=== PATIENT | male | born 1945 | race Caucasian/White ===

== ENCOUNTER → 2018-03-08 09:41 | Outpatient (CLI) | payer MEDICARE, OTHER, SELFPAY | PROVIDERS: Family Provider Family Medicine; PCP Family Medicine; Visit Provider Family Medicine | DX: Z01.818 Encounter for other preprocedural examination (principal); R94.31 Abnormal electrocardiogram [ECG] [EKG] | CPT/HCPCS: 93017; 93350; J7030; A4216 ==

== ENCOUNTER 2024-10-08 12:24 | Inpatient (IN) | payer MEDICARE, SELFPAY ==
[2024-10-08 12:48] VITALS: BP 148/86; PULSE 72; RESP 14; TEMP 36.4; O2SAT 99; BMI 27.1
[2024-10-08 14:30] VITALS: PULSE 72; RESP 18; O2SAT 99
--- NOTE | 2024-10-08 14:59 | NURSING ---
Discussed follow-up appts with resident and Barbara. He thinks family will be able to take him to Cardiac Device check on 10/20/24 in [place]. He has virtual f/u with surgeon Monserrat ratliff on 10/23/24, and needs xray completed before. RN called office and they are ok with having xray completed on TCU and faxing report to office the day before. . He then has EGD with stent insertion planned for 10/29/24 with surgeon Ratliff at [facility]. He believes his dtr will be able to transport. He requested rheumatology appt be cancelled. RN called and cancelled.
--- NOTE | 2024-10-08 16:13 | CASEMGMT ---
Social Work- SW met with pt to complete initial assessment. SW introduced self and role; pt agreeable to meeting. Pt property underwriter, Barbara, present in the room; pt agreeable to Barbara being present. SW verified contacts. Pt confirmed code status. Pt reports good family support and shared that he has a dog at home that he is very close to as well. Pt lives in a ranch home with a cement ramp and plans to return home at discharge. Pt was independent at prior level of function. Pt reports previous involvement with [facility] through an agency in [place] 6+ years ago following knee surgery and would be open to HHC if needed at discharge. Pt scored 14/15 on BIMS assessment. Pt scored 1/2 on PHQ9, reporting that he has felt down about how weak he has become while in the hospital. SW remains available to follow for support and discharge planning needs. LILIYA Apodaca
[2024-10-08] MEDS: Rivaroxaban 20 MG Tablet GT (16:26)
[2024-10-08] MEDS: Jevity 1.5 1,000 ML 100 ML GT (16:39)
[2024-10-08 16:54] LABS: Bedside Glucose 119 mg/dL (74-106)
--- NOTE | 2024-10-08 19:09 | HP.PCM_ITS ---
HPI - General General Date of Admission: 10/08/24 Date of Service: 10/08/24 Chief Complaint: Here for rehabilitation. HPI Narrative 09/26/2024 Admit to [facility]. 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 Patient underwent ANTONIETTA intraoperatively. Postoperatively had a chest X-ray performed demonstrating possible pneumomediastinum. He had noncontrasted CT chest demonstrating pneumomediastinum. Patient had a CT chest with IV and PO contrast demonstrating a perforation at the posterior aspect of the GEJ concerning for esophageal perforation/injury. He underwent EGD with esophageal stent placement 150 x 23 distal end at 40cm and PET tube placement on 09/27/2024. 09/30/2024: transferred to [facility]. Self removal of NGT. Na 146. 10/01/2024: IR consulted for G-J conversion. Na 148. 10/02/2024: IR G-J conversion completed. Unsuccessful attempt at TF initiation 08/03 equipment. Na 151-D5 water ordered for mIVF. 10/03/2024: tube feeds initiated. Na 153. Over his hospitalization patient was kept NPO with enteral fees at goal via PEG/J extension, plan to convert feeds to 16 hour cycle on discharge. He will remain NPO after discharge with occasional ice chips and mouth swabs. ATB: Converted to liquid regimen of Fluconazole and Augmentin on discharge for total course of 14 days. 10/06/2024 NAEO. Hypernatremia resolved with free water flushes via J tube. NPO for esophageal perforation. Continue Zosyn, Fluconazole for emperic coverage. Protonix 40mg daily. TF increase to 65mL/hour as tolerated. Tylenol, Gabapentin 1200mg tid, Lidoderm, Voltaren gel, Dilaudid for low back pain. Home Xarelto for DVT prophylaxis. 10/08/2024 Admit to TCU with debility, here for rehabilitation, strengthening, prior to discharge home with SO. [facility] Medical History (Updated 10/08/24 @ 19:[address] Cristopher [place] MD) GERD (gastroesophageal reflux disease) Kidney stone BPH (benign prostatic hyperplasia) 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 with hyperglycemia Obstructive sleep apnea Hyperlipidemia, unspecified Essential (primary) hypertension HFrEF (heart failure with reduced ejection fraction) Sick sinus syndrome Atrial fibrillation Pneumomediastinum Esophageal perforation Debility Home Medications ?Medication ?Instructions ?Recorded ?Last Taken ?Type acetaminophen 160 mg/5 mL oral 640 mg feeding tube Q4H PRN pain 10/08/24 Unknown History elixir (scale score 1-3) amoxicillin 200 mg-potassium 22 ml feeding tube Q12H a ntibiotic 10/08/24 Unknown History clavulanate 28.5 mg/5 mL oral suspension docusate sodium 50 mg/5 mL oral 100 mg feeding tube BI D stool 10/08/24 Unknown History liquid softener esomeprazole magnesium 20 mg 40 mg feeding tube DAILY reflux 10/08/24 Unknown History capsule,delayed release (Nexium) fluconazole 40 mg/mL oral 400 mg feeding tube Q24H fun gal 10/08/24 Unknown History suspension (Diflucan) infection lidocaine 4 % topical patch 1 patch topical Q12H pain 10/08/24 Unknown History morphine 20 mg/5 mL (4 mg/mL) oral 5 mg feeding tube Q 4H PRN pain 10/08/24 Unknown History solution (scale score 7-10) rivaroxaban 20 mg tablet (Xarelto) 20 mg G-tube DAILY blood thinner 10/08/24 Unknown History Allergy/AdvReac Type Severity Reaction Status Date / Time No Known Allergies Allergy Verified 10/08/24 14:09 Family History (Updated 10/08/24 @ 19:[address] Cristopher Washington MD) Mother CVA (cerebral vascular accident) Father Diabetes Sister Diabetes Brother Myocardial infarction Brother CAD (coronary artery disease) Brother Kidney disease Brother Diabetes Surgical History (Updated 10/08/24 @ 19:[address] Cristopher Washington MD) History of electrophysiologic study History of exam under anesthesia with epidural steroid injection Status post biventricular cardiac pacemaker insertion Social History (Updated 10/08/24 @ 19:[address] Cristopher Washington MD) household members: significant other Smoking Status: Never smoker alcohol intake: never substance use type: does not use ROS Constitutional Constitutional: Reports weakness; Denies chills, fever(s) or weight gain ENT HEENT: Denies headache(s), nasal congestion or nasal discharge Cardiovascular Cardiovascular: Denies chest pain or palpitations Respiratory/Chest Respiratory/Chest: Denies cough, excessive phlegm production or shortness of breath with exertion Gastrointestinal Gastrointestinal: Denies abdominal pain, nausea or vomiting Genitourinary Genitourinary: Denies dysuria Musculoskeletal Musculoskeletal: Denies joint pain or joint swelling Integumentary Integumentary: Denies rash or wounds Neurologic Neurologic: Denies focal weakness, numbness or tingling Psychiatric Psychiatric: Denies anxiety, auditory hallucinations, depression, homicidal idea tion or suicidal ideation Vital Signs Vital Signs Vital Signs: 10/08/24 12:48 10/08/24 14:30 Temperature 97.5 F L Temperature Source Oral Pulse Rate 72 72 Pulse Rhythm Irregular Pulse Strength Normal (2+) Respiratory Rate 14 18 Respiratory Effort Normal Non-Labored Respiratory Depth Normal Respiratory Pattern Normal Blood Pressure 148/86 H Blood Pressure Mean 106 Blood Pressure Source Monitor Blood Pressure Position Semi-Fowlers Blood Pressure Location Right Arm Pulse Ox 99 99 Oxygen Delivery Method Room Air Room Air Weight Weight: 95.793 kg Body Mass Index (BMI) 27.1 Physical Exam Const alert General Appearance: cooperative HEENT normocephalic Eyes PERRL and EOMs intact bilaterally Neck supple, no JVD and no carotid bruits Resp normal respiratory effort, normal air movement and clear to auscultation bilaterally Cardio regular rate and regular rhythm GI normal to inspection, nondistended, normoactive bowel sounds, non-tender and non-distended GI Narrative: G-J tube present, left upper abdomen. Extremity normal capillary refill General Extremity: Negative for edema Skin no rashes or lesions noted General Skin Exam: no breakdown Psych affect normal Appearance: appropriate Results Medical Records Data Medical Nutrition Assessment Dietitian: Malnutrition Criteria Met Start: 10/08/24 14:45 Freq: Status: Active Protocol: Document 10/08/24 14:45 SLA (Rec: 10/08/24 14:45 SLA [email or web address]) Nutrition Malnutrition Evidence of Yes Malnutrition Exists Malnutrition (severe Acute Illness/Injury ): Evidenced By Suboptimal Energy Intake (Severe),Weight Loss (Severe) Clinical Problem Acute Disease or Injury Related Malnutrition Etiology related to esophageal perforation and inability to take oral nutrition since 09/26/24 Signs/Symptoms as evidenced by need for PEG and EN support to meet est nutritional needs Status Active Problem Recommendation Dietitian Continue TF: Jevity 1.5 x 16 hrs / night (4p-8a) w/ 100 Recommendations/ ml water flush every 4 hours. Changes Will continue to follow and monitor labs, wt, tf tolerance, etc for changes in res nutritional status and make additional rec as indicated Lab / Micro Data Labs: Laboratory Results - last 24 hr 10/08/24 16:37: POC Glucose 119 H Assessment & Plan Assessment/Plan (1) Debility: (2) Status post biventricular cardiac pacemaker insertion: (3) Esophageal perforation: (4) Pneumomediastinum: (5) Atrial fibrillation: (6) Sick sinus syndrome: (7) HFrEF (heart failure with reduced ejection fraction): (8) Essential (primary) hypertension: (9) Hyperlipidemia, unspecified: (10) Obstructive sleep apnea: (11) 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 with hyperglycemia: (12) BPH (benign prostatic hyperplasia): (13) Kidney stone: (14) GERD (gastroesophageal reflux disease): PLAN: Plan 79 year old male with below past medical history hospitalized for TV pace extraction with 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 * Debility - PT/OT. * G-J tube - ST. * Pain - Tylenol 650mg q4 prn pain (1-3), Morphine 5mg q4 prn pain (7-10), Lidoderm 1 patch td daily. * Bowel - Colace 100mg bid, Magnesium citrate 300mL daily prn. * Adult immunization - Administer pneumonia vaccine, covid vaccine, flu vaccine as appropriate. * DVT prophylaxis - on Xarelto. * Esophageal perforation s/p esophageal stent - will removal +/- replacement in near future. * Pneumomediastinum - Augmentin 800mg bid thru 10/12/2024, Fluconazole 40mg daily thru 10/13/2024. * Nutrition - Jevity 1.5 100mL/hour. * GERD - Lansoprazole 30mg daily. * Skin irritation - Calmoseptine topical bid. * Dry eyes - Artificial tears 2gtt ou q1 prn. * Atrial fibrillation - Xarelto 20mg daily.
--- NOTE | 2024-10-08 22:00 | NURSING ---
Addendum entered by Gali Wilcox 10/08/24 23:08: New orders from Dr. Washington for D5 1/2 normal saline at 75mL/hr IV, IV start, and consult to general surgery in the morning for a malfunctioning GJ tube. Continue blood glucose testing Q6HR. VORB. Original Note: Patient's gown observed to be soaked with tube feed. Upon assessment, split gauze surrounding GJ tube saturated with tube feed. Attempted to flush with water, GJ tube flushed easily, unable to determine location of leakage. Unable to draw back residual. Patient tolerated flush well, denied any discomfort. Notified Dr. Washington via secure text followed by telephone call. New orders for STAT KUB to determine proper placement of GJ tube, and page with results. VORB. Patient updated on plan of care, verbalized understanding. Call light in reach, patient denies additional needs at this time.
--- NOTE | 2024-10-08 22:13 | RAD_ITS ---
PROCEDURE: ABDOMEN SINGLE VIEW 10/08/2024 REASON FOR EXAM: CONFIRM PLACEMENT OF GJ TUBE TECHNIQUE: Single view abdomen. COMPARISON: None FINDINGS: There is a percutaneous gastrojejunostomy tube in place and appears slightly kinked at its mid section. Otherwise appears to be in normal position.. Air-filled prominent but nondilated colonic loops. Large colonic stool. RAD/Abdomen Single View IMPRESSION: See above Reading Location: [facility]
[2024-10-08 22:57] LABS: Bedside Glucose 138 mg/dL (74-106)
[2024-10-08] MEDS: Dext 5%-0.45% NS 1,000 ML 75 ML IV (23:21)
[2024-10-08] MEDS: Menthol/Lanolin/Calamine/Znox 113 GM Tube 1 APPLIC TOPICAL (23:32)
[2024-10-09 06:12] LABS: Bedside Glucose 188 mg/dL (74-106)
[2024-10-09 06:39] LABS: Absolute Lymphocyte Count 2.24 X10^3/uL (0.83-4.51); Absolute Neutrophil Count 7.8 X10^3/uL (2.0-7.7); Basophil# 0.09 X10^3/uL; Basophil% 0.8 % (0-1); Eosinophil# 0.23 X10^3/uL; Hematocrit 42.2 % (40-54); Hemoglobin 13.4 g/dL (13.0-16.5); Lymphocyte # 2.24 X10^3/ul (0.83-4.51); Lymphocyte % 19.9 % (19-41); Mean Corp Hgb Conc 31.8 g/dL (32-36); Mean Corpuscular Hgb 31.2 pg (27.0-32.0); Mean Corpuscular Volume 98.4 fL (80-94); Mean Platelet Vol. 11.4 fl (6.2-12.0); Monocyte# 0.76 X10^3/uL; Monocyte% 6.8 % (0-10); NRBC Flagged by Analyzer 0 % (0-5); Neutrophil % 69.5 % (47-70); Platelet Count 245 K/mm3 (150-450); RBC Distribution Width CV 15.5 % (11.6-14.6); Red Blood Count 4.29 M/mm3 (4.6-6.2); White Blood Count 11.2 K/mm3 (4.4-11.0)
[2024-10-09 06:59] LABS: Anion Gap 10 (5-15); BUN 11 mg/dL (4-19); BUN/Creat Ratio 13.9 RATIO (10-20); Calcium,Total 8.6 mg/dL (7.6-11.0); Carbon Dioxide 25.2 mmol/L (21.0-32.0); Chloride 105 mmol/L (98-108); Creatinine, Serum 0.77 mg/dL (0.70-1.20); EST Glomerular Filtration Rate 90 (>60); Glucose 155 mg/dL (70-99); Potassium 3.9 mmol/L (3.3-5.1); Sodium Level 140 mmol/L (133-145)
--- NOTE | 2024-10-09 07:35 | NURSING ---
Addendum entered by Chelsea Ragsdale 10/09/24 12:03: 1020- [employer] Worker would not page Dr. Khoury as he's not already following resident. Updated Dr. Khoury of situation via text. Awaiting reply. Addendum entered by Chelsea Ragsdale 10/09/24 10:16: Tube feedings restarted. Tube feeding leaking out around where smaller tube comes out of larger tube. There is a zip tie around tubes near the bumper. Updated Dr. Jones, he states he would not replace tube, resident would have to go back to . Did say maybe Dr. Khoury would be willing to change. Updated Dr. Washington of above, order to consult Dr. Khoury. Addendum entered by Chelsea Ragsdale 10/09/24 08:16: Dr. Jones came by and tightened external bumper to between 3 and 4cm on tube. He said to go ahead and try tube feeding. RN upated Dr. Washington and jewelry cutter Erin. Per Telecommunication Engineer go ahead and start tube feeds now and run for 16 hrs, then go back to regular schedule tomorrow. Per Dr. Washington, if tube feeding running ok, stop IVF. Original Note: Called consult to Dr. Jones for leaking feeding tube. Explained situation and background, discussed xray that was completed. He states he will come up and take a look.
--- NOTE | 2024-10-09 08:15 | CON.PCM.SX_ITS ---
Assessment & Plan Assessment/Plan (1) PEG tube malfunction: PLAN: The patient has a GJ tube in place. It appears that the patient has a G- tube in place with a J-tube going through it that is up tied to it. I cinched the bumper down a little bit to see if this would tighten the bumper in the stomach and prevent leaking. I asked the nurse to call me if he still leaks during today's tube feed. Landry Jones MD Pager: [facility] [address] [place] [address], [address] [place] [address] Office: HPI Consult Data Date of Consult: 10/09/24 HPI Narrative HPI Narrative: ROCIO SANDOVAL, is a 79 M who presents after esophageal perforation with a G- tube that is leaking. [facility] Medical History (Updated 10/09/24 @ 08:[address] Landry Jones MD) GERD (gastroesophageal reflux disease) Kidney stone BPH (benign prostatic hyperplasia) 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 with hyperglycemia Obstructive sleep apnea Hyperlipidemia, unspecified Essential (primary) hypertension HFrEF (heart failure with reduced ejection fraction) Sick sinus syndrome Atrial fibrillation Pneumomediastinum Esophageal perforation Debility Home Medications ?Medication ?Instructions ?Recorded ?Last Taken ?Type acetaminophen 160 mg/5 mL oral 640 mg feeding tube Q4H PRN pain 10/08/24 Unknown History elixir (scale score 1-3) amoxicillin 200 mg-potassium 22 ml feeding tube Q12H a ntibiotic 10/08/24 Unknown History clavulanate 28.5 mg/5 mL oral suspension docusate sodium 50 mg/5 mL oral 100 mg feeding tube BI D stool 10/08/24 Unknown History liquid softener esomeprazole magnesium 20 mg 40 mg feeding tube DAILY reflux 10/08/24 Unknown History capsule,delayed release (Nexium) fluconazole 40 mg/mL oral 400 mg feeding tube Q24H fun gal 10/08/24 Unknown History suspension (Diflucan) infection lidocaine 4 % topical patch 1 patch topical Q12H pain 10/08/24 Unknown History morphine 20 mg/5 mL (4 mg/mL) oral 5 mg feeding tube Q 4H PRN pain 10/08/24 Unknown History solution (scale score 7-10) rivaroxaban 20 mg tablet (Xarelto) 20 mg G-tube DAILY blood thinner 10/08/24 Unknown History Allergy/AdvReac Type Severity Reaction Status Date / Time No Known Allergies Allergy Verified 10/08/24 14:09 Family History (Updated 10/08/24 @ 19:[address] Cristopher Washington MD) Mother CVA (cerebral vascular accident) Father Diabetes Sister Diabetes Brother Myocardial infarction Brother CAD (coronary artery disease) Brother Kidney disease Brother Diabetes Surgical History (Updated 10/08/24 @ 19:[address] Cristopher Washington MD) History of electrophysiologic study History of exam under anesthesia with epidural steroid injection Status post biventricular cardiac pacemaker insertion Social History (Updated 10/08/24 @ 19:[address] Cristopher Washington MD) household members: significant other Smoking Status: Never smoker alcohol intake: never substance use type: does not use ROS Constitutional Constitutional: Denies anorexia, chills or fatigue Eyes Eyes: Denies blurry vision ENT HEENT: Denies abnormal hearing Gastrointestinal Gastrointestinal: Denies abdominal pain, nausea or vomiting Genitourinary Genitourinary: Denies change in urinary stream Integumentary Integumentary: Denies jaundice Neurologic Neurologic: Denies abnormal gait Psychiatric Psychiatric: Denies anxiety Endocrine Endocrinology: Denies flushing Physical Exam Const alert and oriented x3 HEENT normocephalic Head and Scalp: normal to inspection Eyes PERRL Resp normal respiratory effort Cardio Rate: regular rate Rhythm: regular rhythm GI soft to palpation Inspection: Negative for abdominal distention Palpation: Negative for tender Extremity normal to inspection Neuro CN's II-XII intact bilaterally Medical Records Data Medical Nutrition Assessment Dietitian: Malnutrition Criteria Met Start: 10/08/24 14:45 Freq: Status: Active Protocol: Document 10/08/24 14:45 SLA (Rec: 10/08/24 14:45 SLA [email or web address]) Nutrition Malnutrition Evidence of Yes Malnutrition Exists Malnutrition (severe Acute Illness/Injury ): Evidenced By Suboptimal Energy Intake (Severe),Weight Loss (Severe) Clinical Problem Acute Disease or Injury Related Malnutrition Etiology related to esophageal perforation and inability to take oral nutrition since 09/26/24 Signs/Symptoms as evidenced by need for PEG and EN support to meet est nutritional needs Status Active Problem Recommendation Dietitian Continue TF: Jevity 1.5 x 16 hrs / night (4p-8a) w/ 100 Recommendations/ ml water flush every 4 hours. Changes Will continue to follow and monitor labs, wt, tf tolerance, etc for changes in res nutritional status and make additional rec as indicated Lab / Micro Data 10/09/24 05:10 10/09/24 05:10 Labs: Laboratory Results - last 24 hr 10/08/24 16:37: POC Glucose 119 H 10/08/24 22:38: POC Glucose 138 H 10/09/24 05:10: WBC 11.2 H, RBC 4.29 L, Hgb 13.4, Hct 42.2, MCV 98.4 H, MCH 31.2, MCHC 31.8 L, RDW Std Deviation 55.0 H, RDW Coeff of Helen 15.5 H, Plt Count 245, MPV 11.4, Immature Gran % (Auto) 1.000 H, Neut % (Auto) 69.5, Lymph % (Auto) 19.9, [place] % (Auto) 6.8, Eos % (Auto) 2.0, Baso % (Auto) 0.8, Absolute Neuts (auto) 7.8 H, Absolute Lymphs (auto) 2.24, Nucleated RBC % 0, Sodium 140, Potassium 3.9, Chloride 105, Carbon Dioxide 25.2, Anion Gap 10, BUN 11, Creatinine 0.77, Estim Creat Clear Calc 84.20, Est GFR (MDRD) Non-Af 90, BUN/Creatinine Ratio 13.9, Glucose 155 H, Calcium 8.6 10/09/24 05:39: POC Glucose 188 H Imaging Radiology Impression KUB X-Ray 10/08/24 22:13 IMPRESSION: See above Reading Location: [facility]
[2024-10-09] MEDS: Jevity 1.5 1,000 ML 100 ML GT (08:29)
--- NOTE | 2024-10-09 08:41 | NS ---
10/09/24: Call from RN on TCU. States pt's feeding tube was leaking last night and tube feeds were held and pt didn't receive much. RN asking about starting enteral nutrition a 08:00 and running it for 16 hours so that pt gets some nourishment. Will plan to resume regular schedule for enteral nutrition tomorrow. RDN in agreement. Erin Molina RDN, LD
--- NOTE | 2024-10-09 10:07 | NURSING ---
FOUND PEG TUBE LEAKING AT WHERE THE SMALL TUBE MEETS THE LARGE TUBING. TURNED TUBE FEED OFF AND CLAMPED TUBE FEED TUBING CALLED RN TO ROOM. CLEANED PT UP WITH NURSE SUPERVISOR HELP. RN NOTIFYING DOCTORS. WILL CONTINUE TO MONITOR. FAMILY AWARE.
[2024-10-09] MEDS: 0.9% Saline Lock 10 ML Syringe IV (10:30)
[2024-10-09] MEDS: Menthol/Lanolin/Calamine/Znox 113 GM Tube 1 APPLIC TOPICAL ×2 (10:32→21:01)
[2024-10-09] MEDS: Lidocaine 5% Patch 1 PATCH TOPICAL (10:32)
--- NOTE | 2024-10-09 10:44 | NURSING ---
PER DUE NOT GIVE PT HIS MEDICATION DUE TO PT PEG TUBE IS LEAKING AND MAY NOT BE ABLE TO GET THEM THRU. RN AWARE. UPDATED PT AND FAMILY.
--- NOTE | 2024-10-09 11:16 | PHA.CONS_ITS ---
TCU RX Drug Regimen Review Subjective/Objective Subjective/Objective Subjective: 79 YOM admitted to an outside facility for pacer extraction. Hospitalization was complicated by a pneumomediastinum and a esophageal perforation. This ultimately resulted in the patient requiring J-tube placement and tube feeds. Patient admitted to TCU 10/08/24 for rehabilitation and strengthening prior to discharge home where he resides with his spouse. Objective: Allergies No Known Allergies Allergy (Verified 10/08/24 14:09) Current Medications Generic Name Dose Route Start Last Admin Trade Name Freq PRN Reason Stop Dose Admin Acetaminophen 650 mg 10/08/24 14:27 Acetaminophen 650 Mg/20 Ml Udc GT Q4H PRN PAIN 1-3 Amoxicillin/Clavulanate Potassium 800 mg 10/08/24 22:00 10/09/24 10:43 Amox/Clav 400mg/5ml Susp GT 10/12/24 22:01 Not Given BID ALENA Calamine/Phenol 1 applic 10/08/24 22:00 10/09/24 10:32 Menthol/Lanolin/Calamine/Znox 113 Gm Tube TOPICAL 1 applic BID ALENA Administration Protocol Docusate Sodium 100 mg 10/08/24 22:00 10/09/24 10:43 Docusate Sodium 100 Mg/10 Ml Udc GT Not Given BID ALENA Fluconazole 400 mg 10/09/24 10:00 10/09/24 10:43 Fluconazole Suspension 40 Mg/Ml 35 Ml Bottle GT 10/13/24 10:01 Not Given DAILY ALENA Glycerin/Hypromellose/Polyethylene 2 drp 10/08/24 12:57 Glycerin/Hypromellose/Qlt126 15 Ml Bottle EACH EYE Q1H PRN DRY EYES Enteral Nutritional Formula 1,000 mls @ 100 mls/hr 10/08/24 16:00 10/09/24 10:29 Jevity 1.5 GT 0 mls/hr .Q10H ALENA Infusion Dextrose/Sodium Chloride 1,000 mls @ 75 mls/hr 10/08/24 22:40 10/09/24 10:30 IV 75 mls/hr .[id number] ALENA Infusion Lansoprazole 30 mg 10/09/24 10:00 10/09/24 10:44 Lansoprazole 15 Mg Capsule.Dr NG Not Given DAILY ALENA Lidocaine 1 patch 10/09/24 10:00 10/09/24 10:32 Lidocaine 5% Patch TOPICAL 1 patch DAILY ALENA Administration Magnesium Citrate 300 ml 10/08/24 14:10 Magnesium Citrate 300 Ml GT X1 PRN Constipation Morphine Sulfate 5 mg 10/08/24 14:29 Morphine (Oral Solution) 10mg/0.5ml Syringe PO Q4H PRN pain (scale score 7-10) Rivaroxaban 20 mg 10/08/24 17:00 10/08/24 16:26 Rivaroxaban 20 Mg Tablet GT 20 mg DINNER ALENA Administration Sodium Chloride 10 - 40 ml 10/08/24 13:59 10/09/24 10:30 0.9% Saline Lock 10 Ml Syringe IV 10 ml UD PRN Administration SALINE FLUSH Sodium Chloride 10 - 40 ml 10/08/24 22:38 0.9% Saline Lock 10 Ml Syringe IV UD PRN SALINE FLUSH Tuberculin PPD 0.1 ml 10/16/24 10:00 Tuberculin,Purif.Prot.Deriv. 50 Tu/Ml Vial ID 10/16/24 10:01 X1 ONE Problem List PEG tube malfunction (Acute) GERD (gastroesophageal reflux disease) (Acute) Kidney stone (Acute) BPH (benign prostatic hyperplasia) (Acute) 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 with hyperglycemia (Acute) Obstructive sleep apnea (Acute) Hyperlipidemia, unspecified (Acute) Essential (primary) hypertension (Acute) HFrEF (heart failure with reduced ejection fraction) (Acute) Sick sinus syndrome (Acute) Atrial fibrillation (Acute) Pneumomediastinum (Acute) Esophageal perforation (Acute) Status post biventricular cardiac pacemaker insertion (Acute) Debility (Acute) Vital Signs Temp Pulse Resp BP Pulse Ox O2 Del Method 97.5 F L 72 18 148/86 H 99 Room Air 10/08/24 12:48 10/08/24 14:30 10/08/24 14:30 10/08/24 12:48 10/08/24 14:30 10/08/24 14:30 Oxygen Delivery Method Room Air Weight: 95.793 kg Body Mass Index (BMI) 27.1 Sodium 140 mmol/L (133-145) 10/09/24 05:10 Potassium 3.9 mmol/L (3.3-5.1) 10/09/24 05:10 Chloride 105 mmol/L (98-108) 10/09/24 05:10 Carbon Dioxide 25.2 mmol/L (21.0-32.0) 10/09/24 05:10 Anion Gap 10 (5-15) 10/09/24 05:10 BUN 11 mg/dL (4-19) 10/09/24 05:10 Creatinine 0.77 mg/dL (0.70-1.20) 10/09/24 05:10 Est GFR (MDRD) Non-Af 90 (>60) 10/09/24 05:10 BUN/Creatinine Ratio 13.9 RATIO (10-20) 10/09/24 05:10 Glucose 155 mg/dL (70-99) H 10/09/24 05:10 Assessment/Plan: 1. Pain: Lidocaine patch topically Daily, Acetaminophen 650mg GT Q4h PRN Pain 1- 10, Morphine solution 5mg PO Q4h PRN Pain 7-10. Please continue to monitor for local site irritation/redness, PRN medication usage, oversedation/constipation/respiratory depression with narcotic usage. - To date, the patient has not required any PRN medication doses of Tylenol or morphine. Patient's pain appears managed at this time. 2. Pneumomediastinum: Augmentin 800mg GT BID thru 10/12/24, Fluconazole 400mg GT daily thru 10/13/24. Please continue to monitor for fever (last 97.5, afebrile), N/V, diarrhea, renal function (CrCl 84 mL/min on 10/09), headache. 3. GERD: Prevacid 30mg GT Daily. Please continue to monitor for headache, bloating, gas. Please also encourage non-pharmacologic treatments to help minimze GERD flareups, thank you. 4. Atrial Fibrillation: Xarelto 20mg GT Dinner. Please continue to monitor for S/S bleeding/bruising, H/H (hgb 13.4, Hct 42.2 on 10/09). The patient is not currently on any rate/rhythm control medications. Per external med history, the patient had recently filled Lopressor 25mg PO Daily. Please continue to monitor closely and consider adding medication if clinically needed/appropriate, thank you (last BP 148/86, pulse 72 BPM). 5. Dry Eyes: Artificial Tears 2 gtt OU PRN. Please continue to monitor for medication effectiveness. 6. Skin Integrity: Calmoseptine topically BID. Please continue to monitor for skin redness, irritation, ulcer formation. 7. Bowel: Docusate 100mg GT BID, Magnesium Citrate 300mL GT x1 PRN. Please continue to monitor for increased/decreased constipation and/or diarrhea. If diarrhea develops, please discontinue scheduled medications. - The patient has not had a documented BM since admission (<24hrs ago). If the patient does not have a BM in the next 48-72hrs, please consider administering PRN m Assessment/Plan for indications treated with psychotropic medications: -The patient is not being maintained on any psychotropic medications at time of medication list review. Medical chart and medication regimen reviewed. The following medication irregularities or issues were identified: 1. Atrial Fibrillation: The patient is not currently on any rate/rhythm control medications. Per external med history, the patient had recently filled Lopressor 25mg PO Daily. Please continue to monitor closely and consider adding medication if clinically needed/appropriate, thank you (last BP 148/86, pulse 72 BPM). Date Date of Note: 10/09/24
--- NOTE | 2024-10-09 11:59 | NURSING ---
SSE GIVEN PER ORDER WITH POSITIVE RESULTS OF A LARGE LIQUID/SOFT BM.
[2024-10-09 12:16] LABS: Bedside Glucose 155 mg/dL (74-106)
--- NOTE | 2024-10-09 12:30 | NURSING ---
Campus Administrative Assistant Note; Activity Asset: Brennen Dwyer prefers to be called Zacarias. Zacarias is independent in his choice of daily activities. His lady friend will visit and bring him items from home if he wants them. At this time he is fine with the tv and reading. Zacarias enjoys talking w/others, he not a latter-day person however maybe talking w/implementation project manager could help. He welcomes visits w/therapy dog as well. Staff will remind him of weekly activities and respect his right to say no.
[2024-10-09 13:30] VITALS: PULSE 81; RESP 16; O2SAT 93
--- NOTE | 2024-10-09 13:32 | NURSING ---
Addendum entered by Chelsea Ragsdale 10/09/24 15:15: On phone Dr. Washington gave verbal order that if xray looks ok to re-start tube feeding at 50cc/hr, titrate up if not leaking. Updated on xray results, order to re-start feeds. Original Note: Updated Dr. Washington resident awaiting GI consult. In the meantime he gave verbal order for KUB with gastrografin to assess tube placement.
--- NOTE | 2024-10-09 13:40 | RAD_ITS ---
EXAM: XR Abdomen, 1 View CLINICAL INDICATION: PLEASE USE GASTROGRAFIN TO ASSESS GJ TUBE PLACEMEN TECHNIQUE: Frontal supine view of the abdomen/pelvis. COMPARISON: No relevant prior studies available. FINDINGS: GASTROINTESTINAL TRACT: Unremarkable. No dilation. BONES/JOINTS: Unremarkable. No acute fracture. TUBES, LINES AND DEVICES: No gastric outlet obstruction. No contrast extravasation. G-tube appears to be proper position. RAD/Abdomen Single View IMPRESSION: No gastric outlet obstruction. No contrast extravasation. G-tube appears to b e proper position. Reading [facility] [place]
[2024-10-09] MEDS: Dext 5%-0.45% NS 1,000 ML 75 ML IV (14:48)
[2024-10-09] MEDS: Tuberculin,Purif.prot.deriv. 50 TU/ML Vial 0.1 ML ID (15:10)
--- NOTE | 2024-10-09 15:18 | NURSING ---
FAMILY AND PT UPDATED ON TEST RESULTS AND THE OK TO START TUBE FEED BACK UP TO 50ML/HR. RN AWARE
[2024-10-09] MEDS: Acetaminophen 650 MG/20 ML UDC GT (16:59)
[2024-10-09] MEDS: Rivaroxaban 20 MG Tablet GT (17:01)
--- NOTE | 2024-10-09 17:24 | NURSING ---
IN PT ROOM TO CHECK ON TUBE FEEDING AND GIVE MEDS. RUNNING AT 50 ML/HR NO LEAKS AT THIS TIME. 0 RESIDUAL. MEDS GIVEN DOWN TUBE WITH NO PROBLEM. PT TOLERATED WELL WILL CONTINUE TO MONITOR. WILL LEAVE MESSAGE FOR TON SILVERMAN ON TODAYS EVENTS AND THAT PT DAUGHTER STATED PT TUB FEEDING WAS RUNNING AT 65 ML/HR AT [facility]. RN AND AWARE.
--- NOTE | 2024-10-09 17:35 | NURSING ---
PER INCREASE TUBE FEED/FLUSH TO 65ML/HR. RN AWARE WILL CONTINUE TO MONITOR.
[2024-10-09 18:06] LABS: Bedside Glucose 205 mg/dL (74-106)
--- NOTE | 2024-10-09 18:09 | EX.PCM.CON.G ---
HPI Consult Data Date of Consult: 10/09/24 HPI Narrative Reason for Consultation: Problem with tube feedings HPI Narrative: ROCIO SANDOVAL, is a 79 gentleman in rehab. 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 Patient underwent ANTONIETTA intraoperatively. Postoperatively had a chest X-ray performed demonstrating possible pneumomediastinum. He had noncontrasted CT chest demonstrating pneumomediastinum. Patient had a CT chest with IV and PO contrast demonstrating a perforation at the posterior aspect of the GEJ concerning for esophageal perforation/injury. He underwent EGD with esophageal stent placement 150 x 23 distal end at 40cm and PET tube placement on 09/27/2024. Over his hospitalization patient was kept NPO with enteral fees at goal via PEG/J extension, plan to convert feeds to 16 hour cycle on discharge. There was some question of whether his PEG -J-tube was acting appropriately. He underwent a KUB with injection of Gastrografin through the tube: RAD/Abdomen Single View IMPRESSION: No gastric outlet obstruction. No contrast extravasation. G-tube appears to be proper position. [facility] Medical History GERD (gastroesophageal reflux disease) Kidney stone BPH (benign prostatic hyperplasia) 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 with hyperglycemia Obstructive sleep apnea Hyperlipidemia, unspecified Essential (primary) hypertension HFrEF (heart failure with reduced ejection fraction) Sick sinus syndrome Atrial fibrillation Pneumomediastinum Esophageal perforation Debility Home Medications ?Medication ?Instructions ?Recorded ?Last Taken ?Type acetaminophen 160 mg/5 mL oral 640 mg feeding tube Q4H PRN pain 10/08/24 Unknown History elixir (scale score 1-3) amoxicillin 200 mg-potassium 22 ml feeding tube Q12H antibiotic 10/08/24 Unknown History clavulanate 28.5 mg/5 mL oral suspension docusate sodium 50 mg/5 mL oral 100 mg feeding tube BID stool 10/08/24 Unknown History liquid softener esomeprazole magnesium 20 mg 40 mg feeding tube DAILY reflux 10/08/24 Unknown History capsule,delayed release (Nexium) fluconazole 40 mg/mL oral 400 mg feeding tube Q24H fungal 10/08/24 Unknown History suspension (Diflucan) infection lidocaine 4 % topical patch 1 patch topical Q12H pain 10/08/24 Unknown History morphine 20 mg/5 mL (4 mg/mL) oral 5 mg feeding tube Q4H PRN pain 10/08/24 Unknown History solution (scale score 7-10) rivaroxaban 20 mg tablet (Xarelto) 20 mg G-tube DAILY blood thinner 10/08/24 Unknown History Allergy/AdvReac Type Severity Reaction Status Date / Time No Known Allergies Allergy Verified 10/08/24 14:09 Family History Mother CVA (cerebral vascular accident) Father Diabetes Sister Diabetes Brother Myocardial infarction Brother CAD (coronary artery disease) Brother Kidney disease Brother Diabetes Surgical History History of electrophysiologic study History of exam under anesthesia with epidural steroid injection Status post biventricular cardiac pacemaker insertion Social History household members: significant other Smoking Status: Never smoker alcohol intake: never substance use type: does not use ROS Constitutional Constitutional: Denies anorexia, chills or fatigue Eyes Eyes: Denies blurry vision ENT HEENT: Denies abnormal hearing Gastrointestinal Gastrointestinal: Denies abdominal pain, nausea or vomiting Genitourinary Genitourinary: Denies change in urinary stream Integumentary Integumentary: Denies jaundice Neurologic Neurologic: Denies abnormal gait Psychiatric Psychiatric: Denies anxiety Endocrine Endocrinology: Denies flushing Physical Exam Const alert and oriented x3 HEENT normocephalic Head and Scalp: normal to inspection Eyes PERRL Resp normal respiratory effort Cardio Rate: regular rate Rhythm: regular rhythm GI soft to palpation Inspection: Negative for abdominal distention Palpation: Negative for tender Extremity normal to inspection Neuro CN's II-XII intact bilaterally Medical Records Data Medical Nutrition Assessment Dietitian: Malnutrition Criteria Met Start: 10/08/24 14:45 Freq: Status: Active Protocol: Document 10/08/24 14:45 SLA (Rec: 10/08/24 14:45 SLA [id number]) Nutrition Malnutrition Evidence of Yes Malnutrition Exists Malnutrition (severe Acute Illness/Injury ): Evidenced By Suboptimal Energy Intake (Severe),Weight Loss (Severe) Clinical Problem Acute Disease or Injury Related Malnutrition Etiology related to esophageal perforation and inability to take oral nutrition since 09/26/24 Signs/Symptoms as evidenced by need for PEG and EN support to meet est nutritional needs Status Active Problem Recommendation Dietitian Continue TF: Jevity 1.5 x 16 hrs / night (4p-8a) w/ 100 Recommendations/ ml water flush every 4 hours. Changes Will continue to follow and monitor labs, wt, tf tolerance, etc for changes in res nutritional status and make additional rec as indicated Lab / Micro Data 10/09/24 05:10 10/09/24 05:10 Labs: Laboratory Results - last 24 hr 10/08/24 22:38: POC Glucose 138 H 10/09/24 05:10: WBC 11.2 H, RBC 4.29 L, Hgb 13.4, Hct 42.2, MCV 98.4 H, MCH 31.2, MCHC 31.8 L, RDW Std Deviation 55.0 H, RDW Coeff of Helen 15.5 H, Plt Count 245, MPV 11.4, Immature Gran % (Auto) 1.000 H, Neut % (Auto) 69.5, Lymph % (Auto) 19.9, [place] % (Auto) 6.8, Eos % (Auto) 2.0, Baso % (Auto) 0.8, Absolute Neuts (auto) 7.8 H, Absolute Lymphs (auto) 2.24, Nucleated RBC % 0, Sodium 140, Potassium 3.9, Chloride 105, Carbon Dioxide 25.2, Anion Gap 10, BUN 11, Creatinine 0.77, Estim Creat Clear Calc 84.20, Est GFR (MDRD) Non-Af 90, BUN/Creatinine Ratio 13.9, Glucose 155 H, Calcium 8.6 10/09/24 05:39: POC Glucose 188 H 10/09/24 11:59: POC Glucose 155 H 10/09/24 17:47: POC Glucose 205 H Imaging Radiology Impression KUB X-Ray 10/08/24 22:13 IMPRESSION: See above Reading Location: [facility] X-Ray 10/09/24 13:40 IMPRESSION: No gastric outlet obstruction. No contrast extravasation. G-tube appears to be proper position. Reading [facility] Assessment & Plan Assessment/Plan (1) PEG tube malfunction: PLAN: Recommend a CXR and KUB with gastrograffin orally. J tube seems to be functioning well.
--- NOTE | 2024-10-09 18:59 | NURSING ---
Addendum entered by Kamaljit Muniz 10/09/24 19:04: WILL CALL FAMILY AND UPDATE. Original Note: IN TO SEE PT. PLANS ON DOING A CXR/KUB WITH GASTROGRAFIN ORALLY ON 10/10/24 AROUND NOON. PT IS TO BE NPO AT 7AM. RN AWARE.
[2024-10-09] MEDS: Amox/Clav 400mg/5ml Susp 800 MG GT (21:00)
[2024-10-09] MEDS: Docusate Sodium 100 MG/10 ML UDC GT (21:01)
[2024-10-10 00:05] LABS: Bedside Glucose 160 mg/dL (74-106)
[2024-10-10 06:20] LABS: Bedside Glucose 179 mg/dL (74-106)
[2024-10-10] MEDS: Docusate Sodium 100 MG/10 ML UDC GT ×2 (08:56→22:22)
[2024-10-10] MEDS: Fluconazole Suspension 40 MG/ML 35 ML Bottle 400 MG GT (08:59)
[2024-10-10] MEDS: Amox/Clav 400mg/5ml Susp 800 MG GT ×2 (08:59→22:25)
[2024-10-10] MEDS: Lansoprazole 15 MG Capsule.DR 30 MG NG (09:00)
[2024-10-10] MEDS: Menthol/Lanolin/Calamine/Znox 113 GM Tube 1 APPLIC TOPICAL ×2 (09:00→22:24)
[2024-10-10] MEDS: Lidocaine 5% Patch 1 PATCH TOPICAL (09:00)
[2024-10-10 10:00] VITALS: RESP 16
--- NOTE | 2024-10-10 12:29 | NURSING ---
Patient with radiology
--- NOTE | 2024-10-10 12:30 | RAD_ITS ---
EXAM: GASTROGRAFIN ESOPHAGRAM CLINICAL HISTORY: RECENTLY INSERTED ESOPHAGEAL STENT FOLLOWING SURGICAL DEFECT. CHECK FOR PATENCY. COMPARISON: No relevant prior. TECHNIQUE: The patient was instructed to ingest Gastrografin while fluoroscopic evaluation of the esophagus and stomach was performed. Routine series documentation. FINDINGS: A long esophageal wall stent is noted measuring approximately 16 cm in length. There was no evidence of extraluminal extravasation of contrast. Mild delay in passage of Gastrografin through the distal stent positioned just proximal to the esophagogastric junction. Residual contrast is noted in the large bowel from recent PEG tube injection. Marked cardiomegaly. No other significant findings. RAD/Upper GI w/BA Swallow IMPRESSION: Patent esophageal wall stent with no signs of extraluminal extravasation of con trast. Reading Location: [place] [id number]
--- NOTE | 2024-10-10 13:24 | NURSING ---
pt back in room, resting in recliner chair. denies needs. management professional in visiting
[2024-10-10 13:25] LABS: Bedside Glucose 149 mg/dL (74-106)
--- NOTE | 2024-10-10 14:19 | NURSING ---
Addendum entered by Ly Lyle 10/10/24 15:26: spoke with family helper, tube feed orders changed to 300cc boluses if pt does not eat atleast 50% on meals, 100cc water flushes q4hrs. pt and family updated. Addendum entered by Chelsea Ragsdale 10/10/24 14:40: Dr. Washington aware of xray results, verbal order to start on clear liquid diet and advance as tolerated. Original Note: Updated Friend that xray results in and that family/resident would like to speak to him.
--- NOTE | 2024-10-10 14:40 | CHAPLAIN ---
Type of Pastoral Visit _x__ Initial Visit ___ Follow-up Visit ___ On-call Visit ___ General Patient Visit ___ Spiritual Assessment ___ Family Conference ___ Bereavement ___ Rapid Response ___ Code Blue ___ Other (describe below) Pastoral Care Referral From _x__ Patient ___ Family ___ Nurse ___ Physician ___ Sr Risk Management Consultant ___ Music Composer ___ Other (describe below) Sacrament/Intervention _x__ Active listening ___ Anointing ___ Orthodoxy ___ Bereavement ___ Communion _x__ Renetta exploration ___ _x__ Life review _x__ Prayer ___ Reconciliation ___ Sacrament of Sick ___ Supportive presence ___ Wedding ___ Other (describe below) Pastoral Comments patient speaks of his unexpected health issues after a 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 from a surgery; pt has a daughter and his SO in the room at this time; pt gives some life review and states his connection to a local christian; pt welcomes presence and prayer for support
[2024-10-10] MEDS: Pantoprazole Sodium 40 MG in 0.9% Normal Saline (100mL MB+) 100 ML 330 MG IV (15:06)
[2024-10-10] MEDS: 0.9% Saline Lock 10 ML Syringe IV ×2 (15:08→22:57)
[2024-10-10] MEDS: 0.9% Normal Saline (100mL Bag) 100 ML 15 ML IV (15:10)
[2024-10-10 15:21] VITALS: BP 142/70; PULSE 75; RESP 16; TEMP 36.6; O2SAT 100
[2024-10-10 16:48] LABS: Bedside Glucose 160 mg/dL (74-106)
[2024-10-10] MEDS: Rivaroxaban 20 MG Tablet GT (17:43)
--- NOTE | 2024-10-10 18:49 | NURSING ---
pt drank 50% of clear liquids tonight, jevity bolus held. pt assisted to BR x1 assist FWW
--- NOTE | 2024-10-10 19:40 | PCM.PN.BLA ---
Progress Note Patient underwent Gastrografin esophagram today. Physical Exam Const alert and oriented x3 HEENT normocephalic Head and Scalp: normal to inspection Eyes PERRL Resp normal respiratory effort Cardio Rate: regular rate Rhythm: regular rhythm GI soft to palpation Inspection: Negative for abdominal distention Palpation: Negative for tender Extremity normal to inspection Neuro CN's II-XII intact bilaterally Assessment & Plan Assessment/Plan (1) PEG tube malfunction: PLAN: J tube seems to be functioning well. (2) Esophageal perforation: PLAN: FINDINGS: A long esophageal wall stent is noted measuring approximately 16 cm in length. There was no evidence of extraluminal extravasation of contrast. Mild delay in passage of Gastrografin through the distal stent positioned just proximal to the esophagogastric junction. Residual contrast is noted in the large bowel from recent PEG tube injection. Marked cardiomegaly. No other significant findings. RAD/Upper GI w/BA Swallow IMPRESSION: Patent esophageal wall stent with no signs of extraluminal extravasation of contrast. I agree with advancing his diet as tolerated Visit Charges Inpatient E&M: 47246 SNF Subs L3
[2024-10-10 21:19] LABS: Bedside Glucose 124 mg/dL (74-106)
[2024-10-10] MEDS: Acetaminophen 650 MG/20 ML UDC GT (22:22)
[2024-10-10] MEDS: Jevity 1.5. 1,000 ML Bottle 300 ML GT (22:23)
[2024-10-11 06:28] LABS: Bedside Glucose 130 mg/dL (74-106)
[2024-10-11] MEDS: Amox/Clav 400mg/5ml Susp 800 MG GT ×2 (08:49→22:44)
[2024-10-11] MEDS: Docusate Sodium 100 MG/10 ML UDC GT (08:49)
[2024-10-11] MEDS: Lidocaine 5% Patch 1 PATCH TOPICAL (08:49)
[2024-10-11] MEDS: Fluconazole Suspension 40 MG/ML 35 ML Bottle 400 MG GT (08:50)
[2024-10-11] MEDS: Menthol/Lanolin/Calamine/Znox 113 GM Tube 1 APPLIC TOPICAL ×2 (08:50→22:46)
[2024-10-11 09:50] VITALS: BP 114/63; PULSE 73; RESP 17; TEMP 36.4; O2SAT 96
[2024-10-11] MEDS: 0.9% Saline Lock 10 ML Syringe IV ×2 (10:41→23:18)
[2024-10-11] MEDS: Pantoprazole Sodium 40 MG in 0.9% Normal Saline (100mL MB+) 100 ML 330 MG IV (10:41)
[2024-10-11 11:36] LABS: Bedside Glucose 167 mg/dL (74-106)
[2024-10-11] MEDS: Acetaminophen 650 MG/20 ML UDC GT ×2 (15:02→22:47)
[2024-10-11 16:52] LABS: Bedside Glucose 141 mg/dL (74-106)
[2024-10-11] MEDS: Rivaroxaban 20 MG Tablet GT (17:18)
[2024-10-11 21:41] LABS: Bedside Glucose 118 mg/dL (74-106)
[2024-10-11] MEDS: Jevity 1.5. 1,000 ML Bottle 300 ML GT (22:56)
[2024-10-12 06:32] LABS: Bedside Glucose 146 mg/dL (74-106)
--- NOTE | 2024-10-12 08:11 | NURSING ---
Adjunct Professor Of Voice came to this nurse asking if there was something to give patient to help with bowel motility. Dr. Washington updated N.O. received for Raglan 10mg ACHS for 5 days. Order read back.
[2024-10-12] MEDS: Lidocaine 5% Patch 1 PATCH TOPICAL (09:18)
[2024-10-12] MEDS: Amox/Clav 400mg/5ml Susp 800 MG GT ×2 (09:18→21:28)
[2024-10-12] MEDS: Fluconazole Suspension 40 MG/ML 35 ML Bottle 400 MG GT (09:18)
[2024-10-12] MEDS: Menthol/Lanolin/Calamine/Znox 113 GM Tube 1 APPLIC TOPICAL ×2 (09:19→22:09)
[2024-10-12] MEDS: Pantoprazole Sodium 40 MG in 0.9% Normal Saline (100mL MB+) 100 ML 330 MG IV (09:55)
[2024-10-12] MEDS: 0.9% Normal Saline (100mL Bag) 100 ML 330 ML IV (09:56)
[2024-10-12] MEDS: 0.9% Saline Lock 10 ML Syringe IV (09:56)
[2024-10-12 10:04] VITALS: BP 114/63; PULSE 68; RESP 18; TEMP 36.6; O2SAT 98
[2024-10-12] MEDS: Metoclopramide 10 MG/10 ML UDC GT ×3 (11:14→21:28)
[2024-10-12 11:50] LABS: Bedside Glucose 158 mg/dL (74-106)
[2024-10-12] MEDS: Rivaroxaban 20 MG Tablet GT (16:16)
[2024-10-12 16:57] LABS: Bedside Glucose 106 mg/dL (74-106)
[2024-10-12] MEDS: Jevity 1.5. 1,000 ML Bottle 300 ML GT (21:29)
[2024-10-12 22:11] LABS: Bedside Glucose 119 mg/dL (74-106)
[2024-10-13] MEDS: Metoclopramide 10 MG/10 ML UDC GT ×4 (06:03→21:41)
[2024-10-13 06:15] LABS: Bedside Glucose 137 mg/dL (74-106)
--- NOTE | 2024-10-13 08:24 | NURSING ---
Offered covid vaccine, VIS provided. Resident declines at this time.
[2024-10-13 09:39] VITALS: BP 123/59; PULSE 74; RESP 18; TEMP 36.3; O2SAT 98
[2024-10-13] MEDS: Menthol/Lanolin/Calamine/Znox 113 GM Tube 1 APPLIC TOPICAL ×2 (09:39→22:11)
[2024-10-13] MEDS: Lidocaine 5% Patch 1 PATCH TOPICAL (09:40)
[2024-10-13] MEDS: Fluconazole Suspension 40 MG/ML 35 ML Bottle 400 MG GT (09:41)
[2024-10-13] MEDS: Pantoprazole Sodium 40 MG in 0.9% Normal Saline (100mL MB+) 100 ML 333 MG IV (09:43)
[2024-10-13] MEDS: 0.9% Saline Lock 10 ML Syringe IV ×2 (09:44→22:52)
[2024-10-13 11:34] LABS: Bedside Glucose 125 mg/dL (74-106)
[2024-10-13] MEDS: Rivaroxaban 20 MG Tablet GT (16:07)
[2024-10-13 16:48] LABS: Bedside Glucose 103 mg/dL (74-106)
[2024-10-13 21:27] LABS: Bedside Glucose 124 mg/dL (74-106)
[2024-10-13] MEDS: Acetaminophen 650 MG/20 ML UDC GT (22:10)
[2024-10-13] MEDS: Jevity 1.5. 1,000 ML Bottle 300 ML GT (22:10)
[2024-10-14] MEDS: Metoclopramide 10 MG/10 ML UDC GT ×4 (06:16→22:04)
[2024-10-14 06:34] LABS: Bedside Glucose 140 mg/dL (74-106)
[2024-10-14 07:43] VITALS: BP 139/89; PULSE 100; RESP 16; TEMP 36.6; O2SAT 96
[2024-10-14] MEDS: Lidocaine 5% Patch 1 PATCH TOPICAL (09:37)
[2024-10-14] MEDS: Menthol/Lanolin/Calamine/Znox 113 GM Tube 1 APPLIC TOPICAL ×2 (09:37→22:37)
[2024-10-14] MEDS: 0.9% Saline Lock 10 ML Syringe IV (10:02)
[2024-10-14] MEDS: Pantoprazole Sodium 40 MG in 0.9% Normal Saline (100mL MB+) 100 ML 330 MG IV (10:06)
[2024-10-14] MEDS: 0.9% Normal Saline (100mL Bag) 100 ML 15 ML IV (10:28)
--- NOTE | 2024-10-14 10:29 | NURSING ---
Pt diet advanced to regular for lunch, pt willing to try to eat solid foods. starting with chicken noodle soup, sherbert & cranberry juice.
[2024-10-14 11:24] VITALS: BMI 26.3
[2024-10-14 11:26] LABS: Bedside Glucose 129 mg/dL (74-106)
--- NOTE | 2024-10-14 13:49 | NURSING ---
Called and spoke with Dr. Nash's staff to update them on testing done here and that resident tolerating a diet. They will have the nurse give TCU a call.
[2024-10-14 16:40] LABS: Bedside Glucose 125 mg/dL (74-106)
[2024-10-14] MEDS: Rivaroxaban 20 MG Tablet GT (17:45)
--- NOTE | 2024-10-14 18:13 | NURSING ---
OFFICE CALL TO GIVE INSTRUCTIONS FOR PT STENT PROCEDURE ON 10/29/24. HOLD NICKI OCTOBER 26, NPO AT MIDNIGHT 10/28/24. PT HAS TO BE AT [facility] [place] AT 6:30 AM. [DAUGHTER WILL TAKE PT] WHILE TALKING TO THE NURSE OF , WAS IN THE ROOM AND ASKED HOW PT WAS DOING ON THE TUBE FEED. THIS NURSE STATED TO THE DR THAT THE PT WAS EATING A SOFT REGULAR DIET DUE TO COMPLICATIONS WITH THE PEG TUBE LAST WEEK. THE CARLOZ HER VOICE AND YELLED WHY IS THE PT EATING ? DO YOU PEOPLE FOLLOW A PHYSICIANS ORDER? THIS NURSE STATED TO THE PT PEG TUBE WAS LEAKING. YOU ALL STARTED HIM ON 65ML/HR AND OUR DIETARY INCREASED PT TO 100 ML/HR OF JEVITY AND PEG TUBE WAS LEAKING SO WE DECREASED FEED TO 50 ML/HR FOR A FEW HOURS WITH NO LEAKING FROM PEG TUBE WHICH WAS OK'D BY OUR PHYSICIAN ON OUR FLOOR AND THEN HAD US INCREASE IT BACK TO 65 ML/HR. PEG SITE WAS LEAKING SLIGHTLY. WE THEN GOT THE APPROVAL FROM TO DO A KUB AND WOLF FOR HIS EXPERTISE WHO ALSO DOES STENTS AND WITH THE OK FROM THE PT AND FAMILY DID A EGD WITH CONTRAST TO SEE IF HIS ESOPHAGUS WAS LEAKING AND AFTER PROCEDURE IT WAS FOUND NOT TO BE LEAKING AND THE PUT IN ORDER TO ADVANCE DIET TOLERATED BUT CONTINUE TO GIVE THE TUBE FEED AT NIGHT AND CONTINUE TO MONITOR AND PT/FAMILY WAS OK WITH THAT. DR. LINDA STATED WELL ARE YOU GOING TO PUT HIM BACK ON THE TUBE FEED AND ICE CHIPS MY ORDER STATED AND WHY WOULD ANY ONE NOT FOLLOW ORDERS. THIS NURSE STATED TO WE DO FOLLOW ORDERS. BUT WHEN THE PT IS FEELING WEAKER,AND LOSING WEIGHT AND CANT GET THREW THERAPY, NOT GETTING THE PROPER NUTRITION WE DO WHAT'S BEST FOR THE PT AND WHAT THE PT WANTS. THIS NURSE ALSO STATED THAT I WILL TELL THE PT I TALKED TO YOU AND WILL ASK THE PT IF HE WOULD LIKE TO STICK WITH THE DIET OR GO BACK ON THE TUBE FEED AND ICE CHIPS FOR THE NEXT 15 DAYS YOU ORDERED AND LET HIM AND THE FAMILY DECIDE. NO RESPONSE FROM ,HER NURSE STATED OK THEN WE WILL SEE HIM ON 10/29/24 AT 6:30 AM AND WOULD YOU LIKE THE DR'S OFFICE NUMBER. THIS NURSE STATED YES I WOULD. #[phone]. CONVERSATION ENDED. THIS NURSE THEN WENT BACK AND TALKED TO PT AND DAUGHTER WAS ON PHONE,THIS NURSE EXPLAINED EVERY THING AND THE CONVERSATION SHE HAD WITH . DAUGHTER STATED WHAT DO YOU WANT TO DO DAD? PT STATED THAT HE'S REFUSING TO GO BACK ON THE TUBE FEED AND ICE CHIPS CAUSE HE DOESN'T WANT TO GO BACK WARDS. THIS NURSE STATED HE CAN CHANGE HIS MIND AT ANY TIME AND TO LET STAFF KNOW. PT STATED OK, THANK YOU. UPDATED RN AND . WENT TO SEE PT AND GAVE OPTION OF GOING BACK TO FOR PROCEDURE OR HE COULD ASK TO SEE IF HE WOULD DO PROCEDURE. PT STATED HE WOULD LIKE TO GO BACK TO AND WILL ALSO TALK TO HIS DAUGHTER.
[2024-10-14 20:30] VITALS: PULSE 70; O2SAT 98
[2024-10-14] MEDS: Docusate Sodium 100 MG/10 ML UDC GT (22:04)
[2024-10-14] MEDS: Jevity 1.5. 1,000 ML Bottle 300 ML GT (22:07)
[2024-10-15] MEDS: Metoclopramide 10 MG/10 ML UDC GT ×4 (06:11→23:01)
--- NOTE | 2024-10-15 08:10 | NURSING ---
Revenue Manager Note; MDS for 10/15/2024 Complete
[2024-10-15 09:11] VITALS: BP 135/70; PULSE 84
[2024-10-15] MEDS: Metoprolol(XL)Succ 25 MG Tablet 12.5 MG PO (09:11)
[2024-10-15] MEDS: Lidocaine 5% Patch 1 PATCH TOPICAL (09:12)
[2024-10-15] MEDS: Menthol/Lanolin/Calamine/Znox 113 GM Tube 1 APPLIC TOPICAL ×2 (09:13→23:00)
[2024-10-15] MEDS: Docusate Sodium 100 MG/10 ML UDC GT ×2 (09:13→23:00)
[2024-10-15 09:26] VITALS: BP 135/70; PULSE 84; RESP 18; TEMP 36.3; O2SAT 97
--- NOTE | 2024-10-15 09:47 | CASEMGMT ---
Social Work IDT met with patient, SO and dtr for care plan meeting. Discussed patient's progress in PT/OT/SN. Educated to [facility] insurance with NRD 10/20 and continued stay is not guaranteed with each review. Provided pt/family with written communication of insurance process and copay coverage during stay. SW inquired if SO can assist at DC. Though, pt is progressing is well. Pt has new peg tube. See nursing notes for details. SW to assist with ongoing DC planning. Josseline Richardson EMBOSSING TOOLSETTER STUDENT TEACHER
[2024-10-15] MEDS: 0.9% Saline Lock 10 ML Syringe IV ×2 (10:42→23:03)
--- NOTE | 2024-10-15 14:44 | CASEMGMT ---
Social Work SW completed BIMS () and PHQ-2 () for MDS assessment. Josseline Richardson DAY CARE ATTENDANT CLINICAL BIOCHEMIST
[2024-10-15] MEDS: Rivaroxaban 20 MG Tablet GT (16:38)
[2024-10-15 23:00] VITALS: PULSE 72; O2SAT 96
[2024-10-15] MEDS: Jevity 1.5. 1,000 ML Bottle 300 ML GT (23:05)
[2024-10-16] MEDS: Metoclopramide 10 MG/10 ML UDC GT ×4 (06:02→22:54)
[2024-10-16 06:26] LABS: Absolute Lymphocyte Count 2.11 X10^3/uL (0.83-4.51); Absolute Neutrophil Count 5.8 X10^3/uL (2.0-7.7); Basophil# 0.07 X10^3/uL; Basophil% 0.8 % (0-1); Eosinophil# 0.24 X10^3/uL; Eosinophils% 2.7 % (0-5); Hematocrit 40.9 % (40-54); Hemoglobin 13.6 g/dL (13.0-16.5); Lymphocyte # 2.11 X10^3/ul (0.83-4.51); Lymphocyte % 23.3 % (19-41); Mean Corp Hgb Conc 33.3 g/dL (32-36); Mean Corpuscular Hgb 31.7 pg (27.0-32.0); Mean Corpuscular Volume 95.3 fL (80-94); Mean Platelet Vol. 10.5 fl (6.2-12.0); Monocyte# 0.83 X10^3/uL; Monocyte% 9.2 % (0-10); NRBC Flagged by Analyzer 0 % (0-5); Neutrophil # 5.78 X10^3/uL (2.7-7.7); Neutrophil % 63.8 % (47-70); Platelet Count 266 K/mm3 (150-450); RBC Distribution Width CV 14.9 % (11.6-14.6); RBC Distribution Width SD 51.3 fl (35.1-43.9); Red Blood Count 4.29 M/mm3 (4.6-6.2); White Blood Count 9.1 K/mm3 (4.4-11.0)
[2024-10-16 06:38] LABS: Anion Gap 11 (5-15); BUN 11 mg/dL (4-19); BUN/Creat Ratio 14.3 RATIO (10-20); Calcium,Total 9.1 mg/dL (7.6-11.0); Carbon Dioxide 24.8 mmol/L (21.0-32.0); Chloride 100 mmol/L (98-108); Creatinine, Serum 0.75 mg/dL (0.70-1.20); EST Glomerular Filtration Rate 91 (>60); Glucose 139 mg/dL (70-99); Potassium 4.5 mmol/L (3.3-5.1); Sodium Level 136 mmol/L (133-145)
[2024-10-16 09:13] VITALS: BP 141/55; PULSE 88; RESP 16; TEMP 36.3; O2SAT 96
[2024-10-16 09:15] VITALS: PULSE 88
[2024-10-16] MEDS: Metoprolol(XL)Succ 25 MG Tablet 12.5 MG PO (09:15)
[2024-10-16] MEDS: 0.9% Saline Lock 10 ML Syringe IV (09:15)
[2024-10-16] MEDS: Docusate Sodium 100 MG/10 ML UDC GT ×2 (09:16→22:54)
[2024-10-16] MEDS: Lidocaine 5% Patch 1 PATCH TOPICAL (09:16)
[2024-10-16] MEDS: Menthol/Lanolin/Calamine/Znox 113 GM Tube 1 APPLIC TOPICAL ×2 (09:17→22:54)
[2024-10-16] MEDS: Tuberculin,Purif.prot.deriv. 50 TU/ML Vial 0.1 ML ID (10:46)
[2024-10-16] MEDS: Rivaroxaban 20 MG Tablet GT (17:15)
[2024-10-16] MEDS: Acetaminophen 650 MG/20 ML UDC GT (22:54)
[2024-10-16] MEDS: Jevity 1.5. 1,000 ML Bottle 300 ML GT (22:54)
[2024-10-17] MEDS: Metoclopramide 10 MG/10 ML UDC GT (06:54)
[2024-10-17] MEDS: Menthol/Lanolin/Calamine/Znox 113 GM Tube 1 APPLIC TOPICAL ×2 (08:26→22:19)
[2024-10-17 08:27] VITALS: BP 145/80; PULSE 78
[2024-10-17] MEDS: Metoprolol(XL)Succ 25 MG Tablet 12.5 MG PO (08:27)
[2024-10-17] MEDS: Docusate Sodium 100 MG Capsule PO ×2 (08:30→22:18)
[2024-10-17 08:34] VITALS: BP 145/80; PULSE 80; RESP 18; TEMP 36.6; O2SAT 96
[2024-10-17] MEDS: Metoclopramide 10 MG/10 ML UDC PO ×3 (10:09→22:18)
[2024-10-17] MEDS: Lidocaine 5% Patch 1 PATCH TOPICAL (10:09)
[2024-10-17] MEDS: BACITRACIN 15 GM Tube 1 APPLIC TOPICAL ×2 (14:57→22:18)
[2024-10-17] MEDS: Rivaroxaban 20 MG Tablet PO (16:46)
[2024-10-17] MEDS: Jevity 1.5. 1,000 ML Bottle 300 ML GT (22:18)
[2024-10-18] MEDS: Metoclopramide 10 MG/10 ML UDC PO ×4 (05:36→22:05)
[2024-10-18] MEDS: BACITRACIN 15 GM Tube 1 APPLIC TOPICAL ×3 (05:38→22:06)
[2024-10-18 05:45] VITALS: PULSE 73; O2SAT 95
[2024-10-18] MEDS: Lidocaine 5% Patch 1 PATCH TOPICAL (09:06)
[2024-10-18] MEDS: Menthol/Lanolin/Calamine/Znox 113 GM Tube 1 APPLIC TOPICAL ×2 (09:06→22:05)
[2024-10-18] MEDS: Docusate Sodium 100 MG Capsule PO ×2 (09:06→22:05)
[2024-10-18 09:07] VITALS: PULSE 69
[2024-10-18] MEDS: Metoprolol(XL)Succ 25 MG Tablet 12.5 MG PO (09:07)
[2024-10-18] MEDS: Magnesium Citrate 300 ML PO (09:32)
[2024-10-18 09:49] VITALS: BP 125/64; PULSE 69; RESP 16; TEMP 36.3; O2SAT 95
--- NOTE | 2024-10-18 10:12 | NURSING ---
N.O. per Dr. Washington for Melatonin 10mg HS, for insomnia.
[2024-10-18] MEDS: Rivaroxaban 20 MG Tablet PO (16:53)
[2024-10-18] MEDS: MELATONIN 10 MG TABLET PO (22:05)
[2024-10-18] MEDS: Jevity 1.5. 1,000 ML Bottle 300 ML GT (22:13)
[2024-10-19] MEDS: BACITRACIN 15 GM Tube 1 APPLIC TOPICAL ×3 (06:11→21:48)
[2024-10-19] MEDS: Metoclopramide 10 MG/10 ML UDC PO ×4 (06:12→21:52)
[2024-10-19 09:30] VITALS: PULSE 75
[2024-10-19] MEDS: Metoprolol(XL)Succ 25 MG Tablet 12.5 MG PO (09:30)
[2024-10-19] MEDS: Lidocaine 5% Patch 1 PATCH TOPICAL (09:30)
[2024-10-19] MEDS: Docusate Sodium 100 MG Capsule PO ×2 (09:30→21:49)
[2024-10-19] MEDS: Menthol/Lanolin/Calamine/Znox 113 GM Tube 1 APPLIC TOPICAL ×2 (09:31→21:48)
[2024-10-19 10:13] VITALS: BP 121/63; PULSE 75; RESP 18; TEMP 36.6; O2SAT 96
--- NOTE | 2024-10-19 11:25 | NURSING ---
Pt. c/o abdominal pain and discomfort. This nurse assessed abdomen. Bowel Sounds active x4 quadrants, abdomen firm x4 quadrants, and tenderness to upper quadrants. Split gauze changed around GJ tube. Yellow/Green drainage noted on gauze. Dr. Washington updated on this nurses findings. N.O. to culture drainage around GJ tube insertion site, schedule Barium Swallow study, and order CT scan of Abdomen and Pelvis with contrast.
--- NOTE | 2024-10-19 11:30 | NURSING ---
This nurse called insurance company to get precertification for CT scan. Unable to get precertification due to company closure on this day.
[2024-10-19] MEDS: Pantoprazole Sodium 40 MG Tablet PO ×2 (11:49→21:49)
[2024-10-19] MEDS: Sucralfate 1 GM Tablet PO ×2 (16:56→21:49)
[2024-10-19] MEDS: Rivaroxaban 20 MG Tablet PO (16:56)
[2024-10-19] MEDS: MELATONIN 10 MG TABLET PO (21:49)
[2024-10-19] MEDS: Acetaminophen 325 MG Tablet 650 MG PO (22:06)
[2024-10-20] MEDS: Acetaminophen 325 MG Tablet 650 MG PO (05:00)
[2024-10-20] MEDS: BACITRACIN 15 GM Tube 1 APPLIC TOPICAL ×3 (05:20→21:18)
--- NOTE | 2024-10-20 08:15 | NURSING ---
pt off unit to xray at this x via WC
--- NOTE | 2024-10-20 08:20 | RAD_ITS ---
PROCEDURE: ABDOMEN SINGLE VIEW 10/20/2024 REASON FOR EXAM: CONSTIPATION. TECHNIQUE: Single view abdomen. COMPARISON: Comparison is made with prior study dated October 08, 2024. FINDINGS: Bowel gas: Moderate constipation identified with fecal material distributed throughout the colon. No evidence of bowel obstruction. A pigtail catheter is seen within the distal body of the stomach. Esophageal stent is seen. Calcifications: No suspicious calcifications. Bones: There are degenerative changes of the spine. Other: RAD/Abdomen Single View IMPRESSION: Large amount of fecal material is seen in the colon. A pigtail catheter seen with the tip in the distal stomach. Esophageal stent i s also visualized. Reading Location: [facility]
--- NOTE | 2024-10-20 08:30 | RAD_ITS ---
PROCEDURE: UPPER GI W/BA SWALLOW10/20/2024 REASON FOR EXAM: ABDOMINAL PAIN AND DISCOMFORT Esophageal stent. TECHNIQUE: History of prior perforation of the esophagus. CONTRAST: Gastrografin and water. Fluoroscopy: 95 seconds 14.9 mGy. One or more dose reduction techniques were used (e.g., Automated exposure control, adjustment of the mA and/or kV according to patient size, use of iterative reconstruction technique). COMPARISON: Comparison is made with prior study dated October 10, 2024. FINDINGS: The patient ingested Gastrografin. There is evidence of an indwelling Wallstent involving the mid and distal esophagus. The stent is patent. No evidence of extravasation. The patient ingested a 12 mm tablet the barium. The tablet is trapped at the gastroesophageal junction. Contrast is seen within the stomach. RAD/Upper GI w/BA Swallow IMPRESSION: Stable examination. Reading Location: [place] [address]
--- NOTE | 2024-10-20 10:21 | NURSING ---
pt LT abdomen distended, pt not feeling well or eating well. KUB & barium swallow done this AM. KUB showing pt constipated, SSE given per order. PO lactulose ordered as well, but pt going to pacer check today at 2p. holding off on lactulose d/t f/u appt today, will give on return from appt today. pt on toilet at this time, will monitor for good results. Dr Khoury updated on pt changing mind wanting him to replace/or remove esophageal stent, pt changed mind about going back to [facility]. Dr Khoury agreeable.
--- NOTE | 2024-10-20 10:30 | MDS.RN ---
Information for the MDS was obtained from review of the clinical record, interview of resident, staff, and direct observation of resident?s care.
--- NOTE | 2024-10-20 10:39 | NURSING ---
Clarified with Dr. Khoury that resident ok to eat today, no procedure. He also states he will be ok removing stent, will need to see what size stent in place.
[2024-10-20 10:58] VITALS: BP 101/58; PULSE 80; RESP 15; TEMP 36.3; O2SAT 97
[2024-10-20] MEDS: Lidocaine 5% Patch 1 PATCH TOPICAL (11:01)
[2024-10-20 11:03] VITALS: PULSE 80
[2024-10-20] MEDS: Pantoprazole Sodium 40 MG Tablet PO ×2 (11:03→21:22)
[2024-10-20] MEDS: Metoprolol(XL)Succ 25 MG Tablet 12.5 MG PO (11:03)
[2024-10-20] MEDS: Metoclopramide 10 MG/10 ML UDC PO ×3 (11:04→21:20)
[2024-10-20] MEDS: Menthol/Lanolin/Calamine/Znox 113 GM Tube 1 APPLIC TOPICAL ×2 (11:05→21:16)
--- NOTE | 2024-10-20 12:06 | NURSING ---
Clinical info faxed to [employer] in attempt to receive auth for abdomen/pelvis CT scan w/ contrast. Scan approved, auth #[id number].
--- NOTE | 2024-10-20 13:18 | NURSING ---
daughter here to take pt to [facility] for pacer check appt. pt refusing any medications at this time will catch him up when back.
[2024-10-20] MEDS: Sucralfate 1 GM Tablet PO ×3 (13:20→21:20)
--- NOTE | 2024-10-20 13:36 | NURSING ---
pt off unit to appt via WC, daughter transporting
--- NOTE | 2024-10-20 16:25 | NURSING ---
pt returned from appt
[2024-10-20] MEDS: Lactulose 20 GM/30 ML UDC PO (16:39)
[2024-10-20] MEDS: Rivaroxaban 20 MG Tablet PO (16:40)
--- NOTE | 2024-10-20 16:54 | NURSING ---
pt starting on contrast bottle one at this time for CT of Abdomen/pelvis tongiht at 8pm. pt unable to drink nulytely at this time.
--- NOTE | 2024-10-20 17:56 | NURSING ---
pt starting on 2nd bottle of contrast at this time
--- NOTE | 2024-10-20 18:24 | PCM.PN.BLA ---
Progress Note I was asked to see this patient for esophageal stent removal. He has been eating without any problems with esophageal stent placement. Physical Exam Const alert and oriented x3 HEENT normocephalic Head and Scalp: normal to inspection Eyes PERRL Resp normal respiratory effort Cardio Rate: regular rate Rhythm: regular rhythm GI soft to palpation Inspection: Negative for abdominal distention Palpation: Negative for tender Extremity normal to inspection Neuro CN's II-XII intact bilaterally Assessment & Plan Assessment/Plan (1) PEG tube malfunction: PLAN: J tube seems to be functioning well. (2) Esophageal perforation: PLAN: I will see what esophageal stents we have available to see if he can be removed and replaced if needed. N.p.o. past midnight. Visit Charges Inpatient E&M: [id number] [facility] Subs L3
[2024-10-20] MEDS: Electrolyte Solution/Peg's 4000 ML 1000 ML GT (21:18)
[2024-10-20] MEDS: Senna/Docusate Sodium 1 Tablet 2 TABLET PO (21:20)
[2024-10-20] MEDS: MELATONIN 10 MG TABLET PO (21:23)
[2024-10-21] MEDS: Metoclopramide 10 MG/10 ML UDC PO ×3 (06:05→21:39)
[2024-10-21] MEDS: Sucralfate 1 GM Tablet PO ×3 (06:05→21:37)
[2024-10-21] MEDS: BACITRACIN 15 GM Tube 1 APPLIC TOPICAL ×3 (06:06→21:34)
[2024-10-21] MEDS: 0.9% Saline Lock 10 ML Syringe IV ×2 (06:10→21:41)
--- NOTE | 2024-10-21 07:43 | RAD_ITS ---
EXAM: XR Abdomen, 1 View CLINICAL INDICATION: CONSTIPATION, EPIGASTRIC ABDOMINAL PAIN. TECHNIQUE: Frontal supine view of the abdomen/pelvis. COMPARISON: No relevant prior studies available. FINDINGS: GASTROINTESTINAL TRACT: Contrast is in the colon. No dilation. BONES/JOINTS: Unremarkable. No acute fracture. TUBES, LINES AND DEVICES: Probable G-tube. RAD/Abdomen Single View IMPRESSION: Nonobstructive bowel gas pattern. Reading Location: [facility]
[2024-10-21 09:42] VITALS: BMI 26.0
--- NOTE | 2024-10-21 10:37 | NURSING ---
Spoke with Corin at Dr. Nash's office. Updated her that resident getting egd and stent removed here, she can DC future appts with them. She said she should pass that along to the nurse and if they have any questions or need clarification they will call TCU.
[2024-10-21 10:38] VITALS: BP 129/77; PULSE 72; RESP 18; TEMP 36.4; O2SAT 94
[2024-10-21 13:30] VITALS: PULSE 62; RESP 18; O2SAT 92
[2024-10-21 14:01] VITALS: BP 133/70; PULSE 79
[2024-10-21] MEDS: Metoprolol(XL)Succ 25 MG Tablet 12.5 MG PO (14:01)
[2024-10-21] MEDS: Magnesium Citrate 300 ML PO (14:10)
--- NOTE | 2024-10-21 14:15 | NURSING ---
PT PROCEDURE WITH WAS CANCELED TODAY. PT WILL NOW HAVE EGD WITH TOMORROW 10/22/24. PER PT IS ON CLEAR LIQUIDS TILL MIDNIGHT AND THEN WILL BE NPO TILL AFTER SURGERY. OK TO GIVE HEART AND BP MEDS 10/22/24. RN AWARE
[2024-10-21] MEDS: Menthol/Lanolin/Calamine/Znox 113 GM Tube 1 APPLIC TOPICAL (21:36)
[2024-10-21] MEDS: Ciprofloxacin 500 MG Tablet PO (21:38)
[2024-10-21] MEDS: MELATONIN 10 MG TABLET PO (21:38)
[2024-10-21] MEDS: Pantoprazole Sodium 40 MG Tablet PO (21:39)
[2024-10-21] MEDS: Senna/Docusate Sodium 1 Tablet 2 TABLET PO (21:40)
[2024-10-22] MEDS: BACITRACIN 15 GM Tube 1 APPLIC TOPICAL ×2 (05:24→13:39)
[2024-10-22 06:17] VITALS: PULSE 76; O2SAT 97
[2024-10-22 10:20] VITALS: BP 112/66; PULSE 79
[2024-10-22] MEDS: Metoprolol(XL)Succ 25 MG Tablet 12.5 MG PO (10:20)
[2024-10-22 10:23] VITALS: BP 112/66; PULSE 79; RESP 20; TEMP 36.2; O2SAT 98
[2024-10-22] MEDS: 0.9% Saline Lock 10 ML Syringe IV (10:25)
--- NOTE | 2024-10-22 14:23 | NURSING ---
PATIENT LEFT BY BED AT 1410, FOR EGD WITH FRIEND FAMILY BY PATIENTS SIDE.
[2024-10-22] MEDS: Metoclopramide 10 MG/10 ML UDC PO ×2 (18:01→21:39)
[2024-10-22] MEDS: Sucralfate 1 GM Tablet PO ×2 (18:02→21:39)
--- NOTE | 2024-10-22 18:04 | NURSING ---
PT RETURNED TO FLOOR BY BED AT [address] BATISTA. REMOVED PT ESOPHAGUS STENT AND REMOVED THE PEG TUBE. ICE CHIPS TILL 1999 THEN CAN GO TO CLEAR LIQUIDS THREW TOMORROW UNTIL COMES TO SEE PT ON 10/23/24. DRESSING TO MID ABDOMINAL SITE WERE PEG TUBE WAS IS TO STAY ON FOR 2 DAYS THEN CHANGE TO A DRY DRESSING UNTIL HEALED,CHANGE DAILY . NO SHOWER FOR 2 DAYS. PT IS DOING WELL AT THIS TIME,ICE CHIPS GIVEN,FAMILY BY HIS SIDE. WILL CONTINUE TO MONITOR.
[2024-10-22] MEDS: Pantoprazole Sodium 40 MG Tablet PO (21:38)
[2024-10-22] MEDS: Senna/Docusate Sodium 1 Tablet 2 TABLET PO (21:38)
[2024-10-22] MEDS: Ciprofloxacin 500 MG Tablet PO (21:39)
[2024-10-22] MEDS: MELATONIN 10 MG TABLET PO (21:39)
[2024-10-22] MEDS: Menthol/Lanolin/Calamine/Znox 113 GM Tube 1 APPLIC TOPICAL (21:44)
[2024-10-23 05:59] LABS: Absolute Lymphocyte Count 2.27 X10^3/uL (0.83-4.51); Basophil# 0.05 X10^3/uL; Basophil% 0.7 % (0-1); Eosinophil# 0.27 X10^3/uL; Eosinophils% 3.7 % (0-5); Hematocrit 42.8 % (40-54); Lymphocyte # 2.27 X10^3/ul (0.83-4.51); Lymphocyte % 31.4 % (19-41); Mean Corp Hgb Conc 32.7 g/dL (32-36); Mean Corpuscular Hgb 31.9 pg (27.0-32.0); Mean Corpuscular Volume 97.5 fL (80-94); Mean Platelet Vol. 10.3 fl (6.2-12.0); Monocyte# 0.59 X10^3/uL; Monocyte% 8.2 % (0-10); NRBC Flagged by Analyzer 0 % (0-5); Neutrophil # 4.01 X10^3/uL (2.7-7.7); Neutrophil % 55.4 % (47-70); Platelet Count 253 K/mm3 (150-450); RBC Distribution Width CV 14.3 % (11.6-14.6); RBC Distribution Width SD 51.6 fl (35.1-43.9); Red Blood Count 4.39 M/mm3 (4.6-6.2); White Blood Count 7.2 K/mm3 (4.4-11.0)
[2024-10-23] MEDS: Sucralfate 1 GM Tablet PO (06:33)
[2024-10-23] MEDS: Metoclopramide 10 MG/10 ML UDC PO (06:33)
[2024-10-23 06:39] LABS: Anion Gap 11 (5-15); BUN 12 mg/dL (4-19); BUN/Creat Ratio 14.2 RATIO (10-20); Calcium,Total 9.3 mg/dL (7.6-11.0); Carbon Dioxide 26.1 mmol/L (21.0-32.0); Chloride 100 mmol/L (98-108); Creatinine, Serum 0.86 mg/dL (0.70-1.20); EST Glomerular Filtration Rate 87 (>60); Estimated Creatinine Clearance 78.32 ml/min (50-250); Glucose 142 mg/dL (70-99); Potassium 4.6 mmol/L (3.3-5.1); Sodium Level 137 mmol/L (133-145)
[2024-10-23] MEDS: Ciprofloxacin 500 MG Tablet PO ×2 (08:51→21:10)
[2024-10-23] MEDS: Senna/Docusate Sodium 1 Tablet 2 TABLET PO ×2 (08:51→21:10)
[2024-10-23] MEDS: Menthol/Lanolin/Calamine/Znox 113 GM Tube 1 APPLIC TOPICAL ×2 (08:52→21:08)
[2024-10-23 08:54] VITALS: PULSE 72
[2024-10-23] MEDS: Metoprolol(XL)Succ 25 MG Tablet 12.5 MG PO (08:54)
[2024-10-23 09:51] VITALS: BP 127/63; PULSE 72; RESP 17; TEMP 36.4; O2SAT 99
[2024-10-23] MEDS: Rivaroxaban 20 MG Tablet PO (17:09)
[2024-10-23 21:00] VITALS: PULSE 80; O2SAT 96
--- NOTE | 2024-10-23 21:02 | PCM.PN.BLA ---
Progress Note Patient underwent egd with removal of esophageal stent and removal of peg tube. Contrast with fluoroscopy did not reveal any extravasation of contrast in the peritoneum. Physical Exam Const alert, oriented x3, no apparent distress and healthy appearing General Appearance: cooperative GI normal to inspection, nondistended, normoactive bowel sounds, soft to palpation, non-tender and non-distended Percussion: normal to percussion Rectal Exam: deferred Assessment & Plan Assessment/Plan (1) Esophageal perforation: PLAN: Advance diet as tolerated Visit Charges Inpatient E&M: 54777 SNF Subs L3
[2024-10-23] MEDS: 0.9% Saline Lock 10 ML Syringe IV (21:07)
[2024-10-23] MEDS: MELATONIN 10 MG TABLET PO (21:10)
[2024-10-24 06:35] VITALS: PULSE 78; O2SAT 97
[2024-10-24] MEDS: Menthol/Lanolin/Calamine/Znox 113 GM Tube 1 APPLIC TOPICAL ×2 (10:20→20:04)
[2024-10-24] MEDS: Lidocaine 5% Patch 1 PATCH TOPICAL (10:21)
[2024-10-24] MEDS: Ciprofloxacin 500 MG Tablet PO ×2 (10:21→20:08)
[2024-10-24 10:23] VITALS: BP 116/69; PULSE 72
[2024-10-24] MEDS: Metoprolol(XL)Succ 25 MG Tablet 12.5 MG PO (10:23)
[2024-10-24] MEDS: 0.9% Saline Lock 10 ML Syringe IV ×2 (10:29→20:09)
[2024-10-24 10:38] VITALS: BP 116/69; PULSE 72; RESP 18; TEMP 36.1; O2SAT 95
--- NOTE | 2024-10-24 12:34 | CASEMGMT ---
Addendum entered by Josseline Richardson 10/24/24 12:56: Consulted with nursing and pt received EGD during stay and is swallowing well. No needs for ST. Original Note: Social Work Insurance issued LCD 10/26, DC 10/27. SW spoke with pt at bedside. Dtr present as well. SW provided NOMNC to pt and educated to appeal rights. Pt verbalized understanding and denied appeal. Pt is agreeable to DC. Dtr confirmed she and other family/friends will be routinely checking in on pt. SW offered skilled HHC or OP therapy. Pt and dtr prefers OP therapy. SW provided verbal list of options. Pt chose [facility]. SW to place referral for PT/ST. Dtr to transport to [facility] and at [place]. Pt denied DME needs. - Faxed referral to [facility] for OP therapy Plan: DC home 10/27, [facility] outpatient PT/ST Josseline Richardson [employer]CEL[employer] BUILDUP ASSISTANT SOLAR SALES ADVISOR
--- NOTE | 2024-10-24 12:39 | CASEMGMT ---
Social Work SW completed BIMS () and PHQ-9 () for MDS assessment. Pt is looking forward to going home, but mood has declined since admission. Josseline Richardson [employer]
--- NOTE | 2024-10-24 15:19 | DS.PCM_ITS ---
Providers Date of Admission: 10/08/24 Primary Care Physician: Dr. Santi Mercado MD Consultations 10/09/24 08:00 Consult: General Surgery Routine Consulting Provider: Landry Jones Reason for Consult: malfunctioning G-J Tube EMERGENT Consult: No Notified: Yes Date Notified: 10/09/24 Time Notified: 07:40 Method of Notification: Verbal 10/09/24 10:17 Consult: Gastroenterology Routine Consulting Provider: [facility] Reason for Consult: Leaking GJ tube EMERGENT Consult: No Notified: Yes Date Notified: 10/09/24 Time Notified: 10:18 Method of Notification: Text Reason For Visit: ESOPHAGEAL PERFORATION Diagnosis Discharge Diagnosis (1) Esophageal perforation: Status: Acute Code(s): K22.3 - Perforation of esophagus Plan 79 year old male with below past medical history 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 * Debility - PT/OT. * G-J tube - ST. * Pain - Tylenol 650mg q4 prn pain (1-3), Morphine 5mg q4 prn pain (7-10), Lidoderm 1 patch td daily. * Bowel - Colace 100mg bid, Magnesium citrate 300mL daily prn. * Adult immunization - Administer pneumonia vaccine, covid vaccine, flu vaccine as appropriate. * DVT prophylaxis - on Xarelto. * Esophageal perforation s/p esophageal stent - will removal +/- replacement in near future. * Pneumomediastinum - Augmentin 800mg bid thru 10/12/2024, Fluconazole 40mg daily thru 10/13/2024. * Nutrition - Jevity 1.5 100mL/hour. * GERD - Lansoprazole 30mg daily. * Skin irritation - Calmoseptine topical bid. * Dry eyes - Artificial tears 2gtt ou q1 prn. * Atrial fibrillation - Xarelto 20mg daily. Medications at Discharge Home Medications acetaminophen 160 mg/5 mL oral elixir 640 mg feeding tube Q4H PRN pain (scale score 1-3) 10/08/24 amoxicillin 200 mg-potassium clavulanate 28.5 mg/5 mL oral suspension 22 ml feeding tube Q12H antibiotic 10/08/24 docusate sodium 50 mg/5 mL oral liquid 100 mg feeding tube BID stool softener 10/08/24 esomeprazole magnesium 20 mg capsule,delayed release (Nexium) 40 mg feeding tube DAILY reflux 10/08/24 fluconazole 40 mg/mL oral suspension (Diflucan) 400 mg feeding tube Q24H fungal infection 10/08/24 lidocaine 4 % topical patch 1 patch topical Q12H pain 10/08/24 morphine 20 mg/5 mL (4 mg/mL) oral solution 5 mg feeding tube Q4H PRN pain (scale score 7-10) 10/08/24 rivaroxaban 20 mg tablet (Xarelto) 20 mg G-tube DAILY blood thinner 10/08/24 Hospital Course Operations None Procedures EGD Summary of Care Provided Minutes Spent on Discharge: 35 Hospital Course: 79 year old male with below past medical history 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 10/22/2024 Dr. Khoury EGD: Findings: An esophageal stent was found in the entire esophagus. Stent removal was accomplished with a jumbo forceps. Full-strength contrast was injected through the scope and with the use of fluoroscopy no contrast was seen leaking out of the esophagus. No perforation was seen. There was a presence of a large hiatal hernia. There was evidence of an intact gastrostomy with a patent G-tube present in the gastric body. This was characterized by healthy appearing mucosa. The PEG required removal because it was no longer necessary. The PEG was cut externally, grasped, and removed with the scope. Removal was easily accomplished. No gross lesions were noted in the entire examined duodenum. Non-severe esophagitis with no bleeding was found 27 to 37 cm from the incisors. A large hiatal hernia was present. Impression: - Pre-existing esophageal stent, removed. - Intact gastrostomy with a patent G-tube present characterized by healthy appearing mucosa. - No gross lesions in the entire examined duodenum. - The PEG was cut externally, grasped, and removed with the scope because it was no longer necessary. Discharge home 10/27/2024, [facility] outpatient PT/ST. Physical Exam Const alert General Appearance: cooperative HEENT normocephalic Eyes PERRL and EOMs intact bilaterally Neck supple, no JVD and no carotid bruits Resp normal respiratory effort, normal air movement and clear to auscultation bilaterally Cardio regular rate and regular rhythm GI normal to inspection, nondistended, normoactive bowel sounds, non-tender and non-distended Extremity normal capillary refill General Extremity: Negative for edema Skin no rashes or lesions noted General Skin Exam: no breakdown Psych affect normal Appearance: appropriate Medical Records Data Medical Nutrition Assessment Dietitian: Malnutrition Criteria Met Start: 10/08/24 14:45 Freq: Status: Active Protocol: Document 10/22/24 11:33 SLA (Rec: 10/22/24 11:33 SLA [id number]) Nutrition Malnutrition Evidence of Yes Malnutrition Exists Malnutrition (severe Acute Illness/Injury ): Evidenced By Suboptimal Energy Intake (Severe),Weight Loss (Severe) Clinical Problem Acute Disease or Injury Related Malnutrition Etiology related to esophageal perforation and inability to take oral nutrition since 09/26/24 - advanced to regular diet 10/14 w/ avg po intake ~ 50% Signs/Symptoms as evidenced by need for PEG and EN supplemental support to meet est nutritional needs while po diet advanced and res w/ 3% unintended wt loss since adm. Status Active Problem Recommendation Dietitian Continue bolus feeds - if intake <50% then bolus w/ 300 Recommendations/ ml Jevity 1.5 after meals and provide HS feeding of Changes 300 ml Jevity 1.5 to provide 450 hardik/19 gm/ 228 ml free water/bolus feed. Flush w/ 100 ml water after each bolus feed. Continue liberal regular diet w/ and increase to 8 oz glucerna shake and magic cup w/ meals for increased nutrition if consumed. Will continue to follow and monitor labs, wt, tf tolerance, etc for changes in res nutritional status and make additional rec as indicated Weight / BMI Weight Weight: 92.079 kg Body Mass Index (BMI) 26.0 ABG / Lab / Microbiology Data 10/23/24 05:15 10/23/24 05:15 Microbiology: Microbiology 10/19/24 11:00 Exudate Gram Stain - Final 10/19/24 11:00 Exudate Wound Culture - Final Serratia marcescens D/C Instructions Discharge Diet: No restrictions Discharge Activity: Return to Normal Activity, May Shower and Use Walker Weight Bearing Status: Weight bearing as tolerated Call your doctor if you observe: Fever of 101 or Higher, Inability to urinate, Inability to have a bowel movement, Shortness of breath, Dizziness, Fainting spells, Swelling in the ankles, Chest pain and Uncontrolled pain DC O2, CPAP, BIPAP Needs Home O2 Discharge instructions: No Additional Instructions: Discharge home 10/27/2024, [facility] outpatient PT/ST. Please Follow Up With: Cardiac device clinic When: As scheduled. Meaningful Use Info Meaningful Use Meaningful Use Diagnoses (Choose all that apply): None applicable Ischemic Stroke Statin Dosing Therapy Reference: STATIN DOSE THERAPY REFERENCE: * Patients > 75 years receive moderate or high dose statin therapy. * Patients 75 years or YOUNGER should receive HIGH intensity statin dose unless contraindicated. You will be required to document reason for non-treatment if statin daily dose does not meet guidelines. HIGH DOSE STATIN THERAPY DAILY Atorvastatin > than or = to 40 mg Rosuvastatin > than or = to 20 mg Amlodipine + Atorvastatin > than or = to 2.5/40 mg Ezetimibe + Simvastatin 10/80 mg Simvastatin 80mg Discharge Plan Admission Admit Date/Time: 10/08/24 12:24 Primary Reason for Your Visit: Debility. Attending Provider: Cristopher Washington Chi Primary Care Provider: Santi Mercado Consulting Providers: Landry Jones Instructions Additional Instructions / Restrictions: Discharge home 10/27/2024, [facility] outpatient PT/ST. Discharge Orders/Prescriptions Prescriptions: No Action Xarelto 20 mg tablet 20 mg G-tube DAILY acetaminophen 160 mg/5 mL elixir 640 mg feeding tube Q4H PRN (Reason: pain (scale score 1-3)) amoxicillin-pot clavulanate 200-28.5 mg/5 mL suspension for reconstitution 22 ml feeding tube Q12H docusate sodium 50 mg/5 mL liquid 100 mg feeding tube BID esomeprazole magnesium [Nexium] 20 mg capsule,delayed release(DR/EC) 40 mg feeding tube DAILY fluconazole [Diflucan] 40 mg/mL suspension for reconstitution 400 mg feeding tube Q24H lidocaine 4 % adhesive patch,medicated 1 patch topical Q12H morphine 20 mg/5 mL (4 mg/mL) solution 5 mg feeding tube Q4H PRN (Reason: pain (scale score 7-10)) Referrals / Follow Up: Santi Mercado MD [Primary Care Provider] - 10/29/24 11:20 am Disposition Disposition (needs filled in before D/C Order can be placed): Home, Self Care
[2024-10-24] MEDS: Pantoprazole Sodium 40 MG Tablet PO (16:57)
[2024-10-24] MEDS: Rivaroxaban 20 MG Tablet PO (16:58)
--- NOTE | 2024-10-24 18:55 | NURSING ---
CLEANED AND CHANGED PATIENTS DRESSING TO ABDOMINAL PER DOCTORS ORDERS.MODERATE OLD DRAINAGE TO OLD DRESSING. NO S/S OF INFECTION, HEALING WELL. PATIENT TOLERATED WELL
[2024-10-24] MEDS: Senna/Docusate Sodium 1 Tablet 2 TABLET PO (20:08)
[2024-10-24] MEDS: MELATONIN 10 MG TABLET PO (20:08)
[2024-10-25 08:51] VITALS: PULSE 73
[2024-10-25] MEDS: Menthol/Lanolin/Calamine/Znox 113 GM Tube 1 APPLIC TOPICAL (08:51)
[2024-10-25] MEDS: Pantoprazole Sodium 40 MG Tablet PO (08:51)
[2024-10-25] MEDS: Senna/Docusate Sodium 1 Tablet 2 TABLET PO ×2 (08:51→22:09)
[2024-10-25] MEDS: Ciprofloxacin 500 MG Tablet PO ×2 (08:51→22:09)
[2024-10-25] MEDS: Metoprolol(XL)Succ 25 MG Tablet 12.5 MG PO (08:51)
[2024-10-25 09:11] VITALS: BP 113/64; PULSE 73; RESP 16; TEMP 36.7; O2SAT 99
[2024-10-25] MEDS: Rivaroxaban 20 MG Tablet PO (17:13)
[2024-10-25] MEDS: MELATONIN 10 MG TABLET PO (22:10)
[2024-10-26] MEDS: Ciprofloxacin 500 MG Tablet PO ×2 (09:47→20:11)
[2024-10-26] MEDS: Pantoprazole Sodium 40 MG Tablet PO (09:47)
[2024-10-26 09:48] VITALS: BP 112/65; PULSE 72
[2024-10-26] MEDS: Metoprolol(XL)Succ 25 MG Tablet 12.5 MG PO (09:48)
[2024-10-26] MEDS: Senna/Docusate Sodium 1 Tablet 2 TABLET PO ×2 (09:48→20:11)
[2024-10-26] MEDS: Lidocaine 5% Patch 1 PATCH TOPICAL (09:49)
[2024-10-26] MEDS: Menthol/Lanolin/Calamine/Znox 113 GM Tube 1 APPLIC TOPICAL (09:58)
[2024-10-26 10:01] VITALS: BP 112/65; PULSE 72; RESP 18; TEMP 36.3; O2SAT 96
--- NOTE | 2024-10-26 11:43 | NURSING ---
GAVE PT TCU EVALUATION SHEET. PT STATED HOW HAPPY THEY WERE FOR TCU CARE AND THANKED THIS NURSE. PT ALSO STATED HE WAS SORRY FOR HOW THE AT [facility] TREATED THIS NURSE THE ONE DAY AND STATED HE WILL NEVER GO BACK THERE. THIS NURSE STATED IT WAS OK AND THINGS LIKE THAT HAPPEN AND WAS GLAD [facility] HELPED HIM AND GOT HIM BETTER TO D/C.
[2024-10-26] MEDS: Rivaroxaban 20 MG Tablet PO (16:28)
--- NOTE | 2024-10-26 18:28 | NURSING ---
NO BM IN 3 DAYS. PT REFUSED MAG CITRATE. DID AGREE TO PRUNE JUICE AND BUTTER. PT STATED AT HOME HE WILL GO REALLY GOOD FOR A FEW DAYS THEN NOT GO FOR A FEW DAYS. WILL CONTINUE TO MONITOR.
[2024-10-26] MEDS: MELATONIN 10 MG TABLET PO (20:11)
[2024-10-27] MEDS: Magnesium Citrate 300 ML PO (06:03)
[2024-10-27] MEDS: Menthol/Lanolin/Calamine/Znox 113 GM Tube 1 APPLIC TOPICAL (08:46)
[2024-10-27] MEDS: Lidocaine 5% Patch 1 PATCH TOPICAL (08:49)
[2024-10-27 08:50] VITALS: BP 118/62; PULSE 67; RESP 18; TEMP 36.8; O2SAT 98
[2024-10-27] MEDS: Ciprofloxacin 500 MG Tablet PO (08:50)
[2024-10-27 08:51] VITALS: BP 118/62; PULSE 67
[2024-10-27] MEDS: Metoprolol(XL)Succ 25 MG Tablet 12.5 MG PO (08:51)
[2024-10-27] MEDS: Pantoprazole Sodium 40 MG Tablet PO (08:51)
[2024-10-27] MEDS: Senna/Docusate Sodium 1 Tablet 2 TABLET PO (08:51)
== END 2024-10-27 11:25 | disposition home or self-care (01) | DRG 949 ==
PROVIDERS: Admitting Provider Family Medicine Geriatric Medicine; PCP Family Medicine; Referring Provider Family Medicine Geriatric Medicine; Visit Provider Family Medicine Geriatric Medicine
DX: Z48.812 Encounter for surgical aftercare following surgery on the circulatory system (principal); K22.3 Perforation of esophagus; E44.1 Mild protein-calorie malnutrition; I50.22 Chronic systolic (congestive) heart failure; K94.23 Gastrostomy malfunction; I11.0 Hypertensive heart disease with heart failure; J98.2 Interstitial emphysema; E11.65 Type 2 diabetes mellitus with hyperglycemia; I48.91 Unspecified atrial fibrillation; I49.5 Sick sinus syndrome; K21.9 Gastro-esophageal reflux disease without esophagitis; E78.5 Hyperlipidemia, unspecified; G47.33 Obstructive sleep apnea (adult) (pediatric); Z79.01 Long term (current) use of anticoagulants; N40.0 Benign prostatic hyperplasia without lower urinary tract symptoms; N20.0 Calculus of kidney; Z95.0 Presence of cardiac pacemaker; Z79.899 Other long term (current) drug therapy; Z68.26 Body mass index [BMI] 26.0-26.9, adult
CPT/HCPCS: 36415; 74018; 74246; 80048; 82962; 85025; 87070; 87186; 87205; 97110; 97116; 97162; 97166; 97530; 97535; 97802; 97803; A4216

== ENCOUNTER → 2024-10-20 | Outpatient (CLI) | payer MEDICARE, SELFPAY ==
--- NOTE | 2024-10-20 19:26 | CT_ITS ---
PROCEDURE: ABDOMEN/PELVIS WITH CONTRAST 10/20/2024 REASON FOR EXAM: ABDOMINAL RIGIDITY, UNSPECIFIED SITE, UPPER ABDOMINAL PAIN, UNSPE TECHNIQUE: Abdomen and pelvis CT with intravenous contrast. Coronal and Sagittal reconstruction series were provided. PATIENT PREPARATION: Per protocol ORAL CONTRAST TYPE: Gastrografin CONTRAST: 97 cc Isovue-300 IV One or more dose reduction techniques were used (e.g., Automated exposure control, adjustment of the mA and/or kV according to patient size, use of iterative reconstruction technique. RADIATION DOSE SUMMARY: CTDlvol: 29.92 mGy DLP: 1264.13 mGycm FINDINGS: Chronic interstitial changes peripheral aspect of the visualized lungs suggested. Sequela of previous granulomatous disease noted. Multi lead pacemaker noted. Appearance of previous partial distal esophageal resection and partial gastric pull-through, correlate with history. Esophageal stent is present containing air-fluid level at the upper portion. The liver, gallbladder, adrenal glands, kidneys, pancreas and spleen appear within limits. Exophytic cyst upper pole left kidney with possible thin septation. Aortoiliac atherosclerotic changes. No abdominal aortic aneurysm. No adenopathy identified. Percutaneous gastrostomy tube at the epigastrium within the stomach below the diaphragm. No bowel dilation or free air. Normal caliber appendix contains oral contrast without secondary signs. Circumscribed ovoid area of fat pericolonic flat pericolonic fat adjacent to the sigmoid with some areas of calcification may represent sequela of a remote epiploic appendagitis for example axial 118 and sagittal 97. Left larger than right bladder diverticulum. Measuring 3.4 cm on the left and 1.4 cm on the right. The bladder otherwise appears within limits. The prostate appears within limits. No free fluid. Lower lumbar spondylosis/discogenic change. CT/Abdomen/Pelvis WITH Contrast IMPRESSION: No evidence of acute intra-abdominal process. Other findings as above. Reading Location: [id number]
== END | disposition home or self-care (01) ==
PROVIDERS: PCP Family Medicine; Referring Provider Family Medicine Geriatric Medicine; Visit Provider Family Medicine Geriatric Medicine
DX: R10.10 Upper abdominal pain, unspecified (principal); K94.29 Other complications of gastrostomy; R19.30 Abdominal rigidity, unspecified site
CPT/HCPCS: 74177; Q9967

== ENCOUNTER 2024-10-22 14:24 | Day surgery (SDC) | payer MEDICARE, SELFPAY ==
[2024-10-22] VITALS (8 sets, daily range): BP systolic 123–154; BP diastolic 68–88; PULSE 70–73; RESP 16–18; TEMP 36.2–36.6; O2SAT 96–100; BMI 26.0
--- NOTE | 2024-10-22 14:52 | PRE.ANES_ITS ---
ASA Classification* ASA Classification ASA Classification: 3 Assessment & Plan Anesthesia* Anesthesia Assessment Anesthesia Assessment: Discussed sedation and/or anesthesia options, risks, benefits, and alternatives with patient/parents/legal guardian/POA. Questions invited. The patient/parents/legal guardian/POA seems to understand and agrees to proceed with anesthesia plan. Reviewed the physical assessment, medical history, allergy history and patient home medications list prior to surgery/procedure/anesthetic and documented any changes. Performed airway and anesthesia risk assessments. Anesthesia Type Anesthesia Type: MAC (Pacer in place) Anesthesia Focused Assessment* Airway Assessment Mouth opens: >3 cm Mallampati Score: II Focused Labs Anesthesia Preop lab: CBC WBC 9.1 K/mm3 (4.4-11.0) 10/16/24 05:10/16/24 RBC 4.29 M/mm3 (4.6-6.2) L 10/16/24 05:28 10/16/24 Hgb 13.6 g/dL (13.0-16.5) 10/16/24 05:28 10/16/24 Hct 40.9 % (40-54) 10/16/24 05:28 10/16/24 Plt Count 266 K/mm3 (150-450) 10/16/24 05:28 10/16/24 CHEMISTRY Potassium 4.5 mmol/L (3.3-5.1) 10/16/24 05:28 10/16/24 Sodium 136 mmol/L (133-145) 10/16/24 05:28 10/16/24 BUN 11 mg/dL (4-19) 10/16/24 05:28 10/16/24 Creatinine 0.75 mg/dL (0.70-1.20) 10/16/24 05:28 10/16/24 Glucose 139 mg/dL (70-99) H 10/16/24 05:28 10/16/24 POC Glucose 125 mg/dL (74-106) H 10/14/24 16:09 10/14/24 COAG Pre-Assessment Diagnosis/Proposed Procedure Planned Operative Procedure(s): EGD, possible stent placement esophagus Anesthesia History 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 When Was Last Pacemaker Check QUESTION #4 FULL TEXT: You/Your Family Experience fever (hyperthermia) with Anesthesia Last Oral Intake Last Oral intake: Last Oral Intake NPO since Meds taken in AM with sips of water? Meds patient instructed to take am of surgery PONV PONV - plant sciences professor: PONV - plant sciences professor Female HX of Motion Sickness HX of N/V After Surgery Non-Smoker Duration of Surgery greater than 60 minutes Number of Risk Factors PONV Score Height & Weight Height & Weight: Anesthesia: Height & Weight Height 6 ft 2 in 10/15/24 11:41 Respiratory Assessment Respiratory Assessment - plant sciences professor: Respiratory Tract Infection Hx - plant sciences professor Hx Respiratory Tract Infection STOP Sleep Apnea STOP Sleep Apnea - plant sciences professor: STOP Sleep Apnea - plant sciences professor Hx Hypertension Yes 10/09/24 10:58 Hx Sleep Apnea Yes 10/08/24 12:48 CPAP Yes 10/08/24 12:48 BIPAP No 10/08/24 12:48 Do you snore loudly (louder than talking or can be heard Do you often feel tired/ fatigued/ sleepy during daytime? Has anyone observed you stop breathing during sleep? STOP Results QUESTION #5 FULL TEXT : Do you snore loudly (louder than talking or can be heard through closed doors)? 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 Specify any problems Hx of Preganancy in last 3 Months Nurse Filling Out Transfusion & Questions: Date: Time: Patient unable to answer at this time (ie. confused, unrespo /Reproduction History /Reproductive History - plant sciences professor: /Reproductive Hx- plant sciences professor Hx Now Gestational Age (in weeks): EDC: Hx Hx Para Hx Section SAB Active Medications Active Medications: Current Medications Generic Name Dose Route Start Last Admin Trade Name Freq PRN Reason Stop Dose Admin Lactated Ringer's 1,000 mls @ 15 mls/hr 10/22/24 14:45 IV .Q48H ALENA PFSH Medical History GERD (gastroesophageal reflux disease) Kidney stone BPH (benign prostatic hyperplasia) 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 with hyperglycemia Obstructive sleep apnea Hyperlipidemia, unspecified Essential (primary) hypertension HFrEF (heart failure with reduced ejection fraction) Sick sinus syndrome Atrial fibrillation Pneumomediastinum Esophageal perforation Debility Home Medications ?Medication ?Instructions ?Recorded ?Last Taken ?Type acetaminophen 160 mg/5 mL oral 640 mg feeding tube Q4H PRN pain 10/08/24 Unknown History elixir (scale score 1-3) amoxicillin 200 mg-potassium 22 ml feeding tube Q12H a ntibiotic 10/08/24 Unknown History clavulanate 28.5 mg/5 mL oral suspension docusate sodium 50 mg/5 mL oral 100 mg feeding tube BI D stool 10/08/24 Unknown History liquid softener esomeprazole magnesium 20 mg 40 mg feeding tube DAILY reflux 10/08/24 Unknown History capsule,delayed release (Nexium) fluconazole 40 mg/mL oral 400 mg feeding tube Q24H fun gal 10/08/24 Unknown History suspension (Diflucan) infection lidocaine 4 % topical patch 1 patch topical Q12H pain 10/08/24 Unknown History morphine 20 mg/5 mL (4 mg/mL) oral 5 mg feeding tube Q 4H PRN pain 10/08/24 Unknown History solution (scale score 7-10) rivaroxaban 20 mg tablet (Xarelto) 20 mg G-tube DAILY blood thinner 10/08/24 Unknown History Allergy/AdvReac Type Severity Reaction Status Date / Time No Known Allergies Allergy Verified 10/08/24 14:09 Family History Mother CVA (cerebral vascular accident) Father Diabetes Sister Diabetes Brother Myocardial infarction Brother CAD (coronary artery disease) Brother Kidney disease Brother Diabetes Surgical History History of electrophysiologic study History of exam under anesthesia with epidural steroid injection Status post biventricular cardiac pacemaker insertion Social History household members: significant other Smoking Status: Never smoker alcohol intake: never substance use type: does not use Review of Systems (Anesthesia) ROS Narrative System reviewed and no additional complaints, except as documented.
[2024-10-22] MEDS: Lactated Ringers 1,000 ML 15 ML IV (14:59)
[2024-10-22 15:16] LABS: Bedside Glucose 150 mg/dL (74-106)
--- NOTE | 2024-10-22 15:36 | HP.PCM_ITS ---
HPI - General General Date of Admission: 10/22/24 Date of Service: 10/22/24 Chief Complaint: Esophageal stent removal or exchange HPI Narrative \ ROCIO SANDOVAL, is a 79 gentleman in rehab. history of hypertension, HFrEF, ALISHA, Diabetes Mellitus II, sick sinus syndrome who presented for TV pacer extraction with upgrade to JUTE BAG CLIPPER-P biventricular pacer. 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 Patient underwent ANTONIETTA intraoperatively. Postoperatively had a chest X-ray performed demonstrating possible pneumomediastinum. He had noncontrasted CT chest demonstrating pneumomediastinum. Patient had a CT chest with IV and PO contrast demonstrating a perforation at the posterior aspect of the GEJ concerning for esophageal perforation/injury. He underwent EGD with esophageal stent placement 150 x 23 distal end at 40cm and PET tube placement on 09/27/2024. Over his hospitalization patient was kept NPO with enteral fees at goal via PEG/J extension, plan to convert feeds to 16 hour cycle on discharge. There was some question of whether his PEG -J-tube was acting appropriately. He underwent a KUB with injection of Gastrografin through the tube: RAD/Abdomen Single View IMPRESSION: No gastric outlet obstruction. No contrast extravasation. G-tube appears to be proper position. He has been eating for several days and he needs to get his esophageal stent removed or replaced. [facility] Medical History Non-smoker History of pacemaker Diabetes mellitus GERD (gastroesophageal reflux disease) Kidney stone BPH (benign prostatic hyperplasia) 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 with hyperglycemia Obstructive sleep apnea Hyperlipidemia, unspecified Essential (primary) hypertension HFrEF (heart failure with reduced ejection fraction) Sick sinus syndrome Atrial fibrillation Pneumomediastinum Esophageal perforation Debility Home Medications ?Medication ?Instructions ?Recorded ?Last Taken ?Type acetaminophen 160 mg/5 mL oral 640 mg feeding tube Q4H PRN pain 10/08/24 Unknown History elixir (scale score 1-3) amoxicillin 200 mg-potassium 22 ml feeding tube Q12H a ntibiotic 10/08/24 Unknown History clavulanate 28.5 mg/5 mL oral suspension docusate sodium 50 mg/5 mL oral 100 mg feeding tube BI D stool 10/08/24 Unknown History liquid softener esomeprazole magnesium 20 mg 40 mg feeding tube DAILY reflux 10/08/24 Unknown History capsule,delayed release (Nexium) fluconazole 40 mg/mL oral 400 mg feeding tube Q24H fun gal 10/08/24 Unknown History suspension (Diflucan) infection lidocaine 4 % topical patch 1 patch topical Q12H pain 10/08/24 Unknown History morphine 20 mg/5 mL (4 mg/mL) oral 5 mg feeding tube Q 4H PRN pain 10/08/24 Unknown History solution (scale score 7-10) rivaroxaban 20 mg tablet (Xarelto) 20 mg G-tube DAILY blood thinner 10/08/24 Unk nown History Allergy/AdvReac Type Severity Reaction Status Date / Time No Known Allergies Allergy Verified 10/08/24 14:09 Family History Mother CVA (cerebral vascular accident) Father Diabetes Sister Diabetes Brother Myocardial infarction Brother CAD (coronary artery disease) Brother Kidney disease Brother Diabetes Surgical History Hx of detached retina repair History of knee replacement procedure of left knee History of back surgery History of electrophysiologic study History of exam under anesthesia with epidural steroid injection Status post biventricular cardiac pacemaker insertion Social History household members: significant other Smoking Status: Never smoker alcohol intake: never substance use type: does not use ROS Constitutional Constitutional: Denies fatigue, fever(s), poor appetite, weight gain or weight loss Gastrointestinal Gastrointestinal: Denies belching, bloating, change in bowel habits, change in stool character, chewing difficulty, coffee ground emesis, constipation, cramping, diarrhea, dyspepsia, dysphagia, early satiety, excessive flatus, fecal incontinence, heartburn, hematemesis, hematochezia, hemorrhoids, loose stools, melena, nausea, odynophagia, rectal bleeding, tenesmus, vomiting or weight changes Vital Signs Vital Signs Vital Signs: 10/22/24 15:02 10/22/24 15:02 Temperature 97.2 F L Temperature Source Temporal Pulse Rate 73 Respiratory Rate 18 Respiratory Pattern Normal Blood Pressure 143/87 H Blood Pressure Mean 105 Blood Pressure Source Monitor Blood Pressure Position Semi-Fowlers Blood Pressure Location Left Arm Pulse Ox 99 Oxygen Delivery Method Room Air Weight Weight: 203 lb Body Mass Index (BMI) 26.0 Physical Exam Const alert, oriented x3, no apparent distress and healthy appearing General Appearance: cooperative GI normal to inspection, nondistended, normoactive bowel sounds, soft to palpation, non-tender and non-distended Percussion: normal to percussion Rectal Exam: deferred Results Lab / Micro Data Labs: Laboratory Results - last 24 hr 10/22/24 14:56: POC Glucose 150 H Assessment & Plan Assessment/Plan (1) PEG tube malfunction: (2) GERD (gastroesophageal reflux disease): (3) Esophageal perforation: PLAN: He will undergo EGD with evaluation of his esophagus to see if the esophageal stent can be removed and possibly replaced. Will perform a contrast study during the procedure to make sure there is no leaking of contrast. If everything seems to be sealed off very well then we will remove the esophageal stent and possibly remove his PEG tube.
--- NOTE | 2024-10-22 16:25 | RAD_ITS ---
PROCEDURE: FLUOROSCOPY 1 HR OR LESS 10/22/2024 REASON FOR EXAM: Stent replacement, perforation TECHNIQUE: 3 cine loops were submitted containing 6, 137 and 118 images. Total fluoroscopy time was 40 seconds. Peak skin radiation dose was 13.99 mGy. COMPARISON: None FINDINGS: See impression RAD/Fluoroscopy 1 Hr or Less IMPRESSION: Contrast opacification of the esophagus without gross extravasation. See operative report for further details. Reading Location: [facility]
--- NOTE | 2024-10-22 17:03 | PCM.POST.ANE ---
Anesthesia: Postop Eval I Current Vital Signs Temperature: 97.6 F Pulse Rate: 70 Blood Pressure: 123/68 Respiratory Rate: 16 Pulse Ox: 97 Assessment Airway patent: Yes Spontaneous unlabored respirations: Yes nausea: No Vomiting: No Anesthesia Complication: No Fluid Hydration Crystalloid volume administer (ml): 700 Total IV fluid infused: 700 Progress Note Anesthesia document: Postop Eval 1 completed: Yes
--- NOTE | 2024-10-22 17:04 | OP.EGD_ITS ---
Patient Name: Reymundo Calle Procedure Date: 10/22/2024 3:34 PM Date of : 1945 Age: 79 Procedure: Upper GI endoscopy Indications: Remove PEG tube (no longer needed), Stent removal Providers: Jovany Khoury DO Medicines: Monitored Anesthesia Care Patient Profile: This is an 79 year old male. Refer to note in patient chart for documentation of history and physical. Patient has symptoms of acute dysphagia. His most recent EGD for PEG placement and EGD for stent placement was within the past three months. Complications: No immediate 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s. Procedure: Pre-Anesthesia Assessment: - Prior to the procedure, a History and Physical was performed, and patient medications and allergies were reviewed. The patient is competent. The risks and benefits of the procedure and the sedation options and risks were discussed with the patient. All questions were answered and informed consent was obtained. Patient identification and proposed procedure were verified by the physician in the pre-procedure area. Mental Status Examination: alert and oriented. Airway Examination: normal oropharyngeal airway and neck mobility. Respiratory Examination: clear to auscultation. CV Examination: normal. Prophylactic Antibiotics: The patient does not require prophylactic antibiotics. Prior Anticoagulants: The patient has taken no anticoagulant or antiplatelet agents except for NSAID medication. ASA Grade Assessment: II - A patient with mild systemic disease. After reviewing the risks and benefits, the patient was deemed in satisfactory condition to undergo the procedure. The anesthesia plan was to use monitored anesthesia care (MAC). Immediately prior to administration of medications, the patient was re-assessed for adequacy to receive sedatives. The heart rate, respiratory rate, oxygen saturations, blood pressure, adequacy of pulmonary ventilation, and response to care were monitored throughout the procedure. The physical status of the patient was re-assessed after the procedure. After obtaining informed consent, the endoscope was passed under direct vision. Throughout the procedure, the patient's blood pressure, pulse, and oxygen saturations were monitored continuously. The Endoscope was introduced through the mouth, and advanced to the second part of duodenum. The upper GI endoscopy was accomplished without difficulty. The patient tolerated the procedure well. Scope In: 4:34:05 PM Scope Out: 4:53:06 PM Total Procedure Duration Time 0 hours 19 minutes 1 second Findings: An esophageal stent was found in the entire esophagus. Stent removal was accomplished with a jumbo forceps. Full-strength contrast was injected through the scope and with the use of fluoroscopy no contrast was seen leaking out of the esophagus. No perforation was seen. There was a presence of a large hiatal hernia. There was evidence of an intact gastrostomy with a patent G-tube present in the gastric body. This was characterized by healthy appearing mucosa. The PEG required removal because it was no longer necessary. The PEG was cut externally, grasped, and removed with the scope. Removal was easily accomplished. No gross lesions were noted in the entire examined duodenum. Non-severe esophagitis with no bleeding was found 27 to 37 cm from the incisors. A large hiatal hernia was present. Impression: - Pre-existing esophageal stent, removed. - Intact gastrostomy with a patent G-tube present characterized by healthy appearing mucosa. - No gross lesions in the entire examined duodenum. - The PEG was cut externally, grasped, and removed with the scope because it was no longer necessary. Recommendation: - Discharge patient to home. - Full liquid diet today. - Continue present medications. Procedure Code(s): --- Professional --- 72642, Esophagogastroduodenoscopy, flexible, transoral; with removal of foreign body(s) CPT copyright 2021 [employer]. All rights reserved. The codes documented in this report are preliminary and upon spud sorter review may be revised to meet current compliance requirements. Jovany Khoury DO 10/22/2024 5:03:28 PM This report has been signed electronically. Number of Addenda: 0 Note Initiated On: 10/22/2024 3:34 PM
--- NOTE | 2024-10-22 17:04 | OP.CCLET_ITS ---
10/22/2024 Santi Mercado Re : Upper GI endoscopy procedure for Reymundo Calle Dear Rogelio This procedure was performed on Tuesday, October 22, 2024. My impressions and recommendations are as follows: Impressions : - Pre-existing esophageal stent, removed. - Intact gastrostomy with a patent G-tube present characterized by healthy appearing mucosa. - No gross lesions in the entire examined duodenum. - The PEG was cut externally, grasped, and removed with the scope because it was no longer necessary. Recommendations : - Discharge patient to home. - Full liquid diet today. - Continue present medications. My findings are described in the full procedure note, which is enclosed. If I can be of further assistance, please feel free to contact me at . Sincerely, Jovany Khoury, 10/22/2024 5:03:28 PM This report has been signed electronically.
--- NOTE | 2024-10-22 17:31 | POSTOPAN2_ITS ---
Anesthesia Postop Eval I Sum Postop Eval Completion status Anesthesia document: Postop Eval 1 completed: Yes Anesthesia Postop Eval I Summary Anesthesia Postop Eval I Summary: Anesthesia Postop Eval I: Assessment Summary Airway patent Yes 10/22/24 17:03 LONG [email or web address] Spontaneous unlabored Yes 10/22/24 17:03 LONG [email or web address] [email or web address] respirations Mental status nausea No 10/22/24 17:03 LONG [email or web address] Vomiting No 10/22/24 17:03 LONG [email or web address] Anesthesia Postop Eval I: Fluid Summary Crystalloid volume administer 700 10/22/24 17:03 LONG [email or web address] (ml) Colloids volume administered ( ml) Blood Product volume administered (ml) Total IV fluid infused 700 10/22/24 17:03 [email or web address] Anesthesia Postop Eval I: Summary Notes Anesthesia Complication No 10/22/24 17:03 [email or web address] Anesthesia Complication Comment: Post-operative progress note Anesthesia: Postop Eval II Evaluation Mental status: Awake Pain Level: 0 nausea: No Vomiting: No
--- NOTE | 2024-10-22 17:31 | PCM.POSTANE2 ---
Anesthesia Postop Eval I Sum Postop Eval Completion status Anesthesia document: Postop Eval 1 completed: Yes Anesthesia Postop Eval I Summary Anesthesia Postop Eval I Summary: Anesthesia Postop Eval I: Assessment Summary Airway patent Yes 10/22/24 17:03 [email or web address] Spontaneous unlabored Yes 10/22/24 17:03 [email or web address] respirations Mental status nausea No 10/22/24 17:03 [email or web address] Vomiting No 10/22/24 17:03 [email or web address] Anesthesia Postop Eval I: Fluid Summary Crystalloid volume administer 700 10/22/24 17:03 [email or web address] (ml) Colloids volume administered ( ml) Blood Product volume administered (ml) Total IV fluid infused 700 10/22/24 17:03 [email or web address] Anesthesia Postop Eval I: Summary Notes Anesthesia Complication No 10/22/24 17:03 [email or web address] Anesthesia Complication Comment: Post-operative progress note Anesthesia: Postop Eval II Evaluation Mental status: Awake Pain Level: 0 nausea: No Vomiting: No
== END 2024-10-22 17:43 | disposition home or self-care (01) ==
LOC: EN 14:25 → AC 14:25
PROVIDERS: PCP Family Medicine; Referring Provider Family Medicine; Visit Provider Internal Medicine Gastroenterology
PROC: 0DJ08ZZ Inspection of Upper Intestinal Tract, Via Natural or Artificial Opening Endoscopic (ICD-10-PCS; CPT 43235; principal; 2024-10-22 15:40)
DX: Z46.59 Encounter for fitting and adjustment of other gastrointestinal appliance and device (principal); Z93.1 Gastrostomy status; I11.0 Hypertensive heart disease with heart failure; I50.22 Chronic systolic (congestive) heart failure; E11.9 Type 2 diabetes mellitus without 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s; K21.9 Gastro-esophageal reflux disease without esophagitis; E78.5 Hyperlipidemia, unspecified; K22.3 Perforation of esophagus; K44.9 Diaphragmatic hernia without obstruction or gangrene
CPT/HCPCS: 43247; 76000; 82962

== ENCOUNTER 2025-05-18 10:00 | Outpatient (RCR) | payer MEDICARE, SELFPAY ==
--- NOTE | 2025-03-30 12:17 | HP.SP.EV_ITS ---
Visit History Visit Info Date of Eval: 03/26/25 Today is Visit #: 1 [employer] Compliance Specialist: PAULINO History Attending Doctor: Reason for Referral: HOARSENESS/PRESBYLARYNX/ VOICE THERAPY. RX HERE. Date of Onset of Diagnosis: December 2024 Previous speech therapy: No Other Relevant Medical History/Diagnoses/Surgery: The patient is an 79-year-old male presenting with voice disorder. Pt has a history of candidiasis of the tongue, dysphagia, GERD, arthritits, sleep apnea, atrial fibrillation, HTN, and a pacemaker. He underwent a procedure for his pacemaker at , and suffered from an esophageal perforation. An esophageal stent was placed and then removed by Dr. Khoury at [facility] (he was moved from to [facility]). Following this, he reports losing his voice on two separate occasions during participation in events organized by the [employer], where he had to cease speaking unexpectedly. He experienced no associated pain but noted an inability to continue speaking. He also reports a change in his overall vocal quality, becoming more hoarse. Medications related to this diagnosis: atorvastatin [Lipitor] 10 mg tablet, colchicine 0.6 mg tablet, empagliflozin [Jardiance] 10 mg tablet, furosemide [Lasix] 20 mg tablet, gabapentin 800 mg tablet, levocetirizine [Xyzal] 5 mg tablet, metformin 750 mg tablet, metoprolol succinate 25 mg tablet extended release 24 hr, multivitamin Tablet, pantoprazole 40 mg tablet,delayed release (DR/EC), rivaroxaban [Xarelto] 20 mg Tablet, vit C,O-Wq-kjtzt-lutein-zeaxan [PreserVision AREDS-2] 250-90-40-1 mg capsule Smoking Status: Never smoker Diagnosis Diagnosis: Mild voice disorder Pain Is pain an issue with your current prescribed condition?: No Personal Preferred language: Occitan Patient Allergies Allergies Allergies: Allergies No Known Allergies Allergy (Verified 03/12/25 09:34) Subjective Voice Medications Mediations: atorvastatin [Lipitor] 10 mg tablet, colchicine 0.6 mg tablet, empagliflozin [Jardiance] 10 mg tablet, furosemide [Lasix] 20 mg tablet, gabapentin 800 mg tablet, levocetirizine [Xyzal] 5 mg tablet, metformin 750 mg tablet, metoprolol succinate 25 mg tablet extended release 24 hr, multivitamin Tablet, pantoprazole 40 mg tablet,delayed release (DR/EC), rivaroxaban [Xarelto] 20 mg Tablet, vit C,I-Ff-isexv-lutein-zeaxan [PreserVision AREDS-2] 250-90-40-1 mg capsule Intubation Was the Client intubated: No Intake Water (ounces): 18 Coffee (ounces): 16 Soda (ounces): 16 Alcoholic Beverage Intake Intake: Never Other Product Usage Do you use products containing menthol (if yes, list): No Do you take Vitamin C Supplements (if yes, list amt (mg)/day: No Do you use recreational drugs (if yes, list type/amt/frequency): No Objective Voice Date of Diagnosis Date of diagnosis: December 2024 Previous Speech Therapy (If yes, describe): No Objective data Objective Data: Objective data: Sound pressure level (SPL acoustic correlation of vocal loudness) was measured with a sound level meter at a distance of 40 cm from the patient's mouth. Average conversational loudness is 70-80 dB and sustained phonation duration is 15 to 20 seconds for a typical adult. Sustained Phonation Intensity (dB SPL): 60 Sustained Phonatin duration (seconds): 7.66 Is the individual stimulable to increase vocal intensity: No Vocal Intensity at Sentence Level (dB SPL): 55-61 Vocal Intensity at Paragraph Level (dB SPL): 55-61 Vocal Intensity at Conversational Level (dB SPL): 55-61 Observational Assessment Pitch Range in octaves: 1 Maximum Phonation Time in seconds: 7.66 S/Z Ratio: 1.13 Sustained /s/: 9.1 Sustained /z/: 8 Ratio: 1.13 Greater than 1:4 (indicates dysfunction): No Voice Handicap Index (VHI) VHI VHI Administered: Yes VHI: Patient completed the Voice Handicap Index, which is a 30 item, self administered questionnaire that asks an individual to describe their voice and the effects of their voice on their life. Three subscales cover the areas of functional, emotional, and physical aspects of the voice disorders. Points from the questions can be combined to assign a total score, or they can be combined by subscale. 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 Participation in therapy will increase his ability to communicate his daily need and wants, as well as increase his overall quality of life. Recommendations Treatment Warranted: Yes Treatment Warranted: Voice Progress Prognosis: Good Frequency Frequency: 1x/Week Duration: 6 Months Visits in this POC: 26 Patient/Family Goal Patient/Family Goal: Patient stated that he wants to reduce the frequency of instances where he experiences vocal fatigue and aphonia. Goals that are Established Determination:: Goals will be added/modified as deemed necessary and appropriate. Therapy will be discontinued when results of re-evaluation indicate therapy is no longer needed or lack of progress has been documented. Goal #1-5 Goal #1: Reymundo will utilize voice facilitation and resonance training to reduce hoarseness occurrences to 15% of the time at the short conversation level with fading cues. Goal #2: Reymundo will complete a weekly log dictating instances of vocal cord dysfunction or moments of activities of "not breathing" including time of day, activity, and stress level on a scale of 1-5 with 1 being mild tension and 5 being complete airway closure. Goal #3: Reymundo will participate in vocal function exercises (VFEs) with correct technique in 90% of trials during therapy sessions with fading cues. Education Patient has Indicated that the Following Identified Educational Needs: None The Patient has indicated that they have no educational or learning abilities that may effect their care.: Yes Patient Instruction Patient Education: Diagnosis, Treatment Plan and Goals Person Taught: Patient and Significant Other Teaching Method: Discussion Response to teaching: Verbalize Understanding
--- NOTE | 2025-05-18 10:53 | HP.SP.DC ---
ST Discharge Summary Discharged: Discharge: Patient is being discharged from [facility] speech therapy services at this time. Patient attended initial evaluation on 03/26/25 and attended weekly appointments until 05/18/25. Patient meeting goals and will continue home exercise program independently. Patient in agreement with discharge recommendation. Thank you for allowing me to participate in the care of this patient.
== END 2025-05-18 19:00 | disposition home or self-care (01) ==
LOC: SP 10:00
PROVIDERS: PCP Family Medicine; Visit Provider Otolaryngology
DX: J38.7 Other diseases of larynx (principal); R49.0 Dysphonia
CPT/HCPCS: 92507; 92524

== ENCOUNTER → 2025-06-26 | Outpatient (CLI) | payer MEDICARE, SELFPAY ==
--- NOTE | 2025-06-26 12:36 | RAD_ITS ---
PROCEDURE: SWALLOWING FUNCTION W/VIDEO 06/26/2025 REASON FOR EXAM: DYSPHAGIA, HOARSENESS TECHNIQUE: SWALLOWING FUNCTION W/VIDEO FLUOROSCOPIC TIME: 2 minutes 24 seconds minutes Radiation dose of 53.5 mGy COMPARISON: None FINDINGS: Fluoroscopy provided for modified barium swallow performed by speech therapy. Please see the dedicated report by the speech therapist Incidental note made of a calcification seen on the lateral views projecting within the trachea. RAD/Swallowing Function w/Video IMPRESSION: Fluoroscopy provided for modified barium esophagram performed by speech therapy Reading Location: [id number]
--- OUTSIDE RECORDS SUMMARY | 2025-06-26 12:44 | XMS RPT_ITS | CCD ---
Author Organization [facility] Care Team Providers Care Aviation Engineer Name Role Phone Unavailable Unavailable Unavailable Tye Anne Unavailable [phone] Elías Hsu Unavailable Unavailab KAILEY Polanco Unavailable Unavailable KAILEY HILTON Unavailable Unavailable TYE ANNE Unavailable Unavaila Tye Bunn Primary Care Provider Elías Hsu Unavailable Unavailab Elías Bales Admitting Unavailable Elías Hsu Attending Unavailable Tye Anne Unavailable Unavailable Tye Anne Unavailable Unavailable Elías Hsu Unavailable Troncoso II, Robbin Unavailable Unavailable Tye Anne Unavailable Unavailable Tye Anne Primary Care Provider Tye Anne MD Primary Care Provider Elías Hsu MD Unavailable Elías Hsu MD Unavailable Tye Anne MD Primary Care Provider Elías Hsu MD Unavailable Tye Anne Unavailable Unavailable Unavailable Elías Hsu MD Unavailable Tye Anne Unavailable Zoraida Diana Unavailable Unavailable Vinay, Avirumatteo Unavailable Unavailable Susana Gibson Unavailable Deniz Bañuelos Unavailable Unavailable Joel Stroud Unavailable Unavailable Simi Kamara Unavailable Unavailable Clarissa-Miranda, Abelino Unavailable Tye Anne MD Primary Care Provider Elías Hsu MD Unavailable Unavailable Unavailable Tye Anne MD Primary Care Provider Elías Hsu MD Unavailable Anoop Nascimento Unavailable Thal, Brandon Unavailable Unavailable Clarissa Miranda, Abelino Admitting Martha vailable Clarissa Miranda, Abelino Attending Martha vailable Clarissa Miranda, Abelino Referring Martha vailable Dayana, Dr. Tye Bonner Primary Care Unav ailable Clarissa Miranda, Abelino Admitting Martha vailable Clarissa Miranda, Abelino Attending Martha vailable Clarissasarbjit Miranda, Abelino Referring Martha vailable Dayana, Dr. Tye Bonner Primary Care Unav ailable Thal, Brandon Attending Unavailable Thal, Brandon Referring Unavailable Dayana, Dr. Tye Bonner Primary Care Unav ailTye Huang MD Unavailable [phone] Tye Anne MD Primary Care Provider Tye Anne MD Unavailable Dayana, Dr. Tye Bonner Primary Care Unav ailjl Solorio, Barry Attending Unavailable Solorio, Barry Shepard Unavailable Reggie Aragon Unavailable Dayana, Dr. Tye Bonner Primary Care Unav ailjl Gibson, Dr. Susana Salgado Attending Unav ailjl Diana, Dr. Zoraida Allred Attending Unavaila ble Dayana, Dr. Tye Bonner Primary Care Unav ailjl Luna, Ms. Yaritza Pineda Attending Unavail able Dayana, Dr. Tye Bonner Primary Care Marthav ailjl Gibson, Dr. Susana Salgado Attending Unav ailable Dayana, Dr. Tye Bonner Primary Care Unav ailable Dayana, Dr. Tye Bonner Primary Care Unav ailable [place], Dr. Anoop Curiel Attending Unavail able MANOCCHIO, SIMI Attending Unavailable Anne, Dr. Tye Bonner Primary Care Unav ailable Maximus, Joel Attending Unavailable Anne, Dr. Tye Bonner Primary Care Unav ailable Maximus, Joel Attending Unavailable Anne, Dr. Tye Bonner Primary Care Unav ailable Maximus, Joel Attending Unavailable Anne, Dr. Tye Bonner Primary Care Unav ailable Maximus, Joel Attending Unavailable Anne, Dr. Tye Bonner Primary Care Unav ailable Anne, Dr. Tye Bonner Primary Care Unav ailable Zumbar, Dr. Susana Salgado Attending Unav ailable Anne, Dr. Tye Bonner Primary Care Unav ailable Maximus, Joel Attending Unavailable Maximus, Joel Attending Unavailable Anne, Dr. Tye Bonner Primary Care Unav ailable Anne, Dr. Tye Bonner Primary Care Unav ailable Maximus, Joel Attending Unavailable Anne, Dr. Tye Bonner Primary Care Unav ailable Maximus, Joel Attending Unavailable Anne, Dr. Tye Bonner Primary Care Unav ailable Zumbar, Dr. Susana Salgado Attending Unav ailable Zumbar, Dr. Susana Salgado Attending Unav ailable Anne, Dr. Tye Bonner Primary Care Unav ailable Zumbar, Dr. Susana Salgado Attending Unav ailable Anne, Dr. Tye Bonner Primary Care Unav ailable Anne, Dr. Tye Bonner Primary Care Unav ailable Zumbar, Dr. Susana Salgado Attending Unav ailable Zumbar, Dr. Susana Salgado Attending Unav ailable Anne, Dr. Tye Bonner Primary Care Unav ailable Bilderback, Simi Unavailable UnavailTye Swan MD Unavailable [phone] Tye Anne MD Primary Care Provider [phone] Tye Anne MD Unavailable Tye Anne MD Primary Care Provider [phone] Dominick Ruelas Attending Unavailjena Anne, Dr. Tye Bonner Primary Care Unav ailable Jose Rafael, Dr. Dominick Ruelas Attending Unavailjena Anne, Dr. Tye Bonner Primary Care Unav ailable DAYANA, TYE BONNER Primary Care UnavailROBBIN Galeano Attending Unavailable Vito GAYTAN, Elías Barkley Unavailable Tye Anne MD Unavailable Tye Anne MD Primary Care Provider Tye Anne MD Unavailable Tye Anne MD Primary Care Provider [phone] REGGIE ARAGON Referring Unavailable DAYANA, CHRISTOPHER Chalino Primary Care Unavailable MARITZA LOPES Referring Unavailable DAYANA, PAULOPHER Chalino Primary Care Unavailable JIMENEZ, ARAVIND Referring Unavailable DAYANA, CHRISTOPHER D Primary Care Unavailable REGGIE ARAGON Referring Unavailable DAYANA CHRISTOPHER Chalino Primary Care Unavailable JIMENEZ, ARAVIND Referring Unavailable DAYANA, CHRISTOPHER D Primary Care Unavailable JIMENEZ, ARAVIND Referring Unavailable DAYANA, CHRISTOPHER D Primary Care Unavailable Tye Anne MD Unavailable Tye Anne MD Primary Care Provider Tye Anne MD Unavailable TYE ANNE Primary Care Unavailable DAYANA, CHRISTOPHER D Primary Care Unavailable ANNE, CHRISTOPHER Chalino Primary Care Unavailable ANNE, CHRISTOPHER D Primary Care Unavailable CRISTOBAL DUNBAR Attending Unavailable CRISTOBAL DUNBAR Admitting Unavailable ANNE, CHRISTOPHER Chalino Primary Care Unavailable SINOPOLI, MONSERRAT N Admitting Unavailable CHAI, MONSERRAT N Attending Unavailable DAYANA CHRISTOPHER D Primary Care Unavailable JIMENEZ, ARAVIND Referring Unavailable ANNE, CHRISTOPHER D Primary Care Unavailable SINOPOLI, MONSERRAT N Attending Unavailable DAYANA, CHRISTOPHER D Primary Care Unavailable SINFARIHAI, MONSERRAT N Referring Unavailable ANNE, CHRISTOPHER D Primary Care Unavailable SINOPOLI, MONSERRAT N Referring Unavailable DAYANA, CHRISTOPHER D Primary Care Unavailable SINOPOLI, MONSERRAT N Referring Unavailable ANNE, TYE Allred Primary Care Unavailable SUSANA WELLER Attending Unavailable TYE ANNE Primary Care Unavaila ble EDITHMONTY Referring Unavailable EDITH, MONTY PINEDA Attending Unavailable ANNE, TYE BONNER Primary Care Unavaila ble EDITHMONTY Referring Unavailable EDITH, MONTY PINEDA Attending Unavailable ANNE, TYE BONNER Primary Care Unavaila ble ANNE, [facility] BONNER Primary Care Unavaila ble ADLY, HERMAN ADLY HERMAN Referring Unava ilable ADLY, HERMAN SILVERY HERMAN Attending Unava ilable JIMENEZ, ARAVIND Referring Unavailable ANNE, TYE Allred Primary Care Unavailable JIMENEZ, ARAVIND Admitting Unavailable JIMENEZ, ARAVIND Attending Unavailable ANNETYE Allred Primary Care Unavailable JIMENEZ, ARAVIND Referring Unavailable ANNE, TYE Allred Primary Care Unavailable JIMENEZ, ARAVIND Referring Unavailable ANNE, TYE Allred Primary Care Unavailable JIMENEZ, ARAVIND Referring Unavailable ANNE, TYE Allred Primary Care Unavailable JIMENEZ, ARAVIND Referring Unavailable TYE ANNE Primary Care Unavailable EVERETT, YULIET SABRY Referring Unavailable TYE ANNE Primary Care Unavaila ble EVERETT, YULIET SABRY Admitting Unavailable EVERETT, YULIET SABRY Attending Unavailable TYE ANNE Primary Care Unavaila ble ERICA JR., CHINTAN Attending Unavailable TYE ANNE Primary Care Unavaila ble ERICA JR., CHINTAN Attending Unavailable ANNETYE Allred Primary Care Unavaila ble [facility], [facility] Primary Care Unavaila ble ADLY, HERMAN ADLY HERMAN Attending Unava ilable ERICA , CHINTAN Attending Unavailable ANNETYE Allred Primary Care Unavaila ble ANNE, TYE BONNER Primary Care Unavaila ble ADLY, HERMAN ADLY HERMAN Attending Unava ilable ERICA JR., CHINTAN Attending Unavailable TYE ANNE Primary Care Unavaila ble ANNE, TYE BONNER Primary Care Unavaila ble ANNETYE Referring Unavaila ble MONTY JULIEN Attending Unavailable ERICA JR., CHINTAN Attending Unavailable ANNETYE Primary Care Unavaila coleen Anne MD, Dr. Hancock Primary Care Provider Dr. Santi Anne MD Referring Provider Landry FORDCDione Attending Provider Tye Anne MD Unavailable Tye Anne MD Primary Care Provider Tye Anne MD Unavailable JAMES ALVES Attending Unavailable REGGIE ARAGON Referring Unavailable ANNE, CHRISTOPHER D Primary Care Unavailable ANNE, CHRISTOPHER D Primary Care Unavailable ANNE, CHRISTOPHER D Primary Care Unavailable JIMENEZ, ARAVIND Referring Unavailable ANNE, CHRISTOPHER D Primary Care Unavailable ANNE, CHRISTOPHER D Primary Care Unavailable URMILA GALLOWAY Attending Unavailable ANNE, CHRISTOPHER D Primary Care Unavailable URMILA GALLOWAY Attending Unavailable ANNE, CHRISTOPHER D Referring Unavailable ANNE, CHRISTOPHER D Primary Care Unavailable JIMENEZ, ARAVIND Referring Unavailable ANNE, CHRISTOPHER D Primary Care Unavailable ANNE, CHRISTOPHER D Primary Care Unavailable SAMMY ANDREW Attending Unavailable JIMENEZ, ARAVIND Referring Unavailable ANNE, CHRISTOPHER D Primary Care Unavailable ANNE, CHRISTOPHER D Primary Care Unavailable ANNE, CHRISTOPHER D Referring Unavailable ANNE, CHRISTOPHER D Referring Unavailable ANNE, CHRISTOPHER D Primary Care Unavailable NAYELI FLORES Attending Unavailable ANNE, CHRISTOPHER D Primary Care Unavailable ANNE, CHRISTOPHER D Referring Unavailable ANNE, CHRISTOPHER D Primary Care Unavailable ANNE, CHRISTOPHER D Primary Care Unavailable KATHY TREVIÑO Referring Unavailable ANNE, CHRISTOPHER D Primary Care Unavailable ANNE, CHRISTOPHER D Referring Unavailable ANNE, CHRISTOPHER D Primary Care Unavailable JAMES ALVES Attending Unavailable REGGIE ARAGON Referring Unavailable ANNE, CHRISTOPHER D Primary Care Unavailable ANNE, CHRISTOPHER D Referring Unavailable ANNE, CHRISTOPHER D Primary Care Unavailable JIMENEZ, ARAVIND Referring Unavailable ANNE, CHRISTOPHER D Primary Care Unavailable JIMENEZ, ARAVIND Referring Unavailable ANNE, CHRISTOPHER D Primary Care Unavailable JIMENEZ, ARAVIND Referring Unavailable ANNE, CHRISTOPHER D Primary Care Unavailable JIMENEZ, ARAVIND Referring Unavailable ANNE, CHRISTOPHER D Primary Care Unavailable ANNE, CHRISTOPHER D Primary Care Unavailable ROBBIN FLORES Attending Unavailable BILSHANTEBACKSIMI Referring Unavaila ble ANNE, CHRISTOPHER D Primary Care Unavailable ANNE, CHRISTOPHER D Referring Unavailable ANNE, CHRISTOPHER D Primary Care Unavailable ANNE, CHRISTOPHER D Referring Unavailable ANNE, CHRISTOPHER D Primary Care Unavailable REGGIE ARAGON Attending Unavailable ANNE, CHRISTOPHER D Primary Care Unavailable ANNE, CHRISTOPHER D Primary Care Unavailable REGGIE ARAGON Attending Unavailable ANNE, CHRISTOPHER D Primary Care Unavailable ANNE, CHRISTOPHER D Attending Unavailable ANNE, CHRISTOPHER D Referring Unavailable ANNE, CHRISTOPHER D Primary Care Unavailable OCTAVIO MARMOLEJO Attending Unavailable ANNE, CHRISTOPHER D Primary Care Unavailable ANNE, CHRISTOPHER D Attending Unavailable ANNE, CHRISTOPHER D Referring Unavailable ANNE, CHRISTOPHER D Primary Care Unavailable JIMENEZ, ARAVIND Attending Unavailable ANNE, CHRISTOPHER D Primary Care Unavailable JIMENEZ, ARAVIND Referring Unavailable ANNE, CHRISTOPHER D Attending Unavailable SIMI BRAY Referring Unavaila ble ANNE, CHRISTOPHER D Primary Care Unavailable ANNE, CHRISTOPHER D Attending Unavailable ANNE, CHRISTOPHER D Referring Unavailable ANNE, CHRISTOPHER D Primary Care Unavailable OCTAVIO MARMOLEJO Attending Unavailable ANNE, CHRISTOPHER D Primary Care Unavailable ANNE, CHRISTOPHER D Attending Unavailable ANNE, CHRISTOPHER D Primary Care Unavailable ANNE, CHRISTOPHER D Attending Unavailable ANNE, CHRISTOPHER D Primary Care Unavailable ANNE, CHRISTOPHER D Attending Unavailable ANNE, CHRISTOPHER D Referring Unavailable ANNE, CHRISTOPHER D Primary Care Unavailable JIMENEZ, ARAVIND Attending Unavailable ANNE, CHRISTOPHER D Primary Care Unavailable ANNE, CHRISTOPHER D Attending Unavailable SAMMY ANDREW Referring Unavailable ANNE, CHRISTOPHER D Primary Care Unavailable JIMENEZ, ARAVIND Attending Unavailable ANNE, CHRISTOPHER D Primary Care Unavailable Felix, Cristopher Chi Admitting Unavailable Felix, Cristopher Chi Referring Unavailable Friend, Jovany Attending Unavailable Landry Jones Consulting Unavailable Anne, Santi Primary Care Unavailable Felix, Cristopher Chi Consulting Unavailable Friend, Jovany Attending Unavailable Anne, Santi Primary Care Unavailable Anne, Santi Referring Unavailable Felix, Cristopher Chi Referring Unavailable Anne, Santi Primary Care Unavailable Felix, Cristopher Chi Attending Unavailable Felix, Cristopher Chi Admitting Unavailable Ivan Jonesony Consulting Unavailable Anne, Santi Primary Care Unavailable Milton Jha Attending Unavailable Anne, Santi Primary Care Unavailable Dione Alatorre Referring Unavailable Dione Alatorre Attending Unavailable Felix, Cristopher Chi Referring Unavailable Anne, Santi Primary Care Unavailable Felix, Cristopher Chi Attending Unavailable Friend, Jovany Attending Unavailable Friend, Jovany Consulting Unavailable Anne, Santi Primary Care Unavailable Anne, Santi Referring Unavailable Landry Jones Attending Unavailable Anne, Santi Primary Care Unavailable Anne, Santi Referring Unavailable Dione Alatorre Attending Unavailable Allergies Allergy Classification Reported Allergen(s) Allergy Type Date of Onset Reaction(s) Facility Opioid Agonists (14 sources) Morphine Drug Allergy 07-21-2019 Nausea and vomiting [facility] (20 sources) Morphine; Translations: [MORPHINE] Drug Allergy 07-21-2019 Nausea and vomiting [facility] Medications Current Medications Medication Drug Class(es) Dates Sig (Normalized) Sig (Original) acetaminophen 32 mg/ml oral solution (20 sources) Start: 10-08-2024 take 650 mg enteral route every six hours as needed Start: 10-07-2024 acetaminophen (Tylenol) 160 mg/5 mL (5 mL) suspension Indications: Esophageal perforation 20.5 mL (650 mg) by j-tube route every 4 hours if needed for mild pain (1 - 3). 10/07/2024 Active Start: 10-07-2024 Start: 09-27-2024 End: 10-03-2024 take 1000 mg intravenously every six hours Start: 05-23-2023 End: 11-19-2023 take 1 capsule by mouth twice daily acetaminophen (Tylenol) 500 mg capsule Indications: Generalized osteoarthritis of multiple sites , Calcium pyrophosphate deposition disease Take 1 capsule (500 mg) by mouth 2 times a day. 180 capsule 1 05/23/2023 11/19/2023 Start: 06-13-2022 take 2 tablets by [facility] every six hours as needed acetaminophen 325 mg oral tablet ; 2 tab(s) orally every 6 hours, As needed, Pain - Mild (1-3) Quantity: 0 Refills: 0 Ordered: 13-Jun-2022 Catherine Philip Start: 13-Jun-2022 Generic Substitution Allowed End: 09-26-2024 take 1 tablet by mouth every six hours as needed acetaminophen (Tylenol) 500 mg tablet Take 1 tablet (500 mg) by mouth every 6 hours if needed for mild pain (1 - 3). Active End: 10-08-2024 take 1 tablet by mouth every eight hours as needed acetaminophen (Tylenol 8 HOUR) 650 mg ER tablet Take 1 tablet (650 mg) by mouth every 8 hours if needed for mild pain (1 - 3). Do not crush, chew, or split. Active acetaminophen (T YLENOL ORAL) Take 650 mg by mouth. Active Tylenol 500 MG C APS Quantity: 0 Refills: 0 Ordered: 12-Feb-2023 DO Active atorvastatin 10 mg oral tablet (20 sources) HMG-CoA Reductase Inhibitor Start: 03-12-2025 take 5 mg by mouth once daily Atorvastatin (Lipitor) 10 mg tablet Active 5 mg PO daily March 12, 2025 12:00am Start: 08-02-2020 End: 07-03-2025 take 1 tablet by mouth once daily atorvastatin (Lipitor) 40 mg tablet Indications: Mixed hyperlipidemia Take 1 tablet (40 mg) by mouth once daily. 90 tablet 3 11/18/2024 Active Comment on above: Avoid grapefruit and grapefruit juice while taking this medication.Do not take this drug if you are .It is very important that you take or use this exactly as directed. Do not skip doses or discontinue unless directed by your doctor.Obtain medical advice before taking any non-prescription drugs as some may affect the action of this medication.Take with food or milk. azithromycin 250 mg oral tablet (4 sources) Macrolide Antimicrobial Start: 06-12-2024 End: 06-17-2024 azithromycin (Zithromax Z-Micha) 250 mg tablet Indications: Bronchitis Take 1 tablet (250 mg) by mouth once daily for 5 days. Take 2 pills on Day 1 and then 1 pill on Days 2-5 6 tablet 06/12/2024 06/17/2024 Active Start: 06-03-2021 End: 06-07-2021 azithromycin 250 mg oral tab let ; Take 2 tab(s) orally once a day for day one and then 1 tab daily for days two through five Quantity: 6 Refills: 0 Ordered: 03-Jun-2021 Simi Kamara Start: 03-Jun-2021 End: 07-Jun-2021 Status: Completed Generic Substitution Allowed Comments: Do not take dairy products, antacids, or iron preparations within one hour of this medication.Finish all this medication unless otherwise directed by prescriber. Comment on above: Do not take dairy pr oducts, antacids, or iron preparations within one hour of this medication.Finish all this medication unless otherwise directed by prescriber. betamethasone 0.5 mg/ml / clotrimazole 10 mg/ml topical cream (7 sources) Azole Antifungal, Corticosteroid Start: 11-25-2024 End: 12-09-2024 clotrimazole-betamet hasone (Lotrisone) cream Indications: Tinea cruris Apply topically 2 times a day for 14 days. Apply to affected area 2 times daily 45 g 11/25/2024 12/09/2024 Active Start: 02-24-2022 End: 03-10-2022 clotrimazole-betamethasone ( LOTRISONE) cream Apply topically 2 (two) times a day for 14 days . 30 g 0 02/24/2022 03/10/2022 Active Start: 09-03-2019 End: 10-27-2020 clotrimazole-betamethasone ( LOTRISONE) cream See Admin Instructions . 0 09/03/2019 10/27/2020 Discontinued (Discontinued by another clinician) bisacodyl 10 mg rectal suppo sitory (4 sources) Stimulant Laxative Start: 09-29-2024 End: 09-30-2024 Start: 03-13-2018 End: 03-14-2018 Blood glucose monitoring met er (8 sources) Start: 12-29-2024 End: 12-29-2025 Blood glucose monitoring met er Indications: 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, without long-term current use of insulin (Multi) USE ONCE DAILY 1 each 12/29/2024 12/29/2025 Active Start: 12-29-2024 End: 12-29-2025 Blood glucose monitoring met er Indications: 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, without long-term current use of insulin USE ONCE DAILY 1 each 12/29/2024 12/29/2025 Active Start: 12-26-2024 End: 12-26-2025 Blood glucose monitoring met er Indications: 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, without long-term current use of insulin Use as directed 1 each 12/26/2024 12/26/2025 Active blood sugar diagnostic (Bloo d Glucose Test) (8 sources) Start: 12-29-2024 blood sugar di agnostic (Blood Glucose Test) Indications: 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, without long-term current use of insulin (Multi) TEST ONCE DAILY 100 strip 3 12/29/2024 Active Start: 12-29-2024 blood sugar di agnostic (Blood Glucose Test) Indications: 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, without long-term current use of insulin TEST ONCE DAILY 100 strip 3 12/29/2024 Active Start: 12-26-2024 blood sugar di agnostic (Blood Glucose Test) Indications: 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, without long-term current use of insulin Use as directed to check blood sugar 100 strip 3 12/26/2024 Active cefadroxil 500 mg oral capsule (3 sources) Cephalosporin Antibacterial Start: 11-11-2024 End: 11-21-2024 take 1 capsule by mouth twice daily cefadroxil (Duricef) 500 mg capsule Indications: Persistent atrial fibrillation (Multi) , Sick sinus syndrome (Multi) , SSS (sick sinus syndrome) (Multi) Take 1 capsule (500 mg) by mouth 2 times a day for 10 days. 20 capsule 11/11/2024 11/21/2024 Active Start: 09-26-2024 End: 09-27-2024 cephalexin 500 mg oral capsule (9 sources) Cephalosporin Antibacterial Start: 08-13-2024 End: 08-18-2024 take 1 capsule by mouth twice daily cephalexin (Keflex) 500 mg capsule Indications: Heart failure with mildly reduced ejection fraction (HFmrEF) , Shortness of breath , Hypertension, essential, benign Take 1 capsule (500 mg) by mouth 2 times a day for 5 days. 10 capsule 08/13/2024 12:27 PM EST 08/13/2024 08/18/2024 Active Start: 08-01-2022 End: 08-11-2022 take 1 capsule by mouth four times daily cephALEXin (KEFLEX) 500 MG capsule Indications: Olecranon bursitis of left elbow Take 1 (one) capsule (500 mg total) by mouth 4 (four) times a day for 10 days . 40 capsule 0 08/01/2022 08/11/2022 Active Start: 06-13-2022 End: 06-19-2022 take 1 capsule by mouth every six hours cephalexin 500 mg oral capsule ; 1 cap(s) orally every 6 hours Quantity: 28 Refills: 0 Ordered: 13-Jun-2022 Catherine Philip Start: 13-Jun-2022 End: 19-Jun-2022 Generic Substitution Allowed Start: 11-24-2021 End: 11-30-2021 take 1 capsule by mouth four times daily cephalexin 500 mg oral capsule ; 1 cap(s) orally 4 times a day Quantity: 28 Refills: 0 Ordered: 24-Nov-2021 Zoraida Diana Start: 24-Nov-2021 End: 30-Nov-2021 Generic Substitution Allowed Comments: Finish all this medication unless otherwise directed by prescriber. Comment on above: Finish all this medi cation unless otherwise directed by prescriber. cetirizine hydrochloride 10 mg oral tablet (20 sources) Histamine-1 Receptor Antagonist Start: 09-26-2024 End: 10-27-2020 take 1 tablet by mouth once daily ZyrTEC 10 mg oral tablet ; 1 tab(s) orally once a day Quantity: 0 Refills: 0 Ordered: 06-Sep-2021 Mumtaz Campoverde Generic Substitution Allowed Zyrtec TABS TAKE 1 TABLET DAILY DIRECTED. Quantity: 0 Refills: 0 Ordered: 10-Aug-2021 DO Active cetirizine (ZyrTEC) 2.5 MG split tablet (1 source) End: 12-07-2022 cetirizine (ZyrTEC) 2.5 MG split tablet Take 2 half tablet (5 mg) by mouth once daily. 0 12/07/2022 Discontinued (Therapy completed) clotrimazole 10 mg oral lozenge (1 source) Azole Antifungal Start: 03-12-2025 Clotrimazole 10 mg gracy Active 10 mg MUCOUS MEM .five times a day 50 10 0 March 12, 2025 12:00am March 21, 2025 12:00am lace one gracy in your mouth and let it dissolve slowly. Do not chew or swallow it whole. Move it around your mouth as it dissolves to help the medicine reach all affected areas. coffee xt-phosphatidyl serine (Neuriva Original) 100-100 mg capsule (2 sources) take 1 capsule by mouth once daily coffee xt-phosphatidyl serine (Neuriva Original) 100-100 mg capsule Take 1 capsule by mouth once daily. 0 Active coffee xt/phosphatidyl serine (NEURIVA ORIGINAL ORAL) (20 sources) End: 08-01-2022 coffee xt/phosphatidyl serine (NEURIVA ORIGINAL ORAL) Take by mouth . 0 08/01/2022 Discontinued (Duplicate order (Suppress CancelRx Message to Pharmacy)) coffee xt/phosph atidyl serine (NEURIVA ORIGINAL ORAL) Take by mouth . 0 Active colchicine 0.6 mg oral tablet (20 sources) Start: 03-12-2025 take 1 tablet by mouth once daily Colchicine 0.6 mg tablet Active 0.6 mg PO daily March 12, 2025 12:00am Start: 11-21-2023 End: 05-01-2025 take 1 tablet by mouth once daily as needed for pain colchicine 0.6 mg tablet Indications: Generalized osteoarthritis of multiple sites , Calcium pyrophosphate deposition disease , Chronic bilateral low back pain with bilateral sciatica , Spondylosis of lumbosacral region without myelopathy or radiculopathy Take 1 tablet (0.6 mg) by mouth once daily as needed for muscle/joint pain. 90 tablet 1 11/21/2023 08/17/2024 docusate sodium 10 mg/ml oral suspension (12 sources) Start: 10-08-2024 End: 10-29-2024 take 10 mL by mouth twice daily docusate sodium (Colace) 50 mg/5 mL oral liquid Indications: Esophageal perforation Take 10 mL (100 mg) by mouth 2 times a day. 10/08/2024 10/29/2024 Discontinued (Med List Cleanup) Start: 10-08-2024 End: 10-24-2024 Docusate Sodium 50 mg/5 mL l iquid Discontinued 100 mg feeding tube TWICE A DAY October 08, 2024 12:00am October 24, 2024 3:23pm stool softener Start: 03-13-2018 End: 03-23-2018 take 1 capsule by mouth twice daily docusate sodium (COLACE) 100 MG capsule Take 1 (one) capsule (100 mg total) by mouth 2 (two) times a day for 10 days. 20 capsule 0 03/13/2018 03/23/2018 Active End: 03-05-2018 take 1 capsule by mouth three times daily as needed for constipation docusate sodium (COLACE) 100 MG capsule Take 100 mg by mouth 3 (three) times a day as needed for constipation. 03/05/2018 Discontinued Drug or medicament (substance) (2 sources) End: 10-08-2024 empagliflozin 10 mg oral tablet (20 sources) Sodium-Glucose Cotransporter 2 Inhibitor Start: 12-26-2024 End: 01-06-2026 take 1 tablet by mouth once daily empagliflozin (Jardiance) 10 mg tablet Indications: 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, without long-term current use of insulin (Multi) , Chronotropic incompetence , Chronic diastolic congestive heart failure (Multi) Take 1 tablet (10 mg) by mouth once daily. 90 tablet 3 01/06/2025 01/06/2026 Active Start: 09-26-2024 Start: 11-16-2021 End: 07-03-2025 empagliflozin (Jardiance) 25 mg Indications: Chronic diastolic congestive heart failure (Multi) , 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, without long-term current use of insulin (Multi) Take 1 tablet (25 mg) by mouth once daily. 90 tablet 3 09/11/2023 05/09/2024 Discontinued (Reorder) Eye Multivitamin oral tablet (5 sources) take 1 tablet by mouth once daily Eye Multivitamin oral tablet ; 1 tab(s) orally once a day Quantity: 0 Refills: 0 Ordered: 06-Sep-2021 Mumtaz Campoverde Generic Substitution Allowed eye promise (4 sources) eye promise ; or ally once a day Quantity: 0 Refills: 0 Ordered: 16-Mar-2020 Desiree Hagen Status: Discontinued Generic Substitution Allowed furosemide 20 mg oral tablet (20 sources) Loop Diuretic Start: 11-11-2024 End: 11-11-2025 take 1 tablet by mouth once daily as needed furosemide (Lasix) 20 mg tablet Indications: Heart failure with mildly reduced ejection fraction (HFmrEF) (Multi) Take 1 tablet (20 mg) by mouth once daily as needed (for swelling to lower legs). 90 tablet 3 11/11/2024 11/11/2025 Active Start: 08-16-2020 End: 10-08-2024 Start: 08-16-2020 End: 05-28-2024 take 1 tablet by mouth every other day furosemide (LASIX) 20 MG tablet Take 1 (one) tablet (20 mg total) by mouth every other day . 11/27/2020 Active gabapentin 800 mg oral tablet (20 sources) Anti-epileptic Agent Start: 04-27-2025 End: 10-24-2025 take 1.5 tablets by mouth once daily at bedtime gabapentin (Neurontin) 800 mg tablet Indications: 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 stenosis , Lumbar radiculopathy , Cervical radiculitis Take 1.5 tablets (1,200 mg) by mouth once daily at bedtime. 10 tablet 04/27/2025 05/01/2025 Discontinued (Med List Cleanup) Start: 03-12-2025 take 1 tablet by keith twice daily Gabapentin 800 mg tablet Active 800 mg PO TWICE A DAY March 12, 2025 12:00am Start: 11-06-2024 End: 11-06-2025 take 1 tablet by mouth once daily at bedtime gabapentin (Neurontin) 800 mg tablet Indications: 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 stenosis , Lumbar radiculopathy , Cervical radiculitis Take 1 tablet (800 mg) by mouth once daily at bedtime. 90 tablet 1 04/27/2025 04/27/2025 Discontinued (Ineffective) Start: 09-26-2024 Start: 07-17-2024 End: 07-17-2025 gabapentin (Neurontin) 800 m g tablet Indications: 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 stenosis , Sacroiliitis , Generalized osteoarthritis of multiple sites , Chronic bilateral low back pain with bilateral sciatica , Osteoarthritis of spine with radiculopathy, lumbosacral region Take 1.5 tablets (1,200 mg) by mouth 3 times a day. Takes 3 time a day 405 tablet 1 07/17/2024 10/08/2024 Discontinued (Stop Taking at Discharge) Start: 02-07-2024 End: 05-23-2025 gabapentin (Neurontin) 800 m g tablet Indications: 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 stenosis , Sacroiliitis , Generalized osteoarthritis of multiple sites , Chronic bilateral low back pain with bilateral sciatica , Osteoarthritis of spine with radiculopathy, lumbosacral region Take 1 tablet (800 mg) by mouth 3 times a day. Takes 3 time a day 270 tablet 3 05/23/2024 07/17/2024 Discontinued (Reorder) Start: 05-03-2023 End: 02-07-2024 take 1 tablet by mouth four times daily gabapentin (Neurontin) 800 mg tablet Indications: 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 stenosis , Sacroiliitis , Generalized osteoarthritis of multiple sites , Chronic bilateral low back pain with bilateral sciatica , Osteoarthritis of spine with radiculopathy, lumbosacral region Take 1 tablet (800 mg) by mouth 4 times a day. 360 tablet 09/04/2023 02/07/2024 Discontinued (Dose adjustment) Start: 11-06-2022 End: 03-27-2023 take 1 tablet by mouth four times daily gabapentin (Neurontin) 600 mg tablet Take 1 tablet (600 mg) by mouth 4 times a day. 0 11/06/2022 03/27/2023 Discontinued (Med List Cleanup) Start: 11-06-2022 take 1 tablet by keith three times daily Gabapentin 600 MG Oral Tablet TAKE 1 TABLET 3 TIMES DAILY. Quantity: 270 Refills: 0 Ordered: 06-Nov-2022 Susana Gibson MD Start : 06-Nov-2022 Active Start: 04-10-2022 End: 05-03-2023 take 1 capsule by mouth three times daily gabapentin (NEURONTIN) 400 MG capsule Take 1 (one) capsule (400 mg total) by mouth 3 (three) times a day . 07/24/2022 Active Start: 06-22-2021 End: 08-01-2022 take 1 capsule by mouth once daily at bedtime gabapentin (NEURONTIN) 300 MG capsule Indications: Diabetic polyneuropathy associated with type 2 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 (HCC) Take 1 (one) capsule (300 mg total) by mouth at bedtime (Days supply per fill: 90) . 90 capsule 3 06/22/2021 08/01/2022 Discontinued (Discontinued by another clinician) Start: 01-07-2021 End: 04-07-2021 gabapentin (NEURONTIN) 300 M G capsule Indications: Diabetic polyneuropathy associated with type 2 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 (HCC) Take 1 (one) capsule (300 mg total) by mouth every 8 (eight) hours (Days supply per fill: 90) [id number]: [id number] . 270 capsule 0 01/07/2021 Active Start: 03-13-2018 End: 03-14-2018 End: 04-10-2022 take 1 capsule by mouth twice daily Gabapentin 300 MG Oral Capsule TAKE 1 CAPSULE TWICE DAILY. Quantity: 180 Refills: 2 Ordered: 15-Aug-2021 Tye Anne MD End : 10-Apr-2022 Complete take 1 capsule by mo ut twice daily, then take 1 capsule by mouth at dinner, then take 1 capsule by mouth at bedtime gabapentin 300 mg oral tablet ; 1 cap(s) orally 2 times a day//(take 1 with dinner and then 1 cap at bedtime Quantity: 0 Refills: 0 Ordered: 13-May-2021 Reggie Freire Generic Substitution Allowed glucagon (rdna) 1 mg injection (2 sources) Antihypoglycemic Agent Start: 09-26-2024 1 ml hydrALAZINE hydrochloride 20 mg/ml injection (1 source) Arteriolar Vasodilator Start: 09-29-2024 take 10 mg intravenously every eight hours as needed insulin lispro 100 unt/ml injectable solution (3 sources) Insulin Analogue Start: 09-29-2024 Start: 03-13-2018 End: 03-14-2018 ipratropium bromide 0.021 mg/actuat metered dose nasal spray (6 sources) Anticholinergic Start: 10-09-2022 End: 10-09-2023 take 2 spray(s) nasal route in the morning ipratropium (Atrovent) 21 mcg (0.03 %) nasal spray Indications: Chronic rhinitis Administer 2 sprays into each nostril in the morning and 2 sprays in the evening. 30 mL 12 10/09/2022 06/13/2023 Discontinued (Med List Cleanup) Twycj-Sziuf-3-Dha- Epa-Lipids Oral (1 source) take 300 mg by mouth once daily XURZY-XRWHD-9-DHA-E PA-LIPIDS ORAL Take 300 mg by mouth daily. Active ammonium lactate 120 mg/ml topical cream (20 sources) Start: 12-05-2023 End: 12-04-2024 ammonium lactate (AMLACTIN) 12 % cream Apply topically 2 (two) times a day . 385 g 12/05/2023 12/04/2024 Active Start: 11-03-2022 End: 11-03-2023 ammonium lactate (AMLACTIN) 12 % cream Apply topically 2 (two) times a day . 385 g 0 11/03/2022 11/03/2023 Active levocetirizine dihydrochloride 5 mg oral tablet (6 sources) Histamine-1 Receptor Antagonist Start: 03-12-2025 take 1 tablet by mouth once daily in the evening as needed Levocetirizine (Xyzal) 5 mg tablet Active 5 mg PO EVERY EVENING as needed March 12, 2025 12:00am levocetirizine ( Xyzal) 2.5 mg/5 mL solution Take 5 mL (2.5 mg) by mouth. Active melatonin 5 mg oral tablet (20 sources) Start: 09-26-2024 take 1 tablet by keith th once daily at bedtime melatonin 5 mg tablet,disintegrating Dissolve 5 mg in the mouth once daily at bedtime. Active End: 10-08-2024 take 1 tablet by mouth once daily at bedtime melatonin 10 mg tablet Take 1 tablet (10 mg) by mouth once daily at bedtime. 10/08/2024 Discontinued (Stop Taking at Discharge) melatonin 5 mg c apsule Take by mouth. Active MELATONIN ORAL T adalid by mouth . Active take 1 tablet by keith th once daily at bedtime Melatonin 5 mg oral tablet ; 1 tab(s) orally once a day (at bedtime) Quantity: 0 Refills: 0 Ordered: 06-Sep-2021 Mumtaz Campoverde Generic Substitution Allowed Melatonin 5 MG O ral Capsule TAKE DIRECTED. Quantity: 0 Refills: 0 Ordered: 10-Aug-2021 DO Active MELATONIN ORAL T adalid by mouth . 0 Active 24 hr metoprolol succinate 25 mg extended release oral tablet (20 sources) beta-Adrenergic Vic Start: 03-12-2025 take 1 tablet by mouth once daily Metoprolol Succinate 25 mg tablet extended release 24 hr Active 25 mg PO DAILY March 12, 2025 9:31am Start: 10-24-2024 End: 01-09-2026 take 0.5 tablet by mouth once daily metoprolol succinate XL (Toprol-XL) 25 mg 24 hr tablet Indications: Permanent atrial fibrillation (Multi) Take 0.5 tablets (12.5 mg) by mouth once daily. 45 tablet 3 01/09/2025 01/09/2026 Active Start: 10-24-2024 End: 03-12-2025 take 2 tablets by mouth once daily Metoprolol Succinate 25 mg Tablet Extended Release 24 Hr Discontinued 12.5 mg PO DAILY 15 30 0 October 24, 2024 12:00am March 12, 2025 9:34am Start: 05-27-2024 End: 11-23-2024 take 0.5 tablet by mouth once daily metoprolol tartrate (Lopressor) 50 mg tablet Indications: Sinus node dysfunction (Multi) , Permanent atrial fibrillation (Multi) Take 0.5 tablets by mouth once daily. 15 tablet 5 05/27/2024 06/26/2024 Discontinued multivitamin tablet (14 sources) take 1 tablet by mouth once daily multivitamin tablet Take 1 tablet by mouth once daily. Active Multivitamin tablet (1 source) Start: 025 Multivitamin tablet Active 1 {tbl} PO daily March 12, 2025 12:00am mupirocin 0.02 mg/mg topical ointment (17 sources) RNA Synthetase Inhibitor Antibacterial Start: 024 mupirocin (BACTROBAN) 2 % ointment Apply topically 3 (three) times a day . 22 g 09/06/2023 Active NON FORMULARY (1 source) End: 023 take 1 tablet by mouth once daily NON FORMULARY Take 1 each by mouth once daily. Eye vitamins TABS 0 03/27/2023 Discontinued (Med List Cleanup) pantoprazole 40 mg delayed release oral tablet (20 sources) Proton Pump Inhibitor Start: 025 End: 026 take 1 tablet by mouth once daily before mealtime pantoprazole (ProtoNix) 40 mg EC tablet Indications: Gastroesophageal reflux disease without esophagitis Take 1 tablet (40 mg) by mouth once daily in the morning. Take before meals. 90 tablet 3 01/15/2025 01/15/2026 Active Start: 09-27-2024 Start: 03-14-2018 End: 03-14-2018 piperacillin 3000 mg / tazobactam 375 mg injection (1 source) Penicillin-class Antibacterial, beta Lactamase Inhibitor Start: 09-27-2024 take 3.375 g intravenously every six hours Psyllium Seed (With Dextrose) Oral Powder (1 source) take 1 dose by mouth three times daily psyllium (METAMUCIL) powder Take 1 packet by mouth 3 (three) times a day. Active pravastatin sodium 20 mg oral tablet (20 sources) HMG-CoA Reductase Inhibitor Start: 01-07-2021 End: 11-11-2021 pravastatin (PRAVACHOL) 20 MG tablet Start: 03-30-2015 End: 10-27-2020 take 1 tablet by mouth once daily, then take 1 tablet by mouth once daily pravastatin (PRAVACHOL) 20 MG tablet Indications: hyperlipidemia Take 1 tablet by mouth nightly Take one tab qd. 0 03/30/2015 10/27/2020 Discontinued (Discontinued by another clinician) predniSONE 10 mg oral tablet (4 sources) Start: 09-18-2024 End: 10-08-2024 Start: 01-24-2023 predniSONE 20 MG Oral Tablet Quantity: 10 Refills: 0 Ordered: 24-Jan-2023 DO Start : 24-Jan-2023 Active sacubitril 24 mg / valsartan 26 mg oral tablet (3 sources) Angiotensin 2 Receptor Vic Start: 04-16-2025 End: 04-16-2026 take 1 tablet by mouth twice daily sacubitriL-valsartan (Entresto) 24-26 mg tablet Indications: Chronic systolic (congestive) heart failure (Multi) , Heart failure with mid-range ejection fraction (HFmEF) (Multi) Take 1 tablet by mouth 2 times a day. 60 tablet 11 04/16/2025 04/16/2026 Active 1 ml testosterone cypionate 200 mg/ml injection (20 sources) Androgen Start: 03-26-2025 End: 09-10-2025 testosterone cypionate (Depo-Testosterone) 200 mg/mL injection Indications: Low testosterone in male , Hypogonadism in male Inject 0.5 mL (100 mg) into the muscle every 14 (fourteen) days. 1 mL 5 03/26/2025 09/10/2025 Active Start: 12-28-2023 End: 12-27-2024 testosterone cypionate (Depo -Testosterone) 200 mg/mL injection Indications: Low testosterone in male Inject 0.5 mL (100 mg) into the muscle every 14 (fourteen) days. 1 mL 5 12/28/2023 08/13/2024 Discontinued (Stop Taking at Discharge) Start: 09-11-2023 End: 11-26-2024 testosterone cypionate (Depo -Testosterone) 100 mg/mL injection Indications: Low testosterone in male Inject 1 mL (100 mg) into the muscle every 14 (fourteen) days. 10 mL 3 11/27/2023 12/28/2023 Discontinued (Therapy completed) Start: 07-26-2023 End: 05-01-2024 testosterone cypionate (Depo -Testosterone) 100 mg/mL injection Indications: Low testosterone in male Inject 0.5 mL (50 mg) into the muscle every 14 (fourteen) days. 10 mL 0 07/26/2023 09/04/2023 Discontinued (Therapy completed) Start: 04-30-2023 End: 07-29-2023 testosterone (Androderm) 4 m g/24 hr Indications: Low testosterone Place 1 patch over 24 hours on the skin once daily. 30 patch 2 04/30/2023 06/13/2023 Discontinued (Cost of medication) therapeutic multivitamin (THERAGRAN) tablet (20 sources) take 1 tablet by keith th once daily therapeutic multivitamin (THERAGRAN) tablet Take 1 (one) tablet by mouth daily . Active take 1 tablet by mouth once carrie y therapeutic multivitamin (THERAGRAN) tablet Take 1 (one) tablet by mouth daily . 0 Active take 1 tablet by mouth once carrie y therapeutic multivitamin (THERAGRAN) tablet Take 1 tablet by mouth daily 0 Active take 1 tablet by mouth once carrie y therapeutic multivitamin (THERAGRAN) tablet Take 1 tablet by mouth daily Active Therapeutic Multivitamin Tablet (2 sources) take 1 tablet by mouth once daily therapeutic multivitamin (THERAGRAN) tablet Take 1 tablet by mouth daily Active traZODone hydrochloride 50 mg oral tablet (20 sources) Serotonin Reuptake Inhibitor Start: 3 End: 4 take 0.5 tablet by mouth once daily at bedtime, then take 0.5 tablet by mouth at bedtime traZODone (Desyrel) 50 mg tablet Indications: Major depressive disorder, single episode, in partial remission (CMS/HCC) Take 0.5 tablets (25 mg) by mouth once daily at bedtime. TAKE 0.5 TABLET BEDTIME 45 tablet 3 03/27/2023 06/13/2023 Discontinued (Therapy completed) Start: 06-21-2019 traZODone (TRIPP YREL) 50 MG tablet TAKE 1 2 (ONE HALF) TABLET BY MOUTH ONCE DAILY AT BEDTIME 06/21/2019 Active traZODone 50 mg oral tablet ; 25 milligram(s) orally once a day (at bedtime) Quantity: 0 Refills: 0 Ordered: 21-Jul-2020 Reggie Freire Generic Substitution Allowed trimethobenzamide (2 sources) Antiemetic Start: 09-27-2024 inject 200 mg by int ramuscular injection every six hours as needed Start: 09-27-2024 End: 09-27-2024 inject 200 mg by intramuscular injection every eight hours as needed vit A/vit C/vit E/zinc/copper (PRESERVISION AREDS ORAL) (3 sources) vit A/vit C/vit E/zinc/copper (PRESERVISION AREDS ORAL) Take by mouth . Active vit B cplxC 45-wawwjgm-wwn-Q10 (Brain Ectja-VGP-Bk Q10) 140-10-10 mg Tab (10 sources) vit B cplxC 83-xqteras-ndv-Q10 (Brain Cflcj-XBX-Fn Q10) 140-10-10 mg Tab Take by mouth . Active vit C,J-Tb-etcfa-lutein-zeaxan (Eye Health Vitamin-Mineral) 250-90-10-1 mg cap (10 sources) vit C,G-Wx-efkji-lutein-zeaxa n (Eye Health Vitamin-Mineral) 250-90-10-1 mg cap Take by mouth . Active Vit C,F-Oo-Mdhyg-Lutein-Zeaxan (Preservision Areds-2) 250-90-40-1 mg capsule (1 source) Start: 03-12-2025 take 2 capsules by mouth twice daily Vit C,P-Ur-Udsnk-Lutein-Zeaxa n (Preservision Areds-2) 250-90-40-1 mg capsule Active 1 {tbl} PO TWICE A DAY March 12, 2025 12:00am vit C/E/Zn/coppr/lutein/zeaxan (PRESERVISION AREDS-2 ORAL) (14 sources) take 1 tablet by mouth once daily vit C/E/Zn/coppr/lutein/zeaxa n (PRESERVISION AREDS-2 ORAL) Take 1 tablet by mouth once daily. Active vit C/E/Zn/coppr /lutein/zeaxan (PRESERVISION AREDS-2 ORAL) Take by mouth. Active Zinc (20 sources) End: 03-27-2023 take 1 tablet by mouth once daily ZINC ORAL Take 1 tablet by mouth once daily. 0 03/27/2023 Discontinued (Med List Cleanup) End: 11-11-2021 ZINC ORAL Take by mouth . 0 11/11/2021 Discontinued (Patient's Request) ZINC ORAL Take b y mouth . 0 Active Completed/Discontinued Medications Medication Drug Class(es) Dates Sig (Normalized) Sig (Original) acetaminophen 300 mg / codeine phosphate 30 mg oral tablet (3 sources) Opioid Agonist Start: 08-28-2015 End: 03-05-2018 acetaminophen-codei ne (TYLENOL #3) 300-30 mg per tablet acetaminophen 325 mg / HYDROcodone bitartrate 5 mg oral tablet (3 sources) Opioid Agonist End: 03-05-2018 take 1 tablet by mouth every four hours as needed HYDROcodone-acetami nophen (NORCO) 5-325 mg per tablet Take 1 tablet by mouth every 4 to 6 hours as needed for pain. 03/05/2018 Discontinued acetaminophen 325 mg / oxyCODONE hydrochloride 5 mg oral tablet (12 sources) Opioid Agonist Start: 03-25-2018 End: 10-27-2020 oxyCODONE-acetamino phen (PERCOCET) 5-325 mg per tablet Start: 03-13-2018 End: 03-14-2018 take 1-2 tablets by mouth every four hours as needed Start: 03-13-2018 End: 03-20-2018 take 1 tablet by mouth every four hours as needed for pain oxyCODONE-acetaminophen (PERCOCET) 5-325 mg per tablet Indications: Lumbar stenosis with neurogenic claudication Take 1 (one) tablet by mouth every 4 (four) hours as needed for pain. 60 tablet 0 03/13/2018 03/20/2018 Active Acetaminophen 160 mg/5 mL elixir (1 source) Start: 10-08-2024 End: 10-24-2024 Acetaminophen 160 mg/5 mL elixir Discontinued 640 mg feeding tube Q4H as needed for pain (scale score 1-3) October 08, 2024 12:00am October 24, 2024 3:23pm [id number] 200 actuat albuterol 0.09 mg/actuat metered dose inhaler (12 sources) beta2-Adrenerg ic Agonist Start: 06-12-2024 End: 09-18-2024 take 1-2 puff(s) by inhalation every six hours for wheezing albuterol 90 mcg/actuation inhaler Indications: Bronchitis Inhale 1-2 puffs every 6 hours if needed for wheezing. 18 g 06/12/2024 09/18/2024 Discontinued (Med List Cleanup) Start: 06-01-2021 take 1 puff(s) by in halation twice daily as needed for cough albuterol 90 mcg/inh inhalation aerosol ; 1 puff(s) inhaled 2 times a day as needed for cough Quantity: 8.5 Refills: 0 Ordered: 01-Jun-2021 Deniz Bañuelos Start: 01-Jun-2021 Generic Substitution Allowed Comments: For inhalation only.It is very important that you take or use this exactly as directed. Do not skip doses or discontinue unless directed by your doctor.Obtain medical advice before taking any non-prescription drugs as some may affect the action of this medication.Shake well before use. Comment on above: For inhalation only. It is very important that you take or use this exactly as directed. Do not skip doses or discontinue unless directed by your doctor.Obtain medical advice before taking any non-prescription drugs as some may affect the action of this medication.Shake well before use. amiodarone hydrochloride 200 mg oral tablet (20 sources) Antiarrhythmic Start: 09-18-19 take 1 tablet by mouth once daily amiodarone (Pacerone) 100 mg tablet Indications: Atrial fibrillation, unspecified type (Multi) Take 1 tablet (100 mg) by mouth once daily. 90 tablet 3 09/18/2023 Active Start: 05-31-2022 End: 10-08-2024 amiodarone (Pacerone) 200 mg tablet Indications: Atrial fibrillation, unspecified type (Multi) Take 1/2 tablet daily 15 tablet 11/29/2023 12/26/2023 Discontinued Start: 01-19-2022 take 1 tablet by keith th once daily Amiodarone HCl - 200 MG Oral Tablet Take one tablet daily. Quantity: 90 Refills: 0 Ordered: 13-Feb-2022 Jose Carlos DELGADO Vidhi M Start : 19-Jan-2022 Active Start: 01-05-2022 take 1 tablet by keith th once daily Amiodarone HCl - 400 MG Oral Tablet TAKE 1 TABLET DAILY. Quantity: 0 Refills: 0 Ordered: 05-Jan-2022 Tye Anne MD Start : 05-Jan-2022 Active take 1 tablet by keith th once daily amiodarone (Pacerone) 100 mg tablet Take 1 tablet (100 mg) by mouth once daily. 0 Active amoxicillin 875 mg oral tablet (5 sources) Penicillin-class Antibacterial Start: 06-01-2021 take 1 tablet by mouth once daily Amoxicillin 875 MG Oral Tablet TAKE 1 TABLET EVERY 12 HOURS DAILY. Quantity: 20 Refills: 0 Ordered: 01-Jun-2021 Tye Anne MD Start : 01-Jun-2021 Active amoxicillin 40 mg/ml / clavulanate 5.7 mg/ml oral suspension (5 sources) Penicillin-class Antibacterial Start: 10-08-2024 End: 10-24-2024 Amoxicillin-Pot Clavulanate 200-28.5 mg/5 mL suspension for reconstitution Discontinued 22 mL feeding tube Q12H October 08, 2024 12:00am October 24, 2024 3:23pm antibiotic Start: 10-07-2024 End: 10-11-2024 Start: 06-01-2021 End: 06-07-2021 take 1 tablet by mouth twice daily at mealtime amoxicillin-clavulanate 875 mg-125 mg oral tablet ; 1 tab(s) orally 2 times a day Quantity: 14 Refills: 0 Ordered: 01-Jun-2021 Deniz Bañuelos Start: 01-Jun-2021 End: 07-Jun-2021 Status: Completed Generic Substitution Allowed Comments: Finish all this medication unless otherwise directed by prescriber.Take with food or milk. Comment on above: Finish all this medication unless otherw ise directed by prescriber.Take with food or milk. ANTIOX #11/OM3/DHA/EPA/ LUT/BLAZE (OCUVITE ADULT 50+ ORAL) (20 sources) End: take 1 tablet by mouth once daily ANTIOX #11/OM3/DHA/EPA/LUT/Z EA (OCUVITE ADULT 50+ ORAL) Take 1 tablet by mouth daily EYE PROMISE. 0 08/01/2022 Discontinued (Discontinued by another clinician) take 1 tablet by mouth once carrie y ANTIOX #11/OM3/DHA/EPA/LUT/BLAZE (OCUVITE ADULT 50+ ORAL) Take 1 tablet by mouth daily EYE PROMISE. 0 Active take 1 tablet by mouth once carrie y ANTIOX #11/OM3/DHA/EPA/LUT/BLAZE (OCUVITE ADULT 50+ ORAL) Take 1 tablet by mouth daily EYE PROMISE. Active take 1 tablet by mouth once carrie y ANTIOX #11/OM3/DHA/EPA/LUT/BLAZE (OCUVITE ADULT 50+ ORAL) Take 1 tablet by mouth daily Active ascorbic acid 113 mg / beta carotene 7160 mg / cuprous oxide 0.4 mg / dl-alpha tocopheryl acetate 100 unt / zinc oxide 17.4 mg oral tablet (20 sources) Vitamin C End: 08-13-2024 take 1 tablet by mouth once daily vitamins A,C,H-edpo-oizynd (Eye Multivitamin) 2,148 mcg-113 mg-45 mg-17.4mg tablet Take 1 tablet by mouth once daily. 08/13/2024 Discontinued (Stop Taking at Discharge) aspirin 81 mg oral tablet (20 sources) Nonsteroidal Anti-inflammatory Drug End: 05-30-2021 take 1 tablet by mouth once daily at bedtime aspirin 81 mg oral tablet ; 1 tab(s) orally once a day (at bedtime) Quantity: 0 Refills: 0 Ordered: 21-Jul-2020 Reggie Freire Status: Completed Generic Substitution Allowed End: 11-11-2021 take 1 tablet by mouth once daily aspirin 81 MG EC tablet Take 81 mg by mouth daily . 0 11/11/2021 Discontinued (Patient's Request) take 1 tablet by keith th once daily Aspirin 81 81 MG Oral Tablet Chewable CHEW AND SWALLOW 1 TABLET BY MOUTH EVERY DAY Quantity: 0 Refills: 0 Ordered: 10-Aug-2021 DO Active End: 03-05-2018 take 1 tablet by mouth twice daily aspirin 325 MG tablet Take 325 mg by mouth 2 (two) times a day. 03/05/2018 Discontinued B6/folic/B12/coffee/phosphat id (NEURIVA PLUS BRAIN PERFORMANCE ORAL) (20 sources) End: 10-08-2024 take 1 tablet by mouth once daily B6/folic/B12/coffee/phosphatid (NEURIVA PLUS BRAIN PERFORMANCE ORAL) Take 1 tablet by mouth once daily. 10/08/2024 Discontinued (Stop Taking at Discharge) take 1 tablet by keith th once daily B6/folic/B12/coffee/phosphatid (NEURIVA PLUS BRAIN PERFORMANCE ORAL) Take 1 tablet by mouth once daily. Suspended take 1 tablet by keith th once daily B6/folic/B12/coffee/phosphatid (NEURIVA PLUS BRAIN PERFORMANCE ORAL) Take 1 tablet by mouth once daily. Active take 1 tablet by keith th once daily B6/folic/B12/coffee/phosphatid (NEURIVA PLUS BRAIN PERFORMANCE ORAL) Take 1 tablet by mouth once daily. 0 Active benzonatate 100 mg oral capsule (5 sources) Non-narcotic Antitussive Start: 09-08-2021 take 1 capsule by mouth three times daily as needed Benzonatate 100 MG Oral Capsule TAKE 1 CAPSULE 3 TIMES DAILY NEEDED. Quantity: 15 Refills: 1 Ordered: 08-Sep-2021 Gabriel DUPREENAVJOT Pooja Start : 08-Sep-2021 Active Start: 08-25-2021 End: 08-28-2021 take 1 capsule by mouth three times daily for cough benzonatate 100 mg oral capsule ; 1 cap(s) orally 3 times a day, As Needed for cough Quantity: 12 Refills: 0 Ordered: 25-Aug-2021 Andrea Baker I Start: 25-Aug-2021 End: 28-Aug-2021 Status: Completed Generic Substitution Allowed Comments: May cause drowsiness. Alcohol may intensify this effect. Use care when operating dangerous machinery.Swallow whole. Do not crush. Comment on above: May cause drowsiness . Alcohol may intensify this effect. Use care when operating dangerous machinery.Swallow whole. Do not crush. calcium carbonate 500 mg chewable tablet (14 sources) Start: 09-26-2024 End: 09-27-2024 End: 10-27-2020 CALCIUM CARBONATE (CALCIUM A NTACID ORAL) Take 1,000 mg by mouth as needed (heartburn). 0 10/27/2020 Discontinued (Discontinued by another clinician) calcium chloride 0.0014 meq/ ml / potassium chloride 0.004 meq/ml / sodium chloride 0.103 meq/ml / sodium lactate 0.028 meq/ml injectable solution (4 sources) Start: 09-30-2024 End: 10-02-2024 Start: 03-13-2018 End: 03-13-2018 lactated Ringers infusion CARTILAGE/COLLAGEN/HYALUR AC /C (JOINT HEALTH ULTRA ORAL) (3 sources) End: 03-05-2018 take 1 tablet by mouth once daily CARTILAGE/COLLAGEN/HYALUR AC/C (JOINT HEALTH ULTRA ORAL) Take 1 tablet by mouth Daily. 03/05/2018 Discontinued take 1 tablet by keith th once daily CARTILAGE/COLLAGEN/HYALUR AC/C (JOINT HE ALTH ULTRA ORAL) Take 1 tablet by mouth Daily. Active ceFAZolin 2000 mg injection (1 source) Cephalosporin Antibacterial Start: 03-13-2018 End: 03-14-2018 take 2000 mg intravenous route every eight hours cyclobenzaprine hydrochloride 10 mg oral tablet (9 sources) Muscle Relaxant Start: 08-01-2018 End: 10-27-2020 cyclobenzaprine (FLEXERIL) 10 MG tablet Start: 03-13-2018 End: 03-14-2018 take 5 mg by mouth every eight hours as needed dapagliflozin 10 mg oral tablet (20 sources) Sodium-Glucose Cotransporter 2 Inhibitor Start: 07-08-2021 End: 08-01-2022 Farxiga 10 mg tablet Take 10 mg by mouth daily ONCE DAILY IN THE MORNING . 0 07/08/2021 08/01/2022 Discontinued (Discontinued by another clinician) 1 ml dexamethasone phosphate 10 mg/ml injection (6 sources) Corticosteroid Start: 09-12-2024 End: 09-12-2024 As needed, Starting on Sun09/12/24 at 0959, Intraprocedure Start: 05-28-2024 End: 05-28-2024 As needed, Starting on Sun07/28/23 at 1251, Intraprocedure Start: 12-07-2023 End: 12-07-2023 As needed, Starting on Sun at 1023, Intraprocedure Start: 12-07-2023 End: 12-07-2023 As needed, Starting on Sun at 1023, Intraprocedure diclofenac sodium 0.01 mg/mg topical gel (20 sources) Nonsteroidal Anti-inflammatory Drug Start: 04-28-2024 End: 10-08-2024 diclofenac sodium (Voltaren) 1 % gel Indications: Generalized osteoarthritis of multiple sites , Calcium pyrophosphate deposition disease , Chronic bilateral low back pain with bilateral sciatica , Spondylosis of lumbosacral region without myelopathy or radiculopathy , On colchicine therapy Apply 4.5 inches (4 g) topically 4 times a day as needed (Left thumb trigger finger). 4 g 2 04/28/2024 10/08/2024 Discontinued (Stop Taking at Discharge) docusate sodium 50 mg / sennosides, shelter 8.6 mg oral tablet (1 source) Start: 03-13-2018 End: 03-14-2018 esomeprazole 20 mg delayed release oral capsule (8 sources) Proton Pump Inhibitor Start: 10-08-2024 End: 10-24-2024 Esomeprazole Magnesium (Nexium) 20 mg capsule,delayed release(DR/EC) Discontinued 40 mg feeding tube DAILY October 08, 2024 12:00am October 24, 2024 3:23pm reflux Start: 10-07-2024 End: 10-29-2024 take 40 mg by mouth once daily before mealtime esomeprazole (NexIUM) 20 mg packet Indications: Esophageal perforation Take 40 mg by mouth once daily in the morning. Take before meals. Administer via jejunostomy tube 10/07/2024 10/29/2024 Discontinued (Med List Cleanup) Eye Vitamins TABS (20 sources) take 1 tablet into the eye(s) once daily Eye Vitamins TABS TAKE 1 TABLET DAILY. Quantity: 0 Refills: 0 Ordered: 10-Aug-2021 DO Active 50 ml fentaNYL 0.05 mg/ml injection (1 source) Opioid Agonist Start: 03-13-20 End: 03-13-20 18 fexofenadine hydrochloride 180 mg oral tablet (20 sources) Histamine-1 Receptor Antagonist Start: 12-08-19 End: 07-03-19 take 1 tablet by mouth once daily fexofenadine (Sulaiman) 180 mg tablet Indications: Chronic rhinitis Take 1 tablet (180 mg) by mouth once daily. 90 tablet 3 10/31/2023 07/03/2024 Discontinued (Reorder) fluconazole 40 mg/ml oral suspension (3 sources) Azole Antifungal Start: 10-09-19 End: 10-25-19 Fluconazole (Diflucan) 40 mg/mL suspension for reconstitution Discontinued 400 mg feeding tube Q24H October 08, 2024 12:00am October 24, 2024 3:23pm fungal infection Start: 10-07-2024 End: 10-11-2024 Start: 09-28-2024 FLUoxetine 10 mg oral capsule (3 sources) Serotonin Reuptake Inhibitor Start: 11-27-2015 End: 03-05-2018 FLUoxetine (PROZAC) 10 MG capsule FreeStyle Vince 14 Day [place] misc (20 sources) Start: 09-11-2023 End: 09-18-2024 FreeStyle Vince 14 Day [place] misc Indications: 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, without long-term current use of insulin (Multi) Use as instructed 1 each 09/11/2023 09/18/2024 Discontinued (Med List Cleanup) Start: 09-11-2023 FreeStyle Libr e 14 Day [place] misc Indications: 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, without long-term current use of insulin (Multi) Use as instructed 1 each 09/11/2023 Active Start: 09-11-2023 FreeStyle Libr e 14 Day [place] misc Indications: 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, without long-term current use of insulin (CMS/HCC) Use as instructed 1 each 0 09/11/2023 Active FreeStyle Vince 14 Day Sensor kit (20 sources) Start: 07-03-2024 End: 09-18-2024 inject 1 dose by subcutaneous injection once FreeStyle Vince 14 Day Sensor kit Indications: 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, without long-term current use of insulin (Multi) Inject 1 each under the skin every 14 (fourteen) days. Use as instructed 6 each 3 07/03/2024 09/18/2024 Discontinued (Med List Cleanup) Start: 07-03-2024 End: 07-03-2025 inject 1 dose by subcutaneous injection once FreeStyle Vince 14 Day Sensor kit Indications: 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, without long-term current use of insulin (Multi) Inject 1 each under the skin every 14 (fourteen) days. Use as instructed 6 each 3 07/03/2024 07/03/2025 Active Start: 09-11-2023 End: 07-03-2024 FreeStyle Vince 14 Day Senso r kit Indications: 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, without long-term current use of insulin (Multi) Use as instructed 2 each 09/11/2023 07/03/2024 Discontinued (Reorder) Start: 09-11-2023 FreeStyle Libr e 14 Day Sensor kit Indications: 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, without long-term current use of insulin (Multi) Use as instructed 2 each 11 09/11/2023 Active Start: 09-11-2023 FreeStyle Libr e 14 Day Sensor kit Indications: 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, without long-term current use of insulin (CMS/HCC) Use as instructed 2 each 09/11/2023 Active 150 ml glucose 50 mg/ml inje ction (3 sources) Start: 10-02-2024 End: 10-03-2024 Start: 09-26-2024 1 ml heparin sodium, porcine 5000 unt/ml injection (1 source) Unfractionated Heparin, Anti-coagulant Start: 09-30-2024 End: 10-04-2024 inject 5000 [IU] by subcutaneous injection every eight hours hydroCHLOROthiazide 12.5 mg / lisinopril 20 mg oral tablet (3 sources) Thiazide Diuretic, Angiotensin Converting Enzyme Inhibitor Start: 04-20-2015 End: 03-05-2018 take 1 tablet by mouth once daily lisinopril-hydr ochlorothiazide (PRINZIDE,ZESTO RETIC) 20-12.5 mg per tablet Take 1 tablet by mouth daily 04/20/2015 03/05/2018 Discontinued 0.5 ml HYDROmorphone hydrochloride 1 mg/ml prefilled syringe (4 sources) Opioid Agonist Start: 09-27-2024 End: 09-29-2024 Start: 09-26-2024 End: 09-26-2024 Start: 09-26-2024 End: 09-26-2024 ibuprofen 200 mg oral tablet (13 sources) Nonsteroidal Anti-inflammatory Drug End: 10-08-2024 take 3 tablets by mouth every six hours as needed ibuprofen 200 mg tablet Take 3 tablets (600 mg) by mouth every 6 hours if needed for mild pain (1 - 3). 10/08/2024 Discontinued (Stop Taking at Discharge) iohexol (OMNIPaque) 300 mg iodine/mL solution (2 sources) Start: 09-12-2024 End: 09-12-2024 As needed, Starting on Sun09/12/24 at 1000, Intraprocedure iohexol (OMNIPaque) 300 mg iodine/mL solution 3 mL (1 source) Start: 03-28-2024 End: 03-28-2024 3 mL, miscellaneous, Once in OR, Starting on Sun03/28/24 at 1320, For 1 dose, Intraprocedure iohexol (OMNIPaque) 300 mg iodine/mL solution 6 mL (4 sources) Start: 05-28-2024 End: 05-28-2024 6 mL, miscellaneous, Once in OR, Starting on Sun05/28/24 at 1315, For 1 dose, Intraprocedure Start: 12-07-2023 End: 12-07-2023 6 mL, miscellaneous, Once in OR, Starting on Sun12/07/23 at 0950, For 1 dose, Intraprocedure 1 ml ketorolac tromethamine 15 mg/ml injection (1 source) Nonsteroidal Anti-inflammatory Drug, Cyclooxygenase Inhibitor Start: 09-30-2024 End: 10-05-2024 take 15 mg intravenously every six hours as needed [id number]-4-DHA -EPA-LIPIDS ORAL (12 sources) End: 10-27-2020 take 300 mg by mouth once daily [id number] ORAL Take 300 mg by mouth daily. 0 10/27/2020 Discontinued (Discontinued by another clinician) take 300 mg by mouth once daily [id number]-[id number]-[id number]-III-ZRERGH ORAL Take 3 00 mg by mouth daily. 0 Active take 300 mg by mouth once daily [id number] ORAL Take 3 00 mg by mouth daily. Active lidocaine 0.04 mg/mg medicated patch (20 sources) Antiarrhythmic, Amide Local Anesthetic Start: 10-08-2024 End: 10-24-2024 Lidocaine 4 % adhesive patch,medicated Discontinued 1 NMA TOPICAL Q12H October 08, 2024 12:00am October 24, 2024 3:23pm pain Start: 09-26-2024 End: 10-29-2024 lidocaine 4 % patch Indicati ons: Esophageal perforation Place 1 patch over 12 hours on the skin once daily. Remove & discard patch within 12 hours or as directed by . 10/08/2024 10/29/2024 Discontinued (Med List Cleanup) Start: 09-12-2024 End: 09-12-2024 As needed, Starting on Sun at 1000, Intraprocedure Start: 09-12-2024 End: 09-12-2024 As needed, Starting on Sun at 0959, Intraprocedure Start: 07-20-2024 End: 08-01-2024 apply 1 dose transdermal route once daily, then apply 1 dose transdermal route every twelve hours lidocaine 4 % patch Place 1 (one) patch on the skin daily Remove & Discard patch within 12 hours or as directed by MD for 12 doses . 12 patch 07/20/2024 08/01/2024 Active Start: 05-28-2024 End: 05-28-2024 120 mg (6 mL), infiltration, Once, On Sun05/28/24 at 1330, For 1 dose, Intraprocedure Start: 05-28-2024 End: 05-28-2024 120 mg (6 mL), infiltration, Once, On Sun05/28/24 at 1330, For 1 dose, Intraprocedure Start: 05-28-2024 End: 05-28-2024 As needed, Starting on Sun07/28/23 at 1251, Intraprocedure Start: 03-28-2024 End: 03-28-2024 120 mg (6 mL), infiltration, Once, On Sun03/28/24 at 1345, For 1 dose, Intraprocedure Start: 12-07-2023 End: 12-07-2023 As needed, Starting on Sun at 1023, Intraprocedure Start: 12-07-2023 End: 12-07-2023 120 mg (6 mL), infiltration, Once, On Sun12/07/23 at 1015, For 1 dose, Intraprocedure lisinopril 10 mg oral tablet (20 sources) Angiotensin Converting Enzyme Inhibitor Start: 06-29-2022 End: 09-26-2023 take 1 tablet by mouth once daily Lisinopril 10 MG Oral Tablet take 1 tablet by mouth once daily Quantity: 90 Refills: 3 Ordered: 21-Aug-2022 Tye Anne MD Start : 29-Jun-2022 Active Start: 02-14-2016 End: 04-30-2023 lisinopril (PRINIVIL,ZESTRIL ) 20 MG tablet Indications: hypertension 1 (one) tablet (20 mg total) every morning Reasons: high blood pressure. 0 02/14/2016 04/30/2023 Discontinued (Side effects) End: 12-07-2022 take 1 tablet by mouth once daily lisinopril 5 mg tablet Take 1 tablet (5 mg) by mouth once daily. 0 12/07/2022 Discontinued (Side effects) loratadine 10 mg oral tablet (1 source) Start: 03-14-2018 End: 03-14-2018 magnesium hydroxide 80 mg/ml oral suspension (1 source) Start: 03-13-2018 End: 03-14-2018 meloxicam 7.5 mg oral tablet (19 sources) Nonsteroidal Anti-inflammatory Drug Start: 03-15-2021 take 1 tablet by mouth twice daily as needed Meloxicam 7.5 MG Oral Tablet TAKE 1 TABLET TWICE DAILY NEEDED. Quantity: 60 Refills: 0 Ordered: 04-Apr-2021 Susana Gibson MD Start : 15-Mar-2021 Active Start: 10-28-2020 End: 08-01-2022 take 1 tablet by mouth once daily meloxicam (MOBIC) 15 MG tablet Take 15 mg by mouth daily . 0 10/28/2020 08/01/2022 Discontinued (Discontinued by another clinician) 24 hr metFORMIN hydrochlorid e 750 mg extended release oral tablet (20 sources) Biguanide Start: 07-03-2024 End: 10-08-2024 Start: 08-12-2020 take 1 tablet by keith th once daily metFORMIN 750 mg oral tablet, extended release ; 1 tab(s) orally once a day. Quantity: 0 Refills: 0 Ordered: 13-May-2021 Reggie Freire Start: 12-Aug-2020 Generic Substitution Allowed Start: 05-14-2015 End: 07-03-2025 take 1 tablet by mouth twice daily metFORMIN XR (Glucophage-XR) 750 mg 24 hr tablet Indications: 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, without long-term current use of insulin (Multi) Take 1 tablet (750 mg) by mouth 2 times a day. 180 tablet 3 07/26/2023 05/09/2024 Discontinued (Reorder) methylPREDNISolone (5 sources) Corticosteroid Start: 07-28-2024 End: 08-13-2024 methylPREDNISolone (Medrol Dospak) 4 mg tablets Indications: 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 stenosis Follow schedule on package instructions 21 tablet 07/28/2024 08/13/2024 Discontinued (Stop Taking at Discharge) Start: 07-28-2024 methylPREDNISo lone (Medrol Dospak) 4 mg tablets Indications: 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 stenosis Follow schedule on package instructions 21 tablet 07/28/2024 Active Start: 03-28-2024 End: 03-28-2024 As needed, Starting on Sun at 1325, Intraprocedure morphine sulfate 4 mg/ml oral solution (10 sources) Opioid Agonist Start: 10-08-2024 End: 10-24-2024 Morphine 20 mg/5 mL (4 mg/mL) solution Discontinued 5 mg feeding tube Q4H as needed for pain (scale score 7-10) 0 October 08, 2024 12:00am October 24, 2024 3:24pm Start: 10-07-2024 End: 10-29-2024 morphine 10 mg/5 mL solution Indications: Esophageal perforation 2.5 mL (5 mg) by j-tube route every 4 hours if needed for severe pain (7 - 10). 10/07/2024 10/29/2024 Discontinued (Med List Cleanup) Start: 10-07-2024 Start: 09-29-2024 End: 09-30-2024 take 4 mg intravenously every six hours as needed Multi Vitamin Oral Tablet (20 sources) take 1 tablet by mouth once daily Multi Vitamin Oral Tablet TAKE 1 TABLET DAILY. Quantity: 0 Refills: 0 Ordered: 10-Aug-2021 DO Active Multivitamin preparation (20 sources) End: 10-08-2024 take 1 tablet by mouth once daily multivitamin (MULTIPLE VITAMINS ORAL) Take 1 tablet by mouth once daily. 10/08/2024 Discontinued (Stop Taking at Discharge) take 1 tablet by mouth once carrie y multivitamin (MULTIPLE VITAMINS ORAL) Take 1 tablet by mouth once daily. Suspended take 1 tablet by mouth once carrie y multivitamin (MULTIPLE VITAMINS ORAL) Take 1 tablet by mouth once daily. Active take 1 tablet by mouth once carrie y multivitamin (MULTIPLE VITAMINS ORAL) Take 1 tablet by mouth once daily. 0 Active take 1 capsule by mouth once vane ly Neuriva Brain performance Plus Therapeutic Multiple Vitamins oral capsule ; 1 cap(s) orally once a day Quantity: 0 Refills: 0 Ordered: 06-Sep-2021 Mumtaz Campoverde Generic Substitution Allowed take 1 tablet by mouth once carrie y Multiple Vitamins oral tablet ; 1 tab(s) orally once a day Quantity: 0 Refills: 0 Ordered: 16-Mar-2020 Desiree Hagen Generic Substitution Allowed naloxone (NARCAN) injection 0.1 mg (1 source) Start: 03-13-2018 End: 03-14-2018 naloxone (NARCAN) injection 0.1 mg Neuriva CAPS (20 sources) Neuriva CAPS CARLOS E 1 CAPSULE Daily Quantity: 0 Refills: 0 Ordered: 10-Aug-2021 DO Active omeprazole 40 mg delayed release oral capsule (20 sources) Proton Pump Inhibitor Start: 08-20-2021 End: 07-03-2025 take 1 capsule by mouth once daily omeprazole (PriLOSEC) [address] capsule Indications: Gastroesophageal reflux disease without esophagitis Take 1 capsule (40 mg) by mouth once daily. 90 capsule 3 10/31/2023 07/03/2024 Discontinued (Reorder) Start: 05-14-2015 End: 09-16-2021 take 1 capsule by mouth once daily in the morning omeprazole (PRILOSEC) 20 MG capsule Indications: gastroesophageal reflux disease Take 1 capsule by mouth every morning . 0 05/14/2015 09/16/2021 Discontinued take 1 tablet by keith th once daily omeprazole 20 mg oral delayed release tablet ; 1 tab(s) orally once a day Quantity: 0 Refills: 0 Ordered: 16-Mar-2020 Desiree Hagen Status: Discontinued Generic Substitution Allowed 2 ml ondansetron 2 mg/ml injection (2 sources) Serotonin-3 Receptor Antagonist Start: 09-26-2024 End: 09-26-2024 Start: 03-13-2018 End: 03-14-2018 take 1 tablet by mouth every six hours as needed oseltamivir 75 mg oral capsule (1 source) Neuraminidase Inhibitor Start: 08-25-2021 End: 08-29-2021 take 1 capsule by mouth twice daily oseltamivir 75 mg oral capsule ; 1 cap(s) orally 2 times a day x 5 days Quantity: 10 Refills: 0 Ordered: 25-Aug-2021 Andrea Baker I Start: 25-Aug-2021 End: 29-Aug-2021 Status: Completed Generic Substitution Allowed Comments: Check with your doctor before becoming .Finish all this medication unless otherwise directed by prescriber. Comment on above: Check with your doct or before becoming .Finish all this medication unless otherwise directed by prescriber. oxyCODONE hydrochloride 5 mg oral tablet (2 sources) Opioid Agonist Start: 09-26-2024 End: 09-27-2024 take 5 mg by mouth every six hours as needed Start: 03-13-2018 End: 03-14-2018 take 5-10 mg by mouth every four hours as needed oxymetazoline hydrochloride 0.5 mg/ml nasal spray (11 sources) End: 10-27-2020 oxymetazoline (AFRIN) 0.05 % nasal spray Indications: nasal congestion Instill 2 sprays into each nostril as needed for congestion. 0 10/27/2020 Discontinued (Discontinued by another clinician) oxymetazoline (A FRIN) 0.05 % nasal spray Indications: Nasal Congestion Instill 2 sprays into each nostril as needed for congestion. Active perflutren lipid microspheres (Definity) injection 2 mL of dilution (1 source) Start: 04-08-2024 End: 04-08-2024 2 mL of dilution, intravenous, Once in imaging, Starting on Sun04/08/24 at 0841, For 1 dose, Contrast - for use by imaging provider only. Prior to administration, Definity product must be activated. First, bring vial to room temperature. Then, shake vial for 45 seconds. Do not use if the 45 second activation cycle has not been completed. Following activation, the product will appear as a milky white suspension and may be used immediately. If not used within 5 minutes of activation, re-suspend by inverting and shaking the vial for 10 seconds. Discard unused product. Administration: Dilute 1.3 mL of activated DEFINITY with 8.7 mL of normal saline in a 10 mL syringe. Inject 0.5 mL of diluted DEFINITY when notified the images/film are unclear to enhance view of Left Ventricular borders. Repeat 0.5 mL of DEFINITY until clear images are obtained, not to exceed 10 mLs. Once images are obtained or limit of medication is reached, flush line with 10 mL of Normal Saline. pioglitazone 15 mg oral tablet (20 sources) Peroxisome Proliferator Receptor alpha Agonist, Peroxisome Proliferator Receptor gamma Agonist, Thiazolidinedione Start: 05-14-2015 End: 08-01-2022 take 1 tablet by mouth once daily pioglitazone (ACTOS) 15 MG tablet Take 15 mg by mouth nightly . 0 05/14/2015 08/01/2022 Discontinued (Discontinued by another clinician) 100 ml potassium chloride 0.2 meq/ml injection (4 sources) Start: 10-03-2024 End: 10-04-2024 take 20 mEq intravenously every two hours Start: 10-01-2024 End: 10-01-2024 Start: 09-30-2024 End: 09-30-2024 psyllium 3400 mg powder for oral suspension (10 sources) End: 10-27-2020 take 1 dose by mouth three times daily psyllium (METAMUCIL) powder Take 1 packet by mouth 3 (three) times a day. 0 10/27/2020 Discontinued (Discontinued by another clinician) take 1 dose by mouth three times daily psyllium (METAMUCIL) powder Take 1 packet by mouth 3 (three) times a day. 0 Active regadenoson (Lexiscan) injection 0.4 mg (1 source) Start: 06-09-2024 End: 06-09-2024 0.4 mg, intravenous, Once, On Sun06/09/24 at 0900, For 1 dose rivaroxaban 20 mg oral tablet (20 sources) Factor Xa Inhibitor Start: 10-08-2024 End: 10-24-2024 Rivaroxaban (Xarelto) 20 mg tablet Discontinued 20 mg GT DAILY October 08, 2024 12:00am October 24, 2024 3:24pm blood thinner Start: 10-04-2024 rivaroxaban (X arelto) 20 mg tablet Indications: Esophageal perforation Take 1 tablet (20 mg) by g-tube once daily in the evening. Take with meals. Take with food. Administer via jejunostomy tube please 10/07/2024 Active Start: 05-13-2021 End: 08-14-2025 take 1 tablet by mouth once daily rivaroxaban (Xarelto) 20 mg tablet Indications: Permanent atrial fibrillation (Multi) Take 1 tablet (20 mg) by mouth once daily. 90 tablet 3 10/31/2023 07/03/2024 Discontinued (Reorder) Xarelto 20 mg or al tablet ; 1 tab(s) orally once a day. HOLD XARELTO. MAY RESUME 2021. Quantity: 0 Refills: 0 Ordered: 14-Jun-2022 Yeni Alves Generic Substitution Allowed Comment on above: Check with your doct or before becoming .It is very important that you take or use this exactly as directed. Do not skip doses or discontinue unless directed by your doctor.Obtain medical advice before taking any non-prescription drugs as some may affect the action of this medication.Take with food. 72 hr scopolamine 0.0139 mg/hr transdermal system (1 source) Anticholinergic Start: 03-13-20 End: 03-14-20 scopolamine (TRANSDERM-SCOP) 1 mg over 3 days patch 1 patch sertraline 50 mg oral tablet (6 sources) Serotonin Reuptake Inhibitor End: 03-05-20 take 1 tablet by mouth once daily, then take 25 tablets by mouth sertraline (ZOLOFT) 50 MG tablet Take 50 mg by mouth daily. start in 1 week after 25mg dose is complete. 03/05/2018 Discontinued End: 03-05-2018 take 25 mg by mouth once daily sertraline (ZOLOFT) 50 MG tablet Take 25 mg by mouth daily. x 7 days 03/05/2018 Discontinued 1000 ml sodium chloride 9 mg/ml injection (9 sources) Start: 12-17-2024 End: 12-17-2024 1,000 mL, intravenous, at 99 9 mL/hr, Administer over 1 Hours, Once, On Sun12/17/24 at 1435, For 1 dose Start: 03-13-2018 End: 03-14-2018 Start: 03-13-2018 End: 03-14-2018 sodium chloride (PF) (NS) fl ush 5 mL End: 12-17-2024 sodium chloride (Blue Grass) 0.65 % nasal spray Administer 1 spray into each nostril if needed for congestion. 12/17/2024 Discontinued (Entered in Error) sodium phosphate, dibasic 59.3 mg/ml / sodium phosphate, monobasic 161 mg/ml enema (13 sources) Start: 06-28-2015 End: 10-27-2020 sodium phosphates (FLEET ENEMA) 19-7 gram/118 mL Enem Insert 1 each into the rectum As needed (constipation). 0 06/28/2015 10/27/2020 Discontinued (Discontinued by another clinician) tadalafil 20 mg oral tablet (20 sources) Phosphodiesterase 5 Inhibitor Start: 09-03-2019 End: 12-29-2022 tadalafiL 20 MG tablet Take by mouth . 0 09/03/2019 12/29/2022 Discontinued (Patient's Request) tamsulosin hydrochloride 0.4 mg oral capsule (20 sources) alpha-Adrenergic Ivc Start: 07-03-2024 End: 10-08-2024 Start: 12-14-2021 take 2 capsules by m outh once daily tamsulosin 0.4 mg oral capsule ; 2 cap(s) orally once a day Quantity: 0 Refills: 0 Ordered: 16-Mar-2023 Jeannie Biggs Start: 14-Dec-2021 Generic Substitution Allowed Start: 11-27-2015 End: 07-03-2025 take 1 capsule by mouth once daily tamsulosin (Flomax) 0.4 mg 24 hr capsule Indications: Benign prostatic hyperplasia without lower urinary tract symptoms Take 1 capsule (0.4 mg) by mouth once daily. 90 capsule 3 10/31/2023 07/03/2024 Discontinued (Reorder) Tc-99m tetrofosmin (Myoview) injection 11.9 millicurie (1 source) Start: 06-09-2024 End: 06-09-2024 11.9 millicurie, intravenous, Once in imaging, Starting on Sun06/09/24 at 0841, For 1 dose, Administer 45 to 90 minutes prior to imaging unless otherwise indicated. Tc-99m tetrofosmin (Myoview) injection 33.2 millicurie (1 source) Start: 06-09-2024 End: 06-09-2024 33.2 millicurie, intravenous, Once in imaging, Starting on 12/9/24 at 0955, For 1 dose, Administer 45 to 90 minutes prior to imaging unless otherwise indicated. traMADol hydrochloride 50 mg oral tablet (8 sources) Opioid Agonist Start: 08-01-2018 End: 10-27-2020 traMADol (ULTRAM) 50 mg tablet 1 ml triamcinolone acetonide 40 mg/ml injection (19 sources) Corticosteroid Start: 04-30-2023 End: 05-01-2023 triamcinolone acetonide (KENALOG-40) injection 40 mg Start: 04-19-2023 End: 04-30-2023 triamcinolone (Kenalog) 0.1 % cream Indications: Eczema, unspecified type Apply topically 2 times a day for 10 days. Apply to affected area 1-2 times daily as needed. Avoid face and groin. 30 g 0 04/19/2023 04/30/2023 Discontinued (Therapy completed) Start: 12-31-2022 End: 12-31-2022 triamcinolone acetonide (JULES ALOG-40) injection 10 mg Start: 10-07-2022 End: 10-07-2022 triamcinolone acetonide (JULES ALOG-40) injection 40 mg Start: 09-19-2022 End: 09-19-2022 triamcinolone acetonide (JULES ALOG-40) injection 40 mg Start: 08-04-2022 End: 08-04-2022 triamcinolone acetonide (JULES ALOG-40) injection 40 mg Start: 01-19-2021 End: 01-19-2021 triamcinolone acetonide (JULES ALOG-40) injection 40 mg Start: 10-27-2020 End: 10-27-2020 triamcinolone acetonide (JULES ALOG-40) injection 40 mg Start: 03-12-2020 End: 03-12-2020 triamcinolone acetonide (JULES ALOG-40) injection 20 mg Start: 03-12-2020 End: 03-12-2020 triamcinolone acetonide (JULES ALOG-40) injection 20 mg Start: 08-18-2019 End: 08-18-2019 triamcinolone acetonide (JULES ALOG-40) injection 40 mg Start: 07-21-2019 End: 07-21-2019 triamcinolone acetonide (JULES ALOG-40) injection 20 mg Start: 07-21-2019 End: 07-21-2019 triamcinolone acetonide (JULES ALOG-40) injection 20 mg Start: 09-09-2018 End: 09-09-2018 triamcinolone acetonide (JULES ALOG-40) injection 20 mg Start: 09-09-2018 End: 09-09-2018 triamcinolone acetonide (JULES ALOG-40) injection 20 mg Start: 03-06-2017 End: 03-06-2017 triamcinolone acetonide (JULES ALOG-40) injection 20 mg Start: 03-06-2017 End: 03-06-2017 triamcinolone acetonide (JULES ALOG-40) injection 20 mg 20 mg, Intra-articular, Once, 03/06/17 at 1245, For 1 dose, [facility] [id number] Given 03/06/2017 11:58 EDT 20 mg vit A/C/E ac/ZnOx/cupric oxi de (EYE VITAMIN AND MINERALS ORAL) (3 sources) End: 08-01-2022 vit A/C/E ac/ZnOx/cupric oxi de (EYE VITAMIN AND MINERALS ORAL) Take by mouth . 0 08/01/2022 Discontinued (Discontinued by another clinician) vit A/C/E ac/ZnO x/cupric oxide (EYE VITAMIN AND MINERALS ORAL) Take by mouth . 0 Active vitamin e 400 unt oral capsule (3 sources) End: 03-05-2018 take 1 capsule by mouth once daily vitamin E 400 UNIT capsule Take 400 Units by mouth daily 03/05/2018 Discontinued (3 sources) Start: 10-02-2024 End: 10-02-2024 Start: 09-27-2024 End: 09-27-2024 Start: 09-26-2024 End: 09-27-2024 Problems Active Problems Problem Classification Problem Date Documented Date Episodic/Chronic Acquired foot deformities (20 sources) Acquired deformity of toe; Translations: [Other hammer toe(s) (acquired), unspecified foot] Chronic Acquired foot deformities (2 sources) Metatarsophalangeal joint stiff; Translations: [Other deformities of toe(s) (acquired), left foot] Episodic Allergic reactions (1 source) Flexural atopic dermatitis; Translations: [Other atopic dermatitis and related conditions] 05-26-2022 Chronic Cardiac dysrhythmias (20 sources) Atrial fibrillation; Translations: [Atrial fibrillation] Onset: 2 Resolved: 5 05-13-2021 Chronic Comment on above: AFIB Cardiac dysrhythmias (1 source) Cardiac dysrhythmias 10-06-2021 Comment on above: A-FIB ABLATION - CPT 90671, 43865 Cataract (20 sources) Cataract; Translations: [Unspecified cataract] 12-26-2020 Chronic Conduction disorders (20 sources) Chronotropic incompetence; Translations: [Other specified conduction disorders] Onset: 2 10-06-2022 Chronic Congestive heart failure; nonhypertensive (20 sources) Chronic diastolic heart failure; Translations: [Chronic diastolic heart failure] Onset: 2 10-06-2022 Chronic Congestive heart failure; nonhypertensive (6 sources) Congestive heart failure; nonhypertensive 08-10-2021 Comment on above: 6 MTH CK CHF HEART FAILURE CLINIC HFPEF HEART FAILURE CLINIC HFPEF CAD DM Coronary atherosclerosis and other heart disease (20 sources) Coronary atherosclerosis; Translations: [Coronary atherosclerosis of unspecified type of vessel, [place] or graft] Onset: 2 10-06-2022 Chronic Diabetes mellitus with 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s (20 sources) Polyneuropathy due to type 2 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; Translations: [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 with diabetic polyneuropathy] Onset: 2 Resolved: 5 Chronic Diabetes mellitus without 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 (20 sources) 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; Translations: [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s] Onset: 2 12-26-2020 Chronic Disorders of lipid metabolism (20 sources) Hyperlipidemia; Translations: [Hypercholesterolemia] Onset: 2 Resolved: 5 Chronic Esophageal disorders (20 sources) Gastroesophageal reflux disease; Translations: [Esophageal reflux] Onset: 2 10-06-2022 Chronic Esophageal disorders (3 sources) Esophageal disorders 01-05-2021 Comment on above: 6 MO GERD HL HTN ALISHA ON CPAP DMII CK REV LASB Essential hypertension (20 sources) Benign essential hypertension; Translations: [Hypertensive disorder] Onset: 3 Resolved: 5 12-26-2020 Chronic Fracture of lower limb (20 sources) Fracture of phalanx of foot; Translations: [Unspecified fracture of unspecified toe(s), initial encounter for closed fracture] 12-26-2020 Episodic Gout and other crystal arthropathies (20 sources) Other chondrocalcinosis, right knee; Translations: [Calcium pyrophosphate deposition disease] Onset: 3 03-05-2023 Chronic Headache; including migraine (2 sources) Acute headache; Translations: [Acute intractable headache, unspecified headache type] 09-18-2024 Episodic Headache; including migraine (2 sources) Headache; including migraine; Translations: [Headache, unspecified] Onset: 5 Hyperplasia of prostate (20 sources) Benign prostatic hyperplasia; Translations: [Hypertrophy (benign) of prostate without urinary obstruction and other lower urinary tract symptom (LUTS)] Onset: 2 10-06-2022 Chronic Hypertension with 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s and secondary hypertension (1 source) Hypertensive heart disease with heart failure; Translations: [Hypertensive heart disease with heart failure] Onset: 2 Chronic Immunizations and screening for infectious disease (20 sources) Patient encounter status; Translations: [Other specified vaccination] Onset: 3 05-13-2024 Episodic Malaise and fatigue (20 sources) Fatigue; Translations: [Chronic fatigue, unspecified] 06-13-2023 Chronic Mood disorders (20 sources) Depressive disorder; Translations: [Depressive disorder, not elsewhere classified] Onset: 3 Resolved: 4 10-06-2022 Chronic Open wounds of extremities (3 sources) Tear of skin; Translations: [Laceration without foreign body of right elbow, subsequent encounter] Onset: 4 09-11-2023 Episodic Osteoarthritis (20 sources) Degenerative joint disease involving multiple joints; Translations: [Osteoarthritis of right knee joint] Onset: 2 Chronic Other aftercare (2 sources) 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; Translations: [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] Onset: 2 Episodic Other aftercare (1 source) Drug therapy finding; Translations: [Other residential (current) drug therapy] 04-18-2024 Episodic Other circulatory disease (20 sources) Peripheral arterial occlusive disease; Translations: [Arterial embolism and thrombosis of lower extremity] Onset: 3 10-06-2022 Chronic Other circulatory disease (1 source) Disorder of arteries and arterioles, unspecified; Translations: [Disorder of arteries and arterioles, unspecified] Onset: 2 Chronic Other connective tissue disease (4 sources) History of total knee arthroplasty; Translations: [Presence of left artificial knee joint] Chronic Other connective tissue disease (2 sources) History of left total knee replacement; Translations: [Presence of left artificial knee joint] 11-25-2023 Chronic Other connective tissue disease (2 sources) Lateral epicondylitis, right elbow; Translations: [Lateral epicondylitis of right elbow] Episodic Other connective tissue disease (1 source) Disorder of rotator cuff; Translations: [Rotator cuff disorder, right] Episodic Other connective tissue disease (20 sources) Plantar fasciitis; Translations: [Plantar fascial fibromatosis] Episodic Other connective tissue disease (20 sources) Cramp in foot; Translations: [Cramp and spasm] Episodic Other connective tissue disease (20 sources) Pain in both feet; Translations: [Pain in right foot] Episodic Other connective tissue disease (20 sources) Swelling of bilateral feet; Translations: [Other specified soft tissue disorders] Episodic Other connective tissue disease (5 sources) Hand pain; Translations: [Pain in limb] Episodic Other connective tissue disease (2 sources) Disorder of soft tissue; Translations: [Other specified soft tissue disorders] Onset: 5 10-02-2024 Episodic Other connective tissue disease (1 source) Other specified soft tissue disorders; Translations: [Other specified soft tissue disorders] Onset: 5 Episodic Other diseases of veins and lymphatics (1 source) Venous insufficiency (chronic) (peripheral); Translations: [Venous insufficiency (chronic) (peripheral)] Onset: 2 Episodic Other endocrine disorders (8 sources) Male hypogonadism; Translations: [Testicular hypofunction] Onset: 5 03-16-2025 Chronic Other endocrine disorders (2 sources) Testicular hypofunction; Translations: [Testicular hypofunction] Onset: 5 Chronic Other eye disorders (20 sources) Disorder of eye; Translations: [Unspecified disorder of eye and adnexa] Episodic Other gastrointestinal disorders (3 sources) Chronic idiopathic constipation; Translations: [Chronic idiopathic constipation] Onset: 5 11-06-2024 Chronic Other gastrointestinal disorders (1 source) Chronic idiopathic constipation; Translations: [Chronic idiopathic constipation] Onset: 5 Chronic Other gastrointestinal disorders (4 sources) Constipation; Translations: [Constipation, unspecified] 02-10-2023 Episodic Comment on above: CONSTIPATION Other gastrointestinal disorders (2 sources) Constipation, unspecified; Translations: [Constipation, unspecified] Onset: 3 Episodic Other gastrointestinal disorders (3 sources) Dysphagia; Translations: [Dysphagia, unspecified] Episodic Other gastrointestinal disorders (2 sources) Dysphagia, unspecified; Translations: [Dysphagia, unspecified] Onset: 5 Episodic Other infections; including parasitic (20 sources) H/O: infectious disease; Translations: [Personal history of other infectious and parasitic diseases] Episodic Other lower respiratory disease (10 sources) Dyspnea on exertion; Translations: [Shortness of breath] 05-27-2024 Episodic Other male genital disorders (20 sources) Male erectile dysfunction, unspecified; Translations: [Erectile dysfunction] Onset: 2 10-06-2022 Chronic Other male genital disorders (1 source) Phimosis; Translations: [Phimosis] Onset: 2 Episodic Other nervous system disorders (20 sources) Carpal tunnel syndrome; Translations: [Carpal tunnel syndrome] Chronic Other nervous system disorders (20 sources) Neuropathy; Translations: [Polyneuropathy, unspecified] Chronic Other nervous system disorders (1 source) Carpal tunnel syndrome, right upper limb; Translations: [Carpal tunnel syndrome, right upper limb] Onset: 2 Chronic Other nervous system disorders (9 sources) Other chronic pain; Translations: [Other chronic pain] Onset: 2 Chronic Other nervous system disorders (20 sources) Carpal tunnel syndrome of right wrist; Translations: [Carpal tunnel syndrome, right upper limb] Onset: 3 10-06-2022 Chronic Other nervous system disorders (4 sources) Neurogenic claudication 05-09-2024 Episodic Other non-traumatic joint disorders (1 source) Pain in elbow; Translations: [Right elbow pain] Episodic Other non-traumatic joint disorders (2 sources) Disorder of shoulder; Translations: [Bursitis/tendonitis, shoulder] Episodic Other non-traumatic joint disorders (1 source) Pain in wrist; Translations: [Acute pain of right wrist] Episodic Other non-traumatic joint disorders (1 source) Pain of right wrist; Translations: [Pain in right wrist] 10-07-2022 Episodic Other non-traumatic joint disorders (2 sources) Chronic pain of right upper limb; Translations: [Pain in right shoulder] 08-07-2023 Episodic Other non-traumatic joint disorders (3 sources) Hip pain; Translations: [Pain in right hip] 08-07-2023 Episodic Other non-traumatic joint disorders (2 sources) Arthritis of right knee; Translations: [Arthritis of right knee] Other nutritional; endocrine; and metabolic disorders (20 sources) Obesity; Translations: [Obesity, unspecified] 12-26-2020 Chronic Other nutritional; endocrine; and metabolic disorders (1 source) Obesity, unspecified; Translations: [Obesity, unspecified] Onset: 2 Chronic Other screening for suspected conditions (not mental disorders or infectious disease) (2 sources) Abnormal findings on diagnostic imaging of other specified body structures; Translations: [Abnormal findings on diagnostic imaging of other specified body structures] Onset: 5 Chronic Other skin disorders (20 sources) Personal history of diseases of the skin and subcutaneous tissue; Translations: [History of actinic keratosis] Episodic Other skin disorders (20 sources) H/O: skin disorder; Translations: [Personal history of other infectious and parasitic diseases] Episodic Other skin disorders (20 sources) Dystrophia unguium; Translations: [Nail dystrophy] Episodic Other skin disorders (1 source) Nail discoloration; Translations: [Other nail disorders] Episodic Other skin disorders (1 source) Disorder of nail; Translations: [Nail disorder, unspecified] Episodic Other upper respiratory disease (20 sources) Chronic rhinitis; Translations: [Chronic rhinitis] Onset: 3 Resolved: 3 12-07-2022 Chronic Other upper respiratory disease (1 source) Chronic rhinitis; Translations: [Chronic rhinitis] Onset: 5 Chronic Other upper respiratory disease (20 sources) Pain in face; Translations: [Other specified disorders of nose and nasal sinuses] Episodic Other upper respiratory disease (2 sources) Hoarse; Translations: [Dysphonia] 03-12-2025 Episodic Other upper respiratory disease (1 source) Dysphonia; Translations: [Dysphonia] Onset: 5 Episodic Marie-; endo-; and myocarditis; cardiomyopathy (except that caused by tuberculosis or sexually transmitted disease) (10 sources) Cardiomyopathy; Translations: [Cardiomyopathy, unspecified] Onset: 4 10-20-2024 Chronic Peripheral and visceral atherosclerosis (20 sources) Peripheral vascular disease, unspecified; Translations: [Peripheral vascular disease, unspecified] Onset: 5 Chronic Pneumonia (except that caused by tuberculosis or sexually transmitted disease) (1 source) Pneumonia (except that caused by tuberculosis or sexually transmitted disease) 03-16-2023 Residual codes; unclassified (20 sources) Obstructive sleep apnea syndrome; Translations: [Obstructive sleep apnea (adult)(pediatric)] Onset: 3 10-06-2022 Chronic Residual codes; unclassified (4 sources) Obstructive sleep apnea (adult) (pediatric); Translations: [Obstructive sleep apnea (adult) (pediatric)] Onset: 2 Chronic Residual codes; unclassified (1 source) Localized edema; Translations: [Localized edema] Episodic Residual codes; unclassified (2 sources) Edema, generalized; Translations: [Generalized edema] Onset: 5 10-01-2024 Episodic Residual codes; unclassified (1 source) Generalized edema; Translations: [Generalized edema] Onset: 5 Episodic Skin and subcutaneous tissue infections (1 source) Cellulitis of lower limb; Translations: [Cellulitis and abscess of leg, except foot] 11-24-2021 Episodic Spondylosis; intervertebral disc disorders; other back problems (20 sources) Degeneration of lumbar intervertebral disc; Translations: [Other intervertebral disc degeneration, lumbar region] Onset: 8 03-13-2018 Chronic Thyroid disorders (20 sources) Hyperthyroidism; Translations: [Thyrotoxicosis, unspecified without thyrotoxic crisis or storm] Onset: 5 07-03-2024 Chronic Unclassified (2 sources) Lumbar stenosis with neurogenic claudication; Translations: [Spinal stenosis, lumbar region with neurogenic claudication] Onset: 8 03-13-2018 Unclassified (20 sources) Patient encounter status; Translations: [Pre-operative cardiovascular examination] Onset: 5 05-31-2015 Unclassified (2 sources) Spinal stenosis, lumbar region with neurogenic claudication; Translations: [Spinal stenosis, lumbar region with neurogenic claudication] Onset: 8 Unclassified (1 source) Contusion of left knee; Translations: [Contusion of left knee, initial encounter] Unclassified (3 sources) 1 YEAR FU 08-16-2020 Comment on above: 1 YEAR FU Unclassified (3 sources) FUV 2 MONTHS 04-04-2021 Comment on above: FUV 2 MONTHS Unclassified (1 source) Atrial fibrillation, new onset 05-13-2021 Unclassified (2 sources) 1 MON FU TESTING-VINAY PT 05-30-2021 Comment on above: 1 MON FU TESTING-GUH A PT Unclassified (2 sources) ATYPICAL CHEST PAIN ATRIAL FIB 7 DAY BARDY 05-30-2021 Comment on above: ATYPICAL CHEST PAIN ATRIAL FIB 7 DAY BARDY Unclassified (2 sources) VOMITTING, COUGH CONGESTION 06-03-2021 Comment on above: VOMITTING, COUGH CON GESTION Unclassified (1 source) RSV (respiratory syncytial virus infection) 06-03-2021 Unclassified (2 sources) RIGHT KNEE SWELLING 11-24-2021 Comment on above: RIGHT KNEE SWELLING Unclassified (1 source) 6 MO FU DM ATRIAL FIBRILLATION REV LABS 07-08-2021 Comment on above: 6 MO FU DM ATRIAL FI BRILLATION REV LABS Unclassified (1 source) 8 WEEK F/U 09-06-2021 Comment on above: 8 WEEK F/U Unclassified (1 source) Cellulitis of right lower extremity 11-24-2021 Unclassified (1 source) Flexural atopic dermatitis 11-24-2021 Unclassified (2 sources) DIZZY, POSSIBLE LOW BP 08-25-2022 Comment on above: DIZZY, POSSIBLE LOW BP Unclassified (2 sources) FUV 3 MONTHS B SHOULDER INJ 08-07-2022 Comment on above: FUV 3 MONTHS B SHOUL SHANTE INJ Unclassified (1 source) 3 MONTH FOLLOW UP 07-24-2022 Comment on above: 3 MONTH FOLLOW UP Unclassified (1 source) 3 MO FU REV LAVS 07-10-2022 Comment on above: 3 MO FU REV LAVS Unclassified (1 source) 6 MTH CK 02-23-2022 Comment on above: 6 MTH CK Unclassified (8 sources) Other persistent atrial fibrillation; Translations: [Other persistent atrial fibrillation] Onset: 2 Unclassified (2 sources) LACERATION TO ARM 10-14-2022 Comment on above: LACERATION TO ARM Unclassified (3 sources) PACEMAKER CHECK 10-03-2022 Comment on above: PACEMAKER CHECK Unclassified (2 sources) 6 MO F/U 08-31-2022 Comment on above: 6 MO F/U Unclassified (1 source) Laceration of left wrist 10-14-2022 Unclassified (2 sources) FUV/3 MO 02-05-2023 Comment on above: FUV/3 MO Unclassified (1 source) 2-3 WEEK FOLLOW UP 01-26-2023 Comment on above: 2-3 WEEK FOLLOW UP Unclassified (1 source) FOLLOW UP - KNEE/HAND PAIN 02-12-2023 Comment on above: FOLLOW UP - KNEE/COONEY D PAIN Unclassified (1 source) Drug therapy finding 04-28-2024 Unclassified (6 sources) Permanent atrial fibrillation; Translations: [Permanent atrial fibrillation (Multi)] Onset: 4 Unclassified (1 source) Hoarseness Unclassified (2 sources) R49.0 - Dysphonia,R13.10 - Dysphagia, unspecified Unclassified (2 sources) 3 month f/u Onset: 5 Viral infection (2 sources) Respiratory syncytial virus infection; Translations: [Respiratory syncytial virus (RSV)] 06-03-2021 Episodic Past or Other Problems Problem Classification Problem Date Documented Date Episodic/Chronic Abdominal hernia (20 sources) Left inguinal hernia ; Translations: [Inguinal hernia, without mention of obstruction or gangrene, unilateral or unspecified (not specified as recurrent)] Onset: 06-14-2022 Resolved: 04-30-2023 10-06-2022 Episodic Abdominal pain (20 sources) Left lower quadrant pain; Translations: [Abdominal pain, left lower quadrant] Onset: 10-06-2022 Resolved: 04-30-2023 10-06-2022 Episodic Allergic reactions (20 sources) Allergic condition; Translations: [Allergy, unspecified, initial encounter] Onset: 04-19-2023 12-26-2020 Episodic Calculus of urinary tract (20 sources) Kidney stone; Translations: [History of calculus of kidney] Onset: 06-14-2022 10-06-2022 Episodic Cardiac dysrhythmias (20 sources) Bradycardia; Translations: [Other specified cardiac dysrhythmias] Onset: 04-17-2022 10-06-2022 Episodic Chronic obstructive pulmonary disease and bronchiectasis (7 sources) Bronchitis; Translations: [Bronchitis, not specified as acute or chronic] Onset: 06-12-2024 06-12-2024 Episodic Coagulation and hemorrhagic disorders (20 sources) Thrombophilia; Translations: [Other thrombophilia] Onset: 01-24-2023 Resolved: 04-30-2023 01-24-2023 Chronic Complication of device; implant or graft (20 sources) Pacing-induced cardiomyopathy; Translations: [Other specified 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 of cardiac prosthetic devices, implants and grafts, initial encounter] Onset: 06-26-2024 06-27-2024 Episodic Complications of surgical procedures or medical care (20 sources) Malfunction of gastrostomy tube; Translations: [Gastrostomy malfunction] Onset: 10-27-2024 Resolved: 12-26-2024 11-11-2024 Episodic Conditions associated with dizziness or vertigo (20 sources) Dizziness; Translations: [Dizziness and giddiness] Onset: 08-26-2022 Resolved: 10-06-2022 12-07-2022 Episodic Comment on above: DIZZINESS E Codes: Cut/pierceb (1 source) Contact with other sharp object(s), not elsewhere classified, initial encounter; Translations: [Contact with other sharp object(s), NEC, initial encounter] Onset: 10-14-2022 Episodic Esophageal disorders (20 sources) Perforation of esophagus; Translations: [Perforation of esophagus] Onset: 08-14-2024 09-27-2024 Episodic Fluid and electrolyte disorders (3 sources) Dehydration; Translations: [Dehydration] Onset: 08-26-2022 08-26-2022 Episodic Genitourinary symptoms and ill-defined conditions (20 sources) Nocturia; Translations: [Nocturia] Onset: 10-06-2022 Resolved: 04-30-2023 10-06-2022 Episodic Influenza (20 sources) Influenza due to Influenza A virus; Translations: [Influenza with other respiratory manifestations] Onset: 10-06-2022 Resolved: 10-06-2022 10-06-2022 Episodic Lymphadenitis (6 sources) Lymphadenopathy; Translations: [Enlarged lymph nodes, unspecified] Onset: 09-10-2024 09-10-2024 Episodic Malaise and fatigue (20 sources) Tired; Translations: [Other fatigue] Onset: 10-06-2022 Episodic Medical examination/evaluatio n (2 sources) Preoperative state; Translations: [Pre-operative cardiovascular examination] Onset: 05-31-2015 05-31-2015 Episodic Mood disorders (20 sources) Mood disorders; Translations: [Depression, unspecified] Onset: 03-13-2018 Resolved: 09-01-2021 08-12-2022 Mycoses (20 sources) Onychomycosis; Translations: [Tinea unguium] Onset: 11-25-2024 Episodic Nonspecific chest pain (20 sources) Chest pain; Translations: [Chest pain, unspecified] Onset: 08-26-2022 Resolved: 04-30-2023 10-06-2022 Episodic Open wounds of extremities (3 sources) Laceration of left wrist; Translations: [Open wound of wrist, without mention of 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] Onset: 10-14-2022 10-14-2022 Episodic Other aftercare (4 sources) senior care (current) use of anticoagulants; Translations: [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] Onset: 06-14-2022 Episodic Other aftercare (3 sources) 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; Translations: [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] Onset: 02-10-2023 Episodic Other aftercare (2 sources) Encounter for surgical aftercare following surgery on the circulatory system; Translations: [Encounter for surgical aftercare following surgery on the circulatory system] Onset: 10-30-2024 Episodic Other circulatory disease (10 sources) Orthostatic hypotension; Translations: [Orthostatic hypotension] Onset: 12-17-2024 12-17-2024 Episodic Other circulatory disease (2 sources) Orthostatic hypotension; Translations: [Orthostatic hypotension] Onset: 12-17-2024 Episodic Other connective tissue disease (20 sources) Synovial cyst of right popliteal space; Translations: [Synovial cyst of popliteal space] Onset: 10-06-2022 10-06-2022 Episodic Other connective tissue disease (20 sources) Bursitis of olecranon of left elbow; Translations: [Olecranon bursitis, left elbow] Onset: 12-21-2022 Episodic Other connective tissue disease (20 sources) Synovial cyst of popliteal space [Belcher], right knee; Translations: [Synovial cyst of popliteal space] Onset: 06-14-2022 10-06-2022 Episodic Other connective tissue disease (1 source) Arthrodesis status; Translations: [Arthrodesis status] Onset: 12-14-2021 Episodic Other connective tissue disease (3 sources) Olecranon bursitis, left elbow; Translations: [Olecranon bursitis, left elbow] Onset: 11-03-2022 Episodic Other connective tissue disease (2 sources) Pain in right foot; Translations: [Pain in right foot] Onset: 05-26-2024 Episodic Other connective tissue disease (2 sources) Foot pain Onset: 05-26-2024 Episodic Other diseases of veins and lymphatics (20 sources) Venous insufficiency of leg; Translations: [Venous insufficiency (chronic) (peripheral)] Onset: 10-06-2022 Episodic Other diseases of veins and lymphatics (20 sources) Subclavian vein stenosis; Translations: [Compression of vein] Onset: 08-13-2024 08-14-2024 Episodic Other diseases of veins and lymphatics (4 sources) Compression of vein; Translations: [Compression of vein] Onset: 08-14-2024 Episodic Other ear and sense organ disorders (20 sources) Excessive cerumen in ear canal ; Translations: [Impacted cerumen, right ear] Onset: 04-12-2023 04-12-2023 Episodic Other lower respiratory disease (20 sources) Cough; Translations: [Cough] Onset: 10-06-2022 Resolved: 10-06-2022 06-01-2021 Episodic Comment on above: COUGH Other lower respiratory disease (20 sources) Dyspnea; Translations: [Shortness of breath] Onset: 05-27-2024 Resolved: 05-01-2025 05-27-2024 Episodic Other lower respiratory disease (3 sources) Shortness of breath; Translations: [Shortness of breath] Onset: 05-27-2024 Episodic Other lower respiratory disease (2 sources) Other forms of dyspnea; Translations: [Other forms of dyspnea] Onset: 06-09-2024 Episodic Other male genital disorders (20 sources) Phimosis; Translations: [Redundant prepuce and phimosis] Onset: 10-06-2022 10-06-2022 Episodic Other non-traumatic joint disorders (20 sources) Pain in right knee; Translations: [Knee pain, right] Onset: 01-26-2023 Episodic Other nutritional; endocrine; and metabolic disorders (20 sources) Body mass index 30+ - obesity; Translations: [Obesity, unspecified] Onset: 10-06-2022 Resolved: 10-28-2024 10-06-2022 Chronic Other screening for suspected conditions (not mental disorders or infectious disease) (20 sources) Decreased testosterone level ; Translations: [Other specified abnormal findings of blood chemistry] Onset: 10-09-2022 10-09-2022 Episodic Other skin disorders (20 sources) Rash of genitalia; Translations: [Rash and other nonspecific skin eruption] Onset: 10-06-2022 Resolved: 10-06-2022 10-06-2022 Episodic Other upper respiratory disease (20 sources) Allergy to pollen; Translations: [Allergic rhinitis due to pollen] Onset: 01-24-2023 Resolved: 04-30-2023 01-24-2023 Chronic Other upper respiratory infections (20 sources) Sore throat symptom; Translations: [Acute pharyngitis] Onset: 06-14-2022 Resolved: 04-30-2023 10-06-2022 Episodic Pleurisy; pneumothorax; pulmonary collapse (19 sources) Mediastinal emphysema; Translations: [Interstitial emphysema] Onset: 10-27-2024 11-11-2024 Episodic Pneumonia (except that caused by tuberculosis or sexually transmitted disease) (20 sources) Pneumonia due to respiratory syncytial virus; Translations: [Pneumonia due to respiratory syncytial virus] Onset: 06-14-2022 Resolved: 10-09-2022 06-03-2021 Episodic Spondylosis; intervertebral disc disorders; other back problems (20 sources) Spinal stenosis of lumbar region; Translations: [Spinal stenosis, lumbar region with neurogenic claudication] Onset: 03-13-2018 03-13-2018 Episodic Unclassified (20 sources) Onset: 01-24-2023 Resolved: 04-16-2025 01-24-2023 NEGATED: Highlighted row has not occurred!Residual codes; unclassified (7 sources) Disease Episodic Results Test Name Value Interpretation Reference Range Facility ALBUMIN, RANDOM URINE W/CREA Aaliyah 04-29-2025 ALBUMIN, URINE 8.2 mg/dL Normal See Note: [facility] Comment on above: Result Comment: Refjohnathon benjamin Range: Reference Range Not established Performed By: #### 6 517, 30287, 7600, 6399, 62254 #### [facility] [address], [address] [place] [address] Rivet Spinner: Camilo Sylvester MD ALBUMIN/CREATININE RATIO, RANDOM URINE 114 mg/g creat High <30 [facility] Comment on above: Result Comment: The ADA defines abnormalities in albumin excretion as follows: Albuminuria Category Result (mg/g creatinine) Normal to Mildly increased <30 Moderately increased 30-299 Severely increased > OR = 300 The ADA recommends that at least two of three specimens collected within a 3-6 month period be abnormal before considering a patient to be within a diagnostic category. Performed By: #### 6 517, 64668, 7600, 6399, 90759 #### [facility] [address], [address] [place] [address] Rivet Spinner: Camilo Sylvester MD Creatinine (U) [Mass/Vol] 72 mg/dL Normal 20-320 [facility] Comment on above: Performed By: #### 6 517, 91771, 7600, 6399, 97234 #### [facility] [place] [address] Rivet Spinner: Camilo Sylvester MD BASIC METABOLIC PANEL WITH A RICK CALLon 04-29-2025 BUN/CREATININE RATIO SEE NOTE: Normal 6-22 [facility] Comment on above: Order Comment: FASTI NG:YES AN UPDATE OR CORRECTION HAS BEEN MADE TO NAME FASTING: YES Result Comment: Not Reported: BUN and Creatinine are within reference range. Performed By: #### 9 2498 #### [facility] [address], [address] [place] [address] Rivet Spinner: Camilo Sylvester MD Calcium [Mass/Vol] 8.9 mg/dL Normal 8.6-10.3 [facility] Comment on above: Order Comment: FASTI NG:YES AN UPDATE OR CORRECTION HAS BEEN MADE TO NAME FASTING: YES Performed By: #### 9 9588 #### [facility] [address], [address] [place] [address] [employer]et Spinner: Camilo Sylvester MD Chloride [Moles/Vol] 105 mmol/L Normal 98-110 [facility] t [facility] Comment on above: Order Comment: FASTI NG:YES AN UPDATE OR CORRECTION HAS BEEN MADE TO NAME FASTING: YES Performed By: #### 9 8238 #### [facility] [address], [address] [place] [address] [employer] Spinner: Camilo Sylvester MD CO2 [Moles/Vol] 23 mmol/L Normal 20-32 [facility] Comment on above: Order Comment: FASTI NG:YES AN UPDATE OR CORRECTION HAS BEEN MADE TO NAME FASTING: YES Performed By: #### 9 2758 #### [facility] [address], [address] [place] [address] [employer] Spinner: Camilo Sylvester MD Creatinine [Mass/Vol] 0.88 mg/dL Normal 0.70-1.22 [facility] Comment on above: Order Comment: FASTI NG:YES AN UPDATE OR CORRECTION HAS BEEN MADE TO NAME FASTING: YES Performed By: #### 9 3958 #### [facility] [address], [address] [place] [address] [employer] Spinner: Camilo Sylvester MD ELECTROLYTE BALANCE 15 mmol/L (calc) Normal 7-17 [facility] Comment on above: Order Comment: FASTI NG:YES AN UPDATE OR CORRECTION HAS BEEN MADE TO NAME FASTING: YES Performed By: #### 9 8318 #### [facility] [address], [address] [place] [address] [employer]et Spinner: Camilo Sylvester MD GFR/1.73 sq M.predicted among non-blacks MDRD (S/P/Bld) [Vol rate/Area] 86 mL/min/{1.73_m2} Normal > OR = 60 [facility] Comment on above: Order Comment: FASTI NG:YES AN UPDATE OR CORRECTION HAS BEEN MADE TO NAME FASTING: YES Performed By: #### 9 2498 #### [facility] [address], [address] [place] [address] [employer] Spinner: Camilo Sylvester MD Glucose [Mass/Vol] 124 mg/dL High 65-99 [facility] Comment on above: Order Comment: FASTI NG:YES AN UPDATE OR CORRECTION HAS BEEN MADE TO NAME FASTING: YES Result Comment: Fasting reference interval For someone without known diabetes, a glucose value between 100 and 125 mg/dL is consistent with prediabetes and should be confirmed with a follow-up test. Performed By: #### 9 2498 #### [facility] [address], [address] [place] [address] Rivet Spinner: Camilo Sylvester MD Potassium [Moles/Vol] 4.4 mmol/L Normal 3.5-5.3 [facility] Comment on above: Order Comment: FASTI NG:YES AN UPDATE OR CORRECTION HAS BEEN MADE TO NAME FASTING: YES Performed By: #### 9 2498 #### [facility] [address], [address] [place] [address] Riv[employer] Spinner: Camilo Sylvester MD Sodium [Moles/Vol] 143 mmol/L Normal 135-146 [facility] Comment on above: Order Comment: FASTI NG:YES AN UPDATE OR CORRECTION HAS BEEN MADE TO NAME FASTING: YES Performed By: #### 9 2498 #### [facility] [place] [address] [employer] Spinner: Camilo Sylvester MD Urea nitrogen [Mass/Vol] 14 mg/dL Normal 7-25 [facility] Comment on above: Order Comment: FASTI NG:YES AN UPDATE OR CORRECTION HAS BEEN MADE TO NAME FASTING: YES Performed By: #### 9 2678 #### [facility] [place] [address] [employer] Spinner: Camilo Sylvester MD CBC (INCLUDES DIFF/PLT)on Basophils (Bld) [#/Vol] 0.039 10*3/uL Normal 0-200 [facility] Comment on above: Performed By: #### 6 517, 25506, 1590, 6399, 62241 #### [facility] of [address], [address] [place] [address] Riv[employer] Spinner: Camilo Sylvester MD Basophils/100 WBC (Bld) 0.5 % Normal [facility] Comment on above: Performed By: #### 6 517, 52431, 7600, 6399, 03137 #### [facility] of [address], [address] [place] [address] Rivet Spinner: Camilo Sylvester MD Eosinophils (Bld) [#/Vol] 0.351 10*3/uL Normal 15-500 [facility] Comment on above: Performed By: #### 6 517, 43095, 7600, 6399, 38945 #### [facility] of [place] [address] [employer] Spinner: Camilo Sylvester MD Eosinophils/100 WBC (Bld) 4.5 % Normal [facility] Comment on above: Performed By: #### 6 517, 15854, 7600, 6399, 80176 #### [facility] of [place] [address] [employer] Spinner: Camilo Sylvester MD Erythrocyte distribution width (RBC) [Ratio] 13.0 % Normal 11.0-15.0 [facility] Comment on above: Performed By: #### 6 517, 06841, 7600, 6399, 43768 #### [facility] of [place] [address] [employer] Spinner: Camilo Sylvester MD Hematocrit (Bld) [Volume fraction] 45.5 % Normal 38.5-50.0 [facility] Comment on above: Performed By: #### 6 517, 14039, 7600, 6399, 66306 #### [facility] of [place] [address] [employer]inner: Camilo Sylvester MD Hemoglobin (Bld) [Mass/Vol] 14.3 g/dL Normal 13.2-17.1 [facility] Comment on above: Performed By: #### 6 517, 64337, 7600, 6399, 84573 #### [facility] of [place] [address] [employer]inner: Camilo Sylvester MD Lymphocytes (Bld) [#/Vol] 2.012 10*3/uL Normal 850-3900 [facility] Comment on above: Performed By: #### 6 517, 18625, 7600, 6399, 89137 #### [facility] of [place] [address] [employer]inner: Camilo Sylvester MD Lymphocytes/100 WBC (Bld) 25.8 % Normal [facility] Comment on above: Performed By: #### 6 517, 82167, 7600, 6399, 14398 #### [facility] of [place] [address] [employer]inner: Camilo Sylvester MD MCH (RBC) [Entitic mass] 30.4 pg Normal 27.0-33.0 [facility] Comment on above: Performed By: #### 6 517, 41437, 7600, 6399, 89385 #### [facility] [place] [address] [employer] Spinner: Camilo Sylvester MD MCHC (RBC) [Mass/Vol] 31.4 g/dL Low 32.0-36.[address] [facility] Comment on above: Result Comment: For adults, a slight decrease in the calculated MCHC value (in the range of 30 to 32 g/dL) is most likely not clinically significant; however, it should be interpreted with caution in correlation with other red cell parameters and the patient's clinical condition. Performed By: #### 6 517, 72230, 7600, 6399, 53648 #### [facility] of [place] [address] [employer]inner: Camilo Sylvester MD MCV (RBC) [Entitic vol] 96.6 fL Normal 80.0-100.0 [facility] Comment on above: Performed By: #### 6 517, 44975, 7600, 6399, 51859 #### [facility] of [place] [address] [employer] Spinner: Camilo Sylvester MD Monocytes (Bld) [#/Vol] 0.562 10*3/uL Normal 200-950 [facility] Comment on above: Performed By: #### 6 517, 62552, 7600, 6399, 77179 #### [facility] of [place] [address] [employer]inner: Camilo Sylvester MD Monocytes/100 WBC (Bld) 7.2 % Normal [facility] Comment on above: Performed By: #### 6 517, 48900, 7600, 6399, 86248 #### [facility] of [place] [address] [employer] Spinner: Camilo Sylvester MD Neutrophils (Bld) [#/Vol] 4.836 10*3/uL Normal 4962-9681 [facility] Comment on above: Performed By: #### 6 517, 66499, 7600, 6399, 68061 #### [facility] of [place] [address] [employer] Spinner: Camilo Sylvester MD Neutrophils/100 WBC (Bld) 62 % Normal [facility] Comment on above: Performed By: #### 6 517, 67119, 7600, 6399, 89234 #### [facility] of [place] [address] [employer]inner: Camilo Sylvester MD Platelet mean volume (Bld) [Entitic vol] 10.8 fL Normal 7.5-12.5 [facility] Comment on above: Performed By: #### 6 517, 72497, 7600, 6399, 01805 #### [facility] of [place] [address] [employer]inner: Camilo Sylvester MD Platelets (Bld) [#/Vol] 319 10*3/uL Normal 140-400 [facility] Comment on above: Performed By: #### 6 517, 93312, 7600, 6399, 47088 #### [facility] of [address], [address] [place] [address] [employer]et Spinner: Camilo Sylvester MD RBC (Bld) [#/Vol] 4.71 10*6/uL Normal 4.20-5.80 [facility] Comment on above: Performed By: #### 6 517, 31812, 7600, 6399, 00407 #### [facility] of [address], [address] [place] [address] [employer] Spinner: Camilo Sylvester MD WBC (Bld) [#/Vol] 7.8 10*3/uL Normal 3.8-10.8 [facility] Comment on above: Performed By: #### 6 517, 61298, 7600, 6399, 49382 #### [facility] of [address], [address] [place] [address] [employer] Spinner: Camilo Sylvester MD COMPREHENSIVE METABOLIC PANE L W/ANION GAPon 04-29-2025 Albumin [Mass/Vol] 4.0 g/dL Normal 3.6-5.1 [facility] Comment on above: Performed By: #### 6 517, 87073, 7600, 6399, 62779 #### [facility] of [address], [address] [place] [address] [employer] Spinner: Camilo Sylvester MD ALP [Catalytic activity/Vol] 79 U/L Normal 35-144 [facility] Comment on above: Performed By: #### 6 517, 36322, 7600, 6399, 50952 #### [facility] of [address], [address] [place] [address] Riv[employer] Spinner: Camilo Sylvester MD ALT [Catalytic activity/Vol] 9 U/L Normal 9-46 [facility] Comment on above: Performed By: #### 6 517, 08130, 7600, 6399, 49821 #### [facility] of [address], [address] [place] [address] Rivet Spinner: Camilo Sylvester MD AST [Catalytic activity/Vol] 13 U/L Normal 10-35 [facility] Comment on above: Performed By: #### 6 517, 48882, 7600, 6399, 26240 #### [facility] of [address], [address] [place] [address] [employer] Spinner: Camilo Syvlester MD Bilirubin [Mass/Vol] 0.7 mg/dL Normal 0.2-1.2 [facility] Comment on above: Performed By: #### 6 517, 54432, 7600, 6399, 15275 #### [facility] of [address], [address] [place] [address] Rivet Spinner: Camilo Sylvester MD Calcium [Mass/Vol] 8.8 mg/dL Normal 8.6-10.3 [facility] Comment on above: Performed By: #### 6 517, 20016, 7600, 6399, 33191 #### [facility] of [address], [address] [place] [address] [employer] Spinner: Camilo Sylvester MD Chloride [Moles/Vol] 105 mmol/L Normal 98-110 [facility] Comment on above: Performed By: #### 6 517, 91558, 7600, 6399, 49277 #### [facility] of [place] [address] [employer] Spinner: Camilo Sylvester MD CO2 [Moles/Vol] 26 mmol/L Normal 20-32 [facility] Comment on above: Performed By: #### 6 517, 07853, 7600, 6399, 97768 #### [facility] of [place] [address] [employer] Spinner: Camilo Sylvester MD Creatinine [Mass/Vol] 0.79 mg/dL Normal 0.70-1.[address] [facility] Comment on above: Performed By: #### 6 517, 18584, 7600, 6399, 61941 #### [facility] of [place] [address] [employer] Spinner: Camilo Sylvester MD ELECTROLYTE BALANCE 12 mmol/L (calc) Normal 7-17 [facility] Comment on above: Performed By: #### 6 517, 68560, 7600, 6399, 38094 #### [facility] [place] [address] [employer] Spinner: Camilo Sylvester MD GFR/1.73 sq M.predicted among non-blacks MDRD (S/P/Bld) [Vol rate/Area] 89 mL/min/{1.73_m2} Normal > OR = 60 [facility] Comment on above: Performed By: #### 6 517, 35828, 7600, 6399, 13204 #### [facility] [place] [address] [employer] Spinner: Camilo Sylvester MD Glucose [Mass/Vol] 121 mg/dL High 65-99 [facility] Comment on above: Result Comment: Fasting reference interval For someone without known diabetes, a glucose value between 100 and 125 mg/dL is consistent with prediabetes and should be confirmed with a follow-up test. Performed By: #### 6 517, 20811, 7600, 6399, 38822 #### [facility] [place] [address] [employer] Spinner: Camilo Sylvester MD Potassium [Moles/Vol] 4.4 mmol/L Normal 3.5-5.3 [facility] Comment on above: Performed By: #### 6 517, 92057, 7600, 6399, 66465 #### [facility] [place] [address] [employer]inner: Camilo Sylvester MD Protein [Mass/Vol] 6.4 g/dL Normal 6.1-8.1 [facility] Comment on above: Performed By: #### 6 517, 31231, 7600, 6399, 19576 #### [facility] [place] [address] [employer] Spinner: Camilo Sylvester MD Sodium [Moles/Vol] 143 mmol/L Normal 135-146 [facility] Comment on above: Performed By: #### 6 517, 36301, 7600, 6399, 96133 #### [facility] [address], [address] [place] [address] [employer] Spinner: Camilo Sylvester MD Urea nitrogen [Mass/Vol] 15 mg/dL Normal 7-25 [facility] Comment on above: Performed By: #### 6 517, 36983, 7600, 6399, 71683 #### [facility] [address], [address] [place] [address] [employer] Spinner: Camilo Sylvester MD HEMOGLOBIN A1c WITH eAGon eAG (mmol/L) 8.9 mmol/L Normal [facility] Comment on above: Performed By: #### 6 517, 73116, 7600, 6399, 37510 #### [facility] [address], [address] [place] [address] Rivet Spinner: Camilo Sylvester MD HbA1c (Bld) [Mass fraction] 7.2 % High <5.7 [facility] Comment on above: Result Comment: For someone without known diabetes, a hemoglobin A1c value of 6.5% or greater indicates that they may have diabetes and this should be confirmed with a follow-up test. For someone with known diabetes, a value <7% indicates that their diabetes is well controlled and a value greater than or equal to 7% indicates suboptimal control. A1c targets should be individualized based on duration of diabetes, age, comorbid conditions, and other considerations. Currently, no consensus exists regarding use of hemoglobin A1c for diagnosis of diabetes for children. Performed By: #### 6 517, 85843, 7600, 6399, 64808 #### [facility] [address], [address] [place] [address] Rivet Spinner: Camilo Sylvester MD Magnesium [Mass/Vol] 160 mg/dL Normal [facility] Comment on above: Performed By: #### 6 517, 62020, 7600, 6399, 70980 #### [facility] [address], [address] [place] [address] Rivet Spinner: Camilo Sylvester MD LIPID PANEL, [place] [address] Cholesterol [Mass/Vol] 126 mg/dL Normal <200 [facility] Comment on above: Order Comment: FASTI NG:YES AN UPDATE OR CORRECTION HAS BEEN MADE TO NAME FASTING: YES Performed By: #### 6 517, 01056, 7600, 6399, 19630 #### [facility] [address], [address] [place] [address] [employer] Spinner: Camilo Sylvester MD Cholesterol in HDL [Mass/Vol] 51 mg/dL Normal > OR = 40 [facility] Comment on above: Order Comment: FASTI NG:YES AN UPDATE OR CORRECTION HAS BEEN MADE TO NAME FASTING: YES Performed By: #### 6 517, 28611, 7600, 6399, 30699 #### [facility] [address], [address] [place] [address] [employer] Spinner: Camilo Sylvester MD Cholesterol in LDL [Mass/Vol] 60 mg/dL Normal [facility] Comment on above: Order Comment: FASTI NG:YES AN UPDATE OR CORRECTION HAS BEEN MADE TO NAME FASTING: YES Result Comment: Refe rence range: <100 Desirable range <100 mg/dL for primary prevention; <70 mg/dL for patients with CHD or diabetic patients with > or = 2 CHD risk factors. LDL-C is now calculated using the Allen-Sarah calculation, which is a validated novel method providing better accuracy than the Friedewald equation in the estimation of LDL-C. Allen YADAV et al. ASHOK. 2013;310(19): 5010-2944 (http://education.Factor.io.FuelMyBlog/faq/ZNO700) Performed By: #### 6 517, 57009, 7600, 6399, 70988 #### [facility] [address], [address] [place] [address] Rivet Spinner: Camilo Sylvester MD Cholesterol.total/Chol esterol in HDL [Mass ratio] 2.5 {ratio} Normal <5.0 [facility] Comment on above: Order Comment: FASTI NG:YES AN UPDATE OR CORRECTION HAS BEEN MADE TO NAME FASTING: YES Performed By: #### 6 517, 94824, 7600, 6399, 06581 #### [facility] [address], [address] [place] [address] Rivet Spinner: Camilo Sylvester MD NON HDL CHOLESTEROL 75 mg/dL (calc) Normal <130 [facility] Comment on above: Order Comment: FASTI NG:YES AN UPDATE OR CORRECTION HAS BEEN MADE TO NAME FASTING: YES Result Comment: For patients with diabetes plus 1 major ASCVD risk factor, treating to a non-HDL-C goal of <100 mg/dL (LDL-C of <70 mg/dL) is considered a therapeutic option. Performed By: #### 6 517, 05983, 7600, 6399, 36347 #### [facility] [address], [address] [place] [address] [employer] Spinner: Camilo Sylvester MD Triglyceride [Mass/Vol] 74 mg/dL Normal <150 [facility] Comment on above: Order Comment: FASTI NG:YES AN UPDATE OR CORRECTION HAS BEEN MADE TO NAME FASTING: YES Performed By: #### 6 517, 14497, 7600, 6399, 30898 #### [facility] [address], [address] [place] [address] [employer] Spinner: Camilo Sylvester MD PSA, TOTALon 04-29-2025 PSA, TOTAL 2.06 ng/mL Normal < OR = 4.00 [facility] Comment on above: Result Comment: The total PSA value from this assay system is standardized against the WHO standard. The test result will be approximately 20% lower when compared to the equimolar-standardized total PSA (Ibrahima Shweta). Comparison of serial PSA results should be interpreted with this fact in mind. This test was performed using the Siemens chemiluminescent method. Values obtained from different assay methods cannot be used interchangeably. PSA levels, regardless of value, should not be interpreted as absolute evidence of the presence or absence of disease. Performed By: #### 6 517, 99350, 7600, 6399, 79316 #### [facility] [address], [address] [place] [address] Rivet Spinner: Camilo Sylvester MD SP/HP.SP.Mumtaz 03-30-2025 SP/HP.SP.EV [facility] [address] [place] [address] / REHABILITATION SERVICES INITIAL EVALUATION MR#: [id number] Acct: [id number] Name: ROCIO SANDOVAL Rep #: [id number] : 1945 79 From: [place] Referring Dr.: Dr. Milton Jha MD Status: REG RCR Insurance: O MEDICARE SELF PAY INSURANCE Visit History Visit Info Date of Eval: 03/26/25 Today is Visit #: 1 Head Of Drama: PAULINO History Attending Doctor: Reason for Referral: [facility]/PRESBYLARYN X/ VOICE THERAPY. RX HERE. Date of Onset of Diagnosis: December 2024 Previous speech therapy: No Other Relevant Medical History/Diagnoses/Surg gustavo: The patient is an 79-year-old male presenting with voice disorder. Pt has a history of candidiasis of the tongue, dysphagia, GERD, arthritits, sleep apnea, atrial fibrillation, HTN, and a pacemaker. He underwent a procedure for his pacemaker at , and suffered from an esophageal perforation. An esophageal stent was placed and then removed by Dr. Khoury at [facility] (he was moved from to [facility]). Following this, he reports losing his voice on two separate occasions during participation in events organized by the [employer], where he had to cease speaking unexpectedly. He experienced no associated pain but noted an inability to continue speaking. He also reports a change in his overall vocal quality, becoming more hoarse. Medications related to this diagnosis: atorvastatin [Lipitor] 10 mg tablet, colchicine 0.6 mg tablet, empagliflozin [Jardiance] 10 mg tablet, furosemide [Lasix] 20 mg tablet, gabapentin 800 mg tablet, levocetirizine [Xyzal] 5 mg tablet, metformin 750 mg tablet, metoprolol succinate 25 mg tablet extended release 24 hr, multivitamin Tablet, pantoprazole 40 mg tablet,delayed release (/EC), rivaroxaban [Xarelto] 20 mg Tablet, vit C,O-Fg-hglhm-lutein-ze axan [PreserVision AREDS-2] 250-90-40-1 mg capsule Smoking Status: Never smoker Diagnosis Diagnosis: Mild voice disorder Pain Is pain an issue with your current prescribed condition?: No Personal Preferred language: [place] Patient Allergies Allergies Allergies: Allergies No Known Allergies Allergy (Verified 03/12/25 09:34) Subjective Voice Medications Mediations: atorvastatin [Lipitor] 10 mg tablet, colchicine 0.6 mg tablet, empagliflozin [Jardiance] 10 mg tablet, furosemide [Lasix] 20 mg tablet, gabapentin 800 mg tablet, levocetirizine [Xyzal] 5 mg tablet, metformin 750 mg tablet, metoprolol succinate 25 mg tablet extended release 24 hr, multivitamin Tablet, pantoprazole 40 mg tablet,delayed release (DR/EC), rivaroxaban [Xarelto] 20 mg Tablet, vit C,Y-Dw-vfael-lutein-ze axan [PreserVision AREDS-2] 250-90-40-1 mg capsule Intubation Was the Client intubated: No Intake Water (ounces): 18 Coffee (ounces): 16 Soda (ounces): 16 Alcoholic Beverage Intake Intake: Never Other Product Usage Do you use products containing menthol (if yes, list): No Do you take Vitamin C Supplements (if yes, list amt (mg)/day: No Do you use recreational drugs (if yes, list type/amt/frequency): No Objective Voice Date of Diagnosis Date of diagnosis: December 2024 Previous Speech Therapy (If yes, describe): No Objective data Objective Data: Objective data: Sound pressure level (SPL acoustic correlation of vocal loudness) was measured with a sound level meter at a distance of 40 cm from the patient's mouth. Average conv ersational loudness is 70-80 dB and sustained phonation duration is 15 to 20 seconds for a typical adult. Sustained Phonation Intensity (dB SPL): 60 Sustained Phonatin duration (seconds): 7.66 Is the individual stimulable to increase vocal intensity: No Vocal Intensity at Sentence Level (dB SPL): 55-61 Vocal Intensity at Paragraph Level (dB SPL): 55-61 Vocal Intensity at Conversational Level (dB SPL): 55-61 Observational Assessment Pitch Range in octaves: 1 Maximum Phonation Time in seconds: 7.66 S/Z Ratio: 1.13 Sustained /s/: 9.1 Sustained /z/: 8 Ratio: 1.13 Greater than 1:4 (indicates dysfunction): No Voice Handicap Index (VHI) VHI VHI Administered: Yes VHI: Patient completed the Voice Handicap Index, which is a 30 item, self administered questionnaire that asks an individual to describe their voice and the effects of their voice on their life. Three subscales cover the areas of functional, emotional, and physical aspects of the voice disorders. Points from the questions can be combined to assign a total score, or they can be combined by subscale. Results for the VHI are as follows: Date: 03/30/25 VHI Test Functional: Score: 13 Physical: Score: 21 Emotional: Score: 9 Total Severity Rating: Moderate (31-60) Comments -: -: Total Score: 43 Reference: Neuro-QoL instrument Radiation Oncology Patient Plan Plan (more content not included)... Normal [facility] TESTOSTERONE, FREE (DIALYSIS ) AND TOTAL,MSon 03-16-2025 TESTOSTERONE, FREE 5.6 pg/mL Low 30.0-135.0 [facility] Comment on above: Order Comment: PATIE NT NOT FASTING; ADVISED TO RETURN FOR COLLECTION. Result Comment: This test was developed and its analytical performance characteristics have been determined by [facility] [place]. It has not been cleared or approved by the U.S. Food and Drug Administration. This assay has been validated pursuant to the CLIA regulations and is used for clinical purposes. Performed By: #### 3 [id number] #### [facility] [address] [place] [address] Rivet Spinner: Benjamin Reis M.D.,PhD TESTOSTERONE, TOTAL, MS 44 ng/dL Low 250-1100 [facility] Comment on above: Order Comment: PATIE NT NOT FASTING; ADVISED TO RETURN FOR COLLECTION. Result Comment: Men with clinically significant hypogonadal symptoms and testosterone values repeatedly in the range of the 200-300 ng/dL or less, may benefit from testosterone treatment after adequate risk and benefits counseling. For additional information, please refer to [email or web address].FuelMyBlog/faq/ [email or web address] (This link is being provided for informational/ educational purposes only.) This test was developed and its analytical performance characteristics have been determined by [facility] [place]. It has not been cleared or approved by the U.S. Food and Drug Administration. This assay has been validated pursuant to the CLIA regulations and is used for clinical purposes. Performed By: #### 3 6170 #### [facility] [address] [facility] [place], [place] Rivet Spinner: Benjamin Reis M.D.,PhD Gastroenterology Visit [facility] 03-12-2025 Gastroenterology Visit Report [facility] [address] [place] [address] OFFICE VISIT Date of Service: 03/12/25 MR#: [id number] Acct: [id number] Name: ROCIO SANDOVAL Rep #: [id number] : 1945 Provider: YUE regalado Age/Sex: 79/M Location[place] [facility] [place] Status: Signed Intake Vital Signs 10/22/24 15:02 03/12/25 09:40 Height 6 ft 2 in 6 ft 2 in Weight: 220 lb 8 oz BMI 28.3 BP 138/77 H Respiration 18 Pulse 76 Temp 97.8 F Temp Source Temporal Pulse Oximetry (%) 95 Oxygen Delivery Method room air Intake Visit Reasons: Previous Esophageal Performation Chief Complaint: Esphogeal perforation [employer] Super[employer] Required: No Accompanied by: Is patient in pain?: No Allergies No Known Allergies Allergy (Verified 03/12/25 09:34) Medications ???Medication ???Instructions ???Recorded ???Confirmed ???Type rivaroxaban 20 mg tablet (Xarelto) 20 mg PO DINNER 30 days #30 tabs 10/24/24 03/12/25 Rx atorvastatin 10 mg tablet (Lipitor) 5 mg PO QDAY 03/12/25 03/12/25 History clotrimazole 10 mg gracy 10 mg mucous membrane .five times 03/12/25 03/12/25 Rx a day 10 days #50 tabs colchicine 0.6 mg tablet 0.6 mg PO QDAY 03/12/25 03/12/25 H istory empagliflozin 10 mg tablet 10 mg PO QDAY 03/12/25 03/12/25 Hi story (Jardiance) furosemide 20 mg tablet (Lasix) 20 mg PO QAM PRN 03/12/25 03/12/25 History gabapentin 800 mg tablet 800 mg PO BID 03/12/25 03/12/25 Hi story levocetirizine 5 mg tablet (Xyzal) 5 mg PO QPM PRN 03/12/25 5 History metformin 750 mg tablet 750 mg PO BID 03/12/25 03/12/25 Hi story metoprolol succinate 25 mg 25 mg PO DAILY 03/12/25 History tablet,extended release 24 hr multivitamin 1 tab PO QDAY 03/12/25 03/12/25 Hi story pantoprazole 40 mg tablet,delayed 40 mg PO DAILY 03/12/25 History release vit C 250 mg-vit E 90 mg-zinc 40 1 tab PO BID 03/12/25 03/12/25 His tory mg-copper 1 fk-fsnqjm-hngdsx capsule (PreserVision AREDS-2) Have you fallen in the past year?: Yes PFSH Medical History Neuropathy Heart failure Heart disease Cataracts, both eyes Seasonal allergies Non-smoker History of pacemaker Diabetes mellitus GERD (gastroesophageal reflux disease) Kidney stone BPH (benign prostatic hyperplasia) 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 with hyperglycemia Obstructive sleep apnea Hyperlipidemia, unspecified Essential (primary) hypertension HFrEF (heart failure with reduced ejection fraction) Sick sinus syndrome Atrial fibrillation Pneumomediastinum Esophageal perforation Debility Surgical History Hx of detached retina repair History of knee replacement procedure of left knee History of back surgery History of electrophysiologic study History of exam under anesthesia with epidural steroid injection Status post biventricular cardiac pacemaker insertion Family History Mother CVA (cerebral vascular accident) Father Diabetes Sister Diabetes Brother Myocardial infarction Brother CAD (coronary artery disease) Brother Kidney disease Brother Diabetes Social History household members: significant other Smoking Status: Never smoker alcohol intake: never substance use type: does not use what type of physical activity do you participate in: none HPI HPI Chief Complaint: Esphogeal perforation Details: EGD 10/22/2024 An esophageal stent was found in the entire esophagus. Stent removal was accomplished with a jumbo forceps. Full-strength contrast was injected through the scope and with the use of fluoroscopy no contrast was seen leaking out of the esophagus. No perforation was seen. There was a presence of a large hiatal hernia. There was evidence of an intact gastrostomy with a patent G-tube present in the gastric body. This was characterized by healthy appearing mucosa. The PEG required removal because it was no longer necessary. The PEG was cut externally, grasped, and removed with the scope. Removal was easily accomplished. No gross lesions were noted in the entire examined duodenum. Non-severe esophagitis with no bleeding was found 27 to 37 cm from the incisors. A large hiatal hernia was present. The patient is an 79-year-old male presenting with voice disorder and dysphagia. He reports losing his voice on two separate occasions during participation in events organized by the [employer], where he had to cease speaking unexpectedly. He experienced no associated pain but noted an inability to continue speaking. These voice changes began a few months ago and have been recurrent since. In terms of (more content not included)... Normal [facility] TRANSTHORACIC ECHO (TTE) COM [facility] 01-29-2025 TRANSTHORACIC ECHO ([place]) [place] [address] [phone], TRANSTHORACIC ECHOCARDIOGRAM REPORT Patient Name: ROCIO Pack Physician: [id number] Enrique Welsh MD Study Date: 01/29/2025 Ordering Provider: [id number] ARAIVND JIMENEZ MRN/PID: [id number] Fellow: Nurse: Date of /Age: 2 1945 Investigator Fraud: Trey Severino RDCS years Gender Assigned at M Additional Staff: : Height: 185.42 cm Admit Date: Weight: 97.52 kg Admission Status: Outpatient BSA / BMI: 2.22 m2 / 28.37 Department Location: [facility] Echo Lab kg/m2 Blood Pressure: 128 /73 mmHg Study Type: TRANSTHORACIC ECHO (TTE) COMPLETE Diagnosis/ICD: Shortness of breath-R06.02 CPT Codes: Echo Complete w Full Doppler-22976 Study Detail: The following Echo studies were performed: 2D, M-Mode, Doppler and color flow. PHYSICIAN INTERPRETATION: Left Ventricle: The left ventricular systolic function is mildly decreased with a visually estimated ejection fraction of 40-45%. There is mild concentric left ventricular hypertrophy. There is global hypokinesis of the left ventricle with minor regional variations. The left ventricular cavity size is mildly dilated. There is normal septal and mildly increased posterior left ventricular wall thickness. Abnormal (paradoxical) septal motion, consistent with RV pacemaker. Left ventricular diastolic filling cannot be determined due to atrial fibrillation/flutter. Left Atrium: The left atrial size is normal. Right Ventricle: The right ventricle is moderately enlarged. There is mildly reduced right ventricular systolic function. Right Atrium: The right atrial size is severely dilated. Aortic Valve: The aortic valve is trileaflet. The aortic valve area by VTI is 2.11 cm?? with a peak velocity of 1.32 m/s. The peak and mean gradients are 6 mmHg and 4 mmHg, respectively, with a dimensionless index of 0.43. There is mild aortic valve cusp calcification. There is mild to moderate aortic valve thickening. There is evidence of mildly elevated transaortic gradients consistent with sclerosis of the aortic valve. There is no evidence of aortic valve regurgitation. Mitral Valve: The mitral valve is mildly thickened. The mitral valve spectral Doppler A-wave is absent, consistent with atrial fibrillation. There is trace mitral valve regurgitation. The E Vmax is 0.53 m/s. Tricuspid Valve: The tricuspid valve is structurally normal. There is mild tricuspid regurgitation. The Doppler estimated right ventricular systolic pressure (RVSP) is within normal limits at 30 mmHg. Pulmonic Valve: The pulmonic valve is structurally normal. There is physiologic pulmonic valve regurgitation. Pericardium: Trivial pericardial effusion. Aorta: The aortic root is normal. CONCLUSIONS: 1. The left ventricular systolic function is mildly decreased with a visually estimated ejection fraction of 40-45%. 2. There is global hypokinesis of the left ventricle with minor regional variations. 3. Left ventricular cavity size is mildly dilated. 4. Abnormal septal motion consistent with RV pacemaker. 5. There is mildly reduced right ventricular systolic function. 6. Moderately enlarged right ventricle. 7. The right atrial size is severely dilated. 8. Absent A-wave on MV spectral Doppler tracing, consistent with atrial fibrillation. 9. The Doppler estimated RVSP is within normal limits at 30 mmHg. 10. Aortic valve sclerosis. The peak and mean gradients are 7 mmHg and 4 mmHg respectively. QUANTITATIVE DATA SUMMARY: 2D MEASUREMENTS: Normal Ranges: Ao Root d: 3.40 cm (2.0-3.7cm) LAs: 5.20 cm (2.7-4.0cm) IVSd: 1.02 cm (0.6-1.1cm) LVPWd: 1.34 cm (0.6-1.1cm) LVIDd: 5.78 cm (3.9-5.9cm) LVIDs: 4.79 cm LV Mass Index: 130.1 g/m2 LVEDV Index: 64.86 ml/m2 LV % FS 17.1 % LEFT ATRIUM: Normal Ranges: LA Vol A4C: 55.9 ml (22+/-6mL/m2) LA Vol A2C: 69.4 ml LA Vol BP: 68.4 ml LA Vol Index A4C: 25.2ml/m2 LA Vol Index A2C: 31.3 ml/m2 LA Vol Index BP: 30.8 ml/m2 LA Area A4C: 20.3 cm2 LA Area A2C: 20.6 cm2 LA Major Barnhart A4C: 6.3 cm LA Major Barnhart A2C: 5.2 cm LA Volume Index: 25.1 ml/m2 LA Vol A4C: 55.7 ml LA Vol A2C: 57.0 ml LA Vol Index BSA: 25.4 ml/m2 M-MODE MEASUREMENTS: Normal Ranges: AoV Exc: 1.30 cm (1.5-2.5cm) AORTA MEASUREMENTS: Normal Ranges: AoV Exc: 1.30 cm (1.5-2.5cm) LV SYSTOLIC FUNCTION: Normal Ranges: EF-A4C View: 46 % (>=55%) EF-A2C View: 47 % EF-Biplane: 46 % EF-Visual: 43 % LV EF Reported: 43 % LV DIASTOLIC FUNCTION: Normal Ranges: MV Peak E: 0.53 m/s (0.7-1.2 m/s) MV Peak A: 0.50 m/s (0.42-0.7 m/s) E/A Ratio: 1.07 (1.0-2.2) MV e' 0.082 m/s (>8.0) MV lateral e' 0.07 m/s MV medial e' 0.09 m/s E/e' Ratio: 6.51 (<8.0) AORTIC VALVE: Normal Ranges: AoV Vmax: 1.32 m/s (<=1.7m/s) AoV Peak P.0 mmHg (<20mmHg) AoV Mean P.0 mmHg (1.7-11.5mmHg) LVOT Max Marin: 0.63 m/s (<=1.1m/s) AoV VTI: 28.10 cm (more content not included)... Normal [facility] TSH W/REFLEX TO FT4on 2024 TSH W/REFLEX TO FT4 2.63 mIU/L Normal 0.40-4.50 [facility] Comment on above: Order Comment: FASTI NG:UNKNOWNFASTING: UNKNOWN Performed By: #### 8 98, 627, 053 #### [place] [address] Rivet Spinner: Camilo Sylvester MD #### [id number], [id number] #### [facility]/[address] [place], [place] Rivet Spinner: Benjamin Reis M.D.,PhD CBC (INCLUDES DIFF/PLT)on Basophils (Bld) [#/Vol] 0.041 10*3/uL Normal 0-200 [facility] Comment on above: Performed By: #### 8 90, 04, 867 #### [facility] [address], [address] [place], [place] [address] [employer]et Spinner: Camilo Sylvester MD #### [id number], [id number] #### [facility]/[address] [place], [place] Rivet Spinner: Benjamin Reis M.D.,PhD Basophils/100 WBC (Bld) 0.5 % Normal [facility] Comment on above: Performed By: #### 8 76, 809, 865 #### [facility] [place] [address], [address] [place], [place] [id number] Rivet Spinner: Camilo Sylvester MD #### [id number], [id number] #### [facility]/[address] [place], [place] Rivet Spinner: Benjamin Reis M.D.,PhD Eosinophils (Bld) [#/Vol] 0.356 10*3/uL Normal 15-500 [facility] Comment on above: Performed By: #### 8 66, 859, 867 #### [facility] of [place] [address] , [address] [place], [place] [id number] Rivet Spinner: Camilo Sylvester MD #### [id number], [id number] #### [facility]/[address] [place] Rivet Spinner: Benjamin Reis M.D.,PhD Eosinophils/100 WBC (Bld) 4.4 % Normal [facility] Comment on above: Performed By: #### 8 66, 859, 867 #### [facility] of [place] [address], [address] [place], [place] [id number] [employer]et Spinner: Camilo Sylvester MD #### [id number], [id number] #### [facility]/[address] [place], [place] [employer]et Spinner: Benjamin Reis M.D.,PhD Erythrocyte distribution width (RBC) [Ratio] 11.9 % Normal 11.0-15.0 [facility] Comment on above: Performed By: #### 8 66, 859, 867 #### [facility] of [place] [address], [address] [place], [place] [id number] Rivet Spinner: Camilo Sylvester MD #### [id number], [id number] #### [facility]/[address] [place] Rivet Spinner: Benjamin Reis M.D.,PhD Hematocrit (Bld) [Volume fraction] 44.3 % Normal 38.5-50.0 [facility] Comment on above: Performed By: #### 8 66, 859, 867 #### [facility] of [address], [address] [place], [place] [id number] [employer]et Spinner: Camilo Sylvester MD #### [id number], [id number] #### [facility]/[address] [place] [employer]et Spinner: Benjamin Reis M.D.,PhD Hemoglobin (Bld) [Mass/Vol] 14.0 g/dL Normal 13.2-17.1 [facility] Comment on above: Performed By: #### 8 66, 85, 867 #### [facility] of [address], [address] [place] [address] Rivet Spinner: Camilo Sylvester MD #### [id number], [id number] #### [facility]/[address] [place] Rivet Spinner: Benjamin Reis M.D.,PhD Lymphocytes (Bld) [#/Vol] 2.203 10*3/uL Normal 850-3900 [facility] Comment on above: Performed By: #### 8 , 859, 867 #### [facility] of [address], [address] [place], [place] [id number] [employer] Spinner: Camilo Sylvester MD #### [id number], [id number] #### [facility]/[address] [place] [employer]et Spinner: Benjamin Reis M.D.,PhD Lymphocytes/100 WBC (Bld) 27.2 % Normal [facility] Comment on above: Performed By: #### 8 , 859, 867 #### [facility] of [address], [address] [place], [place] [id number] Rivet Spinner: Camilo Sylvester MD #### [id number], [id number] #### [facility]/[address] [place] Rivet Spinner: Benjamin Reis M.D.,PhD MCH (RBC) [Entitic mass] 31.4 pg Normal 27.0-33.0 [facility] Comment on above: Performed By: #### 8 66, 859, 867 #### [facility] [address], [address] [place], [place] [id number] Rivet Spinner: Camilo Sylvester MD #### [id number], [id number] #### [facility]/[address] [place] Rivet Spinner: Benjamin Reis M.D.,PhD MCHC (RBC) [Mass/Vol] 31.6 g/dL Low 32.0-36.[address] [facility] Comment on above: Result Comment: For adults, a slight decrease in the calculated MCHC value (in the range of 30 to 32 g/dL) is most likely not clinically significant; however, it should be interpreted with caution in correlation with other red cell parameters and the patient's clinical condition. Performed By: #### 8 , 859, 867 #### [facility] [place] [id number] Rivet Spinner: Camilo Sylvester MD #### [id number], [id number] #### [facility]/[address] [place] Rivet Spinner: Benjamin Reis M.D.,PhD MCV (RBC) [Entitic vol] 99.3 fL Normal 80.0-100.0 [facility] Comment on above: Performed By: #### 8 , 859, 867 #### [facility] [place] [id number] Rivet Spinner: Camilo Sylvester MD #### [id number], [id number] #### [facility]/[address] [place] [employer]et Spinner: Benjamin Reis M.D.,PhD Monocytes (Bld) [#/Vol] 0.559 10*3/uL Normal 200-950 [facility] Comment on above: Performed By: #### 8 66, 859, 867 #### [facility] of [place] [address] Rivet Spinner: Camilo Sylvester MD #### [id number], [id number] #### [facility]/[address] [place] [employer] Spinner: Benjamin Reis M.D.,PhD Monocytes/100 WBC (Bld) 6.9 % Normal [facility] Comment on above: Performed By: #### 8 66, 85, 867 #### [facility] of [address] Rivet Spinner: Camilo Sylvester MD #### [id number], [id number] #### [facility]/[address] [place] [employer] Spinner: Benjamin Reis M.D.,PhD Neutrophils (Bld) [#/Vol] 4.941 10*3/uL Normal 7881-2733 [facility] Comment on above: Performed By: #### 8 66, 859, 867 #### [facility] of [place] [address] [employer] Spinner: Camilo Sylvester MD #### [id number], [id number] #### [facility]/[address] [place] Rivet Spinner: Benjamin Reis M.D.,PhD Neutrophils/100 WBC (Bld) 61 % Normal [facility] Comment on above: Performed By: #### 8 66, 859, 867 #### [facility] of [address] Rivet Spinner: Camilo Sylvester MD #### [id number], [id number] #### [facility]/[address] [place] Rivet Spinner: Benjamin Reis M.D.,PhD Platelet mean volume (Bld) [Entitic vol] 10.5 fL Normal 7.5-12.5 [facility] Comment on above: Performed By: #### 8 66, 85, 867 #### [facility] of [address], [address] [place] [address] Rivet Spinner: Camilo Sylvester MD #### [id number], [id number] #### [facility]/[address] [place] [employer]et Spinner: Benjamin Reis M.D.,PhD Platelets (Bld) [#/Vol] 301 10*3/uL Normal 140-400 [facility] Comment on above: Performed By: #### 8 , , 867 #### [facility] [address], [address] [place] [address] [employer]et Spinner: Camilo Sylvester MD #### [id number], [id number] #### [facility]/[address] [place] [employer] Spinner: Benjamin Reis M.D.,PhD RBC (Bld) [#/Vol] 4.46 10*6/uL Normal 4.20-5.80 [facility] Comment on above: Performed By: #### 8 , , 867 #### [facility] of [address], [address] [place] [address] Rivet Spinner: Camilo Sylvester MD #### [id number], [id number] #### [facility]/[address] [place] [employer] Spinner: Benjamin Reis M.D.,PhD WBC (Bld) [#/Vol] 8.1 10*3/uL Normal 3.8-10.8 [facility] Comment on above: Performed By: #### 8 , 859, 867 #### [facility] of [address], [address] [place], [place] [id number] [employer] Spinner: Camilo Sylvester MD #### [id number], 11901 #### [facility] [place] Rivet Spinner: Benjamin Reis M.D.,PhD COMPREHENSIVE METABOLIC PANE L W/ANION GAPon 01-21-2025 Albumin [Mass/Vol] 4.1 g/dL Normal 3.6-5.1 [facility] Comment on above: Performed By: #### 8 66, 859, 867 #### [facility] of [address], [address] [place] [address] [employer]et Spinner: Camilo Sylvester MD #### [id number], [id number] #### [facility] [place] [employer] Spinner: Benjamin Reis M.D.,PhD ALP [Catalytic activity/Vol] 71 U/L Normal 35-144 [facility] Comment on above: Performed By: #### 8 66, 859, 867 #### [facility] of [address], [address] [place], [place] [id number] [employer] Spinner: Camilo Sylvester MD #### [id number], [id number] #### [facility] [address] [place] [employer]et Spinner: Benjamin Reis M.D.,PhD ALT [Catalytic activity/Vol] 10 U/L Normal 9-46 [facility] Comment on above: Performed By: #### 8 66, 859, 867 #### [facility] of [address], [address] [place], [place] [id number] [employer]: Camilo Sylvester MD #### [id number], [id number] #### [facility] [address] [place] [employer]et Spinner: Benjamin Reis M.D.,PhD AST [Catalytic activity/Vol] 13 U/L Normal 10-35 [facility] Comment on above: Performed By: #### 8 66, 859, 867 #### [facility] [place] [address] [employer] Spinner: Camilo Sylvester MD #### 49510, 91900 #### [facility]/[address] [place] Rivet Spinner: Benjamin Reis M.D.,PhD Bilirubin [Mass/Vol] 0.5 mg/dL Normal 0.2-1.2 [facility] Comment on above: Performed By: #### 8 66, 85, 867 #### [facility] [address] Rivet Spinner: Camilo Sylvester MD #### 52248, 40545 #### [facility]/[address] [place], [place] Riv[place] Spinner: Benjamin Reis M.D.,PhD Calcium [Mass/Vol] 9.2 mg/dL Normal 8.6-10.3 [facility] Comment on above: Performed By: #### 8 66, 859, 867 #### [facility] [address] Riv[place] Spinner: Camilo Sylvester MD #### [phone] #### [facility]/[address] [place], [place] Spinner: Benjamin Reis M.D.,PhD Chloride [Moles/Vol] 104 mmol/L Normal 98-110 [facility] Comment on above: Performed By: #### 8 66, 859, 867 #### [facility] [address] [place] Spinner: Camilo Sylvester MD #### [phone], [phone] #### [facility]/[address] [place] Spinner: Benjamin Reis M.D.,PhD CO2 [Moles/Vol] 30 mmol/L Normal 20-32 [facility] Comment on above: Performed By: #### 8 66, 859, 867 #### [facility] of [address], [address] [place] [address] Rivet Spinner: Camilo Sylvester MD #### [id number], [id number] #### [facility]/[address] [place], [place] Spinner: Benjamin Reis M.D.,PhD Creatinine [Mass/Vol] 0.93 mg/dL Normal 0.70-1.22 [facility] Comment on above: Performed By: #### 8 66, 85, 867 #### [facility] [place] [address] Riv[place] Spinner: Camilo Sylvester MD #### [phone], [phone] #### [facility]/[address] [place] Spinner: Benjamin Reis M.D.,PhD ELECTROLYTE BALANCE 7 mmol/L (calc) Normal 7-17 [facility] Comment on above: Performed By: #### 8 66, 85, 867 #### [facility] [place] [address] Riv[place] Spinner: Camilo Sylvester MD #### [phone], [id number] #### [facility]/[address] [place] Spinner: Benjamin Reis M.D.,PhD GFR/1.73 sq M.predicted among non-blacks MDRD (S/P/Bld) [Vol rate/Area] 82 mL/min/{1.73_m2} Normal > OR = 60 [facility] Comment on above: Performed By: #### 8 , , 867 #### [facility] of [place] [address] Riv[place] Spinner: Camilo Sylvester MD #### [phone], [phone] #### [facility]/[place] [id number] [facility] [address] [place] Riv[place] Spinner: Benjamin Reis M.D.,PhD Glucose [Mass/Vol] 125 mg/dL High 65-99 [facility] Comment on above: Result Comment: Fasting reference interval For someone without known diabetes, a glucose value between 100 and 125 mg/dL is consistent with prediabetes and should be confirmed with a follow-up test. Performed By: #### 8 66, 85, 867 #### [facility] [place] [address] Riv[place] Spinner: Camilo Sylvester MD #### [phone], [phone] #### [facility]/[address] [place] Spinner: Benjamin Reis M.D.,PhD Potassium [Moles/Vol] 4.3 mmol/L Normal 3.5-5.3 [facility] Comment on above: Performed By: #### 8 , 54, 867 #### [facility] [address] [place] Spinner: Camilo Sylvester MD #### [phone], [phone] #### [facility]/[address] [place] Spinner: Benjamin Reis M.D.,PhD Protein [Mass/Vol] 6.4 g/dL Normal 6.1-8.1 [facility] Comment on above: Performed By: #### 8 , 389, 867 #### [facility] [address] Riv[place] Spinner: Camilo Sylvester MD #### [id number], [phone] #### [facility]/[place] [id number] [place] [address] Dr [place] Spinner: Benjamin Reis M.D.,PhD Sodium [Moles/Vol] 141 mmol/L Normal 135-146 [facility] Comment on above: Performed By: #### 8 66, 859, 867 #### [facility] of [address], [address] [place], [place] [address] Rivet Spinner: Camilo Sylvester MD #### [id number], [phone] #### [facility]/[address] [place] Spinner: Benjamin Reis M.D.,PhD Urea nitrogen [Mass/Vol] 14 mg/dL Normal 7-25 [facility] Comment on above: Performed By: #### 8 66, 859, 867 #### [facility] [place] [address] Riv[place] Spinner: Camilo Sylvester MD #### [phone], [phone] #### [facility]/[address] [place] Spinner: Benjamin Reis M.D.,PhD DIRECT LDLon 01-21-2025 Cholesterol in LDL [Mass/Vol] 64 mg/dL Normal <100 [facility] Comment on above: Order Comment: FASTI NG:YESFASTING: YES Result Comment: Grea tly elevated Triglycerides values (>1200 mg/dL) interfere with the dLDL assay. Desirable range <100 mg/dL for primary prevention; <70 mg/dL for patients with CHD or diabetic patients with > or = 2 CHD risk factors. Performed By: #### 8 66, 859, 867 #### [facility] [address], [address] [place] [address] Rivet Spinner: Camilo Sylvester MD #### [phone], [phone] #### [facility] [place] Spinner: Benjamin Reis M.D.,PhD HEMOGLOBIN A1c WITH eAGon eAG (mmol/L) 8.9 mmol/L Normal [facility] Comment on above: Performed By: #### 8 66, 859, 867 #### [facility] [address], [address] [place] [address] Rivet Spinner: Camilo Sylvester MD #### [phone], [phone] #### [facility]/[address] [place] Riv[place] Spinner: Benjamin Reis M.D.,PhD HbA1c (Bld) [Mass fraction] 7.2 % High <5.7 [facility] Comment on above: Result Comment: For someone without known diabetes, a hemoglobin A1c value of 6.5% or greater indicates that they may have diabetes and this should be confirmed with a follow-up test. For someone with known diabetes, a value <7% indicates that their diabetes is well controlled and a value greater than or equal to 7% indicates suboptimal control. A1c targets should be individualized based on duration of diabetes, age, comorbid conditions, and other considerations. Currently, no consensus exists regarding use of hemoglobin A1c for diagnosis of diabetes for children. Performed By: #### 8 66, 859, 867 #### [facility] [address], [address] [place] [address] Rivet Spinner: Camilo Sylvester MD #### [phone], [phone] #### [facility]/[address] [place] Spinner: Benjamin Reis M.D.,PhD Magnesium [Mass/Vol] 160 mg/dL Normal [facility] Comment on above: Performed By: #### 8 66, 859, 867 #### [facility] [address], [address] [place] [address] Rivet Spinner: Camilo Sylvester MD #### [phone], [phone] #### [facility]/[place] [id number] [facility] [address] [place] Riv[place] Spinner: Benjamin Reis M.D.,PhD ECG 12 lead (Clinic Performe d)on 01-15-2025 BiV Paced rhythm wit h HR of 70bpm, QRS 180ms, *Please refer to scanned ECG for final report* [facility] Work Phone: CBC W Auto Differential pane l (Bld)on 12-17-2024 Basophils (Bld) [#/Vol] 0.04 10*3/uL [facility] Basophils/100 WBC (Bld) 0.4 % 0.0 - 2.0 % [facility] Eosinophils (Bld) [#/Vol] 0.2 10*3/uL [facility] Eosinophils/100 WBC (Bld) 2.2 % 0.0 - 6.0 % [facility] Erythrocyte distribution width (RBC) [Ratio] 13.1 % 11.5 - 14.5 % [facility] Hematocrit (Bld) [Volume fraction] 41.7 % 41.0 - 52.0 % [facility] Hemoglobin (Bld) [Mass/Vol] 13.6 g/dL 13.5 - 17.5 g/dL [facility] Immature granulocytes (Bld) [#/Vol] 0.01 10*3/uL [facility] Immature granulocytes/100 WBC (Bld) 0.1 % 0.0 - 0.9 % [facility] Comment on above: Immature Granulocyte Count (IG) includes promyelocytes, myelocytes and metamyelocytes but does not include bands. Percent differential counts (%) should be interpreted in the context of the absolute cell counts (cells/UL). Interpretation and review of laboratory results Abnormal [facility] Lymphocytes (Bld) [#/Vol] 2.09 10*3/uL [facility] Lymphocytes/100 WBC (Bld) 23.1 % 13.0 - 44.0 % [facility] MCH (RBC) [Entitic mass] 32 pg 26.0 - 34.0 pg [facility] MCHC (RBC) [Mass/Vol] 32.6 g/dL 32.0 - 36.0 g/dL [facility] MCV (RBC) [Entitic vol] 98 fL 80 - 100 fL [facility] Monocytes (Bld) [#/Vol] 0.56 10*3/uL [facility] Monocytes/100 WBC (Bld) 6.2 % 2.0 - 10.0 % [facility] Neutrophils (Bld) [#/Vol] 6.13 10*3/uL High [facility] Comment on above: Percent differential counts (%) should be interpreted in the context of the absolute cell counts (cells/uL). Neutrophils/100 WBC (Bld) 68 % 40.0 - 80.0 % [facility] Nucleated RBC/100 WBC (Bld) [Ratio] 0 % [facility] Platelets (Bld) [#/Vol] 263 10*3/uL [facility] RBC (Bld) [#/Vol] 4.25 10*6/uL Low [facility] WBC (Bld) [#/Vol] 9 10*3/uL [facility] Basophils (Bld) [#/Vol] 0.04 x10*3/uL Normal 0.00-0.10 [facility] Comment on above: Performed By: #### T HYDS #### EMANUEL FLOR ([id number]) [facility] ([facility]) [address] [place] [address] Basophils/100 WBC (Bld) 0.4 % Normal 0.0-2.0 [facility] Comment on above: Performed By: #### T HYDS #### EMANUEL FLOR ([id number]) [facility] ([facility]) [address] [place] [address]2014 Eosinophils (Bld) [#/Vol] 0.20 x10*3/uL Normal 0.00-0.40 [facility] Comment on above: Performed By: #### T HYDS #### EMANUEL FLOR ([id number]) [facility] ([facility]) [address] [place] [address] Eosinophils/100 WBC (Bld) 2.2 % Normal 0.0-6.0 [facility] Comment on above: Performed By: #### T HYDS #### EMANUEL FLOR ([id number]) [facility] ([facility]) [address] [place] [address] Erythrocyte distribution width (RBC) [Ratio] 13.1 % Normal 11.5-14.5 [facility] Comment on above: Performed By: #### T HYDS #### EMANUEL FLOR ([id number]) [facility] ([facility]) [address] [place] [address] Hematocrit (Bld) [Volume fraction] 41.7 % Normal 41.0-52.0 [facility] Comment on above: Performed By: #### T HYDS #### EMANUEL FLOR ([id number]) [facility] ([facility]) [address] [place] [address] Hemoglobin (Bld) [Mass/Vol] 13.6 g/dL Normal 13.5-17.5 [facility] Comment on above: Performed By: #### T HYDS #### EMANUEL FLOR ([id number]) [facility] ([facility]) [address] [place] [address] Immature granulocytes (Bld) [#/Vol] 0.01 x10*3/uL Normal 0.00-0.50 [facility] Comment on above: Performed By: #### T MARILYS #### EMANUEL FLOR ([id number]) [facility] ([facility]) [address] [place] [address] Immature granulocytes/100 WBC (Bld) 0.1 % Normal 0.0-0.9 [facility] Comment on above: Result Comment: Kathy ture Granulocyte Count (IG) includes promyelocytes, myelocytes and metamyelocytes but does not include bands. Percent differential counts (%) should be interpreted in the context of the absolute cell counts (cells/UL). Performed By: #### T HYDS #### EMANUEL FLOR ([id number]) [facility] ([facility]) [address] [place], [place] [id number] Lymphocytes (Bld) [#/Vol] 2.09 x10*3/uL Normal 0.80-3.00 [facility] Comment on above: Performed By: #### T HYDS #### EMANUEL FLOR ([id number]) [facility] ([facility]) [address] [place] [address] Lymphocytes/100 WBC (Bld) 23.1 % Normal 13.0-44.0 [facility] Comment on above: Performed By: #### T HYDS #### EMANUEL FLOR ([id number]) [facility] ([facility]) [address] [place] [address] MCH (RBC) [Entitic mass] 32.0 pg Normal 26.0-34.0 [facility] Comment on above: Performed By: #### T HYDS #### EMANUEL FLOR ([id number]) [facility] ([facility]) [address] [place] [address] 23438 MCHC (RBC) [Mass/Vol] 32.6 g/dL Normal 32.0-36.0 [facility] Comment on above: Performed By: #### T HYDS #### EMAUNEL FLOR ([id number]) [facility] ([facility]) [address] [place] [address]30 MCV (RBC) [Entitic vol] 98 fL Normal 80-100 [facility] Comment on above: Performed By: #### T HYDS #### EMANUEL FLOR ([id number]) [facility] ([facility]) [address] [place] [address]6572 Monocytes (Bld) [#/Vol] 0.56 x10*3/uL Normal 0.05-0.80 [facility] Comment on above: Performed By: #### T HYDS #### EMANUEL FLOR ([id number]) [facility] ([facility]) [address] [place] [address] 34302 Monocytes/100 WBC (Bld) 6.2 % Normal 2.0-10.0 [facility] Comment on above: Performed By: #### T HYDS #### EMANUEL FLOR ([id number]) [facility] ([facility]) [address] [place] [address] 48666 Neutrophils (Bld) [#/Vol] 6.13 x10*3/uL High 1.60-5.50 [facility] Comment on above: Result Comment: Perc ent differential counts (%) should be interpreted in the context of the absolute cell counts (cells/uL). Performed By: #### T HYDS #### EMANUEL FLOR ([id number]) [facility] ([facility]) [address] [place] [address] Neutrophils/100 WBC (Bld) 68.0 % Normal 40.0-80.0 [facility] Comment on above: Performed By: #### T HYDS #### EMANUEL FLOR ([id number]) [facility] ([facility]) [address] [place] [address] 98747 Nucleated RBC/100 WBC (Bld) [Ratio] 0.0 /100 WBCs Normal 0.0-0.0 [facility] Comment on above: Performed By: #### T HYDS #### EMANUEL FLOR ([id number]) [facility] ([facility]) [address] [place] [address]40 Platelets (Bld) [#/Vol] 263 x10*3/uL Normal 150-450 [facility] Comment on above: Performed By: #### T HYDS #### EMANUEL FLOR ([id number]) [facility] ([facility]) [address] [place] [address] RBC (Bld) [#/Vol] 4.25 x10*6/uL Low 4.50-5.90 [facility] Comment on above: Performed By: #### T HYDS #### EMANUEL FLOR ([id number]) [facility] ([facility]) [address] [place] [address] 42689 WBC (Bld) [#/Vol] 9.0 x10*3/uL Normal 4.4-11.3 [facility] Comment on above: Performed By: #### T HYDS #### EMANUEL FLOR ([id number]) [facility] ([facility]) [address] [place] [address] HEAD WO IV CONTRASTon CT HEAD WO IV CONTRAST Interpreted By: Ludin Nguyen, STUDY: CT HEAD WO IV CONTRAST; 12/17/2024 1:36 pm INDICATION: Signs/Symptoms:dizzine ss COMPARISON: None ACCESSION NUMBER(S): [id number] ORDERING CLINICIAN: SAMMY ANDREW TECHNIQUE: Axial images were obtained through the brain. No IV contrast was administered. All CT examinations are performed with one or more of the following dose reduction techniques: Automated Exposure Control, adjustment of mA and/or kV according to patient size, or use of iterative reconstruction techniques. FINDINGS: The ventricles are enlarged but midline in position, with proportional prominence of the sulci, due to atrophy. There is no intracranial hemorrhage. No mass or mass effect is seen. The osseus structures are unremarkable. IMPRESSION: No acute intracranial process. Signed by: Ludin Nguyen 12/17/2024 2:09 PM Dictation workstation: [id number] [facility] CT Head WO contraston 2024 No acute intracrania l process. Signed by: Ludin Nguyen 12/17/2024 2:09 PM Dictation workstation: [id number] MMODAL Interpreted By: Ludin Nguyen, STUDY: CT HEAD WO IV CONTRAST; 12/17/2024 1:36 pm INDICATION: Signs/Symptoms:dizzine ss COMPARISON: None ACCESSION NUMBER(S): [id number] ORDERING CLINICIAN: SAMMY ANDREW TECHNIQUE: Axial images were obtained through the brain. No IV contrast was administered. All CT examinations are performed with one or more of the following dose reduction techniques: Automated Exposure Control, adjustment of mA and/or kV according to patient size, or use of iterative reconstruction techniques. FINDINGS: The ventricles are enlarged but midline in position, with proportional prominence of the sulci, due to atrophy. There is no intracranial hemorrhage. No mass or mass effect is seen. The osseus structures are unremarkable. MMODAL Ludin Nguyen MD - 12/17/2024 Interpreted By: Ludin Nguyen, STUDY: CT HEAD WO IV CONTRAST; 12/17/2024 1:36 pm INDICATION: Signs/Symptoms:dizzine ss COMPARISON: None ACCESSION NUMBER(S): [id number] ORDERING CLINICIAN: SAMMY ANDREW TECHNIQUE: Axial images were obtained through the brain. No IV contrast was administered. All CT examinations are performed with one or more of the following dose reduction techniques: Automated Exposure Control, adjustment of mA and/or kV according to patient size, or use of iterative reconstruction techniques. FINDINGS: The ventricles are enlarged but midline in position, with proportional prominence of the sulci, due to atrophy. There is no intracranial hemorrhage. No mass or mass effect is seen. The osseus structures are unremarkable. IMPRESSION: No acute intracranial process. Signed by: Ludin Nguyen 12/17/2024 2:09 PM Dictation workstation: [id number] [facility] Work Phone: [facility] Work Phone: Radiology Study observation (narrative) [facility] Work Phone: Coagulation surface inducedo n 12-17-2024 aPTT Coag (PPP) [Time] 34 s Normal 26-36 [facility] Comment on above: Order Comment: TSH t esting is performed using different testing methodology at [facility] than at other [facility]. Direct result comparisons should only be made within the same method. Performed By: #### T HYDS #### EMANUEL FLOR ([id number]) [facility] ([facility]) [address] [place] [address] Coagulation tissue factor in ducedon 12-17-2024 PT Coag (PPP) [Time] 14.0 s High 9.8-12.4 [facility] Comment on above: Performed By: #### T HYDS #### EMANUEL FLOR ([id number]) [facility] ([facility]) [address] [place] [address] Comprehensive metabolic 2000 panelon 12-17-2024 Albumin BCP dye [Mass/Vol] 4 g/dL 3.4 - 5.0 g/dL [facility] ALP [Catalytic activity/Vol] 63 U/L 33 - 136 U/L [facility] ALT With P-5'-P [Catalytic activity/Vol] 12 U/L 10 - 52 U/L [facility] Comment on above: Patients treated wit h Sulfasalazine may generate falsely decreased results for ALT. Anion gap [Moles/Vol] 13 mmol/L 10 - 2 0 mmol/L [facility] AST With P-5'-P [Catalytic activity/Vol] 15 U/L 9 - 39 U/L [facility] Bilirubin [Mass/Vol] 0.6 mg/dL 0.0 - 1 .2 mg/dL [facility] Calcium [Mass/Vol] 9.4 mg/dL 8.6 - 10. 3 mg/dL [facility] Chloride [Moles/Vol] 106 mmol/L 98 - 10 7 mmol/L [facility] CO2 [Moles/Vol] 25 mmol/L 21 - 32 mmol/L [facility] Creatinine [Mass/Vol] 0.74 mg/dL 0.50 - 1.30 mg/dL [facility] eGFR - PINF [facility] Comment on above: Calculations of seth mated GFR are performed using the 2020 CKD-EPI Study Refit equation without the race variable for the IDMS-Traceable creatinine methods. https://jasn.asnjournals.org/content/early//ASN.91947 54587 Glucose [Mass/Vol] 88 mg/dL 74 - 99 mg/dL [facility] Interpretation and review of laboratory results Abnormal [facility] Potassium [Moles/Vol] 4.3 mmol/L 3.5 - 5.3 mmol/L [facility] Protein [Mass/Vol] 6.3 g/dL Low 6.4 - 8.2 g/dL [facility] Sodium [Moles/Vol] 140 mmol/L 136 - 145 mmol/L [facility] Urea nitrogen [Mass/Vol] 17 mg/dL 6 - 23 mg/dL [facility] Albumin BCP dye [Mass/Vol] 4.0 g/dL Normal 3.4-5.0 [facility] Comment on above: Performed By: #### T MARISA #### EMANUEL FLOR ([id number]) [facility] ([facility]) [address] [place] [address] ALP [Catalytic activity/Vol] 63 U/L Normal 33-136 [facility] Comment on above: Performed By: #### T MARILYS #### EMANUEL FLOR ([id number]) [facility] ([facility]) [address] [place] [address] ALT With P-5'-P [Catalytic activity/Vol] 12 U/L Normal 10-52 [facility] Comment on above: Result Comment: Lien ents treated with Sulfasalazine may generate falsely decreased results for ALT. Performed By: #### T HYDS #### EMANUEL FLOR ([id number]) [facility] ([facility]) [address] [place] [address] Anion gap [Moles/Vol] 13 mmol/L Normal 10-20 [facility] Comment on above: Performed By: #### T HYDS #### EMANUEL FLOR ([id number]) [facility] ([facility]) [address] [place] [address] AST With P-5'-P [Catalytic activity/Vol] 15 U/L Normal 9-39 [facility] Comment on above: Performed By: #### T HYDS #### EMANUEL FLOR ([id number]) [facility] ([facility]) [address] [place] [address] Bilirubin [Mass/Vol] 0.6 mg/dL Normal 0.0-1.2 [facility] Comment on above: Performed By: #### T HYDS #### EMANUEL FLOR ([id number]) [facility] ([facility]) [address] [place] [address] Calcium [Mass/Vol] 9.4 mg/dL Normal 8.6-10.3 [facility] Comment on above: Performed By: #### T HYDS #### EMANUEL FLOR ([id number]) [facility] ([facility]) [address] [place] [address] Chloride [Moles/Vol] 106 mmol/L Normal 98-107 [facility] Comment on above: Performed By: #### T HYDS #### EMANUEL FLOR ([id number]) [facility] ([facility]) [address] [place] [address] CO2 [Moles/Vol] 25 mmol/L Normal 21-32 [facility] Comment on above: Performed By: #### T HYDS #### EMANUEL FLOR ([id number]) [facility] ([facility]) [address] [place] [address] 97126 Creatinine [Mass/Vol] 0.74 mg/dL Normal 0.50-1.30 [facility] Comment on above: Performed By: #### T HYDS #### EMANUEL FLOR ([id number]) [facility] ([facility]) [address] [place] [address] 40406 GFR/1.73 sq M.predicted MDRD (S/P/Bld) [Vol rate/Area] mL/min/{1.73_m2} Normal >60 [facility] Comment on above: Result Comment: Calc ulations of estimated GFR are performed using the 2020 CKD-EPI Study Refit equation without the race variable for the IDMS-Traceable creatinine methods. https://jasn.asnjournals.org/content/early//ASN.24819 59989 Performed By: #### T HYDS #### EMANUEL FLOR ([id number]) [facility] ([facility]) [address] [place] [address] 86536 Glucose [Mass/Vol] 88 mg/dL Normal 74-99 [facility] Comment on above: Performed By: #### T HYDS #### EMANUEL FLOR ([id number]) [facility] ([facility]) [address] [place] [address] 40308 Potassium [Moles/Vol] 4.3 mmol/L Normal 3.5-5.3 [facility] Comment on above: Performed By: #### T HYDS #### EMANUEL FLOR ([id number]) [facility] ([facility]) [address] [place] [address] 97256 Protein [Mass/Vol] 6.3 g/dL Low 6.4-8.2 [facility] Comment on above: Performed By: #### T HYDS #### EMANUEL FLOR ([id number]) [facility] ([facility]) [address] [place] [address] Sodium [Moles/Vol] 140 mmol/L Normal 136-145 [facility] Comment on above: Performed By: #### T HYDS #### EMANUEL FLOR ([id number]) [facility] ([facility]) [facility] [place] [id number] Urea nitrogen [Mass/Vol] 17 mg/dL Normal - [facility] Comment on above: Performed By: #### T HYDS #### EMANUEL FLOR ([id number]) [facility] ([facility]) [address] [place] [address] ECG 12-LEADon 12-17-2024 ECG 12-LEAD Ventricular Rate 82 Atrial Rate 70 QRS Duration 176 Q-T Interval 454 QTC Calculation(Bazett) 530 R Barnhart -42 T Barnhart 30 QRS Count 14 Q Onset 185 T Offset 412 QTC Fredericia 503 Diagnosis Ventricular-paced rhythm with occasional Premature ventricular complexes Biventricular pacemaker detected Abnormal ECG When compared with ECG of 02-OCT-2024 22:31, Electronic ventricular pacemaker has replaced Atrial fibrillation See ED provider note for full interpretation and clinical correlation Confirmed by Nirmala Pacheco ([id number]) on 12/20/2024 5:21:41 PM Normal [facility] Magnesiumon 12-17-2024 Magnesium [Mass/Vol] 2.3 mg/dL 1.60 - 2.40 mg/dL [facility] Magnesium [Mass/Vol] 2.30 mg/dL Normal 1.60-2.40 [facility] Comment on above: Performed By: #### T HYDS #### EMANUEL FLOR ([id number]) [facility] ([facility]) [address] [place], [place] [phone] Magnesium [Mass/Vol]on 12-17 Interpretation and review of laboratory results Normal [facility] No Panel Informationon 12-17 [facility] PT Coag (PPP) [Time]on 12-17 INR Coag (PPP) [Relative time] 1.3 {INR} High 0.9 - 1.1 [facility] Interpretation and review of laboratory results Abnormal [facility] INR Coag (PPP) [Relative time] 1.3 High 0.9-1.1 [facility] Comment on above: Performed By: #### T MARISA #### CASTELLANOS CHACHO ([id number]) [facility] ([facility]) [address] [place] [address] Protime-INRon 12-17-2024 PT Coag (PPP) [Time] 14 s High [facility] Tropinin I.cardiac panel Hig h sensitivity methodon 12-17-2024 Interpretation and review of laboratory results Normal [facility] Less than 99th percentile of normal range cutoff- Female and children under 18 years old <14 ng/L; Male <21 ng/L: Negative Repeat testing should be performed if clinically indicated. Female and children under 18 years old 14-50 ng/L; Male 21-50 ng/L: Consistent with possible cardiac damage and possible increased clinical risk. Serial measurements may help to assess extent of myocardial damage. >50 ng/L: Consistent with cardiac damage, increased clinical risk and myocardial infarction. Serial measurements may help assess extent of myocardial damage. NOTE: Children less than 1 year old may have higher baseline troponin levels and results should be interpreted in conjunction with the overall clinical context. NOTE: Troponin I testing is performed using a different testing methodology at [facility] than at other [facility]. Direct result comparisons should only be made within the same method. [facility] Troponin I, High Sensitivity on 12-17-2024 Tropinin I.cardiac panel High sensitivity method 6 ng/L 0 - 20 ng/L [facility] Troponin I.cardiac panelon 0 12-17-2024 Tropinin I.cardiac panel High sensitivity method 6 ng/L Normal 0-20 [facility] Comment on above: Order Comment: Thyro xine Free testing is performed using different testing methodology at [facility] than at other [facility]. Direct result comparisons should only be made within the same method. Biotin can cause falsely elevated free T4 results. Patients taking a Biotin dose of up to 10 mg/day should refrain from taking Biotin for 24 hours before sample collection. Patient taking a Biotin dose of >10 mg/day should consult with their physician or the laboratory before the blood draw. Performed By: #### 3 024-7 #### CASTELLANOS CHACHO ([id number]) [facility] ([facility]) [address] [place] [address] Urinalysis complete W Reflex Culture panel (U)Ordered By: Mary Ann Bonner on 12-17-2024 Appearance (U) Clear Clear [facility] Bilirubin (U) [Mass/Vol] Negative NEGATIVE mg/dL [facility] Color (U) Yellow Light-Yellow , Yellow, Dark-Yellow [facility] Glucose Auto test strip (U) [Mass/Vol] OVER (4+) Abnormal Normal mg/dL [facility] Interpretation and review of laboratory results Abnormal [facility] Ketones (U) [Mass/Vol] Negative NEGAT ALLEN mg/dL [facility] Leukocyte esterase Auto test strip Ql (U) Negative NEGATIVE [facility] Nitrite Auto test strip Ql (U) Negative NEGATIVE [facility] pH (U) 6 [pH] 5.0, 5.5, 6.0, 6.5, 7.0, 7.5, 8.0 [facility] Protein (U) [Mass/Vol] 20 (TRACE) NEGAT ALLEN, 10 (TRACE), 20 (TRACE) mg/dL [facility] RBC (U) [#/Vol] Negative NEGATIVE mg/dL [facility] Specific gravity (U) [Rel density] 1.028 1.005 - 1.035 [facility] Urobilinogen (U) [Mass/Vol] Normal Normal mg/dL [facility] OVER is reported whe n the result is greater than the clinically reportable range. [facility] Urinalysis complete W Reflex Culture panel (U)on 12-17-2024 Interpretation and review of laboratory results Normal [facility] RBC Auto (Urine sed) [#/Area] 1-2 NONE, 1-2, 3-5 /HPF [facility] WBC Auto (Urine sed) [#/Area] NONE 1-5, NONE /HPF [facility] Appearance (U) Clear Normal Clear [facility] Comment on above: Order Comment: Thyro xine Free testing is performed using different testing methodology at [facility] than at other [facility]. Direct result comparisons should only be made within the same method. Biotin can cause falsely elevated free T4 results. Patients taking a Biotin dose of up to 10 mg/day should refrain from taking Biotin for 24 hours before sample collection. Patient taking a Biotin dose of >10 mg/day should consult with their physician or the laboratory before the blood draw. Performed By: #### 3 024-7 #### EMANUEL FLOR ([id number]) [facility] ([facility]) [address] [place] [address] 89784 Bilirubin (U) [Mass/Vol] Negative Normal NEGATIVE [facility] Comment on above: Order Comment: Thyro xine Free testing is performed using different testing methodology at [facility] than at other [facility]. Direct result comparisons should only be made within the same method. Biotin can cause falsely elevated free T4 results. Patients taking a Biotin dose of up to 10 mg/day should refrain from taking Biotin for 24 hours before sample collection. Patient taking a Biotin dose of >10 mg/day should consult with their physician or the laboratory before the blood draw. Performed By: #### 3 024-7 #### EMANUEL FLOR ([id number]) [facility] ([facility]) [address] [place] [address] 94961 Color (U) Yellow Normal Light-Yellow , Yellow, Dark-Yellow [facility] Comment on above: Order Comment: Thyro xine Free testing is performed using different testing methodology at [facility] than at other [facility]. Direct result comparisons should only be made within the same method. Biotin can cause falsely elevated free T4 results. Patients taking a Biotin dose of up to 10 mg/day should refrain from taking Biotin for 24 hours before sample collection. Patient taking a Biotin dose of >10 mg/day should consult with their physician or the laboratory before the blood draw. Performed By: #### 3 024-7 #### EMANUEL FLOR ([id number]) [facility] ([facility]) [address] [place] [address] 95941 Glucose Auto test strip (U) [Mass/Vol] OVER (4+) Abnormal Normal [facility] Comment on above: Order Comment: Thyro xine Free testing is performed using different testing methodology at [facility] than at other [facility]. Direct result comparisons should only be made within the same method. Biotin can cause falsely elevated free T4 results. Patients taking a Biotin dose of up to 10 mg/day should refrain from taking Biotin for 24 hours before sample collection. Patient taking a Biotin dose of >10 mg/day should consult with their physician or the laboratory before the blood draw. Performed By: #### 3 024-7 #### EMANUEL FLOR ([id number]) [facility] ([facility]) [address] [place], [place] [phone] Ketones (U) [Mass/Vol] Negative Normal NEGATIVE [facility] Comment on above: Order Comment: Thyro xine Free testing is performed using different testing methodology at [facility] than at other [facility]. Direct result comparisons should only be made within the same method. Biotin can cause falsely elevated free T4 results. Patients taking a Biotin dose of up to 10 mg/day should refrain from taking Biotin for 24 hours before sample collection. Patient taking a Biotin dose of >10 mg/day should consult with their physician or the laboratory before the blood draw. Performed By: #### 3 024-7 #### EMANUEL FLOR ([id number]) [facility] ([facility]) [address] [place], [place] [phone] Leukocyte esterase Auto test strip Ql (U) Negative Normal NEGATIVE [facility] Comment on above: Order Comment: Thyro xine Free testing is performed using different testing methodology at [facility] than at other [facility]. Direct result comparisons should only be made within the same method. Biotin can cause falsely elevated free T4 results. Patients taking a Biotin dose of up to 10 mg/day should refrain from taking Biotin for 24 hours before sample collection. Patient taking a Biotin dose of >10 mg/day should consult with their physician or the laboratory before the blood draw. Performed By: #### 3 024-7 #### EMANUEL FLOR ([id number]) [facility] ([facility]) [address] [place] [address] 96976 Nitrite Auto test strip Ql (U) Negative Normal NEGATIVE [facility] Comment on above: Order Comment: Thyro xine Free testing is performed using different testing methodology at [facility] than at other [facility]. Direct result comparisons should only be made within the same method. Biotin can cause falsely elevated free T4 results. Patients taking a Biotin dose of up to 10 mg/day should refrain from taking Biotin for 24 hours before sample collection. Patient taking a Biotin dose of >10 mg/day should consult with their physician or the laboratory before the blood draw. Performed By: #### 3 024-7 #### EMANUEL FLOR ([id number]) [facility] ([facility]) [address] [place] [address] 00408 pH (U) 6.0 [pH] Normal 5.0, 5.5, 6.0, 6.5, 7.0, 7.5, 8.0 [facility] Comment on above: Order Comment: Thyro xine Free testing is performed using different testing methodology at [facility] than at other [facility]. Direct result comparisons should only be made within the same method. Biotin can cause falsely elevated free T4 results. Patients taking a Biotin dose of up to 10 mg/day should refrain from taking Biotin for 24 hours before sample collection. Patient taking a Biotin dose of >10 mg/day should consult with their physician or the laboratory before the blood draw. Performed By: #### 3 024-7 #### EMANUEL FLOR ([id number]) [facility] ([facility]) [address] [place] [address] 31204 Protein (U) [Mass/Vol] 20 (TRACE) Normal NEGAT ALLEN, 10 (TRACE), 20 (TRACE) [facility] Comment on above: Order Comment: Thyro xine Free testing is performed using different testing methodology at [facility] than at other [facility]. Direct result comparisons should only be made within the same method. Biotin can cause falsely elevated free T4 results. Patients taking a Biotin dose of up to 10 mg/day should refrain from taking Biotin for 24 hours before sample collection. Patient taking a Biotin dose of >10 mg/day should consult with their physician or the laboratory before the blood draw. Performed By: #### 3 024-7 #### EMANUEL FLOR ([id number]) [facility] ([facility]) [address] [place] [address] 79911 RBC (U) [#/Vol] Negative Normal NEGATIVE [facility] Comment on above: Order Comment: Thyro xine Free testing is performed using different testing methodology at [facility] than at other [facility]. Direct result comparisons should only be made within the same method. Biotin can cause falsely elevated free T4 results. Patients taking a Biotin dose of up to 10 mg/day should refrain from taking Biotin for 24 hours before sample collection. Patient taking a Biotin dose of >10 mg/day should consult with their physician or the laboratory before the blood draw. Performed By: #### 3 024-7 #### EMANUEL FLOR ([id number]) [facility] ([facility]) [address] [place] [address] 34247 RBC Auto (Urine sed) [#/Area] 1-2 Normal NONE, 1-2, 3-5 [facility] Comment on above: Performed By: #### 3 024-7 #### EMANUEL FLOR ([id number]) [facility] ([facility]) [address] [place] [address] 53267 Specific gravity (U) [Rel density] 1.020 Normal 1.005-1.035 [facility] Comment on above: Order Comment: Thyro xine Free testing is performed using different testing methodology at [facility] than at other [facility]. Direct result comparisons should only be made within the same method. Biotin can cause falsely elevated free T4 results. Patients taking a Biotin dose of up to 10 mg/day should refrain from taking Biotin for 24 hours before sample collection. Patient taking a Biotin dose of >10 mg/day should consult with their physician or the laboratory before the blood draw. Result Comment: Sudhir ected result: Previously reported as 1.028 (reference range: 1.005-1.035) on 12/17/2024 at 1509 EDT. Performed By: #### 3 024-7 #### EMANUEL FLOR ([id number]) [facility] ([facility]) [address] [place] [address] 73958 Urobilinogen (U) [Mass/Vol] Normal Normal Normal [facility] Comment on above: Order Comment: Thyro xine Free testing is performed using different testing methodology at [facility] than at other [facility]. Direct result comparisons should only be made within the same method. Biotin can cause falsely elevated free T4 results. Patients taking a Biotin dose of up to 10 mg/day should refrain from taking Biotin for 24 hours before sample collection. Patient taking a Biotin dose of >10 mg/day should consult with their physician or the laboratory before the blood draw. Performed By: #### 3 024-7 #### EMANUEL FLOR ([id number]) [facility] ([facility]) [facility] [place] [address] WBC Auto (Urine sed) [#/Area] NONE Normal 1-5, NONE [facility] Comment on above: Performed By: #### 3 024-7 #### EMANUEL FLOR ([id number]) [facility] ([facility]) [address] [place] [address] 11089 XR CHEST 1 VIEWon 12-17-2024 XR CHEST 1 VIEW Interpreted By: Ludin Nguyen, STUDY: XR CHEST 1 VIEW; 12/17/2024 1:27 pm INDICATION: Signs/Symptoms:dizzine ss COMPARISON: September 2024. ACCESSION NUMBER(S): [id number] ORDERING CLINICIAN: SAMMY ANDREW FINDINGS: The study is limited due to rotation/respiratory motion. 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 Previously seen esophageal stent is no longer visualized. Increased retrocardiac density is possibly due to dilated esophagus. The cardiac silhouette appears enlarged, exaggerated by the technique. There is no pneumothorax, confluent infiltrates or significant effusion. Degenerative changes involve the spine.. IMPRESSION: Limited study. Previously seen esophageal stent is not visualized, however there is probable dilatation of the distal esophagus; correlate clinically. Cardiomegaly again present without acute infiltrates. Signed by: Ludin Nguyen 12/17/2024 2:07 PM Dictation workstation: [id number] Normal [facility] XR Chest Single viewon 12-17 Limited study. Previously seen esophageal stent is not visualized, however there is probable dilatation of the distal esophagus; correlate clinically. Cardiomegaly again present without acute infiltrates. Signed by: Ludin Nguyen 12/17/2024 2:07 PM Dictation workstation: [id number] MMODAL Interpreted By: Ludin Nguyen, STUDY: XR CHEST 1 VIEW; 12/17/2024 1:27 pm INDICATION: Signs/Symptoms:dizzine ss COMPARISON: September 2024. ACCESSION NUMBER(S): [id number] ORDERING CLINICIAN: SAMMY ANDREW FINDINGS: The study is limited due to rotation/respiratory motion. 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 Previously seen esophageal stent is no longer visualized. Increased retrocardiac density is possibly due to dilated esophagus. The cardiac silhouette appears enlarged, exaggerated by the technique. There is no pneumothorax, confluent infiltrates or significant effusion. Degenerative changes involve the spine.. MMODAL Ludin Nguyen MD - 12/17/2024 Interpreted By: Ludin Nguyen, STUDY: XR CHEST 1 VIEW; 12/17/2024 1:27 pm INDICATION: Signs/Symptoms:dizzine ss COMPARISON: September 2024. ACCESSION NUMBER(S): [id number] ORDERING CLINICIAN: SAMMY ANDREW FINDINGS: The study is limited due to rotation/respiratory motion. 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 Previously seen esophageal stent is no longer visualized. Increased retrocardiac density is possibly due to dilated esophagus. The cardiac silhouette appears enlarged, exaggerated by the technique. There is no pneumothorax, confluent infiltrates or significant effusion. Degenerative changes involve the spine.. IMPRESSION: Limited study. Previously seen esophageal stent is not visualized, however there is probable dilatation of the distal esophagus; correlate clinically. Cardiomegaly again present without acute infiltrates. Signed by: Ludin Nguyen 12/17/2024 2:07 PM Dictation workstation: [id number] [facility] Work Phone: Radiology Study observation (narrative) [facility] Work Phone: XR Chest Single viewOrdered By: Ludin Nguyen on 12-17-2024 [facility] Work Phone: aPTTon 12-17-2024 aPTT Coag (PPP) [Time] 34 s Un [facility] aPTT Coag (PPP) [Time]on Interpretation and review of laboratory results Normal [facility] The APTT is no longe r used for monitoring Unfractionated Heparin Therapy. For monitoring Heparin Therapy, use the Heparin Assay. [facility] US SOFT TISSUE NECK OR HEADo n 12-02-2024 US SOFT TISSUE NECK OR HEAD EXAMINATION: US SOFT TISSUE NECK OR HEAD HISTORY: ORDERING SYSTEM PROVIDED HISTORY: f/u on indeterminate lymph nodes reported in 07/2024., TECHNOLOGIST PROVIDED HISTORY: Illness/Other Reason for exam: f/u on indeterminate lymph nodes reported in 07/2024. Cancer History: no Surgery, RadiationHistory: no Encounter Type: Subsequent/Follow-up Additional signs and symptoms: none ORDERING SYSTEM PROVIDED DIAGNOSIS CODES: R59.9 Lymph node enlargement COMPARISON: 07/10/2024 ultrasound of the neck and thyroid. TECHNIQUE: Ultrasound of the neck. FINDINGS: No enlarged or suspicious cervical lymph nodes identified. IMPRESSION: No enlarged or suspicious cervical lymph nodes identified. [facility] Workstation ID: [id number] Dictated by: TANIA SALTER on SunDec 03, 2024 12:37:22 PM EDT Transcribed by: ARABELLA VAIL on SunDec 03, 2024 12:45:38 PM EDT Finalized by: TANIA SALTER on SunDec 03, 2024 9:16:41 PM EDT Normal [facility] Comment on above: Order Comment: Injur y/Trauma or Illness?:Illness/Other How long have you had these symptoms (acute/chronic)?:Acute Reason for exam?:f/u on indeterminate lymph nodes reported in 07/2024. History of cancer?:no Surgeries, chemotherapy, or radiation?:no Type of Exam?:Subsequent/Follow-up Additional signs and symptoms?:none Basic Metabolic Profile (BMP )on 11-13-2024 BUN Normal 10-18 [facility] Comment on above: Result Comment: Canc elled via OM: Order cancelled - Patient discharged Performed By: #### L 500.2500, L100.0100 ####[facility] [address] [place], [address] BUN/CRE Normal - [facility] Comment on above: Result Comment: Canc elled via OM: Order cancelled - Patient discharged Performed By: #### L 500.2500, L100.0100 ####[facility] [address] [place], [address] Calcium Normal 7.6-11.0 [facility] Comment on above: Result Comment: Canc elled via OM: Order cancelled - Patient discharged Performed By: #### L 500.2500, L100.0100 ####[facility] [address] [place], [address] CL Normal 98-108 [facility] Comment on above: Result Comment: Canc elled via OM: Order cancelled - Patient discharged Performed By: #### L 500.2500, L100.0100 ####[facility] [address] [place], [address] CO2 Normal 21.0-32.0 [facility] Comment on above: Result Comment: Canc elled via OM: Order cancelled - Patient discharged Performed By: #### L 500.2500, L100.0100 ####[facility] [address] [place], [address] CREAT,SERUM Normal 0.70-1.20 [facility] Comment on above: Result Comment: Canc elled via OM: Order cancelled - Patient discharged Performed By: #### L 500.2500, L100.0100 ####[facility] [address] [place], [address] eGFR Normal >60 [facility] Comment on above: Result Comment: Canc elled via OM: Order cancelled - Patient discharged Performed By: #### L 500.2500, L100.0100 ####[facility] [address] [place], [address] GAP Normal 5-15 [facility] Comment on above: Result Comment: Canc elled via OM: Order cancelled - Patient discharged Performed By: #### L 500.2500, L100.0100 ####[facility] [address] [place], [address] GLU Normal 70-99 [facility] Comment on above: Result Comment: Canc elled via OM: Order cancelled - Patient discharged Performed By: #### L 500.2500, L100.0100 ####[facility] [address] [place], [address] Potassium Normal 3.3-5.1 [facility] Comment on above: Result Comment: Canc elled via OM: Order cancelled - Patient discharged Performed By: #### L 500.2500, L100.0100 ####[facility] [address] [place], [address] Basic Metabolic Profile (BMP) Normal 133-145 [facility] Comment on above: Result Comment: Canc elled via OM: Order cancelled - Patient discharged Performed By: #### L 500.2500, L100.0100 ####[facility] [address] [place], [address] CBC W/Diff, Automatedon 05-1 Absolute Neut Normal 2.0-7.7 [facility] Comment on above: Result Comment: Canc elled via OM: Order cancelled - Patient discharged Performed By: #### L 501.080 #### [facility] [address] [place], [address] HCT Normal 40-54 [facility] Comment on above: Result Comment: Canc elled via OM: Order cancelled - Patient discharged Performed By: #### L 501.080 #### [facility] [address] [place], [address] HGB Normal 13.0-16.5 [facility] Comment on above: Result Comment: Canc elled via OM: Order cancelled - Patient discharged Performed By: #### L 501.080 #### [facility] [address] [place], [address] MCH Normal 27.0-32.0 [facility] Comment on above: Result Comment: Canc elled via OM: Order cancelled - Patient discharged Performed By: #### L 501.080 #### [facility] [address] [place], [address] MCHC Normal 32-36 [facility] Comment on above: Result Comment: Canc elled via OM: Order cancelled - Patient discharged Performed By: #### L 501.080 #### [facility] [address] [place], [address] MCV Normal 80-94 [facility] Comment on above: Result Comment: Canc elled via OM: Order cancelled - Patient discharged Performed By: #### L 501.080 #### [facility] [address] [place], [address] NEUT% Normal 47-70 [facility] Comment on above: Result Comment: Canc elled via OM: Order cancelled - Patient discharged Performed By: #### L 501.080 #### [facility] [address] [place], [address] PLT Normal 150-450 [facility] Comment on above: Result Comment: Canc elled via OM: Order cancelled - Patient discharged Performed By: #### L 501.080 #### [facility] [address] [place], [address] RBC Normal 4.6-6.2 [facility] Comment on above: Result Comment: Canc elled via OM: Order cancelled - Patient discharged Performed By: #### L 501.080 #### [facility] [address] [place], [address] RDW CV Normal 11.6-14.6 [facility] Comment on above: Result Comment: Canc elled via OM: Order cancelled - Patient discharged Performed By: #### L 501.080 #### [facility] [address] [place], [address] RDW SD Normal 35.1-43.9 [facility] Comment on above: Result Comment: Canc elled via OM: Order cancelled - Patient discharged Performed By: #### L 501.080 #### [facility] [address] [place], [address] WBC Normal 4.4-11.0 [facility] Comment on above: Result Comment: Canc elled via OM: Order cancelled - Patient discharged Performed By: #### L 501.080 #### [facility] [address] [place], [address] ECG 12 lead (Clinic Performe d)on 11-11-2024 Biventricular paced rhythm rhythm with HR of 72bpm, QRS 168ms, QT 460ms and [id number] *Please refer to scanned ECG for final report* [facility] Work Phone: Basic Metabolic Profile (BMP )on 11-06-2024 BUN Normal 4-19 [facility] Comment on above: Result Comment: Canc elled via OM: Order cancelled - Patient discharged Performed By: #### L 500.2500, L100.0100 #### [facility] [address] [place], [address] BUN/CRE Normal 10-20 [facility] Comment on above: Result Comment: Canc elled via OM: Order cancelled - Patient discharged Performed By: #### L 500.2500, L100.0100 #### [facility] [address] [place], [address] Calcium Normal 7.6-11.0 [facility] Comment on above: Result Comment: Canc elled via OM: Order cancelled - Patient discharged Performed By: #### L 500.2500, L100.0100 #### [facility] [address] [place], [address] CL Normal 98-108 [facility] Comment on above: Result Comment: Canc elled via OM: Order cancelled - Patient discharged Performed By: #### L 500.2500, L100.0100 #### [facility] [address] [place], [address] CO2 Normal 21.0-32.0 [facility] Comment on above: Result Comment: Canc elled via OM: Order cancelled - Patient discharged Performed By: #### L 500.2500, L100.0100 #### [facility] [address] [place], [address] CREAT,SERUM Normal 0.70-1.20 [facility] Comment on above: Result Comment: Canc elled via OM: Order cancelled - Patient discharged Performed By: #### L 500.2500, L100.0100 #### [facility] [address] [place], [address] eGFR Normal >60 [facility] Comment on above: Result Comment: Canc elled via OM: Order cancelled - Patient discharged Performed By: #### L 500.2500, L100.0100 #### [facility] [address] [place], [address] GAP Normal 5-15 [facility] Comment on above: Result Comment: Canc elled via OM: Order cancelled - Patient discharged Performed By: #### L 500.2500, L100.0100 #### [facility] [address] [place], [address] GLU Normal 70-99 [facility] Comment on above: Result Comment: Canc elled via OM: Order cancelled - Patient discharged Performed By: #### L 500.2500, L100.0100 #### [facility] [address] [place], [address] Potassium Normal 3.3-5.1 [facility] Comment on above: Result Comment: Canc elled via OM: Order cancelled - Patient discharged Performed By: #### L 500.2500, L100.0100 #### [facility] [address] [place], [address] Basic Metabolic Profile (BMP) Normal 133-145 [facility] Comment on above: Result Comment: Canc elled via OM: Order cancelled - Patient discharged Performed By: #### L 500.2500, L100.0100 #### [facility] [address] [place], [address] CBC W/Diff, Automatedon 05-0 8-2024 Absolute Neut Normal 2.0-7.7 [facility] Comment on above: Result Comment: Canc elled via OM: Order cancelled - Patient discharged Performed By: #### L 500.2500, L100.0100 ####[facility] [address] [place], [address] HCT Normal 40-54 [facility] Comment on above: Result Comment: Canc elled via OM: Order cancelled - Patient discharged Performed By: #### L 500.2500, L100.0100 ####[facility] [address] [place], [address] HGB Normal 13.0-16.5 [facility] Comment on above: Result Comment: Canc elled via OM: Order cancelled - Patient discharged Performed By: #### L 500.2500, L100.0100 ####[facility] [address] [place], [address] MCH Normal 27.0-32.0 [facility] Comment on above: Result Comment: Canc elled via OM: Order cancelled - Patient discharged Performed By: #### L 500.2500, L100.0100 ####[facility] [address] [place], [address] MCHC Normal 32-36 [facility] Comment on above: Result Comment: Canc elled via OM: Order cancelled - Patient discharged Performed By: #### L 500.2500, L100.0100 ####[facility] [address] [place], [address] MCV Normal 80-94 [facility] Comment on above: Result Comment: Canc elled via OM: Order cancelled - Patient discharged Performed By: #### L 500.2500, L100.0100 ####[facility] [address] [place], [address] NEUT% Normal 47-70 [facility] Comment on above: Result Comment: Canc elled via OM: Order cancelled - Patient discharged Performed By: #### L 500.2500, L100.0100 ####[facility] [address] [place], [address] PLT Normal 150-450 [facility] Comment on above: Result Comment: Canc elled via OM: Order cancelled - Patient discharged Performed By: #### L 500.2500, L100.0100 ####[facility] [address] [place] [place], [address] RBC Normal 4.6-6.2 [facility] Comment on above: Result Comment: Canc elled via OM: Order cancelled - Patient discharged Performed By: #### L 500.2500, L100.0100 ####[facility] [address] [place], [address] RDW CV Normal 11.6-14.6 [facility] Comment on above: Result Comment: Canc elled via OM: Order cancelled - Patient discharged Performed By: #### L 500.2500, L100.0100 ####[facility] [address] [place], [address] RDW SD Normal 35.1-43.9 [facility] Comment on above: Result Comment: Canc elled via OM: Order cancelled - Patient discharged Performed By: #### L 500.2500, L100.0100 ####[facility] [address] [place], [address] WBC Normal 4.4-11.0 [facility] Comment on above: Result Comment: Canc elled via OM: Order cancelled - Patient discharged Performed By: #### L 500.2500, L100.0100 ####[facility] [address] [place], [address] Basic Metabolic Profile (BMP )on 10-30-2024 BUN Normal 4-19 [facility] Comment on above: Result Comment: Canc elled via OM: Order cancelled - Patient discharged Performed By: #### L 100.0100, L500.2500 ####[facility] [address] [place], [address] BUN/CRE Normal 10-20 [facility] Comment on above: Result Comment: Canc elled via OM: Order cancelled - Patient discharged Performed By: #### L 100.0100, L500.2500 ####[facility] [address] [place], [address] Calcium Normal 7.6-11.0 [facility] Comment on above: Result Comment: Canc elled via OM: Order cancelled - Patient discharged Performed By: #### L 100.0100, L500.2500 ####[facility] [address] [place], [address] CL Normal 98-108 [facility] Comment on above: Result Comment: Canc elled via OM: Order cancelled - Patient discharged Performed By: #### L 100.0100, L500.2500 ####[facility] [address] [place], [address] CO2 Normal 21.0-32.0 [facility] Comment on above: Result Comment: Canc elled via OM: Order cancelled - Patient discharged Performed By: #### L 100.0100, L500.2500 ####[facility] [address] [place], [address] CREAT,SERUM Normal 0.70-1.20 [facility] Comment on above: Result Comment: Canc elled via OM: Order cancelled - Patient discharged Performed By: #### L 100.0100, L500.2500 ####[facility] [address] [place], [address] eGFR Normal >60 [facility] Comment on above: Result Comment: Canc elled via OM: Order cancelled - Patient discharged Performed By: #### L 100.0100, L500.2500 ####[facility] [address] [place], [address] GAP Normal 5-15 [facility] Comment on above: Result Comment: Canc elled via OM: Order cancelled - Patient discharged Performed By: #### L 100.0100, L500.2500 ####[facility] [address] [place], [address] GLU Normal 70-99 [facility] Comment on above: Result Comment: Canc elled via OM: Order cancelled - Patient discharged Performed By: #### L 100.0100, L500.2500 ####[facility] [address] [place], [address] Potassium Normal 3.3-5.1 [facility] Comment on above: Result Comment: Canc elled via OM: Order cancelled - Patient discharged Performed By: #### L 100.0100, L500.2500 ####[facility] [address] [place], [address] Basic Metabolic Profile (BMP) Normal 133-145 [facility] Comment on above: Result Comment: Canc elled via OM: Order cancelled - Patient discharged Performed By: #### L 100.0100, L500.2500 ####[facility] [address] [place], [address] CBC (INCLUDES DIFF/PLT)on Basophils (Bld) [#/Vol] 0.035 10*3/uL Normal 0-200 [facility] Comment on above: Performed By: #### 8 66, 859, 867 #### [facility] of [place] [address], [address] [place], [place] [address] [employer]: Camilo Sylvester MD #### [phone], [phone] #### [facility]/[address] [place], [place] [employer] Spinner: Benjamin Reis M.D.,PhD Basophils/100 WBC (Bld) 0.3 % Normal [facility] Comment on above: Performed By: #### 8 66, 859, 867 #### [facility] of [address], [address] [place], [place] [address] [employer]: Camilo Sylvester MD #### [phone], [phone] #### [facility]/[address] [place] [employer]: Benjamin Reis M.D.,PhD Eosinophils (Bld) [#/Vol] 0.219 10*3/uL Normal 15-500 [facility] Comment on above: Performed By: #### 8 66, 859, 867 #### [facility] of [address], [address] [place], [place] [address] [employer]: Camilo Sylvester MD #### [phone], [phone] #### [facility]/[address] [place] [employer]inner: Benjamin Reis M.D.,PhD Eosinophils/100 WBC (Bld) 1.9 % Normal [facility] Comment on above: Performed By: #### 8 66, 859, 867 #### [facility] of [address], [address] [place], [place] [address] [employer]: Camilo Sylvester MD #### [phone], [phone] #### [facility]/[address] [place] [employer]: Benjamin Reis M.D.,PhD Erythrocyte distribution width (RBC) [Ratio] 13.5 % Normal 11.0-15.0 [facility] Comment on above: Performed By: #### 8 , 85, 867 #### [facility] of [address], [address] [place] [address] [employer]: aCmilo Sylvester MD #### [phone], [phone] #### [facility]/[address] [place], [place] [employer]inner: Benjamin Reis M.D.,PhD Hematocrit (Bld) [Volume fraction] 44.9 % Normal 38.5-50.0 [facility] Comment on above: Performed By: #### 8 , , 867 #### [place] [address] [employer]: Camilo Sylvester MD #### [phone], [phone] #### [facility]/[address] [place] [employer]inner: Benjamin Reis M.D.,PhD Hemoglobin (Bld) [Mass/Vol] 14.9 g/dL Normal 13.2-17.1 [facility] Comment on above: Performed By: #### 8 , , 867 #### [place] [address] [employer]: Camilo Sylvester MD #### [phone], [phone] #### [facility]/[address] [place] [employer]: Benjamin Reis M.D.,PhD Lymphocytes (Bld) [#/Vol] 1.771 10*3/uL Normal 850-3900 [facility] Comment on above: Performed By: #### 8 , , 867 #### [facility] of [address] [employer]: Camilo Sylvester MD #### [phone], [phone] #### [facility]/[address] [place] [employer] Spinner: Benjamin Reis M.D.,PhD Lymphocytes/100 WBC (Bld) 15.4 % Normal [facility] Comment on above: Performed By: #### 8 , 85, 867 #### [facility] [address], [address] [place], [place] [address] [employer]: Camilo Sylvester MD #### [phone], [phone] #### [facility]/[address] [place] [employer] Spinner: Benjamin Reis M.D.,PhD MCH (RBC) [Entitic mass] 32.3 pg Normal 27.0-33.0 [facility] Comment on above: Performed By: #### 8 , , 867 #### [facility] [address], [address] [place] [address] [employer] Spinner: Camilo Sylvester MD #### [phone], [phone] #### [facility]/[address] [place] [employer]inner: Benjamin Reis M.D.,PhD MCHC (RBC) [Mass/Vol] 33.2 g/dL Normal 32.0-36.[address] [facility] Comment on above: Result Comment: For adults, a slight decrease in the calculated MCHC value (in the range of 30 to 32 g/dL) is most likely not clinically significant; however, it should be interpreted with caution in correlation with other red cell parameters and the patient's clinical condition. Performed By: #### 8 , 85, 867 #### [facility] [address], [address] [place], [place] [address] [employer]: Camilo Sylvester MD #### [phone], [phone] #### [facility]/[place] [id number] [place] [address] [employer]: Benjamin Reis M.D.,PhD MCV (RBC) [Entitic vol] 97.2 fL Normal 80.0-100.0 [facility] Comment on above: Performed By: #### 8 66, 859, 867 #### [facility] of [address], [address] [place], [place] [address] [employer]: Camilo Sylvester MD #### [phone], [phone] #### [facility]/[address] [place] [employer]inner: Benjamin Reis M.D.,PhD Monocytes (Bld) [#/Vol] 0.782 10*3/uL Normal 200-950 [facility] Comment on above: Performed By: #### 8 66, 85, 867 #### [place] [address] [employer]: Camilo Sylvester MD #### [phone], [phone] #### [facility]/[address] [place] [employer]inner: Benjamin Reis M.D.,PhD Monocytes/100 WBC (Bld) 6.8 % Normal [facility] Comment on above: Performed By: #### 8 66, 859, 867 #### [place] [address] [employer]: Camilo Sylvester MD #### [phone], [phone] #### [facility]/[address] [place] [employer]inner: Benjamin Reis M.D.,PhD Neutrophils (Bld) [#/Vol] 8.694 10*3/uL High 7041-9907 [facility] Comment on above: Performed By: #### 8 66, 859, 867 #### [place] [address] [employer]: Camilo Sylvester MD #### [id number], [phone] #### [facility]/[address] [place] [employer] Spinner: Benjamin Reis M.D.,PhD Neutrophils/100 WBC (Bld) 75.6 % Normal [facility] Comment on above: Performed By: #### 8 66, 859, 867 #### [facility] of [address], [address] [place], [place] [address] [employer]: Camilo Sylvester MD #### [phone], [phone] #### [facility]/[address] [place] [employer]inner: Benjamin Reis M.D.,PhD Platelet mean volume (Bld) [Entitic vol] 10.7 fL Normal 7.5-12.5 [facility] Comment on above: Performed By: #### 8 , 85, 867 #### [facility] of [address], [address] [place], [place] [address] [employer]: Camilo Sylvester MD #### [id number], [phone] #### [facility]/[address] [place] [employer]inner: Benjamin Reis M.D.,PhD Platelets (Bld) [#/Vol] 397 10*3/uL Normal 140-400 [facility] Comment on above: Performed By: #### 8 , 859, 867 #### [facility] of [address], [address] [place], [place] [address] [employer]inner: Camilo Sylvester MD #### [id number], [phone] #### [facility]/[address] [place] [employer]inner: Benjamin Reis M.D.,PhD RBC (Bld) [#/Vol] 4.62 10*6/uL Normal 4.20-5.80 [facility] Comment on above: Performed By: #### 8 , 859, 867 #### [facility] [address], [address] [place] [address] [employer]: Camilo Sylvester MD #### [phone], [phone] #### [facility]/[address] [place] [employer]inner: Benjamin Reis M.D.,PhD WBC (Bld) [#/Vol] 11.5 10*3/uL High 3.8-10.8 [facility] Comment on above: Performed By: #### 8 66, 859, 867 #### [facility] [address], [address] [place] [address] [employer]: Camilo Sylvester MD #### [phone], [phone] #### [facility]/[address] [place] [employer] Spinner: Benjamin Reis M.D.,PhD CBC W/Diff, Automatedon 05-0 Absolute Neut Normal 2.0-7.7 [facility] Comment on above: Result Comment: Canc elled via OM: Order cancelled - Patient discharged Performed By: #### L 100.0100, L500.2500 ####[facility] [address] [place], [address] HCT Normal 40-54 [facility] Comment on above: Result Comment: Canc elled via OM: Order cancelled - Patient discharged Performed By: #### L 100.0100, L500.2500 ####[facility] [address] [place], [address] HGB Normal 13.0-16.5 [facility] Comment on above: Result Comment: Canc elled via OM: Order cancelled - Patient discharged Performed By: #### L 100.0100, L500.2500 ####[facility] [address] [place], [address] MCH Normal 27.0-32.0 [facility] Comment on above: Result Comment: Canc elled via OM: Order cancelled - Patient discharged Performed By: #### L 100.0100, L500.2500 ####[facility] [address] [place], [address] MCHC Normal 32-36 [facility] Comment on above: Result Comment: Canc elled via OM: Order cancelled - Patient discharged Performed By: #### L 100.0100, L500.2500 ####[facility] [address] [place] [place], [address] MCV Normal 80-94 [facility] Comment on above: Result Comment: Canc elled via OM: Order cancelled - Patient discharged Performed By: #### L 100.0100, L500.2500 ####[facility] [address] [place] [place], [address] NEUT% Normal 47-70 [facility] Comment on above: Result Comment: Canc elled via OM: Order cancelled - Patient discharged Performed By: #### L 100.0100, L500.2500 ####[facility] [address] [place], [address] PLT Normal 150-450 [facility] Comment on above: Result Comment: Canc elled via OM: Order cancelled - Patient discharged Performed By: #### L 100.0100, L500.2500 ####[facility] [address] [place], [address] RBC Normal 4.6-6.2 [facility] Comment on above: Result Comment: Canc elled via OM: Order cancelled - Patient discharged Performed By: #### L 100.0100, L500.2500 ####[facility] [address] [place], [address] RDW CV Normal 11.6-14.6 [facility] Comment on above: Result Comment: Canc elled via OM: Order cancelled - Patient discharged Performed By: #### L 100.0100, L500.2500 ####[facility] [address] [place], [address] RDW SD Normal 35.1-43.9 [facility] Comment on above: Result Comment: Canc elled via OM: Order cancelled - Patient discharged Performed By: #### L 100.0100, L500.2500 ####[facility] [address] [place], [address] WBC Normal 4.4-11.0 [facility] Comment on above: Result Comment: Canc elled via OM: Order cancelled - Patient discharged Performed By: #### L 100.0100, L500.2500 ####[facility] [address] [place], [address] COMPREHENSIVE METABOLIC PANE L W/ANION GAPon 10-30-2024 ALBUMIN Normal [facility] Comment on above: Order Comment: FASTI NG:NOFASTING: NO Performed By: #### 8 66, 859, 867 #### [facility] [address], [address] [place] [address] [employer] Sp[employer]: Camilo Sylvester MD #### [phone], [phone] #### [facility]/[address] [place], [place] [employer] Spinner: Benjamin Reis M.D.,PhD ALKALINE PHOSPHATASE Normal [facility] Comment on above: Order Comment: FASTI NG:NOFASTING: NO Performed By: #### 8 66, 859, 867 #### [facility] Diagnostics [facility] [address], [address] [place] [address] Rivet Spinner: Camilo Sylvester MD #### [phone], [phone] #### [facility]/[address] [place], [place] Rivet Spinner: Benjamin Reis M.D.,PhD ALT Normal [facility] Comment on above: Order Comment: FASTI NG:NOFASTING: NO Performed By: #### 8 66, 859, 867 #### [facility] of [address], [address] [place], [place] [id number] Rivet Spinner: Camilo Sylvester MD #### [phone], [phone] #### [facility]/[address] [place] Rivet Spinner: Benjamin Reis M.D.,PhD [facility] Normal [facility] Comment on above: Order Comment: FASTI NG:NOFASTING: NO Performed By: #### 8 66, 859, 867 #### [facility] [address], [address] [place] [address] Rivet Spinner: Camilo Sylvester MD #### [phone], [id number] #### [facility]/[address] [place] Rivet Spinner: Benjamin Reis M.D.,PhD BILIRUBIN, TOTAL Normal [facility] Comment on above: Order Comment: FASTI NG:NOFASTING: NO Performed By: #### 8 66, 859, 867 #### [facility] [address], [address] [place] [address] Rivet Spinner: Camilo Sylvester MD #### [id number], [phone] #### [facility]/[address] [place] Rivet Spinner: Benjamin Reis M.D.,PhD [place] Normal [facility] Comment on above: Order Comment: FASTI NG:NOFASTING: NO Performed By: #### 8 66, 859, 867 #### [facility] of [address], [address] [place], [place] [id number] Rivet Spinner: Camilo Sylvester MD #### [phone], [phone] #### [facility]/[place] [id number] [facility] [address] [place] Rivet Spinner: Benjamin Reis M.D.,PhD CARBON DIOXIDE Normal [facility] Comment on above: Order Comment: FASTI NG:NOFASTING: NO Performed By: #### 8 66, 859, 867 #### [facility] [address], [address] [place] [address] Rivet Spinner: Camilo Sylvester MD #### [phone], [phone] #### [facility]/[address] [place] Rivet Spinner: Benjamin Reis M.D.,PhD IBAPAH Normal [facility] Comment on above: Order Comment: FASTI NG:NOFASTING: NO Performed By: #### 8 66, 859, 867 #### [facility] [address] Rivet Spinner: Camilo Sylvester MD #### [id number], [id number] #### [facility]/[address] [place] Rivet Spinner: Benjamin Reis M.D.,PhD CREATININE Normal [facility] Comment on above: Order Comment: FASTI NG:NOFASTING: NO Performed By: #### 8 66, 859, 867 #### [facility] [place] [address] Rivet Spinner: Camilo Sylvester MD #### [id number], [phone] #### [facility]/[address] [place] Rivet Spinner: Benjamin Reis M.D.,PhD [facility] Normal [facility] Comment on above: Order Comment: FASTI NG:NOFASTING: NO Performed By: #### 8 66, 859, 867 #### [facility] [address] Rivet Spinner: Camilo Sylvester MD #### [id number], [phone] #### [facility]/[address] [place] Rivet Spinner: Benjamin Reis M.D.,PhD ELECTROLYTE BALANCE Normal [facility] Comment on above: Order Comment: FASTI NG:NOFASTING: NO Performed By: #### 8 66, 859, 867 #### [facility] of [address], [address] [place], [place] [id number] Rivet Spinner: Camilo Sylvester MD #### [phone], [phone] #### [facility]/[address] [place], [place] Rivet Spinner: Benjamin Reis M.D.,PhD GLUCOSE Normal [facility] Comment on above: Order Comment: FASTI NG:NOFASTING: NO Performed By: #### 8 66, 859, 867 #### [facility] of [address] Rivet Spinner: Camilo Sylvester MD #### [phone], [phone] #### [facility]/[address] [place] Rivet Spinner: Benjamin Reis M.D.,PhD POTASSIUM Normal [facility] Comment on above: Order Comment: FASTI NG:NOFASTING: NO Performed By: #### 8 66, 859, 867 #### [facility] [address] Rivet Spinner: Camilo Sylvester MD #### [phone], [phone] #### [facility]/[address] [place], [place] Rivet Spinner: Benjamin Reis M.D.,PhD PROTEIN, TOTAL Normal [facility] Comment on above: Order Comment: FASTI NG:NOFASTING: NO Performed By: #### 8 66, 859, 867 #### [facility] [address], [address] [place], [place] [id number] Rivet Spinner: Camilo Sylvester MD #### [phone], [phone] #### [facility]/[address] [place] Rivet Spinner: Benjamin Reis M.D.,PhD SODIUM Normal [facility] Comment on above: Order Comment: FASTI NG:NOFASTING: NO Performed By: #### 8 66, 859, 867 #### [facility] of [address], [address] [place], [place] [id number] Rivet Spinner: Camilo Sylvester MD #### [phone], [phone] #### [facility]/[address] [place], [place] Rivet Spinner: Benjamin Reis M.D.,PhD UREA NITROGEN (BUN) Normal [facility] Comment on above: Order Comment: FASTI NG:NOFASTING: NO Performed By: #### 8 66, 859, 867 #### [facility] of [address], [address] [place] [address] Rivet Spinner: Camilo Sylvester MD #### [phone], [phone] #### [facility]/[address] [place] Rivet Spinner: Benjamin Reis M.D.,PhD HEMOGLOBIN A1c WITH eAGon eAG (mg/dL) Normal [facility] Comment on above: Performed By: #### 8 66, 859, 867 #### [facility] of [place] [address] , [address] [place] [address] Rivet Spinner: Camilo Sylvester MD #### [phone], [phone] #### [facility]/[address] [place] Rivet Spinner: Benjamin Reis M.D.,PhD eAG (mmol/L) Normal [facility] Comment on above: Performed By: #### 8 66, 859, 867 #### [facility] of [address], [address] [place] [address] Rivet Spinner: Camilo Sylvester MD #### [phone], 76093 #### [facility]/[address] [place] Rivet Spinner: Benjamin Reis M.D.,PhD HEMOGLOBIN A1c Normal [facility] Comment on above: Performed By: #### 8 66, 859, 867 #### [facility] of [address], [address] [place] [address] Rivet Spinner: Camilo Sylvester MD #### [phone], [phone] #### [facility]/[address] [place] Rivet Spinner: Benjamin Reis M.D.,PhD T4, FREEon 10-30-2024 T4, FREE Normal [facility] Comment on above: Performed By: #### 8 66, 859, 867 #### [facility] of [address], [address] [place] [address] Rivet Spinner: Camilo Sylvester MD #### [phone], [phone] #### [facility]/[address] [place] Rivet Spinner: Benjamin Reis M.D.,PhD TSH W/REFLEX TO FT4on 2024 TSH W/REFLEX TO FT4 4.84 mIU/L High 0.40-4.50 [facility] Comment on above: Performed By: #### 8 66, 859, 867 #### [facility] of [address], [address] [place] [address] Rivet Spinner: Camilo Sylvester MD #### [phone], 18370 #### [facility]/[place] [id number] [facility] [address] [place] Rivet Spinner: Benjamin Reis M.D.,PhD CT TRANSFER OF OUTSIDE FILMS on 10-28-2024 CT TRANSFER OF OUTSIDE FILMS Outside images for comparison or treatment purposes, not interpreted by Radiologists. [facility] Comment on above: Order Comment: Abdom en/Pelvis WITH Contrast 10/20/2024 7:28PM Study Interpretation of outs radha studyon 10-28-2024 Outside images for comparison or treatment purposes, not interpreted by Radiologists. IMAGING Outside images for comparison or treatment purposes, not interpreted by Radiologists. IMAGING Outside images for comparison or treatment purposes, not interpreted by Radiologists. IMAGING XR TRANSFER OF OUTSIDE FILMS on 10-28-2024 XR TRANSFER OF OUTSIDE FILMS Outside images for comparison or treatment purposes, not interpreted by Radiologists. [facility] Comment on above: Order Comment: Abdom en Single View 10/20/2024 8:10AM XR TRANSFER OF OUTSIDE FILMS Outside images for comparison or treatment purposes, not interpreted by Radiologists. [facility] Comment on above: Order Comment: Upper GI w/BA Swallow 10/20/2024 8:25 AM Basic Metabolic Profile (BMP )on 10-23-2024 BUN/CRE 14.2 RATIO Normal 10-20 [facility] Comment on above: Performed By: #### L 500.2500, L100.0100 ####[facility] [address] [place], [address] Calcium [Mass/Vol] 9.3 mg/dL Normal 7.6-11.0 [facility] Comment on above: Performed By: #### L 500.2500, L100.0100 ####[facility] [address] [place], [address] Chloride [Moles/Vol] 100 mmol/L Normal 98-108 [facility] Comment on above: Performed By: #### L 500.2500, L100.0100 ####[facility] [address] [place], [address] CO2 [Moles/Vol] 26.1 mmol/L Normal 21.0-32.0 [facility] Comment on above: Performed By: #### L 500.2500, L100.0100 ####[facility] [address] [place], [address] Creatinine [Mass/Vol] 0.86 mg/dL Normal 0.70-1.20 [facility] Comment on above: Performed By: #### L 500.2500, L100.0100 ####[facility] [address] [place], [address] ECRCL 78.32 ml/min Normal 50-250 [facility] Comment on above: Performed By: #### L 500.2500, L100.0100 ####[facility] [address] [place], [address] GAP 11 Normal 5-15 [facility] Comment on above: Performed By: #### L 500.2500, L100.0100 ####[facility] [address] [place], [address] GFR/1.73 sq M.predicted among non-blacks MDRD (S/P/Bld) [Vol rate/Area] 87 mL/min/{1.73_m2} Normal >60 [facility] Comment on above: Result Comment: mL/m in/1.73m2 CKD-EPI Creatinine Equation (2020) Performed By: #### L 500.2500, L100.0100 ####[facility] [address] [place], [address] Glucose [Mass/Vol] 142 mg/dL High 70-99 [facility] Comment on above: Performed By: #### L 500.2500, L100.0100 ####[facility] [address] [place], [address] Potassium [Moles/Vol] 4.6 mmol/L Normal 3.3-5.1 [facility] Comment on above: Result Comment: Hemo lysis present, Results??could be affected. ?? Performed By: #### L 500.2500, L100.0100 ####[facility] [address] [place], [address] Sodium [Moles/Vol] 137 mmol/L Normal 133-145 [facility] Comment on above: Performed By: #### L 500.2500, L100.0100 ####[facility] [address] [place], [address] Urea nitrogen [Mass/Vol] 12 mg/dL Normal 4-19 [facility] Comment on above: Performed By: #### L 500.2500, L100.0100 ####[facility] [address] [place], [address] CBC W/Diff, Automatedon 10-01 Absolute Lymph 2.27 X10 3/uL Normal 0.83-4.51 [facility] Comment on above: Performed By: #### L 500.2500, L100.0100 ####[facility] [address] [place], [address] Absolute Neut 4.0 X10 3/uL Normal 2.0-7.7 [facility] Comment on above: Performed By: #### L 500.2500, L100.0100 ####[facility] [address] [place], [address] Basophils/100 WBC (Bld) 0.7 % Normal 0-1 [facility] Comment on above: Performed By: #### L 500.2500, L100.0100 ####[facility] [address] [place], [address] Eosinophils/100 WBC (Bld) 3.7 % Normal 0-5 [facility] Comment on above: Performed By: #### L 500.2500, L100.0100 ####[facility] [address] [place], [address] Erythrocyte distribution width (RBC) [Ratio] 14.3 % Normal 11.6-14.6 [facility] Comment on above: Performed By: #### L 500.2500, L100.0100 ####[facility] [address] [place], [address] Hematocrit (Bld) [Volume fraction] 42.8 % Normal 40-54 [facility] Comment on above: Performed By: #### L 500.2500, L100.0100 ####[facility] [address] [place], [address] Hemoglobin (Bld) [Mass/Vol] 14.0 g/dL Normal 13.0-16.5 [facility] Comment on above: Performed By: #### L 500.2500, L100.0100 ####[facility] [address] [place], [address] IG% 0.600 Normal 0.0-0.9 [facility] Comment on above: Result Comment: IG% - Immature Granulocytes (promyelocytes, myelocytes and metamyelocytes) > 1% indicates that a LEFT SHIFT is Present. Performed By: #### L 500.2500, L100.0100 ####[facility] [address] [place], [address] Lymphocytes/100 WBC (Bld) 31.4 % Normal 19-41 [facility] Comment on above: Performed By: #### L 500.2500, L100.0100 ####[facility] [address] [place], [address] MCH (RBC) [Entitic mass] 31.9 pg Normal 27.0-32.0 [facility] Comment on above: Performed By: #### L 500.2500, L100.0100 ####[facility] [address] [place], [address] MCHC (RBC) [Mass/Vol] 32.7 g/dL Normal 32-36 [facility] Comment on above: Performed By: #### L 500.2500, L100.0100 ####[facility] [address] [place], [address] MCV (RBC) [Entitic vol] 97.5 fL High 80-94 [facility] Comment on above: Performed By: #### L 500.2500, L100.0100 ####[facility] [address] [place], [address] Monocytes/100 WBC (Bld) 8.2 % Normal 0-10 [facility] Comment on above: Performed By: #### L 500.2500, L100.0100 ####[facility] [address] [place], [address] Neutrophils/100 WBC (Bld) 55.4 % Normal 47-70 [facility] Comment on above: Performed By: #### L 500.2500, L100.0100 ####[facility] [address] [place], [address] Nucleated RBC (Bld) [#/Vol] 0 10*3/uL Normal 0-5 [facility] Comment on above: Performed By: #### L 500.2500, L100.0100 ####[facility] [address] [place], [address] Platelet mean volume (Bld) [Entitic vol] 10.3 fL Normal 6.2-12.0 [facility] Comment on above: Performed By: #### L 500.2500, L100.0100 ####[facility] [address] [place], [address] Platelets (Bld) [#/Vol] 253 10*3/uL Normal 150-450 [facility] Comment on above: Performed By: #### L 500.2500, L100.0100 ####[facility] [address] [place], [address] RBC (Bld) [#/Vol] 4.39 10*6/uL Low 4.6-6.2 [facility] Comment on above: Performed By: #### L 500.2500, L100.0100 ####[facility] [address] [place], [address] RDW SD 51.6 fl High 35.1-43.9 [facility] Comment on above: Performed By: #### L 500.2500, L100.0100 ####[facility] [address] [place], [address] WBC (Bld) [#/Vol] 7.2 10*3/uL Normal 4.4-11.0 [facility] Comment on above: Performed By: #### L 500.2500, L100.0100 ####[facility] [address] [place], [address] Bedside Glucoseon 10-22-2024 FINGERSTICK GLU 150 mg/dL High 74-106 [facility] Comment on above: Result Comment: LANA SUTTON OF PATIENT CARE PER NURSING PROTOCOL Performed By: #### L 501.080 ####[facility] [address] [place], [address] EGD Reporton 10-22-2024 EGD Report [facility] Medical Records Department [address] [place] [address] EGD Report MR#: [id number] Acct: [id number] Name: ROCIO SANDOVAL Rep #: [id number] : 1945 79 From: Jovany Khoury DO PCP: Dr. Santi Anne MD Status:[facility] Patient Name: Rocio Sandoval Procedure Date: 10/22/2024 3:34 PM Date of : 1945 Age: 79 Procedure: Upper GI endoscopy Indications: Remove PEG tube (no longer needed), Stent removal Providers: Jovany Khoury DO Medicines: Monitored Anesthesia Care Patient Profile: This is an 79 year old male. Refer to note in patient chart for documentation of history and physical. Patient has symptoms of acute dysphagia. His most recent EGD for PEG placement and EGD for stent placement was within the past three months. Complications: No immediate 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s. Procedure: Pre-Anesthesia Assessment: - Prior to the procedure, a History and Physical was performed, and patient medications and allergies were reviewed. The patient is competent. The risks and benefits of the procedure and the sedation options and risks were discussed with the patient. All questions were answered and informed consent was obtained. Patient identification and proposed procedure were verified by the physician in the pre-procedure area. Mental Status Examination: alert and oriented. Airway Examination: normal oropharyngeal airway and neck mobility. Respiratory Examination: clear to auscultation. CV Examination: normal. Prophylactic Antibiotics: The patient does not require prophylactic antibiotics. Prior Anticoagulants: The patient has taken no anticoagulant or antiplatelet agents except for NSAID medication. ASA Grade Assessment: II - A patient with mild systemic disease. After reviewing the risks and benefits, the patient was deemed in satisfactory condition to undergo the procedure. The anesthesia plan was to use monitored anesthesia care (MAC). Immediately prior to administration of medications, the patient was re-assessed for adequacy to receive sedatives. The heart rate, respiratory rate, oxygen saturations, blood pressure, adequacy of pulmonary ventilation, and response to care were monitored throughout the procedure. The physical status of the patient was re-assessed after the procedure. After obtaining informed consent, the endoscope was passed under direct vision. Throughout the procedure, the patient's blood pressure, pulse, and oxygen saturations were monitored continuously. The Endoscope was introduced through the mouth, and advanced to the second part of duodenum. The upper GI endoscopy was accomplished without difficulty. The patient tolerated the procedure well. Scope In: 4:34:05 PM Scope Out: 4:53:06 PM Total Procedure Duration Time 0 hours 19 minutes 1 second Findings: An esophageal stent was found in the entire esophagus. Stent removal was accomplished with a jumbo forceps. Full-strength contrast was injected through the scope and with the use of fluoroscopy no contrast was seen leaking out of the esophagus. No perforation was seen. There was a presence of a large hiatal hernia. There was evidence of an intact gastrostomy with a patent G-tube present in the gastric body. This was characterized by healthy appearing mucosa. The PEG required removal because it was no longer necessary. The PEG was cut externally, grasped, and removed with the scope. Removal was easily accomplished. No gross lesions were noted in the entire examined duodenum. Non-severe esophagitis with no bleeding was found 27 to 37 cm from the incisors. A large hiatal hernia was present. Impression: - Pre-existing esophageal stent, removed. - Intact gastrostomy with a patent G-tube present characterized by healthy appearing mucosa. - No gross lesions in the entire examined duodenum. - The PEG was cut externally, grasped, and removed with the scope because it was no longer necessary. Recommendation: - Discharge patient to home. - Full liquid diet today. - Continue present medications. Procedure Code(s): --- Professional --- 33169, Esophagogastroduodenos copy, flexible, transoral; with removal of foreign body(s) CPT copyright 2021 [employer]. All rights reserved. The codes documented in this report are preliminary and upon day care supervisor review may be revised to meet current compliance requirements. Jovany Khoury DO 10/22/2024 5:03:28 PM This report has been signed electronically. Number of Addenda: 0 Note Initiated On: 10/22/2024 3:34 PM 10/22/24 1703 Date Jovany Khoury DO Cosigner Signature: Date (if indicated) CC: Dr. Santi Anne MD; Jovany Khoury DO Date Dictated: 10/22/24 1534 Date T (more content not included)... Normal [facility] Fluoroscopy 1 Hr or Lesson 0 10-22-2024 Fluoroscopy 1 Hr or Less [facility] Imaging Services [address] [place], [place] [id number] Fluoroscopy 1 Hr or Less MR#: [id number] Acct: [id number] Name: ROCIO SANDOVAL Rep #: [id number] : 1945 M 79 From: Rocio Carlisle PCP: Dr. Santi Anne MD Status: [facility] Study: Fluoroscopy 1 Hr or Less Date of Exam: 5 Exam# [id number] Ordering Dr: Jovany Khoury DO PROCEDURE: FLUOROSCOPY 1 HR OR LESS 10/22/2024 REASON FOR EXAM: Stent replacement, perforation TECHNIQUE: 3 cine loops were submitted containing 6, 137 and 118 images. Total fluoroscopy time was 40 seconds. Peak skin radiation dose was 13.99 mGy. COMPARISON: None FINDINGS: See impression RAD/Fluoroscopy 1 Hr or Less IMPRESSION: Contrast opacification of the esophagus without gross extravasation. See operative report for further details. Reading Location: [facility] CC: Dr. Santi Anne MD; Jovany Khoury DO Welder Tack: Signed [facility] MR/POSTOP.ANE 10-22-2024 MR/POSTOP.[facility] Medical Records Department [address] [place] [address] Anesthesia Postop Eval I 10/22/241702 MR#: [id number] Acct: [id number] Name: JAIMEROCIO Chalino Rep #: [id number] : 1945 79 From: Nilo Massey CRNA PCP: Dr. Santi Anne MD Status:REG SDC Y Race: C Location: [place] [address] Anesthesia: Postop Eval I Current Vital Signs Temperature: 97.6 F Pulse Rate: 70 Blood Pressure: 123/68 Respiratory Rate: 16 Pulse Ox: 97 Assessment Airway patent: Yes Spontaneous unlabored respirations: Yes nausea: No Vomiting: No Anesthesia Complication: No Fluid Hydration Crystalloid volume administer (ml): 700 Total IV fluid infused: 700 Progress Note Anesthesia document: Postop Eval 1 completed: Yes 10/22/241703 Date Nilo Massey REFRIGERATION REPAIR SUPERVISOR Cosigner Signature: Date CC: Signed [facility] MR/[id number] 10-22-2024 MR/POSTOPAN2 [facility] Medical Records Department [address] [place] [address] Anesthesia Postop Eval II 10/22/24 173 MR#: [id number] Acct: [id number] Name: ROCIO SANDOVAL Rep #: [id number] : 1945 79 From: Yaniv Joyner MD PCP: Dr. Santi Anne MD Status:REG SDC Y Race: C Location: [place] [address]- Anesthesia Postop Eval I Sum Postop Eval Completion status Anesthesia document: Postop Eval 1 completed: Yes Anesthesia Postop Eval I Summary Anesthesia Postop Eval I Summary: Anesthesia Postop Eval I: Assessment Summary Airway patent Yes 10/22/24 17:03 REFRIGERATION REPAIR SUPERVISOR.TNES Spontaneous unlabored Yes 10/22/24 17:03 REFRIGERATION REPAIR SUPERVISOR.TNES respirations Mental status nausea No 10/22/24 17:03 REFRIGERATION REPAIR SUPERVISOR.TNES Vomiting No 10/22/24 17:03 REFRIGERATION REPAIR SUPERVISOR.TNES Anesthesia Postop Eval I: Fluid Summary Crystalloid volume administer 700 10/22/24 17:03 REFRIGERATION REPAIR SUPERVISOR.TNES (ml) Colloids volume administered ( ml) Blood Product volume administered (ml) Total IV fluid infused 700 10/22/24 17:03 REFRIGERATION REPAIR SUPERVISOR.TNES Anesthesia Postop Eval I: Summary Notes Anesthesia Complication No 10/22/24 17:03 REFRIGERATION REPAIR SUPERVISOR.TNES Anesthesia Complication Comment: Post-operative progress note Anesthesia: Postop Eval II Evaluation Mental status: Awake Pain Level: 0 nausea: No Vomiting: No 10/22/241730 Date Yaniv Joyner MD Cosigner Signature: Date CC: Signed [facility] Abdomen Single Viewon 2024 Abdomen Single View [facility] Imaging Services [address] [place] [address] Abdomen Single View MR#: [id number] Acct: [id number] Name: ROCIO SANDOVAL Rep #: [id number] : 1945 M 79 From: Andrea Mehta MD PCP: Dr. Santi Anne MD Status: ADM IN Study: Abdomen Single View Date of Exam: 10/21/24 Exam# [id number] Ordering Dr: Cristopher Washington MD EXAM: XR Abdomen, 1 View CLINICAL INDICATION: CONSTIPATION, EPIGASTRIC ABDOMINAL PAIN. TECHNIQUE: Frontal supine view of the abdomen/pelvis. COMPARISON: No relevant prior studies available. FINDINGS: GASTROINTESTINAL TRACT: Contrast is in the colon. No dilation. BONES/JOINTS: Unremarkable. No acute fracture. TUBES, LINES AND DEVICES: Probable G-tube. RAD/Abdomen Single View IMPRESSION: Nonobstructive bowel gas pattern. Reading Location: [facility] CC: Dr. Santi Anne MD; Dr. Cristopher Washington MD Welder Tack: Signed Normal [facility] Wound Cultureon 10-21-2024 WC JG Tube Site Serratia marcescens Amount Growth 3+ Serratia marcescens: REACTION Cefepime Islt DERREK <=0.12 cefTRIAXone Islt DERREK <=0.25 S Ciprofloxacin Islt DERREK <=0.06 S Gentamicin Islt DERREK <=1 S levoFLOXacin Islt DERREK <=0.12 S Meropenem Islt DERREK <=0.25 S TMP SMX Islt DERREK <=20 S Normal [facility] Comment on above: Performed By: #### M 100.2000, M100.3000 ####[facility] [address] [facility]. [place], [place], [id number] Abdomen Single Viewon 2024 Abdomen Single View [facility] Imaging Services [address] [place] [address] Abdomen Single View MR#: [id number] Acct: [id number] Name: ROCIO SANDOVAL Rep #: [id number] : 1945 M 79 From: Isma sanchez MD PCP: Dr. Santi Anne MD Status: ADM IN Study: Abdomen Single View Date of Exam: 10/20/24 Exam# [id number] Ordering Dr: Cristopher Washington MD PROCEDURE: ABDOMEN SINGLE VIEW 10/20/2024 REASON FOR EXAM: CONSTIPATION. TECHNIQUE: Single view abdomen. COMPARISON: Comparison is made with prior study dated October 08, 2024. FINDINGS: Bowel gas: Moderate constipation identified with fecal material distributed throughout the colon. No evidence of bowel obstruction. A pigtail catheter is seen within the distal body of the stomach. Esophageal stent is seen. Calcifications: No suspicious calcifications. Bones: There are degenerative changes of the spine. Other: RAD/Abdomen Single View IMPRESSION: Large amount of fecal material is seen in the colon. A pigtail catheter seen with the tip in the distal stomach. Esophageal stent is also visualized. Reading Location: [place] [address] CC: Dr. Santi Anne MD; Dr. Cristopher Washington MD Welder Tack: Signed Normal [facility] Abdomen/Pelvis WITH Contrast on 10-20-2024 Abdomen/Pelvis WITH Contrast [facility] Imaging Services [address] [place] [address] [id number] Abdomen/Pelvis WITH Contrast MR#: [id number] Acct: [id number] Name: ROCIO SANDOVAL Rep #: [id number] : 1945 M 79 From: Rocio Alvarez MD PCP: Dr. Santi Anne MD Status: REG CLI Study: Abdomen/Pelvis WITH Contrast Date of Exam: Exam# [id number] Ordering Dr: Cristopher Washington MD PROCEDURE: ABDOMEN/PELVIS WITH CONTRAST 10/20/2024 REASON FOR EXAM: ABDOMINAL RIGIDITY, UNSPECIFIED SITE, UPPER ABDOMINAL PAIN, UNSPE TECHNIQUE: Abdomen and pelvis CT with intravenous contrast. Coronal and Sagittal reconstruction series were provided. PATIENT PREPARATION: Per protocol ORAL CONTRAST TYPE: Gastrografin CONTRAST: 97 cc Isovue-300 IV One or more dose reduction techniques were used (e.g., Automated exposure control, adjustment of the mA and/or kV according to patient size, use of iterative reconstruction technique. RADIATION DOSE SUMMARY: CTDlvol: 29.92 mGy DLP: 1264.13 mGycm FINDINGS: Chronic interstitial changes peripheral aspect of the visualized lungs suggested. Sequela of previous granulomatous disease noted. Multi lead pacemaker noted. Appearance of previous partial distal esophageal resection and partial gastric pull-through, correlate with history. Esophageal stent is present containing air-fluid level at the upper portion. The liver, gallbladder, adrenal glands, kidneys, pancreas and spleen appear within limits. Exophytic cyst upper pole left kidney with possible thin septation. Aortoiliac atherosclerotic changes. No abdominal aortic aneurysm. No adenopathy identified. Percutaneous gastrostomy tube at the epigastrium within the stomach below the diaphragm. No bowel dilation or free air. Normal caliber appendix contains oral contrast without secondary signs. Circumscribed ovoid area of fat pericolonic flat pericolonic fat adjacent to the sigmoid with some areas of calcification may represent sequela of a remote epiploic appendagitis for example axial 118 and sagittal 97. Left larger than right bladder diverticulum. Measuring 3.4 cm on the left and 1.4 cm on the right. The bladder otherwise appears within limits. The prostate appears within limits. No free fluid. Lower lumbar spondylosis/discogenic change. CT/Abdomen/Pelvis WITH Contrast IMPRESSION: No evidence of acute intra-abdominal process. Other findings as above. Reading Location: [facility] CC: Dr. Santi Anne MD; Dr. Cristopher Washington MD Welder Tack: Signed Normal [facility] Cardiac Device Check - In Cl inicOrdered By: Fam Ferrell on 10-20-2024 [facility] Work Phone: Cardiac Device Check - In Cl inicon 10-20-2024 Radiology Study observation (narrative) [facility] Work Phone: Gram Stainon 10-20-2024 GS JG Tube Site Gram Stain 2+ Red Blood Cells 1+ Gram positive rods Normal [facility] Comment on above: Performed By: #### M 100.2000, M100.3000 ####[facility] [address] [place], [address] Upper GI w/BA Swallowon 2 Upper GI w/BA Swallow [facility] Imaging Services [address] [place] [address] Upper GI w/BA Swallow MR#: [id number] Acct: [id number] Name: ROCIO SANDOVAL Rep #: [id number] : 1945 M 79 From: Isma sanchez MD PCP: Dr. Santi Anne MD Status: ADM IN Study: Upper GI w/BA Swallow Date of Exam: 10/20/24 Exam# [id number] Ordering Dr: Cristopher Washington MD PROCEDURE: UPPER GI W/BA SWALLOW10/20/2024 REASON FOR EXAM: ABDOMINAL PAIN AND DISCOMFORT Esophageal stent. TECHNIQUE: History of prior perforation of the esophagus. CONTRAST: Gastrografin and water. Fluoroscopy: 95 seconds 14.9 mGy. One or more dose reduction techniques were used (e.g., Automated exposure control, adjustment of the mA and/or kV according to patient size, use of iterative reconstruction technique). COMPARISON: Comparison is made with prior study dated October 10, 2024. FINDINGS: The patient ingested Gastrografin. There is evidence of an indwelling Wallstent involving the mid and distal esophagus. The stent is patent. No evidence of extravasation. The patient ingested a 12 mm tablet the barium. The tablet is trapped at the gastroesophageal junction. Contrast is seen within the stomach. RAD/Upper GI w/BA Swallow IMPRESSION: Stable examination. Reading Location: [facility] CC: Dr. Santi Anne MD; Dr. Cristopher Washington MD Welder Tack: Signed Normal [facility] Basic Metabolic Profile (BMP )on 10-16-2024 BUN/CRE 14.3 RATIO Normal 10-20 [facility] Comment on above: Performed By: #### L 501.080 #### [facility] [address] [place], [address] Calcium [Mass/Vol] 9.1 mg/dL Normal 7.6-11.0 [facility] Comment on above: Performed By: #### L 501.080 #### [facility] [address] [place], [address] Chloride [Moles/Vol] 100 mmol/L Normal 98-108 [facility] Comment on above: Performed By: #### L 501.080 #### [facility] [address] [place], [address] CO2 [Moles/Vol] 24.8 mmol/L Normal 21.0-32.0 [facility] Comment on above: Performed By: #### L 501.080 #### [facility] [address] [place], [address] Creatinine [Mass/Vol] 0.75 mg/dL Normal 0.70-1.20 [facility] Comment on above: Performed By: #### L 501.080 #### [facility] [address] [place], [address] ECRCL 84.20 ml/min Normal 50-250 [facility] Comment on above: Performed By: #### L 501.080 #### [facility] [address] [place], [address] GAP 11 Normal 5-15 [facility] Comment on above: Performed By: #### L 501.080 #### [facility] [address] [place], [address] GFR/1.73 sq M.predicted among non-blacks MDRD (S/P/Bld) [Vol rate/Area] 91 mL/min/{1.73_m2} Normal >60 [facility] Comment on above: Result Comment: mL/m in/1.73m2 CKD-EPI Creatinine Equation (2020) Performed By: #### L 501.080 #### [facility] [address] [place], [address] Glucose [Mass/Vol] 139 mg/dL High 70-99 [facility] Comment on above: Performed By: #### L 501.080 #### [facility] [address] [place], [address] Potassium [Moles/Vol] 4.5 mmol/L Normal 3.3-5.1 [facility] Comment on above: Performed By: #### L 501.080 #### [facility] [address] [place], [address] Sodium [Moles/Vol] 136 mmol/L Normal 133-145 [facility] Comment on above: Performed By: #### L 501.080 #### [facility] [address] [place], [address] Urea nitrogen [Mass/Vol] 11 mg/dL Normal 4-19 [facility] Comment on above: Performed By: #### L 501.080 #### [facility] [address] [place], [address] CBC W/Diff, Automatedon - Absolute Lymph 2.11 X10 3/uL Normal 0.83-4.51 [facility] Comment on above: Performed By: #### L 501.080 #### [facility] [address] [place], [address] Absolute Neut 5.8 X10 3/uL Normal 2.0-7.7 [facility] Comment on above: Performed By: #### L 501.080 #### [facility] [address] [place], [address] Basophils/100 WBC (Bld) 0.8 % Normal 0-1 [facility] Comment on above: Performed By: #### L 501.080 #### [facility] [address] [place], [address] Eosinophils/100 WBC (Bld) 2.7 % Normal 0-5 [facility] Comment on above: Performed By: #### L 501.080 #### [facility] [address] [place], [address] Erythrocyte distribution width (RBC) [Ratio] 14.9 % High 11.6-14.6 [facility] Comment on above: Performed By: #### L 501.080 #### [facility] [address] [place], [address] Hematocrit (Bld) [Volume fraction] 40.9 % Normal 40-54 [facility] Comment on above: Performed By: #### L 501.080 #### [facility] [address] [place], [address] Hemoglobin (Bld) [Mass/Vol] 13.6 g/dL Normal 13.0-16.5 [facility] Comment on above: Performed By: #### L 501.080 #### [facility] [address] [place], [address] IG% 0.200 Normal 0.0-0.9 [facility] Comment on above: Result Comment: IG% - Immature Granulocytes (promyelocytes, myelocytes and metamyelocytes) > 1% indicates that a LEFT SHIFT is Present. Performed By: #### L 501.080 #### [facility] [address] [place], [address] Lymphocytes/100 WBC (Bld) 23.3 % Normal 19-41 [facility] Comment on above: Performed By: #### L 501.080 #### [facility] [address] [place], [address] MCH (RBC) [Entitic mass] 31.7 pg Normal 27.0-32.0 [facility] Comment on above: Performed By: #### L 501.080 #### [facility] [address] [place], [address] MCHC (RBC) [Mass/Vol] 33.3 g/dL Normal 32-36 [facility] Comment on above: Performed By: #### L 501.080 #### [facility] [address] [place], [address] MCV (RBC) [Entitic vol] 95.3 fL High 80-94 [facility] Comment on above: Performed By: #### L 501.080 #### [facility] [address] [place], [address] Monocytes/100 WBC (Bld) 9.2 % Normal 0-10 [facility] Comment on above: Performed By: #### L 501.080 #### [facility] [address] [place], [address] Neutrophils/100 WBC (Bld) 63.8 % Normal 47-70 [facility] Comment on above: Performed By: #### L 501.080 #### [facility] [address] [place], [address] Nucleated RBC (Bld) [#/Vol] 0 10*3/uL Normal 0-5 [facility] Comment on above: Performed By: #### L 501.080 #### [facility] [address] [place], [address] Platelet mean volume (Bld) [Entitic vol] 10.5 fL Normal 6.2-12.0 [facility] Comment on above: Performed By: #### L 501.080 #### [facility] [address] [place], [address] Platelets (Bld) [#/Vol] 266 10*3/uL Normal 150-450 [facility] Comment on above: Performed By: #### L 501.080 #### [facility] [address] [place], [address] RBC (Bld) [#/Vol] 4.29 10*6/uL Low 4.6-6.2 [facility] Comment on above: Performed By: #### L 501.080 #### [facility] [address] [place], [address] RDW SD 51.3 fl High 35.1-43.9 [facility] Comment on above: Performed By: #### L 501.080 #### [facility] [address] [place], [address] WBC (Bld) [#/Vol] 9.1 10*3/uL Normal 4.4-11.0 [facility] Comment on above: Performed By: #### L 501.080 #### [facility] [address] [place], [address] Bedside Glucoseon 10-14-2024 FINGERSTICK GLU 125 mg/dL High 74-106 [facility] Comment on above: Result Comment: LANA GEMENT OF PATIENT CARE PER NURSING PROTOCOL Performed By: #### L 501.080 #### [facility] [address] [place], [address] FINGERSTICK GLU 129 mg/dL High -106 [facility] Comment on above: Result Comment: LANA GEMENT OF PATIENT CARE PER NURSING PROTOCOL Performed By: #### L 501.080 #### [facility] [address] [place], [address] FINGERSTICK GLU 140 mg/dL High 74-106 [facility] Comment on above: Result Comment: LNAA GEMENT OF PATIENT CARE PER NURSING PROTOCOL Performed By: #### L 501.080 #### [facility] [address] [place], [address] Bedside Glucoseon 10-13-2024 FINGERSTICK GLU 124 mg/dL High [facility]106 [facility] Comment on above: Result Comment: LANA GEMENT OF PATIENT CARE PER NURSING PROTOCOL Performed By: #### L 501.080 ####[facility] [address] [place], [address] FINGERSTICK GLU 103 mg/dL Normal 74-106 [facility] Comment on above: Result Comment: LANA GEMENT OF PATIENT CARE PER NURSING PROTOCOL Performed By: #### L 501.080 ####[facility] [address] [place], [address] FINGERSTICK GLU 125 mg/dL High 74-106 [facility] Comment on above: Result Comment: LANA GEMENT OF PATIENT CARE PER NURSING PROTOCOL Performed By: #### L 501.080 #### [facility] [address] [place], [address] FINGERSTICK GLU 137 mg/dL High 74-106 [facility] Comment on above: Result Comment: LANA GEMENT OF PATIENT CARE PER NURSING PROTOCOL Performed By: #### L 501.080 ####[facility] [address] [place], [address] Bedside Glucoseon 10-12-2024 FINGERSTICK GLU 119 mg/dL High 74-106 [facility] Comment on above: Result Comment: LANA GEMENT OF PATIENT CARE PER NURSING PROTOCOL Performed By: #### L 501.080 #### [facility] [address] [place], [address] FINGERSTICK GLU 106 mg/dL Normal 74-106 [facility] Comment on above: Result Comment: LANA GEMENT OF PATIENT CARE PER NURSING PROTOCOL Performed By: #### L 501.080 #### [facility] [address] [place], [address] FINGERSTICK GLU 158 mg/dL High 74-106 [facility] Comment on above: Result Comment: LANA GEMENT OF PATIENT CARE PER NURSING PROTOCOL Performed By: #### L 501.080 #### [facility] [address] [place], [address] FINGERSTICK GLU 146 mg/dL High -106 [facility] Comment on above: Result Comment: LANA GEMENT OF PATIENT CARE PER NURSING PROTOCOL Performed By: #### L 501.080 #### [facility] [address] [place], [address] Bedside Glucoseon 10-11-2024 FINGERSTICK GLU 118 mg/dL High [address] [place] [address] Comment on above: Result Comment: LANA GEMENT OF PATIENT CARE PER NURSING PROTOCOL Performed By: #### L 501.080 ####[facility] [address] [place], [address] FINGERSTICK GLU 141 mg/dL High [address] [place] [address] Comment on above: Result Comment: LANA GEMENT OF PATIENT CARE PER NURSING PROTOCOL Performed By: #### L 501.080 #### [facility] [address] [place], [address] FINGERSTICK GLU 167 mg/dL High [address] [place] [address] Comment on above: Result Comment: LANA GEMENT OF PATIENT CARE PER NURSING PROTOCOL Performed By: #### L 501.080 #### [facility] [address] [place], [address] FINGERSTICK GLU 130 mg/dL [address] Comment on above: Result Comment: LANA GEMENT OF PATIENT CARE PER NURSING PROTOCOL Performed By: #### L 501.080 #### [facility] [address] [place], [address] Bedside Glucoseon 5 FINGERSTICK GLU 124 mg/dL High [address] [place] [address] Comment on above: Result Comment: LANA GEMENT OF PATIENT CARE PER NURSING PROTOCOL Performed By: #### L 501.080 ####[facility] [address] [place], [address] FINGERSTICK GLU 160 mg/dL High [address] [place] [address] Comment on above: Result Comment: LANA GEMENT OF PATIENT CARE PER NURSING PROTOCOL Performed By: #### L 501.080 #### [facility] [address] [facility] [address] FINGERSTICK GLU 149 mg/dL High [facility]106 [facility] Comment on above: Result Comment: LANA GEMENT OF PATIENT CARE PER NURSING PROTOCOL Performed By: #### L 501.080 ####[facility] [address] [facility] [address] FINGERSTICK GLU 179 mg/dL High [facility]106 [facility] Comment on above: Result Comment: LANA GEMENT OF PATIENT CARE PER NURSING PROTOCOL Performed By: #### L 501.080 #### [facility] [address] [facility] [address] FINGERSTICK GLU 160 mg/dL [address] Comment on above: Result Comment: LANA GEMENT OF PATIENT CARE PER NURSING PROTOCOL Performed By: #### L 501.080 #### [facility] [address] [facility] [address] Upper GI w/BA Swallowon - Upper GI w/BA Swallow [facility] Services [address] [place] [address] Upper GI w/BA Swallow MR#: [id number] Acct: [id number] Name: ROCIO SANDOVAL Rep #: [id number] : 1945 M 79 From: Iam Toney MD PCP: Dr. Santi Anne MD Status: ADM IN Study: Upper GI w/BA Swallow Date of Exam: 10/10/24 Exam# [id number] Ordering Dr: Jovany Khoury DO EXAM: GASTROGRAFIN ESOPHAGRAM CLINICAL HISTORY: RECENTLY INSERTED ESOPHAGEAL STENT FOLLOWING SURGICAL DEFECT. CHECK FOR PATENCY. COMPARISON: No relevant prior. TECHNIQUE: The patient was instructed to ingest Gastrografin while fluoroscopic evaluation of the esophagus and stomach was performed. Routine series documentation. FINDINGS: A long esophageal wall stent is noted measuring approximately 16 cm in length. There was no evidence of extraluminal extravasation of contrast. Mild delay in passage of Gastrografin through the distal stent positioned just proximal to the esophagogastric junction. Residual contrast is noted in the large bowel from recent PEG tube injection. Marked cardiomegaly. No other significant findings. RAD/Upper GI w/BA Swallow IMPRESSION: Patent esophageal wall stent with no signs of extraluminal extravasation of contrast. Reading Location: [place] [address] CC: Dr. Santi Anne MD; Jovany Khoury DO Welder Tack: Signed Normal [facility] Abdomen Single Viewon 2024 Abdomen Single View [facility] Services [address] [place] [id number] Abdomen Single View MR#: [id number] Acct: [id number] Name: ROCIO SANDOVAL Rep #: [id number] : 1945 M 79 From: Andrea Mehta MD PCP: Dr. Santi Anne MD Status: ADM IN Study: Abdomen Single View Date of Exam: 10/09/24 Exam# [id number] Ordering Dr: Cristopher Washington MD EXAM: XR Abdomen, 1 View CLINICAL INDICATION: PLEASE USE GASTROGRAFIN TO ASSESS GJ TUBE PLACEMEN TECHNIQUE: Frontal supine view of the abdomen/pelvis. COMPARISON: No relevant prior studies available. FINDINGS: GASTROINTESTINAL TRACT: Unremarkable. No dilation. BONES/JOINTS: Unremarkable. No acute fracture. TUBES, LINES AND DEVICES: No gastric outlet obstruction. No contrast extravasation. G-tube appears to be proper position. RAD/Abdomen Single View IMPRESSION: No gastric outlet obstruction. No contrast extravasation. G-tube appears to be proper position. Reading Location: [facility] CC: Dr. Santi Anne MD; Dr. Cristopher Washington MD Welder Tack: Signed Normal [facility] Basic Metabolic Profile (BMP )on 10-09-2024 BUN/CRE 13.9 RATIO Normal 04-20 [facility] Comment on above: Performed By: #### L 500.2500, L100.0100 #### [facility] [address] [place], [address] Calcium [Mass/Vol] 8.6 mg/dL Normal 7.6-11.0 [facility] Comment on above: Performed By: #### L 500.2500, L100.0100 #### [facility] [address] [place], [address] Chloride [Moles/Vol] 105 mmol/L Normal 98-108 [facility] Comment on above: Performed By: #### L 500.2500, L100.0100 #### [facility] [address] [place], [address] CO2 [Moles/Vol] 25.2 mmol/L Normal 21.0-32.0 [facility] Comment on above: Performed By: #### L 500.2500, L100.0100 #### [facility] [address] [place], [address] Creatinine [Mass/Vol] 0.77 mg/dL Normal 0.70-1.20 [facility] Comment on above: Performed By: #### L 500.2500, L100.0100 #### [facility] [address] [place], [address] ECRCL 84.20 ml/min Normal 50-250 [facility] Comment on above: Performed By: #### L 500.2500, L100.0100 #### [facility] [address] [place], [address] GAP 10 Normal 5-15 [facility] Comment on above: Performed By: #### L 500.2500, L100.0100 #### [facility] [address] [place], [address] GFR/1.73 sq M.predicted among non-blacks MDRD (S/P/Bld) [Vol rate/Area] 90 mL/min/{1.73_m2} Normal >60 [facility] Comment on above: Result Comment: mL/m in/1.73m2 CKD-EPI Creatinine Equation (2020) Performed By: #### L 500.2500, L100.0100 #### [facility] [address] [place], [address] Glucose [Mass/Vol] 155 mg/dL High 70-99 [facility] Comment on above: Performed By: #### L 500.2500, L100.0100 #### [facility] [address] [place], [address] Potassium [Moles/Vol] 3.9 mmol/L Normal 3.3-5.1 [facility] Comment on above: Performed By: #### L 500.2500, L100.0100 #### [facility] [address] [place], [address] Sodium [Moles/Vol] 140 mmol/L Normal 133-145 [facility] Comment on above: Performed By: #### L 500.2500, L100.0100 #### [facility] [address] [place], [address] Urea nitrogen [Mass/Vol] 11 mg/dL Normal 4-19 [facility] Comment on above: Performed By: #### L 500.2500, L100.0100 #### [facility] [address] [place], [address] Bedside Glucoseon 10-09-2024 FINGERSTICK GLU 205 mg/dL High 74-106 [facility] Comment on above: Result Comment: LANA SUTTON OF PATIENT CARE PER NURSING PROTOCOL Performed By: #### L 501.080 #### [facility] [address] [place], [address] FINGERSTICK GLU 155 mg/dL High 74-106 [facility] Comment on above: Result Comment: LANA GEMENT OF PATIENT CARE PER NURSING PROTOCOL Performed By: #### L 501.080 ####[facility] [address] [place], [address] FINGERSTICK GLU 188 mg/dL High 74-106 [facility] Comment on above: Result Comment: LANA GEMENT OF PATIENT CARE PER NURSING PROTOCOL Performed By: #### L 501.080 #### [facility] [address] [place], [address] CBC W/Diff, Automatedon 04- 0-2024 Absolute Lymph 2.24 X10 3/uL Normal 0.83-4.51 [facility] Comment on above: Performed By: #### L 500.2500, L100.0100 #### [facility] [address] [place], [address] Absolute Neut 7.8 X10 3/uL High 2.0-7.7 [facility] Comment on above: Performed By: #### L 500.2500, L100.0100 #### [facility] [address] [place], [address] Basophils/100 WBC (Bld) 0.8 % Normal 0-1 [facility] Comment on above: Performed By: #### L 500.2500, L100.0100 #### [facility] [address] [place], [address] Eosinophils/100 WBC (Bld) 2.0 % Normal 0-5 [facility] Comment on above: Performed By: #### L 500.2500, L100.0100 #### [facility] [address] [place], [address] Erythrocyte distribution width (RBC) [Ratio] 15.5 % High 11.6-14.6 [facility] Comment on above: Performed By: #### L 500.2500, L100.0100 #### [facility] [address] [place], [address] Hematocrit (Bld) [Volume fraction] 42.2 % Normal 40-54 [facility] Comment on above: Performed By: #### L 500.2500, L100.0100 #### [facility] [address] [place], [address] Hemoglobin (Bld) [Mass/Vol] 13.4 g/dL Normal 13.0-16.5 [facility] Comment on above: Performed By: #### L 500.2500, L100.0100 #### [facility] [address] [place], [address] IG% 1.000 High 0.0-0.9 [facility] Comment on above: Result Comment: IG% - Immature Granulocytes (promyelocytes, myelocytes and metamyelocytes) > 1% indicates that a LEFT SHIFT is Present. Performed By: #### L 500.2500, L100.0100 #### [facility] [address] [place], [address] Lymphocytes/100 WBC (Bld) 19.9 % Normal 19-41 [facility] Comment on above: Performed By: #### L 500.2500, L100.0100 #### [facility] [address] [place], [address] MCH (RBC) [Entitic mass] 31.2 pg Normal 27.0-32.0 [facility] Comment on above: Performed By: #### L 500.2500, L100.0100 #### [facility] [address] [place], [address] MCHC (RBC) [Mass/Vol] 31.8 g/dL Low 32-36 [facility] Comment on above: Performed By: #### L 500.2500, L100.0100 #### [facility] [address] [place], [address] MCV (RBC) [Entitic vol] 98.4 fL High 80-94 [facility] Comment on above: Performed By: #### L 500.2500, L100.0100 #### [facility] [address] [place], [address] Monocytes/100 WBC (Bld) 6.8 % Normal 0-10 [facility] Comment on above: Performed By: #### L 500.2500, L100.0100 #### [facility] [address] [place], [address] Neutrophils/100 WBC (Bld) 69.5 % Normal 47-70 [facility] Comment on above: Performed By: #### L 500.2500, L100.0100 #### [facility] [address] [place], [address] Nucleated RBC (Bld) [#/Vol] 0 10*3/uL Normal 0-5 [facility] Comment on above: Performed By: #### L 500.2500, L100.0100 #### [facility] [address] [place], [address] Platelet mean volume (Bld) [Entitic vol] 11.4 fL Normal 6.2-12.0 [facility] Comment on above: Performed By: #### L 500.2500, L100.0100 #### [facility] [address] [place], [address] Platelets (Bld) [#/Vol] 245 10*3/uL Normal 150-450 [facility] Comment on above: Performed By: #### L 500.2500, L100.0100 #### [facility] [address] [place], [address] RBC (Bld) [#/Vol] 4.29 10*6/uL Low 4.6-6.2 [facility] Comment on above: Performed By: #### L 500.2500, L100.0100 #### [facility] [address] [place], [address] RDW SD 55.0 fl High 35.1-43.9 [facility] Comment on above: Performed By: #### L 500.2500, L100.0100 #### [facility] [address] [place], [address] WBC (Bld) [#/Vol] 11.2 10*3/uL High 4.4-11.0 [facility] Comment on above: Performed By: #### L 500.2500, L100.0100 #### [facility] [address] [place], [address] Consultation - Surgicalon Consultation - Surgical [facility] Medical Records Department [address] [place], [place] [address] [place] [address] Consultation - Surgical 10/09/24 0815 MR#: [id number] Acct: [id number] Name: ROCIO SANDOVAL Rep #: [id number] : 1945 79 From: Landry Jones MD PCP: Dr. Santi Anne MD Status:ADM IN Location: [place] [address] Assessment Plan Assessment/Plan (1) PEG tube malfunction: PLAN: The patient has a GJ tube in place. It appears that the patient has a G-tube in place with a J-tube going through it that is up tied to it. I cinched the bumper down a little bit to see if this would tighten the bumper in the stomach and prevent leaking. I asked the nurse to call me if he still leaks during today's tube feed. Landry Jones MD Pager: [facility] [address] [place] [address], [address] [place] [address] Office: HPI Consult Data Date of Consult: 10/09/24 HPI Narrative HPI Narrative: ROCIO SANDOVAL, is a 79 M who presents after esophageal perforation with a G-tube that is leaking. [facility] Medical History (Updated 10/09/24 @ 08:[address] Landry Jones MD) GERD (gastroesophageal reflux disease) Kidney stone BPH (benign prostatic hyperplasia) 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 with hyperglycemia Obstructive sleep apnea Hyperlipidemia, unspecified Essential (primary) hypertension HFrEF (heart failure with reduced ejection fraction) Sick sinus syndrome Atrial fibrillation Pneumomediastinum Esophageal perforation Debility Home Medications ???Medication ???Instructions ???Recorded ???Last Taken ???Type acetaminophen 160 mg/5 mL oral 640 mg feeding tube Q4H PRN pain 0 10/08/24 Unknown History elixir (scale score 1-3) amoxicillin 200 mg-potassium 22 ml feeding tube Q12H antibiotic 10/08/24 Unknown History clavulanate 28.5 mg/5 mL oral suspension docusate sodium 50 mg/5 mL oral 100 mg feeding tube BID stool 03/26 Unknown History liquid softener esomeprazole magnesium 20 mg 40 mg feeding tube DAILY reflux Unknown History capsule,delayed release (Nexium) fluconazole 40 mg/mL oral 400 mg feeding tube Q24H fungal Unknown History suspension (Diflucan) infection lidocaine 4 % topical patch 1 patch topical Q12H pain 10/08/24 Unknown History morphine 20 mg/5 mL (4 mg/mL) oral 5 mg feeding tube Q4H PRN pain 0 10/08/24 Unknown History solution (scale score 7-10) rivaroxaban 20 mg tablet (Xarelto) 20 mg G-tube DAILY blood thinner 10/08/24 Unknown History Allergy/AdvReac Type Severity Reaction Status Date / Time No Known Allergies Allergy Verified 10/08/24 14:09 Family History (Updated 10/08/24 @ 19:[address] Cristopher Washington MD) Mother CVA (cerebral vascular accident) Father Diabetes Sister Diabetes Brother Myocardial infarction Brother CAD (coronary artery disease) Brother Kidney disease Brother Diabetes Surgical History (Updated 10/08/24 @ 19:[address] Cristopher Washington MD) History of electrophysiologic study History of exam under anesthesia with epidural steroid injection Status post biventricular cardiac pacemaker insertion Social History (Updated 10/08/24 @ 19:[address] Cristopher Washington MD) household members: significant other Smoking Status: Never smoker alcohol intake: never substance use type: does not use ROS Constitutional Constitutional: Denies anorexia, chills or fatigue Eyes Eyes: Denies blurry vision ENT HEENT: Denies abnormal hearing Gastrointestinal Gastrointestinal: Denies abdominal pain, nausea or vomiting Genitourinary Genitourinary: Denies change in urinary stream Integumentary Integumentary: Denies jaundice Neurologic Neurologic: Denies abnormal gait Psychiatric Psychiatric: Denies anxiety Endocrine Endocrinology: Denies flushing Physical Exam Const alert and oriented x3 HEENT normocephalic Head and Scalp: normal to inspection Eyes PERRL Resp normal respiratory effort Cardio Rate: regular rate Rhythm: regular rhythm GI soft to palpation Inspection: Negative for abdominal distention Palpation: Negative for tender Extremity normal to inspection Neuro CN's II-XII intact bilaterally Medical Records Data Medical Nutrition Assessment Dietitian: Malnutrition Criteria Met Start: 10/08/24 14:45 Freq: Status: Active Protocol: Document 10/08/24 14:45 SLA (Rec: 10/08/24 14:45 SLA .25.7) Nutrition Malnutrition Evidence of Yes Malnutrition Exists Malnutrition (severe Acute Illness/Injury ): Evidenced By Suboptimal Energy Intake (Severe),Weight Loss (Severe) Clinical Problem Acute Disease or Injury Related Malnutrition Etiology related to esophageal perforation and inability to take oral nutrition since 09/26/24 Signs/Symptoms as evidenced by (more content not included)... [facility] MR/CON.PCM.GIon 10-09-2024 MR/CON.PCM.[facility] Medical Records Department [address] [place] [address] Consultation - GI 10/09/24 1809 MR#: [id number] Acct: [id number] Name: ROCIO SANDOVAL Chalino Rep #: [id number] : 1945 79 From: [facility] Friend DO PCP: Dr. Santi Anne MD Status:ADM IN Location: [facility] TCU06-1 HPI Consult Data Date of Consult: 10/09/24 HPI Narrative Reason for Consultation: Problem with tube feedings HPI Narrative: ROCIO SANDOVAL, is a 79 gentleman in rehab. history of hypertension, HFrEF, ALISHA, Diabetes Mellitus II, sick sinus syndrome who presented for TV pacer extraction with upgrade to [employer]P-P biventricular pacer. 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 Patient underwent ANTONIETTA intraoperatively. Postoperatively had a chest X-ray performed demonstrating possible pneumomediastinum. He had noncontrasted CT chest demonstrating pneumomediastinum. Patient had a CT chest with IV and PO contrast demonstrating a perforation at the posterior aspect of the GEJ concerning for esophageal perforation/injury. He underwent EGD with esophageal stent placement 150 x 23 distal end at 40cm and PET tube placement on 09/27/2024. Over his hospitalization patient was kept NPO with enteral fees at goal via PEG/J extension, plan to convert feeds to 16 hour cycle on discharge. There was some question of whether his PEG -J-tube was acting appropriately. He underwent a KUB with injection of Gastrografin through the tube: RAD/Abdomen Single View IMPRESSION: No gastric outlet obstruction. No contrast extravasation. G-tube appears to be proper position. [facility] Medical History GERD (gastroesophageal reflux disease) Kidney stone BPH (benign prostatic hyperplasia) 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 with hyperglycemia Obstructive sleep apnea Hyperlipidemia, unspecified Essential (primary) hypertension HFrEF (heart failure with reduced ejection fraction) Sick sinus syndrome Atrial fibrillation Pneumomediastinum Esophageal perforation Debility Home Medications ???Medication ???Instructions ???Recorded ???Last Taken ???Type acetaminophen 160 mg/5 mL oral 640 mg feeding tube Q4H PRN pain 0 10/08/24 Unknown History elixir (scale score 1-3) amoxicillin 200 mg-potassium 22 ml feeding tube Q12H antibiotic 10/08/24 Unknown History clavulanate 28.5 mg/5 mL oral suspension docusate sodium 50 mg/5 mL oral 100 mg feeding tube BID stool 03/26 Unknown History liquid softener esomeprazole magnesium 20 mg 40 mg feeding tube DAILY reflux Unknown History capsule,delayed release (Nexium) fluconazole 40 mg/mL oral 400 mg feeding tube Q24H fungal Unknown History suspension (Diflucan) infection lidocaine 4 % topical patch 1 patch topical Q12H pain 10/08/24 Unknown History morphine 20 mg/5 mL (4 mg/mL) oral 5 mg feeding tube Q4H PRN pain 0 10/08/24 Unknown History solution (scale score 7-10) rivaroxaban 20 mg tablet (Xarelto) 20 mg G-tube DAILY blood thinner 10/08/24 Unknown History Allergy/AdvReac Type Severity Reaction Status Date / Time No Known Allergies Allergy Verified 10/08/24 14:09 Family History Mother CVA (cerebral vascular accident) Father Diabetes Sister Diabetes Brother Myocardial infarction Brother CAD (coronary artery disease) Brother Kidney disease Brother Diabetes Surgical History History of electrophysiologic study History of exam under anesthesia with epidural steroid injection Status post biventricular cardiac pacemaker insertion Social History household members: significant other Smoking Status: Never smoker alcohol intake: never substance use type: does not use ROS Constitutional Constitutional: Denies anorexia, chills or fatigue Eyes Eyes: Denies blurry vision ENT HEENT: Denies abnormal hearing Gastrointestinal Gastrointestinal: Denies abdominal pain, nausea or vomiting Genitourinary Genitourinary: Denies change in urinary stream Integumentary Integumentary: Denies jaundice Neurologic Neurologic: Denies abnormal gait Psychiatric Psychiatric: Denies anxiety Endocrine Endocrinology: Denies flushing Physical Exam Const alert and oriented x3 HEENT normocephalic Head and Scalp: normal to inspection Eyes PERRL Resp normal respiratory effort Cardio Rate: regular rate Rhythm: regular rhythm GI soft to palpation Inspection: Negative for abdominal distention Palpation: Negative for tender Extremity normal to inspection Neuro CN's II-XII intact bilaterally Medical Records Data Medical Nutrition (more content not included)... Normal [facility] Abdomen Single Viewon 2024 Abdomen Single View [facility] [address], [place] [id number] Abdomen Single View MR#: [id number] Acct: [id number] Name: ROCIO SANDOVAL Rep #: [id number] : 1945 M 79 From: Bruce conroy MD PCP: Dr. Santi Anne MD Status: ADM IN Study: Abdomen Single View Date of Exam: 10/08/24 Exam# [id number] Ordering Dr: Cristopher Washington MD PROCEDURE: ABDOMEN SINGLE VIEW 10/08/2024 REASON FOR EXAM: CONFIRM PLACEMENT OF GJ TUBE TECHNIQUE: Single view abdomen. COMPARISON: None FINDINGS: There is a percutaneous gastrojejunostomy tube in place and appears slightly kinked at its mid section. Otherwise appears to be in normal position.. Air-filled prominent but nondilated colonic loops. Large colonic stool. RAD/Abdomen Single View IMPRESSION: See above Reading Location: [facility] CC: Dr. Santi Anne MD; Dr. Cristopher Washington MD Welder Tack: Signed Normal [facility] Bedside Glucoseon 10-08-2024 FINGERSTICK GLU 138 mg/dL High 74-106 [facility] Comment on above: Result Comment: LANA GEMENT OF PATIENT CARE PER NURSING PROTOCOL Performed By: #### L 501.080 ####[facility] [place], [place], [address] FINGERSTICK GLU 119 mg/dL High 74-106 [facility] Comment on above: Result Comment: LANA GEMENT OF PATIENT CARE PER NURSING PROTOCOL Performed By: #### L 501.080 #### [facility] [address] [place], [place], [address] CBC W Auto Differential pane l (Bld)on 10-08-2024 Basophils (Bld) [#/Vol] 0.05 10*3/uL [facility] Basophils/100 WBC (Bld) 0.4 % 0.0 - 2.0 % [facility] Eosinophils (Bld) [#/Vol] 0.28 10*3/uL [facility] Eosinophils/100 WBC (Bld) 2.2 % 0.0 - 6.0 % [facility] Erythrocyte distribution width (RBC) [Ratio] 15.6 % High 11.5 - 14.5 % [facility] Hematocrit (Bld) [Volume fraction] 43.4 % 41.0 - 52.0 % [facility] Hemoglobin (Bld) [Mass/Vol] 13.5 g/dL 13.5 - 17.5 g/dL [facility] Immature granulocytes (Bld) [#/Vol] 0.12 10*3/uL [facility] Immature granulocytes/100 WBC (Bld) 0.9 % 0.0 - 0.9 % [facility] Interpretation and review of laboratory results Abnormal [facility] Lymphocytes (Bld) [#/Vol] 2.22 10*3/uL [facility] Lymphocytes/100 WBC (Bld) 17.6 % 13.0 - 44.0 % [facility] MCH (RBC) [Entitic mass] 30.8 pg 26.0 - 34.0 pg [facility] MCHC (RBC) [Mass/Vol] 31.1 g/dL Low 32.0 - 36.0 g/dL [facility] MCV (RBC) [Entitic vol] 99 fL 80 - 100 fL [facility] Monocytes (Bld) [#/Vol] 0.73 10*3/uL [facility] Monocytes/100 WBC (Bld) 5.8 % 2.0 - 10.0 % [facility] Neutrophils (Bld) [#/Vol] 9.24 10*3/uL High [facility] Neutrophils/100 WBC (Bld) 73.1 % 40.0 - 80.0 % [facility] Nucleated RBC/100 WBC (Bld) [Ratio] 0 % [facility] Platelets (Bld) [#/Vol] 246 10*3/uL [facility] RBC (Bld) [#/Vol] 4.38 10*6/uL Low [facility] WBC (Bld) [#/Vol] 12.6 10*3/uL High [facility] Basophils (Bld) [#/Vol] 0.05 x10*3/uL Normal 0.00-0.10 [facility] Comment on above: Performed By: #### 4 537-7 #### EMANUEL FLOR ([id number]) [facility] ([facility]) [address] [place] [address] Basophils/100 WBC (Bld) 0.4 % Normal 0.0-2.0 [facility] Comment on above: Performed By: #### 4 537-7 #### EMANUEL FLOR ([id number]) [facility] ([facility]) [address] [place] [address] Eosinophils (Bld) [#/Vol] 0.28 x10*3/uL Normal 0.00-0.40 [facility] Comment on above: Performed By: #### 4 537-7 #### EMANUEL FLOR ([id number]) [facility] ([facility]) [address] [place] [address] Eosinophils/100 WBC (Bld) 2.2 % Normal 0.0-6.0 [facility] Comment on above: Performed By: #### 4 537-7 #### EMANUEL FLOR ([id number]) [facility] ([facility]) [address] [place] [address] Erythrocyte distribution width (RBC) [Ratio] 15.6 % High 11.5-14.5 [facility] Comment on above: Performed By: #### 4 537-7 #### EMANUEL FLOR ([id number]) [facility] ([facility]) [address] [place] [address] Hematocrit (Bld) [Volume fraction] 43.4 % Normal 41.0-52.0 [facility] Comment on above: Performed By: #### 4 537-7 #### EMANUEL FLOR ([id number]) [facility] ([facility]) [address] [place] [address] Hemoglobin (Bld) [Mass/Vol] 13.5 g/dL Normal 13.5-17.5 [facility] Comment on above: Performed By: #### 4 537-7 #### EMANUEL FLOR ([id number]) [facility] ([facility]) [address] [place] [address] Immature granulocytes (Bld) [#/Vol] 0.12 x10*3/uL Normal 0.00-0.50 [facility] Comment on above: Performed By: #### 4 537-7 #### EMANUEL FLOR ([id number]) [facility] ([facility]) [address] [place] [address] Immature granulocytes/100 WBC (Bld) 0.9 % Normal 0.0-0.9 [facility] Comment on above: Result Comment: Kathy ture Granulocyte Count (IG) includes promyelocytes, myelocytes and metamyelocytes but does not include bands. Percent differential counts (%) should be interpreted in the context of the absolute cell counts (cells/UL). Performed By: #### 4 537-7 #### EMANUEL FLOR ([id number]) [facility] ([facility]) [address] [place] [address] Lymphocytes (Bld) [#/Vol] 2.22 x10*3/uL Normal 0.80-3.00 [facility] Comment on above: Performed By: #### 4 537-7 #### EMANUEL FLOR ([id number]) [facility] ([facility]) [address] [place] [address] Lymphocytes/100 WBC (Bld) 17.6 % Normal 13.0-44.0 [facility] Comment on above: Performed By: #### 4 537-7 #### EMANUEL FLOR ([id number]) [facility] ([facility]) [address] [place] [address] MCH (RBC) [Entitic mass] 30.8 pg Normal 26.0-34.0 [facility] Comment on above: Performed By: #### 4 537-7 #### EMANUEL FLOR ([id number]) [facility] ([facility]) [address] [place] [address] MCHC (RBC) [Mass/Vol] 31.1 g/dL Low 32.0-36.0 [facility] Comment on above: Performed By: #### 4 537-7 #### EMANUEL FLOR ([id number]) [facility] ([facility]) [address] [place] [address] MCV (RBC) [Entitic vol] 99 fL Normal 80-100 [facility] Comment on above: Performed By: #### 4 537-7 #### EMANUEL FLOR ([id number]) [facility] ([facility]) [address] [place] [address] Monocytes (Bld) [#/Vol] 0.73 x10*3/uL Normal 0.05-0.80 [facility] Comment on above: Performed By: #### 4 537-7 #### EMANUEL FLOR ([id number]) [facility] ([facility]) [address] [place] [address] Monocytes/100 WBC (Bld) 5.8 % Normal 2.0-10.0 [facility] Comment on above: Performed By: #### 4 537-7 #### EMANUEL FLOR ([id number]) [facility] ([facility]) [address] [place] [address] Neutrophils (Bld) [#/Vol] 9.24 x10*3/uL High 1.60-5.50 [facility] Comment on above: Result Comment: Perc ent differential counts (%) should be interpreted in the context of the absolute cell counts (cells/uL). Performed By: #### 4 537-7 #### EMANUEL FLOR ([id number]) [facility] ([facility]) [address] [place] [address] Neutrophils/100 WBC (Bld) 73.1 % Normal 40.0-80.0 [facility] Comment on above: Performed By: #### 4 537-7 #### EMANUEL FLOR ([id number]) [facility] ([facility]) [address] [place] [address] Nucleated RBC/100 WBC (Bld) [Ratio] 0.0 /100 WBCs Normal 0.0-0.0 [facility] Comment on above: Performed By: #### 4 537-7 #### EMANUEL FLOR ([id number]) [facility] ([facility]) [address] [place] [address] Platelets (Bld) [#/Vol] 246 x10*3/uL Normal 150-450 [facility] Comment on above: Performed By: #### 4 537-7 #### EMANUEL FLOR ([id number]) [facility] ([facility]) [address] [place] [address] RBC (Bld) [#/Vol] 4.38 x10*6/uL Low 4.50-5.90 [facility] Comment on above: Performed By: #### 4 537-7 #### EMANUEL FLOR ([id number]) [facility] ([facility]) [address] [place] [address] WBC (Bld) [#/Vol] 12.6 x10*3/uL High 4.4-11.3 [facility] Comment on above: Performed By: #### 4 537-7 #### EMANUEL FLOR ([id number]) [facility] ([facility]) [address] [place] [address] Glucose Test strip manual (B ld) [Mass/Vol]on 10-08-2024 Glucose [Mass/Vol] 199 mg/dL High 74 - 99 mg/dL [facility] Interpretation and review of laboratory results Abnormal [facility] Glucose [Mass/Vol] 199 mg/dL High 74-99 [facility] Comment on above: Performed By: #### 4 537-7 #### EMANUEL FLOR ([id number]) [facility] ([facility]) [address] [place] [address] Glucose [Mass/Vol] 148 mg/dL High 74 - 99 mg/dL [facility] Interpretation and review of laboratory results Abnormal [facility] Glucose [Mass/Vol] 148 mg/dL High 74-99 [facility] Comment on above: Performed By: #### 4 537-7 #### EMANUEL FLOR ([id number]) [facility] ([facility]) [address] [place], [place] [id number] Magnesiumon 10-08-2024 Magnesium [Mass/Vol] 2.23 mg/dL 1.60 - 2.40 mg/dL [facility] Magnesium [Mass/Vol] 2.23 mg/dL Normal 1.60-2.40 [facility] Comment on above: Performed By: #### 4 537-7 #### EMANUEL FLOR ([id number]) [facility] ([facility]) [address] [place] [address] Magnesium [Mass/Vol]on 10-08 Interpretation and review of laboratory results Normal [facility] No Panel Informationon 10-08 [facility] Renal function 2000 panelon 10-08-2024 Albumin BCP dye [Mass/Vol] 3 g/dL Low 3.4 - 5.0 g/dL [facility] Anion gap [Moles/Vol] 13 mmol/L 10 - 2 0 mmol/L [facility] Calcium [Mass/Vol] 8.5 mg/dL Low 8.6 - 10. 6 mg/dL [facility] Chloride [Moles/Vol] 106 mmol/L 98 - 10 7 mmol/L [facility] CO2 [Moles/Vol] 26 mmol/L 21 - 32 mmol/L [facility] Creatinine [Mass/Vol] 0.78 mg/dL 0.50 - 1.30 mg/dL [facility] GFR/1.73 sq M.predicted among non-blacks MDRD (S/P/Bld) [Vol rate/Area] 90 mL/min/{1.73_m2} - PINF [facility] Glucose [Mass/Vol] 188 mg/dL High 74 - 99 mg/dL [facility] Interpretation and review of laboratory results Abnormal [facility] Phosphate [Mass/Vol] 2.8 mg/dL 2.5 - 4 .9 mg/dL [facility] Potassium [Moles/Vol] 3.9 mmol/L 3.5 - 5.3 mmol/L [facility] Sodium [Moles/Vol] 141 mmol/L 136 - 145 mmol/L [facility] Urea nitrogen [Mass/Vol] 15 mg/dL 6 - 23 mg/dL [facility] Albumin BCP dye [Mass/Vol] 3.0 g/dL Low 3.4-5.0 [facility] Comment on above: Performed By: #### 4 537-7 #### EMANUEL FLOR ([id number]) [facility] ([facility]) [address] [place] [address] Anion gap [Moles/Vol] 13 mmol/L Normal 10-20 [facility] Comment on above: Performed By: #### 4 537-7 #### EMANUEL FLOR ([id number]) [facility] ([facility]) [address] [place] [address]89 Calcium [Mass/Vol] 8.5 mg/dL Low 8.6-10.6 [facility] Comment on above: Performed By: #### 4 537-7 #### EMANUEL FLOR ([id number]) [facility] ([facility]) [address] [place] [address] 62951 Chloride [Moles/Vol] 106 mmol/L Normal 98-107 [facility] Comment on above: Performed By: #### 4 537-7 #### EMANUEL FLOR ([id number]) [facility] ([facility]) [address] [place] [address] 45746 CO2 [Moles/Vol] 26 mmol/L Normal 21-32 [facility] Comment on above: Performed By: #### 4 537-7 #### EMANUEL FLOR ([id number]) [facility] ([facility]) [address] [place] [address] 03854 Creatinine [Mass/Vol] 0.78 mg/dL Normal 0.50-1.30 [facility] Comment on above: Performed By: #### 4 537-7 #### EMANUEL FLOR ([id number]) [facility] ([facility]) [address] [place] [address] 93521 Glomerular filtration rate/1.73 sq M.predicted 90 mL/min/1.73m*2 Normal >60 [facility] Comment on above: Result Comment: Calc ulations of estimated GFR are performed using the 2020 CKD-EPI Study Refit equation without the race variable for the IDMS-Traceable creatinine methods. https://jasn.asnjournals.org/content//ASN.96872 80340 Performed By: #### 4 537-7 #### EMANUEL FLOR ([id number]) [facility] ([facility]) [address] [place] [address] 16783 Glucose [Mass/Vol] 188 mg/dL High 74-99 [facility] Comment on above: Performed By: #### 4 537-7 #### EMANUEL FLOR ([id number]) [facility] ([facility]) [address] [place] [address] 34468 Phosphate [Mass/Vol] 2.8 mg/dL Normal 2.5-4.9 [facility] Comment on above: Result Comment: The performance characteristics of phosphorus testing in heparinized plasma have been validated by the individual laboratory site where testing is performed. Testing on heparinized plasma is not approved by the FDA; however, such approval is not necessary. Performed By: #### 4 537-7 #### EMANUEL FLOR ([id number]) [facility] ([facility]) [address] [place] [address] 00189 Potassium [Moles/Vol] 3.9 mmol/L Normal 3.5-5.3 [facility] Comment on above: Performed By: #### 4 537-7 #### EMANUEL FLOR ([id number]) [facility] ([facility]) [address] [place] [address] 55646 Sodium [Moles/Vol] 141 mmol/L Normal 136-145 [facility] Comment on above: Performed By: #### 4 537-7 #### EMANUEL FLOR ([id number]) [facility] ([facility]) [address] [place] [address] 92641 Urea nitrogen [Mass/Vol] 15 mg/dL Normal 6-23 [facility] Comment on above: Performed By: #### 4 537-7 #### EMANUEL FLOR ([id number]) [facility] ([facility]) [address] [place] [address] 76625 XR CHEST 1 VIEWon 10-08-2024 XR CHEST 1 VIEW Interpreted By: Robbin Giraldo, STUDY: XR CHEST 1 VIEW; 10/08/2024 4:03 am INDICATION: Signs/Symptoms:esophag eal perf. COMPARISON: 10/07/2024 ACCESSION NUMBER(S): [id number] ORDERING CLINICIAN: CRISTOBAL DUNBAR FINDINGS: AP radiograph of the chest was provided. Esophageal stent is again noted and is unchanged in position. Left-sided pacemaker generator with biventricular leads is again noted. CARDIOMEDIASTINAL SILHOUETTE: Cardiomediastinal silhouette is large but stable in size and configuration. LUNGS: There is no acute consolidation. Previously noted changes of chronic lung disease are stable. Minimal basal atelectasis is unchanged. No gross pleural abnormality is seen. ABDOMEN: No remarkable upper abdominal findings. Minimal residual pneumoperitoneum is again noted. BONES: No acute osseous changes. IMPRESSION: 1. No significant interval change. MACRO: None Signed by: Robbin Giraldo 10/08/2024 1:05 PM Dictation workstation: [id number] Normal [facility] CBC W Auto Differential pane l (Bld)on 10-07-2024 Basophils (Bld) [#/Vol] 0.06 10*3/uL [facility] Basophils/100 WBC (Bld) 0.5 % 0.0 - 2.0 % [facility] Eosinophils (Bld) [#/Vol] 0.32 10*3/uL [facility] Eosinophils/100 WBC (Bld) 2.9 % 0.0 - 6.0 % [facility] Erythrocyte distribution width (RBC) [Ratio] 15.5 % High 11.5 - 14.5 % [facility] Hematocrit (Bld) [Volume fraction] 49.7 % 41.0 - 52.0 % [facility] Hemoglobin (Bld) [Mass/Vol] 15.6 g/dL 13.5 - 17.5 g/dL [facility] Immature granulocytes (Bld) [#/Vol] 0.1 10*3/uL [facility] Immature granulocytes/100 WBC (Bld) 0.9 % 0.0 - 0.9 % [facility] Interpretation and review of laboratory results Abnormal [facility] Lymphocytes (Bld) [#/Vol] 2.02 10*3/uL [facility] Lymphocytes/100 WBC (Bld) 18.4 % 13.0 - 44.0 % [facility] MCH (RBC) [Entitic mass] 31.3 pg 26.0 - 34.0 pg [facility] MCHC (RBC) [Mass/Vol] 31.4 g/dL Low 32.0 - 36.0 g/dL [facility] MCV (RBC) [Entitic vol] 100 fL 80 - 100 fL [facility] Monocytes (Bld) [#/Vol] 0.57 10*3/uL [facility] Monocytes/100 WBC (Bld) 5.2 % 2.0 - 10.0 % [facility] Neutrophils (Bld) [#/Vol] 7.9 10*3/uL High [facility] Neutrophils/100 WBC (Bld) 72.1 % 40.0 - 80.0 % [facility] Nucleated RBC/100 WBC (Bld) [Ratio] 0 % [facility] Platelets (Bld) [#/Vol] 271 10*3/uL [facility] RBC (Bld) [#/Vol] 4.99 10*6/uL [facility] WBC (Bld) [#/Vol] 11 10*3/uL [facility] Basophils (Bld) [#/Vol] 0.06 x10*3/uL Normal 0.00-0.10 [facility] Comment on above: Performed By: #### 4 537-7 #### EMANUEL FLOR ([id number]) [facility] ([facility]) [address] [place] [address] 71563 Basophils/100 WBC (Bld) 0.5 % Normal 0.0-2.0 [facility] Comment on above: Performed By: #### 4 537-7 #### EMANUEL FLOR ([id number]) [facility] ([facility]) [address] [place] [address] 12188 Eosinophils (Bld) [#/Vol] 0.32 x10*3/uL Normal 0.00-0.40 [facility] Comment on above: Performed By: #### 4 537-7 #### EMANUEL FLOR ([id number]) [facility] ([facility]) [address] [place] [address] 29435 Eosinophils/100 WBC (Bld) 2.9 % Normal 0.0-6.0 [facility] Comment on above: Performed By: #### 4 537-7 #### EMANUEL FLOR ([id number]) [facility] ([facility]) [address] [place] [address] 21143 Erythrocyte distribution width (RBC) [Ratio] 15.5 % High 11.5-14.5 [facility] Comment on above: Performed By: #### 4 537-7 #### EMANUEL FLOR ([id number]) [facility] ([facility]) [address] [place] [address] 63798 Hematocrit (Bld) [Volume fraction] 49.7 % Normal 41.0-52.0 [facility] Comment on above: Performed By: #### 4 537-7 #### EMANUEL FLOR ([id number]) [facility] ([facility]) [address] [place] [address] 12759 Hemoglobin (Bld) [Mass/Vol] 15.6 g/dL Normal 13.5-17.5 [facility] Comment on above: Performed By: #### 4 537-7 #### EMANUEL FLOR ([id number]) [facility] ([facility]) [address] [place] [address] 10730 Immature granulocytes (Bld) [#/Vol] 0.10 x10*3/uL Normal 0.00-0.50 [facility] Comment on above: Performed By: #### 4 537-7 #### EMANUEL FLOR ([id number]) [facility] ([facility]) [address] [place] [address] 53154 Immature granulocytes/100 WBC (Bld) 0.9 % Normal 0.0-0.9 [facility] Comment on above: Result Comment: Kathy ture Granulocyte Count (IG) includes promyelocytes, myelocytes and metamyelocytes but does not include bands. Percent differential counts (%) should be interpreted in the context of the absolute cell counts (cells/UL). Performed By: #### 4 537-7 #### EMANUEL FLOR ([id number]) [facility] ([facility]) [address] [place] [address] 72740 Lymphocytes (Bld) [#/Vol] 2.02 x10*3/uL Normal 0.80-3.00 [facility] Comment on above: Performed By: #### 4 537-7 #### EMANUEL FLOR ([id number]) [facility] ([facility]) [address] [place] [address] 22827 Lymphocytes/100 WBC (Bld) 18.4 % Normal 13.0-44.0 [facility] Comment on above: Performed By: #### 4 537-7 #### EMANUEL FLOR ([id number]) [facility] ([facility]) [address] [place] [address] 38885 MCH (RBC) [Entitic mass] 31.3 pg Normal 26.0-34.0 [facility] Comment on above: Performed By: #### 4 537-7 #### EMANUEL FLOR ([id number]) [facility] ([facility]) [address] [place] [address] 95209 MCHC (RBC) [Mass/Vol] 31.4 g/dL Low 32.0-36.0 [facility] Comment on above: Performed By: #### 4 537-7 #### EMANUEL FLOR ([id number]) [facility] ([facility]) [address] [place] [address] 81894 MCV (RBC) [Entitic vol] 100 fL Normal 80-100 [facility] Comment on above: Performed By: #### 4 537-7 #### EMANUEL FLOR ([id number]) [facility] ([facility]) [address] [place] [address] 70343 Monocytes (Bld) [#/Vol] 0.57 x10*3/uL Normal 0.05-0.80 [facility] Comment on above: Performed By: #### 4 537-7 #### EMANUEL FLOR ([id number]) [facility] ([facility]) [address] [place] [address] 12288 Monocytes/100 WBC (Bld) 5.2 % Normal 2.0-10.0 [facility] Comment on above: Performed By: #### 4 537-7 #### EMANUEL FLOR ([id number]) [facility] ([facility]) [address] [place] [address] 61434 Neutrophils (Bld) [#/Vol] 7.90 x10*3/uL High 1.60-5.50 [facility] Comment on above: Result Comment: Perc ent differential counts (%) should be interpreted in the context of the absolute cell counts (cells/uL). Performed By: #### 4 537-7 #### EMANUEL FLOR ([id number]) [facility] ([facility]) [address] [place] [address] 27813 Neutrophils/100 WBC (Bld) 72.1 % Normal 40.0-80.0 [facility] Comment on above: Performed By: #### 4 537-7 #### EMANUEL FLOR ([id number]) [facility] ([facility]) [address] [place] [address] 13589 Nucleated RBC/100 WBC (Bld) [Ratio] 0.0 /100 WBCs Normal 0.0-0.0 [facility] Comment on above: Performed By: #### 4 537-7 #### EMANUEL FLOR ([id number]) [facility] ([facility]) [address] [place] [address] 45054 Platelets (Bld) [#/Vol] 271 x10*3/uL Normal 150-450 [facility] Comment on above: Performed By: #### 4 537-7 #### EMANUEL FLOR ([id number]) [facility] ([facility]) [address] [place] [address] 20523 RBC (Bld) [#/Vol] 4.99 x10*6/uL Normal 4.50-5.90 [facility] Comment on above: Performed By: #### 4 537-7 #### EMANUEL FLOR ([id number]) [facility] ([facility]) [address] [place] [address] 70971 WBC (Bld) [#/Vol] 11.0 x10*3/uL Normal 4.4-11.3 [facility] Comment on above: Performed By: #### 4 537-7 #### EMANUEL FLOR ([id number]) [facility] ([facility]) [address] [place] [address] Glucose Test strip manual (B ld) [Mass/Vol]on 10-07-2024 Glucose [Mass/Vol] 150 mg/dL High 74 - 99 mg/dL [facility] Interpretation and review of laboratory results Abnormal [facility] Glucose [Mass/Vol] 150 mg/dL High 74-99 [facility] Comment on above: Performed By: #### 4 537-7 #### EMANUEL FLOR ([id number]) [facility] ([facility]) [address] [place] [address] Glucose [Mass/Vol] 183 mg/dL High 74 - 99 mg/dL [facility] Interpretation and review of laboratory results Abnormal [facility] Glucose [Mass/Vol] 183 mg/dL High 74-99 [facility] Comment on above: Performed By: #### 4 537-7 #### EMANUEL FLOR ([id number]) [facility] ([facility]) [address] [place] [address] Glucose [Mass/Vol] 178 mg/dL High 74 - 99 mg/dL [facility] Interpretation and review of laboratory results Abnormal [facility] Glucose [Mass/Vol] 178 mg/dL High 74-99 [facility] Comment on above: Performed By: #### 4 537-7 #### EMANUEL FLOR ([id number]) [facility] ([facility]) [address] [place] [address] Guidance for placement of GJ -tube in Gastrointestinal tract upperon 10-07-2024 [facility] MMODAL U[facility] MMODAL [facility] Work Phone: Guidance for placement of GJ -tube in Gastrointestinal tract upperOrdered By: Reji Mcqueen on 10-07-2024 [facility] Work Phone: Magnesiumon 10-07-2024 Magnesium [Mass/Vol] 2.43 mg/dL High 1.60 - 2.40 mg/dL [facility] Magnesium [Mass/Vol] 2.43 mg/dL High 1.60-2.40 [facility] Comment on above: Performed By: #### 4 537-7 #### EMANUEL FLOR ([id number]) [facility] ([facility]) [address] [place] [address] No Panel Informationon 10-07 Interpretation and review of laboratory results Abnormal [facility] Renal function 2000 panelon 10-07-2024 Albumin BCP dye [Mass/Vol] 3.4 g/dL 3.4 - 5.0 g/dL [facility] Anion gap [Moles/Vol] 16 mmol/L 10 - 2 0 mmol/L [facility] Calcium [Mass/Vol] 9.1 mg/dL 8.6 - 10. 6 mg/dL [facility] Chloride [Moles/Vol] 104 mmol/L 98 - 10 7 mmol/L [facility] CO2 [Moles/Vol] 30 mmol/L 21 - 32 mmol/L [facility] Creatinine [Mass/Vol] 0.85 mg/dL 0.50 - 1.30 mg/dL [facility] GFR/1.73 sq M.predicted among non-blacks MDRD (S/P/Bld) [Vol rate/Area] 87 mL/min/{1.73_m2} - PINF [facility] Glucose [Mass/Vol] 170 mg/dL High 74 - 99 mg/dL [facility] Phosphate [Mass/Vol] 3.3 mg/dL 2.5 - 4 .9 mg/dL [facility] Potassium [Moles/Vol] 3.7 mmol/L 3.5 - 5.3 mmol/L [facility] Sodium [Moles/Vol] 146 mmol/L High 136 - 145 mmol/L [facility] Urea nitrogen [Mass/Vol] 16 mg/dL 6 - 23 mg/dL [facility] Albumin BCP dye [Mass/Vol] 3.4 g/dL Normal 3.4-5.0 [facility] Comment on above: Performed By: #### 4 537-7 #### EMANUEL FLOR ([id number]) [facility] ([facility]) [address] [place] [address] 42083 Anion gap [Moles/Vol] 16 mmol/L Normal 10-20 [facility] Comment on above: Performed By: #### 4 537-7 #### EMANUEL FLOR ([id number]) [facility] ([facility]) [address] [place] [address] 57134 Calcium [Mass/Vol] 9.1 mg/dL Normal 8.6-10.6 [facility] Comment on above: Performed By: #### 4 537-7 #### EMANUEL FLOR ([id number]) [facility] ([facility]) [address] [place] [address] 88601 Chloride [Moles/Vol] 104 mmol/L Normal 98-107 [facility] Comment on above: Performed By: #### 4 537-7 #### EMANUEL FLOR ([id number]) [facility] ([facility]) [address] [place] [address] 55211 CO2 [Moles/Vol] 30 mmol/L Normal 21-32 [facility] Comment on above: Performed By: #### 4 537-7 #### EMANUEL FLOR ([id number]) [facility] ([facility]) [address] [place] [address] 19388 Creatinine [Mass/Vol] 0.85 mg/dL Normal 0.50-1.30 [facility] Comment on above: Performed By: #### 4 537-7 #### EMANUEL FLOR ([id number]) [facility] ([facility]) [address] [place] [address] 02433 Glomerular filtration rate/1.73 sq M.predicted 87 mL/min/1.73m*2 Normal >60 [facility] Comment on above: Result Comment: Calc ulations of estimated GFR are performed using the 2020 CKD-EPI Study Refit equation without the race variable for the IDMS-Traceable creatinine methods. https://jasn.asnjournals.org/content//ASN.50674 26275 Performed By: #### 4 537-7 #### EMANUEL FLOR ([id number]) [facility] ([facility]) [address] [place] [address] 35225 Glucose [Mass/Vol] 170 mg/dL High 74-99 [facility] Comment on above: Performed By: #### 4 537-7 #### EMANUEL FLOR ([id number]) [facility] ([facility]) [address] [place] [address] 74999 Phosphate [Mass/Vol] 3.3 mg/dL Normal 2.5-4.9 [facility] Comment on above: Result Comment: MILD HEMOLYSIS DETECTED. The result may be falsely elevated due to hemolysis or other interferents. Clinical correlation is recommended. Repeat testing may be considered. The performance characteristics of phosphorus testing in heparinized plasma have been validated by the individual laboratory site where testing is performed. Testing on heparinized plasma is not approved by the FDA; however, such approval is not necessary. Performed By: #### 4 537-7 #### EMANUEL FLOR ([id number]) [facility] ([facility]) [address] [place] [address] 04167 Potassium [Moles/Vol] 3.7 mmol/L Normal 3.5-5.3 [facility] Comment on above: Result Comment: MILD HEMOLYSIS DETECTED. The result may be falsely elevated due to hemolysis or other interferents. Clinical correlation is recommended. Repeat testing may be considered. Performed By: #### 4 537-7 #### EMANUEL FLOR ([id number]) [facility] ([facility]) [address] [place] [address] 56324 Sodium [Moles/Vol] 146 mmol/L High 136-145 [facility] Comment on above: Performed By: #### 4 537-7 #### EMANUEL FLOR ([id number]) [facility] ([facility]) [address] [place] [address] 66177 Urea nitrogen [Mass/Vol] 16 mg/dL Normal 6-23 [facility] Comment on above: Performed By: #### 4 537-7 #### EMANUEL FLOR ([id number]) [facility] ([facility]) [address] [place] [address] XR CHEST 1 VIEWon 10-07-2024 XR CHEST 1 VIEW Interpreted By: Robbin Giraldo, STUDY: XR CHEST 1 VIEW; 10/07/2024 4:37 am INDICATION: Signs/Symptoms:esophag eal perf. COMPARISON: 10/06/2024 ACCESSION NUMBER(S): [id number] ORDERING CLINICIAN: CRISTOBAL DUNBAR FINDINGS: AP radiograph of the chest was provided. Pacemaker generator on the left is again noted with biventricular leads in stable position. Esophageal stent is unchanged. CARDIOMEDIASTINAL SILHOUETTE: Cardiomediastinal silhouette is large but stable in size and configuration. LUNGS: There is no acute consolidation. Changes of chronic lung disease apparent with scarring. Minimal basal atelectatic changes remain. No pleural fluid collection is noted. ABDOMEN: Small residual pneumoperitoneum is apparent with subdiaphragmatic air visible on the right. BONES: No acute osseous changes. IMPRESSION: 1. No significant interval change. MACRO: None Signed by: Robbin Giraldo 10/07/2024 2:47 PM Dictation workstation: [id number] Normal [facility] XR Chest Single viewon 10-07 [facility] MMODAL U[facility] MMODAL [facility] Work Phone: [facility] Work Phone: Radiology Study observation (narrative) [facility] Work Phone: CBC W Auto Differential pane l (Bld)on 10-06-2024 Basophils (Bld) [#/Vol] 0.03 10*3/uL [facility] Basophils/100 WBC (Bld) 0.3 % 0.0 - 2.0 % [facility] Eosinophils (Bld) [#/Vol] 0.5 10*3/uL High [facility] Eosinophils/100 WBC (Bld) 4.4 % 0.0 - 6.0 % [facility] Erythrocyte distribution width (RBC) [Ratio] 15.4 % High 11.5 - 14.5 % [facility] Hematocrit (Bld) [Volume fraction] 44.9 % 41.0 - 52.0 % [facility] Hemoglobin (Bld) [Mass/Vol] 14.3 g/dL 13.5 - 17.5 g/dL [facility] Immature granulocytes (Bld) [#/Vol] 0.09 10*3/uL [facility] Immature granulocytes/100 WBC (Bld) 0.8 % 0.0 - 0.9 % [facility] Interpretation and review of laboratory results Abnormal [facility] Lymphocytes (Bld) [#/Vol] 2.2 10*3/uL [facility] Lymphocytes/100 WBC (Bld) 19.2 % 13.0 - 44.0 % [facility] MCH (RBC) [Entitic mass] 30.5 pg 26.0 - 34.0 pg [facility] MCHC (RBC) [Mass/Vol] 31.8 g/dL Low 32.0 - 36.0 g/dL [facility] MCV (RBC) [Entitic vol] 96 fL 80 - 100 fL [facility] Monocytes (Bld) [#/Vol] 0.57 10*3/uL [facility] Monocytes/100 WBC (Bld) 5 % 2.0 - 10.0 % [facility] Neutrophils (Bld) [#/Vol] 8.09 10*3/uL High [facility] Neutrophils/100 WBC (Bld) 70.3 % 40.0 - 80.0 % [facility] Nucleated RBC/100 WBC (Bld) [Ratio] 0 % [facility] Platelets (Bld) [#/Vol] 228 10*3/uL [facility] RBC (Bld) [#/Vol] 4.69 10*6/uL [facility] WBC (Bld) [#/Vol] 11.5 10*3/uL High [facility] Basophils (Bld) [#/Vol] 0.03 x10*3/uL Normal 0.00-0.10 [facility] Comment on above: Performed By: #### 4 537-7 #### CASTELLANOS CHACHO ([id number]) [facility] ([facility]) [address] [place] [address] Basophils/100 WBC (Bld) 0.3 % Normal 0.0-2.0 [facility] Comment on above: Performed By: #### 4 537-7 #### EMANUEL FLOR ([id number]) [facility] ([facility]) [address] [place] [address] 21309 Eosinophils (Bld) [#/Vol] 0.50 x10*3/uL High 0.00-0.40 [facility] Comment on above: Performed By: #### 4 537-7 #### EMANUEL FLOR ([id number]) [facility] ([facility]) [address] [place] [address] 49243 Eosinophils/100 WBC (Bld) 4.4 % Normal 0.0-6.0 [facility] Comment on above: Performed By: #### 4 537-7 #### EMANUEL FLOR ([id number]) [facility] ([facility]) [address] [place] [address] 26741 Erythrocyte distribution width (RBC) [Ratio] 15.4 % High 11.5-14.5 [facility] Comment on above: Performed By: #### 4 537-7 #### EMANUEL FLOR ([id number]) [facility] ([facility]) [address] [place] [address] 84587 Hematocrit (Bld) [Volume fraction] 44.9 % Normal 41.0-52.0 [facility] Comment on above: Performed By: #### 4 537-7 #### EMANUEL FLOR ([id number]) [facility] ([facility]) [address] [place] [address] 31852 Hemoglobin (Bld) [Mass/Vol] 14.3 g/dL Normal 13.5-17.5 [facility] Comment on above: Performed By: #### 4 537-7 #### EMANUEL FLOR ([id number]) [facility] ([facility]) [address] [place] [address] 94307 Immature granulocytes (Bld) [#/Vol] 0.09 x10*3/uL Normal 0.00-0.50 [facility] Comment on above: Performed By: #### 4 537-7 #### EMANUEL FLOR ([id number]) [facility] ([facility]) [address] [place] [address] 08341 Immature granulocytes/100 WBC (Bld) 0.8 % Normal 0.0-0.9 [facility] Comment on above: Result Comment: Kathy ture Granulocyte Count (IG) includes promyelocytes, myelocytes and metamyelocytes but does not include bands. Percent differential counts (%) should be interpreted in the context of the absolute cell counts (cells/UL). Performed By: #### 4 537-7 #### EMANUEL FLOR ([id number]) [facility] ([facility]) [address] [place] [address] 86675 Lymphocytes (Bld) [#/Vol] 2.20 x10*3/uL Normal 0.80-3.00 [facility] Comment on above: Performed By: #### 4 537-7 #### EMANUEL FLOR ([id number]) [facility] ([facility]) [address] [place] [address] 01258 Lymphocytes/100 WBC (Bld) 19.2 % Normal 13.0-44.0 [facility] Comment on above: Performed By: #### 4 537-7 #### EMANUEL FLOR ([id number]) [facility] ([facility]) [address] [place] [address] 96688 MCH (RBC) [Entitic mass] 30.5 pg Normal 26.0-34.0 [facility] Comment on above: Performed By: #### 4 537-7 #### EMANUEL FLOR ([id number]) [facility] ([facility]) [address] [place] [address] 65177 MCHC (RBC) [Mass/Vol] 31.8 g/dL Low 32.0-36.0 [facility] Comment on above: Performed By: #### 4 537-7 #### EMANUEL FLOR ([id number]) [facility] ([facility]) [address] [place] [address] 25630 MCV (RBC) [Entitic vol] 96 fL Normal 80-100 [facility] Comment on above: Performed By: #### 4 537-7 #### EMANUEL FLOR ([id number]) [facility] ([facility]) [address] [place] [address] 36785 Monocytes (Bld) [#/Vol] 0.57 x10*3/uL Normal 0.05-0.80 [facility] Comment on above: Performed By: #### 4 537-7 #### EMANUEL FLOR ([id number]) [facility] ([facility]) [address] [place] [address] 18607 Monocytes/100 WBC (Bld) 5.0 % Normal 2.0-10.0 [facility] Comment on above: Performed By: #### 4 537-7 #### EMANUEL FLOR ([id number]) [facility] ([facility]) [address] [place] [address] 49121 Neutrophils (Bld) [#/Vol] 8.09 x10*3/uL High 1.60-5.50 [facility] Comment on above: Result Comment: Perc ent differential counts (%) should be interpreted in the context of the absolute cell counts (cells/uL). Performed By: #### 4 537-7 #### EMANUEL FLOR ([id number]) [facility] ([facility]) [address] [place] [address] 57778 Neutrophils/100 WBC (Bld) 70.3 % Normal 40.0-80.0 [facility] Comment on above: Performed By: #### 4 537-7 #### EMANUEL FLOR ([id number]) [facility] ([facility]) [address] [place] [address] 81484 Nucleated RBC/100 WBC (Bld) [Ratio] 0.0 /100 WBCs Normal 0.0-0.0 [facility] Comment on above: Performed By: #### 4 537-7 #### EMANUEL FLOR ([id number]) [facility] ([facility]) [address] [place] [address] 11471 Platelets (Bld) [#/Vol] 228 x10*3/uL Normal 150-450 [facility] Comment on above: Performed By: #### 4 537-7 #### EMANUEL FLOR ([id number]) [facility] ([facility]) [address] [place] [address] RBC (Bld) [#/Vol] 4.69 x10*6/uL Normal 4.50-5.90 [facility] Comment on above: Performed By: #### 4 537-7 #### EMANUEL FLOR ([id number]) [facility] ([facility]) [address] [place] [address] WBC (Bld) [#/Vol] 11.5 x10*3/uL High 4.4-11.3 [facility] Comment on above: Performed By: #### 4 537-7 #### EMANUEL FLOR ([id number]) [facility] ([facility]) [facility] [place] [address] Cardiac Device Check - Surge araceli 10-06-2024 [facility] Work Phone: ECG 12 leadOrdered By: Cesario Tracey on 10-06-2024 Atrial Rate 277 BPM [facility] Work Phone: Q Onset 202 [facility] Work Phone: QRS Count 10 beats [facility] Work Phone: QRS Duration 228 ms [facility] Work Phone: QT Interval 548 [facility] Work Phone: QTC Calculation(Bazett) 551 [facility] Work Phone: QTC Fredericia 550 [facility] Work Phone: R Barnhart -44 degrees [facility] Work Phone: T Barnhart 5 degrees [facility] Work Phone: T Offset 476 [facility] Work Phone: Ventricular Rate 61 BPM [facility] Work Phone: [facility] Work Phone: ECG 12 leadon 10-06-2024 [facility] Work Phone: Glucose Test strip manual (B ld) [Mass/Vol]on 10-06-2024 Glucose [Mass/Vol] 213 mg/dL High 74 - 99 mg/dL [facility] Interpretation and review of laboratory results Abnormal [facility] Glucose [Mass/Vol] 213 mg/dL High 74-99 [facility] Comment on above: Performed By: #### 4 537-7 #### EMANUEL FLOR ([id number]) [facility] ([facility]) [address] [place] [address] 49614 Glucose [Mass/Vol] 175 mg/dL High 74 - 99 mg/dL [facility] Interpretation and review of laboratory results Abnormal [facility] Glucose [Mass/Vol] 175 mg/dL High 74-99 [facility] Comment on above: Performed By: #### 4 537-7 #### EMANUEL FLOR ([id number]) [facility] ([facility]) [address] [place] [address] 55938 Glucose [Mass/Vol] 154 mg/dL High 74 - 99 mg/dL [facility] Interpretation and review of laboratory results Abnormal [facility] Glucose [Mass/Vol] 154 mg/dL High 74-99 [facility] Comment on above: Performed By: #### 4 537-7 #### EMANUEL FLOR ([id number]) [facility] ([facility]) [address] [place] [address] 53410 Glucose [Mass/Vol] 121 mg/dL High 74 - 99 mg/dL [facility] Interpretation and review of laboratory results Abnormal [facility] Glucose [Mass/Vol] 121 mg/dL High 74-99 [facility] Comment on above: Performed By: #### 4 537-7 #### EMANUEL FLOR ([id number]) [facility] ([facility]) [address] [place] [address] 85534 Glucose [Mass/Vol] 110 mg/dL High 74 - 99 mg/dL [facility] Interpretation and review of laboratory results Abnormal [facility] Glucose [Mass/Vol] 110 mg/dL High 74-99 [facility] Comment on above: Performed By: #### 4 537-7 #### EMANUEL FLOR ([id number]) [facility] ([facility]) [address] [place] [address] Magnesiumon 10-06-2024 Magnesium [Mass/Vol] 2.24 mg/dL 1.60 - 2.40 mg/dL [facility] Magnesium [Mass/Vol] 2.24 mg/dL Normal 1.60-2.40 [facility] Comment on above: Performed By: #### 4 537-7 #### EMANUEL FLOR ([id number]) [facility] ([facility]) [address] [place] [address] Magnesium [Mass/Vol]on 10-06 Interpretation and review of laboratory results Normal [facility] No Panel Informationon 10-06 [facility] Radiology Study observation (narrative) [facility] Work Phone: Renal function 2000 panelon 10-06-2024 Albumin BCP dye [Mass/Vol] 3.2 g/dL Low 3.4 - 5.0 g/dL [facility] Anion gap [Moles/Vol] 15 mmol/L 10 - 2 0 mmol/L [facility] Calcium [Mass/Vol] 8.6 mg/dL 8.6 - 10. 6 mg/dL [facility] Chloride [Moles/Vol] 107 mmol/L 98 - 10 7 mmol/L [facility] CO2 [Moles/Vol] 27 mmol/L 21 - 32 mmol/L [facility] Creatinine [Mass/Vol] 0.59 mg/dL 0.50 - 1.30 mg/dL [facility] eGFR - PINF [facility] Glucose [Mass/Vol] 118 mg/dL High 74 - 99 mg/dL [facility] Interpretation and review of laboratory results Abnormal [facility] Phosphate [Mass/Vol] 3.1 mg/dL 2.5 - 4 .9 mg/dL [facility] Potassium [Moles/Vol] 4 mmol/L 3.5 - 5.3 mmol/L [facility] Sodium [Moles/Vol] 145 mmol/L 136 - 145 mmol/L [facility] Urea nitrogen [Mass/Vol] 16 mg/dL 6 - 23 mg/dL [facility] Albumin BCP dye [Mass/Vol] 3.2 g/dL Low 3.4-5.0 [facility] Comment on above: Performed By: #### 4 537-7 #### EMANUEL FLOR ([id number]) [facility] ([facility]) [address] [place] [address] 47251 Anion gap [Moles/Vol] 15 mmol/L Normal 10-20 [facility] Comment on above: Performed By: #### 4 537-7 #### EMANUEL FLOR ([id number]) [facility] ([facility]) [address] [place] [address] 62201 Calcium [Mass/Vol] 8.6 mg/dL Normal 8.6-10.6 [facility] Comment on above: Performed By: #### 4 537-7 #### EMANUEL FLOR ([id number]) [facility] ([facility]) [address] [place] [address] 23459 Chloride [Moles/Vol] 107 mmol/L Normal 98-107 [facility] Comment on above: Performed By: #### 4 537-7 #### EMANUEL FLOR ([id number]) [facility] ([facility]) [address] [place] [address] 11934 CO2 [Moles/Vol] 27 mmol/L Normal 21-32 [facility] Comment on above: Performed By: #### 4 537-7 #### EMANUEL FLOR ([id number]) [facility] ([facility]) [address] [place] [address] 64482 Creatinine [Mass/Vol] 0.59 mg/dL Normal 0.50-1.30 [facility] Comment on above: Performed By: #### 4 537-7 #### EMANUEL FLOR ([id number]) [facility] ([facility]) [facility] [place] [address] GFR/1.73 sq M.predicted MDRD (S/P/Bld) [Vol rate/Area] mL/min/{1.73_m2} Normal >60 [facility] Comment on above: Result Comment: Calc ulations of estimated GFR are performed using the 2020 CKD-EPI Study Refit equation without the race variable for the IDMS-Traceable creatinine methods. https://jasn.asnjournals.org/content/early//ASN.60287 60727 Performed By: #### 4 537-7 #### EMANUEL FLOR ([id number]) [facility] ([facility]) [address] [place] [address] 24884 Glucose [Mass/Vol] 118 mg/dL High 74-99 [facility] Comment on above: Performed By: #### 4 537-7 #### EMANUEL FLOR ([id number]) [facility] ([facility]) [address] [place] [address] 75978 Phosphate [Mass/Vol] 3.1 mg/dL Normal 2.5-4.9 [facility] Comment on above: Result Comment: MILD HEMOLYSIS DETECTED. The result may be falsely elevated due to hemolysis or other interferents. Clinical correlation is recommended. Repeat testing may be considered. The performance characteristics of phosphorus testing in heparinized plasma have been validated by the individual laboratory site where testing is performed. Testing on heparinized plasma is not approved by the FDA; however, such approval is not necessary. Performed By: #### 4 537-7 #### EMANUEL FLOR ([id number]) [facility] ([facility]) [address] [place] [address] 21004 Potassium [Moles/Vol] 4.0 mmol/L Normal 3.5-5.3 [facility] Comment on above: Result Comment: MILD HEMOLYSIS DETECTED. The result may be falsely elevated due to hemolysis or other interferents. Clinical correlation is recommended. Repeat testing may be considered. Performed By: #### 4 537-7 #### EMANUEL CONTRERASCHAVO ([id number]) [facility] ([facility]) [address] [place] [address] Sodium [Moles/Vol] 145 mmol/L Normal 136-145 [facility] Comment on above: Performed By: #### 4 537-7 #### EMANUEL CONTRERASCHAVO ([id number]) [facility] ([facility]) [facility] [place] [address] Urea nitrogen [Mass/Vol] 16 mg/dL Normal 6-23 [facility] Comment on above: Performed By: #### 4 537-7 #### EMANUEL CONTRERASCHAVO ([id number]) [facility] ([facility]) [address] [place] [address] 47701 XR ABDOMEN 1 VIEWon 10-07-19 XR ABDOMEN 1 VIEW Interpreted By: Robbin Giraldo and Booth Cameron STUDY: XR ABDOMEN 1 VIEW; 10/06/2024 4:03 am INDICATION: Signs/Symptoms:Re-eval uate pneumoperitoneum. COMPARISON: XR ABDOMEN 1 VIEW 09/30/2024, CT ABDOMEN AND PELVIS WO CONTRAST 01/27/2020 ACCESSION NUMBER(S): [id number] ORDERING CLINICIAN: CRISTOBAL DUNBAR FINDINGS: Interval placement of G-tube, with catheter projecting over midline. Nonobstructive bowel gas pattern with diffusely opacified appearance of the large bowel. Limited evaluation of pneumoperitoneum on supine imaging, however no gross evidence of free air is noted. Visualized lungs are clear. Esophageal stent is visible. Osseous structures demonstrate no acute bony changes. IMPRESSION: 1. No evidence of pneumoperitoneum within limitation of supine imaging. 2. Nonspecific, nonobstructive bowel gas pattern. I personally reviewed the image(s)/study and interpretation by Sammy Wu MD (resident). MACRO: None Signed by: Robbin Giraldo 10/06/2024 4:29 PM Dictation workstation: [id number] Normal [facility] XR Abdomen Single viewon [facility] MM[facility]AL [facility] MMODAL [facility] Work Phone: [facility] Work Phone: XR CHEST 1 VIEWon 10-06-2024 XR CHEST 1 VIEW Interpreted By: Robbin Giraldo and Booth Cameron STUDY: XR CHEST 1 VIEW; 10/06/2024 4:03 am INDICATION: Signs/Symptoms:esophag eal perf. COMPARISON: XR CHEST 1 VIEW 10/05/2024, CT CHEST W IV CONTRAST 09/27/2024 ACCESSION NUMBER(S): [id number] ORDERING CLINICIAN: CRISTOBAL DUNBAR FINDINGS: AP radiograph of the chest was provided. Pacemaker/ICD device projects over the left chest wall with leads projecting over the base of the heart and cardiac apex. Visualization of esophageal stent. CARDIOMEDIASTINAL SILHOUETTE: Cardiomediastinal silhouette is stable in size and configuration. LUNGS: Mild blunting of the costophrenic angle bilaterally. No evidence of pneumothorax or pneumomediastinum. ABDOMEN: Minimal residual pneumoperitoneum visualized inferior to right hemidiaphragm. BONES: No acute osseous changes. IMPRESSION: 1. No evidence of pneumothorax or pneumomediastinum. 2. Minimal residual pneumoperitoneum visualized inferior to the right hemidiaphragm. 3. Medical devices as above. I personally reviewed the image(s)/study and interpretation by Sammy Wu MD (resident). MACRO: None Signed by: Robbin Giraldo 10/06/2024 4:29 PM Dictation workstation: [id number] [facility] XR Chest Single viewon 10-06 [facility] MM[facility]AL [facility] MM[facility]AL [facility] Work Phone: XR Chest Single viewOrdered By: Robbin Giraldo on 10-06-2024 [facility] Work Phone: CBC W Auto Differential pane l (Bld)on 10-05-2024 Basophils (Bld) [#/Vol] 0.05 10*3/uL [facility] Basophils/100 WBC (Bld) 0.4 % 0.0 - 2.0 % [facility] Eosinophils (Bld) [#/Vol] 0.56 10*3/uL High [facility] Eosinophils/100 WBC (Bld) 4.5 % 0.0 - 6.0 % [facility] Erythrocyte distribution width (RBC) [Ratio] 15.7 % High 11.5 - 14.5 % [facility] Hematocrit (Bld) [Volume fraction] 46.3 % 41.0 - 52.0 % [facility] Hemoglobin (Bld) [Mass/Vol] 14.6 g/dL 13.5 - 17.5 g/dL [facility] Immature granulocytes (Bld) [#/Vol] 0.1 10*3/uL [facility] Immature granulocytes/100 WBC (Bld) 0.8 % 0.0 - 0.9 % [facility] Interpretation and review of laboratory results Abnormal [facility] Lymphocytes (Bld) [#/Vol] 2.04 10*3/uL [facility] Lymphocytes/100 WBC (Bld) 16.3 % 13.0 - 44.0 % [facility] MCH (RBC) [Entitic mass] 31.1 pg 26.0 - 34.0 pg [facility] MCHC (RBC) [Mass/Vol] 31.5 g/dL Low 32.0 - 36.0 g/dL [facility] MCV (RBC) [Entitic vol] 99 fL 80 - 100 fL [facility] Monocytes (Bld) [#/Vol] 0.56 10*3/uL [facility] Monocytes/100 WBC (Bld) 4.5 % 2.0 - 10.0 % [facility] Neutrophils (Bld) [#/Vol] 9.17 10*3/uL High [facility] Neutrophils/100 WBC (Bld) 73.5 % 40.0 - 80.0 % [facility] Nucleated RBC/100 WBC (Bld) [Ratio] 0 % [facility] Platelets (Bld) [#/Vol] 243 10*3/uL [facility] RBC (Bld) [#/Vol] 4.69 10*6/uL [facility] WBC (Bld) [#/Vol] 12.5 10*3/uL [facility] Basophils (Bld) [#/Vol] 0.05 x10*3/uL Normal 0.00-0.10 [facility] Comment on above: Performed By: #### 4 537-7 #### EMANUEL FLOR ([id number]) [facility] ([facility]) [address] [place] [address] 82362 Basophils/100 WBC (Bld) 0.4 % Normal 0.0-2.0 [facility] Comment on above: Performed By: #### 4 537-7 #### EMANUEL FLOR ([id number]) [facility] ([facility]) [address] [place] [address] 05693 Eosinophils (Bld) [#/Vol] 0.56 x10*3/uL High 0.00-0.40 [facility] Comment on above: Performed By: #### 4 537-7 #### EMANUEL FLOR ([id number]) [facility] ([facility]) [address] [place] [address] 28107 Eosinophils/100 WBC (Bld) 4.5 % Normal 0.0-6.0 [facility] Comment on above: Performed By: #### 4 537-7 #### EMANUEL FLOR ([id number]) [facility] ([facility]) [address] [place] [address] 28122 Erythrocyte distribution width (RBC) [Ratio] 15.7 % High 11.5-14.5 [facility] Comment on above: Performed By: #### 4 537-7 #### EMANUEL FLOR ([id number]) [facility] ([facility]) [address] [place] [address] 32538 Hematocrit (Bld) [Volume fraction] 46.3 % Normal 41.0-52.0 [facility] Comment on above: Performed By: #### 4 537-7 #### EMANUEL FLOR ([id number]) [facility] ([facility]) [address] [place] [address] 88463 Hemoglobin (Bld) [Mass/Vol] 14.6 g/dL Normal 13.5-17.5 [facility] Comment on above: Performed By: #### 4 537-7 #### EMANUEL FLOR ([id number]) [facility] ([facility]) [address] [place] [address] 70738 Immature granulocytes (Bld) [#/Vol] 0.10 x10*3/uL Normal 0.00-0.50 [facility] Comment on above: Performed By: #### 4 537-7 #### EMANUEL FLOR ([id number]) [facility] ([facility]) [address] [place] [address] 34727 Immature granulocytes/100 WBC (Bld) 0.8 % Normal 0.0-0.9 [facility] Comment on above: Result Comment: Kathy ture Granulocyte Count (IG) includes promyelocytes, myelocytes and metamyelocytes but does not include bands. Percent differential counts (%) should be interpreted in the context of the absolute cell counts (cells/UL). Performed By: #### 4 537-7 #### EMANUEL FLOR ([id number]) [facility] ([facility]) [address] [place] [address] Lymphocytes (Bld) [#/Vol] 2.04 x10*3/uL Normal 0.80-3.00 [facility] Comment on above: Performed By: #### 4 537-7 #### EMANUEL FLOR ([id number]) [facility] ([facility]) [address] [place] [address] 31085 Lymphocytes/100 WBC (Bld) 16.3 % Normal 13.0-44.0 [facility] Comment on above: Performed By: #### 4 537-7 #### EMANUEL FLOR ([id number]) [facility] ([facility]) [address] [place] [address] 54312 MCH (RBC) [Entitic mass] 31.1 pg Normal 26.0-34.0 [facility] Comment on above: Performed By: #### 4 537-7 #### EMANUEL FLOR ([id number]) [facility] ([facility]) [address] [place] [address] 69517 MCHC (RBC) [Mass/Vol] 31.5 g/dL Low 32.0-36.0 [facility] Comment on above: Performed By: #### 4 537-7 #### EMANUEL FLOR ([id number]) [facility] ([facility]) [address] [place] [address] MCV (RBC) [Entitic vol] 99 fL Normal 80-100 [facility] Comment on above: Performed By: #### 4 537-7 #### EMANUEL FLOR ([id number]) [facility] ([facility]) [address] [place] [address] 23016 Monocytes (Bld) [#/Vol] 0.56 x10*3/uL Normal 0.05-0.80 [facility] Comment on above: Performed By: #### 4 537-7 #### EMANUEL FLOR ([id number]) [facility] ([facility]) [address] [place] [address] 19767 Monocytes/100 WBC (Bld) 4.5 % Normal 2.0-10.0 [facility] Comment on above: Performed By: #### 4 537-7 #### EMANUEL FLOR ([id number]) [facility] ([facility]) [address] [place] [address] 22979 Neutrophils (Bld) [#/Vol] 9.17 x10*3/uL High 1.60-5.50 [facility] Comment on above: Result Comment: Perc ent differential counts (%) should be interpreted in the context of the absolute cell counts (cells/uL). Performed By: #### 4 537-7 #### EMANUEL FLOR ([id number]) [facility] ([facility]) [address] [place] [address] 20228 Neutrophils/100 WBC (Bld) 73.5 % Normal 40.0-80.0 [facility] Comment on above: Performed By: #### 4 537-7 #### EMANUEL FLOR ([id number]) [facility] ([facility]) [address] [place] [address] 92590 Nucleated RBC/100 WBC (Bld) [Ratio] 0.0 /100 WBCs Normal 0.0-0.0 [facility] Comment on above: Performed By: #### 4 537-7 #### EMANUEL FLOR ([id number]) [facility] ([facility]) [address] [place] [address] 20223 Platelets (Bld) [#/Vol] 243 x10*3/uL Normal 150-450 [facility] Comment on above: Performed By: #### 4 537-7 #### EMANUEL FLOR ([id number]) [facility] ([facility]) [address] [place] [address] 87003 RBC (Bld) [#/Vol] 4.69 x10*6/uL Normal 4.50-5.90 [facility] Comment on above: Performed By: #### 4 537-7 #### EMANUEL FLOR ([id number]) [facility] ([facility]) [address] [place] [address] 41725 WBC (Bld) [#/Vol] 12.5 x10*3/uL High 4.4-11.3 [facility] Comment on above: Performed By: #### 4 537-7 #### EMANUEL FLOR ([id number]) [facility] ([facility]) [address] [place], [place] [id number] Glucose Test strip manual (B ld) [Mass/Vol]on 10-05-2024 Glucose [Mass/Vol] 136 mg/dL High 74 - 99 mg/dL [facility] Interpretation and review of laboratory results Abnormal [facility] Glucose [Mass/Vol] 136 mg/dL High 74-99 [facility] Comment on above: Performed By: #### 4 537-7 #### EMANUEL FLOR ([id number]) [facility] ([facility]) [address] [place] [address] 57911 Glucose [Mass/Vol] 169 mg/dL High 74 - 99 mg/dL [facility] Interpretation and review of laboratory results Abnormal [facility] Glucose [Mass/Vol] 169 mg/dL High 74-99 [facility] Comment on above: Performed By: #### 4 537-7 #### EMANUEL FLOR ([id number]) [facility] ([facility]) [address] [place] [address] 76785 Glucose [Mass/Vol] 150 mg/dL High 74 - 99 mg/dL [facility] Interpretation and review of laboratory results Abnormal [facility] Glucose [Mass/Vol] 150 mg/dL High 74-99 [facility] Comment on above: Performed By: #### 4 537-7 #### EMANUEL FLOR ([id number]) [facility] ([facility]) [address] [place] [address] 74731 Glucose [Mass/Vol] 143 mg/dL High 74 - 99 mg/dL [facility] Interpretation and review of laboratory results Abnormal [facility] Glucose [Mass/Vol] 143 mg/dL High 74-99 [facility] Comment on above: Performed By: #### 4 537-7 #### EMANUEL FLOR ([id number]) [facility] ([facility]) [address] [place] [address] 17523 Magnesiumon 10-05-2024 Magnesium [Mass/Vol] 2.25 mg/dL 1.60 - 2.40 mg/dL [facility] Magnesium [Mass/Vol] 2.25 mg/dL Normal 1.60-2.40 [facility] Comment on above: Performed By: #### 4 537-7 #### EMANUEL FLOR ([id number]) [facility] ([facility]) [address] [place] [address] 31257 Magnesium [Mass/Vol]on 10-05 Interpretation and review of laboratory results Normal [facility] No Panel Informationon 10-05 [facility] Renal function 2000 panelon 10-05-2024 Albumin BCP dye [Mass/Vol] 3 g/dL Low 3.4 - 5.0 g/dL [facility] Anion gap [Moles/Vol] 16 mmol/L 10 - 2 0 mmol/L [facility] Calcium [Mass/Vol] 8.8 mg/dL 8.6 - 10. 6 mg/dL [facility] Chloride [Moles/Vol] 108 mmol/L High 98 - 10 7 mmol/L [facility] CO2 [Moles/Vol] 26 mmol/L 21 - 32 mmol/L [facility] Creatinine [Mass/Vol] 0.64 mg/dL 0.50 - 1.30 mg/dL [facility] eGFR - PINF [facility] Glucose [Mass/Vol] 145 mg/dL High 74 - 99 mg/dL [facility] Interpretation and review of laboratory results Abnormal [facility] Phosphate [Mass/Vol] 2.6 mg/dL 2.5 - 4 .9 mg/dL [facility] Potassium [Moles/Vol] 3.9 mmol/L 3.5 - 5.3 mmol/L [facility] Sodium [Moles/Vol] 146 mmol/L High 136 - 145 mmol/L [facility] Urea nitrogen [Mass/Vol] 19 mg/dL 6 - 23 mg/dL [facility] Albumin BCP dye [Mass/Vol] 3.0 g/dL Low 3.4-5.0 [facility] Comment on above: Performed By: #### 4 537-7 #### EMANUEL FLOR ([id number]) [facility] ([facility]) [address] [place] [address] 93277 Anion gap [Moles/Vol] 16 mmol/L Normal 10-20 [facility] Comment on above: Performed By: #### 4 537-7 #### EMANUEL FLOR ([id number]) [facility] ([facility]) [address] [place] [address] 84760 Calcium [Mass/Vol] 8.8 mg/dL Normal 8.6-10.6 [facility] Comment on above: Performed By: #### 4 537-7 #### EMANUEL FLOR ([id number]) [facility] ([facility]) [address] [place] [address] 33590 Chloride [Moles/Vol] 108 mmol/L High 98-107 [facility] Comment on above: Performed By: #### 4 537-7 #### EMANUEL FLOR ([id number]) [facility] ([facility]) [address] [place] [address] 13399 CO2 [Moles/Vol] 26 mmol/L Normal 21-32 [facility] Comment on above: Performed By: #### 4 537-7 #### EMANUEL FLOR ([id number]) [facility] ([facility]) [facility] [place] [address] Creatinine [Mass/Vol] 0.64 mg/dL Normal 0.50-1.30 [facility] Comment on above: Performed By: #### 4 537-7 #### EMANUEL FLOR ([id number]) [facility] ([facility]) [facility] [place] [address] GFR/1.73 sq M.predicted MDRD (S/P/Bld) [Vol rate/Area] mL/min/{1.73_m2} Normal >60 [facility] Comment on above: Result Comment: Calc ulations of estimated GFR are performed using the 2020 CKD-EPI Study Refit equation without the race variable for the IDMS-Traceable creatinine methods. https://jasn.asnjournals.org/content/early//ASN.31326 59455 Performed By: #### 4 537-7 #### EMANUEL FLOR ([id number]) [facility] ([facility]) [address] [place] [address] 51905 Glucose [Mass/Vol] 145 mg/dL High 74-99 [facility] Comment on above: Performed By: #### 4 537-7 #### EMANUEL FLOR ([id number]) [facility] ([facility]) [address] [place] [address] 91018 Phosphate [Mass/Vol] 2.6 mg/dL Normal 2.5-4.9 [facility] Comment on above: Result Comment: MILD HEMOLYSIS DETECTED. The result may be falsely elevated due to hemolysis or other interferents. Clinical correlation is recommended. Repeat testing may be considered. The performance characteristics of phosphorus testing in heparinized plasma have been validated by the individual laboratory site where testing is performed. Testing on heparinized plasma is not approved by the FDA; however, such approval is not necessary. Performed By: #### 4 537-7 #### EMANUEL FLOR ([id number]) [facility] ([facility]) [address] [place] [address] 85790 Potassium [Moles/Vol] 3.9 mmol/L Normal 3.5-5.3 [facility] Comment on above: Result Comment: MILD HEMOLYSIS DETECTED. The result may be falsely elevated due to hemolysis or other interferents. Clinical correlation is recommended. Repeat testing may be considered. Performed By: #### 4 537-7 #### EMANUEL FLOR ([id number]) [facility] ([facility]) [address] [place] [address] Sodium [Moles/Vol] 146 mmol/L High 136-145 [facility] Comment on above: Performed By: #### 4 537-7 #### EMANUEL FLOR ([id number]) [facility] ([facility]) [facility] [place] [address] Urea nitrogen [Mass/Vol] 19 mg/dL Normal 6- [facility] Comment on above: Performed By: #### 4 537-7 #### EMANUEL FLOR ([id number]) [facility] ([facility]) [address] [place], [place] [address] XR CHEST 1 VIEWon 10-05-2024 XR CHEST 1 VIEW Interpreted By: Godwin Mckinnon, STUDY: XR CHEST 1 VIEW; 10/05/2024 4:39 pm INDICATION: Signs/Symptoms:Follow up CXR. COMPARISON: Chest radiograph 10/03/[address] scan 09/27/2024 ACCESSION NUMBER(S): [id number] ORDERING CLINICIAN: CRISTOBAL DUNBAR FINDINGS: AP radiograph of the chest. Unchanged positioning of metallic enteric stent projecting over right aspect of mediastinum. Stable positioning of left chest wall cardiac pacemaker/AICD. CARDIOMEDIASTINAL SILHOUETTE: The cardiomediastinal silhouette is stable in size and configuration. Mild aortic knob calcification. LUNGS: There is similar mild bibasilar atelectasis, left more than right. Mild subpleural reticulations are better seen on prior CT scan. There is no pneumothorax. ABDOMEN: There is small amount of free air beneath right hemidiaphragm now visualized. BONES: No acute osseous abnormality. IMPRESSION: 1. Small volume pneumoperitoneum now visualized and correlate with recent procedure history. Close attention on follow-up imaging is recommended. 2. Similar bibasilar presumed atelectasis, left more than right. 3. Stable enlargement of cardiomediastinal silhouette. 4. Medical devices as above. MACRO: Critical Finding: See findings. Notification was initiated on 10/05/2024 at 5:05 pm by Godwin Cantu. (-YCF-) Instructions: Signed by: Godwin Cantu 10/05/2024 5:05 PM Dictation workstation: [id number] Normal [facility] XR Chest Single viewon 10-05 [facility] MM[facility]AL [facility] MMODAL [facility] Work Phone: [facility] Work Phone: Radiology Study observation (narrative) [facility] Work Phone: CBC W Auto Differential pane l (Bld)on 10-04-2024 Basophils (Bld) [#/Vol] 0.05 10*3/uL [facility] Basophils/100 WBC (Bld) 0.4 % 0.0 - 2.0 % [facility] Eosinophils (Bld) [#/Vol] 0.31 10*3/uL [facility] Eosinophils/100 WBC (Bld) 2.6 % 0.0 - 6.0 % [facility] Erythrocyte distribution width (RBC) [Ratio] 16.2 % High 11.5 - 14.5 % [facility] Hematocrit (Bld) [Volume fraction] 51.5 % 41.0 - 52.0 % [facility] Hemoglobin (Bld) [Mass/Vol] 15 g/dL 13.5 - 17.5 g/dL [facility] Immature granulocytes (Bld) [#/Vol] 0.11 10*3/uL [facility] Immature granulocytes/100 WBC (Bld) 0.9 % 0.0 - 0.9 % [facility] Interpretation and review of laboratory results Abnormal [facility] Lymphocytes (Bld) [#/Vol] 1.84 10*3/uL [facility] Lymphocytes/100 WBC (Bld) 15.6 % 13.0 - 44.0 % [facility] MCH (RBC) [Entitic mass] 31 pg 26.0 - 34.0 pg [facility] MCHC (RBC) [Mass/Vol] 29.1 g/dL Low 32.0 - 36.0 g/dL [facility] MCV (RBC) [Entitic vol] 106 fL High 80 - 100 fL [facility] Monocytes (Bld) [#/Vol] 0.63 10*3/uL [facility] Monocytes/100 WBC (Bld) 5.3 % 2.0 - 10.0 % [facility] Neutrophils (Bld) [#/Vol] 8.89 10*3/uL High [facility] Neutrophils/100 WBC (Bld) 75.2 % 40.0 - 80.0 % [facility] Nucleated RBC/100 WBC (Bld) [Ratio] 0 % [facility] Platelets (Bld) [#/Vol] 230 10*3/uL [facility] RBC (Bld) [#/Vol] 4.84 10*6/uL [facility] WBC (Bld) [#/Vol] 11.8 10*3/uL High [facility] Basophils (Bld) [#/Vol] 0.05 x10*3/uL Normal 0.00-0.10 [facility] Comment on above: Performed By: #### 5 7021-8 #### EMANUEL FLOR ([id number]) [facility] ([facility]) [address] [place] [address] 98138 Basophils/100 WBC (Bld) 0.4 % Normal 0.0-2.0 [facility] Comment on above: Performed By: #### 5 7021-8 #### EMANUEL FLOR ([id number]) [facility] ([facility]) [facility] [place] [address] Eosinophils (Bld) [#/Vol] 0.31 x10*3/uL Normal 0.00-0.40 [facility] Comment on above: Performed By: #### 5 7021-8 #### EMANUEL FLOR ([id number]) [facility] ([facility]) [address] [place] [address] 85563 Eosinophils/100 WBC (Bld) 2.6 % Normal 0.0-6.0 [facility] Comment on above: Performed By: #### 5 7021-8 #### EMANUEL FLOR ([id number]) [facility] ([facility]) [address] [place] [address] Erythrocyte distribution width (RBC) [Ratio] 16.2 % High 11.5-14.5 [facility] Comment on above: Performed By: #### 5 7021-8 #### EMANUEL FLOR ([id number]) [facility] ([facility]) [address] [place] [address] Hematocrit (Bld) [Volume fraction] 51.5 % Normal 41.0-52.0 [facility] Comment on above: Performed By: #### 5 7021-8 #### EMANUEL FLOR ([id number]) [facility] ([facility]) [address] [place] [address] Hemoglobin (Bld) [Mass/Vol] 15.0 g/dL Normal 13.5-17.5 [facility] Comment on above: Performed By: #### 5 7021-8 #### EMANUEL FLOR ([id number]) [facility] ([facility]) [address] [place] [address] 78799 Immature granulocytes (Bld) [#/Vol] 0.11 x10*3/uL Normal 0.00-0.50 [facility] Comment on above: Performed By: #### 5 7021-8 #### EMANUEL FLOR ([id number]) [facility] ([facility]) [address] [place], [place] [address] Immature granulocytes/100 WBC (Bld) 0.9 % Normal 0.0-0.9 [facility] Comment on above: Result Comment: Kathy ture Granulocyte Count (IG) includes promyelocytes, myelocytes and metamyelocytes but does not include bands. Percent differential counts (%) should be interpreted in the context of the absolute cell counts (cells/UL). Performed By: #### 5 7021-8 #### EMANUEL FLOR ([id number]) [facility] ([facility]) [address] [place] [address] 01193 Lymphocytes (Bld) [#/Vol] 1.84 x10*3/uL Normal 0.80-3.00 [facility] Comment on above: Performed By: #### 5 7021-8 #### EMANUEL FLOR ([id number]) [facility] ([facility]) [address] [place] [address] 92380 Lymphocytes/100 WBC (Bld) 15.6 % Normal 13.0-44.0 [facility] Comment on above: Performed By: #### 5 7021-8 #### EMANUEL FLOR ([id number]) [facility] ([facility]) [address] [place] [address] 53051 MCH (RBC) [Entitic mass] 31.0 pg Normal 26.0-34.0 [facility] Comment on above: Performed By: #### 5 7021-8 #### EMANUEL FLOR ([id number]) [facility] ([facility]) [address] [place] [address] 52276 MCHC (RBC) [Mass/Vol] 29.1 g/dL Low 32.0-36.0 [facility] Comment on above: Performed By: #### 5 7021-8 #### EMANUEL FLOR ([id number]) [facility] ([facility]) [address] [place] [address] 96019 MCV (RBC) [Entitic vol] 106 fL High 80-100 [facility] Comment on above: Performed By: #### 5 7021-8 #### EMANUEL FLOR ([id number]) [facility] ([facility]) [address] [place] [address] 31731 Monocytes (Bld) [#/Vol] 0.63 x10*3/uL Normal 0.05-0.80 [facility] Comment on above: Performed By: #### 5 7021-8 #### EMANUEL FLOR ([id number]) [facility] ([facility]) [address] [place] [address] 60491 Monocytes/100 WBC (Bld) 5.3 % Normal 2.0-10.0 [facility] Comment on above: Performed By: #### 5 7021-8 #### EMANUEL FLOR ([id number]) [facility] ([facility]) [address] [place] [address] 17510 Neutrophils (Bld) [#/Vol] 8.89 x10*3/uL High 1.60-5.50 [facility] Comment on above: Result Comment: Perc ent differential counts (%) should be interpreted in the context of the absolute cell counts (cells/uL). Performed By: #### 5 7021-8 #### EMANUEL FLOR ([id number]) [facility] ([facility]) [address] [place] [address] 37580 Neutrophils/100 WBC (Bld) 75.2 % Normal 40.0-80.0 [facility] Comment on above: Performed By: #### 5 7021-8 #### EMANUEL FLOR ([id number]) [facility] ([facility]) [address] [place] [address] 66334 Nucleated RBC/100 WBC (Bld) [Ratio] 0.0 /100 WBCs Normal 0.0-0.0 [facility] Comment on above: Performed By: #### 5 7021-8 #### EMANUEL FLOR ([id number]) [facility] ([facility]) [address] [place] [address] 81187 Platelets (Bld) [#/Vol] 230 x10*3/uL Normal 150-450 [facility] Comment on above: Performed By: #### 5 7021-8 #### EMANUEL FLOR ([id number]) [facility] ([facility]) [address] [place] [address] 58597 RBC (Bld) [#/Vol] 4.84 x10*6/uL Normal 4.50-5.90 [facility] Comment on above: Performed By: #### 5 7021-8 #### EMANUEL FLOR ([id number]) [facility] ([facility]) [address] [place] [address] 25562 WBC (Bld) [#/Vol] 11.8 x10*3/uL High 4.4-11.3 [facility] Comment on above: Performed By: #### 5 7021-8 #### EMANUEL FLOR ([id number]) [facility] ([facility]) [address] [place] [address] 06656 Glucose Test strip manual (B ld) [Mass/Vol]on 10-04-2024 Glucose [Mass/Vol] 155 mg/dL High 74 - 99 mg/dL [facility] Interpretation and review of laboratory results Abnormal [facility] Glucose [Mass/Vol] 155 mg/dL High 74-99 [facility] Comment on above: Performed By: #### 4 537-7 #### EMANUEL FLOR ([id number]) [facility] ([facility]) [address] [place] [address] 56746 Glucose [Mass/Vol] 135 mg/dL High 74 - 99 mg/dL [facility] Interpretation and review of laboratory results Abnormal [facility] Glucose [Mass/Vol] 135 mg/dL High 74-99 [facility] Comment on above: Performed By: #### 5 7021-8 #### EMANUEL FLOR ([id number]) [facility] ([facility]) [address] [place] [address] 82537 Glucose [Mass/Vol] 148 mg/dL High 74 - 99 mg/dL [facility] Interpretation and review of laboratory results Abnormal [facility] Glucose [Mass/Vol] 148 mg/dL High 74-99 [facility] Comment on above: Performed By: #### 5 7021-8 #### EMANUEL FLOR ([id number]) [facility] ([facility]) [address] [place] [address] 48978 Glucose [Mass/Vol] 145 mg/dL High 74 - 99 mg/dL [facility] Interpretation and review of laboratory results Abnormal [facility] Glucose [Mass/Vol] 145 mg/dL High 74-99 [facility] Comment on above: Performed By: #### 5 7021-8 #### EMANUEL FLOR ([id number]) [facility] ([facility]) [address] [place] [address] 04164 Magnesiumon 10-04-2024 Magnesium [Mass/Vol] 2.4 mg/dL 1.60 - 2.40 mg/dL [facility] Magnesium [Mass/Vol] 2.40 mg/dL Normal 1.60-2.40 [facility] Comment on above: Performed By: #### 5 7021-8 #### CASTELLANOS CHACHO ([id number]) [facility] ([facility]) [address] [place] [address] Magnesium [Mass/Vol]on 10-04 Interpretation and review of laboratory results Normal [facility] No Panel Informationon 10-04 [facility] Renal function 2000 panelon 10-04-2024 Albumin BCP dye [Mass/Vol] 3.1 g/dL Low 3.4 - 5.0 g/dL [facility] Anion gap [Moles/Vol] 16 mmol/L 10 - 2 0 mmol/L [facility] Calcium [Mass/Vol] 8.9 mg/dL 8.6 - 10. 6 mg/dL [facility] Chloride [Moles/Vol] 112 mmol/L High 98 - 10 7 mmol/L [facility] CO2 [Moles/Vol] 25 mmol/L 21 - 32 mmol/L [facility] Creatinine [Mass/Vol] 0.76 mg/dL 0.50 - 1.30 mg/dL [facility] GFR/1.73 sq M.predicted among non-blacks MDRD (S/P/Bld) [Vol rate/Area] 90 mL/min/{1.73_m2} - PINF [facility] Glucose [Mass/Vol] 137 mg/dL High 74 - 99 mg/dL [facility] Interpretation and review of laboratory results Abnormal [facility] Phosphate [Mass/Vol] 2 mg/dL Low 2.5 - 4 .9 mg/dL [facility] Potassium [Moles/Vol] 4 mmol/L 3.5 - 5.3 mmol/L [facility] Sodium [Moles/Vol] 149 mmol/L High 136 - 145 mmol/L [facility] Urea nitrogen [Mass/Vol] 24 mg/dL High 6 - 23 mg/dL [facility] Albumin BCP dye [Mass/Vol] 3.1 g/dL Low 3.4-5.0 [facility] Comment on above: Performed By: #### 5 7021-8 #### EMANUEL FLOR ([id number]) [facility] ([facility]) [address] [place] [address] 85280 Anion gap [Moles/Vol] 16 mmol/L Normal 10-20 [facility] Comment on above: Performed By: #### 5 7021-8 #### EMANUEL FLOR ([id number]) [facility] ([facility]) [address] [place] [address] 10710 Calcium [Mass/Vol] 8.9 mg/dL Normal 8.6-10.6 [facility] Comment on above: Performed By: #### 5 7021-8 #### EMANUEL FLOR ([id number]) [facility] ([facility]) [address] [place] [address] 12228 Chloride [Moles/Vol] 112 mmol/L High 98-107 [facility] Comment on above: Performed By: #### 5 7021-8 #### EMANUEL FLOR ([id number]) [facility] ([facility]) [address] [place] [address] 75553 CO2 [Moles/Vol] 25 mmol/L Normal 21-32 [facility] Comment on above: Performed By: #### 5 7021-8 #### EMANUEL FLOR ([id number]) [facility] ([facility]) [address] [place] [address] 89123 Creatinine [Mass/Vol] 0.76 mg/dL Normal 0.50-1.30 [facility] Comment on above: Performed By: #### 5 7021-8 #### EMANUEL FLOR ([id number]) [facility] ([facility]) [address] [place] [address] 90797 Glomerular filtration rate/1.73 sq M.predicted 90 mL/min/1.73m*2 Normal >60 [facility] Comment on above: Result Comment: Calc ulations of estimated GFR are performed using the 2020 CKD-EPI Study Refit equation without the race variable for the IDMS-Traceable creatinine methods. https://jasn.asnjournals.org/content//ASN.84319 12166 Performed By: #### 5 7021-8 #### EMANUEL FLOR ([id number]) [facility] ([facility]) [address] [place] [address] 98440 Glucose [Mass/Vol] 137 mg/dL High 74-99 [facility] Comment on above: Performed By: #### 5 7021-8 #### EMANUEL FLOR ([id number]) [facility] ([facility]) [address] [place] [address] 23132 Phosphate [Mass/Vol] 2.0 mg/dL Low 2.5-4.9 [facility] Comment on above: Result Comment: The performance characteristics of phosphorus testing in heparinized plasma have been validated by the individual laboratory site where testing is performed. Testing on heparinized plasma is not approved by the FDA; however, such approval is not necessary. Performed By: #### 5 7021-8 #### EMANUEL FLOR ([id number]) [facility] ([facility]) [address] [place] [address] 87632 Potassium [Moles/Vol] 4.0 mmol/L Normal 3.5-5.3 [facility] Comment on above: Performed By: #### 5 7021-8 #### EMANUEL FLOR ([id number]) [facility] ([facility]) [address] [place] [address] 16467 Sodium [Moles/Vol] 149 mmol/L High 136-145 [facility] Comment on above: Performed By: #### 5 7021-8 #### EMANUEL FLOR ([id number]) [facility] ([facility]) [address] [place] [address] 09251 Urea nitrogen [Mass/Vol] 24 mg/dL High 6-23 [facility] Comment on above: Performed By: #### 5 7021-8 #### EMANUEL FLOR ([id number]) [facility] ([facility]) [address] [place] [address] 11264 US.doppler Upper extremity v ein - lefton 10-04-2024 SYNGO [facility] Work Phone: US.doppler Upper extremity v ein - leftOrdered By: Yolis Treviño on 10-04-2024 [facility] Work Phone: XR Chest Single viewon 10-04 U[facility] MMODAL [facility] MMODAL [facility] Work Phone: XR Chest Single viewOrdered By: Godwin Cantu on 10-04-2024 [facility] Work Phone: Basic metabolic 2000 panelon 10-03-2024 Anion gap [Moles/Vol] 19 mmol/L 10 - 2 0 mmol/L [facility] Calcium [Mass/Vol] 9.2 mg/dL 8.6 - 10. 6 mg/dL [facility] Chloride [Moles/Vol] 112 mmol/L High 98 - 10 7 mmol/L [facility] CO2 [Moles/Vol] 26 mmol/L 21 - 32 mmol/L [facility] Creatinine [Mass/Vol] 0.84 mg/dL 0.50 - 1.30 mg/dL [facility] GFR/1.73 sq M.predicted among non-blacks MDRD (S/P/Bld) [Vol rate/Area] 88 mL/min/{1.73_m2} - PINF [facility] Glucose [Mass/Vol] 144 mg/dL High 74 - 99 mg/dL [facility] Interpretation and review of laboratory results Abnormal [facility] Potassium [Moles/Vol] 3.6 mmol/L 3.5 - 5.3 mmol/L [facility] Sodium [Moles/Vol] 153 mmol/L High 136 - 145 mmol/L [facility] Urea nitrogen [Mass/Vol] 29 mg/dL High 6 - 23 mg/dL [facility] Anion gap [Moles/Vol] 19 mmol/L Normal 10-20 [facility] Comment on above: Performed By: #### 5 7021-8 #### CASTELLANOS CHACHO ([id number]) [facility] ([facility]) [address] [place] [address] Calcium [Mass/Vol] 9.2 mg/dL Normal 8.6-10.6 [facility] Comment on above: Performed By: #### 5 7021-8 #### EMANUEL FLOR ([id number]) [facility] ([facility]) [address] [place] [address] Chloride [Moles/Vol] 112 mmol/L High 98-107 [facility] Comment on above: Performed By: #### 5 7021-8 #### EMANUEL FLOR ([id number]) [facility] ([facility]) [address] [place] [address] 66031 CO2 [Moles/Vol] 26 mmol/L Normal 21-32 [facility] Comment on above: Performed By: #### 5 7021-8 #### EMANUEL FLOR ([id number]) [facility] ([facility]) [address] [place] [address] 27062 Creatinine [Mass/Vol] 0.84 mg/dL Normal 0.50-1.30 [facility] Comment on above: Performed By: #### 5 7021-8 #### EMANUEL FLOR ([id number]) [facility] ([facility]) [address] [place] [address] 13468 Glomerular filtration rate/1.73 sq M.predicted 88 mL/min/1.73m*2 Normal >60 [facility] Comment on above: Result Comment: Calc ulations of estimated GFR are performed using the 2020 CKD-EPI Study Refit equation without the race variable for the IDMS-Traceable creatinine methods. https://jasn.asnjournals.org/content/early//ASN.73900 45160 Performed By: #### 5 7021-8 #### EMANUEL FLOR ([id number]) [facility] ([facility]) [address] [place] [address] 52020 Glucose [Mass/Vol] 144 mg/dL High 74-99 [facility] Comment on above: Performed By: #### 5 7021-8 #### EMANUEL FLOR ([id number]) [facility] ([facility]) [address] [place] [address] Potassium [Moles/Vol] 3.6 mmol/L Normal 3.5-5.3 [facility] Comment on above: Performed By: #### 5 7021-8 #### EMANUEL FLOR ([id number]) [facility] ([facility]) [address] [place] [address] Sodium [Moles/Vol] 153 mmol/L High 136-145 [facility] Comment on above: Performed By: #### 5 7021-8 #### EMANUEL FLOR ([id number]) [facility] ([facility]) [address] [place] [address] 11920 Urea nitrogen [Mass/Vol] 29 mg/dL High 6-23 [facility] Comment on above: Performed By: #### 5 7021-8 #### EMANUEL FLOR ([id number]) [facility] ([facility]) [address] [place], [place] [address] CBC W Auto Differential pane l (Bld)on 10-03-2024 Basophils (Bld) [#/Vol] 0.03 10*3/uL [facility] Basophils/100 WBC (Bld) 0.2 % 0.0 - 2.0 % [facility] Eosinophils (Bld) [#/Vol] 0.13 10*3/uL [facility] Eosinophils/100 WBC (Bld) 0.9 % 0.0 - 6.0 % [facility] Erythrocyte distribution width (RBC) [Ratio] 16.4 % High 11.5 - 14.5 % [facility] Hematocrit (Bld) [Volume fraction] 50.2 % 41.0 - 52.0 % [facility] Hemoglobin (Bld) [Mass/Vol] 15.6 g/dL 13.5 - 17.5 g/dL [facility] Immature granulocytes (Bld) [#/Vol] 0.09 10*3/uL [facility] Immature granulocytes/100 WBC (Bld) 0.6 % 0.0 - 0.9 % [facility] Interpretation and review of laboratory results Abnormal [facility] Lymphocytes (Bld) [#/Vol] 1.56 10*3/uL [facility] Lymphocytes/100 WBC (Bld) 11.1 % 13.0 - 44.0 % [facility] MCH (RBC) [Entitic mass] 30.4 pg 26.0 - 34.0 pg [facility] MCHC (RBC) [Mass/Vol] 31.1 g/dL Low 32.0 - 36.0 g/dL [facility] MCV (RBC) [Entitic vol] 98 fL 80 - 100 fL [facility] Monocytes (Bld) [#/Vol] 0.88 10*3/uL High [facility] Monocytes/100 WBC (Bld) 6.3 % 2.0 - 10.0 % [facility] Neutrophils (Bld) [#/Vol] 11.35 10*3/uL High [facility] Neutrophils/100 WBC (Bld) 80.9 % 40.0 - 80.0 % [facility] Nucleated RBC/100 WBC (Bld) [Ratio] 0 % [facility] Platelets (Bld) [#/Vol] 268 10*3/uL [facility] RBC (Bld) [#/Vol] 5.13 10*6/uL [facility] WBC (Bld) [#/Vol] 14 10*3/uL [facility] Basophils (Bld) [#/Vol] 0.03 x10*3/uL Normal 0.00-0.10 [facility] Comment on above: Performed By: #### 1 5432-8 #### QUEST MITCH ([id number]) [address] [facility] VANE MUSE Basophils/100 WBC (Bld) 0.2 % Normal 0.0-2.0 [facility] Comment on above: Performed By: #### 1 5432-8 #### QUEST MITCH ([id number]) [address] [facility] [address] MUSE Eosinophils (Bld) [#/Vol] 0.13 x10*3/uL Normal 0.00-0.40 [facility] Comment on above: Performed By: #### 1 5432-8 #### QUEST CHANTL ([id number]) [address] [facility] [address] [facility] Eosinophils/100 WBC (Bld) 0.9 % Normal 0.0-6.0 [facility] Comment on above: Performed By: #### 1 543-8 #### QUEST CHANTL ([id number]) [id number] [place] [address] DR [facility] [place] Erythrocyte distribution width (RBC) [Ratio] 16.4 % High 11.5-14.5 [facility] Comment on above: Performed By: #### 1 543-8 #### QUEST CHANTL ([id number]) [address] [place] [address] DR [facility] [place] Hematocrit (Bld) [Volume fraction] 50.2 % Normal 41.0-52.0 [facility] Comment on above: Performed By: #### 1 543-8 #### QUEST CHANTL ([id number]) [id number] [place] [address] DR [place] Hemoglobin (Bld) [Mass/Vol] 15.6 g/dL Normal 13.5-17.5 [facility] Comment on above: Performed By: #### 1 543-8 #### QUEST CHANTL ([id number]) [id number] [place] [address] DR [place] Immature granulocytes (Bld) [#/Vol] 0.09 x10*3/uL Normal 0.00-0.50 [facility] Comment on above: Performed By: #### 1 543-8 #### QUEST CHANTL ([id number]) [address] [facility] [address] [place] Immature granulocytes/100 WBC (Bld) 0.6 % Normal 0.0-0.9 [facility] Comment on above: Result Comment: Kathy ture Granulocyte Count (IG) includes promyelocytes, myelocytes and metamyelocytes but does not include bands. Percent differential counts (%) should be interpreted in the context of the absolute cell counts (cells/UL). Performed By: #### 1 5432-8 #### QUEST CHANTL ([id number]) [address] [facility] DR [place], [place] Lymphocytes (Bld) [#/Vol] 1.56 x10*3/uL Normal 0.80-3.00 [facility] Comment on above: Performed By: #### 1 5432-8 #### QUEST CHANTL ([id number]) [address] [facility] [address] [place], [place] Lymphocytes/100 WBC (Bld) 11.1 % Normal 13.0-44.0 [facility] Comment on above: Performed By: #### 1 543-8 #### QUEST CHANTL ([id number]) [id number] [place] [address] DR [place] MCH (RBC) [Entitic mass] 30.4 pg Normal 26.0-34.0 [facility] Comment on above: Performed By: #### 1 543-8 #### QUEST CHANTL ([id number]) [address] [place] [address] DR G[place] MCHC (RBC) [Mass/Vol] 31.1 g/dL Low 32.0-36.0 [facility] Comment on above: Performed By: #### 1 543-8 #### QUEST CHANTL ([id number]) [id number] [place] [address] DR [place] MCV (RBC) [Entitic vol] 98 fL Normal 80-100 [facility] Comment on above: Performed By: #### 1 5432-8 #### QUEST CHANTL ([id number]) [id number] [place] [address] DR [place] Monocytes (Bld) [#/Vol] 0.88 x10*3/uL High 0.05-0.80 [facility] Comment on above: Performed By: #### 1 543-8 #### QUEST CHANTL ([id number]) [address] [facility] [address] [place] Monocytes/100 WBC (Bld) 6.3 % Normal 2.0-10.0 [facility] Comment on above: Performed By: #### 1 543-8 #### QUEST CHANTL ([id number]) [address] [facility] [address] [place] Neutrophils (Bld) [#/Vol] 11.35 x10*3/uL High 1.60-5.50 [facility] Comment on above: Result Comment: Perc ent differential counts (%) should be interpreted in the context of the absolute cell counts (cells/uL). Performed By: #### 1 5432-8 #### QUEST CHANTL ([id number]) [address] [facility]RE [place] Neutrophils/100 WBC (Bld) 80.9 % Normal 40.0-80.0 [facility] Comment on above: Performed By: #### 1 5432-8 #### QUEST CHANTL ([id number]) [id number] [place], [place] [address]DEIRDRE [place] Nucleated RBC/100 WBC (Bld) [Ratio] 0.0 /100 WBCs Normal 0.0-0.0 [facility] Comment on above: Performed By: #### 1 5432-8 #### QUEST CHANTL ([id number]) [id number] [place] [address] DR [place] Platelets (Bld) [#/Vol] 268 x10*3/uL Normal 150-450 [facility] Comment on above: Performed By: #### 1 5432-8 #### QUEST CHANTL ([id number]) [address]ITAL[facility]M [place] RBC (Bld) [#/Vol] 5.13 x10*6/uL Normal 4.50-5.90 [facility] Comment on above: Performed By: #### 1 5432-8 #### QUEST CHANTL ([id number]) [address] [facility] [place] WBC (Bld) [#/Vol] 14.0 x10*3/uL High 4.4-11.3 [facility] Comment on above: Performed By: #### 1 5432-8 #### QUEST CHANTL ([id number]) [address] Glucose Test strip manual (B ld) [Mass/Vol]on 10-03-2024 Glucose [Mass/Vol] 142 mg/dL High 74 - 99 mg/dL [facility] Interpretation and review of laboratory results Abnormal [facility] Glucose [Mass/Vol] 142 mg/dL High 74-99 [facility] Comment on above: Performed By: #### 5 7021-8 #### EMANUEL FLOR ([id number]) [facility] ([facility]) [address] [place] [address] Glucose [Mass/Vol] 141 mg/dL High 74 - 99 mg/dL [facility] Interpretation and review of laboratory results Abnormal [facility] Glucose [Mass/Vol] 141 mg/dL High 74-99 [facility] Comment on above: Performed By: #### 1 5432-8 #### ALETHEA MEYER ([id number]) [address] Glucose [Mass/Vol] 144 mg/dL High 74 - 99 mg/dL [facility] Interpretation and review of laboratory results Abnormal [facility] Glucose [Mass/Vol] 144 mg/dL High 74-99 [facility] Comment on above: Performed By: #### 1 5432-8 #### ALETHEA MEYER ([id number]) [address] Glucose [Mass/Vol] 193 mg/dL High 74 - 99 mg/dL [facility] Interpretation and review of laboratory results Abnormal [facility] Glucose [Mass/Vol] 193 mg/dL High 74-99 [facility] Comment on above: Performed By: #### 1 5432-8 #### ALETHEA MEYER ([id number]) [address] Magnesiumon 10-03-2024 Magnesium [Mass/Vol] 2.61 mg/dL High 1.60 - 2.40 mg/dL [facility] Magnesium [Mass/Vol] 2.61 mg/dL High 1.60-2.40 [facility] Comment on above: Performed By: #### 1 5432-8 #### ALETHEA MEYER ([id number]) [address] JR GARZA, VANE No Panel Informationon 10-03 Interpretation and review of laboratory results Abnormal [facility] Renal function 2000 panelon 10-03-2024 Albumin BCP dye [Mass/Vol] 3.3 g/dL Low 3.4 - 5.0 g/dL [facility] Anion gap [Moles/Vol] 18 mmol/L 10 - 2 0 mmol/L [facility] Calcium [Mass/Vol] 8.7 mg/dL 8.6 - 10. 6 mg/dL [facility] Chloride [Moles/Vol] 114 mmol/L High 98 - 10 7 mmol/L [facility] CO2 [Moles/Vol] 25 mmol/L 21 - 32 mmol/L [facility] Creatinine [Mass/Vol] 0.84 mg/dL 0.50 - 1.30 mg/dL [facility] GFR/1.73 sq M.predicted among non-blacks MDRD (S/P/Bld) [Vol rate/Area] 88 mL/min/{1.73_m2} - PINF [facility] Glucose [Mass/Vol] 128 mg/dL High 74 - 99 mg/dL [facility] Phosphate [Mass/Vol] 2 mg/dL Low 2.5 - 4 .9 mg/dL [facility] Potassium [Moles/Vol] 3.8 mmol/L 3.5 - 5.3 mmol/L [facility] Sodium [Moles/Vol] 153 mmol/L High 136 - 145 mmol/L [facility] Urea nitrogen [Mass/Vol] 29 mg/dL High 6 - 23 mg/dL [facility] Albumin BCP dye [Mass/Vol] 3.3 g/dL Low 3.4-5.0 [facility] Comment on above: Performed By: #### 1 5432-8 #### ALETHEA MEYER ([id number]) [address] JR [place], [place] Anion gap [Moles/Vol] 18 mmol/L Normal 10-20 [facility] Comment on above: Performed By: #### 1 5432-8 #### QUEST CHANTL ([id number]) [address] JR [place] Calcium [Mass/Vol] 8.7 mg/dL Normal 8.6-10.6 [facility] Comment on above: Performed By: #### 1 5432-8 #### QUEST CHANTL ([id number]) [address] [facility] [place] Chloride [Moles/Vol] 114 mmol/L High 98-107 [facility] Comment on above: Performed By: #### 1 5432-8 #### QUEST CHANTL ([id number]) [address] JR [place] CO2 [Moles/Vol] 25 mmol/L Normal 21-32 [facility] Comment on above: Performed By: #### 1 5432-8 #### QUEST CHANTL ([id number]) [address] JR AGRZA [place] Creatinine [Mass/Vol] 0.84 mg/dL Normal 0.50-1.30 [facility] Comment on above: Performed By: #### 1 5432-8 #### QUEST CHANTL ([id number]) [address] [facility] SURPRISEMALCOLM [place] Glomerular filtration rate/1.73 sq M.predicted 88 mL/min/1.73m*2 Normal >60 [facility] Comment on above: Result Comment: Calc ulations of estimated GFR are performed using the 2020 CKD-EPI Study Refit equation without the race variable for the IDMS-Traceable creatinine methods. https://jasn.asnjournals.org/content/early/ASN.64920 46240 Performed By: #### 1 5432-8 #### QUEST CHANTL ([id number]) [address] JR [place] Glucose [Mass/Vol] 128 mg/dL High 74-99 [facility] Comment on above: Performed By: #### 1 5432-8 #### QUEST KELLIETL ([id number]) [address] JR GARZA, VANE Phosphate [Mass/Vol] 2.0 mg/dL Low 2.5-4.9 [facility] Comment on above: Result Comment: The performance characteristics of phosphorus testing in heparinized plasma have been validated by the individual laboratory site where testing is performed. Testing on heparinized plasma is not approved by the FDA; however, such approval is not necessary. Performed By: #### 1 5432-8 #### ALETHEA HOPKINSTL ([id number]) [address] JR GARZA, VANE Potassium [Moles/Vol] 3.8 mmol/L Normal 3.5-5.3 [facility] Comment on above: Performed By: #### 1 5432-8 #### ALETHEA HOPKINSTL ([id number]) [address] JR [place], [place] Sodium [Moles/Vol] 153 mmol/L High 136-145 [facility] Comment on above: Performed By: #### 1 5432-8 #### ALETHEA HOPKINSTL ([id number]) [address] [facility]DE[facility]DE [place] Urea nitrogen [Mass/Vol] 29 mg/dL High 6-23 [facility] Comment on above: Performed By: #### 1 5432-8 #### QUEST KELLIETL ([id number]) [address]85 [facility]ENTER[facility]IRDRE [place] XR CHEST 1 VIEWon 10-03-2024 XR CHEST 1 VIEW Interpreted By: Woody Sebastian, STUDY: XR CHEST 1 VIEW INDICATION: Signs/Symptoms:effusio n. COMPARISON: October 02 ACCESSION NUMBER(S): [id number] ORDERING CLINICIAN: NILSA MOON FINDINGS: Cardiomegaly again noted. Esophageal stent. No evidence of consolidation. Some patchy atelectasis throughout both lungs. No large effusion or pneumothorax. IMPRESSION: No sizeable effusion. Some mild basilar atelectasis. Signed by: Woody Victoria 10/03/2024 5:07 PM Dictation workstation: [id number] Normal [facility] XR Chest Single viewon 10-03 UH MMODAL UH MMODAL [facility] Work Phone: Radiology Study observation (narrative) [facility] Work Phone: XR Chest Single viewOrdered By: Woody Victoria on 10-03-2024 [facility] Work Phone: Anesthesia Intraoperative Tr ansesophageal Echocardiogramon 10-02-2024 LV EF 43 % [facility] Work Phone: SYNGO [facility] Work Phone: [facility] Work Phone: CBC W Auto Differential pane l (Bld)on 10-02-2024 Basophils (Bld) [#/Vol] 0.02 10*3/uL [facility] Basophils/100 WBC (Bld) 0.2 % 0.0 - 2.0 % [facility] Eosinophils (Bld) [#/Vol] 0.02 10*3/uL [facility] Eosinophils/100 WBC (Bld) 0.2 % 0.0 - 6.0 % [facility] Erythrocyte distribution width (RBC) [Ratio] 16.3 % High 11.5 - 14.5 % [facility] Hematocrit (Bld) [Volume fraction] 50.1 % 41.0 - 52.0 % [facility] Hemoglobin (Bld) [Mass/Vol] 15.7 g/dL 13.5 - 17.5 g/dL [facility] Immature granulocytes (Bld) [#/Vol] 0.09 10*3/uL [facility] Immature granulocytes/100 WBC (Bld) 0.7 % 0.0 - 0.9 % [facility] Interpretation and review of laboratory results Abnormal [facility] Lymphocytes (Bld) [#/Vol] 1.5 10*3/uL [facility] Lymphocytes/100 WBC (Bld) 11.9 % 13.0 - 44.0 % [facility] MCH (RBC) [Entitic mass] 31 pg 26.0 - 34.0 pg [facility] MCHC (RBC) [Mass/Vol] 31.3 g/dL Low 32.0 - 36.0 g/dL [facility] MCV (RBC) [Entitic vol] 99 fL 80 - 100 fL [facility] Monocytes (Bld) [#/Vol] 0.8 10*3/uL [facility] Monocytes/100 WBC (Bld) 6.3 % 2.0 - 10.0 % [facility] Neutrophils (Bld) [#/Vol] 10.19 10*3/uL High [facility] Neutrophils/100 WBC (Bld) 80.7 % 40.0 - 80.0 % [facility] Nucleated RBC/100 WBC (Bld) [Ratio] 0 % [facility] Platelets (Bld) [#/Vol] 294 10*3/uL [facility] RBC (Bld) [#/Vol] 5.06 10*6/uL [facility] WBC (Bld) [#/Vol] 12.6 10*3/uL [facility] Basophils (Bld) [#/Vol] 0.02 x10*3/uL Normal 0.00-0.10 [facility] Comment on above: Performed By: #### 4 548-4 #### CISCO Yanez ([id number]) [facility] ([facility]) [address] [place] [address] Basophils/100 WBC (Bld) 0.2 % Normal 0.0-2.0 [facility] Comment on above: Performed By: #### 4 548-4 #### CISCO PANTOJA L ([id number]) [facility] ([facility]) [address] [place] [address] Eosinophils (Bld) [#/Vol] 0.02 x10*3/uL Normal 0.00-0.40 [facility] Comment on above: Performed By: #### 4 548-4 #### CISCO Yanez ([id number]) [facility] ([facility]) [address] [place] [address] Eosinophils/100 WBC (Bld) 0.2 % Normal 0.0-6.0 [facility] Comment on above: Performed By: #### 4 548-4 #### CISCO Yanez ([id number]) [facility] ([facility]) [address] [place] [address] 11470 Erythrocyte distribution width (RBC) [Ratio] 16.3 % High 11.5-14.5 [facility] Comment on above: Performed By: #### 4 548-4 #### CISCO Yanez ([id number]) [facility] ([facility]) [address] [place] [address] 69698 Hematocrit (Bld) [Volume fraction] 50.1 % Normal 41.0-52.0 [facility] Comment on above: Performed By: #### 4 548-4 #### CISCO Yanez ([id number]) [facility] ([facility]) [address] [place] [address] 67248 Hemoglobin (Bld) [Mass/Vol] 15.7 g/dL Normal 13.5-17.5 [facility] Comment on above: Performed By: #### 4 548-4 #### CISCO Yanez ([id number]) [facility] ([facility]) [address] [place] [address] 54435 Immature granulocytes (Bld) [#/Vol] 0.09 x10*3/uL Normal 0.00-0.50 [facility] Comment on above: Performed By: #### 4 548-4 #### CISCO Yanez ([id number]) [facility] ([facility]) [address] [place] [address] 78401 Immature granulocytes/100 WBC (Bld) 0.7 % Normal 0.0-0.9 [facility] Comment on above: Result Comment: Kathy ture Granulocyte Count (IG) includes promyelocytes, myelocytes and metamyelocytes but does not include bands. Percent differential counts (%) should be interpreted in the context of the absolute cell counts (cells/UL). Performed By: #### 4 548-4 #### CISCO Yanez ([id number]) [facility] ([facility]) [id number] [place] [address] 23138 Lymphocytes (Bld) [#/Vol] 1.50 x10*3/uL Normal 0.80-3.00 [facility] Comment on above: Performed By: #### 4 548-4 #### CISCO Yanez ([id number]) [facility] ([facility]) [address] [place] [address] 68178 Lymphocytes/100 WBC (Bld) 11.9 % Normal 13.0-44.0 [facility] Comment on above: Performed By: #### 4 548-4 #### CISCO Yanez ([id number]) [facility] ([facility]) [address] [place] [address] 36860 MCH (RBC) [Entitic mass] 31.0 pg Normal 26.0-34.0 [facility] Comment on above: Performed By: #### 4 548-4 #### CISCO Yanez ([id number]) [facility] ([facility]) [address] [place] [address] 69616 MCHC (RBC) [Mass/Vol] 31.3 g/dL Low 32.0-36.0 [facility] Comment on above: Performed By: #### 4 548-4 #### CISCO Yanez ([id number]) [facility] ([facility]) [address] [place] [address] 26334 MCV (RBC) [Entitic vol] 99 fL Normal 80-100 [facility] Comment on above: Performed By: #### 4 548-4 #### CISCO Yanez ([id number]) [facility] ([facility]) [address] [place] [address] 51916 Monocytes (Bld) [#/Vol] 0.80 x10*3/uL Normal 0.05-0.80 [facility] Comment on above: Performed By: #### 4 548-4 #### CISCO Yanez ([id number]) [facility] ([facility]) [address] [place] [address] Monocytes/100 WBC (Bld) 6.3 % Normal 2.0-10.0 [facility] Comment on above: Performed By: #### 4 548-4 #### CISCO Yanez ([id number]) [facility] ([facility]) [id number] [place] [address] 34004 Neutrophils (Bld) [#/Vol] 10.19 x10*3/uL High 1.60-5.50 [facility] Comment on above: Result Comment: Perc ent differential counts (%) should be interpreted in the context of the absolute cell counts (cells/uL). Performed By: #### 4 548-4 #### CISCO Yanez ([id number]) [facility] ([facility]) [id number] [place] [address] 42728 Neutrophils/100 WBC (Bld) 80.7 % Normal 40.0-80.0 [facility] Comment on above: Performed By: #### 4 548-4 #### CISCO Yanez ([id number]) [facility] ([facility]) [id number] [place] [address] 02013 Nucleated RBC/100 WBC (Bld) [Ratio] 0.0 /100 WBCs Normal 0.0-0.0 [facility] Comment on above: Performed By: #### 4 548-4 #### CISCO Yanez ([id number]) [facility] ([facility]) [id number] [place] [address] 41481 Platelets (Bld) [#/Vol] 294 x10*3/uL Normal 150-450 [facility] Comment on above: Performed By: #### 4 548-4 #### CISCO Yanez ([id number]) [facility] ([facility]) [id number] [place] [address] 27825 RBC (Bld) [#/Vol] 5.06 x10*6/uL Normal 4.50-5.90 [facility] Comment on above: Performed By: #### 4 548-4 #### CISCO Yanez ([id number]) [facility] ([facility]) [address] [place] [address] WBC (Bld) [#/Vol] 12.6 x10*3/uL High 4.4-11.3 [facility] Comment on above: Performed By: #### 4 548-4 #### CISCO Yanez ([id number]) [facility] ([facility]) [address] [place] [address] ECG 12-LEADon 10-02-2024 ECG 12-LEAD Ventricular Rate 96 Atrial Rate 90 QRS Duration 166 Q-T Interval 430 QTC Calculation(Bazett) 543 R Barnhart 137 T Barnhart 26 QRS Count 16 Q Onset 229 T Offset 444 QTC Fredericia 503 Diagnosis Atrial fibrillation PAcemaker undersensing Biventricular pacemaker detected Abnormal ECG When compared with ECG of 30-SEP-2024 08:31, Premature ventricular complexes are no longer Present Vent. rate has decreased BY 3 BPM Confirmed by Brandon Tracey ([id number]) on 10/13/2024 8:43:17 AM Normal [facility] Glucose Test strip manual (B ld) [Mass/Vol]on 10-02-2024 Glucose [Mass/Vol] 132 mg/dL High 74 - 99 mg/dL [facility] Interpretation and review of laboratory results Abnormal [facility] Glucose [Mass/Vol] 132 mg/dL High 74-99 [facility] Comment on above: Performed By: #### 1 5432-8 #### ALETHEA MEYER ([id number]) [address] [address] Glucose [Mass/Vol] 137 mg/dL High 74 - 99 mg/dL [facility] Interpretation and review of laboratory results Abnormal [facility] Glucose [Mass/Vol] 137 mg/dL High 74-99 [facility] Comment on above: Performed By: #### 1 5432-8 #### ALETHEA MEYER ([id number]) [address] Glucose [Mass/Vol] 144 mg/dL High 74 - 99 mg/dL [facility] Interpretation and review of laboratory results Abnormal [facility] Glucose [Mass/Vol] 144 mg/dL High 74-99 [facility] Comment on above: Performed By: #### 4 548-4 #### CISCO Yanez ([id number]) [facility] ([facility]) [address] [place] [address] 69251 Glucose [Mass/Vol] 135 mg/dL High 74 - 99 mg/dL [facility] Interpretation and review of laboratory results Abnormal [facility] Glucose [Mass/Vol] 135 mg/dL High 74-99 [facility] Comment on above: Performed By: #### 4 548-4 #### CISCO Yanez ([id number]) [facility] ([facility]) [address] [place] [address] 21310 Magnesiumon 10-02-2024 Magnesium [Mass/Vol] 2.66 mg/dL High 1.60 - 2.40 mg/dL [facility] Magnesium [Mass/Vol] 2.66 mg/dL High 1.60-2.40 [facility] Comment on above: Performed By: #### 4 548-4 #### CISCO Yanez ([id number]) [facility] ([facility]) [address] [place] [address] 58994 No Panel Informationon 10-02 Interpretation and review of laboratory results Abnormal [facility] Radiology Study observation (narrative) [facility] Work Phone: Renal function 2000 panelon 10-02-2024 Albumin BCP dye [Mass/Vol] 3.3 g/dL Low 3.4 - 5.0 g/dL [facility] Anion gap [Moles/Vol] 20 mmol/L 10 - 2 0 mmol/L [facility] Calcium [Mass/Vol] 8.9 mg/dL 8.6 - 10. 6 mg/dL [facility] Chloride [Moles/Vol] 115 mmol/L High 98 - 10 7 mmol/L [facility] CO2 [Moles/Vol] 20 mmol/L Low 21 - 32 mmol/L [facility] Creatinine [Mass/Vol] 0.92 mg/dL 0.50 - 1.30 mg/dL [facility] GFR/1.73 sq M.predicted among non-blacks MDRD (S/P/Bld) [Vol rate/Area] 84 mL/min/{1.73_m2} - PINF [facility] Glucose [Mass/Vol] 122 mg/dL High 74 - 99 mg/dL [facility] Phosphate [Mass/Vol] 2.1 mg/dL Low 2.5 - 4 .9 mg/dL [facility] Potassium [Moles/Vol] 3.9 mmol/L 3.5 - 5.3 mmol/L [facility] Sodium [Moles/Vol] 151 mmol/L High 136 - 145 mmol/L [facility] Urea nitrogen [Mass/Vol] 35 mg/dL High 6 - 23 mg/dL [facility] Albumin BCP dye [Mass/Vol] 3.3 g/dL Low 3.4-5.0 [facility] Comment on above: Performed By: #### 4 548-4 #### CISCO Yanez ([id number]) [facility] ([facility]) [id number] [place] [address] 44188 Anion gap [Moles/Vol] 20 mmol/L Normal 10-20 [facility] Comment on above: Performed By: #### 4 548-4 #### CISCO Yanez ([id number]) [facility] ([facility]) [address] [place] [address] 89200 Calcium [Mass/Vol] 8.9 mg/dL Normal 8.6-10.6 [facility] Comment on above: Performed By: #### 4 548-4 #### CISCO Yanez ([id number]) [facility] ([facility]) [id number] [place] [address] 78861 Chloride [Moles/Vol] 115 mmol/L High 98-107 [facility] Comment on above: Performed By: #### 4 548-4 #### CISCO Yanez ([id number]) [facility] ([facility]) [address] [place] [address] CO2 [Moles/Vol] 20 mmol/L Low 21-32 [facility] Comment on above: Performed By: #### 4 548-4 #### CISCO Yanez ([id number]) [facility] ([facility]) [address] [place] [address] Creatinine [Mass/Vol] 0.92 mg/dL Normal 0.50-1.30 [facility] Comment on above: Performed By: #### 4 548-4 #### CISCO Yanez ([id number]) [facility] ([facility]) [address] [place] [address] Glomerular filtration rate/1.73 sq M.predicted 84 mL/min/1.73m*2 Normal >60 [facility] Comment on above: Result Comment: Calc ulations of estimated GFR are performed using the 2020 CKD-EPI Study Refit equation without the race variable for the IDMS-Traceable creatinine methods. https://jasn.asnjournals.org/content/early//ASN.52432 57316 Performed By: #### 4 548-4 #### CISCO Yanez ([id number]) [facility] ([facility]) [address] [place] [address] Glucose [Mass/Vol] 122 mg/dL High 74-99 [facility] Comment on above: Performed By: #### 4 548-4 #### CISCO Yanez ([id number]) [facility] ([facility]) [address] [place] [address] Phosphate [Mass/Vol] 2.1 mg/dL Low 2.5-4.9 [facility] Comment on above: Result Comment: The performance characteristics of phosphorus testing in heparinized plasma have been validated by the individual laboratory site where testing is performed. Testing on heparinized plasma is not approved by the FDA; however, such approval is not necessary. Performed By: #### 4 548-4 #### CISCO Yanez ([id number]) [facility] ([facility]) [address] [place] [address] Potassium [Moles/Vol] 3.9 mmol/L Normal 3.5-5.3 [facility] Comment on above: Performed By: #### 4 548-4 #### CISCO PANTOJA L ([id number]) [facility] ([facility]) [id number] [place] [address] 54623 Sodium [Moles/Vol] 151 mmol/L High 136-145 [facility] Comment on above: Performed By: #### 4 548-4 #### CISCO PANTOJA L ([id number]) [facility] ([facility]) [address] [place] [address] 68082 Urea nitrogen [Mass/Vol] 35 mg/dL High 6-23 [facility] Comment on above: Performed By: #### 4 548-4 #### CISCO Yanez ([id number]) [facility] ([facility]) [address] [place] [address] 49064 VASC US UPPER EXTREMITY VENO US DUPLEX LEFTon 10-02-2024 VASC US UPPER EXTREMITY VENOUS DUPLEX LEFT [address] [address] and Vascular Lab Report VAS US UPPER EXTREMITY VENOUS DUPLEX LEFT Patient Name: ROCIO SANDOVAL Reading Physician: [id number] Yolis Treviño MD Study Date: 10/02/2024 Ordering Physician: [id number] SHAHNAZ RESENDIZ MRN/PID: [id number] Technologist: Beto Lambert RVT, [facility] Technologist 2: Date of /Age: 2 1945 / 79 years Gender: M Admission Status: Outpatient Location Performed: [facility] Diagnosis/ICD: Other specified soft tissue disorders-M79.89 CPT Codes: 10570 Peripheral venous duplex scan for DVT Limited Patient History S/P pacemaker placement. CONCLUSIONS: Right Upper Venous: The subclavian vein demonstrates a normal spontaneous and phasic flow. Left Upper Venous: No evidence of acute deep vein thrombus visualized in the left upper extremity. Imaging & Doppler Findings: Right Flow Subclavian Spontaneous/Phasic Left Compress Thrombus Flow Internal Jugular Yes None Spontaneous/Phasic Subclavian Yes None Spontaneous/Phasic Subclavian Proximal Yes None Subclavian Mid Yes None Subclavian Distal Yes None Axillary Yes None Spontaneous/Phasic Brachial Yes None Cephalic Yes None Basilic Yes None [id number] Yolis Treviño MD Final [facility] XR CHEST 1 VIEWon 10-02-2024 XR CHEST 1 VIEW Interpreted By: Godwin Mckinnon and Stevens Alex STUDY: XR CHEST 1 VIEW; 10/02/2024 3:51 am INDICATION: Signs/Symptoms:effusio n. COMPARISON: XR chest 10/01/[address] 09/28/2019 ACCESSION NUMBER(S): [id number] ORDERING CLINICIAN: NILSA MOON FINDINGS: AP radiograph of the chest was provided. Unchanged positioning of metallic esophageal stent. Stable positioning of a left chest wall cardiac pacemaker/AICD. CARDIOMEDIASTINAL SILHOUETTE: Cardiomediastinal silhouette is persistently enlarged, unchanged in size and configuration. Aortic knob calcifications are noted. Mild pneumomediastinum is again noted. LUNGS: There is similar left basilar hazy opacity with mild blunting of left costophrenic angle, in setting of elevated left hemidiaphragm. Mild subsegmental right basilar atelectasis appears slightly improved from prior. There is no pulmonary edema, in setting of low lung volumes. There is no pneumothorax. ABDOMEN: Trace amount of pneumoperitoneum. BONES: No acute osseous changes. IMPRESSION: 1. Similar left basilar presumed atelectasis suggestion of trace/small left pleural effusion. 2. Mild pneumomediastinum again noted. I personally reviewed the images/study and I agree with the findings as stated by Toney Modi DO PGY-2. This study was interpreted at [place], [place]. MACRO: None Signed by: Godwin Cantu 10/04/2024 6:17 AM Dictation workstation: [id number] [facility] CBC W Auto Differential pane l (Bld)on 10-01-2024 Basophils (Bld) [#/Vol] 0.02 10*3/uL [facility] Basophils/100 WBC (Bld) 0.2 % 0.0 - 2.0 % [facility] Eosinophils (Bld) [#/Vol] 0 10*3/uL [facility] Eosinophils/100 WBC (Bld) 0 % 0.0 - 6.0 % [facility] Erythrocyte distribution width (RBC) [Ratio] 16.1 % High 11.5 - 14.5 % [facility] Hematocrit (Bld) [Volume fraction] 52 % 41.0 - 52.0 % [facility] Hemoglobin (Bld) [Mass/Vol] 16.2 g/dL 13.5 - 17.5 g/dL [facility] Immature granulocytes (Bld) [#/Vol] 0.08 10*3/uL [facility] Immature granulocytes/100 WBC (Bld) 0.6 % 0.0 - 0.9 % [facility] Interpretation and review of laboratory results Abnormal [facility] Lymphocytes (Bld) [#/Vol] 1.01 10*3/uL [facility] Lymphocytes/100 WBC (Bld) 7.6 % 13.0 - 44.0 % [facility] MCH (RBC) [Entitic mass] 30.9 pg 26.0 - 34.0 pg [facility] MCHC (RBC) [Mass/Vol] 31.2 g/dL Low 32.0 - 36.0 g/dL [facility] MCV (RBC) [Entitic vol] 99 fL 80 - 100 fL [facility] Monocytes (Bld) [#/Vol] 0.9 10*3/uL High [facility] Monocytes/100 WBC (Bld) 6.8 % 2.0 - 10.0 % [facility] Neutrophils (Bld) [#/Vol] 11.32 10*3/uL [facility] Neutrophils/100 WBC (Bld) 84.8 % 40.0 - 80.0 % [facility] Nucleated RBC/100 WBC (Bld) [Ratio] 0 % [facility] Platelets (Bld) [#/Vol] 302 10*3/uL [facility] RBC (Bld) [#/Vol] 5.25 10*6/uL [facility] WBC (Bld) [#/Vol] 13.3 10*3/uL [facility] Basophils (Bld) [#/Vol] 0.02 x10*3/uL Normal 0.00-0.10 [facility] Comment on above: Performed By: #### 2 4323-8 #### EMANUEL FLOR ([id number]) [facility] ([facility]) [address] [place] [address] 03144 Basophils/100 WBC (Bld) 0.2 % Normal 0.0-2.0 [facility] Comment on above: Performed By: #### 2 4322-8 #### EMANUEL FLOR ([id number]) [facility] ([facility]) [address] [place] [address] 18442 Eosinophils (Bld) [#/Vol] 0.00 x10*3/uL Normal 0.00-0.40 [facility] Comment on above: Performed By: #### 2 4322-8 #### EMANUEL FLOR ([id number]) [facility] ([facility]) [address] [place] [address] 35069 Eosinophils/100 WBC (Bld) 0.0 % Normal 0.0-6.0 [facility] Comment on above: Performed By: #### 2 4322-8 #### EMANUEL FLOR ([id number]) [facility] ([facility]) [address] [place] [address] 96475 Erythrocyte distribution width (RBC) [Ratio] 16.1 % High 11.5-14.5 [facility] Comment on above: Performed By: #### 2 3-8 #### EMANUEL FLOR ([id number]) [facility] ([facility]) [address] [place] [address] 16577 Hematocrit (Bld) [Volume fraction] 52.0 % Normal 41.0-52.0 [facility] Comment on above: Performed By: #### 2 4322-8 #### EMANUEL FLOR ([id number]) [facility] ([facility]) [address] [place] [address] 65981 Hemoglobin (Bld) [Mass/Vol] 16.2 g/dL Normal 13.5-17.5 [facility] Comment on above: Performed By: #### 2 4323-8 #### EMANUEL FLOR ([id number]) [facility] ([facility]) [address] [place] [address] 77774 Immature granulocytes (Bld) [#/Vol] 0.08 x10*3/uL Normal 0.00-0.50 [facility] Comment on above: Performed By: #### 2 4323-8 #### EMANUEL FLOR ([id number]) [facility] ([facility]) [address] [place] [address] 65372 Immature granulocytes/100 WBC (Bld) 0.6 % Normal 0.0-0.9 [facility] Comment on above: Result Comment: Kathy ture Granulocyte Count (IG) includes promyelocytes, myelocytes and metamyelocytes but does not include bands. Percent differential counts (%) should be interpreted in the context of the absolute cell counts (cells/UL). Performed By: #### 2 4323-8 #### EMANUEL FLOR ([id number]) [facility] ([facility]) [address] [place] [address] 04363 Lymphocytes (Bld) [#/Vol] 1.01 x10*3/uL Normal 0.80-3.00 [facility] Comment on above: Performed By: #### 2 4323-8 #### EMANUEL FLOR ([id number]) [facility] ([facility]) [address] [place] [address] 81746 Lymphocytes/100 WBC (Bld) 7.6 % Normal 13.0-44.0 [facility] Comment on above: Performed By: #### 2 4323-8 #### EMANUEL FLOR ([id number]) [facility] ([facility]) [address] [place] [address] 65695 MCH (RBC) [Entitic mass] 30.9 pg Normal 26.0-34.0 [facility] Comment on above: Performed By: #### 2 4323-8 #### EMANUEL FLOR ([id number]) [facility] ([facility]) [address] [place] [address] 20649 MCHC (RBC) [Mass/Vol] 31.2 g/dL Low 32.0-36.0 [facility] Comment on above: Performed By: #### 2 4323-8 #### EMANUEL FLOR ([id number]) [facility] ([facility]) [address] [place] [address] 35212 MCV (RBC) [Entitic vol] 99 fL Normal 80-100 [facility] Comment on above: Performed By: #### 2 432-8 #### EMANUEL FLOR ([id number]) [facility] ([facility]) [address] [place] [address] 12371 Monocytes (Bld) [#/Vol] 0.90 x10*3/uL High 0.05-0.80 [facility] Comment on above: Performed By: #### 2 432-8 #### EMANUEL FLOR ([id number]) [facility] ([facility]) [address] [place] [address] 63133 Monocytes/100 WBC (Bld) 6.8 % Normal 2.0-10.0 [facility] Comment on above: Performed By: #### 2 432-8 #### EMANUEL FLOR ([id number]) [facility] ([facility]) [address] [place] [address] 03111 Neutrophils (Bld) [#/Vol] 11.32 x10*3/uL High 1.60-5.50 [facility] Comment on above: Result Comment: Perc ent differential counts (%) should be interpreted in the context of the absolute cell counts (cells/uL). Performed By: #### 2 4323-8 #### EMANUEL FLOR ([id number]) [facility] ([facility]) [address] [place] [address] 95721 Neutrophils/100 WBC (Bld) 84.8 % Normal 40.0-80.0 [facility] Comment on above: Performed By: #### 2 432-8 #### EMANUEL FLOR ([id number]) [facility] ([facility]) [address] [place] [address] 99891 Nucleated RBC/100 WBC (Bld) [Ratio] 0.0 /100 WBCs Normal 0.0-0.0 [facility] Comment on above: Performed By: #### 2 4323-8 #### EMANUEL FLOR ([id number]) [facility] ([facility]) [address] [place] [address] 61265 Platelets (Bld) [#/Vol] 302 x10*3/uL Normal 150-450 [facility] Comment on above: Performed By: #### 2 4323-8 #### EMANUEL FLOR ([id number]) [facility] ([facility]) [address] [place] [address] 76485 RBC (Bld) [#/Vol] 5.25 x10*6/uL Normal 4.50-5.90 [facility] Comment on above: Performed By: #### 2 4323-8 #### EMANUEL FLOR ([id number]) [facility] ([facility]) [address] [place] [address] 35781 WBC (Bld) [#/Vol] 13.3 x10*3/uL High 4.4-11.3 [facility] Comment on above: Performed By: #### 2 4323-8 #### EMANUEL FLOR ([id number]) [facility] ([facility]) [address] [place] [address] 85992 Glucose Test strip manual (B ld) [Mass/Vol]on 10-01-2024 Glucose [Mass/Vol] 131 mg/dL High 74 - 99 mg/dL [facility] Interpretation and review of laboratory results Abnormal [facility] Glucose [Mass/Vol] 131 mg/dL High 74-99 [facility] Comment on above: Performed By: #### 4 548-4 #### CISCO Yanez ([id number]) [facility] ([facility]) [id number] [place] [address] 76327 Glucose [Mass/Vol] 119 mg/dL High 74 - 99 mg/dL [facility] Interpretation and review of laboratory results Abnormal [facility] Glucose [Mass/Vol] 119 mg/dL High 74-99 [facility] Comment on above: Performed By: #### 4 548-4 #### CISCO Yanez ([id number]) [facility] ([facility]) [id number] [place] [address] 48191 Glucose [Mass/Vol] 125 mg/dL High 74 - 99 mg/dL [facility] Interpretation and review of laboratory results Abnormal [facility] Glucose [Mass/Vol] 125 mg/dL High 74-99 [facility] Comment on above: Performed By: #### 2 4323-8 #### EMANUEL FLOR ([id number]) [facility] ([facility]) [address] [place] [address] IR GI GJ TUBE PLACEMENTon IR GI GJ TUBE PLACEMENT Interpreted By: Reji Mcqueen and Guirguis James STUDY: IR GI GJ TUBE PLACEMENT; 10/02/2024 5:08 pm INDICATION: Signs/Symptoms:Exisiti ng G tube in place. Large HH concern for reflux of TF via G to distal esop stent/defect. Request for G-J conversion, please.. G to GJ conversion. COMPARISON: Abdominal radiograph dated 09/30/2024 CT chest dated 09/27/2024 ACCESSION NUMBER(S): [id number] ORDERING CLINICIAN: SHAHNAZ RESENDIZ TECHNIQUE: INTERVENTIONALIST(S): MD Dominick Tinoco MD CONSENT: The patient/patient's POA/next of kin was informed of the nature of the proposed procedure. The purposes, alternatives, risks, and benefits were explained and discussed. All questions were answered and consent was obtained. RADIATION EXPOSURE: Fluoroscopy time: 11.6 min Dose: 118.25 mGy SEDATION: None. MEDICATION: None. TIME OUT: A time out was performed immediately prior to procedure start with the interventional team, correctly identifying the patient name, date of , MRN, procedure, anatomy (including marking of site and side), patient position, procedure consent form, relevant laboratory and imaging test results, antibiotic administration, safety precautions, and procedure-specific equipment needs. COMPLICATIONS: No immediate adverse events identified. FINDINGS: Patient was placed supine on the angiographic table and with fluoroscopic guidance, under sterile technique, the existing gastrostomy tube was cut near the hub followed by placement of a 5 Azerbaijani Kumpe catheter. The positioning of the gastrostomy tube was assessed with contrast injection through the Kumpe catheter which demonstrated intraluminal gastric positioning. An 035 glidewire was advanced through the Kumpe catheter and with wire and catheter manipulation, there was subsequent cannulation of the duodenum and further advancement into the proximal jejunum. The wire was removed and contrast was injected through the Kumpe catheter to confirm location within the small bowel. An Amplatz guidewire was advanced through the Kumpe catheter to secure access with removal of the Kumpe catheter over the wire. Finally, a 10.2 Azerbaijani by 50 cm multi purpose pigtail catheter was advanced over the Amplatz guidewire through the gastrostomy tube with the distal pigtail in the proximal jejunum. Positioning was confirmed with injection of contrast through the jejunostomy catheter. It is to be noted that the gastrostomy tube is not able to be used as it is totally occluded by the jejunostomy tube. The patient tolerated the procedure well without immediate 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s. IMPRESSION: Technically successful and uncomplicated conversion of a gastrostomy tube to a gastrojejunostomy tube. The new tube is in good position and is ready to use. It is to be noted that the gastric port of the gastrojejunostomy tube is not available for use as it is totally occluded by the jejunostomy tube. Following maturation of the tract, this may be exchanged for a proper gastrojejunostomy tube, 4-6 weeks following initial gastrostomy tube placement. I was present for and/or performed the critical portions of the procedure and immediately available throughout the entire procedure. I personally reviewed the image(s) / study and resident interpretation. I agree with the findings as stated. Performed and dictated at [facility]. MACRO: None. Signed by: Reji Mcqueen 10/07/2024 7:11 AM Dictation workstation: [id number] [facility] Magnesiumon 10-01-2024 Magnesium [Mass/Vol] 2.63 mg/dL High 1.60 - 2.40 mg/dL [facility] Magnesium [Mass/Vol] 2.63 mg/dL High 1.60-2.40 [facility] Comment on above: Performed By: #### 4 548-4 #### CISCO Yanez ([id number]) [facility] ([facility]) [address] [place] [address] 73307 No Panel Informationon 10-01 Interpretation and review of laboratory results Abnormal [facility] Renal function 2000 panelon 10-01-2024 Albumin BCP dye [Mass/Vol] 3.6 g/dL 3.4 - 5.0 g/dL [facility] Anion gap [Moles/Vol] 22 mmol/L High 10 - 2 0 mmol/L [facility] Calcium [Mass/Vol] 9.1 mg/dL 8.6 - 10. 6 mg/dL [facility] Chloride [Moles/Vol] 111 mmol/L High 98 - 10 7 mmol/L [facility] CO2 [Moles/Vol] 19 mmol/L Low 21 - 32 mmol/L [facility] Creatinine [Mass/Vol] 0.87 mg/dL 0.50 - 1.30 mg/dL [facility] GFR/1.73 sq M.predicted among non-blacks MDRD (S/P/Bld) [Vol rate/Area] 87 mL/min/{1.73_m2} - PINF [facility] Glucose [Mass/Vol] 122 mg/dL High 74 - 99 mg/dL [facility] Phosphate [Mass/Vol] 2.6 mg/dL 2.5 - 4 .9 mg/dL [facility] Potassium [Moles/Vol] 3.8 mmol/L 3.5 - 5.3 mmol/L [facility] Sodium [Moles/Vol] 148 mmol/L High 136 - 145 mmol/L [facility] Urea nitrogen [Mass/Vol] 30 mg/dL High 6 - 23 mg/dL [facility] Albumin BCP dye [Mass/Vol] 3.6 g/dL Normal 3.4-5.0 [facility] Comment on above: Performed By: #### 4 548-4 #### CISCO Yanez ([id number]) [facility] ([facility]) [address] [place] [address] 60849 Anion gap [Moles/Vol] 22 mmol/L High 10-20 [facility] Comment on above: Performed By: #### 4 548-4 #### CISCO PANTOJA L ([id number]) [facility] ([facility]) [address] [place] [address] Calcium [Mass/Vol] 9.1 mg/dL Normal 8.6-10.6 [facility] Comment on above: Performed By: #### 4 548-4 #### CISCO PANTOJA L ([id number]) [facility] ([facility]) [address] [place] [address] Chloride [Moles/Vol] 111 mmol/L High 98-107 [facility] Comment on above: Performed By: #### 4 548-4 #### CISCO PANTOJA L ([id number]) [facility] ([facility]) [address] [place] [address] CO2 [Moles/Vol] 19 mmol/L Low 21-32 [facility] Comment on above: Performed By: #### 4 548-4 #### CISCO PANTOJA L ([id number]) [facility] ([facility]) [address] [place] [address] Creatinine [Mass/Vol] 0.87 mg/dL Normal 0.50-1.30 [facility] Comment on above: Performed By: #### 4 548-4 #### CISCO PANTOJA L ([id number]) [facility] ([facility]) [id number] [place] [address] 42742 Glomerular filtration rate/1.73 sq M.predicted 87 mL/min/1.73m*2 Normal >60 [facility] Comment on above: Result Comment: Calc ulations of estimated GFR are performed using the 2020 CKD-EPI Study Refit equation without the race variable for the IDMS-Traceable creatinine methods. https://jasn.asnjournals.org/content//ASN.55156 24315 Performed By: #### 4 548-4 #### CISCO Yanez ([id number]) [facility] ([facility]) [address] [place] [address] Glucose [Mass/Vol] 122 mg/dL High 74-99 [facility] Comment on above: Performed By: #### 4 548-4 #### CISCO Yanez ([id number]) [facility] ([facility]) [address] [place] [address] 20342 Phosphate [Mass/Vol] 2.6 mg/dL Normal 2.5-4.9 [facility] Comment on above: Result Comment: The performance characteristics of phosphorus testing in heparinized plasma have been validated by the individual laboratory site where testing is performed. Testing on heparinized plasma is not approved by the FDA; however, such approval is not necessary. Performed By: #### 4 548-4 #### CISCO Yanez ([id number]) [facility] ([facility]) [address] [place] [address] 57785 Potassium [Moles/Vol] 3.8 mmol/L Normal 3.5-5.3 [facility] Comment on above: Performed By: #### 4 548-4 #### CISCO Yanez ([id number]) [facility] ([facility]) [address] [place] [address] 73762 Sodium [Moles/Vol] 148 mmol/L High 136-145 [facility] Comment on above: Performed By: #### 4 548-4 #### CISCO Yanez ([id number]) [facility] ([facility]) [id number] [place] [address] 50192 Urea nitrogen [Mass/Vol] 30 mg/dL High 6-23 [facility] Comment on above: Performed By: #### 4 548-4 #### CISCO PANTOJA L ([id number]) [facility] ([facility]) [address] [place] [address] 93551 XR CHEST 1 VIEWon 10-01-2024 XR CHEST 1 VIEW Interpreted By: Octavio Jackson, STUDY: XR CHEST 1 VIEW; ; 10/01/2024 4:02 am INDICATION: Signs/Symptoms:effusio n. COMPARISON: 09/30/2024 ACCESSION NUMBER(S): [id number] ORDERING CLINICIAN: NILSA MOON TECHNIQUE: A portable radiograph of the chest is performed. FINDINGS: A esophageal stent overlies the mediastinum which is unchanged. Trace pneumoperitoneum persists. A 2 lead intracardiac device is stable in position. The heart is enlarged. The pulmonary vessels are unchanged. There is faint bibasilar interstitial infiltrates of uncertain chronicity and faint interstitial density at the periphery of both lungs. There is no new airspace consolidation. There is no sizable pleural effusion or pneumothorax. The osseous structures are demineralized though intact. IMPRESSION: No interval change from 09/30/2024. Continued clinical and radiographic follow-up is recommended. MACRO: None Signed by: Octavio Jackson 10/01/2024 7:19 PM Dictation workstation: [id number] Normal [facility] XR Chest Single viewon 10-01 U[facility] MMODAL UH MMODAL [facility] Work Phone: Radiology Study observation (narrative) [facility] Work Phone: XR Chest Single viewOrdered By: Radha Jackson on 10-01-2024 [facility] Work Phone: CBC W Auto Differential pane l (Bld)on 09-30-2024 Basophils (Bld) [#/Vol] 0.02 10*3/uL [facility] Basophils/100 WBC (Bld) 0.1 % 0.0 - 2.0 % [facility] Eosinophils (Bld) [#/Vol] 0.01 10*3/uL [facility] Eosinophils/100 WBC (Bld) 0.1 % 0.0 - 6.0 % [facility] Erythrocyte distribution width (RBC) [Ratio] 15.6 % High 11.5 - 14.5 % [facility] Hematocrit (Bld) [Volume fraction] 43.3 % 41.0 - 52.0 % [facility] Hemoglobin (Bld) [Mass/Vol] 14.3 g/dL 13.5 - 17.5 g/dL [facility] Immature granulocytes (Bld) [#/Vol] 0.1 10*3/uL [facility] Immature granulocytes/100 WBC (Bld) 0.6 % 0.0 - 0.9 % [facility] Interpretation and review of laboratory results Abnormal [facility] Lymphocytes (Bld) [#/Vol] 1.05 10*3/uL [facility] Lymphocytes/100 WBC (Bld) 6.1 % 13.0 - 44.0 % [facility] MCH (RBC) [Entitic mass] 30.2 pg 26.0 - 34.0 pg [facility] MCHC (RBC) [Mass/Vol] 33 g/dL 32.0 - 36.0 g/dL [facility] MCV (RBC) [Entitic vol] 91 fL 80 - 100 fL [facility] Monocytes (Bld) [#/Vol] 1.09 10*3/uL High [facility] Monocytes/100 WBC (Bld) 6.3 % 2.0 - 10.0 % [facility] Neutrophils (Bld) [#/Vol] 15.03 10*3/uL High [facility] Neutrophils/100 WBC (Bld) 86.8 % 40.0 - 80.0 % [facility] Nucleated RBC/100 WBC (Bld) [Ratio] 0 % [facility] Platelets (Bld) [#/Vol] 238 10*3/uL [facility] RBC (Bld) [#/Vol] 4.74 10*6/uL [facility] WBC (Bld) [#/Vol] 17.3 10*3/uL [facility] Basophils (Bld) [#/Vol] 0.02 x10*3/uL Normal 0.00-0.10 [facility] Comment on above: Performed By: #### 5 7021-8 #### CASTELLANOS CHACHO ([id number]) [facility] ([facility]) [address] [place] [address] Basophils/100 WBC (Bld) 0.1 % Normal 0.0-2.0 [facility] Comment on above: Performed By: #### 5 7021-8 #### EMANUEL FLOR ([id number]) [facility] ([facility]) [address] [place] [address] 94224 Eosinophils (Bld) [#/Vol] 0.01 x10*3/uL Normal 0.00-0.40 [facility] Comment on above: Performed By: #### 70-8 #### EMANUEL FLOR ([id number]) [facility] ([facility]) [address] [place] [address] 23629 Eosinophils/100 WBC (Bld) 0.1 % Normal 0.0-6.0 [facility] Comment on above: Performed By: #### 70-8 #### EMANUEL FLOR ([id number]) [facility] ([facility]) [address] [place] [address] 00199 Erythrocyte distribution width (RBC) [Ratio] 15.6 % High 11.5-14.5 [facility] Comment on above: Performed By: #### 70-8 #### EMANUEL FLOR ([id number]) [facility] ([facility]) [address] [place] [address] 44509 Hematocrit (Bld) [Volume fraction] 43.3 % Normal 41.0-52.0 [facility] Comment on above: Performed By: #### 5 7021-8 #### EMANUEL FLOR ([id number]) [facility] ([facility]) [address] [place] [address] 98914 Hemoglobin (Bld) [Mass/Vol] 14.3 g/dL Normal 13.5-17.5 [facility] Comment on above: Performed By: #### 7021-8 #### EMANUEL FLOR ([id number]) [facility] ([facility]) [address] [place] [address] 36401 Immature granulocytes (Bld) [#/Vol] 0.10 x10*3/uL Normal 0.00-0.50 [facility] Comment on above: Performed By: #### 7021-8 #### EMANUEL FLOR ([id number]) [facility] ([facility]) [address] [place] [address] 57378 Immature granulocytes/100 WBC (Bld) 0.6 % Normal 0.0-0.9 [facility] Comment on above: Result Comment: Kathy ture Granulocyte Count (IG) includes promyelocytes, myelocytes and metamyelocytes but does not include bands. Percent differential counts (%) should be interpreted in the context of the absolute cell counts (cells/UL). Performed By: #### 5 7021-8 #### EMANUEL FLOR ([id number]) [facility] ([facility]) [address] [place] [address] 01809 Lymphocytes (Bld) [#/Vol] 1.05 x10*3/uL Normal 0.80-3.00 [facility] Comment on above: Performed By: #### 5 7021-8 #### EMANUEL FLOR ([id number]) [facility] ([facility]) [address] [place] [address] 85416 Lymphocytes/100 WBC (Bld) 6.1 % Normal 13.0-44.0 [facility] Comment on above: Performed By: #### 5 7021-8 #### EMANUEL FLOR ([id number]) [facility] ([facility]) [address] [place] [address] 31703 MCH (RBC) [Entitic mass] 30.2 pg Normal 26.0-34.0 [facility] Comment on above: Performed By: #### 5 7021-8 #### EMANUEL FLOR ([id number]) [facility] ([facility]) [address] [place] [address] 01162 MCHC (RBC) [Mass/Vol] 33.0 g/dL Normal 32.0-36.0 [facility] Comment on above: Performed By: #### 5 7021-8 #### EMANUEL FLOR ([id number]) [facility] ([facility]) [address] [place] [address] 45759 MCV (RBC) [Entitic vol] 91 fL Normal 80-100 [facility] Comment on above: Performed By: #### 5 7021-8 #### EMANUEL FLOR ([id number]) [facility] ([facility]) [address] [place] [address] 15141 Monocytes (Bld) [#/Vol] 1.09 x10*3/uL High 0.05-0.80 [facility] Comment on above: Performed By: #### 5 7021-8 #### EMANUEL FLOR ([id number]) [facility] ([facility]) [address] [place] [address] 29336 Monocytes/100 WBC (Bld) 6.3 % Normal 2.0-10.0 [facility] Comment on above: Performed By: #### 5 7021-8 #### EMANUEL FLOR ([id number]) [facility] ([facility]) [address] [place] [address] 44658 Neutrophils (Bld) [#/Vol] 15.03 x10*3/uL High 1.60-5.50 [facility] Comment on above: Result Comment: Perc ent differential counts (%) should be interpreted in the context of the absolute cell counts (cells/uL). Performed By: #### 5 7021-8 #### EMANUEL FLOR ([id number]) [facility] ([facility]) [address] [place] [address] 75634 Neutrophils/100 WBC (Bld) 86.8 % Normal 40.0-80.0 [facility] Comment on above: Performed By: #### 5 7021-8 #### EMANUEL FLOR ([id number]) [facility] ([facility]) [address] [place] [address] 82841 Nucleated RBC/100 WBC (Bld) [Ratio] 0.0 /100 WBCs Normal 0.0-0.0 [facility] Comment on above: Performed By: #### 5 7021-8 #### EMANUEL FLOR ([id number]) [facility] ([facility]) [address] [place] [address] 32307 Platelets (Bld) [#/Vol] 238 x10*3/uL Normal 150-450 [facility] Comment on above: Performed By: #### 5 7021-8 #### EMANUEL FLOR ([id number]) [facility] ([facility]) [address] [place] [address] RBC (Bld) [#/Vol] 4.74 x10*6/uL Normal 4.50-5.90 [facility] Comment on above: Performed By: #### 5 7021-8 #### EMANUEL FLOR ([id number]) [facility] ([facility]) [facility] [place] [id number] WBC (Bld) [#/Vol] 17.3 x10*3/uL High 4.4-11.3 [facility] Comment on above: Performed By: #### 5 7021-8 #### EMANUEL FLOR ([id number]) [facility] ([facility]) [address] [place] [address] ECG 12-LEADon 09-30-2024 ECG 12-LEAD Ventricular Rate 99 Atrial Rate 99 QRS Duration 112 Q-T Interval 334 QTC Calculation(Bazett) 428 P Barnhart 76 R Barnhart -42 T Barnhart -11 QRS Count 16 Q Onset 218 T Offset 385 QTC Fredericia 394 Diagnosis A fib with pacemaker undersensing with frequent Premature ventricular complexes Abnormal ECG When compared with ECG of 30-SEP-2024 08:29, Vent. rate has increased BY 5 BPM Confirmed by Thal Brandon ([id number]) on 10/13/2024 8:38:58 AM Normal [facility] ECG 12-LEAD Ventricular Rate 93 Atrial Rate 104 QRS Duration 114 Q-T Interval 370 QTC Calculation(Bazett) 460 R Barnhart -39 T Barnhart -45 QRS Count 15 Q Onset 208 T Offset 393 QTC Fredericia 428 Diagnosis Atrial fibrillation evidence of pacemaker undersensing Abnormal ECG When compared with ECG of 30-SEP-2024 00:43, Vent. rate has increased BY 3 BPM Confirmed by Thal Brandon ([id number]) on 10/13/2024 8:38:20 AM Normal [facility] Glucose Test strip manual (B ld) [Mass/Vol]on 09-30-2024 Glucose [Mass/Vol] 131 mg/dL High 74 - 99 mg/dL [facility] Interpretation and review of laboratory results Abnormal [facility] Glucose [Mass/Vol] 131 mg/dL High 74-99 [facility] Comment on above: Performed By: #### 2 4323-8 #### EMANUEL FLOR ([id number]) [facility] ([facility]) [address] [place] [address] Glucose [Mass/Vol] 106 mg/dL High 74 - 99 mg/dL [facility] Interpretation and review of laboratory results Abnormal [facility] Glucose [Mass/Vol] 106 mg/dL High 74-99 [facility] Comment on above: Performed By: #### 2 4323-8 #### EMANUEL FLOR ([id number]) [facility] ([facility]) [address] [place] [address] Glucose [Mass/Vol] 130 mg/dL High 74 - 99 mg/dL [facility] Interpretation and review of laboratory results Abnormal [facility] Glucose [Mass/Vol] 130 mg/dL High 74-99 [facility] Comment on above: Performed By: #### 2 4323-8 #### EMANUEL FLOR ([id number]) [facility] ([facility]) [address] [place] [address] Glucose [Mass/Vol] 123 mg/dL High 74 - 99 mg/dL [facility] Interpretation and review of laboratory results Abnormal [facility] Glucose [Mass/Vol] 123 mg/dL High 74-99 [facility] Comment on above: Performed By: #### 2 4323-8 #### EMANUEL FLOR ([id number]) [facility] ([facility]) [address] [place] [address] Magnesiumon 09-30-2024 Magnesium [Mass/Vol] 2.36 mg/dL 1.60 - 2.40 mg/dL [facility] Magnesium [Mass/Vol] 2.36 mg/dL Normal 1.60-2.40 [facility] Comment on above: Performed By: #### 5 7021-8 #### EMANUEL FLOR ([id number]) [facility] ([facility]) [address] [place] [address] Magnesium [Mass/Vol]on 09-30 Interpretation and review of laboratory results Normal [facility] No Panel Informationon 09-30 [facility] Renal function 2000 panelon 09-30-2024 Albumin BCP dye [Mass/Vol] 3.5 g/dL 3.4 - 5.0 g/dL [facility] Anion gap [Moles/Vol] 23 mmol/L High 10 - 2 0 mmol/L [facility] Calcium [Mass/Vol] 8.9 mg/dL 8.6 - 10. 6 mg/dL [facility] Chloride [Moles/Vol] 110 mmol/L High 98 - 10 7 mmol/L [facility] CO2 [Moles/Vol] 18 mmol/L Low 21 - 32 mmol/L [facility] Creatinine [Mass/Vol] 0.69 mg/dL 0.50 - 1.30 mg/dL [facility] eGFR - PINF [facility] Glucose [Mass/Vol] 123 mg/dL High 74 - 99 mg/dL [facility] Interpretation and review of laboratory results Abnormal [facility] Phosphate [Mass/Vol] 2.6 mg/dL 2.5 - 4 .9 mg/dL [facility] Potassium [Moles/Vol] 4.6 mmol/L 3.5 - 5.3 mmol/L [facility] Sodium [Moles/Vol] 146 mmol/L High 136 - 145 mmol/L [facility] Urea nitrogen [Mass/Vol] 28 mg/dL High 6 - 23 mg/dL [facility] Albumin BCP dye [Mass/Vol] 3.5 g/dL Normal 3.4-5.0 [facility] Comment on above: Performed By: #### 2 4323-8 #### EMANUEL FLOR ([id number]) [facility] ([facility]) [address] [place] [address] Anion gap [Moles/Vol] 23 mmol/L High 10-20 [facility] Comment on above: Performed By: #### 2 4323-8 #### EMANUEL FLOR ([id number]) [facility] ([facility]) [address] [place] [address]226 Calcium [Mass/Vol] 8.9 mg/dL Normal 8.6-10.6 [facility] Comment on above: Performed By: #### 2 4323-8 #### EMANUEL FLOR ([id number]) [facility] ([facility]) [address] [place] [address] Chloride [Moles/Vol] 110 mmol/L High 98-107 [facility] Comment on above: Performed By: #### 2 4323-8 #### EMANUEL FLOR ([id number]) [facility] ([facility]) [address] [place] [address] CO2 [Moles/Vol] 18 mmol/L Low 21-32 [facility] Comment on above: Performed By: #### 2 4323-8 #### EMANUEL FLOR ([id number]) [facility] ([facility]) [address] [place] [address] Creatinine [Mass/Vol] 0.69 mg/dL Normal 0.50-1.30 [facility] Comment on above: Performed By: #### 2 4323-8 #### EMANUEL FLOR ([id number]) [facility] ([facility]) [address] [place] [address]359 GFR/1.73 sq M.predicted MDRD (S/P/Bld) [Vol rate/Area] mL/min/{1.73_m2} Normal >60 [facility] Comment on above: Result Comment: Calc ulations of estimated GFR are performed using the 2020 CKD-EPI Study Refit equation without the race variable for the IDMS-Traceable creatinine methods. https://jasn.asnjournals.org/content/early//ASN.94678 17000 Performed By: #### 2 4323-8 #### EMANUEL FLOR ([id number]) [facility] ([facility]) [facility] [place] [address] Glucose [Mass/Vol] 123 mg/dL High 74-99 [facility] Comment on above: Performed By: #### 2 4323-8 #### EMANUEL FLOR ([id number]) [facility] ([facility]) [facility] [place] [address] Phosphate [Mass/Vol] 2.6 mg/dL Normal 2.5-4.9 [facility] Comment on above: Result Comment: MODE RATE HEMOLYSIS DETECTED. The result may be falsely elevated due to hemolysis or other interferents. Clinical correlation is recommended. Repeat testing may be considered. The performance characteristics of phosphorus testing in heparinized plasma have been validated by the individual laboratory site where testing is performed. Testing on heparinized plasma is not approved by the FDA; however, such approval is not necessary. Performed By: #### 2 4323-8 #### EMANUEL FLOR ([id number]) [facility] ([facility]) [address] [place] [address] Potassium [Moles/Vol] 4.6 mmol/L Normal 3.5-5.3 [facility] Comment on above: Result Comment: MODE RATE HEMOLYSIS DETECTED. The result may be falsely elevated due to hemolysis or other interferents. Clinical correlation is recommended. Repeat testing may be considered. Performed By: #### 2 4323-8 #### EMANUEL FLOR ([id number]) [facility] ([facility]) [address] [place] [address] Sodium [Moles/Vol] 146 mmol/L High 136-145 [facility] Comment on above: Performed By: #### 2 4323-8 #### EMANUEL FLOR ([id number]) [facility] ([facility]) [address] [place] [address] Urea nitrogen [Mass/Vol] 28 mg/dL High 6-23 [facility] Comment on above: Performed By: #### 2 4323-8 #### EMANUEL FLOR ([id number]) [facility] ([facility]) [address] [place] [address] 33872 Albumin BCP dye [Mass/Vol] 3.3 g/dL Low 3.4 - 5.0 g/dL [facility] Anion gap [Moles/Vol] 32 mmol/L High 10 - 2 0 mmol/L [facility] Calcium [Mass/Vol] 8.4 mg/dL Low 8.6 - 10. 6 mg/dL [facility] Chloride [Moles/Vol] 100 mmol/L 98 - 10 7 mmol/L [facility] CO2 [Moles/Vol] 19 mmol/L Low 21 - 32 mmol/L [facility] Creatinine [Mass/Vol] 0.75 mg/dL 0.50 - 1.30 mg/dL [facility] eGFR - PINF [facility] Glucose [Mass/Vol] 142 mg/dL High 74 - 99 mg/dL [facility] Interpretation and review of laboratory results Abnormal [facility] Phosphate [Mass/Vol] 2.3 mg/dL Low 2.5 - 4 .9 mg/dL [facility] Potassium [Moles/Vol] 3.7 mmol/L 3.5 - 5.3 mmol/L [facility] Sodium [Moles/Vol] 147 mmol/L High 136 - 145 mmol/L [facility] Urea nitrogen [Mass/Vol] 28 mg/dL High 6 - 23 mg/dL [facility] Albumin BCP dye [Mass/Vol] 3.3 g/dL Low 3.4-5.0 [facility] Comment on above: Performed By: #### 2 4323-8 #### EMANUEL FLOR ([id number]) [facility] ([facility]) [facility] [place] [address] Anion gap [Moles/Vol] 32 mmol/L High 10-20 [facility] Comment on above: Performed By: #### 2 4323-8 #### EMANUEL FLOR ([id number]) [facility] ([facility]) [address] [place] [address] Calcium [Mass/Vol] 8.4 mg/dL Low 8.6-10.6 [facility] Comment on above: Performed By: #### 2 4323-8 #### EMANUEL FLOR ([id number]) [facility] ([facility]) [address] [place] [address] Chloride [Moles/Vol] 100 mmol/L Normal 98-107 [facility] Comment on above: Performed By: #### 2 4323-8 #### EMANUEL FLOR ([id number]) [facility] ([facility]) [facility] [place] [address] CO2 [Moles/Vol] 19 mmol/L Low 21-32 [facility] Comment on above: Performed By: #### 2 4323-8 #### EMANUEL FLOR ([id number]) [facility] ([facility]) [address] [place] [address] Creatinine [Mass/Vol] 0.75 mg/dL Normal 0.50-1.30 [facility] Comment on above: Performed By: #### 2 4323-8 #### EMANUEL FLOR ([id number]) [facility] ([facility]) [address] [place] [address] 89348 GFR/1.73 sq M.predicted MDRD (S/P/Bld) [Vol rate/Area] mL/min/{1.73_m2} Normal >60 [facility] Comment on above: Result Comment: Calc ulations of estimated GFR are performed using the 2020 CKD-EPI Study Refit equation without the race variable for the IDMS-Traceable creatinine methods. https://jasn.asnjournals.org/content//ASN.55742 91384 Performed By: #### 2 4323-8 #### EMANUEL FLOR ([id number]) [facility] ([facility]) [address] [place] [address] Glucose [Mass/Vol] 142 mg/dL High 74-99 [facility] Comment on above: Performed By: #### 2 4323-8 #### EMANUEL FLOR ([id number]) [facility] ([facility]) [address] [place] [address] 83553 Phosphate [Mass/Vol] 2.3 mg/dL Low 2.5-4.9 [facility] Comment on above: Result Comment: MILD HEMOLYSIS DETECTED. The result may be falsely elevated due to hemolysis or other interferents. Clinical correlation is recommended. Repeat testing may be considered. The performance characteristics of phosphorus testing in heparinized plasma have been validated by the individual laboratory site where testing is performed. Testing on heparinized plasma is not approved by the FDA; however, such approval is not necessary. Performed By: #### 2 4323-8 #### EMANUEL FLOR ([id number]) [facility] ([facility]) [address] [place] [address] Potassium [Moles/Vol] 3.7 mmol/L Normal 3.5-5.3 [facility] Comment on above: Result Comment: MILD HEMOLYSIS DETECTED. The result may be falsely elevated due to hemolysis or other interferents. Clinical correlation is recommended. Repeat testing may be considered. Performed By: #### 2 4323-8 #### EMANUEL FLOR ([id number]) [facility] ([facility]) [address] [place] [address] Sodium [Moles/Vol] 147 mmol/L High 136-145 [facility] Comment on above: Performed By: #### 2 4323-8 #### EMANUEL FLOR ([id number]) [facility] ([facility]) [address] [place] [address] Urea nitrogen [Mass/Vol] 28 mg/dL High 6-23 [facility] Comment on above: Performed By: #### 2 4323-8 #### EMANUEL FLOR ([id number]) [facility] ([facility]) [address] [place] [address] XR ABDOMEN 1 VIEWon 10-01-19 25 XR ABDOMEN 1 VIEW Interpreted By: Curtis Nichols and Hofer Lindsay STUDY: XR ABDOMEN 1 VIEW; 09/30/2024 12:39 am INDICATION: Signs/Symptoms:pulled out NGT. COMPARISON: Chest and abdominal radiograph 09/29/2024 ACCESSION NUMBER(S): [id number] ORDERING CLINICIAN: PEGGY DOUGLAS FINDINGS: 2 AP radiographs of the upper abdomen. Partially visualized esophageal stent in a similar position as compared to prior. Partially visualized pacemaker leads overlying the cardiomediastinal silhouette. An enteric tube is not definitively visualized on these radiographs. Mild gaseous distention of multiple loops of small and large bowel in a nonobstructive bowel gas pattern. There is contrast throughout the length of the large bowel. Moderate colonic stool burden. Limited evaluation of pneumoperitoneum on supine imaging, however no gross evidence of free air is noted. Limited evaluation of the lungs. Osseous structures demonstrate no acute bony changes. IMPRESSION: 1. A nasogastric tube is not definitively visualized on these radiographs. Recommend clinical correlation. 2. Mild gaseous distention of multiple loops of small and large bowel in a nonobstructive bowel gas pattern. Contrast is visualized throughout the large bowel. I personally reviewed the images/study and resident's interpretation and I agree with the findings as stated by Mima Byrne MD (resident radiologist). This study was analyzed and interpreted at [place], [place]. MACRO: None Signed by: Curtis Nichols 09/30/2024 9:38 AM Dictation workstation: [id number] Normal [facility] XR Abdomen Single viewon [facility] MMODAL [facility] MMODAL [facility] Work Phone: [facility] Work Phone: Radiology Study observation (narrative) [facility] Work Phone: XR CHEST 1 VIEWon 09-30-2024 XR CHEST 1 VIEW Interpreted By: Curtis Nichols and Stevens Alex STUDY: XR CHEST 1 VIEW; 09/30/2024 7:04 am INDICATION: Signs/Symptoms:effusio n. COMPARISON: XR chest 09/29/2024 ACCESSION NUMBER(S): [id number] ORDERING CLINICIAN: NILSA MOON FINDINGS: AP radiograph of the chest was provided. Metallic stent visualized within the mid esophagus extending distally just proximal to the gastroesophageal junction. Left chest wall pacemaker/AICD unchanged in positioning. Interval removal of previously seen enteric tube. CARDIOMEDIASTINAL SILHOUETTE: Cardiomediastinal silhouette is unchanged in size and configuration. LUNGS: Re-demonstration of blunting of the left costophrenic angle. No pneumothorax. No new focal consolidation. Mild atelectatic changes within the lung bases. ABDOMEN: Trace amount of pneumoperitoneum is again visualized. BONES: No acute osseous changes. IMPRESSION: 1. Small left-sided pleural effusion with adjacent atelectasis, similar to prior. 2. Esophageal stent in similar position. No significant pneumomediastinum. 3. Trace amount of pneumoperitoneum, likely postsurgical. 4. Mild increased density at the right lung base consistent with atelectasis with accentuation of findings since the prior study. I personally reviewed the images/study and I agree with the findings as stated by Toney Modi DO PGY-2. This study was interpreted at [facility], [place], [place]. MACRO: None Signed by: Curtis Nichols 09/30/2024 9:43 AM Dictation workstation: [id number] Normal [facility] XR Chest Single viewon 09-30 [facility] MM[facility]AL [facility] MM[facility]AL [facility] Work Phone: [facility] Work Phone: Radiology Study observation (narrative) [facility] Work Phone: CBC W Auto Differential pane l (Bld)on 09-29-2024 Basophils (Bld) [#/Vol] 0.02 10*3/uL [facility] Basophils/100 WBC (Bld) 0.1 % 0.0 - 2.0 % [facility] Eosinophils (Bld) [#/Vol] 0.01 10*3/uL [facility] Eosinophils/100 WBC (Bld) 0.1 % 0.0 - 6.0 % [facility] Erythrocyte distribution width (RBC) [Ratio] 15.4 % High 11.5 - 14.5 % [facility] Hematocrit (Bld) [Volume fraction] 48.2 % 41.0 - 52.0 % [facility] Hemoglobin (Bld) [Mass/Vol] 14.9 g/dL 13.5 - 17.5 g/dL [facility] Immature granulocytes (Bld) [#/Vol] 0.14 10*3/uL [facility] Immature granulocytes/100 WBC (Bld) 0.7 % 0.0 - 0.9 % [facility] Interpretation and review of laboratory results Abnormal [facility] Lymphocytes (Bld) [#/Vol] 0.7 10*3/uL Low [facility] Lymphocytes/100 WBC (Bld) 3.6 % 13.0 - 44.0 % [facility] MCH (RBC) [Entitic mass] 30.8 pg 26.0 - 34.0 pg [facility] MCHC (RBC) [Mass/Vol] 30.9 g/dL Low 32.0 - 36.0 g/dL [facility] MCV (RBC) [Entitic vol] 100 fL 80 - 100 fL [facility] Monocytes (Bld) [#/Vol] 0.92 10*3/uL High [facility] Monocytes/100 WBC (Bld) 4.8 % 2.0 - 10.0 % [facility] Neutrophils (Bld) [#/Vol] 17.43 10*3/uL High [facility] Neutrophils/100 WBC (Bld) 90.7 % 40.0 - 80.0 % [facility] Nucleated RBC/100 WBC (Bld) [Ratio] 0 % [facility] Platelets (Bld) [#/Vol] 236 10*3/uL [facility] RBC (Bld) [#/Vol] 4.83 10*6/uL [facility] WBC (Bld) [#/Vol] 19.2 10*3/uL [facility] Basophils (Bld) [#/Vol] 0.02 x10*3/uL Normal 0.00-0.10 [facility] Comment on above: Performed By: #### 2 4323-8 #### EMANUEL FLOR ([id number]) [facility] ([facility]) [address] [place] [address] 08090 Basophils/100 WBC (Bld) 0.1 % Normal 0.0-2.0 [facility] Comment on above: Performed By: #### 2 4323-8 #### EMANUEL FLOR ([id number]) [facility] ([facility]) [address] [place] [address] 78761 Eosinophils (Bld) [#/Vol] 0.01 x10*3/uL Normal 0.00-0.40 [facility] Comment on above: Performed By: #### 2 4323-8 #### EMANUEL FLOR ([id number]) [facility] ([facility]) [address] [place] [address] 54296 Eosinophils/100 WBC (Bld) 0.1 % Normal 0.0-6.0 [facility] Comment on above: Performed By: #### 2 4323-8 #### EMANUEL FLOR ([id number]) [facility] ([facility]) [address] [place] [address] 81913 Erythrocyte distribution width (RBC) [Ratio] 15.4 % High 11.5-14.5 [facility] Comment on above: Performed By: #### 2 4322-8 #### EMANUEL FLOR ([id number]) [facility] ([facility]) [address] [place] [address] 61711 Hematocrit (Bld) [Volume fraction] 48.2 % Normal 41.0-52.0 [facility] Comment on above: Performed By: #### 2 432-8 #### EMANUEL FLOR ([id number]) [facility] ([facility]) [address] [place] [address] 30310 Hemoglobin (Bld) [Mass/Vol] 14.9 g/dL Normal 13.5-17.5 [facility] Comment on above: Performed By: #### 2 4323-8 #### EMANUEL FLOR ([id number]) [facility] ([facility]) [address] [place] [address] 09948 Immature granulocytes (Bld) [#/Vol] 0.14 x10*3/uL Normal 0.00-0.50 [facility] Comment on above: Performed By: #### 2 4323-8 #### EMANUEL FLOR ([id number]) [facility] ([facility]) [address] [place] [address] 74768 Immature granulocytes/100 WBC (Bld) 0.7 % Normal 0.0-0.9 [facility] Comment on above: Result Comment: Kathy ture Granulocyte Count (IG) includes promyelocytes, myelocytes and metamyelocytes but does not include bands. Percent differential counts (%) should be interpreted in the context of the absolute cell counts (cells/UL). Performed By: #### 2 4323-8 #### EMANUEL FLOR ([id number]) [facility] ([facility]) [address] [place] [address] 62300 Lymphocytes (Bld) [#/Vol] 0.70 x10*3/uL Low 0.80-3.00 [facility] Comment on above: Performed By: #### 2 4323-8 #### EMANUEL FLOR ([id number]) [facility] ([facility]) [address] [place] [address] 42140 Lymphocytes/100 WBC (Bld) 3.6 % Normal 13.0-44.0 [facility] Comment on above: Performed By: #### 2 4322-8 #### EMANUEL FLOR ([id number]) [facility] ([facility]) [address] [place] [address] 07681 MCH (RBC) [Entitic mass] 30.8 pg Normal 26.0-34.0 [facility] Comment on above: Performed By: #### 2 4322-8 #### EMANUEL FLOR ([id number]) [facility] ([facility]) [address] [place] [address] 65396 MCHC (RBC) [Mass/Vol] 30.9 g/dL Low 32.0-36.0 [facility] Comment on above: Performed By: #### 2 432-8 #### EMANUEL FLOR ([id number]) [facility] ([facility]) [address] [place] [address] 77211 MCV (RBC) [Entitic vol] 100 fL Normal 80-100 [facility] Comment on above: Performed By: #### 2 432-8 #### EMANUEL FLOR ([id number]) [facility] ([facility]) [address] [place] [address] 23829 Monocytes (Bld) [#/Vol] 0.92 x10*3/uL High 0.05-0.80 [facility] Comment on above: Performed By: #### 2 4323-8 #### EMANUEL FLOR ([id number]) [facility] ([facility]) [address] [place] [address] 98048 Monocytes/100 WBC (Bld) 4.8 % Normal 2.0-10.0 [facility] Comment on above: Performed By: #### 2 4323-8 #### EMANUEL FLOR ([id number]) [facility] ([facility]) [address] [place] [address] 62513 Neutrophils (Bld) [#/Vol] 17.43 x10*3/uL High 1.60-5.50 [facility] Comment on above: Result Comment: Perc ent differential counts (%) should be interpreted in the context of the absolute cell counts (cells/uL). Performed By: #### 2 4323-8 #### EMANUEL FLOR ([id number]) [facility] ([facility]) [address] [place] [address] 55877 Neutrophils/100 WBC (Bld) 90.7 % Normal 40.0-80.0 [facility] Comment on above: Performed By: #### 2 4323-8 #### EMANUEL FLOR ([id number]) [facility] ([facility]) [address] [place] [address] 12565 Nucleated RBC/100 WBC (Bld) [Ratio] 0.0 /100 WBCs Normal 0.0-0.0 [facility] Comment on above: Performed By: #### 2 4323-8 #### EMANUEL FLOR ([id number]) [facility] ([facility]) [address] [place] [address] 88437 Platelets (Bld) [#/Vol] 236 x10*3/uL Normal 150-450 [facility] Comment on above: Performed By: #### 2 4323-8 #### EMANUEL FLOR ([id number]) [facility] ([facility]) [address] [place] [address] 23595 RBC (Bld) [#/Vol] 4.83 x10*6/uL Normal 4.50-5.90 [facility] Comment on above: Performed By: #### 2 4323-8 #### EMANUEL FLOR ([id number]) [facility] ([facility]) [address] [place] [address] 12097 WBC (Bld) [#/Vol] 19.2 x10*3/uL High 4.4-11.3 [facility] Comment on above: Performed By: #### 2 4323-8 #### EMANUEL FLOR ([id number]) [facility] ([facility]) [address] [place] [address] 34119 Electrophysiology studyon SYNGO_SECTRA_C ARDIOLAB_XPER [facility] Work Phone: Glucose Test strip manual (B ld) [Mass/Vol]on 09-29-2024 Glucose [Mass/Vol] 153 mg/dL High 74 - 99 mg/dL [facility] Interpretation and review of laboratory results Abnormal [facility] Glucose [Mass/Vol] 153 mg/dL High 74-99 [facility] Comment on above: Performed By: #### 5 7021-8 #### EMANUEL FLOR ([id number]) [facility] ([facility]) [address] [place] [address] 28660 Glucose [Mass/Vol] 131 mg/dL High 74 - 99 mg/dL [facility] Interpretation and review of laboratory results Abnormal [facility] Glucose [Mass/Vol] 131 mg/dL High 74-99 [facility] Comment on above: Performed By: #### 5 7021-8 #### EMANUEL FLOR ([id number]) [facility] ([facility]) [address] [place] [address] 39160 Glucose [Mass/Vol] 168 mg/dL High 74 - 99 mg/dL [facility] Interpretation and review of laboratory results Abnormal [facility] Glucose [Mass/Vol] 168 mg/dL High 74-99 [facility] Comment on above: Performed By: #### 5 7021-8 #### EMANUEL FLOR ([id number]) [facility] ([facility]) [address] [place] [address] 20640 Glucose [Mass/Vol] 154 mg/dL High 74 - 99 mg/dL [facility] Interpretation and review of laboratory results Abnormal [facility] Glucose [Mass/Vol] 154 mg/dL High 74-99 [facility] Comment on above: Performed By: #### 5 7021-8 #### EMANUEL FLOR ([id number]) [facility] ([facility]) [address] [place] [address] 06071 Magnesiumon 09-29-2024 Magnesium [Mass/Vol] 2.48 mg/dL High 1.60 - 2.40 mg/dL [facility] Magnesium [Mass/Vol] 2.48 mg/dL High 1.60-2.40 [facility] Comment on above: Performed By: #### 5 7021-8 #### EMANUEL FLOR ([id number]) [facility] ([facility]) [address] [place] [address] 71018 Magnesium [Mass/Vol]on 09-29 Interpretation and review of laboratory results Abnormal [facility] No Panel Informationon 09-29 Blood Expiration Date 10/16/2024 11:59:00 PM EDT [facility] Dispense Status RE [facility] PRODUCT BLOOD TYPE [facility] PRODUCT CODE [id number] [facility] Unit ABO O [facility] Unit RH Positive [facility] UNIT VOLUME 350 [facility] XM INTEP COMP [facility] UH MMODAL UH MMODAL [facility] Work Phone: No Panel InformationOrdered By: Cutris Nichols on 09-29-2024 [facility] Work Phone: Prepare RBC: 4 Unitson 09-29 Blood Expiration Date 10/17/2024 11:59:00 PM EDT [facility] Unit Number [id number] [facility] Unit Number [id number] [facility] Unit Number [id number] [facility] Unit Number [id number] [facility] Renal function 2000 panelon 09-29-2024 Albumin BCP dye [Mass/Vol] 3.8 g/dL 3.4 - 5.0 g/dL [facility] Anion gap [Moles/Vol] 22 mmol/L High 10 - 2 0 mmol/L [facility] Calcium [Mass/Vol] 9.3 mg/dL 8.6 - 10. 6 mg/dL [facility] Chloride [Moles/Vol] 102 mmol/L 98 - 10 7 mmol/L [facility] CO2 [Moles/Vol] 22 mmol/L 21 - 32 mmol/L [facility] Creatinine [Mass/Vol] 0.79 mg/dL 0.50 - 1.30 mg/dL [facility] GFR/1.73 sq M.predicted among non-blacks MDRD (S/P/Bld) [Vol rate/Area] 89 mL/min/{1.73_m2} - PINF [facility] Glucose [Mass/Vol] 139 mg/dL High 74 - 99 mg/dL [facility] Interpretation and review of laboratory results Abnormal [facility] Phosphate [Mass/Vol] 3 mg/dL 2.5 - 4 .9 mg/dL [facility] Potassium [Moles/Vol] 4.3 mmol/L 3.5 - 5.3 mmol/L [facility] Sodium [Moles/Vol] 142 mmol/L 136 - 145 mmol/L [facility] Urea nitrogen [Mass/Vol] 30 mg/dL High 6 - 23 mg/dL [facility] Albumin BCP dye [Mass/Vol] 3.8 g/dL Normal 3.4-5.0 [facility] Comment on above: Performed By: #### 5 7021-8 #### EMANUEL FLOR ([id number]) [facility] ([facility]) [facility] [place] [address] Anion gap [Moles/Vol] 22 mmol/L High 10-20 [facility] Comment on above: Performed By: #### 5 7021-8 #### EMANUEL FLOR ([id number]) [facility] ([facility]) [facility] [place] [address] Calcium [Mass/Vol] 9.3 mg/dL Normal 8.6-10.6 [facility] Comment on above: Performed By: #### 5 7021-8 #### EMANUEL FLOR ([id number]) [facility] ([facility]) [address] [place] [address] Chloride [Moles/Vol] 102 mmol/L Normal 98-107 [facility] Comment on above: Performed By: #### 5 7021-8 #### EMANUEL FLOR ([id number]) [facility] ([facility]) [address] [place] [address] 90040 CO2 [Moles/Vol] 22 mmol/L Normal 21-32 [facility] Comment on above: Performed By: #### 5 7021-8 #### EMANUEL FLOR ([id number]) [facility] ([facility]) [address] [place] [address] 62706 Creatinine [Mass/Vol] 0.79 mg/dL Normal 0.50-1.30 [facility] Comment on above: Performed By: #### 5 7021-8 #### EMANUEL FLOR ([id number]) [facility] ([facility]) [address] [place] [address] 71827 Glomerular filtration rate/1.73 sq M.predicted 89 mL/min/1.73m*2 Normal >60 [facility] Comment on above: Result Comment: Calc ulations of estimated GFR are performed using the 2020 CKD-EPI Study Refit equation without the race variable for the IDMS-Traceable creatinine methods. https://jasn.asnjournals.org/content/early/ASN.83524 72338 Performed By: #### 5 7021-8 #### EMANUEL FLOR ([id number]) [facility] ([facility]) [address] [place] [address] 43464 Glucose [Mass/Vol] 139 mg/dL High 74-99 [facility] Comment on above: Performed By: #### 5 7021-8 #### EMANUEL FLOR ([id number]) [facility] ([facility]) [facility] [place] [address] Phosphate [Mass/Vol] 3.0 mg/dL Normal 2.5-4.9 [facility] Comment on above: Result Comment: The performance characteristics of phosphorus testing in heparinized plasma have been validated by the individual laboratory site where testing is performed. Testing on heparinized plasma is not approved by the FDA; however, such approval is not necessary. Performed By: #### 5 7021-8 #### EMANUEL FLOR ([id number]) [facility] ([facility]) [address] [place] [address] 42216 Potassium [Moles/Vol] 4.3 mmol/L Normal 3.5-5.3 [facility] Comment on above: Performed By: #### 5 7021-8 #### EMANUEL FLOR ([id number]) [facility] ([facility]) [address] [place] [address] 53458 Sodium [Moles/Vol] 142 mmol/L Normal 136-145 [facility] Comment on above: Performed By: #### 5 7021-8 #### EMANUEL FLOR ([id number]) [facility] ([facility]) [address] [place] [address] 48556 Urea nitrogen [Mass/Vol] 30 mg/dL High 6-23 [facility] Comment on above: Performed By: #### 5 7021-8 #### EMANUEL FLOR ([id number]) [facility] ([facility]) [address] [place] [address] 65414 XR ABDOMEN 1 VIEWon 09-30-19 25 XR ABDOMEN 1 VIEW Interpreted By: Curtis Nichols and Chavez Guillermo STUDY: XR CHEST 1 VIEW; XR ABDOMEN 1 VIEW; 09/29/2024 7:14 am; 09/29/2024 7:13 am INDICATION: Signs/Symptoms:pneumop eritoneum monitoring; Signs/Symptoms:abdomin al pain. COMPARISON: Chest radiograph 09/28/2024. ACCESSION NUMBER(S): [id number]; [id number] ORDERING CLINICIAN: CRISTOBAL DUNBAR FINDINGS: AP radiograph of the chest was provided. 3 AP abdominal radiographs provided. MEDICAL DEVICES: Esophageal stent in place overlying the esophagus with the stable positioning. Left chest wall pacemaker/AICD with leads overlying the cardiomediastinal silhouette. Enteric tube overlies the esophagus and courses under the left hemidiaphragm with the tip projecting over the gastric fundus/body. CARDIOMEDIASTINAL SILHOUETTE: Cardiomediastinal silhouette is stable in size and configuration. No significant pneumomediastinum. LUNGS: Increase blunting of the left costophrenic angle. No evidence of pneumothorax. The right lung is clear. ABDOMEN: Similar appearance of small amount of pneumoperitoneum. Gaseous distention of multiple loops of small and large bowel. Contrast visualized throughout the large bowel to the level of the mid descending colon. Moderate colonic stool burden. BONES: No acute osseous changes. IMPRESSION: 1. Esophageal stent in similar position as compared to prior. No significant pneumomediastinum. 2. Slight interval increase in the size of the left pleural effusion with adjacent atelectasis/consolidat ion. 3. Mild gaseous distention of multiple loops of small and large bowel in a nonobstructive bowel gas pattern. Contrast is visualized throughout the large bowel to the level of the mid descending colon. 4. Moderate colonic stool burden. I personally reviewed the images/study and resident's interpretation and I agree with the findings as stated by Mima Byrne MD (resident radiologist). This study was analyzed and interpreted at [place], [place]. MACRO: None Signed by: Curtis Nichols 09/29/2024 10:25 AM Dictation workstation: [id number] Normal [facility] XR Abdomen Single viewon Radiology Study observation (narrative) [facility] Work Phone: XR CHEST 1 VIEWon 09-29-2024 XR CHEST 1 VIEW Interpreted By: Curtis Nichols and Hofer Lindsay STUDY: XR CHEST 1 VIEW; XR ABDOMEN 1 VIEW; 09/29/2024 7:14 am; 09/29/2024 7:13 am INDICATION: Signs/Symptoms:pneumop eritoneum monitoring; Signs/Symptoms:abdomin al pain. COMPARISON: Chest radiograph 09/28/2024. ACCESSION NUMBER(S): [id number]; [id number] ORDERING CLINICIAN: CRISTOBAL DUNBAR FINDINGS: AP radiograph of the chest was provided. 3 AP abdominal radiographs provided. MEDICAL DEVICES: Esophageal stent in place overlying the esophagus with the stable positioning. Left chest wall pacemaker/AICD with leads overlying the cardiomediastinal silhouette. Enteric tube overlies the esophagus and courses under the left hemidiaphragm with the tip projecting over the gastric fundus/body. CARDIOMEDIASTINAL SILHOUETTE: Cardiomediastinal silhouette is stable in size and configuration. No significant pneumomediastinum. LUNGS: Increase blunting of the left costophrenic angle. No evidence of pneumothorax. The right lung is clear. ABDOMEN: Similar appearance of small amount of pneumoperitoneum. Gaseous distention of multiple loops of small and large bowel. Contrast visualized throughout the large bowel to the level of the mid descending colon. Moderate colonic stool burden. BONES: No acute osseous changes. IMPRESSION: 1. Esophageal stent in similar position as compared to prior. No significant pneumomediastinum. 2. Slight interval increase in the size of the left pleural effusion with adjacent atelectasis/consolidat ion. 3. Mild gaseous distention of multiple loops of small and large bowel in a nonobstructive bowel gas pattern. Contrast is visualized throughout the large bowel to the level of the mid descending colon. 4. Moderate colonic stool burden. I personally reviewed the images/study and resident's interpretation and I agree with the findings as stated by Mima Byrne MD (resident radiologist). This study was analyzed and interpreted at [place], [place]. MACRO: None Signed by: Curtis Nichols 09/29/2024 10:25 AM Dictation workstation: [id number] Normal [facility] XR Chest Single viewon 09-29 Radiology Study observation (narrative) [facility] Work Phone: CBC W Auto Differential pane l (Bld)on 09-28-2024 Basophils (Bld) [#/Vol] 0.03 10*3/uL [facility] Basophils/100 WBC (Bld) 0.2 % 0.0 - 2.0 % [facility] Eosinophils (Bld) [#/Vol] 0 10*3/uL [facility] Eosinophils/100 WBC (Bld) 0 % 0.0 - 6.0 % [facility] Erythrocyte distribution width (RBC) [Ratio] 15.3 % High 11.5 - 14.5 % [facility] Hematocrit (Bld) [Volume fraction] 43.3 % 41.0 - 52.0 % [facility] Hemoglobin (Bld) [Mass/Vol] 14.4 g/dL 13.5 - 17.5 g/dL [facility] Immature granulocytes (Bld) [#/Vol] 0.11 10*3/uL [facility] Immature granulocytes/100 WBC (Bld) 0.6 % 0.0 - 0.9 % [facility] Interpretation and review of laboratory results Abnormal [facility] Lymphocytes (Bld) [#/Vol] 0.92 10*3/uL [facility] Lymphocytes/100 WBC (Bld) 5.2 % 13.0 - 44.0 % [facility] MCH (RBC) [Entitic mass] 30.9 pg 26.0 - 34.0 pg [facility] MCHC (RBC) [Mass/Vol] 33.3 g/dL 32.0 - 36.0 g/dL [facility] MCV (RBC) [Entitic vol] 93 fL 80 - 100 fL [facility] Monocytes (Bld) [#/Vol] 1.01 10*3/uL High [facility] Monocytes/100 WBC (Bld) 5.7 % 2.0 - 10.0 % [facility] Neutrophils (Bld) [#/Vol] 15.65 10*3/uL High [facility] Neutrophils/100 WBC (Bld) 88.3 % 40.0 - 80.0 % [facility] Nucleated RBC/100 WBC (Bld) [Ratio] 0 % [facility] Platelets (Bld) [#/Vol] 236 10*3/uL [facility] RBC (Bld) [#/Vol] 4.66 10*6/uL [facility] WBC (Bld) [#/Vol] 17.7 10*3/uL High [facility] Basophils (Bld) [#/Vol] 0.03 x10*3/uL Normal 0.00-0.10 [facility] Comment on above: Performed By: #### 2 432-8 #### EMANUEL FLOR ([id number]) [facility] ([facility]) [address] [place] [address] 17405 Basophils/100 WBC (Bld) 0.2 % Normal 0.0-2.0 [facility] Comment on above: Performed By: #### 2 4322-8 #### EMANUEL FLOR ([id number]) [facility] ([facility]) [address] [place] [address] 41647 Eosinophils (Bld) [#/Vol] 0.00 x10*3/uL Normal 0.00-0.40 [facility] Comment on above: Performed By: #### 2 4322-8 #### EMANUEL FLOR ([id number]) [facility] ([facility]) [address] [place] [address] 46798 Eosinophils/100 WBC (Bld) 0.0 % Normal 0.0-6.0 [facility] Comment on above: Performed By: #### 2 4322-8 #### EMANUEL FLOR ([id number]) [facility] ([facility]) [address] [place] [address] 13095 Erythrocyte distribution width (RBC) [Ratio] 15.3 % High 11.5-14.5 [facility] Comment on above: Performed By: #### 2 4322-8 #### EMANUEL FLOR ([id number]) [facility] ([facility]) [address] [place] [address] 86274 Hematocrit (Bld) [Volume fraction] 43.3 % Normal 41.0-52.0 [facility] Comment on above: Performed By: #### 2 4322-8 #### EMANUEL FLOR ([id number]) [facility] ([facility]) [address] [place] [address] 53719 Hemoglobin (Bld) [Mass/Vol] 14.4 g/dL Normal 13.5-17.5 [facility] Comment on above: Performed By: #### 2 4322-8 #### EMANUEL FLOR ([id number]) [facility] ([facility]) [address] [place] [address] 75125 Immature granulocytes (Bld) [#/Vol] 0.11 x10*3/uL Normal 0.00-0.50 [facility] Comment on above: Performed By: #### 2 4323-8 #### EMANUEL FLOR ([id number]) [facility] ([facility]) [address] [place] [address] 39175 Immature granulocytes/100 WBC (Bld) 0.6 % Normal 0.0-0.9 [facility] Comment on above: Result Comment: Kathy ture Granulocyte Count (IG) includes promyelocytes, myelocytes and metamyelocytes but does not include bands. Percent differential counts (%) should be interpreted in the context of the absolute cell counts (cells/UL). Performed By: #### 2 432-8 #### EMANUEL FLOR ([id number]) [facility] ([facility]) [address] [place] [address] 49799 Lymphocytes (Bld) [#/Vol] 0.92 x10*3/uL Normal 0.80-3.00 [facility] Comment on above: Performed By: #### 2 432-8 #### EMANUEL FLOR ([id number]) [facility] ([facility]) [address] [place] [address] 70957 Lymphocytes/100 WBC (Bld) 5.2 % Normal 13.0-44.0 [facility] Comment on above: Performed By: #### 2 432-8 #### EMANUEL FLOR ([id number]) [facility] ([facility]) [address] [place] [address] 58490 MCH (RBC) [Entitic mass] 30.9 pg Normal 26.0-34.0 [facility] Comment on above: Performed By: #### 2 432-8 #### EMANUEL FLOR ([id number]) [facility] ([facility]) [address] [place] [address] 88626 MCHC (RBC) [Mass/Vol] 33.3 g/dL Normal 32.0-36.0 [facility] Comment on above: Performed By: #### 2 4323-8 #### EMANUEL FLOR ([id number]) [facility] ([facility]) [address] [place] [address] 63805 MCV (RBC) [Entitic vol] 93 fL Normal 80-100 [facility] Comment on above: Performed By: #### 2 4323-8 #### EMANUEL FLOR ([id number]) [facility] ([facility]) [address] [place] [address] 60451 Monocytes (Bld) [#/Vol] 1.01 x10*3/uL High 0.05-0.80 [facility] Comment on above: Performed By: #### 2 4323-8 #### EMANUEL FLOR ([id number]) [facility] ([facility]) [address] [place] [address] 42451 Monocytes/100 WBC (Bld) 5.7 % Normal 2.0-10.0 [facility] Comment on above: Performed By: #### 2 4323-8 #### EMANUEL FLOR ([id number]) [facility] ([facility]) [address] [place] [address] 70259 Neutrophils (Bld) [#/Vol] 15.65 x10*3/uL High 1.60-5.50 [facility] Comment on above: Result Comment: Perc ent differential counts (%) should be interpreted in the context of the absolute cell counts (cells/uL). Performed By: #### 2 4323-8 #### EMANUEL FLOR ([id number]) [facility] ([facility]) [address] [place] [address] 54737 Neutrophils/100 WBC (Bld) 88.3 % Normal 40.0-80.0 [facility] Comment on above: Performed By: #### 2 4323-8 #### EMANUEL FLOR ([id number]) [facility] ([facility]) [address] [place] [address] 94104 Nucleated RBC/100 WBC (Bld) [Ratio] 0.0 /100 WBCs Normal 0.0-0.0 [facility] Comment on above: Performed By: #### 2 4323-8 #### EMANUEL FLOR ([id number]) [facility] ([facility]) [address] [place] [address] 95750 Platelets (Bld) [#/Vol] 236 x10*3/uL Normal 150-450 [facility] Comment on above: Performed By: #### 2 4323-8 #### EMANUEL FLOR ([id number]) [facility] ([facility]) [address] [place] [address] 86353 RBC (Bld) [#/Vol] 4.66 x10*6/uL Normal 4.50-5.90 [facility] Comment on above: Performed By: #### 2 4323-8 #### EMANUEL FLOR ([id number]) [facility] ([facility]) [address] [place] [address] 61185 WBC (Bld) [#/Vol] 17.7 x10*3/uL High 4.4-11.3 [facility] Comment on above: Performed By: #### 2 4323-8 #### EMANUEL FLOR ([id number]) [facility] ([facility]) [address] [place] [address] 74100 Glucose Test strip manual (B ld) [Mass/Vol]on 09-28-2024 Glucose [Mass/Vol] 134 mg/dL High 74 - 99 mg/dL [facility] Interpretation and review of laboratory results Abnormal [facility] Glucose [Mass/Vol] 134 mg/dL High 74-99 [facility] Comment on above: Performed By: #### 2 4323-8 #### EMANUEL FLOR ([id number]) [facility] ([facility]) [address] [place] [address] 0[address] Glucose [Mass/Vol] 141 mg/dL High 74 - 99 mg/dL [facility] Interpretation and review of laboratory results Abnormal [facility] Glucose [Mass/Vol] 141 mg/dL High 74-99 [facility] Comment on above: Performed By: #### 2 4323-8 #### EMANUEL FLOR ([id number]) [facility] ([facility]) [address] [place] [address] 68518 Glucose [Mass/Vol] 134 mg/dL High 74 - 99 mg/dL [facility] Interpretation and review of laboratory results Abnormal [facility] Glucose [Mass/Vol] 134 mg/dL High 74-99 [facility] Comment on above: Performed By: #### 2 4323-8 #### EMANUEL FLOR ([id number]) [facility] ([facility]) [address] [place] [address] Magnesiumon 09-28-2024 Magnesium [Mass/Vol] 2.29 mg/dL 1.60 - 2.40 mg/dL [facility] Magnesium [Mass/Vol] 2.29 mg/dL Normal 1.60-2.40 [facility] Comment on above: Performed By: #### 2 4323-8 #### EMANUEL FLOR ([id number]) [facility] ([facility]) [address] [place] [address] Magnesium [Mass/Vol]on 09-28 Interpretation and review of laboratory results Normal [facility] No Panel Informationon 09-28 [facility] Renal function 2000 panelon 09-28-2024 Albumin BCP dye [Mass/Vol] 3.5 g/dL 3.4 - 5.0 g/dL [facility] Anion gap [Moles/Vol] 19 mmol/L 10 - 2 0 mmol/L [facility] Calcium [Mass/Vol] 8.9 mg/dL 8.6 - 10. 6 mg/dL [facility] Chloride [Moles/Vol] 103 mmol/L 98 - 10 7 mmol/L [facility] CO2 [Moles/Vol] 24 mmol/L 21 - 32 mmol/L [facility] Creatinine [Mass/Vol] 0.87 mg/dL 0.50 - 1.30 mg/dL [facility] GFR/1.73 sq M.predicted among non-blacks MDRD (S/P/Bld) [Vol rate/Area] 87 mL/min/{1.73_m2} - PINF [facility] Glucose [Mass/Vol] 123 mg/dL High 74 - 99 mg/dL [facility] Interpretation and review of laboratory results Abnormal [facility] Phosphate [Mass/Vol] 4.4 mg/dL 2.5 - 4 .9 mg/dL [facility] Potassium [Moles/Vol] 4.4 mmol/L 3.5 - 5.3 mmol/L [facility] Sodium [Moles/Vol] 142 mmol/L 136 - 145 mmol/L [facility] Urea nitrogen [Mass/Vol] 25 mg/dL High 6 - 23 mg/dL [facility] Albumin BCP dye [Mass/Vol] 3.5 g/dL Normal 3.4-5.0 [facility] Comment on above: Performed By: #### 2 4323-8 #### EMANUEL FLOR ([id number]) [facility] ([facility]) [address] [place] [address]809 Anion gap [Moles/Vol] 19 mmol/L Normal 10-20 [facility] Comment on above: Performed By: #### 2 432-8 #### EMANUEL FLOR ([id number]) [facility] ([facility]) [address] [place] [address] 34982 Calcium [Mass/Vol] 8.9 mg/dL Normal 8.6-10.6 [facility] Comment on above: Performed By: #### 2 4323-8 #### EMANUEL FLOR ([id number]) [facility] ([facility]) [address] [place] [address] 80124 Chloride [Moles/Vol] 103 mmol/L Normal 98-107 [facility] Comment on above: Performed By: #### 2 4323-8 #### EMANUEL FLOR ([id number]) [facility] ([facility]) [address] [place] [address] 71206 CO2 [Moles/Vol] 24 mmol/L Normal 21-32 [facility] Comment on above: Performed By: #### 2 4323-8 #### EMANUEL FLOR ([id number]) [facility] ([facility]) [address] [place] [address] 75545 Creatinine [Mass/Vol] 0.87 mg/dL Normal 0.50-1.30 [facility] Comment on above: Performed By: #### 2 432-8 #### EMANUEL FLOR ([id number]) [facility] ([facility]) [address] [place] [address] 01188 Glomerular filtration rate/1.73 sq M.predicted 87 mL/min/1.73m*2 Normal >60 [facility] Comment on above: Result Comment: Calc ulations of estimated GFR are performed using the 2020 CKD-EPI Study Refit equation without the race variable for the IDMS-Traceable creatinine methods. https://jasn.asnjournals.org/content/early/ASN.49828 39249 Performed By: #### 2 4323-8 #### EMANUEL FLOR ([id number]) [facility] ([facility]) [address] [place] [address] 58611 Glucose [Mass/Vol] 123 mg/dL High 74-99 [facility] Comment on above: Performed By: #### 2 4323-8 #### EMANUEL FLOR ([id number]) [facility] ([facility]) [address] [place] [address] 74924 Phosphate [Mass/Vol] 4.4 mg/dL Normal 2.5-4.9 [facility] Comment on above: Result Comment: The performance characteristics of phosphorus testing in heparinized plasma have been validated by the individual laboratory site where testing is performed. Testing on heparinized plasma is not approved by the FDA; however, such approval is not necessary. Performed By: #### 2 4323-8 #### EMANUEL FLOR ([id number]) [facility] ([facility]) [address] [place] [address] 19753 Potassium [Moles/Vol] 4.4 mmol/L Normal 3.5-5.3 [facility] Comment on above: Performed By: #### 2 4323-8 #### EMANUEL FLOR ([id number]) [facility] ([facility]) [address] [place] [address] 92101 Sodium [Moles/Vol] 142 mmol/L Normal 136-145 [facility] Comment on above: Performed By: #### 2 4323-8 #### EMANUEL FLOR ([id number]) [facility] ([facility]) [address] [place] [address] Urea nitrogen [Mass/Vol] 25 mg/dL High 6-23 [facility] Comment on above: Performed By: #### 2 4323-8 #### CASTELLANOS CHACHO ([id number]) [facility] ([facility]) [address] [place] [address] XR CHEST 1 VIEWon 09-28-2024 XR CHEST 1 VIEW Interpreted By: Rocio De La Cruz, and Suman Arriaga STUDY: XR CHEST 1 VIEW; 09/28/2024 9:24 am INDICATION: Signs/Symptoms:Post esophageal perforation and stent placement monitoring. COMPARISON: Chest x-ray from 09/27/2024 ACCESSION NUMBER(S): [id number] ORDERING CLINICIAN: CRISTOBAL DUNBAR FINDINGS: AP radiograph of the chest was provided. There is a esophageal stent in place overlying the esophagus with stable positioning. Enteric tube is seen terminating beyond [id number] of the study. 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 CARDIOMEDIASTINAL SILHOUETTE: Cardiomediastinal silhouette is normal in size and configuration. LUNGS: Blunting of the left costophrenic angle. Bibasilar opacities likely reflect atelectasis. Improvement in pneumoperitoneum. No evidence of pneumothorax. ABDOMEN: Interval improvement in pneumoperitoneum. BONES: No acute osseous changes. IMPRESSION: 1. Stable positioning of esophageal stent with improvement in pneumomediastinum when compared to prior exam. 2. Small left pleural effusion with bibasilar atelectasis. I personally reviewed the images/study and I agree with the findings as stated by Corina Will MD, PGY-2 this study was interpreted at [place], [place]. MACRO: None Signed by: Rocio De La Cruz 09/28/2024 10:00 AM Dictation workstation: [id number] Normal [facility] XR Chest Single viewon 09-28 [facility] MM[facility]AL [facility] MMODAL [facility] Work Phone: [facility] Work Phone: Radiology Study observation (narrative) [facility] Work Phone: CBC W Auto Differential pane l (Bld)on 09-27-2024 Basophils (Bld) [#/Vol] 0.03 10*3/uL [facility] Basophils/100 WBC (Bld) 0.2 % 0.0 - 2.0 % [facility] Eosinophils (Bld) [#/Vol] 0.03 10*3/uL [facility] Eosinophils/100 WBC (Bld) 0.2 % 0.0 - 6.0 % [facility] Erythrocyte distribution width (RBC) [Ratio] 15.6 % High 11.5 - 14.5 % [facility] Hematocrit (Bld) [Volume fraction] 43.9 % 41.0 - 52.0 % [facility] Hemoglobin (Bld) [Mass/Vol] 14.6 g/dL 13.5 - 17.5 g/dL [facility] Immature granulocytes (Bld) [#/Vol] 0.11 10*3/uL [facility] Immature granulocytes/100 WBC (Bld) 0.7 % 0.0 - 0.9 % [facility] Interpretation and review of laboratory results Abnormal [facility] Lymphocytes (Bld) [#/Vol] 1.06 10*3/uL [facility] Lymphocytes/100 WBC (Bld) 6.8 % 13.0 - 44.0 % [facility] MCH (RBC) [Entitic mass] 31.1 pg 26.0 - 34.0 pg [facility] MCHC (RBC) [Mass/Vol] 33.3 g/dL 32.0 - 36.0 g/dL [facility] MCV (RBC) [Entitic vol] 94 fL 80 - 100 fL [facility] Monocytes (Bld) [#/Vol] 0.95 10*3/uL High [facility] Monocytes/100 WBC (Bld) 6.1 % 2.0 - 10.0 % [facility] Neutrophils (Bld) [#/Vol] 13.47 10*3/uL High [facility] Neutrophils/100 WBC (Bld) 86 % 40.0 - 80.0 % [facility] Nucleated RBC/100 WBC (Bld) [Ratio] 0 % [facility] Platelets (Bld) [#/Vol] 220 10*3/uL [facility] RBC (Bld) [#/Vol] 4.69 10*6/uL [facility] WBC (Bld) [#/Vol] 15.7 10*3/uL High [facility] Basophils (Bld) [#/Vol] 0.03 x10*3/uL Normal 0.00-0.10 [facility] Comment on above: Performed By: #### 2 4323-8 #### EMANUEL FLOR ([id number]) [facility] ([facility]) [address] [place] [address] 82050 Basophils/100 WBC (Bld) 0.2 % Normal 0.0-2.0 [facility] Comment on above: Performed By: #### 2 4323-8 #### EMANUEL FLOR ([id number]) [facility] ([facility]) [address] [place] [address] 81441 Eosinophils (Bld) [#/Vol] 0.03 x10*3/uL Normal 0.00-0.40 [facility] Comment on above: Performed By: #### 2 4323-8 #### EMANUEL FLOR ([id number]) [facility] ([facility]) [address] [place] [address] 39126 Eosinophils/100 WBC (Bld) 0.2 % Normal 0.0-6.0 [facility] Comment on above: Performed By: #### 2 4323-8 #### EMANUEL FLOR ([id number]) [facility] ([facility]) [address] [place] [address] 49979 Erythrocyte distribution width (RBC) [Ratio] 15.6 % High 11.5-14.5 [facility] Comment on above: Performed By: #### 2 4323-8 #### EMANUEL FLOR ([id number]) [facility] ([facility]) [address] [place] [address] 58471 Hematocrit (Bld) [Volume fraction] 43.9 % Normal 41.0-52.0 [facility] Comment on above: Performed By: #### 2 4323-8 #### EMANUEL FLOR ([id number]) [facility] ([facility]) [address] [place] [address] 34847 Hemoglobin (Bld) [Mass/Vol] 14.6 g/dL Normal 13.5-17.5 [facility] Comment on above: Performed By: #### 2 4323-8 #### EMANUEL FLOR ([id number]) [facility] ([facility]) [address] [place] [address] 83120 Immature granulocytes (Bld) [#/Vol] 0.11 x10*3/uL Normal 0.00-0.50 [facility] Comment on above: Performed By: #### 2 4323-8 #### EMANUEL FLOR ([id number]) [facility] ([facility]) [address] [place] [address] 74916 Immature granulocytes/100 WBC (Bld) 0.7 % Normal 0.0-0.9 [facility] Comment on above: Result Comment: Kathy ture Granulocyte Count (IG) includes promyelocytes, myelocytes and metamyelocytes but does not include bands. Percent differential counts (%) should be interpreted in the context of the absolute cell counts (cells/UL). Performed By: #### 2 4323-8 #### EMANUEL FLOR ([id number]) [facility] ([facility]) [address] [place] [address] 58088 Lymphocytes (Bld) [#/Vol] 1.06 x10*3/uL Normal 0.80-3.00 [facility] Comment on above: Performed By: #### 2 4323-8 #### EMANUEL FLOR ([id number]) [facility] ([facility]) [address] [place] [address] 24829 Lymphocytes/100 WBC (Bld) 6.8 % Normal 13.0-44.0 [facility] Comment on above: Performed By: #### 2 4323-8 #### EMANUEL FLOR ([id number]) [facility] ([facility]) [address] [place] [address] 69978 MCH (RBC) [Entitic mass] 31.1 pg Normal 26.0-34.0 [facility] Comment on above: Performed By: #### 2 4323-8 #### EMANUEL FLOR ([id number]) [facility] ([facility]) [address] [place] [address] 93327 MCHC (RBC) [Mass/Vol] 33.3 g/dL Normal 32.0-36.0 [facility] Comment on above: Performed By: #### 2 3-8 #### EMANUEL FLOR ([id number]) [facility] ([facility]) [address] [place] [address] 91017 MCV (RBC) [Entitic vol] 94 fL Normal 80-100 [facility] Comment on above: Performed By: #### 2 4322-8 #### EMANUEL FLOR ([id number]) [facility] ([facility]) [address] [place] [address] 84000 Monocytes (Bld) [#/Vol] 0.95 x10*3/uL High 0.05-0.80 [facility] Comment on above: Performed By: #### 2 3-8 #### EMANUEL FLOR ([id number]) [facility] ([facility]) [address] [place] [address] 50186 Monocytes/100 WBC (Bld) 6.1 % Normal 2.0-10.0 [facility] Comment on above: Performed By: #### 2 432-8 #### EMANUEL FLOR ([id number]) [facility] ([facility]) [address] [place] [address] 27572 Neutrophils (Bld) [#/Vol] 13.47 x10*3/uL High 1.60-5.50 [facility] Comment on above: Result Comment: Perc ent differential counts (%) should be interpreted in the context of the absolute cell counts (cells/uL). Performed By: #### 2 4323-8 #### EMANUEL FLOR ([id number]) [facility] ([facility]) [address] [place] [address] 67497 Neutrophils/100 WBC (Bld) 86.0 % Normal 40.0-80.0 [facility] Comment on above: Performed By: #### 2 4323-8 #### EMANUEL FLOR ([id number]) [facility] ([facility]) [address] [place] [address] 11634 Nucleated RBC/100 WBC (Bld) [Ratio] 0.0 /100 WBCs Normal 0.0-0.0 [facility] Comment on above: Performed By: #### 2 4323-8 #### EMANUEL FLOR ([id number]) [facility] ([facility]) [address] [place] [address] 48082 Platelets (Bld) [#/Vol] 220 x10*3/uL Normal 150-450 [facility] Comment on above: Performed By: #### 2 4323-8 #### EMAUNEL FLOR ([id number]) [facility] ([facility]) [address] [place] [address] 11837 RBC (Bld) [#/Vol] 4.69 x10*6/uL Normal 4.50-5.90 [facility] Comment on above: Performed By: #### 2 4323-8 #### EMANUEL FLOR ([id number]) [facility] ([facility]) [address] [place] [address] 78915 WBC (Bld) [#/Vol] 15.7 x10*3/uL High 4.4-11.3 [facility] Comment on above: Performed By: #### 2 4323-8 #### EMANUEL FLOR ([id number]) [facility] ([facility]) [address] [place] [address] 96288 Basophils (Bld) [#/Vol] [facility] Comment on above: Order Comment: The p reviously reported component nRBCs is no longer being reported.The previously reported component MCH is no longer being reported. Result Comment: Samp le Clotted. Please Resubmit. Performed By: #### 1 988-5 #### EMANUEL FLOR ([id number]) [facility] ([facility]) [address] [place] [address] 27118 Basophils/100 WBC (Bld) [facility] Comment on above: Order Comment: The p reviously reported component nRBCs is no longer being reported.The previously reported component MCH is no longer being reported. Result Comment: Samp le Clotted. Please Resubmit. Performed By: #### 1 988-5 #### EMANUEL FLOR ([id number]) [facility] ([facility]) [address] [place] [address] Eosinophils (Bld) [#/Vol] [facility] Comment on above: Order Comment: The p reviously reported component nRBCs is no longer being reported.The previously reported component MCH is no longer being reported. Result Comment: Samp le Clotted. Please Resubmit. Performed By: #### 1 988-5 #### EMANUEL FLOR ([id number]) [facility] ([facility]) [address] [place] [address] 62419 Eosinophils/100 WBC (Bld) [facility] Comment on above: Order Comment: The p reviously reported component nRBCs is no longer being reported.The previously reported component MCH is no longer being reported. Result Comment: Samp le Clotted. Please Resubmit. Performed By: #### 1 988-5 #### EMANUEL FLOR ([id number]) [facility] ([facility]) [address] [place] [address] 00033 Erythrocyte distribution width (RBC) [Ratio] [facility] Comment on above: Order Comment: The p reviously reported component nRBCs is no longer being reported.The previously reported component MCH is no longer being reported. Result Comment: Samp le Clotted. Please Resubmit. Performed By: #### 1 988-5 #### EMANUEL FLOR ([id number]) [facility] ([facility]) [address] [place] [address] 41821 Hematocrit (Bld) [Volume fraction] [facility] Comment on above: Order Comment: The p reviously reported component nRBCs is no longer being reported.The previously reported component MCH is no longer being reported. Result Comment: Samp le Clotted. Please Resubmit. Performed By: #### 1 988-5 #### EMANUEL FLOR ([id number]) [facility] ([facility]) [address] [place] [address] 80483 Hemoglobin (Bld) [Mass/Vol] Normal [facility] Comment on above: Order Comment: The p reviously reported component nRBCs is no longer being reported.The previously reported component MCH is no longer being reported. Result Comment: Samp le Clotted. Please Resubmit. Performed By: #### 1 988-5 #### EMANUEL FLOR ([id number]) [facility] ([facility]) [address] [place] [address] Immature granulocytes/100 WBC (Bld) [facility] Comment on above: Order Comment: The p reviously reported component nRBCs is no longer being reported.The previously reported component MCH is no longer being reported. Result Comment: Samp le Clotted. Please Resubmit. Performed By: #### 1 988-5 #### EMANUEL FLOR ([id number]) [facility] ([facility]) [address] [place] [address] 84420 Lymphocytes (Bld) [#/Vol] [facility] Comment on above: Order Comment: The p reviously reported component nRBCs is no longer being reported.The previously reported component MCH is no longer being reported. Result Comment: Samp le Clotted. Please Resubmit. Performed By: #### 1 988-5 #### EMANUEL FLOR ([id number]) [facility] ([facility]) [address] [place] [address] Lymphocytes/100 WBC (Bld) [facility] Comment on above: Order Comment: The p reviously reported component nRBCs is no longer being reported.The previously reported component MCH is no longer being reported. Result Comment: Samp le Clotted. Please Resubmit. Performed By: #### 1 988-5 #### EMANUEL FLOR ([id number]) [facility] ([facility]) [address] [place] [address] 97645 MCHC (RBC) [Mass/Vol] Normal [facility] Comment on above: Order Comment: The p reviously reported component nRBCs is no longer being reported.The previously reported component MCH is no longer being reported. Result Comment: Samp le Clotted. Please Resubmit. Performed By: #### 1 988-5 #### EMANUEL FLOR ([id number]) [facility] ([facility]) [address] [place] [address] MCV (RBC) [Entitic vol] [facility] Comment on above: Order Comment: The p reviously reported component nRBCs is no longer being reported.The previously reported component MCH is no longer being reported. Result Comment: Samp le Clotted. Please Resubmit. Performed By: #### 1 988-5 #### EMANUEL FLOR ([id number]) [facility] ([facility]) [address] [place] [address] Monocytes (Bld) [#/Vol] [facility] Comment on above: Order Comment: The p reviously reported component nRBCs is no longer being reported.The previously reported component MCH is no longer being reported. Result Comment: Samp le Clotted. Please Resubmit. Performed By: #### 1 988-5 #### EMANUEL FLOR ([id number]) [facility] ([facility]) [address] [place] [address] Monocytes/100 WBC (Bld) [facility] Comment on above: Order Comment: The p reviously reported component nRBCs is no longer being reported.The previously reported component MCH is no longer being reported. Result Comment: Samp le Clotted. Please Resubmit. Performed By: #### 1 988-5 #### EMANUEL FLOR ([id number]) [facility] ([facility]) [address] [place] [address] Neutrophils (Bld) [#/Vol] [facility] Comment on above: Order Comment: The p reviously reported component nRBCs is no longer being reported.The previously reported component MCH is no longer being reported. Result Comment: Samp le Clotted. Please Resubmit. Performed By: #### 1 988-5 #### EMANUEL FLOR ([id number]) [facility] ([facility]) [address] [place] [address] Neutrophils/100 WBC (Bld) [facility] Comment on above: Order Comment: The p reviously reported component nRBCs is no longer being reported.The previously reported component MCH is no longer being reported. Result Comment: Samp le Clotted. Please Resubmit. Performed By: #### 1 988-5 #### EMANUEL FLOR ([id number]) [facility] ([facility]) [address] [place] [address] Platelets (Bld) [#/Vol] Normal [facility] Comment on above: Order Comment: The p reviously reported component nRBCs is no longer being reported.The previously reported component MCH is no longer being reported. Result Comment: Samp le Clotted. Please Resubmit. Performed By: #### 1 988-5 #### EMANUEL FLOR ([id number]) [facility] ([facility]) [address] [place] [address] 02530 RBC (Bld) [#/Vol] Normal [facility] Comment on above: Order Comment: The p reviously reported component nRBCs is no longer being reported.The previously reported component MCH is no longer being reported. Result Comment: Samp le Clotted. Please Resubmit. Performed By: #### 1 988-5 #### EMANUEL FLOR ([id number]) [facility] ([facility]) [address] [place] [address] 98790 WBC (Bld) [#/Vol] Normal [facility] Comment on above: Order Comment: The p reviously reported component nRBCs is no longer being reported.The previously reported component MCH is no longer being reported. Result Comment: Samp le Clotted. Please Resubmit. Performed By: #### 1 988-5 #### EMANUEL FLOR ([id number]) [facility] ([facility]) [address] [place] [address] CBC W Auto Differential pane l (Bld)Ordered By: Alirio Yanez on 09-27-2024 Basophils (Bld) [#/Vol] [facility] Basophils/100 WBC (Bld) [facility] Eosinophils (Bld) [#/Vol] [facility] Eosinophils/100 WBC (Bld) [facility] Erythrocyte distribution width (RBC) [Ratio] [facility] Hematocrit (Bld) [Volume fraction] [facility] Hemoglobin (Bld) [Mass/Vol] [facility] Immature granulocytes/100 WBC (Bld) [facility] Lymphocytes (Bld) [#/Vol] [facility] Lymphocytes/100 WBC (Bld) [facility] MCHC (RBC) [Mass/Vol] [facility] MCV (RBC) [Entitic vol] [facility] Monocytes (Bld) [#/Vol] [facility] Monocytes/100 WBC (Bld) [facility] Neutrophils (Bld) [#/Vol] [facility] Neutrophils/100 WBC (Bld) [facility] Platelets (Bld) [#/Vol] [facility] RBC (Bld) [#/Vol] [facility] WBC (Bld) [#/Vol] [facility] CT Chest W contrast Ifrah [facility]AL [facility] MM[facility]AL [facility] Work Phone: [facility] Work Phone: Radiology Study observation (narrative) [facility] Work Phone: CT Chest WO contraston 09-27 [facility] Work Phone: CT Chest WO contrastOrdered By: Ankit De La Cruz on 09-27-2024 [facility] Work Phone: Glucose Test strip manual (B ld) [Mass/Vol]on 09-27-2024 Glucose [Mass/Vol] 123 mg/dL High 74 - 99 mg/dL [facility] Interpretation and review of laboratory results Abnormal [facility] Glucose [Mass/Vol] 123 mg/dL High 74-99 [facility] Comment on above: Performed By: #### 1 988-5 #### CASTELLANOS CHACHO ([id number]) [facility] ([facility]) [address] [place] [address] Magnesiumon 09-27-2024 Magnesium [Mass/Vol] 2.16 mg/dL 1.60 - 2.40 mg/dL [facility] Magnesium [Mass/Vol] 2.16 mg/dL Normal 1.60-2.40 [facility] Comment on above: Result Comment: MILD HEMOLYSIS DETECTED. The result may be falsely elevated due to hemolysis or other interferents. Clinical correlation is recommended. Repeat testing may be considered. Performed By: #### 1 988-5 #### CASTELLANOS CHACHO ([id number]) [facility] ([facility]) [address] [place] [address] Magnesium [Mass/Vol]on 09-27 Interpretation and review of laboratory results Normal [facility] No Panel Informationon 09-27 [facility] Renal function 2000 panelon 09-27-2024 Albumin BCP dye [Mass/Vol] 3.8 g/dL 3.4 - 5.0 g/dL [facility] Anion gap [Moles/Vol] 17 mmol/L 10 - 2 0 mmol/L [facility] Calcium [Mass/Vol] 9.1 mg/dL 8.6 - 10. 6 mg/dL [facility] Chloride [Moles/Vol] 103 mmol/L 98 - 10 7 mmol/L [facility] CO2 [Moles/Vol] 24 mmol/L 21 - 32 mmol/L [facility] Creatinine [Mass/Vol] 0.71 mg/dL 0.50 - 1.30 mg/dL [facility] eGFR - PINF [facility] Glucose [Mass/Vol] 116 mg/dL High 74 - 99 mg/dL [facility] Interpretation and review of laboratory results Abnormal [facility] Phosphate [Mass/Vol] 5.1 mg/dL High 2.5 - 4 .9 mg/dL [facility] Potassium [Moles/Vol] 5.1 mmol/L 3.5 - 5.3 mmol/L [facility] Sodium [Moles/Vol] 139 mmol/L 136 - 145 mmol/L [facility] Urea nitrogen [Mass/Vol] 16 mg/dL 6 - 23 mg/dL [facility] Albumin BCP dye [Mass/Vol] 3.8 g/dL Normal 3.4-5.0 [facility] Comment on above: Performed By: #### 1 988-5 #### EMANUEL FLOR ([id number]) [facility] ([facility]) [address] [place] [address]55 Anion gap [Moles/Vol] 17 mmol/L Normal 10-20 [facility] Comment on above: Performed By: #### 1 988-5 #### EMANUEL FLOR ([id number]) [facility] ([facility]) [address] [place] [address] 64518 Calcium [Mass/Vol] 9.1 mg/dL Normal 8.6-10.6 [facility] Comment on above: Performed By: #### 1 988-5 #### EMANUEL FLOR ([id number]) [facility] ([facility]) [address] [place] [address] 31853 Chloride [Moles/Vol] 103 mmol/L Normal 98-107 [facility] Comment on above: Performed By: #### 1 988-5 #### EMANUEL FLOR ([id number]) [facility] ([facility]) [address] [place] [address] 76062 CO2 [Moles/Vol] 24 mmol/L Normal 21-32 [facility] Comment on above: Performed By: #### 1 988-5 #### EMANUEL FLOR ([id number]) [facility] ([facility]) [address] [place] [address] 99621 Creatinine [Mass/Vol] 0.71 mg/dL Normal 0.50-1.30 [facility] Comment on above: Performed By: #### 1 988-5 #### EMANUEL FLOR ([id number]) [facility] ([facility]) [address] [place] [address] 90887 GFR/1.73 sq M.predicted MDRD (S/P/Bld) [Vol rate/Area] mL/min/{1.73_m2} Normal >60 [facility] Comment on above: Result Comment: Calc ulations of estimated GFR are performed using the 2020 CKD-EPI Study Refit equation without the race variable for the IDMS-Traceable creatinine methods. https://jasn.asnjournals.org/content//ASN.77282 67677 Performed By: #### 1 988-5 #### EMANUEL FLOR ([id number]) [facility] ([facility]) [address] [place] [address] 49764 Glucose [Mass/Vol] 116 mg/dL High 74-99 [facility] Comment on above: Performed By: #### 1 988-5 #### EMANUEL FLOR ([id number]) [facility] ([facility]) [address] [place] [address] 35141 Phosphate [Mass/Vol] 5.1 mg/dL High 2.5-4.9 [facility] Comment on above: Result Comment: MILD HEMOLYSIS DETECTED. The result may be falsely elevated due to hemolysis or other interferents. Clinical correlation is recommended. Repeat testing may be considered. The performance characteristics of phosphorus testing in heparinized plasma have been validated by the individual laboratory site where testing is performed. Testing on heparinized plasma is not approved by the FDA; however, such approval is not necessary. Performed By: #### 1 988-5 #### EMANUEL FLOR ([id number]) [facility] ([facility]) [address] [place] [address] 08369 Potassium [Moles/Vol] 5.1 mmol/L Normal 3.5-5.3 [facility] Comment on above: Result Comment: MILD HEMOLYSIS DETECTED. The result may be falsely elevated due to hemolysis or other interferents. Clinical correlation is recommended. Repeat testing may be considered. Performed By: #### 1 988-5 #### EMANUEL FLOR ([id number]) [facility] ([facility]) [address] [place] [address] 39758 Sodium [Moles/Vol] 139 mmol/L Normal 136-145 [facility] Comment on above: Performed By: #### 1 988-5 #### EMANUEL FLOR ([id number]) [facility] ([facility]) [address] [place] [address] 77260 Urea nitrogen [Mass/Vol] 16 mg/dL Normal 6-23 [facility] Comment on above: Performed By: #### 1 988-5 #### CASTELLANOS CHACHO ([id number]) [facility] ([facility]) [address] [place] [address] XR CHEST 1 VIEWon 09-27-2024 XR CHEST 1 VIEW Interpreted By: Rocio De La Cruz and Stevens Alex STUDY: XR CHEST 1 VIEW; 09/27/2024 12:48 pm INDICATION: Signs/Symptoms:Post EGD/stent placement for esophageal perforation. COMPARISON: XR chest 09/26/2024, CT chest 09/27/2024 ACCESSION NUMBER(S): [id number] ORDERING CLINICIAN: CRISTOBAL DUNBAR FINDINGS: AP radiograph of the chest was provided. Interval placement of a metallic esophageal stent which appears to extend from the mid esophagus to the gastroesophageal junction. Enteric tube visualized coursing below level of the diaphragm and terminating within the expected location of the gastric body. Left chest wall implantable pacemaker/defibrillato r with leads projecting over the expected location of the right atrial appendage and both ventricles. Pneumomediastinum is again visualized along the right neck and left mediastinal structures. CARDIOMEDIASTINAL SILHOUETTE: Cardiomediastinal silhouette is unchanged in size and configuration. LUNGS: Low inspiratory depth leads to accentuation of lung markings bilaterally. Hazy consolidative opacities noted within the mid to lower lung pacheco bilaterally. There is blunting of the left costophrenic angle. ABDOMEN: In addition to the patient's pneumomediastinum there are right upper quadrant lucencies and can not exclude a component of pneumoperitoneum. BONES: No acute osseous changes. IMPRESSION: 1. Interval placement of a metallic esophageal stent which appears to extend from the mid esophagus to the gastroesophageal junction. 2. Re-demonstration of pneumomediastinum which is seen along the right neck, cardiac silhouette, and left hemithorax. 3. Perihilar and bibasilar atelectasis, likely postsurgical in nature. 4. Upper quadrant lucencies and can not exclude a component of pneumoperitoneum. Decubitus views if clinically indicated. I personally reviewed the images/study and I agree with the findings as stated by Toney Modi DO PGY-2. This study was interpreted at [place], [place]. MACRO: None Signed by: Rocio De La Cruz 09/27/2024 5:02 PM Dictation workstation: [id number] Normal [facility] XR Chest Single viewon 09-27 [facility]AL [facility] MMODAL [facility] Work Phone: [facility] Work Phone: Radiology Study observation (narrative) [facility] Work Phone: ANESTHESIA INTRAOPERATIVE TE Genaro 09-26-2024 ANESTHESIA INTRAOPERATIVE ANTONIETTA [facility] - Dept of Anesthesiology [address] [place] [address] and TRANSESOPHAGEAL ECHOCARDIOGRAM REPORT Patient Name: ROCOI Pack Physician: [id number] Guaman MD Study Date: 09/26/2024 Ordering Provider: [id number] HERNANDEZ CALDERON MRN/PID: [id number] Fellow: Nurse: Date of /Age: 2 1945 Investigator Fraud: years Gender assigned at M Additional Staff: : BSA / BMI: m2 / kg/m2 Blood Pressure: / Department Location: [facility] Study Type: ANESTHESIA INTRAOPERATIVE ANTONIETTA Diagnosis/ICD: Presence of cardiac pacemaker-Z95.0 Indication: Lead extraction and replacement CPT Code: ANTONIETTA Complete-20509; Doppler Limited-17769; Color Doppler-47570 PHYSICIAN INTERPRETATION: ANTONIETTA Procedure: The probe was passed without difficulty. Left Ventricle: The left ventricular systolic function is mildly decreased, with a visually estimated ejection fraction of 40-45%. The left ventricular cavity size is normal. The left ventricular septal wall thickness is moderately increased. Left ventricular diastolic filling was not assessed. Left Atrium: The left atrial size is moderately dilated. There is no evidence of a patent foramen ovale. Right Ventricle: The right ventricle is normal in size. There is normal right ventricular global systolic function. Device lead crossing TV into RV. Right Atrium: The right atrium is normal in size. Aortic Valve: The aortic valve is trileaflet. There is no evidence of aortic valve stenosis. There is no evidence of aortic valve regurgitation. Right cusp relativly immobile. Mitral Valve: The mitral valve is normal in structure. There is no evidence of mitral valve stenosis. There is trace mitral valve regurgitation. Tricuspid Valve: The tricuspid valve is structurally normal. There is moderate tricuspid regurgitation. Pulmonic Valve: The pulmonic valve is structurally normal. There is trace pulmonic valve regurgitation. Pericardium: There is no pericardial effusion noted. Aorta: The aortic root is normal. The ascending Ao diameter is 3.7 cm. The descending aorta is classified as a Grade 2 [mild (focal or diffuse) intimal thickening of 2-3 mm] atherosclerosis. Additional Comments: Unable to obtain good transgastric images secondary to resistance to probe insertion at that depth. No attempt mad to push probe past resistance. In comparison to the previous echocardiogram(s): Not performed on intraoperative study. CONCLUSIONS: 1. The left ventricular systolic function is mildly decreased, with a visually estimated ejection fraction of 40-45%. 2. Moderately increased left ventricular septal thickness. 3. There is normal right ventricular global systolic function. 4. The left atrial size is moderately dilated. 5. Moderate tricuspid regurgitation visualized. 6. Aortic valve stenosis is not present. POST PROCEDURE REPORT: No new pericardial effusion noted after lead extraction. QUANTITATIVE DATA SUMMARY: LV SYSTOLIC FUNCTION: Normal Ranges: EF-Visual: 43 % LV EF Reported: 43 % [id number] Mika Guaman MD Electronically signed on 10/02/2024 at 1:13:23 PM Final [facility] Blood type and Indirect anti body screen panel (Bld)on 09-26-2024 ABO group Nom (Bld) O Unive [facility] Blood group antibody screen Ql Negative [facility] D Ag Ql (Bld) Positive [facility] ABO group Nom (Bld) O Normal [facility] Comment on above: Performed By: #### 4 537-7 #### EMANUEL FLOR ([id number]) [facility] ([facility]) [address] [place] [address] Blood group antibody screen Ql Negative Normal [facility] Comment on above: Performed By: #### 4 537-7 #### EMANUEL FLOR ([id number]) [facility] ([facility]) [address] [place] [id number] D Ag Ql (Bld) Positive Normal [facility] Comment on above: Performed By: #### 4 537-7 #### EMANUEL FLOR ([id number]) [facility] ([facility]) [address] [place] [address] CBC W Auto Differential pane l (Bld)on 09-26-2024 Basophils (Bld) [#/Vol] 0.04 10*3/uL [facility] Basophils/100 WBC (Bld) 0.2 % 0.0 - 2.0 % [facility] Eosinophils (Bld) [#/Vol] 0.1 10*3/uL [facility] Eosinophils/100 WBC (Bld) 0.6 % 0.0 - 6.0 % [facility] Erythrocyte distribution width (RBC) [Ratio] 15.4 % High 11.5 - 14.5 % [facility] Hematocrit (Bld) [Volume fraction] 42.6 % 41.0 - 52.0 % [facility] Hemoglobin (Bld) [Mass/Vol] 13.7 g/dL 13.5 - 17.5 g/dL [facility] Immature granulocytes (Bld) [#/Vol] 0.06 10*3/uL [facility] Immature granulocytes/100 WBC (Bld) 0.3 % 0.0 - 0.9 % [facility] Interpretation and review of laboratory results Abnormal [facility] Lymphocytes (Bld) [#/Vol] 2.36 10*3/uL [facility] Lymphocytes/100 WBC (Bld) 13 % 13.0 - 44.0 % [facility] MCH (RBC) [Entitic mass] 30.2 pg 26.0 - 34.0 pg [facility] MCHC (RBC) [Mass/Vol] 32.2 g/dL 32.0 - 36.0 g/dL [facility] MCV (RBC) [Entitic vol] 94 fL 80 - 100 fL [facility] Monocytes (Bld) [#/Vol] 0.81 10*3/uL High [facility] Monocytes/100 WBC (Bld) 4.5 % 2.0 - 10.0 % [facility] Neutrophils (Bld) [#/Vol] 14.72 10*3/uL High [facility] Neutrophils/100 WBC (Bld) 81.4 % 40.0 - 80.0 % [facility] Nucleated RBC/100 WBC (Bld) [Ratio] 0 % [facility] Platelets (Bld) [#/Vol] 260 10*3/uL [facility] RBC (Bld) [#/Vol] 4.53 10*6/uL Unive [facility] WBC (Bld) [#/Vol] 18.1 10*3/uL [facility] Basophils (Bld) [#/Vol] 0.04 x10*3/uL Normal 0.00-0.10 [facility] Comment on above: Performed By: #### 1 988-5 #### EMANUEL FLOR ([id number]) [facility] ([facility]) [address] [place] [address] 11742 Basophils/100 WBC (Bld) 0.2 % Normal 0.0-2.0 [facility] Comment on above: Performed By: #### 1 988-5 #### EMANUEL FLOR ([id number]) [facility] ([facility]) [address] [place] [address] 33483 Eosinophils (Bld) [#/Vol] 0.10 x10*3/uL Normal 0.00-0.40 [facility] Comment on above: Performed By: #### 1 988-5 #### EMANUEL FLOR ([id number]) [facility] ([facility]) [address] [place] [address] 43877 Eosinophils/100 WBC (Bld) 0.6 % Normal 0.0-6.0 [facility] Comment on above: Performed By: #### 1 988-5 #### EMANUEL FLOR ([id number]) [facility] ([facility]) [address] [place] [address] 15115 Erythrocyte distribution width (RBC) [Ratio] 15.4 % High 11.5-14.5 [facility] Comment on above: Performed By: #### 1 988-5 #### EMANUEL FLOR ([id number]) [facility] ([facility]) [address] [place] [address] 82783 Hematocrit (Bld) [Volume fraction] 42.6 % Normal 41.0-52.0 [facility] Comment on above: Performed By: #### 1 988-5 #### EMANUEL FLOR ([id number]) [facility] ([facility]) [address] [place] [address] 65233 Hemoglobin (Bld) [Mass/Vol] 13.7 g/dL Normal 13.5-17.5 [facility] Comment on above: Performed By: #### 1 988-5 #### EMANUEL FOLR ([id number]) [facility] ([facility]) [address] [place] [address] 54571 Immature granulocytes (Bld) [#/Vol] 0.06 x10*3/uL Normal 0.00-0.50 [facility] Comment on above: Performed By: #### 1 988-5 #### EMANUEL FLOR ([id number]) [facility] ([facility]) [address] [place] [address] 48060 Immature granulocytes/100 WBC (Bld) 0.3 % Normal 0.0-0.9 [facility] Comment on above: Result Comment: Kathy ture Granulocyte Count (IG) includes promyelocytes, myelocytes and metamyelocytes but does not include bands. Percent differential counts (%) should be interpreted in the context of the absolute cell counts (cells/UL). Performed By: #### 1 988-5 #### EMANUEL FLOR ([id number]) [facility] ([facility]) [address] [place] [address] 32017 Lymphocytes (Bld) [#/Vol] 2.36 x10*3/uL Normal 0.80-3.00 [facility] Comment on above: Performed By: #### 1 988-5 #### EMANUEL FLOR ([id number]) [facility] ([facility]) [address] [place] [address] 10548 Lymphocytes/100 WBC (Bld) 13.0 % Normal 13.0-44.0 [facility] Comment on above: Performed By: #### 1 988-5 #### EMANUEL FLOR ([id number]) [facility] ([facility]) [address] [place] [address] 56122 MCH (RBC) [Entitic mass] 30.2 pg Normal 26.0-34.0 [facility] Comment on above: Performed By: #### 1 988-5 #### EMANUEL FLOR ([id number]) [facility] ([facility]) [address] [place] [address] 80168 MCHC (RBC) [Mass/Vol] 32.2 g/dL Normal 32.0-36.0 [facility] Comment on above: Performed By: #### 1 988-5 #### EMANUEL FLOR ([id number]) [facility] ([facility]) [address] [place] [address] 43896 MCV (RBC) [Entitic vol] 94 fL Normal 80-100 [facility] Comment on above: Performed By: #### 1 988-5 #### EMANUEL FLOR ([id number]) [facility] ([facility]) [address] [place] [address] 23024 Monocytes (Bld) [#/Vol] 0.81 x10*3/uL High 0.05-0.80 [facility] Comment on above: Performed By: #### 1 988-5 #### EMANUEL FLOR ([id number]) [facility] ([facility]) [address] [place] [address] 90552 Monocytes/100 WBC (Bld) 4.5 % Normal 2.0-10.0 [facility] Comment on above: Performed By: #### 1 988-5 #### EMANUEL FLOR ([id number]) [facility] ([facility]) [address] [place] [address] 59520 Neutrophils (Bld) [#/Vol] 14.72 x10*3/uL High 1.60-5.50 [facility] Comment on above: Result Comment: Perc ent differential counts (%) should be interpreted in the context of the absolute cell counts (cells/uL). Performed By: #### 1 988-5 #### EMANUEL FLOR ([id number]) [facility] ([facility]) [address] [place] [address] 62290 Neutrophils/100 WBC (Bld) 81.4 % Normal 40.0-80.0 [facility] Comment on above: Performed By: #### 1 988-5 #### EMANUEL FLOR ([id number]) [facility] ([facility]) [address] [place] [address] 05708 Nucleated RBC/100 WBC (Bld) [Ratio] 0.0 /100 WBCs Normal 0.0-0.0 [facility] Comment on above: Performed By: #### 1 988-5 #### EMANUEL FLOR ([id number]) [facility] ([facility]) [address] [place] [address] 19214 Platelets (Bld) [#/Vol] 260 x10*3/uL Normal 150-450 [facility] Comment on above: Performed By: #### 1 988-5 #### EMANUEL FLOR ([id number]) [facility] ([facility]) [address] [place] [address] 29335 RBC (Bld) [#/Vol] 4.53 x10*6/uL Normal 4.50-5.90 [facility] Comment on above: Performed By: #### 1 988-5 #### EMANUEL FLOR ([id number]) [facility] ([facility]) [address] [place] [address] 91077 WBC (Bld) [#/Vol] 18.1 x10*3/uL High 4.4-11.3 [facility] Comment on above: Performed By: #### 1 988-5 #### EMANUEL FLOR ([id number]) [facility] [facility] [address] [place] [address] CHEST W IV CONTRASTon CT CHEST W IV CONTRAST Interpreted By: Rocio De La Cruz and Ritchie Brandon STUDY: CT CHEST W IV CONTRAST; 09/27/2024 3:29 am INDICATION: Signs/Symptoms:with oral contrast for esophagram, c/f esophageal perforation s/p ANTONIETTA. COMPARISON: CT chest 09/26/2024. ACCESSION NUMBER(S): [id number] ORDERING CLINICIAN: CRISTOBAL DUNBAR TECHNIQUE: Helical data acquisition of the chest was obtained after intravenous administration of 80 mL Omnipaque 350. Additional Omnipaque 80087 mL oral was given to assess for clinical suspicion of esophageal injury. Images were reformatted in axial, coronal, and sagittal planes. FINDINGS: UPPER ABDOMEN/ESOPHAGUS/MEDI ASTINUM: There is focal area of extraluminal contrast extravasation located at the posterior aspect of the gastroesophageal junction (series 204, image 109/series 202, image 223) which is seen extending into the mediastinal soft tissues and contouring the large paraesophageal hernia. There is again pylzmmmu-nx-fhmjc amount of pneumomediastinum which is grossly similar in extent compared to the prior CT from 09/26/2024 at 8:11 p.m. There is no evidence of pneumoperitoneum and the extraluminal contrast does not traverse the diaphragm into the abdominal cavity. Distally the stomach is opacified with additional contrast which can be seen to the level of the proximal small bowel in the left upper quadrant. Stable calcified nodule in the right lobe of the thyroid gland which was present dating back to prior scan from 08/01/2020. No evidence of thoracic lymphadenopathy by CT criteria. LUNGS AND AIRWAYS: The trachea and central airways are patent. No endobronchial lesion. There is again mixed centrilobular and paraseptal emphysematous changes predominantly involving the apices. There are stable subpleural reticular changes in the bilateral lower lobes with suggestion of slight bronchiolectasis. Similar appearance of streaky linear consolidations are present at the bases which likely reflect areas of prior scarring and atelectasis. The degree of the this is worse in the right lung base adjacent to the large paraesophageal hernia. Trace bilateral pleural effusions. HEART AND VESSELS: Mild dilatation of the thoracic aorta, stable compared to prior examination measuring up to 4.1 cm. There is no evidence of acute aortic pathology. There is lnxb-eq-eyvlecml calcification of the aortic arch. The main pulmonary artery is dilated and measures 3.6 cm in maximal diameter at the trunk. There is a left chest wall subclavian approach AICD/pacemaker with leads in similar position compared to prior examination. No evidence of a sizable pericardial effusion. CHEST WALL AND OSSEOUS STRUCTURES: There are no suspicious osseous lesions. Multilevel degenerative changes are present IMPRESSION: 1. Focal area of contrast spanning the wall of the posterior aspect of the gastroesophageal junction tracking along the mediastinum/large volume pneumomediastinum. Findings are highly suggestive of esophageal perforation/injury. Recommend surgical consultation. The extent of blactjys-oi-bsuex volume pneumomediastinum is unchanged. 2. Large paraesophageal hernia. 3. Similar lung findings as above with trace pleural effusions and bibasilar atelectatic changes versus scarring. Underlying fibrosing interstitial process such as NSIP can be considered. MACRO: Jeancarlos Hylton discussed the significance and urgency of this critical finding by EPIC CHAT with CRISTOBAL DUNBAR; ELÍAS MORRIS;NANCY WAHL on 09/27/2024 at 4:40 am. (-RCF-) Findings: See findings. Signed by: Rocio De La Cruz 09/27/2024 11:06 AM Dictation workstation: [id number] [facility] CT CHEST WO IV CONTRASTon CT CHEST WO IV CONTRAST Interpreted By: Rocio De La Cruz and Telly Sampson STUDY: CT CHEST WO IV CONTRAST; 09/26/2024 8:11 pm INDICATION: Signs/Symptoms:Evaluat e for pneumomediastinum as reported by CXR. COMPARISON: CT PE 07/21/20 ACCESSION NUMBER(S): [id number] ORDERING CLINICIAN: CRISTOBAL DUNBAR TECHNIQUE: Helical data acquisition of the chest was obtained without intravenous contrast. Images were reformatted in axial, coronal, and sagittal planes. FINDINGS: LUNGS AND AIRWAYS: The trachea and central airways are patent. No endobronchial lesion is seen. There is bilateral apical predominant emphysematous changes. Redemonstrated bronchiectasis of the bilateral lower lobes. There is trace pleural effusion with associated atelectasis. Consolidative opacities are noted within the right lower lobe contiguous with the bochdalek hernia that likely represent atelectasis with superimposed infectious process not completely excluded.. The bilateral lungs are without evidence of pleural effusion or pneumothorax. MEDIASTINUM AND KOSTAS, LOWER NECK AND AXILLA: Redemonstrated 1.2 cm calcified hyperdensity within the right thyroid lobe that is stable compared to prior exam in 2021. Multiple subcentimeter mediastinal lymph nodes that do not meet size criteria for lymphadenopathy. Moderate size posterior bochdalek hernia. There is additional patulous esophagus with concentric wall thickening suggestive of esophagitis. The majority of the pneumomediastinum extends along the stomach and distal esophagus there is a tract of air extending from the gastroesophageal junction to the pneumomediastinum (series 201, image 195; series 201, image 209 and 207; series 204, image 98). Another tract extending from the thoracic esophagus most superiorly into the mediastinum is noted on series 204, image 95. There are additional hyperattenuating fluid layering within the posterior dependent portions of the esophagus on series 201, image 215 these findings are suggestive of an esophageal injury/perforation. There is a moderate sized pneumomediastinum extending from the base of the heart to the superior borders of the mediastinum. There is additional subcutaneous emphysema that extends along the anterior bilateral neck. HEART AND VESSELS: Mildly dilated ascending thoracic aorta measuring 4.2 cm in diameter. Rest of the thoracic aorta is normal in course and caliber.There is moderate calcified atherosclerosis present. Main pulmonary artery is mildly dilatedmeasuring 3.4 cm. Severe coronary artery calcifications are seen. Please note,the study is not optimized for evaluation of coronary arteries. There is similar to slightly worsened mild cardiomegalyThere are prominent aortic valvular califications seen, and correlate with concern for aortic stenosis.There is a left subclavian approach dual chamber cardiac pacemaker/ICD seen in placewith leads terminating within right atrium and apical right ventricle. There is a trace pericardial effusion present. UPPER ABDOMEN: There is several foci of air within the perihepatic space compatible with pneumoperitoneum. CHEST WALL AND OSSEOUS STRUCTURES: Chest wall is within normal limits. No acute osseous pathology.There are no suspicious osseous lesions.Moderate multilevel degenerative changes within visualized spine. IMPRESSION: 1. Interval development of moderate pneumomediastinum extending from the base of the heart to mediastinal superior borders with extension to the subcutaneous soft tissues of the neck. 2. The majority of the pneumomediastinum extends along the stomach and distal esophagus. There is hyperattenuating fluid layering within the posterior dependent portions of the concentrically thickened esophageal webster. There is equivocal tract of air extending from the gastroesophageal junction to the pneumomediastinum as well as from the thoracic esophagus the pneumomediastinum as described above. The constellation of these findings are concerning for esophageal injury/perforation. CT IV and oral contrast would be recommended for more comprehensive characterization. 3. Bochdalek's hernia containing majority of the stomach. 4. Trace left pleural effusion with associated atelectasis. Consolidative opacities are noted within the right lower lobe contiguous with the Bochdalek's hernia that likely represent atelectasis. Superimposed infectious process can not be definitively excluded. 5. Interval development of trace pneumoperitoneum. 6. Additional findings as described above. The above findings were communicated with Dr. Elías Morris via phone at 10:12 pm. MACRO: Adrián Varner discussed the significance and urgency of this critical finding by telephone with Elías Morris on 09/26/2024 at 10:13 pm. (-RCF-) Findings: See findings. Signed by: Rocio De La Cruz 09/27/2024 10:53 AM Dictation workstation: [id number] [facility] CT Chest WO contraston 09-26 Radiology Study observation (narrative) [facility] Work Phone: Cardiac Device Check - Surge araceli 09-26-2024 Radiology Study observation (narrative) [facility] Work Phone: ECG 12-LEADon 09-26-2024 ECG 12-LEAD Ventricular Rate 61 Atrial Rate 277 QRS Duration 228 Q-T Interval 548 QTC Calculation(Bazett) 551 R Barnhart -44 T Barnhart 5 QRS Count 10 Q Onset 202 T Offset 476 QTC Fredericia 550 Diagnosis Ventricular-paced rhythm Abnormal ECG When compared with ECG of 13-AUG-2024 07:30, Vent. rate has decreased BY 13 BPM Confirmed by Brandon Tracey ([id number]) on 10/06/2024 2:44:23 PM Normal [facility] Glucose Test strip manual (B ld) [Mass/Vol]on 09-26-2024 Glucose [Mass/Vol] 129 mg/dL High 74 - 99 mg/dL [facility] Interpretation and review of laboratory results Abnormal [facility] Glucose [Mass/Vol] 129 mg/dL High 74-99 [facility] Comment on above: Performed By: #### 4 537-7 #### EMANUEL FLOR ([id number]) [facility] ([facility]) [address] [place] [address] Glucose [Mass/Vol] 109 mg/dL High 74 - 99 mg/dL [facility] Interpretation and review of laboratory results Abnormal [facility] Glucose [Mass/Vol] 109 mg/dL High 74-99 [facility] Comment on above: Performed By: #### 4 537-7 #### EMANUEL FLOR ([id number]) [facility] ([facility]) [address] [place] [address] Magnesiumon 09-26-2024 Magnesium [Mass/Vol] 1.94 mg/dL 1.60 - 2.40 mg/dL [facility] Magnesium [Mass/Vol] 1.94 mg/dL Normal 1.60-2.40 [facility] Comment on above: Performed By: #### 1 988-5 #### EMANUEL FLOR ([id number]) [facility] ([facility]) [facility] [place] [address] Magnesium [Mass/Vol]on 09-26 Interpretation and review of laboratory results Normal [facility] No Panel Informationon 09-26 [facility] Renal function 2000 panelon 09-26-2024 Albumin BCP dye [Mass/Vol] 3.8 g/dL 3.4 - 5.0 g/dL [facility] Anion gap [Moles/Vol] 15 mmol/L 10 - 2 0 mmol/L [facility] Calcium [Mass/Vol] 8.8 mg/dL 8.6 - 10. 6 mg/dL [facility] Chloride [Moles/Vol] 105 mmol/L 98 - 10 7 mmol/L [facility] CO2 [Moles/Vol] 23 mmol/L 21 - 32 mmol/L [facility] Creatinine [Mass/Vol] 0.71 mg/dL 0.50 - 1.30 mg/dL [facility] eGFR - PINF [facility] Glucose [Mass/Vol] 158 mg/dL High 74 - 99 mg/dL [facility] Interpretation and review of laboratory results Abnormal [facility] Phosphate [Mass/Vol] 4.3 mg/dL 2.5 - 4 .9 mg/dL [facility] Potassium [Moles/Vol] 4 mmol/L 3.5 - 5.3 mmol/L [facility] Sodium [Moles/Vol] 139 mmol/L 136 - 145 mmol/L [facility] Urea nitrogen [Mass/Vol] 18 mg/dL 6 - 23 mg/dL [facility] Albumin BCP dye [Mass/Vol] 3.8 g/dL Normal 3.4-5.0 [facility] Comment on above: Performed By: #### 1 988-5 #### EMANUEL FLOR ([id number]) [facility] ([facility]) [address] [place] [address] Anion gap [Moles/Vol] 15 mmol/L Normal 10-20 [facility] Comment on above: Performed By: #### 1 988-5 #### EMANUEL FLOR ([id number]) [facility] ([facility]) [address] [place] [address] Calcium [Mass/Vol] 8.8 mg/dL Normal 8.6-10.6 [facility] Comment on above: Performed By: #### 1 988-5 #### EMANUEL FLOR ([id number]) [facility] ([facility]) [address] [place] [address] Chloride [Moles/Vol] 105 mmol/L Normal 98-107 [facility] Comment on above: Performed By: #### 1 988-5 #### EMANUEL FLOR ([id number]) [facility] ([facility]) [facility] [place] [address] CO2 [Moles/Vol] 23 mmol/L Normal 21-32 [facility] Comment on above: Performed By: #### 1 988-5 #### EMANUEL FLOR ([id number]) [facility] ([facility]) [address] [place] [address] Creatinine [Mass/Vol] 0.71 mg/dL Normal 0.50-1.30 [facility] Comment on above: Performed By: #### 1 988-5 #### EMANUEL FLOR ([id number]) [facility] ([facility]) [address] [place] [address] GFR/1.73 sq M.predicted MDRD (S/P/Bld) [Vol rate/Area] mL/min/{1.73_m2} Normal >60 [facility] Comment on above: Result Comment: Calc ulations of estimated GFR are performed using the 2020 CKD-EPI Study Refit equation without the race variable for the IDMS-Traceable creatinine methods. https://jasn.asnjournals.org/content/early/ASN.40286 10404 Performed By: #### 1 988-5 #### EMANUEL FLOR ([id number]) [facility] ([facility]) [address] [place] [address] Glucose [Mass/Vol] 158 mg/dL High 74-99 [facility] Comment on above: Performed By: #### 1 988-5 #### EMANUEL FLOR ([id number]) [facility] ([facility]) [address] [place] [address] Phosphate [Mass/Vol] 4.3 mg/dL Normal 2.5-4.9 [facility] Comment on above: Result Comment: The performance characteristics of phosphorus testing in heparinized plasma have been validated by the individual laboratory site where testing is performed. Testing on heparinized plasma is not approved by the FDA; however, such approval is not necessary. Performed By: #### 1 988-5 #### EMANUEL FLOR ([id number]) [facility] ([facility]) [address] [place] [address] Potassium [Moles/Vol] 4.0 mmol/L Normal 3.5-5.3 [facility] Comment on above: Performed By: #### 1 988-5 #### EMANUEL FLOR ([id number]) [facility] ([facility]) [address] [place] [address] Sodium [Moles/Vol] 139 mmol/L Normal 136-145 [facility] Comment on above: Performed By: #### 1 988-5 #### EMANUEL CHACHO ([id number]) [facility] ([facility]) [facility] [place] [address] Urea nitrogen [Mass/Vol] 18 mg/dL Normal 6-23 [facility] Comment on above: Performed By: #### 1 988-5 #### CASTELLANOS CHACHO ([id number]) [facility] ([facility]) [address] [place] [address] XR CHEST 1 VIEWon 09-26-2024 XR CHEST 1 VIEW Interpreted By: Bret Craig and Stevens Alex STUDY: XR CHEST 1 VIEW; 09/26/2024 1:35 pm INDICATION: Signs/Symptoms:s/p L-side PROPERTY CLAIM REP-P implant on 09/26/2024. COMPARISON: XR chest 08/13/2024 ACCESSION NUMBER(S): [id number] ORDERING CLINICIAN: JANENTH YANEZ FINDINGS: AP radiograph of the chest was provided. Left chest wall implantable pacemaker/defibrillato r with leads projecting over the expected location of the right atrial appendage and both ventricles. Interval development of radiolucency extending from the subcutaneous tissues of the right neck and into the superior mediastinum along the right paratracheal border. CARDIOMEDIASTINAL SILHOUETTE: Cardiomediastinal silhouette is unchanged in size and configuration. LUNGS: There are diffuse subpleural reticulations throughout the evncf-oouxiwu-vklo-lef t lungs which were better evaluated on prior CT. Large hiatal hernia again projects over the right lower hemithorax. There is no definite pneumothorax. No large pleural effusion. Streaky bibasilar opacities may represent interstitial lung disease or atelectasis. No pleural effusions. ABDOMEN: No remarkable upper abdominal findings. BONES: No acute osseous changes. IMPRESSION: 1. Subcutaneous emphysema along the right neck with extension into the superior mediastinal structures, most consistent with pneumomediastinum. Consider further evaluation with CT versus PA/lateral radiographs to re-evaluate. 2. No definite pneumothorax. Consider repeat erect radiographs of the chest for further evaluation. I personally reviewed the images/study and I agree with the findings as stated by Toney Modi, PGY-2. This study was interpreted at [facility], [place], [place]. MACRO: Toney Modi discussed the significance and urgency of this critical finding by secure message with Moise Brown on 09/26/2024 at 3:10 pm. (-RCF-) Findings: See findings. Signed by: Bret Craig 09/26/2024 3:11 PM Dictation workstation: [id number] [facility] Comment on above: Order Comment: Wet r ead. XR Chest Single viewon 09-26 [facility] MMODAL [facility] MMODAL [facility] Work Phone: Radiology Study observation (narrative) [facility] Work Phone: XR Chest Single viewOrdered By: Bret Craig on 09-26-2024 [facility] Work Phone: Blood type and Indirect anti body screen panel (Bld)on 09-17-2024 ABO group Nom (Bld) O Normal [facility] Comment on above: Order Comment: Speci men for compatibility testing requires full first and last name, MRN, , date, time of collection, and airline operations agent/behavioral analyst's signature on tube(s) or it will be rejected. Please collect 1 lavender top-KEDTA OR 1 pink top-KEDTA and sign, date and time with the patient's full first and last name, MRN and . Performed By: #### 4 537-7 #### EMANUEL FLOR ([id number]) [facility] ([facility]) [address] [place] [address] Blood group antibody screen Ql Negative [facility] Comment on above: Order Comment: Speci men for compatibility testing requires full first and last name, MRN, , date, time of collection, and airline operations agent/behavioral analyst's signature on tube(s) or it will be rejected. Please collect 1 lavender top-KEDTA OR 1 pink top-KEDTA and sign, date and time with the patient's full first and last name, MRN and . Performed By: #### 4 537-7 #### EMANUEL FLOR ([id number]) [facility] ([facility]) [address] [place] [address] D Ag Ql (Bld) Positive Normal [facility] Comment on above: Order Comment: Speci men for compatibility testing requires full first and last name, MRN, , date, time of collection, and airline operations agent/behavioral analyst's signature on tube(s) or it will be rejected. Please collect 1 lavender top-KEDTA OR 1 pink top-KEDTA and sign, date and time with the patient's full first and last name, MRN and . Performed By: #### 4 537-7 #### EMANUEL FLOR ([id number]) [facility] ([facility]) [address] [place] [address] [place] PAIN MANAGEMENTon 025 [place] PAIN MANAGEMENT These images are not reportable by radiology and will not be interpreted by Radiologists. Normal [facility] Glucose Test strip manual (B ld) [Mass/Vol]on 09-12-2024 Glucose [Mass/Vol] 104 mg/dL High 74 - 99 mg/dL [facility] Interpretation and review of laboratory results Abnormal [facility] Glucose [Mass/Vol] 104 mg/dL High 74-99 [facility] Comment on above: Performed By: #### T HYDS #### EMANUEL FLOR ([id number]) [facility] ([facility]) [address] [place] [address] No Panel Informationon 09-12 [facility] Work Phone: These images are not reportable by radiology and will not be interpreted by Radiologists. IMAGING Radiology Study observation (narrative) [facility] Work Phone: T3, TOTALon 09-11-2024 T3, TOTAL 101 ng/dL Normal 76-181 [facility] Comment on above: Performed By: #### 8 25, 308, 165 #### [facility] [address] [facility], [address] [place] [address] Rivet Spinner: Camilo Sylvester MD #### [id number], [id number] #### [facility]/[address] [place], [place] Rivet Spinner: Benjamin Reis M.D.,PhD T4, FREE 09-11-2024 Free T4 [Mass/Vol] 1.1 ng/dL Normal 0.8-1.8 [facility] Comment on above: Performed By: #### 8 66, 859, 867 #### [facility] [address], [address] [place] [address] Rivet Spinner: Camilo Sylvester MD #### [id number], [id number] #### [facility]/[address] [place] Rivet Spinner: Benjamin Reis M.D.,PhD THYROID PEROXIDASE ANTIBODIE [facility] 09-11-2024 THYROID PEROXIDASE ANTIBODIES <1 Normal <9 [facility] Comment on above: Order Comment: FASTI NG:NOFASTING: NO Performed By: #### 8 66, 859, 867 #### [facility] [address], [address] [place] [address] Rivet Spinner: Camilo Sylvester MD #### [id number], [id number] #### [facility]/[address] [place] Rivet Spinner: Benjamin Reis M.D.,PhD TSHon 09-11-2024 TSH Qn 2.93 m[IU]/L Normal 0.40-4.50 [facility] Comment on above: Performed By: #### 8 66, 859, 867 #### [facility] [address], [address] [place] [address] Rivet Spinner: Camilo Sylvester MD #### [id number], [id number] #### [facility]/[address] [place] Rivet Spinner: Benjamin Reis M.D.,PhD FINE NEEDLE ASPIRATIONon FINE NEEDLE ASPIRATION Medical Cytology Report Case: [id number] Authorizing Provider: Monty Julien CNP Collected: 08/28/2024 11:19 AM Ordering Location: [facility] Received: 08/28/2024 11:48 AM Ultrasound Pathologist: Emanuel Edward IV, MD Specimen: Thyroid, Right Superior, Right thyroid superior, TR4, 1.7cm nodule A. Thyroid, Right Superior, fine needle aspiration (FNA) biopsy: BENIGN ([place] Category II) Consistent with a benign follicular nodule (includes adenomatoid nodule, colloid nodule, etc.). A. Rapid On-Site Evaluation: Evaluation episode #1: Adequate. Results discussed with Dr. Naidu. HW:llc Satisfactory for evaluation A. Received in [facility], designated Thyroid, RigFine Needle As*, are 12.5 mL of Light Red fluid, and 6 air-dried smears. 3 air-dried smear(s) Diff-Quik stained, 3 air-dried smear(s) Pap stained, 1 ThinPrep slide(s) Pap stained prepared. LC Cytology preparations processed at: [facility] - [address] [place] [address] Normal [facility] Comment on above: Performed By: #### 4 6969 #### [place] [address] Renard Montes M.D. [id number] ECG 12-LEADon 08-13-2024 ECG 12-LEAD Ventricular Rate 74 Atrial Rate 85 QRS Duration 196 Q-T Interval 470 QTC Calculation(Bazett) 521 R Barnhart 147 T Barnhart -14 QRS Count 12 Q Onset 191 T Offset 426 QTC Fredericia 504 Diagnosis Ventricular-paced rhythm Abnormal ECG When compared with ECG of 12-JUN-2024 12:43, Premature ventricular complexes are no longer Present Vent. rate has increased BY 10 BPM Confirmed by Aravind Jimenez ([id number]) on 08/15/2024 8:11:37 AM Normal [facility] Electrophysiology studyon Addendum by Aravind Jimenez MD on 08/13/2024 11:32 AM EST Images from the original result were not included. Dual-chamber pacemaker Upgrade to Biventricular Pacemaker Procedures: Left upper extremity venogram (08667), left subclavian needle entry into the vein (01529), Implant of single lead only (83262-30) Patient history: Please refer to the detailed history and physical on the patient's medical chart. Procedure narrative: The patient was in the fasting state. A grounding pad was placed. The patient was set up for continuous monitoring of surface 12 lead ECG and pulse oximetry. Blood pressure was monitored. The procedure was performed under IV conscious sedation supplemented with intermittent moderate sedation. The Left upper chest was prepped and draped in the usual sterile fashion. Local anesthesia: After preoperative IV antibiotic was completely infused, subcutaneous tissues just medial to the Left deltopectoral area, were infiltrated with Lidocaine 1% for local anesthesia. The device was analyzed and reprogrammed. A venogram using the left arm IV was obtained which showed stenosis of the subclavian with significant collateralization but there appeared to be a small area of connection. At this point we elected to do a percutaneous needle stick to get into the subclavian vein to see if we can wire across the area of occlusion. Micro puncture needle under fluoroscopic guidance was used and we were able to access the left subclavian vein. Micropuncture wire was introduced however it was not able to be bypassed the area of stenosis. A micro puncture sheath was advanced over the micropuncture wire and wire was removed. A angled glide was attempted to cross the area of stenosis but we were unable to. Using a micropuncture sheath we again obtained a local venogram which showed complete occlusion of the vein where the leads were sitting and significant collateralization. The procedure to implant a new CS lead was aborted with plans for bringing the patient back for a transvenous lead extraction of the atrial lead to allow for venous access and implant of a new CS lead. Since patient's LV function was reduced on the recent echo we did not proceed with AV obinna ablation without giving patient biventricular pacing Images: Summary: Unsuccessful upgrade of a left sided Medtronic Dual chamber pacemaker to a Biventricular Pacemaker due to Venous Occlusion Plan for outpatient TLE (RA lead) with implant of new CS lead Recommendations: Tentatively patient will be discharged Today, following bed rest and subsequent ambulation, provided chest xray, device interrogation and recovery parameters are appropriate. Additional dose of antibiotics in 12 hours A PA-lateral chest X-ray should be performed in 1-2 hours Resume rest of home medications Discharge home with PO Abx Keflex 500mg BID x 7 Days Patient Instructions: Please do not lift left arm above shoulder level for 4-5 weeks No repetitive motion or lifting heavy weight for 4-5 weeks No driving, alcohol or making legal decisions for 24 hours. Keep wound completely dry for 7 days; may shower but keep bandage as dry as possible. No soaking in hot tubs or baths for 10 days. May sponge bath Keep bandage on incision until seen in the office in 1 week. Allow steristrips underneath to fall off naturally. Please call our office ([facility]: [phone]) if you notice any discharge or swelling around incision or fever. Follow up: Operation scheduled for lead extraction and [place] [facility] See complete procedural log and parameters. [facility] Work Phone: [facility] Work Phone: Glucose Test strip manual (B ld) [Mass/Vol]on 08-13-2024 Glucose [Mass/Vol] 125 mg/dL High 74 - 99 mg/dL [facility] Interpretation and review of laboratory results Abnormal [facility] Glucose [Mass/Vol] 125 mg/dL High 74-99 [facility] Comment on above: Performed By: #### 2 [id number] #### LORRAINE MCGEE ([id number]) [facility] ([facility]) [address] [place] [address] XR CHEST 1 VIEWon 08-13-2024 XR CHEST 1 VIEW Interpreted By: Andrea Escoto, STUDY: XR CHEST 1 VIEW; 08/13/2024 11:47 am INDICATION: Signs/Symptoms:Percuta neous Left subclavian vein access, assess for Pneumo. COMPARISON: Two views of the chest, 12 June 2024 ACCESSION NUMBER(S): [id number] ORDERING CLINICIAN: ARAVIND JIMENEZ TECHNIQUE: Single frontal view of the chest; Portable technique FINDINGS: Left chest wall cardiac device with two leads at unchanged positions Enlarged cardiac silhouette is unchanged Subpleural interstitial thickening is unchanged No pneumothorax IMPRESSION: No pneumothorax MACRO: None Signed by: Andrea Escoto 08/13/2024 1:31 PM Dictation workstation: [id number] [facility] XR Chest Single viewon 08-13 No pneumothorax MACRO: None Signed by: Andrea Escoto 08/13/2024 1:31 PM Dictation workstation: [id number] MMODAL Interpreted By: Andrea Escoto, STUDY: XR CHEST 1 VIEW; 08/13/2024 11:47 am INDICATION: Signs/Symptoms:Percuta neous Left subclavian vein access, assess for Pneumo. COMPARISON: Two views of the chest, 12 June 2024 ACCESSION NUMBER(S): [id number] ORDERING CLINICIAN: ARAVIND JIMENEZ TECHNIQUE: Single frontal view of the chest; Portable technique FINDINGS: Left chest wall cardiac device with two leads at unchanged positions Enlarged cardiac silhouette is unchanged Subpleural interstitial thickening is unchanged No pneumothorax [facility] MMODAL Andrea Escoto MD - 08/13/2024 Interpreted By: Andrea Escoto, STUDY: XR CHEST 1 VIEW; 08/13/2024 11:47 am INDICATION: Signs/Symptoms:Percuta neous Left subclavian vein access, assess for Pneumo. COMPARISON: Two views of the chest, 12 June 2024 ACCESSION NUMBER(S): [id number] ORDERING CLINICIAN: ARAVIND JIMENEZ TECHNIQUE: Single frontal view of the chest; Portable technique FINDINGS: Left chest wall cardiac device with two leads at unchanged positions Enlarged cardiac silhouette is unchanged Subpleural interstitial thickening is unchanged No pneumothorax IMPRESSION: No pneumothorax MACRO: None Signed by: Andrea Escoto 08/13/2024 1:31 PM Dictation workstation: [id number] [facility] Work Phone: Radiology Study observation (narrative) [facility] Work Phone: XR Chest Single viewOrdered By: Andrea Escoto on 08-13-2024 [facility] Work Phone: MR LUMBAR SPINE WO IV CONTRA STon 08-11-2024 MR LUMBAR SPINE WO IV CONTRAST Interpreted By: Rocio Go, STUDY: MR LUMBAR SPINE WO IV CONTRAST performed 08/11/2024 11:11 am INDICATION: Signs/Symptoms:LOWER BACK AND LEG PAIN. 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 ACCESSION NUMBER(S): [id number] ORDERING CLINICIAN: REGGIE ARAGON TECHNIQUE: Multiplanar multisequence MR imaging of the lumbar spine performed without intravenous contrast. Sagittal T1, T2, STIR, axial T1 and T2 weighted images of the lumbar spine were acquired. FINDINGS: Segmentation: 5 lumbar vertebral bodies are designated on this examination. Rudimentary S1-S2 disc. Conus: The lower thoracic cord appears unremarkable. The conus terminates at the level of the inferior endplate of L2. Cauda equina are unremarkable. Epidural fluid: None. Alignment: Mild rotatory levo scoliosis of the lumbar spine. Vertebral bodies: Lumbar vertebral body heights are grossly maintained with unchanged minimal chronic anterior wedging of L1. Marrow signal: L1 vertebral body hemangioma. Trace type 1 Modic endplate signal change at L4-L5 and potentially at L3-L4. No suspicious STIR hyperintensity/marrow edema. Nonspecific marrow heterogeneity may reflect an element of demineralization. Intervertebral discs: Moderate degenerative disc height loss at L2-L3 and mzhh-lj-uhdizjdp degenerative disc height loss at L3-L4 and L4-L5. Multilevel disc desiccation. Tiny scattered Schmorl's node deformities. Degenerative change: T12-L1: Mild facet arthropathy with ligamentum flavum hypertrophy. Tiny Schmorl's node deformities. Disc bulge with left subarticular/foraminal fissuring. Anterior predominant hypertrophic endplate spurring. There is mild bljg-xmoorda-fxgy-righ t lateral recess narrowing with no substantial spinal canal stenosis. No significant neural foraminal narrowing. Findings appear similar to prior exam. L1-2: Mild facet arthropathy and ligamentum flavum hypertrophy. No significant posterior disc bulge and endplate spurring. No spinal canal stenosis. No neural foraminal narrowing. L2-3: Possible prior right hemilaminectomy. Mild facet arthropathy. There is suspected right facet synovial cyst components dorsal and external to the spinal canal and possibly within the hemilaminectomy bed (series 8, image 25, series 7, image 13). Ligamentum flavum hypertrophy. Disc bulge and hypertrophic endplate spurring, worse along the rightward aspect. No spinal canal stenosis. Mild fjegz-lzvdpkl-lppr-lef t neural foraminal narrowing. Findings appear similar to prior exam. L3-4: Possible remote right hemilaminectomy. Mild bilateral facet arthropathy. Left ligamentum flavum hypertrophy. Disc bulge and hypertrophic endplate spurring. Slight narrowing of the jirke-rchprri-pvrp-lef t lateral recesses with no additional spinal canal stenosis. Mild bilateral neural foraminal narrowing. L4-5: Moderate facet arthropathy with ligamentum flavum hypertrophy. Moderate disc bulge with mild endplate spurring. There is a possible small superimposed left subarticular disc extrusion with caudal migration. There is ksif-pmavndy-evos-righ t lateral recess stenosis with possible compression of the descending left L5 nerve root (series 9, image 8). Moderate trefoil narrowing of the thecal sac/spinal canal stenosis. Moderate qzxj-hbfotll-oiyw-righ t neural foraminal narrowing with compression/impingemen t of the exiting left L4 nerve root. Findings appear similar to minimally worsened from comparison exam. L5-S1: Mild facet arthropathy. Minimal disc bulge and endplate spurring. Element of left lateral recess narrowing with no additional spinal canal stenosis. No substantial neural foraminal narrowing. Findings appear similar to prior exam. Soft tissues: Moderate fatty atrophy of the posterior paraspinal musculature. Incompletely visualized large exophytic cystic appearing lesion involving the left kidney. IMPRESSION: Similar MR appearance of the lumbar spine. Moderate spinal canal stenosis at L4-L5 with cqtj-bdjcxum-xelh-righ t lateral recess narrowing and moderate gcxo-vsqefyv-gqvp-righ t neural foraminal narrowing with compression/impingemen t of the exiting left L4 nerve root. MACRO: None Signed by: Rocio Go 08/12/2024 2:57 PM Dictation workstation: [id number] [facility] T3, TOTALon 08-09-2024 T3, TOTAL 67 ng/dL Low 76-181 [facility] Comment on above: Order Comment: FASTI NG:NO FASTING: NO Performed By: #### 8 43, 344, 852 #### [facility] [address], [address] [place] [id number] Rivet Spinner: Camilo Sylvester MD T4 (THYROXINE), TOTALon 020 8-2025 T4 [Mass/Vol] 6.2 ug/dL Normal 4.9-10.5 [facility] Comment on above: Performed By: #### 8 , 71, 866 #### [facility] [address], [address] [place] [address] Rivet Spinner: Camilo Sylvester MD T4, FREEon 08-09-2024 Free T4 [Mass/Vol] 1.2 ng/dL Normal 0.8-1.8 [facility] Comment on above: Performed By: #### 8 , 85, 866 #### [facility] [place] [address] Rivet Spinner: Camilo Sylvester MD TSHon 08-09-2024 TSH Qn 2.57 m[IU]/L Normal 0.40-4.50 [facility] Comment on above: Performed By: #### 8 , 78, 866 #### [facility] [place] [address] Rivet Spinner: Camilo Sylvester MD Basic metabolic 2000 panelon 07-30-2024 Anion gap [Moles/Vol] 14 mmol/L Normal 10-20 [facility] Comment on above: Performed By: #### T HYDS #### EMANUEL FLOR ([id number]) [facility] ([facility]) [address] [place] [address] Calcium [Mass/Vol] 9.2 mg/dL Normal 8.6-10.3 [facility] Comment on above: Performed By: #### T HYDS #### EMANUEL FLOR ([id number]) [facility] ([facility]) [address] [place] [address]105 Chloride [Moles/Vol] 106 mmol/L Normal 98-107 [facility] Comment on above: Performed By: #### T HYDS #### EMANUEL FLOR ([id number]) [facility] ([facility]) [address] [place] [address]199 CO2 [Moles/Vol] 24 mmol/L Normal 21-32 [facility] Comment on above: Performed By: #### T HYDS #### EMANUEL FLOR ([id number]) [facility] ([facility]) [address] [place] [address] Creatinine [Mass/Vol] 0.92 mg/dL Normal 0.50-1.30 [facility] Comment on above: Performed By: #### T HYDS #### EMANUEL FLOR ([id number]) [facility] ([facility]) [address] [place] [address] Glomerular filtration rate/1.73 sq M.predicted 84 mL/min/1.73m*2 Normal >60 [facility] Comment on above: Result Comment: Calc ulations of estimated GFR are performed using the 2020 CKD-EPI Study Refit equation without the race variable for the IDMS-Traceable creatinine methods. https://jasn.asnjournals.org/content/early//ASN.07619 69825 Performed By: #### T HYDS #### EMANUEL FLOR ([id number]) [facility] ([facility]) [address] [place] [address] Glucose [Mass/Vol] 145 mg/dL High 74-99 [facility] Comment on above: Performed By: #### T HYDS #### EMANUEL FLOR ([id number]) [facility] ([facility]) [address] [place] [address]84 Potassium [Moles/Vol] 4.4 mmol/L Normal 3.5-5.3 [facility] Comment on above: Performed By: #### T HYDS #### EMANUEL FLOR ([id number]) [facility] ([facility]) [address] [place] [address]2566 Sodium [Moles/Vol] 140 mmol/L Normal 136-145 [facility] Comment on above: Performed By: #### T HYDS #### EMANUEL FLOR ([id number]) [facility] ([facility]) [address] [place] [address] 26663 Urea nitrogen [Mass/Vol] 28 mg/dL High 6-23 [facility] Comment on above: Performed By: #### T HYDS #### EMANUEL FLOR ([id number]) [facility] ([facility]) [address] [place] [address] Blood type and Indirect anti body screen panel (Bld)on 07-30-2024 ABO group Nom (Bld) O Normal [facility] Comment on above: Performed By: #### T HYDS #### EMANUEL FLOR ([id number]) [facility] ([facility]) [address] [place] [address] Blood group antibody screen Ql Negative [facility] Comment on above: Performed By: #### T HYDS #### EMANUEL FLOR ([id number]) [facility] ([facility]) [address] [place] [address] D Ag Ql (Bld) Positive [facility] Comment on above: Performed By: #### T HYDS #### EMANUEL FLOR ([id number]) [facility] ([facility]) [address] [place] [address] CBC panel Auto (Bld)on 07-30 Erythrocyte distribution width (RBC) [Ratio] 15.5 % High 11.5-14.5 [facility] Comment on above: Performed By: #### T HYDS #### EMANUEL FLOR ([id number]) [facility] ([facility]) [address] [place] [address] Hematocrit (Bld) [Volume fraction] 42.6 % Normal 41.0-52.0 [facility] Comment on above: Performed By: #### T HYDS #### EMANUEL FLOR ([id number]) [facility] ([facility]) [address] [place] [address] Hemoglobin (Bld) [Mass/Vol] 13.3 g/dL Low 13.5-17.5 [facility] Comment on above: Performed By: #### T HYDS #### EMANUEL FLOR ([id number]) [facility] ([facility]) [address] [place] [address] MCH (RBC) [Entitic mass] 29.2 pg Normal 26.0-34.0 [facility] Comment on above: Performed By: #### T HYDS #### EMANUEL FLOR ([id number]) [facility] ([facility]) [address] [place] [address]55 MCHC (RBC) [Mass/Vol] 31.2 g/dL Low 32.0-36.0 [facility] Comment on above: Performed By: #### T HYDS #### EMANUEL FLOR ([id number]) [facility] ([facility]) [address] [place] [address] MCV (RBC) [Entitic vol] 93 fL Normal 80-100 [facility] Comment on above: Performed By: #### T HYDS #### EMANUEL FLOR ([id number]) [facility] ([facility]) [address] [place], [place] [address] Nucleated RBC/100 WBC (Bld) [Ratio] 0.0 /100 WBCs Normal 0.0-0.0 [facility] Comment on above: Performed By: #### T HYDS #### EMANUEL FLOR ([id number]) [facility] ([facility]) [address] [place], [place] [address] Platelets (Bld) [#/Vol] 324 x10*3/uL Normal 150-450 [facility] Comment on above: Performed By: #### T HYDS #### EMANUEL FLOR ([id number]) [facility] ([facility]) [address] [place] [address] 85272 RBC (Bld) [#/Vol] 4.56 x10*6/uL Normal 4.50-5.90 [facility] Comment on above: Performed By: #### T HYDS #### EMANUEL FLOR ([id number]) [facility] ([facility]) [address] [place] [address] 36366 WBC (Bld) [#/Vol] 10.4 x10*3/uL Normal 4.4-11.3 [facility] Comment on above: Performed By: #### T MARILYS #### CASTELLANOS CHACHO ([id number]) [facility] ([facility]) [address] [place] [address] APTTon 07-20-2024 aPTT Coag (Bld) [Time] 33 s Normal 23-34 [facility] Comment on above: Order Comment: Thera peutic range for APTT's is 68 - 104 seconds Performed By: #### 4 [id number] #### [facility] [address] [address] Renard Montes M.D. [id number] CBC WITH AUTO DIFFERENTIALon 07-20-2024 AUTO NRBC 0.0 % [facility] Comment on above: Performed By: #### L [id number] #### LAB [address] [address] Renard Montes M.D. [id number] AUTO NRBC ABS COUNT 0.00 K/mcL Normal 0.00-0.00 [facility] Comment on above: Performed By: #### L [id number] #### LAB [address] [address] Renard Montes M.D. [id number] BASOPHILS ABSOLUTE COUNT 0.04 K/mcL Normal 0.00-0.30 [facility] Comment on above: Performed By: #### L [id number] #### LAB [address] [address] Renard Montes M.D. [id number] Basophils/100 WBC (Bld) 0.5 % [facility] Comment on above: Performed By: #### L [id number] #### LAB [address] [address] Renard Montes M.D. [id number] Eosinophils (Bld) [#/Vol] 0.36 10*3/uL Normal 0.00-0.50 [facility] Comment on above: Performed By: #### L [id number] #### LAB [address] [address] Renard Montes M.D. [id number] Eosinophils/100 WBC (Bld) 4.4 % Normal [facility] Comment on above: Performed By: #### L [id number] #### LAB [address] [address] Renard Montes M.D. [id number] Erythrocyte distribution width (RBC) [Ratio] 15.5 % High 11.6-14.8 [facility] Comment on above: Performed By: #### L [id number] #### LAB [address] [address] Renard Montes M.D. [id number] Hematocrit (Bld) [Volume fraction] 45.1 % Normal 41.0-53.0 [facility] Comment on above: Performed By: #### L [id number] #### LAB [address] [address] Renard Montes M.D. [id number] Hemoglobin (Bld) [Mass/Vol] 13.8 g/dL Normal 13.5-17.5 [facility] Comment on above: Performed By: #### L [id number] #### LAB [address] [address] Renard Montes M.D. [id number] IG ABSOLUTE 0.03 K/mcL Normal 0.00-0.30 [facility] Comment on above: Performed By: #### L [id number] #### LAB [address] [address] Renard Montes M.D. [id number] IG PERCENT 0.40 % Normal [facility] Comment on above: Result Comment: The IG parameter is the percentage of metamyelocytes, myelocytes and promyelocytes. An immature granulocyte count (IG) of 1% or more suggests the possibility of infection, an IG count of 3% is very likely related to an infection. Performed By: #### L [id number] #### LAB [address] [place] [address] Renard Montes M.D. [id number] Lymphocytes (Bld) [#/Vol] 2.54 10*3/uL Normal 0.90-4.00 [facility] Comment on above: Performed By: #### L [id number] #### LAB [address] [address] Renard Montes M.D. [id number] Lymphocytes/100 WBC (Bld) 31.2 % Normal [facility] Comment on above: Performed By: #### L [id number] #### LAB [address] [address] Renard Montes M.D. [id number] MCH (RBC) [Entitic mass] 28.8 pg Normal 26.0-34.0 [facility] Comment on above: Performed By: #### L [id number] #### LAB [address] [address] Renard Montes M.D. [id number] MCV (RBC) [Entitic vol] 94.2 fL Normal 80.0-100.0 [facility] Comment on above: Performed By: #### L [id number] #### LAB [address] [place] [address] Renard Montes M.D. [id number] MEAN CORPUSCULAR HEMOGLOBIN CONC 30.6 g/dL Low 31.0-37.0 [facility] Comment on above: Performed By: #### L [id number] #### LAB [address] [place] [address] Renard Montes M.D. [id number] Monocytes (Bld) [#/Vol] 0.50 10*3/uL Normal 0.30-0.90 [facility] Comment on above: Performed By: #### L [id number] #### LAB [address] [place] [address] Renard Montes M.D. [id number] Monocytes/100 WBC (Bld) 6.1 % Normal [facility] Comment on above: Performed By: #### L [id number] #### LAB [address] [place] [address] Renard Montes M.D. [id number] NEUTROPHILS ABSOLUTE COUNT 4.68 K/mcL Normal 1.70-7.00 [facility] Comment on above: Performed By: #### L [id number] #### LAB [address] [address] Renard Montes M.D. [id number] Neutrophils/100 WBC (Bld) 57.4 % Normal [facility] Comment on above: Performed By: #### L [id number] #### [facility] [address] [address] Renard Montes M.D. [id number] Platelet mean volume (Bld) [Entitic vol] 10.1 fL Normal 9.4-12.4 [facility] Comment on above: Performed By: #### L [id number] #### [facility] [address] [address] Renard Montes M.D. [id number] Platelets (Bld) [#/Vol] 276 10*3/uL Normal 150-400 [facility] Comment on above: Performed By: #### L [id number] #### [facility] [address] [address] Renard Montes M.D. [id number] RBC (Bld) [#/Vol] 4.79 10*6/uL Normal 4.50-5.90 [facility] Comment on above: Performed By: #### L [id number] #### [facility] [address] [address] Renard Montes M.D. [id number] WBC (Bld) [#/Vol] 8.15 10*3/uL Normal 4.50-11.00 [facility] Comment on above: Performed By: #### L [id number] #### [facility] [address] [address] Renard Montes M.D. [id number] COMPREHENSIVE METABOLIC PANE [place] 07-20-2024 Albumin [Mass/Vol] 4.2 g/dL Normal 3.2-5.2 [facility] Comment on above: Order Comment: [facility] has implemented the eGFR calculation approach that does not have a coefficient for race that conforms to the NKF-ASN Task Force Recommendations. Performed By: #### 4 [id number] #### LAB [address] [place] [address] Renard Montes M.D. [id number] ALP [Catalytic activity/Vol] 85 U/L Normal 40-150 [facility] Comment on above: Order Comment: [facility] has implemented the eGFR calculation approach that does not have a coefficient for race that conforms to the NKF-ASN Task Force Recommendations. Performed By: #### 4 6126 #### LAB [address] [address] Renard Montes M.D. [id number] ALT [Catalytic activity/Vol] 9 U/L Normal 0-50 U/L [facility] Comment on above: Order Comment: [facility] has implemented the eGFR calculation approach that does not have a coefficient for race that conforms to the NKF-ASN Task Force Recommendations. Performed By: #### 4 6126 #### LAB [address] [place] [address] Renard Montes M.D. [id number] Anion gap [Moles/Vol] 15 mmol/L Normal 10-20 [facility] Comment on above: Order Comment: [facility] has implemented the eGFR calculation approach that does not have a coefficient for race that conforms to the NKF-ASN Task Force Recommendations. Performed By: #### 4 6126 #### LAB [address] [place] [address] Renard Montes M.D. [id number] AST [Catalytic activity/Vol] 17 U/L Normal 0-50 U/L [facility] Comment on above: Order Comment: [facility] has implemented the eGFR calculation approach that does not have a coefficient for race that conforms to the NKF-ASN Task Force Recommendations. Performed By: #### 4 6126 #### LAB [address] [place] [address] Renard Montes M.D. [id number] Bilirubin [Mass/Vol] 0.4 mg/dL Normal 0.0-1.3 [facility] Comment on above: Order Comment: [facility] has implemented the eGFR calculation approach that does not have a coefficient for race that conforms to the NKF-ASN Task Force Recommendations. Performed By: #### 4 6126 #### LAB [address] [place], [place] [address] Renard Montes M.D. [id number] Calcium [Mass/Vol] 9.5 mg/dL Normal 8.4-10.2 [facility] Comment on above: Order Comment: [facility] has implemented the eGFR calculation approach that does not have a coefficient for race that conforms to the NKF-ASN Task Force Recommendations. Performed By: #### 4 6126 #### LAB [address] [place] [id number] Renard Montes M.D. [id number] Chloride [Moles/Vol] 107 mmol/L Normal 98-108 [facility] Comment on above: Order Comment: [facility] has implemented the eGFR calculation approach that does not have a coefficient for race that conforms to the NKF-ASN Task Force Recommendations. Performed By: #### 4 6126 #### LAB [address] [place] [id number] Renard Montes M.D. [id number] Creatinine [Mass/Vol] 0.89 mg/dL Normal 0.80-1.30 [facility] Comment on above: Order Comment: [facility] has implemented the eGFR calculation approach that does not have a coefficient for race that conforms to the NKF-ASN Task Force Recommendations. Performed By: #### 4 6126 #### LAB [address] [place], [place] [address] Renard Montes M.D. [id number] EGFR 87 mL/min/1.73 m2 Normal >=60 [facility] Comment on above: Order Comment: [facility] has implemented the eGFR calculation approach that does not have a coefficient for race that conforms to the NKF-ASN Task Force Recommendations. Result Comment: Seth mated GFR was calculated using the 2020 CKD-EPI creatinine equation. Performed By: #### 4 6126 #### LAB [address] [place] [address] Renard Montes M.D. [id number] Glucose [Mass/Vol] 98 mg/dL Normal 65-99 [facility] Comment on above: Order Comment: [facility] has implemented the eGFR calculation approach that does not have a coefficient for race that conforms to the NKF-ASN Task Force Recommendations. Performed By: #### 4 6126 #### LAB [address] [place] [address] Renard Montes M.D. [id number] HCO3 (Bld) [Moles/Vol] 26 mmol/L Normal 21-32 [facility] Comment on above: Order Comment: [facility] has implemented the eGFR calculation approach that does not have a coefficient for race that conforms to the NKF-ASN Task Force Recommendations. Performed By: #### 4 6126 #### LAB [address] [place] [address] Renard Montes M.D. [id number] Potassium [Moles/Vol] 4.5 mmol/L Normal 3.5-5.1 [facility] Comment on above: Order Comment: [facility] has implemented the eGFR calculation approach that does not have a coefficient for race that conforms to the NKF-ASN Task Force Recommendations. Performed By: #### 4 6126 #### LAB [address] [place] [address] Renard oMntes M.D. [id number] Protein [Mass/Vol] 6.7 g/dL Normal 6.0-8.0 [facility] Comment on above: Order Comment: [facility] has implemented the eGFR calculation approach that does not have a coefficient for race that conforms to the NKF-ASN Task Force Recommendations. Performed By: #### 4 6126 #### [facility] LAB [address] [address] Renard Montes M.D. [id number] Sodium [Moles/Vol] 143 mmol/L Normal 135-145 [facility] Comment on above: Order Comment: [facility] has implemented the eGFR calculation approach that does not have a coefficient for race that conforms to the NKF-ASN Task Force Recommendations. Performed By: #### 4 6126 #### LAB [address] [place], [place] [address] Renard Montes M.D. [id number] Urea nitrogen [Mass/Vol] 16 mg/dL Normal 8-25 [facility] Comment on above: Order Comment: [facility] has implemented the eGFR calculation approach that does not have a coefficient for race that conforms to the NKF-ASN Task Force Recommendations. Performed By: #### 4 6126 #### LAB [address] [address] Renard Montes M.D. [id number] Urea nitrogen/Creatinine [Mass ratio] 18.0 mg/mg Normal 10.0-20.0 [facility] Comment on above: Order Comment: [facility] has implemented the eGFR calculation approach that does not have a coefficient for race that conforms to the NKF-ASN Task Force Recommendations. Performed By: #### 4 6126 #### LAB [address] [address] Renard Montes M.D. [id number] CT ANGIOGRAM HEAD NECKon CT ANGIOGRAM HEAD NECK EXAMINATION: CT ANGIOGRAM HEAD NECK HISTORY: abnormal finding on US, concern for clot in neck vessel Injury/Trauma or Illness?:Illness/Other How long have you had these symptoms (acute/chronic)?:Acute Reason for exam?:abnormal finding on US, concern for clot in neck vessel Type of Exam?:Initial Additional signs and symptoms?:- COMPARISON: Ultrasound soft tissue neck dated 07/20 2024. TECHNIQUE: CT head without contrast followed by CT angiogram images of the head and neck with intravenous contrast. Multiplanar reformations were obtained. Measurement of carotid stenosis is based on NASCET criteria. Dose reduction technique used: Automatic exposure control and/or adjustment of the mA and/or kV according to patient size and/or use of degenerative reconstruction technique. FINDINGS: HEAD: Noncontrast head CT: Mild generalized parenchymal volume loss is associated with compensatory prominence of the ventricles and extra-axial CSF spaces. No mass effect or midline shift. No acute intracranial hemorrhage. No territorial loss of llanos-white matter differentiation. No intracranial hemorrhage. Basal cisterns are patent. No extra-axial fluid collection. No hyperdense vessel sign. Vascular calcifications are present at the bilateral V4 vertebral artery segments and carotid siphons. Patient has had previous right lens surgery. The paranasal sinuses are well aerated. Mild leftward deviation of the nasal septum. Mastoid air cells/middle ears are well aerated. No destructive calvarial lesion. Anterior circulation: There are atherosclerotic calcifications throughout the bilateral carotid siphons, resulting in approximately moderate grade nonocclusive narrowing. The bilateral MCA M1 and M2 segments remain patent. The left SHARATH A1 segment is hypoplastic although patent. The right SHARATH A1 and bilateral SHARATH A2 segments are patent. No large vessel occlusion. Posterior circulation: The left vertebral artery appears dominant. Atherosclerotic plaque at the left V4 vertebral artery segment results in moderate to severe luminal stenosis without occlusion. The bilateral V4 vertebral artery segments remain patent. The basilar artery is patent. The bilateral [employer] P1 and P2 segments are patent. No large vessel occlusion. Venous vasculature: No evidence of venous thrombosis. Right side dominant venous system. NECK: Vasculature: There is a 3 branch aortic pattern. There are atherosclerotic calcifications along the visualized aortic arch. The branch vasculature remains patent. The bilateral common carotid arteries are widely patent. Atherosclerotic calcifications at the carotid bifurcations results in less than 50% stenosis by NASCET criteria. The cervical vertebral arteries are patent. The left cervical vertebral artery appears slightly dominant. Atherosclerotic plaque the bilateral vertebral artery origins results in mild narrowing. The right jugular vein partially opacifies with contrast. There is no contrast opacification of the left jugular vein, a finding favored to represent bolus timing in setting of a right sided dominant venous system. Suprahyoid neck: Right palatine tonsil calcifications. Parapharyngeal fat is not displaced. The parotid glands and submandibular glands are normal. Infrahyoid neck: The true vocal cords are symmetric. Thyroid: Multinodular thyroid is better evaluated on same day dedicated ultrasound. Bone: Bones are osteopenic. Multilevel degenerative changes throughout the cervical spine, resulting in at least moderate spinal canal stenosis at C6-C7. Upper thorax: Small pericardial effusion. Calcified left hilar lymph nodes. Left subclavian approach cardiac device is partially profiled. Coronary artery calcifications are partially profiled. Reticular opacities throughout the visualized lung apices favors fibrosis/scarring. IMPRESSION: 1. No acute intracranial abnormality within limitations of CT. 2. Intracranial vascular calcifications resulting in stenoses of the left intracranial vertebral artery and bilateral intracranial ICAs. No intracranial large vessel occlusion. 3. Atherosclerotic calcifications at the carotid bifurcations without flow limiting stenosis or occlusion. The bilateral cervical vertebral arteries are also patent. 4. Partially imaged small pericardial effusion. 5. Pulmonary scarring/fibrosis. 6. Please refer to same day ultrasound for evaluation of multinodular thyroid gland. 7. The veins are not evaluated on this study due to arterial timing of contrast. Workstation ID: [id number] Dictated by: MARIA A JACQUES on [place] Jul 20, 2024 6:51:27 PM EST Transcribed by: MARIA A JACQUES on [place] Jul 20, 2024 6:51:27 PM EST Finalized by: MARIA A JACQUES on [place] Jul 20, 2024 6:51:27 PM EST Normal [facility] Comment on above: Order Comment: Injur y/Trauma or Illness?:Illness/Other How long have you had these symptoms (acute/chronic)?:Acute Reason for exam?:abnormal finding on US, concern for clot in neck vesse Type of Exam?:Initial Additional signs and symptoms?:- ED Procedureon 07-20-2024 ED Procedure EKG 12-lead Date/Time: 07/20/2024 6:07 PM Performed by: Susana Weller DO Authorized by: Susana Weller DO Interpreted by ED attending physician Rhythm: paced BPM: 73 Clinical impression: abnormal ECG and paced Comments: Ventricular paced rhythm with occasional PVC. Negative Sgarbossa criteria. Appropriate concordance. No STEMI. AUTHENTICATED BY SUSANA WELLER, ON 07/20/2024 18:16:51 Normal [facility] ED Prov Noteon 07-20-2024 ED Prov Note EMERGENCY MEDICINE PROVIDER NOTE WELCOME TO [facility] NAME: Rocio Sandoval AGE: 78 y.o. SEX: male : 1945 ENCOUNTER DATE: 07/20/24 CSN: [id number] PCP: Tye Anne MD History of Presenting Illness/Medical Decision Making The history was obtained from the patient and spouse. Rocio is a 78 y.o. male with a PMH as stated below, Primary Care Physician on file: Tye Anne MD , who presents with a chief complaint of Abnormal Imaging. Patient states that he was receiving an ultrasound of his thyroid in the outpatient setting today when they noticed an abnormal finding and was advised to come to the ED for further evaluation. Patient denies any concerns or issues otherwise other than his chronic low back pain that he has had for years. Denies any new or worsening back pain. Patient is a known history of atrial fibrillation and pacemaker placement, currently on Xarelto, states he has been compliant with hisanticoagulation without missed doses. Denies history of bleeding or clotting disorders. When asked about the abnormal findings the patient and the patient's spouse at bedside state that there is a mass or blood clot in some artery. Physical Exam Vital Signs Reviewed Patient Vitals for the past 24 hrs: BP Temp Temp src Pulse Resp SpO2 07/20/242029 126/84 -- -- -- -- 99 % 07/20/24 1930 (!) 146/86 -- -- 80 18 99 % 07/20/24 1906 (!) 175/77 -- -- 82 18 97 % 07/20/24 1653 (!) 162/79 97.4 degrees F (36.3 degrees C) Oral 76 18 98 % Physical Exam Vitals and nursing note reviewed. Constitutional: General: He is awake. He is not in acute distress. Appearance: Normal appearance. He is not ill-appearing, toxic-appearing or diaphoretic. HENT: Head: Normocephalic and atraumatic. Right Ear: External ear normal. Left Ear: External ear normal. Nose: Nose normal. Mouth/Throat: Lips: [place]. Mouth: Mucous membranes are moist. Eyes: General: Lids are normal. No scleral icterus. Extraocular Movements: Extraocular movements intact. Conjunctiva/sclera: Conjunctivae normal. Pupils: Pupils are equal, round, and reactive to light. Neck: Thyroid: Thyromegaly present. Vascular: No carotid bruit or JVD. Trachea: Phonation normal. Cardiovascular: Rate and Rhythm: Normal rate and regular rhythm. Pulses: Normal pulses. Heart sounds: Normal heart sounds. Musculoskeletal: Cervical back: Normal range of motion and neck supple. No edema, erythema or tenderness. Normal range of motion. Right lower leg: No edema. Left lower leg: No edema. Pulmonary: Effort: Pulmonary effort is normal. Breath sounds: Normal breath sounds and air entry. Abdominal: General: Abdomen is flat. Bowel sounds are normal. Palpations: Abdomen is soft. Tenderness: There is no abdominal tenderness. Skin: General: Skin is warm. Capillary Refill: Capillary refill takes less than 2 seconds. Neurological: General: No focal deficit present. Mental Status: He is alert and oriented to person, place, and time. Cranial Nerves: Cranial nerves 2-12 are intact. Sensory: Sensation is intact. Motor: Motor function is intact. Coordination: Coordination is intact. Gait: Gait is intact. Deep Tendon Reflexes: Reflexes are normal and symmetric. Psychiatric: Attention and Perception: Attention and perception normal. Mood and Affect: Mood and affect normal. Speech: Speech normal. Behavior: Behavior normal. Behavior is cooperative. Wt Readings from Last 10 Encounters: 07/16/24 106.3 kg (234 lb 6.4 oz) 09/06/23 98.9 kg (218 lb) 04/30/23 98 kg (216 lb) 04/12/23 98.3 kg (216 lb 12.8 oz) 01/05/23 101 kg (222 lb 10.6 oz) 12/12/22 98 kg (216 lb 0.8 oz) 10/05/22 97.5 kg (215 lb) 08/01/22 97.5 kg (215 lb) 05/09/22 127 kg (280 lb) 07/25/21 127 kg (280 lb) Clinical Results CT Angiogram Head Neck Final Result 1. No acute intracranial abnormality within limitations of CT. 2. Intracranial vascular calcifications resulting in stenoses of the left intracranial vertebral artery and bilateral intracranial ICAs. No intracranial large vessel occlusion. 3. Atherosclerotic calcifications at the carotid bifurcations without flow limiting stenosis or occlusion. The bilateral cervical vertebral arteries are also patent. 4. Partially imaged small pericardial effusion. 5. Pulmonary scarring/fibrosis. 6. Please refer to same day ultrasound for evaluation of multinodular thyroid gland. 7. The veins are not evaluated on this study due to arterial timing of contrast. Workstation ID: [id number] Labs Reviewed CBC WITH AUTO DIFFERENTIAL - Abnormal; Notable for the following components: Result Value MCHC 30.6 (*) RDW - CV 15.5 (*) All other components within normal limits COMPREHENSIVE METABOLIC PANEL - Normal Narrative: [facility] has implemented the eGFR calculation approach that does not have a coefficie (more content not included)... 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 FINDINGS: Right thyroid 5.0 x 2.1 x 1.9 cm. Calcified nodule superior right gland measures up to 1.7 cm. Left thyroid 4.6 x 1.8 x 1.6 cm. No mass. Thyroid isthmus is 0.4 cm in thickness. No hyperemia identified with color Doppler. Borderline prominent lymph nodes are seen in the left neck level 4, measuring up to 8 mm in short axis with compressed fatty kostas. IMPRESSION: 1. Peripherally calcified thyroid nodule in the right hemithyroid. Consider ultrasound-guided fine-needle aspiration as this is TIRADS 4. 2. No hyperemia of the thyroid. 3. Mildly enlarged lymph nodes in the left neck at level 4 region. Consider ultrasound follow-up in 3-6 months time. [facility] Workstation ID: [id number] Dictated by: WOODY PIMENTEL on [place] Jul 20, 2024 5:20:46 PM EST Transcribed by: LUDIVINA MULTANI on [place] Jul 20, 2024 6:04:35 PM EST Finalized by: WOODY PIMENTEL on [place] Jul 20, 2024 6:42:49 PM EST Normal [facility] Comment on above: Order Comment: Injur y/Trauma or Illness?:Illness/Other How long have you had these symptoms (acute/chronic)?:Acute Reason for exam?:thyrotoxicosis History of cancer?:no Surgeries, chemotherapy, or radiation?:no Type of Exam?:Initial Additional signs and symptoms?:none T3, TOTALon 07-19-2024 T3, TOTAL 92 ng/dL Normal 76-181 [facility] Comment on above: Performed By: #### 8 66, 85, 867 #### [facility] [place] [address] Rivet Spinner: Camilo Sylvester MD #### [id number] #### [facility]/[address] [place], [place] Rivet Spinner: Benjamin Reis M.D.,PhD T4 (THYROXINE), TOTALon 07-02 T4 [Mass/Vol] 6.9 ug/dL Normal 4.9-10.5 [facility] Comment on above: Performed By: #### 8 66, 85, 867 #### [facility] [place] [address] Riv[place] Spinner: Camilo Sylvester MD #### [id number], [id number] #### [facility]/[address] [place], [place] Rivet Spinner: Benjamin Reis M.D.,PhD T4, FREEon 07-19-2024 Free T4 [Mass/Vol] 1.5 ng/dL Normal 0.8-1.8 [facility] Comment on above: Performed By: #### 8 , 85, 867 #### [facility] [place] [address] Rivet Spinner: Camilo Sylvester MD #### [id number], [id number] #### [facility]/[address] [place], [place] Rivet Spinner: Benjamin Reis M.D.,PhD TRABon 07-19-2024 TRAB <1.00 Normal <=2.00 [facility] Comment on above: Result Comment: This test was performed using the TRAb Antibody MEGHAN method which is standardized against the 1st International Standard 90/672 and is reported in International Units (IU/L). The reference range reported was established specifically for this test method. Performed By: #### 8 , 85, 867 #### [facility] [address], [address] [place] [id number] Rivet Spinner: Camilo Sylvester MD #### [id number], [id number] #### [facility] [address] [facility] [place], [place] Rivet Spinner: Benjamin Reis M.D.,PhD TSHon 07-19-2024 TSH Qn 0.07 m[IU]/L Low 0.40-4.50 [facility] Comment on above: Performed By: #### 8 66, 859, 867 #### [facility] [address], [address] [place] [address] Rivet Spinner: Camiol Sylvester MD #### [id number], [id number] #### [facility] [address] [facility] [place], [place] Rivet Spinner: Benjamin Reis M.D.,PhD TSI (THYROID STIMULATING IMM UNOGLOBULIN)on 07-19-2024 TSI <89 Normal <140 [facility] Comment on above: Result Comment: Thyroid stimulating immunoglobulins (TSI) can engage the TSH receptors resulting in hyperthyroidism in Graves' disease patients. TSI levels can be useful in monitoring the clinical outcome of Graves' disease as well as assessing the potential for hyperthyroidism from maternal- transfer. TSI results greater than or equal to (>=) 140% of the Reference Control are considered positive. NOTE: A serum TSH level greater than 350 micro-International Units/mL can interfere with the TSI bioassay and potentially give false positive results. Patients who are and are suspected of having hyperthyroidism should have both TSI and human Chorionic Gonadotropin(hCG) tests measured. A serum hCG level greater than 40,625 mIU/mL can interfere with the TSI bioassay and may give false negative results. In these patients it is recommended that a second TSI be obtained when the hCG concentration falls below 40,625 mIU/mL (usually after approximately 20-weeks gestation). The analytical performance characteristics of this assay have been determined by [facility] [place], [place]. The modifications have not been cleared or approved by the FDA. This assay has been validated pursuant to the CLIA regulations and is used for clinical purposes. Performed By: #### 8 66, 984, 867 #### [facility] [address] [facility], [address] [place] [address] Rivet Spinner: Camilo Sylvester MD #### [id number], [id number] #### [facility] [address] [place] [address] Rivet Spinner: Benjamin Reis M.D.,PhD No Panel Informationon 07-17 [facility] T3on 07-17-2024 T3 [Mass/Vol] 92 ng/dL 76 - 181 ng/dL [facility] T4on 07-17-2024 T4 [Mass/Vol] 6.9 ug/dL [facility] T4, freeon 07-17-2024 Free T4 [Mass/Vol] 1.5 ng/dL 0.8 - 1.8 ng/dL [facility] TSH DL <= 0.005 mIU/L Qnon 0 07-17-2024 Interpretation and review of laboratory results Abnormal [facility] TSH Qn 0.07 m[IU]/L Low [facility] CBC W Auto Differential pane l (Bld)on 06-12-2024 Basophils (Bld) [#/Vol] 0.04 10*3/uL [facility] Basophils/100 WBC (Bld) 0.6 % 0.0 - 2.0 % [place] [facility] [facility] Eosinophils (Bld) [#/Vol] 0.15 10*3/uL [facility] Eosinophils/100 WBC (Bld) 2.1 % 0.0 - 6.0 % [facility] Erythrocyte distribution width (RBC) [Ratio] 15 % High 11.5 - 14.5 % [facility] Hematocrit (Bld) [Volume fraction] 41.3 % 41.0 - 52.0 % [facility] Hemoglobin (Bld) [Mass/Vol] 12.9 g/dL Low 13.5 - 17.5 g/dL [facility] Immature granulocytes (Bld) [#/Vol] 0.01 10*3/uL [facility] Immature granulocytes/100 WBC (Bld) 0.1 % 0.0 - 0.9 % [facility] Comment on above: Immature Granulocyte Count (IG) includes promyelocytes, myelocytes and metamyelocytes but does not include bands. Percent differential counts (%) should be interpreted in the context of the absolute cell counts (cells/UL). Interpretation and review of laboratory results Abnormal [facility] Lymphocytes (Bld) [#/Vol] 1.63 10*3/uL [facility] Lymphocytes/100 WBC (Bld) 22.8 % 13.0 - 44.0 % [facility] MCH (RBC) [Entitic mass] 29.3 pg 26.0 - 34.0 pg [facility] MCHC (RBC) [Mass/Vol] 31.2 g/dL Low 32.0 - 36.0 g/dL [facility] MCV (RBC) [Entitic vol] 94 fL 80 - 100 fL [facility] Monocytes (Bld) [#/Vol] 0.65 10*3/uL [facility] Monocytes/100 WBC (Bld) 9.1 % 2.0 - 10.0 % [facility] Neutrophils (Bld) [#/Vol] 4.66 10*3/uL [facility] Comment on above: Percent differential counts (%) should be interpreted in the context of the absolute cell counts (cells/uL). Neutrophils/100 WBC (Bld) 65.3 % 40.0 - 80.0 % [facility] Nucleated RBC/100 WBC (Bld) [Ratio] 0 % [facility] Platelets (Bld) [#/Vol] 274 10*3/uL [facility] RBC (Bld) [#/Vol] 4.41 10*6/uL Low [facility] WBC (Bld) [#/Vol] 7.1 10*3/uL [facility] Basophils (Bld) [#/Vol] 0.04 x10*3/uL Normal 0.00-0.10 [facility] Comment on above: Performed By: #### 5 7021-8 #### CASTELLANOS CHACHO ([id number]) [facility] ([facility]) [address] [place] [address] 82844 Basophils/100 WBC (Bld) 0.6 % Normal 0.0-2.0 [facility] Comment on above: Performed By: #### 5 7021-8 #### EMANUEL FLOR ([id number]) [facility] ([facility]) [address] [place] [address] 52417 Eosinophils (Bld) [#/Vol] 0.15 x10*3/uL Normal 0.00-0.40 [facility] Comment on above: Performed By: #### 7021-8 #### EMANUEL FLOR ([id number]) [facility] ([facility]) [address] [place] [address] 98248 Eosinophils/100 WBC (Bld) 2.1 % Normal 0.0-6.0 [facility] Comment on above: Performed By: #### 7021-8 #### EMANUEL FLOR ([id number]) [facility] ([facility]) [address] [place] [address] Erythrocyte distribution width (RBC) [Ratio] 15.0 % High 11.5-14.5 [facility] Comment on above: Performed By: #### 7021-8 #### EMANUEL FLOR ([id number]) [facility] ([facility]) [address] [place] [address] Hematocrit (Bld) [Volume fraction] 41.3 % Normal 41.0-52.0 [facility] Comment on above: Performed By: #### 5 7021-8 #### EMANUEL FLOR ([id number]) [facility] ([facility]) [address] [place] [address] 51095 Hemoglobin (Bld) [Mass/Vol] 12.9 g/dL Low 13.5-17.5 [facility] Comment on above: Performed By: #### 5 7021-8 #### EMANUEL FLOR ([id number]) [facility] ([facility]) [address] [place] [address] 64892 Immature granulocytes (Bld) [#/Vol] 0.01 x10*3/uL Normal 0.00-0.50 [facility] Comment on above: Performed By: #### 5 7021-8 #### EMANUEL FLOR ([id number]) [facility] ([facility]) [address] [place] [address] 66358 Immature granulocytes/100 WBC (Bld) 0.1 % Normal 0.0-0.9 [facility] Comment on above: Result Comment: Kathy ture Granulocyte Count (IG) includes promyelocytes, myelocytes and metamyelocytes but does not include bands. Percent differential counts (%) should be interpreted in the context of the absolute cell counts (cells/UL). Performed By: #### 5 7021-8 #### EMANUEL FLOR ([id number]) [facility] ([facility]) [address] [place] [address] 10880 Lymphocytes (Bld) [#/Vol] 1.63 x10*3/uL Normal 0.80-3.00 [facility] Comment on above: Performed By: #### 5 7021-8 #### EMANUEL FLOR ([id number]) [facility] ([facility]) [address] [place] [address] 79134 Lymphocytes/100 WBC (Bld) 22.8 % Normal 13.0-44.0 [facility] Comment on above: Performed By: #### 5 7021-8 #### EMANUEL FLOR ([id number]) [facility] ([facility]) [address] [place] [address] 98268 MCH (RBC) [Entitic mass] 29.3 pg Normal 26.0-34.0 [facility] Comment on above: Performed By: #### 5 7021-8 #### EMANUEL FLOR ([id number]) [facility] ([facility]) [address] [place] [address] 02133 MCHC (RBC) [Mass/Vol] 31.2 g/dL Low 32.0-36.0 [facility] Comment on above: Performed By: #### 5 7021-8 #### EMANUEL FLOR ([id number]) [facility] ([facility]) [address] [place] [address] 47429 MCV (RBC) [Entitic vol] 94 fL Normal 80-100 [facility] Comment on above: Performed By: #### 5 7021-8 #### EMANUEL FLOR ([id number]) [facility] ([facility]) [address] [place] [address] 25028 Monocytes (Bld) [#/Vol] 0.65 x10*3/uL Normal 0.05-0.80 [facility] Comment on above: Performed By: #### 5 7021-8 #### EMANUEL FLOR ([id number]) [facility] ([facility]) [address] [place] [address] 46503 Monocytes/100 WBC (Bld) 9.1 % Normal 2.0-10.0 [facility] Comment on above: Performed By: #### 5 7021-8 #### EMANUEL FLOR ([id number]) [facility] ([facility]) [address] [place] [address] 57293 Neutrophils (Bld) [#/Vol] 4.66 x10*3/uL Normal 1.60-5.50 [facility] Comment on above: Result Comment: Perc ent differential counts (%) should be interpreted in the context of the absolute cell counts (cells/uL). Performed By: #### 5 7021-8 #### EMANUEL FLOR ([id number]) [facility] ([facility]) [address] [place] [address] 17465 Neutrophils/100 WBC (Bld) 65.3 % Normal 40.0-80.0 [facility] Comment on above: Performed By: #### 5 7021-8 #### EMANUEL FLOR ([id number]) [facility] ([facility]) [address] [place] [address] 88614 Nucleated RBC/100 WBC (Bld) [Ratio] 0.0 /100 WBCs Normal 0.0-0.0 [facility] Comment on above: Performed By: #### 5 7021-8 #### EMANUEL FLOR ([id number]) [facility] ([facility]) [address] [place] [address] 76323 Platelets (Bld) [#/Vol] 274 x10*3/uL Normal 150-450 [facility] Comment on above: Performed By: #### 5 7021-8 #### EMANUEL FLOR ([id number]) [facility] ([facility]) [facility] [place] [address] RBC (Bld) [#/Vol] 4.41 x10*6/uL Low 4.50-5.90 [facility] Comment on above: Performed By: #### 5 7021-8 #### EMANUEL FLOR ([id number]) [facility] ([facility]) [facility] [place] [address] WBC (Bld) [#/Vol] 7.1 x10*3/uL Normal 4.4-11.3 [facility] Comment on above: Performed By: #### 5 7021-8 #### EMANUEL FLOR ([id number]) [facility] ([facility]) [address] [place] [address] 61299 Comprehensive metabolic 2000 panelon 06-12-2024 Albumin BCP dye [Mass/Vol] 3.7 g/dL 3.4 - 5.0 g/dL [facility] ALP [Catalytic activity/Vol] 77 U/L 33 - 136 U/L [facility] ALT With P-5'-P [Catalytic activity/Vol] 16 U/L 10 - 52 U/L [facility] Comment on above: Patients treated wit h Sulfasalazine may generate falsely decreased results for ALT. Anion gap [Moles/Vol] 9 mmol/L Low 10 - 2 0 mmol/L [facility] AST With P-5'-P [Catalytic activity/Vol] 17 U/L 9 - 39 U/L [facility] Bilirubin [Mass/Vol] 0.6 mg/dL 0.0 - 1 .2 mg/dL [facility] Calcium [Mass/Vol] 8.7 mg/dL 8.6 - 10. 3 mg/dL [facility] Chloride [Moles/Vol] 109 mmol/L High 98 - 10 7 mmol/L [facility] CO2 [Moles/Vol] 26 mmol/L 21 - 32 mmol/L [facility] Creatinine [Mass/Vol] 1.05 mg/dL 0.50 - 1.30 mg/dL [facility] GFR/1.73 sq M.predicted among non-blacks MDRD (S/P/Bld) [Vol rate/Area] 72 mL/min/{1.73_m2} - PINF [facility] Comment on above: Calculations of seth mated GFR are performed using the 2020 CKD-EPI Study Refit equation without the race variable for the IDMS-Traceable creatinine methods. https://jasn.asnjournals.org/content/early//ASN.41049 38862 Glucose [Mass/Vol] 103 mg/dL High 74 - 99 mg/dL [facility] Interpretation and review of laboratory results Abnormal [facility] Potassium [Moles/Vol] 4.2 mmol/L 3.5 - 5.3 mmol/L [facility] Protein [Mass/Vol] 6.5 g/dL 6.4 - 8.2 g/dL [facility] Sodium [Moles/Vol] 140 mmol/L 136 - 145 mmol/L [facility] Urea nitrogen [Mass/Vol] 16 mg/dL 6 - 23 mg/dL [facility] Albumin BCP dye [Mass/Vol] 3.7 g/dL Normal 3.4-5.0 [facility] Comment on above: Performed By: #### 3 016-3 #### EMANUEL FLOR ([id number]) [facility] ([facility]) [facility] [place] [address] ALP [Catalytic activity/Vol] 77 U/L Normal 33-136 [facility] Comment on above: Performed By: #### 3 016-3 #### EMANUEL FLOR ([id number]) [facility] ([facility]) [facility] [place] [address] ALT With P-5'-P [Catalytic activity/Vol] 16 U/L Normal 10-52 [facility] Comment on above: Result Comment: Lien ents treated with Sulfasalazine may generate falsely decreased results for ALT. Performed By: #### 3 016-3 #### EMANUEL FLOR ([id number]) [facility] ([facility]) [facility] [place] [address] Anion gap [Moles/Vol] 9 mmol/L Low 10-20 [facility] Comment on above: Performed By: #### 3 016-3 #### EMANUEL FLOR ([id number]) [facility] ([facility]) [address] [place] [address] AST With P-5'-P [Catalytic activity/Vol] 17 U/L Normal 9-39 [facility] Comment on above: Performed By: #### 3 016-3 #### EMANUEL FLOR ([id number]) [facility] ([facility]) [address] [place] [address] 55917 Bilirubin [Mass/Vol] 0.6 mg/dL Normal 0.0-1.2 [facility] Comment on above: Performed By: #### 3 016-3 #### EMANUEL FLOR ([id number]) [facility] ([facility]) [address] [place] [address] 91566 Calcium [Mass/Vol] 8.7 mg/dL Normal 8.6-10.3 [facility] Comment on above: Performed By: #### 3 016-3 #### EMANUEL FLOR ([id number]) [facility] ([facility]) [address] [place] [address] 27939 Chloride [Moles/Vol] 109 mmol/L High 98-107 [facility] Comment on above: Performed By: #### 3 016-3 #### EMANUEL FLOR ([id number]) [facility] ([facility]) [address] [place] [address] 58813 CO2 [Moles/Vol] 26 mmol/L Normal 21-32 [facility] Comment on above: Performed By: #### 3 016-3 #### EMANUEL FLOR ([id number]) [facility] ([facility]) [address] [place] [address] 16868 Creatinine [Mass/Vol] 1.05 mg/dL Normal 0.50-1.30 [facility] Comment on above: Performed By: #### 3 016-3 #### EMANUEL FLOR ([id number]) [facility] ([facility]) [facility] [place] [address] Glomerular filtration rate/1.73 sq M.predicted 72 mL/min/1.73m*2 Normal >60 [facility] Comment on above: Result Comment: Calc ulations of estimated GFR are performed using the 2020 CKD-EPI Study Refit equation without the race variable for the IDMS-Traceable creatinine methods. https://jasn.asnjournals.org/content/early/ASN.05949 68153 Performed By: #### 3 016-3 #### EMANUEL FLOR ([id number]) [facility] ([facility]) [address] [place] [address] 91303 Glucose [Mass/Vol] 103 mg/dL High 74-99 [facility] Comment on above: Performed By: #### 3 016-3 #### EMANUEL FLOR ([id number]) [facility] ([facility]) [address] [place] [address] 86806 Potassium [Moles/Vol] 4.2 mmol/L Normal 3.5-5.3 [facility] Comment on above: Performed By: #### 3 016-3 #### EMANUEL FLOR ([id number]) [facility] ([facility]) [address] [place] [address] 86078 Protein [Mass/Vol] 6.5 g/dL Normal 6.4-8.2 [facility] Comment on above: Performed By: #### 3 016-3 #### EMANUEL FLOR ([id number]) [facility] ([facility]) [address] [place] [address] 61008 Sodium [Moles/Vol] 140 mmol/L Normal 136-145 [facility] Comment on above: Performed By: #### 3 016-3 #### EMANUEL FLOR ([id number]) [facility] ([facility]) [address] [place] [address] 02244 Urea nitrogen [Mass/Vol] 16 mg/dL Normal 6-23 [facility] Comment on above: Performed By: #### 3 016-3 #### EMANUEL FLOR ([id number]) [facility] ([facility]) [address] [place] [address] ECG 12-LEADon 06-12-2024 ECG 12-LEAD Ventricular Rate 64 Atrial Rate 61 QRS Duration 200 Q-T Interval 502 QTC Calculation(Bazett) 517 R Barnhart -84 T Barnhart 83 QRS Count 10 Q Onset 182 T Offset 433 QTC Fredericia 512 Diagnosis Ventricular-paced rhythm with occasional Premature ventricular complexes Abnormal ECG When compared with ECG of 09-JUN-2024 10:00, Electronic ventricular pacemaker has replaced Wide QRS rhythm See ED provider note for full interpretation and clinical correlation Confirmed by Nirmala Pacheco ([id number]) on 06/14/2024 2:19:17 PM Normal [facility] FLUAV and FLUBV RNA TATI+prob e Nom (Unsp spec)on 06-12-2024 FLUAV RNA TATI+probe Ql (Resp) Not detected Not Detected [facility] FLUBV RNA TATI+probe Ql (Resp) Not detected Not Detected [facility] This assay is an in vitro diagnostic multiplex nucleic acid amplification test for the detection and discrimination of Influenza A & B from nasopharyngeal specimens, and has been validated for use at [facility]. Negative results do not preclude Influenza A/B infections, and should not be used as the sole basis for diagnosis, treatment, or other management decisions. If Influenza A/B and RSV PCR results are negative, testing for Parainfluenza virus, Adenovirus and Metapneumovirus is routinely performed for [facility] pediatric [facility]ology and intensive care inpatients, and is available on other patients by placing an add-on request. [facility] FLUAV RNA TATI+probe Ql (Resp) Not detected Normal Not Detected [facility] Comment on above: Order Comment: TSH t esting is performed using different testing methodology at [facility] than at [facility]. Direct result comparisons should only be made within the same method. Performed By: #### 3 016-3 #### EMANUEL FLOR ([id number]) [facility] ([facility]) [address] [place] [address] FLUBV RNA TATI+probe Ql (Resp) Not detected Normal Not Detected [facility] Comment on above: Order Comment: TSH t esting is performed using different testing methodology at [facility] than at other [facility]. Direct result comparisons should only be made within the same method. Performed By: #### 3 016-3 #### EMANUEL FLOR ([id number]) [facility] ([facility]) [address] [place] [address] 47065 Free T4 [Mass/Vol]on Interpretation and review of laboratory results Abnormal [facility] Thyroxine Free testi ng is performed using different testing methodology at [facility] than at other [facility]. Direct result comparisons should only be made within the same method. Biotin can cause falsely elevated free T4 results. Patients taking a Biotin dose of up to 10 mg/day should refrain from taking Biotin for 24 hours before sample collection. Patient taking a Biotin dose of >10 mg/day should consult with their physician or the laboratory before the blood draw. [facility] Magnesiumon 06-12-2024 Magnesium [Mass/Vol] 2.26 mg/dL 1.60 - 2.40 mg/dL [facility] Magnesium [Mass/Vol] 2.26 mg/dL Normal 1.60-2.40 [facility] Comment on above: Performed By: #### 3 016-3 #### EMANUEL FLOR ([id number]) [facility] ([facility]) [address] [place] [address] 76555 Magnesium [Mass/Vol]on 06-12 Interpretation and review of laboratory results Normal [facility] Natriuretic peptide B [Mass/ Vol]on 06-12-2024 Interpretation and review of laboratory results Abnormal [facility] Natriuretic peptide B (Bld) [Mass/Vol] 548 pg/mL High 0 - 99 pg/mL [facility] <100 pg/mL - Heart failure unlikely 100-299 pg/mL - Intermediate probability of acute heart failure exacerbation. Correlate with clinical context and patient history. >=300 pg/mL - Heart Failure likely. Correlate with clinical context and patient history. BNP testing is performed using different testing methodology at [facility] than at other [facility]. Direct result comparisons should only be made within the same method. [facility] Natriuretic peptide B (Bld) [Mass/Vol] 548 pg/mL High 0-99 [facility] Comment on above: Order Comment: TSH t esting is performed using different testing methodology at [facility] than at other [facility]. Direct result comparisons should only be made within the same method. Performed By: #### 3 016-3 #### EMANUEL FLOR ([id number]) [facility] ([facility]) [facility] [place] [address] No Panel Informationon 06-12 Extra Tube Hold for add-ons. [facility] Comment on above: Auto resulted. [facility] Interpretation and review of laboratory results Normal [facility] SARS coronavirus 2 RNAon SARS-CoV-2 (COVID-19) RNA TATI+probe Ql (Resp) Not detected Normal Not Detected [facility] Comment on above: Order Comment: TSH t esting is performed using different testing methodology at [facility] than at other [facility]. Direct result comparisons should only be made within the same method. Performed By: #### 3 016-3 #### EMANUEL FLOR ([id number]) [facility] ([facility]) [address] [place] [address] SARS-CoV-2 (COVID-19) RNA NA A+probe Ql (Resp)on 06-12-2024 This assay has received FDA Emergency Use Authorization (EUA) and is only authorized for the duration of time that circumstances exist to justify the authorization of the emergency use of in vitro diagnostic tests for the detection of SARS-CoV-2 virus and/or diagnosis of COVID-19 infection under section 564(b)(1) of the Act, 21 U.S.C. 360bbb-3(b)(1). This assay is an in vitro diagnostic nucleic acid amplification test for the qualitative detection of SARS-CoV-2 from nasopharyngeal specimens and has been validated for use at [facility]. Negative results do not preclude COVID-19 infections and should not be used as the sole basis for diagnosis, treatment, or other management decisions. [facility] Sars-CoV-2 PCRon 06-12-2024 SARS-CoV-2 (COVID-19) RNA TATI+probe Ql (Resp) Not detected Not Detected [facility] TSH WITH REFLEX TO FREE T4 I F ABNORMALon 06-12-2024 TSH Qn 0.02 m[IU]/L Low 0.44-3.98 [facility] Comment on above: Order Comment: TSH t esting is performed using different testing methodology at [facility] than at other [facility]. Direct result comparisons should only be made within the same method. Performed By: #### 3 016-3 #### EMANUEL FLOR ([id number]) [facility] ([facility]) [facility] [place] [address] TSH with reflex to Free T4 i f abnormalon 06-12-2024 Interpretation and review of laboratory results Abnormal [facility] TSH Qn 0.02 m[IU]/L Low [facility] TSH testing is performed using different testing methodology at [facility] than at other [facility]. Direct result comparisons should only be made within the same method. [facility] Thyroxine, Freeon 06-12-2024 Free T4 [Mass/Vol] 1.45 ng/dL High 0.61 - 1. 12 ng/dL [facility] Thyroxine.freeon 06-12-2024 Free T4 [Mass/Vol] 1.45 ng/dL High 0.61-1.12 [facility] Comment on above: Order Comment: TSH t esting is performed using different testing methodology at [facility] than at [facility]. Direct result comparisons should only be made within the same method. Performed By: #### 3 016-3 #### EMANUEL FLOR ([id number]) [facility] ([facility]) [address] [place], [place] [id number] Tropinin I.cardiac panel Hig h sensitivity methodon 06-12-2024 Interpretation and review of laboratory results Normal [facility] Less than 99th percentile of normal range cutoff- Female and children under 18 years old <14 ng/L; Male <21 ng/L: Negative Repeat testing should be performed if clinically indicated. Female and children under 18 years old 14-50 ng/L; Male 21-50 ng/L: Consistent with possible cardiac damage and possible increased clinical risk. Serial measurements may help to assess extent of myocardial damage. >50 ng/L: Consistent with cardiac damage, increased clinical risk and myocardial infarction. Serial measurements may help assess extent of myocardial damage. NOTE: Children less than 1 year old may have higher baseline troponin levels and results should be interpreted in conjunction with the overall clinical context. NOTE: Troponin I testing is performed using a different testing methodology at [facility] than at other [facility]. Direct result comparisons should only be made within the same method. [facility] Troponin I, High Sensitivity on 06-12-2024 Tropinin I.cardiac panel High sensitivity method 5 ng/L 0 - 20 ng/L [facility] Troponin I.cardiac panelon 1 08-13-2023 Tropinin I.cardiac panel High sensitivity method 5 ng/L Normal 0-20 [facility] Comment on above: Order Comment: TSH t esting is performed using different testing methodology at [facility] than at other [facility]. Direct result comparisons should only be made within the same method. Performed By: #### 3 016-3 #### EMANUEL FLOR ([id number]) [facility] ([facility]) [address] [place] [address] Urinalysis complete W Reflex Culture panel (U)on 06-12-2024 Appearance (U) Clear Normal Clear [facility] Comment on above: Order Comment: TSH t esting is performed using different testing methodology at [facility] than at other [facility]. Direct result comparisons should only be made within the same method. Performed By: #### 3 016-3 #### EMANUEL FLOR ([id number]) [facility] ([facility]) [address] [place], [place] [id number] Bacteria Auto (Urine sed) [#/Area] 1+ /HPF Abnormal NONE SEEN [facility] Comment on above: Performed By: #### 3 016-3 #### EMANUEL FLOR ([id number]) [facility] ([facility]) [address] [place], [place] [address] Bilirubin (U) [Mass/Vol] Negative Normal NEGATIVE [facility] Comment on above: Order Comment: TSH t esting is performed using different testing methodology at [facility] than at other [facility]. Direct result comparisons should only be made within the same method. Performed By: #### 3 016-3 #### EMANUEL FLOR ([id number]) [facility] ([facility]) [address] [place] [address] Color (U) Light-Yellow Normal Light-Yellow , Yellow, Dark-Yellow [facility] Comment on above: Order Comment: TSH t esting is performed using different testing methodology at [facility] than at other [facility]. Direct result comparisons should only be made within the same method. Performed By: #### 3 016-3 #### EMANUEL FLOR ([id number]) [facility] ([facility]) [address] [place] [address] Glucose Auto test strip (U) [Mass/Vol] OVER (4+) Abnormal Normal [facility] Comment on above: Order Comment: TSH t esting is performed using different testing methodology at [facility] than at other [facility]. Direct result comparisons should only be made within the same method. Performed By: #### 3 016-3 #### EMANUEL FLOR ([id number]) [facility] ([facility]) [address] [place] [address] Ketones (U) [Mass/Vol] Negative Normal NEGATIVE [facility] Comment on above: Order Comment: TSH t esting is performed using different testing methodology at [facility] than at other [facility]. Direct result comparisons should only be made within the same method. Performed By: #### 3 016-3 #### EMANUEL FLOR ([id number]) [facility] ([facility]) [address] [place], [place] [address] Leukocyte esterase Auto test strip Ql (U) Negative Normal NEGATIVE [facility] Comment on above: Order Comment: TSH t esting is performed using different testing methodology at [facility] than at other [facility]. Direct result comparisons should only be made within the same method. Performed By: #### 3 016-3 #### EMANUEL FLOR ([id number]) [facility] ([facility]) [address] [place], [place] [address] Mucus Auto (Urine sed) [#/Area] FEW Normal Reference range not established. [facility] Comment on above: Performed By: #### 3 016-3 #### EMANUEL FLOR ([id number]) [facility] ([facility]) [address] [place] [address] Nitrite Auto test strip Ql (U) Negative Normal NEGATIVE [facility] Comment on above: Order Comment: TSH t esting is performed using different testing methodology at [facility] than at [facility]. Direct result comparisons should only be made within the same method. Performed By: #### 3 016-3 #### EMANUEL FLOR ([id number]) [facility] ([facility]) [address] [place], [place] [address] pH (U) 6.0 [pH] Normal 5.0, 5.5, 6.0, 6.5, 7.0, 7.5, 8.0 [facility] Comment on above: Order Comment: TSH t esting is performed using different testing methodology at [facility] than at [facility]. Direct result comparisons should only be made within the same method. Performed By: #### 3 016-3 #### EMANUEL FLOR ([id number]) [facility] ([facility]) [address] [place] [address] Protein (U) [Mass/Vol] 30 (1+) Abnormal NEGAT ALLEN, 10 (TRACE), 20 (TRACE) [facility] Comment on above: Order Comment: TSH t esting is performed using different testing methodology at [facility] than at other [facility]. Direct result comparisons should only be made within the same method. Performed By: #### 3 016-3 #### EMANUEL FLOR ([id number]) [facility] ([facility]) [address] [place] [address]159 RBC (U) [#/Vol] 0.03 (TRACE) Abnormal NEGATIVE [facility] Comment on above: Order Comment: TSH t esting is performed using different testing methodology at [facility] than at other [facility]. Direct result comparisons should only be made within the same method. Performed By: #### 3 016-3 #### EMANUEL LFOR ([id number]) [facility] ([facility]) [address] [place] [address] 77714 RBC Auto (Urine sed) [#/Area] 11-20 Abnormal NONE, 1-2, 3-5 [facility] Comment on above: Performed By: #### 3 016-3 #### EMANUEL FLOR ([id number]) [facility] ([facility]) [address] [place] [address] Specific gravity (U) [Rel density] 1.031 Normal 1.005-1.035 [facility] Comment on above: Order Comment: TSH t esting is performed using different testing methodology at [facility] than at other [facility]. Direct result comparisons should only be made within the same method. Performed By: #### 3 016-3 #### EMANUEL FLOR ([id number]) [facility] ([facility]) [address] [place] [address] Urobilinogen (U) [Mass/Vol] Normal Normal Normal [facility] Comment on above: Order Comment: TSH t esting is performed using different testing methodology at [facility] than at other [facility]. Direct result comparisons should only be made within the same method. Performed By: #### 3 016-3 #### EMANUEL FLOR ([id number]) [facility] ([facility]) [address] [place] [address] WBC Auto (Urine sed) [#/Area] 1-5 Normal 1-5, NONE [facility] Comment on above: Performed By: #### 3 016-3 #### EMANUEL FLOR ([id number]) [facility] ([facility]) [address] [place], [place] [address] XR CHEST 2 VIEWSon 4 XR CHEST 2 VIEWS STUDY: Chest Radiographs; 06/12/2024 1:14 PM INDICATION: Cough. Congestion. COMPARISON: XR chest 05/13/2024. ACCESSION NUMBER(S): [id number] ORDERING CLINICIAN: SIMI BRAY TECHNIQUE: Frontal and lateral chest (three images). FINDINGS: CARDIOMEDIASTINAL SILHOUETTE: Heart is enlarged with left-sided cardiac pacemaker. Mild vascular congestion. LUNGS: Suspected subpleural fibrotic changes in the lungs relatively similar in appearance compared to 05/13/2024. No definite new areas of consolidation. Emphysematous changes also noted. ABDOMEN: No remarkable upper abdominal findings. BONES: No acute osseous changes. IMPRESSION: Suspected subpleural fibrotic changes in the lungs relatively similar in appearance compared to 05/13/2024. No definite new areas of consolidation. Signed by Mk Vasquez MD [facility] XR Chest 2 Viewson Suspected subpleural fibrotic changes in the lungs relatively similar in appearance compared to 05/13/2024. No definite new areas of consolidation. Signed by Mk Vasquez MD TELERADIOLOGY STUDY: Chest Radiographs; 06/12/2024 1:14 PM INDICATION: Cough. Congestion. COMPARISON: XR chest 05/13/2024. ACCESSION NUMBER(S): [id number] ORDERING CLINICIAN: SIMI Ruelas BILSHANTEBACK TECHNIQUE: Frontal and lateral chest (three images). FINDINGS: CARDIOMEDIASTINAL SILHOUETTE: Heart is enlarged with left-sided cardiac pacemaker. Mild vascular congestion. LUNGS: Suspected subpleural fibrotic changes in the lungs relatively similar in appearance compared to 05/13/2024. No definite new areas of consolidation. Emphysematous changes also noted. ABDOMEN: No remarkable upper abdominal findings. BONES: No acute osseous changes. TELERADIOLOGY kM Vasquez MD - 06/12/2024 STUDY: Chest Radiographs; 06/12/2024 1:14 PM INDICATION: Cough. Congestion. COMPARISON: XR chest 05/13/2024. ACCESSION NUMBER(S): [id number] ORDERING CLINICIAN: SIMI Ruelas BILDERBACK TECHNIQUE: Frontal and lateral chest (three images). FINDINGS: CARDIOMEDIASTINAL SILHOUETTE: Heart is enlarged with left-sided cardiac pacemaker. Mild vascular congestion. LUNGS: Suspected subpleural fibrotic changes in the lungs relatively similar in appearance compared to 05/13/2024. No definite new areas of consolidation. Emphysematous changes also noted. ABDOMEN: No remarkable upper abdominal findings. BONES: No acute osseous changes. IMPRESSION: Suspected subpleural fibrotic changes in the lungs relatively similar in appearance compared to 05/13/2024. No definite new areas of consolidation. Signed by Mk Vasquez MD [facility] Work Phone: Radiology Study observation (narrative) [facility] Work Phone: XR Chest 2 ViewsOrdered By: Mk Vasquez on 06-12-2024 [facility] Work Phone: CARDIOLOGY INTERPRETATION OF NUCLEAR STRESSon 06-09-2024 CARDIOLOGY INTERPRETATION [place] [address] [phone], Nuclear Pharmacologic Stress Test Patient Name: ROCIO SANDOVAL Ordering Provider: [id number] ARAVIND JIMENEZ Study Date: 06/09/2024 Reading Physician: [id number] Morgan MD MRN/PID: [id number] Supervising Physician: [id number] Morgan MD Fellow: Date of /Age: 2 1945 / 78 years Fellow: Gender: M Nurse: N/A Admit Date: 06/09/2024 Slip Dumper: Admission Status: Outpatient Investigator Fraud: N/A Height: 187.96 cm Technologist: Yara Meadows Weight: 105.69 kg Additional Staff: BSA: 2.32 m2 BMI: 29.92 kg/m2 Patient Location: [facility] Stress Lab Study Type: CARDIOLOGY INTERPRETATION OF NUCLEAR STRESS Diagnosis/ICD: Other forms of dyspnea-R06.09 Indication: Dyspnea on Exertion CPT Codes: Stress Test Interpretation-50122; Stress Test Supervision-[id number] Falls Risk: Low: Patient has low risk for sustaining a fall; environmental safety interventions in place. Study Details: Correct procedure and correct patient verified verbally and with ID Band checked. Patient History: Family history of coronary artery disease, hypertension, coronary artery disease, hyperlipidemia and PAF,HERNANDEZ, INTERNAL PACEMAKER [place] 05/2022, PAD. Allergies: None. Smoker: Never. Diabetes: Yes, managed with Insulin. BMI: Overweight 25 - 30. Medications: ATORVASTATIN, FUROSEMIDE, METIPROLOL,XARELTO,AMI ODARONE, METFORMIN, JARDIANCE. The patient did not take medications as prescribed. Patient Performance: Patient received a total of 0.4 mg of Regadenoson at 10:04:25 AM. Patient received a total of 33.2 mCi of Myoview at 10:05:10 AM. The patient did not exercise during infusion. The peak heart rate achieved was 75 bpm, which was 54 % of the age predicted target heart rate of 139 bpm. The resting blood pressure was 134/64 mmHg with a heart rate of 65 bpm. The patient developed no symptoms during the stress exam. The blood pressure response was normal. The test was terminated due to: completed lab protocol. Stress Stage Data: + +--+- -----+-------+ HR Sys BP Wei BP + +--+- -----+-------+ Baseline Resting 65 134 64 + +--+- -----+-------+ Stage 1/2 64 + +--+- -----+-------+ Stage I 68 121 74 + +--+- -----+-------+ Recovery ECG: The heart rate recovery was normal. + +--+----- -+-------+ HR Sys BP Wei BP + +--+----- -+-------+ Recovery I 67 + +--+----- -+-------+ Recovery II 64 126 70 + +--+----- -+-------+ Recovery III 64 + +--+----- -+-------+ Recovery IV 67 140 69 + +--+----- -+-------+ Summary: 1. Baseline EKG showing sinus rhythm intercalated with pacemaker rhythm and no resting ST-T segment changes. 2. With regadenoson infusion, there are no ST-T segment changes suggestive of ischemia. No sustained ventricular arrhythmias are seen. 3. Regadenoson stress EKG is non-diagnostic for ischemia due to underlying pacemaker rhythm. 4. Adequate level of stress achieved. 5. Nuclear image results are reported separately. [id number] Ernesto Morgan MD Electronically signed on 06/09/2024 at 2:59:25 PM Final [facility] NM Heart Perfusion W stress and W radionuclide Ifrah 06-09-2024 1. No evidence of inducible myocardial ischemia. 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 Moderate dilatation of left ventricle. 3. Global hypokinesis with a decreased post-stress LV EF estimated at 35%, was 49% previously. I personally reviewed the images/study and I agree with the findings as stated. This study was interpreted at [place], [place]. MACRO: None Signed by: Cielo Tony 06/09/2024 11:44 AM Dictation workstation: [id number] [facility] Interpreted By: Cielo Tony, STUDY: NUCLEAR STRESS TEST; 06/09/2024 11:31 am INDICATION: Signs/Symptoms:Shortne ss of breath, Fatigue. COMPARISON: Prior cardiac perfusion study on 07/22/2020 ACCESSION NUMBER(S): [id number] ORDERING CLINICIAN: ARAVIND JIMENEZ TECHNIQUE: DIVISION OF NUCLEAR MEDICINE PHARMACOLOGIC STRESS MYOCARDIAL PERFUSION SCAN, ONE DAY PROTOCOL The patient received an intravenous dose of 11.9 mCi of Tc-99m Myoview and resting emission tomographic (SPECT) images of the myocardium were acquired. The patient then received an intravenous infusion of 0.4mg regadenoson (Lexiscan) followed by an additional dose of 33.2 mCi of Tc-99m Myoview. Stress phase SPECT images of the myocardium were then acquired. These included ECG-gated images to assess and quantify ventricular function. A low-dose, nondiagnostic regional CT was utilized for attenuation correction purposes. FINDINGS: Predominantly fixed medium-sized moderate to severe perfusion defects involving apex, extends to apical anterior/inferior/sept al as well as lateral webster, likely representing prior infarction. Otherwise, both stress and rest studies demonstrate grossly normal perfusion throughout the remaining left ventricle. Moderate dilatation of left ventricle with EDV of 156 ml. Gated images demonstrate global hypokinesis with a decreased post-stress LV EF estimated at 35%, decreased in comparison to prior study which was 49%.. Attenuation correction CT images demonstrate no gross anatomic abnormalities. [facility] Cielo Tony MD - 06/09/2024 Interpreted By: Cielo Tony, STUDY: NUCLEAR STRESS TEST; 06/09/2024 11:31 am INDICATION: Signs/Symptoms:Shortne ss of breath, Fatigue. COMPARISON: Prior cardiac perfusion study on 07/22/2020 ACCESSION NUMBER(S): [id number] ORDERING CLINICIAN: ARAVIND JIMENEZ TECHNIQUE: DIVISION OF NUCLEAR MEDICINE PHARMACOLOGIC STRESS MYOCARDIAL PERFUSION SCAN, ONE DAY PROTOCOL The patient received an intravenous dose of 11.9 mCi of Tc-99m Myoview and resting emission tomographic (SPECT) images of the myocardium were acquired. The patient then received an intravenous infusion of 0.4mg regadenoson (Lexiscan) followed by an additional dose of 33.2 mCi of Tc-99m Myoview. Stress phase SPECT images of the myocardium were then acquired. These included ECG-gated images to assess and quantify ventricular function. A low-dose, nondiagnostic regional CT was utilized for attenuation correction purposes. FINDINGS: Predominantly fixed medium-sized moderate to severe perfusion defects involving apex, extends to apical anterior/inferior/sept al as well as lateral webster, likely representing prior infarction. Otherwise, both stress and rest studies demonstrate grossly normal perfusion throughout the remaining left ventricle. Moderate dilatation of left ventricle with EDV of 156 ml. Gated images demonstrate global hypokinesis with a decreased post-stress LV EF estimated at 35%, decreased in comparison to prior study which was 49%.. Attenuation correction CT images demonstrate no gross anatomic abnormalities. IMPRESSION: 1. No evidence of inducible myocardial ischemia. 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 Moderate dilatation of left ventricle. 3. Global hypokinesis with a decreased post-stress LV EF estimated at 35%, was 49% previously. I personally reviewed the images/study and I agree with the findings as stated. This study was interpreted at [facility], [place], [place]. MACRO: None Signed by: Cielo Tony 06/09/2024 11:44 AM Dictation workstation: [id number] [facility] Work Phone: Radiology Study observation (narrative) [facility] Work Phone: NM Heart Perfusion W stress and W radionuclide IVOrdered By: Cielo Tony on 06-09-2024 [facility] Work Phone: NUCLEAR STRESS TESTon 2023 NUCLEAR STRESS TEST Interpreted By: Cielo Tony, STUDY: NUCLEAR STRESS TEST; 06/09/2024 11:31 am INDICATION: Signs/Symptoms:Shortne ss of breath, Fatigue. COMPARISON: Prior cardiac perfusion study on 07/22/2020 ACCESSION NUMBER(S): [id number] ORDERING CLINICIAN: ARAVIND JIMENEZ TECHNIQUE: DIVISION OF NUCLEAR MEDICINE PHARMACOLOGIC STRESS MYOCARDIAL PERFUSION SCAN, ONE DAY PROTOCOL The patient received an intravenous dose of 11.9 mCi of Tc-99m Myoview and resting emission tomographic (SPECT) images of the myocardium were acquired. The patient then received an intravenous infusion of 0.4mg regadenoson (Lexiscan) followed by an additional dose of 33.2 mCi of Tc-99m Myoview. Stress phase SPECT images of the myocardium were then acquired. These included ECG-gated images to assess and quantify ventricular function. A low-dose, nondiagnostic regional CT was utilized for attenuation correction purposes. FINDINGS: Predominantly fixed medium-sized moderate to severe perfusion defects involving apex, extends to apical anterior/inferior/sept al as well as lateral webster, likely representing prior infarction. Otherwise, both stress and rest studies demonstrate grossly normal perfusion throughout the remaining left ventricle. Moderate dilatation of left ventricle with EDV of 156 ml. Gated images demonstrate global hypokinesis with a decreased post-stress LV EF estimated at 35%, decreased in comparison to prior study which was 49%.. Attenuation correction CT images demonstrate no gross anatomic abnormalities. IMPRESSION: 1. No evidence of inducible myocardial ischemia. 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 Moderate dilatation of left ventricle. 3. Global hypokinesis with a decreased post-stress LV EF estimated at 35%, was 49% previously. I personally reviewed the images/study and I agree with the findings as stated. This study was interpreted at [facility], [place], [place]. MACRO: None Signed by: Cielo Tony 06/09/2024 11:44 AM Dictation workstation: [id number] [facility] No Panel Informationon 06-09 [place] [address] [phone], Nuclear Pharmacologic Stress Test Patient Name: ROCIO SANDOVAL Ordering Provider: [id number] ARAVIND JIMENEZ Study Date: 06/09/2024 Reading Physician: [id number] Morgan MD MRN/PID: [id number] Supervising Physician: [id number] Morgan MD Fellow: Date of /Age: 2 1945 / 78 years Fellow: Gender: M Nurse: N/A Admit Date: 06/09/2024 Slip Dumper: Admission Status: Outpatient Investigator Fraud: N/A Height: 187.96 cm Technologist: Yara Meadows Weight: 105.69 kg Additional Staff: BSA: 2.32 m2 BMI: 29.92 kg/m2 Patient Location: [facility] Stress Lab Study Type: CARDIOLOGY INTERPRETATION OF NUCLEAR STRESS Diagnosis/ICD: Other forms of dyspnea-R06.09 Indication: Dyspnea on Exertion CPT Codes: Stress Test Interpretation-08275; Stress Test Supervision-[id number] Falls Risk: Low: Patient has low risk for sustaining a fall; environmental safety interventions in place. Study Details: Correct procedure and correct patient verified verbally and with ID Band checked. Patient History: Family history of coronary artery disease, hypertension, coronary artery disease, hyperlipidemia and PAF,HERNANDEZ, INTERNAL PACEMAKER IN 05/2022, PAD. Allergies: None. Smoker: Never. Diabetes: Yes, managed with Insulin. BMI: Overweight 25 - 30. Medications: ATORVASTATIN, FUROSEMIDE, METIPROLOL,XARELTO,AMI ODARONE, METFORMIN, JARDIANCE. The patient did not take medications as prescribed. Patient Performance: Patient received a total of 0.4 mg of Regadenoson at 10:04:25 AM. Patient received a total of 33.2 mCi of Myoview at 10:05:10 AM. The patient did not exercise during infusion. The peak heart rate achieved was 75 bpm, which was 54 % of the age predicted target heart rate of 139 bpm. The resting blood pressure was 134/64 mmHg with a heart rate of 65 bpm. The patient developed no symptoms during the stress exam. The blood pressure response was normal. The test was terminated due to: completed lab protocol. Stress Stage Data: + +--+- -----+-------+ HR Sys BP Wei BP + +--+- -----+-------+ Baseline Resting 65 134 64 + +--+- -----+-------+ Stage 1/2 64 + +--+- -----+-------+ Stage I 68 121 74 + +--+- -----+-------+ Recovery ECG: The heart rate recovery was normal. + +--+----- -+-------+ HR Sys BP Wei BP + +--+----- -+-------+ Recovery I 67 + +--+----- -+-------+ Recovery II 64 126 70 + +--+----- -+-------+ Recovery III 64 + +--+----- -+-------+ Recovery IV 67 140 69 + +--+----- -+-------+ Summary: 1. Baseline EKG showing sinus rhythm intercalated with pacemaker rhythm and no resting ST-T segment changes. 2. With regadenoson infusion, there are no ST-T segment changes suggestive of ischemia. No sustained ventricular arrhythmias are seen. 3. Regadenoson stress EKG is non-diagnostic for ischemia due to underlying pacemaker rhythm. 4. Adequate level of stress achieved. 5. Nuclear image results are reported separately. [id number] Ernesto Morgan MD Electronically signed on 06/09/2024 at 2:59:25 PM Final Ernesto Honeycutt MD - 06/09/2024 [place] [address] [phone], Nuclear Pharmacologic Stress Test Patient Name: ROCIO Allred JAIME Ordering Provider: [id number] ARAVIND JIMENEZ Study Date: 06/09/2024 Reading Physician: [id number] Morgan MD MRN/PID: [id number] Supervising Physician: Asha Morgan MD Fellow: Date of /Age: 2 1945 / 78 years Fellow: Gender: M Nurse: N/A Admit Date: 06/09/2024 Slip Dumper: Admission Status: Outpatient Investigator Fraud: N/A Height: 187.96 cm Technologist: Yara Meadows Weight: 105.69 kg Additional Staff: BSA: 2.32 m2 BMI: 29.92 kg/m2 Patient Location: [facility] Stress Lab Study Type: CARDIOLOGY INTERPRETATION OF NUCLEAR STRESS Diagnosis/ICD: Other forms of dyspnea-R06.09 Indication: Dyspnea on Exertion CPT Codes: Stress Test Interpretation-60469; Stress Test Supervision-[id number] Falls Risk: Low: Patient has low risk for sustaining a fall; environmental safety interventions in place. Study Details: Correct procedure and correct patient verified verbally and with ID Band checked. Patient History: Family history of coronary artery disease, hypertension, coronary artery disease, hyperlipidemia and PAF,HERNANDEZ, INTERNAL PACEMAKER IN 05/2022, PAD. Allergies: None. Smoker: Never. Diabetes: Yes, managed with Insulin. BMI: Overweight 25 - 30. Medications: ATORVASTATIN, FUROSEMIDE, METIPROLOL,XARELTO,AMI ODARONE, METFORMIN, JARDIANCE. The patient did not take medications as prescribed. Patient Performance: Patient received a total of 0.4 mg of Regadenoson at 10:04:25 AM. Patient received a total of 33.2 mCi of Myoview at 10:05:10 AM. The patient did not exercise during infusion. The peak heart rate achieved was 75 bpm, which was 54 % of the age predicted target heart rate of 139 bpm. The resting blood pressure was 134/64 mmHg with a heart rate of 65 bpm. The patient developed no symptoms during the stress exam. The blood pressure response was normal. The test was terminated due to: completed lab protocol. Stress Stage Data: + +--+- -----+-------+ HR Sys BP Wei BP + +--+- -----+-------+ Baseline Resting 65 134 64 + +--+- -----+-------+ Stage 1/2 64 + +--+- -----+-------+ Stage I 68 121 74 + +--+- -----+-------+ Recovery ECG: The heart rate recovery was normal. + +--+----- -+-------+ HR Sys BP Wei BP + +--+----- -+-------+ Recovery I 67 + +--+----- -+-------+ Recovery II 64 126 70 + +--+----- -+-------+ Recovery III 64 + +--+----- -+-------+ Recovery IV 67 140 69 + +--+----- -+-------+ Summary: 1. Baseline EKG showing sinus rhythm intercalated with pacemaker rhythm and no resting ST-T segment changes. 2. With regadenoson infusion, there are no ST-T segment changes suggestive of ischemia. No sustained ventricular arrhythmias are seen. 3. Regadenoson stress EKG is non-diagnostic for ischemia due to underlying pacemaker rhythm. 4. Adequate level of stress achieved. 5. Nuclear image results are reported separately. [id number] Ernesto Morgan MD Electronically signed on 06/09/2024 at 2:59:25 PM Final [facility] Work Phone: No Panel InformationOrdered By: Ernesto Morgan on 06-09-2024 [facility] Work Phone: FL PAIN MANAGEMENTon 024 FL PAIN MANAGEMENT These images are not reportable by radiology and will not be interpreted by Radiologists. Normal [facility] No Panel Informationon 05-28 [facility] Work Phone: These images are not reportable by radiology and will not be interpreted by Radiologists. [facility] Work Phone: Radiology Study observation (narrative) [facility] Work Phone: ECG 12 lead (Clinic Performe d)on 05-27-2024 Atrial fibrillation with ventricular paced rhythm 64 bpm QRS 168 QT 500 QTc 515 *Please refer to scanned ECG for final report* [facility] Work Phone: XR FOOT RIGHT 3+ VIEWS (SADAF [place])on 05-26-2024 XR FOOT RIGHT 3+ VIEWS (STANDARD) No appreciable fractures or dislocations noted to the fifth digit Sclerosis noted to the subtalar joint Dictated by: YULIET FLOYD on SunJun 15, 2024 11:33:44 PM EST Transcribed by: YULIET FLOYD on SunJun 15, 2024 11:33:44 PM EST Finalized by: YULIET FLOYD on SunJun 15, 2024 11:33:44 PM EST Normal [facility] Comment on above: Order Comment: Injur y/Trauma or Illness?:Injury/Trauma How long have you had these symptoms (acute/chronic)?:Acute Reason for exam?:pain History of cancer?:no Surgeries, chemotherapy, or radiation?:no Type of Exam?:Initial Mechanism of injury?:stubbed toe Magnesiumon 05-13-2024 Magnesium [Mass/Vol] 2.16 mg/dL Normal 1.60-2.40 [facility] Comment on above: Performed By: #### 1 9123-9 #### EMANUEL FLOR ([id number]) [facility] ([facility]) [address] [place] [address] Thyrotropinon 05-13-2024 TSH Qn 0.03 m[IU]/L Low 0.44-3.98 [facility] Comment on above: Order Comment: TSH t esting is performed using different testing methodology at [facility] than at [facility]. Direct result comparisons should only be made within the same method. Performed By: #### 3 016-3 #### EMANUEL FLOR ([id number]) [facility] ([facility]) [address] [place] [address] Performed By: #### T HYDS #### EMANUEL FLOR ([id number]) [facility] ([facility]) [address] [place] [address] Thyroxine.freeon 05-13-2024 Free T4 [Mass/Vol] 1.67 ng/dL High 0.61-1.12 [facility] Comment on above: Order Comment: Thyro xine Free testing is performed using different testing methodology at [facility] than at other [facility]. Direct result comparisons should only be made within the same method. Biotin can cause falsely elevated free T4 results. Patients taking a Biotin dose of up to 10 mg/day should refrain from taking Biotin for 24 hours before sample collection. Patient taking a Biotin dose of >10 mg/day should consult with their physician or the laboratory before the blood draw. Performed By: #### 3 024-7 #### EMANUEL FLOR ([id number]) [facility] ([facility]) [address] [place] [address] XR CHEST 2 VIEWSon XR CHEST 2 VIEWS Interpreted By: Terrance Ruth, STUDY: XR CHEST 2 VIEWS; 05/13/2024 9:47 am INDICATION: Signs/Symptoms:amiodar one protocol. ,Z79.899 Other residential (current) drug therapy COMPARISON: 03/16/2023 ACCESSION NUMBER(S): [id number] ORDERING CLINICIAN: KATHY TREVIÑO FINDINGS: Choose 2 Left subclavian dual lead pacemaker. CARDIOMEDIASTINAL SILHOUETTE: Mild cardiomediastinal enlargement. LUNGS: Coarse interstitial markings with peripheral interstitial opacities again noted. Left lower lung granuloma. Otherwise, no focal consolidation, pleural effusion, or pneumothorax. ABDOMEN: No remarkable upper abdominal findings. BONES: No acute osseous changes. IMPRESSION: 1. Chronic lung fibrotic changes without focal consolidation. MACRO: None Signed by: Terrance Ruth 05/15/2024 6:05 PM Dictation workstation: [id number] Normal [facility] C reactive proteinon 024 CRP [Mass/Vol] 0.34 mg/dL Normal <1.00 [facility] Comment on above: Performed By: #### 4 537-7 #### EMANUEL FLOR ([id number]) [facility] ([facility]) [address] [place] [address] CBC W Auto Differential pane l (Bld)on 04-25-2024 Basophils (Bld) [#/Vol] 0.03 x10*3/uL Normal 0.00-0.10 [facility] Comment on above: Performed By: #### 5 7021-8 #### EMANUEL FLOR ([id number]) [facility] ([facility]) [address] [place] [address] 47618 Basophils/100 WBC (Bld) 0.4 % Normal 0.0-2.0 [facility] Comment on above: Performed By: #### 5 7021-8 #### EMANUEL FLOR ([id number]) [facility] ([facility]) [address] [place] [address] 78727 Eosinophils (Bld) [#/Vol] 0.30 x10*3/uL Normal 0.00-0.40 [facility] Comment on above: Performed By: #### 5 7021-8 #### EMANUEL FLOR ([id number]) [facility] ([facility]) [address] [place] [address] 90258 Eosinophils/100 WBC (Bld) 3.8 % Normal 0.0-6.0 [facility] Comment on above: Performed By: #### 5 7021-8 #### EMANUEL FLOR ([id number]) [facility] ([facility]) [address] [place] [address] 85844 Erythrocyte distribution width (RBC) [Ratio] 15.3 % High 11.5-14.5 [facility] Comment on above: Performed By: #### 5 7021-8 #### EMANUEL FLOR ([id number]) [facility] ([facility]) [address] [place] [address] 35806 Hematocrit (Bld) [Volume fraction] 42.0 % Normal 41.0-52.0 [facility] Comment on above: Performed By: #### 5 7021-8 #### EMANUEL FLOR ([id number]) [facility] ([facility]) [address] [place] [address] 52184 Hemoglobin (Bld) [Mass/Vol] 13.0 g/dL Low 13.5-17.5 [facility] Comment on above: Performed By: #### 5 7021-8 #### EMANUEL FLOR ([id number]) [facility] ([facility]) [address] [place] [address] 09640 Immature granulocytes (Bld) [#/Vol] 0.01 x10*3/uL Normal 0.00-0.50 [facility] Comment on above: Performed By: #### 5 7021-8 #### EMANUEL FLOR ([id number]) [facility] ([facility]) [address] [place] [address] 01580 Immature granulocytes/100 WBC (Bld) 0.1 % Normal 0.0-0.9 [facility] Comment on above: Result Comment: Kathy ture Granulocyte Count (IG) includes promyelocytes, myelocytes and metamyelocytes but does not include bands. Percent differential counts (%) should be interpreted in the context of the absolute cell counts (cells/UL). Performed By: #### 5 7021-8 #### EMANUEL FLOR ([id number]) [facility] ([facility]) [address] [place] [address] Lymphocytes (Bld) [#/Vol] 2.17 x10*3/uL Normal 0.80-3.00 [facility] Comment on above: Performed By: #### 5 7021-8 #### EMANUEL FLOR ([id number]) [facility] ([facility]) [address] [place] [address] 61044 Lymphocytes/100 WBC (Bld) 27.4 % Normal 13.0-44.0 [facility] Comment on above: Performed By: #### 5 7021-8 #### EMANUEL FLOR ([id number]) [facility] ([facility]) [address] [place] [address] 89402 MCH (RBC) [Entitic mass] 29.6 pg Normal 26.0-34.0 [facility] Comment on above: Performed By: #### 5 7021-8 #### EMANUEL FLOR ([id number]) [facility] ([facility]) [address] [place] [address] 25310 MCHC (RBC) [Mass/Vol] 31.0 g/dL Low 32.0-36.0 [facility] Comment on above: Performed By: #### 5 7021-8 #### EMANUEL FLOR ([id number]) [facility] ([facility]) [address] [place] [address] 28489 MCV (RBC) [Entitic vol] 96 fL Normal 80-100 [facility] Comment on above: Performed By: #### 5 7021-8 #### EMANUEL FLOR ([id number]) [facility] ([facility]) [address] [place] [address] 08805 Monocytes (Bld) [#/Vol] 0.50 x10*3/uL Normal 0.05-0.80 [facility] Comment on above: Performed By: #### 5 7021-8 #### EMANUEL FLOR ([id number]) [facility] ([facility]) [address] [place] [address] 01372 Monocytes/100 WBC (Bld) 6.3 % Normal 2.0-10.0 [facility] Comment on above: Performed By: #### 5 7021-8 #### EMANUEL FLOR ([id number]) [facility] ([facility]) [address] [place] [address] 19710 Neutrophils (Bld) [#/Vol] 4.91 x10*3/uL Normal 1.60-5.50 [facility] Comment on above: Result Comment: Perc ent differential counts (%) should be interpreted in the context of the absolute cell counts (cells/uL). Performed By: #### 5 7021-8 #### EMANUEL FLOR ([id number]) [facility] ([facility]) [address] [place] [address] 46046 Neutrophils/100 WBC (Bld) 62.0 % Normal 40.0-80.0 [facility] Comment on above: Performed By: #### 5 7021-8 #### EMANUEL FLOR ([id number]) [facility] ([facility]) [address] [place] [address] 23205 Nucleated RBC/100 WBC (Bld) [Ratio] 0.0 /100 WBCs Normal 0.0-0.0 [facility] Comment on above: Performed By: #### 5 7021-8 #### EMANUEL FLOR ([id number]) [facility] ([facility]) [address] [place] [address] 10342 Platelets (Bld) [#/Vol] 309 x10*3/uL Normal 150-450 [facility] Comment on above: Performed By: #### 5 7021-8 #### EMANUEL FLOR ([id number]) [facility] ([facility]) [address] [place] [address] 67492 RBC (Bld) [#/Vol] 4.39 x10*6/uL Low 4.50-5.90 [facility] Comment on above: Performed By: #### 5 7021-8 #### EMANUEL FLOR ([id number]) [facility] ([facility]) [address] [place] [address] 77451 WBC (Bld) [#/Vol] 7.9 x10*3/uL Normal 4.4-11.3 [facility] Comment on above: Performed By: #### 5 7021-8 #### EMANUEL FLOR ([id number]) [facility] ([facility]) [address] [place] [address] 76816 Cholesterol in LDL Direct as say [Mass/Vol]on 04-25-2024 Cholesterol in LDL [Mass/Vol] 45 mg/dL Normal 0-129 [facility] Comment on above: Order Comment: Worden nagi levels of LDL cholesterol are recognized as a chapin factor in the development of atherosclerosis and CHD. The direct LDL cholesterol test can be used to assess cardiovascular risk and monitor therapy as a follow up toa lipid profile when triglycerides are significantly elevated. Performed By: #### 4 537-7 #### EMANUEL FLOR ([id number]) [facility] ([facility]) [address] [place], [place] [address] Comprehensive metabolic 2000 panelon 04-25-2024 Albumin BCP dye [Mass/Vol] 3.9 g/dL Normal 3.4-5.0 [facility] Comment on above: Performed By: #### 4 537-7 #### EMANUEL FLOR ([id number]) [facility] ([facility]) [address] [place] [address] 07852 ALP [Catalytic activity/Vol] 75 U/L Normal 33-136 [facility] Comment on above: Performed By: #### 4 537-7 #### EMANUEL FLOR ([id number]) [facility] ([facility]) [address] [place] [address] ALT With P-5'-P [Catalytic activity/Vol] 12 U/L Normal 10-52 [facility] Comment on above: Result Comment: Lien ents treated with Sulfasalazine may generate falsely decreased results for ALT. Performed By: #### 4 537-7 #### EMANUEL FLOR ([id number]) [facility] ([facility]) [address] [place] [address] Anion gap [Moles/Vol] 10 mmol/L Normal 10-20 [facility] Comment on above: Performed By: #### 4 537-7 #### EMANUEL FLOR ([id number]) [facility] ([facility]) [address] [place] [address] 86507 AST With P-5'-P [Catalytic activity/Vol] 13 U/L Normal 9-39 [facility] Comment on above: Performed By: #### 4 537-7 #### EMANUEL FLOR ([id number]) [facility] ([facility]) [address] [place] [address] Bilirubin [Mass/Vol] 0.7 mg/dL Normal 0.0-1.2 [facility] Comment on above: Performed By: #### 4 537-7 #### EMANUEL FLOR ([id number]) [facility] ([facility]) [address] [place] [address] Calcium [Mass/Vol] 8.8 mg/dL Normal 8.6-10.3 [facility] Comment on above: Performed By: #### 4 537-7 #### EMANUEL FLOR ([id number]) [facility] ([facility]) [address] [place] [address] Chloride [Moles/Vol] 106 mmol/L Normal 98-107 [facility] Comment on above: Performed By: #### 4 537-7 #### EMANUEL FLOR ([id number]) [facility] ([facility]) [address] [place] [address] CO2 [Moles/Vol] 29 mmol/L Normal 21-32 [facility] Comment on above: Performed By: #### 4 537-7 #### EMANULE FLOR ([id number]) [facility] ([facility]) [address] [place] [address] 84471 Creatinine [Mass/Vol] 1.02 mg/dL Normal 0.50-1.30 [facility] Comment on above: Performed By: #### 4 537-7 #### EMANUEL FLOR ([id number]) [facility] ([facility]) [address] [place] [address] 05125 Glomerular filtration rate/1.73 sq M.predicted 74 mL/min/1.73m*2 Normal >60 [facility] Comment on above: Result Comment: Calc ulations of estimated GFR are performed using the 2020 CKD-EPI Study Refit equation without the race variable for the IDMS-Traceable creatinine methods. https://jasn.asnjournals.org/content/early//ASN.07789 88431 Performed By: #### 4 537-7 #### EMANUEL FLOR ([id number]) [facility] ([facility]) [address] [place] [address] 89446 Glucose [Mass/Vol] 107 mg/dL High 74-99 [facility] Comment on above: Performed By: #### 4 537-7 #### EMANUEL FLOR ([id number]) [facility] ([facility]) [address] [place] [address] 58194 Potassium [Moles/Vol] 4.4 mmol/L Normal 3.5-5.3 [facility] Comment on above: Performed By: #### 4 537-7 #### EMANUEL FLOR ([id number]) [facility] ([facility]) [address] [place] [address] 12563 Protein [Mass/Vol] 6.0 g/dL Low 6.4-8.2 [facility] Comment on above: Performed By: #### 4 537-7 #### EMANUEL FLOR ([id number]) [facility] ([facility]) [address] [place] [address] Sodium [Moles/Vol] 141 mmol/L Normal 136-145 [facility] Comment on above: Performed By: #### 4 537-7 #### EMANUEL FLOR ([id number]) [facility] ([facility]) [address] [place], [place] [address] Urea nitrogen [Mass/Vol] 14 mg/dL Normal 6-23 [facility] Comment on above: Performed By: #### 4 537-7 #### EMANUEL FLOR ([id number]) [facility] ([facility]) [address] [place], [place] [address] ESR Westergren method (Bld) [Velocity]on 04-25-2024 ESR (Bld) [Velocity] 29 mm/h High 0-20 [facility] Comment on above: Performed By: #### 4 537-7 #### EMANUEL FLOR ([id number]) [facility] ([facility]) [address] [place] [address] HbA1c (Bld) [Mass fraction]o n 04-25-2024 Average glucose Estimated from glycated hemoglobin (Bld) [Mass/Vol] 146 mg/dL Normal Not Established [facility] Comment on above: Order Comment: Diagn osis of Yymttuyh-DdqzalPhj-Wvqbupop: < or = 5.6%Increased risk for developing diabetes: 5.7-6.4%Diagnostic of diabetes: > or = 6.5% Performed By: #### 4 537-7 #### EMANUEL FLOR ([id number]) [facility] ([facility]) [address] [place], [place] [address] Hemoglobin A1c/Hemoglobin.to tati 04-25-2024 HbA1c (Bld) [Mass fraction] 6.7 % High See comment [facility] Comment on above: Order Comment: Diagn osis of Cjanwlpg-QfjdfgEsa-Mafpwyof: < or = 5.6%Increased risk for developing diabetes: 5.7-6.4%Diagnostic of diabetes: > or = 6.5% Performed By: #### 4 537-7 #### EMNAUEL FLOR ([id number]) [facility] ([facility]) [address] [place] [address] 39805 Prostate specific Agon 04-25 Prostate specific Ag [Mass/Vol] 3.24 ng/mL Normal <=4.00 [facility] Comment on above: Order Comment: The F DA requires that the method used for PSA assay be reported to the physician. Values obtained with different assay methods must not be used interchangeably. This test was performed at [facility] using the Mysterio PSA assay is a two-site immunoenzymatic sandwichassay. The assay is approved for measurement of prostate-specific antigen (PSA)in serum and may be used in conjunction with a digital rectal examination in men 50 years and older as an aid in detection of prostate cancer.6-Twxgd-pvmbmqvva inhibitors (e.g. Proscar, Finasteride, Avodart, Dutasteride and Shayy) for the treatment of BPH have been shown to lower PSA levels by an average of 50% after 6 months of treatment. Performed By: #### 4 537-7 #### EMANUEL FLOR ([id number]) [facility] ([facility]) [address] [place] [address] 24924 Testosterone Free/Testostero ne.total [Mass fraction]on 04-25-2024 Testosterone [Mass/Vol] 432 ng/dL Normal 250-1100 [facility] Comment on above: Result Comment: Men with clinically significant hypogonadal symptoms and testosterone values repeatedly in the range of the 200-300 ng/dL or less, may benefit from testosterone treatment after adequate risk and benefits counseling. For additional information, please refer to http://education.8D World.FuelMyBlog/faq/ TzsmyMeolgbgjqsixPDWRUGDZM168 (This link is being provided for informational/ educational purposes only.) This test was developed and its analytical performance characteristics have been determined by [employer] [place], [place]. It has not been cleared or approved by the U.S. Food and Drug Administration. This assay has been validated pursuant to the CLIA regulations and is used for clinical purposes. Performed By: #### 4 537-7 #### EMANUEL FLOR ([id number]) [facility] ([facility]) [address] [place] [address] 66629 Testosterone Free [Mass/Vol] 68.7 pg/mL Normal 30.0-135.0 [facility] Comment on above: Result Comment: This test was developed and its analytical performance characteristics have been determined by [employer] [place], [place]. It has not been cleared or approved by the U.S. Food and Drug Administration. This assay has been validated pursuant to the CLIA regulations and is used for clinical purposes. Performed By: #### 4 537-7 #### CASTELLANOS CHACHO ([id number]) [facility] ([facility]) [address] Heart Transthoracicon Aortic Valve Area by Continuity of Peak Velocity 1.55 cm2 [facility] Work Phone: Aortic Valve Area by Continuity of VTI 1.43 cm2 [facility] Work Phone: AV mn grad 5.0 mmHg [facility] Work Phone: AV pk grad 8.3 mmHg [facility] Work Phone: AV pk marin 1.44 m/s [facility] Work Phone: LA vol index A/L 39.1 ml/m2 [facility] Work Phone: LV A4C EF 39.2 [facility] Work Phone: LV Biplane EF 42 % [facility] Work Phone: LV EF 42 % [facility] Work Phone: LVIDd 5.90 cm [facility] Work Phone: LVOT diam 2.10 cm [facility] Work Phone: RV free wall pk S' 11.70 [facility] Work Phone: RVSP 34.4 mmHg [facility] Work Phone: Tricuspid annular plane systolic excursion 2.3 cm [facility] Work Phone: [place] [address] [phone], TRANSTHORACIC ECHOCARDIOGRAM REPORT Patient Name: ROCIO Pack Physician: Delma Stroud MD Study Date: 04/08/2024 Ordering Provider: Delma STROUD MRN/PID: [id number] Fellow: Nurse: Yaritza Tello RN Date of /Age: 2 1945 / 78 years Investigator Fraud: Trey Severino RDCS Gender: M Additional Staff: Height: 187.96 cm Admit Date: Weight: 105.24 kg Admission Status: Outpatient BSA / BMI: 2.31 m2 / 29.79 Department Location: [facility] Echo Lab kg/m2 Blood Pressure: 128 /72 mmHg Study Type: TRANSTHORACIC ECHO (TTE) COMPLETE Diagnosis/ICD: Unspecified systolic (congestive) heart failure (CHF)-I50.20 CPT Codes: Echo Complete w Full Doppler-78878 Study Detail: The following Echo studies were performed: 2D, M-Mode, Doppler and color flow. Definity used as a contrast agent for endocardial border definition and agitated saline used as a contrast agent for intraseptal flow evaluation. Total contrast used for this procedure was 2.00cc mL via IV push. PHYSICIAN INTERPRETATION: Left Ventricle: Left ventricular ejection fraction is mildly decreased, calculated by Pleitez's biplane at 42%. The patient is in atrial fibrillation which may influence the estimate of left ventricular function and transvalvular flows. There is global hypokinesis of the left ventricle with minor regional variations. The left ventricular cavity size is normal. Abnormal (paradoxical) septal motion, consistent with RV pacemaker. Left ventricular diastolic filling was indeterminate. Left Atrium: The left atrium is mildly dilated. A bubble study using agitated saline was performed. Bubble study is negative. Right Ventricle: The right ventricle is moderately enlarged. There is normal right ventricular global systolic function. A device is visualized in the right ventricle. Right Atrium: The right atrium is normal in size. Aortic Valve: The aortic valve is trileaflet. The aortic valve dimensionless index is 0.41. There is no evidence of aortic valve regurgitation. The peak instantaneous gradient of the aortic valve is 8.3 mmHg. The mean gradient of the aortic valve is 5.0 mmHg. Mitral Valve: The mitral valve is normal in structure. There is no evidence of mitral valve regurgitation. Tricuspid Valve: The tricuspid valve is structurally normal. There is mild tricuspid regurgitation. Pulmonic Valve: The pulmonic valve is structurally normal. There is no indication of pulmonic valve regurgitation. Pericardium: Small pericardial effusion localized near the left ventricle. Aorta: The aortic root is normal. Systemic Veins: The inferior vena cava appears dilated, with IVC inspiratory collapse less than 50%. CONCLUSIONS: 1. Left ventricular ejection fraction is mildly decreased, calculated by Pleitez's biplane at 42%. 2. There is global hypokinesis of the left ventricle with minor regional variations. 3. Left ventricular diastolic filling was indeterminate. 4. Abnormal septal motion consistent with RV pacemaker. 5. There is normal right ventricular global systolic function. 6. Moderately enlarged right ventricle. 7. Compared to prior echocardiogram dated 06/02/2021: Ejection fraction has declined. 8. The patient is in atrial fibrillation which may influence the estimate of left ventricular function and transvalvular flows. QUANTITATIVE DATA SUMMARY: 2D MEASUREMENTS: Normal Ranges: Ao Root d: 3.60 cm (2.0-3.7cm) LAs: 4.50 cm (2.7-4.0cm) IVSd: 1.10 cm (0.6-1.1cm) LVPWd: 1.05 cm (0.6-1.1cm) LVIDd: 5.90 cm (3.9-5.9cm) LVIDs: 3.64 cm LV Mass Index: 113.9 g/m2 LV % FS 38.3 % LA VOLUME: Normal Ranges: LA Vol A4C: 97.7 ml (22+/-6mL/m2) LA Vol A2C: 76.0 ml LA Vol BP: 90.4 ml LA Vol Index A4C: 42.2ml/m2 LA Vol Index A2C: 32.9 ml/m2 LA Vol Index BP: 39.1 ml/m2 LA Area A4C: 28.9 cm2 LA Area A2C: 24.3 cm2 LA Major Barnhart A4C: 7.3 cm LA Major Barnhart A2C: 6.6 cm LA Volume Index: 41.7 ml/m2 LA Vol A4C: 96.3 ml LA Vol A2C: 74.2 ml LA Vol Index BSA: 36.8 ml/m2 LV SYSTOLIC FUNCTION BY 2D PLANIMETRY (MOD): Normal Ranges: EF-A4C View: 39 % (>=55%) EF-A2C View: 46 % EF-Biplane: 42 % LV EF Reported: 42 % AORTIC VALVE: Normal Ranges: AoV Vmax: (more content not included)... Joel Brar MD - 04/08/2024 [place] [address] [phone], TRANSTHORACIC ECHOCARDIOGRAM REPORT Patient Name: ROCIO SANDOVAL Reading Physician: Delma Stroud MD Study Date: 04/08/2024 Ordering Provider: Delma STROUD MRN/PID: [id number] Fellow: Nurse: Yaritza Tello RN Date of /Age: 2 1945 / 78 years Investigator Fraud: Trey Severino FERNANDO Gender: M Additional Staff: Height: 187.96 cm Admit Date: Weight: 105.24 kg Admission Status: Outpatient BSA / BMI: 2.31 m2 / 29.79 Department Location: [facility] Echo Lab kg/m2 Blood Pressure: 128 /72 mmHg Study Type: TRANSTHORACIC ECHO (TTE) COMPLETE Diagnosis/ICD: Unspecified systolic (congestive) heart failure (CHF)-I50.20 CPT Codes: Echo Complete w Full Doppler-[id number] Study Detail: The following Echo studies were performed: 2D, M-Mode, Doppler and color flow. Definity used as a contrast agent for endocardial border definition and agitated saline used as a contrast agent for intraseptal flow evaluation. Total contrast used for this procedure was 2.00cc mL via IV push. PHYSICIAN INTERPRETATION: Left Ventricle: Left ventricular ejection fraction is mildly decreased, calculated by Pleitez's biplane at 42%. The patient is in atrial fibrillation which may influence the estimate of left ventricular function and transvalvular flows. There is global hypokinesis of the left ventricle with minor regional variations. The left ventricular cavity size is normal. Abnormal (paradoxical) septal motion, consistent with RV pacemaker. Left ventricular diastolic filling was indeterminate. Left Atrium: The left atrium is mildly dilated. A bubble study using agitated saline was performed. Bubble study is negative. Right Ventricle: The right ventricle is moderately enlarged. There is normal right ventricular global systolic function. A device is visualized in the right ventricle. Right Atrium: The right atrium is normal in size. Aortic Valve: The aortic valve is trileaflet. The aortic valve dimensionless index is 0.41. There is no evidence of aortic valve regurgitation. The peak instantaneous gradient of the aortic valve is 8.3 mmHg. The mean gradient of the aortic valve is 5.0 mmHg. Mitral Valve: The mitral valve is normal in structure. There is no evidence of mitral valve regurgitation. Tricuspid Valve: The tricuspid valve is structurally normal. There is mild tricuspid regurgitation. Pulmonic Valve: The pulmonic valve is structurally normal. There is no indication of pulmonic valve regurgitation. Pericardium: Small pericardial effusion localized near the left ventricle. Aorta: The aortic root is normal. Systemic Veins: The inferior vena cava appears dilated, with IVC inspiratory collapse less than 50%. CONCLUSIONS: 1. Left ventricular ejection fraction is mildly decreased, calculated by Pleitez's biplane at 42%. 2. There is global hypokinesis of the left ventricle with minor regional variations. 3. Left ventricular diastolic filling was indeterminate. 4. Abnormal septal motion consistent with RV pacemaker. 5. There is normal right ventricular global systolic function. 6. Moderately enlarged right ventricle. 7. Compared to prior echocardiogram dated 06/02/2021: Ejection fraction has declined. 8. The patient is in atrial fibrillation which may influence the estimate of left ventricular function and transvalvular flows. QUANTITATIVE DATA SUMMARY: 2D MEASUREMENTS: Normal Ranges: Ao Root d: 3.60 cm (2.0-3.7cm) LAs: 4.50 cm (2.7-4.0cm) IVSd: 1.10 cm (0.6-1.1cm) LVPWd: 1.05 cm (0.6-1.1cm) LVIDd: 5.90 cm (3.9-5.9cm) LVIDs: 3.64 cm LV Mass Index: 113.9 g/m2 LV % FS 38.3 % LA VOLUME: Normal Ranges: LA Vol A4C: 97.7 ml (22+/-6mL/m2) LA Vol A2C: 76.0 ml LA Vol BP: 90.4 ml LA Vol Index A4C: 42.2ml/m2 LA Vol Index A2C: 32.9 ml/m2 LA Vol Index BP: 39.1 ml/m2 LA Area A4C: 28.9 cm2 LA Area A2C: 24.3 cm2 LA Major Barnhart A4C: 7.3 cm LA Major Barnhart A2C: 6.6 cm LA Volume Index: 41.7 ml/m2 LA Vol A4C: 96.3 ml LA Vol A2C: 74.2 ml LA Vol Index BSA: 36.8 ml/m2 LV SYSTOLIC FUNCTION BY 2D PLANIMETRY (MOD): Normal Ranges: EF-A4C View: 39 % (>=55%) EF-A2C View: 46 % EF-Biplane: 42 % LV EF Reported: 42 % AORTIC VALVE: Normal Ranges: AoV Vmax: 1.44 m/s (<=1.7m/s) AoV Peak P.3 mmHg (<20mmHg) AoV Mean P.0 mmHg (1.7-11.5mmHg) LVOT Max Marin: 0.64 m/s (<=1.1m/s) AoV VTI: 33.90 cm (18-25cm) LVOT VTI: 14.00 cm LVOT Diameter: 2.10 cm (1.8-2.4cm) AoV Area, VTI: 1.43 cm2 (2.5-5.5cm2) AoV Area,Vmax: 1.55 cm2 (2.5-4.5cm2) AoV Dimensionless Index: 0.41 RIGHT VENTRICLE: RV Basal 5.19 cm RV Mid 3.66 cm RV Major 9.2 cm TAPSE: 23.1 mm RV s' 0.12 m/s TRICUSPID VALVE/RVSP: Normal Ranges: Peak TR Velocity: 2.80 m/s RV Syst Pressure: 34 mmHg ( (more content not included)... [facility] Work Phone: [facility] Work Phone: Epidural Steroid Injectionon 03-28-2024 [facility] Work Phone: Radiology Study observation (narrative) [facility] Work Phone: FL pain managementon 03-28-2 024 These images are not reportable by radiology and will not be interpreted by Radiologists. [facility] Work Phone: ECG 12 lead (Clinic Performe d)on 03-13-2024 Paced rhythm CPACS [facility] Work Phone: CBC W Auto Differential pane l (Bld)on 01-25-2024 Basophils (Bld) [#/Vol] 0.04 x10*3/uL Normal 0.00-0.10 [facility] Comment on above: Performed By: #### 5 7021-8 #### EMANUEL FLOR ([id number]) [facility] ([facility]) [address] [place] [address] 11874 Basophils/100 WBC (Bld) 0.5 % Normal 0.0-2.0 [facility] Comment on above: Performed By: #### 5 7021-8 #### EMANUEL FLOR ([id number]) [facility] ([facility]) [address] [place] [address] 01436 Eosinophils (Bld) [#/Vol] 0.31 x10*3/uL Normal 0.00-0.40 [facility] Comment on above: Performed By: #### 5 7021-8 #### EMANUEL FLOR ([id number]) [facility] ([facility]) [address] [place] [address] 70504 Eosinophils/100 WBC (Bld) 4.2 % Normal 0.0-6.0 [facility] Comment on above: Performed By: #### 5 7021-8 #### EMANUEL FLOR ([id number]) [facility] ([facility]) [address] [place] [address] 62645 Erythrocyte distribution width (RBC) [Ratio] 14.7 % High 11.5-14.5 [facility] Comment on above: Performed By: #### 5 7021-8 #### EMANUEL FLOR ([id number]) [facility] ([facility]) [address] [place] [address] 50970 Hematocrit (Bld) [Volume fraction] 41.2 % Normal 41.0-52.0 [facility] Comment on above: Performed By: #### 5 7021-8 #### EMANUEL FLOR ([id number]) [facility] ([facility]) [address] [place] [address] 74691 Hemoglobin (Bld) [Mass/Vol] 12.7 g/dL Low 13.5-17.5 [facility] Comment on above: Performed By: #### 5 7021-8 #### EMANUEL FLOR ([id number]) [facility] ([facility]) [address] [place] [address] 24931 Immature granulocytes (Bld) [#/Vol] 0.01 x10*3/uL Normal 0.00-0.50 [facility] Comment on above: Performed By: #### 5 7021-8 #### EMANUEL FLOR ([id number]) [facility] ([facility]) [address] [place] [address] 36787 Immature granulocytes/100 WBC (Bld) 0.1 % Normal 0.0-0.9 [facility] Comment on above: Result Comment: Kathy ture Granulocyte Count (IG) includes promyelocytes, myelocytes and metamyelocytes but does not include bands. Percent differential counts (%) should be interpreted in the context of the absolute cell counts (cells/UL). Performed By: #### 5 7021-8 #### EMANUEL FLOR ([id number]) [facility] ([facility]) [address] [place] [address] 94783 Lymphocytes (Bld) [#/Vol] 2.29 x10*3/uL Normal 0.80-3.00 [facility] Comment on above: Performed By: #### 5 7021-8 #### EMANUEL FLOR ([id number]) [facility] ([facility]) [address] [place] [address] 41428 Lymphocytes/100 WBC (Bld) 30.8 % Normal 13.0-44.0 [facility] Comment on above: Performed By: #### 5 7021-8 #### EMANUEL FLOR ([id number]) [facility] ([facility]) [address] [place] [address] 08751 MCH (RBC) [Entitic mass] 29.5 pg Normal 26.0-34.0 [facility] Comment on above: Performed By: #### 5 7021-8 #### EMANUEL FLOR ([id number]) [facility] ([facility]) [address] [place] [address] 37070 MCHC (RBC) [Mass/Vol] 30.8 g/dL Low 32.0-36.0 [facility] Comment on above: Performed By: #### 5 7021-8 #### EMANUEL FLOR ([id number]) [facility] ([facility]) [address] [place] [address] 58048 MCV (RBC) [Entitic vol] 96 fL Normal 80-100 [facility] Comment on above: Performed By: #### 5 7021-8 #### EMANUEL FLOR ([id number]) [facility] ([facility]) [address] [place] [address] 12086 Monocytes (Bld) [#/Vol] 0.56 x10*3/uL Normal 0.05-0.80 [facility] Comment on above: Performed By: #### 5 7021-8 #### EMANUEL FLOR ([id number]) [facility] ([facility]) [address] [place] [address] 41383 Monocytes/100 WBC (Bld) 7.5 % Normal 2.0-10.0 [facility] Comment on above: Performed By: #### 5 7021-8 #### EMANUEL FLOR ([id number]) [facility] ([facility]) [address] [place] [address] 32480 Neutrophils (Bld) [#/Vol] 4.23 x10*3/uL Normal 1.60-5.50 [facility] Comment on above: Result Comment: Perc ent differential counts (%) should be interpreted in the context of the absolute cell counts (cells/uL). Performed By: #### 5 7021-8 #### EMANUEL FLOR ([id number]) [facility] ([facility]) [address] [place] [address] 82879 Neutrophils/100 WBC (Bld) 56.9 % Normal 40.0-80.0 [facility] Comment on above: Performed By: #### 5 7021-8 #### EMANUEL FLOR ([id number]) [facility] ([facility]) [address] [place] [address] 41630 Nucleated RBC/100 WBC (Bld) [Ratio] 0.0 /100 WBCs Normal 0.0-0.0 [facility] Comment on above: Performed By: #### 5 7021-8 #### EMANUEL FLOR ([id number]) [facility] ([facility]) [address] [place] [address] 65228 Platelets (Bld) [#/Vol] 278 x10*3/uL Normal 150-450 [facility] Comment on above: Performed By: #### 5 7021-8 #### EMANUEL FLOR ([id number]) [facility] ([facility]) [address] [place] [address] 22998 RBC (Bld) [#/Vol] 4.31 x10*6/uL Low 4.50-5.90 [facility] Comment on above: Performed By: #### 5 7021-8 #### EMANUEL FLOR ([id number]) [facility] ([facility]) [address] [place] [address] 94382 WBC (Bld) [#/Vol] 7.4 x10*3/uL Normal 4.4-11.3 [facility] Comment on above: Performed By: #### 5 7021-8 #### EMANUEL FLOR ([id number]) [facility] ([facility]) [address] [place], [place] [id number] Comprehensive metabolic 2000 panelon 01-25-2024 Albumin BCP dye [Mass/Vol] 4.0 g/dL Normal 3.4-5.0 [facility] Comment on above: Performed By: #### 2 4323-8 #### EMANUEL FLOR ([id number]) [facility] ([facility]) [address] [place] [address] 50512 ALP [Catalytic activity/Vol] 73 U/L Normal 33-136 [facility] Comment on above: Performed By: #### 2 4323-8 #### EMANUEL FLOR ([id number]) [facility] ([facility]) [address] [place] [address] ALT With P-5'-P [Catalytic activity/Vol] 9 U/L Low 10-52 [facility] Comment on above: Result Comment: Lien ents treated with Sulfasalazine may generate falsely decreased results for ALT. Performed By: #### 2 4323-8 #### EMANUEL FLOR ([id number]) [facility] ([facility]) [address] [place] [address] Anion gap [Moles/Vol] 14 mmol/L Normal 10-20 [facility] Comment on above: Performed By: #### 2 4323-8 #### EMANUEL FLOR ([id number]) [facility] ([facility]) [address] [place] [address] 25371 AST With P-5'-P [Catalytic activity/Vol] 13 U/L Normal 9-39 [facility] Comment on above: Performed By: #### 2 4323-8 #### EMANUEL FLOR ([id number]) [facility] ([facility]) [address] [place] [address] Bilirubin [Mass/Vol] 0.6 mg/dL Normal 0.0-1.2 [facility] Comment on above: Performed By: #### 2 4323-8 #### EMANUEL FLOR ([id number]) [facility] ([facility]) [address] [place] [address] Calcium [Mass/Vol] 8.7 mg/dL Normal 8.6-10.3 [facility] Comment on above: Performed By: #### 2 4323-8 #### EMANUEL FLOR ([id number]) [facility] ([facility]) [address] [place] [address] Chloride [Moles/Vol] 106 mmol/L Normal 98-107 [facility] Comment on above: Performed By: #### 2 4323-8 #### EMANUEL FLOR ([id number]) [facility] ([facility]) [address] [place] [address] CO2 [Moles/Vol] 25 mmol/L Normal 21-32 [facility] Comment on above: Performed By: #### 2 4323-8 #### EMANUEL FLOR ([id number]) [facility] ([facility]) [address] [place] [address] 64011 Creatinine [Mass/Vol] 0.97 mg/dL Normal 0.50-1.30 [facility] Comment on above: Performed By: #### 2 4323-8 #### EMANUEL FLOR ([id number]) [facility] ([facility]) [address] [place] [address] 46218 Glomerular filtration rate/1.73 sq M.predicted 79 mL/min/1.73m*2 Normal >60 [facility] Comment on above: Result Comment: Calc ulations of estimated GFR are performed using the 2020 CKD-EPI Study Refit equation without the race variable for the IDMS-Traceable creatinine methods. https://jasn.asnjournals.org/content//ASN.45808 82004 Performed By: #### 2 4323-8 #### EMANUEL FLOR ([id number]) [facility] ([facility]) [address] [place] [address] 64271 Glucose [Mass/Vol] 117 mg/dL High 74-99 [facility] Comment on above: Performed By: #### 2 4323-8 #### EMANUEL FLOR ([id number]) [facility] ([facility]) [address] [place] [address] 82843 Potassium [Moles/Vol] 4.2 mmol/L Normal 3.5-5.3 [facility] Comment on above: Performed By: #### 2 4323-8 #### EMANUEL FLOR ([id number]) [facility] ([facility]) [address] [place] [address] 00854 Protein [Mass/Vol] 6.3 g/dL Low 6.4-8.2 [facility] Comment on above: Performed By: #### 2 4323-8 #### EMANUEL FLOR ([id number]) [facility] ([facility]) [address] [place] [address] 33911 Sodium [Moles/Vol] 141 mmol/L Normal 136-145 [facility] Comment on above: Performed By: #### 2 4323-8 #### EMANUEL FLOR ([id number]) [facility] ([facility]) [address] [place] [address] Urea nitrogen [Mass/Vol] 17 mg/dL Normal 6-23 [facility] Comment on above: Performed By: #### 2 4323-8 #### EMANUEL FLOR ([id number]) [facility] ([facility]) [facility] [place] [address] HbA1c (Bld) [Mass fraction]o n 01-25-2024 Average glucose Estimated from glycated hemoglobin (Bld) [Mass/Vol] 154 mg/dL Normal Not Established [facility] Comment on above: Order Comment: Diagn osis of Diabetes-Adults Non-Diabetic: < or = 5.6% Increased risk for developing diabetes: 5.7-6.4% Diagnostic of diabetes: > or = 6.5% Performed By: #### 4 548-4 #### CISCO Yanez ([id number]) [facility] ([facility]) [address] [place], [place] [address] Hemoglobin A1c/Hemoglobin.to tati 01-25-2024 HbA1c (Bld) [Mass fraction] 7.0 % High see below [facility] Comment on above: Order Comment: Diagn osis of Diabetes-Adults Non-Diabetic: < or = 5.6% Increased risk for developing diabetes: 5.7-6.4% Diagnostic of diabetes: > or = 6.5% Performed By: #### 4 548-4 #### CISCO Yanez ([id number]) [facility] ([facility]) [address] [place] [address] 80153 Testosterone Free/Testostero ne.total [Mass fraction]on 01-25-2024 Testosterone [Mass/Vol] 149 ng/dL Low 250-1100 [facility] Comment on above: Result Comment: Men with clinically significant hypogonadal symptoms and testosterone values repeatedly in the range of the 200-300 ng/dL or less, may benefit from testosterone treatment after adequate risk and benefits counseling. For additional information, please refer to http://education.8D World.FuelMyBlog/faq/ KfxvpKovdivxcknoqGAROYIQPN823 (This link is being provided for informational/ educational purposes only.) This test was developed and its analytical performance characteristics have been determined by [employer] [place]. It has not been cleared or approved by the U.S. Food and Drug Administration. This assay has been validated pursuant to the CLIA regulations and is used for clinical purposes. Performed By: #### 1 5432-8 #### QUEST KELLIETL ([id number]) [address] [facility] [address] [place] Testosterone Free [Mass/Vol] 21.8 pg/mL Low 30.0-135.0 [facility] Comment on above: Result Comment: This test was developed and its analytical performance characteristics have been determined by [facility] [place]. It has not been cleared or approved by the U.S. Food and Drug Administration. This assay has been validated pursuant to the CLIA regulations and is used for clinical purposes. Performed By: #### 1 5432-8 #### QUEST KELLIETL ([id number]) [address] [facility] [place] XR tomography Unspecified gennaro dy regionon 12-07-2023 These images are not reportable by radiology and will not be interpreted by Radiologists. IMAGING ECG 12 lead (Clinic Performe d)on 11-19-2023 Ventricular paced rhythm [facility] Work Phone: C reactive proteinon 024 CRP [Mass/Vol] 0.13 mg/dL Normal <1.00 [facility] Comment on above: Performed By: #### 1 988-5 #### EMANUEL FLOR ([id number]) [facility] ([facility]) [address] [place] [address] CBC W Auto Differential pane l (Bld)on 11-16-2023 Basophils (Bld) [#/Vol] 0.04 x10*3/uL Normal 0.00-0.10 [facility] Comment on above: Performed By: #### 5 7021-8 #### EMANUEL FLOR ([id number]) [facility] ([facility]) [address] [place] [address] 67778 Basophils/100 WBC (Bld) 0.5 % Normal 0.0-2.0 [facility] Comment on above: Performed By: #### 5 7021-8 #### EMANUEL FLOR ([id number]) [facility] ([facility]) [address] [place] [address] 25094 Eosinophils (Bld) [#/Vol] 0.25 x10*3/uL Normal 0.00-0.40 [facility] Comment on above: Performed By: #### 5 7021-8 #### EMANUEL FLOR ([id number]) [facility] ([facility]) [address] [place] [address] 59215 Eosinophils/100 WBC (Bld) 3.2 % Normal 0.0-6.0 [facility] Comment on above: Performed By: #### 7021-8 #### EMANUEL FLOR ([id number]) [facility] ([facility]) [address] [place] [address] 13541 Erythrocyte distribution width (RBC) [Ratio] 15.0 % High 11.5-14.5 [facility] Comment on above: Performed By: #### 5 7021-8 #### EMANUEL FLOR ([id number]) [facility] ([facility]) [address] [place] [address] 61400 Hematocrit (Bld) [Volume fraction] 41.1 % Normal 41.0-52.0 [facility] Comment on above: Performed By: #### 5 7021-8 #### EMANUEL FLOR ([id number]) [facility] ([facility]) [address] [place] [address] 15820 Hemoglobin (Bld) [Mass/Vol] 12.7 g/dL Low 13.5-17.5 [facility] Comment on above: Performed By: #### 5 7021-8 #### EMANUEL FLOR ([id number]) [facility] ([facility]) [address] [place] [address] 28448 Immature granulocytes (Bld) [#/Vol] 0.02 x10*3/uL Normal 0.00-0.50 [facility] Comment on above: Performed By: #### 5 7021-8 #### EMANUEL FLOR ([id number]) [facility] ([facility]) [address] [place] [address] 30946 Immature granulocytes/100 WBC (Bld) 0.3 % Normal 0.0-0.9 [facility] Comment on above: Result Comment: Kathy ture Granulocyte Count (IG) includes promyelocytes, myelocytes and metamyelocytes but does not include bands. Percent differential counts (%) should be interpreted in the context of the absolute cell counts (cells/UL). Performed By: #### 5 7021-8 #### EMANUEL FLOR ([id number]) [facility] ([facility]) [address] [place] [address] 54200 Lymphocytes (Bld) [#/Vol] 2.23 x10*3/uL Normal 0.80-3.00 [facility] Comment on above: Performed By: #### 5 7021-8 #### EMANUEL FLOR ([id number]) [facility] ([facility]) [address] [place] [address] 32904 Lymphocytes/100 WBC (Bld) 28.8 % Normal 13.0-44.0 [facility] Comment on above: Performed By: #### 5 7021-8 #### EMANUEL FLOR ([id number]) [facility] ([facility]) [address] [place] [address] 43957 MCH (RBC) [Entitic mass] 29.1 pg Normal 26.0-34.0 [facility] Comment on above: Performed By: #### 5 7021-8 #### EMANUEL FLOR ([id number]) [facility] ([facility]) [address] [place] [address] 13693 MCHC (RBC) [Mass/Vol] 30.9 g/dL Low 32.0-36.0 [facility] Comment on above: Performed By: #### 5 7021-8 #### EMANUEL FLOR ([id number]) [facility] ([facility]) [address] [place] [address] 89391 MCV (RBC) [Entitic vol] 94 fL Normal 80-100 [facility] Comment on above: Performed By: #### 5 7021-8 #### EMANUEL FLOR ([id number]) [facility] ([facility]) [address] [place] [address] 47872 Monocytes (Bld) [#/Vol] 0.50 x10*3/uL Normal 0.05-0.80 [facility] Comment on above: Performed By: #### 5 7021-8 #### EMANUEL FLOR ([id number]) [facility] ([facility]) [address] [place] [address] 56353 Monocytes/100 WBC (Bld) 6.5 % Normal 2.0-10.0 [facility] Comment on above: Performed By: #### 5 7021-8 #### EMANUEL FLOR ([id number]) [facility] ([facility]) [address] [place] [address] 53377 Neutrophils (Bld) [#/Vol] 4.71 x10*3/uL Normal 1.60-5.50 [facility] Comment on above: Result Comment: Perc ent differential counts (%) should be interpreted in the context of the absolute cell counts (cells/uL). Performed By: #### 5 7021-8 #### EMANULE FLOR ([id number]) [facility] ([facility]) [address] [place] [address] 23675 Neutrophils/100 WBC (Bld) 60.7 % Normal 40.0-80.0 [facility] Comment on above: Performed By: #### 5 7021-8 #### EMANUEL FLOR ([id number]) [facility] ([facility]) [address] [place] [address] 61557 Nucleated RBC/100 WBC (Bld) [Ratio] 0.0 /100 WBCs Normal 0.0-0.0 [facility] Comment on above: Performed By: #### 5 7021-8 #### EMANUEL FLOR ([id number]) [facility] ([facility]) [address] [place] [address] 74628 Platelets (Bld) [#/Vol] 294 x10*3/uL Normal 150-450 [facility] Comment on above: Performed By: #### 5 7021-8 #### EMANUEL FLOR ([id number]) [facility] ([facility]) [address] [place] [address] RBC (Bld) [#/Vol] 4.37 x10*6/uL Low 4.50-5.90 [facility] Comment on above: Performed By: #### 5 7021-8 #### EMANUEL FLOR ([id number]) [facility] ([facility]) [address] [place] [address] WBC (Bld) [#/Vol] 7.8 x10*3/uL Normal 4.4-11.3 [facility] Comment on above: Performed By: #### 5 7021-8 #### EMANUEL FLOR ([id number]) [facility] ([facility]) [address] [place] [address] Comprehensive metabolic 2000 panelon 11-16-2023 Albumin BCP dye [Mass/Vol] 3.9 g/dL Normal 3.4-5.0 [facility] Comment on above: Performed By: #### 2 4323-8 #### EMANUEL FLOR ([id number]) [facility] ([facility]) [address] [place] [address] ALP [Catalytic activity/Vol] 66 U/L Normal 33-136 [facility] Comment on above: Performed By: #### 2 4323-8 #### EMANUEL FLOR ([id number]) [facility] ([facility]) [address] [place] [address] 28372 ALT With P-5'-P [Catalytic activity/Vol] 10 U/L Normal 10-52 [facility] Comment on above: Result Comment: Lien ents treated with Sulfasalazine may generate falsely decreased results for ALT. Performed By: #### 2 4323-8 #### EMANUEL FLOR ([id number]) [facility] ([facility]) [address] [place] [address] Anion gap [Moles/Vol] 11 mmol/L Normal 10-20 [facility] Comment on above: Performed By: #### 2 4323-8 #### EMANUEL FLOR ([id number]) [facility] ([facility]) [address] [place] [address] 46906 AST With P-5'-P [Catalytic activity/Vol] 11 U/L Normal 9-39 [facility] Comment on above: Performed By: #### 2 4323-8 #### EMANUEL FLOR ([id number]) [facility] ([facility]) [address] [place] [address] 06265 Bilirubin [Mass/Vol] 0.7 mg/dL Normal 0.0-1.2 [facility] Comment on above: Performed By: #### 2 4322-8 #### EMANUEL FLOR ([id number]) [facility] ([facility]) [address] [place] [address] 93530 Calcium [Mass/Vol] 8.9 mg/dL Normal 8.6-10.3 [facility] Comment on above: Performed By: #### 2 4322-8 #### EMANUEL FLOR ([id number]) [facility] ([facility]) [address] [place] [address] 79278 Chloride [Moles/Vol] 106 mmol/L Normal 98-107 [facility] Comment on above: Performed By: #### 2 432-8 #### EMANUEL FLOR ([id number]) [facility] ([facility]) [address] [place] [address] 75376 CO2 [Moles/Vol] 28 mmol/L Normal 21-32 [facility] Comment on above: Performed By: #### 2 4323-8 #### EMANUEL FLOR ([id number]) [facility] ([facility]) [address] [place] [address] 66898 Creatinine [Mass/Vol] 0.96 mg/dL Normal 0.50-1.30 [facility] Comment on above: Performed By: #### 2 432-8 #### EMANUEL FLOR ([id number]) [facility] ([facility]) [address] [place] [address] 72043 Glomerular filtration rate/1.73 sq M.predicted 80 mL/min/1.73m*2 Normal >60 [facility] Comment on above: Result Comment: Calc ulations of estimated GFR are performed using the 2020 CKD-EPI Study Refit equation without the race variable for the IDMS-Traceable creatinine methods. https://jasn.asnjournals.org/content/early/ASN.35831 51263 Performed By: #### 2 4323-8 #### EMANUEL FLOR ([id number]) [facility] ([facility]) [address] [place] [address] 77990 Glucose [Mass/Vol] 115 mg/dL High 74-99 [facility] Comment on above: Performed By: #### 2 4323-8 #### EMANUEL FLOR ([id number]) [facility] ([facility]) [address] [place] [address] 20572 Potassium [Moles/Vol] 4.0 mmol/L Normal 3.5-5.3 [facility] Comment on above: Performed By: #### 2 4323-8 #### EMANUEL FLOR ([id number]) [facility] ([facility]) [address] [place] [address] 08447 Protein [Mass/Vol] 6.1 g/dL Low 6.4-8.2 [facility] Comment on above: Performed By: #### 2 4323-8 #### EMANUEL FLOR ([id number]) [facility] ([facility]) [address] [place] [address] 94097 Sodium [Moles/Vol] 141 mmol/L Normal 136-145 [facility] Comment on above: Performed By: #### 2 4323-8 #### EMANUEL FLOR ([id number]) [facility] ([facility]) [address] [place] [address] 80063 Urea nitrogen [Mass/Vol] 16 mg/dL Normal 6-23 [facility] Comment on above: Performed By: #### 2 4323-8 #### CASTELLANOS CHACHO ([id number]) [facility] ([facility]) [address] [place] [address] ESR Westergren method (Bld) [Velocity]on 11-16-2023 ESR (Bld) [Velocity] 25 mm/h High 0-20 [facility] Comment on above: Performed By: #### 4 537-7 #### CASTELLANOS CHACHO ([id number]) [facility] ([facility]) [address] [place] [address] ECG 12 lead (Ancillary Perfo rmed)Ordered By: Joel Stroud on 10-23-2023 Atrial Rate 375 BPM [facility] Work Phone: Q Onset 182 ms [facility] Work Phone: QRS Count 10 beats [facility] Work Phone: QRS Duration 198 [facility] Work Phone: QT Interval 504 [facility] Work Phone: QTC Calculation(Bazett) 507 [facility] Work Phone: QTC Fredericia 506 [facility] Work Phone: R Barnhart -86 degrees [facility] Work Phone: T Barnhart 77 degrees [facility] Work Phone: T Offset 434 ms [facility] Work Phone: Ventricular Rate 61 BPM [facility] Work Phone: [facility] Work Phone: ECG 12 lead (Ancillary Perfo rmed)on 10-23-2023 Ventricular-paced rhythm Abnormal ECG When compared with ECG of 16-MAR-2023 13:28, Previous ECG has undetermined rhythm, needs review Confirmed by Joel Stroud ([id number]) on 10/23/2023 10:07:07 PM MUSE Joel Stroud MD - 10/23/2023 Ventricular-paced rhythm Abnormal ECG When compared with ECG of 16-MAR-2023 13:28, Previous ECG has undetermined rhythm, needs review Confirmed by Joel Stroud (85) on 10/23/2023 10:07:07 PM [facility] Work Phone: MR LUMBAR SPINE WO IV CONTRA STon 09-24-2023 MR LUMBAR SPINE WO IV CONTRAST Interpreted By: Rocio Go, STUDY: MR LUMBAR SPINE WO IV CONTRAST performed 09/24/2023 12:02 pm INDICATION: Signs/Symptoms:lower back and leg pain. COMPARISON: Lumbar spine radiographs dated 08/07/2023. MRI lumbar spine performed 03/31/2021. ACCESSION NUMBER(S): [id number] ORDERING CLINICIAN: REGGIE ARAGON TECHNIQUE: Multiplanar multisequence MR imaging of the lumbar spine performed without intravenous contrast. Sagittal T1, T2, STIR, axial T1 and T2 weighted images of the lumbar spine were acquired. FINDINGS: Segmentation: Partially formed S1-S2 disc. 5 non rib-bearing lumbar vertebral bodies are designated on this examination. Conus: The lower thoracic cord appears unremarkable. The conus terminates at the L2 vertebral body level. Cauda equina are unremarkable. Epidural fluid: None. Alignment: Mild rotatory levo scoliosis as evident on localizer imaging with apex at L2-L3. Lumbar alignment is otherwise maintained. Vertebral bodies: Minimal chronic anterior wedging of T12 and L1. Lumbar vertebral body heights are otherwise maintained. Marrow signal: Type 2 Modic endplate signal change posteriorly at L2-L3. No focal STIR hyperintensity/marrow edema. Intervertebral discs: Tiny Schmorl's node components at T11-T12. Moderate multilevel degenerative disc height loss. Multilevel disc desiccation. Probable vacuum disc components at L3-L4 and L4-L5. Degenerative change: T12-L1: Mild bilateral facet arthropathy with ligamentum flavum hypertrophy. Minimal disc bulge with tiny left subarticular disc osteophyte protrusion component. Left lateral recess narrowing with no additional spinal canal stenosis. No neural foraminal narrowing. L1-2: Mild facet arthropathy with ligamentum flavum hypertrophy. No spinal canal stenosis or neural foraminal narrowing. L2-3: There is suggestion of previous right hemilaminectomy. Bilateral facet arthropathy. Dtid-ef-nfmrnxpi disc bulge with hypertrophic endplate spurring. Mild narrowing of the lateral recesses without spinal canal stenosis. Mild bilateral neural foraminal narrowing. L3-4: Possible remote right hemilaminectomy. Mild bilateral facet arthropathy. Mild disc bulge and endplate spurring. Narrowing of the lateral recesses without additional spinal canal stenosis. Mild bilateral neural foraminal narrowing. L4-5: Moderate facet arthropathy with ligamentum flavum hypertrophy. Previous right facet synovial cyst is no longer definitively visualized. Moderate disc bulge with hypertrophic endplate spurring. Moderate trefoil narrowing of the thecal sac and lateral recesses. Moderate rrrl-hejgudl-aswl-righ t neural foraminal narrowing with facet arthropathy contacting the exiting left L4 nerve root. L5-S1: Mild facet arthropathy. Mild disc bulge with trace posterior fissuring. Similar left lateral recess narrowing. No additional spinal canal stenosis. No substantial neural foraminal narrowing. Soft tissues: Incomplete visualization of a large, exophytic, cystic appearing lesion arising from the left kidney. Fatty atrophy of the posterior paraspinal musculature. IMPRESSION: Similar to minimally worsened lumbar degenerative change. At L4-L5 the previously identified right facet synovial cyst is no longer clearly delineated. There is moderate spinal canal stenosis/lateral recess narrowing with moderate crqt-lkgnntr-bmbh-righ t neural foraminal narrowing with facet osteophyte contacting/possibly impinging the exiting left L4 nerve root. MACRO: None Signed by: Rocio Go 09/24/2023 1:33 PM Dictation workstation: [id number] [facility] MR Lumbar spine WO contrasto n 09-24-2023 Similar to minimally worsened lumbar degenerative change. At L4-L5 the previously identified right facet synovial cyst is no longer clearly delineated. There is moderate spinal canal stenosis/lateral recess narrowing with moderate rjol-ubfghpf-bfoz-righ t neural foraminal narrowing with facet osteophyte contacting/possibly impinging the exiting left L4 nerve root. MACRO: None Signed by: Rocio Go 09/24/2023 1:33 PM Dictation workstation: [id number] MMODAL Interpreted By: Rocio Go, STUDY: MR LUMBAR SPINE WO IV CONTRAST performed 09/24/2023 12:02 pm INDICATION: Signs/Symptoms:lower back and leg pain. COMPARISON: Lumbar spine radiographs dated 08/07/2023. MRI lumbar spine performed 03/31/2021. ACCESSION NUMBER(S): [id number] ORDERING CLINICIAN: REGGIE ARAGON TECHNIQUE: Multiplanar multisequence MR imaging of the lumbar spine performed without intravenous contrast. Sagittal T1, T2, STIR, axial T1 and T2 weighted images of the lumbar spine were acquired. FINDINGS: Segmentation: Partially formed S1-S2 disc. 5 non rib-bearing lumbar vertebral bodies are designated on this examination. Conus: The lower thoracic cord appears unremarkable. The conus terminates at the L2 vertebral body level. Cauda equina are unremarkable. Epidural fluid: None. Alignment: Mild rotatory levo scoliosis as evident on localizer imaging with apex at L2-L3. Lumbar alignment is otherwise maintained. Vertebral bodies: Minimal chronic anterior wedging of T12 and L1. Lumbar vertebral body heights are otherwise maintained. Marrow signal: Type 2 Modic endplate signal change posteriorly at L2-L3. No focal STIR hyperintensity/marrow edema. Intervertebral discs: Tiny Schmorl's node components at T11-T12. Moderate multilevel degenerative disc height loss. Multilevel disc desiccation. Probable vacuum disc components at L3-L4 and L4-L5. Degenerative change: T12-L1: Mild bilateral facet arthropathy with ligamentum flavum hypertrophy. Minimal disc bulge with tiny left subarticular disc osteophyte protrusion component. Left lateral recess narrowing with no additional spinal canal stenosis. No neural foraminal narrowing. L1-2: Mild facet arthropathy with ligamentum flavum hypertrophy. No spinal canal stenosis or neural foraminal narrowing. L2-3: There is suggestion of previous right hemilaminectomy. Bilateral facet arthropathy. Sqse-xm-vpixtdez disc bulge with hypertrophic endplate spurring. Mild narrowing of the lateral recesses without spinal canal stenosis. Mild bilateral neural foraminal narrowing. L3-4: Possible remote right hemilaminectomy. Mild bilateral facet arthropathy. Mild disc bulge and endplate spurring. Narrowing of the lateral recesses without additional spinal canal stenosis. Mild bilateral neural foraminal narrowing. L4-5: Moderate facet arthropathy with ligamentum flavum hypertrophy. Previous right facet synovial cyst is no longer definitively visualized. Moderate disc bulge with hypertrophic endplate spurring. Moderate trefoil narrowing of the thecal sac and lateral recesses. Moderate iqej-rxifiub-hsai-righ t neural foraminal narrowing with facet arthropathy contacting the exiting left L4 nerve root. L5-S1: Mild facet arthropathy. Mild disc bulge with trace posterior fissuring. Similar left lateral recess narrowing. No additional spinal canal stenosis. No substantial neural foraminal narrowing. Soft tissues: Incomplete visualization of a large, exophytic, cystic appearing lesion arising from the left kidney. Fatty atrophy of the posterior paraspinal musculature. [facility] MMODAL Rocio Go MD - 09/24/2023 Interpreted By: Rocio Go, STUDY: MR LUMBAR SPINE WO IV CONTRAST performed 09/24/2023 12:02 pm INDICATION: Signs/Symptoms:lower back and leg pain. COMPARISON: Lumbar spine radiographs dated 08/07/2023. MRI lumbar spine performed 03/31/2021. ACCESSION NUMBER(S): [id number] ORDERING CLINICIAN: REGGIE ARAGON TECHNIQUE: Multiplanar multisequence MR imaging of the lumbar spine performed without intravenous contrast. Sagittal T1, T2, STIR, axial T1 and T2 weighted images of the lumbar spine were acquired. FINDINGS: Segmentation: Partially formed S1-S2 disc. 5 non rib-bearing lumbar vertebral bodies are designated on this examination. Conus: The lower thoracic cord appears unremarkable. The conus terminates at the L2 vertebral body level. Cauda equina are unremarkable. Epidural fluid: None. Alignment: Mild rotatory levo scoliosis as evident on localizer imaging with apex at L2-L3. Lumbar alignment is otherwise maintained. Vertebral bodies: Minimal chronic anterior wedging of T12 and L1. Lumbar vertebral body heights are otherwise maintained. Marrow signal: Type 2 Modic endplate signal change posteriorly at L2-L3. No focal STIR hyperintensity/marrow edema. Intervertebral discs: Tiny Schmorl's node components at T11-T12. Moderate multilevel degenerative disc height loss. Multilevel disc desiccation. Probable vacuum disc components at L3-L4 and L4-L5. Degenerative change: T12-L1: Mild bilateral facet arthropathy with ligamentum flavum hypertrophy. Minimal disc bulge with tiny left subarticular disc osteophyte protrusion component. Left lateral recess narrowing with no additional spinal canal stenosis. No neural foraminal narrowing. L1-2: Mild facet arthropathy with ligamentum flavum hypertrophy. No spinal canal stenosis or neural foraminal narrowing. L2-3: There is suggestion of previous right hemilaminectomy. Bilateral facet arthropathy. Nbsr-ja-whvfidao disc bulge with hypertrophic endplate spurring. Mild narrowing of the lateral recesses without spinal canal stenosis. Mild bilateral neural foraminal narrowing. L3-4: Possible remote right hemilaminectomy. Mild bilateral facet arthropathy. Mild disc bulge and endplate spurring. Narrowing of the lateral recesses without additional spinal canal stenosis. Mild bilateral neural foraminal narrowing. L4-5: Moderate facet arthropathy with ligamentum flavum hypertrophy. Previous right facet synovial cyst is no longer definitively visualized. Moderate disc bulge with hypertrophic endplate spurring. Moderate trefoil narrowing of the thecal sac and lateral recesses. Moderate ntze-pwgnbvj-vqlx-righ t neural foraminal narrowing with facet arthropathy contacting the exiting left L4 nerve root. L5-S1: Mild facet arthropathy. Mild disc bulge with trace posterior fissuring. Similar left lateral recess narrowing. No additional spinal canal stenosis. No substantial neural foraminal narrowing. Soft tissues: Incomplete visualization of a large, exophytic, cystic appearing lesion arising from the left kidney. Fatty atrophy of the posterior paraspinal musculature. IMPRESSION: Similar to minimally worsened lumbar degenerative change. At L4-L5 the previously identified right facet synovial cyst is no longer clearly delineated. There is moderate spinal canal stenosis/lateral recess narrowing with moderate znax-hfqlvqi-qlly-righ t neural foraminal narrowing with facet osteophyte contacting/possibly impinging the exiting left L4 nerve root. MACRO: None Signed by: Rocio Go 09/24/2023 1:33 PM Dictation workstation: [id number] [facility] Work Phone: Radiology Study observation (narrative) [facility] Work Phone: MR Lumbar spine WO contrastO rdered By: Rocio Go on 09-24-2023 [facility] Work Phone: MR Cervical spine WO contras ton 08-27-2023 Multilevel degenerative disc disease and facet arthrosis with mild spinal canal stenosis. Varying degrees of neural foraminal narrowing most pronounced at C3-C4 with moderate right and moderate to severe left neural foraminal stenosis. MACRO: None Signed by: Vane Rodriguez 08/27/2023 2:07 PM Dictation workstation: [id number] MMODAL Interpreted By: Vane Bhardwaj, STUDY: MR CERVICAL SPINE WO IV CONTRAST; 08/27/2023 11:45 am INDICATION: Signs/Symptoms:neck and arm pain. COMPARISON: None. ACCESSION NUMBER(S): [id number] ORDERING CLINICIAN: REGGIE ARAGON TECHNIQUE: Sagittal T1, T2, STIR, axial T1 and axial T2 weighted images were acquired through the cervical spine. FINDINGS: Craniocervical junction is within normal limits. Cerebellar tonsils are above the foramen magnum. There is trace anterolisthesis of C4 on C5, C6 on C7 and C7 on T1. Alignment, vertebral body heights and marrow signal pattern are within normal limits. There is desiccated disc signal throughout the cervical spine with mild degenerative endplate changes and disc height loss at C5-C6 and C6-C7. The cervical cord is unremarkable. Prevertebral soft tissues are not thickened. There is a nodule within the right thyroid lobe measuring 1.3 cm. Evaluation by level: C1-C2: No spinal canal stenosis C2-C3: No spinal canal or neural foraminal stenosis C3-C4: Disc osteophyte complex, uncovertebral joint hypertrophy and facet arthrosis. Mild spinal canal stenosis. Moderate right and moderate to severe left neural foraminal stenosis. C4-C5: Disc osteophyte complex and uncovertebral joint hypertrophy and facet arthrosis. No spinal canal stenosis. Mild left and no right neural foraminal stenosis C5-C6: Disc osteophyte complex and uncovertebral joint hypertrophy and facet arthrosis. No spinal canal stenosis. Mild left and no right neural foraminal stenosis C6-C7: Right eccentric disc osteophyte complex and uncovertebral joint hypertrophy and facet arthrosis. Mild spinal canal and neural foraminal stenosis C7-T1: No spinal canal or neural foraminal stenosis. [facility] Vane Rodriguez MD - 08/27/2023 Interpreted By: Vane Rodriguez, STUDY: MR CERVICAL SPINE WO IV CONTRAST; 08/27/2023 11:45 am INDICATION: Signs/Symptoms:neck and arm pain. COMPARISON: None. ACCESSION NUMBER(S): [id number] ORDERING CLINICIAN: REGGIE ARAGON TECHNIQUE: Sagittal T1, T2, STIR, axial T1 and axial T2 weighted images were acquired through the cervical spine. FINDINGS: Craniocervical junction is within normal limits. Cerebellar tonsils are above the foramen magnum. There is trace anterolisthesis of C4 on C5, C6 on C7 and C7 on T1. Alignment, vertebral body heights and marrow signal pattern are within normal limits. There is desiccated disc signal throughout the cervical spine with mild degenerative endplate changes and disc height loss at C5-C6 and C6-C7. The cervical cord is unremarkable. Prevertebral soft tissues are not thickened. There is a nodule within the right thyroid lobe measuring 1.3 cm. Evaluation by level: C1-C2: No spinal canal stenosis C2-C3: No spinal canal or neural foraminal stenosis C3-C4: Disc osteophyte complex, uncovertebral joint hypertrophy and facet arthrosis. Mild spinal canal stenosis. Moderate right and moderate to severe left neural foraminal stenosis. C4-C5: Disc osteophyte complex and uncovertebral joint hypertrophy and facet arthrosis. No spinal canal stenosis. Mild left and no right neural foraminal stenosis C5-C6: Disc osteophyte complex and uncovertebral joint hypertrophy and facet arthrosis. No spinal canal stenosis. Mild left and no right neural foraminal stenosis C6-C7: Right eccentric disc osteophyte complex and uncovertebral joint hypertrophy and facet arthrosis. Mild spinal canal and neural foraminal stenosis C7-T1: No spinal canal or neural foraminal stenosis. IMPRESSION: Multilevel degenerative disc disease and facet arthrosis with mild spinal canal stenosis. Varying degrees of neural foraminal narrowing most pronounced at C3-C4 with moderate right and moderate to severe left neural foraminal stenosis. MACRO: None Signed by: Vane Rodriguez 08/27/2023 2:07 PM Dictation workstation: [id number] [facility] Work Phone: Radiology Study observation (narrative) [facility] Work Phone: MR Cervical spine WO contras tOrdered By: Vane Rodriguez on 08-27-2023 [facility] Work Phone: XR Cervical spine 2 or 3 Vie wson 08-08-2023 Mild malalignment an d moderate multilevel degenerative changes cervical spine. MACRO: None Signed by: Wei Quezada 08/08/2023 10:01 AM Dictation workstation: [id number] [facility] Interpreted By: Wei Quezada, STUDY: XR CERVICAL SPINE 2-3 VIEWS; ; 08/07/2023 10:16 am INDICATION: Signs/Symptoms:neck and arm pain. COMPARISON: March 07, 2022 thoracic spine radiographs. September 13, 2018 skull radiographs. July 21, [address] and chest radiograph and March 16, 2023 chest radiograph. ACCESSION NUMBER(S): [id number] ORDERING CLINICIAN: REGGIE ARAGON FINDINGS: Frontal, lateral and odontoid views are submitted. There is trace C3 retrolisthesis and trace C7 anterolisthesis. Moderate multilevel degenerative changes. No fracture, suspicious osseous lesion or unusual paravertebral soft tissue abnormalities. There is a left transvenous cardiac device. Stable reticular fibrotic changes involving the right upper chest laterally. [facility] Wei Quezada MD - 08/08/2023 Interpreted By: Wei Quezada, STUDY: XR CERVICAL SPINE 2-3 VIEWS; ; 08/07/2023 10:16 am INDICATION: Signs/Symptoms:neck and arm pain. COMPARISON: March 07, 2022 thoracic spine radiographs. September 13, 2018 skull radiographs. July 21, [address] and chest radiograph and March 16, 2023 chest radiograph. ACCESSION NUMBER(S): [id number] ORDERING CLINICIAN: REGGIE ARAGON FINDINGS: Frontal, lateral and odontoid views are submitted. There is trace C3 retrolisthesis and trace C7 anterolisthesis. Moderate multilevel degenerative changes. No fracture, suspicious osseous lesion or unusual paravertebral soft tissue abnormalities. There is a left transvenous cardiac device. Stable reticular fibrotic changes involving the right upper chest laterally. IMPRESSION: Mild malalignment and moderate multilevel degenerative changes cervical spine. MACRO: None Signed by: Wei Quezada 08/08/2023 10:01 AM Dictation workstation: [id number] [facility] Work Phone: XR Cervical spine 2 or 3 Vie wsOrdered By: Wei Quezada on 08-08-2023 [facility] Work Phone: XR Lumbar spine 2 or 3 Views on 08-08-2023 Interpreted By: Wei Quezada, STUDY: XR LUMBAR SPINE 2-3 VIEWS; ; 08/07/2023 10:15 am INDICATION: Signs/Symptoms:lower back pain. COMPARISON: March 27, 2022 radiographs. January 26, 2022 CT abdomen and pelvis ACCESSION NUMBER(S): [id number] ORDERING CLINICIAN: REGGIE ARAGON FINDINGS: Three views are submitted. Stable alignment. No detected fracture, or suspicious osseous lesion. Moderate to advanced multilevel spondylosis and degenerative disc changes. Increase wedge-shaped sclerosis anterior superior L3 vertebral body without well-delineated significant loss of disc height endplate region sclerosis superior L3 and inferior L1 favoring progressive degenerative change. There are scattered arterial vascular calcifications. [facility] - 08/08/2023 Interpreted By: Wei Quezada, STUDY: XR LUMBAR SPINE 2-3 VIEWS; ; 08/07/2023 10:15 am INDICATION: Signs/Symptoms:lower back pain. COMPARISON: March 27, 2022 radiographs. January 26, 2022 CT abdomen and pelvis ACCESSION NUMBER(S): [id number] ORDERING CLINICIAN: REGGIE ARAGON FINDINGS: Three views are submitted. Stable alignment. No detected fracture, or suspicious osseous lesion. Moderate to advanced multilevel spondylosis and degenerative disc changes. Increase wedge-shaped sclerosis anterior superior L3 vertebral body without well-delineated significant loss of disc height endplate region sclerosis superior L3 and inferior L1 favoring progressive degenerative change. There are scattered arterial vascular calcifications. IMPRESSION: Probable progressive degenerative changes lumbar spine. Scattered arterial vascular calcifications. MACRO: None Signed by: Wei Quezada 08/08/2023 10:05 AM Dictation workstation: [id number] [facility] Work Phone: XR Lumbar spine 2 or 3 Views Ordered By: Wei Quezada on 08-08-2023 [facility] Work Phone: XR Pelvis 1 or 2 Viewson No acute detected abnormality. MACRO: None Signed by: Wei Quezada 08/08/2023 10:09 AM Dictation workstation: [id number] [facility] Interpreted By: Wei Quezada, STUDY: XR PELVIS 1-2 VIEWS; ; 08/07/2023 10:14 am INDICATION: Signs/Symptoms:left groin pain. COMPARISON: January 27, 2020 CT abdomen and pelvis ACCESSION NUMBER(S): [id number] ORDERING CLINICIAN: REGGIE ARAGON FINDINGS: Single view demonstrates stable mild hip region degenerative changes. No fracture, suspicious osseous lesion or acute unusual paravertebral soft tissue abnormality. There are scattered arterial vascular calcifications. [facility] Wei Quezada MD - 08/08/2023 Interpreted By: Wei Quezada, STUDY: XR PELVIS 1-2 VIEWS; ; 08/07/2023 10:14 am INDICATION: Signs/Symptoms:left groin pain. COMPARISON: January 27, 2020 CT abdomen and pelvis ACCESSION NUMBER(S): [id number] ORDERING CLINICIAN: REGGIE ARAGON FINDINGS: Single view demonstrates stable mild hip region degenerative changes. No fracture, suspicious osseous lesion or acute unusual paravertebral soft tissue abnormality. There are scattered arterial vascular calcifications. IMPRESSION: No acute detected abnormality. MACRO: None Signed by: Wei Quezada 08/08/2023 10:09 AM Dictation workstation: [id number] [facility] Work Phone: XR Pelvis 1 or 2 ViewsOrdere d By: Wei Quezada on 08-08-2023 [facility] Work Phone: XR Shoulder - right 2 Viewso n 08-08-2023 Stable radiographic appearance of the right shoulder. MACRO: None Signed by: Wei Quezada 08/08/2023 10:07 AM Dictation workstation: [id number] [facility] Interpreted By: Wei Quezada, STUDY: XR SHOULDER RIGHT 2+ VIEWS; ; 08/07/2023 10:15 am INDICATION: Signs/Symptoms:right shoulder pain. COMPARISON: July 25, 2022 right shoulder radiographs ACCESSION NUMBER(S): [id number] ORDERING CLINICIAN: REGGIE ARAGON FINDINGS: Five views are submitted. Stable degenerative changes acromioclavicular joint and glenohumeral joint without fracture or suspicious osseous lesion. Stable calcification superior margin of the acromioclavicular joint. Stable reticular fibrotic changes visualized portion of the lungs. [facility] Wei Quezada MD - 08/08/2023 Interpreted By: Wei Quezada, STUDY: XR SHOULDER RIGHT 2+ VIEWS; ; 08/07/2023 10:15 am INDICATION: Signs/Symptoms:right shoulder pain. COMPARISON: July 25, 2022 right shoulder radiographs ACCESSION NUMBER(S): [id number] ORDERING CLINICIAN: REGGIE ARAGON FINDINGS: Five views are submitted. Stable degenerative changes acromioclavicular joint and glenohumeral joint without fracture or suspicious osseous lesion. Stable calcification superior margin of the acromioclavicular joint. Stable reticular fibrotic changes visualized portion of the lungs. IMPRESSION: Stable radiographic appearance of the right shoulder. MACRO: None Signed by: Wei Quezada 08/08/2023 10:07 AM Dictation workstation: [id number] [facility] Work Phone: XR Shoulder - right 2 ViewsO rdered By: Wei Quezada on 08-08-2023 [facility] Work Phone: XR Cervical spine 2 or 3 Vie wson 08-07-2023 Radiology Study observation (narrative) [facility] Work Phone: XR Lumbar spine 2 or 3 Views on 08-07-2023 Radiology Study observation (narrative) [facility] Work Phone: XR Pelvis 1 or 2 Viewson Radiology Study observation (narrative) [facility] Work Phone: XR Shoulder - right 2 Viewso n 08-07-2023 Radiology Study observation (narrative) [facility] Work Phone: LG Jt Injection/Arthrocentes is: R kneeon 04-30-2023 Yaritza Luna , [employer]PER 05/01/2023 5:10 PM LG Jt Injection/Arthrocentes is: R knee Performed by: Yaritza Luna CNP Authorized by: Yaritza Luna CNP CPT 19832 - Large Joint Arthrocentesis: Consent given by: Patient Time out: Immediately prior to the procedure a time out was called Physician or proceduralist has discussed critical or nonroutine steps, procedure duration and anticipated blood loss: Yes Supporting Documentation: Indications: Pain, joint swelling and diagnostic evaluation Procedure Details: Location: Knee Site: R knee Prep: patient was prepped and draped in usual sterile fashion Needle size: 22 G Approach: Anterolateral Medications: 40 mg triamcinolone acetonide 40 mg/mL Anesthetic used: Lidocaine 1% Anesthetic amount (mL): 2 Patient tolerance: Patient tolerated the procedure well with no immediate 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s [facility] Office Visit (Cardiology)on 03-01-2023 Follow-up visit Diagnoses/Problems Assessed Afib (427.31) (I48.91) Bradycardia (427.89) (R00.1) Pacemaker (V45.01) (Z95.0) Chief Complaint Atrial fibrillation History of Present [id number] gentleman with a medical history of diabetes, hypertension, hyperlipidemia, obstructive sleep apnea here to follow-up on new onset atrial fibrillation. Problem #1 atrial fibrillation; status post dual-chamber pacemaker -Underwent an ablation for atrial fibrillation November 2021; subsequently has been put on amiodarone -Has had some bradycardia following the procedure with some fatigue; since then underwent a dual-chamber pacemaker June 2022 with improvement in symptoms. Currently denies any significant dyspnea with exertion. Denies any orthopnea/PND. No lower extremity edema Problem #2 heart failure with preserved ejection fraction -Taking Lasix for 20 mg every other day. On Jardiance 25 mg daily -Appears warm and dry . Active Problems Problems Acute non-recurrent maxillary sinusitis (461.0) (J01.00) Afib (427.31) (I48.91) Arthropathy of left shoulder (716.91) (M19.012) Arthropathy of right knee (716.86) (M17.11) Arthropathy of right shoulder (716.91) (M19.011) Atypical chest pain (786.59) (R07.89) Bilateral renal stones (592.0) (N20.0) BPH (benign prostatic hyperplasia) (600.00) (N40.0) Bradycardia (427.89) (R00.1) Bronchial pneumonia (485) (J18.0) Calcium pyrophosphate deposition disease (CPPD) (275.49,712.20) (M11.20) Carpal tunnel syndrome of right wrist (354.0) (G56.01) Cervical spondylosis (721.0) (M47.812) Chest pain (786.50) (R07.9) Chronic diastolic congestive heart failure (428.32,428.0) (I50.32) Chronic low back pain (724.2,338.29) (M54.50,G89.29) Chronotropic incompetence (426.89) (I45.89) Colon cancer screening (V76.51) (Z12.11) Cough (786.2) (R05.9) Depression (311) (F32.A) Dizziness (780.4) (R42) Encounter for immunization (V03.89) (Z23) Encounter for prostate cancer screening (V76.44) (Z12.5) Erectile dysfunction (607.84) (N52.9) Fatigue (780.79) (R53.83) Generalized osteoarthritis of multiple sites (715.09) (M15.9) GERD (gastroesophageal reflux disease) (530.81) (K21.9) History of kidney stones (V13.01) (Z87.442) Hyperlipemia (272.4) (E78.5) Hypertension, essential, benign (401.1) (I10) Influenza A (487.1) (J10.1) Knee pain, right (719.46) (M25.561) Left inguinal hernia (550.90) (K40.90) Left lower quadrant abdominal pain (789.04) (R10.32) Lumbosacral spondylosis (721.3) (M47.817) Medicare annual wellness visit, subsequent (V70.0) (Z00.00) Mild CAD (414.00) (I25.10) 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) Nocturia (788.43) (R35.1) Obesity (BMI 30-39.9) (278.00) (E66.9) Olecranon bursitis of left elbow (726.33) (M70.22) ALISHA on CPAP (327.23) (G47.33) Pacemaker (V45.01) (Z95.0) Pain in hand and fingers (729.5) (M79.643,M79.646) 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) Persistent atrial fibrillation (427.31) (I48.19) Phimosis (605) (N47.1) 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 Henderson History of Colonoscopy History of Dermatological cryotherapy ACTINIC KERATOSIS ON FACE PER MDS History of Epidural space injection History of Esophagogastroduodenos copy History of Inguinal hernia repair Open right inguinal hernia repair by Dr. Ignacio in 2001 History of Knee replacement LEFT KNEE PER MCB JUNE 2015 History of Lumbar vertebral fusion L5 IN 196 History of Nail debridement History of Pacemaker insertion History of Phacoemulsification of cataract and insertion of intraocular lens RIGHT EYE History of Retinal detachment repair RIGHT EYE History of Sigmoidoscopy flexible 1995 DR LASHELL [place] Past Medical History Problems Bilateral renal stones (592.0) (N20.0) BPH (benign prostatic hyperplasia) (600.00) (N40.0) Carpal tunnel syndrome of right wrist (354.0) (G56.01) Depression (311) (F32.A) Erectile dysfunction (607.84) (N52.9) Generalized osteoarthritis of multiple sites (715.09) (M15.9) GERD (gastroesophageal reflux disease) (530.81) (K21.9) History of actinic keratosis (V13.3) (Z87.2) History of onychomycosis (V12.09) (Z86.19) History of tinea pedis (V12.09) (Z86.19) Hyperlipemia (272.4) (E78.5) Hypertension, essential, benign (401.1) (I10) Obesity (BMI 30-39.9) (278.00) (E66.9) ALISHA on CPAP (327.23) (G47.33) Peripheral a (more content not included)... Normal [facility] Follow Up (Rheumatology)on 0 02-12-2023 Follow Up (Rheumatology) Diagnoses/Problems Assessed Calcium pyrophosphate deposition disease (CPPD) (275.49,712.20) (M11.20) Knee pain, right (719.46) (M25.561) Pain in hand and fingers (729.5) (M79.643,M79.646) Provider Impressions 77 Y M with PMHX of DM, HTN, A fibrillation (on xarelto, s/p ablation), has cardiac pacemaker, ALISHA returns for follow up. Intermittent worsening symptoms with localized pain, swelling, stiffness, mostly at the wrist/hand L>R and R knee, no recurrence, prior involvement of L olecranon bursa with chronic bursitis, is most c/w crystal arthritis (prior imaging does reveal chondrocalcinosis at TFCC and knee). No prior fluid analysis. Uric acid 3.3 Pt has underlying OA which maybe contributing to some joint pain/stiffness. Lower clinical suspicion for RA (no significant symmetrical/MCP involvement, RF/CCP negative), ESR/CRP nml. CK nml.. He denies recent fever, bacteremia, given multiple joints involved, less likely infectious etiology. Knee xray 01/21: Moderate medial compartment arthritis. Severe chondrocalcinosis which can be seen with CPPD arthropathy -- Knee xray show CPPD, no current effusion. Pt reports control of symptoms with Tylenol. -- Will monitor for recurring inflammatory arthritis- may need to consider PRN colchicine use. -- May consider joint aspiration if recurring inflammatory symptoms/effusion -- Tylenol upto 1-2gm/day for OA -- RTC in 3-4 months, sooner if needed The assessment and plan, risk and benefits were discussed with the patient. All of the patients questions were answered and patient agrees to the plan. Barry Solorio DO Division of Rheumatology [facility] Chief Complaint Patient is here for follow up for hand/finger pain and states that he is doing somewhat better and is taking 1 Tylenol twice a day. History of Present [id number] Y M with PMHX of DM, HTN, A fibrillation (on xarelto, s/p ablation), has cardiac pacemaker, ALISHA returns for follow up. Presenting symptoms: Patient states couple months ago he started to experience localized pain, swelling, stiffness around the left wrist and dorsum of the hand with associated difficulty making a fist. The symptoms are intermittent, the stiffness improves with activity and mostly localized to the left with mild symptoms on the right. 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 He does not take any Tylenol or NSAIDs on regular basis. 3 weeks ago he was working in yard chopping wood and started to have allergy symptoms for which he recently saw his primary care doctor and was prescribed prednisone 20 mg once a day. Patient states he started this last night and did notice an improvement in the stiffness swelling and pain at his wrist and the hand. He denies significant symptoms of neck pain, shoulder pain, hip involvement. He has chronic low back pain related to degenerative disc disease and has had back surgeries in the past (last three years ago). History of left knee replacement. He currently complains of intermittent right knee pain. No significant swelling He has chronic neuropathy in left foot- on gabapentin 600mg 3 times a day Has been taking tylenol 1 tab at night and it helps. Has had issues with left elbow bursitis sees orthopedics. This has previously been drained 3 times however recurs and more recently had a procedure done with removal of the bursa sac. It appears to be healing but he still has stitches in place. He denies prior history of gout, unsure if he has had fluid analysis on the aspirations/bursa. Denies recent fevers. Pertinent SHX: Other than left knee replacement, back surgery denies other joint surgeries SocHX: Denies smoking, ETOH use or recreational drug use. Amiodarone was started recently, no other new medications. He is on a stable dose of atorvastatin. 02/12/23: Pt reports doing well, he takes Tylenol 1gm daily and it has been helping with joint pain in his hands and at the knees. No knee swelling. Denies any other symptoms today. Active Problems Problems Acute non-recurrent maxillary sinusitis (461.0) (J01.00) Afib (427.31) (I48.91) Arthropathy of left shoulder (716.91) (M19.012) Arthropathy of right knee (716.86) (M17.11) Arthropathy of right shoulder (716.91) (M19.011) Atypical chest pain (786.59) (R07.89) Bilateral renal stones (592.0) (N20.0) BPH (benign prostatic hyperplasia) (600.00) (N40.0) Bradycardia (427.89) (R00.1) Bronchial pneumonia (485) (J18.0) Carpal tunnel syndrome of right wrist (354.0) (G56.01) Cervical spondylosis (721.0) (M47.812) Chest pain (786.50) (R07.9) Chronic diastolic congestive heart failure (428.32,428.0) (I50.32) Chronic low back pain (724.2,338.29) (M54.50,G89.29) Chronotropic incompetence (426.89) (I45.89) Colon cancer screening (V76.51) (Z12.11) Cough (786.2) (R05.9) Depression (311) (F32.A) Dizziness (780.4) (R42) Encounter for immunization (V03.89) (Z23) Encounter for prostate cancer screening (V (more content not included)... Normal [facility] ABDOMEN, CMPLT( ERECT/DECUB) on 02-10-2023 ABDOMEN, CMPLT( ERECT/DECUB) Patient Name: ROCIO SANDOVAL STUDY: ABDOMEN, CMPLT( ERECT/DECUB); 02/10/2023 12:33 am INDICATION: Constipation . COMPARISON: CT abdomen pelvis dated 01/27/2020. ACCESSION NUMBER(S): [id number] ORDERING CLINICIAN: ZORAIDA DIANA TECHNIQUE: Abdomen supine and upright views FINDINGS: ABDOMEN: Nonobstructive bowel gas pattern. There is some formed stool throughout the colon. No evidence of pneumoperitoneum. Osseous structures demonstrate no acute bony abnormalities. There is endplate degenerative change in the lower lumbar spine with disc space narrowing and osteophytosis. CHEST: Visualized lung bases are clear. There is a hiatal hernia better visualized on the prior CT scan. There is a partially visualized pacemaker. IMPRESSION: 1. Nonobstructive bowel gas pattern. MACRO: None Electronically signed by: DO Nilesh ORTIZ [facility] Provider Note - ED v3on 01-30 Provider Note - ED v3 Provider Note: Results/Vital Signs: Pediatric Clinical Scoring (ARISTEO) is no recent ARISTEO charted on this account Chart Review: ED NOTES ED NOTES: Source of Information: Patient. EMR was reviewed for previous records. HPI: Constipation. This 77-year-old white male presents to the ED with complaint of constipation he states that his symptoms began 2 days ago. She states that he feels as though he has a large stool balls in his rectal area. He has been treating himself at home with MiraLAX, tried to sell at suppositories without any relief he does admit to some diffuse lower abdominal pain. Denies any nausea or vomiting. He states that he has had issues with constipation in the past and was told to use MiraLAX but he had not been taking it for a while now. He denies any urinary symptoms, fever or chills or other systemic symptoms. He states that nothing seems to make his symptoms better or worse. PMH: Constipation, type 2 diabetes, hypertension, BPH, GERD, sleep apnea, bradycardia, atrial fibrillation PSH: Pacemaker placement, knee surgery, bursectomy Social Hx: The patient denies any use of tobacco, alcohol or illicit drugs. Fam: MEDS: Noted in the EMR. ALLERGIES: Noted in the EMR. PHYSICAL EXAM: General: Patient alert, awake, oriented X3, appears to be in no obvious distress, nontoxic, cooperative Skin: Warm. Dry. Intact. No rash. Eyes: PEARTLA, EOMIs intact, sclera white, conjunctiva clear HEENT: Atraumatic. Normo-cephalic. Oral and nasal mucosa pink and moist. Neck: Supple without meningismus, no lymphadenopathy. CV: Regular rate and rhythm without murmurs, heaves, lifts or thrills. Respiratory: Nonlabored breathing. There are no retractions or tachypnea. Lungs are clear to auscultation bilaterally. GI: Soft, mild tenderness noted in the lower quadrants of the abdomen without rebound or rigidity, without gross distention, bowel sounds present in all 4 quadrants. There is no pulsatile masses. There is no CVA tenderness. No rebound, rigidity or guarding. Rectal: Rectal examination was performed with RN present. There is a fair amount of stool in the rectal area but is not locked hard I did attempt to break up what I could palpate I was unable to pull any out digitally. MUSC: There is no joint swelling or bony tenderness on exam. Neuro: Cranial nerves II - XII grossly intact. No focal neurologic deficits are noted on exam. Lower extremities: There is no peripheral edema bilaterally, negative Homans sign. No palpable cords. Distal pulses are +2/4 and present in both lower extremities. Psych: Maintains eye contact. Cooperative. ED course: After the digital rectal examination was completed the patient attempted to have a bowel movement to no avail. X-rays of the abdomen were unremarkable for acute abnormality. He really did not want to be treated with an enema at this point time. Prior to discharging the patient home I did have a discussion with him about using MiraLAX and possible glycerin suppositories to help him in passing stool more comfortably. I also discussed with the patient his x-ray findings prior to discharging him home. Patient was referred back to his primary care doctor for follow-up and encouraged to continue using MiraLAX. This chart was dictated with the use of Bluetector software within the framework of the current electronic medical records software. Attempts were made to edit in real time, given time constraints there is the potential for inaccuracies in my dictation. Zoraida Diana, DO HISTORY OF PRESENTING ILLNESS ROCIO is a 77 year old Male and was seen by me at 09-Feb-2023 23:33 for a chief complaint of constipation (PT TO ED WITH C/O CONSTIPATION FOR PAST 2 DAYS, NO RELIEF WITH MIRALAX, METAMUCIL AND STOOL SOFTENERS.)(1). Triage Information: Most recent Vital Sign Value Date Temp (F): 97.2 02-09-2023 23:45 Temp (C): 36.2 02-09-2023 23:45 Heart Rate (beats/min): 73 02-09-2023 23:45 Respirations (breaths/min): 18 02-09-2023 23:45 SpO2 (%): 98 02-09-2023 23:45 BP Systolic (mm Hg): 153 02-09-2023 23:45 BP Diastolic (mm Hg): 72 02-09-2023 23:45 PAST MEDICAL HISTORY CURRENT OR FORMER SUBSTANCE USE: Tobacco/Nicotine Use: never smoker Alcohol Use: denies Drug Use: denies,ALLERGIES/INTOL ERANCES: No Known Allergies HEALTH HISTORY: Medical H (more content not included)... Normal [facility] Radiologyon 02-10-2023 XR Abdomen AP left lateral-decubitus Normal [facility] [place] [address] DO Work Phone: Triage - EDon 02-10-2023 Triage - ED Quick Triage: The patient and/or guardian verbally acknowledges placement for services into the following (when Urgent Care Service hours are operating):emergency department Chart Review: PRIMARY ASSESSMENT ROCIO SANDOVAL's primary assessment is Within Defined Limits. The airway is open and patent. Breathing spontaneous and unlabored with clear breath sounds bilaterally. Circulation is normal with good peripheral pulses. Skin is warm and dry and color is normal for race. ARRIVAL INFORMATION Means of Arrival: Ambulatory Mode of Arrival: private vehicle Arrival From: home Accompanied By: self and spouse/significant other Language: Spoken Language Preferred: [place] Reading Language Preferred: [place] School Transportation Supervisor Requested: no analyst business analysis was requested MDRO: History of MDRO: no Present on Arrival: Device Present on Arrival to ED: no CHIEF COMPLAINT ROCIO SANDOVAL is a Male patient with a chief complaint of constipation (PT TO ED WITH C/O CONSTIPATION FOR PAST 2 DAYS, NO RELIEF WITH MIRALAX, METAMUCIL AND STOOL SOFTENERS.). Triage Date/Time: 09-Feb-2023 23:33 PETE: 3 Pain Rating (0-10): 4 = Moderate Pain location: ABD/RECTAL Vital Signs: Temperature: 97.2F ( 36.2C) taken temporal Blood Pressure: 153/72 Mean: Heart Rate: 73 Respiratory Rate: 18 Pulse Oximetry: 98% on room air, no respiratory support. Height: 6 feet 2.00 inches. 187.9 CM Weight: 227.0 pounds. Calculated 103.0 kg. (scale measurement) Calculated BMI (kg/m2): 29.173 Calculated BSA (m2) 2.32 Hui Coma Scale: Best Eye Response: (E4) spontaneous Best Motor Response: (M6) obeys commands Best Verbal Response: (V5) oriented Hui Score: 15 Cough lasting greater than 3 weeks: no Patient immunocompromised related to: N/A Allergies: no Patient has homicidal thoughts: no Symptoms Are POSITIVE For: constipation. Symptoms Are Negative For: anorexia, diaphoresis, diarrhea, distention, fever, nausea, rectal blood and vomiting. Last Bowel Movement: 07-Feb-2023 Risk Screens Suicide Risk Screen In the Past Month: Have you wished you were or wished you could go to sleep and not wake up no In the Past Month: Have you had any actual thoughts of killing yourself no In Your Lifetime: Have you ever done anything, started to do anything, or prepared to do anything to end your life no Lloyd Fall Scale Screening Has the patient fallen before (or is the patient in the ED as a result of a fall) has not had a fall Does the patient have an impaired gait does not have impaired gait Is the patient cognitively impaired not cognitively impaired Interventions: Lloyd Fall Interventions: LOW INTERVENTIONS: *patient oriented to surroundings and call system, * patient/family falls education completed and documented, *patients fall status communicated during bedside handoff, *whiteboard updated, *mode of toileting discussed with patient, *bed in low position with brakes locked, *call light in reach, * non-skid footwear PAST MEDICAL HISTORY Immunization History: Last Known Tetanus Immunization: Unknown TRAVEL HISTORY Travel History Coronavirus Screening: no exposure or symptoms Travel Exposure History: NO travel to International locations in the past 30 days PAIN Pain Scale Used: AMMON Pain Rating (0-10): 4 = Moderate Past Medical History: Past Medical History Reviewedyes Pacemaker: Past Surgical History, Active, 14-Jul-2022 Atrial Fibrillation: Past Medical History, Active HTN: Past Medical History, Active Diabetes: Past Medical History, Active Tdap: Immunizations, Active, 14-Oct-2022 Electronic Signatures: Consuelo Stephens (RN) (Signed 09-Feb-2023 23:48) Authored: Quick Triage, Risk Screens, Pain, Arrival, ABCD, Immunizations, Travel History, Chart Review, Scores, Past Medical History Last Updated: 09-Feb-2023 23:48 by Consuelo Stephens (RN) [facility] Established Visit (Pain Medi cine)on 02-05-2023 Established Visit (Pain Medicine) Diagnoses/Problems 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) Lumbosacral spondylosis (721.3) (M47.817) Arthropathy of right knee (716.86) (M17.11) Orders 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 stenosis Renew: Gabapentin 600 MG Oral Tablet; TAKE 1 TABLET 4 TIMES DAILY Patient Discussion/Summary I discussed with the patient the likely etiology of his symptoms, as well as potential treatment options I addressed options with him. I will continue the gabapentin since it has been effective but we will increase it to 600 mg 4 times a day to try and get a more complete control of his symptoms. We discussed the pros and cons of this plan and he was in agreement with it. I advised him to continue with his home exercises and he will follow-up in 3 months or sooner if needed. Chief Complaint Pain F/U GABAPENTIN, HE IS STILL DOING WELL WITH GABAPENTIN HE STATES THERE ARE TIMES HE WILL TAKE AN EXTRA PILL TO GET TO SLEEP WHEN HIS LEFT FOOT STARTS TO TINGLE, REQUESTING A REFILL TO MAIL ORDER, HE HAS SOME ACHING DISCOMFORT TO THE LOWER BACK, HE USES HEAT FOR RELIEF WITH LOWER BACK IT IS BUILT INTO HIS LAY Z BOY CHAIR, TAKING TYLENOL TWICE A DAY NOW FOR HIS ARTHRITIS HE IS SEEING A NEW LINOLEUM TILE LAYER, HE USES HIS INVERSION TABLE PRN, CHIROPRACTIC ADJUSTMENTS FOR RELIEF,REPOSITIONS, SCORE 3/10 OSWESETRY DISABILITY INDEX=27% HE CAN WALK UP TO 1/2 MILE, HE CAN STAND UP TO 15 MIN, SITTING DEPENDS ON THE CHAIR HE WILL REPOSITION FREQUENTLY WHEN IT IS NOT HIS LAY Z BOY CHAIR HE NOTES HE HAD A STABBING PAIN TO THE LEFT ANKLE THIS MORNING WHILE HE WAS STANDING, SITTING NOW HE HAS A BIT OF TINGLING This is a 77-year-old male here for a follow-up appointment for chief complaint of low back and leg pain. He reports that since his last visit for the most part things have been manageable. He thinks the gabapentin has been quite helpful and he denies any side effects. He still has some symptoms that limit his function during the day and can also interrupt his sleep at night. He uses an inversion table and goes for chiropractic treatments which help. He has also seen a model artists'. He underwent a left elbow bursectomy and reports that has healed well. He denies new neurologic symptoms or issues with bladder or bowel control. The patient denies any additional numbness, tingling, weakness, or any loss of bladder or bowel control. The patient's past medical, social, and family history along with medications and allergies are available and were reviewed. Adult Risk Screening Living Will. Living Will: Living will on file. Healthcare POA: Health care proxy on file. Domestic Violence Screen: Does not feel threatened or abused physically, emotionally or sexually. Do you feel UNSAFE? The patient feels safe in the home. Depression/Suicide Screening: During the past 2 weeks, the patient has not felt down, depressed or hopeless. During the past 2 weeks, the patient has not felt little interest or pleasure in doing things. He does not have a risk of suicide. He has not had thoughts of harming others. History of Present Illness On a scale of 0 to 10, the patient rates the pain at 4. Pain Location: Low Back Pain and LEFT FOOT. Pain Quality: Aching. Sensory/ Motor: Stinging, Pins and [place] and LEFT FOOT. Timing/Duration: Intermittent and > 12 weeks duration. Controlled Substance: I have personally reviewed the [place]AR[place] report for ROCIO SANDOVAL. I have considered the risks of abuse, dependence, addiction and diversion. Exacerbating Factors: rest, motion, repetitive motion, sitting, standing, walking and ADL. Alleviating Factors: Medications, Moist Heat, Repositioning. 24 Hour Behavior: Symptoms are the same in the am. Symptoms are the same as the day progresses. Symptoms are the same in the pm. Symptoms are worse when lying down. LEFT FOOT. Review of Systems All 13 systems were reviewed and are within normal levels except as noted below or per HPI. Positive and pertinent negative responses are noted below or in the HPI. 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) (M19.012) Arthropathy of right shoulder (716.91) (M19.011) Atypical chest pain (786.59) (R07.89) Bilateral renal stones (592.0) (N20.0) BPH (benign prostatic hyperplasia) (600.00) (N40.0) Bradycardia (427.89) (R00.1) Bronchial pneumonia (485) (J18.0) Carpal tunnel syndrome of right wrist (354.0) (G56.01) Cervical spondylosis (721.0) (M47.812) Chest pain (786.50) (R07.9) Chronic diastolic congestive heart failure (428.32,428.0) (I50.32) Chronic low back pain (724.2,338.29) (M54.50,G89.29) Chronotropic incompetence (426.89) (I45.89) Colon cancer screening (V76.51) (Z12.11) Cough (786.2) (R05.9) Depression (311) (F32.A) Dizziness (780.4) (R42) Encounter for immunization (V03.89) (Z23) Encounter for prostate cancer screening (V (more content not included)... Normal [facility] Blood Urea Nitrogen, Serumon 01-26-2023 Urea nitrogen [Mass/Vol] 16 mg/dL 6 - 23 [facility] Work Phone: C Reactive Protein, Serumon 01-26-2023 CRP [Mass/Vol] 0.25 mg/dL [facility] Work Phone: Comment on above: REF VALUE< 1.00 Citrulline Antibodyon 2022 Cyclic citrullinated peptide IgG Qn <1 [facility] Work Phone: Comment on above: THE TEST FOR ANTIBOD IES SPECIFIC FOR CYCLICCITRULLINATED PEPTIDE (CCP) HAS SHOWN TO BEVALUABLE IN THE DIAGNOSIS OF RHEUMATOIDARTHRITIS. THE DIAGNOSTIC VALUE OFANTIBODIES TO CCP IN JUVENILE RHEUMATOIDARTHRITIS PATIENTS HAS NOT BEEN DETERMINED.ANTIBODIES TO CENTROMERE OR SS-A AND MYELOMA IGG MAY BE REACTIVE IN THIS ASSAY. REF VALUES NEGATIVE < 3 U/ML POSITIVE >=3 U/ML Creatine Kinase, Levelon CK [Catalytic activity/Vol] 51 U/L 0 - 325 -[facility] Work Phone: Creatinine, Serumon 01-27-20 Creatinine [Mass/Vol] 0.98 mg/dL See Below [facility] Work Phone: Comment on above: Reference Range: 0.5 0 - 1.30 Creatinine, Serum 78 {mL/min/1.73m2} >90 [facility] Work Phone: Comment on above: CALCULATIONS OF SETH MATED GFR ARE PERFORMED USING THE 2020 CKD-EPI STUDY REFIT EQUATION WITHOUT THE RACE VARIABLE FOR THE IDMS-TRACEABLE CREATININE METHODS.https://jasn.asnjournals.org/content//A SN.0689550936 Hepatic Function Panelon Albumin BCP dye [Mass/Vol] 4.2 g/dL 3.4 - 5.0 -[facility] Work Phone: ALP [Catalytic activity/Vol] 63 U/L 33 - 136 [facility] Work Phone: ALT With P-5'-P [Catalytic activity/Vol] 13 U/L 10 - 52 [facility] Work Phone: Comment on above: Patients treated wit h Sulfasalazine may generate falsely decreased results for ALT. AST With P-5'-P [Catalytic activity/Vol] 13 U/L 9 - 39 [facility] Work Phone: Bilirubin [Mass/Vol] 0.3 mg/dL 0.0 - 1.2 [facility] Work Phone: Bilirubin.direct [Mass/Vol] 0.1 mg/dL 0.0 - 0.3 [facility] Work Phone: Protein [Mass/Vol] 7.0 g/dL 6.4 - 8.2 [facility] Work Phone: Initial Visit (Rheumatology) on 01-26-2023 Initial Visit (Rheumatology) Diagnoses/Problems Assessed Knee pain, right (719.46) (M25.561) Pain in hand and fingers (729.5) (M79.643,M79.646) Orders Knee pain, right Xray Knee Complete 4 or more View; Status:Canceled; Perform: [facility]; Due:26Apr2023;Ordered; For:Knee pain, right; Ordered By:Barry Solorio; Laterality : Right Radiologist to Determine Optimal Study : Y What are the patient's signs and symptoms? : worsenign knee pain,intermittent swelling- evaluate for cppd, effusion, severity of OA Pain in hand and fingers Blood Urea Nitrogen, Serum; Status:Resulted - Requires Verification; Done: 26Jan2023 02:50PM Performed:[facility]; Due:26Apr2023;Ordered; For:Pain in hand and fingers; Ordered By:Barry Solorio; C Reactive Protein, Serum; Status:Resulted - Requires Verification; Done: 26Jan2023 02:50PM Performed:[facility]; Due:26Apr2023;Ordered; For:Pain in hand and fingers; Ordered By:Barry Solorio; Citrulline Antibody; Status:In Progress - Specimen/Data Collected; Done: 26Jan2023 Perform:Lab Services - Lab To Draw (Blood Test); Due:26Apr2023;Ordered; For:Pain in hand and fingers; Ordered By:Barry Solorio; Complete Blood Count; Status:Resulted - Requires Verification; Done: 26Jan2023 02:50PM Performed:[facility]; Due:26Apr2023;Ordered; For:Pain in hand and fingers; Ordered By:Barry Solorio; Creatine Kinase, Level; Status:Resulted - Requires Verification; Done: 26Jan2023 02:50PM Performed:[facility]; Due:26Apr2023;Ordered; For:Pain in hand and fingers; Ordered By:Barry Solorio; Creatinine, Serum; Status:Resulted - Requires Verification; Done: [id number] 02:50PM Performed:[facility]; Due:26Apr2023;Ordered; For:Pain in hand and fingers; Ordered By:Barry Solorio; Hepatic Function Panel; Status:Resulted - Requires Verification; Done: [id number] 02:50PM Performed:[facility]; Due:26Apr2023;Ordered; For:Pain in hand and fingers; Ordered By:Barry Solorio; Rheumatoid Factor, Serum or Plasma; Status:Resulted - Requires Verification; Done: [id number] 02:50PM Performed:[facility]; Due:26Apr2023;Ordered; For:Pain in hand and fingers; Ordered By:Barry Solorio; Sedimentation Rate, Erythrocyte; Status:Resulted - Requires Verification; Done: [id number] 02:50PM Performed:[facility]; Due:26Apr2023;Ordered; For:Pain in hand and fingers; Ordered By:Barry Solorio; Uric Acid, Serum; Status:Resulted - Requires Verification; Done: [id number] 02:50PM Performed:[facility]; Due:26Apr2023;Ordered; For:Pain in hand and fingers; Ordered By:Barry Solorio; Provider Impressions 77 Y M with PMHX of DM, HTN, A fibrillation (on xarelto, s/p ablation), has cardiac pacemaker, ALISHA presents for evaluation of joint pain and swelling. 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 Denies prior fluid analysis. Other differential is gout, will check uric acid. Pt has underlying OA which maybe contributing to some joint pain/stiffness. Lower clinical suspicion for RA (no significant symmetrical/MCP involvement). He denies recent fever, bacteremia, given multiple joints involved, less likely infectious etiology. -- Will obtain labs: CBC, BUN/Cr, uric acid, hepatic func, ESR, CRP, RF/CCP, CK -- Imaging of R knee, likely underlying OA, will check for CPPD -- PT is currently on Prednisone 20mg daily for allergy symptoms, he is noticing some improvement in his joint symptoms- he can complete this as previously instructed. We may need to consider PRN Colchicine. Will check CK -- May consider joint aspiration if recurring inflammatory symptoms/effusion -- He will also try Tylenol upto 2gm/day for OA -- RTC in 2-3 weeks The assessment and plan, risk and benefits were discussed with the patient. All of the patients questions were answered and patient agrees to the plan. Barry Solorio DO Division of Rheumatology [facility] Chief Complaint Presents for bilateral hand pain. Left worse than right. History of Present [id number] Y M with PMHX of DM, HTN, A fibrillation (on xarelto, s/p ablation), has cardiac pacemaker, ALISHA presents for evaluation of joint pain and swelling. Presenting symptoms: Patient states couple months ago he started to experience localized pain, swelling, stiffness around the left wrist and dorsum of the hand with associated difficulty making a fist. The symptoms are intermittent, the stiffness improves with activity and mostly localized to the left with mild symptoms on the right. 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 He does not take any Tylenol or NSAIDs on regular basis. 3 weeks ago he was working in yard chopping wood and started to have (more content not included)... Normal [facility] KNEE 3 VIEWSon 01-26-2023 KNEE 3 VIEWS Patient Name: ROCIO SANDOVAL STUDY: KNEE; 3 VIEWS; 01/26/2023 3:18 pm INDICATION: worsenign knee pain,intermittent swelling- evaluate for cppd, effusion, severity of OA M25.561: Knee pain, right. COMPARISON: None. ACCESSION NUMBER(S): [id number] ORDERING CLINICIAN: BARRY SOLORIO FINDINGS: Right knee, three views There is severe chondrocalcinosis. There is moderate joint space narrowing of the fibers in medial compartment with a small effusions present. Vascular calcifications present as well. Extensor mechanism enthesophytes formation. IMPRESSION: Moderate medial compartment arthritis. 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 5 - 14.5 Hematocrit (Bld) [Volume fraction] 38.2 % below low threshold See Below [facility] Work Phone: Comment on above: Reference Range: 41. 0 - 52.0 Hemoglobin (Bld) [Mass/Vol] 11.6 g/dL below low threshold See Below [facility] Work Phone: Comment on above: Reference Range: 13. 5 - 17.5 MCHC (RBC) [Mass/Vol] 30.4 g/dL below low threshold See Below [facility] Work Phone: Comment on above: Reference Range: 32. 0 - 36.0 MCV (RBC) [Entitic vol] 98 fL 80 - 100 [facility] Work Phone: Platelets (Bld) [#/Vol] 352 10*3/uL 150 - 450 [facility] Work Phone: RBC (Bld) [#/Vol] 3.88 {x10E12/L} below low threshold See Below [facility] Work Phone: Comment on above: Reference Range: 4.5 0 - 5.90 WBC (Bld) [#/Vol] 11.2 10*3/uL 4.4 - 11.3 [facility] Work Phone: Radiologyon 01-26-2023 XR Knee 3 Views Please click on the link to view the study images Normal [facility] [facility] DO Work Phone: XR Knee 3 Views Normal [facility] Work Phone: Rheumatoid Factor, Serum or Plasmaon 01-26-2023 Rheumatoid factor Nephelometry Qn (S) <10 0 - 15 [facility] Work Phone: Sedimentation Rate, Erythroc yteon 01-26-2023 ESR (Bld) [Velocity] 20 mm/h 0 - 20 [facility] Work Phone: Comment on above: Please note new refe rence ranges as of 11/07/2021. Uric Acid, Serumon Urate [Mass/Vol] 3.3 mg/dL below low threshold 4.0 - 7.5 [facility] Work Phone: Comment on above: Venipuncture immedia tely after or during the administration of Metamizole may lead to falsely low results. Testing should be performed immediately prior to Metamizole dosing. No Panel Informationon 12-31 [facility] SM Jt Injection/Arthrocentes is: L thumb MCPon 12-31-2022 Yaritza Luna CNP 12/31/2022 9:24 PM SM Jt Injection/Arthrocentes is: L thumb MCP Performed by: Yaritza Luna CNP Authorized by: Yaritza Luna CNP CPT 83234 - Small Joint Arthrocentesis: Consent given by: Patient Time out: Immediately prior to the procedure a time out was called Physician or proceduralist has discussed critical or nonroutine steps, procedure duration and anticipated blood loss: Yes Supporting Documentation: Indications: Pain, joint swelling and diagnostic evaluation Procedure Details: Location: Thumb Site: L thumb MCP Prep: patient was prepped and draped in usual sterile fashion Needle size: 25 G Approach: Dorsal Medications: 10 mg triamcinolone acetonide 40 mg/mL Anesthetic used:: Lidocaine 1% Anesthetic amount (mL): 1 Patient tolerance: Patient tolerated the procedure well with no immediate 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s [facility] SM Jt Injection/Arthrocentes is: R thumb MCPon 12-31-2022 Yaritza Luna CNP 12/31/2022 9:24 PM SM Jt Injection/Arthrocentes is: R thumb MCP Performed by: Yaritza Luna CNP Authorized by: Yaritza Luna CNP CPT 91882 - Small Joint Arthrocentesis: Consent given by: Patient Time out: Immediately prior to the procedure a time out was called Physician or proceduralist has discussed critical or nonroutine steps, procedure duration and anticipated blood loss: Yes Supporting Documentation: Indications: Pain, joint swelling and diagnostic evaluation Procedure Details: Location: Thumb Site: R thumb MCP Prep: patient was prepped and draped in usual sterile fashion Needle size: 25 G Approach: Dorsal Medications: 10 mg triamcinolone acetonide 40 mg/mL Anesthetic used:: Lidocaine 1% Anesthetic amount (mL): 1 Patient tolerance: Patient tolerated the procedure well with no immediate 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s [facility] No Panel Informationon 11-07 Yaritza Luna CNP 11/07/2022 4:44 PM MD [place] Injection/Arthrocentes is: L olecranon bursa Performed by: Yaritza Luna CNP Authorized by: Yaritza Luna CNP CPT 68217 - Medium Joint Arthrocentesis: Consent given by: Patient Time out: Immediately prior to the procedure a time out was called Physician or proceduralist has discussed critical or nonroutine steps, procedure duration and anticipated blood loss: Yes Supporting Documentation: Indications: Joint swelling and diagnostic evaluation Procedure Details: Location: Elbow Site: L olecranon bursa Prep: patient was prepped and draped in usual sterile fashion Needle size: 18 G Aspirate amount (ml): 15 Aspirate: Yellow and clear Lab: fluid sent for laboratory analysis Patient tolerance: Patient tolerated the procedure well with no immediate 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s 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 With regard to his chronic pain issues she is doing reasonably well so we will not make any changes other than increasing the gabapentin a bit more to 600 mg 3 times a day. We can repeat injections in the future if needed. His biggest issue now is his left elbow and he will be following up with his orthopedist in the near future. I advised him to continue with his home exercises and I will see him for follow-up in 3 months or sooner if needed. Chief Complaint FUV he reports adding the 3rd dose of GPN really helped his pain today reports having pain in bilat shoulders, upper back below scapula across bilat aides, and lower back above belt line describes as an ache rates 6-7/10. It affects his ADLs as he has trouble standing 1/2 hour and can only walk 1/2 mile and sitting up right due to the pain, bilat shoulders hurt all of the time.. He gets relief with sitting in a reclining position and the GPN helps his pain. He will need a RF on GPN send to [facility]. Oswestry Disability Index evaluation tool completed by patient score 28 out of 100. This is a 77-year-old male here for a follow-up appointment for chief complaint of low back, mid back, and shoulder pain. He reports that since his last visit the shoulder pain has been manageable and the injections reduced the pain and improved his function by about 60%. He thinks the increased dose of gabapentin has helped a lot. He reports his spine pain is manageable as well. His main issue is bursitis in the left elbow. He is following with Dr. Hsu's office and has had it drained a couple of times. He is going to see them again tomorrow. They are trying to get it MRI but they are having some issues getting it done due to his pacemaker. He denies new neurologic symptoms or issues with bladder or bowel control. The patient denies any additional numbness, tingling, weakness, or any loss of bladder or bowel control. The patient's past medical, social, and family history along with medications and allergies are available and were reviewed. Adult Risk Screening Living Will. Living Will: Living will on file. Healthcare POA: Health care proxy on file. Domestic Violence Screen: Does not feel threatened or abused physically, emotionally or sexually. Do you feel UNSAFE? The patient feels safe in the home. Depression/Suicide Screening: He does not have a risk of suicide. He has not had thoughts of harming others. Reference Documentation See scanned note Oswestry Disability Index evaluation tool completed by patient . History of Present Illness On a scale of 0 to 10, the patient rates the pain at 7. Pain Location: Low Back Pain, Upper Back Pain and across both sides under scapula and above belt line bilat shoulders. Pain Quality: Aching. Pain Radiation: none. Sensory/ Motor: Numbness and lt foot on lateral side of foot and 5th toe ongoing. Timing/Duration: Constant and > 12 weeks duration. Controlled Substance: I have personally reviewed the OARRS report for ROCIO SANDOVAL. I have considered the risks of abuse, dependence, addiction and diversion. Exacerbating Factors: motion, standing, stairs and walking. Alleviating Factors: Medications, Repositioning, Other: ___. Review of Systems All 13 systems were reviewed and are within normal levels except as noted below or per HPI. Positive and pertinent negative responses are noted below or in the HPI. 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) (M19.012) Arthropathy of right shoulder (716.91) (M19.011) Atypical chest pain (786.59) (R07.89) Bilateral renal stones (592.0) (N20.0) BPH (benign prostatic hyperplasia) (600.00) (N40.0) Bradycardia (427.89) (R00.1) Bronchial pneumonia (485) (J18.0) Carpal tunnel syndrome of right wrist (354.0) (G56.01) Cervical spondylosis (721.0) (M47.812) Chest pain (786.50) (R07.9) Chronic diastolic congestive heart failure (428.32,428.0) (I50.32) Chronic low back pain (724.2,338.29) (M54.50,G89.29) Chronotropic incompetence (426.89) (I45.89) Colon cancer screening (V76.51) (Z12.11) Cough (786.2) (R05.9) Depression (311) (F32.A) Dizziness (780.4) (R42) Encounter for immunization (V03.89) (Z23) Encounter for prostate cancer screening (V76.44) (Z12.5) Erectile dysfunction (607.84) (N52. (more content not included)... Normal [facility] Provider Note - ED v3on 04- Provider Note - ED v3 Provider Note: Chart Review: ED NOTES ED NOTES: ====HPI==== Patient is a 77-year-old male who presents to the emergency department with a laceration to his left wrist. He states that he was sharpening a blade and his back grinder accidentally lacerated his left wrist. He is not up-to-date on his tetanus immunization. He denies any other injuries. Full range of motion. He is on Xarelto as he has a history of atrial fibrillation. No alleviating or exacerbating factors. PMHX: BPH, HTN, Diabetes, Sleep apnea Social HX: Never smoker TOBACCO Denies ETOH Denies DRUGS ====Review of Systems==== 10 point system review is negative except for those specifically mentioned in history of present illness ====Physical Exam==== Constitutional/General : Alert and oriented x3, well appearing, nontoxic, and in NAD. Head: Normocephalic and atraumatic. Eyes: PERRL, EOMI, conjunctive normal, sclera nonicteric, subconjunctival layer is pink. Mouth: Oropharynx clear, handling secretions, no trismus, no asymmetry of the posterior oropharynx or uvular edema Neck: Supple, full ROM, non tender to palpation in the midline, no stridor, no crepitus, no meningeal signs. Trachea at midline. Respiratory: Lungs clear to auscultation bilaterally, no wheezes, rales, or rhonchi, not in respiratory distress. Cardiovascular: Regular rate, regular rhythm, no murmurs, gallops, or rubs, 2+ distal pulses. Chest: normal chest wall movement GI: Abdomen soft, nontender, nondistended, no organomegaly, no palpable masses, no rebound, guarding, or rigidity. Musculoskeletal: Moves all extremities x4, warm and well perfused, no clubbing, cyanosis, or edema, cap refill <3 seconds Integument: 2.5 cm laceration to the left wrist. Full ROM. Distal pulses strong. Skin warm and dry, no rashes. Neurologic: GCS 15, no focal deficits, symmetric strength 5/5 in the upper and lower extremities bilaterally. Psychiatric: Normal affect. ====ED Course and Medical Decision Making==== See MDM section for review of findings & plan of care. Portions of this note were dictated by speech recognition. An attempt at proof reading was made to minimize errors. Minor errors in scrum project manager may be present. Please call if questions.. HISTORY OF PRESENTING ILLNESS ROCIO is a 77 year old Male and was seen by me at 14-Oct-2022 17:57 for a chief complaint of lacerations (Laceration to left wrist. Pt states that he was sharpening some blades and the back grinder got away from him. Pt states that he also a small lac on his forearm from a fall a couple weeks ago)(1). Triage Information: Most recent Vital Sign Value Date Temp (F): 98 10-14-2022 18:02 Temp (C): 36.6 10-14-2022 18:02 Heart Rate (beats/min): 76 10-14-2022 18:02 Respirations (breaths/min): 16 10-14-2022 18:02 SpO2 (%): 97 10-14-2022 18:02 BP Systolic (mm Hg): 137 10-14-2022 18:02 BP Diastolic (mm Hg): 66 10-14-2022 18:02 PAST MEDICAL HISTORY ALLERGIES/INTOLERANCES : No Known Allergies HEALTH HISTORY: Medical History Name:BPH (benign prostatic hyperplasia) Code:N40.0 Name:Diabetes Code:E11.9 Name:GERD (gastroesophageal reflux disease) Code:K21.9 Name:Hypertension Code:I10 Name:Sleep apnea Code:G47.30 Name:Status post left heart catheterization Code:Z98.890 OUTPATIENT MEDICATIONS: Home Medications Review Status for Reconciliation: N/A Med Status: Incomplete Medication History Drug Name: Multiple Vitamins oral tablet Instructions: 1 tab(s) orally once a day Drug Name: traZODone 50 mg oral tablet Instructions: 25 milligram(s) orally once a day (at bedtime) Drug Name: atorvastatin 40 mg oral tablet Instructions: 1 tab(s) orally once a day (at bedtime) Drug Name: Eye Multivitamin oral tablet Instructions: 1 tab(s) orally once a day Drug Name: Neuriva Brain performance Plus Therapeutic Multiple Vitamins oral capsule Instructions: 1 cap(s) orally once a day Drug Name: ZyrTEC 10 mg oral tablet Instructions: 1 tab(s) orally once a day Drug Name: Melatonin 5 mg oral tablet Instructions: 1 tab(s) orally once a day (at bedtime) Drug Name: Jardiance 25 mg oral tablet Instructions: 1 tab(s) orally once a day (in the morning) Drug Name: metFORMIN 750 mg oral tablet, extended release Instructions: 1 tab(s) orally 2 times a day Drug Name: tamsulosin 0.4 mg oral capsule Instructions: 1 cap(s) orally once a day Drug Name: omeprazole 40 mg oral delayed release capsule Instructions: 1 cap(s) orally once a day Drug Name: furosemide 20 mg oral tablet Instructions: 1 tab(s) orally every other day Drug Name: gabapentin 400 mg oral capsule Instructions: 1 cap(s) orally 3 times a day Drug Name: lisinopril 10 mg oral tablet Instructions: 1 tab(s) orally once a day Drug Name: amiodarone 200 mg oral tablet Instructions: 0.5 tab(s) orally once a day Drug Name: acetaminophen 325 mg (more content not included)... Normal [facility] Risk Screen - Adult Emergenc yon 10-14-2022 Risk Screen - Adult Emergency Preferred Language: Preferred Language: Preferred Language for Discussing Health Care ([facility]designee)[facility] Patient Preferred Pharmacy: Patient Preferred Pharmacy Statement: I have reviewed and updated the patient's preferred pharmacy selection for today's visit. Advanced Directives: Advance Directive/DNRyes Family Violence Adult: Abuse Screen: Are you or have you been threatened or abused physically, emotionally, or sexually by anyoneno Learning Assessment (Patient): Learning Assessment (Patient): Patient is Able to be Assessed for Learningyes Factors Influencing Readiness to Learnna Factors that Impact Ability to Learnnone Devices/Methods Used to Communicatenone Learning Preferencesverbal instruction; written material Cultural Considerationsnone Developmental Considerationsnone Latter Day Considerationsnone Other Learnersfriend Learning Assessment (Other Learner): Learning Assessment (Other Learner): Other learner availableno Pressure Injury/TB/Substance: Pressure Injury: Pressure Injury Present on Admissionno Do you have a coughno Smoking Statusnever smoker Alcohol Usedenies Drug Usedenies Drug 2 Usedenies Admission Risk Screen: Significant IndicatorsComplete CAGE: CAGE: Is this an injured patient at a [place] Center [place]/[place]/Mode): no Electronic Signatures: Chantal Patrick (RN) (Signed 14-Oct-2022 18:07) Authored: Preferred Language, Patient Preferred Pharmacy, Advanced Directives, Family Violence Adult, Learning Assessment (Patient), Learning Assessment (Other Learner), Pressure Injury/TB/Substance, Pressure Injury, CAGE Last Updated: 14-Oct-2022 18:07 by Chantal Patrick (ISMAEL) [facility] Triage - EDon 10-14-2022 Triage - ED Chart Review: ARRIVAL INFORMATION Mode of Arrival: private vehicle CHIEF COMPLAINT ROCIO SANDOVAL is a Male patient with a chief complaint of lacerations (Laceration to left wrist. Pt states that he was sharpening some blades and the back grinder got away from him. Pt states that he also a small lac on his forearm from a fall a couple weeks ago). Triage Date/Time: 14-Oct-2022 18:02 PETE: 4 Pain Rating (0-10): 5 = Moderate Vital Signs: Temperature: 98.0F ( 36.6C) taken forehead Blood Pressure: 137/66 Mean: Heart Rate: 76 Respiratory Rate: 16 Pulse Oximetry: 97% Height: 6 feet 2.00 inches. 187.9 CM Weight: 217.3 pounds. Calculated 98.6 kg. (stated) Calculated BMI (kg/m2): 27.926 Calculated BSA (m2) 2.27 Hui Coma Scale: Best Eye Response: (E4) spontaneous Best Motor Response: (M6) obeys commands Best Verbal Response: (V5) oriented [place] Score: 15 Cough lasting greater than 3 weeks: no Patient immunocompromised related to: N/A Allergies: no Patient has homicidal thoughts: no Symptoms Are POSITIVE For: laceration. Symptoms Are Negative For: abrasion, avulsion, bleeding, bruising, fever, lump, redness, swelling and discharge. Risk Screens Suicide Risk Screen In the Past Month: Have you wished you were or wished you could go to sleep and not wake up no In the Past Month: Have you had any actual thoughts of killing yourself no In Your Lifetime: Have you ever done anything, started to do anything, or prepared to do anything to end your life no Interventions: Lloyd Fall Interventions: MODERATE INTERVENTIONS: *Low Interventions Plus: * falls risk band/sticker applied to patient, *yellow non-skid footwear, *instruct to call for assistance before getting out of bed, *bed/chair/bedside commode/toilet alarms, *sensory devices/ambulatory aides available and in reach, *medications reviewed for potential side effects and care planning. TRAVEL HISTORY Travel History Coronavirus Screening: no exposure or symptoms Travel Exposure History: NO travel to International locations in the past 30 days PAIN Pain Scale Used: AMMON Pain Rating (0-10): 5 = Moderate Past Medical History: Past Medical History Reviewedno Electronic Signatures: Chantal Patrick (ISMAEL) (Signed 14-Oct-2022 18:06) Authored: Quick Triage, Risk Screens, Pain, Travel History, Chart Review, Scores, Past Medical History Last Updated: 14-Oct-2022 18:06 by Chantal Patrick (ISMAEL) [facility] MD [place] Injection/Arthrocentes is: R radiocarpalon 10-07-2022 Yaritza Luna CNP 10/07/2022 11:26 AM MD [place] Injection/Arthrocentes is: R radiocarpal Performed by: Yaritza Luna CNP Authorized by: Yaritza Luna CNP CPT 81717 - Medium Joint Arthrocentesis: Consent given by: Patient Time out: Immediately prior to the procedure a time out was called Physician or proceduralist has discussed critical or nonroutine steps, procedure duration and anticipated blood loss: Yes Supporting Documentation: Indications: Pain and diagnostic evaluation Procedure Details: Location: Wrist Site: R radiocarpal Prep: patient was prepped and draped in usual sterile fashion Needle size: 22 G Approach: Dorsal Medications: 40 mg triamcinolone acetonide 40 mg/mL Anesthetic amount (mL): 1 Patient tolerance: Patient tolerated the procedure well with no immediate 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s [facility] C Reactive Protein, Serumon 10-03-2022 CRP [Mass/Vol] 0.13 mg/dL [facility] Congestive Heart Failure [address] Work Phone: Comment on above: REF VALUE< 1.00 Hemoglobin A1Con 10-03-2022 Glucose [Mass/Vol] 151 mg/dL [facility] Heart Failure [address] Work Phone: HbA1c (Bld) [Mass fraction] 6.9 % Abnormal [facility] Heart [address] Work Phone: Comment on above: Diagnosis of Diabete s-Adults Non-Diabetic: < or = 5.6% Increased risk for developing diabetes: 5.7-6.4% Diagnostic of diabetes: > or = 6.5%. Monitoring of Diabetes Age (y) Therapeutic Goal (%) Adults: >18 <7.0 Pediatrics: 13-18 <7.5 7-12 <8.0 0- 6 7.5-8.5 [employer]. Diabetes Care 33(S1), Jul 2009. Laboratory - Chemistry and C hemistry - challengeon 10-03-2022 Albumin BCP dye [Mass/Vol] 4.1 g/dL 3.4 - 5.0 [facility] Heart Failure [address] Work Phone: Albumin Ql (U) 32.8 mg/L See Below [facility] Heart Failure [address] Work Phone: Comment on above: Reference Range: Not Established Albumin/Creatinine DL <= 20 mg/L (U) [Mass ratio] 46.9 {ug/mg_crt} above high threshold 0.0 - 30.0 [facility] Heart Failure [address] Work Phone: ALP [Catalytic activity/Vol] 58 U/L 33 - 136 [facility] Heart Failure [address] Work Phone: ALT With P-5'-P [Catalytic activity/Vol] 13 U/L 10 - 52 [facility] Heart [address] Work Phone: Comment on above: Patients treated wit h Sulfasalazine may generate falsely decreased results for ALT. Anion gap [Moles/Vol] 12 mmol/L 10 - 20 [facility] Heart Failure [address] Work Phone: AST With P-5'-P [Catalytic activity/Vol] 13 U/L 9 - 39 [facility] Heart Failure [address] Work Phone: Bilirubin [Mass/Vol] 0.6 mg/dL 0.0 - 1.2 [facility] Heart Failure [address] Work Phone: Calcium [Mass/Vol] 9.0 mg/dL 8.6 - 10.3 [facility] Congestive Heart Failure [address] Work Phone: Chloride [Moles/Vol] 104 mmol/L 98 - 107 [facility] Heart Failure [address] Work Phone: CO2 [Moles/Vol] 28 mmol/L 21 - 32 [facility] Heart Failure [address] Work Phone: Creatinine (U) [Mass/Vol] 70.0 mg/dL See Below [facility] Heart Failure [address] Work Phone: Comment on above: Reference Range: 20. 0 - 370.0 Creatinine [Mass/Vol] 1.03 mg/dL See Below [facility] Heart Failure [address] Work Phone: Comment on above: Reference Range: 0.5 0 - 1.30 Glucose [Mass/Vol] 107 mg/dL above high threshold 74 - 99 [facility] Heart Failure [address] Work Phone: Potassium [Moles/Vol] 4.5 mmol/L 3.5 - 5.3 [facility] Heart Failure [address] Work Phone: Protein [Mass/Vol] 6.9 g/dL 6.4 - 8.2 [facility] Heart Failure [address] Work Phone: Sodium [Moles/Vol] 139 mmol/L 136 - 145 [facility] Heart Failure [address] Work Phone: Urea nitrogen [Mass/Vol] 24 mg/dL above high threshold 6 - 23 [facility] Congestive Heart Failure [address] Work Phone: Lipid Panelon 10-03-2022 Cholesterol [Mass/Vol] 129 mg/dL 0 - 199 [facility] Heart Failure [address] Work Phone: Comment on above: . AGE DESIRABLE BORD SERGIO HIGH HIGH 0-19 Y 0 - 169 170 - 199 >/= 200 20-24 Y 0 - 189 190 - 224 >/= 225 >24 Y 0 - 199 200 - 239 >/= 240 All ranges are based on fasting samples. Specific therapeutic targets will vary based on patient-specific cardiac risk.. Pediatric guidelines reference:Pediatrics 2011, 128(S5). Adult guidelines reference: NCEP ATPIII Guidelines, ASHOK 2001, 258:2486-97. Venipuncture immediately after or during the administration of Metamizole may lead to falsely low results. Testing should be performed immediately prior to Metamizole dosing. Cholesterol in HDL [Mass/Vol] 59.0 mg/dL [facility] Heart [address] Work Phone: Comment on above: . AGE VERY LOW LOW N ORMAL HIGH 0-19 Y < 35 < 40 40-45 ---- 20-24 Y ---- < 40 >45 ---- >24 Y ---- < 40 40-60 >60. Cholesterol in LDL [Mass/Vol] 55 mg/dL 0 - 99 [facility] Heart [address] Work Phone: Comment on above: . NEAR BORD AGE SHLOMO RABLE OPTIMAL HIGH HIGH VERY HIGH 0-19 Y 0 - 109 --- 110-129 >/= 130 ---- 20-24 Y 0 - 119 --- 120-159 >/= 160 ---- >24 Y 0 - 99 100-129 130-159 160-189 >/=190. Cholesterol.total/Chol esterol in HDL [Mass ratio] 2.2 {ratio} [facility] Heart [address] Work Phone: Comment on above: REF VALUESDESIRABLE < 3.4HIGH RISK > 5.0 Triglyceride [Mass/Vol] 74 mg/dL 0 - 149 [facility] Congestive Heart Failure [address] Work Phone: Comment on above: . AGE DESIRABLE BORD SERGIO HIGH HIGH VERY HIGH 0 D-90 D 19 - 174 ---- ---- ----91 D- 9 Y 0 - 74 75 - 99 >/= 100 ---- 10-19 Y 0 - 89 90 - 129 >/= 130 ---- 20-24 Y 0 - 114 115 - 149 >/= 150 ---- >24 Y 0 - 149 150 - 199 200- 499 >/= 500. Venipuncture immediately after or during the administration of Metamizole may lead to falsely low results. Testing should be performed immediately prior to Metamizole dosing. Lipid Panel 15 mg/dL 0 - 40 [facility] Congestive Heart Failure [address] Work Phone: MAGNESIUMon 10-03-2022 Magnesium [Mass/Vol] 2.41 mg/dL High 1.60 - 2.40 [facility] Comment on above: Performed By: #### M G #### [place] [address] Magnesium, Serumon Magnesium [Mass/Vol] 2.41 mg/dL above high threshold See Below [facility] Congestive Heart Failure [address] Work Phone: Comment on above: Reference Range: 1.6 0 - 2.40 Narrative Note - Outpatient- Heart Failureon 10-03-2022 Narrative Note - Outpatient-Heart Failure Narrative Note: Discipline/ClinicHeart Failure Description Rocio arrived ambulatory to the Heart Failure Clinic for his scheduled visit. States he is feeling good. Denies increased shortness of breath, PND, or Orthopnea. Uses CPAP nightly. Eating and sleeping without distress. Home medications reviewed with no changes. Amiodarone protocol labs and OP labs were drawn today and results were called to Dr. Stroud. Plan is to continue current regimen and follow up in 6 months with amiodarone protocol labs EKG and CXR. Reviewed signs and symptoms of increased heart failure and when to call for help. Vitals: BP: 109/68 HR: 69 Resp: 18 SPO2: 96%on room air Weight: 223.8lbs Previous Weight: 222.0lbs Lung Sounds: clear Edema: none JVD: absent Labs: Mag & OP labs Medications Administered: none Next Appointment Date: April 10, 2023@ 8:30 Note in EMR for treating Physician: Dr. Stroud In-House Supervising Physician: Dr. Clifford Electronic Signatures: Seda Donahue (RN) (Signed 03-Oct-2022 09:08) Authored: Narrative Note - OP Last Updated: 03-Oct-2022 09:08 by Seda Donahue (RN) [facility] No Panel Informationon 10-03 74 {mL/min/1.73m2} >90 [facility] Congestive Heart Failure [address] Work Phone: Comment on above: CALCULATIONS OF SETH MATED GFR ARE PERFORMED USING THE 2020 CKD-EPI STUDY REFIT EQUATION WITHOUT THE RACE VARIABLE FOR THE IDMS-TRACEABLE CREATININE METHODS.https://jasn.asnjournals.org/content/early//A SN.2826852819 Sedimentation Rate, Erythroc yteon 10-03-2022 ESR (Bld) [Velocity] 42 mm/h above high threshold 0 - 20 [facility] Congestive Heart Failure [address] Work Phone: TSH - Thyroid Stimulating Ho rmone, Serumon 10-03-2022 TSH Qn 3.09 m[IU]/L See Below [facility] Congestive Heart Failure [address] Work Phone: Comment on above: Reference Range: 0.4 4 - 3.98 TSH testing is performed using different testing methodology at [facility] than at other [facility]. Direct result comparisons should only be made within the same method. Vitamin B12, Serumon 023 Cobalamin (Vitamin B12) [Mass/Vol] 350 pg/mL 211 - 911 [facility] Congestive Heart Failure [address] Work Phone: No Panel Informationon 09-19 [facility] SM Jt Injection/Arthrocentes is: L thumb MCPon 09-19-2022 Yaritza Luna, GIO 09/19/2022 12:12 PM SM Jt Injection/Arthrocentes is: L thumb MCP Performed by: Yaritza Luna CNP Authorized by: Yaritza Luna CNP CPT 77194 - Small Joint Arthrocentesis: Consent given by: Patient Time out: Immediately prior to the procedure a time out was called Physician or proceduralist has discussed critical or nonroutine steps, procedure duration and anticipated blood loss: Yes Supporting Documentation: Indications: Pain, joint swelling and diagnostic evaluation Procedure Details: Location: Thumb Site: L thumb MCP Prep: patient was prepped and draped in usual sterile fashion Needle size: 25 G Approach: Dorsal Medications: 40 mg triamcinolone acetonide 40 mg/mL Anesthetic used:: Lidocaine 1% Anesthetic amount (mL): 1 Patient tolerance: Patient tolerated the procedure well with no immediate 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s [facility] SM Jt Injection/Arthrocentes is: R thumb MCPon 09-19-2022 Yaritza Luna CNP 09/19/2022 12:12 PM SM Jt Injection/Arthrocentes is: R thumb MCP Performed by: Yaritza Luna CNP Authorized by: Yaritza Luna CNP CPT 04101 - Small Joint Arthrocentesis: Consent given by: Patient Time out: Immediately prior to the procedure a time out was called Physician or proceduralist has discussed critical or nonroutine steps, procedure duration and anticipated blood loss: Yes Supporting Documentation: Indications: Pain, joint swelling and diagnostic evaluation Procedure Details: Location: Thumb Site: R thumb MCP Prep: patient was prepped and draped in usual sterile fashion Needle size: 25 G Approach: Dorsal Medications: 40 mg triamcinolone acetonide 40 mg/mL Anesthetic used:: Lidocaine 1% Anesthetic amount (mL): 1 Patient tolerance: Patient tolerated the procedure well with no immediate 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s [facility] Falls Screening (Age 18+)on 08-31-2022 Fall risk assessment a) No falls within the last year [facility] Work Phone: Tobacco use status CP b) No [employer] Work Phone: Office Visit (Cardiology)on 08-31-2022 Follow-up visit Diagnoses/Problems Assessed Afib (427.31) (I48.91) Chest pain (786.50) (R07.9) Bradycardia (427.89) (R00.1) Pacemaker (V45.01) (Z95.0) Chief Complaint Longstanding persistent atrial fibrillation History of Present [id number] gentleman with a medical history of diabetes, hypertension, hyperlipidemia, obstructive sleep apnea here to follow-up on new onset atrial fibrillation. Problem #1 atrial fibrillation; status post dual-chamber pacemaker -Underwent an ablation for atrial fibrillation November 2021; subsequently has been put on amiodarone -Has had some bradycardia following the procedure with some fatigue; since then underwent a dual-chamber pacemaker June 2022 with improvement in symptoms. Currently denies any significant dyspnea with exertion. Denies any orthopnea/PND. Problem #2 heart failure with preserved ejection fraction -Taking Lasix for 20 mg every other day. On Jardiance 25 mg daily -Appears warm and dry Notably has had occasional episodes of chest discomfort; occur paroxysmally with no clear relation to exertion. And that get worse with palpation. Active Problems Problems Acute non-recurrent maxillary sinusitis (461.0) (J01.00) Afib (427.31) (I48.91) Arthropathy of left shoulder (716.91) (M19.012) Arthropathy of right shoulder (716.91) (M19.011) Atypical chest pain (786.59) (R07.89) Bilateral renal stones (592.0) (N20.0) BPH (benign prostatic hyperplasia) (600.00) (N40.0) Bradycardia (427.89) (R00.1) Bronchial pneumonia (485) (J18.0) Carpal tunnel syndrome of right wrist (354.0) (G56.01) Cervical spondylosis (721.0) (M47.812) Chest pain (786.50) (R07.9) Chronic diastolic congestive heart failure (428.32,428.0) (I50.32) Chronic low back pain (724.2,338.29) (M54.50,G89.29) Chronotropic incompetence (426.89) (I45.89) Colon cancer screening (V76.51) (Z12.11) Cough (786.2) (R05.9) Depression (311) (F32.A) Dizziness (780.4) (R42) Encounter for immunization (V03.89) (Z23) Encounter for prostate cancer screening (V76.44) (Z12.5) Erectile dysfunction (607.84) (N52.9) Fatigue (780.79) (R53.83) Generalized osteoarthritis of multiple sites (715.09) (M15.9) GERD (gastroesophageal reflux disease) (530.81) (K21.9) History of kidney stones (V13.01) (Z87.442) Hyperlipemia (272.4) (E78.5) Hypertension, essential, benign (401.1) (I10) Influenza A (487.1) (J10.1) Left inguinal hernia (550.90) (K40.90) Left lower quadrant abdominal pain (789.04) (R10.32) Lumbosacral spondylosis (721.3) (M47.817) Medicare annual wellness visit, subsequent (V70.0) (Z00.00) Mild CAD (414.00) (I25.10) 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) Nocturia (788.43) (R35.1) Obesity (BMI 30-39.9) (278.00) (E66.9) ALISHA on CPAP (327.23,V46.8) (G47.33,Z99.89) Pacemaker (V45.01) (Z95.0) 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) Persistent atrial fibrillation (427.31) (I48.19) Phimosis (605) (N47.1) 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 Henderson History of Colonoscopy History of Dermatological cryotherapy ACTINIC KERATOSIS ON FACE PER MDS History of Epidural space injection History of Esophagogastroduodenos copy History of Inguinal hernia repair Open right inguinal hernia repair by Dr. Ignacio in 2001 History of Knee replacement LEFT KNEE PER B JUNE 2015 History of Lumbar vertebral fusion L5 IN 196 History of Nail debridement History of Pacemaker insertion History of Phacoemulsification of cataract and insertion of intraocular lens RIGHT EYE History of Retinal detachment repair RIGHT EYE History of Sigmoidoscopy flexible 1995 DR LASHELL [place] Past Medical History Problems Bilateral renal stones (592.0) (N20.0) BPH (benign prostatic hyperplasia) (600.00) (N40.0) Carpal tunnel syndrome of right wrist (354.0) (G56.01) Depression (311) (F32.A) Erectile dysfunction (607.84) (N52.9) Generalized osteoarthritis of multiple sites (715.09) (M15.9) GERD (gastroesophageal reflux disease) (530.81) (K21.9) History of actinic keratosis (V13.3) (Z87.2) History of onychomycosis (V12.09) (Z86.19) History of tinea pedis (V12.09) (Z86.19) Hyperlipemia (272.4) (E78.5) Hypertension, essential, benign (401.1) (I10) Obesity (BMI 30-39.9) (278.00) (E66.9) ALISHA on CPAP (327.23,V46.8) (G47.33,Z99.89) 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 Normal [facility] TROPONIN I, HIGH SENSITIVITY on 08-26-2022 TROPONIN I, HIGH SENSITIVITY <3 Normal 0 - 20 [facility] Comment on above: Result Comment: . Less than 99th percentile of normal range cutoff- Female and children under 18 years old <14 ng/L; Male <21 ng/L: Negative Repeat testing should be performed if clinically indicated. . Female and children under 18 years old 14-50 ng/L; Male 21-50 ng/L: Consistent with possible cardiac damage and possible increased clinical risk. Serial measurements may help to assess extent of myocardial damage. . >50 ng/L: Consistent with cardiac damage, increased clinical risk and myocardial infarction. Serial measurements may help assess extent of myocardial damage. . NOTE: Children less than 1 year old may have higher baseline troponin levels and results should be interpreted in conjunction with the overall clinical context. . NOTE: Troponin I testing is performed using a different testing methodology at [facility] than at other [facility]. Direct result comparisons should only be made within the same method. Performed By: #### T [facility] #### [address] [address] APTTon 08-25-2022 aPTT Coag (Bld) [Time] 42 s High 26 - 39 [facility] Comment on above: Result Comment: THE APTT IS NO LONGER USED FOR MONITORING UNFRACTIONATED HEPARIN THERAPY. FOR MONITORING HEPARIN THERAPY, USE THE HEPARIN ASSAY. Performed By: #### M G #### [address] [address] Activated Partial Thrombopla stin Timeon 08-25-2022 aPTT Coag (PPP) [Time] 42 s above hig h threshold 26 - 39 [facility] [address] Work Phone: Comment on above: THE APTT IS NO LONGE R USED FOR MONITORING UNFRACTIONATED HEPARIN THERAPY. FOR MONITORING HEPARIN THERAPY, USE THE HEPARIN ASSAY. BASIC METABOLIC PANELon 08-03 Anion gap [Moles/Vol] 12 mmol/L Normal 10 - 20 [facility] Comment on above: Performed By: #### B MP #### [address] [address] Calcium [Mass/Vol] 8.7 mg/dL Normal 8.6 - 10.3 [facility] Comment on above: Performed By: #### B MP #### [address] [address] Chloride [Moles/Vol] 103 mmol/L Normal 98 - 107 [facility] Comment on above: Performed By: #### B MP #### [address] [address] Creatinine [Mass/Vol] 1.04 mg/dL Normal 0.50 - 1.30 [facility] Comment on above: Performed By: #### B MP #### [address] [address] GFR/1.73 sq M.predicted among non-blacks MDRD (S/P/Bld) [Vol rate/Area] 73 mL/min/{1.73_m2} Normal >90 [facility] Comment on above: Result Comment: CALC ULATIONS OF ESTIMATED GFR ARE PERFORMED USING THE 2020 CKD-EPI STUDY REFIT EQUATION WITHOUT THE RACE VARIABLE FOR THE IDMS-TRACEABLE CREATININE METHODS. https://jasn.asnjournals.org/content/early//ASN.38772 27345 Performed By: #### B MP #### [address] [address] Glucose [Mass/Vol] 106 mg/dL High 74 - 99 [facility] Comment on above: Performed By: #### B MP #### [address] [address] HCO3 (Bld) [Moles/Vol] 25 mmol/L Normal 21 - 32 [facility] Comment on above: Performed By: #### B MP #### [address] [address] Potassium [Moles/Vol] 4.4 mmol/L Normal 3.5 - 5.3 [facility] Comment on above: Performed By: #### B MP #### [address] [address] Sodium [Moles/Vol] 136 mmol/L Normal 136 - 145 [facility] Comment on above: Performed By: #### B MP #### [address] [address] Urea nitrogen [Mass/Vol] 26 mg/dL High 6 - 23 [facility] Comment on above: Performed By: #### B MP #### [address] [address] BNPon 08-25-2022 Natriuretic peptide B (Bld) [Mass/Vol] 48 pg/mL Normal 0 - 99 [facility] Comment on above: Result Comment: . <1 00 pg/mL - Heart failure unlikely 100-299 pg/mL - Intermediate probability of acute heart . failure exacerbation. Correlate with clinical . context and patient history. >=300 pg/mL - Heart Failure likely. Correlate with clinical . context and patient history. BNP testing is performed using different testing methodology at [facility] than at other [facility]. Direct result comparisons should only be made within the same method. Performed By: #### B NP2 #### [address] [address] CBC AND DIFFERENTIALon 08-25 % AUTOMATED IMMATURE GRAN 0.4 % Normal 0.0 - 0.9 [facility] Comment on above: Result Comment: Kathy ture Granulocyte Count (IG) includes promyelocytes, myelocytes and metamyelocytes but does not include bands. Percent differential counts (%) should be interpreted in the context of the absolute cell counts (cells/L). Performed By: #### C BCDF #### [address] [address] Basophils (Bld) [#/Vol] 0.03 10*3/uL Normal 0.00 - 0.10 [facility] Comment on above: Performed By: #### C BCDF #### [address] [address] Basophils/100 WBC (Bld) 0.4 % Normal 0.0 - 2.0 [facility] Comment on above: Performed By: #### C BCDF #### [address] [address] Eosinophils (Bld) [#/Vol] 0.34 10*3/uL Normal 0.00 - 0.40 [facility] Comment on above: Performed By: #### C BCDF #### [address] [address] Eosinophils/100 WBC (Bld) 4.2 % Normal 0.0 - 6.0 [facility] Comment on above: Performed By: #### C BCDF #### [address] [address] Erythrocyte distribution width (RBC) [Ratio] 15.8 % High 11.5 - 14.5 [facility] Comment on above: Performed By: #### C BCDF #### [address] [address] Hematocrit (Bld) [Volume fraction] 36.7 % Low 41.0 - 52.0 [facility] Comment on above: Performed By: #### C BCDF #### [address] [address] Hemoglobin (Bld) [Mass/Vol] 11.5 g/dL Low 13.5 - 17.5 [facility] Comment on above: Performed By: #### C BCDF #### [address] [address] Lymphocytes (Bld) [#/Vol] 2.41 10*3/uL Normal 0.80 - 3.00 [facility] Comment on above: Performed By: #### C BCDF #### [address] [address] Lymphocytes/100 WBC (Bld) 29.7 % Normal 13.0 - 44.0 [facility] Comment on above: Performed By: #### C BCDF #### [address] [address] MCHC (RBC) [Mass/Vol] 31.3 g/dL Low 32.0 - 36.0 [facility] Comment on above: Performed By: #### C BCDF #### [address] [address] MCV (RBC) [Entitic vol] 92 fL Normal 80 - 100 [facility] Comment on above: Performed By: #### C BCDF #### [address] [address] Monocytes (Bld) [#/Vol] 0.63 10*3/uL Normal 0.05 - 0.80 [facility] Comment on above: Performed By: #### C BCDF #### [address] [address] Monocytes/100 WBC (Bld) 7.8 % Normal 2.0 - 10.0 [facility] Comment on above: Performed By: #### C BCDF #### [address] [address] Neutrophils (Bld) [#/Vol] 4.67 10*3/uL Normal 1.60 - 5.50 [facility] Comment on above: Result Comment: Perc ent differential counts (%) should be interpreted in the context of the absolute cell counts (cells/L). Performed By: #### C BCDF #### [address] [address] Neutrophils/100 WBC (Bld) 57.5 % Normal 40.0 - 80.0 [facility] Comment on above: Performed By: #### C BCDF #### [address] [address] Platelets (Bld) [#/Vol] 252 10*3/uL Normal 150 - 450 [facility] Comment on above: Performed By: #### C BCDF #### [address] [address] RBC 3.99 x10E12/L Low 4.50 - 5.90 [facility] Comment on above: Performed By: #### C BCDF #### [address] [address] WBC (Bld) [#/Vol] 8.1 10*3/uL Normal 4.4 - 11.3 [facility] Comment on above: Performed By: #### C BCDF #### [address] [address] CHEST 1 VIEWon 08-25-2022 CHEST 1 VIEW Patient Name: ROCIO SANDOVAL STUDY: CHEST 1 VIEW; 08/25/2022 8:43 pm INDICATION: Chest Pain . COMPARISON: 06/13/2022 ACCESSION NUMBER(S): [id number] ORDERING CLINICIAN: ANOOP NASCIMENTO FINDINGS: AP radiographs of the chest. Left pacemaker unchanged. No consolidation, pleural effusion, or pneumothorax. Possible calcified pulmonary nodule/granuloma at the lateral left lower lobe, unchanged from the prior exam. Stable borderline cardiomegaly. Subpleural reticular opacities most prominent at the lateral left lung and lateral right upper lung, likely fibrotic change. Additional regions of linear subsegmental atelectasis/scarring. Degenerative changes about the shoulders and spine. No acute osseous abnormality. IMPRESSION: 1. No acute cardiopulmonary process. 2. Subpleural reticular opacities most prominent at the lateral left lung and lateral right upper lung, likely fibrotic change. 3. Stable borderline cardiomegaly. Electronically signed by: CHELSEA FUNES, DO Normal [facility] Complete Blood Count + Diffjohnathon hinesabhishek 08-25-2022 Basophils/100 WBC (Bld) 0.4 % 0.0 - 2.0 [employer] [address] tic Work Phone: Erythrocyte distribution width (RBC) [Ratio] 15.8 % above high threshold See Below [employer] [address] tic Work Phone: Comment on above: Reference Range: 11. 5 - 14.5 Hematocrit (Bld) [Volume fraction] 36.7 % below low threshold See Below [employer] [place] [address] tic Work Phone: Comment on above: Reference Range: 41. 0 - 52.0 Hemoglobin (Bld) [Mass/Vol] 11.5 g/dL below low threshold See Below [employer] [address] tic Work Phone: Comment on above: Reference Range: 13. 5 - 17.5 Lymphocytes/100 WBC (Bld) 29.7 % See Below [employer] [address] [employer] Work Phone: Comment on above: Reference Range: 13. 0 - 44.0 MCHC (RBC) [Mass/Vol] 31.3 g/dL below low threshold See Below [employer] [place] [address] tic Work Phone: Comment on above: Reference Range: 32. 0 - 36.0 MCV (RBC) [Entitic vol] 92 fL 80 - 100 [employer] [address] Work Phone: Monocytes/100 WBC (Bld) 7.8 % 2.0 - 10.0 -[address] Work Phone: Neutrophils/100 WBC (Bld) 57.5 % See Below [address] Work Phone: Comment on above: Reference Range: 40. 0 - 80.0 Platelets (Bld) [#/Vol] 252 10*3/uL 150 - [address] Work Phone: RBC (Bld) [#/Vol] 3.99 {x10E12/L} below low threshold See Below [address] Work Phone: Comment on above: Reference Range: 4.5 0 - 5.90 WBC (Bld) [#/Vol] 8.1 10*3/uL 4.4 - 11.3 -[facility] Work Phone: Complete Blood Count + Differential 0.03 {x10E9/L} See Below [address] Work Phone: Comment on above: Reference Range: 0.0 0 - 0.10 Complete Blood Count + Differential 0.34 {x10E9/L} See Below [address] Work Phone: Comment on above: Reference Range: 0.0 0 - 0.40 Complete Blood Count + Differential 0.63 {x10E9/L} See Below [address] Work Phone: Comment on above: Reference Range: 0.0 5 - 0.80 Complete Blood Count + Differential 2.41 {x10E9/L} See Below [address] Work Phone: Comment on above: Reference Range: 0.8 0 - 3.00 Complete Blood Count + Differential 4.67 {x10E9/L} See Below [address] Work Phone: Comment on above: Reference Range: 1.6 0 - 5.50 Percent differential counts (%) should be interpreted in the context of the absolute cell counts (cells/L). Complete Blood Count + Differential 4.2 % 0.0 - 6.[address] Work Phone: Complete Blood Count + Differential 0.4 % 0.0 - 0.[address] Work Phone: Comment on above: Immature Granulocyte Count (IG) includes promyelocytes, myelocytes and metamyelocytes but does not include bands. Percent differential counts (%) should be interpreted in the context of the absolute cell counts (cells/L). Laboratory - Chemistry and C hemistry - challengeon 08-25-2022 Anion gap [Moles/Vol] 12 mmol/L 10 - 20 [facility] Cardiology[address] Work Phone: Calcium [Mass/Vol] 8.7 mg/dL 8.6 - 10.3 -[facility] Work Phone: Chloride [Moles/Vol] 103 mmol/L 98 - 107 -C ardiology- [address] Work Phone: CO2 [Moles/Vol] 25 mmol/L 21 - 32 -Cardio logy[address] Work Phone: Creatinine [Mass/Vol] 1.04 mg/dL See Below [facility] Cardiology[address] Work Phone: Comment on above: Reference Range: 0.5 0 - 1.30 Glucose [Mass/Vol] 106 mg/dL above high threshold 74 - 99 -Cardiology[address] Work Phone: Potassium [Moles/Vol] 4.4 mmol/L 3.5 - 5.3 - Cardiology[address] Work Phone: Sodium [Moles/Vol] 136 mmol/L 136 - 145 [facility]- [address] Work Phone: Urea nitrogen [Mass/Vol] 26 mg/dL above high threshold 6 - 23 -[address] Work Phone: Laboratory - Coagulationon 0 08-25-2022 INR Coag (PPP) [Relative time] 1.9 {INR} above high threshold 0.9 - 1.[address] Work Phone: MAGNESIUMon 08-25-2022 Magnesium [Mass/Vol] 2.25 mg/dL Normal 1.60 - 2.40 [facility] Comment on above: Performed By: #### M G #### [facility] [address] [place] [address] Magnesium, Serumon Magnesium [Mass/Vol] 2.25 mg/dL See Below MP-[facility] ardiology- [address] Work Phone: Comment on above: Reference Range: 1.6 0 - 2.40 No Panel Informationon 08-25 48 pg/mL 0 - 99 -[address] Work Phone: Comment on above: . <100 pg/mL - Heart failure -016 pg/mL - Intermediate probability of acute heart. failure exacerbation. Correlate with clinical. context and patient history. >=300 pg/mL - Heart Failure likely. Correlate with clinical. context and patient history.BNP testing is performed using different testing methodology at [facility] than at other [facility]. Direct result comparisons should only be made within the same method. 73 {mL/min/1.73m2} >90 -[facility] Work Phone: Comment on above: CALCULATIONS OF SETH MATED GFR ARE PERFORMED USING THE 2020 CKD-EPI STUDY REFIT EQUATION WITHOUT THE RACE VARIABLE FOR THE IDMS-TRACEABLE CREATININE METHODS.https://jasn.asnjournals.org/content/early/A SN.0496707385 PT/INRon 08-25-2022 PT, INR 1.9 High 0.9 - 1.1 [facility] Comment on above: Performed By: #### M G #### [address] [address] PT Coag (PPP) [Time] 22.6 s High 9.8 - 13.4 [facility] ardiology- [place] Work Phone: Comment on above: Performed By: #### M G #### [address] [address] Provider Note - ED v3on 08-03 Provider Note - ED v3 Provider Note: Chart Review: ED NOTES ED NOTES: HPI: The patient is a 77-year-old male presents for evaluation after having some chest pain and feeling lightheaded. The patient was in his shop clearing off the porch branch when he took his finger on something sharp. He is on blood thinners and was bleeding that was more of a small puncture wound than a laceration. On his left index finger. He walked up to the house and started to feel lightheaded. He took his blood pressure and noted it to be somewhat lower than it typically is. He took it again and it dropped a little bit more. At that point he called his on-call nurse. He took his blood pressure sitting and standing per their instruction. Sitting he recorded 128/52 and then standing the same arm dropped to 94/46. At that point he was instructed to go to the hospital. He is feeling much better now and is currently asymptomatic. He also states he has been having this intermittent dull left-sided chest pain for about 2 weeks now. States over the past couple weeks it seems to be getting a little bit worse and lasting a little bit while longer. States today lasted about half hour. ROS: Constitution: Denies Eyes: Shay Ears: Denies Nose: Denies Mouth/Teeth: Denies Throat/Neck: Denies Cardiovascular: Denies Respiratory: Denies Gastrointestinal: Denies Musculoskeletal: Denies Integumentary: Denies Endocrine: Denies Neuro: Denies Psychiatric: Denies Heme/Lymph: Denies Allergic/Immunologic: Denies Physical Exam I have reviewed the triage vital signs. Const: Well nourished, well developed, appears stated age, no acute distress Eyes: PERRL, EOM intact, no conjunctival injection, vision grossly normal HENT: Neck supple without meningismus , Moist mucous membranes, no pharyengeal swelling or exudate CV: Regular rate and rhythm, Warm, well-perfused extremities. Positive chest wall tenderness just under and lateral to the left breast. This recreates his chest discomfort. RESP: Lungs clear bilaterally, Unlabored respiratory effort GI: soft, non-tender, non-distended, no masses : MSK: No gross deformities appreciated Back: Non tender, no pain with ROM Skin: Warm, dry. No rashes Neuro: Alert and oriented x4, GCS 15 , trainman II-XII grossly intact. Sensation and motor function of extremities grossly intact. Psych: Appropriate mood and affect. I have reviewed and confirmed nurses/medics notes for patient past, social and family history. Portions of this note were dictated by speech recognition. An attempt at proof reading was made to minimize errors. Minor errors in scrum project manager may be present. HISTORY OF PRESENTING ILLNESS ROCIO is a 77 year old Male and was seen by me at 25-Aug-2022 19:58 for a chief complaint of chest pain (Patient to ED with c/o dizziness and lower left chest pain since 4pm. Patient had pacemaker placed Jul 14 2022.)(1). Triage Information: Most recent Vital Sign Value Date Temp (F): 97.6 08-25-2022 19:58 Temp (C): 36.4 08-25-2022 19:58 Heart Rate (beats/min): 63 08-25-2022 19:58 Respirations (breaths/min): 18 08-25-2022 19:58 SpO2 (%): 97 08-25-2022 19:58 BP Systolic (mm Hg): 120 08-25-2022 19:58 BP Diastolic (mm Hg): 77 08-25-2022 19:58 PAST MEDICAL HISTORY ALLERGIES/INTOLERANCES : No Known Allergies HEALTH HISTORY: Medical History Name:BPH (benign prostatic hyperplasia) Code:N40.0 Name:Diabetes Code:E11.9 Name:GERD (gastroesophageal reflux disease) Code:K21.9 Name:Hypertension Code:I10 Name:Sleep apnea Code:G47.30 Name:Status post left heart catheterization Code:Z98.890 OUTPATIENT MEDICATIONS: Home Medications Review Status for Reconciliation: Incomplete Med Status: Incomplete Medication History Drug Name: Multiple Vitamins oral tablet Instructions: 1 tab(s) orally once a day Drug Name: traZODone 50 mg oral tablet Instructions: 25 milligram(s) orally once a day (at bedtime) Drug Name: atorvastatin 40 mg oral tablet Instructions: 1 tab(s) orally once a day (at bedtime) Drug Name: Eye Multivitamin oral tablet Instructions: 1 tab(s) orally once a day Drug Name: Neuriva Brain performance Plus Therapeutic Multiple Vitamins oral capsule Instructions: 1 cap(s) orally once a day Drug Name: ZyrTEC 10 mg oral tablet Instructions: 1 tab(s) orally once a day Drug Name: Melatonin 5 mg oral tablet Instructions: 1 tab(s) orally once a day (at bedtime) Drug Name: Jardiance 25 mg oral tablet Instructions: 1 tab(s) orally once a day (in the morning) Drug Name: metFORMIN 750 mg oral tablet, extended release Instructions: 1 tab(s) orally 2 times a day Drug Name: tamsulosin 0.4 mg oral capsule Instructions: 1 cap(s) orally once a day Drug Name: omeprazole 40 mg oral delayed release capsule Instructions: 1 cap(s) orally once a day Drug Name: furosemide 20 mg oral tablet Instructio (more content not included)... Normal [facility] Radiologyon 08-25-2022 XR Chest Single view Normal [facility] ardiology- [address] Work Phone: Risk Screen - Adult Emergenc yon 08-25-2022 Risk Screen - Adult Emergency Preferred Language: Preferred Language: Preferred Language for Discussing Health Care (patient/designee)Engl maddy Patient Preferred Pharmacy: Patient Preferred Pharmacy Statement: I have reviewed and updated the patient's preferred pharmacy selection for today's visit. Advanced Directives: Advance Directive/DNRyes Advance Directive typeLiving Will, Durable Power of Quality Review Trainer for Healthcare Living Will AvailabilityLiving Will not available now Living Will [id number] Durable Power of Quality Review Trainer AvailabilityDPOA not available now Durable Power of Quality Review Trainer [id number] Durable Power of Quality Review Trainer contact (name and number)Suellen (Daughter) Family Violence Adult: Abuse Screen: Are you or have you been threatened or abused physically, emotionally, or sexually by anyoneno Learning Assessment (Patient): Learning Assessment (Patient): Patient is Able to be Assessed for Learningyes Factors Influencing Readiness to Learnacuteness of illness Factors that Impact Ability to Learnacuteness of illness Devices/Methods Used to Communicatenone Learning Preferencesindividual instruction; skill demonstration; verbal instruction Cultural Considerationsnone Developmental Considerationsnone Latter Day Considerationsnone Learning Assessment (Other Learner): Learning Assessment (Other Learner): Other learner availableyes... Learnerspouse Factors Influencing Readiness to Learnanxiety Factors that Impact Ability to Learnnone Devices/Methods Used to Communicatenone Learning Preferencesindividual instruction, skill demonstration, verbal instruction Cultural Considerationsnone Developmental Considerationsnone Latter Day Considerationsnone Pressure Injury/TB/Substance: Pressure Injury: Do you have a coughno Smoking Statusnever smoker Alcohol Usedenies Drug Usedenies Admission Risk Screen: Significant IndicatorsComplete CAGE: CAGE: Is this an injured patient at a [place] Center [place] [place]/[place]/Mode): no Electronic Signatures: Consuelo Coffey (ISMAEL) (Signed 25-Aug-2022 20:09) Authored: Preferred Language, Patient Preferred Pharmacy, Advanced Directives, Family Violence Adult, Learning Assessment (Patient), Learning Assessment (Other Learner), Pressure Injury/TB/Substance, Pressure Injury, CAGE Last Updated: 25-Aug-2022 20:09 by Consuelo Coffey (ISMAEL) Normal [facility] TROPONIN I, HIGH SENSITIVITY on 08-25-2022 TROPONIN I, HIGH SENSITIVITY <3 Normal 0 - 20 [facility] Comment on above: Result Comment: . Less than 99th percentile of normal range cutoff- Female and children under 18 years old <14 ng/L; Male <21 ng/L: Negative Repeat testing should be performed if clinically indicated. . Female and children under 18 years old 14-50 ng/L; Male 21-50 ng/L: Consistent with possible cardiac damage and possible increased clinical risk. Serial measurements may help to assess extent of myocardial damage. . >50 ng/L: Consistent with cardiac damage, increased clinical risk and myocardial infarction. Serial measurements may help assess extent of myocardial damage. . NOTE: Children less than 1 year old may have higher baseline troponin levels and results should be interpreted in conjunction with the overall clinical context. . NOTE: Troponin I testing is performed using a different testing methodology at [facility] than at other [facility]. Direct result comparisons should only be made within the same method. Performed By: #### T [facility] #### [id number] [place] [address] Tropinin I.cardiac panel High sensitivity method <3 0 - 20 [facility] [employer] Work Phone: Comment on above: .Less than 99th perc entile of normal range cutoff-Female and children under 18 years old <14 ng/L; Male <21 ng/L: NegativeRepeat testing should be performed if clinically indicated. .Female and children under 18 years old 14-50 ng/L; Male 21-50 ng/L:Consistent with possible cardiac damage and possible increased clinical risk. Serial measurements may help to assess extent of myocardial damage. .>50 ng/L: Consistent with cardiac damage, increased clinical risk andmyocardial infarction. Serial measurements may help assess extent of myocardial damage. . NOTE: Children less than 1 year old may have higher baseline troponin levels and results should be interpreted in conjunction with the overall clinical context. .NOTE: Troponin I testing is performed using a different testing methodology at [facility] than at other [facility]. Direct result comparisons should only be made within the same method. Tropinin I.cardiac panel High sensitivity method <3 0 - 20 [facility] [employer] Work Phone: Comment on above: .Less than 99th perc entile of normal range cutoff-Female and children under 18 years old <14 ng/L; Male <21 ng/L: NegativeRepeat testing should be performed if clinically indicated. .Female and children under 18 years old 14-50 ng/L; Male 21-50 ng/L:Consistent with possible cardiac damage and possible increased clinical risk. Serial measurements may help to assess extent of myocardial damage. .>50 ng/L: Consistent with cardiac damage, increased clinical risk andmyocardial infarction. Serial measurements may help assess extent of myocardial damage. . NOTE: Children less than 1 year old may have higher baseline troponin levels and results should be interpreted in conjunction with the overall clinical context. .NOTE: Troponin I testing is performed using a different testing methodology at [facility] than at other [facility]. Direct result comparisons should only be made within the same method. Triage - EDon 08-25-2022 Triage - ED Chart Review: ARRIVAL INFORMATION Mode of Arrival: private vehicle CHIEF COMPLAINT ROCIO SANDOVAL is a Male patient with a chief complaint of chest pain (Patient to ED with c/o dizziness and lower left chest pain since 4pm. Patient had pacemaker placed Jul 14 2022.). Triage Date/Time: 25-Aug-2022 19:58 PETE: 2 Pain Rating (0-10): 4 = Moderate Pain location: lower left chest/ribs Vital Signs: Temperature: 97.6F ( 36.4C) Blood Pressure: 120/77 Mean: Heart Rate: 63 Respiratory Rate: 18 Pulse Oximetry: 97% on room air, no respiratory support. Height: 6 feet 2.00 inches. 187.9 CM Weight: 212.5 pounds. Calculated 96.4 kg. (stated) Calculated BMI (kg/m2): 27.303 Calculated BSA (m2) 2.24 Hui Coma Scale: Best Eye Response: (E4) spontaneous Best Motor Response: (M6) obeys commands Best Verbal Response: (V5) oriented Concord Score: 15 Patient has homicidal thoughts: no Symptoms Are POSITIVE For: pain Symptoms Are Negative For: anxiety, chills, diaphoresis, dyspnea, headache, loss of consciousness, nausea, numbness, tingling and weakness Activity At Onset: Exertion (Working in his shop) Chest Pain Location-Left: lower chest Risk Screens Suicide Risk Screen In the Past Month: Have you wished you were or wished you could go to sleep and not wake up no In the Past Month: Have you had any actual thoughts of killing yourself no In Your Lifetime: Have you ever done anything, started to do anything, or prepared to do anything to end your life no Lloyd Fall Scale Screening Has the patient fallen before (or is the patient in the ED as a result of a fall) has not had a fall Does the patient have an impaired gait does not have impaired gait Is the patient cognitively impaired not cognitively impaired Interventions: Lloyd Fall Interventions: LOW INTERVENTIONS: *patient oriented to surroundings and call system, * patient/family falls education completed and documented, *patients fall status communicated during bedside handoff, *whiteboard updated, *mode of toileting discussed with patient, *bed in low position with brakes locked, *call light in reach, * non-skid footwear TRAVEL HISTORY Travel History Coronavirus Screening: no exposure or symptoms Travel Exposure History: NO travel to International locations in the past 30 days PAIN Pain Scale Used: AMMON Pain Rating (0-10): 4 = Moderate Past Medical History: Past Medical History Reviewedyes Pacemaker: Past Surgical History, Active, 14-Jul-2022 Electronic Signatures: Consuelo Coffey) (Signed 25-Aug-2022 20:07) Authored: Quick Triage, Risk Screens, Pain, Travel History, Chart Review, Scores, Past Medical History Last Updated: 25-Aug-2022 20:07 by Consuelo Coffey) [facility] Narrative Note - Outpatient- Heart Failureon 08-23-2022 Narrative Note - Outpatient-Heart Failure Narrative Note: Discipline/ClinicHeart Failure Description Rocio arrived ambulatory to the Heart Failure Clinic for his scheduled visit. States he is feeling really good. He denies increased shortness of breath, PND, or Orthopnea. He wears his CPAP at night as ordered. Rocio had a pacer placed on June [address] Romo and has been doing well since. A EKG was done today for Amiodarone protocol with results sent to Dr. Stroud, he instructed to continue the same regimen and follow up in 2 months. Rocio has an appt with [facility] on August 31. Home medications reviewed without any changes. He is eating and sleeping without distress. We reviewed the signs and symptoms of increased heart failure and when to call for help. At his next [facility] visit we will get his labs for Amiodarone Protocol, as well as labs ordered per his PCP and a Pacer check. Vitals: BP: 119/54 HR: 70 Resp: 18 SPO2: 98% on RA Weight: 222.0/100.7 Previous Weight: 228.1/103.5 Lung Sounds: Clear Edema: None JVD: None Labs: EKG, Labs done July 04 placed on the chart Medications Administered: None Next Appointment Date: October 03, 2022 @ 8am, Fasting Labs to be done Note in EMR for Treating Physician: Dr. Stroud In-House Supervising Physician: Dr. Travis Beth Electronic Signatures: Aleta Joiner) (Signed 23-Aug-2022 09:22) Authored: Narrative Note - OP Last Updated: 23-Aug-2022 09:22 by Aleta Joiner) [facility] [place] Panel Informationon 08-23 [email or web address]?PatientID=[id number]&Date= 3&Time=08%3a12%3a48%3a 00&TestType=ECG&Site=1 4&OutputType=PDF&Ext=P DF [facility]- [place] [address] Work Phone: Atrial-paced rhythm with prolonged AV conduction [facility]- [place] [address] Work Phone: Abnormal [facility]- [place] [address] Work Phone: [phone] [facility]- [place] [address] Work Phone: [phone] [facility]- [place] [address] Work Phone: [phone] [facility]- [place] [address] Work Phone: [phone] [facility]- [place] [address] Work Phone: [phone] [facility]- [place] [address] Work Phone: [phone] [facility] [place] [address] Work Phone: [phone] [facility] [place] [address] Work Phone: [phone] [facility] [place] [address] Work Phone: [phone] [facility] [place] [address] Work Phone: [phone] [facility] [place] [address] Work Phone: [phone] [facility] [place] [address] Work Phone: [phone] [facility]- [place] [address] Work Phone: Established Visit (Pain Medi cine)on 08-07-2022 Established Visit (Pain Medicine) Diagnoses/Problems 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 I will continue the gabapentin at 400 mg 3 times a day since it has provided him with effective symptom without side effects and he has been compliant with his treatment regimen. With regard to the shoulders we reviewed his x-rays which showed arthritis in both joints. Since he has had the symptoms for 3 months and they are impacting his function and sleep we will proceed with a set of shoulder injections today. We discussed the pros and cons of this plan and he was in agreement with it. I advised him to continue with his home exercises and I will see him for follow-up in 3 months or sooner if needed. Procedure: Intra-articular steroid injection into the left and right shoulders Diagnosis: Left shoulder arthritis/right shoulder arthritis Solution: 6 mL of 0.25% bupivacaine with 1 mL of Kenalog 40 mg. 7 mL total. 3.5 mL per side Anesthesia: Local Complications: None After informed consent was obtained the patient was placed in the seated position. The area in question was prepped in sterile fashion. A 27-gauge needle was inserted perpendicular into the skin at a point 1 cm inferior to the posteriolateral most aspect of the left acromium and was advanced into the left shoulder joint without difficulty. Aspiration was negative. The local anesthetic steroid solution was injected incrementally. The needle was removed. Bleeding was nil. The procedure was repeated in the same manner for the right shoulder. The patient tolerated the procedure well. Chief Complaint FUV xray results today report having pain in bilat shoulders and mid back just below scapula rates 2/10 now and 7/10 at it's worst intermittently, usually when he first gets up gets better when he has been moving around. GPN is helping his pain. He needs a RF on GPN send to [facility]. He does not use [facility] anymore. This is a 76-year-old male here for a follow-up appointment for chief complaint of bilateral shoulder pain. He reports that since his last visit the shoulder pain has remained persistent. It is bothersome when he is active and also it hurts if he lies on that side at night. It does interrupt his sleep. He got the x-rays we ordered. We discussed injections last visit and he would like to do that today. He does not want surgery. He reports the gabapentin has kept his back symptoms under good control. He denies side effects. He denies additional neurologic symptoms or issues with bladder or bowel control. The patient's past medical, social, and family history along with medications and allergies are available and were reviewed. Adult Risk Screening Living Will. Living Will: Living will on file. Healthcare POA: Health care proxy on file. Domestic Violence Screen: Does not feel threatened or abused physically, emotionally or sexually. Do you feel UNSAFE? The patient feels safe in the home. Depression/Suicide Screening: He does not have a risk of suicide. He has not had thoughts of harming others. Reference Documentation See scanned note Oswestry Disability Index evaluation tool completed by patient . History of Present Illness On a scale of 0 to 10, the patient rates the pain at 2. now and 7/10 first thing in the morning. Pain Location: Upper Back Pain and just below scapula. Pain Quality: Aching, Sharp, Stabbing and stiff. Sensory/ Motor: Numbness, Pins and [place] and intermittently in left foot. Timing/Duration: Constant and > 12 weeks duration. Controlled Substance: I have personally reviewed the [place]ARRS report for ROCIO JAIME. I have considered the risks of abuse, dependence, addiction and diversion. Exacerbating Factors: motion, lifting and laying on wither side . Goals for Pain Management: Oswestry Disability Index evaluation tool completed by patient score 24. Patient Education: TIME OUT DONE FOR BILATERAL SHOULDER INJECTIONS. Review of Systems All 13 systems were reviewed and are within normal levels except as noted below or per HPI. Positive and pertinent negative responses are noted below or in the HPI. 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 Normal [facility] MD [place] Injection/Arthrocentes is: L olecranon bursaobooker 08-04-2022 Yaritza Luna CNP 08/04/2022 12:38 PM MD [place] Injection/Arthrocentes is: L olecranon bursa Performed by: Yaritza Luna CNP Authorized by: Yaritza Luna CNP CPT 34460 - Medium Joint Arthrocentesis: Consent given by: Patient Time out: Immediately prior to the procedure a time out was called Physician or proceduralist has discussed critical or nonroutine steps, procedure duration and anticipated blood loss: Yes Supporting Documentation: Indications: Pain and diagnostic evaluation Procedure Details: Location: Elbow Site: L olecranon bursa Prep: patient was prepped and draped in usual sterile fashion Needle size: 18 G Medications: 40 mg triamcinolone acetonide 40 mg/mL Aspirate amount (ml): 5 Aspirate: Clear, yellow and blood-tinged Patient tolerance: Patient tolerated the procedure well with no immediate 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s [facility] MD [place] Injection/Arthrocentes is: L olecranon bursaon 08-01-2022 Yaritza Luna CNP 08/01/2022 3:54 PM MD [place] Injection/Arthrocentes is: L olecranon bursa Performed by: Yaritza Luna CNP Authorized by: Yaritza Luna CNP CPT 57539 - Medium Joint Arthrocentesis: Consent given by: Patient Time out: Immediately prior to the procedure a time out was called Physician or proceduralist has discussed critical or nonroutine steps, procedure duration and anticipated blood loss: Yes Supporting Documentation: Indications: Pain and diagnostic evaluation Procedure Details: Location: Elbow Site: L olecranon bursa Prep: patient was prepped and draped in usual sterile fashion Needle size: 25 G Aspirate amount (ml): 15 Aspirate: Yellow and clear Lab: fluid sent for laboratory analysis Patient tolerance: Patient tolerated the procedure well with no immediate 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s [facility] Urate [Mass/Vol]on Interpretation and review of laboratory results Normal [facility] Uric Acidon 08-01-2022 Urate [Mass/Vol] 3.8 mg/dL 3.4 - 8.5 mg/dL [facility] BILATERAL SHOULDER, CMPLT, M IN 2 VIEWSon 07-25-2022 BILATERAL SHOULDER, CMPLT, MIN 2 VIEWS Patient Name: ROCIO SANDOVAL STUDY: BILATERAL SHOULDER, CMPLT, MIN 2 VIEWS; 07/25/2022 10:05 am INDICATION: pain M19.011: Arthropathy of right shoulder M19.012: Arthropathy of left shoulder. COMPARISON: None. ACCESSION NUMBER(S): [id number] ORDERING CLINICIAN: SUSANA GIBSON FINDINGS: Pacemaker is identified. There is no evidence for acute fracture or dislocation. Osteopenia is present. Hypertrophic bony changes are seen at the bilateral acromioclavicular joint, which narrow the joint. Narrowing of the bilateral glenohumeral joint is seen with associated sclerosis and spur formation. No lytic or blastic lesions are seen IMPRESSION: Degenerative changes of bilateral shoulders. 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 I will continue the gabapentin at 400 mg 3 times a day since it has provided him with effective symptom without side effects and he has been compliant with his treatment regimen. With regard to the shoulders if the pain persists we will check x-rays and consider injections. I advised him that once he is cleared by his artist blacksmith he can start doing range of motion exercises. With regard to his lower back and hip pain it is consistent with sacroiliitis and if his home exercises did not suffice we could consider a trial of sacroiliac injections. I advised him to continue with his home exercises and I will see him for follow-up in 3 months or sooner if needed. Over 30 minutes was spent caring for the patient in total. Chief Complaint [facility] today reports having pain in bilat shoulders upper back between scapula and knees rates 2/10 now at times will have bilat hip pain in the morning last few days rates 7-8/10 at its worst 1st thing in the morning describes as sharp/ stabbing in shoulders and upper back, bilat knees are stiff. The pain is very bad in the morning and affects his ADLs, he cannot do a of his work around the house or hobbies as a result of the pain with lifting, bending and walking. He has lost a significant amount of weight and Dr Anne is looking in to this doing blood work. He will need a RF on N send to mail order [facility]. This is a 76-year-old male here for a follow-up appointment for chief complaint of multifocal pain. He reports that since his last visit his symptoms have been improved. The increased dose of gabapentin has definitely helped. He denies side effects. He reports the mid back pain is resolved considerably. His biggest issue now is pain in both shoulders and in the lower back and hips. He states the 2 sides are roughly equal. He reports that seems to be worse first thing in the morning. The shoulder pain is worst when he raises his arms up in the air. He has undergone a pacemaker implant 3 weeks ago so he is not supposed to get the left arm above 90 degrees. He reports the hip pain is also worse first thing in the morning. He asked if he could try the Voltaren gel for this. He denies new neurologic symptoms or issues with bladder or bowel control. The patient's past medical, social, and family history along with medications and allergies are available and were reviewed. Adult Risk Screening Living Will. Living Will: Living will on file. Healthcare POA: Health care proxy on file. Domestic Violence Screen: Does not feel threatened or abused physically, emotionally or sexually. Do you feel UNSAFE? The patient feels safe in the home. Depression/Suicide Screening: He does not have a risk of suicide. He has not had thoughts of harming others. Reference Documentation See scanned note RACHEL evaluation tool completed by patient . History of Present Illness On a scale of 0 to 10, the patient rates the pain at 2. now and 7-8/10 1st thing in the morning. Pain Location: Upper Back Pain and bilat shoulders, hips and knees. Pain Quality: Aching, Sharp, Stabbing and stiffness. Pain Radiation: denies. Sensory/ Motor: Numbness, Pins and [place] and Lt foot lateral aspect intermittently worse at night laying down. Timing/Duration: Intermittent and > 12 weeks duration. Controlled Substance: I have personally reviewed the OARRS report for ROCIO JAIME. I have considered the risks of abuse, dependence, addiction and diversion. Exacerbating Factors: motion, lifting, standing, stairs and walking. Alleviating Factors: Medications, Moist Heat. 24 Hour Behavior: Symptoms are worse in the am. Symptoms are the same as the day progresses. Symptoms are the same in the pm. Symptoms are worse when lying down. can wake him up. Goals for Pain Management: RACHEL evaluation tool completed by patient 23. Review of Systems All 13 systems were reviewed and are within normal levels except as noted below or per HPI. Positive and pertinent negative responses are noted below or in the HPI. Active Problems Acute non-recurrent maxillary sinusitis (461.0) (J01.00) Afib (427.31) (I48.91) Atypical chest pain (786.59) (R07.89) Bilateral renal stones (592.0) (N20.0) BPH (benign prostatic hyperplasia) (600.00) (N40.0) Bradycardia (427.89) (R00.1) Bronchial pneumonia (485) (J18.0) Carpal tunnel syndrome of right wrist (354.0) (G56.01) Cervical spondylosis (721.0) (M47.812) Chest pain (786.50) (R07.9) Chronic diastolic congestive (more content not included)... Normal Lupe Medicare Annual Wellness Vis nelda 07-10-2022 Medicare Annual Wellness Visit *Chief Complaint Medicare wellness. 6 MO F/U. Rev Labs. History of Present Illness The patient is being seen for the subsequent annual wellness visit. Past Medical, Surgical and Family History: reviewed and updated in chart. Medications and Supplements: Review of all medications by a prescribing practitioner or clinical pharmacist (such as prescriptions, OTCs, herbal therapies and supplements) documented in the medical record. No, the patient is not using opioids. Patient Self Assessment of Health Status: fair. Tobacco use: Non-User Alcohol use: Non-User Illicit drug use: Non-User Current diet: well balanced diet. Exercise Frequency: infrequently. Depression/Suicide Screening: . During the past 2 weeks, the patient has not felt down, depressed or hopeless. During the past 2 weeks, the patient has not felt little interest or pleasure in doing things. Hearing Impairment: none. Cognitive Impairment: No cognitive impairment observed. Bathing: performs independently. Dressing: performs independently. Walking: performs independently. Managing Finances: performs independently. Shopping: performs independently. Managing Medications: performs independently. Housework / Basic Home Maintenance: performs independently. Falls Risk Screening:. ROCIO has not fallen in the last 6 months. Home safety risk factors: none. Advance directives:. Advanced Care Planning discussed and documented advance care plan or surrogate decision maker documented in the medical record. Patient has living will. Patient has healthcare POA. Patient's End of Life Decisions: End of life decisions were reviewed with the patient. I agree to follow the patient's decisions. No low blood sugars since last OV, seen opthalmology in the past year, and no numbness or tingling in feet, skin normal. No headache, chest pain, shortness of breath, dizziness, lightheadedness, or edema Taking and tolerating anticoagulation, last seen cardiology in May Taking PPI daily without breakthrough symptoms. Reviewed dietary, caffeine, tobacco, alcohol, and NSAID use. No dyspepsia, dysphagia, reflux, melena, or abdominal pain. Patient has been using their CPAP nightly and is experiencing restful sleep, no morning headaches, no witnessed snoring, and notices a difference if they do not use the device. Seen pain medicine and added gabapentin for pain, to see again this AM, gabapentin helping had pacemaker placed last month, feeling better since, was having bradycardia before after ablation has lost over 20 pounds in the past 6 months, not trying to loose wt., appetite poor at times Review of Systems Constitutional: NAD, no fevers, chills, sweats or fatigue Rep: no cough or shortness of breath Cardio: no chest pain, edema, or palpitations GI: no nausea, vomiting, diarrhea, constipation, or heartburn : normal urine flow and stream, no nocturia or dysuria MS: no joint pain or significant limits of function Skin: no visible rashes or suspicious lesions Neuro: alert and oriented X4, no numbness, tingling or issues with balance Psych: no anxiety or depression 'Scores and Scales' PHQ-9 01Sep2021 02:05PM PHQ-9 #1. Little interest or pleasure in doing things2-More than half the days PHQ-9 #2. Feeling down, depressed, or hopelesS2-More than half the days PHQ-9 #3. Trouble falling or staying asleep, or sleeping too much0-Not at all PHQ-9 #4. Feeling tired or having little energy1-Several days PHQ-9 #5. Poor appetite or overeating0-Not at all PHQ-9 #6. Feeling bad about yourself or you are a failure or that you have let yourself or your family down0-Not at all PHQ-9 #7. Trouble concentrating on things, such as reading the newspaper or watch television0-Not at all PHQ-9 #8. Moving or speaking so slowly that other people could have noticed. Or the opposite-being so fidgety or restless that you have been moving around a lot more than usual0-Not at all PHQ-9 #9. Thoughts that you would be better off , or of hurting yourself0-Not at all PHQ-9 #10. If you checked off any problems, how difficult have these problems made it for you to do your work, take care of things at home, or get along with other people?Not difficult at all PHQ-9 Total Score (Please update problem list based on total score)5 PHQ-9 Depression SeverityMild (5-9) *Active Problems Acute non-recurrent maxillary sinusitis (461.0) (J01.00) Afib (427.31) (I48.91) Atypical chest pain (786.59) (R07.89) Bilateral renal stones (592.0) (N20.0) BPH (benign prostatic hyperplasia) (600.00) (N40.0) Bradycardia (427.89) (R00.1) Bronchial pneumonia (485) (J18.0) Carpal tunnel syndrome of right wrist (354.0) (G56.01) Cervical spondylosis (721.0) (M47.812) Chest pain (786.50) (R07.9) Chronic diastolic congestive heart failure (428.32,428.0) (I50.32) Chronic low back pain (724.2,338.29) (M54.50,G89.29) Chronotropic incompetence (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 Normal [facility] Tobacco Screening.on 023 Adult depression screening assessment No [employer] [facility] Work Phone: Fall risk assessment b) One or more fall s in the last year [employer] [facility] nvite Phone: Tobacco use status CPHS b) No [employer] [facility] Work Phone: Complete Blood Count + Diffe rentialon 07-04-2022 Basophils/100 WBC (Bld) 0.5 % 0.0 - 2.0 [employer] [facility] Work Phone: Erythrocyte distribution width (RBC) [Ratio] 14.4 % See Below [employer] [facility] nvite Phone: Comment on above: Reference Range: 11. 5 - 14.5 Hematocrit (Bld) [Volume fraction] 39.8 % below low threshold See Below [facility] nvite Phone: Comment on above: Reference Range: 41. 0 - 52.0 Hemoglobin (Bld) [Mass/Vol] 12.0 g/dL below low threshold See Below [employer] [facility] Work Phone: Comment on above: Reference Range: 13. 5 - 17.5 Lymphocytes/100 WBC (Bld) 32.0 % See Below [facility] Work Phone: Comment on above: Reference Range: 13. 0 - 44.0 MCHC (RBC) [Mass/Vol] 30.2 g/dL below low threshold See Below [facility] Work Phone: Comment on above: Reference Range: 32. 0 - 36.0 MCV (RBC) [Entitic vol] 95 fL 80 - 100 [facility] Work Phone: Monocytes/100 WBC (Bld) 6.4 % 2.0 - 10.0 [facility] Work Phone: Neutrophils/100 WBC (Bld) 55.3 % See Below [facility] Work Phone: Comment on above: Reference Range: 40. 0 - 80.0 Platelets (Bld) [#/Vol] 320 10*3/uL 150 - 450 [facility] Work Phone: RBC (Bld) [#/Vol] 4.20 {x10E12/L} below low threshold See Below [facility] Work Phone: Comment on above: Reference Range: 4.5 0 - 5.90 WBC (Bld) [#/Vol] 8.8 10*3/uL 4.4 - 11.3 [facility] Work Phone: Complete Blood Count + Differential 0.04 {x10E9/L} See Below [facility] Work Phone: Comment on above: Reference Range: 0.0 0 - 0.10 Complete Blood Count + Differential 0.48 {x10E9/L} above high threshold See Below [facility] Work Phone: Comment on above: Reference Range: 0.0 0 - 0.40 Complete Blood Count + Differential 0.56 {x10E9/L} See Below [facility] Work Phone: Comment on above: Reference Range: 0.0 5 - 0.80 Complete Blood Count + Differential 2.81 {x10E9/L} See Below [facility] Work Phone: Comment on above: Reference Range: 0.8 0 - 3.00 Complete Blood Count + Differential 4.85 {x10E9/L} See Below [facility] Work Phone: Comment on above: Reference Range: 1.6 0 - 5.50 Percent differential counts (%) should be interpreted in the context of the absolute cell counts (cells/L). Complete Blood Count + Differential 5.5 % 0.0 - 6.0 [facility] Work Phone: Complete Blood Count + Differential 0.3 % 0.0 - 0.9 [facility] Work Phone: Comment on above: Immature Granulocyte Count (IG) includes promyelocytes, myelocytes and metamyelocytes but does not include bands. Percent differential counts (%) should be interpreted in the context of the absolute cell counts (cells/L). Hemoglobin A1Con 07-04-2022 Glucose [Mass/Vol] 151 mg/dL [facility] Work Phone: HbA1c (Bld) [Mass fraction] 6.9 % Abnormal [facility] Work Phone: Comment on above: Diagnosis of Diabete s-Adults Non-Diabetic: < or = 5.6% Increased risk for developing diabetes: 5.7-6.4% Diagnostic of diabetes: > or = 6.5%. Monitoring of Diabetes Age (y) Therapeutic Goal (%) Adults: >18 <7.0 Pediatrics: 13-18 <7.5 7-12 <8.0 0- 6 7.5-8.5 [employer]. Diabetes Care 33(S1), Jul 2009. LDL, Direct, Serumon 023 Cholesterol in LDL [Mass/Vol] 83 mg/dL 0 - 129 [facility] Work Phone: Comment on above: Elevated levels of L DL cholesterol are recognized as a chapin factor in the development of atherosclerosis and CHD. The direct LDL cholesterol test can be used to assess cardiovascular risk and monitor therapy as a follow up to a lipid profile when triglycerides are significantly elevated. Laboratory - Chemistry and C hemistry - challengeon 07-04-2022 Albumin BCP dye [Mass/Vol] 3.9 g/dL 3.4 - 5.0 [facility] Work Phone: ALP [Catalytic activity/Vol] 56 U/L 33 - 136 [facility] Work Phone: ALT With P-5'-P [Catalytic activity/Vol] 14 U/L 10 - 52 [facility] Work Phone: Comment on above: Patients treated wit h Sulfasalazine may generate falsely decreased results for ALT. Anion gap [Moles/Vol] 8 mmol/L below low threshold 10 - 20 [employer] [facility] Work Phone: AST With P-5'-P [Catalytic activity/Vol] 15 U/L 9 - 39 [facility] Work Phone: Bilirubin [Mass/Vol] 0.5 mg/dL 0.0 - 1.2 [employer] [facility] Work Phone: Calcium [Mass/Vol] 9.2 mg/dL 8.6 - 10.3 -[facility] [employer] [facility] Work Phone: Chloride [Moles/Vol] 106 mmol/L 98 - 107 [employer] [facility] Work Phone: CO2 [Moles/Vol] 31 mmol/L 21 - 32 -[employer] [facility] Work Phone: Creatinine [Mass/Vol] 0.83 mg/dL See Below [employer] [facility] Work Phone: Comment on above: Reference Range: 0.5 0 - 1.30 Glucose [Mass/Vol] 105 mg/dL above high threshold 74 - 99 [facility] Work Phone: Potassium [Moles/Vol] 4.3 mmol/L 3.5 - 5.3 [facility] Work Phone: Protein [Mass/Vol] 6.7 g/dL 6.4 - 8.2 [facility] Work Phone: Sodium [Moles/Vol] 141 mmol/L 136 - 145 [facility] Work Phone: Testosterone [Mass/Vol] 145 ng/dL below low threshold 250-1100 [facility] Work Phone: Comment on above: Men with clinically significant hypogonadalsymptoms and testosterone values repeatedly inthe range of the 200-300 ng/dL or less, maybenefit from testosterone treatment afteradequate risk and benefits counseling. For additional information, please refer tohttp://education.PAYMEY/faq/TotalTestosteroneLC IQBJMPI600(This link is being provided for informational/educational purposes only.) This test was developed and its analytical performancecharacteristics have been determined by [employer] [place], [place]. It hasnot been cleared or approved by the U.S. Food and DrugAdministration. This assay has been validated pursuantto the CLIA regulations and is used for clinicalpurposes. Testosterone Free [Mass/Vol] 20.7 pg/mL below low threshold 30.0-135.0 [facility] Work Phone: Comment on above: This test was develo ped and its analytical performancecharacteristics have been determined by [employer] [place], [place]. It hasnot been cleared or approved by the U.S. Food and DrugAdministration. This assay has been validated pursuantto the CLIA regulations and is used for clinicalpurposes. Urea nitrogen [Mass/Vol] 16 mg/dL 6 - 23 -[facility] Work Phone: No Panel Informationon 07-04 89 {mL/min/1.73m2} >90 -[facility] Work Phone: Comment on above: CALCULATIONS OF SETH MATED GFR ARE PERFORMED USING THE 2020 CKD-EPI STUDY REFIT EQUATION WITHOUT THE RACE VARIABLE FOR THE IDMS-TRACEABLE CREATININE METHODS.https://jasn.asnjournals.org/content/early/A SN.8529748100 BASIC METABOLIC PANELon 12-1 Anion gap [Moles/Vol] 14 mmol/L Normal 10 - 20 [facility] Comment on above: Performed By: #### B MP ####[facility] [id number] [place] [address] Calcium [Mass/Vol] 9.0 mg/dL Normal 8.6 - 10.3 [facility] Comment on above: Performed By: #### B MP ####[facility] [id number] [place] [address] Chloride [Moles/Vol] 104 mmol/L Normal 98 - 107 [facility] Comment on above: Performed By: #### B MP ####[facility] [id number] [place] [address] Creatinine [Mass/Vol] 0.90 mg/dL Normal 0.50 - 1.30 [facility] Comment on above: Performed By: #### B MP ####[facility] [id number] [place] [address] GFR/1.73 sq M.predicted among non-blacks MDRD (S/P/Bld) [Vol rate/Area] 87 mL/min/{1.73_m2} Normal >90 [facility] Comment on above: Result Comment: CALC ULATIONS OF ESTIMATED GFR ARE PERFORMED USING THE 2020 CKD-EPI STUDY REFIT EQUATION WITHOUT THE RACE VARIABLE FOR THE IDMS-TRACEABLE CREATININE METHODS. https://iglesiasn.asnjournals.org/content/early/ASN.28652 68050 Performed By: #### B MP ####[facility] [id number] [place] [id number] Glucose [Mass/Vol] 97 mg/dL Normal 74 - 99 [facility] Comment on above: Performed By: #### B MP ####[facility] [id number] [place] [address] HCO3 (Bld) [Moles/Vol] 25 mmol/L Normal 21 - 32 [facility] Comment on above: Performed By: #### B MP ####[facility] [id number] [place] [address] Potassium [Moles/Vol] 4.3 mmol/L Normal 3.5 - 5.3 [facility] Comment on above: Performed By: #### B MP ####[facility] [id number] [place] [id number] Sodium [Moles/Vol] 139 mmol/L Normal 136 - 145 [facility] Comment on above: Performed By: #### B MP ####[id number] [place] [id number] Urea nitrogen [Mass/Vol] 14 mg/dL Normal 6 - 23 [facility] Comment on above: Performed By: #### B MP ####[facility] [id number] [place] [address] CBCon 06-14-2022 Erythrocyte distribution width (RBC) [Ratio] 13.7 % Normal 11.5 - 14.5 [facility] Comment on above: Performed By: #### C BC ####[facility] [id number] [place] [address] Hematocrit (Bld) [Volume fraction] 39.2 % Low 41.0 - 52.0 [facility] Comment on above: Performed By: #### C BC ####[id number] [place] [address] Hemoglobin (Bld) [Mass/Vol] 11.9 g/dL Low 13.5 - 17.5 [facility] Comment on above: Performed By: #### C BC ####[facility] [id number] [place] [address] MCHC (RBC) [Mass/Vol] 30.4 g/dL Low 32.0 - 36.0 [facility] Comment on above: Performed By: #### C BC ####[facility] [id number] [place] [address] MCV (RBC) [Entitic vol] 94 fL Normal 80 - 100 [facility] Comment on above: Performed By: #### C BC ####[facility] [id number] [place] [address] Platelets (Bld) [#/Vol] 388 10*3/uL Normal 150 - 450 [facility] Comment on above: Performed By: #### C BC ####[id number] [place] [address] RBC 4.19 x10E12/L Low 4.50 - 5.90 [facility] Comment on above: Performed By: #### C BC ####[id number] [place] [address] WBC (Bld) [#/Vol] 10.3 10*3/uL Normal 4.4 - 11.3 [facility] Comment on above: Performed By: #### C BC ####[facility] [id number] [place] [address] COAGULATION SCREENon 022 aPTT Coag (Bld) [Time] 37 s Normal 26 - 39 [facility] Comment on above: Result Comment: THE APTT IS NO LONGER USED FOR MONITORING UNFRACTIONATED HEPARIN THERAPY. FOR MONITORING HEPARIN THERAPY, USE THE HEPARIN ASSAY. Performed By: #### C OAGS ####[facility] [id number] [place] [address] PT Coag (PPP) [Time] 12.6 s Normal 9.8 - 13.4 [facility] Comment on above: Performed By: #### C OAGS ####[facility] [id number] [place] [address] PT, INR 1.1 Normal 0.9 - 1.1 [facility] Comment on above: Performed By: #### C OAGS ####[facility] [id number] [place] [address] Discharge Planning [id number] 1 08-15-2021 Discharge Planning Note2 Discharge Planning: [facility] 20[facility] Anticipated Discharge [id number] Discharge Planning 06/14/33 Transitional Care Coordination Progress Note: Patient discussed during interdisciplinary rounds. Team members present: TCC, ENGINEER [employer]PRODUCT, PT/OT, UM, attending Status: obs Payor source: MM Medicare AMPAC 24, Discharge disposition: home Potential Barriers: none ADOD: 06/14/22 Plan per Medical/Surgical team: treatment of sinus node dysfunction with dual chamber pacemaker implant. TCC NOTE-REMOTE: TCC spoke with patient to discuss discharge planning, Discussed how patient manages health at home, Independent in all ADLS. patient states manages his health well at home. No further needs identified at this time. No additional resources or needs identified. Patient plans to return home at discharge and follow up with PCP. Discussed in Interdisciplinary rounds. Holger Morse RN TCC ([facility]) Assessment: Discharge Planning Assessment [id number] Discharge Planning Assessment Completed byHolger Morse RN TCC Primary Contact Name and NumberSuellen Umana [phone] Prior Level of Functioningindependent Lives Withalone(1) Living Arrangementshouse(1) Stated Reason for AdmissionPPM Placement(1) Arrived From[place] (1) PCPChrisdebbi Anne Resource/Environmental Concernsnone(1) Anticipated Transition [place](1) Services Anticipated at Transitionnon(1) Readmission Within the Last 30 Daysno previous admission in last 30 days Transportation Home Who/Howfamily member-private car Discharge Documentation: Discharge/Transfer Date/[id number] 10:55 Discharged Accompanied Byfamily member Transportation Methodprivate car Discharge Modewheelchair Code StatusCode Status order at time of discharge: Full Code Discharge Order Writtenyes [place] DNR Form Sent with Patient and/or Familyn/a Final Disposition.Home Electronic Signatures: Erin Jamison (RN) (Signed 14-Jun-2022 12:52) Authored: Discharge Planning, Discharge Documentation Kailey Corona (ISMAEL) (Signed 15-Jun-2022 08:54) Authored: Discharge Planning, Discharge Documentation Holger Morse (CLIN COOR) (Signed 14-Jun-2022 11:02) Authored: Discharge Planning, Assessment, Discharge Documentation Last Updated: 15-Jun-2022 08:54 by Kailey Corona (RN) References: 1. Data Referenced From Patient Profile - Adult v2 13-Jun-2022 16:04 Normal [facility] Laboratory - Chemistry and C hemistry - challengeon 06-14-2022 Anion gap [Moles/Vol] 14 mmol/L 10 - 20 [employer] [facility] Work Phone: Calcium [Mass/Vol] 9.0 mg/dL 8.6 - 10.3 [employer] [facility] Work Phone: Chloride [Moles/Vol] 104 mmol/L 98 - 107 [employer] [facility] Work Phone: CO2 [Moles/Vol] 25 mmol/L 21 - 32 [employer] [facility] Work Phone: Creatinine [Mass/Vol] 0.90 mg/dL See Below [employer] [facility] Work Phone: Comment on above: Reference Range: 0.5 0 - 1.30 Glucose [Mass/Vol] 97 mg/dL 74 - 99 [employer] [facility] Work Phone: Potassium [Moles/Vol] 4.3 mmol/L 3.5 - 5.3 [employer] [facility] Work Phone: Sodium [Moles/Vol] 139 mmol/L 136 - 145 [employer] [facility] Work Phone: Urea nitrogen [Mass/Vol] 14 mg/dL 6 - 23 [employer] Work Phone: Laboratory - Coagulationon 1 08-15-2021 aPTT Coag (PPP) [Time] 37 s 26 - 39 [employer] Work Phone: Comment on above: THE APTT IS NO LONGE R USED FOR MONITORING UNFRACTIONATED HEPARIN THERAPY. FOR MONITORING HEPARIN THERAPY, USE THE HEPARIN ASSAY. INR Coag (PPP) [Relative time] 1.1 {INR} 0.9 - 1.1 [facility] [place] Work Phone: PT Coag (PPP) [Time] 12.6 s 9.8 - 13.4 [facility] [place] Work [place]: Laboratory - Hematology and Cell countson 06-14-2022 Erythrocyte distribution width (RBC) [Ratio] 13.7 % See Below [facility] [place] Work Phone: Comment on above: Reference Range: 11. 5 - 14.5 Hematocrit (Bld) [Volume fraction] 39.2 % below low threshold See Below [facility] [place] Work Phone: Comment on above: Reference Range: 41. 0 - 52.0 Hemoglobin (Bld) [Mass/Vol] 11.9 g/dL below low threshold See Below [facility] [place] Work Phone: Comment on above: Reference Range: 13. 5 - 17.5 MCHC (RBC) [Mass/Vol] 30.4 g/dL below low threshold See Below [facility] [place] Work Phone: Comment on above: Reference Range: 32. 0 - 36.0 MCV (RBC) [Entitic vol] 94 fL 80 - 100 [facility] [place] Work Phone: Platelets (Bld) [#/Vol] 388 10*3/uL 150 - 450 [facility] [place] Work Phone: RBC (Bld) [#/Vol] 4.19 {x10E12/L} below low threshold See Below [facility] [place] Work Phone: Comment on above: Reference Range: 4.5 0 - 5.90 WBC (Bld) [#/Vol] 10.3 10*3/uL 4.4 - 11.3 [facility] Work Phone: No Panel Informationon 06-14 [email or web address]://[facility] CITYEXPRDWE B0 1:[email or web address]?RetrieveTestB yDateTime?PatientID=[id number]&Date= 2&Time=08%3a33%3a44%3a 00&TestType=ECG&Site=2 &OutputType=PDF&Ext=PD F [facility] Work Phone: Electronic atrial pacemaker [facility] Work Phone: Abnormal [facility] Work Phone: [phone] [facility] Work Phone: [phone] [facility] Work Phone: [phone] 1 [facility] Work Phone: 10 1 [facility] Work Phone: 9 1 [facility] Work Phone: -31 1 [facility] Work Phone: 118 1 [facility] Work Phone: 57 1 [facility] Work Phone: 60 1 [facility] Work Phone: 87 {mL/min/1.73m2} >90 [facility] Work Phone: Comment on above: CALCULATIONS OF SETH MATED GFR ARE PERFORMED USING THE 2020 CKD-EPI STUDY REFIT EQUATION WITHOUT THE RACE VARIABLE FOR THE IDMS-TRACEABLE CREATININE METHODS.[email or web address]://jasn.asnjournals.org/content//[email or web address] Radiologyon 06-14-2022 XR Chest 2 Views Normal [facility] Work Phone: Clinical Event Note-Abnormal CXRon 06-13-2022 Clinical Event Note-Abnormal CXR Clinical Event: Clinical Event Note: TopicAbnormal CXR Details Please see radiology report. Patient is hemodynamically stable and in NAD. Discussed with Dr Romo and RN. Will obtain PA and Lateral CXR in AM. Continue to monitor . Electronic Signatures: Catherine Philip (PAC) (Signed 13-Jun-2022 18:24) Authored: Clinical Event Note Last Updated: 13-Jun-2022 18:24 by Catherine Philip (PAC) Normal [facility] [place] Discharge [id number] Discharge Profile2 Discharge Orders: Anticipated Discharge Date: Anticipated Discharge [id number] Anticipated Discharge Time11:00 Problem List: Admitting Dx: Status post cardiac pacemaker procedure: Catalog Name: Presence of cardiac pacemaker DNAR: Code Status at Discharge: Full Code Second Vp Hr Assessment Interventional: Patient Instructions, Next 24 hours: DO NOT drive a car, operate machinery or power tools. It is recommended that a responsible adult be with you for the first 24 hours. DO NOT drink any alcoholic drinks or take any non-prescriptive medications that contain alcohol for the first 24 hours. DO NOT make any important decisions for the first 24 hours. please follow instructions provided by device nurse. Wound Care: Please follow instructions provided by Device Nurse on wound care. Follow Up Appointment 1: Physician/ Dept/ ServiceDevice Clinic Call to Schedule inPer Device Nurse Provider FINAL REVIEW of Orders: Final Review: Final Review of Medication Reconciliation and Orders Completedby RECORDS MANAGEMENT CLERK Reviewing ProviderSANDY Howard at 14-Jun-2022 10:52:51 Electronic Signatures: Catherine Philip (PAC) (Signed 13-Jun-2022 19:48) Authored: Discharge Orders, Second Vp Hr Assessment Interventional, Gold Form - Logistics System Engineer Summary Yeni Alves (RECORDS MANAGEMENT CLERK-BUTCHER HELPER) (Signed 14-Jun-2022 10:52) Authored: Discharge Orders, Second Vp Hr Assessment Interventional, Provider FINAL REVIEW of Orders Last Updated: 14-Jun-2022 10:52 by Yeni Alves (RECORDS MANAGEMENT CLERK-BUTCHER HELPER) Normal [facility] GLUCOSE-POCTon 06-13-2022 Glucose [Mass/Vol] 88 mg/dL Normal 74 - 99 [facility] Comment on above: Performed By: #### G GENEVIEVE #### [facility] [address] [place] [address] Measurementson 06-13-2022 Measurements Weight: Weight in kg99.3 kilogram(s) Height: Height in cm187.9 centimeter(s) [place] Unit Translation (pounds, inches): Measurement [place] Unit Translations (Adult only): Weight in qym010.919 pound(s) Electronic Signatures: Era Oneill (QUENTIN) (Signed 13-Jun-2022 08:29) Authored: Weight, Height, [place] Unit Translation (pounds, inches) Last Updated: 13-Jun-2022 08:29 by Era Oneill (QUENTIN) Normal [facility] Order Reconciliationon 06-13 Order Reconciliation Page 1 Discharge Reconciliation Document Reconciliation Type: Discharge requested on behalf of Yeni Alves (Advanced Practice Nurse-Admit) done by Yeni Alves ([facility]) Discharge - Reconciliation: 13-Jun-2022 19:39 by: Catherine Philip (PAC) Discharge - Reset to Incomplete: 14-Jun-2022 10:28 by: Yeni Alves ([facility]) Discharge - Reconciliation: 14-Jun-2022 10:30 by: Yeni Alves ([facility]) Discharge - Reset to Incomplete: 14-Jun-2022 10:31 by: Yeni Alves ([facility]) Discharge - Reconciliation: 14-Jun-2022 10:32 by: Yeni Alves ([facility]) Home Medications EnteredHOME MEDICATIONS AT DISCHARGE DateReconciliation Comment/ Additional Information amiodarone 200 mg oral tablet 0.5 tab(s) orally once a day 17-Apr-2022 09:43 amiodarone 200 mg oral tablet 0.5 tab(s) orally once a day 17-Apr-2022 09:43 amiodarone 200 mg oral tablet is continued as amiodarone 200 mg oral tablet atorvastatin 40 mg oral tablet 1 tab(s) orally once a day (at bedtime) 09-Aug-2020 13:59 atorvastatin 40 mg oral tablet 1 tab(s) orally once a day (at bedtime) 09-Aug-2020 13:59 atorvastatin 40 mg oral tablet is continued as atorvastatin 40 mg oral tablet Eye Multivitamin oral tablet 1 tab(s) orally once a day 06-Sep-2021 07:29 Eye Multivitamin oral tablet 1 tab(s) orally once a day 06-Sep-2021 07:29 Eye Multivitamin oral tablet is continued as Eye Multivitamin oral tablet furosemide 20 mg oral tablet 1 tab(s) orally every other day 26-Jan-2022 09:35 furosemide 20 mg oral tablet 1 tab(s) orally every other day 26-Jan-2022 09:35 furosemide 20 mg oral tablet is continued as furosemide 20 mg oral tablet gabapentin 400 mg oral capsule 1 cap(s) orally 3 times a day 17-Apr-2022 08:03 gabapentin 400 mg oral capsule 1 cap(s) orally 3 times a day 17-Apr-2022 08:03 gabapentin 400 mg oral capsule is continued as gabapentin 400 mg oral capsule Jardiance 25 mg oral tablet 1 tab(s) orally once a day (in the morning) 24-Nov-2021 11:07 Jardiance 25 mg oral tablet 1 tab(s) orally once a day (in the morning) 24-Nov-2021 11:07 Jardiance 25 mg oral tablet is continued as Jardiance 25 mg oral tablet lisinopril 10 mg oral tablet 1 tab(s) orally once a day 17-Apr-2022 08:04 lisinopril 10 mg oral tablet 1 tab(s) orally once a day 17-Apr-2022 08:04 lisinopril 10 mg oral tablet is continued as lisinopril 10 mg oral tablet Melatonin 5 mg oral tablet 1 tab(s) orally once a day (at bedtime) 06-Sep-2021 07:30 Melatonin 5 mg oral tablet 1 tab(s) orally once a day (at bedtime) 06-Sep-2021 07:30 Melatonin 5 mg oral tablet is continued as Melatonin 5 mg oral tablet metFORMIN 750 mg oral tablet, extended release 1 tab(s) orally 2 times a day 12-Aug-2020 13:59 metFORMIN 750 mg oral tablet, extended release 1 tab(s) orally 2 times a day 12-Aug-2020 13:59 metFORMIN 750 mg oral tablet, extended release is continued as metFORMIN 750 mg oral tablet, extended release Multiple Vitamins oral tablet 1 tab(s) orally once a day 16-Mar-2020 10:25 Multiple Vitamins oral tablet 1 tab(s) orally once a day 16-Mar-2020 10:25 Multiple Vitamins oral tablet is continued as Multiple Vitamins oral tablet Neuriva Brain performance Plus Therapeutic Multiple Vitamins oral capsule 1 cap(s) orally once a day 06-Sep-2021 07:29 Neuriva Brain performance Plus Therapeutic Multiple Vitamins oral capsule 1 cap(s) orally once a day 06-Sep-2021 07:29 Neuriva Brain performance Plus Therapeutic Multiple Vitamins oral capsule is continued as Neuriva Brain performance Plus Therapeutic Multiple Vitamins oral capsule omeprazole 40 mg oral delayed release capsule 1 cap(s) orally once a day 14-Dec-2021 11:25 omeprazole 40 mg oral delayed release capsule 1 cap(s) orally once a day 14-Dec-2021 11:25 omeprazole 40 mg oral delayed release capsule is continued as omeprazole 40 mg oral delayed release capsule tamsulosin 0.4 mg oral capsule 1 cap(s) orally once a day 14-Dec-2021 11:19 tamsulosin 0.4 mg oral capsule 1 cap(s) orally once a day 14-Dec-2021 11:19 tamsulosin 0.4 mg oral capsule is continued as tamsulosin 0.4 mg oral capsule traZODone 50 mg oral tablet 25 milligram(s) orally once a day (at bedtime) 21-Jul-2020 11:19 traZODone 50 mg oral tablet 25 milligram(s) orally once a day (at bedtime) 21-Jul-2020 11:19 traZODone 50 mg oral tablet is continued as traZODone 50 mg oral tablet Xarelto 20 mg oral tablet 1 tab(s) orally once a day 13-Dec-2021 10:23 Xarelto 20 mg oral tablet 1 tab(s) orally once a day. HOLD XARELTO. MAY RESUME 2021. Discontinued; Copy/Discontinue Xarelto 20 mg oral tablet is continued as Xarelto 20 mg oral tablet and modified ZyrTEC 10 mg oral tablet 1 tab(s) orally once a day 06-Sep-2021 07:30 ZyrTEC 10 mg oral tablet 1 tab(s) orally once a day 06-Sep-2021 07:30 ZyrTEC 10 mg oral tablet is continued as ZyrTEC 10 mg oral tablet Current OrdersDateHOME MEDICATIONS AT DISCHARGE DateReconcilia (more content not included)... Normal [facility] Order Reconciliation Page 1 Admission Reconciliation Document Reconciliation Type: Admission requested on behalf of Catherine Philip (Physician Fruit Sprayer) done by Catherine Philip (PAC) Admission - Reconciliation: 13-Jun-2022 11:56 by: Catherine Philip (PAC) Home MedicationsEnteredLast Dose TakenReconciled with current Order Reconciliation Comment/ Additional Information amiodarone 200 mg oral tablet 0.5 tab(s) orally once a [id number]-Jun-2022 PM Amiodarone Tablet (CORDARONE; PACERONE)DOSE = 100 mg Oral Every 24 Hoursamiodarone 200 mg oral tablet continued as the inpatient order Amiodarone atorvastatin 40 mg oral tablet 1 tab(s) orally once a day (at bedtime) [id number] PM Atorvastatin Tablet (LIPITOR)DOSE = 40 mg Oral Dailyatorvastatin 40 mg oral tablet continued as the inpatient order Atorvastatin Eye Multivitamin oral tablet 1 tab(s) orally once a [id number]-[id number] 022 AM Reviewed and Held furosemide 20 mg oral tablet 1 tab(s) orally every other [id number], Furosemide TabletDOSE = 20 mg Oral Every Other Dayfurosemide 20 mg oral tablet continued as the inpatient order Furosemide gabapentin 300 mg oral capsule 1 cap(s) orally 3 times a day 13-Jun-2022 PM Discontinued gabapentin 400 mg oral capsule 1 cap(s) orally 3 times a [id number]-Jun-2022 PM Gabapentin Capsule (NEURONTIN)DOSE = 400 mg Oral 3 Times a Daygabapentin 400 mg oral capsule continued as the inpatient order Gabapentin Jardiance 25 mg oral tablet 1 tab(s) orally once a day (in the morning) [id number] AM Empagliflozin Tablet (JARDIANCE)DOSE = 25 mg Oral DailyJardiance 25 mg oral tablet continued as the inpatient order Empagliflozin lisinopril 10 mg oral tablet 1 tab(s) orally once a [id number] Lisinopril Tablet (PRINIVIL, ZESTRIL)DOSE = 10 mg Oral Daily lisinopril 10 mg oral tablet continued as the inpatient order Lisinopril Melatonin 5 mg oral tablet 1 tab(s) orally once a day (at bedtime)13-Jun-2022 PM Reviewed and Held metFORMIN 750 mg oral tablet, extended release 1 tab(s) orally 2 times a day PM metFORMIN Extended Release (GLUCOPHAGE XR) - PEDS Tablet, Extended ReleaseDOSE = 750 mg Oral 2 Times a DayCa mg/DOSE x 1 = 750 mg/Dose (Daily Total is 1,500 mg)metFORMIN 750 mg oral tablet, extended release continued as the inpatient order metFORMIN Extended Release (GLUCOPHAGE XR) - PEDS Multiple Vitamins oral tablet 1 tab(s) orally once a [id number]-Jun-2022 AM Multivitamin with Minerals TabletDOSE = 1 tablet(s) Oral Daily Multiple Vitamins oral tablet continued as the inpatient order Multivitamin with Minerals Neuriva Brain performance Plus Therapeutic Multiple Vitamins oral capsule 1 cap(s) orally once a [id number] 022 PM Reviewed and Held omeprazole 40 mg oral delayed release capsule 1 cap(s) orally once a day [id number] AM Pantoprazole Enteric Coated Tablet (PROTONIX)DOSE = 40 mg Oral Dailyomeprazole 40 mg oral delayed release capsule continued as the inpatient order Pantoprazole tamsulosin 0.4 mg oral capsule 1 cap(s) orally once a [id number]-Jun-2022 AM Tamsulosin Capsule (FLOMAX)DOSE = 0.4 mg Oral Daily tamsulosin 0.4 mg oral capsule continued as the inpatient order Tamsulosin traZODone 50 mg oral tablet 25 milligram(s) orally once a day (at bedtime) [id number] PM traZODone Tablet (DESYREL)DOSE = 25 mg Oral At BedtimetraZODone 50 mg oral tablet continued as the inpatient order traZODone Xarelto 20 mg oral tablet 1 tab(s) orally once a [id number]-[id number] Reviewed and Held ZyrTEC 10 mg oral tablet 1 tab(s) orally once a [id number]-1 022 AM Loratadine Tablet (CLARITIN, ALAVERT)DOSE = 10 mg Oral DailyNotes from Pharmacy: Substitution For Cetirizine (Zyrtec) 10 mg Oral DailyZyrTEC 10 mg oral tablet continued as the inpatient order Loratadine Additional Current Orders Acetaminophen Tablet (TYLENOL)DOSE = 650 mg Oral Every 6 Hours, PRN Pain - Mild (1-3) ceFAZolin 2 gram/ D5W 100 mL Premix IVPB (ANCEF)OnceRecommended Infusion Time: 15 minute(s) Cephalexin Capsule (KEFLEX)DOSE = 500 mg Oral Every 6 HoursStop After 7 Days Codeine 30 mg - Acetaminophen 300 mg Tablet (TYLENOL #3)DOSE = 1 tablet(s) Oral Every 4 Hours, PRN Pain - Mod (4-6) Morphine Injectable DOSE = 2 mg IntraVenous Push Every 4 Hours, PRN Pain - Severe (7-10) Ondansetron Injectable (ZOFRAN)DOSE = 4 mg IntraVenous Push Every 8 Hours, PRN Nausea & Vomiting Zolpidem Tablet (AMBIEN)DOSE = 5 mg Oral At Bedtime, PRN Insomnia Normal [facility] Patient Profile - Adult v2on 06-13-2022 Patient Profile - Adult v2 Profile: Initial Info: How to be AddressedBob(1) Spoken Language PreferredEnglish (1) Source of Informationpatient Stated Reason for AdmissionPPM Placement Wants Family/Rep Notified of Admissionn/a; family present Notify PCPnotify PCP Informed of Patient Visiting Rightsyes Limitations on Visitors/Phone Callsnone Temporary Family Living Arrangements (While Hospitalized)none needed Arrived From[place] Was Admitted To in Past 90 Daysnone Employment Statusretired 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 or 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 Patient Belongingsremains with patient Patient Belongings Remaining with Patientclothing Medications Brought to Hospitalno History of MDROno General Health: Blood Avoidance/Restrictions none(1) Previous Transfusion Reactionno Weight in kg101.7 kilogram(s)(2) Weight in uto379.2 pound(s) Weight Methodactual (measured) (2) Scale Typebed (2) Height in cm187.9 centimeter(s)(2) Height in feet6 feet Height in inches1.98 inch(es) Height Methodstated BMI (kg/m2)28.804 square meter RSP Based Care: Recent Change in Mood/Behaviordenies Major Change/Loss/Stressor/F earsdenies How would you like to participate in your careKeep updated on plan of care What is the number one concern for you during this hospitalizationComfort What is the most important thing we can do to support you during this hospitalizationComfort Is there anything we need to know to best care for dani/a Substance: Smoking Statusnever smoker Health Mgmt: Symptoms/Conditions Managed at Homenone Barriers to Managing Healthnone Relationship/Environ: Significant Exposurenone Resource/Environmental Concernsnone Primary Source of Support/Comfortchild(r en) Lives Withalone Living Arrangementshouse Services Anticipated at Transitionnone Anticipated Transition Tohome Significant IndicatorsComplete Information Review: Allergies, Home Meds and Significant Events have been Reviewed and Verified with Patient/Familyyes ALLERGY, INTOLERANCE, ADVERSE EVENT: Allergies: No Known Allergies: Active Electronic Signatures: Natalie Preston (ISMAEL) (Signed 13-Jun-2022 16:06) Authored: Initial Info, General Health, RSP Based Care, Substance, Health Mgmt, Relationship/Environ, Additional Information Last Updated: 13-Jun-2022 16:06 by Natalie Preston (ISMAEL) References: 1. Data Referenced From Patient Profile - Adult v2 14-Dec-2021 01:23 2. Data Referenced From 1. Vital Signs 13-Jun-2022 13:12 Normal [facility] Radiologyon 06-13-2022 XR Chest Single view Normal [facility] Work Phone: Narrative Note - Outpatient- Heart Failureon 05-31-2022 Narrative Note - Outpatient-Heart Failure Narrative Note: Discipline/ClinicHeart Failure Description Zacarias arrived ambulatory to the Heart Failure Clinic for his scheduled visit. He is here for follow up after we decreased his amiodarone to 100 mg daily d/t dizziness and bradycardia. States he is feeling pretty good.He does report occasional dizziness and lethargy throughout the day, but thinks that it has improved since decreasing his amiodarone. Since his last visit, he had an event monitor that showed consistent bradycardia. He also saw Dr. Romo (EP) and he is going to have a pacemaker implanted on June 13. Denies shortness of breath, PND, or orthopnea. Eating and sleeping without distress. Uses CPAP nightly. Medications reviewed. Plan is to follow up in about one month (prior to his appt with Dr. Anne) for OP labs and reassess how he is feeling after he gets his pacemaker. Reviewed signs and symptoms of increased heart failure and when to call for help. Vitals: HR 57 RR 18 BP 148/62 SpO2 99% on RA Weight: 228.1 lbs Previous Weight: 238.4 lbs Loss of: 10.3 lbs Lung Sounds: Clear Edema: None JVD: Absent Medications Administered: None Medication Titration: None Next Appointment Date: July 07, 2022 @ 7:30 AM Note in EMR for Treating Physician: Dr. Stroud In-House Supervising Physician: Dr. Arrieta Electronic Signatures: Carla Daniel (RN) (Signed 31-May-2022 08:21) Authored: Narrative Note - OP Last Updated: 31-May-2022 08:21 by Carla Daniel (RN) [facility] Office Visit (Cardiology)on 05-11-2022 Follow-up visit Diagnoses/Problems Assessed Afib (427.31) (I48.91) Sinus node dysfunction (427.81) (I49.5) Chief Complaint ROCIO SANDOVAL is being seen for a 6 month follow-up of atrial fibrillation. History of Present Illness Case of a 76y/o man with: 1. HTN 2. DMII 3. ALISHA: on CPAP 4. Persistent atrial fibrillation: Diagnosed in May 2021 as an incidental finding. He is rate controlled. Last ECG in NSR aug 2020. He admits he's been having increased SOB on exertion for the past few months. Most recent event monitor with 100% rate controlled AF. Echo from Jun 2021 with enlarged LA, preserved LV function. UNderwent DCCV in early 2021 but unfortunately was back in AF a few weeks later. He claims he felt better after the shock. He underwent AF RFA on November 2021. There was diffuse scarring, he underwent PVI and posterior wall isolation. Of note, the was marked intraatrial conduction delay 200ms from RA to LA. 5. HFpEF 6. SInus node dysfunction: heart rates between 45-50bpm since ablation. Active Problems Problems Acute non-recurrent maxillary sinusitis (461.0) (J01.00) Afib (427.31) (I48.91) Atypical chest pain (786.59) (R07.89) Bilateral renal stones (592.0) (N20.0) BPH (benign prostatic hyperplasia) (600.00) (N40.0) Bradycardia (427.89) (R00.1) Bronchial pneumonia (485) (J18.0) Carpal tunnel syndrome of right wrist (354.0) (G56.01) Cervical spondylosis (721.0) (M47.812) Chest pain (786.50) (R07.9) Chronic diastolic congestive heart failure (428.32,428.0) (I50.32) Chronic low back pain (724.2,338.29) (M54.50,G89.29) Chronotropic incompetence (426.89) (I45.89) Colon cancer screening (V76.51) (Z12.11) Cough (786.2) (R05.9) Depression (311) (F32.A) Dizziness (780.4) (R42) Encounter for immunization (V03.89) (Z23) Encounter for prostate cancer screening (V76.44) (Z12.5) Erectile dysfunction (607.84) (N52.9) Fatigue (780.79) (R53.83) Generalized osteoarthritis of multiple sites (715.09) (M15.9) GERD (gastroesophageal reflux disease) (530.81) (K21.9) History of kidney stones (V13.01) (Z87.442) Hyperlipemia (272.4) (E78.5) Hypertension, essential, benign (401.1) (I10) Influenza A (487.1) (J10.1) Left inguinal hernia (550.90) (K40.90) Left lower quadrant abdominal pain (789.04) (R10.32) Lumbosacral spondylosis (721.3) (M47.817) Medicare annual wellness visit, subsequent (V70.0) (Z00.00) Mild CAD (414.00) (I25.10) 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) Nocturia (788.43) (R35.1) Obesity (BMI 30-39.9) (278.00) (E66.9) ALISHA on CPAP (327.23,V46.8) (G47.33,Z99.89) 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) Persistent atrial fibrillation (427.31) (I48.19) Phimosis (605) (N47.1) 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 Henderson History of Colonoscopy History of Dermatological cryotherapy ACTINIC KERATOSIS ON FACE PER MDS History of Epidural space injection History of Esophagogastroduodenos copy History of Inguinal hernia repair Open right inguinal hernia repair by Dr. Ignacio in 2001 History of Knee replacement LEFT KNEE PER B JUNE 2015 History of Lumbar vertebral fusion L5 IN 196 History of Nail debridement History of Phacoemulsification of cataract and insertion of intraocular lens RIGHT EYE History of Retinal detachment repair RIGHT EYE History of Sigmoidoscopy flexible 1995 DR LASHELL [place] Past Medical History Problems Bilateral renal stones (592.0) (N20.0) BPH (benign prostatic hyperplasia) (600.00) (N40.0) Carpal tunnel syndrome of right wrist (354.0) (G56.01) Depression (311) (F32.A) Erectile dysfunction (607.84) (N52.9) Generalized osteoarthritis of multiple sites (715.09) (M15.9) GERD (gastroesophageal reflux disease) (530.81) (K21.9) History of actinic keratosis (V13.3) (Z87.2) History of onychomycosis (V12.09) (Z86.19) History of tinea pedis (V12.09) (Z86.19) Hyperlipemia (272.4) (E78.5) Hypertension, essential, benign (401.1) (I10) Obesity (BMI 30-39.9) (278.00) (E66.9) ALISHA on CPAP (327.23,V46.8) (G47.33,Z99.89) 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 Atorvastatin Calcium 40 MG Oral TabletTAKE 1 TABLET AT BEDTIME. Eye Vitamins TABSTAKE (more content not included)... Normal [facility] COMPREHENSIVE PANELon 2021 Albumin [Mass/Vol] 3.6 g/dL Normal 3.4 - 5.0 [facility] Comment on above: Performed By: #### C MP #### [address] [address] ALT [Catalytic activity/Vol] 9 U/L Low 10 - 52 [facility] Comment on above: Result Comment: Lien ents treated with Sulfasalazine may generate falsely decreased results for ALT. Performed By: #### C MP #### [address] [address] AST [Catalytic activity/Vol] 13 U/L Normal 9 - 39 [facility] Comment on above: Performed By: #### C MP #### [address] [address] GFR/1.73 sq M.predicted among non-blacks MDRD (S/P/Bld) [Vol rate/Area] 70 mL/min/{1.73_m2} Normal >90 [facility] Comment on above: Result Comment: CALC ULATIONS OF ESTIMATED GFR ARE PERFORMED USING THE 2020 CKD-EPI STUDY REFIT EQUATION WITHOUT THE RACE VARIABLE FOR THE IDMS-TRACEABLE CREATININE METHODS. https://jasn.asnjournals.org/content//ASN.01757 56118 Performed By: #### C MP #### [address] [address] HCO3 (Bld) [Moles/Vol] 28 mmol/L Normal 21 - 32 [facility] Comment on above: Performed By: #### C MP #### [address] [address] ALP [Catalytic activity/Vol] 75 U/L Normal 33 - 136 [facility] [address] [place] Work Phone: Comment on above: Performed By: #### C MP #### [address] [address] Anion gap [Moles/Vol] 10 mmol/L Normal 10 - 20 - [place] [address] [place] Work Phone: Comment on above: Performed By: #### C MP #### [address] [address] Bilirubin [Mass/Vol] 0.5 mg/dL Normal 0.0 - 1.2 MP-C ardiology- [place] [address] [place] Work Phone: Comment on above: Performed By: #### C MP #### [address] [address] Calcium [Mass/Vol] 9.0 mg/dL Normal 8.6 - 10.3 MP-Car diology- [place] [address] [place] Work Phone: Comment on above: Performed By: #### C MP #### [address] [address] Chloride [Moles/Vol] 106 mmol/L Normal 98 - 107 -C ardiology- [place] [address] [place] Work Phone: Comment on above: Performed By: #### C MP #### [address] [address] Creatinine [Mass/Vol] 1.08 mg/dL Normal 0.50 - 1.30 -[place] [address] [place] Work Phone: Comment on above: Reference Range: 0.5 0 - 1.30 Performed By: #### C MP #### [address] [address] Glucose [Mass/Vol] 122 mg/dL High 74 - 99 -Car diology[address] Work Phone: Comment on above: Performed By: #### C MP #### [address] [address] Potassium [Moles/Vol] 4.3 mmol/L Normal 3.5 - 5.3 [address] Work Phone: Comment on above: Performed By: #### C MP #### [address] [address] Protein [Mass/Vol] 6.4 g/dL Normal 6.4 - 8.2 -[address] Work Phone: Comment on above: Performed By: #### C MP #### [address] [address] Sodium [Moles/Vol] 140 mmol/L Normal 136 - 145 -[address] Work Phone: Comment on above: Performed By: #### C MP #### [address] [address] Urea nitrogen [Mass/Vol] 18 mg/dL Normal 6 - 23 -[address] Work Phone: Comment on above: Performed By: #### C MP #### [address] [address] Laboratory - Chemistry and C hemistry - challengeon 04-17-2022 Albumin BCP dye [Mass/Vol] 3.6 g/dL 3.4 - 5.0 [place] [address] [address] Work Phone: ALT With P-5'-P [Catalytic activity/Vol] 9 U/L below low threshold 10 - 52 [place] [address] [facility] Work Phone: Comment on above: Patients treated wit h Sulfasalazine may generate falsely decreased results for ALT. AST With P-5'-P [Catalytic activity/Vol] 13 U/L 9 - 39 -[place] [address] [address] Work Phone: CO2 [Moles/Vol] 28 mmol/L 21 - 32 -[facility] [place] [address] [address] Work Phone: TSH Qn 2.84 m[IU]/L See Below -[place] [address] [address] Work Phone: Comment on above: Reference Range: 0.4 4 - 3.98 TSH testing is performed using different testing methodology at [facility] than at other [facility]. Direct result comparisons should only be made within the same method. Magnesium, Serumon 2 Magnesium [Mass/Vol] 2.19 mg/dL Normal 1.60 - 2.40 [employer] [place] [address] [address] Work Phone: Comment on above: Reference Range: 1.6 0 - 2.40 Performed By: #### M G #### [place] [address] Narrative Note - Outpatient- Heart Failureon 04-17-2022 Narrative Note - Outpatient-Heart Failure Narrative Note: Discipline/ClinicHeart Failure Description Zacarias arrived ambulatory to the Heart Failure Clinic for his scheduled visit. States he is feeling pretty good. Denies shortness of breath, PND, or orthopnea. Eating and sleeping without distress. He reports that he has dizziness at times and does feel tired at times. He reports that his resting HR at home is between 45-50. A CMP, magnesium and TSH with reflux were drawn. Results and concerns about heart rate and tiredness called to Dr. Stroud. Medications reviewed. Plan is to decrease amiodarone to 100 mg daily and follow up in six weeks. Dr. Stroud would like Zacarias to wear a three-day monitor as well. Call placed to Judy in [facility] to notify her that patient will be coming in today or tomorrow to have this placed. Reviewed signs and symptoms of increased heart failure and when to call for help. Vitals: HR 50 RR 18 BP 128/48 SpO2 97% on RA Weight: 238.4 lbs Previous Weight: 235.5 lbs Gain of: 2.9 lbs Lung Sounds: Clear Edema: None JVD: Absent Labs: CMP, magnesium, TSH with reflux Medications Administered: None Medication Titration: decrease amiodarone to 100 mg daily Next Appointment Date: May 29, 2022 @ 7:30 AM Note in EMR for Treating Physician: Dr. Stroud In-House Supervising Physician: Dr. Travis Beth Electronic Signatures: Carla Daniel (RN) (Signed 17-Apr-2022 09:34) Authored: Narrative Note - OP Last Updated: 17-Apr-2022 09:34 by Carla Daniel (RN) Normal [facility] No Panel Informationon 04-17 70 {mL/min/1.73m2} >90 -[place] [address] [address] Work Phone: Comment on above: CALCULATIONS OF SETH MATED GFR ARE PERFORMED USING THE 2020 CKD-EPI STUDY REFIT EQUATION WITHOUT THE RACE VARIABLE FOR THE IDMS-TRACEABLE CREATININE METHODS.https://jasn.asnjournals.org/content//A SN.7702670416 TSH WITH REFLEX TO FREE T4 I F ABNORMALon 04-17-2022 TSH Qn 2.84 m[IU]/L Normal 0.44 - 3.98 [facility] Comment on above: Result Comment: TSH testing is performed using different testing methodology at [facility] than at other [facility]. Direct result comparisons should only be made within the same method. Performed By: #### T HYDS #### [address] [address] Established Visit (Pain Medi cine)on 04-10-2022 Established Visit (Pain Medicine) Diagnoses/Problems Lumbosacral spondylosis (721.3) (M47.817) Thoracic spondylosis (721.2) (M47.814) Thoracic radiculitis (724.4) (M54.14) Cervical spondylosis (721.0) (M47.812) Orders Lumbosacral spondylosis, Thoracic spondylosis Start: Gabapentin 400 MG Oral Capsule; TAKE 1 CAPSULE 3 TIMES DAILY Patient Discussion/Summary I discussed with the patient the likely etiology of his symptoms, as well as potential treatment options I addressed options with him. Since the gabapentin has been helpful in terms of pain and function and he has not had side effects we will try increasing it a little bit to 400 mg 3 times a day. We reviewed the results of his x-rays. There were notable for multilevel spondylosis. With regard to the mid back pain I advised him that if it remains persistent the next move would be to check an MRI. He would like to try the increased dose of gabapentin first. With regard to his neck pain if that were to persist we could check an x-ray but he would like to see if that works out on its own. I advised him to continue with his home exercises and I will see him for follow-up in 3 months or sooner if needed. Chief Complaint FUV xray results. today reports just having a stiff neck lt side this morning, and by afternoon 0/10 now and 8-9/10 describes, very stiff and aching, he reports he is tolerating the GPN this is prescribed by Dr Anne. This is a 76-year-old male here for a follow-up appointment for chief complaint of mid back pain. He reports that since his last visit the mid back pain has remained persistent. It seems to go will radiate outward rightward across one of the ribs. He states it is worse first thing in the morning but also with activity. He reports his low back pain has been under good control. He has also had some neck pain on the left side for the past couple of days but nothing down the arms. He denies numbness, tingling, weakness, or loss of bladder or bowel control. He thinks the gabapentin has been helpful. He denies side effects. He is going for massage therapy and doing home exercises as well which helps. The patient's past medical, social, and family history along with medications and allergies are available and were reviewed. Adult Risk Screening Living Will. Living Will: Living will on file. Healthcare POA: Health care proxy on file. Domestic Violence Screen: Does not feel threatened or abused physically, emotionally or sexually. Do you feel UNSAFE? The patient feels safe in the home. Depression/Suicide Screening: He does not have a risk of suicide. He has not had thoughts of harming others. History of Present Illness On a scale of 0 to 10, the patient rates the pain at 0. now and 8-9/10 at tis worst in the afternoon. Pain Location: Neck Pain and Lt side and between scapula. Pain Quality: Aching and stiffness. Sensory/ Motor: Numbness, Pins and [place] and R>L. Timing/Duration: Intermittent and > 12 weeks duration. Controlled Substance: I have personally reviewed the [place]AR[place] report for ROCIO SANDOVAL. I have considered the risks of abuse, dependence, addiction and diversion. Exacerbating Factors: motion and turning head. Alleviating Factors: Medications, Other: ___. 24 Hour Behavior: Symptoms are better in the am. Symptoms are the same as the day progresses. Symptoms are the same in the pm. Symptoms are worse when lying down. Review of Systems All 13 systems were reviewed and are within normal levels except as noted below or per HPI. Positive and pertinent negative responses are noted below or in the HPI. 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) Colon cancer screening (V76.51) (Z12.11) Cough (786.2) (R05.9) Depression (311) (F32.A) Dizziness (780.4) (R42) Encounter for immunization (V03.89) (Z23) Encounter for prostate cancer screening (V76.44) (Z12.5) Erectile dysfunction (607.84) (N52.9) Fatigue (780.79) (R53.83) Generalized osteoarthritis of multiple sites (715.09) (M15.9) GERD (gastroesophageal reflux disease) (530.81) (K21.9) History of kidney stones (V13.01) (Z87.442) Hyperlipemia (272.4) (E78.5) Hypertension, essential, benign (401.1) (I10) Influenza A (487.1) (J10.1) Left inguinal hernia (550.90) (K40.90) Left lower quadrant abdominal pain (789.04) (R10.32) Lumbosacral spondylosis (721.3) (M47.817) Medicare annual wellness visit, subsequent (V70.0) (Z00.00) Mild CAD (414.00) (I25.10) 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 Normal [facility] Office Visit (Primary Care T xt/Forms)on 03-15-2022 Follow-up visit Diagnoses/Problems Assessed Dizziness (780.4) (R42) Hypertension, essential, benign (401.1) (I10) Afib (427.31) (I48.91) Orders Hypertension, essential, benign Renew: Lisinopril 10 MG Oral Tablet; TAKE 1 TABLET DAILY Chief Complaint DIZZINESS, DENIES N/V X YESTERDAY History of Present Illness Was out to breakfast was getting out of his car as he stood up he started to get some dizziness. Did not do much yesterday. Today he does not have any dizziness, but he still feels a little bit off. He has lost about 40 to 50 pounds since the beginning of the year. Has not had any adjustments to his medications. Pulse rate seems on the low side around 60, but he is not on any chronotropic medicine. His systolic blood pressure seems to be okay with the weight loss, but his diastolic blood pressure has been getting lower over time and has remained consistently been under 60 over the summer. For now he has not had any troubles with the dizziness. Over the last couple of days he is drinking some fluids but he has not been well with his water fluid intake. Does not drink any alcohol does drink a little caffeine. Also does have some mild allergies that are not acting up and he uses Zyrtec daily. Labs are good from December. Exam is benign including negative carotid bruits bilateral. Ears are clear no wax tympanic membranes of normal Orthostasis more than vertigo or allergies. Stop the Lasix for the next 4 days. Increase water intake Decrease lisinopril to 10 mg daily. Call next week if he does not feel better with these adjustments. Hypertension - Takes medication without side effects. No CP/SOB/Palpitations. Follows a no added salt diet. Counseled diet, activity and weight loss. afib - sees cardio Scores and Scales PHQ-9 01Sep2021 02:05PM PHQ-9 #1. Little interest or pleasure in doing things2-More than half the days PHQ-9 #2. Feeling down, depressed, or hopelesS2-More than half the days PHQ-9 #3. Trouble falling or staying asleep, or sleeping too much0-Not at all PHQ-9 #4. Feeling tired or having little energy1-Several days PHQ-9 #5. Poor appetite or overeating0-Not at all PHQ-9 #6. Feeling bad about yourself or you are a failure or that you have let yourself or your family down0-Not at all PHQ-9 #7. Trouble concentrating on things, such as reading the newspaper or watch television0-Not at all PHQ-9 #8. Moving or speaking so slowly that other people could have noticed. Or the opposite-being so fidgety or restless that you have been moving around a lot more than usual0-Not at all PHQ-9 #9. Thoughts that you would be better off , or of hurting yourself0-Not at all PHQ-9 #10. If you checked off any problems, how difficult have these problems made it for you to do your work, take care of things at home, or get along with other people?Not difficult at all PHQ-9 Total Score (Please update problem list based on total score)5 PHQ-9 Depression SeverityMild (5-9) Review of Systems Constitutional: feeling tired, but no fever, not feeling poorly and no chills. Eyes: no eyesight problems and no blurry vision. ENT: nasal discharge and nasal congestion. Cardiovascular: no chest pain, no palpitations, no lower extremity edema and no shortness of breath. Respiratory: no cough. Gastrointestinal: no constipation, no diarrhea and no nausea. Neurological: dizziness, but no headache. Active Problems Problems Acute non-recurrent maxillary sinusitis (461.0) (J01.00) Afib (427.31) (I48.91) Atypical chest pain (786.59) (R07.89) Bilateral renal stones (592.0) (N20.0) BPH (benign prostatic hyperplasia) (600.00) (N40.0) Bronchial pneumonia (485) (J18.0) Carpal tunnel syndrome of right wrist (354.0) (G56.01) Chest pain (786.50) (R07.9) Chronic diastolic congestive heart failure (428.32,428.0) (I50.32) Chronic low back pain (724.2,338.29) (M54.50,G89.29) Chronotropic incompetence (426.89) (I45.89) Colon cancer screening (V76.51) (Z12.11) Cough (786.2) (R05.9) Depression (311) (F32.A) Encounter for immunization (V03.89) (Z23) Encounter for prostate cancer screening (V76.44) (Z12.5) Erectile dysfunction (607.84) (N52.9) Fatigue (780.79) (R53.83) Generalized osteoarthritis of multiple sites (715.09) (M15.9) GERD (gastroesophageal reflux disease) (530.81) (K21.9) History of kidney stones (V13.01) (Z87.442) Hyperlipemia (272.4) (E78.5) Hypertension, essential, benign (401.1) (I10) Influenza A (487.1) (J10.1) Left inguinal hernia (550.90) (K40.90) Left lower quadrant abdominal pain (789.04) (R10.32) Lumbosacral spondylosis (721.3) (M47.817) Medicare annual wellness visit, subsequent (V70.0) (Z00.00) Mild CAD (414.00) (I25.10) 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 Normal [facility] Tobacco Screening.on 022 Fall risk assessment b) One or more fall s in the last year MP-Medical [facility] Work Phone: Tobacco use status CPHS b) No [employer] Work Phone: Narrative Note - Outpatient- Heart Failureon 03-07-2022 Narrative Note - Outpatient-Heart Failure Narrative Note: Discipline/ClinicHeart Failure Description Zacarias arrived ambulatory to the Heart Failure Clinic for his scheduled visit. Zacarias states he is feeling good. Zacarias recently had an appointment with Dr. Stroud with no changes. He denies increased shortness of breath, PND, or Orthopnea. Eating and sleeping without distress. Medications reviewed. Amiodarone decreased from 400mg to 200mg due to bradycardia in November, reports heart rate is no longer in the 40s. Plan is to maintain current regimen follow up in six weeks. Reviewed signs and symptoms of increased heart failure and when to call for help. Vitals: BP 124/63, HR 53, RR 18, SPO2 97% on Room air Weight: 235.5 lbs Previous Weight: 242.3 lbs Loss of: 6.8 lbs Lung Sounds: Clear Edema: None JVD: Absent Labs: None Medications Administered: None Medication Titration: None Next Appointment Date: April 17, 2022 @ 7:30 Note in EMR for Treating Physician: Dr. Stroud In-House Supervising Physician: Dr. Clifford Electronic Signatures: Seda Donahue (RN) (Signed 07-Mar-2022 08:00) Authored: Narrative Note - OP Last Updated: 07-Mar-2022 08:00 by Seda Donahue (RN) [facility] No Panel Informationon 03-07 Normal MP-Pain Management-[facility] Work Phone: Radiologyon 03-07-2022 XR Thoracic spine 3 Views Normal MP-Pain Management-[facility] Work Phone: SPINE, LUMBOSACRAL MIN 4 VIE WSon 03-07-2022 SPINE, LUMBOSACRAL MIN 4 VIEWS Patient Name: ROCIO SANDOVAL STUDY: SPINE, LUMBOSACRAL MIN 4 VIEWS; ; 03/07/2022 10:56 am INDICATION: pain M47.817: Lumbosacral spondylosis. COMPARISON: 09/13/18 ACCESSION NUMBER(S): [id number] ORDERING CLINICIAN: SUSANA GIBSON FINDINGS: Levoconvex curvature of the spine, apex at approximately L2. No acute displaced fracture. Multilevel disc space narrowing. Multilevel facet arthropathy. Multilevel anterior osteophyte formation. IMPRESSION: Multilevel spondylosis without acute osseous abnormality. Electronically signed by: ANGUS GODINEZ MD [facility] SPINE, THORACIC, 3 VIEWSon 0 03-07-2022 SPINE, THORACIC, 3 VIEWS Patient Name: ROCIO SANDOVAL STUDY: SPINE, THORACIC, 3 VIEWS; ; 03/07/2022 10:56 am INDICATION: pain M47.814: Thoracic spondylosis. COMPARISON: None. ACCESSION NUMBER(S): [id number] ORDERING CLINICIAN: SUSANA GIBSON FINDINGS: No acute fracture. Multilevel presumed chronic or degenerative endplate irregularities. Multilevel disc space narrowing. Multilevel facet arthropathy. Multilevel anterior osteophyte formation. IMPRESSION: Multilevel spondylosis without acute osseous abnormality. Electronically signed by: ANGUS GODINEZ MD [facility] Tobacco Screening.on 022 Fall risk assessment a) No falls within the last year -[facility] [employer] Work Phone: Tobacco use status CPHS b) No [employer] [employer] Work Phone: Laboratory - Chemistry and C hemistry - challengeon 01-26-2022 Albumin BCP dye [Mass/Vol] 3.6 g/dL 3.4 - 5.0 -Cardiology- [place] Work Phone: ALP [Catalytic activity/Vol] 106 U/L 33 - 136 -Cardiology- [place] Work Phone: ALT With P-5'-P [Catalytic activity/Vol] 17 U/L 10 - 52 -Cardiology- [place] Work Phone: Comment on above: Patients treated wit h Sulfasalazine may generate falsely decreased results for ALT. Anion gap [Moles/Vol] 11 mmol/L 10 - 20 - Cardiology- [place] Work Phone: AST With P-5'-P [Catalytic activity/Vol] 19 U/L 9 - 39 [facility] [place] Work Phone: Bilirubin [Mass/Vol] 0.5 mg/dL 0.0 - 1.2 -C [employer]- [place] Work Phone: Calcium [Mass/Vol] 8.8 mg/dL 8.6 - 10.3 -Car dioly- [place] [address] Work Phone: Chloride [Moles/Vol] 107 mmol/L 98 - 107 MP-C ardiology- [place] Work Phone: CO2 [Moles/Vol] 25 mmol/L 21 - 32 -Cardio logy- [place] Work Phone: Creatinine [Mass/Vol] 1.09 mg/dL See Below [facility] Cardiology- [place] Work Phone: Comment on above: Reference Range: 0.5 0 - 1.30 Glucose [Mass/Vol] 148 mg/dL above high threshold 74 - 99 -Cardiology- [place] Work Phone: Potassium [Moles/Vol] 4.4 mmol/L 3.5 - 5.3 MP- Cardiology- [place] Work Phone: Protein [Mass/Vol] 6.7 g/dL 6.4 - 8.2 MP-Car diology- [place] Work Phone: Sodium [Moles/Vol] 139 mmol/L 136 - 145 MP-Car diology- [place] [address] Work Phone: TSH Qn 2.40 m[IU]/L See Below MP-Cardiolog y- [place] Work Phone: Comment on above: Reference Range: 0.4 4 - 3.98 TSH testing is performed using different testing methodology at [facility] than at other [facility]. Direct result comparisons should only be made within the same method. Urea nitrogen [Mass/Vol] 15 mg/dL 6 - 23 MP-Cardiology- [place] Work Phone: Magnesium, Serumon 2 Magnesium [Mass/Vol] 2.27 mg/dL See Below MP-C ardiology- [place] Work Phone: Comment on above: Reference Range: 1.6 0 - 2.40 No Panel Informationon 01-26 69 {mL/min/1.73m2} >90 MP-Car diology- [place] Work Phone: Comment on above: CALCULATIONS OF SETH MATED GFR ARE PERFORMED USING THE 2020 CKD-EPI STUDY REFIT EQUATION WITHOUT THE RACE VARIABLE FOR THE IDMS-TRACEABLE CREATININE METHODS.https://jasn.asnjournals.org/content//A SN.7143513244 No Panel Informationon 01-19 [email or web address]?RetrieveTestB yDateTime?PatientID=[id number]&Date= 2&Time=08%3a38%3a53%3a 00&TestType=ECG&Site=4 &OutputType=PDF&Ext=PD F MP-Cardiology- [place] [address] Work Phone: 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 MP-Cardiology- [place] [address] Work Phone: Abnormal MP-Cardiology- [place] [address] Work Phone: [phone] MP-Cardiology- [place] 100 Work Phone: [phone] MP-Cardiology- [place] [address] Work Phone: [phone] MP-Cardiology- [place] 100 Work Phone: [phone] MP-Cardiology- [place] [address] Work Phone: [phone] MP-Cardiology- [place] [address] Work Phone: [phone] MP-Cardiology- [place] [address] Work Phone: [phone] 1 MP-Cardiology- [place] [address] Work Phone: -[phone] MP-Cardiology- [place] [address] Work Phone: [phone] MP-Cardiology- [place] 100 Work Phone: [phone] MP-Cardiology- [place] 100 Work Phone: [phone] MP-Cardiology- [place] 100 Work Phone: [phone] MP-Cardiology- [place] [address] Work Phone: [phone] MP-Cardiology- [place] [address] Work Phone: [phone] MP-Cardiology- [place] [address] Work Phone: Tobacco Screening.on 022 Fall risk assessment a) No falls within the last year [employer] [place] Work Phone: Tobacco use status CP b) No [employer] [place] Work Phone: Tobacco Screening.on 022 Adult depression screening assessment No [employer] [facility] Work Phone: Fall risk assessment a) No falls within the last year [employer] [facility] Work Phone: Tobacco use status CPHS b) No [facility] Work Phone: Prostate Spec.Ag, Screenon 0 12-30-2021 Prostate specific Ag [Mass/Vol] 0.89 ng/mL See Below [facility] Work Phone: Comment on above: Reference Range: 0.0 0 - 4.00The FDA requires that the method used for PSA assay be reported to the physician. Values obtained with different assay methods must not be used interchangeably. This testwas performed at [facility] using the Access Hybritech PSA assay is a two-site immunoenzymatic sandwich assay. The assay is approved for measurement of prostate-specific antigen (PSA)in serum and may be used in conjunction with a digital rectal examination in men 50 years and older as an aid in detection of prostate cancer.9-Pxsje-obasciynr inhibitors (e.g. Proscar, Finasteride, Avodart, Dutasteride and Shayy) for the treatment of BPH have been shown to lower PSA levels by an average of 50% after 6 months of treatment. Admission Risk Screen - Adul ton 12-14-2021 Admission Risk Screen - Adult Allergies: Allergies: No Known Allergies: Patient Verification: New W ID Band Applied in my Departmentno Type of ID Patient is WearingW wristband, but not applied here Patient Transferred from Other Facility ([facility], [facility],etc)no Patient Identity Verified Bypatient ID Band FULL Name, include Middle, spelling matches patient's ID used for verificationyes ID Band Matches Patient ID used for Verficationyes ID Band MRN Matches EMR MRNyes Visitor Restriction: Coronavirus Visitor Restriction: Reasonable restrictions to in-person visitors will be observed due to current coronavirus pandemic. Travel History: COVID-19 Screening Completedno exposure or symptoms Travel or Exposure Past 30 DaysNO travel to International locations in the past 30 days Ebola AlertFor Ebola-like Symptoms: Isolate Patient and Notify Provider/Appellate Court Judge For Contact: Notify Provider/Appellate Court Judge Advance Directive: Advance Directive/DNRno Advance Directive Information Givenpatient/family declined Lloyd Fall Screen: History of falling (immediate or previous)no (0) Secondary Diagnosisno (0) Intravenous Therapy/ Heparin/Saline Lockyes (20) Gait/Transferringweak (10) Ambulatory Aidsnone/bedrest/nurse assist (0) Mental Statusoriented to own ability (0) Score: Low risk (<25). Moderate risk (25-44). High risk (>44).30 Lloyd InterventionsMODERATE INTERVENTIONS: *Low Interventions Plus: * falls risk band/sticker applied to patient, *yellow non-skid footwear, *instruct to call for assistance before getting out of bed, *bed/chair/bedside commode/toilet alarms, *sensory devices/ambulatory aides available and in reach, *medications reviewed for potential side effects and care planning. Family Violence Screen: Are you or have you been threatened or abused physically, emotionally, or sexually by anyoneno Has anyone ever threatened to hurt your family or your petsno Do you feel UNSAFE going back to the place where you are livingno Clinical assessment: Are there any apparent signs of injuries/behaviors that could be related to abuse/neglectno Social Service Consult for abuse/neglect needed this visitno Functional Screen: Functional Screen: In the recent/past 2-4 weeks, patient or family have noticedno issues that require a speech/language consult at this time AM-PAC- Basic Mobility/Daily Activity: Patient baseline bedboundno Learning Assessment (Patient): Patient is Able to be Assessed for Learningyes Factors Influencing Readiness to Learnacuteness of illness Factors that Impact Ability to Learnacuteness of illness Devices/Methods Used to Communicatenone Learning Preferencesverbal instruction Cultural Considerationsnone Developmental Considerationsnone Latter Day Considerationsnone Learning Assessment (Other Learner): Other learner availableno Depression Screen: During the past month, have you often been bothered by feeling down, depressed or hopelessno During the past month, have you often had little interest or pleasure in doing thingsno Have you had any thoughts of harming anyone elseno [place] Suicide: Risk Screen Not Applicable/Able to Answerable to be screened In the Past Month: Have you wished you were or could go to sleep and not wake upno In the Past Month: Have you had any actual thoughts of killing yourselfno Lifetime: Have you ever done, started to do, or prepared to do anything to end your lifeno [place] Suicide Risknegative Adult Nutrition Screen: Have you recently lost weight without tryingno Have you been eating poorly because of a decreased appetiteno Malnutrition Screening Tool Score0 Malnutrition Screening Tool RiskMST = 0 or 1 Not at risk. Eating well with little or no weight loss Nutrition Consult needed this visitno Can Patient Participate in Room Serviceyes Patient requires Paper Dishes/Plastic Utensilsno Pain Screen: Pain Scalenumerical 0-10 Pain Scale Educationteaching provided Current Pain Level3 = Mild Acceptable Pain Level3 = Mild Expression of Pain (nonverbal)verbalizati on Chronic Painyes Chronic Back pain locationupper, lower Spiritual Screen: Are there any cultural, spiritual, cheondoism practices/values/needs that are important for us to knowno CAGE: Is this an injured patient at a Tra[place] Center [place]): no Vaccinations: Vaccination - Influenza Vaccination Screen: Is it flu season (between and September 29)No Vaccination - Pneumonia Vaccination Screen: Patient has received a previous pneumonia vaccine:yes (given either at or after age 65) Harrison: Skin - Harrison Scale: Harrison: Sensory Perception (response to environment)(3) slightly limited Harrison: Moisture (degree skin exposed to moisture)(4) rarely moist Harrison: Activity (ability to walk)(3) walks occasionally Harrison: Mobility (amount (more content not included)... Normal [facility] BASIC METABOLIC PANELon 11-30 eGFR MALE >90 Normal >90 [facility] Comment on above: Result Comment: CALC ULATIONS OF ESTIMATED GFR ARE PERFORMED USING THE 2020 CKD-EPI STUDY REFIT EQUATION WITHOUT THE RACE VARIABLE FOR THE IDMS-TRACEABLE CREATININE METHODS. https://jasn.asnjournals.org/content/early//ASN.35979 53192 Performed By: #### B MP ####[facility] [id number] [place] [address] HCO3 (Bld) [Moles/Vol] 23 mmol/L Normal 21 - 32 [facility] Comment on above: Performed By: #### B MP ####[facility] [id number] [place] [address] Anion gap [Moles/Vol] 12 mmol/L Normal 10 - 20 [facility] Work Phone: Comment on above: Performed By: #### B MP ####[facility] [id number] [place] [address] Calcium [Mass/Vol] 8.2 mg/dL Low 8.6 - 10.3 [facility] Work Phone: Comment on above: Performed By: #### B MP ####[facility] [id number] [place] [address] Chloride [Moles/Vol] 109 mmol/L High 98 - 107 [facility] Work Phone: Comment on above: Performed By: #### B MP ####[facility] [id number] [facility] [place] [address] Creatinine [Mass/Vol] 0.79 mg/dL Normal 0.50 - 1.30 [facility] Work Phone: Comment on above: Reference Range: 0.5 0 - 1.30 Performed By: #### B MP ####[facility] [id number] [facility] [place] [place] [address] Glucose [Mass/Vol] 91 mg/dL Normal 74 - 99 [facility] Work Phone: Comment on above: Performed By: #### B MP ####[facility] [id number] [place] [address] Potassium [Moles/Vol] 3.9 mmol/L Normal 3.5 - 5.3 [facility] Work Phone: Comment on above: Performed By: #### B MP ####[facility] [id number] [place] [address] Sodium [Moles/Vol] 140 mmol/L Normal 136 - 145 [facility] Work Phone: Comment on above: Performed By: #### B MP ####[facility] [id number] [place] [address] Urea nitrogen [Mass/Vol] 13 mg/dL Normal 6 - 23 [facility] Work Phone: Comment on above: Performed By: #### B MP ####[facility] [id number] [facility] [place] [address] CBCon 12-14-2021 Erythrocyte distribution width (RBC) [Ratio] 14.4 % Normal 11.5 - 14.5 [facility] Comment on above: Performed By: #### C BC ####[facility] [id number] [facility] [place] [address] Hematocrit (Bld) [Volume fraction] 35.5 % Low 41.0 - 52.0 [facility] Comment on above: Performed By: #### C BC ####[facility] [id number] [place] [address] Hemoglobin (Bld) [Mass/Vol] 10.5 g/dL Low 13.5 - 17.5 [facility] Comment on above: Performed By: #### C BC ####[facility] [id number] [place] [address] MCHC (RBC) [Mass/Vol] 29.6 g/dL Low 32.0 - 36.0 [facility] Comment on above: Performed By: #### C BC ####[facility] [id number] [place] [address] MCV (RBC) [Entitic vol] 97 fL Normal 80 - 100 [facility] Comment on above: Performed By: #### C BC ####[facility] [id number] [place] [address] Platelets (Bld) [#/Vol] 294 10*3/uL Normal 150 - 450 [facility] Comment on above: Performed By: #### C BC ####[facility] [id number] [place] [address] RBC 3.66 x10E12/L Low 4.50 - 5.90 [facility] Comment on above: Performed By: #### C BC ####[facility] [id number] [place] [address] WBC (Bld) [#/Vol] 8.9 10*3/uL Normal 4.4 - 11.3 [facility] Comment on above: Performed By: #### C BC ####[facility] [id number] [place] [address] Discharge [id number] Discharge Profile2 Discharge Orders: Anticipated Discharge Date: Anticipated Discharge [id number] DNAR: Code Status at Discharge: Full Code Second Vp Hr Assessment Interventional: Patient Instructions, Next 24 hours: DO NOT drive a car, operate machinery or power tools. It is recommended that a responsible adult be with you for the first 24 hours. DO NOT drink any alcoholic drinks or take any non-prescriptive medications that contain alcohol for the first 24 hours. DO NOT make any important decisions for the first 24 hours. Activity: You are advised to go directly home from the hospital. DO NOT lift anything heavier than 10 pounds for one week, this allows for proper healing of the groin. No excessive exercise or treadmill use for one week. You may walk and do stairs, slowly. No sexual activities for 24 hours after you arrive home. Wound Care: If slight bleeding should occur at site, lie down and have someone apply firm pressure just above the puncture site for 5 minutes. If it continues or is profuse, call 911. Always notify your doctor if bleeding occurs. Keep site clean and dry. Let air dry or you may use a simple bandaid. Gently cleanse the puncture site in your groin with soap and water only. You may experience some tenderness, bruising or minimal inflammation. If you have any concerns, you may contact the Second Vp Hr Assessment or if any of these symptoms become excessive, contact your artist blacksmith or go to the emergency room. No tub baths, soaking, or swimming for one week. May shower the next day after your procedure. Diet: You may resume your normal diet. However it is better to start with liquids such as juices then soup and crackers, and gradually work up to solid foods. Other Instructions: If you develop diffficulty breathing, rash, hives, severe nausea, vomiting, light-headedness or any signs of infection, immediately contact your doctor and go to the nearest emergency room. If you have any questions about the effects of the sedative drugs or groin care, call the physician who performed your procedure. If your doctor has prescribed aspirin and/or clopidogrel (Plavix) or prasugrel (Effient) or ticagrelor (Brilinta) and you have a stent in your heart arteries, DO NOT STOP THESE MEDICATIONS for any reason without talking first to your artist blacksmith. You must take your aspirin, clopidogrel (Plavix), prasugrel (Effient), or ticagrelor (Brilinta) every day without missing a single dose. If you are getting low on these medications, contact your physician immediately for a refill. Follow Up Appointment 1: Call to Schedule in6 weeks Scheduled Date/[id number] 09:40 [facility] Phone [phone] Provider FINAL REVIEW of Orders: Final Review: Final Review of Medication Reconciliation and Orders Completedby RECORDS MANAGEMENT CLERK Reviewing ProviderSANDY Howard at 14-Dec-2021 11:13:17 Electronic Signatures: Yeni Alves (ISMAEL-BUTCHER HELPER) (Signed 14-Dec-2021 11:13) Authored: Discharge Orders, Second Vp Hr Assessment Interventional, Provider FINAL REVIEW of Orders, Gold Form - Logistics System Engineer Summary Last Updated: 14-Dec-2021 11:13 by Yeni Alves (RECORDS MANAGEMENT CLERK-BUTCHER HELPER) Normal [facility] GLUCOSE-POCTon 12-14-2021 Glucose [Mass/Vol] 117 mg/dL High 74 - 99 [facility] Comment on above: Performed By: #### G GENEVIEVE ####[facility] [id number] [place] [address] Glucose [Mass/Vol] 101 mg/dL High 74 - 99 [facility] Comment on above: Performed By: #### Ana VALLEJO #### [facility] [address] [place] [address] Laboratory - Chemistry and C hemistry - challengeon 12-14-2021 Glucose [Mass/Vol] 117 mg/dL above high threshold [address] [place] [address] Work Phone: Glucose [Mass/Vol] 101 mg/dL above high threshold [address] [place] [address] Work Phone: CO2 [Moles/Vol] 23 mmol/L [facility] Work Phone: Laboratory - Hematology and Cell countson 12-14-2021 Erythrocyte distribution width (RBC) [Ratio] 14.4 % See Below [facility] Work Phone: Comment on above: Reference Range: 11. 5 - 14.5 Hematocrit (Bld) [Volume fraction] 35.5 % below low threshold See Below [facility] Work Phone: Comment on above: Reference Range: 41. 0 - 52.0 Hemoglobin (Bld) [Mass/Vol] 10.5 g/dL below low threshold See Below [facility] Work Phone: Comment on above: Reference Range: 13. 5 - 17.5 MCHC (RBC) [Mass/Vol] 29.6 g/dL below low threshold See Below [facility] Work Phone: Comment on above: Reference Range: 32. 0 - 36.0 MCV (RBC) [Entitic vol] 97 fL 80 - 100 [facility] Work Phone: Platelets (Bld) [#/Vol] 294 10*3/uL 150 - 450 [facility] Work Phone: RBC (Bld) [#/Vol] 3.66 {x10E12/L} below low threshold See Below [facility] Work Phone: Comment on above: Reference Range: 4.5 0 - 5.90 WBC (Bld) [#/Vol] 8.9 10*3/uL 4.4 - 11.3 [facility] Work Phone: No Panel Informationon 12-14 >90 >90 [facility] Work Phone: Comment on above: CALCULATIONS OF SETH MATED GFR ARE PERFORMED USING THE 2020 CKD-EPI STUDY REFIT EQUATION WITHOUT THE RACE VARIABLE FOR THE IDMS-TRACEABLE CREATININE METHODS.https://jasn.asnjournals.org/content//A SN.7254471494 Order Reconciliationon 12-14 Order Reconciliation Page 1 Discharge Reconciliation Document Reconciliation Type: Discharge requested on behalf of Yeni Alves (Advanced Practice Nurse-Admit) done by Yeni Alves (RECORDS MANAGEMENT CLERK-[facility]) Discharge - Reconciliation: 14-Dec-2021 11:27 by: Yeni Alves (RECORDS MANAGEMENT CLERK-BUTCHER HELPER) Home Medications EnteredHOME MEDICATIONS AT DISCHARGE DateReconciliation Comment/ Additional Information atorvastatin 40 mg oral tablet 1 tab(s) orally once a day (at bedtime) 09-Aug-2020 13:59 atorvastatin 40 mg oral tablet 1 tab(s) orally once a day (at bedtime) 09-Aug-2020 13:59 atorvastatin 40 mg oral tablet is continued as atorvastatin 40 mg oral tablet Eye Multivitamin oral tablet 1 tab(s) orally once a day 06-Sep-2021 07:29 Eye Multivitamin oral tablet 1 tab(s) orally once a day 06-Sep-2021 07:29 Eye Multivitamin oral tablet is continued as Eye Multivitamin oral tablet eye vitamins 1 tab(s) orally once a day 13-Dec-2021 10:24 Discontinued; Discontinue from ORM eye vitamins is not required furosemide 20 mg oral tablet 1 tab(s) orally once a day 04-Jul-2021 08:43 furosemide 20 mg oral tablet 1 tab(s) orally once a day 04-Jul-2021 08:43 furosemide 20 mg oral tablet is continued as furosemide 20 mg oral tablet gabapentin 300 mg oral tablet 1 cap(s) orally 2 times a day//(take 1 with dinner and then 1 cap at bedtime 13-May-2021 13:25 gabapentin 300 mg oral tablet 1 cap(s) orally 2 times a day//(take 1 with dinner and then 1 cap at bedtime 13-May-2021 13:25 gabapentin 300 mg oral tablet is continued as gabapentin 300 mg oral tablet Jardiance 25 mg oral tablet 1 tab(s) orally once a day (in the morning) 24-Nov-2021 11:07 Jardiance 25 mg oral tablet 1 tab(s) orally once a day (in the morning) 24-Nov-2021 11:07 Jardiance 25 mg oral tablet is continued as Jardiance 25 mg oral tablet lisinopril 20 mg oral tablet 1 tab(s) orally once a day 13-May-2021 14:31 lisinopril 20 mg oral tablet 1 tab(s) orally once a day 13-May-2021 14:31 lisinopril 20 mg oral tablet is continued as lisinopril 20 mg oral tablet Melatonin 5 mg oral tablet 1 tab(s) orally once a day (at bedtime) 06-Sep-2021 07:30 Melatonin 5 mg oral tablet 1 tab(s) orally once a day (at bedtime) 06-Sep-2021 07:30 Melatonin 5 mg oral tablet is continued as Melatonin 5 mg oral tablet metFORMIN 750 mg oral tablet, extended release 1 tab(s) orally 2 times a day 12-Aug-2020 13:59 metFORMIN 750 mg oral tablet, extended release 1 tab(s) orally 2 times a day 12-Aug-2020 13:59 metFORMIN 750 mg oral tablet, extended release is continued as metFORMIN 750 mg oral tablet, extended release Multiple Vitamins oral tablet 1 tab(s) orally once a day 16-Mar-2020 10:25 Multiple Vitamins oral tablet 1 tab(s) orally once a day 16-Mar-2020 10:25 Multiple Vitamins oral tablet is continued as Multiple Vitamins oral tablet Neuriva Brain performance Plus Therapeutic Multiple Vitamins oral capsule 1 cap(s) orally once a day 06-Sep-2021 07:29 Neuriva Brain performance Plus Therapeutic Multiple Vitamins oral capsule 1 cap(s) orally once a day 06-Sep-2021 07:29 Neuriva Brain performance Plus Therapeutic Multiple Vitamins oral capsule is continued as Neuriva Brain performance Plus Therapeutic Multiple Vitamins oral capsule omeprazole 40 mg oral delayed release capsule 1 cap(s) orally once a day 21-Jul-2020 11:22 omeprazole 40 mg oral delayed release capsule 1 cap(s) orally once a day 14-Dec-2021 11:25 Discontinued; Copy/Discontinue Prescription is created for omeprazole 40 mg oral delayed release capsule tamsulosin 0.4 mg oral capsule 1 cap(s) orally once a day 16-Mar-2020 10:22 tamsulosin 0.4 mg oral capsule 1 cap(s) orally once a day 14-Dec-2021 11:19 Discontinued; Discontinue from ORM tamsulosin 0.4 mg oral capsule is replaced with tamsulosin 0.4 mg oral capsule traZODone 50 mg oral tablet 25 milligram(s) orally once a day (at bedtime) 21-Jul-2020 11:19 traZODone 50 mg oral tablet 25 milligram(s) orally once a day (at bedtime) 21-Jul-2020 11:19 traZODone 50 mg oral tablet is continued as traZODone 50 mg oral tablet Xarelto 20 mg oral tablet 1 tab(s) orally once a day 13-Dec-2021 10:23 Xarelto 20 mg oral tablet 1 tab(s) orally once a day 13-Dec-2021 10:23 Xarelto 20 mg oral tablet is continued as Xarelto 20 mg oral tablet ZyrTEC 10 mg oral tablet 1 tab(s) orally once a day 06-Sep-2021 07:30 ZyrTEC 10 mg oral tablet 1 tab(s) orally once a day 06-Sep-2021 07:30 ZyrTEC 10 mg oral tablet is continued as ZyrTEC 10 mg oral tablet Current OrdersDateHOME MEDICATIONS AT DISCHARGE DateReconciliation Comment/ Additional Information Acetaminophen Tablet (TYLENOL)DOSE = 650 mg Oral Every 4 Hours, PRN Pain - Mild (1-3) (PACU) when able to take OralClinician Notes: Marie-operative order ONLY 13-Dec-2021 06:46 acetaminophen 325 mg oral tablet 2 tab(s) orally every 4 hours, As needed, Pain - Mild (1-3) (PACU) when able to take Oral 14-Dec-2021 11:15 Acetaminophen is radha (more content not included)... Normal [facility] Patient Profile - Adult v2on 12-14-2021 Patient Profile - Adult v2 Profile: Initial Info: How to be AddressedBob(1) Spoken Language PreferredEnglish (2) Stated Reason for AdmissionA-fib ablation Primary Contact Name and NumberSuellen Other Contact Names and NumbersJudy Ryna Wants Family/Rep Notified of Admissionn/a; family present Notify PCPnotify PCP Informed of Patient Visiting Rightsyes Arrived [place] Patient Belongingsremains with patient Patient Belongings Remaining with Patientclothing Medications Brought to Hospitalno General Health: Blood Avoidance/Restrictions none(1) Weight in kg113.7 kilogram(s) Weight in fjc101.6 pound(s) Weight Methodactual (measured) Scale Typebed Height in cm187.9 centimeter(s) Height in feet6 feet Height in inches1.98 inch(es) Height Methodstated BMI (kg/m2)32.203 square meter RSP Based Care: How would you like to participate in your careBy staying informed What is the number one concern for you during this hospitalizationGetting better What is the most important thing we can do to support you during this hospitalizationHelp me to get better. Is there anything we need to know to best care for youI have back pain. Substance: Smoking Statusnever smoker Alcohol Usedenies Drug Usedenies Drug 2 Usedenies Health Mgmt: Symptoms/Conditions Managed at Homeendocrine; cardiovascular Cardiovascular Symptoms/Conditionscar diomyopathy; hypertension Cardiovascular Management Strategiesmedication therapy Cardiovascular Managementmanaged Endocrine Symptoms/Conditionsdia betes Endocrine Management Strategiesmedication therapy Endocrine Managementmanaged Relationship/Environ: Resource/Environmental Concernsnone Primary Source of Support/Comfortchild(r en) Lives Withsignificant other Living Arrangementshouse Services Anticipated at Transitionnone Anticipated Transition Tohome Significant IndicatorsComplete Information Review: Allergies, Home Meds and Significant Events have been Reviewed and Verified with Patient/Familyyes ALLERGY, INTOLERANCE, ADVERSE EVENT: Allergies: No Known Allergies: Active Electronic Signatures: Sabas Dumont (RN) (Signed 14-Dec-2021 01:39) Authored: Initial Info, General Health, RSP Based Care, Substance, Health Mgmt, Relationship/Environ, Additional Information Last Updated: 14-Dec-2021 01:39 by Sabas Dumont (ISMAEL) References: 1. Data Referenced From Patient Profile - Procedure 13-Jul-2021 08:11 2. Data Referenced From Triage - ED 25-Aug-2021 10:42 Normal [facility] ACT-HIGH RANGEon 12-13-2021 ACT-HIGH RANGE 245 SECONDS High 96 - 152 [facility] Comment on above: Result Comment: Note new reference range as of 10/04/2018. Target ACT range will vary based on the patient population, clinical status, and surgical intervention occurring. Performed By: #### A CTP ####[facility] [id number] [place] [id number] ACT-HIGH RANGE 351 SECONDS High 96 - 152 [facility] Comment on above: Result Comment: Note new reference range as of 10/04/2018. Target ACT range will vary based on the patient population, clinical status, and surgical intervention occurring. Performed By: #### G GENEVIEVE #### [facility] [address] [place] [address] ACT-HIGH RANGE 317 SECONDS High 96 - 152 [facility] Comment on above: Result Comment: Note new reference range as of 10/04/2018. Target ACT range will vary based on the patient population, clinical status, and surgical intervention occurring. Performed By: #### G GENEVIEVE #### [facility] [address] [place] [address] ACT-HIGH RANGE 349 SECONDS High 96 - 152 [facility] Comment on above: Result Comment: Note new reference range as of 10/04/2018. Target ACT range will vary based on the patient population, clinical status, and surgical intervention occurring. Performed By: #### A CTP ####[facility] [id number] [place] [id number] ACT-HIGH RANGE 343 SECONDS High 96 - 152 [facility] [place] Comment on above: Result Comment: Note new reference range as of 10/04/2018. Target ACT range will vary based on the patient population, clinical status, and surgical intervention occurring. Performed By: #### G GENEVIEVE #### [facility] [address] [place] [id number] ACT-HIGH RANGE 316 SECONDS High 96 - 152 [facility] [place] Comment on above: Result Comment: Note new reference range as of 10/04/2018. Target ACT range will vary based on the patient population, clinical status, and surgical intervention occurring. Performed By: #### G GENEVIEVE #### [facility] [address] [place] [address] ACT-HIGH RANGE 280 SECONDS High 96 - 152 [facility] [place] Comment on above: Result Comment: Note new reference range as of 10/04/2018. Target ACT range will vary based on the patient population, clinical status, and surgical intervention occurring. Performed By: #### G GENEVIEVE #### [facility] [address] [place] [id number] ACT-HIGH RANGE 250 SECONDS High 96 - 152 [facility] [place] Comment on above: Result Comment: Note new reference range as of 10/04/2018. Target ACT range will vary based on the patient population, clinical status, and surgical intervention occurring. Performed By: #### A CTP ####[facility] [id number] [place] [id number] ACT-HIGH RANGE 227 SECONDS High 96 - 152 [facility] [place] Comment on above: Result Comment: Note new reference range as of 10/04/2018. Target ACT range will vary based on the patient population, clinical status, and surgical intervention occurring. Performed By: #### A CTP ####[facility] [id number] [place] [id number] GLUCOSE-POCTon 06-14-2022 Glucose [Mass/Vol] 147 mg/dL High 74 - 99 [facility] Comment on above: Performed By: #### G GENEVIEVE #### [facility] [address] [place] [address] Glucose [Mass/Vol] 116 mg/dL High 74 - 99 [facility] Comment on above: Performed By: #### G GENEVIEVE ####[facility] [id number] [place] [address] Glucose [Mass/Vol] 109 mg/dL High 74 - 99 [facility] Comment on above: Performed By: #### G GENEVIEVE #### [facility] [address] [place] [address] Glucose [Mass/Vol] 102 mg/dL High 74 - 99 [facility] Comment on above: Performed By: #### G GENEVIEVE #### [facility] [address] [place] [address] Laboratory - Chemistry and C hemistry - challengeon 12-13-2021 Glucose [Mass/Vol] 147 mg/dL above high threshold [address] [place] [address] Work Phone: Glucose [Mass/Vol] 116 mg/dL above high threshold [address] [place] [address] Work Phone: Measurementson 12-13-2021 Measurements Weight: Weight in kg111 kilogram(s) Height: Height in cm187.9 centimeter(s) [place] Unit Translation (pounds, inches): Measurement [place] Unit Translations (Adult only): Weight in kla688.713 pound(s) Height in feet6 feet Height in inches2 inch(es) Electronic Signatures: Jenna Smith (ISMAEL) (Signed 13-Dec-2021 10:25) Authored: Weight, Height, [place] Unit Translation (pounds, inches) Last Updated: 13-Dec-2021 10:25 by Jenna Smith (ISMAEL) Normal [facility] [place] No Panel Informationon 12-13 [email or web address] [email or web address]?RetrieveTestB yDateTime?PatientID=[id number]&Date= 2&Time=15%3a38%3a33%3a 00&TestType=ECG&Site=2 &OutputType=PDF&Ext=PD F [facility] Work Phone: Sinus rhythm with 1s t degree AV block with premature atrial complexes [facility] Work Phone: Abnormal [facility] Work Phone: [phone] [facility] Work Phone: [phone] [facility] Work Phone: [phone] [facility] Work Phone: [phone] 1 [facility] Work Phone: [phone] [facility] Work Phone: [phone] 1 [facility] Work Phone: [phone] 1 [facility] Work Phone: -[phone] [facility] Work Phone: [phone] 1 [facility] Work Phone: [phone] [facility] Work Phone: [phone] [facility] Work Phone: 60 1 [facility] Work Phone: 245 {SECONDS} above high threshold 96 - 152 [facility] Work Phone: Comment on above: Note new reference r ramila as of 10/04/2018. Target ACT range will vary based on the patient population, clinical status, and surgical intervention occurring. 351 {SECONDS} above high threshold 96 - 152 [facility] Work Phone: Comment on above: Note new reference r ramila as of 10/04/2018. Target ACT range will vary based on the patient population, clinical status, and surgical intervention occurring. 317 {SECONDS} above high threshold 96 - 152 [facility] Work Phone: Comment on above: Note new reference r ramila as of 10/04/2018. Target ACT range will vary based on the patient population, clinical status, and surgical intervention occurring. 349 {SECONDS} above high threshold 96 - 152 [facility] Work Phone: Comment on above: Note new reference r ramila as of 10/04/2018. Target ACT range will vary based on the patient population, clinical status, and surgical intervention occurring. 343 {SECONDS} above high threshold [address] [place] [address] Work Phone: Comment on above: Note new reference r ramila as of 10/04/2018. Target ACT range will vary based on the patient population, clinical status, and surgical intervention occurring. 316 {SECONDS} above high threshold [address] [place] [address] Work Phone: Comment on above: Note new reference r ramila as of 10/04/2018. Target ACT range will vary based on the patient population, clinical status, and surgical intervention occurring. 280 {SECONDS} above high threshold [address] [place] [address] Work Phone: Comment on above: Note new reference r ramila as of 10/04/2018. Target ACT range will vary based on the patient population, clinical status, and surgical intervention occurring. 250 {SECONDS} above high threshold [address] [place] [address] Work Phone: Comment on above: Note new reference r ramila as of 10/04/2018. Target ACT range will vary based on the patient population, clinical status, and surgical intervention occurring. 227 {SECONDS} above high threshold [address] [place] [address] Work Phone: Comment on above: Note new reference r ramila as of 10/04/2018. Target ACT range will vary based on the patient population, clinical status, and surgical intervention occurring. Order Reconciliationon 12-13 Order Reconciliation Page 1 Admission Reconciliation Document Reconciliation Type: Admission requested on behalf of Yeni Alves (Advanced Practice Nurse-Admit) done by Yeni Alves (RECORDS MANAGEMENT CLERK-[facility]) Admission - Partial Reconciliation: 13-Dec-2021 14:58 by: Yeni Alves (RECORDS MANAGEMENT CLERK-[facility]) Admission - Reconciliation: 13-Dec-2021 15:11 by: Yeni Alves (RECORDS MANAGEMENT CLERK-[facility]) Home MedicationsEnteredLast Dose TakenReconciled with current Order Reconciliation Comment/ Additional Information atorvastatin 40 mg oral tablet 1 tab(s) orally once a day (at bedtime) PM Atorvastatin Tablet (LIPITOR)DOSE = 40 mg Oral Dailyatorvastatin 40 mg oral tablet continued as the inpatient order Atorvastatin Eye Multivitamin oral tablet 1 tab(s) orally once a [id number] Reviewed and Held eye vitamins 1 tab(s) orally once a [id number]-8 AM Reviewed and Held furosemide 20 mg oral tablet 1 tab(s) orally once a [id number]-Zvg-0 AM Furosemide Tablet (LASIX)DOSE = 20 mg Oral Dailyfurosemide 20 mg oral tablet continued as the inpatient order Furosemide gabapentin 300 mg oral tablet 1 cap(s) orally 2 times a day//(take 1 with dinner and then 1 cap at -[id number] un-2022 PM Gabapentin Capsule (NEURONTIN)DOSE = 300 mg Oral 2 Times a Daygabapentin 300 mg oral tablet continued as the inpatient order Gabapentin Jardiance 25 mg oral tablet 1 tab(s) orally once a day (in the morning) Reviewed and Held lisinopril 20 mg oral tablet 1 tab(s) orally once a [id number]-4 Lisinopril Tablet (PRINIVIL, ZESTRIL)DOSE = 20 mg Oral Dailylisinopril 20 mg oral tablet continued as the inpatient order Lisinopril Melatonin 5 mg oral tablet 1 tab(s) orally once a day (at bedtime)13-Dec-2021 PM Melatonin TabletDOSE = 5 mg Oral Daily 1800, PRN Insomnia Melatonin 5 mg oral tablet continued as the inpatient order Melatonin metFORMIN 750 mg oral tablet, extended release 1 tab(s) orally 2 times a day PM Reviewed and Held Multiple Vitamins oral tablet 1 tab(s) orally once a [id number]-Qry-105313-Dec-2021 AM Reviewed and Held Neuriva Brain performance Plus Therapeutic Multiple Vitamins oral capsule 1 cap(s) orally once a [id number]-Fiy-6 AM Reviewed and Held omeprazole 40 mg oral delayed release capsule 1 cap(s) orally once a day AM Pantoprazole Enteric Coated Tablet (PROTONIX)DOSE = 40 mg Oral Dailyomeprazole 40 mg oral delayed release capsule continued as the inpatient order Pantoprazole tamsulosin 0.4 mg oral capsule 1 cap(s) orally once a [id number]-[id number]-Dec-2021 AM Tamsulosin Capsule (FLOMAX)DOSE = 0.4 mg Oral Daily tamsulosin 0.4 mg oral capsule continued as the inpatient order Tamsulosin traZODone 50 mg oral tablet 25 milligram(s) orally once a day (at bedtime) PM traZODone Tablet (DESYREL)DOSE = 50 mg Oral At BedtimetraZODone 50 mg oral tablet continued as the inpatient order traZODone Xarelto 20 mg oral tablet 1 tab(s) orally once a [id number]-Bez-3 AM Blood in Urine, Monitor for Xarelto 20 mg oral tablet continued as the inpatient order Blood in Urine, Monitor for; Xarelto 20 mg oral tablet continued as the inpatient order Bleeding, Monitor for; Xarelto 20 mg oral tablet continued as the inpatient order Rivaroxaban Xarelto 20 mg oral tablet 1 tab(s) orally once a [id number]-Gkm-9 AM Bleeding, Monitor for Xarelto 20 mg oral tablet continued as the inpatient order Blood in Urine, Monitor for; Xarelto 20 mg oral tablet continued as the inpatient order Bleeding, Monitor for; Xarelto 20 mg oral tablet continued as the inpatient order Rivaroxaban Xarelto 20 mg oral tablet 1 tab(s) orally once a [id number]-[id number]-Ume-4 AM Rivaroxaban Tablet (XARELTO)DOSE = 20 mg Oral ( every 1 day: 18:00 )Clinician Notes: WITH THE EVENING MEALXarelto 20 mg oral tablet continued as the inpatient order Blood in Urine, Monitor for; Xarelto 20 mg oral tablet continued as the inpatient order Bleeding, Monitor for; Xarelto 20 mg oral tablet continued as the inpatient order Rivaroxaban ZyrTEC 10 mg oral tablet 1 tab(s) orally once a [id number]-4 Reviewed and Held Additional Current Orders Acetaminophen Tablet (TYLENOL)DOSE = 650 mg Oral Every 4 Hours, PRN Pain - Mild (1-3) (PACU) when able to take OralClinician Notes: Marie-operative order ONLY Albuterol 2.5 mg/ 3 mL Nebulizer Soln (PROVENTIL)DOSE = 3 mL Inhalation Once via Nebulizer, PRN Wheezing (PACU)Clinician Notes: Marie-operative order ONLY Amiodarone 150 mg/ D5W 100 mL Premix Bolus (NEXTERONE)OnceRecomme nded Infusion Time: 15 minute(s) Amiodarone Tablet (CORDARONE; PACERONE)DOSE = 400 mg Oral Every 12 HoursClinician Notes: Take 400 mg twice day x 10 days HYDROmorphone Injectable (DILAUDID)DOSE = 0.25 mg IntraVenous Push Every 5 Minutes, PRN Pain - Mod (more content not included)... Normal [facility] [place] Complete Blood Count + Diffe rentialon 12-12-2021 Basophils/100 WBC (Bld) 0.4 % 0.0 - 2.0 -Path[facility]To [facility] Work Phone: Erythrocyte distribution width (RBC) [Ratio] 14.8 % above high threshold See Below [facility] Work Phone: Comment on above: Reference Range: 11. 5 - 14.5 Hematocrit (Bld) [Volume fraction] 37.8 % below low threshold See Below [facility] Work Phone: Comment on above: Reference Range: 41. 0 - 52.0 Hemoglobin (Bld) [Mass/Vol] 11.9 g/dL below low threshold See Below [facility] [employer] [facility] Work Phone: Comment on above: Reference Range: 13. 5 - 17.5 Lymphocytes/100 WBC (Bld) 32.0 % See Below [facility] Work Phone: Comment on above: Reference Range: 13. 0 - 44.0 MCHC (RBC) [Mass/Vol] 31.6 g/dL below low threshold See Below [facility] Work Phone: Comment on above: Reference Range: 32. 0 - 36.0 MCV (RBC) [Entitic vol] 90 fL 80 - 100 [facility] Work Phone: Monocytes/100 WBC (Bld) 6.7 % 2.0 - 10.0 [facility] Work Phone: Neutrophils/100 WBC (Bld) 56.9 % See Below [facility] Work Phone: Comment on above: Reference Range: 40. 0 - 80.0 Platelets (Bld) [#/Vol] 364 10*3/uL 150 - 450 -[facility] Work Phone: RBC (Bld) [#/Vol] 4.18 {x10E12/L} below low threshold See Below [facility] Work Phone: Comment on above: Reference Range: 4.5 0 - 5.90 WBC (Bld) [#/Vol] 7.2 10*3/uL 4.4 - 11.3 [facility] Work Phone: Complete Blood Count + Differential 0.00 {x10E9/L} See Below [facility] Work Phone: Comment on above: Reference Range: 0.0 0 - 0.10 Complete Blood Count + Differential 0.30 {x10E9/L} See Below [facility] Work Phone: Comment on above: Reference Range: 0.0 0 - 0.40 Complete Blood Count + Differential 0.50 {x10E9/L} See Below [facility] Work Phone: Comment on above: Reference Range: 0.0 5 - 0.80 Complete Blood Count + Differential 2.30 {x10E9/L} See Below [facility] Work Phone: Comment on above: Reference Range: 0.8 0 - 3.00 Complete Blood Count + Differential 4.10 {x10E9/L} See Below [facility] Work Phone: Comment on above: Reference Range: 1.6 0 - 5.50 Percent differential counts (%) should be interpreted in the context of the absolute cell counts (cells/L). Complete Blood Count + Differential 4.0 % 0.0 - 6.0 [facility] Work Phone: Hemoglobin A1Con 12-12-2021 Glucose [Mass/Vol] 157 mg/dL [facility] Work Phone: HbA1c (Bld) [Mass fraction] 7.1 % Abnormal [facility] Work Phone: Comment on above: Diagnosis of Diabete s-Adults Non-Diabetic: < or = 5.6% Increased risk for developing diabetes: 5.7-6.4% Diagnostic of diabetes: > or = 6.5%. Monitoring of Diabetes Age (y) Therapeutic Goal (%) Adults: >18 <7.0 Pediatrics: 13-18 <7.5 7-12 <8.0 0- 6 7.5-8.5 [employer]. Diabetes Care 33(S1), Jul 2009. Laboratory - Chemistry and C hemistry - challengeon 12-12-2021 Albumin BCP dye [Mass/Vol] 3.9 g/dL 3.4 - 5.0 [facility] [place] [facility] [place]: Albumin Ql (U) 100.0 mg/L See Below [facility] [place]: Comment on above: Reference Range: Not Established Albumin/Creatinine DL <= 20 mg/L (U) [Mass ratio] 104.2 {ug/mg_crt} above high threshold 0.0 - 30.0 [employer] [facility] Work Phone: ALP [Catalytic activity/Vol] 139 U/L above high threshold 33 - 136 [facility] [place]: ALT With P-5'-P [Catalytic activity/Vol] 16 U/L 10 - 52 [facility] [place]: Comment on above: Patients treated wit h Sulfasalazine may generate falsely decreased results for ALT. Anion gap [Moles/Vol] 11 mmol/L 10 - 20 - [facility] Work Phone: AST With P-5'-P [Catalytic activity/Vol] 16 U/L 9 - 39 [facility] Work Phone: Bilirubin [Mass/Vol] 0.7 mg/dL 0.0 - 1.2 [facility] Work Phone: Calcium [Mass/Vol] 9.2 mg/dL 8.6 - 10.3 [facility] Work Phone: Chloride [Moles/Vol] 106 mmol/L 98 - 107 [facility] Work Phone: CO2 [Moles/Vol] 29 mmol/L 21 - 32 [facility] Work Phone: Creatinine (U) [Mass/Vol] 96.0 mg/dL See Below [facility] Work Phone: Comment on above: Reference Range: 20. 0 - 370.0 Creatinine [Mass/Vol] 0.85 mg/dL See Below [facility] Work Phone: Comment on above: Reference Range: 0.5 0 - 1.30 Glucose [Mass/Vol] 115 mg/dL above high threshold 74 - 99 [facility] Work Phone: Potassium [Moles/Vol] 4.1 mmol/L 3.5 - 5.3 - [facility] Work Phone: Protein [Mass/Vol] 7.0 g/dL 6.4 - 8.2 -[facility] Work Phone: Sodium [Moles/Vol] 142 mmol/L 136 - 145 [facility] Work Phone: Urea nitrogen [Mass/Vol] 14 mg/dL 6 - 23 [facility] Work Phone: Lipid Panelon 12-12-2021 Cholesterol [Mass/Vol] 107 mg/dL 0 - 199 [employer] [facility] Work Phone: Comment on above: . AGE DESIRABLE BORD SERGIO HIGH HIGH 0-19 Y 0 - 169 170 - 199 >/= 200 20-24 Y 0 - 189 190 - 224 >/= 225 >24 Y 0 - 199 200 - 239 >/= 240 All ranges are based on fasting samples. Specific therapeutic targets will vary based on patient-specific cardiac risk.. Pediatric guidelines reference:Pediatrics 2011, 128(S5). Adult guidelines reference: NCEP ATPIII Guidelines, ASHOK 2001, 258:2486-97. Venipuncture immediately after or during the administration of Metamizole may lead to falsely low results. Testing should be performed immediately prior to Metamizole dosing. Cholesterol in HDL [Mass/Vol] 40.0 mg/dL [employer] [facility] Work Phone: Comment on above: . AGE VERY LOW LOW N ORMAL HIGH 0-19 Y < 35 < 40 40-45 ---- 20-24 Y ---- < 40 >45 ---- >24 Y ---- < 40 40-60 >60. Cholesterol in LDL [Mass/Vol] 50 mg/dL 0 - 99 [employer] Work Phone: Comment on above: . NEAR BORD AGE [place]LOM[place] RABLE OPTIMAL HIGH HIGH VERY HIGH 0-19 Y 0 - 109 --- 110-129 >/= 130 ---- 20-24 Y 0 - 119 --- 120-159 >/= 160 ---- >24 Y 0 - 99 100-129 130-159 160-189 >/=190. Cholesterol.total/Chol esterol in HDL [Mass ratio] 2.7 {ratio} [employer] Work Phone: Comment on above: REF VALUESDESIRABLE < 3.4HIGH RISK > 5.0 Triglyceride [Mass/Vol] 87 mg/dL 0 - 149 [employer] [facility] Work Phone: Comment on above: . AGE DESIRABLE BORD SERGIO HIGH HIGH VERY HIGH 0 D-90 D 19 - 174 ---- ---- ----91 D- 9 Y 0 - 74 75 - 99 >/= 100 ---- 10-19 Y 0 - 89 90 - 129 >/= 130 ---- 20-24 Y 0 - 114 115 - 149 >/= 150 ---- >24 Y 0 - 149 150 - 199 200- 499 >/= 500. Venipuncture immediately after or during the administration of Metamizole may lead to falsely low results. Testing should be performed immediately prior to Metamizole dosing. Lipid Panel 17 mg/dL 0 - 40 [employer] [facility] Work Phone: No Panel Informationon 12-12 89 {mL/min/1.73m2} >90 [employer] [facility] Work Phone: Comment on above: CALCULATIONS OF SETH MATED GFR ARE PERFORMED USING THE 2020 CKD-EPI STUDY REFIT EQUATION WITHOUT THE RACE VARIABLE FOR THE IDMS-TRACEABLE CREATININE METHODS.https://jasn.asnjournals.org/content/early/A SN.3200595962 TSH - Thyroid Stimulating Ho Heriberto kellyon 12-12-2021 TSH Qn 1.37 m[IU]/L See Below [employer] [facility] Work Phone: Comment on above: Reference Range: 0.4 4 - 3.98 TSH testing is performed using different testing methodology at [facility] than at other [facility]. Direct result comparisons should only be made within the same method. [facility] Venous Duplex Ultra sound for DVTon 11-24-2021 VAS LAB Venous Duplex Ultrasound for DVT [employer] [facility] Work Phone: Laboratory - Chemistry and C hemistry - challengeon 10-06-2021 Anion gap [Moles/Vol] 12 mmol/L 10 - 20 [employer] [facility] Work Phone: Calcium [Mass/Vol] 9.0 mg/dL 8.6 - 10.3 [employer] [facility] Work Phone: Chloride [Moles/Vol] 104 mmol/L 98 - 107 [facility] Work Phone: CO2 [Moles/Vol] 25 mmol/L 21 - 32 [facility] Work Phone: Creatinine [Mass/Vol] 0.98 mg/dL See Below [facility] Work Phone: Comment on above: Reference Range: 0.5 0 - 1.30 Glucose [Mass/Vol] 193 mg/dL above high threshold 74 - 99 [facility] Work Phone: Potassium [Moles/Vol] 3.9 mmol/L 3.5 - 5.3 [facility] Work Phone: Sodium [Moles/Vol] 137 mmol/L 136 - 145 [facility] Work Phone: Urea nitrogen [Mass/Vol] 19 mg/dL 6 - 23 [facility] Work Phone: No Panel Informationon 10-06 [email or web address] 1: [email or web address]/[email or web address]/[email or web address]?RetrieveTestByD ateTime?WajwotrDT=[email or web address] [id number]&Date=01-02-2022& Time=08%3a52%3a31%3a00 &TestType=ECG&Site=14& OutputType=PDF&Ext=PDF [facility] Work Phone: Atrial fibrillation [facility] Work Phone: Abnormal [facility] Work Phone: [phone] [facility] Work Phone: [phone] [facility] Work Phone: [phone] [facility] Work Phone: [phone] 1 [facility] Work Phone: [phone] 1 [facility] Work Phone: -[phone] [facility] Work Phone: [phone] [facility] Work Phone: [phone] [facility] Work Phone: [phone] [facility] Work Phone: [phone] [facility] Work Phone: [phone] [facility] Work Phone: 79 {mL/min/1.73m2} >90 [facility] Work Phone: Comment on above: CALCULATIONS OF SETH MATED GFR ARE PERFORMED USING THE 2020 CKD-EPI STUDY REFIT EQUATION WITHOUT THE RACE VARIABLE FOR THE IDMS-TRACEABLE CREATININE METHODS.https://jasn.asnjournals.org/content/early/A .2019184087 No Panel Informationon 09-22 [email or web address] 1: [email or web address]/[email or web address] eb.[email or web address]?RetrieveTestByD ateTime?[email or web address] [id number]&Date=22-09-2021& Time=11%3a37%3a51%3a00 &TestType=ECG&Site=14& OutputType=PDF&Ext=PDF [facility] Work Phone: Atrial fibrillation [facility] Work Phone: Abnormal [facility] Work Phone: [phone] [facility] Work Phone: [phone] [facility] [facility] Work Phone: [phone] [facility] [place] [facility] Work Phone: 10 1 [facility] [place] [facility] Work Phone: [phone] 1 [facility] [place] [facility] Work Phone: -[phone] [facility] [place] [facility] Work Phone: [phone] [facility] [place] [facility] Work Phone: [phone] [facility] [place] [facility] Work Phone: [phone] [facility] [place] [facility] Work Phone: [phone] [facility] [place] [facility] Work Phone: [phone] [facility] [place] [facility] Work Phone: No Panel Informationon 09-06 http://[email or web address] 1: 8080/musescripts/musew eb.dll?RetrieveTestByD ateTime?IvrqjlmFE=[id number] 54124&Date=02-01-2022& Time=08%3a28%3a57%3a00 &TestType=ECG&Site=2&O utputType=PDF&Ext=PDF [facility] Work Phone: Sinus rhythm with 1s t degree AV block with premature atrial complexes [facility] Work Phone: Abnormal [facility] Work Phone: [phone] [facility] Work Phone: [phone] [facility] Work Phone: [phone] 1 [facility] Work Phone: [phone] [facility] Work Phone: [phone] [facility] Work Phone: 10 1 [facility] Work Phone: -[phone] 1 [facility] Work Phone: -[phone] [facility] Work Phone: 70 1 [facility] Work Phone: [phone] [facility] Work Phone: [phone] [facility] Work Phone: [phone] [facility] Work Phone: [phone] [facility] Work Phone: [phone] 1 [facility] Work Phone: [email or web address]://[email or web address] 1: 8080/musescripts/musew eb.dll?RetrieveTestByD ateTime?KmzojgxCO=[email or web address] [id number]&Date=02-01-2022& Time=07%3a22%3a10%3a00 &TestType=ECG&Site=2&O utputType=PDF&Ext=PDF [facility] Work Phone: Atrial fibrillation with premature ventricular or aberrantly conducted complexes [facility] Work Phone: Abnormal [facility] Work Phone: [phone] [facility] Work Phone: [phone] [facility] Work Phone: [phone] [facility] Work Phone: [phone] [facility] Work Phone: [phone] [facility] Work Phone: [phone] [facility] Work Phone: [phone] [facility] Work Phone: [phone] [facility] Work Phone: [phone] [facility] Work Phone: [phone] [facility] Work Phone: [phone] -[facility] [employer] [facility] Work Phone: PHQ-9on 09-01-2021 PHQ-9 2-More than half the days [facility] Work Phone: PHQ-9 0-Not at all [facility] Work Phone: PHQ-9 1-Several days -[facility] Work Phone: PHQ-9 Not difficult at all [facility] Work Phone: Tobacco Screening.on 022 Adult depression screening assessment Yes -[facility] [employer] [facility] Work Phone: Adult depression screening assessment No [facility] Work Phone: Fall risk assessment b) One or more fall s in the last year -[facility] [employer] [facility] Work Phone: Tobacco use status CPHS b) No [facility] Work Phone: Complete Blood Count + Diffe rentialon 08-25-2021 Erythrocyte distribution width (RBC) [Ratio] 14.3 % See Below [facility] Work Phone: Comment on above: Reference Range: 11. 5 - 14.5 Hematocrit (Bld) [Volume fraction] 36.8 % below low threshold See Below [facility] Work Phone: Comment on above: Reference Range: 41. 0 - 52.0 Hemoglobin (Bld) [Mass/Vol] 12.1 g/dL below low threshold See Below [facility] Work Phone: Comment on above: Reference Range: 13. 5 - 17.5 MCHC (RBC) [Mass/Vol] 32.8 g/dL See Below [facility] Path[facility] Work Phone: Comment on above: Reference Range: 32. 0 - 36.0 MCV (RBC) [Entitic vol] 91 fL 80 - 100 [facility] Work Phone: Platelets (Bld) [#/Vol] 291 10*3/uL 150 - 450 [facility] [employer] [facility] Work Phone: RBC (Bld) [#/Vol] 4.05 {x10E12/L} below low threshold See Below [facility] Work Phone: Comment on above: Reference Range: 4.5 0 - 5.90 WBC (Bld) [#/Vol] 5.8 10*3/uL 4.4 - 11.3 -[facility] ica [employer] [facility] Work Phone: Complete Blood Count + Differential SEE MANUAL DIFF [facility] Work Phone: Complete Blood Count + Differential 0.1 {/100_WBC} [facility] Work Phone: Cult, Bloodon 08-25-2021 Bacteria identified Cx Nom (Bld) [facility] Work Phone: INFLUENZA A/B, COVID 2019 PC R,SYMPTOMATICon 08-25-2021 Date and time of symptom onset [id number] [facility] Work Phone: INFLUENZA A/B, COVID 2019 PCR,SYMPTOMATIC Not detected See Below [facility] Work Phone: Comment on above: Reference Range: Not Detected.This test has received FDA Emergency Use Authorization (EUA) and has been verified by [facility]. This test is only authorized for the duration of time that circumstances exist to justify the authorization of the emergency use of in vitro diagnostic tests for the detection of SARS-CoV-2 virus and/or diagnosis of COVID-19 infection under section 564(b)(1) of the Act, 21 U.S.C. 360bbb-3(b)(1), unless the authorization is terminated or revoked sooner. [facility] is certified under CLIA-88 as qualified to perform high complexity testing. Testing is performed in the [facility] laboratory located at [address] [address].SARS-CoV-2/Flu/RSV Multiplex Test: Fact sheet for providers: https://www.fda.gov/media/271906/downloadFact sheet for patients: https://www.fda.gov/media/921651/download Reference Range: Not Detected Respiratory virus testing is performed routinely by PCR for Influenza A/B and RSV. Not Detected results do not preclude Influenza A/B or RSV infections since the adequacy of sample collection or low viral burden may impact the clinical sensitivity of this test method. INFLUENZA A/B, COVID 2019 PCR,SYMPTOMATIC Detected Abnormal See Below [employer] [facility] Work Phone: Comment on above: SOURCE: Nasal, Nasop haryngealReference Range: Not Detected Respiratory virus testing is performed routinely by PCR for Influenza A/B and RSV. Not Detected results do not preclude Influenza A/B or RSV infections since the adequacy of sample collection or low viral burden may impact the clinical sensitivity of this test method. Laboratory - Chemistry and C hemistry - challengeon 08-25-2021 Anion gap [Moles/Vol] 13 mmol/L 10 - 20 [employer] Work Phone: Calcium [Mass/Vol] 8.6 mg/dL 8.6 - 10.3 [employer] [facility] Work Phone: Chloride [Moles/Vol] 106 mmol/L 98 - 107 -M ed[facility] [employer] [facility] Work Phone: CO2 [Moles/Vol] 23 mmol/L 21 - 32 -Medica l [employer] [facility] Work Phone: Creatinine [Mass/Vol] 0.97 mg/dL See Below [employer] [facility] Work Phone: Comment on above: Reference Range: 0.5 0 - 1.30 Glucose [Mass/Vol] 164 mg/dL above high threshold 74 - 99 [employer] Work Phone: Potassium [Moles/Vol] 3.7 mmol/L 3.5 - 5.3 [facility] Work Phone: Sodium [Moles/Vol] 138 mmol/L 136 - 145 [facility] Work Phone: Urea nitrogen [Mass/Vol] 12 mg/dL 6 - 23 [facility] Work Phone: Laboratory - Hematology and Cell countson 08-25-2021 Basophils/100 WBC (Bld) 0.0 % 0.0 - 2.0 [facility] Work Phone: Lymphocytes/100 WBC (Bld) 10.0 % See Below [facility] Work Phone: Comment on above: Reference Range: 13. 0 - 44.0 Monocytes/100 WBC (Bld) 4.0 % 2.0 - 10.0 [facility] Work Phone: Lactate, Levelon 08-25-2021 Lactate [Moles/Vol] 0.9 mmol/L 0.4 - 2.0 [facility] dicut [facility] Work Phone: Comment on above: Venipuncture immedia tely after or during the administration of Metamizole may lead to falsely low results. Testing should be performed immediately prior to Metamizole dosing. No Panel Informationon 08-25 NORMAL [facility] Work Phone: 0.00 {x10E9/L} See Below [facility] Work Phone: Comment on above: Reference Range: 0.0 0 - 0.10 Reference Range: 0.0 0 - 0.40 0.23 {x10E9/L} See Below [facility] Work Phone: Comment on above: Reference Range: 0.0 5 - 0.80 0.58 {x10E9/L} below low threshold See Below [facility] Work Phone: Comment on above: Reference Range: 0.8 0 - 3.00 4.99 {x10E9/L} See Below [employer]media[employer] [facility] Work Phone: Comment on above: Reference Range: 1.6 0 - 5.00 Reference Range: 1.6 0 - 5.50 0.0 % 0.0 - 6.0 [facility] Work Phone: 86.0 % See Below [employer] TransmediaMedical [employer] [facility] Work Phone: Comment on above: Reference Range: 40. 0 - 80.0 Percent differential counts (%) should be interpreted in the context of the absolute cell counts (cells/L). 80 {mL/min/1.73m2} >90 [facility] Work Phone: Comment on above: CALCULATIONS OF SETH MATED GFR ARE PERFORMED USING THE 2020 CKD-EPI STUDY REFIT EQUATION WITHOUT THE RACE VARIABLE FOR THE IDMS-TRACEABLE CREATININE METHODS.https://jasn.asnjournals.org/content//A SN.5075322959 http://[email or web address] 1: 8080/musescripts/musew eb.dll?RetrieveTestByD ateTime?AisymdwNC=8079 16771&Date=25-08-2021& Time=10%3a41%3a35%3a00 &TestType=ECG&Site=14& OutputType=PDF&Ext=PDF [facility] Work Phone: Please see physicia n note for formal interpretation confirmed by Scribe [facility] Work Phone: Normal [employer]media[employer] [facility] Work Phone: [phone] MPDeehubs [facility] Work Phone: [phone] MPDeehubs [facility] Work Phone: [phone] [employer]mediaMedical [employer] [facility] Work Phone: [phone] 1 [facility] Work Phone: [phone] 1 [facility] Work Phone: -[phone] [facility] Work Phone: [phone] -[facility] Work Phone: [phone] -[facility] Work Phone: [phone] -[facility] Work Phone: [phone] -[facility] Work Phone: [phone] -[facility] Work Phone: Radiologyon 08-25-2021 XR Chest Single view Normal - [facility] Work Phone: Troponin I, Serumon 08-25-19 22 Troponin I.cardiac [Mass/Vol] 0.02 ng/mL See Below [facility] Work Phone: Comment on above: Reference Range: 0.0 0 - 0.03LESS THAN 0.04 NG/ML: NEGATIVEREPEAT TESTING IN THREE TO SIX HOURSIF CLINICALLY INDICATED.0.04 - 0.5 NG/ML: CONSISTENT WITH POSSIBLECARDIAC DAMAGE AND POSSIBLE INCREASEDCLINICAL RISK.SERIAL MEASUREMENTS MAY HELP ASSESS EXTENT OFMYOCARDIAL DAMAGE.>0.5 NG/ML: CONSISTENT WITH CARDIAC DAMAGE,INCREASED CLINICAL RISK AND MYOCARDIALINFARCTION. SERIAL MEASUREMENTS MAY HELPASSESS EXTENT OF MYOCARDIAL DAMAGE..Note: Troponin I testing is performed using different testing methodology at [facility] than at other [facility]. Direct result comparisons should only be made within the same method. Laboratory - Chemistry and C hemistry - challengeon 08-10-2021 Anion gap [Moles/Vol] 11 mmol/L 10 - 20 MP- Cardiology- [place] [address] tic Work Phone: Calcium [Mass/Vol] 9.2 mg/dL 8.6 - 10.3 MP-Car diology- [place] [address] tic Work Phone: Chloride [Moles/Vol] 106 mmol/L 98 - 107 -C ardiology- [place] [address] tic Work Phone: CO2 [Moles/Vol] 26 mmol/L 21 - 32 -[place] [address] [place] Work Phone: Creatinine [Mass/Vol] 0.96 mg/dL See Below - [address] Work Phone: Comment on above: Reference Range: 0.5 0 - 1.30 Glucose [Mass/Vol] 115 mg/dL above high threshold 74 - 99 -[address] Work Phone: Potassium [Moles/Vol] 4.3 mmol/L 3.5 - 5.3 - [address] Work Phone: Sodium [Moles/Vol] 139 mmol/L 136 - 145 -Car diol[address] Work Phone: Urea nitrogen [Mass/Vol] 19 mg/dL 6 - [address] Work Phone: No Panel Informationon 08-10 81 {mL/min/1.73m2} >90 -Car [address] Work Phone: Comment on above: CALCULATIONS OF SETH MATED GFR ARE PERFORMED USING THE 2020 CKD-EPI STUDY REFIT EQUATION WITHOUT THE RACE VARIABLE FOR THE IDMS-TRACEABLE CREATININE METHODS.https://jasn.asnjournals.org/content//A SN.8779569947 Tobacco Screening.on 022 Tobacco use status [facility] b) No [employer]-[address] Work Phone: Laboratory - Chemistry and C hemistry - challengeon 07-13-2021 Anion gap [Moles/Vol] 13 mmol/L 10 - 20 - [facility] Work Phone: Calcium [Mass/Vol] 8.9 mg/dL 8.6 - 10.3 -Med ical [employer] [facility] Work Phone: Chloride [Moles/Vol] 105 mmol/L 98 - 107 -M edical [employer] [facility] Work Phone: CO2 [Moles/Vol] 25 mmol/L 21 - 32 [place] [employer] [facility] Work Phone: Creatinine [Mass/Vol] 0.94 mg/dL See Below [employer] Work Phone: Comment on above: Reference Range: 0.5 0 - 1.30 Glucose [Mass/Vol] 140 mg/dL above high threshold 74 - 99 [employer] Work Phone: Potassium [Moles/Vol] 4.3 mmol/L 3.5 - 5.3 [employer] [facility] Work Phone: Sodium [Moles/Vol] 139 mmol/L 136 - 145 [employer] [facility] Work Phone: Urea nitrogen [Mass/Vol] 22 mg/dL 6 - 23 [employer] [facility] Work Phone: No Panel Informationon 07-13 83 {mL/min/1.73m2} Abnormal >90 [employer] [facility] Work Phone: Comment on above: CALCULATIONS OF SETH MATED GFR ARE PERFORMED USING THE 2020 CKD-EPI STUDY REFIT EQUATION WITHOUT THE RACE VARIABLE FOR THE IDMS-TRACEABLE CREATININE METHODS.https://jasn.asnjournals.org/content//A .4033466537 91 pg/mL 0 - 99 [employer] [facility] Work Phone: Comment on above: . <100 pg/mL - Heart failure [id number] pg/mL - Intermediate probability of acute heart. failure exacerbation. Correlate with clinical. context and patient history. >=300 pg/mL - Heart Failure likely. Correlate with clinical. context and patient history.BNP testing is performed using different testing methodology at [facility] than at other [facility]. Direct result comparisons should only be made within the same method. Radiologyon 07-08-2021 XR Chest 2 Views Normal -[employer] al [employer] [facility] Work Phone: XR Chest 2 Views Please click on the link to view the study images Normal [employer] [facility] Work Phone: Tobacco Screening.on 022 Fall risk assessment b) One or more fall s in the last year [employer] [facility] Work Phone: Tobacco use status CPHS b) No [employer] [facility] Work Phone: Hemoglobin A1Con Glucose [Mass/Vol] 169 mg/dL [employer] [facility] [employer] [facility] Work Phone: HbA1c (Bld) [Mass fraction] 7.5 % Abnormal [employer] [facility] Work Phone: Comment on above: Diagnosis of Diabete s-Adults Non-Diabetic: < or = 5.6% Increased risk for developing diabetes: 5.7-6.4% Diagnostic of diabetes: > or = 6.5%. Monitoring of Diabetes Age (y) Therapeutic Goal (%) Adults: >18 <7.0 Pediatrics: 13-18 <7.5 7-12 <8.0 0- 6 7.5-8.5 [employer]. Diabetes Care 33(S1), Jul 2009. LDL, Direct, Serumon 021 Cholesterol in LDL [Mass/Vol] 64 mg/dL 0 - 129 [employer] [facility] Work Phone: Comment on above: Elevated levels of L DL cholesterol are recognized as a chapin factor in the development of atherosclerosis and CHD. The direct LDL cholesterol test can be used to assess cardiovascular risk and monitor therapy as a follow up to a lipid profile when triglycerides are significantly elevated. Laboratory - Chemistry and C hemistry - challengeon 06-30-2021 Albumin BCP dye [Mass/Vol] 3.8 g/dL 3.4 - 5.0 [employer] [facility] Work Phone: ALP [Catalytic activity/Vol] 65 U/L 33 - 136 [employer] [facility] Work Phone: ALT With P-5'-P [Catalytic activity/Vol] 18 U/L 10 - 52 [employer] [facility] Work Phone: Comment on above: Patients treated wit h Sulfasalazine may generate falsely decreased results for ALT. Anion gap [Moles/Vol] 11 mmol/L 10 - 20 [facility] Work Phone: AST With P-5'-P [Catalytic activity/Vol] 19 U/L 9 - 39 [facility] Work Phone: Bilirubin [Mass/Vol] 0.5 mg/dL 0.0 - 1.2 [facility] Work Phone: Calcium [Mass/Vol] 9.1 mg/dL 8.6 - 10.3 [facility] ical [facility] Work Phone: Chloride [Moles/Vol] 105 mmol/L 98 - 107 [facility] Work Phone: CO2 [Moles/Vol] 30 mmol/L 21 - 32 [facility] Work Phone: Creatinine [Mass/Vol] 0.93 mg/dL See Below [facility] Medical [facility] Work Phone: Comment on above: Reference Range: 0.5 0 - 1.30 Glucose [Mass/Vol] 126 mg/dL above high threshold 74 - 99 [facility] Work Phone: Potassium [Moles/Vol] 4.5 mmol/L 3.5 - 5.3 [facility] Work Phone: Protein [Mass/Vol] 6.4 g/dL 6.4 - 8.2 -[facility] Work Phone: Sodium [Moles/Vol] 141 mmol/L 136 - 145 -[facility] Work Phone: Urea nitrogen [Mass/Vol] 16 mg/dL 6 - 23 -[facility] Work Phone: No Panel Informationon 06-30 >60 >60 [facility] Work Phone: Comment on above: CALCULATIONS OF SETH MATED GFR ARE PERFORMED USING THE MDRD STUDY EQUATION FOR THE IDMS-TRACEABLE CREATININE METHODS. CLIN CHEM 2007;53:766-72 Tobacco Screening.on 021 Fall risk assessment b) One or more fall s in the last year [employer] [facility] Work Phone: Tobacco use status CPHS b) No [employer] [facility] Work Phone: Laboratory - Molecular patho logyon 06-17-2021 Noninvasive colorectal cancer DNA and occult blood screening Robert (Stl) [Interp] Negative Negative [employer] [facility] Work Phone: Comment on above: [employer] (CLIA #:[id number])145 [address] OCAMPO . [facility] [id number] [place] , Clinical Laboratory Medical DirectorNEGATIVE TEST RESULT. A negative Cologuard result indicates a low likelihood that a colorectal cancer (CRC) or advanced adenoma (adenomatous polyps with more advanced pre-malignant features) is present. The chance that a person with a negative Cologuard test has a colorectal cancer is less than 1 in 1500 (negative predictive value >99.9%) or has an advanced adenoma is less than 5.3% (negative predictive value 94.7%). These data are based on a prospective cross-sectional study of 10,000 individuals at average risk for colorectal cancer who were screened with both Cologuard and colonoscopy. (Danica Waldron al, N Engl J Med 2014;370(14):3099-5676) The normal value (reference range) for this assay is negative.COLOGUARD RE-SCREENING RECOMMENDATION: Periodic colorectal cancer screening is an important part of preventive healthcare for asymptomatic individuals at average risk for colorectal cancer. Following a negative Cologuard result, the [employer] Cancer Society and U.S. Multi-Society Task Force screening guidelines recommend a Cologuard re-screening interval of 3 years. References: [employer] Cancer Society Guideline for Colorectal Cancer Screening: https://www.cancer.org/cancer/ldqry-puhllk-ypyskm/detection-miguel gnosis-staging/acs-recommendations.html.; Gonzalez DK, Makenzie CR, Arabella KateK, Colorectal Cancer Screening: Recommendations for Physicians and Patients from the U.S. Multi-Society Task Force on Colorectal Cancer Screening , Am J Gastroenterology 2017; 112:1721-2501.TEST DESCRIPTION: Composite algorithmic analysis of stool DNA-biomarkers with hemoglobin immunoassay. Quantitative values of individual biomarkers are not reportable and are not associated with individual biomarker result reference ranges. Cologuard is intended for colorectal cancer screening of adults of either sex, 45 years or older, who are at average-risk for colorectal cancer (CRC). Cologuard has been approved for use by the U.S. FDA. The performance of Cologuard was established in a cross sectional study of average-risk adults aged 50-84. Cologuard performance in patients ages 45 to 49 years was estimated by sub-group analysis of near-age groups. Colonoscopies performed for a positive result may find as the most clinically significant lesion: colorectal cancer [4.0%], advanced adenoma (including sessile serrated polyps greater than or equal to 1cm diameter) [20%] or non- advanced adenoma [31%]; or no colorectal neoplasia [45%]. These estimates are derived from a prospective cross-sectional screening study of 10,000 individuals at average risk for colorectal cancer who were screened with both Cologuard and colonoscopy. (Danica Tate et al, N Engl J Med 2014;370(14):8688-3414.) Cologuard may produce a false negative or false positive result (no colorectal cancer or precancerous polyp present at colonoscopy follow up). A negative Cologuard test result does not guarantee the absence of CRC or advanced adenoma (pre-cancer). The current Cologuard screening interval is every 3 years. ([employer] Cancer Society and U.S. Multi-Society Task Force). Cologuard performance data in a 10,000 patient pivotal study using colonoscopy as the reference method can be accessed at the following location: [email or web address]. Additional description of the Cologuard test process, warnings and precautions can be found at www.[employer] Technology[employer].com. No Panel Informationon 06-16 [email or web address] 1: [email or web address] eb.dll?RetrieveTestByD ateTime?CgiokrePD=[id number]&Date=16-06-2021& Time=11%3a12%3a34%3a00 &TestType=ECG&Site=4&O utputType=PDF&Ext=PDF [facility] Work Phone: Atrial fibrillation [facility] Work Phone: Abnormal [facility] Work Phone: [phone] [facility] Work Phone: [phone] [facility] Work Phone: [phone] [facility] Work Phone: [phone] [facility] Work Phone: [phone] [facility] Work Phone: [phone] [facility] Work Phone: [phone] [facility] Work Phone: [phone] [facility] Work Phone: [phone] [facility] Work Phone: [phone] [facility] Work Phone: [phone] [facility] Work Phone: Tobacco Screening.on 021 Fall risk assessment b) One or more fall s in the last year [facility] Work Phone: Tobacco use status CPHS b) No [facility] Work Phone: Activated Partial Thrombopla stin Timeon 06-03-2021 aPTT Coag (PPP) [Time] 30 s 26 - 39 Un [facility] Work Phone: Comment on above: Note new reference ankit mcgrath as of 05/31/2021 at 10:00am. Complete Blood Count + Diffe rentialon 06-03-2021 Basophils/100 WBC (Bld) 0.2 % 0.0 - 2.0 [facility] Work Phone: Erythrocyte distribution width (RBC) [Ratio] 13.5 % See Below [facility] Work Phone: Comment on above: Reference Range: 11. 5 - 14.5 Hematocrit (Bld) [Volume fraction] 36.3 % below low threshold See Below [facility] Work Phone: Comment on above: Reference Range: 41. 0 - 52.0 Hemoglobin (Bld) [Mass/Vol] 11.8 g/dL below low threshold See Below [facility] Work Phone: Comment on above: Reference Range: 13. 5 - 17.5 Lymphocytes/100 WBC (Bld) 15.3 % See Below [facility] Work Phone: Comment on above: Reference Range: 13. 0 - 44.0 MCHC (RBC) [Mass/Vol] 32.4 g/dL See Below [facility] Work Phone: Comment on above: Reference Range: 32. 0 - 36.0 MCV (RBC) [Entitic vol] 94 fL 80 - 100 [facility] Work Phone: Monocytes/100 WBC (Bld) 6.9 % 2.0 - 10.0 [facility] Work Phone: Neutrophils/100 WBC (Bld) 76.4 % See Below [facility] Work Phone: Comment on above: Reference Range: 40. 0 - 80.0 Platelets (Bld) [#/Vol] 333 10*3/uL 150 - 450 [facility] Work Phone: RBC (Bld) [#/Vol] 3.85 {x10E12/L} below low threshold See Below [facility] Work Phone: Comment on above: Reference Range: 4.5 0 - 5.90 WBC (Bld) [#/Vol] 8.8 10*3/uL 4.4 - 11.3 [facility] Work Phone: Complete Blood Count + Differential 0.00 {x10E9/L} See Below [facility] Work Phone: Comment on above: Reference Range: 0.0 0 - 0.10 Complete Blood Count + Differential 0.10 {x10E9/L} See Below [facility] Work Phone: Comment on above: Reference Range: 0.0 0 - 0.40 Complete Blood Count + Differential 0.60 {x10E9/L} See Below [facility] Work Phone: Comment on above: Reference Range: 0.0 5 - 0.80 Complete Blood Count + Differential 1.30 {x10E9/L} See Below [facility] Work Phone: Comment on above: Reference Range: 0.8 0 - 3.00 Complete Blood Count + Differential 6.70 {x10E9/L} above high threshold See Below [facility] Work Phone: Comment on above: Reference Range: 1.6 0 - 5.50 Percent differential counts (%) should be interpreted in the context of the absolute cell counts (cells/L). Complete Blood Count + Differential 1.2 % 0.0 - 6.0 [facility] Work Phone: Hepatic Function Panelon Albumin BCP dye [Mass/Vol] 3.8 g/dL 3.4 - 5.0 [facility] Work Phone: ALP [Catalytic activity/Vol] 72 U/L 33 - 136 [facility] Work Phone: ALT With P-5'-P [Catalytic activity/Vol] 16 U/L 10 - 52 [facility] Work Phone: Comment on above: Patients treated wit h Sulfasalazine may generate falsely decreased results for ALT. AST With P-5'-P [Catalytic activity/Vol] 13 U/L 9 - 39 [facility] Work Phone: Bilirubin [Mass/Vol] 0.6 mg/dL 0.0 - 1.2 [facility] Work Phone: Bilirubin.direct [Mass/Vol] 0.1 mg/dL 0.0 - 0.3 [facility] Work Phone: Protein [Mass/Vol] 6.6 g/dL 6.4 - 8.2 [facility] Work Phone: INFLUENZA A/B, COVID 2019 PC R,SYMPTOMATICon 06-03-2021 Date and time of symptom onset [id number] [facility] Work Phone: INFLUENZA A/B, COVID 2019 PCR,SYMPTOMATIC Not detected See Below [facility] Work Phone: Comment on above: Reference Range: Not Detected.This test has received FDA Emergency Use Authorization (EUA) and has been verified by [facility]. This test is only authorized for the duration of time that circumstances exist to justify the authorization of the emergency use of in vitro diagnostic tests for the detection of SARS-CoV-2 virus and/or diagnosis of COVID-19 infection under section 564(b)(1) of the Act, 21 U.S.C. 360bbb-3(b)(1), unless the authorization is terminated or revoked sooner. [facility] is certified under CLIA-88 as qualified to perform high complexity testing. Testing is performed in the [facility] laboratory located at [address] [place] [address].SARS-CoV-2/Flu/RSV Multiplex Test: Fact sheet for providers: https://www.fda.gov/media/545164/downloadFact sheet for patients: https://www.fda.gov/media/408592/download Reference Range: Not Detected Respiratory virus testing is performed routinely by PCR for Influenza A/B and RSV. Not Detected results do not preclude Influenza A/B or RSV infections since the adequacy of sample collection or low viral burden may impact the clinical sensitivity of this test method. SOURCE: Nasal, Nasop haryngealReference Range: Not Detected Respiratory virus testing is performed routinely by PCR for Influenza A/B and RSV. Not Detected results do not preclude Influenza A/B or RSV infections since the adequacy of sample collection or low viral burden may impact the clinical sensitivity of this test method. Laboratory - Chemistry and C hemistry - challengeon 06-03-2021 Anion gap [Moles/Vol] 11 mmol/L 10 - 20 [facility] Work Phone: Calcium [Mass/Vol] 9.2 mg/dL 8.6 - 10.3 [facility] Work Phone: Chloride [Moles/Vol] 106 mmol/L 98 - 107 [facility] Work Phone: CO2 [Moles/Vol] 28 mmol/L 21 - 32 [facility] Work Phone: Creatinine [Mass/Vol] 0.72 mg/dL See Below [facility] Work Phone: Comment on above: Reference Range: 0.5 0 - 1.30 Glucose [Mass/Vol] 121 mg/dL above high threshold 74 - 99 [facility] Work Phone: Potassium [Moles/Vol] 4.1 mmol/L 3.5 - 5.3 [facility] Work Phone: Sodium [Moles/Vol] 141 mmol/L 136 - 145 [facility] Work Phone: Urea nitrogen [Mass/Vol] 18 mg/dL 6 - 23 [facility] Work Phone: Laboratory - Coagulationon 1 08-04-2020 INR Coag (PPP) [Relative time] 1.2 {INR} above high threshold 0.9 - 1.1 [facility] Work Phone: PT Coag (PPP) [Time] 14.0 s above high threshold 9.8 - 13.4 [facility] Work Phone: Comment on above: Note new reference ankit mcgrath as of 05/31/2021 at 10:00am. Laboratory - Microbiology an d Antimicrobial susceptibilityon 06-03-2021 RSV RNA TATI+probe Ql (Unsp spec) Detected Abnormal See Below [facility] Work Phone: Comment on above: SOURCE: Nasal, Nasop haryngealReference Range: Not Detected Respiratory virus testing is performed routinely by PCR for Influenza A/B and RSV. Not Detected results do not preclude Influenza A/B or RSV infections since the adequacy of sample collection or low viral burden may impact the clinical sensitivity of this test method. SOURCE: Nasal, Nasop haryngealReference Range: Not Detected Respiratory virus testing is performed routinely by PCR for Influenza A/B and RSV. Not Detected results do not preclude Influenza A/B or RSV infections since the adequacy of sample collection or low viral burden may impact the clinical sensitivity of this test method.Call not required per Clinician. , 06/04/2021 18:41 Lipase, Serumon 06-03-2021 Lipase [Catalytic activity/Vol] 24 U/L 9 - 82 [facility] Work Phone: Comment on above: Venipuncture immedia tely after or during the administration of Metamizole may lead to falsely low results. Testing should be performed immediately prior to Metamizole dosing. C-jqdvar-w-benzoquinone imine (metabolite of Acetaminophen) will generate erroneously low results in samples for patients that have taken toxic doses of acetaminophen. Magnesium, Serumon Magnesium [Mass/Vol] 1.98 mg/dL See Below [facility] Work Phone: Comment on above: Reference Range: 1.6 0 - 2.40 No Panel Informationon 06-03 >60 >60 [facility] Work Phone: Comment on above: CALCULATIONS OF SETH MATED GFR ARE PERFORMED USING THE MDRD STUDY EQUATION FOR THE IDMS-TRACEABLE CREATININE METHODS. CLIN CHEM 2007;53:766-72 [email or web address] 1: [email or web address]/[email or web address] eb.[email or web address]?RetrieveTestByD ateTime?[email or web address]=[id number]&Date=09-10-2020& Time=10%3a29%3a43%3a00 &TestType=ECG&Site=14& OutputType=PDF&Ext=PDF [facility] Work Phone: Please see physicia n note for formal interpretation confirmed by Scribe [facility] Work Phone: Normal [facility] Work Phone: [phone] [facility] Work Phone: [phone] [facility] Work Phone: [phone] [facility] Work Phone: [phone] [facility] Work Phone: [phone] [facility] Work Phone: [phone] [facility] Work Phone: [phone] [facility] Work Phone: [phone] [facility] Work Phone: [phone] [facility] Work Phone: [phone] [facility] Work Phone: [phone] [facility] Work Phone: Radiologyon 06-03-2021 XR Chest Single view Normal [facility] Work Phone: Troponin I, Serumon 06-03-20 21 Troponin I.cardiac [Mass/Vol] 0.02 ng/mL See Below [facility] Work Phone: Comment on above: Reference Range: 0.0 0 - 0.03LESS THAN 0.04 NG/ML: NEGATIVEREPEAT TESTING IN THREE TO SIX HOURSIF CLINICALLY INDICATED.0.04 - 0.5 NG/ML: CONSISTENT WITH POSSIBLECARDIAC DAMAGE AND POSSIBLE INCREASEDCLINICAL RISK.SERIAL MEASUREMENTS MAY HELP ASSESS EXTENT OFMYOCARDIAL DAMAGE.>0.5 NG/ML: CONSISTENT WITH CARDIAC DAMAGE,INCREASED CLINICAL RISK AND MYOCARDIALINFARCTION. SERIAL MEASUREMENTS MAY HELPASSESS EXTENT OF MYOCARDIAL DAMAGE..Note: Troponin I testing is performed using different testing methodology at [facility] than at other [facility]. Direct result comparisons should only be made within the same method. URINALYSIS WITH CULTURE IF I NDICATEDon 06-03-2021 Color (U) Yellow See Below [facility] Work Phone: Comment on above: Reference Range: STR AW,YELLOW Glucose Ql (U) Negative NEGATIVE [facility] Work Phone: Ketones Ql (U) Negative NEGATIVE [facility] Work Phone: Leukocyte esterase Test strip Ql (U) Negative NEGATIVE [facility] Work Phone: pH (U) 5.0 [pH] 5.0 - 8.0 [facility] Work Phone: Protein (U) [Mass/Vol] 100(2+) Abnormal NEGATIVE [facility] Work Phone: RBC (U) [#/Vol] Negative NEGATIVE [facility] Work Phone: Specific gravity (U) [Rel density] 1.023 1 See Below [facility] Work Phone: Comment on above: Reference Range: 1.0 05 - 1.035 URINALYSIS WITH CULTURE IF INDICATED Negative NEGATIVE [facility] Work Phone: URINALYSIS WITH CULTURE IF INDICATED 4.0 mg/dL above high threshold 0.0 - 1.9 [facility] Work Phone: Comment on above: SOME PIGMENTS AND ME DICATIONS MAY CAUSE AFALSE POSITIVE UROBILINOGEN URINALYSIS WITH CULTURE IF INDICATED CLEAR CLEAR [facility] Work Phone: Urinalysis, Microscopicon Urinalysis, Microscopic 1+ [facility] Work Phone: Urinalysis, Microscopic <1 [facility] Work Phone: Urinalysis, Microscopic 4 {/HPF} 0-5 [facility] Work Phone: Urinalysis, Microscopic 1 {/HPF} 0-5 [facility] Work Phone: Cardiac Stress Teston 2020 Cardiac Stress Test [facility] [place] [address] [facility] Work Phone: Radiologyon 06-01-2021 XR Chest 2 Views Normal [facility] Work Phone: Tobacco Screening.on 021 Fall risk assessment b) One or more fall s in the last year [facility] [address] [place] Work Phone: Tobacco use status CPHS b) No [facility] Work Phone: Coronavirus 2019 RNA by PCR, Symptomaticon 05-24-2021 Date and time of symptom onset [id number] 1 [facility] Work Phone: Coronavirus 2019 RNA by PCR, Symptomatic Not detected Normal See Below [facility] Work Phone: Comment on above: SOURCE: Nasal, Nasop haryngealReference Range: Not Detected.This assay is designed to detect the N, ORF1ab and/or S genes of SARS-CoV-2 via nucleic acid amplification. A Negative (NOT DETECTED) result does not preclude 2019-nCoV infection since the adequacy of sample collection and/or low viral burden may result in presence of viral nucleic acids below the clinical sensitivity of this test method. Negative (NOT DETECTED) result should not be used as the sole basis for treatment or other patient management decisions. Rather negative results should be combined with clinical observations, patient history, and epidemiological information to make patient management decisions.Fact sheet for providers: https://www.fda.gov/media/386542/downloadFact sheet for patients: https://www.fda.gov/media/237731/downloadThis test has received FDA Emergency Use Authorization (EUA) and has been verified by [facility] ([facility]). This test is only authorized for the duration of time that circumstances exist to justify the authorization of the emergency use of in vitro diagnostic tests for the detection of SARS-CoV-2 virus and/or diagnosis of COVID-19 infection under section 564(b)(1) of the Act, 21 U.S.C. 360bbb-3(b)(1), unless the authorization is terminated or revoked sooner. [facility] is certified under CLIA-88 as qualified to perform high complexity testing. Testing is performed in the [facility] laboratories located at [address] [place] [address]. Complete Blood Count + Diffe rentialon 05-13-2021 Basophils/100 WBC (Bld) 0.5 % 0.0 - 2.0 [facility] Work Phone: Erythrocyte distribution width (RBC) [Ratio] 13.8 % See Below [facility] Work Phone: Comment on above: Reference Range: 11. 5 - 14.5 Hematocrit (Bld) [Volume fraction] 35.5 % below low threshold See Below [facility] Work Phone: Comment on above: Reference Range: 41. 0 - 52.0 Hemoglobin (Bld) [Mass/Vol] 11.3 g/dL below low threshold See Below [facility] Work Phone: Comment on above: Reference Range: 13. 5 - 17.5 Lymphocytes/100 WBC (Bld) 22.1 % See Below [facility] Work Phone: Comment on above: Reference Range: 13. 0 - 44.0 MCHC (RBC) [Mass/Vol] 31.9 g/dL below low threshold See Below [facility] Work Phone: Comment on above: Reference Range: 32. 0 - 36.0 MCV (RBC) [Entitic vol] 96 fL 80 - 100 [facility] Work Phone: Monocytes/100 WBC (Bld) 6.6 % 2.0 - 10.0 [facility] Work Phone: Neutrophils/100 WBC (Bld) 68.0 % See Below [facility] Work Phone: Comment on above: Reference Range: 40. 0 - 80.0 Platelets (Bld) [#/Vol] 287 10*3/uL 150 - 450 [facility] Work Phone: RBC (Bld) [#/Vol] 3.70 {x10E12/L} below low threshold See Below [facility] Work Phone: Comment on above: Reference Range: 4.5 0 - 5.90 WBC (Bld) [#/Vol] 8.5 10*3/uL 4.4 - 11.3 [facility] Work Phone: Complete Blood Count + Differential 0.00 {x10E9/L} See Below [facility] [employer] [facility] Work Phone: Comment on above: Reference Range: 0.0 0 - 0.10 Complete Blood Count + Differential 0.20 {x10E9/L} See Below [facility] Work Phone: Comment on above: Reference Range: 0.0 0 - 0.40 Complete Blood Count + Differential 0.60 {x10E9/L} See Below [facility] Work Phone: Comment on above: Reference Range: 0.0 5 - 0.80 Complete Blood Count + Differential 1.90 {x10E9/L} See Below [facility] Work Phone: Comment on above: Reference Range: 0.8 0 - 3.00 Complete Blood Count + Differential 5.70 {x10E9/L} above high threshold See Below [facility] Work Phone: Comment on above: Reference Range: 1.6 0 - 5.50 Percent differential counts (%) should be interpreted in the context of the absolute cell counts (cells/L). Complete Blood Count + Differential 2.8 % 0.0 - 6.0 [facility] Work Phone: Coronavirus 2019 RNA by PCR, Screening Asymptomticon 05-13-2021 Coronavirus 2019 RNA by PCR, Screening Asymptomtic Not detected Normal See Below [facility] Work Phone: Comment on above: SOURCE: Nasal, Nasop haryngealReference Range: Not Detected.This test has received FDA Emergency Use Authorization (EUA) and has been verified by [facility]. This test is only authorized for the duration of time that circumstances exist to justify the authorization of the emergency use of in vitro diagnostic tests for the detection of SARS-CoV-2 virus and/or diagnosis of COVID-19 infection under section 564(b)(1) of the Act, 21 U.S.C. 360bbb-3(b)(1), unless the authorization is terminated or revoked sooner. [facility] is certified under CLIA-88 as qualified to perform high complexity testing. Testing is performed in the [facility] laboratory located at [address] [address].SARS-CoV-2/Flu/RSV Multiplex Test: Fact sheet for providers: https://www.fda.gov/media/660713/downloadFact sheet for patients: https://www.fda.gov/media/099109/download Laboratory - Chemistry and C hemistry - challengeon 05-13-2021 Albumin BCP dye [Mass/Vol] 3.9 g/dL 3.4 - 5.0 -[facility] Work Phone: ALP [Catalytic activity/Vol] 65 U/L 33 - 136 -[facility] Work Phone: ALT With P-5'-P [Catalytic activity/Vol] 31 U/L 10 - 52 -[facility] Work Phone: Comment on above: Patients treated wit h Sulfasalazine may generate falsely decreased results for ALT. Anion gap [Moles/Vol] 11 mmol/L 10 - 20 - [facility] Work Phone: AST With P-5'-P [Catalytic activity/Vol] 24 U/L 9 - 39 -[facility] Work Phone: Bilirubin [Mass/Vol] 0.6 mg/dL 0.0 - 1.2 [employer] [facility] Work Phone: Calcium [Mass/Vol] 9.4 mg/dL 8.6 - 10.3 [facility] Work Phone: Chloride [Moles/Vol] 106 mmol/L 98 - 107 [employer] [facility] Work Phone: CO2 [Moles/Vol] 28 mmol/L 21 - 32 -Medica l [facility] Work Phone: Creatinine [Mass/Vol] 0.87 mg/dL See Below - [facility] Work Phone: Comment on above: Reference Range: 0.5 0 - 1.30 Glucose [Mass/Vol] 124 mg/dL above high threshold 74 - 99 -[facility] Work Phone: Natriuretic peptide B (Bld) [Mass/Vol] 307 pg/mL above high threshold 0 - 99 -[facility] Work Phone: Comment on above: . <100 pg/mL - Heart failure [id number] pg/mL - Intermediate probability of acute heart. failure exacerbation. Correlate with clinical. context and patient history. >=300 pg/mL - Heart Failure likely. Correlate with clinical. context and patient history.BNP testing is performed using different testing methodology at [facility] than at other [facility]. Direct result comparisons should only be made within the same method. Potassium [Moles/Vol] 4.2 mmol/L 3.5 - 5.3 [facility] Path.To [facility] Work Phone: Protein [Mass/Vol] 6.6 g/dL 6.4 - 8.2 [employer] [facility] Work Phone: Sodium [Moles/Vol] 141 mmol/L 136 - 145 [facility] Work Phone: Urea nitrogen [Mass/Vol] 17 mg/dL 6 - 23 [facility] Work Phone: Glucose [Mass/Vol] 108 mg/dL above high threshold 74 - 99 [facility] Work Phone: Magnesium, Serumon 1 Magnesium [Mass/Vol] 2.09 mg/dL See Below [facility] Work Phone: Comment on above: Reference Range: 1.6 0 - 2.40 No Panel Informationon 05-13 >60 >60 [facility]ENTERAffib[facility] Work Phone: Comment on above: CALCULATIONS OF SETH MATED GFR ARE PERFORMED USING THE MDRD STUDY EQUATION FOR THE IDMS-TRACEABLE CREATININE METHODS. CLIN CHEM 2007;53:766-72 [email or web address] 1: [email or web address] eb.[email or web address]?RetrieveTestByD ateTime?[email or web address]=[id number]&Date=06-11-2021& Time=12%3a44%3a49%3a00 &TestType=ECG&Site=14& OutputType=PDF&Ext=PDF [facility]ENTER[facility] Work Phone: Please see physicia n note for formal interpretation confirmed by Scribe [facility] Work Phone: Normal [facility] Work Phone: [phone] [facility] Work Phone: [phone] [facility] Work Phone: [phone] [facility] Work Phone: [phone] [facility] Work Phone: [phone] [facility] [employer] [facility] Work Phone: [phone] [facility] [employer] [facility] Work Phone: [phone] [facility] [employer] [facility] Work Phone: [phone] [facility] [employer] [facility] Work Phone: [phone] [facility] [employer] [facility] Work Phone: [phone] [facility] [employer] [facility] Work Phone: [phone] [facility] Work Phone: Radiologyon 05-13-2021 XR Chest Single view Normal MP-[facility] [employer] [facility] Work Phone: Troponin I, Serumon 05-13-20 21 Troponin I.cardiac [Mass/Vol] Canceled MP-[facility] Work Phone: Comment on above: LESS THAN 0.04 NG/ML : NEGATIVEREPEAT TESTING IN THREE TO SIX HOURSIF CLINICALLY INDICATED.0.04 - 0.5 NG/ML: CONSISTENT WITH POSSIBLECARDIAC DAMAGE AND POSSIBLE INCREASEDCLINICAL RISK.SERIAL MEASUREMENTS MAY HELP ASSESS EXTENT OFMYOCARDIAL DAMAGE.>0.5 NG/ML: CONSISTENT WITH CARDIAC DAMAGE,INCREASED CLINICAL RISK AND MYOCARDIALINFARCTION. SERIAL MEASUREMENTS MAY HELPASSESS EXTENT OF MYOCARDIAL DAMAGE..Note: Troponin I testing is performed using different testing methodology at [facility] than at other system hospitals. Direct result comparisons should only be made within the same method. Troponin I.cardiac [Mass/Vol] 0.02 ng/mL See Below [facility] Work Phone: Comment on above: Reference Range: 0.0 0 - 0.03LESS THAN 0.04 NG/ML: NEGATIVEREPEAT TESTING IN THREE TO SIX HOURSIF CLINICALLY INDICATED.0.04 - 0.5 NG/ML: CONSISTENT WITH POSSIBLECARDIAC DAMAGE AND POSSIBLE INCREASEDCLINICAL RISK.SERIAL MEASUREMENTS MAY HELP ASSESS EXTENT OFMYOCARDIAL DAMAGE.>0.5 NG/ML: CONSISTENT WITH CARDIAC DAMAGE,INCREASED CLINICAL RISK AND MYOCARDIALINFARCTION. SERIAL MEASUREMENTS MAY HELPASSESS EXTENT OF MYOCARDIAL DAMAGE..Note: Troponin I testing is performed using different testing methodology at [facility] than at [facility]. Direct result comparisons should only be made within the same method. MRI L Spine w/wo Contraston 03-31-2021 MR Lumbar spine WO and W contrast IT Normal MP-[facility] Work Phone: [place] ORT LARGE JOINT ARTHROCEN TESISOrdered By: Yaritza Luna on 01-19-2021 Yaritza Luna CNP 01/19/2021 2:19 PM LG Jt Injection/Arthrocentes is: R knee Performed by: Yaritza Luna CNP Authorized by: Yaritza Luna CNP CPT 18366 - Large Joint Arthrocentesis: Consent given by: Patient Time out: Immediately prior to the procedure a time out was called Physician or proceduralist has discussed critical or nonroutine steps, procedure duration and anticipated blood loss: Yes Supporting Documentation: Indications: Pain, joint swelling and diagnostic evaluation Procedure Details: Location: Knee Site: R knee Prep: patient was prepped and draped in usual sterile fashion Needle size: 22 G Approach: Anterolateral Medications: 40 mg triamcinolone acetonide 40 mg/mL Anesthetic used: Lidocaine 1% Anesthetic amount (mL): 2 Patient tolerance: Patient tolerated the procedure well with no immediate 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s [facility] Tobacco Screening.on 021 Fall risk assessment b) One or more fall s in the last year -Cardiology- [address] Work Phone: Tobacco use status CPHS b) No -Cardiology- [address] Work Phone: Hemoglobin A1Con 12-27-2020 Glucose [Mass/Vol] 163 mg/dL -[facility] Work Phone: HbA1c (Bld) [Mass fraction] 7.3 % -[facility] Work Phone: Comment on above: Diagnosis of Diabete s-Adults Non-Diabetic: < or = 5.6% Increased risk for developing diabetes: 5.7-6.4% Diagnostic of diabetes: > or = 6.5%. Monitoring of Diabetes Age (y) Therapeutic Goal (%) Adults: >18 <7.0 Pediatrics: 13-18 <7.5 7-12 <8.0 0- 6 7.5-8.5 [employer]. Diabetes Care 33(S1), Jul 2009. Laboratory - Chemistry and C hemistry - challengeon 12-27-2020 Albumin Ql (U) 22.1 mg/L See Below -Medical [employer] [facility] Work Phone: Comment on above: Reference Range: Not Established Albumin/Creatinine DL <= 20 mg/L (U) [Mass ratio] 21.3 {ug/mg_crt} 0.0 - 30.0 -[facility] Work Phone: Creatinine (U) [Mass/Vol] 104.0 mg/dL See Below [facility] Work Phone: Comment on above: Reference Range: 20. 0 - 370.0 Albumin BCP dye [Mass/Vol] 3.8 g/dL 3.4 - 5.0 -[facility] [place] Phone: ALP [Catalytic activity/Vol] 57 U/L 33 - 136 -[facility] Work Phone: ALT With P-5'-P [Catalytic activity/Vol] 18 U/L 10 - 52 [facility]: Comment on above: Patients treated wit h Sulfasalazine may generate falsely decreased results for ALT. Anion gap [Moles/Vol] 11 mmol/L 10 - 20 [facility] Work Phone: AST With P-5'-P [Catalytic activity/Vol] 14 U/L 9 - 39 -[facility] Work Phone: Bilirubin [Mass/Vol] 0.4 mg/dL 0.0 - 1.2 - [facility] Work Phone: Calcium [Mass/Vol] 9.0 mg/dL 8.6 - 10.3 -[facility] Work Phone: Chloride [Moles/Vol] 108 mmol/L above high threshold 98 - 107 -[facility] Work Phone: CO2 [Moles/Vol] 28 mmol/L 21 - 32 [facility] Work Phone: Creatinine [Mass/Vol] 0.89 mg/dL See Below - [facility] Work Phone: Comment on above: Reference Range: 0.5 0 - 1.30 Glucose [Mass/Vol] 129 mg/dL above high threshold 74 - 99 [facility] Work Phone: Potassium [Moles/Vol] 4.0 mmol/L 3.5 - 5.3 - [facility] Work Phone: Protein [Mass/Vol] 6.4 g/dL 6.4 - 8.2 -[facility] Work Phone: Sodium [Moles/Vol] 143 mmol/L 136 - 145 -[facility] Work Phone: Urea nitrogen [Mass/Vol] 19 mg/dL 6 - 23 -[facility] Work Phone: Lipid Panelon 12-27-2020 Cholesterol [Mass/Vol] 127 mg/dL 0 - 199 -[facility] Work Phone: Comment on above: . AGE DESIRABLE BORD SERGIO HIGH HIGH 0-19 Y 0 - 169 170 - 199 >/= 200 20-24 Y 0 - 189 190 - 224 >/= 225 >24 Y 0 - 199 200 - 239 >/= 240 All ranges are based on fasting samples. Specific therapeutic targets will vary based on patient-specific cardiac risk.. Pediatric guidelines reference:Pediatrics 2011, 128(S5). Adult guidelines reference: NCEP ATPIII Guidelines, ASHOK 2001, 258:2486-97. Venipuncture immediately after or during the administration of Metamizole may lead to falsely low results. Testing should be performed immediately prior to Metamizole dosing. Cholesterol in HDL [Mass/Vol] 46.0 mg/dL [employer] [facility] Work Phone: Comment on above: . AGE VERY LOW LOW N ORMAL HIGH 0-19 Y < 35 < 40 40-45 ---- 20-24 Y ---- < 40 >45 ---- >24 Y ---- < 40 40-60 >60. Cholesterol in LDL [Mass/Vol] 62 mg/dL 0 - 99 [employer] Work Phone: Comment on above: . NEAR BORD AGE SHLOMO RABLE OPTIMAL HIGH HIGH VERY HIGH 0-19 Y 0 - 109 --- 110-129 >/= 130 ---- 20-24 Y 0 - 119 --- 120-159 >/= 160 ---- >24 Y 0 - 99 100-129 130-159 160-189 >/=190. Cholesterol.total/Chol esterol in HDL [Mass ratio] 2.8 {ratio} [employer] [facility] Work Phone: Comment on above: REF VALUESDESIRABLE < 3.4HIGH RISK > 5.0 Triglyceride [Mass/Vol] 94 mg/dL 0 - 149 [employer] [facility] Work Phone: Comment on above: . AGE DESIRABLE BORD SERGIO HIGH HIGH VERY HIGH 0 D-90 D 19 - 174 ---- ---- ----91 D- 9 Y 0 - 74 75 - 99 >/= 100 ---- 10-19 Y 0 - 89 90 - 129 >/= 130 ---- 20-24 Y 0 - 114 115 - 149 >/= 150 ---- >24 Y 0 - 149 150 - 199 200- 499 >/= 500. Venipuncture immediately after or during the administration of Metamizole may lead to falsely low results. Testing should be performed immediately prior to Metamizole dosing. Lipid Panel 19 mg/dL 0 - 40 [facility] Work Phone: No Panel Informationon 12-27 >60 >60 [facility] Work Phone: Comment on above: CALCULATIONS OF SETH MATED GFR ARE PERFORMED USING THE MDRD STUDY EQUATION FOR THE IDMS-TRACEABLE CREATININE METHODS. CLIN CHEM 2007;53:766-72 Prostate Spec.Ag, Screenon 0 12-27-2020 Prostate specific Ag [Mass/Vol] 0.76 ng/mL See Below [facility] Work Phone: Comment on above: Reference Range: 0.0 0 - 4.00The FDA requires that the method used for PSA assay be reported to the physician. Values obtained with different assay methods must not be used interchangeably. This testwas performed at [facility] using the Access CO2StatsbrHALSCION PSA assay is a two-site immunoenzymatic sandwich assay. The assay is approved for measurement of prostate-specific antigen (PSA)in serum and may be used in conjunction with a digital rectal examination in men 50 years and older as an aid in detection of prostate cancer.3-Cmkjm-gbqkbvwzw inhibitors (e.g. Proscar, Finasteride, Avodart, Dutasteride and Shayy) for the treatment of BPH have been shown to lower PSA levels by an average of 50% after 6 months of treatment. TSH - Thyroid Stimulating Ho rmone, Serumon 12-27-2020 TSH Qn 1.99 m[IU]/L See Below [facility]: Comment on above: Reference Range: 0.4 4 - 3.98 TSH testing is performed using different testing methodology at [facility] than at other [facility]. Direct result comparisons should only be made within the same method. [place] ORT LARGE JOINT ARTHROCEN TESISOrdered By: Yaritza Luna on 10-27-2020 Yaritza Luna CNP 10/27/2020 4:46 PM LG Jt Injection/Arthrocentes is: R knee Performed by: Yaritza Luna CNP Authorized by: Yaritza Luna CNP CPT 87547 - Large Joint Arthrocentesis: Consent given by: Patient Time out: Immediately prior to the procedure a time out was called Physician or proceduralist has discussed critical or nonroutine steps, procedure duration and anticipated blood loss: Yes Supporting Documentation: Indications: Pain, joint swelling and diagnostic evaluation Procedure Details: Location: Knee Site: R knee Prep: patient was prepped and draped in usual sterile fashion Needle size: 22 G Approach: Anterolateral Medications: 40 mg triamcinolone acetonide 40 mg/mL Anesthetic used: Lidocaine 1% Anesthetic amount (mL): 2 Patient tolerance: Patient tolerated the procedure well with no immediate 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s [facility] HbA1c (Bld) [Mass fraction]O rdered By: [facility] Provider on 09-01-2020 Interpretation and review of laboratory results Abnormal [facility] Hemoglobin [id number] By: Ia kameron Provider on 09-01-2020 HbA1c (Bld) [Mass fraction] 6.9 % Abnormal 4.2 - 5.6 % [facility] Coronavirus 2019 RNA by PCR, Symptomaticon 07-07-2020 When did you start to experience these symptoms [Date and time] [PhenX] [id number] -[employer] Work Phone: Comment on above: POS COV REPORTED TO TURNER HENDERSON, 07/09/2020 09:32 Coronavirus 2019 RNA by PCR, Symptomatic DETECTED Abnormal See Below [facility] Work Phone: Comment on above: SOURCE: Nasal, Nasop haryngealReference Range: Not Detected.This assay is designed to detect the ORF1ab and/or S genes of SARS-CoV-2 via nucleic acid amplification. A Not Detected result does not preclude 2019-nCoV infection since the adequacy of sample collection and/or low viral burden may result in presence of viral nucleic acids below the clinical sensitivity of this test method. Fact sheet for providers: www.fda.gov/media/717530/downloadFact sheet for patients: www.fda.gov/media/328381/downloadThis test has received FDA Emergency Use Authorization (EUA) and has been verified by [facility] ([facility]). This test is only authorized for the duration of time that circumstances exist to justify the authorization of the emergency use of in vitro diagnostic tests for the detection of SARS-CoV-2 virus and/or diagnosis of COVID-19 infection under section 564(b)(1) of the Act, 21 U.S.C. 360bbb-3(b)(1), unless the authorization is terminated or revoked sooner. [facility] is certified under CLIA-88 as qualified to perform high complexity testing. Testing is performed in the [facility] laboratories located at [address] [place] [address].POS COV REPORTED TO TURNER HENDERSON, 07/09/2020 09:32 POS COV REPORTED TO TURNER HENDERSON, 07/09/2020 09:32 Hemoglobin A1Con 06-28-2020 HbA1c (Bld) [Mass fraction] 151 {MG/DL} [facility] Work Phone: HbA1c (Bld) [Mass fraction] 6.9 % [facility] Work Phone: Comment on above: Diagnosis of Diabete s-Adults Non-Diabetic: < or = 5.6% Increased risk for developing diabetes: 5.7-6.4% Diagnostic of diabetes: > or = 6.5%. Monitoring of Diabetes Age (y) Therapeutic Goal (%) Adults: >18 <7.0 Pediatrics: 13-18 <7.5 7-12 <8.0 0- 6 7.5-8.5 [employer]. Diabetes Care 33(S1), Jul 2009. LDL, Direct, Serumon 020 Cholesterol in LDL [Mass/Vol] 73 mg/dL 0 - 129 [facility] Work Phone: Comment on above: Elevated levels of L DL cholesterol are recognized as a chapin factor in the development of atherosclerosis and CHD. The direct LDL cholesterol test can be used to assess cardiovascular risk and monitor therapy as a follow up to a lipid profile when triglycerides are significantly elevated. Metabolic Panelon 06-28-2020 ALP [Catalytic activity/Vol] 49 U/L 33 - 136 [facility] Work Phone: Anion gap [Moles/Vol] 10 mmol/L 10 - 20 - [facility] Work Phone: Bilirubin [Mass/Vol] 0.4 mg/dL 0.0 - 1.2 - [facility] Work Phone: Calcium [Mass/Vol] 8.9 mg/dL 8.6 - 10.3 [facility] Work Phone: Chloride [Moles/Vol] 106 mmol/L 98 - 107 - [facility] Work Phone: CO2 [Moles/Vol] 29 mmol/L 21 - 32 [facility] Work Phone: Creatinine [Mass/Vol] 0.94 mg/dL See Below - [facility] Work Phone: Comment on above: Reference Range: 0.5 0 - 1.30 Glucose [Mass/Vol] 124 mg/dL above high threshold 74 - 99 [facility] Work Phone: Potassium [Moles/Vol] 3.9 mmol/L 3.5 - 5.3 - [facility] Work Phone: Protein [Mass/Vol] 6.1 g/dL below low threshold 6.4 - 8.2 -[facility] Work Phone: Sodium [Moles/Vol] 141 mmol/L 136 - 145 [facility] Work Phone: Urea nitrogen [Mass/Vol] 18 mg/dL 6 - 23 -[facility] Work Phone: Otheron 06-28-2020 Albumin BCP dye [Mass/Vol] 3.9 g/dL 3.4 - 5.0 [facility] Work Phone: ALT With P-5'-P [Catalytic activity/Vol] 41 U/L 10 - 52 -[facility] Work Phone: Comment on above: Patients treated wit h Sulfasalazine may generate falsely decreased results for ALT. AST With P-5'-P [Catalytic activity/Vol] 36 U/L 9 - 39 [facility] Work Phone: >60 >60 -[facility] Work Phone: Comment on above: CALCULATIONS OF SETH MATED GFR ARE PERFORMED USING THE MDRD STUDY EQUATION FOR THE IDMS-TRACEABLE CREATININE METHODS. CLIN CHEM 2007;53:766-72 MD [place] Injection/Arthrocentes is: R radiocarpalon 08-18-2019 Yaritza Luna CNP 08/18/2019 2:57 PM MD [place] Injection/Arthrocentes is: R radiocarpal Performed by: Yaritza Luna CNP Authorized by: Yaritza Luna CNP CPT 51332 - Medium Joint Arthrocentesis: Time out: Immediately prior to the procedure a time out was called Physician or proceduralist has discussed critical or nonroutine steps, procedure duration and anticipated blood loss: Yes Supporting Documentation: Indications: Pain and diagnostic evaluation Procedure Details: Location: Wrist Site: R radiocarpal Prep: patient was prepped and draped in usual sterile fashion Needle size: 22 G Approach: Dorsal Medications: 40 mg triamcinolone acetonide 40 mg/mL Anesthetic amount (mL): 1 Patient tolerance: Patient tolerated the procedure well with no immediate 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s [facility] Hemoglobin A1Con 06-19-2019 HbA1c (Bld) [Mass fraction] 7.2 % -[facility] Work Phone: Comment on above: Diagnosis of Diabete s-Adults Non-Diabetic: < or = 5.6% Increased risk for developing diabetes: 5.7-6.4% Diagnostic of diabetes: > or = 6.5%. Monitoring of Diabetes Age (y) Therapeutic Goal (%) Adults: >18 <7.0 Pediatrics: 13-18 <7.5 7-12 <8.0 0- 6 7.5-8.5 [employer]. Diabetes Care 33(S1), Jul 2009. HbA1c (Bld) [Mass fraction] 160 {MG/DL} [facility] Work Phone: LDL, Direct, Serumon 019 Cholesterol in LDL [Mass/Vol] 88 mg/dL 0 - 129 -[facility] [employer] [facility] Work Phone: Comment on above: Elevated levels of L DL cholesterol are recognized as a chapin factor in the development of atherosclerosis and CHD. The direct LDL cholesterol test can be used to assess cardiovascular risk and monitor therapy as a follow up to a lipid profile when triglycerides are significantly elevated. Metabolic Panelon 06-19-2019 ALP [Catalytic activity/Vol] 54 U/L 33 - 136 -[facility] [employer] [facility] Work Phone: Anion gap [Moles/Vol] 10 mmol/L 10 - 20 - [employer] [facility] Work Phone: Bilirubin [Mass/Vol] 0.4 mg/dL 0.0 - 1.2 - [facility] [employer] [facility] Work Phone: Calcium [Mass/Vol] 9.1 mg/dL 8.6 - 10.3 -[facility] ical [employer] [facility] Work Phone: Chloride [Moles/Vol] 107 mmol/L 98 - 107 [employer] [facility] [employer] [facility] Work Phone: CO2 [Moles/Vol] 28 mmol/L 21 - 32 -Medica l [employer] [facility] Work Phone: Creatinine [Mass/Vol] 1.12 mg/dL See Below - Medical [employer] [facility] Work Phone: Comment on above: Reference Range: 0.5 0 - 1.30 Glucose [Mass/Vol] 142 mg/dL above high threshold 74 - 99 -[facility] [employer] [facility] Work Phone: Potassium [Moles/Vol] 4.1 mmol/L 3.5 - 5.3 - Medical [employer] [facility] Work Phone: Protein [Mass/Vol] 6.4 g/dL 6.4 - 8.2 [facility] Work Phone: Sodium [Moles/Vol] 141 mmol/L 136 - 145 [facility] Work Phone: Urea nitrogen [Mass/Vol] 22 mg/dL 6 - 23 [facility] Work Phone: Otheron 06-19-2019 Albumin BCP dye [Mass/Vol] 4.0 g/dL 3.4 - 5.0 [facility] Work Phone: ALT With P-5'-P [Catalytic activity/Vol] 28 U/L 10 - 52 [facility] Work Phone: Comment on above: Patients treated wit h Sulfasalazine may generate falsely decreased results for ALT. AST With P-5'-P [Catalytic activity/Vol] 21 U/L 9 - 39 [facility] Work Phone: >60 >60 [facility] Work Phone: Comment on above: CALCULATIONS OF SETH MATED GFR ARE PERFORMED USING THE MDRD STUDY EQUATION FOR THE IDMS-TRACEABLE CREATININE METHODS. CLIN CHEM 2007;53:766-72 Auto Diffon 12-09-2018 Basophils (Bld) [#/Vol] 0.0 E3/mcL Normal 0.0-0.2 [facility] Comment on above: Order Comment: Order Added by Discern Expert. Performed By: #### [id number] #### [facility]NE Hematology [employer]section [facility] [place] [address] Basophils/100 WBC (Bld) 0.7 % Normal 0.0-2.0 [facility] Comment on above: Order Comment: Order Added by Discern Expert. Performed By: #### 2 [id number] #### [facility] [employer] [address] [place] [address] Eos Absolute 0.3 E3/mcL Normal 0.0-0.7 [facility] Comment on above: Order Comment: Order Added by Discern Expert. Performed By: #### 2 [id number] #### [facility] [employer] [address] [place] [address] Eosinophils/100 WBC (Bld) 4.4 % Normal 0.0-11.0 [facility] Comment on above: Order Comment: Order Added by Discern Expert. Performed By: #### 2 [id number] #### [facility] [employer] [address] [place] [address] 17071 Lymphocytes (Bld) [#/Vol] 2.5 E3/mcL Normal 1.2-3.4 [facility] Comment on above: Order Comment: Order Added by Discern Expert. Performed By: #### 2 [id number] #### [facility] [employer] [address] [place] [address] 18408 Lymphocytes/100 WBC (Bld) 34.9 % Normal 20.0-55.0 [facility] Comment on above: Order Comment: Order Added by Discern Expert. Performed By: #### 2 [id number] #### [facility] [employer] [address] [place] [address]93 Antelope Absolute 0.5 E3/mcL Normal 0.0-0.7 [facility] Comment on above: Order Comment: Order Added by Discern Expert. Performed By: #### 2 [id number] #### [facility] [employer] [address] [place] [address] 09605 Monocytes/100 WBC (Bld) 7.5 % Normal 0.0-10.0 [facility] Comment on above: Order Comment: Order Added by Discern Expert. Performed By: #### 2 [id number] #### [facility] [employer] [address] [place] [address]89 Neutro Absolute 3.7 E3/mcL Normal 1.4-6.5 [facility] Comment on above: Order Comment: Order Added by Discern Expert. Performed By: #### 2 [id number] #### [facility] [employer] [address] [place] [address] 07404 Neutro Auto 52.5 % Normal 37.0-75.0 [facility] Comment on above: Order Comment: Order Added by Discern Expert. Performed By: #### 2 [id number] #### [facility]NE [facility] [employer] [address] [place] [address] 17016 CBC w/ Auto Diffon 9 Erythrocyte distribution width (RBC) [Ratio] 14.6 % High 11.5-14.5 [facility] Comment on above: Performed By: #### 2 [id number] #### [facility] [employer] [address] [place] [address]6525 Hematocrit (Bld) [Volume fraction] 38.0 % Low 42.0-52.0 [facility] Comment on above: Performed By: #### 2 [id number] #### [facility] [employer] [address] [place] [address]648 Hemoglobin (Bld) [Mass/Vol] 12.3 g/dL Low 13.5-18.0 [facility] Comment on above: Performed By: #### 2 [id number] #### [facility]NE [facility] [employer] [address] [place] [address] MCH (RBC) [Entitic mass] 30.4 pg Normal 27.0-31.0 [facility] Comment on above: Performed By: #### 2 [id number] #### DEANNE Hematology [employer]section [address] [place], [place] [id number] MCHC (RBC) [Mass/Vol] 32.4 g/dL Low 33.0-37.0 [facility] Comment on above: Performed By: #### 2 [id number] #### DEANNE Hemat[facility] [employer] [address] [place], [place] [id number] MCV (RBC) [Entitic vol] 94.0 fL Normal 78.0-100.0 [facility] Comment on above: Performed By: #### 2 [id number] #### [facility] [employer] [address] [place] [id number] Platelet mean volume (Bld) [Entitic vol] 9.1 fL Normal 7.4-11.0 [facility] Comment on above: Performed By: #### 2 [id number] #### [facility] [employer] [address] [place] [address] 73184 Platelets (Bld) [#/Vol] 290 E3/mcL Normal 130-400 [facility] Comment on above: Performed By: #### 2 [id number] #### DEANNE Hematology [employer]section [address] [place] [address] RBC (Bld) [#/Vol] 4.04 E6/mcL Normal 3.90-6.10 [facility] Comment on above: Performed By: #### 2 [id number] #### DEANNE Hematology [employer]section [address] [place], [place] [id number] WBC (Bld) [#/Vol] 7.0 E3/mcL Normal 3.6-11.0 [facility] Comment on above: Performed By: #### 2 [id number] #### DE[facility]NE Hematology [employer] Subsection [address] [place] [address] CMPon 12-09-2018 Albumin [Mass/Vol] 3.7 g/dL Normal 3.4-5.0 [facility] Comment on above: Performed By: #### 2 [id number] #### DEANNE Hematology Automated Subsection [address] [place], [place] [id number] Albumin/Globulin [Mass ratio] 1.4 {ratio} Normal 1.1-1.9 [facility] Comment on above: Performed By: #### 2 [id number] #### DEANNE Hematology Automated Subsection [address] [place], [place] [address] Alk Phos 50 Int._Unit/L Normal 33-136 [facility] Comment on above: Performed By: #### 2 [id number] #### DEANNE Hematology Automated Subsection [address] [place], [place] [id number] ALT [Catalytic activity/Vol] 21 Int._Unit/L Normal 10-52 [facility] Comment on above: Performed By: #### 2 [id number] #### DEANNE Hematology Automated Subsection [address] [place], [place] [id number] Anion gap [Moles/Vol] 10 mmol/L Normal 10-20 [facility] Comment on above: Performed By: #### 2 [id number] #### DEANNE Hematology Automated Subsection [address] [place], [place] [id number] AST [Catalytic activity/Vol] 17 Int._Unit/L Normal 9-39 [facility] Comment on above: Performed By: #### 2 [id number] #### DEANNE Hematology Automated Subsection [address] [place] [address] Bili Total 0.49 mg/dL Normal 0.00-1.20 [facility] Comment on above: Performed By: #### 2 [id number] #### DEANNE Hematology Automated Subsection [facility] [place] [address] Calcium [Mass/Vol] 8.9 mg/dL Normal 8.6-10.3 [facility] Comment on above: Performed By: #### 2 [id number] #### DEANNE Hematology Automated Subsection [facility] [place] [address] Chloride [Moles/Vol] 106 mmol/L Normal 98-107 [facility] Comment on above: Performed By: #### 2 110396 #### DEANNE Hematology Automated Subsection [facility] [place] [address] CO2 [Moles/Vol] 29.0 mmol/L Normal 21.0-32.0 [facility] Comment on above: Performed By: #### 2 [id number] #### DEANNE Hematology Automated Subsection [facility] [place] [address] Creatinine [Mass/Vol] 0.9 mg/dL Normal 0.5-1.3 [facility] Comment on above: Performed By: #### 2 [id number] #### DEANNE Hematology Automated Subsection [address] [place] [address] Globulin (S) [Mass/Vol] 3.0 g/dL Normal 2.0-4.0 [facility] Comment on above: Performed By: #### 2 [id number] #### DEANNE Hematology Automated Subsection [facility] [place] [address] Glucose [Mass/Vol] 131 mg/dL High 70-99 [facility] Comment on above: Performed By: #### 2 199918 #### DEANNE Hematology Automated Subsection [address] [place] [address] Potassium [Moles/Vol] 4.2 mmol/L Normal 3.5-5.3 [facility] Comment on above: Performed By: #### 2 118207 #### DEANNE Hematology Automated Subsection [address] [place] [address] Protein [Mass/Vol] 6.3 g/dL Low 6.4-8.2 [facility] Comment on above: Performed By: #### 2 [id number] #### DEANNE Hematology Automated Subsection [address] [place] [address] Sodium [Moles/Vol] 141 mmol/L Normal 136-145 [facility] Comment on above: Performed By: #### 2 [id number] #### DEANNE Hematology Automated Subsection [address] [place] [address] Urea nitrogen [Mass/Vol] 17 mg/dL Normal 6-23 [facility] Comment on above: Performed By: #### 2 [id number] #### DEANNE Hematology Automated Subsection [address] [place] [address] Urea nitrogen/Creatinine [Mass ratio] 18.9 ratio Normal 5.4-30.0 [facility] Comment on above: Performed By: #### 2 [id number] #### DEANNE Hematology Automated Subsection [address] [place] [address] [id number] 12-09-2018 HbA1c (Bld) [Mass fraction] 7.3 % High 4.0-6.3 [facility] Comment on above: Performed By: #### 2 [id number] #### DEANNE Hematology Automated Subsection [address] [place] [address] Lipid Profileon 12-09-2018 Cholesterol [Mass/Vol] 128 mg/dL Normal 0-[address] [facility] Comment on above: Result Comment: TOTA L CHOLEESTEROL: <200 NORMAL 200 - 239 BORDERLINE HIGH >240 HIGH Performed By: #### 2 [id number] #### DEANNE Hematology Automated Subsection [address] [place] [address] Cholesterol in HDL [Mass/Vol] 45 mg/dL Normal 40-60 [facility] Comment on above: Performed By: #### 2 620835 #### DEANNE Hematology Automated Subsection [address] [place] [address] Cholesterol in LDL [Mass/Vol] 65 mg/dL Normal 0-130 [facility] Comment on above: Result Comment: <100 OPTIMAL 100-129 NEAR / ABOVE OPTIMAL 130-159 BORDERLINE HIGH 160-189 HIGH >190 VERY HIGH CALC LDL NOT VALID WHEN TRIGLYCERIDE IS >400 MG/DL Performed By: #### 2 650881 #### DEANNE Hematology Automated Subsection [address] [place] [address]25 Cholesterol in VLDL [Mass/Vol] 18 mg/dL Normal 0-40 [facility] Comment on above: Performed By: #### 2 781207 #### DEANNE Hematology Automated Subsection [facility] [place] [id number] Triglyceride [Mass/Vol] 92 mg/dL Normal 0-149 [facility] Comment on above: Result Comment: AGE DESIRABLE BORDERLINE HIGH 91 D - 9 Y 0 - 74 75 - 99 > 100 10 - 19 Y 0 - 89 90 - 129 > 130 20 -24 Y 0 - 114 115 - 149 > 150 > 25 0 - 149 150 - 199 200 - 499 Performed By: #### 2 355741 #### DEANNE Hematology Automated Subsection [address] [place] [address] TSHon 12-09-2018 TSH Qn 2.42 mcIU/mL Normal 0.30-5.60 [facility] Comment on above: Performed By: #### 2 857017 #### DEANNE Hematology Automated Subsection [address] [place] [address] Vit B12on 12-09-2018 Cobalamin (Vitamin B12) [Mass/Vol] 391 pg/mL Normal 180-914 [facility] Comment on above: Performed By: #### 2 865214 #### DEANNE Hematology Automated Subsection [address] [place] [address] eGFRon 12-09-2018 GFR/1.73 sq M predicted among non-blacks MDRD (S/P/Bld) [Vol rate/Area] mL/min/{1.73_m2} Normal [facility] Comment on above: Order Comment: Order added by Discern Expert. Performed By: #### 2 [id number] #### DEANNE Hematology Automated Subsection [address] [place], [place] [address] XR Humerus Righton 9 XR Humerus Right Exam Date/Time: 09/13/2018 11:26 EDT Reason for Exam: Pain, Traumatic Report STUDY: XR Humerus Right; 09/13/2018 11:26 am INDICATION: Pain, Traumatic. COMPARISON: None. ACCESSION NUMBER(S): [id number] ORDERING CLINICIAN: Tye Anne TECHNIQUE: 4 views of the right humerus including AP and lateral projections were obtained. FINDINGS: There is no radiographic evidence of acute fracture or dislocation identified. Mild hypertrophic degenerative changes are seen in the right acromioclavicular joint. Minimal degenerative changes are seen in the glenohumeral joint. IMPRESSION: 1. No evidence of acute fracture or dislocation. 2. Degenerative changes, as described above. FINAL REPORT Dictated: 09/13/2018 1:01 pm Reagan Marie MD Signed (Electronic Signature): 09/13/2018 1:01 pm Signed by: Reagan Marie MD Technologist: ODILON [facility] XR Skull < 4 Viewson 019 XR Skull < 4 Views Exam Date/Time: 09/13/2018 11:26 EDT Reason for Exam: Contusion Report STUDY: XR Skull < 4 Views; 09/13/2018 11:26 am INDICATION: Contusion. COMPARISON: None. ACCESSION NUMBER(S): [id number] ORDERING CLINICIAN: Octavio Crespo FINDINGS: 3 views the skull/facial bones including Montgomery view, water's view and lateral view were obtained. There is no radiographic evidence of displaced fracture identified. The visualized paranasal sinuses are clear without air-fluid levels. IMPRESSION: No radiographic evidence of displaced fracture. If there is continued concern for fracture, CT of the facial bones can be obtained. FINAL REPORT Dictated: 09/13/2018 1:01 pm Reagan Marie MD Signed (Electronic Signature): 09/13/2018 1:01 pm Signed by: Reagan Marie MD Technologist: ODILON [facility] XR Spine Lumbosacral 2 or 3 Viewson 09-13-2018 XR Spine Lumbosacral 2 or 3 Views Exam Date/Time: 09/13/2018 11:26 EDT Reason for Exam: Pain, Traumatic Report STUDY: XR Spine Lumbosacral 2 or 3 Views; 09/13/2018 11:26 am INDICATION: Pain, Traumatic. COMPARISON: 03/19/2017 ACCESSION NUMBER(S): [id number] ORDERING CLINICIAN: Tye Anne FINDINGS: 3 views of the lumbar spine including AP, lateral and lateral cone-down views were obtained. There is no acute fracture identified. The vertebral bodies are well aligned without evidence of subluxation. Mild disc space narrowing and small marginal osteophytes are seen throughout the lumbar spine. Bridging osteophyte formation is seen at the T12-L1 level. Moderate facet degenerative changes are seen throughout the lumbar spine. IMPRESSION: 1. No evidence of acute fracture. 2. Degenerative changes throughout the lumbar spine, as described above. FINAL REPORT Dictated: 09/13/2018 1:03 pm Reagan Marie MD Signed (Electronic Signature): 09/13/2018 1:03 pm Signed by: Reagan Marie MD Technologist: ODILON [facility] Auto Diffon 08-29-2018 Basophils (Bld) [#/Vol] 0.1 E3/mcL Normal 0.0-0.2 [facility] Comment on above: Order Comment: Order added by Discern Expert. Performed By: #### 1 [id number] #### DEANNE RemChem [address] [place] [address] Basophils/100 WBC (Bld) 0.7 % Normal 0.0-2.0 [facility] Comment on above: Order Comment: Order added by Discern Expert. Performed By: #### 1 [id number] #### DEANNE RemChem [address] [place] [address] Eos Absolute 0.2 E3/mcL Normal 0.0-0.7 [facility] Comment on above: Order Comment: Order added by Discern Expert. Performed By: #### 1 [id number] #### DEANNE RemChem [address] [place] [address] Eosinophils/100 WBC (Bld) 2.7 % Normal 0.0-11.0 [facility] Comment on above: Order Comment: Order added by Discern Expert. Performed By: #### 1 [id number] #### DEANNE Rem[employer] [address] [place] [address] Lymphocytes (Bld) [#/Vol] 2.3 E3/mcL Normal 1.2-3.4 [facility] Comment on above: Order Comment: Order added by Discern Expert. Performed By: #### 1 [id number] #### DEANNE RemChem [address] [place] [address] Lymphocytes/100 WBC (Bld) 25.0 % Normal 20.0-55.0 [facility] Comment on above: Order Comment: Order added by Discern Expert. Performed By: #### 1 [id number] #### DEANNE [address] [address] [place] Absolute 0.5 E3/mcL Normal 0.0-0.7 [facility] Comment on above: Order Comment: Order added by Discern Expert. Performed By: #### 1 [id number] #### DEANNE [address] [address] Monocytes/100 WBC (Bld) 5.7 % Normal 0.0-10.0 [facility] Comment on above: Order Comment: Order added by Discern Expert. Performed By: #### 1 [id number] #### DEANNE [address] [address] Neutro Absolute 6.0 E3/mcL Normal 1.4-6.5 [facility] Comment on above: Order Comment: Order added by Discern Expert. Performed By: #### 1 [id number] #### DEANNE [address] [address] Neutro Auto 65.9 % Normal 37.0-75.0 [facility] Comment on above: Order Comment: Order added by Discern Expert. Performed By: #### 1 [id number] #### DEANNE Sue[address] [address] CBC w/ Auto Diffon 9 Erythrocyte distribution width (RBC) [Ratio] 14.2 % Normal 11.5-14.5 [facility] Comment on above: Performed By: #### 1 [id number] #### DEANNE Linette[address] [address] Hematocrit (Bld) [Volume fraction] 39.3 % Low 42.0-52.0 [facility] Comment on above: Performed By: #### 1 [id number] #### DEANNE Sue[address] [address] Hemoglobin (Bld) [Mass/Vol] 12.6 g/dL Low 13.5-18.0 [facility] Comment on above: Performed By: #### 1 [id number] #### DEANNE Rem[address] [place] [address] MCH (RBC) [Entitic mass] 30.2 pg Normal 27.0-31.0 [facility] Comment on above: Performed By: #### 1 [id number] #### DEANNE RemChem [facility] [place] [address] MCHC (RBC) [Mass/Vol] 32.2 g/dL Low 33.0-37.0 [facility] Comment on above: Performed By: #### 1 [id number] #### DEANNE RemChem [facility] [place] [address] MCV (RBC) [Entitic vol] 93.8 fL Normal 78.0-100.0 [facility] Comment on above: Performed By: #### 1 [id number] #### DEANNE Rem[address] [address] Platelet mean volume (Bld) [Entitic vol] 8.9 fL Normal 7.4-11.0 [facility] Comment on above: Performed By: #### 1 [id number] #### DEANNE Rem[address] [address] Platelets (Bld) [#/Vol] 319 E3/mcL Normal 130-400 [facility] Comment on above: Performed By: #### 1 [id number] #### DEANNE Rem[address] [address] RBC (Bld) [#/Vol] 4.19 E6/mcL Normal 3.90-6.10 [facility] Comment on above: Performed By: #### 1 [id number] #### DEANNE [address] [place] [address] WBC (Bld) [#/Vol] 9.1 E3/mcL Normal 3.6-11.0 [facility] Comment on above: Performed By: #### 1 [id number] #### DEANNE [address] [place] [address] CMPon 08-29-2018 Albumin [Mass/Vol] 3.9 g/dL Normal 3.4-5.0 [facility] Comment on above: Performed By: #### 2 462983 #### DEANNE Hematology Automated Subsection [address] [place] [address] Albumin/Globulin [Mass ratio] 1.6 {ratio} Normal 1.1-1.9 [facility] Comment on above: Performed By: #### 2 555562 #### DEANNE Hematology Automated Subsection [address] [place] [address] Alk Phos 53 Int._Unit/L Normal 33-136 [facility] Comment on above: Performed By: #### 2 [id number] #### DEANNE Hematology Automated Subsection [address] [place], [place] [address] ALT [Catalytic activity/Vol] 22 Int._Unit/L Normal 10-52 [facility] Comment on above: Performed By: #### 2 [id number] #### DEANNE Hematology Automated Subsection [address] [place] [address] Anion gap [Moles/Vol] 11 mmol/L Normal 10-20 [facility] Comment on above: Performed By: #### 2 [id number] #### DEANNE Hematology Automated Subsection [address] [place] [address] AST [Catalytic activity/Vol] 16 Int._Unit/L Normal 9-39 [facility] Comment on above: Performed By: #### 2 514178 #### DEANNE Hematology Automated Subsection [address] [place] [address] Bili Total 0.25 mg/dL Normal 0.00-1.20 [facility] Comment on above: Performed By: #### 2 242566 #### DEANNE Hematology Automated Subsection [address] [place], [place] [address] Calcium [Mass/Vol] 9.2 mg/dL Normal 8.6-10.3 [facility] Comment on above: Performed By: #### 2 046641 #### DEANNE Hematology Automated Subsection [address] [place] [address] Chloride [Moles/Vol] 108 mmol/L High 98-107 [facility] Comment on above: Performed By: #### 2 377792 #### DEANNE Hematology Automated Subsection [address] [place] [address] CO2 [Moles/Vol] 28.0 mmol/L Normal 21.0-32.0 [facility] Comment on above: Performed By: #### 2 505441 #### DEANNE Hematology Automated Subsection [address] [place] [address] Creatinine [Mass/Vol] 0.9 mg/dL Normal 0.5-1.3 [facility] Comment on above: Performed By: #### 2 487903 #### DEANNE Hematology Automated Subsection [address] [place] [address] Globulin (S) [Mass/Vol] 3.0 g/dL Normal 2.0-4.0 [facility] Comment on above: Performed By: #### 2 419377 #### DEANNE Hematology Automated Subsection [address] [place] [address] Glucose [Mass/Vol] 123 mg/dL High 70-99 [facility] Comment on above: Performed By: #### 2 [id number] #### DEANNE Hematology Automated Subsection [address] [place] [address] Potassium [Moles/Vol] 4.9 mmol/L Normal 3.5-5.3 [facility] Comment on above: Performed By: #### 2 050497 #### DEANNE Hematology Automated Subsection [address] [place] [address] Protein [Mass/Vol] 6.4 g/dL Normal 6.4-8.2 [facility] Comment on above: Performed By: #### 2 359842 #### DEANNE Hematology Automated Subsection [address] [place] [address] Sodium [Moles/Vol] 142 mmol/L Normal 136-145 [facility] Comment on above: Performed By: #### 2 [id number] #### DEANNE Hematology Automated Subsection [address] [place] [address] Urea nitrogen [Mass/Vol] 17 mg/dL Normal 6-23 [facility] Comment on above: Performed By: #### 2 503509 #### DEANNE Hematology Automated Subsection [address] [place] [address] Urea nitrogen/Creatinine [Mass ratio] 18.9 ratio Normal 5.4-30.0 [facility] Comment on above: Performed By: #### 2 363646 #### DEANNE Hematology Automated Subsection [address] [place] [address]48 Sed Rate Automatedon 019 Sed Rate Automated 32 mm/hr Normal [facility] Comment on above: Result Comment: AGE- SPECIFIC REFERENCE RANGES FOR SEDIMENTATION RATE AUTOMATED REFERENCE RANGE - MM/HR AGE MEN WOMEN 0-2 0-2 - PUBERTY 3-13 3-13 PUBERTY - 50 YRS 0-15 0-20 > 50 YRS 0-20 0-30 Performed By: #### 2 [id number] #### DEANNE Hematology Automated Subsection [facility] [place] [address]168[address] eGFRon 08-29-2018 GFR/1.73 sq M predicted among non-blacks MDRD (S/P/Bld) [Vol rate/Area] mL/min/{1.73_m2} Normal [facility] Comment on above: Order Comment: Order added by Discern Expert. Performed By: #### 2 [id number] #### DEANNE Hematology Automated Subsection [facility] [place] [address] XR Elbow Right 3+ Views (Sta ndard)on 07-29-2018 INR Coag RelTime (Bld) X-ray of the [facility] t elbow 3 views due to pain reveals an osteophyte of the lateral epicondyle otherwise no abnormalities [facility] XR Shoulder Right 2+ Views ( Standard)on 07-29-2018 INR Coag RelTime (Bld) X-ray of the [facility] t shoulder 3 views AP axillary Y scapular view obtained due to pain reveals moderate AC joint arthrosis otherwise no abnormalities [facility] CMPon 06-03-2018 Albumin [Mass/Vol] 4.0 g/dL Normal 3.4-5.0 [facility] Comment on above: Performed By: #### 1 [id number] #### DEANNE RemChem [address] [place] [address] Albumin/Globulin [Mass ratio] 1.7 {ratio} Normal 1.1-1.9 [facility] Comment on above: Performed By: #### 1 [id number] #### DEANNE RemChem [facility] [place] [address] Alk Phos 54 Int._Unit/L Normal 33-136 [facility] Comment on above: Performed By: #### 1 [id number] #### DEANNE RemChem [facility] [place] [address] ALT [Catalytic activity/Vol] 18 Int._Unit/L Normal 10-52 [facility] Comment on above: Performed By: #### 1 [id number] #### DEANNE RemChem [address] [place] [address] Anion gap [Moles/Vol] 8 mmol/L Low 10-20 [facility] Comment on above: Performed By: #### 1 [id number] #### DEANNE RemChem [address] [place] [address] AST [Catalytic activity/Vol] 14 Int._Unit/L Normal 9-39 [facility] Comment on above: Performed By: #### 1 [id number] #### DEANNE [facility] [address] [place] [address] Bili Total 0.43 mg/dL Normal 0.00-1.20 [facility] Comment on above: Performed By: #### 1 [id number] #### DEANNE [facility] [address] [place] [address] Calcium [Mass/Vol] 9.0 mg/dL Normal 8.6-10.3 [facility] Comment on above: Performed By: #### 1 [id number] #### DEANNE [facility] [address] [place] [address] Chloride [Moles/Vol] 108 mmol/L High 98-107 [facility] Comment on above: Performed By: #### 1 [id number] #### DEANNE RemChem [address] [place] [address] CO2 [Moles/Vol] 30.0 mmol/L Normal 21.0-32.0 [facility] Comment on above: Performed By: #### 1 [id number] #### DEANNE RemChem [address] [place] [address] Creatinine [Mass/Vol] 1.0 mg/dL Normal 0.5-1.3 [facility] Comment on above: Performed By: #### 1 [id number] #### DEANNE [facility] [address] [place] [address] Globulin (S) [Mass/Vol] 2.0 g/dL Normal 2.0-4.0 [facility] Comment on above: Performed By: #### 1 [id number] #### DEANNE [facility]Chem [address] [place] [address] Glucose [Mass/Vol] 121 mg/dL High 70-99 [facility] Comment on above: Performed By: #### 1 [id number] #### DEANNE SueChem [facility] [place] [address] Potassium [Moles/Vol] 4.5 mmol/L Normal 3.5-5.3 [facility] Comment on above: Performed By: #### 1 [id number] #### DEANNE SueChem [facility] [place] [address] Protein [Mass/Vol] 6.4 g/dL Normal 6.4-8.2 [facility] Comment on above: Performed By: #### 1 [id number] #### DEANNE SueCounterTack [address] [place] [address] Sodium [Moles/Vol] 141 mmol/L Normal 136-145 [facility] Comment on above: Performed By: #### 1 [id number] #### DEANNE SueCounterTack [address] [place] [address] Urea nitrogen [Mass/Vol] 25 mg/dL High 6-23 [facility] Comment on above: Performed By: #### 1 [id number] #### DEANNE Munroe [address] [place] [address] Urea nitrogen/Creatinine [Mass ratio] 25.0 ratio Normal 5.4-30.0 [facility] Comment on above: Performed By: #### 1 [id number] #### DEANNE SueChem [facility] [place] [address] [id number] 06-03-2018 HbA1c (Bld) [Mass fraction] 7.1 % High 4.0-6.3 [facility] Comment on above: Performed By: #### 1 [id number] #### DEANNE RemChem [address] [place] [address] Lipid Profileon 06-03-2018 Cholesterol [Mass/Vol] 140 mg/dL Normal 0-[address] [facility] Comment on above: Result Comment: TOTA L CHOLEESTEROL: <200 NORMAL 200 - 239 BORDERLINE HIGH >240 HIGH Performed By: #### 1 [id number] #### DEANNE [facility] [address] [place] [address] Cholesterol in HDL [Mass/Vol] 57 mg/dL Normal 40-60 [facility] Comment on above: Performed By: #### 1 [id number] #### DEANNE RemCounterTack [facility] [place] [address] Cholesterol in LDL [Mass/Vol] 72 mg/dL Normal 0-130 [facility] Comment on above: Result Comment: <100 OPTIMAL 100-129 NEAR / ABOVE OPTIMAL 130-159 BORDERLINE HIGH 160-189 HIGH >190 VERY HIGH CALC LDL NOT VALID WHEN TRIGLYCERIDE IS >400 MG/DL Performed By: #### 1 [id number] #### DEANNE RemCounterTack [facility] [place] [address] Cholesterol in VLDL [Mass/Vol] 11 mg/dL Normal 0-40 [facility] Comment on above: Performed By: #### 1 [id number] #### DEANNE RemCounterTack [address] [place] [address] Triglyceride [Mass/Vol] 54 mg/dL Normal 0-149 [facility] Comment on above: Result Comment: AGE DESIRABLE BORDERLINE HIGH 91 D - 9 Y 0 - 74 75 - 99 > 100 10 - 19 Y 0 - 89 90 - 129 > 130 20 -24 Y 0 - 114 115 - 149 > 150 > 25 0 - 149 150 - 199 200 - 499 Performed By: #### 1 [id number] #### DEANNE LinetteCounterTack [address] [place] [address] Microalb/Creat Ratioon 06-03 Creatinine [Mass/Vol] 35 ug/mg High 0-30 [facility] Comment on above: Performed By: #### 1 [id number] #### DEANNE RemCounterTack [address] [place] [address] Creatinine [Mass/Vol] 158.0 mg/dL Normal 20.0-300.[address] [facility] Comment on above: Performed By: #### 1 [id number] #### DEANNE RemChem [address] [place] [address] Ur Microalbumin 5.6 mg/dL High 0.0-1.9 [facility] Comment on above: Performed By: #### 1 [id number] #### DEANNE RemCounterTack [facility] [place] [address] eGFRon 06-03-2018 GFR/1.73 sq M predicted among non-blacks MDRD (S/P/Bld) [Vol rate/Area] mL/min/{1.73_m2} Normal [facility] Comment on above: Order Comment: Order added by Discern Expert. Performed By: #### 1 [id number] #### DEANNE SueChem [address] [place] [address] Auto Diffon 04-15-2018 Basophils (Bld) [#/Vol] 0.0 E3/mcL Normal 0.0-0.2 [facility] Comment on above: Order Comment: Order Added by Discern Expert. Performed By: #### 2 [id number] #### DEANNE RemHemo [address] [place] [address] Basophils/100 WBC (Bld) 0.5 % Normal 0.0-2.0 [facility] Comment on above: Order Comment: Order Added by Discern Expert. Performed By: #### 2 [id number] #### DEANNE RemHemo [address] [place] [address] Eos Absolute 0.3 E3/mcL Normal 0.0-0.7 [facility] Comment on above: Order Comment: Order Added by Discern Expert. Performed By: #### 2 [id number] #### DEANNE RemHemo [address] [place] [address] Eosinophils/100 WBC (Bld) 3.1 % Normal 0.0-11.0 [facility] Comment on above: Order Comment: Order Added by Discern Expert. Performed By: #### 2 [id number] #### DEANNE RemHemo [address] [place] [address] Lymphocytes (Bld) [#/Vol] 2.4 E3/mcL Normal 1.2-3.4 [facility] Comment on above: Order Comment: Order Added by Discern Expert. Performed By: #### 2 [id number] #### DEANNE [facility] [place] [address] Lymphocytes/100 WBC (Bld) 27.0 % Normal 20.0-55.0 [facility] Comment on above: Order Comment: Order Added by Discern Expert. Performed By: #### 2 [id number] #### DEANNE Sue[facility] [address] [place] [address] Antelope Absolute 0.6 E3/mcL Normal 0.0-0.7 [facility] Comment on above: Order Comment: Order Added by Discern Expert. Performed By: #### 2 [id number] #### DEANNE SueHemo [address] [place] [address] Monocytes/100 WBC (Bld) 6.8 % Normal 0.0-10.0 [facility] Comment on above: Order Comment: Order Added by Discern Expert. Performed By: #### 2 [id number] #### DEANNE SueHemo [address] [place] [address] Neutro Absolute 5.5 E3/mcL Normal 1.4-6.5 [facility] Comment on above: Order Comment: Order Added by Discern Expert. Performed By: #### 2 [id number] #### DEANNE SueHemo [address] [place], [place] [id number] Neutro Auto 62.6 % Normal 37.0-75.0 [facility] Comment on above: Order Comment: Order Added by Discern Expert. Performed By: #### 2 [id number] #### DEANNE SueHemo [address] [place] [address] CBC w/ Auto Diffon 8 Erythrocyte distribution width (RBC) [Ratio] 13.5 % Normal 11.5-14.5 [facility] Comment on above: Performed By: #### 2 [id number] #### DEANNE Sue[facility]emo [address] [place] [address] Hematocrit (Bld) [Volume fraction] 37.4 % Low 42.0-52.0 [facility] Comment on above: Performed By: #### 2 [id number] #### DEANNE SueHemo [address] [place] [address] Hemoglobin (Bld) [Mass/Vol] 12.3 g/dL Low 13.5-18.0 [facility] Comment on above: Performed By: #### 2 [id number] #### DEANNE SueHemo [address] [place] [address] MCH (RBC) [Entitic mass] 31.4 pg High 27.0-31.0 [facility] Comment on above: Performed By: #### 2 [id number] #### DEANNE Rem[facility] [address] [place] [address] MCHC (RBC) [Mass/Vol] 32.9 g/dL Low 33.0-37.0 [facility] Comment on above: Performed By: #### 2 [id number] #### DEANNE Rem[facility]emo [address] [place] [address] MCV (RBC) [Entitic vol] 95.4 fL Normal 78.0-100.0 [facility] Comment on above: Performed By: #### 2 [id number] #### DEANNE RemHemo [address] [place] [address] Platelet mean volume (Bld) [Entitic vol] 9.0 fL Normal 7.4-11.0 [facility] Comment on above: Performed By: #### 2 [id number] #### DEANNE Rem[facility]emo [address] [place] [address] Platelets (Bld) [#/Vol] 296 E3/mcL Normal 130-400 [facility] Comment on above: Performed By: #### 2 [id number] #### DEANNE Rem[facility] [address] [place] [address] RBC (Bld) [#/Vol] 3.92 E6/mcL Normal 3.90-6.10 [facility] Comment on above: Performed By: #### 2 [id number] #### DEANNE RemHemo [address] [place] [address] WBC (Bld) [#/Vol] 8.8 E3/mcL Normal 3.6-11.0 [facility] Comment on above: Performed By: #### 2 [id number] #### DEANNE Rem[facility]emo [address] [place] [address] CMPon 04-15-2018 Anion gap [Moles/Vol] 11 mmol/L Normal 6-16 [facility] Comment on above: Performed By: #### 2 [id number] #### DEANNE [employer] [address] [place] [address] Albumin [Mass/Vol] 3.9 g/dL Normal 3.4-5.0 [facility] Comment on above: Performed By: #### 2 [id number] #### [facility] [employer] [address] [place] [address] Albumin/Globulin [Mass ratio] 1.7 {ratio} Normal 1.1-1.9 [facility] Comment on above: Performed By: #### 2 455019 #### [facility] [employer] [address] [place] [address] Alk Phos 49 Normal 33-136 [facility] Comment on above: Performed By: #### 2 [id number] #### [facility] [employer] [address] [place] [address] ALT [Catalytic activity/Vol] 12 Int._Unit/L Normal 10-52 [facility] Comment on above: Performed By: #### 2 [id number] #### [facility] [employer] [address] [place] [address] AST [Catalytic activity/Vol] 12 Int._Unit/L Normal 9-39 [facility] Comment on above: Performed By: #### 2 [id number] #### [facility] [employer] [address] [place] [address] Bili Total 0.2 mg/dL Normal 0.0-1.2 [facility] Comment on above: Performed By: #### 2 815873 #### [facility] [employer] [address] [place] [address] Calcium [Mass/Vol] 9.3 mg/dL Normal 8.6-10.3 [facility] Comment on above: Performed By: #### 2 143476 #### [facility] [employer] [address] [place] [address] Chloride [Moles/Vol] 106 mmol/L Normal 98-107 [facility] Comment on above: Performed By: #### 2 357171 #### [facility] [employer] [address] [place] [address] CO2 [Moles/Vol] 27.0 mmol/L Normal 21.0-32.0 [facility] Comment on above: Performed By: #### 2 354475 #### [facility] [employer] [address] [place] [address] Creatinine [Mass/Vol] 0.8 mg/dL Normal 0.6-1.3 [facility] Comment on above: Performed By: #### 2 882968 #### DEANNE [employer] [address] [place] [address] Globulin (S) [Mass/Vol] 2.0 g/dL Normal 2.0-4.0 [facility] Comment on above: Performed By: #### 2 403137 #### DEANNE [employer] [address] [place] [address] Glucose [Mass/Vol] 114 mg/dL High 70-99 [facility] Comment on above: Performed By: #### 2 266644 #### DEANNE [employer] [address] [place] [address] Potassium [Moles/Vol] 4.4 mmol/L Normal 3.5-5.3 [facility] Comment on above: Performed By: #### 2 254021 #### DEANNE [employer] [address] [place] [address] Protein [Mass/Vol] 6.2 g/dL Low 6.4-8.2 [facility] Comment on above: Performed By: #### 2 165858 #### DEANNE [employer] [address] [place] [address] Sodium [Moles/Vol] 140 mmol/L Normal 136-145 [facility] Comment on above: Performed By: #### 2 837600 #### DEANNE [employer] [address] [place] [address] Urea nitrogen [Mass/Vol] 20 mg/dL Normal 6-23 [facility] Comment on above: Performed By: #### 2 896615 #### DEANNE [employer] [address] [place] [address] Urea nitrogen/Creatinine [Mass ratio] 25.0 ratio Normal 5.4-30.0 [facility] Comment on above: Performed By: #### 2 476626 #### DEANNE [employer] [address] [place] [address] Sed Rate Automatedon 10-15-2 018 Sed Rate Automated 31 mm/hr Normal [facility] Comment on above: Result Comment: AGE- SPECIFIC REFERENCE RANGES FOR SEDIMENTATION RATE AUTOMATED REFERENCE RANGE - MM/HR AGE MEN WOMEN 0-2 0-2 - PUBERTY 3-13 3-13 PUBERTY - 50 YRS 0-15 0-20 > 50 YRS 0-20 0-30 Performed By: #### 1 [id number] #### DEANNE [employer] [address] [place] [address] eGFRon 04-15-2018 GFR/1.73 sq M predicted among non-blacks MDRD (S/P/Bld) [Vol rate/Area] mL/min/{1.73_m2} Normal [facility] Comment on above: Order Comment: Order added by Discern Expert. Performed By: #### 1 [id number] #### DEANNE [employer] [address] [place] [address] POC Glucoseon 03-14-2018 Glucose mass conc 130 mg/dL High 65 - 99 mg/dL [facility] Interpretation and review of laboratory results Abnormal Invalid Interpretation Code DM [facility] Glucose mass conc 122 mg/dL High 65 - 99 mg/dL [facility] Interpretation and review of laboratory results Abnormal Invalid Interpretation Code DM POCT LAB Fluoroscopy Greater Than 1 H ouron 03-13-2018 This is an auto finalized result. Please refer to patient chart for further information. Invalid Interpretation Code [employer] [facility] POC Glucoseon 03-13-2018 Glucose mass conc 170 mg/dL High 65 - 99 mg/dL DM POCT LAB Interpretation and review of laboratory results Abnormal Invalid Interpretation Code DM POCT LAB Glucose mass conc 142 mg/dL High 65 - 99 mg/dL DM POCT LAB Interpretation and review of laboratory results Abnormal Invalid Interpretation Code DM POCT LAB Glucose mass conc 149 mg/dL High 65 - 99 mg/dL DM POCT LAB Interpretation and review of laboratory results Abnormal Invalid Interpretation Code DM POCT LAB Glucose mass conc 118 mg/dL High 65 - 99 mg/dL DM [facility] Interpretation and review of laboratory results Abnormal Invalid Interpretation Code DM POCT LAB XR FLUOROSCOPY GREATER THAN ONE HOURon 03-13-2018 XR FLUOROSCOPY GREATER THAN ONE HOUR This is an auto finalized result. Please refer to patient chart for further information. information. information. Normal [facility] Comment on above: Order Comment: Reaso n for exam?:ORInjury/Trauma or Illness?:Illness/OtherHow long have you had these symptoms (acute/chronic)?:UnknownType of Exam?:UnknownAdditional signs and symptoms?:unknownFluoro time in minutes:.4Fluoro dose in mGy?:14.5 Auto Diffon 03-01-2018 Basophils (Bld) [#/Vol] 0.1 E3/mcL Normal 0.0-0.2 [facility] Comment on above: Order Comment: Order Added by Discern Expert. Performed By: #### 2 [id number] #### DEANNE Rem[facility]emo [address] [place] [address] Basophils/100 WBC (Bld) 0.6 % Normal 0.0-2.0 [facility] Comment on above: Order Comment: Order Added by Discern Expert. Performed By: #### 2 307456 #### DEANNE Rem[facility] [address] [place] [address] Eos Absolute 0.3 E3/mcL Normal 0.0-0.7 [facility] Comment on above: Order Comment: Order Added by Discern Expert. Performed By: #### 2 106345 #### DEANNE [facility] [address] [place] [address] Eosinophils/100 WBC (Bld) 3.1 % Normal 0.0-11.0 [facility] Comment on above: Order Comment: Order Added by Discern Expert. Performed By: #### 2 167111 #### DEANNE Rem[facility]emo [address] [place] [address] Lymphocytes (Bld) [#/Vol] 2.6 E3/mcL Normal 1.2-3.4 [facility] Comment on above: Order Comment: Order Added by Discern Expert. Performed By: #### 2 910402 #### DEANNE Rem[facility]emo [address] [place] [address] Lymphocytes/100 WBC (Bld) 27.6 % Normal 20.0-55.0 [facility] Comment on above: Order Comment: Order Added by Discern Expert. Performed By: #### 2 763817 #### DEANNE Rem[facility]emo [address] [place] [address] Antelope Absolute 0.6 E3/mcL Normal 0.0-0.7 [facility] Comment on above: Order Comment: Order Added by Discern Expert. Performed By: #### 2 878008 #### DEANNE Rem[facility]emo [address] [place] [address] Monocytes/100 WBC (Bld) 5.8 % Normal 0.0-10.0 [facility] Comment on above: Order Comment: Order Added by Discern Expert. Performed By: #### 2 670014 #### DEANNE Rem[facility]emo [address] [place] [address] Neutro Absolute 6.0 E3/mcL Normal 1.4-6.5 [facility] Comment on above: Order Comment: Order Added by Discern Expert. Performed By: #### 2 829262 #### DEANNE Rem[facility]emo [address] [place] [address] Neutro Auto 62.9 % Normal 37.0-75.0 [facility] Comment on above: Order Comment: Order Added by Discern Expert. Performed By: #### 2 873097 #### DEANNE Rem[facility]emo [address] [place] [address] BMPon 03-01-2018 Calcium [Mass/Vol] 9.5 mg/dL Normal 8.4-10.2 [facility] Comment on above: Performed By: #### 2 909216 #### DEANNE [employer] [address] [place] [address] Chloride [Moles/Vol] 100 mmol/L Normal 98-107 [facility] Comment on above: Performed By: #### 2 163283 #### DEANNE [employer] [address] [place] [address] CO2 [Moles/Vol] 26.8 mmol/L Normal 24.0-30.0 [facility] Comment on above: Performed By: #### 2 615501 #### DEANNE [employer] [address] [place] [address] Creatinine [Mass/Vol] 1.2 mg/dL Normal 0.6-1.3 [facility] Comment on above: Performed By: #### 2 145331 #### DEANNE [employer] [address] [place] [address] Glucose [Mass/Vol] 153 mg/dL High 70-99 [facility] Comment on above: Performed By: #### 2 073984 #### DEANNE [employer] [address] [place] [address] Potassium [Moles/Vol] 4.5 mmol/L Normal 3.5-5.1 [facility] Comment on above: Performed By: #### 2 083242 #### DEANNE [employer] [address] [place] [address] Sodium [Moles/Vol] 135 mmol/L Low 136-145 [facility] Comment on above: Performed By: #### 2 804933 #### DEANNE [employer] [address] [place] [address] Urea nitrogen [Mass/Vol] 26 mg/dL High 7-18 [facility] Comment on above: Performed By: #### 2 384319 #### DEANNE [employer] [address] [place] [address] Urea nitrogen/Creatinine [Mass ratio] 21.7 ratio Normal 5.4-30.0 [facility] Comment on above: Performed By: #### 2 392340 #### DEANNE [employer] [address] [place] [address] CBC w/ Auto Diffon 8 Erythrocyte distribution width (RBC) [Ratio] 14.1 % Normal 11.5-14.5 [facility] Comment on above: Performed By: #### 2 245621 #### DEANNE Sue[facility]emo [address] [place] [address] Hematocrit (Bld) [Volume fraction] 40.7 % Low 42.0-52.0 [facility] Comment on above: Performed By: #### 2 064110 #### DEANNE Sue[facility]emo [address] [place] [address] Hemoglobin (Bld) [Mass/Vol] 13.2 g/dL Low 13.5-18.0 [facility] Comment on above: Performed By: #### 2 669786 #### DEANNE Sue[facility]emo [address] [place] [address] MCH (RBC) [Entitic mass] 31.4 pg High 27.0-31.0 [facility] Comment on above: Performed By: #### 2 034074 #### DEANNE [facility] [address] [place] [address] MCHC (RBC) [Mass/Vol] 32.5 g/dL Low 33.0-37.0 [facility] Comment on above: Performed By: #### 2 565344 #### DEANNE SueHemo [address] [place] [address] MCV (RBC) [Entitic vol] 96.7 fL Normal 78.0-100.0 [facility] Comment on above: Performed By: #### 2 711613 #### DEANNE Sue[facility]emo [facility] [place] [address] Platelet mean volume (Bld) [Entitic vol] 8.7 fL Normal 7.4-11.0 [facility] Comment on above: Performed By: #### 2 208921 #### DEANNE Sue[facility]emo [facility] [place] [address] Platelets (Bld) [#/Vol] 358 E3/mcL Normal 130-400 [facility] Comment on above: Performed By: #### 2 077483 #### DEANNE Sue[facility]emo [facility] [place] [address] RBC (Bld) [#/Vol] 4.21 E6/mcL Normal 3.90-6.10 [facility] Comment on above: Performed By: #### 2 608385 #### DEANNE Sue[facility]emo [facility] [place] [address] WBC (Bld) [#/Vol] 9.5 E3/mcL Normal 3.6-11.0 [facility] Comment on above: Performed By: #### 2 482465 #### DEANNE Sue[facility]emo [facility] [place] [address] PTon 03-01-2018 INR Coag (PPP) [Relative time] 1.0 {INR} Normal 1.0-1.2 [facility] Comment on above: Result Comment: INR Recommended Therapeuptic Ranges: Prophylaxis/treatment of DVT and PE?2.0-3.0 Prevention of systemic embolism?.2.0-3.0 Mechanical prosthetic values?2.5-3.5 CRITICAL VALUES?.>4.0 Performed By: #### 2 [id number] #### DEANNE [facility] [facility] [place] [address] PT Coag (PPP) [Time] 12.6 second(s) Normal 11.6-14.6 [facility] Comment on above: Performed By: #### 2 [id number] #### DEANNE [employer] [address] [place] [address] PTTon 03-01-2018 aPTT Coag (Bld) [Time] 29.3 second(s) Normal 23.2-36.4 [facility] Comment on above: Performed By: #### 2 [id number] #### DEANNE [employer] [employer] [address] [place] [address] PTT Control Ratioon 03-01-20 18 PTT Ratio 1.0 ratio Normal 0.8-1.2 [facility] Comment on above: Order Comment: Order added by Discern Expert. Performed By: #### 8 [id number] #### DEANNE [facility] [employer] [address] [place] [address] eGFRon 03-01-2018 GFR/1.73 sq M predicted among non-blacks MDRD (S/P/Bld) [Vol rate/Area] mL/min/{1.73_m2} Normal [facility] Comment on above: Order Comment: Order added by Discern Expert. Performed By: #### 1 [id number] #### DEANNE [employer] [address] [place] [address] GFR/1.73 sq M predicted among non-blacks MDRD (S/P/Bld) [Vol rate/Area] 59 mL/min/1.73 m2 Normal [facility] Comment on above: Order Comment: Order added by Discern Expert. Performed By: #### 1 [id number] #### DEANNE [employer] [address] [place] [address] SCAN OTHER ORDERSon 02-28-20 18 Ordered by an unspecified provider. Invalid Interpretation Code [facility] Vital Signs Date Time Vital Sign Value Performing Clinician Facility 05-01-2025 09:08-0400 Body height 188 cm Tye Anne MD Work Phone: [facility] 05-01-2025 09:08-0400 Body mass index (BMI) [Ratio] 29.53 kg/m2 Tye Anne MD Work Phone: [facility] 05-01-2025 09:08-0400 Body weight 104.33 kg Tye Anne MD Work Phone: [facility] 05-01-2025 09:08-0400 Diastolic blood pressure 60 mm[Hg] Tye Anne MD Work Phone: [facility] 05-01-2025 09:08-0400 Heart rate 60 /min Tye Anne MD Work Phone: [facility] 05-01-2025 09:08-0400 SaO2% (BldA) [Mass fraction] 100 % Tye Anne MD Work Phone: [facility] 05-01-2025 09:08-0400 Systolic blood pressure 110 mm[Hg] Tye Anne MD Work Phone: [facility] 04-27-2025 08:30-0400 Body height 188 cm Nayeli Flores RECORDS MANAGEMENT CLERK-BUTCHER HELPER Work Phone: [facility] 04-27-2025 08:30-0400 Body mass index (BMI) [Ratio] 29.48 kg/m2 Nayeli Flores RECORDS MANAGEMENT CLERK-BUTCHER HELPER Work Phone: [facility] 04-27-2025 08:30-0400 Body weight 104.15 kg Nayeli Flores APRN-BUTCHER HELPER Work Phone: [facility] 04-27-2025 08:30-0400 Diastolic blood pressure 62 mm[Hg] Nayeli Flores RECORDS MANAGEMENT CLERK-BUTCHER HELPER Work Phone: [facility] 04-27-2025 08:30-0400 Heart rate 73 /min Nayeli Flores APRN-BUTCHER HELPER Work Phone: [facility] 04-27-2025 08:30-0400 Respiratory rate 18 /min Nayelijack Pachecoley RECORDS MANAGEMENT CLERK-BUTCHER HELPER Work Phone: [facility] 04-27-2025 08:30-0400 SaO2% (BldA) [Mass fraction] 93 % Nayeli Pachecoley RECORDS MANAGEMENT CLERK-BUTCHER HELPER Work Phone: [facility] 04-27-2025 08:30-0400 Systolic blood pressure 115 mm[Hg] Nayelijack Pachecoley RECORDS MANAGEMENT CLERK-BUTCHER HELPER Work Phone: [facility] 04-16-2025 10:12-0400 Body height 188 cm Octavio Marmolejo RECORDS MANAGEMENT CLERK-BUTCHER HELPER Work Phone: [facility] 04-16-2025 10:12-0400 Body mass index (BMI) [Ratio] 28.76 kg/m2 Octavio Marmolejo RECORDS MANAGEMENT CLERK-BUTCHER HELPER Work Phone: [facility] 04-16-2025 10:12-0400 Body weight 101.61 kg Octavio Marmolejo RECORDS MANAGEMENT CLERK-BUTCHER HELPER Work Phone: [facility] 04-16-2025 10:12-0400 Diastolic blood pressure 80 mm[Hg] Octavio Marmolejo RECORDS MANAGEMENT CLERK-BUTCHER HELPER Work Phone: [facility] 04-16-2025 10:12-0400 Heart rate 72 /min Octavio Marmolejo RECORDS MANAGEMENT CLERK-BUTCHER HELPER Work Phone: [facility] 04-16-2025 10:12-0400 SaO2% (BldA) [Mass fraction] 93 % Octavio Marmolejo RECORDS MANAGEMENT CLERK-BUTCHER HELPER Work Phone: [facility] 04-16-2025 10:12-0400 Systolic blood pressure 132 mm[Hg] Octavio Marmolejo RECORDS MANAGEMENT CLERK-BUTCHER HELPER Work Phone: [facility] 03-12-2025 09:40-0400 Body height 187.[address] Santi Anne MD Work Phone: [facility] 03-12-2025 09:40-0400 Body mass index (BMI) [Ratio] 28.3 kg/m2 Dr. Santi Anne MD Work Phone: [facility] 03-12-2025 09:40-0400 Body temperature 97.8 [degF] Dr. Santi Anne MD Work Phone: [facility] 03-12-2025 09:40-0400 Body weight 100.[address] Santi Anne MD Work Phone: [facility] 03-12-2025 09:40-0400 Diastolic blood pressure 77 mm[Hg] Dr. Santi Anne MD Work Phone: [facility] 03-12-2025 09:40-0400 Heart rate 76 /min Dr. Santi Anne MD Work Phone: [facility] 03-12-2025 09:40-0400 Respiratory rate 18 /min Dr. Santi Anne MD Work Phone: [facility] 03-12-2025 09:40-0400 SaO2% (BldA) [Mass fraction] 95 % Dr. Santi Anne MD Work Phone: [facility] 03-12-2025 09:40-0400 Systolic blood pressure 138 mm[Hg] Dr. Santi Anne MD Work Phone: [facility] 03-04-2025 08:11-0400 Body temperature 98.2 [degF] Chintan Maldonado Jr. DPM Work Phone: [facility] 03-04-2025 08:11-0400 Diastolic blood pressure 63 mm[Hg] Chintan Maldonado Jr. DPM Work Phone: [facility] 03-04-2025 08:11-0400 Heart rate 71 /min Chintan Maldonado Jr., DPM Work Phone: [facility] 03-04-2025 08:11-0400 Systolic blood pressure 114 mm[Hg] Chintan Maldonado Jr. DPM Work Phone: [facility] 02-06-2025 13:52-0400 Body temperature 98.01 [degF] Chintan Acostabooker Arce, DPM Work Phone: [facility] 02-06-2025 13:52-0400 Diastolic blood pressure 83 mm[Hg] Chintan Acostabooker Arce, DPM Work Phone: [facility] 02-06-2025 13:52-0400 Heart rate 81 /min Chintan Acostabooker Arce, DPM Work Phone: [facility] 02-06-2025 13:52-0400 Systolic blood pressure 152 mm[Hg] Chintan Acostabooker Arce, DPM Work Phone: [facility] 01-29-2025 09:05-0400 Body height 188 cm Tye Anne MD Work Phone: [facility] 01-29-2025 09:05-0400 Body mass index (BMI) [Ratio] 28.12 kg/m2 Tye Anne MD Work Phone: [facility] 01-29-2025 09:05-0400 Body weight 99.34 kg Tye Anne MD Work Phone: [facility] 01-29-2025 09:05-0400 Diastolic blood pressure 70 mm[Hg] Tye Anne MD Work Phone: [facility] 01-29-2025 09:05-0400 Heart rate 74 /min Tye Anne MD Work Phone: [facility] 01-29-2025 09:05-0400 SaO2% (BldA) [Mass fraction] 97 % Tye Anne MD Work Phone: [facility] 01-29-2025 09:05-0400 Systolic blood pressure 122 mm[Hg] Tye Anne MD Work Phone: [facility] 01-26-2025 08:29-0400 Body mass index (BMI) [Ratio] 27.28 kg/m2 Herman Naidu MD Work Phone: [facility] 01-26-2025 08:29-0400 Body weight 96.39 kg Herman Naidu MD Work Phone: [facility] 01-26-2025 08:29-0400 Diastolic blood pressure 74 mm[Hg] Herman Naidu MD Work Phone: [facility] 01-26-2025 08:29-0400 Heart rate 74 /min Herman Naidu MD Work Phone: [facility] 01-26-2025 08:29-0400 Systolic blood pressure 113 mm[Hg] Herman Naidu MD Work Phone: [facility] 01-15-2025 11:21-0400 Body height 188 cm Aravind Jimenez MD Work Phone: [facility] 01-15-2025 11:21-0400 Body mass index (BMI) [Ratio] 27.86 kg/m2 Aravind Jimenez MD Work Phone: [facility] 01-15-2025 11:21-0400 Body weight 98.43 kg Aravind Jimenez MD Work Phone: [facility] 01-15-2025 11:21-0400 Diastolic blood pressure 66 mm[Hg] Aravind Jimenez MD Work Phone: [facility] 01-15-2025 11:21-0400 Heart rate 70 /min Aravind Jimenez MD Work Phone: [facility] 01-15-2025 11:21-0400 SaO2% (BldA) [Mass fraction] 96 % Aravind Jimenez MD Work Phone: [facility] 01-15-2025 11:21-0400 Systolic blood pressure 122 mm[Hg] Aravind Jimenez MD Work Phone: [facility] 12-26-2024 15:00-0400 Body height 188 cm Tye Anne MD Work Phone: [facility] 12-26-2024 15:00-0400 Body mass index (BMI) [Ratio] 28.02 kg/m2 Tye Anne MD Work Phone: [facility] 12-26-2024 15:00-0400 Body weight 98.97 kg Tye Anne MD Work Phone: [facility] 12-26-2024 15:00-0400 Diastolic blood pressure 70 mm[Hg] Tye Anne MD Work Phone: [facility] 12-26-2024 15:00-0400 Heart rate 68 /min Tye Anne MD Work Phone: [facility] 12-26-2024 15:00-0400 SaO2% (BldA) [Mass fraction] 97 % Tye Anne MD Work Phone: [facility] 12-26-2024 15:00-0400 Systolic blood pressure 122 mm[Hg] Tye Anne MD Work Phone: [facility] 12-17-2024 15:49-0400 Diastolic blood pressure 58 mm[Hg] Sammy Lemasters DO Work Phone: [facility] 12-17-2024 15:49-0400 Heart rate 72 /min Sammy Lemasters DO Work Phone: [facility] 12-17-2024 15:49-0400 Systolic blood pressure 126 mm[Hg] Sammy Lemasters DO Work Phone: [facility] 12-17-2024 14:29-0400 Respiratory rate 22 /min Sammy Lemasters DO Work Phone: [facility] 12-17-2024 14:29-0400 SaO2% (BldA) [Mass fraction] 98 % Sammy Lemasters DO Work Phone: [facility] 12-17-2024 13:04-0400 Body height 188 cm Sammy Andrew DO Work Phone: [facility] 12-17-2024 13:04-0400 Body mass index (BMI) [Ratio] 26.96 kg/m2 Sammy Andrew DO Work Phone: [facility] 12-17-2024 13:04-0400 Body temperature 97.9 [degF] Sammy Andrew DO Work Phone: [facility] 12-17-2024 13:04-0400 Body weight 95.25 kg Sammy Andrew DO Work Phone: [facility] 12-17-2024 11:53-0400 Body height 188 cm Urmila Galloway RECORDS MANAGEMENT CLERK-BUTCHER HELPER Work Phone: [facility] 12-17-2024 11:53-0400 Body mass index (BMI) [Ratio] 26.83 kg/m2 Urmila Galloway RECORDS MANAGEMENT CLERK-BUTCHER HELPER Work Phone: [facility] 12-17-2024 11:53-0400 Body temperature 96.3 [degF] Urmila Galloway RECORDS MANAGEMENT CLERK-BUTCHER HELPER Work Phone: [facility] 12-17-2024 11:53-0400 Body weight 94.8 kg Urmila Galloway RECORDS MANAGEMENT CLERK-BUTCHER HELPER Work Phone: [facility] 12-17-2024 11:53-0400 Diastolic blood pressure 72 mm[Hg] Urmila Galloway RECORDS MANAGEMENT CLERK-BUTCHER HELPER Work Phone: [facility] 12-17-2024 11:53-0400 Heart rate 84 /min Urmila Galloway RECORDS MANAGEMENT CLERK-BUTCHER HELPER Work Phone: [facility] 12-17-2024 11:53-0400 SaO2% (BldA) [Mass fraction] 97 % Urmila Galloway RECORDS MANAGEMENT CLERK-BUTCHER HELPER Work Phone: [facility] 12-17-2024 11:53-0400 Systolic blood pressure 116 mm[Hg] Urmila Galloway RECORDS MANAGEMENT CLERK-BUTCHER HELPER Work Phone: [facility] 12-03-2024 08:03-0400 Body temperature 98.01 [degF] Chintan Maldonado Jr., DPM Work Phone: [facility] 12-03-2024 08:03-0400 Diastolic blood pressure 67 mm[Hg] Chintan Maldonado Jr., DPM Work Phone: [facility] 12-03-2024 08:03-0400 Heart rate 79 /min Chintan Madlonado Jr., DPM Work Phone: [facility] 12-03-2024 08:03-0400 Systolic blood pressure 127 mm[Hg] Chintan Maldonado Jr., DPM Work Phone: [facility] 11-25-2024 13:30-0400 Body height 188 cm Urmila Laverne RECORDS MANAGEMENT CLERK-BUTCHER HELPER Work Phone: [facility] 11-25-2024 13:30-0400 Body mass index (BMI) [Ratio] 29.53 kg/m2 Urmilamike Weldoney RECORDS MANAGEMENT CLERK-BUTCHER HELPER Work Phone: [facility] 11-25-2024 13:30-0400 Body temperature 97.9 [degF] Urmila Laverne RECORDS MANAGEMENT CLERK-BUTCHER HELPER Work Phone: [facility] 11-25-2024 13:30-0400 Body weight 104.33 kg Urmila Galloway RECORDS MANAGEMENT CLERK-BUTCHER HELPER Work Phone: [facility] 11-25-2024 13:30-0400 Diastolic blood pressure 74 mm[Hg] Urimla Galloway RECORDS MANAGEMENT CLERK-BUTCHER HELPER Work Phone: [facility] 11-25-2024 13:30-0400 Heart rate 79 /min Urmila Galloway RECORDS MANAGEMENT CLERK-BUTCHER HELPER Work Phone: [facility] 11-25-2024 13:30-0400 Respiratory rate 16 /min Urmila Galloway RECORDS MANAGEMENT CLERK-BUTCHER HELPER Work Phone: [facility] 11-25-2024 13:30-0400 SaO2% (BldA) [Mass fraction] 96 % Urmila Galloway RECORDS MANAGEMENT CLERK-BUTCHER HELPER Work Phone: [facility] 11-25-2024 13:30-0400 Systolic blood pressure 128 mm[Hg] Urmila Galloway RECORDS MANAGEMENT CLERK-BUTCHER HELPER Work Phone: [facility] 11-11-2024 10:15-0400 Body height 188 cm Aravind Jimenez MD Work Phone: [facility] 11-11-2024 10:15-0400 Body mass index (BMI) [Ratio] 27.35 kg/m2 Aravind Jimenez MD Work Phone: [facility] 11-11-2024 10:15-0400 Body weight 96.62 kg Aravind Jimenez MD Work Phone: [facility] 11-11-2024 10:15-0400 Diastolic blood pressure 66 mm[Hg] Aravind Jimenez MD Work Phone: [facility] 11-11-2024 10:15-0400 Heart rate 68 /min Aravind Jimenez MD Work Phone: [facility] 11-11-2024 10:15-0400 SaO2% (BldA) [Mass fraction] 97 % Aravind Jimenez MD Work Phone: [facility] 11-11-2024 10:15-0400 Systolic blood pressure 122 mm[Hg] Aravind Jimenez MD Work Phone: [facility] 11-06-2024 10:08-0400 Body height 188 cm Tye Anne MD Work Phone: [facility] 11-06-2024 10:08-0400 Body mass index (BMI) [Ratio] 27.68 kg/m2 Tye Anne MD Work Phone: [facility] 11-06-2024 10:08-0400 Body weight 97.8 kg Tye Anne MD Work Phone: [facility] 11-06-2024 10:08-0400 Diastolic blood pressure 70 mm[Hg] Tye Anne MD Work Phone: [facility] 11-06-2024 10:08-0400 Heart rate 70 /min Tye Anne MD Work Phone: [facility] 11-06-2024 10:08-0400 SaO2% (BldA) [Mass fraction] 96 % Tye Anne MD Work Phone: [facility] 11-06-2024 10:08-0400 Systolic blood pressure 110 mm[Hg] Tye Anne MD Work Phone: [facility] 10-29-2024 11:37-0400 Body height 188 cm Tye Anne MD Work Phone: [phone] [place] [address] 10-29-2024 11:37-0400 Body mass index (BMI) [Ratio] 27.19 kg/m2 Tye Anne MD Work Phone: [facility] 10-29-2024 11:37-0400 Body weight 96.07 kg Tye Anne MD Work Phone: [facility] 10-29-2024 11:37-0400 Diastolic blood pressure 80 mm[Hg] Tye Anne MD Work Phone: [facility] 10-29-2024 11:37-0400 Heart rate 85 /min Tye Anne MD Work Phone: [facility] 10-29-2024 11:37-0400 SaO2% (BldA) [Mass fraction] 98 % Tye Anne MD Work Phone: [facility] 10-29-2024 11:37-0400 Systolic blood pressure 108 mm[Hg] Tye Anne MD Work Phone: [phone] [place] [address] 10-08-2024 10:16-0400 Body temperature 98.6 [degF] Aravind Jimenez MD Work Phone: [facility] 10-08-2024 10:16-0400 Diastolic blood pressure 79 mm[Hg] Aravind Jimenez MD Work Phone: [facility] 10-08-2024 10:16-0400 Heart rate 75 /min Aravind Jimenez MD Work Phone: [facility] 10-08-2024 10:16-0400 Respiratory rate 18 /min Aravind Jimenez MD Work Phone: [facility] 10-08-2024 10:16-0400 SaO2% (BldA) [Mass fraction] 96 % Aravind Jimenez MD Work Phone: [facility] 10-08-2024 10:16-0400 Systolic blood pressure 114 mm[Hg] Aravind Jimenez MD Work Phone: [facility] 10-08-2024 01:35-0400 Body mass index (BMI) [Ratio] 27.14 kg/m2 Aravind Jimenez MD Work Phone: [facility] 10-08-2024 01:35-0400 Body weight 95.89 kg Aravind Jimenez MD Work Phone: [facility] 09-26-2024 07:11-0400 Body height 188 cm Aravind Jimenez MD Work Phone: [facility] 09-18-2024 13:43-0400 Body height 188 cm Tye Anne MD Work Phone: [facility] 09-18-2024 13:43-0400 Body mass index (BMI) [Ratio] 29.74 kg/m2 Tye Anne MD Work Phone: [facility] 09-18-2024 13:43-0400 Body weight 105.05 kg Tye Anne MD Work Phone: [facility] 09-18-2024 13:43-0400 Diastolic blood pressure 70 mm[Hg] Tye Anne MD Work Phone: [facility] 09-18-2024 13:43-0400 Heart rate 67 /min Tye Anne MD Work Phone: [facility] 09-18-2024 13:43-0400 SaO2% (BldA) [Mass fraction] 97 % Tye Anne MD Work Phone: [facility] 09-18-2024 13:43-0400 Systolic blood pressure 130 mm[Hg] Tye Anne MD Work Phone: [facility] 09-12-2024 10:31-0400 Diastolic blood pressure 68 mm[Hg] [address] 09-12-2024 10:31-0400 Heart rate 59 /min [address] 09-12-2024 10:31-0400 Respiratory rate 18 /min [address] 09-12-2024 10:31-0400 SaO2% (BldA) [Mass fraction] 98 % [address] 09-12-2024 10:31-0400 Systolic blood pressure 118 mm[Hg] [address] 09-12-2024 10:05-0400 Body temperature 97.5 [degF] [address] 09-12-2024 09:29-0400 Body height [address] 09-12-2024 09:29-0400 Body mass index (BMI) [Ratio] 28.12 kg/m2 [address] 09-12-2024 09:29-0400 Body weight 99.[address] 09-10-2024 11:30-0400 Diastolic blood pressure 72 mm[Hg] Herman Naidu MD Work Phone: [facility] 09-10-2024 11:30-0400 Heart rate 64 /min Herman Naidu MD Work Phone: [facility] 09-10-2024 11:30-0400 Systolic blood pressure 128 mm[Hg] Herman Naidu MD Work Phone: [facility] 09-10-2024 11:29-0400 Body mass index (BMI) [Ratio] 28.76 kg/m2 Herman Naidu MD Work Phone: [facility] 09-10-2024 11:29-0400 Body weight 101.61 kg Herman Naidu MD Work Phone: [facility] 09-03-2024 08:08-0500 Body temperature 97.9 [degF] Chintan Maldonado Jr., DPM Work Phone: [facility] 09-03-2024 08:08-0500 Diastolic blood pressure 72 mm[Hg] Chintan Maldonado Jr., DPM Work Phone: [facility] 09-03-2024 08:08-0500 Heart rate 64 /min Chintan Maldonado Jr., DPM Work Phone: [facility] 09-03-2024 08:08-0500 Systolic blood pressure 144 mm[Hg] Chintan Maldonado Jr., DPM Work Phone: [facility] 08-20-2024 10:16-0500 Body mass index (BMI) [Ratio] 29.4 kg/m2 Reggie Aragon PA-C Work Phone: [facility] 08-20-2024 10:16-0500 Body weight 103.87 kg Reggie Aragon PA-C Work Phone: [facility] 08-20-2024 10:16-0500 Diastolic blood pressure 80 mm[Hg] Reggie Aragon PA-C Work Phone: [facility] 08-20-2024 10:16-0500 Heart rate 74 /min Reggie Aragon PA-C Work Phone: [facility] 08-20-2024 10:16-0500 Respiratory rate 16 /min Reggiealex Aragon PA-C Work Phone: [facility] 08-20-2024 10:16-0500 Systolic blood pressure 127 mm[Hg] Reggie Aragon PA-C Work Phone: [facility] 08-13-2024 07:40-0500 Body temperature 97.5 [degF] Aravind Jimenez MD Work Phone: [facility] 08-13-2024 07:40-0500 Diastolic blood pressure 80 mm[Hg] Aravind Jimenez MD Work Phone: [facility] 08-13-2024 07:40-0500 Heart rate 74 /min Aravind Jimenez MD Work Phone: [facility] 08-13-2024 07:40-0500 Respiratory rate 16 /min Aravind Jimenez MD Work Phone: [facility] 08-13-2024 07:40-0500 SaO2% (BldA) [Mass fraction] 98 % Aravind Jimenez MD Work Phone: [facility] 08-13-2024 07:40-0500 Systolic blood pressure 140 mm[Hg] Aravind Jimenez MD Work Phone: [facility] 08-13-2024 07:18-0500 Body height 188 cm Aravind Jimenez MD Work Phone: [facility] 08-13-2024 07:18-0500 Body mass index (BMI) [Ratio] 29.3 kg/m2 Aravind Jimenez MD Work Phone: [facility] 08-13-2024 07:18-0500 Body weight 103.5 kg Aravind Jimenez MD Work Phone: [facility] 07-28-2024 08:43-0500 Body height 188 cm Octavio DELGADO Work Phone: [facility] 07-28-2024 08:43-0500 Body mass index (BMI) [Ratio] 29.99 kg/m2 Octavio Magdiel RECORDS MANAGEMENT CLERK-BUTCHER HELPER Work Phone: [facility] 07-28-2024 08:43-0500 Body weight 105.96 kg Octavio Marmolejo APRN-BUTCHER HELPER Work Phone: [facility] 07-28-2024 08:43-0500 Diastolic blood pressure 52 mm[Hg] Octavio Marmolejo APRN-BUTCHER HELPER Work Phone: [facility] 07-28-2024 08:43-0500 Heart rate 58 /min Octavio Marmolejo RECORDS MANAGEMENT CLERK-BUTCHER HELPER Work Phone: [facility] 07-28-2024 08:43-0500 SaO2% (BldA) [Mass fraction] 91 % Octavio Marmolejo RECORDS MANAGEMENT CLERK-BUTCHER HELPER Work Phone: [facility] 07-28-2024 08:43-0500 Systolic blood pressure 112 mm[Hg] Octavio Marmolejo APRN-BUTCHER HELPER Work Phone: [facility] 07-17-2024 09:50-0500 Body mass index (BMI) [Ratio] 30.17 kg/m2 Reggie Aragon PA-C Work Phone: [facility] 07-17-2024 09:50-0500 Body weight 106.59 kg Reggie Aragon PA-C Work Phone: [facility] 07-17-2024 09:50-0500 Diastolic blood pressure 75 mm[Hg] Reggie Aragon PA-C Work Phone: [facility] 07-17-2024 09:50-0500 Heart rate 77 /min Reggie Aragon PA-C Work Phone: [facility] 07-17-2024 09:50-0500 Respiratory rate 16 /min Reggie Aragon PA-C Work Phone: [facility] 07-17-2024 09:50-0500 Systolic blood pressure 124 mm[Hg] Reggie Aragon PA-C Work Phone: [facility] 07-16-2024 09:46-0500 Body mass index (BMI) [Ratio] 30.1 kg/m2 Monty Julien BUTCHER HELPER Work Phone: [facility] 07-16-2024 09:46-0500 Body weight 106.32 kg Monty Julien BUTCHER HELPER Work Phone: [facility] 07-16-2024 09:46-0500 Diastolic blood pressure 76 mm[Hg] Monty Julien BUTCHER HELPER Work Phone: [facility] 07-16-2024 09:46-0500 Systolic blood pressure 120 mm[Hg] Monty Julien BUTCHER HELPER Work Phone: [facility] 07-03-2024 11:23-0500 Body height 188 cm Tye Anne MD Work Phone: [facility] 07-03-2024 11:23-0500 Body mass index (BMI) [Ratio] 29.61 kg/m2 Tye Anne MD Work Phone: [facility] 07-03-2024 11:23-0500 Body weight 104.6 kg Tye Anne MD Work Phone: [facility] 07-03-2024 11:23-0500 Diastolic blood pressure 70 mm[Hg] Tye Anne MD Work Phone: [facility] 07-03-2024 11:23-0500 Heart rate 66 /min Tye Anne MD Work Phone: [facility] 07-03-2024 11:23-0500 SaO2% (BldA) [Mass fraction] 97 % Tye Anne MD Work Phone: [facility] 07-03-2024 11:23-0500 Systolic blood pressure 118 mm[Hg] Tye Anne MD Work Phone: [facility] 06-12-2024 15:00-0500 Diastolic blood pressure 93 mm[Hg] Robbin Flores MD Work Phone: [facility] 06-12-2024 15:00-0500 Heart rate 60 /min Robbin Flores MD Work Phone: [facility] 06-12-2024 15:00-0500 SaO2% (BldA) [Mass fraction] 94 % Robbin Flores MD Work Phone: [facility] 06-12-2024 15:00-0500 Systolic blood pressure 149 mm[Hg] Robbin Flores MD Work Phone: [facility] 06-12-2024 12:28-0500 Body height 188 cm Robbin Flores MD Work Phone: [facility] 06-12-2024 12:28-0500 Body mass index (BMI) [Ratio] 30.17 kg/m2 Robbin Flores MD Work Phone: [facility] 06-12-2024 12:28-0500 Body temperature 97.81 [degF] Robbin Flores MD Work Phone: [facility] 06-12-2024 12:28-0500 Body weight 106.59 kg Robbin Flores MD Work Phone: [facility] 06-12-2024 11:33-0500 Body height 188 cm Sole Cassidy RECORDS MANAGEMENT CLERK-BUTCHER HELPER Work Phone: [facility] 06-12-2024 11:33-0500 Body mass index (BMI) [Ratio] 30.17 kg/m2 Sole Cassidy RECORDS MANAGEMENT CLERK-BUTCHER HELPER Work Phone: [facility] 06-12-2024 11:33-0500 Body temperature 97.81 [degF] Sole Cassidy RECORDS MANAGEMENT CLERK-BUTCHER HELPER Work Phone: [facility] 06-12-2024 11:33-0500 Body weight 106.59 kg Sole Cassidy RECORDS MANAGEMENT CLERK-BUTCHER HELPER Work Phone: [facility] 06-12-2024 11:33-0500 Diastolic blood pressure 74 mm[Hg] Sole Cassidy RECORDS MANAGEMENT CLERK-BUTCHER HELPER Work Phone: [facility] 06-12-2024 11:33-0500 Heart rate 66 /min Sole Raineyta RECORDS MANAGEMENT CLERK-BUTCHER HELPER Work Phone: [facility] 06-12-2024 11:33-0500 Respiratory rate 16 /min Sole Khanh RECORDS MANAGEMENT CLERK-BUTCHER HELPER Work Phone: [facility] 06-12-2024 11:33-0500 SaO2% (BldA) [Mass fraction] 96 % Sole Khanh RECORDS MANAGEMENT CLERK-BUTCHER HELPER Work Phone: [facility] 06-12-2024 11:33-0500 Systolic blood pressure 124 mm[Hg] Sole Khanh RECORDS MANAGEMENT CLERK-BUTCHER HELPER Work Phone: [facility] 06-04-2024 08:24-0500 Diastolic blood pressure 61 mm[Hg] Chintan Maldonado Jr., DPM Work Phone: [facility] 06-04-2024 08:24-0500 Heart rate 69 /min Chintan Maldonado Jr., DPM Work Phone: [facility] 06-04-2024 08:24-0500 Systolic blood pressure 114 mm[Hg] Chintan Maldonado Jr., DPM Work Phone: [facility] 06-04-2024 08:18-0500 Body temperature 96.69 [degF] Chintan Maldonado Jr., DPM Work Phone: [facility] 05-28-2024 13:16-0500 Diastolic blood pressure 58 mm[Hg] [address] 05-28-2024 13:16-0500 Heart rate 59 /min [address] 05-28-2024 13:16-0500 Respiratory rate 17 /min [address] 05-28-2024 13:16-0500 SaO2% (BldA) [Mass fraction] 96 % [address] 05-28-2024 13:16-0500 Systolic blood pressure 125 mm[Hg] [address] 05-28-2024 12:54-0500 Body temperature 98.1 [degF] [address] 05-28-2024 12:20-0500 Body height [address] 05-28-2024 12:20-0500 Body mass index (BMI) [Ratio] 29.92 kg/m2 [address] 05-28-2024 12:20-0500 Body weight 105.[address] 05-27-2024 10:00-0500 Body height 188 cm Aravind Jimenez MD Work Phone: [facility] 05-27-2024 10:00-0500 Body mass index (BMI) [Ratio] 29.93 kg/m2 Aravind Jimenez MD Work Phone: [facility] 05-27-2024 10:00-0500 Body weight 105.73 kg Aravind Jimenez MD Work Phone: [facility] 05-27-2024 10:00-0500 Diastolic blood pressure 62 mm[Hg] Aravind Jimenez MD Work Phone: [facility] 05-27-2024 10:00-0500 Heart rate 62 /min Aravind Jimenez MD Work Phone: [facility] 05-27-2024 10:00-0500 SaO2% (BldA) [Mass fraction] 98 % Aravind Jimenez MD Work Phone: [facility] 05-27-2024 10:00-0500 Systolic blood pressure 100 mm[Hg] Aravind Jimenez MD Work Phone: [facility] 05-09-2024 09:13-0500 Body height 188 cm Tye Anne MD Work Phone: [facility] 05-09-2024 09:13-0500 Body mass index (BMI) [Ratio] 31.02 kg/m2 Tye Anne MD Work Phone: [facility] 05-09-2024 09:13-0500 Body weight 109.59 kg Tye Anne MD Work Phone: [facility] 05-09-2024 09:130500 Diastolic blood pressure 70 mm[Hg] Tye Anne MD Work Phone: [facility] 05-09-2024 09:13-0500 Heart rate 80 /min Tye Anne MD Work Phone: [facility] 05-09-2024 09:13-0500 SaO2% (BldA) [Mass fraction] 98 % Tye Anne MD Work Phone: [facility] 05-09-2024 09:130500 Systolic blood pressure 140 mm[Hg] Tye Anne MD Work Phone: [facility] 05-01-2024 10:18-0400 Diastolic blood pressure 73 mm[Hg] Reggie Warrantly PA-C Work Phone: [facility] 05-01-2024 10:18-0400 Heart rate 70 /min Reggie Warrantly PA-C Work Phone: [facility] 05-01-2024 10:18-0400 Respiratory rate 16 /min Reggie Warrantly PA-C Work Phone: [facility] 05-01-2024 10:18-0400 Systolic blood pressure 135 mm[Hg] Reggie Warrantly PA-C Work Phone: [facility] 04-28-2024 10:40-0400 Body mass index (BMI) [Ratio] 30.69 kg/m2 Sheyla Schultz MD Work Phone: [facility] 04-28-2024 10:40-0400 Body temperature 98.4 [degF] Sheyla Schultz MD Work Phone: [facility] 04-28-2024 10:40-0400 Body weight 108.41 kg Sheyla Schultz MD Work Phone: [facility] 04-28-2024 10:40-0400 Diastolic blood pressure 71 mm[Hg] Sheyla Schultz MD Work Phone: [facility] 04-28-2024 10:40-0400 Heart rate 92 /min Sheyla Schultz MD Work Phone: [facility] 04-28-2024 10:40-0400 Respiratory rate 20 /min Sheyla Schultz MD Work Phone: [facility] 04-28-2024 10:40-0400 Systolic blood pressure 122 mm[Hg] Sheyla Schultz MD Work Phone: [facility] 04-24-2024 09:22-0400 Body height 188 cm Joel Stroud MD Work Phone: [facility] 04-24-2024 09:22-0400 Body mass index (BMI) [Ratio] 30.93 kg/m2 Joel Stroud MD Work Phone: [facility] 04-24-2024 09:22-0400 Body weight 109.27 kg Joel Stroud MD Work Phone: [facility] 04-24-2024 09:22-0400 Diastolic blood pressure 76 mm[Hg] Joel Stroud MD Work Phone: [facility] 04-24-2024 09:22-0400 Heart rate 70 /min Joel Stroud MD Work Phone: [facility] 04-24-2024 09:22-0400 SaO2% (BldA) [Mass fraction] 98 % Joel Stroud MD Work Phone: [facility] 04-24-2024 09:22-0400 Systolic blood pressure 128 mm[Hg] Joel Stroud MD Work Phone: [facility] 04-08-2024 08:40-0400 Body height 188 cm [facility] 1 [facility] 04-08-2024 08:40-0400 Body mass index (BMI) [Ratio] 30.04 kg/m2 [address] 04-08-2024 08:40-0400 Body weight 106.[address] 04-08-2024 08:40-0400 Diastolic blood pressure 72 mm[Hg] [facility] 1 [facility] 04-08-2024 08:40-0400 Heart rate 74 /min [address] 04-08-2024 08:40-0400 Respiratory rate 18 /min [address] 04-08-2024 08:40-0400 SaO2% (BldA) [Mass fraction] 96 % [address] 04-08-2024 08:40-0400 Systolic blood pressure 128 mm[Hg] [address] 03-28-2024 13:46-0400 Diastolic blood pressure 58 mm[Hg] [address] 03-28-2024 13:46-0400 Heart rate 59 /min [address] 03-28-2024 13:46-0400 Respiratory rate 20 /min [address] 03-28-2024 13:46-0400 SaO2% (BldA) [Mass fraction] 96 % [address] 03-28-2024 13:46-0400 Systolic blood pressure 131 mm[Hg] [address] 03-28-2024 13:00-0400 Body temperature 97.5 [degF] [address] 03-28-2024 12:15-0400 Body height [address] 03-28-2024 12:15-0400 Body mass index (BMI) [Ratio] 29.79 kg/m2 [address] 03-28-2024 12:15-0400 Body weight 105.[address] 03-13-2024 10:20-0400 Body height 188 cm Joel Stroud MD Work Phone: [facility] 03-13-2024 10:20-0400 Body mass index (BMI) [Ratio] 30.3 kg/m2 Joel Stroud MD Work Phone: [facility] 03-13-2024 10:20-0400 Body weight 107.05 kg Joel Stroud MD Work Phone: [facility] 03-13-2024 10:20-0400 Diastolic blood pressure 70 mm[Hg] Joel Stroud MD Work Phone: [facility] 03-13-2024 10:20-0400 Heart rate 68 /min Joel Stroud MD Work Phone: [facility] 03-13-2024 10:20-0400 SaO2% (BldA) [Mass fraction] 97 % Joel Stroud MD Work Phone: [facility] 03-13-2024 10:20-0400 Systolic blood pressure 140 mm[Hg] Joel Stroud MD Work Phone: [facility] 03-06-2024 08:24-0400 Diastolic blood pressure 75 mm[Hg] Reggie Aragon PA-C Work Phone: [facility] 03-06-2024 08:24-0400 Heart rate 68 /min Reggie Aragon PA-C Work Phone: [facility] 03-06-2024 08:24-0400 Respiratory rate 16 /min Reggie Aragon PA-C Work Phone: [facility] 03-06-2024 08:24-0400 Systolic blood pressure 131 mm[Hg] Reggie Aragon PA-C Work Phone: [facility] 03-05-2024 09:32-0400 Body temperature 98.49 [degF] Chintan Maldonado Jr. DPBritta Work Phone: [facility] 03-05-2024 09:32-0400 Diastolic blood pressure 74 mm[Hg] Chintan Maldonado Jr. DPBritta Work Phone: [facility] 03-05-2024 09:32-0400 Heart rate 77 /min Chintanbayron Maldonado Jr., DPM Work Phone: [facility] 03-05-2024 09:32-0400 Systolic blood pressure 128 mm[Hg] Chintan Erica Arce, DPM Work Phone: [facility] 01-10-2024 08:42-0400 Body height 188 cm Reggie Aragon PA-C Work Phone: [facility] 01-10-2024 08:42-0400 Body mass index (BMI) [Ratio] 29.92 kg/m2 Reggie Aragon PA-C Work Phone: [facility] 01-10-2024 08:42-0400 Body weight 105.69 kg Reggie Aragon PA-C Work Phone: [facility] 01-10-2024 08:42-0400 Diastolic blood pressure 74 mm[Hg] Reggie Aragon PA-C Work Phone: [facility] 01-10-2024 08:42-0400 Heart rate 80 /min Reggie Aragon PA-C Work Phone: [facility] 01-10-2024 08:42-0400 Respiratory rate 20 /min Reggie Aragon PA-C Work Phone: [facility] 01-10-2024 08:42-0400 Systolic blood pressure 126 mm[Hg] Reggie Aragon PA-C Work Phone: [facility] 12-07-2023 10:45-0400 Diastolic blood pressure 79 mm[Hg] [address] 12-07-2023 10:45-0400 Heart rate 61 /min [address] 12-07-2023 10:45-0400 Respiratory rate 16 /min [address] 12-07-2023 10:45-0400 SaO2% (BldA) [Mass fraction] 95 % [address] 12-07-2023 10:45-0400 Systolic blood pressure 124 mm[Hg] [address] 12-07-2023 10:28-0400 Body temperature 97.39 [degF] [address] 12-07-2023 09:36-0400 Body height [address] 12-07-2023 09:36-0400 Body mass index (BMI) [Ratio] 27.86 kg/m2 [address] 12-07-2023 09:36-0400 Body temperature 96.91 [degF] [address] 12-07-2023 09:36-0400 Body weight 98.[address] 12-07-2023 09:36-0400 Diastolic blood pressure 71 mm[Hg] [address] 12-07-2023 09:36-0400 Heart rate 64 /min [address] 12-07-2023 09:36-0400 Respiratory rate 16 /min [address] 12-07-2023 09:36-0400 SaO2% (BldA) [Mass fraction] 95 % [address] 12-07-2023 09:36-0400 Systolic blood pressure 142 mm[Hg] [address] 12-05-2023 09:38-0400 Body temperature 98.49 [degF] Chintan Maldonado Jr. DPM Work Phone: [facility] 12-05-2023 09:38-0400 Diastolic blood pressure 80 mm[Hg] Chintan Maldonado Jr. DPM Work Phone: [facility] 12-05-2023 09:38-0400 Heart rate 78 /min Chintan Maldonado Jr. DPM Work Phone: [facility] 12-05-2023 09:38-0400 Systolic blood pressure 130 mm[Hg] Chintan Maldonado Jr. DPM Work Phone: [facility] 11-21-2023 10:26-0400 Body mass index (BMI) [Ratio] 28.63 kg/m2 Sheyla Schultz MD Work Phone: [facility] 11-21-2023 10:26-0400 Body temperature 98.71 [degF] Sheyla Schultz MD Work Phone: [facility] 11-21-2023 10:26-0400 Body weight 101.15 kg Sheyla Schultz MD Work Phone: [facility] 11-21-2023 10:26-0400 Diastolic blood pressure 72 mm[Hg] Sheyla Schultz MD Work Phone: [facility] 11-21-2023 10:26-0400 Heart rate 82 /min Sheyla Schultz MD Work Phone: [facility] 11-21-2023 10:26-0400 Respiratory rate 20 /min Sheyla Schultz MD Work Phone: [facility] 11-21-2023 10:26-0400 Systolic blood pressure 122 mm[Hg] Sheyla Schultz MD Work Phone: [facility] 11-19-2023 14:38-0400 Body height 188 cm Octavio Marmolejo APRN-GIO Work Phone: [facility] 11-19-2023 14:38-0400 Body mass index (BMI) [Ratio] 28.68 kg/m2 Octavio Marmolejo APRN-GIO Work Phone: [facility] 11-19-2023 14:38-0400 Body weight 101.33 kg Octavio Marmolejo APRN-GIO Work Phone: [facility] 11-19-2023 14:38-0400 Diastolic blood pressure 70 mm[Hg] Octavio Marmolejo APRN-GIO Work Phone: [facility] 11-19-2023 14:38-0400 Heart rate 65 /min Octavio Marmolejo APRN-GIO Work Phone: [facility] 11-19-2023 14:38-0400 SaO2% (BldA) [Mass fraction] 98 % Octavio Marmolejo APRN-GIO Work Phone: [facility] 11-19-2023 14:38-0400 Systolic blood pressure 120 mm[Hg] Octavio DELGADO Work Phone: [facility] 10-31-2023 09:29-0400 Body height 188 cm Tye Anne MD Work Phone: [facility] 10-31-2023 09:29-0400 Body mass index (BMI) [Ratio] 28.81 kg/m2 Tye Anne MD Work Phone: [facility] 10-31-2023 09:29-0400 Body weight 101.79 kg Tye Anne MD Work Phone: [facility] 10-31-2023 09:29-0400 Diastolic blood pressure 70 mm[Hg] Tey Anne MD Work Phone: [facility] 10-31-2023 09:29-0400 Heart rate 71 /min Tye Anne MD Work Phone: [facility] 10-31-2023 09:29-0400 SaO2% (BldA) [Mass fraction] 96 % Tye Anne MD Work Phone: [facility] 10-31-2023 09:29-0400 Systolic blood pressure 120 mm[Hg] Tye Anne MD Work Phone: [facility] 10-18-2023 13:06-0400 Diastolic blood pressure 68 mm[Hg] Reggie Aragon PA-C Work Phone: [facility] 10-18-2023 13:06-0400 Heart rate 73 /min Reggie Aragon PA-C Work Phone: [facility] 10-18-2023 13:06-0400 Respiratory rate 16 /min Reggie Aragon PA-C Work Phone: [facility] 10-18-2023 13:06-0400 Systolic blood pressure 138 mm[Hg] Reggie Aragon PA-C Work Phone: [facility] 09-11-2023 11:26-0400 Body height 188 cm Tye Anne MD Work Phone: [facility] 09-11-2023 11:26-0400 Body mass index (BMI) [Ratio] 29.03 kg/m2 Tye Anne MD Work Phone: [facility] 09-11-2023 11:26-0400 Body weight 102.56 kg Tye Anne MD Work Phone: [facility] 09-11-2023 11:26-0400 Diastolic blood pressure 70 mm[Hg] Tye Anne MD Work Phone: [facility] 09-11-2023 11:26-0400 Heart rate 62 /min Tye Anne MD Work Phone: [facility] 09-11-2023 11:26-0400 SaO2% (BldA) [Mass fraction] 98 % Tye Anne MD Work Phone: [facility] 09-11-2023 11:26-0400 Systolic blood pressure 140 mm[Hg] Tye Anne MD Work Phone: [facility] 09-04-2023 08:12-0500 Body mass index (BMI) [Ratio] 29.02 kg/m2 Reggie Aragon PA-C Work Phone: [facility] 09-04-2023 08:12-0500 Body weight 102.51 kg Reggie Aragon PA-C Work Phone: [facility] 09-04-2023 08:12-0500 Diastolic blood pressure 73 mm[Hg] Reggie Aragon PA-C Work Phone: [facility] 09-04-2023 08:12-0500 Heart rate 78 /min Reggie Aragon PA-C Work Phone: [facility] 09-04-2023 08:12-0500 Respiratory rate 16 /min Reggie Aragon PA-C Work Phone: [facility] 09-04-2023 08:12-0500 Systolic blood pressure 123 mm[Hg] Reggie Aragon PA-C Work Phone: [facility] 2023 09:23-0500 Body temperature 98.71 [degF] Chintan Maldonado Jr., DPM Work Phone: [facility] 2023 09:23-0500 Diastolic blood pressure 84 mm[Hg] Chintan Maldonado Jr., DPM Work Phone: [facility] 2023 09:23-0500 Heart rate 83 /min Chintan Maldonado Jr., DPM Work Phone: [facility] 2023 09:23-0500 Systolic blood pressure 184 mm[Hg] Chintan Maldonado Jr., DPM Work Phone: [facility] 08-07-2023 08:53-0500 Body height 188 cm Reggie Aragon PA-C Work Phone: [facility] 08-07-2023 08:53-0500 Body mass index (BMI) [Ratio] 28.89 kg/m2 Reggiealex Aragon PA-C Work Phone: [facility] 08-07-2023 08:53-0500 Body weight 102.06 kg Reggie Aragon PA-C Work Phone: [facility] 08-07-2023 08:53-0500 Diastolic blood pressure 74 mm[Hg] Reggie Aragon PA-C Work Phone: [facility] 08-07-2023 08:53-0500 Heart rate 74 /min Reggie Aragon PA-C Work Phone: [facility] 08-07-2023 08:53-0500 Respiratory rate 20 /min Reggie Aragon PA-C Work Phone: [facility] 08-07-2023 08:53-0500 Systolic blood pressure 127 mm[Hg] Reggie Aragon PA-C Work Phone: [facility] 07-26-2023 08:52-0500 Body height 188 cm Tye Anne MD Work Phone: [facility] 07-26-2023 08:52-0500 Body mass index (BMI) [Ratio] 28.4 kg/m2 Tye Anne MD Work Phone: [facility] 07-26-2023 08:52-0500 Body weight 100.34 kg Tye Anne MD Work Phone: [facility] 07-26-2023 08:52-0500 Diastolic blood pressure 60 mm[Hg] Tye Anne MD Work Phone: [facility] 07-26-2023 08:52-0500 Heart rate 71 /min Tye Anne MD Work Phone: 2(390)[phone] [place] [address] 07-26-2023 08:52-0500 SaO2% (BldA) [Mass fraction] 97 % Tye Anne MD Work Phone: [facility] 07-26-2023 08:52-0500 Systolic blood pressure 112 mm[Hg] Tye Anne MD Work Phone: [facility] 06-13-2023 11:26-0500 Body height 188 cm Tye Anne MD Work Phone: 7(930)[phone] [place] [address] 06-13-2023 11:26-0500 Body mass index (BMI) [Ratio] 27.89 kg/m2 Tye Anne MD Work Phone: 5(593)[phone] [place] [address] 06-13-2023 11:26-0500 Body weight 98.52 kg Tye Anne MD Work Phone: 8(255)[phone] [place] [address] 06-13-2023 11:26-0500 Diastolic blood pressure 70 mm[Hg] Tye Anne MD Work Phone: 1(474)[phone] [place] [address] 06-13-2023 11:26-0500 Heart rate 69 /min Tye Anne MD Work Phone: [facility] 06-13-2023 11:26-0500 SaO2% (BldA) [Mass fraction] 98 % Tye Anne MD Work Phone: [facility] 06-13-2023 11:26-0500 Systolic blood pressure 134 mm[Hg] Tye Anne MD Work Phone: [facility] 05-23-2023 10:59-0500 Body height 189.2 cm Sheyla Schultz MD Work Phone: [facility] 05-23-2023 10:59-0500 Body mass index (BMI) [Ratio] 26.98 kg/m2 Sheyla Schultz MD Work Phone: [facility] 05-23-2023 10:59-0500 Body weight 96.62 kg Sheyla Schultz MD Work Phone: [facility] 05-23-2023 10:59-0500 Diastolic blood pressure 64 mm[Hg] Sheyla Schultz MD Work Phone: [facility] 05-23-2023 10:59-0500 Heart rate 88 /min Sheyla Schultz MD Work Phone: [facility] 05-23-2023 10:59-0500 Systolic blood pressure 128 mm[Hg] Sheyla Schultz MD Work Phone: [facility] 05-03-2023 09:29-0400 Body height 185.4 cm Reggie Aragon PA-C Work Phone: [facility] 05-03-2023 09:29-0400 Body mass index (BMI) [Ratio] 27.44 kg/m2 Reggie Aragon PA-C Work Phone: [facility] 05-03-2023 09:29-0400 Body weight 94.35 kg Reggie Aragon PA-C Work Phone: [facility] 05-03-2023 09:29-0400 Diastolic blood pressure 71 mm[Hg] Reggie Aragon PA-C Work Phone: [facility] 05-03-2023 09:29-0400 Heart rate 78 /min Reggie Aragon PA-C Work Phone: [facility] 05-03-2023 09:29-0400 Respiratory rate 14 /min Reggie Aragon PA-C Work Phone: [facility] 05-03-2023 09:29-0400 Systolic blood pressure 132 mm[Hg] Reggie Aragon PA-C Work Phone: [facility] 04-30-2023 09:51-0400 Body height 185.4 cm Tye Anne MD Work Phone: [facility] 04-30-2023 09:51-0400 Body mass index (BMI) [Ratio] 28.44 kg/m2 Tye Anne MD Work Phone: [facility] 04-30-2023 09:51-0400 Body weight 97.8 kg Tye Anne MD Work Phone: [facility] 04-30-2023 09:51-0400 Diastolic blood pressure 60 mm[Hg] Tye Anne MD Work Phone: [facility] 04-30-2023 09:51-0400 Heart rate 61 /min Tye Anne MD Work Phone: [facility] 04-30-2023 09:51-0400 SaO2% (BldA) [Mass fraction] 99 % Tye Anne MD Work Phone: [facility] 04-30-2023 09:51-0400 Systolic blood pressure 120 mm[Hg] Tye Anne MD Work Phone: [facility] 04-30-2023 08:21-0400 Body height 188 cm Yaritza Luanvinod POWERS Work Phone: [facility] 04-30-2023 08:21-0400 Body mass index (BMI) [Ratio] 27.73 kg/m2 Yaritza Luna CNP Work Phone: [facility] 04-30-2023 08:21-0400 Body weight 97.98 kg Yaritza Luna CNP Work Phone: [facility] 04-12-2023 10:38-0400 Body height 188 cm Trey Georges Jr., DO Work Phone: [facility] 04-12-2023 10:38-0400 Body mass index (BMI) [Ratio] 27.84 kg/m2 Trey Georges Jr., DO Work Phone: [facility] 04-12-2023 10:38-0400 Body temperature 98.4 [degF] Trey Georges Jr., DO Work Phone: [facility] 04-12-2023 10:38-0400 Body weight 98.34 kg Trey Georges Jr., DO Work Phone: [facility] 04-12-2023 10:38-0400 Diastolic blood pressure 77 mm[Hg] Trey Georges Jr., DO Work Phone: [facility] 04-12-2023 10:38-0400 Heart rate 69 /min Trey Georges Jr., DO Work Phone: [facility] 04-12-2023 10:38-0400 Systolic blood pressure 134 mm[Hg] Trey Georges Jr., DO Work Phone: [facility] 03-27-2023 11:08-0400 Body height 185.4 cm Tye Anne MD Work Phone: [facility] 03-27-2023 11:08-0400 Body mass index (BMI) [Ratio] 28.89 kg/m2 Tye Anne MD Work Phone: [facility] 03-27-2023 11:08-0400 Body weight 99.34 kg Tye Anne MD Work Phone: [facility] 03-27-2023 11:08-0400 Diastolic blood pressure 60 mm[Hg] Tye Anne MD Work Phone: [facility] 03-27-2023 11:08-0400 Heart rate 65 /min Tye Anne MD Work Phone: [facility] 03-27-2023 11:08-0400 SaO2% (BldA) [Mass fraction] 97 % Tye Anne MD Work Phone: [facility] 03-27-2023 11:08-0400 Systolic blood pressure 120 mm[Hg] Tye Anne MD Work Phone: [facility] 03-16-2023 19:00-0400 Body temperature 99.86 [degF] Tye Anne Other Phone: [facility] 03-16-2023 19:00-0400 Diastolic blood pressure 61 mm[Hg] Tye Anne Other Phone: [facility] 03-16-2023 19:00-0400 Heart rate 78 /min Tye Anne Other Phone: [facility] 03-16-2023 19:00-0400 Respiratory rate 16 /min Tye Anne Other Phone: [facility] 03-16-2023 19:00-0400 SaO2% (BldA) [Mass fraction] 95 % Tye Anne Other Phone: [facility] 03-16-2023 19:00-0400 Systolic blood pressure 113 mm[Hg] Tye Anne Other Phone: [facility] 03-16-2023 15:56-0400 Body height 187.9 cm Tye Anne Other Phone: [facility] 03-16-2023 15:56-0400 Body weight 96 kg Tye Anne Other Phone: [facility] 02-12-2023 10:36-0400 Body height 185.42 cm Tye Anne Work Phone: JK-Zhhdhwyqapto-D [place] [address] DO Work Phone: 02-12-2023 10:36-0400 Body mass index (BMI) [Ratio] 29.16 kg/m2 Tye Anne Work Phone: DY-Iifiiriwdpts-S [place] [address] DO Work Phone: 02-12-2023 10:36-0400 Body surface area Derived from formula 2.25 m2 Tye Anne Work Phone: RG-Prdrnsaogdjm-K [place] [address] DO Work Phone: 02-12-2023 10:36-0400 Body weight 100.25 kg Tye Anne Work Phone: FN-Uvnnviljqsoo-P [place] [address] DO Work Phone: 02-12-2023 10:36-0400 Diastolic blood pressure 58 mm[Hg] Tye Anne Work Phone: IY-Kvweuwmmqhmo-E [place] [address] DO Work Phone: 02-12-2023 10:36-0400 Heart rate 72 /min Tye Anne Work Phone: VM-Qhhmasytvjdc-U [place] [address] DO Work Phone: 02-12-2023 10:36-0400 Systolic blood pressure 136 mm[Hg] Tye Anne Work Phone: UJ-Dayvdvjkmhyc-J [place] DO Work Phone: 02-10-2023 03:59-0400 Diastolic blood pressure 87 mm[Hg] Tye Anne Other Phone: [facility] 02-10-2023 03:59-0400 Heart rate 89 /min Tye Anne Other Phone: [facility] 02-10-2023 03:59-0400 Respiratory rate 16 /min Tye Anne Other Phone: [facility] 02-10-2023 03:59-0400 SaO2% (BldA) [Mass fraction] 98 % Tye Anne Other Phone: [facility] 02-10-2023 03:59-0400 Systolic blood pressure 142 mm[Hg] Paullupe Traored Other Phone: [facility] 02-05-2023 10:06-0400 Body height 185.42 cm Paullupe Traored Work Phone: [facility] Work Phone: 02-05-2023 10:06-0400 Body mass index (BMI) [Ratio] 29.55 kg/m2 Paullupe Chalino Anne Work Phone: [facility] Work Phone: 02-05-2023 10:06-0400 Body surface area Derived from formula 2.26 m2 Paullupe Chalino Anne Work Phone: [facility] Work Phone: 02-05-2023 10:06-0400 Body weight 101.61 kg Tye Traored Work Phone: [facility] Work Phone: 02-05-2023 10:06-0400 Diastolic blood pressure 71 mm[Hg] Tye Anne Work Phone: [facility] Work Phone: 02-05-2023 10:06-0400 Heart rate 66 /min Tye Anne Work Phone: [facility] Work Phone: 02-05-2023 10:06-0400 Respiratory rate 16 /min Tye Anne Work Phone: [facility] Work Phone: 02-05-2023 10:06-0400 Systolic blood pressure 129 mm[Hg] Tye Anne Work Phone: [facility] Work Phone: 02-02-2023 13:36-0400 Body height 188 cm Elías Hsu MD Work Phone: [facility] 02-02-2023 09:41-0400 Diastolic blood pressure 73 mm[Hg] Chintan Maldonado Jr., DPM Work Phone: [facility] 02-02-2023 09:41-0400 Heart rate 70 /min Chintan Maldonado Jr., DPM Work Phone: [facility] 02-02-2023 09:41-0400 Systolic blood pressure 146 mm[Hg] Chintan Maldonado Jr., DPM Work Phone: [facility] 02-02-2023 09:36-0400 Body temperature 96.4 [degF] Chintan Maldonado Jr., DPM Work Phone: [facility] 01-26-2023 14:06-0400 Body height 185.42 cm Tye Anne Work Phone: LE-Fgearejfjwis-[address] [address] DO Work Phone: 01-26-2023 14:06-0400 Body mass index (BMI) [Ratio] 29.36 kg/m2 Tye Anne Work Phone: VD-Yceuomwybruj-Sl [place] [address] DO Work Phone: 01-26-2023 14:06-0400 Body surface area Derived from formula 2.25 m2 Tye Anne Work Phone: QO-Rtvjeqwldquv-Yd [address] DO Work Phone: 01-26-2023 14:06-0400 Body weight 100.93 kg Tye Anne Work Phone: HD-Wuqjlghbpnue-Ky [address] DO Work Phone: 01-26-2023 14:06-0400 Diastolic blood pressure 76 mm[Hg] Tye Anne Work Phone: QT-Anqakdebgyta-Hp [address]80 DO Work Phone: 01-26-2023 14:06-0400 Heart rate 71 /min Tye Anne Work Phone: VM-Hqjznwnnuhyu-Vj [place] A 2480 DO Work Phone: 01-26-2023 14:06-0400 Systolic blood pressure 144 mm[Hg] Tye Anne Work Phone: VT-Ejppvjrequyx-Zx [place] A 2480 DO Work Phone: 12-29-2022 16:45-0400 Diastolic blood pressure 72 mm[Hg] Elías Hsu MD Work Phone: [facility] 12-29-2022 16:45-0400 Heart rate 74 /min Elías Hsu MD Work Phone: [facility] 12-29-2022 16:45-0400 Systolic blood pressure 135 mm[Hg] Elías Hsu MD Work Phone: [facility] 12-07-2022 11:33-0400 Body height 185.4 cm Tye Anne MD Work Phone: [facility] 12-07-2022 11:33-0400 Body mass index (BMI) [Ratio] 29.47 kg/m2 Tye Anne MD Work Phone: [facility] 12-07-2022 11:33-0400 Body weight 101.33 kg Tye Anne MD Work Phone: [facility] 12-07-2022 11:33-0400 Diastolic blood pressure 60 mm[Hg] Tye Anne MD Work Phone: [facility] 12-07-2022 11:33-0400 Heart rate 68 /min Tye Anne MD Work Phone: [facility] 12-07-2022 11:33-0400 SaO2% (BldA) [Mass fraction] 98 % Tye Anne MD Work Phone: [facility] 12-07-2022 11:33-0400 Systolic blood pressure 100 mm[Hg] Tye Anne MD Work Phone: [facility] 11-06-2022 09:38-0400 Body mass index (BMI) [Ratio] 29.95 kg/m2 Tye Anne Work Phone: [facility] Work Phone: 11-06-2022 09:38-0400 Body surface area Derived from formula 2.27 m2 Tye Anne Work Phone: [facility] Work Phone: 11-06-2022 09:38-0400 Body weight 102.97 kg Tye Anne Work Phone: [facility] Work Phone: 11-06-2022 09:38-0400 Diastolic blood pressure 76 mm[Hg] Tye Anne Work Phone: [facility] Work Phone: 11-06-2022 09:38-0400 Heart rate 73 /min Tye Anne Work Phone: [facility] Work Phone: 11-06-2022 09:38-0400 Respiratory rate 16 /min Tye Anne Work Phone: [facility] Work Phone: 11-06-2022 09:38-0400 Systolic blood pressure 144 mm[Hg] Tye Anne Work Phone: [facility] an Work Phone: 10-14-2022 20:55-0400 Diastolic blood pressure 70 mm[Hg] Tye Anne Other Phone: [facility] 10-14-2022 20:55-0400 Heart rate 78 /min Tye Anne Other Phone: [facility] 10-14-2022 20:55-0400 Respiratory rate 16 /min Tye Anne Other Phone: [facility] 10-14-2022 20:55-0400 SaO2% (BldA) [Mass fraction] 98 % Tye Anne Other Phone: [facility] 10-14-2022 20:55-0400 Systolic blood pressure 126 mm[Hg] Tye Anne Other Phone: [facility] 10-14-2022 20:02-0400 Body height 187.9 cm Tye Anne Other Phone: [facility] 10-14-2022 20:02-0400 Body temperature 97.88 [degF] Tye Anne Other Phone: [facility] 10-14-2022 20:02-0400 Body weight 98.6 kg Tye Anne Other Phone: [facility] 10-05-2022 08:58-0400 Body height 185.4 cm Yaritza Luna CNP Work Phone: [facility] 10-05-2022 08:58-0400 Body mass index (BMI) [Ratio] 28.37 kg/m2 Yaritza Luna [employer] Work Phone: [facility] 10-05-2022 08:58-0400 Body weight 97.52 kg Yaritza Luna [employer]CH[employer] HELPER Work Phone: [facility] 08-31-2022 11:02-0500 Body height 185.42 cm Tye Anne Work Phone: TL-Awuhuwcbba-Yxrn and [address] Work Phone: 08-31-2022 11:02-0500 Body mass index (BMI) [Ratio] 29.21 kg/m2 Tye Anne Work Phone: PE-Vxxvkjsmlg-Vanz and [address] Work Phone: 08-31-2022 11:02-0500 Body surface area Derived from formula 2.25 m2 Tye Anne Work Phone: KQ-Ctswcjqmhx-Nhtc and [address] Work Phone: 08-31-2022 11:02-0500 Body weight 100.42 kg Tye Anne Work Phone: GR-Vsgqhmfacj-Hgmq and [address] Work Phone: 08-31-2022 11:02-0500 Diastolic blood pressure 48 mm[Hg] Tye Anne Work Phone: ZN-Mzlffptrjq-Ntcm and [address] Work Phone: 08-31-2022 11:02-0500 Heart rate 64 /min Tye Anne Work Phone: VY-Xpdpnombfb-Wrll [address] Work Phone: 08-31-2022 11:02-0500 SaO2% (BldA) [Mass fraction] 96 % Tye Anne Work Phone: NV-Ymzevejzfo-Uufd [address] Work Phone: 08-31-2022 11:02-0500 Systolic blood pressure 110 mm[Hg] Tye Anne Work Phone: YR-Smdtaknaks-Wryh [address] Work Phone: 08-26-2022 01:30-0500 Diastolic blood pressure 60 mm[Hg] Tye Anne Other Phone: [facility] 08-26-2022 01:30-0500 Heart rate 63 /min Tye Anne Other Phone: [facility] 08-26-2022 01:30-0500 Respiratory rate 16 /min Tye Traored Other Phone: [facility] 08-26-2022 01:30-0500 SaO2% (BldA) [Mass fraction] 97 % Tye Anne Other Phone: [facility] 08-26-2022 01:30-0500 Systolic blood pressure 135 mm[Hg] Tye Anne Other Phone: [facility] 08-25-2022 21:58-0500 Body height 187.9 cm Tye Anne Other Phone: [facility] 08-25-2022 21:58-0500 Body temperature 97.52 [degF] Paulmerepeyton Anne Other Phone: [facility] 08-25-2022 21:58-0500 Body weight 96.4 kg Paulmerepeyton Anne Other Phone: [facility] 08-07-2022 12:51-0500 Diastolic blood pressure 74 mm[Hg] Tye Anne Work Phone: [facility] Work Phone: 08-07-2022 12:51-0500 Heart rate 76 /min Tye Anne Work Phone: [facility] Work Phone: 08-07-2022 12:51-0500 Systolic blood pressure 131 mm[Hg] Lutherer Chalino Traored Work Phone: [facility] Work Phone: 08-07-2022 12:12-0500 Body mass index (BMI) [Ratio] 28.89 kg/m2 Tye Anne Work Phone: [facility] Work Phone: 08-07-2022 12:12-0500 Body surface area Derived from formula 2.24 m2 Tye Anne Work Phone: [facility] Work Phone: 08-07-2022 12:12-0500 Body weight 99.34 kg Tye Anne Work Phone: [facility] Work Phone: 08-07-2022 12:12-0500 Diastolic blood pressure 61 mm[Hg] Tye Anne Work Phone: [facility] Work Phone: 08-07-2022 12:12-0500 Heart rate 70 /min Tye Anne Work Phone: [facility] Work Phone: 08-07-2022 12:12-0500 Respiratory rate 14 /min Tye Anne Work Phone: [facility] Work Phone: 08-07-2022 12:12-0500 Systolic blood pressure 118 mm[Hg] Tye Anne Work Phone: [facility] Work Phone: 08-04-2022 09:28-0500 Body temperature 98.4 [degF] Chintan Maldonado Jr., DPM Work Phone: [facility] 08-04-2022 09:28-0500 Diastolic blood pressure 69 mm[Hg] Chintan Maldonado Jr., DPM Work Phone: [facility] 08-04-2022 09:28-0500 Heart rate 83 /min Chintan Maldonado Jr., DPM Work Phone: [facility] 08-04-2022 09:28-0500 Systolic blood pressure 119 mm[Hg] Chintan Maldonado Jr., DPM Work Phone: [facility] 08-01-2022 10:22-0500 Body height 185.4 cm Yaritza Luna CNP Work Phone: [facility] 08-01-2022 10:22-0500 Body mass index (BMI) [Ratio] 28.37 kg/m2 Yaritza Luna CNP Work Phone: [facility] 08-01-2022 10:22-0500 Body temperature 97.81 [degF] Yaritza Luna CNP Work Phone: [facility] Comment on above: oral 08-01-2022 10:22-0500 Body weight 97.52 kg Yaritza Luna CNP Work Phone: [facility] 07-10-2022 10:22-0500 Body mass index (BMI) [Ratio] 29.69 kg/m2 Tye Anne Work Phone: [facility] Work Phone: 07-10-2022 10:22-0500 Body surface area Derived from formula 2.26 m2 Tye Anne Work Phone: [facility] Work Phone: 07-10-2022 10:22-0500 Body weight 102.06 kg Tye Anne Work Phone: [facility] Work Phone: 07-10-2022 10:22-0500 Diastolic blood pressure 70 mm[Hg] Tye Anne Work Phone: [facility] Work Phone: 07-10-2022 10:22-0500 Heart rate 66 /min Tye Anne Work Phone: [facility] Work Phone: 07-10-2022 10:22-0500 Respiratory rate 16 /min Tye Anne Work Phone: [facility] Work Phone: 07-10-2022 10:22-0500 Systolic blood pressure 120 mm[Hg] Tye Anne Work Phone: [facility] Work Phone: 07-10-2022 08:33-0500 Body height 185.42 cm Tye Anne Work Phone: [facility] Work Phone: 07-10-2022 08:33-0500 Body mass index (BMI) [Ratio] 29.55 kg/m2 Tye Anne Work Phone: [facility] Work Phone: 07-10-2022 08:33-0500 Body surface area Derived from formula 2.26 m2 Tye Anne Work Phone: [facility] Work Phone: 07-10-2022 08:33-0500 Body weight 101.61 kg Tye Anne Work Phone: [facility] Work Phone: 07-10-2022 08:33-0500 Diastolic blood pressure 50 mm[Hg] Tye Anne Work Phone: [facility] Work Phone: 07-10-2022 08:33-0500 Heart rate 61 /min Tye Anne Work Phone: [facility] Work Phone: 07-10-2022 08:33-0500 SaO2% (BldA) [Mass fraction] 98 % yTe Anne Work Phone: [facility] Work Phone: 07-10-2022 08:33-0500 Systolic blood pressure 132 mm[Hg] Tye Anne Work Phone: [facility] Work Phone: 05-11-2022 10:41-0500 Body height 185.42 cm Tye Anne Work Phone: DJ-Xftuawhthx-Bhie nna 100 Work Phone: 05-11-2022 10:41-0500 Diastolic blood pressure 52 mm[Hg] Tye Anne Work Phone: WW-Xderlbhgps-Enjp nna 100 Work Phone: 05-11-2022 10:41-0500 Heart rate 47 /min Tye Anne Work Phone: MU-Bdtdzhanvj-Sein nna 100 Work Phone: 05-11-2022 10:41-0500 Respiratory rate 16 /min Tye Anne Work Phone: PR-Niptckmxot-Nqbo nna 100 Work Phone: 05-11-2022 10:41-0500 Systolic blood pressure 124 mm[Hg] Tye Anne Work Phone: AN-Fphmktcmrp-Kucb nna 100 Work Phone: 05-05-2022 09:50-0400 Body temperature 97.5 [degF] Chintan Maldonado Jr., DPM Work Phone: [facility] 05-05-2022 09:50-0400 Diastolic blood pressure 56 mm[Hg] Chintan Maldonado Jr., DPM Work Phone: [facility] 05-05-2022 09:50-0400 Heart rate 55 /min Chintan Maldonado Jr., DPM Work Phone: [facility] 05-05-2022 09:50-0400 Systolic blood pressure 130 mm[Hg] Chintan Erica Jr., DPM Work Phone: [facility] 04-10-2022 10:16-0400 Body mass index (BMI) [Ratio] 31 kg/m2 Tye Anne Work Phone: [facility] Work Phone: 04-10-2022 10:16-0400 Body surface area Derived from formula 2.3 m2 Tye Anne Work Phone: [facility] Work Phone: 04-10-2022 10:16-0400 Body weight 106.6 kg Tye Anne Work Phone: [facility] Work Phone: 04-10-2022 10:16-0400 Diastolic blood pressure 56 mm[Hg] Tye Anne Work Phone: [facility] Work Phone: 04-10-2022 10:16-0400 Heart rate 58 /min Tye Anne Work Phone: [facility] Work Phone: 04-10-2022 10:16-0400 Respiratory rate 16 /min Tye Anne Work Phone: [facility] Work Phone: 04-10-2022 10:16-0400 Systolic blood pressure 130 mm[Hg] Tye Anne Work Phone: [facility] Work Phone: 03-15-2022 11:22-0400 Body height 185.42 cm Tye Anne Work Phone: [facility] Work Phone: 03-15-2022 11:22-0400 Body mass index (BMI) [Ratio] 31.17 kg/m2 Tye Anne Work Phone: [employer] Work Phone: 03-15-2022 11:22-0400 Body surface area Derived from formula 2.31 m2 Tye Traored Work Phone: [employer] Work Phone: 03-15-2022 11:22-0400 Body weight 107.16 kg Tye Traored Work Phone: [employer] Work Phone: 03-15-2022 11:22-0400 Diastolic blood pressure 52 mm[Hg] Tye Anne Work Phone: [employer] Work Phone: 03-15-2022 11:22-0400 Heart rate 58 /min Tye Traored Work Phone: [employer] Work Phone: 03-15-2022 11:22-0400 SaO2% (BldA) [Mass fraction] 97 % Tye Anne Work Phone: [employer] Work Phone: 03-15-2022 11:22-0400 Systolic blood pressure 120 mm[Hg] Tye Traored Work Phone: [employer] Work Phone: 02-28-2022 10:07-0400 Body mass index (BMI) [Ratio] 31.27 kg/m2 Tye Traored Work Phone: [facility] Work Phone: 02-28-2022 10:07-0400 Body surface area Derived from formula 2.31 m2 Paullupe Chalino Anne Work Phone: [facility] Work Phone: 02-28-2022 10:07-0400 Body weight 107.5 kg Tye Anne Work Phone: [facility] Work Phone: 02-28-2022 10:07-0400 Diastolic blood pressure 57 mm[Hg] Tye Anne Work Phone: [facility] Work Phone: 02-28-2022 10:07-0400 Heart rate 68 /min Tye Anne Work Phone: [facility] Work Phone: 02-28-2022 10:07-0400 Respiratory rate 16 /min Tye Anne Work Phone: [facility] Work Phone: 02-28-2022 10:07-0400 Systolic blood pressure 119 mm[Hg] Tye Anne Work Phone: [facility] Work Phone: 02-24-2022 10:01-0400 Body temperature 98.29 [degF] Chintan Maldonado Jr., DPM Work Phone: [facility] 02-24-2022 10:01-0400 Diastolic blood pressure 58 mm[Hg] Chintan Maldonado Jr., DPM Work Phone: [facility] 02-24-2022 10:01-0400 Heart rate 52 /min Chintan Maldonado Jr., DPM Work Phone: [facility] 02-24-2022 10:01-0400 Systolic blood pressure 99 mm[Hg] Chintan Maldonado Jr., DPM Work Phone: [facility] 02-23-2022 10:50-0400 Body height 185.42 cm Tye Anne Work Phone: YX-Sixzkdimyz-Jtmb [address] Work Phone: 02-23-2022 10:50-0400 Body mass index (BMI) [Ratio] 30.73 kg/m2 Tye Chalino Dayana Work Phone: MN-Cbzzvwqjci-Rzoz and [address] Work Phone: 02-23-2022 10:50-0400 Body surface area Derived from formula 2.3 m2 Tye Chalino Dayana Work Phone: TB-Malriscftg-Blxj and [address] Work Phone: 02-23-2022 10:50-0400 Body weight 105.64 kg Tye Chalino Dayana Work Phone: LJ-Sxaedqvvrv-Qqnd and [address] Work Phone: 02-23-2022 10:50-0400 Diastolic blood pressure 48 mm[Hg] Tye Chalino Dayana Work Phone: WX-Zdzctvmups-Vikg and [address] Work Phone: 02-23-2022 10:50-0400 Heart rate 59 /min Tye Anne Work Phone: WA-Vllddprlii-Npph and [address] Work Phone: 02-23-2022 10:50-0400 SaO2% (BldA) [Mass fraction] 92 % Tye Anne Work Phone: VI-Mzvclhvkey-Sqpn and [address] Work Phone: 02-23-2022 10:50-0400 Systolic blood pressure 114 mm[Hg] Paullupe Chalino Dayana Work Phone: NC-Ubrbqncrrm-Jlhy [address] Work Phone: 01-19-2022 09:49-0400 Body height 185.42 cm Tye Allred Anne Work Phone: BW-Dqmmngknox-Xrpb ord Work Phone: 01-19-2022 09:49-0400 Body mass index (BMI) [Ratio] 32.19 kg/m2 Christlupe Anne Work Phone: WB-Xmjztzdmek-Nsuy ord Work Phone: 01-19-2022 09:49-0400 Body surface area Derived from formula 2.34 m2 Tye Chalino Anne Work Phone: TJ-Mqfqyvidkt-Kaet ord Work Phone: 01-19-2022 09:49-0400 Body weight 110.68 kg Paullupe Chalino Anne Work Phone: OZ-Moquwxqtib-Fhiu ord Work Phone: 01-19-2022 09:49-0400 Diastolic blood pressure 58 mm[Hg] Paullupe Chalino Anne Work Phone: KD-Vjrjvonkfa-Fzoj ord Work Phone: 01-19-2022 09:49-0400 Heart rate 52 /min Paullupe Chalino Anne Work Phone: BP-Xgvdfzrkhy-Dbyj ord Work Phone: 01-19-2022 09:49-0400 SaO2% (BldA) [Mass fraction] 98 % Tye Anne Work Phone: BQ-Nqperrmmpt-Hsuf ord Work Phone: 01-19-2022 09:49-0400 Systolic blood pressure 120 mm[Hg] Tye Anne Work Phone: ZU-Rpuwmdbmts-Vamv ord Work Phone: 01-05-2022 08:59-0400 Body height 185.42 cm Tye Chalino Anne Work Phone: -[facility] Work Phone: 01-05-2022 08:59-0400 Body mass index (BMI) [Ratio] 32.51 kg/m2 Paullupe Chalino Anne Work Phone: -[facility] Work Phone: 01-05-2022 08:59-0400 Body surface area Derived from formula 2.35 m2 Tye Anne Work Phone: [facility] Work Phone: 01-05-2022 08:59-0400 Body weight 111.79 kg Tye Anne Work Phone: [facility] Work Phone: 01-05-2022 08:59-0400 Diastolic blood pressure 40 mm[Hg] Tye Anne Work Phone: [facility] Work Phone: 01-05-2022 08:59-0400 Heart rate 46 /min Tye Anne Work Phone: [facility] Work Phone: 01-05-2022 08:59-0400 SaO2% (BldA) [Mass fraction] 96 % Tye Anne Work Phone: [facility] Work Phone: 01-05-2022 08:59-0400 Systolic blood pressure 110 mm[Hg] Tye Anne Work Phone: [facility] Work Phone: 12-07-2021 11:15-0400 Body height 185.42 cm Tye Anne Work Phone: [facility] Work Phone: 12-07-2021 11:15-0400 Body mass index (BMI) [Ratio] 32.88 kg/m2 Tye Anne Work Phone: [employer] Work Phone: 12-07-2021 11:15-0400 Body surface area Derived from formula 2.36 m2 Tye Anne Work Phone: [employer] Work Phone: 12-07-2021 11:15-0400 Body weight 113.03 kg Christopher D Anne Work Phone: [facility] Work Phone: 12-07-2021 11:15-0400 Diastolic blood pressure 52 mm[Hg] Christopher D Anne Work Phone: [facility] Work Phone: 12-07-2021 11:15-0400 Heart rate 64 /min Christopher D Anne Work Phone: [facility] Work Phone: 12-07-2021 11:15-0400 SaO2% (BldA) [Mass fraction] 97 % Christopher D Anne Work Phone: [facility] Work Phone: 12-07-2021 11:15-0400 Systolic blood pressure 130 mm[Hg] Christopher D Anne Work Phone: [facility] Work Phone: 11-24-2021 15:15-0400 Diastolic blood pressure 68 mm[Hg] Christopher Anne Other Phone: [facility] 11-24-2021 15:15-0400 Heart rate 77 /min Christopher Anne Other Phone: [facility] 11-24-2021 15:15-0400 Respiratory rate 16 /min Christopher Anne Other Phone: [facility] 11-24-2021 15:15-0400 SaO2% (BldA) [Mass fraction] 97 % Christopher Anne Other Phone: [facility] 11-24-2021 15:15-0400 Systolic blood pressure 112 mm[Hg] Christopher Anne Other Phone: [facility] 11-24-2021 12:58-0400 Body height 187.9 cm Paullupe Traored Other Phone: [facility] 11-24-2021 12:58-0400 Body temperature 97.16 [degF] Tye Traored Other Phone: [facility] 11-24-2021 12:58-0400 Body weight 120 kg Tye Anne Other Phone: [facility] 11-11-2021 09:49-0400 Body temperature 97.7 [degF] Chintan Erica Jr., DPM Work Phone: [facility] 11-11-2021 09:49-0400 Diastolic blood pressure 69 mm[Hg] Chintan Erica Jr., DPM Work Phone: [facility] 11-11-2021 09:49-0400 Heart rate 76 /min Chintan Erica Jr., DPM Work Phone: [facility] 11-11-2021 09:49-0400 Systolic blood pressure 124 mm[Hg] Chintan Erica Jr., DPM Work Phone: [facility] 09-16-2021 09:53-0400 Diastolic blood pressure 64 mm[Hg] Chintan Erica Jr., DPM Work Phone: [facility] 09-16-2021 09:53-0400 Heart rate 59 /min Chintan Erica Jr., DPM Work Phone: [facility] 09-16-2021 09:53-0400 Systolic blood pressure 117 mm[Hg] Chintan Erica Jr., DPM Work Phone: [facility] 09-16-2021 09:43-0400 Body temperature 97.7 [degF] Chintan Erica Jr., DPM Work Phone: [facility] 09-01-2021 14:05-0500 5 1 Tye Anne Work Phone: [facility] Work Phone: Comment on above: [id number] 09-01-2021 13:48-0500 Body height 185.42 cm Tye Anne Work Phone: [employer] Work Phone: 09-01-2021 13:48-0500 Body mass index (BMI) [Ratio] 35.25 kg/m2 Tey Anne Work Phone: [employer] Work Phone: 09-01-2021 13:48-0500 Body surface area Derived from formula 2.43 m2 Tye Anne Work Phone: [employer] [facility] Work Phone: 09-01-2021 13:48-0500 Body weight 121.2 kg Tye Anne Work Phone: [employer] Work Phone: 09-01-2021 13:48-0500 Diastolic blood pressure 64 mm[Hg] Tye Anne Work Phone: [facility] [facility] Work Phone: 09-01-2021 13:48-0500 Heart rate 64 /min Tye Anne Work Phone: [employer] Work Phone: 09-01-2021 13:48-0500 SaO2% (BldA) [Mass fraction] 96 % Tye Anne Work Phone: [employer] Work Phone: 09-01-2021 13:48-0500 Systolic blood pressure 118 mm[Hg] Puallupe Traored Work Phone: [facility] [employer] [facility] Work Phone: 08-12-2021 09:49-0500 Body temperature 97.59 [degF] Chintan Maldonado Jr., DPM Work Phone: [facility] 08-12-2021 09:49-0500 Diastolic blood pressure 66 mm[Hg] Chintan Maldonado Jr., DPM Work Phone: [facility] 08-12-2021 09:49-0500 Heart rate 59 /min Chintan Maldonado Jr., DPM Work Phone: [facility] 08-12-2021 09:49-0500 Systolic blood pressure 138 mm[Hg] Chintan Maldonado Jr., DPM Work Phone: [facility] 08-10-2021 11:22-0500 Body height 182.88 cm Tye Anne Work Phone: YB-Qmweiidtxc-Pzte and [address] Work Phone: 08-10-2021 11:22-0500 Body mass index (BMI) [Ratio] 37.08 kg/m2 Tye Anne Work Phone: VP-Csosxuygev-Lxll and [address] Work Phone: 08-10-2021 11:22-0500 Body surface area Derived from formula 2.43 m2 Tye Anne Work Phone: CF-Udtmknerml-Lizu and [address] Work Phone: 08-10-2021 11:22-0500 Body temperature 96.4 [degF] Tye Anne Work Phone: YJ-Okmmtisfur-Gchp and [address] Work Phone: 08-10-2021 11:22-0500 Body weight 124.03 kg Tye Anne Work Phone: RG-Yuycyqglqs-Jtvp and [address] Work Phone: 08-10-2021 11:22-0500 Diastolic blood pressure 64 mm[Hg] Tye Anne Work Phone: WI-Cysagyolvf-Oocu and [address] Work Phone: 08-10-2021 11:22-0500 Heart rate 65 /min Tye Anne Work Phone: IA-Rnbexkmkwe-Gbyw and [address] Work Phone: 08-10-2021 11:22-0500 SaO2% (BldA) [Mass fraction] 96 % Tye Anne Work Phone: DA-Opgjqhkmgi-Bcdz and [address] Work Phone: 08-10-2021 11:22-0500 Systolic blood pressure 122 mm[Hg] Tye Anne Work Phone: HJ-Izsuswarvu-Lmom and [address] Work Phone: 07-26-2021 11:07-0500 Body temperature 97.3 [degF] [facility] 11:07-0500 Diastolic blood pressure 72 mm[Hg] Dariela [facility] 07-26-2021 11:07-0500 Heart rate 91 /min [facility] 07-26-2021 11:07-0500 Systolic blood pressure 150 mm[Hg] [facility] 07-25-2021 14:56-0500 Body height 185.4 cm Yaritza Luna CNP Work Phone: [facility] 07-25-2021 14:56-0500 Body mass index (BMI) [Ratio] 36.94 kg/m2 Yaritza Luna CNP Work Phone: [facility] 07-25-2021 14:56-0500 Body weight 127.01 kg Yaritza Luna CNP Work Phone: [facility] [facility] 07-08-2021 08:50-0500 Body height 185.42 cm Tye Anne Work Phone: [facility] Work Phone: 07-08-2021 08:50-0500 Body mass index (BMI) [Ratio] 37.13 kg/m2 Tye Anne Work Phone: [facility] Work Phone: 07-08-2021 08:50-0500 Body surface area Derived from formula 2.49 m2 Tye Anne Work Phone: [facility] Work Phone: 07-08-2021 08:50-0500 Body temperature 95.9 [degF] Tye Anne Work Phone: [facility] Work Phone: 07-08-2021 08:50-0500 Body weight 127.66 kg Tye Anne Work Phone: [facility] Work Phone: 07-08-2021 08:50-0500 Diastolic blood pressure 60 mm[Hg] Tye Anne Work Phone: [facility] Work Phone: 07-08-2021 08:50-0500 Heart rate 65 /min Tye Anne Work Phone: [employer] Work Phone: 07-08-2021 08:50-0500 SaO2% (BldA) [Mass fraction] 98 % Tye Anne Work Phone: [facility] Work Phone: 07-08-2021 08:50-0500 Systolic blood pressure 114 mm[Hg] Tye Anne Work Phone: [facility] Work Phone: 06-29-2021 10:44-0500 Body height 185.42 cm Tye Anne Work Phone: [facility] Work Phone: 06-29-2021 10:44-0500 Body mass index (BMI) [Ratio] 37.34 kg/m2 Tye Anne Work Phone: [facility] Work Phone: 06-29-2021 10:44-0500 Body surface area Derived from formula 2.49 m2 Tye Anne Work Phone: [facility] Work Phone: 06-29-2021 10:44-0500 Body temperature 95.9 [degF] Tye Anne Work Phone: [facility] Work Phone: 06-29-2021 10:44-0500 Body weight 128.37 kg Tye Anne Work Phone: [facility] Work Phone: 06-29-2021 10:44-0500 Diastolic blood pressure 74 mm[Hg] Tye Anne Work Phone: [facility] Work Phone: 06-29-2021 10:44-0500 Heart rate 60 /min Tye Anne Work Phone: [facility] Work Phone: 06-29-2021 10:44-0500 SaO2% (BldA) [Mass fraction] 98 % Tye Anne Work Phone: [facility] Work Phone: 06-29-2021 10:44-0500 Systolic blood pressure 132 mm[Hg] Tye Anne Work Phone: [facility] Work Phone: 06-16-2021 11:10-0500 Body height 185.42 cm Tye Anne Work Phone: DW-Vjbxcwdbgt-Vrif ord Work Phone: 06-16-2021 11:10-0500 Body mass index (BMI) [Ratio] 36.68 kg/m2 Tye Anne Work Phone: JV-Yleifvtqsh-Grih ord Work Phone: 06-16-2021 11:10-0500 Body surface area Derived from formula 2.48 m2 Tye Anne Work Phone: QZ-Qjsfusfepb-Rnyk ord Work Phone: 06-16-2021 11:10-0500 Body weight 126.1 kg Tye Anne Work Phone: FI-Byiempnvbd-Axnl ord Work Phone: 06-16-2021 11:10-0500 Diastolic blood pressure 74 mm[Hg] Tye Anne Work Phone: YG-Odjwhdtork-Czmt ord Work Phone: 06-16-2021 11:10-0500 Heart rate 90 /min Tye Anne Work Phone: XE-Asqijovzdv-Jiqx ord Work Phone: 06-16-2021 11:10-0500 Respiratory rate 16 /min Tye Anne Work Phone: XX-Xamxmxmhtc-Epjk ord Work Phone: 06-16-2021 11:10-0500 SaO2% (BldA) [Mass fraction] 90 % Tye Anne Work Phone: SC-Qbsnnjedzp-Sbje ord Work Phone: 06-16-2021 11:10-0500 Systolic blood pressure 148 mm[Hg] Tye Anne Work Phone: BS-Mhkgbqhrwr-Jmuo ord Work Phone: 06-10-2021 11:49-0500 Body height 184.15 cm Tye Anne Work Phone: [facility] Work Phone: 06-10-2021 11:49-0500 Body mass index (BMI) [Ratio] 37.39 kg/m2 Paullupe Chalino Anne Work Phone: [facility] Work Phone: 06-10-2021 11:49-0500 Body surface area Derived from formula 2.47 m2 Tye Allred Anne Work Phone: [facility] Work Phone: 06-10-2021 11:49-0500 Body temperature 96.9 [degF] Paullupe Traored Work Phone: [facility] Work Phone: 06-10-2021 11:49-0500 Body weight 126.78 kg Paullupe Chalino Anne Work Phone: [facility] Work Phone: 06-10-2021 11:49-0500 Diastolic blood pressure 60 mm[Hg] Tye Allred Anne Work Phone: [facility] Work Phone: 06-10-2021 11:49-0500 Heart rate 59 /min Tye Traored Work Phone: [facility] Work Phone: 06-10-2021 11:49-0500 SaO2% (BldA) [Mass fraction] 98 % Tye Allred Anne Work Phone: [facility] Work Phone: 06-10-2021 11:49-0500 Systolic blood pressure 120 mm[Hg] Tye Allred Anne Work Phone: [facility] Work Phone: 06-06-2021 09:07-0500 Body mass index (BMI) [Ratio] 13.07 kg/m2 Tye Anne Work Phone: [facility] Work Phone: 06-06-2021 09:07-0500 Body surface area Derived from formula 1.58 m2 Tye Anne Work Phone: [facility] Work Phone: 06-06-2021 09:07-0500 Body temperature 97.7 [degF] Tye Anne Work Phone: [facility] Work Phone: 06-06-2021 09:07-0500 Body weight 44.32 kg Tye Anne Work Phone: [facility] Work Phone: 06-06-2021 09:07-0500 Diastolic blood pressure 63 mm[Hg] Tye Anne Work Phone: [facility] Work Phone: 06-06-2021 09:07-0500 Heart rate 70 /min Tye Anne Work Phone: [facility] Work Phone: 06-06-2021 09:07-0500 Respiratory rate 16 /min Tye Anne Work Phone: [facility] Work Phone: 06-06-2021 09:07-0500 Systolic blood pressure 135 mm[Hg] Tye Anne Work Phone: [facility] Work Phone: 06-03-2021 14:36-0500 Diastolic blood pressure 70 mm[Hg] Tye Anne Other Phone: [facility] 06-03-2021 14:36-0500 Heart rate 62 /min Tye Anne Other Phone: [facility] 06-03-2021 14:36-0500 Respiratory rate 18 /min Tye Anne Other Phone: [facility] 06-03-2021 14:36-0500 SaO2% (BldA) [Mass fraction] 99 % Tye Traored Other Phone: [facility] 06-03-2021 14:36-0500 Systolic blood pressure 147 mm[Hg] Christopher Anne Other Phone: [facility] 06-03-2021 12:07-0500 Body temperature 98.06 [degF] Tye Traored Other Phone: [facility] 06-03-2021 12:07-0500 Body weight 128 kg Tye Traored Other Phone: [facility] 06-01-2021 12:32-0500 Body height 183 cm Tye Traored Other Phone: [facility] 06-01-2021 12:32-0500 Body temperature 97.7 [degF] Tye Traored Other Phone: [facility] 06-01-2021 12:32-0500 Diastolic blood pressure 79 mm[Hg] Lutherer Anne Other Phone: [facility] 06-01-2021 12:32-0500 Heart rate 69 /min Tye Traored Other Phone: [facility] 06-01-2021 12:32-0500 SaO2% (BldA) [Mass fraction] 96 % Tye Traored Other Phone: [facility] 06-01-2021 12:32-0500 Systolic blood pressure 147 mm[Hg] Lutherer Anne Other Phone: [facility] 05-30-2021 11:19-0500 Body height 184.15 cm Tye Anne Work Phone: VI-Iwkrkzwwxz-Xsxj and [address] Work Phone: 05-30-2021 11:19-0500 Body mass index (BMI) [Ratio] 37.73 kg/m2 Tye Anne Work Phone: XM-Zcagdxtzyw-Muwe and [address] Work Phone: 05-30-2021 11:19-0500 Body surface area Derived from formula 2.48 m2 Tye Anne Work Phone: WL-Pydhqtcrqj-Duuu and [address] Work Phone: 05-30-2021 11:19-0500 Body temperature 97.5 [degF] Tye Anne Work Phone: BS-Fsxfhshifi-Ncjj and [address] Work Phone: 05-30-2021 11:19-0500 Body weight 127.94 kg Tye Anne Work Phone: OZ-Fyudsxrmdx-Fkwk and [address] Work Phone: 05-30-2021 11:19-0500 Diastolic blood pressure 78 mm[Hg] Tye Anne Work Phone: VE-Gjdklqaxgh-Qirc and [address] Work Phone: 05-30-2021 11:19-0500 Heart rate 77 /min Tye Anne Work Phone: JZ-Ehbrenldmi-Wfzx and [address] Work Phone: 05-30-2021 11:19-0500 SaO2% (BldA) [Mass fraction] 98 % Tye Anne Work Phone: ZC-Dgoddllfnn-Ijnt and [address] Work Phone: 05-30-2021 11:19-0500 Systolic blood pressure 136 mm[Hg] Tye Anne Work Phone: NA-Fcceuycijs-Mzjl and [address] Work Phone: 05-13-2021 17:28-0500 Diastolic blood pressure 75 mm[Hg] Tye Anne Other Phone: [facility] 05-13-2021 17:28-0500 Heart rate 80 /min Tye Traored Other Phone: [facility] 05-13-2021 17:28-0500 Respiratory rate 18 /min Tye Traored Other Phone: [facility] 05-13-2021 17:28-0500 SaO2% (BldA) [Mass fraction] 95 % Tye Traored Other Phone: [facility] 05-13-2021 17:28-0500 Systolic blood pressure 172 mm[Hg] Paullupe Traored Other Phone: [facility] 05-13-2021 14:50-0500 Body height 187.9 cm Tye Anne Other Phone: [facility] 05-13-2021 14:50-0500 Body temperature 98.78 [degF] Tye Anne Other Phone: [facility] 05-13-2021 14:50-0500 Body weight 122.5 kg Tye Anne Other Phone: [facility] 05-06-2021 10:14-0400 Body height 185.4 cm Chintan Maldonado Jr. DPM Work Phone: [facility] 05-06-2021 10:14-0400 Body mass index (BMI) [Ratio] 36.94 kg/m2 Chintan Maldonado Jr., DPM Work Phone: [facility] 05-06-2021 10:14-0400 Body temperature 96.8 [degF] Chintan Maldonado Jr., DPM Work Phone: [facility] 05-06-2021 10:14-0400 Body weight 127.01 kg Chintan Maldonado Jr., DPM Work Phone: [facility] 04-04-2021 10:47-0400 Body height 182.88 cm Tye Anne Work Phone: [facility] Work Phone: 04-04-2021 10:47-0400 Body mass index (BMI) [Ratio] 37.84 kg/m2 Tye Anne Work Phone: [facility] Work Phone: 04-04-2021 10:47-0400 Body surface area Derived from formula 2.45 m2 Tye Anne Work Phone: [facility] Work Phone: 04-04-2021 10:47-0400 Body temperature 97.9 [degF] Tye Anne Work Phone: [facility] Work Phone: 04-04-2021 10:47-0400 Body weight 126.55 kg Tye Anne Work Phone: [facility] Work Phone: 04-04-2021 10:47-0400 Diastolic blood pressure 67 mm[Hg] Tye Anne Work Phone: [facility] Work Phone: 04-04-2021 10:47-0400 Heart rate 59 /min Tye Anne Work Phone: [facility] Work Phone: 04-04-2021 10:47-0400 Respiratory rate 16 /min Tye Anne Work Phone: [facility] Work Phone: 04-04-2021 10:47-0400 Systolic blood pressure 164 mm[Hg] Tye Anne Work Phone: [facility] Work Phone: 03-15-2021 14:08-0400 Body height 182.88 cm Tye Anne Work Phone: [facility] Work Phone: 03-15-2021 14:08-0400 Body mass index (BMI) [Ratio] 37.84 kg/m2 Paullupe Chalino Anne Work Phone: [facility] Work Phone: 03-15-2021 14:08-0400 Body surface area Derived from formula 2.45 m2 Tye Anne Work Phone: [facility] Work Phone: 03-15-2021 14:08-0400 Body temperature 97.6 [degF] Paullupe Chalino Anne Work Phone: [facility] Work Phone: 03-15-2021 14:08-0400 Body weight 126.55 kg Tye Anne Work Phone: [facility] Work Phone: 03-15-2021 14:08-0400 Diastolic blood pressure 67 mm[Hg] Tye Anne Work Phone: [facility] Work Phone: 03-15-2021 14:08-0400 Heart rate 79 /min Tye Anne Work Phone: [facility] Work Phone: 03-15-2021 14:08-0400 Respiratory rate 16 /min Tye Anne Work Phone: [facility] Work Phone: 03-15-2021 14:08-0400 Systolic blood pressure 149 mm[Hg] Tye Anne Work Phone: [facility] Work Phone: 01-19-2021 08:27-0400 Body height 185.4 cm Yaritza Luna CNP Work Phone: [facility] 01-19-2021 08:27-0400 Body mass index (BMI) [Ratio] 36.94 kg/m2 Yaritza Luna CNP Work Phone: [facility] 01-19-2021 08:27-0400 Body weight 127.01 kg Yaritza Luna CNP Work Phone: [facility] 01-07-2021 09:50-0400 Body temperature 97.9 [degF] Chintan Maldonado Jr., DPM Work Phone: [facility] 01-07-2021 09:50-0400 Diastolic blood pressure 72 mm[Hg] Chintan Maldonado Jr., DPM Work Phone: [facility] 01-07-2021 09:50-0400 Heart rate 58 /min Chintan Maldonado Jr., DPM Work Phone: [facility] 01-07-2021 09:50-0400 Systolic blood pressure 172 mm[Hg] Chintan Maldonado Jr., DPM Work Phone: [facility] 01-05-2021 09:11-0400 Body height 184.15 cm Tye Anne Work Phone: FP-Iomaidqgnv-Ojee [address] Work Phone: 01-05-2021 09:11-0400 Body mass index (BMI) [Ratio] 38.26 kg/m2 Tye Anne Work Phone: RA-Bqpyvxsdjm-Rkec and [address] Work Phone: 01-05-2021 09:11-0400 Body surface area Derived from formula 2.49 m2 Tye Anne Work Phone: MX-Hdaoqqhvtn-Xqdw and [address] Work Phone: 01-05-2021 09:11-0400 Body temperature 96.8 [degF] Tye Allred Anne Work Phone: BP-Sninsrxanr-Timj and [address] Work Phone: 01-05-2021 09:11-0400 Body weight 129.76 kg Tye Anne Work Phone: ZT-Wvilfkqwkq-Ujpu and [address] Work Phone: 01-05-2021 09:11-0400 Diastolic blood pressure 50 mm[Hg] Paullupe Chalino Anne Work Phone: XO-Xcgnhulodr-Etom [address] Work Phone: 01-05-2021 09:11-0400 Heart rate 59 /min Paullupe Chalino Anne Work Phone: TC-Zkyxcdopoa-Kguc and [address] Work Phone: 01-05-2021 09:11-0400 SaO2% (BldA) [Mass fraction] 98 % Tye Anne Work Phone: KI-Zxvuqykdxp-Nsho and [address] Work Phone: 01-05-2021 09:11-0400 Systolic blood pressure 140 mm[Hg] Paullupe Chalino Anne Work Phone: EY-Bfoytbufow-Rehb [address] Work Phone: 11-10-2020 09:35-0400 Body height 185.4 cm Chintan Maldonado Jr. DPM Work Phone: [facility] 11-10-2020 09:35-0400 Body mass index (BMI) [Ratio] 36.94 kg/m2 Chintan Maldonado Jr. DPM Work Phone: [facility] 11-10-2020 09:35-0400 Body weight 127.01 kg Chintan Maldonado Jr. DPM Work Phone: [facility] 10-27-2020 08:59-0400 Body height 188 cm Yaritza Luna BUTCHER HELPER Work Phone: [facility] 10-27-2020 08:59-0400 Body mass index (BMI) [Ratio] 35.31 kg/m2 Yaritza Luna CNP Work Phone: [facility] 10-27-2020 08:59-0400 Body weight 124.74 kg Yaritza Luna CNP Work Phone: [facility] 08-14-2019 14:30-0500 BMI (Body Mass Index) 36.98 kg/m2 Yaritza Luna [facility] 08-14-2019 14:30-0500 Body weight 130.64 kg Yaritza Luna [facility] 08-14-2019 14:30-0500 Height 188 cm Yaritza Luna [facility] 07-01-2019 12:04-0500 BMI (Body Mass Index) 39.81 kg/m2 Tye Anne [facility] Work Phone: 07-01-2019 12:04-0500 Body weight 133.13 kg Tye Anne -[facility] Work Phone: 07-01-2019 12:04-0500 BP Diastolic 64 mm[Hg] Tye Anne -[facility] Work Phone: Comment on above: Location: E; 07-01-2019 12:04-0500 BP Systolic 128 mm[Hg] Tye Anne -[facility] Work Phone: Comment on above: Location: E; 07-01-2019 12:04-0500 BSA (Body Surface Area) 2.51 m2 Tye Anne [facility] Work Phone: 07-01-2019 12:04-0500 Height 182.88 cm Tye Anne -[facility] [employer] [facility] Work Phone: 07-01-2019 12:04-0500 Pulse (Heart Rate) 60 /min Tye Anne [facility] Work Phone: 07-01-2019 12:04-0500 Pulse Oximetry 93 % Tye Anne [facility] Work Phone: 07-29-2018 07:31-0500 BMI (Body Mass Index) 36.98 kg/m2 Elías Hsu [facility] 07-29-2018 07:31-0500 Height 188 cm Elías Hsu [facility] 07-29-2018 07:31-0500 Weight 130.64 kg Elías Hsu [facility] 03-14-2018 11:49-0400 Body Temperature 97.9 [degF] Kailey Hilton [facility] 03-14-2018 11:49-0400 BP Diastolic 63 mm[Hg] Kailey Hilton [facility] 03-14-2018 11:49-0400 BP Systolic 105 mm[Hg] Kailey Hilton [facility] 03-14-2018 11:49-0400 Pulse (Heart Rate) 66 /min Kailey Hilton [facility] 03-14-2018 11:49-0400 Pulse Oximetry 94 % Kailey Hilton [facility] 03-14-2018 11:49-0400 Respiratory Rate 16 /min Kailey Hilton [facility] 03-13-2018 17:38-0400 BMI (Body Mass Index) 37 kg/m2 Kailey Hilton [facility] 03-13-2018 17:38-0400 Height 188 cm Kailey Hilton [facility] 03-13-2018 17:38-0400 Weight 130.7 kg Kailey Hilton [facility] 03-06-2017 09:16-0400 BMI (Body Mass Index) 35.95 kg/m2 Elías Hsu [facility] Work Phone: 03-06-2017 09:16-0400 Height 188 cm Elías Hsu [facility] Work Phone: 03-06-2017 09:16-0400 Weight 127.01 kg Elías Hsu [facility] Work Phone: Encounters Encounter Date Encounter Type Care Provider Facility Start: 06-26-2025 ambulatory Santi Anne Facilit y:[facility] Start: 05-11-2025 ambulatory Santi Anne Facilit y:[facility] Start: 05-01-2025 End: 05-01-2025 Office outpatient visit 25 minutes Tye Anne MD Work Phone: [facility] Comment on above: Type 2 diabetes tristin itus without 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, without long- term current use of insulin (Multi) (Primary Dx); Orthostatic hypotension; Chronotropic incompetence; Chronic diastolic congestive heart failure (Multi); Obstructive sleep apnea on CPAP; Benign prostatic hyperplasia without lower urinary tract symptoms; Hypertension, essential, benign; Mixed hyperlipidemia; Permanent atrial fibrillation (Multi); Hypogonadism in male Start: 05-01-2025 End: 05-01-2025 ambulatory [facility] Start: 04-30-2025 End: 04-30-2025 ambulatory [facility] Start: 04-27-2025 End: 04-27-2025 Office outpatient visit 15 minutes Nayeli Flores RECORDS MANAGEMENT CLERK-BUTCHER HELPER Work Phone: [facility] Comment on above: 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; Lumbar radiculopathy; Cervical radiculitis Start: 04-27-2025 End: 04-27-2025 ambulatory NAYELI Callejas MALDONADO [facility] Start: 04-16-2025 End: 04-16-2025 Office outpatient visit 25 minutes Octavio Marmolejo RECORDS MANAGEMENT CLERK-BUTCHER HELPER Work Phone: [facility] Comment on above: Chronic systolic (co ngestive) heart failure (Multi) (Primary Dx); Heart failure with mid-range ejection fraction (HFmEF) (Multi); Primary hypertension Start: 04-16-2025 End: 04-16-2025 ambulatory [facility] Start: 04-02-2025 End: 04-02-2025 ambulatory [facility] Start: 03-12-2025 End: 03-12-2025 Patient encounter procedure Dione TURNER -[facility] Work Phone: Start: 03-12-2025 End: 03-12-[address] Santi Anne MD Work Phone: -[facility] Start: 03-04-2025 End: 03-04-2025 Patient encounter procedure Chintan Maldonado DPM Work Phone: [facility] Comment on above: Onychomycosis (Prima ry Dx); Peripheral vascular disease, unspecified Start: 03-04-2025 End: 03-04-2025 ambulatory CHINTAN MALDONADO JR. [facility] Start: 02-10-2025 End: 02-10-2025 Subsequent hospital visit by physician Darryl Munoz 3 Device Remote [facility] 3 Comment on above: Arrived Start: 02-10-2025 End: 02-10-2025 ambulatory [facility] Start: 02-06-2025 End: 02-06-2025 ambulatory CHINTAN MALDONADO JR. [facility] Start: 02-06-2025 End: 02-06-2025 Office outpatient visit 15 minutes Chintan Maldonado DPM Work Phone: [facility] Comment on above: Onychomycosis (Prima ry Dx); Peripheral vascular disease, unspecified Start: 01-29-2025 End: 01-29-2025 Subsequent hospital visit by physician Vito Mercado 1 [facility] Comment on above: SSS (sick sinus synd greg) (Multi); Shortness of breath on exertion Start: 01-29-2025 End: 01-29-2025 ambulatory [facility] Start: 01-29-2025 End: 01-29-2025 Office outpatient visit 15 minutes Tye Anne MD Work Phone: [facility] Comment on above: Type 2 diabetes tristin itus without 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, without long- term current use of insulin (Primary Dx); Orthostatic hypotension; Chronotropic incompetence; Chronic diastolic congestive heart failure; Obstructive sleep apnea on CPAP; Benign prostatic hyperplasia without lower urinary tract symptoms; Hypertension, essential, benign; Mixed hyperlipidemia; Permanent atrial fibrillation (Multi); Screening for prostate cancer Start: 01-29-2025 End: 01-29-2025 ambulatory [facility] Start: 01-26-2025 End: 01-26-2025 Office outpatient visit 15 minutes Herman Naidu MD Work Phone: [facility] Comment on above: Thyroid nodule (Prim finn Dx); Abnormal thyroid function test Start: 01-26-2025 End: 01-26-2025 ambulatory TYE BONNER [facility] Start: 01-15-2025 End: 01-15-2025 Office outpatient visit 25 minutes Aravind Jimenez MD Work Phone: [facility] Comment on above: Subclavian vein sten osis (Primary Dx); Gastroesophageal reflux disease without esophagitis; SSS (sick sinus syndrome) (Multi); Persistent atrial fibrillation (Multi); Permanent atrial fibrillation (Multi); Pacing-induced cardiomyopathy (Multi); Heart failure with mildly reduced ejection fraction (HFmrEF); Bradycardia; Shortness of breath on exertion Start: 01-15-2025 End: 01-15-2025 ambulatory [facility] Start: 12-26-2024 End: 12-26-2024 Office outpatient visit 25 minutes Tye Anne MD Work Phone: [facility] Comment on above: Chronotropic incompe tence (Primary Dx); Orthostatic hypotension; 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, without long-term current use of insulin; Chronic diastolic congestive heart failure Start: 12-26-2024 End: 12-26-2024 ambulatory [facility] Start: 12-17-2024 End: 12-17-2024 Emergency department patient visit Sammy Andrew DO Work Phone: [facility] Comment on above: Orthostatic hypotens ion (Primary Dx) Start: 12-17-2024 End: 12-17-2024 Office outpatient visit 5 minutes Urmila Galloway RECORDS MANAGEMENT CLERK-BUTCHER HELPER Work Phone: [facility] Comment on above: Dizziness (Primary D x) Start: 12-17-2024 End: 12-17-2024 ambulatory BICKLETON Chalino [facility] Start: 12-03-2024 End: 12-03-2024 Patient encounter procedure Chintan Maldonado DPM Work Phone: [facility] Comment on above: Onychomycosis (Prima ry Dx); Peripheral vascular disease, unspecified Start: 12-03-2024 End: 12-03-2024 ambulatory CHINTAN MALDONADO JR. [facility] Start: 12-02-2024 End: 12-02-2024 ambulatory TYE BONNER [facility] Start: 11-25-2024 End: 11-25-2024 Patient encounter procedure Urmila Galloway RECORDS MANAGEMENT CLERK-BUTCHER HELPER Work Phone: [facility] Comment on above: Tinea cruris (Primar y Dx) Start: 11-25-2024 End: 11-25-2024 ambulatory [facility] Start: 11-11-2024 End: 11-11-2024 Office outpatient visit 25 minutes Aravind Jimenez MD Work Phone: [facility] Comment on above: Subclavian vein sten osis (Primary Dx); Persistent atrial fibrillation (Multi); Sick sinus syndrome (Multi); SSS (sick sinus syndrome) (Multi); Permanent atrial fibrillation (Multi); Mixed hyperlipidemia; Heart failure with mildly reduced ejection fraction (HFmrEF); Hypertension, essential, benign Start: 11-11-2024 End: 11-11-2024 Subsequent hospital visit by physician Vito Jimenez [facility] Comment on above: Encounter for adjust ment and management of automatic implantable cardiac defibrillator Start: 11-11-2024 End: 11-11-2024 ambulatory ARAVIND JIMENEZ [facility] Start: 11-06-2024 End: 11-06-2024 Assay of hemosiderin, quant Tye Anne MD Work Phone: [facility] Work Phone: Start: 11-06-2024 End: 11-06-2024 Patient encounter procedure Tye Anne MD Work Phone: [facility] Comment on above: Routine general medi hardik examination at health care facility (Primary Dx); 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 stenosis; Sacroiliitis (CMS-HCC); Generalized osteoarthritis of multiple sites; Chronic bilateral low back pain with bilateral sciatica; Osteoarthritis of spine with radiculopathy, lumbosacral region; Gastroesophageal reflux disease without esophagitis; Hypertension, essential, benign; Mixed hyperlipidemia; 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, without long-term current use of insulin; Permanent atrial fibrillation (Multi); Low testosterone in male; Chronic diastolic congestive heart failure; Chronic idiopathic constipation; Screening for prostate cancer Start: 11-06-2024 End: 11-06-2024 ambulatory [facility] Start: 11-06-2024 End: 11-06-2024 Encounter for general adult medical examination without abnormal findings [facility] Start: 10-29-2024 End: 10-29-2024 ambulatory [facility] Start: 10-29-2024 End: 10-29-2024 Office outpatient visit 25 minutes Tye Anne MD Work Phone: [facility] Comment on above: Hypertension, essent ial, benign (Primary Dx); Permanent atrial fibrillation (Multi); Heart failure with mildly reduced ejection fraction (HFmrEF); 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, without long-term current use of insulin; Gastroesophageal reflux disease without esophagitis; Other fatigue; Esophageal perforation Start: 10-28-2024 End: 10-28-2024 Subsequent hospital visit by physician Rad External Film EF RAD EXTERNAL [facility] Comment on above: Arrived Start: 10-28-2024 End: 10-28-2024 [facility] Start: 10-28-2024 End: 10-28-2024 Subsequent hospital visit by physician Rad External Film EF [facility] EXTER[facility] Comment on above: Arrived Start: 10-28-2024 End: 10-28-2024 [facility] Start: 10-23-[facility]24 End: 10-23-2024 Postop follow up visit related to original px Monserrat [facility] DO Work Phone: [facility] Comment on above: Esophageal perforati on (Primary Dx) Start: 10-23-2024 End: 10-23-2024 [facility] Start: 10-22-2024 ambulatory Jovany Friend Facility :[facility] Start: 10-22-2024 End: 10-22-2024 ambulatory Jovany Friend Facility:[facility] Start: 10-20-2024 End: 10-20-2024 Subsequent hospital visit by physician Zunilda Ferrell [facility] Comment on above: Encounter for adjust ment and management of automatic implantable cardiac defibrillator; Cardiomyopathy with implantable cardioverter-defibrillator Start: 10-20-2024 End: 10-20-2024 ambulatory [facility] Start: 10-20-2024 End: 10-20-2024 ambulatory Cristopher Chi Felix Facility:[facility] Start: 10-09-20[facility] Start: 10-08-2024 ambulatory Cristopher Chi Felix [facility] Start: 10-08-2024 End: 10-27-2024 Evaluation and management of inpatient Cristopher Chi Felix Facility:[facility] Start: 10-06-2024 End: 10-06-2024 ambulatory [facility] Start: 09-26-2024 End: 09-26-2024 Subsequent hospital visit by physician Eileen Portillo Or Anesthesia Antonietta [facility] [place] Comment on above: Arrived Start: 09-26-2024 End: 09-26-2024 [facility] Start: 09-26-2024 End: 10-08-2024 Evaluation and management of inpatient Aravind Jimenez MD Work Phone: [facility] [place] [facility] Start: 09-18-2024 End: 09-18-2024 Office outpatient visit 15 minutes Tye Anne MD Work Phone: [facility] Comment on above: Acute intractable he adache, unspecified headache type (Primary Dx) Start: 09-18-2024 End: 09-18-2024 ambulatory [facility] Start: 09-17-2024 End: 09-17-2024 ambulatory [facility] Start: 09-12-2024 End: 09-12-2024 Subsequent hospital visit by physician James Alves DO Work Phone: [facility] [place] Comment on above: Lumbar radiculopathy Start: 09-12-2024 End: 09-12-2024 ambulatory JAMES ALVES [facility] Start: 09-10-2024 End: 09-10-2024 Office outpatient visit 25 minutes Herman Naidu MD Work Phone: [facility] Comment on above: Abnormal thyroid fun ction test (Primary Dx); Lymph node enlargement Start: 09-10-2024 End: 09-10-2024 ambulatory TYE ANNE [facility] Start: 09-03-2024 End: 09-03-2024 Patient encounter procedure Chintan Maldonado DPM Work Phone: [facility] Comment on above: Onychomycosis (Prima ry Dx); Peripheral vascular disease, unspecified Start: 09-03-2024 End: 09-03-2024 ambulatory CHINTAN MALDONADO JR. [facility] Start: 08-31-2024 End: 08-31-2024 Orders Only Montygareth Julien [facility] Work Phone: [facility] Comment on above: Thyroid nodule (Prim finn Dx) Start: 08-28-2024 End: 08-28-2024 ambulatory MONTY MIRIAM JULIEN [facility] Start: 08-20-2024 End: 08-20-2024 Office outpatient visit 25 minutes Reggie Aragon PA-C Work Phone: [facility] Comment on above: Lumbar radiculopathy (Primary Dx); 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 stenosis; Spondylosis of lumbosacral region without myelopathy or radiculopathy; Prolapsed lumbar disc Start: 08-20-2024 End: 08-20-2024 ambulatory REGGIE ARAGON [facility] Start: 08-18-2024 End: 08-18-2024 ambulatory ARAVIND JIMENEZ [facility] Start: 08-18-2024 End: 08-18-2024 Subsequent hospital visit by physician Darryl Munoz 3 Device Remote [facility] 3 Comment on above: Cardiac pacemaker in situ; Sinoatrial node dysfunction (Multi) Start: 08-13-2024 End: 08-14-2024 ambulatory [facility] Start: 08-13-2024 End: 08-13-2024 [facility] Start: 08-13-2024 End: 08-13-2024 Subsequent hospital visit by physician Aravind Jimenez MD Work Phone: [facility] Comment on above: Heart failure with m ildly reduced ejection fraction (HFmrEF) (Primary Dx); Persistent atrial fibrillation (Multi); Pacing-induced cardiomyopathy (Multi); Permanent atrial fibrillation (Multi); Shortness of breath; Hypertension, essential, benign Arrived Start: 08-11-2024 End: 08-11-2024 Subsequent hospital visit by physician Fabiana [facility] Comment on above: Cardiac pacemaker in situ; Sinoatrial node dysfunction (Multi) Start: 08-11-2024 End: 08-11-2024 ambulatory [facility] Start: 08-11-2024 End: 08-11-2024 Subsequent hospital visit by physician Fabiana [facility] Comment on above: Pacemaker; Sick sinus syndrome (Multi) 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; Chronic bilateral low back pain with bilateral sciatica Start: 08-11-2024 End: 08-11-2024 ambulatory [facility] Start: 07-30-2024 End: 07-30-2024 ambulatory TYE [facility] Start: 07-28-2024 End: 07-28-2024 Office outpatient visit 25 minutes Octavio DELGADO Work Phone: [facility] Comment on above: Longstanding persist ent atrial fibrillation (Multi) (Primary Dx); Mixed hyperlipidemia; Hypertension, essential, benign; SSS (sick sinus syndrome) (Multi); Heart failure with mildly reduced ejection fraction (HFmrEF) Start: 07-28-2024 End: 07-28-2024 ambulatory [facility] Start: 07-22-2024 End: 07-23-2024 Orders Only Monty Julien BUTCHER HELPER Work Phone: [facility] Comment on above: Thyroid nodule (Prim finn Dx) Start: 07-20-2024 End: 07-20-2024 Emergency department patient visit SUSANA WELLER [facility] Start: 07-20-2024 End: 07-20-2024 ambulatory MONTY MIRIAM JULIEN [facility] Start: 07-17-2024 End: 07-17-2024 Office outpatient visit 25 minutes Reggie Aragon PA-C Work Phone: [facility] Comment on above: 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; Sacroiliitis ([facility]-HCC); Generalized osteoarthritis of multiple sites; Chronic bilateral low back pain with bilateral sciatica; Osteoarthritis of spine with radiculopathy, lumbosacral region Start: 07-17-2024 End: 07-17-2024 ambulatory REGGIE ARAGON [facility] Start: 07-16-2024 End: 07-16-2024 Office outpatient new 60 minutes Monty Julien CNP Work Phone: [facility] Comment on above: Thyrotoxicosis witho ut thyroid storm, unspecified thyrotoxicosis type (Primary Dx); Hyperthyroidism Start: 07-16-2024 End: 07-16-2024 ambulatory BICKLETON KAILEY [facility] Start: 07-04-2024 End: 07-04-2024 Transcribe Orders Monty Julien CNP Work Phone: [facility] Comment on above: Hyperthyroidism (Carolyne ida Dx) Start: 07-03-2024 End: 07-03-2024 ambulatory BICKLETON [facility] Start: 07-03-2024 End: 07-03-2024 ambulatory [facility] Start: 07-03-2024 End: 07-03-2024 Office outpatient visit 15 minutes Tye Anne MD [facility] Comment on above: Bronchitis (Primary Dx); 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, without long-term current use of insulin (Multi); Chronic diastolic congestive heart failure; Permanent atrial fibrillation (Multi); Gastroesophageal reflux disease without esophagitis; Benign prostatic hyperplasia without lower urinary tract symptoms; Chronic rhinitis; Mixed hyperlipidemia; Hyperthyroidism Start: 06-19-2024 End: 06-19-2024 ambulatory TYE [facility] Start: 06-12-2024 End: [facility]-13-[facility] Start: 06-12-[facility]24 End: 06-12-2024 Emergency department patient visit Robbin Flores MD Work Phone: [facility] Comment on above: Bronchitis (Primary Dx) Start: 06-12-2024 End: 06-12-2024 Erroneous Encounter Sole Johnathon Khanh RECORDS MANAGEMENT CLERK-BUTCHER HELPER Work Phone: [facility] Comment on above: Arrived Start: 06-09-2024 End: 06-09-2024 Subsequent hospital visit by physician Vito Mazariegos Admin Room 1 [facility] Comment on above: Arrived Bradycardia; Sinus node dysfunction (Multi); Hypertension, essential, benign; Hyperlipidemia; Shortness of breath on exertion; Other forms of dyspnea Bradycardia; Sinus node dysfunction (Multi); Hypertension, essential, benign; Hyperlipidemia; Shortness of breath on exertion Start: 06-09-2024 End: 06-09-2024 ambulatory ARAVIND [facility] Start: 06-04-2024 End: 06-04-2024 ambulatory CHINTAN MALDONADO JR. [facility] Start: 06-04-2024 End: 06-04-2024 Patient encounter procedure Chintan Maldonado DPM Work Phone: [facility] Comment on above: Onychomycosis (Prima ry Dx); Peripheral vascular disease, unspecified (HCC) Start: 05-30-2024 End: 06-02-2024 ambulatory TYE [facility] Start: 05-28-2024 End: 05-28-2024 Subsequent hospital visit by physician James Alves DO Work Phone: [facility] [place] Comment on above: Lumbar radiculopathy Start: 05-28-2024 End: 05-28-2024 ambulatory JAMES ALVES [facility] Start: 05-27-2024 End: 05-27-2024 Office outpatient visit 40 minutes Aravind Jimenez MD Work Phone: [facility] Comment on above: Sinus node dysfuncti on (Multi) (Primary Dx); Bradycardia; Permanent atrial fibrillation (Multi); Hypertension, essential, benign; Hyperlipidemia; Chronotropic incompetence; Other fatigue; Shortness of breath; Shortness of breath on exertion Start: 05-27-2024 End: 05-27-2024 ambulatory [facility] Start: 05-26-2024 End: 05-30-2024 ambulatory [facility] Start: 05-16-2024 End: 05-16-2024 ambulatory [facility] Start: 05-13-2024 End: 05-13-2024 Subsequent hospital visit by physician Vito X-Ray 1 [facility] Comment on above: Medication managemen t Start: 05-13-2024 End: 05-13-2024 ambulatory KATHY TREVIÑO [facility] Start: 05-13-2024 End: 05-13-2024 Encounter for other specified special examinations [facility] Start: 05-13-2024 End: 05-13-2024 Subsequent hospital visit by physician Vito Jimenez [facility] Comment on above: Pacemaker; Bradycardia Start: 05-13-2024 End: 05-13-2024 ambulatory [facility] Start: 05-09-2024 End: 05-09-2024 ambulatory [facility] Start: 05-09-2024 End: 05-09-2024 Office outpatient visit 25 minutes Tye Anne MD Work Phone: [facility] Comment on above: Type 2 diabetes tristin itus without 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, without long- term current use of insulin (Multi) (Primary Dx); 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 stenosis; Sacroiliitis ([facility]-HCC); Generalized osteoarthritis of multiple sites; Chronic bilateral low back pain with bilateral sciatica; Osteoarthritis of spine with radiculopathy, lumbosacral region; Gastroesophageal reflux disease without esophagitis; Hypertension, essential, benign; Mixed hyperlipidemia; Permanent atrial fibrillation (Multi); Low testosterone in male; Chronic diastolic congestive heart failure; Elevated PSA measurement; Peripheral arterial occlusive disease (CMS-HCC); Sinus node dysfunction (Multi) Start: 05-02-2024 End: 05-02-2024 ambulatory [facility] Start: 05-01-2024 End: 05-01-2024 Office outpatient visit 25 minutes Reggie Aragon PA-C Work Phone: [facility] Comment on above: Lumbar radiculopathy (Primary Dx); Chronic bilateral low back pain with bilateral sciatica; 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 stenosis; Spondylosis of lumbosacral region without myelopathy or radiculopathy; Prolapsed lumbar disc Start: 04-28-2024 End: 04-28-2024 Office outpatient visit 25 minutes Sheyla Schultz MD Work Phone: [facility] Comment on above: Generalized osteoart hritis of multiple sites (Primary Dx); Calcium pyrophosphate deposition disease; Chronic bilateral low back pain with bilateral sciatica; Spondylosis of lumbosacral region without myelopathy or radiculopathy; On colchicine therapy Start: 04-25-2024 End: 04-25-2024 ambulatory [facility] Start: 04-24-2024 End: 04-24-2024 Office outpatient visit 25 minutes Joel Stroud MD Work Phone: [facility] Comment on above: HFrEF (heart failure with reduced ejection fraction) (Primary Dx); Paroxysmal atrial fibrillation (Multi) Start: 04-08-2024 End: 04-08-2024 Subsequent hospital visit by physician Vito Mercado [address] [place] [address] Comment on above: Atrial fibrillation, unspecified type (Multi); Bradycardia; Sinus node dysfunction (Multi); Chronic heart failure with normal ejection fraction; Unspecified systolic (congestive) heart failure Start: 03-28-2024 End: 03-28-2024 Subsequent hospital visit by physician James Alves DO Work Phone: [facility] [place] Comment on above: Lumbar radiculopathy Start: 03-18-2024 End: 03-18-2024 Subsequent hospital visit by physician Darryl Munoz 3 Device Remote [facility] Building 3 Comment on above: Cardiac pacemaker in situ; Sinoatrial node dysfunction (Multi) Start: 03-18-2024 End: [facility]18[facility] Start: 03-13-[facility]24 End: 03-13-2024 Office outpatient visit 25 minutes Joel Stroud MD Work Phone: [facility] Comment on above: Bradycardia (Primary Dx); Atrial fibrillation, unspecified type (Multi); Sinus node dysfunction (Multi); Chronic heart failure with normal ejection fraction (Multi) Start: 03-06-2024 End: 03-06-2024 Office outpatient visit 25 minutes Reggie Aragon PA-C Work Phone: [facility] Comment on above: Lumbar radiculopathy (Primary Dx); 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 stenosis; Spondylosis of lumbosacral region without myelopathy or radiculopathy; History of left knee replacement; Chronic bilateral low back pain with bilateral sciatica; Chronic pain of left knee Start: 03-05-2024 End: 03-05-2024 Patient encounter procedure Chintan Maldonado DPM Work Phone: [facility] Comment on above: Onychomycosis (Prima ry Dx); Peripheral vascular disease, unspecified (HCC) Start: 01-25-2024 End: 01-25-2024 ambulatory TYE ANNE [facility] Start: 01-21-2024 End: 01-21-2024 Orders Only Elke Reese LPN [facility] Comment on above: Spinal stenosis of l umbar region, 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 neurogenic claudication present (Primary Dx); Lumbosacral radiculopathy Start: 01-17-2024 End: 01-17-2024 Office outpatient visit 15 minutes Elías Hsu MD Work Phone: [facility] Comment on above: History of total lef t knee replacement (Primary Dx) Start: 01-10-2024 End: 01-10-2024 Office outpatient visit 15 minutes Reggie Aragon PA-C Work Phone: [facility] Comment on above: 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 (Primary Dx); Sacroiliitis (CMS-HCC); Chronic bilateral low back pain with bilateral sciatica; Lumbar radiculopathy; Spondylosis of lumbosacral region without myelopathy or radiculopathy; Chronic pain of left knee; History of left knee replacement Start: 12-07-2023 End: 12-07-2023 Subsequent hospital visit by physician James Alves DO Work Phone: [facility] [place] Comment on above: Lumbar radiculopathy ; 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 stenosis; Sacroiliitis (CMS-HCC); Generalized osteoarthritis of multiple sites; Chronic bilateral low back pain with bilateral sciatica; Osteoarthritis of spine with radiculopathy, lumbosacral region Arrived Lumbar radiculopathy ; 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 stenosis; Sacroiliitis; Generalized osteoarthritis of multiple sites; Chronic bilateral low back pain with bilateral sciatica; Osteoarthritis of spine with radiculopathy, lumbosacral region Start: 12-05-2023 End: 12-05-2023 Office outpatient visit 15 minutes Chintan Maldonado DPM Work Phone: [facility] Comment on above: Diabetic polyneuropa thy associated with type 2 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 (HCC) (Primary Dx); Onychomycosis; Peripheral vascular disease, unspecified (HCC) Start: 11-21-2023 End: 11-21-2023 Office outpatient visit 40 minutes Sheyla Schultz MD Work Phone: [facility] Comment on above: Generalized osteoart hritis of multiple sites (Primary Dx); Calcium pyrophosphate deposition disease; Chronic bilateral low back pain with bilateral sciatica; Spondylosis of lumbosacral region without myelopathy or radiculopathy Start: 11-20-2023 End: 11-20-2023 Office outpatient visit 15 minutes Yaritza Luna BUTCHER HELPER Work Phone: [facility] Comment on above: History of total lef t knee replacement (Primary Dx) Start: 11-19-2023 End: 11-19-2023 Office outpatient visit 25 minutes Octavio Marmolejo APRN-BUTCHER HELPER Work Phone: [facility] Comment on above: Atrial fibrillation, unspecified type (Multi) (Primary Dx); Chronic diastolic congestive heart failure (Multi) Start: 11-16-2023 End: 11-16-2023 ambulatory TYE ANNE [facility] Start: 10-31-2023 End: 10-31-2023 Assay of hemosiderin, quant Tye Anne MD Work Phone: [facility] Work Phone: Start: 10-31-2023 End: 10-31-2023 Patient encounter procedure Tye Anne MD Work Phone: [facility] Comment on above: Routine general medi hardik examination at health care facility (Primary Dx); Chronic diastolic congestive heart failure (Multi); Mixed hyperlipidemia; Hypertension, essential, benign; Mild CAD; Peripheral arterial occlusive disease (CMS-HCC); Permanent atrial fibrillation (Multi); 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, without long-term current use of insulin (Multi); Gastroesophageal reflux disease without esophagitis; Benign prostatic hyperplasia without lower urinary tract symptoms; Major depressive disorder, single episode, in partial remission (CMS-HCC); Sacroiliitis (CMS-HCC); ALISHA on CPAP; Low testosterone; Chronic rhinitis; 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 stenosis; Generalized osteoarthritis of multiple sites; Chronic bilateral low back pain with bilateral sciatica; Osteoarthritis of spine with radiculopathy, lumbosacral region; Low testosterone in male Start: 10-23-2023 End: 10-23-2023 Subsequent hospital visit by physician Vito Jimenez [facility] Comment on above: Bradycardia; Pacemaker; Sinus node dysfunction (Multi) Chronic diastolic co ngestive heart failure (Multi) Start: 10-18-2023 End: 10-18-2023 Office outpatient visit 25 minutes Reggie Aragon PA-C Work Phone: [facility] Comment on above: Lumbar radiculopathy (Primary Dx); Prolapsed lumbar disc; 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 stenosis; Cervical radiculitis; Cervical spondylosis Start: 09-25-2023 End: 09-25-2023 Subsequent hospital visit by physician Darryl Munoz 3 Device Remote [facility] 3 Comment on above: Cardiac pacemaker in situ; Sinoatrial node dysfunction (CMS/HCC) Start: 09-24-2023 End: 09-24-2023 ambulatory [facility] Start: 09-24-2023 End: 09-24-2023 Subsequent hospital visit by physician Fabiana Kelly [facility] Comment on above: Lumbar radiculopathy ; 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 stenosis; Cervical radiculitis Cardiac pacemaker in situ; Sinoatrial node dysfunction (CMS/HCC) Pacemaker; Sick sinus syndrome (CMS/HCC) Start: 09-11-2023 End: 09-11-2023 Office outpatient visit 15 minutes Tye Anne MD Work Phone: [facility] Comment on above: Skin tear of right e lbow without 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, subsequent encounter (Primary Dx); Chronic diastolic congestive heart failure (CMS/HCC); 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, without long-term current use of insulin (CMS/HCC); Low testosterone in male; ALISHA on CPAP Start: 09-06-2023 End: 09-06-2023 Emergency department patient visit TYE ANNE [facility] Start: 09-04-2023 End: 09-04-2023 Office outpatient visit 15 minutes Reggie Aragon PA-C Work Phone: [facility] Comment on above: Lumbar radiculopathy (Primary Dx); 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 stenosis; Cervical spondylosis; Cervical radiculitis; Sacroiliitis (CMS/HCC); Generalized osteoarthritis of multiple sites; Chronic bilateral low back pain with bilateral sciatica; Osteoarthritis of spine with radiculopathy, lumbosacral region Start: 08-27-2023 End: 08-27-2023 Subsequent hospital visit by physician Fabiana Kelly 1 [facility] Comment on above: Cervical radiculitis Pacemaker; Sick sinus syndrome (CMS/HCC) Cardiac pacemaker in situ; Sinoatrial node dysfunction (CMS/HCC) Start: 2023 End: 2023 Patient encounter procedure Chintan Maldonado DPM Work Phone: [facility] Comment on above: Onychomycosis (Prima ry Dx); Peripheral vascular disease, unspecified (HCC) Start: 08-07-2023 End: 08-07-2023 Subsequent hospital visit by physician Vito X-Ray Fluoro 1 [facility] Comment on above: Bilateral hip pain Chronic right should er pain; Arthritis of right shoulder region Chronic right-sided low back pain without sciatica Cervical radiculitis Start: 08-07-2023 End: 08-07-2023 Office outpatient visit 25 minutes Reggie Aragon PA-C Work Phone: [facility] Comment on above: Cervical radiculitis (Primary Dx); Chronic right shoulder pain; Arthritis of right shoulder region; Chronic right-sided low back pain without sciatica; Bilateral hip pain; Generalized osteoarthritis of multiple sites; Chronic bilateral low back pain with bilateral sciatica; 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 stenosis; Sacroiliitis (CMS/HCC); Osteoarthritis of spine with radiculopathy, lumbosacral region Start: 07-26-2023 End: 07-26-2023 Office outpatient visit 15 minutes Tye Anne MD Work Phone: [facility] Comment on above: Hypertension, essent ial, benign (Primary Dx); Dizziness; Chronic fatigue; 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, without long-term current use of insulin (CMS/HCC); Low testosterone in male Start: 07-24-2023 End: 07-24-2023 ambulatory Tye Anne MD Work Phone: [facility] Comment on above: Dizziness (Primary D x) Start: 07-19-2023 End: 07-19-2023 ambulatory Tye Anne MD Work Phone: [facility] Comment on above: Dizziness (Primary D x) Start: 07-17-2023 End: 07-17-2023 ambulatory Tye Anen MD Work Phone: [facility] Comment on above: Dizziness (Primary D x); Chronic fatigue Start: 07-10-2023 End: 07-10-2023 ambulatory Tye Anne MD Work Phone: [facility] Comment on above: Chronic fatigue (Carolyne ida Dx); Dizziness Start: 07-03-2023 End: 07-03-2023 ambulatory Tye Anne MD Work Phone: [facility] Comment on above: Chronic fatigue [R53 .82] (Primary Dx); Dizziness [R42] Start: 06-21-2023 End: 06-21-2023 ambulatory Tye Anne MD Work Phone: [facility] Comment on above: Dizziness; Chronic fatigue Start: 06-13-2023 End: 06-13-2023 Office outpatient visit 25 minutes Tye Anne MD Work Phone: [facility] Comment on above: Dizziness (Primary D x); Chronic fatigue; Chronic diastolic congestive heart failure (CMS/HCC); Hypertension, essential, benign; Permanent atrial fibrillation (CMS/HCC) Start: 05-23-2023 End: 05-23-2023 Office outpatient visit 25 minutes Sheyla Schultz MD Work Phone: [facility] Comment on above: Calcium pyrophosphat e deposition disease (Primary Dx); Generalized osteoarthritis of multiple sites; Chronic bilateral low back pain with bilateral sciatica; Spondylosis of lumbosacral region without myelopathy or radiculopathy Start: 05-03-2023 End: 05-03-2023 Office outpatient visit 15 minutes Reggie Aragon PA-C Work Phone: [facility] Comment on above: Generalized osteoart hritis of multiple sites (Primary Dx); Chronic bilateral low back pain with bilateral sciatica; 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 stenosis; Sacroiliitis (CMS/HCC); Osteoarthritis of spine with radiculopathy, lumbosacral region Start: 04-30-2023 End: 04-30-2023 Office outpatient visit 25 minutes Tye Anne MD Work Phone: [facility] Comment on above: Type 2 diabetes tristin itus without 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, without long- term current use of insulin (CMS/HCC) (Primary Dx); Chronic diastolic congestive heart failure (CMS/HCC); Mixed hyperlipidemia; Hypertension, essential, benign; Mild CAD; Peripheral arterial occlusive disease (CMS/HCC); Permanent atrial fibrillation (CMS/HCC); Gastroesophageal reflux disease without esophagitis; Benign prostatic hyperplasia without lower urinary tract symptoms; Major depressive disorder, single episode, in partial remission (CMS/HCC); Sacroiliitis (CMS/HCC); ALISHA on CPAP; Low testosterone; Sinus node dysfunction (CMS/HCC); Low testosterone in male Start: 04-30-2023 End: 04-30-2023 Patient encounter procedure Yaritza Luna CNP Work Phone: [facility] Comment on above: Primary osteoarthrit is of right knee (Primary Dx) Start: 04-12-2023 End: 04-12-2023 Office outpatient new 30 minutes Trey Georges DO Work Phone: [facility] Comment on above: Excessive cerumen in right ear canal (Primary Dx) Start: 03-27-2023 End: 03-27-2023 Office outpatient visit 15 minutes Tye Anne MD Work Phone: [facility] Comment on above: Mixed hyperlipidemia (Primary Dx); Gastroesophageal reflux disease without esophagitis; Hypertension, essential, benign; Permanent atrial fibrillation (CMS/HCC); Benign prostatic hyperplasia without lower urinary tract symptoms; Major depressive disorder, single episode, in partial remission (CMS/HCC); COVID-19 Start: 03-21-[address] Dominick Mantilla Facility:[id number] Start: 03-16-2023 End: 03-16-2023 Emergency department patient visit Simi Bray [facility] Emergency Start: 02-28-2023 Documentation procedure Elo Burt LPN [facility] Start: 02-12-2023 Office outpatient vi sit 10 minutes Tye Anne Work Phone: CM-Wmdvqasbamij-A [place] [address] DO Work Phone: Start: 02-12-2023 Patient encounter procedure Tye Anne Work Phone: BB-Bdwcjkpfecis-C [place] [address] DO Work Phone: Start: 02-10-2023 End: 02-10-2023 Emergency department patient visit Zoraida Diana [facility] Emergency 02 Start: 02-05-2023 Patient encounter procedure Tye Anne Work Phone: [facility] Work Phone: Start: 02-05-[address] Susana Martinez tthew Zsissy Facility:[id number] Start: 02-02-2023 End: 02-02-2023 Postop follow up visit related to original px Elías Hsu MD Work Phone: [facility] Comment on above: Olecranon bursitis o f left elbow (Primary Dx) Start: 02-02-2023 End: 02-02-2023 Patient encounter procedure Chintan Maldonado DPM Work Phone: [facility] Comment on above: Onychomycosis (Prima ry Dx); Peripheral vascular disease, unspecified (HCC) Start: 01-26-[address] Santi Anne Facility:[id number] Start: 01-26-2023 Patient encounter procedure Tye Anne Work Phone: BQ-Liwvaqsnoatr-Srnhefdo A 2480 DO Work Phone: Start: 01-17-[address] 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 (Primary Dx) Start: 12-21-2022 Admission to [facility] Elías Hsu MD Work Phone: [facility] Comment on above: Olecranon bursitis o f left elbow (Primary Dx) Start: 12-14-2022 End: 12-14-2022 Office outpatient visit 10 minutes Yaritza Luna CNP Work Phone: [facility] Comment on above: Olecranon bursitis o f left elbow (Primary Dx) Start: 12-07-2022 End: 12-07-2022 Office outpatient visit 15 minutes Tye Anne MD Work Phone: [facility] Comment on above: Chronic rhinitis (Pr imary Dx); Dizziness Start: 11-07-2022 Orders Only Elo Burt [facility] Comment on above: Olecranon bursitis o f left elbow (Primary Dx) Start: 11-07-2022 End: 11-07-2022 Office outpatient visit 15 minutes Yaritza Luna CNP Work Phone: [facility] Comment on above: Olecranon bursitis o f left elbow (Primary Dx) Start: 11-06-2022 Patient encounter procedure Tye Anne Work Phone: [facility] Work Phone: Start: 11-06-[address] Susana Martinez [facility] Facility:[id number] Start: 11-03-2022 ambulatory Ms. 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 (Primary Dx); Olecranon bursitis of left elbow; Right wrist pain Start: 10-03-2022 Patient encounter procedure Tye Anne Work Phone: [facility] Work Phone: Start: 10-03-2022 ambulatory Jeolsofy Churchsain Facilit y:[id number] Start: 09-19-2022 End: 09-19-2022 Office outpatient visit 25 minutes Yaritza Miriam Luna BUTCHER HELPER Work Phone: [facility] Comment on above: Olecranon bursitis o f left elbow (Primary Dx); Arthritis of carpometacarpal (CMC) joint of both thumbs Start: 09-15-2022 AUDIT Tye Anne Work Phone: [facility] [employer] Work Phone: Start: 08-31-2022 Office outpatient vi sit 25 minutes Tye Anne Work Phone: KL-Qcjczlgtco-Jwpatlq 350 tic Work Phone: Start: 08-25-2022 End: 08-26-2022 Emergency department patient visit Anoop Nascimento [facility] Emergency 09 Start: 08-23-2022 ambulatory Joel Maximus Facilit y:[id number] Start: 08-21-2022 AUDIT Tye Anne Work Phone: [facility] Work Phone: Start: 08-07-2022 Patient encounter procedure Tye Anne Work Phone: [facility] Work Phone: Start: 08-07-[address] Santi Anne Facility:[id number] Start: 08-04-2022 End: 08-04-2022 Patient encounter procedure Chintan Maldonado DPM Work Phone: [facility] Comment on above: Diabetic polyneuropa thy associated with type 2 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 (HCC) (Primary Dx); Onychomycosis Olecranon bursitis o f left elbow (Primary Dx) Start: 08-01-2022 Refill Elo Burt LEAK DETECTION ENGINEER [facility] Comment on above: Olecranon bursitis o f left elbow (Primary Dx) Start: 08-01-2022 End: 08-01-2022 Office outpatient visit 15 minutes Yaritza Luna CNP Work Phone: [facility] Comment on above: Olecranon bursitis o f left elbow (Primary Dx) Start: 07-26-2022 Chart Update Tye Anne Work Phone: [facility] Work Phone: Start: 07-25-[address] Santi Anne Facility:[id number] Start: 07-24-2022 AUDIT Tye Anne Work Phone: [facility] Work Phone: Start: 07-24-2022 Patient encounter procedure Tye Anne Work Phone: [facility] Work Phone: Start: 07-24-2022 ambulatory Brandon Thal Facility:A Start: 07-23-2022 AUDIT Tye Anne Work Phone: [facility] Work Phone: Start: 07-12-2022 Chart Update Tye Anne Work Phone: [facility] Work Phone: Start: 07-10-[address] Santi Anne Facility:[id number] Start: 07-10-2022 Adv care pln tlkd & alt dcsn maker docd Tye Anne Work Phone: [facility] Work Phone: Start: 07-04-2022 Chart Update Tye Anne Work Phone: [facility] Work Phone: Start: 06-29-2022 AUDIT Tye Anne Work Phone: [facility] Work Phone: Start: 06-13-2022 End: 06-14-2022 ambulatory Abelino Miranda Facility:[facility] Start: 05-31-2022 ambulatory Joel Stroud Facilit y:[id number] Start: 05-11-2022 Office outpatient vi sit 25 minutes Tye Anne Work Phone: ZB-Upqaznwzsd-Lmnnkqq 100 Work Phone: Start: 05-05-2022 End: 05-05-2022 Patient encounter procedure Chintan SANDERSONM Work Phone: [facility] Comment on above: Diabetic polyneuropa thy associated with type 2 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 (HCC) (Primary Dx); Peripheral vascular disease, unspecified (HCC); Onychomycosis Start: 04-28-[address] Santi Anne Facility:[id number] Start: 04-17-[address] Santi Anne Facility:[id number] Start: 04-17-2022 AUDIT Tye Anne Work Phone: KS-Lpqoxhcjas-Foxgatw [address] [place] Work Phone: Start: 04-17-[address] Santi Anne Facility:[id number] Start: 04-10-2022 Patient encounter procedure Tye Anne Work Phone: [facility] Work Phone: Start: 04-10-[address] Santi Anne Facility:[id number] Start: 03-15-2022 Office outpatient vi sit 25 minutes Tye Anne Work Phone: [facility] Work Phone: Start: 03-13-2022 Chart Update Tye Anne Work Phone: [facility] Work Phone: Start: 03-07-[address] [id number] Start: 03-07-2022 ambulatory Joel Stern y:[id number] Start: 02-28-[address] Susana Martinez [facility] Facility:[id number] Start: 02-28-2022 Patient encounter procedure Tye Anne Work Phone: [facility] Work Phone: Start: 02-24-2022 End: 02-24-2022 Office outpatient visit 10 minutes Chintan Maldonado DPM Work Phone: [facility] Comment on above: Tinea pedis of right foot (Primary Dx); Peripheral vascular disease, unspecified (HCC); Onychomycosis Start: 02-23-2022 Office outpatient vi sit 25 minutes Tye Anne Work Phone: MX-Aafcaipthl-Lxdfmzj [address] [place] Work Phone: Start: 02-13-2022 AUDIT Tye Anne Work Phone: VH-Clnkcufbba-Jpdvnxu 100 Work Phone: Start: 01-19-2022 Office outpatient vi sit 25 minutes Tye Anne Work Phone: AF-Psyoaupukh-Hfpjhvs Work Phone: Start: 01-05-2022 Office outpatient vi sit 25 minutes Tye Anne Work Phone: [facility] Work Phone: Start: 12-30-2021 Chart Update Tye Anne Work Phone: [facility] Work Phone: Start: 12-13-2021 End: 12-14-2021 [facility] Start: 12-12-2021 Chart Update Tye Anne Work Phone: [facility] Work Phone: Start: 12-07-2021 Office outpatient vi sit 15 minutes Tye Anne Work Phone: [facility] Work Phone: Start: 11-24-2021 End: 11-24-2021 Emergency department patient visit Zoraida Diana [facility] Emergency Start: 11-16-2021 AUDIT Tye Anne Work Phone: [facility] Work Phone: Start: 11-11-2021 End: 11-11-2021 Office outpatient visit 15 minutes Chintan Maldonado DPM Work Phone: [facility] Comment on above: Diabetic polyneuropa thy associated with type 2 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 (HCC) (Primary Dx); Onychomycosis; Peripheral vascular disease, unspecified (HCC) Start: 10-27-2021 AUDIT Tye Anne Work Phone: [facility] Work Phone: Start: 09-29-2021 AUDIT Tye Anne Work Phone: [facility] Work Phone: Start: 09-28-2021 Chart Update Tye Anne Work Phone: GS[facility]Imsztnbove-Fiv[facility]x [facility] Work Phone: Start: 09-16-2021 End: 09-16-2021 Office outpatient visit 15 minutes Chintan Maldonado DPM Work Phone: [facility] Comment on above: Hallux limitus of le ft foot (Primary Dx) Start: 09-08-2021 AUDIT Tye Anne Work Phone: [facility] Work Phone: Start: 09-01-2021 Office outpatient vi sit 25 minutes Tye Anne Work Phone: [facility] Work Phone: Start: 08-15-2021 AUDIT Tye Anne Work Phone: [facility] [employer] Work Phone: Start: 08-12-2021 End: 08-12-2021 Office outpatient visit 15 minutes Chintan Maldonado DPM Work Phone: [facility] Comment on above: Hallux limitus of le ft foot (Primary Dx); OM (onychomycosis); Peripheral vascular disease, unspecified (HCC); Nail dystrophy Start: 08-10-2021 Office outpatient vi sit 25 minutes Tey Anne Work Phone: [facility] [employer] Work Phone: Start: 07-26-2021 AUDIT Tye Anne Work Phone: [facility] Work Phone: Start: 07-26-2021 End: 07-26-2021 Orders Only Chintan Maldonado DPM Work Phone: [facility] Comment on above: Diabetic polyneuropa thy associated with type 2 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 (HCC) (Primary Dx) Diabetic foot (HCC) (Primary Dx) Start: 07-25-2021 End: 07-25-2021 Office outpatient visit 15 minutes Yaritza Luna [facility] Work Phone: [facility] Comment on above: 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, left (Primary Dx) Start: 07-11-2021 Chart Update Tye Anne Work Phone: [facility] Work Phone: Start: 07-08-2021 Patient encounter procedure Tye Anne Work Phone: [facility] Work Phone: Start: 07-01-2021 Chart Update Tye Anne Work Phone: [facility] Work Phone: Start: 06-16-2021 Current tobacco non- user cad cap copd pv dm Tye Anne Work Phone: RO-Kbutundkhs-Qwcuncs Work Phone: Start: 06-06-2021 FUV, Provider: Susana Gibson, Status: Pen, Time: 8:45 AM Tye Anne Work Phone: [facility] Work Phone: Start: 06-06-2021 Patient encounter procedure Tye Anne Work Phone: [facility] Work Phone: Start: 06-03-2021 AUDIT Tye Anne Work Phone: [facility] Work Phone: Start: 06-03-2021 End: 06-03-2021 Emergency department patient visit Simi Noelchencho [facility] Emergency 15 Start: 06-02-2021 Chart Update Tye Anne Work Phone: ZY-Wvoutekjni-Mqrbdgu [address] [place] Work Phone: Start: 06-02-2021 EVENT INES, Provider : SOWMYA DIAGNOSTIC THERAPIST,SMCMONITOR, Status: Pen, Time: 11:00 AM Tye Anne Work Phone: VW-Xtbpzrkvjv-Dvwypcb [address] [place] Work Phone: Start: 06-02-2021 ECHO, Provider: SOWMYA GROVER ECHO 1,SMCECHO1, Status: Pen, Time: 10:00 AM Tye Anne Work Phone: JG-Hzddjkksya-Clxfxpc [address] [place] Work Phone: Start: 06-02-2021 Patient encounter procedure Nate Ni [facility] Cardiology Start: 06-02-2021 STRESS LAUREL, Provider : SOWMYA GROVER STRESS 2,SMCSTRESS2, Status: Pen, Time: 9:00 AM Tye Anne Work Phone: MO-Wavugjrppa-Tomxqfi [address] [place] Work Phone: Start: 06-01-2021 AUDIT Tye Anne Work Phone: -[facility] Work Phone: Start: 06-01-2021 End: 06-01-2021 Emergency department patient visit Deniz Bañuelos [facility] Start: 05-31-2021 AUDIT Tye Anne Work Phone: FW-Bggihgywrd-Sozswil [address] [place] Work Phone: Start: 05-30-2021 Office outpatient vi sit 25 minutes Tye Anne Work Phone: [facility] Work Phone: Start: 05-25-2021 Chart Update Tye Anne Work Phone: [facility] Work Phone: Start: 05-24-2021 AUDIT Tye Anne Work Phone: [facility] Work Phone: Start: 05-13-2021 End: 05-13-2021 Emergency department patient visit Zoraida Diana [facility] Emergency 15 Start: 05-06-2021 End: 05-06-2021 Patient encounter procedure Chintan Maldonado DPM Work Phone: [facility] Comment on above: Onychomycosis (Prima ry Dx); Peripheral vascular disease, unspecified (HCC); Nail discoloration; Nail disorder Start: 04-04-2021 Patient encounter procedure Tye Anne Work Phone: [facility] Work Phone: Start: 04-01-2021 Chart Update Tye Anne Work Phone: [facility] Work Phone: Start: 03-01-2021 AUDIT Tye Anne Work Phone: [facility] Work Phone: Start: 02-28-2021 Chart Update Tye Anne Work Phone: RH-Zksfbgoxln-Copnr Work Phone: Start: 01-19-2021 End: 01-19-2021 Office outpatient visit 15 minutes Yaritza Luna CNP Work Phone: [facility] Comment on above: Primary osteoarthrit is of right knee (Primary Dx); DDD (degenerative disc disease), lumbar Start: 01-07-2021 End: 01-07-2021 Office outpatient visit 15 minutes Chintan Maldonado DPM Work Phone: [facility] Comment on above: Diabetic polyneuropa thy associated with type 2 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 (HCC) (Primary Dx); Localized edema Start: 01-04-2021 End: 01-04-2021 Patient encounter procedure Vincent Vásquez MD Work Phone: [facility] Comment on above: Diabetic polyneuropa thy associated with type 2 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 (HCC) (Primary Dx) Start: 12-27-2020 Chart Update Tye Anne Work Phone: [facility] Work Phone: Start: 12-27-2020 Chart Update Tye Anne Work Phone: [facility] Work Phone: Start: 12-26-2020 End: 12-26-2020 Chart abstracting Chintan Maldonado DPM Work Phone: [facility] Comment on above: Acquired hammer toe; Arthritis; Eye problem; Foot cramps; Foot pain, bilateral; High cholesterol; Nail dystrophy; Neuropathy; OM (onychomycosis); PAD (peripheral artery disease) ([facility]); Plantar fasciitis; Sinus pain; Swollen feet; Radiculopathy of lumbar region; Venous insufficiency of both lower extremities; Tired Start: 12-01-2020 End: 12-01-2020 ambulatory Tye Anne MD Work Phone: [facility] Comment on above: Lumbar spondylosis ( Primary Dx); Lumbar radiculopathy Start: 11-25-2020 End: 11-25-2020 ambulatory Tye Anne MD Work Phone: [facility] Comment on above: Lumbar spondylosis ( Primary Dx); Lumbar radiculopathy Start: 11-23-2020 End: 11-23-2020 ambulatory Tye Anne MD Work Phone: [facility] Comment on above: Lumbar spondylosis ( Primary Dx); Lumbar radiculopathy Start: 11-18-2020 End: 11-18-2020 ambulatory Tye Anne MD Work Phone: [facility] Comment on above: Lumbar spondylosis ( Primary Dx); Lumbar radiculopathy Start: 11-16-2020 End: 11-16-2020 ambulatory Tye Anne MD Work Phone: [facility] Comment on above: Lumbar spondylosis ( Primary Dx); Lumbar radiculopathy Start: 11-10-2020 End: 11-10-2020 Transcribe Orders Chintan Maldonado DPM Work Phone: [facility] Comment on above: Radiculopathy, unspe cified spinal region (Primary Dx); Neuropathy Start: 11-09-2020 End: 11-09-2020 ambulatory Tye Anne MD Work Phone: [facility] Comment on above: Lumbar spondylosis ( Primary Dx); Lumbar radiculopathy Start: 11-04-2020 End: 11-04-2020 ambulatory Kailey Hilton MD Work Phone: [facility] Comment on above: Lumbar radiculopathy ; Lumbar spondylosis Start: 10-27-2020 End: 10-27-2020 Office outpatient visit 25 minutes Yaritza Luna CNP Work Phone: [facility] Comment on above: Primary osteoarthrit is of right knee (Primary Dx) Start: 10-13-2020 End: 10-13-2020 Patient encounter procedure Jeancarlos Henry Work Phone: [facility] [place] [facility] Start: 08-09-2020 Patient encounter procedure Tye Anne Work Phone: [address] Work Phone: Start: 07-23-2020 End: 07-23-2020 Orders Only Zuly Dyana Yin Work Phone: [facility] Start: 07-07-2020 Patient encounter procedure Robbin Troncoso II [facility] Work Phone: Start: 05-11-2020 Patient encounter procedure Robbin Troncoso II [facility] Work Phone: Start: 03-12-2020 End: 03-12-2020 Office outpatient visit 15 minutes Elías Hsu Work Phone: [facility] Comment on above: Arthritis of right k nee (Primary Dx); 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, left Start: 03-01-2020 Patient encounter procedure Robbin Troncoso II -[facility] Work Phone: Start: 02-10-2020 [facility] Work Phone: Start: 12-31-2019 Patient encounter [facility] Work Phone: Start: 11-14-2019 End: 11-14-2019 Office outpatient visit 10 minutes Elías Hsu Work Phone: [facility] Comment on above: 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, left (Primary Dx); Contusion of left knee, initial encounter Start: 09-03-2019 Patient encounter procedure [facility] Work Phone: Start: 08-14-2019 End: 08-14-2019 Office outpatient visit 25 minutes Yaritza Luna Work Phone: [facility] Comment on above: Acute pain of right wrist (Primary Dx) Start: 07-21-2019 End: 07-21-2019 Office outpatient visit 15 minutes Elías Hsu Work Phone: [facility] Comment on above: Arthritis of right k nee (Primary Dx); 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, left Start: 07-01-2019 Patient encounter procedure [facility] Work Phone: Start: 09-09-2018 End: 09-09-2018 Office outpatient visit 10 minutes Elías Hsu Work Phone: [facility] Comment on above: Bursitis/tendonitis, shoulder (Primary Dx); Lateral epicondylitis of right elbow Start: 09-04-2018 Patient encounter procedure Elías Hsu Facility:[facility] Start: 08-09-2018 End: 08-09-2018 Patient encounter procedure Elías Hsu Work Phone: [facility] Start: 07-29-2018 End: 07-29-2018 Office outpatient visit 15 minutes Elías Barkley Vito Work Phone: [facility] Comment on above: Right elbow pain (Pr imary Dx); Lateral epicondylitis of right elbow; Bursitis/tendonitis, shoulder; Rotator cuff disorder, right Start: 03-13-2018 End: 03-14-2018 Patient encounter KAILEY HILTON [facility] Start: 03-13-2018 End: 03-14-2018 Patient encounter Kailey Hilton Work Phone: [facility] Comment on above: Lumbar stenosis with neurogenic claudication (Primary Dx) Start: 05-04-2017 End: 05-04-2017 Ambulatory Dominick Lopez Work Phone: [facility] Start: 03-06-2017 Office/outpatient vi sit, est, level 3 Elías Filippo Hsu Work Phone: [facility] Start: 05-31-2015 Patient encounter status Nadiya Cooneycock [facility] Work Phone: [facility] Work Phone: Patient encounter procedure Tye Anne Work Phone: [facility] Work Phone: Procedures Date Procedure Procedure Detail Performing Clinician Start: 04-28-2025 Lipid 1996 panel - Serum or Plasma Tye Anne MD Work Phone: Start: 01-26-2025 Thyrotropin [Units/volume] in Serum or Plasma Tye Anne MD Work Phone: Start: 01-20-2025 Lipid 1996 panel - Serum or Plasma yTe Anne MD Work Phone: Start: 01-15-2025 Ecg routine ecg w/least 12 lds w/i&r Aravind Jimenez MD Work Phone: Start: 12-17-2024 Ecg routine ecg w/least 12 lds trcg only w/o i&r Sammy Andrew DO Work Phone: Start: 12-17-2024 Urinalysis complete W Reflex Culture panel - Urine Sammy Andrew DO Work Phone: Start: 12-17-2024 Urnls dip stick/tablet reagent auto microscopy Sammy Andrew DO Work Phone: Start: 12-17-2024 Ct head/brain w/o contrast material Sammy Andrew DO Work Phone: Start: 12-17-2024 Radiologic exam chest single view Jerry Andrew DO Work Phone: Start: 12-17-2024 Comprehensive metabolic panel Sammy Andrew DO Work Phone: Start: 11-11-2024 CARDIAC DEVICE CHECK - IN CLINIC Aly Jimenez MD Work Phone: Start: 11-11-2024 Ecg routine ecg w/least 12 lds w/i&r Aravind Jimenez MD Work Phone: Start: 10-29-2024 Thyrotropin [Units/volume] in Serum or Plasma Tye Anne MD Work Phone: Start: 10-28-2024 End: 10-28-2024 Study Interpretation of outside study Monserrat Booker Priteshfarihaesteban DO Work Phone: Start: 10-28-2024 Study Interpretation of outside study Monserrat Booker Priteshfarihaesteban DO Work Phone: Start: 10-20-2024 Program eval implantable in persn dual ld pacer Aravind Jimenez MD Work Phone: Start: 10-08-2024 End: 10-08-2024 Renal function panel Moise Brown MD Work Phone: Start: 10-08-2024 Glucose quantitative blood xcpt reagent strip Cristobal Dunbar MD Work Phone: Start: 10-07-2024 Glucose quantitative blood xcpt reagent strip Cristobal Dunbar MD Work Phone: Start: 10-07-2024 Glucose quantitative blood xcpt reagent strip Cristobal Dunbar MD Work Phone: Start: 10-07-2024 End: 10-07-2024 Renal function panel Moise Brown MD Work Phone: Start: 10-07-2024 Radiologic exam chest single view Hernandez Garcia MD Work Phone: Start: 10-06-2024 Program eval implantable in prsn multi ld pacer Hany Mendez PA-C Work Phone: Start: 10-06-2024 Radiologic exam abdomen 1 view Hernandez conway MD Work Phone: Start: 10-06-2024 Radiologic exam chest single view Hernandez Garcia MD Work Phone: Start: 10-06-2024 End: 10-06-2024 Renal function panel Moise Brown MD Work Phone: Start: 10-06-2024 Glucose quantitative blood xcpt reagent strip Cristobal Dunbar MD Work Phone: Start: 10-05-2024 Glucose quantitative blood xcpt reagent strip Cristobal Dunbar MD Work Phone: Start: 10-05-2024 Radiologic exam chest single view Hernandez Garcia MD Work Phone: Start: 10-05-2024 Glucose quantitative blood xcpt reagent strip Cristobal Dunbar MD Work Phone: Start: 10-05-2024 Renal function panel Moise Brown MD Work Phone: Start: 10-05-2024 Glucose quantitative blood xcpt reagent strip Cristobal Dunbar MD Work Phone: Start: 10-05-2024 Glucose quantitative blood xcpt reagent strip Cristobal Dunbar MD Work Phone: Start: 10-04-2024 Glucose quantitative blood xcpt reagent strip Cristobal Dunbar MD Work Phone: Start: 10-04-2024 Glucose quantitative blood xcpt reagent strip Cristobal Dunbar MD Work Phone: Start: 10-04-2024 Renal function panel Moise Brown MD Work Phone: Start: 10-04-2024 Glucose quantitative blood xcpt reagent strip Cristobal Dunbar MD Work Phone: Start: 10-04-2024 Glucose quantitative blood xcpt reagent strip Cristobal Dunbar MD Work Phone: Start: 10-03-2024 Basic metabolic panel calcium total Jillian Turner PA-C Work Phone: Start: 10-03-2024 Glucose quantitative blood xcpt reagent strip Cristobal Dunbar MD Work Phone: Start: 10-03-2024 Glucose quantitative blood xcpt reagent strip Cristobal Dunbar MD Work Phone: Start: 10-03-2024 End: 10-03-2024 Renal function panel Moise Brown MD Work Phone: Start: 10-03-2024 Radiologic exam chest single view Nilsa Moon RECORDS MANAGEMENT CLERK-BUTCHER HELPER Work Phone: Start: 10-03-2024 Glucose quantitative blood xcpt reagent strip Cristobal Dunbar MD Work Phone: Start: 10-02-2024 Ecg routine ecg w/least 12 lds trcg only w/o i&r Elías Davies MD Work Phone: Start: 10-02-2024 Glucose quantitative blood xcpt reagent strip Cristobal Dunbar MD Work Phone: Start: 10-02-2024 Guidance for placement of GJ-tube in Gastrointestinal tract upper Shahnaz Resendiz RECORDS MANAGEMENT CLERK-BUTCHER HELPER Work Phone: Start: 10-02-2024 Dup-scan xtr veins unilateral/limited study Shahnaz Bustilloc RECORDS MANAGEMENT CLERK-BUTCHER HELPER Work Phone: Start: 10-02-2024 Glucose quantitative blood xcpt reagent strip Cristobal Dunbar MD Work Phone: Start: 10-02-2024 Program eval implantable in prsn multi ld pacer Ali S Emerson MD Work Phone: Start: 10-02-2024 End: 10-02-2024 Renal function panel Moise Brown MD Work Phone: Start: 10-02-2024 Radiologic exam chest single view Nilsa Moon RECORDS MANAGEMENT CLERK-BUTCHER HELPER Work Phone: Start: 10-02-2024 Glucose quantitative blood xcpt reagent strip Cristobal Dunbar MD Work Phone: Start: 10-01-2024 Glucose quantitative blood xcpt reagent strip Cristobal uDnbar MD Work Phone: Start: 10-01-2024 Glucose quantitative blood xcpt reagent strip Cristobal Dunbar MD Work Phone: Start: 10-01-2024 Renal function panel Moise Brown MD Work Phone: Start: 10-01-2024 Glucose quantitative blood xcpt reagent strip Cristobal Dunbar MD Work Phone: Start: 10-01-2024 Radiologic exam chest single view Nilsa Moon RECORDS MANAGEMENT CLERK-BUTCHER HELPER Work Phone: Start: 09-30-2024 Glucose quantitative blood xcpt reagent strip Cristobal Dunbar MD Work Phone: Start: 09-30-2024 End: 09-30-2024 Renal function panel Moise Brown MD Work Phone: Start: 09-30-2024 Glucose quantitative blood xcpt reagent strip Peggy Douglas MD Work Phone: Start: 09-30-2024 Ecg routine ecg w/least 12 lds trcg only w/o i&r Moise Brown MD Work Phone: Start: 09-30-2024 Radiologic exam chest single view Nilsamike Jamesger RECORDS MANAGEMENT CLERK-BUTCHER HELPER Work Phone: Start: 09-30-2024 Glucose quantitative blood xcpt reagent strip Peggy Douglas MD Work Phone: Start: 09-30-2024 Ecg routine ecg w/least 12 lds trcg only w/o i&r Moise Brown MD Work Phone: Start: 09-30-2024 Radiologic exam abdomen 1 view Faisal Garnett MD Work Phone: Start: 09-30-2024 End: 09-30-2024 Renal function panel Moise Brown MD Work Phone: Start: 09-29-2024 Glucose quantitative blood xcpt reagent strip Peggy Douglas MD Work Phone: Start: 09-29-2024 Glucose quantitative blood xcpt reagent strip Peggy Douglas MD Work Phone: Start: 09-29-2024 Glucose quantitative blood xcpt reagent strip Peggy Douglas MD Work Phone: Start: 09-29-2024 Glucose quantitative blood xcpt reagent strip Peggy Douglas MD Work Phone: Start: 09-29-2024 Radiologic exam chest single view Riki Garnett MD Work Phone: Start: 09-29-2024 Radiologic exam abdomen 1 view Faisal Garnett MD Work Phone: Start: 09-29-2024 Renal function panel Moise Brown MD Work Phone: Start: 09-28-2024 Glucose quantitative blood xcpt reagent strip Cristobal Dunbar MD Work Phone: Start: 09-28-2024 Glucose quantitative blood xcpt reagent strip Cristobal Dunbar MD Work Phone: Start: 09-28-2024 Glucose quantitative blood xcpt reagent strip Cristobal Dunbar MD Work Phone: Start: 09-28-2024 Radiologic exam chest single view Moise Brown MD Work Phone: Start: 09-28-2024 Renal function panel Moise Brown MD Work Phone: Start: 09-27-2024 Radiologic exam chest single view Moise Brown MD Work Phone: Start: 09-27-2024 Blood count complete auto&auto difrntl wbc Moise Brown MD Work Phone: Start: 09-27-2024 End: 09-27-2024 Egd endoscopic stent placement w/wire& dilation Monserrat Booker Nash DO Work Phone: Start: 09-27-2024 Glucose quantitative blood xcpt reagent strip Cristobal Dunbar MD Work Phone: Start: 09-27-2024 Renal function panel Moise Brown MD Work Phone: Start: 09-27-2024 Ct thorax w/contrast material Elías Morris MD Work Phone: Start: 09-26-2024 Ct thorax w/o contrast material Moise yost MD Work Phone: Start: 09-26-2024 End: 09-26-2024 Renal function panel Moise Brown MD Work Phone: Start: 09-26-2024 Radiologic exam chest single view Jeanine Yanez MD Work Phone: Start: 09-26-2024 Ecg routine ecg w/least 12 lds trcg only w/o i&r Alice Norman MD Work Phone: Start: 09-26-2024 Electrophysiology study Aravind Jimenez MD Work Phone: Start: 09-26-2024 ANESTHESIA INTRAOPERATIVE ANTONIETTA Moise guy MD Work Phone: Start: 09-26-2024 Blood typing serologic rh (d) Aravind cleary MD Work Phone: Start: 09-26-2024 Glucose quantitative blood xcpt reagent strip Aravind Jimenez MD Work Phone: Start: 09-26-2024 CARDIAC DEVICE CHECK - NON BILL - PACEMAKER Aravind Jimenez MD Work Phone: Start: 09-26-2024 PREPARE RBC Hernandez Calderon CAA Work Phone: Start: 09-12-2024 FL PAIN MANAGEMENT Reggie WEAVER-C Work Phone: Start: 09-12-2024 Njx anes&/strd w/img tfrml edrl lmbr/sac 1 lvl Reggie Suraj WEAVER-C Work Phone: Start: 09-12-2024 Glucose quantitative blood xcpt reagent strip James Alves DO Work Phone: Start: 09-10-2024 Thyrotropin [Units/volume] in Serum or Plasma Vito 02 Start: 08-13-2024 Radiologic exam chest single view Lula Jimenez MD Work Phone: Start: 08-13-2024 Electrophysiology study Aravind Jimenez MD Work Phone: Start: 08-13-2024 Glucose quantitative blood xcpt reagent strip Aravind Jimenez MD Work Phone: Start: 08-13-2024 Ecg routine ecg w/least 12 lds trcg only w/o i&r Aravind Jimenez MD Work Phone: Start: 08-11-2024 Program eval implantable in persn dual ld pacer Aravind Jimenez MD Work Phone: Start: 08-11-2024 Marie-px dev eval pm/ldls pm phys/qhp in person Aravind Jimenez MD Work Phone: Start: 08-08-2024 Thyrotropin [Units/volume] in Serum or Plasma Fabiana 2 Start: 07-16-2024 Assay of thyroxine total Monty Pineda Taycass or BUTCHER HELPER Work Phone: Start: 07-16-2024 Thyrotropin [Units/volume] in Serum or Plasma Reggie Aragon PA-C Work Phone: Start: 06-12-2024 Influenza virus A and B RNA [Identifier] in Unspecified specimen by TATI with probe detection Simi Bray RECORDS MANAGEMENT CLERK-BUTCHER HELPER Work Phone: Start: 06-12-2024 SARS-CoV-2 (COVID-19) RNA [Presence] in Respiratory specimen by TATI with probe detection Simi Ruelas Markusshanteanand RECORDS MANAGEMENT CLERK-BUTCHER HELPER Work Phone: Start: 06-12-2024 Radiologic exam chest 2 views Simi Ruelas Asa RECORDS MANAGEMENT CLERK-BUTCHER HELPER Work Phone: Start: 06-12-2024 EXTRA TUBES Robbin Flores MD Work Phone: Start: 06-12-2024 LIGHT BLUE TOP Robbin Flores MD Work Phone: Start: 06-12-2024 SST TOP Robbin Flores MD Work Phone: Start: 06-12-2024 Comprehensive metabolic panel Simi Ruelas Asa RECORDS MANAGEMENT CLERK-BUTCHER HELPER Work Phone: Start: 06-12-2024 Ecg routine ecg w/least 12 lds trcg only w/o i&r Simi Ruelas Asa RECORDS MANAGEMENT CLERK-BUTCHER HELPER Work Phone: Start: 06-09-2024 Cv strs tst xers&/or rx cont ecg w/o i&r Aravind Jimenez MD Work Phone: Start: 06-09-2024 Myocardial spect multiple studies Lula Jimenez MD Work Phone: Start: 05-28-2024 FL PAIN MANAGEMENT Reggie Aragon PA-C Work Phone: Start: 05-28-2024 Njx anes&/strd w/img tfrml edrl lmbr/sac 1 lvl Reggie Aragon PA-C Work Phone: Start: 05-27-2024 Ecg routine ecg w/least 12 lds w/i&r Aravind Jimenez MD Work Phone: Start: 05-13-2024 Program eval implantable in persn dual ld pacer Aravind Jimenez MD Work Phone: Start: 05-13-2024 Thyrotropin [Units/volume] in Serum or Plasma [facility] Start: 04-25-2024 Lipid 1995 panel - Serum or Plasma Sheyla Schultz MD Work Phone: Start: 04-08-2024 Echo tthrc r-t 2d w/wom-mode compl spec&colr d Joel Stroud MD Work Phone: Start: 03-28-2024 FL PAIN MANAGEMENT Reggie WEAVER-C Work Phone: Start: 03-28-2024 Njx dx/ther sbst intrlmnr lmbr/sac w/img gdn Reggie Aragon PA-C Work Phone: Start: 03-13-2024 Ecg routine ecg w/least 12 lds w/i&r Joel Stroud MD Work Phone: Start: 01-10-2024 History of operative procedure on knee History of left knee replacement Reggie WEAVER-C Work Phone: Start: 12-07-2023 XR tomography Unspecified body region Reggie Ruelas Aragon MEG-C Work Phone: Start: 11-19-2023 Ecg routine ecg w/least 12 lds w/i&r Octavio Marmolejo RECORDS MANAGEMENT CLERK-BUTCHER HELPER Work Phone: Start: 11-16-2023 C-reactive protein TYE ANNE Start: 11-16-2023 CBC W Auto Differential panel - Blood TYE ANNE Start: 11-16-2023 Comprehensive metabolic 2000 panel - Serum or Plasma TYE ANNE Start: 11-16-2023 SEDIMENTATION RATE, AUTOMATED SANTI ANNE Start: 10-23-2023 Ecg routine ecg w/least 12 lds trcg only w/o i&r Kathy Treviño RECORDS MANAGEMENT CLERK-BUTCHER HELPER, DNP Work Phone: Start: 10-23-2023 Program eval implantable in persn dual ld pacer Aravind Jimenez MD Work Phone: Start: 10-23-2023 Lipid 1996 panel - Serum or Plasma [facility] Start: 10-23-2023 Thyrotropin [Units/volume] in Serum or Plasma [facility] Start: 09-24-2023 CARDIAC DEVICE CHECK - MRI [facility] Start: 09-24-2023 MR LUMBAR SPINE WO IV CONTRAST [facility] Start: 09-24-2023 CARDIAC DEVICE CHECK - MRI [facility] Start: 09-24-2023 Marie-px dev eval pm/ldls pm phys/qhp in person Aravind Jimenez MD Work Phone: Start: 09-24-2023 Mri spinal canal lumbar w/o contrast material Reggie Aragon PA-C Work Phone: Start: 09-24-2023 Marie-px dev eval pm/ldls pm phys/qhp in person Maritza Lopes MD Work Phone: Start: 08-27-2023 Marie-px dev eval pm/ldls pm phys/qhp in person Aravind Jimenez MD Work Phone: Start: 08-27-2023 Mri spinal canal cervical w/o contrast matrl Reggie Aragon PA-C Work Phone: Start: 08-27-2023 Marie-px dev eval pm/ldls pm phys/qhp in person Miguel Hinojosa MD Work Phone: Start: 08-07-2023 End: 08-07-2023 Radiologic examination pelvis 1/2 views Reggie Aragon PA-C Work Phone: Start: 04-30-2023 Arthrocentesis aspir&/inj major jt/bursa w/o us Yaritza Luna [facility] Work Phone: Start: 04-25-2023 Lipid 1996 panel - Serum or Plasma Tye Anne MD Work Phone: Start: 04-25-2023 Thyrotropin [Units/volume] in Serum or Plasma Tye Anne MD Work Phone: Start: 03-16-2023 End: 03-16-2023 EKG impression Robbin Flores Start: 12-31-2022 Arthrocentesis aspir&/inj small jt/bursa w/o us Yaritza Luna BUTCHER HELPER Work Phone: Start: 11-07-2022 Arthrocentesis aspir&/inj interm jt/burs w/o us Yaritza Luna BUTCHER HELPER Work Phone: Start: 10-07-2022 Arthrocentesis aspir&/inj interm jt/burs w/o us Yaritza Luna BUTCHER HELPER Work Phone: Start: 10-03-2022 Lipid 1996 panel - Serum or Plasma Tye Anne MD Work Phone: Start: 10-03-2022 Thyrotropin [Units/volume] in Serum or Plasma Tye Anne MD Work Phone: Start: 09-19-2022 Arthrocentesis aspir&/inj small jt/bursa w/o us Yaritza Luna BUTCHER HELPER Work Phone: Start: 08-25-2022 End: 08-25-2022 EKG impression Anoop Shayy [place] Start: 08-04-2022 Arthrocentesis aspir&/inj interm jt/burs w/o us Yaritza Luna CNP Work Phone: Start: 08-01-2022 Arthrocentesis aspir&/inj interm jt/burs w/o us Yaritza Luna BUTCHER HELPER Work Phone: Start: 01-16-2022 Ophthalmic examination and evaluation Yaritza Luna CNP Work Phone: Start: 12-12-2021 Microalbumin [Mass/volume] in Urine by Test strip Yaritza Luna BUTCHER HELPER Work Phone: Start: 06-03-2021 End: 06-03-2021 EKG impression Simi Kamara Start: 06-02-2021 Echocardiography Tye Anne Work Phone: Start: 05-13-2021 End: 05-13-2021 EKG impression Zoraida Diana Start: 01-19-2021 Arthrocentesis aspir&/inj major jt/bursa w/o us Yaritza Luna BUTCHER HELPER Work Phone: Start: 10-27-2020 Arthrocentesis aspir&/inj major jt/bursa w/o us Yaritza Luna BUTCHER HELPER Work Phone: Start: 09-01-2020 Hemoglobin glycosylated a1c Joan wooten MD Start: 07-07-2020 Albumin, Urine Spot [facility] Start: 07-07-2020 Assay of thyroid stimulating hormone tsh [facility] Start: 07-07-2020 Comprehensive metabolic 2000 panel [facility] Start: 07-07-2020 Hemoglobin glycosylated a1c [facility] Start: 07-07-2020 Lipid panel [facility] Start: 07-07-2020 PSA screening [facility] Start: 03-19-2020 Yordan Anne Work Phone: Start: 08-18-2019 Arthrocentesis aspir&/inj interm jt/burs w/o Yaritza Luna Work Phone: Start: 07-01-2019 Albumin, Urine Spot [facility] Start: 07-01-2019 Assay of thyroid stimulating hormone tsh [facility] Start: 07-01-2019 Comprehensive metabolic 2000 panel [facility] Start: 07-01-2019 Hemoglobin glycosylated a1c [facility] Start: 07-01-2019 Lipid panel Tye Anne Start: 07-01-2019 PSA screening Tye Anne Start: 07-29-2018 Radex shoulder complete minimum 2 views Elías Filippo Hsu Work Phone: Start: 07-29-2018 Radex elbow complete minimum 3 views Elías Hsu Work Phone: Start: 06-03-2018 [object Object] Comment on above: Result Comment: AGE-SPECIFIC REFERENCE R ANGES FOR SERUM PSA REFERENCE RANGE NG/ML AGE ASIANS BLACKS WHITE 40-49 0-2 0-2 0-2.5 50-59 0-3 0-4 0-3.5 60-69 0-4 0-4.5 0-4.5 70-79 0-5 0-5.5 0-6.5 PSA INCREASES WITH AGE, RACE, AND EJACULATION WITHIN 48 HRS. [facility] VOL24,NO.2, , PG.339 Performed By: #### [id number] #### [place] [id number] [place] [id number] Start: 03-14-2018 End: 03-14-2018 Glucose [Mass/volume] in Blood Kailey Hilton Work Phone: Start: 03-13-2018 End: 03-13-2018 Glucose [Mass/volume] in Blood Kailey HectorGeovanna Hilton Work Phone: Start: 03-13-2018 End: 03-13-2018 Glucose [Mass/volume] in Blood Kailey Hilton Work Phone: Start: 03-13-2018 End: 03-13-2018 Fluoroscopy spx >1 hour phys/qhp time Kailey Hilton Work Phone: Start: 03-13-2018 End: 03-13-2018 Glucose [Mass/volume] in Blood Kailey HectorGeovanna Hilton Work Phone: Start: 03-13-2018 End: 03-13-2018 LAMINECTOMY DECOMPRESSION LUMBAR 2-3 LEVELS Kailey Hilton Work Phone: Start: 03-13-2018 End: 03-13-2018 Glucose [Mass/volume] in Blood Kailey HectorGeovanna Hilton Work Phone: Start: 03-13-2018 Adult depression screening assessment Chintan Maldonado Jr., DPM Work Phone: Start: 02-27-2018 End: 02-27-2018 SCAN OTHER ORDERS Provider Not In System Start: 09-05-2010 Circumcision Tye Anne Work Phone: Comment on above: Dr. Henderson; Start: 09-14-2003 Cryotherapy of skin Tye Anne Work Phone: Comment on above: ACTINIC KERATOSIS ON FACE PER MDS; Start: 11-18-2001 Repair of inguinal hernia Tye Anne Work Phone: Comment on above: Open right inguinal hernia repair by Dr. Ignacio in 2001; Start: 10-04-2000 Esophagogastroduodenoscopy Tye Anne Work Phone: Arthroplasty of knee Nguyễn Anne Comment on above: LEFT KNEE PER MCB JUNE 2015; Cardiac catheterization Jocelyne littlejohn Chalino Anne Work Phone: Comment on above: 09/06/20 at [place]; Catheter ablation of arrhythmogenic focus Tye Anne Work Phone: End: 09-05-2010 Circumcision Tye Anne End: 08-23-2010 Colonoscopy Tye Anne End: 03-19-2020 Colonoscopy Robbin Troncoso II End: 09-14-2003 Cryotherapy of skin Tye Anne Debridement of nail Sandeep Anne End: 10-04-2000 Esophagogastroduodenoscopy Tye leon Flexible fiberoptic sigmoidoscopy Tye Anne Comment on above: 1995 DR LASHELL [place]; History of operative procedure on knee History of left knee replacement Reggie Aragon PA-C Work Phone: Injection of spinal epidural space Tye Anne Insertion of pacemak er pulse generator Tye Anne Work Phone: Lumbar spinal fusion Nguyễn Anne Comment on above: L5 IN 1962; Phacoemulsification of cataract with intraocular lens implantation Tye Anne Comment on above: RIGHT EYE; End: 11-18-2001 Repair of inguinal hernia Tye marvin Repair of retina for retinal detachment Tye Anne Comment on above: RIGHT EYE; Plan of Treatment Date Care Activity Detail Author Start: 10-14-2032 DTaP/Tdap/Td Vaccines (3 - Td or Tdap) DTaP/Tdap/Td Vaccines (3 - Td or Tdap) [facility] Start: 10-14-2032 Tetanus vaccination Tetanus: Every 10yrs [facility] Start: 10-14-2032 [facility] Start: 01-22-2027 Glaucoma screening Diabetes: Retinopathy Screening [facility] Start: 04-28-2026 Creatinine measurement Creatinine Level [facility] Start: 04-28-2026 Lipid panel Lipid Panel [facility] Start: 04-28-2026 Potassium measurement Potassium Level [facility] Start: 04-28-2026 Urine screening for protein Diabetes: Urine Protein Screening [facility] Start: 01-29-2026 Echocardiography Echocardiogram [facility] Start: 01-26-2026 Thyroid stimulating hormone measurement TSH Level [facility] Start: 01-20-2026 Creatinine measurement Creatinine Level [facility] Start: 01-20-2026 Glaucoma screening [facility] Start: 01-20-2026 Lipid panel Lipid Panel [facility] Start: 01-20-2026 Potassium measurement Potassium Level [facility] Start: 12-17-2025 Creatinine measurement Creatinine Level [facility] Start: 12-17-2025 Potassium measurement Potassium Level [facility] Start: 11-07-2025 Medicare Annual Wellness Visit Medicare Annual Wellness Visit (AWV) [facility] Start: 11-06-2025 Medicare Wellness Visit Medicare Wellness Visit [facility] Start: 10-29-2025 End: 05-01-2026 Cholesterol in LDL [Mass/volume] in Serum or Plasma Cholesterol, LDL Direct Lab Routine 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, without long-term current use of insulin (Multi) Mixed hyperlipidemia Expected: 10/29/2025 (Approximate), Expires: 05/01/2026 [facility] Service Area Work Phone: Comment on above: Expected: 10/29/2025 (Approximate), Expi res: 05/01/2026 Start: 10-29-2025 End: 05-01-2026 Comprehensive metabolic 2000 panel - Serum or Plasma Comprehensive Metabolic Panel Lab Routine Orthostatic hypotension 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, without long-term current use of insulin (Multi) Chronic diastolic congestive heart failure (Multi) Hypertension, essential, benign Mixed hyperlipidemia Permanent atrial fibrillation (Multi) Expected: 10/29/2025 (Approximate), Expires: 05/01/2026 [facility] Work Phone: Comment on above: Expected: 10/29/2025 (Approximate), Expi res: 05/01/2026 Start: 10-29-2025 Creatinine measurement Creatinine Level [facility] Start: 10-29-2025 End: 05-01-2026 Hemoglobin A1c/Hemoglobin.total in Blood Hemoglobin A1C Lab Routine 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, without long-term current use of insulin (Multi) Expected: 10/29/2025 (Approximate), Expires: 05/01/2026 [facility] Work Phone: Comment on above: Expected: 10/29/2025 (Approximate), Expi res: 05/01/2026 Start: 10-29-2025 Potassium measurement Potassium Level [facility] Start: 10-29-2025 Thyroid stimulating hormone measurement TSH Level [facility] Start: 10-29-2025 End: 10-29-2025 Patient encounter procedure 10/29/2025 8:20 AM EDT Office Visit [place] [address] [address] Tye Anne MD [address] [address] [facility] Start: 10-26-2025 End: 10-26-2025 Patient encounter procedure 10/26/2025 8:45 AM EDT Office Visit [facility] [address] [facility] 2nd [place] [phone] Nayeli Flores, RECORDS MANAGEMENT CLERK-BUTCHER HELPER [address] [place] [address] [facility] Start: 10-08-2025 Creatinine measurement [facility] Start: 10-08-2025 Potassium measurement [facility] Start: 09-26-2025 CLASS III : Chest Radiograph CLASS III : Chest Radiograph [facility] Start: 09-26-2025 Creatinine measurement Creatinine Level [facility] Start: 09-26-2025 Potassium measurement Potassium Level [facility] Start: 09-10-2025 Thyroid stimulating hormone measurement [facility] Start: 08-31-2025 End: 03-07-2026 US Head and neck soft tissue US Soft Tissue Neck and Thyroid Imaging Routine Thyroid nodule Expected: 08/31/2025, Expires: 03/07/2026 [facility] Work Phone: Comment on above: Expected: 08/31/2025, Expires: Start: 08-31-2025 End: 08-31-2025 Patient encounter procedure 08/31/2025 9:00 AM EST Appointment [facility] Ultrasound [address] [place] [phone] Monty Julien CNP [address] [place] [address] [facility]tras[facility] Start: 08-25-2025 End: 08-25-2025 Patient encounter procedure 08/25/2025 10:00 AM EST Office Visit [facility] [address] [facility] [place] [phone] Herman Naidu MD [address] [place] [phone] [facility] Start: 08-08-2025 Thyroid stimulating hormone measurement TSH Level [facility] Start: 08-03-2025 End: 01-26-2026 US Head and neck soft tissue US Soft Tissue Neck and Thyroid Imaging Routine Abnormal thyroid function test Thyroid nodule Expected: 08/03/2025, Expires: 01/26/2026 [facility] Comment on above: Expected: 08/03/2025, Expires: Start: 08-03-2025 End: 08-03-2025 Patient encounter procedure 08/03/2025 8:30 AM EST Appointment [facility] Ultrasound [address] [place] [phone] Herman Naidu MD [address] [place] [address] [facility]tras[facility] Start: 07-30-2025 Creatinine measurement Creatinine Level [facility] Start: 07-30-2025 Potassium measurement Potassium Level [facility] Start: 07-29-2025 Hemoglobin A1c measurement Diabetes: Hemoglobin A1C [facility] Start: 07-29-2025 Thyroid stimulating hormone measurement Class III : TSH [facility] Start: 07-23-2025 Hemoglobin A1c measurement A1C [facility] Start: 07-20-2025 CLASS III : EKG CLASS III : EKG [facility] Start: 07-20-2025 eGFR Diabetes eGFR Diabetes [facility] Start: 07-20-2025 Urine screening for protein eGFR Diabetes [facility] Start: 07-16-2025 Thyroid stimulating hormone measurement TSH Level [facility] Start: 07-16-2025 End: 07-16-2025 Patient encounter procedure 07/16/2025 10:30 AM EST Office Visit [facility] [place] [address] [address]nd [place] [phone] Octavio Marmolejo, RECORDS MANAGEMENT CLERK-BUTCHER HELPER [address] [facility] [place], [facility] [address] [place], [place] [phone] [facility] Office [facility] Start: 07-14-2025 End: 07-14-2025 Patient encounter procedure 07/14/2025 11:30 AM EST Office Visit [facility] [address] [place] [phone] Aravind Jimenez MD [address] [facility] 3, [address] [place] [address] [facility] Office [facility] Start: 06-12-2025 Creatinine measurement Creatinine Level [facility] Start: 06-12-2025 Potassium measurement Potassium Level [facility] Start: 06-11-2025 End: 06-11-2025 ambulatory 06/11/2025 10:30 AM EST [facility] [address] [phone] [facility] Meghan Start: 06-09-2025 End: 06-09-2025 Patient encounter procedure 06/09/2025 9:30 AM EST Appointment [address] [place] [address] [facility] Start: 06-03-2025 End: 06-03-2025 Patient encounter procedure 06/03/2025 8:15 AM EST Office Visit [facility]ry [address] [place] [address] Chintan Maldonado Jr., DPM [address] [place] [address] [facility] Start: 05-29-2025 End: 05-29-2025 ambulatory 05/29/2025 11:00 AM EST Infusion [facility] [address] [address] [facility] Start: 05-27-2025 End: 05-27-2025 Clinical Support 05/27/2025 10:00 AM EST Clinical Support [facility] [address]th [place] [address] [facility] Start: 05-26-2025 End: 05-26-2025 Clinical Support [facility] Start: 05-14-2025 End: 05-14-2025 ambulatory 05/14/2025 11:30 AM EST Infusion [facility] Office [address] [place] [address] [facility] Start: 05-13-2025 Thyroid stimulating hormone measurement TSH Level [facility] Start: 05-01-2025 End: 05-01-2026 CBC W Auto Differential panel - Blood [facility] Service Area Work Phone: Comment on above: Expected: 05/01/2025 (Approximate), Expi res: 07/30/2025 Expected: 05/01/2025 (Approximate), Expires: 05/01/2026 Start: 05-01-2025 End: 07-30-2025 Comprehensive metabolic 2000 panel - Serum or Plasma Comprehensive Metabolic Panel Lab Routine 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, without long-term current use of insulin Hypertension, essential, benign Mixed hyperlipidemia Permanent atrial fibrillation (Multi) Expected: 05/01/2025 (Approximate), Expires: 07/30/2025 [facility] Work Phone: Comment on above: Expected: 05/01/2025 (Approximate), Expi res: 07/30/2025 Start: 05-01-2025 End: 07-30-2025 Hemoglobin A1c/Hemoglobin.total in Blood Hemoglobin A1C Lab Routine 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, without long-term current use of insulin Expected: 05/01/2025 (Approximate), Expires: 07/30/2025 [facility] Work Phone: Comment on above: Expected: 05/01/2025 (Approximate), Expi res: 07/30/2025 Start: 05-01-2025 End: 07-30-2025 Lipid 1996 panel - Serum or Plasma Lipid Panel Lab Routine 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, without long-term current use of insulin Mixed hyperlipidemia Expected: 05/01/2025 (Approximate), Expires: 07/30/2025 [facility] Work Phone: Comment on above: Expected: 05/01/2025 (Approximate), Expi res: 07/30/2025 Start: 05-01-2025 End: 07-30-2025 Microalbumin/Creatini ne [Mass Ratio] in Urine Albumin-Creatinine Ratio, Urine Random Lab Routine 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, without long-term current use of insulin Hypertension, essential, benign Expected: 05/01/2025 (Approximate), Expires: 07/30/2025 [facility] Work Phone: Comment on above: Expected: 05/01/2025 (Approximate), Expi res: 07/30/2025 Start: 05-01-2025 End: 07-30-2025 Prostate specific Ag [Mass/volume] in Serum or Plasma Prostate Specific Antigen, Screen Lab Routine Screening for prostate cancer Expected: 05/01/2025 (Approximate), Expires: 07/30/2025 [facility] Work Phone: Comment on above: Expected: 05/01/2025 (Approximate), Expi res: 07/30/2025 Start: 05-01-2025 End: 05-01-2026 Testosterone,Free and Total Testosterone,Free and Total Lab Routine Hypogonadism in male Expected: 05/01/2025 (Approximate), Expires: 05/01/2026 [facility] Work Phone: Comment on above: Expected: 05/01/2025 (Approximate), Expi res: 05/01/2026 Start: 05-01-2025 End: 05-01-2025 Patient encounter procedure [facility] Comment on above: Permanent atrial fibrillation (Multi); 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, without long-term current use of insulin (Multi); Hypertension, essential, benign; Mixed hyperlipidemia; Screening for prostate cancer Start: 04-30-2025 End: 04-30-2025 ambulatory 04/30/2025 11:00 AM EDT Infusion [facility] [address] [place] [phone] [facility] Start: 04-27-2025 End: 04-27-2025 Patient encounter procedure 04/27/2025 8:30 AM EDT Office Visit [facility] [place] [address] [address] [place] [phone] Nayeli Flores, RECORDS MANAGEMENT CLERK-BUTCHER HELPER [address] [place] [address] [facility] Start: 04-25-2025 Creatinine measurement Creatinine Level [facility] Start: 04-25-2025 Lipid panel [facility] Start: 04-25-2025 Potassium measurement Potassium Level [facility] Start: 04-23-2025 End: 04-16-2026 Basic metabolic 2000 panel - Serum or Plasma Basic metabolic panel Lab Routine Chronic systolic (congestive) heart failure (Multi) Expected: 04/23/2025 (Approximate), Expires: 04/16/2026 [facility] Service Area Work Phone: Comment on above: Expected: 04/23/2025 (Approximate), Expi res: 04/16/2026 Start: 04-22-2025 Hemoglobin A1c measurement [facility] Start: 04-16-2025 End: 04-16-2025 ambulatory 04/16/2025 10:30 AM EDT Infusion [facility] [address] [place] [phone] [facility] Start: 04-16-2025 End: 04-16-2025 Patient encounter procedure 04/16/2025 10:00 AM EDT Office Visit [address] [place] [phone] Octavio Marmolejo, RECORDS MANAGEMENT CLERK-BUTCHER HELPER [address] [place] [address] Dr Nicolle Amador, [address] [place] [address] [facility] Start: 04-08-2025 Echocardiography Echocardiogram [facility] Start: 04-08-2025 [facility] Start: 03-19-2025 End: 03-19-2025 Patient encounter procedure 03/19/2025 9:15 AM EDT Office Visit [place] [address] [address] [place] [phone] Joel Stroud MD [address] [place] [address] Dr Nicolle Amadro, [address] [place] [address] [facility] Start: 03-13-2025 Thyroid stimulating hormone measurement Class III : TSH [facility] Start: 03-04-2025 End: 03-04-2025 Patient encounter procedure 03/04/2025 8:15 AM EDT Office Visit [facility] [address] [place] [phone] Chintan Maldonado Jr., DPM [address] [place] [address] [facility] Start: 03-02-2025 COVID-19 Vaccine ( season) COVID-19 Vaccine ( season) [facility] Start: 03-02-2025 Influenza vaccination Influenza Vaccine (#1) [facility] Start: 02-06-2025 End: 11-06-2025 CBC W Auto Differential panel - Blood CBC and Auto Differential Lab Routine Permanent atrial fibrillation (Multi) Expected: 02/06/2025 (Approximate), Expires: 11/06/2025 [facility] Work Phone: Comment on above: Expected: 02/06/2025 (Approximate), Expi res: 11/06/2025 Start: 02-06-2025 End: 11-06-2025 Comprehensive metabolic 2000 panel - Serum or Plasma Comprehensive Metabolic Panel Lab Routine Hypertension, essential, benign Mixed hyperlipidemia 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, without long-term current use of insulin Permanent atrial fibrillation (Multi) Expected: 02/06/2025 (Approximate), Expires: 11/06/2025 [facility] Work Phone: Comment on above: Expected: 02/06/2025 (Approximate), Expi res: 11/06/2025 Start: 02-06-2025 End: 11-06-2025 Hemoglobin A1c/Hemoglobin.total in Blood Hemoglobin A1C Lab Routine 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, without long-term current use of insulin Expected: 02/06/2025 (Approximate), Expires: 11/06/2025 [facility] Work Phone: Comment on above: Expected: 02/06/2025 (Approximate), Expi res: 11/06/2025 Start: 02-06-2025 End: 11-06-2025 Lipid 1996 panel - Serum or Plasma Lipid Panel Lab Routine Mixed hyperlipidemia 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, without long-term current use of insulin Expected: 02/06/2025 (Approximate), Expires: 11/06/2025 [facility] Work Phone: Comment on above: Expected: 02/06/2025 (Approximate), Expi res: 11/06/2025 Start: 02-06-2025 End: 11-06-2025 Microalbumin/Creatini ne [Mass Ratio] in Urine Albumin-Creatinine Ratio, Urine Random Lab Routine Hypertension, essential, benign 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, without long-term current use of insulin Expected: 02/06/2025 (Approximate), Expires: 11/06/2025 [facility] Service Area Work Phone: Comment on above: Expected: 02/06/2025 (Approximate), Expi res: 11/06/2025 Start: 02-06-2025 End: 11-06-2025 Prostate specific Ag [Mass/volume] in Serum or Plasma Prostate Specific Antigen, Screen Lab Routine Screening for prostate cancer Expected: 02/06/2025 (Approximate), Expires: 11/06/2025 [facility] Work Phone: Comment on above: Expected: 02/06/2025 (Approximate), Expi res: 11/06/2025 Start: 02-06-2025 End: 11-06-2025 Thyrotropin [Units/volume] in Serum or Plasma Thyroid Stimulating Hormone Lab Routine 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, without long-term current use of insulin Expected: 02/06/2025 (Approximate), Expires: 11/06/2025 [facility] Work Phone: Comment on above: Expected: 02/06/2025 (Approximate), Expi res: 11/06/2025 Start: 01-30-2025 Influenza vaccination Influenza Vaccine (#1) [facility] Start: 01-29-2025 End: 01-29-2025 Patient encounter procedure [facility] Start: 01-28-2025 Hemoglobin A1c measurement [facility] Start: 01-26-2025 End: 01-26-2025 Patient encounter procedure [facility] Start: 01-25-2025 End: 12-26-2025 CBC W Auto Differential panel - Blood CBC and Auto Differential Lab Routine Chronotropic incompetence Expected: 01/25/2025 (Approximate), Expires: 12/26/2025 [facility] Work Phone: Comment on above: Expected: 01/25/2025 (Approximate), Expi res: 12/26/2025 Start: 01-25-2025 End: 12-26-2025 Cholesterol in LDL [Mass/volume] in Serum or Plasma Cholesterol, LDL Direct Lab Routine 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, without long-term current use of insulin Expected: 01/25/2025 (Approximate), Expires: 12/26/2025 [facility] Service Area Work Phone: Comment on above: Expected: 01/25/2025 (Approximate), Expi res: 12/26/2025 Start: 01-25-2025 End: 12-26-2025 Comprehensive metabolic 2000 panel - Serum or Plasma Comprehensive Metabolic Panel Lab Routine 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, without long-term current use of insulin Expected: 01/25/2025 (Approximate), Expires: 12/26/2025 [facility] Work Phone: Comment on above: Expected: 01/25/2025 (Approximate), Expi res: 12/26/2025 Start: 01-25-2025 End: 12-26-2025 Hemoglobin A1c/Hemoglobin.total in Blood Hemoglobin A1C Lab Routine 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, without long-term current use of insulin Expected: 01/25/2025 (Approximate), Expires: 12/26/2025 [facility] Work Phone: Comment on above: Expected: 01/25/2025 (Approximate), Expi res: 12/26/2025 Start: 01-24-2025 Creatinine measurement Creatinine Level [facility] Start: 01-24-2025 Potassium measurement Potassium Level [facility] Start: 01-22-2025 End: 01-22-2025 ambulatory [facility] Start: 01-22-2025 End: 01-22-2025 Patient encounter procedure 01/22/2025 8:30 AM EDT Office Visit [facility] Building [address] [place] [address] Octavio Marmolejo, RECORDS MANAGEMENT CLERK-BUTCHER HELPER [address] [place], [address] [place] [address] [facility] Start: 01-20-2025 Glaucoma screening Diabetes: Retinopathy Screening [facility] Start: 01-19-2025 End: 01-19-2025 Patient encounter procedure 01/19/2025 11:00 AM EDT Appointment [facility] [address] [place] [address] [facility] Start: 01-17-2025 Alanine aminotransferase measurement CLASS III : ALT [facility] Start: 01-17-2025 CLASS III : AST CLASS III : AST [facility] Start: 01-15-2025 End: 01-15-2026 US Heart Transthoracic Transthoracic echo (TTE) complete Echocardiography Routine SSS (sick sinus syndrome) (Multi) Shortness of breath on exertion Expected: 01/15/2025, Expires: 01/15/2026 [facility] Service Area Work Phone: Comment on above: Expected: 01/15/2025, Expires: Start: 01-15-2025 End: 01-15-2025 Patient encounter procedure 01/15/2025 11:15 AM EDT Office Visit [facility] [address] [place] [address] Aravind Jimenez MD [address] [facility] 3, [facility] [address] [place] [address] [facility] Start: 01-12-2025 End: 01-12-2025 Patient encounter procedure 01/12/2025 10:00 AM EDT Office Visit [facility] [address] [facility] [place] [address] Herman Naidu MD [address] [place] [address] [facility] Start: 12-26-2024 End: 12-26-2024 Patient encounter procedure 12/26/2024 3:00 PM EDT Office Visit [address] [address] Tye Anne MD [address] [address] [facility] Start: 12-03-2024 End: 12-03-2024 Patient encounter procedure 12/03/2024 8:15 AM EDT Office Visit [facility] [address] [place] [phone] Chintan Maldonado Jr., DPM [address] [place] [address] [facility] Start: 12-02-2024 End: 12-02-2024 Patient encounter procedure 12/02/2024 9:30 AM EDT Appointment [facility] [facility] [address] [place] [address] Herman Naidu MD [address] [place] [address] [facility] Start: 12-01-2024 End: 09-10-2025 US Head and neck soft tissue US Soft Tissue Neck Imaging Routine Lymph node enlargement Expected: 12/01/2024, Expires: 09/10/2025 [facility] Comment on above: Expected: 12/01/2024, Expires: Start: 11-15-2024 Creatinine measurement Creatinine Level [facility] Start: 11-15-2024 Potassium measurement Potassium Level [facility] Start: 11-13-2024 End: 11-13-2024 Patient encounter procedure [facility] Start: 11-11-2024 End: 11-11-2024 ambulatory [facility] Start: 11-11-2024 End: 11-11-2024 Patient encounter procedure [facility] Start: 11-06-2024 End: 05-09-2025 CBC W Auto Differential panel - Blood CBC and Auto Differential Lab Routine Permanent atrial fibrillation (Multi) Expected: 11/06/2024 (Approximate), Expires: 05/09/2025 [facility] Service Area Work Phone: Comment on above: Expected: 11/06/2024 (Approximate), Expi res: 05/09/2025 Start: 11-06-2024 End: 05-09-2025 Comprehensive metabolic 2000 panel - Serum or Plasma Comprehensive Metabolic Panel Lab Routine Hypertension, essential, benign Mixed hyperlipidemia 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, without long-term current use of insulin (Multi) Permanent atrial fibrillation (Multi) Expected: 11/06/2024 (Approximate), Expires: 05/09/2025 [facility] Work Phone: Comment on above: Expected: 11/06/2024 (Approximate), Expi res: 05/09/2025 Start: 11-06-2024 End: 05-09-2025 Hemoglobin A1c/Hemoglobin.total in Blood Hemoglobin A1C Lab Routine 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, without long-term current use of insulin (Multi) Expected: 11/06/2024 (Approximate), Expires: 05/09/2025 [facility] Work Phone: Comment on above: Expected: 11/06/2024 (Approximate), Expi res: 05/09/2025 Start: 11-06-2024 End: 05-09-2025 Microalbumin/Creatini ne [Mass Ratio] in Urine Albumin-Creatinine Ratio, Urine Random Lab Routine Hypertension, essential, benign 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, without long-term current use of insulin (Multi) Expected: 11/06/2024 (Approximate), Expires: 05/09/2025 [facility] Work Phone: Comment on above: Expected: 11/06/2024 (Approximate), Expi res: 05/09/2025 Start: 11-06-2024 End: 05-09-2025 Prostate specific Ag [Mass/volume] in Serum or Plasma PSA Lab Routine Low testosterone in male Elevated PSA measurement Expected: 11/06/2024 (Approximate), Expires: 05/09/2025 [facility] Work Phone: Comment on above: Expected: 11/06/2024 (Approximate), Expi res: 05/09/2025 Start: 11-06-2024 End: 05-09-2025 Testosterone,Free and Total Testosterone,Free and Total Lab Routine Low testosterone in male Expected: 11/06/2024 (Approximate), Expires: 05/09/2025 [facility] Work Phone: Comment on above: Expected: 11/06/2024 (Approximate), Expi res: 05/09/2025 Start: 11-06-2024 End: 05-09-2025 Thyrotropin [Units/volume] in Serum or Plasma Thyroid Stimulating Hormone Lab Routine 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, without long-term current use of insulin (Multi) Expected: 11/06/2024 (Approximate), Expires: 05/09/2025 [facility] Work Phone: Comment on above: Expected: 11/06/2024 (Approximate), Expi res: 05/09/2025 Start: 11-06-2024 End: 11-06-2024 ambulatory [facility] Start: 11-06-2024 End: 11-06-2024 Patient encounter procedure 11/06/2024 10:00 AM EDT Office Visit [place] [address] [address] Tye Anne MD [address] [address] [facility] Start: 10-31-2024 Medicare Annual Wellness Visit [facility] Start: 10-30-2024 History and physical examination, annual for health maintenance Wellness Visit [facility] Start: 10-30-2024 Medicare Wellness Visit Medicare Wellness Visit [facility] Start: 10-29-2024 End: 10-29-2024 Admission to same day surgery center 10/29/2024 3:15 PM EDT - 10/29/2024 4:20 PM EDT Surgery [facility] Lindsey ROMO [address] [place] [address] [place] [address] [place] [address] EGD, WITH STENT INSERTION [32509 (CPT )] [facility] [place] Comment on above: EGD, WITH STENT INSERTION [40229 (CPT )] Start: 10-29-2024 End: 10-29-2024 Egd endoscopic stent placement w/wire& dilation EGD, WITH STENT INSERTION Esophageal perforation 10/29/2024 3:15 PM EDT Virtual [facility] [place] Start: 10-29-2024 End: 10-29-2025 CBC W Auto Differential panel - Blood CBC and Auto Differential Lab Routine Permanent atrial fibrillation (Multi) Expected: 10/29/2024 (Approximate), Expires: 10/29/2025 [facility] Service Area Work Phone: Comment on above: Expected: 10/29/2024 (Approximate), Expi res: 10/29/2025 Start: 10-29-2024 End: 10-29-2025 Comprehensive metabolic 2000 panel - Serum or Plasma Comprehensive Metabolic Panel Lab Routine Hypertension, essential, benign Permanent atrial fibrillation (Multi) Heart failure with mildly reduced ejection fraction (HFmrEF) 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, without long-term current use of insulin Expected: 10/29/2024 (Approximate), Expires: 10/29/2025 [facility] Work Phone: Comment on above: Expected: 10/29/2024 (Approximate), Expi res: 10/29/2025 Start: 10-29-2024 End: 10-29-2025 Hemoglobin A1c/Hemoglobin.total in Blood Hemoglobin A1C Lab Routine 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, without long-term current use of insulin Expected: 10/29/2024 (Approximate), Expires: 10/29/2025 [facility] Work Phone: Comment on above: Expected: 10/29/2024 (Approximate), Expi res: 10/29/2025 Start: 10-29-2024 End: 10-29-2025 TSH with reflex to Free T4 if abnormal TSH with reflex to Free T4 if abnormal Lab Routine Permanent atrial fibrillation (Multi) Other fatigue Expected: 10/29/2024 (Approximate), Expires: 10/29/2025 [facility] Work Phone: Comment on above: Expected: 10/29/2024 (Approximate), Expi res: 10/29/2025 Start: 10-29-2024 Subsequent hospital visit by physician 10/29/2024 1:45 PM EDT Hospital Encounter [facility] [place] [address] [place] [address] [place] [address] [place] [address] [facility] [place] Start: 10-29-2024 End: 10-29-2024 Patient encounter procedure 10/29/2024 11:20 AM EDT Office Visit [address] [phone] Tye Anne MD [address] [place] [address] [facility] Start: 10-29-2024 End: 10-29-2024 ambulatory [facility] [place] Start: 10-29-2024 End: 10-29-2024 Egd endoscopic stent placement w/wire& dilation [facility] [place] Start: 10-29-2024 ambulatory [facility] [place] Start: 10-27-2024 End: 10-27-2024 ambulatory [facility] Start: 10-27-2024 End: 10-27-2024 Patient encounter procedure 10/27/2024 10:40 AM EDT Office Visit [facility] [address] [phone] [place] [address] [address] [facility], [address] [address] [facility] Start: 10-24-2024 End: 04-25-2025 CBC W Auto Differential panel - Blood CBC and Auto Differential Lab Routine 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 On colchicine therapy Expected: 10/24/2024, Expires: 04/25/2025 [facility] Service Area Work Phone: Comment on above: Expected: 10/24/2024, Expires: Start: 10-24-2024 End: 04-25-2025 Comprehensive metabolic 2000 panel - Serum or Plasma Comprehensive Metabolic Panel Lab Routine 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 On colchicine therapy Expected: 10/24/2024, Expires: 04/25/2025 [facility] Work Phone: Comment on above: Expected: 10/24/2024, Expires: Start: 10-24-2024 Hemoglobin A1c measurement A1C [facility] Start: 10-23-2024 End: 10-23-2024 ambulatory [facility] Start: 10-23-2024 End: 10-23-2024 Telemedicine consultation with patient 10/23/2024 1:45 PM EDT Telemedicine [facility] [address] [place] [address] [place] [address] [place] [address] [facility] Start: 10-22-2024 Creatinine measurement Creatinine Level [facility] Start: 10-22-2024 Lipid panel Lipid Panel [facility] Start: 10-22-2024 Potassium measurement Potassium Level [facility] Start: 10-22-2024 Thyroid stimulating hormone measurement TSH Level [facility] Start: 10-22-2024 Urine screening for protein [facility] Start: 10-20-2024 End: 10-20-2024 ambulatory [facility] Start: 10-20-2024 End: 10-20-2024 Patient encounter procedure 10/20/2024 2:30 PM EDT Appointment [facility] [address] [facility] [address] [place] [address] [facility] Start: 10-09-2024 End: 10-09-2024 Patient encounter procedure 10/09/2024 9:15 AM EDT [facility] [address] [place] [address] Reggie Aragon PA-C [address] [place] [address] [facility] Start: 10-03-2024 End: 10-03-2024 Clinical Support 10/03/2024 9:00 AM EDT Clini hardik Support [facility] [address] [place] [address] [facility] Start: 09-30-2024 End: 09-30-2024 Patient encounter procedure 09/30/2024 1:30 PM EDT Appointment [address] [address] [facility] Start: 09-26-2024 End: 09-26-2024 Admission to same day surgery center 09/26/2024 7:30 AM EDT - 09/26/2024 12:30 PM EDT Surgery [facility] [address] [place] [address] Aravind Jimenez MD [address] [facility] [address], [address] [place] [address] PPM Lead Extraction ([id number]), dcPPM Upgrade to PROPERTY CLAIM REP-P ([id number], [id number]) [45877 (CPT ) +2 more] [facility] Comment on above: PPM Lead Extraction ([id number]), dcPPM Upgra de to PROPERTY CLAIM REP-P ([id number], [id number]) [43605 (CPT ) +2 more] Start: 09-26-2024 Subsequent hospital visit by physician 09/26/2024 7:30 AM EDT Hospital Encounter [facility] [address] [place] [phone] Aravind Jimenez MD [address] [employer] [facility] 3, [address] [place], [place] [phone] Pacing-induced cardiomyopathy (Multi); Subclavian vein stenosis [facility] Comment on above: Pacing-induced cardiomyopathy (Multi); Subclavian vein stenosis Start: 09-24-2024 Orders Only 09/24/2024 Orders Only [facility] [address] [place] [address] Aravind Jimenez MD [address] [employer] [facility] 3, [address] [place] [address] Pacing-induced cardiomyopathy (Multi); Subclavian vein stenosis [facility] Comment on above: Pacing-induced cardiomyopathy (Multi); Subclavian vein stenosis Start: 09-18-2024 End: 09-18-2025 CT Head WO contrast CT head wo IV contrast Imagi ng Routine Acute intractable headache, unspecified headache type Expected: 09/18/2024, Expires: 09/18/2025 [facility] Service Area Work Phone: Comment on above: Expected: 09/18/2024, Expires: Start: 09-18-2024 End: 09-18-2024 Patient encounter procedure 09/18/2024 9:30 AM EDT Office Visit [facility] Building [facility] [address] [place] [address] Aravind Jimenez MD [address] [employer] [facility] 3, [address] [place] [address] [facility] Start: 09-10-2024 End: 09-10-2024 Patient encounter procedure 09/10/2024 11:30 AM EDT Office Visit [facility] Physicians [address] [facility] [place] [address] Herman Naidu MD [address] [place] [address] [facility] Start: 09-09-2024 End: 09-09-2024 Patient encounter procedure 09/09/2024 2:00 PM EDT Appointment [facility] [address] [place] [address] [facility] Start: 09-03-2024 End: 09-03-2024 Patient encounter procedure 09/03/2024 8:30 AM EST Office Visit [facility] [address] [place] [phone] Chintan Maldonado Jr., DPM [address] [place] [address] [facility] Start: 08-28-2024 End: 08-28-2024 Patient encounter procedure 08/28/2024 11:00 AM EST Appointment [facility] [address] [place] [phone] Monty Julien CNP [address] [place] [address] [facility] Start: 08-26-2024 End: 08-26-2024 Patient encounter procedure 08/26/2024 10:30 AM EST Office Visit [facility] Building [address] [place] [address] Aravind Jimenez MD [address] [facility] 3, [address] [address] [facility] Start: 08-20-2024 End: 08-20-2025 FL pain management [place] pain management Imaging Routine Lumbar radiculopathy Expected: 08/20/2024, Expires: 08/20/2025 [facility] Work Phone: Comment on above: Expected: 08/20/2024, Expires: Start: 08-20-2024 End: 08-20-2025 Transforaminal Transforaminal Pain Manageme nt Routine Lumbar radiculopathy Expected: 08/20/2024, Expires: 08/20/2025 [facility] Service Area Work Phone: Comment on above: Expected: 08/20/2024, Expires: Start: 08-20-2024 End: 08-20-2024 Clinical Support [facility] Start: 08-14-2024 End: 08-14-2024 ambulatory 08/14/2024 11:30 AM EST Infusion [facility] [place] [address] [place] [address] [facility] Start: 08-13-2024 End: 08-13-2024 Admission to same day surgery center [facility] Comment on above: dcPPM upgrade to PROPERTY CLAIM REP-P [91760 (CPT ) +1 more] Start: 08-13-2024 Subsequent hospital visit by physician [facility] Comment on above: Persistent atrial fibrillation (Multi); Pacing-induced cardiomyopathy (Multi) Start: 08-11-2024 End: 08-11-2024 Patient encounter procedure 08/11/2024 11:00 AM EST Appointment [place] [address] [place] [address] [facility] Start: 07-31-2024 End: 07-31-2024 ambulatory 07/31/2024 11:30 AM EST [facility]fusion [facility] [address] [place] [address] [facility] Start: 07-28-2024 End: 07-28-2024 Patient encounter procedure 07/28/2024 8:45 AM EST Office Visit [facility] [address] [place] [address] Octavio Marmolejo, RECORDS MANAGEMENT CLERK-BUTCHER HELPER [address] [facility] [place], [address] [place] [address] [facility] Start: 07-27-2024 Hemoglobin A1c measurement A1C [facility] Start: 07-26-2024 Hemoglobin A1c measurement [facility] Start: 07-17-2024 End: 07-17-2025 MR Lumbar spine WO contrast MR lumbar spine wo IV contrast Imaging Routine 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 Expected: 07/17/2024, Expires: 07/17/2025 [facility] Service Area Work Phone: Comment on above: Expected: 07/17/2024, Expires: Start: 07-17-2024 End: 07-16-2025 US Head and neck soft tissue US Soft Tissue Neck and Thyroid Imaging Routine Thyrotoxicosis without thyroid storm, unspecified thyrotoxicosis type Expected: 07/17/2024, Expires: 07/16/2025 [facility] Comment on above: Expected: 07/17/2024, Expires: Start: 07-17-2024 End: 07-17-2024 ambulatory 07/17/2024 11:30 AM EST [facility]fusion [facility] [address] [place] [address] [facility] Start: 07-17-2024 End: 07-17-2024 Patient encounter procedure 07/17/2024 10:00 AM EST Office Visit [facility] [address] [place] [address] Reggie Aragon PA-C [address] [place] [address] [facility] Start: 07-16-2024 End: 07-16-2025 Thyroid stimulating immunoglobulin Thyroid stimulating immunoglobulin Lab Routine Hyperthyroidism Expected: 07/16/2024, Expires: 07/16/2025 [facility] Comment on above: Expected: 07/16/2024, Expires: Start: 07-16-2024 End: 07-16-2025 Thyrotropin binding inhibitory immunoglobulins measurement Thyrotropin Receptor Antibody Lab Routine Hyperthyroidism Expected: 07/16/2024, Expires: 07/16/2025 [facility] Work Phone: Comment on above: Expected: 07/16/2024, Expires: Start: 07-16-2024 End: 07-16-2024 Patient encounter procedure 07/16/2024 10:00 AM EST Office Visit [facility] [address] [facility] [place] [address] Monty Julien, BUTCHER HELPER [address] [place] [address] [facility] Start: 07-11-2024 End: 07-11-2024 ambulatory 07/11/2024 11:30 AM EST Infusion [facility] [address] [place] [address] [facility] Start: 07-03-2024 End: 07-03-2024 ambulatory [facility] Start: 07-03-2024 End: 07-03-2024 Patient encounter procedure 07/03/2024 11:00 AM EST Office Visit [place] [address] [phone] Tye Anne MD [address] [address] [facility] Start: 06-27-2024 End: 06-27-2024 ambulatory 06/27/2024 2:00 PM EST Infus [facility] [address] [place] [address] [facility] Start: 06-19-2024 End: 06-19-2024 ambulatory 06/19/2024 11:30 AM EST [facility] Meghan [address] [place] [address] [place] [address] [facility] Start: 06-16-2024 End: 06-16-2024 Patient encounter procedure 06/16/2024 9:30 AM EST Office Visit [facility] [address] [place] [address] Nayeli Flores, RECORDS MANAGEMENT CLERK-BUTCHER HELPER [address] [place] [address] [facility] Start: 06-13-2024 Creatinine measurement Creatinine Level [facility] Start: 06-13-2024 Potassium measurement Potassium Level [facility] Start: 06-13-2024 End: 06-13-2024 ambulatory 06/13/2024 11:30 AM EST [facility] [place] [address] [facility] Start: 06-09-2024 End: 06-09-2024 Patient encounter procedure [facility] Start: 06-04-2024 End: 06-04-2024 Patient encounter procedure 06/04/2024 8:15 AM EST Office Visit [facility] [address] [place] [phone] Chintan Maldonado Jr., DPM [address] [place] [address] [facility] Start: 05-30-2024 End: 05-30-2024 ambulatory 05/30/2024 10:00 AM EST [facility]fusion [facility] [address] [address] [facility] Start: 05-28-2024 End: 05-28-2024 Patient encounter procedure 05/28/2024 1:15 PM EST Appointment [facility] [place] [address] [place] [address] James Alves DO [address] [place] [address] [address] Maritza Mckeon, Joseph Dowell, Cisco Navarrete, ISMAEL [facility] [place] Start: 05-27-2024 End: 05-27-2026 NM Heart Perfusion W stress and W radionuclide IV Nuclear Stress Test Cardiac Nuclear Medicine Routine Bradycardia Sinus node dysfunction (Multi) Hypertension, essential, benign Hyperlipidemia Shortness of breath on exertion Expected: 05/27/2024 (Approximate), Expires: 05/27/2026 [facility] Service Area Work Phone: Comment on above: Expected: 05/27/2024 (Approximate), Expi res: 05/27/2026 Start: 05-27-2024 End: 05-27-2024 Patient encounter procedure 05/27/2024 10:00 AM EST Office Visit [facility] Office [address] [place] [address] Aravind Jimenez MD [address] [facility] 3, [address] [address] [facility] Start: 05-16-2024 End: 05-16-2024 ambulatory 05/16/2024 11:30 AM EST [facility]fusion [facility] [address] [place] [address] [facility] Start: 05-13-2024 End: 05-13-2024 Patient encounter procedure 05/13/2024 10:45 AM EST Office Visit [facility] Office [place] [address] [place] [address] Aravind Jimenez MD [address] [facility] 3, [address] [place] [address] [facility] Office [facility] Start: 05-13-2024 End: 05-13-2024 Patient encounter procedure [facility] Start: 05-09-2024 End: 05-09-2025 Lipid 1996 panel - Serum or Plasma Lipid Panel Lab Routine Mixed hyperlipidemia 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, without long-term current use of insulin (Multi) Expected: 05/09/2024 (Approximate), Expires: 05/09/2025 [facility] Work Phone: Comment on above: Expected: 05/09/2024 (Approximate), Expi res: 05/09/2025 Start: 05-09-2024 End: 05-09-2024 Patient encounter procedure [facility] Start: 05-02-2024 End: 05-02-2024 ambulatory 05/02/2024 11:30 AM EDT Infusion [facility] [address] [place] [address] [facility] Start: 05-01-2024 End: 05-01-2025 FL pain management [place] pain management Imaging Routine Lumbar radiculopathy Expected: 05/01/2024, Expires: 05/01/2025 [facility] Work Phone: Comment on above: Expected: 05/01/2024, Expires: Start: 05-01-2024 End: 05-01-2025 Transforaminal Transforaminal Pain Manageme nt Routine Lumbar radiculopathy Expected: 05/01/2024, Expires: 05/01/2025 [facility] Service Area Work Phone: Comment on above: Expected: 05/01/2024, Expires: Start: 05-01-2024 End: 05-01-2024 Patient encounter procedure 05/01/2024 10:15 AM EDT Office Visit [facility] [address]nd [place] [address] Reggie Aragon PA-C [address] [place] [address] [facility] Start: 04-28-2024 End: 04-28-2024 Patient encounter procedure [facility] Start: 04-26-2024 Hemoglobin A1c measurement Diabetes: Hemoglobin A1C [facility] Start: 04-25-2024 Creatinine measurement Creatinine Level [facility] Start: 04-25-2024 Lipid panel Lipid Panel [facility] Start: 04-25-2024 Potassium measurement Potassium Level [facility] Start: 04-25-2024 Thyroid stimulating hormone measurement TSH Level [facility] Start: 04-24-2024 End: 04-24-2024 Patient encounter procedure 04/24/2024 8:30 AM EDT Office Visit [facility] [address] [place] [address] Joel Stroud MD [address] [facility] [place], [address] [address] [facility] Start: 04-23-2024 Hemoglobin A1c measurement A1C [facility] Start: 04-22-2024 End: 11-20-2024 C reactive protein [Mass/volume] in Serum or Plasma C-Reactive Protein Lab Routine 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 Expected: 04/22/2024, Expires: 11/20/2024 [facility] Work Phone: Comment on above: Expected: 04/22/2024, Expires: Start: 04-22-2024 End: 11-20-2024 CBC W Auto Differential panel - Blood CBC and Auto Differential Lab Routine 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 Expected: 04/22/2024, Expires: 11/20/2024 [facility] Service Area Work Phone: Comment on above: Expected: 04/22/2024, Expires: Start: 04-22-2024 End: 11-20-2024 Comprehensive metabolic 2000 panel - Serum or Plasma Comprehensive Metabolic Panel Lab Routine 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 Expected: 04/22/2024, Expires: 11/20/2024 [facility] Work Phone: Comment on above: Expected: 04/22/2024, Expires: Start: 04-22-2024 End: 11-20-2024 Erythrocyte sedimentation rate Sedimentation Rate Lab Routine 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 Expected: 04/22/2024, Expires: 11/20/2024 [facility] Work Phone: Comment on above: Expected: 04/22/2024, Expires: Start: 04-18-2024 End: 04-18-2024 ambulatory 04/18/2024 11:30 AM EDT [facility] [address] [place] [address] [facility] Start: 04-12-2024 CLASS III : OFFICE VISIT CLASS III : OFFICE VISIT [facility] Start: 04-08-2024 End: 04-08-2024 Patient encounter procedure 04/08/2024 8:00 AM EDT Appointment [place] [id number] [address] [facility] Start: 04-04-2024 End: 04-04-2024 ambulatory 04/04/2024 1:30 PM EDT [facility] [address] [place] [address] [facility] Start: 03-21-2024 End: 03-21-2024 ambulatory 03/21/2024 2:00 PM EDT [facility] [address] [place] [address] [facility] Start: 03-16-2024 Creatinine measurement Creatinine Level [facility] Start: 03-16-2024 Potassium measurement Potassium Level [facility] Start: 03-13-2024 End: 03-13-2026 Heart Transthoracic Transthoracic Echo (TTE) Complete Echocardiography Routine Atrial fibrillation, unspecified type (Multi) Bradycardia Sinus node dysfunction (Multi) Chronic heart failure with normal ejection fraction (Multi) Expected: 03/13/2024 (Approximate), Expires: 03/13/2026 [facility] Service Area Work Phone: Comment on above: Expected: 03/13/2024 (Approximate), Expi res: 03/13/2026 Start: 03-13-2024 Patient encounter procedure Outpatient [facility] Start: 13-Mar-2024 10:15 Joel Stroud Intent [facility] Start: 03-13-2024 End: 03-13-2024 Patient encounter procedure [facility] Start: 03-07-2024 End: 03-07-2024 ambulatory 03/07/2024 1:30 PM EDT Infus ion [facility] [address] [place] [address] [facility] Start: 03-06-2024 End: 03-06-2025 Epidural steroid injection Epidural Steroid Injection Pain Management Routine Lumbar radiculopathy Expected: 03/06/2024, Expires: 03/06/2025 [facility] Service Area Work Phone: Comment on above: Expected: 03/06/2024, Expires: 5 Start: 03-06-2024 End: 03-06-2025 FL pain management [place] pain management Imaging Routine Lumbar radiculopathy Expected: 03/06/2024, Expires: 03/06/2025 [facility] Work Phone: Comment on above: Expected: 03/06/2024, Expires: 5 Start: 03-06-2024 End: 03-06-2024 Patient encounter procedure 03/06/2024 8:15 AM EDT Office [facility] [address] [place] [address] 2nd [place] [address] Reggie Aragon PA-C [address] [place] [address] [place] [address] [facility] Start: 03-05-2024 End: 03-05-2024 Patient encounter procedure 03/05/2024 9:30 AM EDT Office Visit [facility] [address] [place] [phone] Chintan Maldonado Jr., DPM [address] [place] [address] [facility] Start: 03-02-2024 COVID-19 Vaccine ( season) COVID-19 Vaccine ( season) [facility] Start: 03-02-2024 COVID-19 Vaccine ( season) COVID-19 Vaccine ( season) [facility] Start: 03-02-2024 Influenza vaccination Influenza Vaccine (#1) [facility] Start: 03-02-2024 [facility] Start: 02-08-2024 End: 02-08-2024 ambulatory 02/08/2024 2:00 PM EDT [facility] [address] [place] [address] [facility] Start: 01-31-2024 End: 10-30-2024 CBC W Auto Differential panel - Blood CBC and Auto Differential Lab Routine Low testosterone in male Expected: 01/31/2024 (Approximate), Expires: 10/30/2024 [facility] Service Area Work Phone: Comment on above: Expected: 01/31/2024 (Approximate), Expi res: 10/30/2024 Start: 01-31-2024 End: 10-30-2024 Comprehensive metabolic 2000 panel - Serum or Plasma Comprehensive Metabolic Panel Lab Routine Hypertension, essential, benign 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, without long-term current use of insulin (Multi) Low testosterone in male Expected: 01/31/2024 (Approximate), Expires: 10/30/2024 [facility] Work Phone: Comment on above: Expected: 01/31/2024 (Approximate), Expi res: 10/30/2024 Start: 01-31-2024 End: 10-30-2024 Hemoglobin A1c/Hemoglobin.total in Blood Hemoglobin A1C Lab Routine 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, without long-term current use of insulin (Multi) Expected: 01/31/2024 (Approximate), Expires: 10/30/2024 [facility] Work Phone: Comment on above: Expected: 01/31/2024 (Approximate), Expi res: 10/30/2024 Start: 01-31-2024 End: 10-30-2024 Testosterone,Free and Total Testosterone,Free and Total Lab Routine Low testosterone in male Expected: 01/31/2024 (Approximate), Expires: 10/30/2024 [facility] Work Phone: Comment on above: Expected: 01/31/2024 (Approximate), Expi res: 10/30/2024 Start: 01-31-2024 End: 01-31-2024 Patient encounter procedure 01/31/2024 9:40 AM EDT Office Visit Medical [facility] [address] [place] [address] Tye Anne MD [address] [place] [address] Medical [facility] Start: 01-25-2024 End: 01-25-2024 ambulatory 01/25/2024 2:00 PM EDT [facility] [address] [place] [address] [facility] Start: 01-22-2024 Hemoglobin A1c measurement Diabetes: Hemoglobin A1C [facility] Start: 01-11-2024 End: 01-11-2024 ambulatory 01/11/2024 2:00 PM EDT [facility] [address] [place] [address] [facility] Start: 12-30-2023 CLASS III : OFFICE VISIT CLASS III : OFFICE VISIT [facility] Start: 12-15-2023 CLASS III : OFFICE VISIT CLASS III : OFFICE VISIT [facility] Start: 12-05-2023 End: 12-05-2023 Patient encounter procedure 12/05/2023 9:30 AM EDT Office Visit [facility] [address] [place] [address] Chintan Maldonado Jr., DPM [address] [place] [address] [facility] Start: 11-30-2023 End: 11-30-2023 Patient encounter procedure 11/30/2023 9:30 AM EDT Office Visit [facility] [address] [place] [address] Chintan Maldonado Jr., DPM [address] [place] [address] [facility] Start: 11-21-2023 End: 05-20-2024 C reactive protein [Mass/volume] in Serum or Plasma C-Reactive Protein Lab Routine 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 Expected: 11/21/2023, Expires: 05/20/2024 [facility] Work Phone: Comment on above: Expected: 11/21/2023, Expires: 4 Start: 11-21-2023 End: 05-20-2024 CBC W Auto Differential panel - Blood CBC and Auto Differential Lab Routine 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 Expected: 11/21/2023, Expires: 05/20/2024 [facility] Service Area Work Phone: Comment on above: Expected: 11/21/2023, Expires: 4 Start: 11-21-2023 End: 05-20-2024 Comprehensive metabolic 2000 panel - Serum or Plasma Comprehensive Metabolic Panel Lab Routine 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 Expected: 11/21/2023, Expires: 05/20/2024 [facility] Work Phone: Comment on above: Expected: 11/21/2023, Expires: 4 Start: 11-21-2023 End: 05-20-2024 Erythrocyte sedimentation rate Sedimentation Rate Lab Routine 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 [address] [place] [address] Tye Anne MD [address] [place] [address] [facility] Start: 10-30-2023 End: 04-30-2024 CBC W Auto Differential panel - Blood CBC and Auto Differential Lab Routine Permanent atrial fibrillation (CMS/HCC) Expected: 10/30/2023 (Approximate), Expires: 04/30/2024 [facility] Work Phone: Comment on above: Expected: 10/30/2023 (Approximate), Expi res: 04/30/2024 Start: 10-30-2023 End: 04-30-2024 Comprehensive metabolic 2000 panel - Serum or Plasma Comprehensive Metabolic Panel Lab Routine Hypertension, essential, benign Mild CAD Permanent atrial fibrillation (CMS/HCC) 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, without long-term current use of insulin (CMS/HCC) Expected: 10/30/2023 (Approximate), Expires: 04/30/2024 [facility] Work Phone: Comment on above: Expected: 10/30/2023 (Approximate), Expi res: 04/30/2024 Start: 10-30-2023 End: 04-30-2024 Hemoglobin A1c/Hemoglobin.total in Blood Hemoglobin A1C Lab Routine 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, without long-term current use of insulin (CMS/HCC) Expected: 10/30/2023 (Approximate), Expires: 04/30/2024 [facility] Work Phone: Comment on above: Expected: 10/30/2023 (Approximate), Expi res: 04/30/2024 Start: 10-30-2023 End: 04-30-2024 Microalbumin/Creatini ne [Mass Ratio] in Urine Albumin , Urine Random Lab Routine Hypertension, essential, benign 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, without long-term current use of insulin (CMS/HCC) Expected: 10/30/2023 (Approximate), Expires: 04/30/2024 [facility] Service Area Work Phone: Comment on above: Expected: 10/30/2023 (Approximate), Expi res: 04/30/2024 Start: 10-30-2023 End: 04-30-2024 Testosterone, total and free Testosterone, total and free Lab Routine Low testosterone Expected: 10/30/2023 (Approximate), Expires: 04/30/2024 [facility] Work Phone: Comment on above: Expected: 10/30/2023 (Approximate), Expi res: 04/30/2024 Start: 10-30-2023 End: 04-30-2024 Thyrotropin [Units/volume] in Serum or Plasma Thyroid Stimulating Hormone Lab Routine 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, without long-term current use of insulin ([facility]) Expected: 10/30/2023 (Approximate), Expires: 04/30/2024 [facility] Work Phone: Comment on above: Expected: 10/30/2023 (Approximate), Expi res: 04/30/2024 Start: 10-25-2023 Hemoglobin A1c measurement A1C [facility] Start: 10-23-2023 End: 10-23-2023 Clinical Support 10/23/2023 9:30 AM EDT Clini hardik Support [facility] [address] [facility] 1st [place] [address] [facility] Start: 10-18-2023 End: 10-17-2024 Transforaminal Transforaminal Procedures Routine Lumbar radiculopathy Expected: 10/18/2023 (Approximate), Expires: 10/17/2024 [facility] Work Phone: Comment on above: Expected: 10/18/2023 (Approximate), Expi res: 10/17/2024 Start: 10-15-2023 End: 10-15-2023 Patient encounter procedure 10/15/2023 2:30 PM EDT Office [facility] [address] [place] [address] [address] [place] [address] Nayeli Flores, RECORDS MANAGEMENT CLERK-BUTCHER HELPER [address] [place] [address] [facility] Start: 10-04-2023 Creatinine measurement Creatinine Level [facility] Start: 10-04-2023 Lipid panel Lipid Panel [facility] Start: 10-04-2023 Potassium measurement Potassium Level [facility] Start: 10-04-2023 Thyroid stimulating hormone measurement TSH Level [facility] Start: 10-04-2023 Urine screening for protein Diabetes: Urine Protein Screening [facility] Start: 09-24-2023 End: 09-24-2023 Patient encounter procedure 09/24/2023 11:00 AM EDT Appointment [address] [address] [facility] Start: 09-20-2023 CLASS III : OFFICE VISIT CLASS III : OFFICE VISIT [facility] Start: 09-12-2023 End: 09-12-2023 Patient encounter procedure 09/12/2023 1:00 PM EDT Appointment [facility] [address] [place] [address] Reggie Aragon PA-C [address] [place] [address] [facility] Start: 09-04-2023 End: 09-03-2024 MR Lumbar spine WO contrast MR lumbar spine wo IV contrast Imaging Routine Lumbar radiculopathy 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 stenosis Cervical radiculitis Expected: 09/04/2023, Expires: 09/03/2024 [facility] Service Area Work Phone: Comment on above: Expected: 09/04/2023, Expires: Start: 09-04-2023 End: 09-04-2023 Patient encounter procedure 09/04/2023 8:00 AM EST Office [facility] [address]nd [place] [address] [place] [address] [facility] Start: 2023 End: 2023 Patient encounter procedure 2023 9:15 AM EST Office Visit [facility] [address] [place] [address] Chintan Maldonado Jr., DPM [address] [place] [address] [facility] Start: 08-07-2023 End: 08-07-2024 MR Cervical spine WO contrast MR cervical spine wo IV contrast Imaging Routine Cervical radiculitis Expected: 08/07/2023, Expires: 08/07/2024 [facility] Work Phone: Comment on above: Expected: 08/07/2023, Expires: Start: 08-07-2023 End: 08-07-2024 XR Cervical spine 2 or 3 Views XR cervical spine 2-3 views Imaging Routine Cervical radiculitis Expected: 08/07/2023 (Approximate), Expires: 08/07/2024 [facility] Service Area Work Phone: Comment on above: Expected: 08/07/2023 (Approximate), Expi res: 08/07/2024 Start: 08-07-2023 End: 08-07-2024 XR Lumbar spine 2 or 3 Views XR lumbar spine 2-3 views Imaging Routine Chronic right-sided low back pain without sciatica Expected: 08/07/2023 (Approximate), Expires: 08/07/2024 [facility] Work Phone: Comment on above: Expected: 08/07/2023 (Approximate), Expi res: 08/07/2024 Start: 08-07-2023 End: 08-07-2024 XR Pelvis 1 or 2 Views [facility] Work Phone: Comment on above: Expected: 08/07/2023, Expires: Once for 1 Occurrenc es starting 08/07/2023 until 08/07/2023 Start: 08-07-2023 End: 08-07-2024 XR Shoulder - right 2 Views XR shoulder right 2+ views Imaging Routine Chronic right shoulder pain Arthritis of right shoulder region Expected: 08/07/2023, Expires: 08/07/2024 [facility] Work Phone: Comment on above: Expected: 08/07/2023, Expires: 5 Start: 08-07-2023 End: 08-07-2023 Patient encounter procedure 08/07/2023 8:45 AM EST Office Visit [facility] [address] [place] [address] Reggie Aragon PA-C [address] [place] [address] [facility] Start: 08-01-2023 CLASS III : OFFICE VISIT CLASS III : OFFICE VISIT [facility] Start: 07-26-2023 Hemoglobin A1c measurement Diabetes: Hemoglobin A1C [facility] Start: 07-26-2023 End: 07-26-2023 Patient encounter procedure 07/26/2023 8:40 AM EST Office Visit [facility] [address] [place] [address] Tye Anne MD [address] [place] [address] [facility] Start: 07-24-2023 End: 07-24-2023 ambulatory 07/24/2023 9:15 AM EST [facility] [address] [place] [address] Tye Anne MD [address] [place] [address] Katarzyna Adams, PT [facility] Start: 07-19-2023 End: 07-19-2023 ambulatory [facility] Start: 07-17-2023 End: 07-17-2023 ambulatory 07/17/2023 9:15 AM EST Treatment [facility] [address] [place] [address] Tye Anne MD [address] [place] [address] Katarzyna Adams, PT [facility] Start: 07-12-2023 End: 07-12-2023 ambulatory 07/12/2023 9:15 AM EST Treatment [facility] [address] [place] [address] Tye Anne MD [address] [place] [address] Anders Robledo PTA [facility] Start: 07-11-2023 Medicare Annual Wellness Visit Medicare Annual Wellness Visit (AWV) [facility] Start: 07-10-2023 End: 07-10-2023 ambulatory 07/10/2023 9:15 AM EST Treatment [facility] [address] [place] [address] Tye Anne MD [address] [place] [address] Katarzyna Adams, PT [facility] Start: 07-05-2023 End: 07-05-2023 ambulatory [facility] Start: 07-03-2023 End: 07-03-2023 ambulatory 07/03/2023 9:15 AM EST Treatment [facility] [address] [place] [address] Tye Anne MD [address] [place] [address] Anders Robledo PTA [facility] Start: 06-27-2023 End: 06-27-2023 ambulatory 06/27/2023 7:00 AM EST Treatment [facility] [address] [place] [address] Tye Anne MD [address] [place] [address] Tye Lobato PTA Discharge Disposition: Home [facility] Start: 06-13-2023 End: 06-13-2024 CBC W Auto Differential panel - Blood [facility] Service Area Work Phone: Comment on above: Expected: 06/13/2023 (Approximate), Expi res: 06/13/2024 Start: 06-13-2023 End: 06-13-2024 Cobalamin (Vitamin B12) [Mass/volume] in Serum or Plasma [facility] Work Phone: Comment on above: Expected: 06/13/2023 (Approximate), Expi res: 06/13/2024 Start: 06-13-2023 End: 06-13-2024 Comprehensive metabolic 2000 panel - Serum or Plasma [facility] Work Phone: Comment on above: Expected: 06/13/2023 (Approximate), Expi res: 06/13/2024 Start: 05-23-2023 End: 05-23-2023 Patient encounter procedure 05/23/2023 11:00 AM EST Office Visit [facility] [address] [address] [phone] [place] [address] Adam Singh [facility], [address] [address] [facility] Start: 05-15-2023 FUV, Provider: Sheyla Schultz, Status: Pen, Time: 11:00 AM FUV, Provider: Sheyla Schultz, Status: Pen, Time: 11:00 AM [id number] [place] [address] DO Work Phone: Start: 05-15-2023 End: 05-15-2023 Patient encounter procedure Medicine [facility] Start: 05-11-2023 End: 05-11-2023 Patient encounter procedure 05/11/2023 9:30 AM EST Office Visit [facility] Phys[facility] [address] [place] [address] Chintan Maldonado Jr., DPM [address] [place] [address] [facility] Start: 05-09-2023 CLASS III : OFFICE VISIT CLASS III : OFFICE VISIT [facility] Start: 05-03-2023 FUV, Provider: Reggie Aragon, Status: Pen, Time: 9:15 AM FUV, Provider: Reggie Aragon, Status: Pen, Time: 9:15 AM MP-Pain Management-Cathryn vásquez Work Phone: Start: 05-03-2023 Patient encounter procedure [facility] Start: 05-03-2023 End: 05-03-2023 Patient encounter procedure 05/03/2023 9:15 AM EDT Office Visit [facility] Office Building [address] [place] [address] 2nd [place] [address] Reggie Aragon C, PA-C [address] [place] [address] [place] [address] [facility] Start: 04-30-2023 End: 04-30-2024 Lipid 1996 panel - Serum or Plasma Lipid Panel Lab Routine Mild CAD 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, without long-term current use of insulin ([facility]) Expected: 04/30/2023 (Approximate), Expires: 04/30/2024 [facility] Work Phone: Comment on above: Expected: 04/30/2023 (Approximate), Expi res: 04/30/2024 Start: 04-30-2023 End: 04-30-2023 Patient encounter procedure 04/30/2023 9:40 AM EDT Office Visit [facility] [address] [place] [address] Tye Anne MD [address] [place] [address] [facility] Start: 04-10-2023 End: 04-10-2023 Patient encounter procedure 04/10/2023 8:30 AM EDT Appointment [facility] [address] [place] [phone] [facility] Start: 04-10-2023 End: 04-10-2023 Patient encounter procedure [facility] Cardiology Start: 04-04-2023 Hemoglobin A1c measurement A1C [facility] Start: 03-02-2023 COVID-19 Vaccine ( season) COVID-19 Vaccine () [facility] Start: 03-02-2023 Influenza vaccination [facility] Start: 03-01-2023 FUV, Provider: Joel Stroud, Status: Pen, Time: 9:15 AM FUV, Provider: Joel Stroud, Status: Pen, Time: 9:15 AM RN-Bbhxnnqhft-Erv artur [address] [place] [address] Work Phone: Start: 03-01-2023 Patient encounter procedure [facility] Cardiology Restoration Start: 02-24-2023 CLASS III : OFFICE VISIT CLASS III : OFFICE VISIT [facility] Start: 02-12-2023 FUV, Provider: Barry Solorio, Status: Pen, Time: 10:40 AM FUV, Provider: Barry Solorio, Status: Pen, Time: 10:40 AM MW-Yronihipnsez-I mitchell A 2480 DO Work Phone: Start: 02-12-2023 Patient encounter procedure [facility] Start: 02-05-2023 FUV, Provider: Susana Gibson, Status: Pen, Time: 10:00 AM FUV, Provider: Susana Gibson, Status: Pen, Time: 10:00 AM MP-Pain Management-Cathryn vásquez Work Phone: Start: 02-02-2023 End: 02-02-2023 Follow-up encounter 02/02/2023 1:30 PM EDT Follow-Up [facility] [address] [phone] Elías Hsu MD [address] [phone] [facility] Start: 02-02-2023 End: 02-02-2023 Patient encounter procedure 02/02/2023 9:30 AM EDT Office Visit [facility] [address] [place] [phone] Chintan Maldonado Jr., DPM [address] [phone] [facility] Start: 01-20-2023 Glaucoma screening Diabetes: Retinopathy Screening [facility] Start: 01-20-2023 Ophthalmic examination and evaluation Diabetes: Retinopathy Screening [facility] Start: 01-19-2023 End: 01-19-2023 Follow-up encounter 01/19/2023 1:00 PM EDT Follow-Up [facility] [address] [place] [address] Elías Hsu MD [address] [place] [address] [facility] Start: 01-16-2023 Glaucoma screening [facility] Start: 01-12-2023 End: 01-12-2023 Patient encounter procedure 01/12/2023 10:00 AM EDT Office Visit [facility] [address] [place] [address] Tye Anne MD [address] [place] [address] [facility] Start: 01-05-2023 End: 01-05-2023 Admission to same day surgery center 01/05/2023 10:15 AM EDT - 01/05/2023 11:30 AM EDT Surgery [facility] Periop [address] [place] [address] Elías Hsu MD [address] [place] [address] Left elbow bursectomy [facility] Comment on above: Left elbow bursectomy Start: 01-05-2023 End: 01-05-2023 BURSECTOMY ELBOW BURSECTOMY ELBOW Olecranon bursitis of left elbow 01/05/2023 10:15 AM EDT [facility] Start: 01-05-2023 Subsequent hospital visit by physician [facility] Start: 01-02-2023 Hemoglobin A1c measurement Diabetes: Hemoglobin A1C [facility] Start: 01-01-2023 Hemoglobin A1c measurement A1C [facility] Start: 12-29-2022 End: 12-29-2022 Patient encounter procedure 12/29/2022 3:45 PM EDT Surgical Consult [facility] [address] [place] [address] Elías Hsu MD [address] [place] [address] [facility] Start: 12-27-2022 End: 12-27-2022 Patient encounter procedure 12/27/2022 1:00 PM EDT Office Visit [facility] [address] [place] [address] Yaritza Luna, GIO [address] [place] [address] [facility] Start: 11-07-2022 End: 05-10-2023 Body Fluid Anaerobic Culture [facility] Comment on above: Expected: 11/07/2022, Expires: 3 Start: 11-07-2022 End: 05-10-2023 Microbial culture, body fluid [facility] Work Phone: Comment on above: Expected: 11/07/2022, Expires: 3 Start: 11-06-2022 FUV, Provider: Susana Gibson, Status: Pen, Time: 9:30 AM FUV, Provider: Susana Gibson, Status: Pen, Time: 9:30 AM [facility]Pain Management-Samari vásquez Work Phone: Start: 11-06-2022 Patient encounter procedure [facility] Pain Start: 11-03-2022 End: 11-03-2022 Patient encounter procedure [facility] Start: 10-23-2022 Patient encounter procedure Cardiology [facility] Start: 10-09-2022 EPV, Provider: Tye Anne, Status: Pen, Time: 9:20 AM EPV, Provider: Tye Anne, Status: Pen, Time: 9:20 AM -Medical [facility] Work Phone: Start: 10-09-2022 Patient encounter procedure [facility] Medicine [place] Start: 10-03-2022 End: 10-03-2022 Patient encounter procedure [facility] Cardiology Start: 10-02-2022 FUV, Provider: Susana Gibson, Status: Pen, Time: 10:30 AM FUV, Provider: Susana Gibson, Status: Pen, Time: 10:30 AM -[facility] Work Phone: Start: 08-31-2022 FUV, Provider: Joel Stroud, Status: Pen, Time: 10:45 AM FUV, Provider: Joel Stroud, Status: Pen, Time: 10:45 AM OF-Qhtdngusai-Hlu [address] Work Phone: Start: 08-31-2022 Patient encounter procedure [facility] Cardiology Restoration Start: 08-07-2022 FUV, Provider: Susana Gibson, Status: Pen, Time: 11:30 AM FUV, Provider: Susana Gibson, Status: Pen, Time: 11:30 AM UQ-Qznjuslngh-Olg ja EP Lab Work Phone: Start: 08-04-2022 End: 08-04-2022 Patient encounter procedure 08/04/2022 Office Visit Podiatry Chintan Maldonado Jr., DPM [address] [place] [address] [facility] Start: 08-03-2022 End: 08-03-2022 Patient encounter procedure 08/03/2022 Office Visit Sports Medicine Yaritza Luna, BUTCHER HELPER [address] [place] [address] [facility] Start: 08-01-2022 End: 01-29-2023 Aerobic microbial culture [facility] Comment on above: Expected: 08/01/2022, Expires: 3 Start: 07-24-2022 Patient encounter procedure [id number], Provider: [facility], Status: Pen, Time: 11:30 AM [facility] Work Phone: Start: 07-10-2022 FUV, Provider: Susana Gibson, Status: Pen, Time: 10:00 AM FUV, Provider: Susana Gibson, Status: Pen, Time: 10:00 AM MP-Pain Management-Samari vásquez Work Phone: Start: 07-10-2022 EPV, Provider: Tye Anne, Status: Pen, Time: 8:20 AM EPV, Provider: Tye Anne, Status: Pen, Time: 8:20 AM [facility] Work Phone: Start: 07-08-2022 History and physical examination, annual for health maintenance Wellness Visit [facility] Start: 06-13-2022 Urine screening for protein Urine Microalbumin [facility] Start: 06-02-2022 Echocardiography [facility] Start: 05-09-2022 End: 05-09-2022 Patient encounter procedure 05/09/2022 Office Visit Sports Medicine Yaritza Luna, BUTCHER HELPER [address] [place] [address] [facility] Start: 05-05-2022 End: 05-05-2022 Patient encounter procedure 05/05/2022 Office Visit Podiatry Chintan Maldonado Jr., DPM [address] [place] [address] [facility] Start: 04-10-2022 FUV, Provider: Susana Gibson, Status: Pen, Time: 10:00 AM FUV, Provider: Susana Gibson, Status: Pen, Time: 10:00 AM MP-Pain Management-Samari vásquez Work Phone: Start: 03-17-2022 COVID-19 Vaccine (4 - Booster for Pfizer series) COVID-19 Vaccine (4 - Booster for Pfizer series) [facility] Start: 03-17-2022 COVID-19 Vaccine (5 - Booster for Pfizer series) COVID-19 Vaccine (5 - Booster for Pfizer series) [facility] Start: 03-17-2022 COVID-19 Vaccine (5 - Pfizer series) COVID-19 Vaccine (5 - Pfizer series) [facility] Start: 03-02-2022 Influenza vaccination [facility] Start: 02-28-2022 FUV, Provider: Susana Gibson, Status: Pen, Time: 9:30 AM FUV, Provider: Susana Gibson, Status: Pen, Time: 9:30 AM KX-Iwcqvcatjj-Qxx land [address] Work Phone: Start: 02-23-2022 FUV, Provider: Joel Stroud, Status: Pen, Time: 10:45 AM FUV, Provider: Joel Stroud, Status: Pen, Time: 10:45 AM EX-Idebncajpp-Oug [address] Work Phone: Start: 02-23-2022 Patient encounter procedure [facility] Cardiology Restoration Start: 02-10-2022 End: 02-10-2022 Patient encounter procedure 02/10/2022 Office Visit PodiatrChintan Carrillo Jr., DPM [address] [place] [address] [facility] Start: 01-19-2022 FUV, Provider: Ronald Mesa, Status: Pen, Time: 9:40 AM FUV, Provider: Abelino Mesa, Status: Pen, Time: 9:40 AM [facility] Work Phone: Start: 01-05-2022 EPV, Provider: Tye Anne, Status: Pen, Time: 8:40 AM EPV, Provider: Tye Anne, Status: Pen, Time: 8:40 AM -Medical [facility] Work Phone: Start: 01-05-2022 Patient encounter procedure [facility] Medicine [place] Start: 12-15-2021 FUV, Provider: Ronald Mesa, Status: Pen, Time: 9:20 AM FUV, Provider: Abelino Mesa, Status: Pen, Time: 9:20 AM [facility] Work Phone: Start: 12-15-2021 Patient encounter procedure [facility] [place] Start: 12-13-2021 Patient encounter procedure [facility] Start: 12-12-2021 Patient encounter procedure [facility] Cardiology Start: 11-24-2021 Edema of right lower leg Edema of right lower leg Date: 24-Nov-2021 [facility] Start: 11-11-2021 End: 11-11-2021 Patient encounter procedure 11/11/2021 Office Visit PodiatrChintan Carrillo Jr., DPM [address] [place] [address] [facility] Start: 09-16-2021 End: 09-16-2021 Patient encounter procedure 09/16/2021 Office Visit Podiatry Chintan Maldonado Jr., DPM [address] [place] [address] [facility] Physician [facility] Podiatry Start: 08-17-2021 FUV, Provider: Nate Ni, Status: Pen, Time: 1:00 PM FUV, Provider: Nate Ni, Status: Pen, Time: 1:00 PM [facility] Work Phone: Start: 08-17-2021 Patient encounter procedure [facility] Cardiology Restoration Start: 08-10-2021 FUV, Provider: Joel Stroud, Status: Pen, Time: 10:45 AM FUV, Provider: Joel Stroud, Status: Pen, Time: 10:45 AM [facility] Work Phone: Start: 08-10-2021 End: 08-10-2021 Patient encounter procedure 08/10/2021 Office Visit Podiatry Chintan Maldonado Jr., DPM [address] [facility] [place] [address] [facility] Physician [facility] Podiatry Start: 07-08-2021 EPV, Provider: Tye Anne, Status: Pen, Time: 8:40 AM EPV, Provider: Tye Anne, Status: Pen, Time: 8:40 AM SO-Mhuukeujty-Tfh land [address] [place] Work Phone: Start: 07-08-2021 Patient encounter procedure [facility] Medicine [place] Start: 06-29-2021 FUV, Provider: Joel Stroud, Status: Pen, Time: 10:45 AM FUV, Provider: Joel Stroud, Status: Pen, Time: 10:45 AM IT-Afmjtbjsvd-Pkq land [address] [place] Work Phone: Start: 06-29-2021 Patient encounter procedure [facility] Cardiology Restoration Start: 06-16-2021 NPV, Provider: Ronald Mesa, Status: Pen, Time: 11:00 AM NPV, Provider: Abelino Mesa, Status: Pen, Time: 11:00 AM [facility] Work Phone: Start: 06-06-2021 FUV, Provider: Susana Gibson, Status: Pen, Time: 8:45 AM FUV, Provider: Susana Gibson, Status: Pen, Time: 8:45 AM [facility] Work Phone: Start: 06-06-2021 Patient encounter procedure [facility] Pain Start: 06-02-2021 Patient encounter procedure [facility] Cardiology Start: 05-30-2021 FUV, Provider: Nate Ni, Status: Pen, Time: 11:00 AM FUV, Provider: Nate Ni, Status: Pen, Time: 11:00 AM [facility] Work Phone: Start: 05-13-2021 End: 05-14-2022 Sodium Chloride 0.9% Injecta ble Flush Peripheral Line ; via Peripheral LineVolume = 1.5 mL IntraVenous Flush Every 8 Hours and as Needed Start: 13-May-2021 End: 13-May-2022 Ordered: 13-May-2021 Zoraida Diana [facility] Start: 04-14-2021 COVID-19 Vaccine (3 - Booster for Pfizer series) COVID-19 Vaccine (3 - Booster for Pfizer series) [facility] Start: 04-04-2021 FUV, Provider: Susana Gibson, Status: Pen, Time: 10:45 AM FUV, Provider: Susana Gibson, Status: Pen, Time: 10:45 AM [facility]Pain Management-Samari vásquez Work Phone: Start: 03-04-2021 Hemoglobin A1c measurement A1C [facility] Start: 03-02-2021 Influenza vaccination [facility] Start: 02-04-2021 End: 02-04-2021 Patient encounter procedure [facility] Start: 01-07-2021 End: 01-07-2021 Patient encounter procedure 01/07/2021 Office Visit Podiatry Chintan Maldonado Jr., ETHAN [address] [place] [address] [phone] [facility] Start: 01-05-2021 EPV, Provider: Tye Anne, Status: Pen, Time: 9:00 AM EPV, Provider: Tye Anne, Status: Pen, Time: 9:00 AM [facility] Work Phone: Start: 01-04-2021 End: 01-04-2021 Patient encounter procedure 01/04/2021 Procedure visit Neurology VásquezVincent MD [address] [address] [phone] [facility] Start: 12-30-2020 Pneumococcal vaccination Pneumococcal Vaccine Age 65+ (2 of 2 - PPSV23) [facility] Start: 11-30-2020 End: 11-30-2020 ambulatory 11/30/2020 Treatment Rehabilitation Tye Anne MD [address] [place] [address] Jose Lazar, PT [facility] Start: 11-25-2020 End: 11-25-2020 ambulatory 11/25/2020 Treatment Rehabilitation Tye Anne MD [address] [place] [address] Jose Lazar, PT [facility] Start: 11-23-2020 End: 11-23-2020 ambulatory 11/23/2020 Treatment Rehabilitation Tye Anne MD [address] [place] [address] Jose Lazar, PT [facility] Start: 11-18-2020 End: 11-18-2020 ambulatory 11/18/2020 Treatment Rehabilitation Tye Anne MD [address] [place] [phone] Anders Robledo, [facility] Start: 11-16-2020 End: 11-16-2020 ambulatory 11/16/2020 Treatment Rehabilitation Tye Anne MD [address] [place], [place] [phone] Concepción Andre, [facility] Start: 11-11-2020 End: 11-11-2020 ambulatory 11/11/2020 Treatment Rehabilitation Tye Anne MD [address] [place] [phone] Jose Lazar, PT [facility] Start: 11-09-2020 End: 11-09-2020 ambulatory 11/09/2020 Treatment Rehabilitation Tye Anne MD [address] [place] [phone] Tye Lobato [facility] Start: 03-02-2020 Influenza vaccination Sequential Influenza Vaccine (#1) [facility] Start: 03-02-2020 Influenza vaccination given [facility] Start: 03-13-2019 Depression screening using PHQ-9 (Patient Health Questionnaire 9) score [facility] Start: 03-02-2019 Influenza vaccination given SEQUENTIAL INFLUENZA VACCINE (#1) [facility] Start: 2018 Respiratory Syncytial Virus Immunization: Risk, 60-74 Risk, or 75+ (1 - 1-dose 75+ series) Respiratory Syncytial Virus Immunization: Risk, 60-74 Risk, or 75+ (1 - 1-dose 75+ series) [facility] Start: 2018 RSV High Risk: (Elderly (60+) or Population) (1 - 1-dose 75+ series) RSV High Risk: (Elderly (60+) or Population) (1 - 1-dose 75+ series) [facility] Start: 2018 [facility] Start: 03-02-2018 Influenza vaccination SEQUENTIAL INFLUENZA VACCINE (#1) [facility] Start: 03-02-2018 Influenza vaccination given SEQUENTIAL INFLUENZA VACCINE (#1) [facility] Start: 03-02-2017 Influenza vaccination SEQUENTIAL INFLUENZA VACCINE (#1) [facility] Work Phone: Start: 03-02-2017 SEQUENTIAL INFLUENZA VACCINE (#1) SEQUENTIAL INFLUENZA VACCINE (#1) [facility] Work Phone: Start: 2008 Fall risk assessment [facility] Start: 2008 Pneumococcal vaccination PNEUMOCOCCAL VACCINE AGE 65+ (1 of 2 - PCV13) [facility] Work Phone: Start: 2008 PNEUMOCOCCAL VACCINE AGE 65+ (1 of 2 - PCV13) PNEUMOCOCCAL VACCINE AGE 65+ (1 of 2 - PCV13) [facility] Work Phone: Start: 2008 Pneumococcal Vaccine: Age 65+ (1 of 1 - PPSV23) Pneumococcal Vaccine: Age 65+ (1 of 1 - PPSV23) [facility] Start: 2003 RSV patients and/or patients aged 60+ years (1 - 1-dose 60+ series) RSV patients and/or patients aged 60+ years (1 - 1-dose 60+ series) [facility] Start: 2003 Zoster vacc, sc ZOSTER VACCINE [facility] Work Phone: Start: 1993 Administration of herpes zoster vaccine ZOSTER VACCINES (1 of 2) [facility] Start: 1993 ZOSTER VACCINES (1 of 2) ZOSTER VACCINES (1 of 2) [facility] Start: 1993 [facility] Start: 12-24-1992 Tetanus vaccination Tetanus: Every 10yrs [facility] Start: 1961 Hepatitis C antibody, confirmatory test Hepatitis C Screening [facility] Start: 1961 Hepatitis C screening Hepatitis C Screening [facility] Start: 1955 Adolescent depression screening assessment Depression Screening (PHQ9) [facility] Start: 1955 Depression screening using PHQ-9 (Patient Health Questionnaire 9) score Depression Screening (PHQ9) [facility] Start: 1953 Diabetic foot examination [facility] Start: 1953 Glaucoma screening Ophthalmology Exam [facility] Start: 1953 Microalbumin measurement, urine, quantitative Urine Microalbumin [facility] Start: 1953 Ophthalmic examination and evaluation Ophthalmology Exam [facility] Start: 1953 Urine screening for protein [facility] Start: 1949 Pneumococcal Vaccine: Age 65+ (1 of 2 - PPSV23) Pneumococcal Vaccine: Age 65+ (1 of 2 - PPSV23) [facility] Start: 1946 History and physical examination, annual for health maintenance Wellness Visit [facility] Start: 1943 Colonoscopy [facility] Work Phone: Start: 1943 Screening colonoscopy COLONOSCOPY [facility] Work Phone: Start: 1943 TETANUS EVERY 10 YR TETANUS EVERY 10 YR [facility] Work Phone: Start: 1943 End: 1943 Tetanus vaccination [facility] Work Phone: Start: 1943 Alanine aminotransferase measurement CLASS III : ALT [facility] Start: 1943 CLASS III : AST CLASS III : AST [facility] Start: 1943 CLASS III : Chest Radiograph CLASS III : Chest Radiograph [facility] Start: 1943 CLASS III : CXR CLASS III : CXR [facility] Start: 1943 CLASS III : EKG CLASS III : EKG [facility] Start: 1943 CLASS III : PFT CLASS III : PFT [facility] Start: 1943 Depression screening using PHQ-9 (Patient Health Questionnaire 9) score Depression Screening (PHQ9) [facility] Start: 1943 Fall risk assessment Falls Risk Assessment [facility] Start: 1943 Hemoglobin A1c measurement A1C [facility] Start: 1943 Medicare Annual Wellness Visit Medicare Annual Wellness Visit (AWV) [facility] Start: 1943 Physical therapy management PT Plan of Care [facility] Start: 1943 Prostate specific antigen measurement PSA Level [facility] Start: 1943 Protein mass conc [facility] Start: 1943 Screening for malignant neoplasm of colon Colorectal Cancer Screening: Colonoscopy [facility] Start: 1943 Thyroid stimulating hormone measurement Class III : TSH [facility] Anesthesia Intraoperative Transesophageal Echocardiogram Anesthesia Intraoperative Transesophageal Echocardiogram Echocardiography Routine SSS (sick sinus syndrome) (Multi) 09/26/2024 7:20 AM EDT [facility] Service Area Work Phone: End: 09-12-2024 Blood type and Indirect antibody screen panel - Blood Type And Screen Lab Timed As needed (Lab) until discontinued starting 09/12/2024 [facility] Work Phone: Comment on above: As needed (Lab) until discontinued start ing 09/12/2024 End: 01-29-2023 Body Fluid Anaerobic Culture Body Fluid Anaerobic Culture Microbiology Routine Olecranon bursitis of left elbow 1 Occurrences starting 08/01/2022 until 01/29/2023 [facility] Comment on above: 1 Occurrences starting 08/01/2022 until 01/29/2023 Body Fluid Anaerobic Culture Body Fluid Anaerobic Culture Microbiology Routine Olecranon bursitis of left elbow 08/01/2022 10:51 AM EST [facility] BURSECTOMY ELBOW BURSECTOMY ELBO W Olecranon bursitis of left elbow [facility] End: 10-23-2023 Cardiac Device Check - In Clinic [facility] Work Phone: Comment on above: Once for 1 Occurrences starting 10/23/19 24 until 10/23/2023 Cardiac Device Check - In Clinic Cardiac Device Check - In Clinic Implantable Cardiac Device Routine Pacemaker Bradycardia 05/13/2024 8:54 AM EST [facility] Work Phone: Cardiac device check - In Clinic Cardiac device check - In Clinic Implantable Cardiac Device Routine Cardiac pacemaker in situ Sinoatrial node dysfunction (Multi) 08/11/2024 11:41 AM EST [facility] Work Phone: End: 11-11-2024 Cardiac device check - In Clinic [facility] Work Phone: Comment on above: Once for 1 Occurrences starting 11/12/19 25 until 11/11/2024 Cardiac device check - Inpatient [facility] Work Phone: Cardiac device check - Inpatient [facility] Work Phone: Cardiac Device Check - MRI [facility] Work Phone: Cardiac Device Check - MRI [facility] Work Phone: Cardiac Device Check - MRI Cardiac Device Check - MRI Implantable Cardiac Device Routine Pacemaker Sick sinus syndrome (Multi) 08/11/2024 10:05 AM EST [facility] Work Phone: End: 09-25-2023 Cardiac Device Check - Remote [facility] Work Phone: Comment on above: Once for 1 Occurrences starting 09/25/19 until 09/25/2023 End: 03-18-2024 Cardiac Device Check - Remote [facility] Work Phone: Comment on above: Once for 1 Occurrences starting 03/18/20 until 03/18/2024 End: 08-18-2024 Cardiac Device Check - Remote [facility] Work Phone: Comment on above: Once for 1 Occurrences starting 08/18/19 until 08/18/2024 Cardiac Device Check - Remote Cardiac Device Check - Remote Implantable Cardiac Device Routine Cardiac pacemaker in situ Sinoatrial node dysfunction (Multi) 02/10/2025 11:17 AM EDT [facility] Work Phone: Cataract Cataract [facility] CBC W Auto Differential panel - Blood [facility] Work Phone: Comprehensive metabolic 2000 panel [facility] Work Phone: Comment on above: Approx [id number] Approx [id number] End: 06-12-2024 ECG 12 lead [facility] Work Phone: Comment on above: Once for 1 Occurrences starting 06/12/20 until 06/12/2024 End: 08-13-2024 ECG 12 Lead [facility] Work Phone: Comment on above: Once for 1 Occurrences starting 08/13/19 until 08/13/2024 ECG 12 Lead [facility] Work Phone: ECG 12 lead ECG 12 lead ECG STAT 12/17/2024 3:56 PM EDT [facility] Work Phone: Electrocardiogram, 12-lead PRN ACS symptoms [facility] Work Phone: Electrocardiogram, 12-lead PRN ACS symptoms [facility] Work Phone: End: 06-12-2024 Extra Urine [place] Tube [facility] Work Phone: Comment on above: Once for 1 Occurrences starting 06/12/20 24 until 06/12/2024 End: 12-17-2024 Extra Urine [place] Tube [facility] Work Phone: Comment on above: Once for 1 Occurrences starting 12/18/19 until 12/17/2024 End: 05-28-2024 Glucose [Mass/volume] in Serum or Plasma POCT Glucose Point of Care Testing - Docked Device Routine Once (Lab) for 1 Occurrences starting 05/28/2024 until 05/28/2024 [facility] Work Phone: Comment on above: Once (Lab) for 1 Occurrences starting until 05/28/2024 End: 09-12-2024 Glucose [Mass/volume] in Serum or Plasma POCT Glucose Point of Care Testing - Docked Device Routine Once (Lab) for 1 Occurrences starting 09/12/2024 until 09/12/2024 [facility] Work Phone: Comment on above: Once (Lab) for 1 Occurrences starting until 09/12/2024 Glucose [Mass/volume ] in Serum or Plasma [facility] Work Phone: H/O Spinal surgery Previous back surgery [facility] H/O: steroid therapy Status post epidural steroid injection [facility] HbA1c (Bld) [Mass fraction] Hemoglobin A1C [facility] Work Phone: Comment on above: Approx [id number] Approx [id number] History of circumcision History of circumcision [facility] History of colonoscopy History of colonoscopy [facility] History of hernia repair History of hernia repair [facility] History of operative procedure on knee Status post knee replacement [facility] Lipid panel Lipid Panel [facility] Work Phone: Comment on above: Approx [id number] Approx [id number] Magnesium [Mass/volume] in Serum or Plasma [facility] Work Phone: End: 09-10-2025 Measurement of thyroperoxidase antibody Thyroid peroxidase antibody (TPO) Lab Routine Abnormal thyroid function test 1 Occurrences starting 09/10/2024 until 09/10/2025 [facility] Comment on above: 1 Occurrences starting 09/10/2024 until 09/10/2025 End: 08-01-2023 Microbial culture, body fluid Body Fluid Aerobic Culture Microbiology Routine Olecranon bursitis of left elbow 1 Occurrences starting 08/01/2022 until 08/01/2023 [facility] Work Phone: Comment on above: 1 Occurrences starting 08/01/2022 until 08/01/2023 Microbial culture, body fluid Body Fluid Aerobic Culture Microbiology Routine Olecranon bursitis of left elbow 08/01/2022 10:52 AM EST [facility] End: 05-02-2023 MR Elbow Left Without Contrast MR Elbow Left Without Contrast Imaging Routine Olecranon bursitis of left elbow 1 Occurrences starting 10/30/2022 until 05/02/2023 [facility] Work Phone: Comment on above: 1 Occurrences starting 10/30/2022 until 05/02/2023 End: 05-10-2023 MR Elbow Left Without Contrast MR Elbow Left Without Contrast Imaging Routine Olecranon bursitis of left elbow 1 Occurrences starting 11/07/2022 until 05/10/2023 [facility] Work Phone: Comment on above: 1 Occurrences starting 11/07/2022 until 05/10/2023 End: 08-11-2024 MR Lumbar spine WO contrast [facility] Service Area Work Phone: Comment on above: Once for 1 Occurrences starting 08/11/19 until 08/11/2024 Past history of procedure History of esophagogastroduodenoscopy (EGD) [facility] POCT glucose meter docked device POCT glucose meter docked device Point of Care Testing - Docked Device Routine As needed (Lab) for 1 Occurrences starting 12/07/2023 [facility] Work Phone: Comment on above: As needed (Lab) for 1 Occurrences starti ng 12/07/2023 PSA screening Prostate Spec.Ag, Screen [facility] Work Phone: Comment on above: Approx [id number] Approx [id number] Renal function 2000 panel - Serum or Plasma [facility] Work Phone: Rmvl transvns pm eltrd dual lead sys PPM LEAD EXTRACTION 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 [facility] [address] Cardiac Second Vp Hr Assessment End: 09-10-2025 Thyrotropin [Units/volume] in Serum or Plasma TSH Lab Routine Abnormal thyroid function test 1 Occurrences starting 09/10/2024 until 09/10/2025 [facility] Work Phone: Comment on above: 1 Occurrences starting 09/10/2024 until 09/10/2025 End: 01-26-2026 Thyrotropin [Units/volume] in Serum or Plasma TSH with Reflex Free T4 Lab Routine Abnormal thyroid function test Thyroid nodule 6 Occurrences starting 01/26/2025 until 01/26/2026 [facility] Work Phone: Comment on above: 6 Occurrences starting 01/26/2025 until 01/26/2026 End: 09-10-2025 Thyroxine (T4) free [Mass/volume] in Serum or Plasma T4, free Lab Routine Abnormal thyroid function test 1 Occurrences starting 09/10/2024 until 09/10/2025 [facility] Comment on above: 1 Occurrences starting 09/10/2024 until 09/10/2025 End: 12-07-2023 Transforaminal Transforaminal Procedures Routine Lumbar radiculopathy Once for 1 Occurrences starting 12/07/2023 until 12/07/2023 [facility] Work Phone: Comment on above: Once for 1 Occurrences starting 12/07/19 until 12/07/2023 End: 09-10-2025 Triiodothyronine (T3) [Mass/volume] in Serum or Plasma T3 Lab Routine Abnormal thyroid function test 1 Occurrences starting 09/10/2024 until 09/10/2025 [facility] Comment on above: 1 Occurrences starting 09/10/2024 until 09/10/2025 TSH Qn TSH - Thyroid St imulating Hormone, Serum [facility] Work Phone: Comment on above: Approx [id number] Approx [id number] End: 06-12-2024 Urinalysis complete W Reflex Culture panel - Urine [facility] Work Phone: Comment on above: Once (Lab) for 1 Occurrences starting until 06/12/2024 Once for 1 Occurrenc es starting 06/12/2024 until 06/12/2024, 1 completed End: 12-17-2024 Urinalysis complete W Reflex Culture panel - Urine [facility] Work Phone: Comment on above: Once (Lab) for 1 Occurrences starting until 12/17/2024 End: 03-03-2026 US Head and neck soft tissue US Soft Tissue Neck and Thyroid Imaging Routine Thyroid nodule 1 Occurrences starting 08/31/2024 until 03/03/2026 [facility] Work Phone: Comment on above: 1 Occurrences starting 08/31/2024 until 03/03/2026 End: 01-29-2025 US Heart Transthoracic [facility] Work Phone: Comment on above: Once for 1 Occurrences starting 01/30/20 25 until 01/29/2025 [facility] End: 05-13-2024 XR Chest 2 Views [facility] Work Phone: Comment on above: Once for 1 Occurrences starting 05/13/20 24 until 05/13/2024 End: 10-08-2024 XR Chest Single view [facility] Work Phone: XR Chest Single view [facility] Work Phone: NEGATED: Highlighted row has been ruled out! Planned Goals not documented [facility] Work Phone: Immunizations Immunization Date Immunization Notes Care Provider Sarika gillis 05-01-2025 influenza, high dose seasonal, preservative-free Tye Anne MD Work Phone: [facility] Work Phone: 05-09-2024 Seasonal, quadrivale nt, recombinant, injectable influenza vaccine, preservative free Dr. Santi Anne MD Work Phone: [facility] 05-09-2024 Seasonal, trivalent, recombinant, injectable influenza vaccine, preservative free Tye Anne MD Work Phone: [facility] Work Phone: 05-09-2024 influenza virus vaccine, unspecified formulation Aravind Jimenez MD Work Phone: [facility] Work Phone: 06-30-2023 Flu vaccine, quadrivalent, high-dose, preservative free, age 65y+ (FLUZONE) Tye Anne MD Work Phone: [facility] Work Phone: 06-30-2023 influenza virus vaccine, unspecified formulation Reggie Aragon PA-C Work Phone: [facility] Work Phone: 10-14-2022 tetanus toxoid, redu roel diphtheria toxoid, and acellular pertussis vaccine, adsorbed Tye Anne Other Phone: [facility] 04-06-2022 Fluzone High-Dose Quadrivalent 0.7 ML Intramuscular Suspension Prefilled Syringe Tye Anne Work Phone: [facility] Work Phone: 01-20-2022 Comirnaty 30 MCG/0.3 ML Intramuscular Suspension Tye Anne Work Phone: [facility] Work Phone: 01-20-2022 SARS-CoV-2, Unspecified Chri annetta Anne MD Work Phone: [facility] Work Phone: 07-03-2021 Pfizer-BioNTech COVID-19 Vacc 30 MCG/0.3ML Intramuscular Suspension Tye Anne Work Phone: [facility] Work Phone: 01-05-2021 pneumococcal polysaccharide vaccine, 23 valent; Translations: [Pneumococcal polysaccharide vaccine, 23 valent] Tye Anne Work Phone: [facility] [address] Work Phone: Comment on above: Series: 10-13-2020 Pfizer SARS-CoV-2 Vaccination Reina Dietrich [facility] 09-21-2020 Pfizer SARS-CoV-2 Vaccination Reina Dietrich [facility] 04-18-2020 influenza, seasonal, injectable Chintan Maldonado Jr., DPM Work Phone: [facility] 12-31-2019 pneumococcal conjuga te vaccine, 13 valent; Translations: [Prevnar 13 Intramuscular Suspension] Robbin Troncoso II [facility] Work Phone: Comment on above: Series: 12-31-2019 pneumococcal polysaccharide vaccine, 23 valent Robbin Troncoso II [facility] Work Phone: 07-04-2019 influenza, seasonal, injectable Robbin Troncoso II [facility] Work Phone: Comment on above: Series: 07-04-2019 influenza virus vaccine, unspecified formulation Tye Anne MD Work Phone: [facility] Work Phone: 05-20-2018 influenza virus vaccine, unspecified formulation Tye Anne MD Work Phone: [facility] Work Phone: 05-20-2018 influenza, high dose seasonal, preservative-free Tye Anne Work Phone: [facility] [address] [place] Work Phone: 05-23-2016 influenza virus vaccine, unspecified formulation Tye Anne MD Work Phone: [facility] Work Phone: 05-23-2016 influenza, injectabl e, quadrivalent, preservative free Tye Anne Work Phone: [facility] [address] Work Phone: 05-26-2015 influenza virus vaccine, unspecified formulation Tye Anne MD Work Phone: [facility] Work Phone: 05-26-2015 influenza, high dose seasonal, preservative-free Tye Anne Work Phone: [facility] [address] [place] Work Phone: 12-24-1982 tetanus toxoid, redu roel diphtheria toxoid, and acellular pertussis vaccine, adsorbed Robbin Troncoso II [facility] Work Phone: Comment on above: Series: Payers Date Payer Category Payer Self-pay 07-02-2024 Managed Care (unspecified) [facility] TRADITIONAL [id number] 07-02-2024 Medicare HMO MMO MANAGED [facility] CARE HMO [id number]. [id number] 07-02-2022 Medicare (Managed Care) [id number]. [id number] 07-02-2022 Unknown [id number] 07-02-2021 Medicare MMO MANAGED [facility] CARE MMO MANAGED MEDICARE HMO [id number] 07/02/2021-Present [phone] [address] [place] [address] [id number]. [id number] 07-02-2021 Medicare [id number] 06-01-2019 Unknown MMO [facility] [employer] [employer] [facility] [place] TRADITIONAL xxxxxxxxxxxx 2019-Present xxxxxxxxxxxx [id number]. [id number] 06-01-2019 Unknown [id number] 1.2.840.821357.1.13.385.2. [id number] 06-01-2016 Unknown [employer] OF [employer] xxxxxxxx 2016-Present xxxxxxxx 1.2.840.391643.1.13.385.2. [id number] 09-30-2008 Medicare [id number] 09-30-2008 Medicare MEDICARE MEDICAR E PART A & B xxxxxxxxxxx 2008-Present [place] xxxxxxxxxxx 1.2.840.358849.1.13.385.2. 7.3.552515.315 09-30-2008 Medicare [id number] 1.2.840.993952.1.13.385.2. 7.3.281455.315 09-30-2008 Unknown 1943 Unknown [id number] 2.16.840.1.143531.3.579.2. 356 1943 Unknown [id number] 2.16.840.1.993242.3.579.2. 356 1943 Unknown [id number] 2.16.840.1.558693.3.579.2. 356 1943 Unknown [id number] 2.16.840.1.218019.3.579.2. 1068 1943 Unknown [id number] 2.16.840.1.619735.3.579.2. 1068 1943 Unknown [id number] 2.16.840.1.252949.3.579.2. 1068 1943 Unknown [id number] 2.16.840.1.581374.3.579.2. 1068 1943 Unknown [id number] 2.16.840.1.561115.3.579.2. 1068 1943 Unknown [id number] 2.16.840.1.856974.3.579.2. 1068 1943 Unknown [id number] 2.16.840.1.539853.3.579.2. 1068 1943 Unknown [id number] 2.16.840.1.071460.3.579.2. 1068 1943 Unknown [id number] 2.16.840.1.037730.3.579.2. 1068 1943 Unknown [id number] 2.16.840.1.695555.3.579.2. 1068 1943 Unknown [id number] 2.16.840.1.946460.3.579.2. 1068 1943 Unknown [id number] 2.16.840.1.707850.3.579.2. 1068 1943 Unknown [id number] 2.16.840.1.906959.3.579.2. 1068 1943 Unknown [id number] 2.16.840.1.309527.3.579.2. 1068 1943 Unknown [id number] 2.16.840.1.937507.3.579.2. 1068 1943 Unknown [id number] 2.16.840.1.287151.3.579.2. 1068 1943 Unknown [id number] 2.16.840.1.644927.3.579.2. 1068 1943 Unknown [id number] 2.16.840.1.084454.3.579.2. 1068 1943 Unknown [id number] 2.16840.1.418063.3.579.2. 1068 1943 Unknown [id number] 2.16.840.1.923823.3.579.2. 1068 1943 Unknown [id number] 2.16.840.1.530899.3.579.2. 1068 1943 Unknown [id number] 2.16.840.1.863550.3.579.2. 1045 1943 Unknown [id number] 2.16840.1.437634.3.579.2. 1045 1943 Unknown [id number] 2.16.840.1.926044.3.579.2. 902 1943 Unknown [id number] 2.16.840.1.509996.3.579.2. 1245 1943 Unknown [id number] 2.16.840.1.535546.3.579.2. 1245 1943 Unknown [id number] 2.16.840.1.362638.3.579.2. 1245 1943 Unknown [id number] 2.16.840.1.785641.3.579.2. 1246 1943 Unknown [id number] 2.16840.1.064963.3.579.2. 1245 1943 Unknown [id number] 2.16840.1.090686.3.579.2. 1245 1943 Unknown [id number] 2.840.1.410026.3.579.2. 1244 1943 Unknown [id number] 2.840.1.807242.3.579.2. 1244 1943 Unknown [id number] 2.840.1.795261.3.579.2. 1244 1943 Unknown [id number] 2.840.1.150051.3.579.2. 1244 1943 Unknown [id number] 2.840.1.911406.3.579.2. 1244 1943 Unknown [id number] 2.840.1.732103.3.579.2. 1244 1943 Unknown [id number] 2.840.1.096153.3.579.2. 1244 1943 Unknown [id number] 2.840.1.849432.3.579.2. 1244 1943 Unknown [id number] 2.840.1.192897.3.579.2. 124 1943 Unknown [id number] 2.840.1.335436.3.579.2. 1244 1943 Unknown [id number] 2.840.1.199273.3.579.2. 1244 1943 Unknown [id number] 2.840.1.226850.3.579.2. 903 1943 Unknown [id number] 2.840.1.831443.3.579.2. 903 1943 Unknown [id number] 2.16.840.1.423855.3.579.2. 903 1943 Unknown [id number] 2.16.840.1.055168.3.579.2. 903 1943 Unknown [id number] 2.16.840.1.578529.3.579.2. 1247 1943 Unknown [id number] 2.16.840.1.224621.3.579.2. 1247 1943 Unknown [id number] 2.16840.1.436157.3.579.2. 1246 1943 Unknown [id number] 2.16840.1.228482.3.579.2. 1246 1943 Unknown [id number] 2.840.1.903402.3.579.2. 1246 1943 Unknown [id number] 2.840.1.759732.3.579.2. 1247 1943 Unknown [id number] 2.840.1.439896.3.579.2. 1943 Unknown [id number] 2.16840.1.446085.3.579.2. 90 1943 Unknown [id number] 2.16840.1.774662.3.579.2. 903 1943 Unknown [id number] 2.16840.1.439893.3.579.2. 903 1943 Unknown [id number] 2.16.840.1.123424.3.579.2. 903 1943 Unknown [id number] 2.16.840.1.709782.3.579.2. 903 1943 Unknown [id number] 2.16840.1.852970.3.579.2. 903 1943 Unknown [id number] 2.16.840.1.252168.3.579.2. 3 1943 Unknown [id number] 2.16.840.1.116537.3.579.2. 903 1943 Unknown [id number] 2.16.840.1.280126.3.579.2. 3 1943 Unknown [id number] 2.16.840.1.328426.3.579.2. 124 1943 Unknown [id number] 2.16.840.1.010440.3.579.2. 1242 1943 Unknown [id number] 2.16840.1.983332.3.579.2. 1242 1943 Unknown [id number] 2.16840.1.818000.3.579.2. 1242 1943 Unknown [id number] 2.16840.1.462938.3.579.2. 1242 1943 Unknown [id number] 2.16840.1.265749.3.579.2. 1242 1943 Unknown [id number] 2.16840.1.937801.3.579.2. 1242 1943 Unknown [id number] 2.16840.1.641941.3.579.2. 1242 1943 Unknown [id number] 2.16.840.1.891778.3.579.2. 1242 1943 Unknown [id number] 2.16.840.1.761972.3.579.2. 1242 1943 Unknown [id number] 2.16.840.1.288974.3.579.2. 1242 1943 Unknown [id number] 2.16.840.1.170308.3.579.2. 1242 1943 Unknown [id number] 2.16.840.1.193161.3.579.2. 1242 1943 Unknown [id number] 2.16.840.1.834381.3.579.2. 1242 1943 Unknown [id number] 2.16.840.1.886298.3.579.2. 1242 1943 Unknown [id number] 2.16.840.1.560919.3.579.2. 1242 1943 Unknown [id number] 2.16.840.1.368932.3.579.2. 1242 1943 Unknown [id number] 2.16.840.1.174926.3.579.2. 1242 1943 Unknown [id number] 2.16.840.1.781417.3.579.2. 1242 1943 Unknown [id number] 2.16.840.1.837158.3.579.2. 1242 1943 Unknown [id number] 2.16.840.1.863074.3.579.2. 1242 1943 Unknown [id number] 2.16.840.1.144233.3.579.2. 1242 1943 Unknown [id number] 2.16.840.1.601173.3.579.2. 1242 1943 Unknown [id number] 2.16.840.1.862786.3.579.2. 1242 1943 Unknown [id number] 2.16.840.1.383351.3.579.2. 1242 1943 Unknown [id number] 2.16.840.1.916308.3.579.2. 1242 1943 Unknown [id number] 2.16.840.1.037285.3.579.2. 1242 1943 Unknown [id number] 2.16.840.1.189172.3.579.2. 1243 1943 Unknown [id number] 2.16.840.1.756105.3.579.2. 1242 1943 Unknown [id number] 2.16.840.1.486870.3.579.2. 1242 1943 Unknown [id number] 2.16840.1.851287.3.579.2. 1242 1943 Unknown [id number] 2.16.840.1.325990.3.579.2. 1243 1943 Unknown [id number] 2.840.1.317439.3.579.2. 1243 1943 Unknown [id number] 2.840.1.038882.3.579.2. 1243 1943 Unknown [id number] 2.840.1.217369.3.579.2. 1243 1943 Unknown [id number] 2.840.1.471142.3.579.2. 1243 1943 Unknown [id number] 2.840.1.708951.3.579.2. 1243 1943 Unknown [id number] 2.840.1.723394.3.579.2. 1243 1943 Unknown [id number] 2.840.1.639334.3.579.2. 1243 1943 Unknown [id number] 2.840.1.044538.3.579.2. 1243 1943 Unknown [id number] 2.16840.1.938448.3.579.2. 1243 1943 Unknown [id number] 2.16840.1.997704.3.579.2. 1243 1943 Unknown [id number] 2.16840.1.988732.3.579.2. 1244 1943 Unknown [id number] 2.16.840.1.422676.3.579.2. 1244 Medicare [id number] 2.16.840.1.884827.3.249.13 Unknown [id number] 2.16.840.1.633918.3.249.13 Unknown [id number] 2.16.840.1.887373.3.579.2. 462 Unknown [id number] 2.16.840.1.675606.3.579.2. 462 Unknown [id number] 2.16.840.1.152377.3.579.2. 462 Unknown [id number] 2.16.840.1.618125.3.579.2. 462 Unknown [id number] 2.16.840.1.747853.3.579.2. 462 Unknown [id number] 2.16.840.1.877131.3.579.2. 462 Unknown [id number] 2.16.840.1.890595.3.579.2. 462 Unknown [id number] 2.16.840.1.330768.3.579.2. 462 Unknown [id number] 2.16.840.1.763875.3.579.2. 462 Unknown [id number] 2.16.840.1.098349.3.579.2. 462 Unknown [id number] 2.16.840.1.205373.3.579.2. 462 Unknown [id number] 2.16.840.1.413578.3.579.2. 462 Social History Date Type Detail Facility Start: 03-06-2017 End: 04-19-2023 Tobacco smoking status TXIS Never smoker [facility] Work Phone: Start: 1945 Sex Assigned At Not on file [facility] Work Phone: Start: 08-18-2019 End: 03-04-2025 Alcohol intake Current non-drinker of alcohol (finding) [facility] Start: 03-12-2020 End: 04-19-2023 Tobacco use and exposure [facility] Start: 09-06-2021 End: 11-25-2024 Exposure to SARS-CoV-2 (event) Not sure [facility] Start: 11-11-2020 End: 09-29-2024 Alcohol intake [facility] Tobacco smoking consumption unknown [facility] Start: 10-05-2022 End: 09-29-2024 Tobacco use panel [facility] Start: 05-26-2022 PHQ-2 Score 0 [facility] Start: 03-08-2018 Gender identity Identifies as male gender (finding) [facility] Start: 03-08-2018 Sexual orientation Heterosexual (fin ding) [facility] Start: 12-07-2022 End: 05-01-2025 Alcohol intake Lifetime non-drinker (finding) [facility] Work Phone: Has the [employer], gas, oil, or water [employer] threatened to shut off services in your home in past 12Mo No [facility] Are you now , , , , never or living with a partner? Living with partner [facility] Work Phone: How hard is it for you to pay for the very basics like food, housing, medical care, and heating Not very hard [facility] Work Phone: (I/We) worried whether (my/our) food would run out before (I/we) got money to buy more. Never true [facility] Work Phone: Start: 1945 Sex assigned at Male [facility] Start: 10-13-2024 End: 10-23-2024 Exposure to SARS-CoV-2 (event) Unable to assess [facility] Start: 05-26-2022 Sex Male (finding) [facility] NEGATED: Highlighted row - - [facility] Work Phone: NEGATED: Highlighted rowStart: CRISTOPHERF History of tobacco use Passive smoker [facility] Work Phone: Medical Equipment Procedure Code Equipment Code Equipment Origin al Text Equipment Identifier Dates Hemostat 8 X 12. 5cm X 10mm Surgifoam Gelatin Sponge - [id number] Start: 03-13-2018 Sealant 5ml Hemostatic Matrix Full Sterl Prep Floseal - [id number] Start: 03-13-2018 Hemostat 8 X 12. 5cm X 10mm Surgifoam Gelatin Sponge - [id number] Start: 03-13-2018 Sealant 5ml Hemostatic Matrix Full Sterl Prep Floseal - [id number] Start: 03-13-2018 Hemostat 8 X 12. 5cm X 10mm Surgifoam Gelatin Sponge - [id number] Start: 03-13-2018 Sealant 5ml Hemostatic Matrix Full Sterl Prep Floseal - [id number] Start: 03-13-2018 Hemostat 8 X 12. 5cm X 10mm Surgifoam Gelatin Sponge - [id number] Start: 03-13-2018 Sealant 5ml Hemostatic Matrix Full Sterl Prep Floseal - [id number] Start: 03-13-2018 Hemostat 8 X 12. 5cm X 10mm Surgifoam Gelatin Sponge - [id number] Start: 03-13-2018 Sealant 5ml Hemostatic Matrix Full Sterl Prep Floseal - [id number] Start: 03-13-[address] In Vitro Strip TEST BG ONCE DAILY E11.9 Quantity: 100 Refills: 3 Tye Anne MD Active by Miscellaneous route . [id number] Inject 1 strip i nto the skin once daily. [id number] Start: 10-09-2022 End: 10-09-2023 [id number] Start: 09-26-2024 [id number] Start: 09-26-2024 [id number] Start: 09-27-2024 [id number] Start: 09-27-2024 Comment on above: Description: Per ran ge oracle jdr 09/29 Use as directed to check blood sugar [id number] Start: 12-26-2024 TEST ONCE DAILY [id number] Start: 12-29-2024 Functional Status Date Assessment Result Facility 05-01-2025 Functional status 110/60 025 9:08 AM EDT Carin Capps MA 110/60 [facility] Work Phone: 05-01-2025 Vital signs 60 05/01/2025 9: 08 AM EDT Carin Capps MA [facility] Work Phone: 04-27-2025 [place] - suicide severity rating scale screener - recent [C-SSRS] [facility] Work Phone: 04-27-2025 Functional status 115/62 [facility] Work Phone: 04-27-2025 Vital signs 73 04/27/2025 8: 30 AM EDT Alexandria Bynum RN [facility] Work Phone: 04-27-2025 [facility] Work Phone: 04-16-2025 [facility] Work Phone: 04-16-2025 Functional status 132/80 [facility] Work Phone: 04-16-2025 Vital signs 72 04/16/2025 10 :12 AM EDT Zuly Flaherty CMA [facility] Work Phone: 04-02-2025 Functional status 152/89 025 10:05 AM EDT Venice Cordero MA 152/89 [facility] 04-02-2025 Vital signs 103 04/02/2025 1 0:05 AM EDT Venice Cordero MA [facility] Work Phone: 01-29-2025 Patient Health Questionnaire 2 item (PHQ-2) [Reported] [facility] Work Phone: 12-26-2024 Patient Health Questionnaire 2 item (PHQ-2) [Reported] [facility] Work Phone: 12-17-2024 Functional status [facility] Work Phone: 12-17-2024 [place] - suicide severity rating scale screener - recent [C-SSRS] [facility] Work Phone: 12-17-2024 [facility] Work Phone: 11-06-2024 Patient Health Questionnaire 2 item (PHQ-2) [Reported] [facility] Work Phone: 11-06-2024 PHQ-9 quick depressi on assessment panel [Reported.PHQ] [facility] Work Phone: 10-01-2024 [facility] 09-26-2024 Functional status 1 [facility] 09-26-2024 [facility] Work Phone: 09-26-2024 [facility] 09-12-2024 [place] - suicide severity rating scale screener - recent [C-SSRS] [facility] Work Phone: 09-12-2024 Patient Health Questionnaire 2 item (PHQ-2) [Reported] [facility] Work Phone: 09-12-2024 [facility] Work Phone: 09-12-2024 Functional status [facility] 06-12-2024 Functional status [facility] 06-12-2024 [facility] Work Phone: 05-30-2024 [facility] Work Phone: 05-28-2024 Functional status [facility] 05-28-2024 Patient Health Questionnaire 2 item (PHQ-2) [Reported] [facility] Work Phone: 05-28-2024 [place] - suicide severity rating scale screener - recent [C-SSRS] [facility] Work Phone: 05-28-2024 [facility] 04-04-2024 [facility] 03-28-2024 Patient Health Questionnaire 2 item (PHQ-2) [Reported] [facility] Work Phone: 03-28-2024 [place] - suicide severity rating scale screener - recent [C-SSRS] [facility] Work Phone: 03-28-2024 [facility] 03-28-2024 Functional status [facility] 03-28-2024 [facility] Work Phone: 12-28-2023 Patient Health Questionnaire 2 item (PHQ-2) [Reported] [facility] Work Phone: 12-07-2023 [facility] Work Phone: 12-07-2023 [place] - suicide severity rating scale screener - recent [C-SSRS] [facility] Work Phone: 12-07-2023 Functional status [facility] 09-01-2021 PHQ-9 [id number] Mild (5-9) [facility] Work Phone: [facility] Work Phone: [facility] Work Phone: [facility] Work Phone: [facility] NEGATED: Highlighted row Functional performance Functional status health issues are not documented Disease MP[facility] Work Phone: Mental Status Date Assessment Result Facility 09-29-2024 Cognitive function finding No [facility] Work Phone: 09-29-2024 No [facility] Work Phone: 09-27-2024 Cognitive function finding [facility] 09-27-2024 [facility] Work Phone: 09-12-2024 Cognitive function finding Negative [facility] 05-28-2024 Cognitive function finding Negative [facility] Work Phone: 03-28-2024 Cognitive function finding Negative [facility] Work Phone: 12-07-2023 Cognitive function finding Negative [facility] Work Phone: [facility] Work Phone: NEGATED: Highlighted row Cognitive function [Interpretation] Cognitive status health issues are not documented Disease [facility] Work Phone: Clinical Notes 10-27-2020 to 05-01-2025 Assessment & Plan Note - Tye Anne MD - 05/01/2025 10:39 AM EDTAssessment & Plan Note - Tye Anne MD - 05/01/2025 10:39 AM EDTPatient InstructionsPatient Instructions Note Date & Type Note Facility 05-01-2025 Evaluation + Plan note Associated Problem(s): Obstructive sleep apnea on CPAP Patient has been using their CPAP nightly and is experiencing restful sleep, no morning headaches, no witnessed snoring, and notices a difference if they do not use the device. [facility] Work Phone: 05-01-2025 Evaluation + Plan note Associated Problem(s): BPH (benign prostatic hyperplasia) Currently asymptomatic, PSA testing stable, continue with tamsulosin [facility] Work Phone: 05-01-2025 Evaluation + Plan note Associated Problem(s): Hypogonadism in male Tolerating testosterone replacement therapy, PSA testing, liver function testing and CBC all stable [facility] Work Phone: 05-01-2025 Miscellaneous Notes Associated Problem(s): Obstructive sleep apnea on CPAP Patient has been using their CPAP nightly and is experiencing restful sleep, no morning headaches, no witnessed snoring, and notices a difference if they do not use the device. Associated Problem(s): BPH (benign prostatic hyperplasia) Currently asymptomatic, PSA testing stable, continue with tamsulosin Associated Problem(s): Hypogonadism in male Tolerating testosterone replacement therapy, PSA testing, liver function testing and CBC all stable Associated Problem(s): Diabetes mellitus, type 2 (Multi) A1c testing at 7.2, very stable from prior, no issues with low sugars, continue with current medication. Patient with positive microalbuminuria, on Entresto, very stable from prior testing. Associated Problem(s): Mixed hyperlipidemia Tolerating statin, laboratory testing stable, no change Associated Problem(s): Permanent atrial fibrillation (Multi) Maintained on chronic Xarelto, CBC and electrolyte and renal function all stable, no signs or symptoms of bleeding, not aware of palpitations. Associated Problem(s): Hypertension, essential, benign Blood pressure is actually under good control, renal function stable, no change Associated Problem(s): Chronic diastolic congestive heart failure (Multi) Currently asymptomatic, follows with heart failure clinic. documented in this encounter [facility] Work Phone: 05-01-2025 Evaluation + Plan note Associated Problem(s): Diabetes mellitus, type 2 (Multi) A1c testing at 7.2, very stable from prior, no issues with low sugars, continue with current medication. Patient with positive microalbuminuria, on Entresto, very stable from prior testing. [facility] Work Phone: 05-01-2025 Evaluation + Plan note Associated Problem(s): Mixed hyperlipidemia Tolerating statin, laboratory testing stable, no change [facility] Work Phone: 05-01-2025 Evaluation + Plan note Associated Problem(s): Permanent atrial fibrillation (Multi) Maintained on chronic Xarelto, CBC and electrolyte and renal function all stable, no signs or symptoms of bleeding, not aware of palpitations. [facility] Work Phone: 05-01-2025 Evaluation + Plan note Associated Problem(s): Hypertension, essential, benign Blood pressure is actually under good control, renal function stable, no change [facility] Work Phone: 05-01-2025 Evaluation + Plan note Associated Problem(s): Chronic diastolic congestive heart failure (Multi) Currently asymptomatic, follows with heart failure clinic. [facility] Work Phone: 05-01-2025 History of Present illness Narrative Subjective Patient ID: Rocio Sandoval is a 79 y.o. male who presents for 3 MO LABS. HPI No headache, chest pain, shortness of breath, dizziness, lightheadedness, or edema No low blood sugars since last OV, seen opthalmology in the past year, and no numbness or tingling in feet, skin normal. Dizziness better Doing ST, re-started testosterone therapy Has gained swome weight since last sween Follows with cardiology and CHF clinic No PND/orthopnea Patient has been using their CPAP nightly and is experiencing restful sleep, no morning headaches, no witnessed snoring, and notices a difference if they do not use the device. Taking and tolerating Xarelto, no palpitations Chronic LBP, no falls Review of Systems Constitutional: Negative for activity change, appetite change, fatigue and unexpected weight change. HENT: Negative for ear pain, nosebleeds, rhinorrhea, sneezing and trouble swallowing. Respiratory: Negative for cough, shortness of breath and wheezing. Cardiovascular: Negative for chest pain, palpitations and leg swelling. Gastrointestinal: Negative for abdominal distention, abdominal pain, constipation, diarrhea, nausea and vomiting. Genitourinary: Negative for difficulty urinating. Musculoskeletal: Negative for arthralgias. Skin: Negative for rash. Neurological: Negative for dizziness, light-headedness, numbness and headaches. Hematological: Negative for adenopathy. Psychiatric/Behavioral: Negative for behavioral problems. All other systems reviewed and are negative. Objective BP 110/60 Pulse 60 Ht 1.88 m (6' 2) Wt 104 kg (230 lb) SpO2 100% BMI 29.53 kg/m Physical Exam Vitals and nursing note reviewed. Constitutional: Appearance: Normal appearance. HENT: Head: Normocephalic and atraumatic. Right Ear: Tympanic membrane, ear canal and external ear normal. Left Ear: Tympanic membrane, ear canal and external ear normal. Nose: Nose normal. Mouth/Throat: Mouth: Mucous membranes are moist. Pharynx: Oropharynx is clear. Cardiovascular: Rate and Rhythm: Normal rate. Rhythm irregular. Pulses: Normal pulses. Heart sounds: Normal heart sounds. Pulmonary: Effort: Pulmonary effort is normal. Breath sounds: Normal breath sounds. Musculoskeletal: Cervical back: Normal range of motion and neck supple. Skin: General: Skin is warm and dry. Capillary Refill: Capillary refill takes less than 2 seconds. Neurological: Mental Status: He is alert. Psychiatric: Mood and Affect: Mood normal. Behavior: Behavior normal. Assessment/Plan Problem List Items Addressed This Visit ICD-10-CM BPH (benign prostatic hyperplasia) N40.0 Currently asymptomatic, PSA testing stable, continue with tamsulosin Relevant Orders Follow Up In Primary Care - Established Chronic diastolic congestive heart failure ([facility]) I50.32 Currently asymptomatic, follows with heart failure clinic. 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 Relevant Orders Follow Up In Primary Care - Established Permanent atrial fibrillation ([facility]) I48.21 Maintained on chronic Xarelto, CBC and electrolyte and renal function all stable, no signs or symptoms of bleeding, not aware of palpitations. Relevant Orders Follow Up In Primary Care - Established Comprehensive Metabolic Panel CBC and Auto Differential Diabetes mellitus, type 2 ([facility]) - Primary E11.9 A1c testing at 7.2, very stable from prior, no issues with low sugars, continue with current medication. Patient with positive microalbuminuria, on Entresto, very stable from prior testing. Relevant Orders Flu vaccine, trivalent, preservative free, HIGH-DOSE, age 65y+ (Fluzone) (Completed) Follow Up In Primary Care - Established Cholesterol, LDL Direct Comprehensive Metabolic Panel Hemoglobin A1C Hypogonadism in male E29.1 Tolerating testosterone replacement therapy, PSA testing, liver function testing and CBC all stable Relevant Orders Testosterone,Free and Total Mixed hyperlipidemia E78.2 Tolerating statin, laboratory testing stable, no change Relevant Orders Follow Up In Primary Care - Established Cholesterol, LDL Direct Comprehensive Metabolic Panel Other Visit Diagnoses Codes Orthostatic hypotension I95.1 Relevant Orders Follow Up In Primary Care - Established Comprehensive Metabolic Panel documented in this encounter [facility] Work Phone: 04-27-2025 History of Present illness Narrative Subjective Patient ID: Rocio Sandoval is a 79 y.o. male who presents for Follow-up (Patient here today for follow up to discuss gabapentin doseage. He states he has been taking 800mg at night but feels he needs more than that as it is not helping as much. His main complaint is tingling in the left foot, that sometimes is so bad he wants to beat it with a sledge hammer. Reports he is starting to get some tingling in his right foot as well which is new. Rates pain 4/10 in left foot today. He says his back pain has been tolerable, only gets really bad when he is working outside a lot.). Takes Tylenol 650mg almost daily for pain. Has used salonpas for his back pain. He has an inversion table but is unsure if he's allowed to use it since he has a pacemaker. He needs gabapentin refill. RACHEL 31%. Alcohol screen completed= negative. MMA signed. Alexandria Bynum RN 04/27/25 8:32 AM The patient is an 79 year old male who presents today after an 8 month hiatus, coming in for medication management. He currently rates his pain a 4/10 primarily in his lower back and in his left foot, though has been noticing pain starting in his right foot. He has been taking gabapentin 800mg nightly. He denies side effects to this medication, and says it generally works well and taking the edge off his pain so that he is able to sleep at night. Occasionally if his pain is really flared up, he admits to taking an extra gabapentin in the middle of the night. We discussed instead of self increasing his medication, that maybe we can try 1200 mg nightly to see if this would better control his pain, patient is agreeable. Otherwise, he does not have any questions or concerns at this time. Review of Systems Constitutional: Negative. HENT: Negative. Eyes: Negative. Respiratory: Negative for cough, shortness of breath and wheezing. Cardiovascular: Negative for chest pain, palpitations and leg swelling. Endocrine: Negative. Genitourinary: Negative. Musculoskeletal: Positive for back pain and myalgias. Negative for arthralgias. Skin: Negative. Allergic/Immunologic: Negative. Neurological: Negative for facial asymmetry, weakness and light-headedness. Hematological: Negative for adenopathy. Does not bruise/bleed easily. Psychiatric/Behavioral: Negative for dysphoric mood and suicidal ideas. Objective Physical Exam Constitutional: General: He is not in acute distress. Appearance: Normal appearance. HENT: Head: Normocephalic. Mouth/Throat: Mouth: Mucous membranes are moist. Eyes: Extraocular Movements: Extraocular movements intact. Cardiovascular: Rate and Rhythm: Normal rate and regular rhythm. Pulses: Normal pulses. Heart sounds: Normal heart sounds. No murmur heard. No friction rub. No gallop. Pulmonary: Effort: Pulmonary effort is normal. Breath sounds: Normal breath sounds. No wheezing, rhonchi or rales. Abdominal: General: Abdomen is flat. Palpations: Abdomen is soft. Musculoskeletal: Cervical back: Normal range of motion. Right lower leg: No edema. Left lower leg: No edema. Comments: Ambulates without assistance Strength 5/5 BLE Lymphadenopathy: Cervical: No cervical adenopathy. Skin: General: Skin is warm and dry. Neurological: General: No focal deficit present. Mental Status: He is alert and oriented to person, place, and time. Mental status is at baseline. Psychiatric: Mood and Affect: Mood normal. Behavior: Behavior normal. Assessment/Plan Diagnoses and all orders for this visit: 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 stenosis - gabapentin (Neurontin) 800 mg tablet; Take 1.5 tablets (1,200 mg) by mouth once daily at bedtime. - gabapentin (Neurontin) 800 mg tablet; Take 1.5 tablets (1,200 mg) by mouth once daily at bedtime. Lumbar radiculopathy - gabapentin (Neurontin) 800 mg tablet; Take 1.5 tablets (1,200 mg) by mouth once daily at bedtime. - gabapentin (Neurontin) 800 mg tablet; Take 1.5 tablets (1,200 mg) by mouth once daily at bedtime. Cervical radiculitis - gabapentin (Neurontin) 800 mg tablet; Take 1.5 tablets (1,200 mg) by mouth once daily at bedtime. - gabapentin (Neurontin) 800 mg tablet; Take 1.5 tablets (1,200 mg) by mouth once daily at bedtime. The patient is an 79-year-old male with a past medical history significant for the above-mentioned problems. As discussed above, we will increase his gabapentin to 1200 mg nightly to see if this can better help his pain. He runs out of his current prescription on , so we will send the larger increase prescription to his mail order pharmacy, and send in a weeks worth to a local pharmacy. PDMP reviewed. Otherwise, he will follow-up with him in 6 months, call the clinic sooner if needed. documented in this encounter [facility] Work Phone: 04-16-2025 History of Present illness Narrative Images from the original note were not included. [facility] History of present illness: This is a pleasant and elderly 79 y.o. male with a history of systolic heart failure, hypertension, dyslipidemia, atrial fibrillation, type 2 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, and obstructive sleep apnea who presents to the clinic for 6-month follow-up. Subjective: Get tired easier but Denies chest pain or pressure, dyspnea at rest, fatigue, palpitations, leg edema, nausea, fever, chills, orthopnea, or syncope. Still very active. Cardiac Testing Personally reviewed with my independent interpretation: TTE (December 2024): Mildly decreased left ventricular systolic function with LVEF 40 to 45% with global hypokinesis. Mild concentric LVH. Moderately lysed RV with mildly reduced systolic function. Severely dilated RA, normal LA. Mildly elevated transaortic gradients consistent with aortic valve sclerosis. Mildly thickened mitral valve with trace MR. Mild TR with normal RVSP of 30 mmHg. Trivial pericardial effusion Myocardial SPECT (June 2024): Abnormal perfusion study with a predominantly fixed medium sized moderate to severe perfusion defect involving apex was extensive apical anterior/inferior/septal as well as lateral webster concerning for previous infarct. There is no reversible ischemia. No ischemic ECG changes with regadenoson infusion. [id number] Score Age >= 75: 2 Sex Male: 0 CHF History Yes: 1 HTN Yes: 1 Stroke/TIA/Thromboembolism No: 0 Vascular Dz: CAD/PAD/Aortic Plaque No: 0 DM Yes: 1 Total Score 4 Assessment and Plan Paroxysmal atrial fibrillation -AF Dx History: 2020; h/o Cardioversion: Yes; AAD Use: Amiodarone 200mg (stopped due to persistent A-fib); Anticoagulation use: Xarelto 20mg Daily (current); h/o Ablation: yes; [id number] Score: 5 - Status post RFA with PVI in PWI November 2021 complicated by esophageal perforation requiring esophageal stenting repair and quit removal. - Asymptomatic - Not in A-fib today based on clinical exam -Denies adverse bleeding - Continue beta-blockade and Xarelto 20 mg daily Sick sinus syndrome Status post PROPERTY CLAIM REP-P - Status post dual-chamber permanent pacemaker 2001 - Upgrade to Medtronic biventricular pacemaker implanted 09/26/2024 - Remote device report January 2025 reported 1 episode nonsustained VT lasting 8 seconds. Sensing and lead impedances steady. 95% PROPERTY CLAIM REP pacing. Estimated DIDI 8 years. - Continue device clinic checks ACC stage C chronic systolic heart failure/heart failure with mildly reduced ejection fraction Primary hypertension -NYHA class I - Likely ischemic given his abnormal nuclear stress test however he is asymptomatic. He likely had a silent IA. Will treat him medically. -Euvolemic on exam -Monitor weights -Continue furosemide 20 mg daily as needed for edema or dyspnea - Start low-dose Entresto twice a day - Continue Toprol XL 12.5 mg daily and Jardiance 10 mg daily - Obtain metabolic panel 7-10 days after starting medication\ Dyslipidemia - Fasting lipid panel has been ordered by PCP - Continue high intensity statin therapy with atorvastatin 40 mg daily, goal LDL less than 55 given likelihood of coronary disease. Return to Care: Follow up 3 months Objective VITALS Vitals: 04/16/25 1012 BP: 132/80 Pulse: 72 SpO2: 93% Weight Vitals: 04/16/25 1012 Weight: 102 kg (224 lb) Past Medical History Medical History[1] Past Surgical History Surgical History[2] Medications Current Outpatient Medications Medication Instructions acetaminophen (TYLENOL 8 HOUR) 650 mg, Every 8 hours PRN acetaminophen (TYLENOL) 650 mg, j-tube, Every 4 hours PRN acetaminophen (TYLENOL) 500 mg, Every 6 hours PRN atorvastatin (LIPITOR) 40 mg, oral, Daily Blood glucose monitoring meter USE ONCE DAILY blood sugar diagnostic (Blood Glucose Test) TEST ONCE DAILY empagliflozin (JARDIANCE) 10 mg, oral, Daily fexofenadine (SULAIMAN) 180 mg, Daily furosemide (LASIX) 20 mg, oral, Daily PRN gabapentin (NEURONTIN) 800 mg, oral, Nightly lancets misc TEST ONCE DAILY melatonin 5 mg, Nightly metFORMIN XR (GLUCOPHAGE-XR) 750 mg, 2 times daily metoprolol succinate XL (TOPROL-XL) 12.5 mg, oral, Daily multivitamin tablet 1 tablet, Daily pantoprazole (PROTONIX) 40 mg, oral, Daily before breakfast rivaroxaban (XARELTO) 20 mg, g-tube, Daily with evening meal, Take with food. Administer via jejunostomy tube please tamsulosin (FLOMAX) 0.4 mg, Daily testosterone cypionate (DEPO-TESTOSTERONE) 100 mg, intramuscular, Every 14 days vit C/E/Zn/coppr/lutein/zeaxan (PRESERVISION AREDS-2 ORAL) 1 tablet, Daily Allergies Allergies[3] Social History Social History[4] Family History Family History[5] PHYSICAL EXAM Physical Exam Vitals and nursing note reviewed. Constitutional: General: He is not in acute distress. HENT: Head: Normocephalic and atraumatic. Mouth/Throat: Mouth: Mucous membranes are moist. Pharynx: Oropharynx is clear. Eyes: General: No scleral icterus. Pupils: Pupils are equal, round, and reactive to light. Cardiovascular: Rate and Rhythm: Normal rate and regular rhythm. Pulses: Normal pulses. Heart sounds: Normal heart sounds, S1 normal and S2 normal. No murmur heard. No friction rub. Pulmonary: Effort: Pulmonary effort is normal. Breath sounds: Normal breath sounds. Abdominal: General: Bowel sounds are normal. There is no distension. Palpations: Abdomen is soft. Tenderness: There is no abdominal tenderness. Musculoskeletal: General: Normal range of motion. Cervical back: Normal range of motion and neck supple. Right lower leg: No edema. Left lower leg: No edema. Skin: General: Skin is warm and dry. Capillary Refill: Capillary refill takes less than 2 seconds. Findings: No rash. Neurological: General: No focal deficit present. Mental Status: He is alert. Psychiatric: Mood and Affect: Mood normal. Behavior: Behavior normal. Cardiovascular Labs Lab Results Component Value Date HGB 14.0 01/20/2025 HGB 13.6 12/17/2024 HGB 14.9 10/29/2024 HGB 13.5 10/08/2024 HGB 15.6 10/07/2024 PLT 301 01/20/2025 WBC 8.1 01/20/2025 NA 141 01/20/2025 K 4.3 01/20/2025 CREATININE 0.93 01/20/2025 CREATININE 0.74 12/17/2024 CREATININE 0.75 10/29/2024 CREATININE 0.78 10/08/2024 CREATININE 0.85 10/07/2024 BUN 14 01/20/2025 CALCIUM 9.2 01/20/2025 INR 1.3 (H) 12/17/2024 BNP 548 (H) 06/12/2024 TROPHS 6 12/17/2024 TROPHS 5 06/12/2024 TROPHS <3 08/25/2022 TROPHS <3 08/25/2022 LDLF 55 10/03/2022 Echocardiogram Results for orders placed during the hospital encounter of 01/29/25 Transthoracic echo (TTE) [place] [id number], TRANSTHORACIC ECHOCARDIOGRAM REPORT Patient Name: ROCIO Pack Physician: [id number] Enrique Welsh MD Study Date: 01/29/2025 Ordering Provider: [id number] JIMENEZ MRN/PID: [id number] Fellow: Nurse: Date of /Age: 2 1945 / Investigator Fraud: Trey Severino RDCS years Gender Assigned at M Additional Staff: : Height: 185.42 cm Admit Date: Weight: 97.52 kg Admission Status: Outpatient BSA / BMI: 2.22 m2 / 28.37 Department Location: [facility] Echo Lab kg/m2 Blood Pressure: 128 /73 mmHg Study Type: TRANSTHORACIC ECHO (TTE) COMPLETE Diagnosis/ICD: Shortness of breath-R06.02 CPT Codes: Echo Complete w Full Doppler-54632 Study Detail: The following Echo studies were performed: 2D, M-Mode, Doppler and color flow. PHYSICIAN INTERPRETATION: Left Ventricle: The left ventricular systolic function is mildly decreased with a visually estimated ejection fraction of 40-45%. There is mild concentric left ventricular hypertrophy. There is global hypokinesis of the left ventricle with minor regional variations. The left ventricular cavity size is mildly dilated. There is normal septal and mildly increased posterior left ventricular wall thickness. Abnormal (paradoxical) septal motion, consistent with RV pacemaker. Left ventricular diastolic filling cannot be determined due to atrial fibrillation/flutter. Left Atrium: The left atrial size is normal. Right Ventricle: The right ventricle is moderately enlarged. There is mildly reduced right ventricular systolic function. Right Atrium: The right atrial size is severely dilated. Aortic Valve: The aortic valve is trileaflet. The aortic valve area by VTI is 2.11 cm with a peak velocity of 1.32 m/s. The peak and mean gradients are 6 mmHg and 4 mmHg, respectively, with a dimensionless index of 0.43. There is mild aortic valve cusp calcification. There is mild to moderate aortic valve thickening. There is evidence of mildly elevated transaortic gradients consistent with sclerosis of the aortic valve. There is no evidence of aortic valve regurgitation. Mitral Valve: The mitral valve is mildly thickened. The mitral valve spectral Doppler A-wave is absent, consistent with atrial fibrillation. There is trace mitral valve regurgitation. The E Vmax is 0.53 m/s. Tricuspid Valve: The tricuspid valve is structurally normal. There is mild tricuspid regurgitation. The Doppler estimated right ventricular systolic pressure (RVSP) is within normal limits at 30 mmHg. Pulmonic Valve: The pulmonic valve is structurally normal. There is physiologic pulmonic valve regurgitation. Pericardium: Trivial pericardial effusion. Aorta: The aortic root is normal. CONCLUSIONS: 1. The left ventricular systolic function is mildly decreased with a visually estimated ejection fraction of 40-45%. 2. There is global hypokinesis of the left ventricle with minor regional variations. 3. Left ventricular cavity size is mildly dilated. 4. Abnormal septal motion consistent with RV pacemaker. 5. There is mildly reduced right ventricular systolic function. 6. Moderately enlarged right ventricle. 7. The right atrial size is severely dilated. 8. Absent A-wave on MV spectral Doppler tracing, consistent with atrial fibrillation. 9. The Doppler estimated RVSP is within normal limits at 30 mmHg. 10. Aortic valve sclerosis. The peak and mean gradients are 7 mmHg and 4 mmHg respectively. QUANTITATIVE DATA SUMMARY: 2D MEASUREMENTS: Normal Ranges: Ao Root d: 3.40 cm (2.0-3.7cm) LAs: 5.20 cm (2.7-4.0cm) IVSd: 1.02 cm (0.6-1.1cm) LVPWd: 1.34 cm (0.6-1.1cm) LVIDd: 5.78 cm (3.9-5.9cm) LVIDs: 4.79 cm LV Mass Index: 130.1 g/m2 LVEDV Index: 64.86 ml/m2 LV % FS 17.1 % LEFT ATRIUM: Normal Ranges: LA Vol A4C: 55.9 ml (22+/-6mL/m2) LA Vol A2C: 69.4 ml LA Vol BP: 68.4 ml LA Vol Index A4C: 25.2ml/m2 LA Vol Index A2C: 31.3 ml/m2 LA Vol Index BP: 30.8 ml/m2 LA Area A4C: 20.3 cm2 LA Area A2C: 20.6 cm2 LA Major Barnhart A4C: 6.3 cm LA Major Barnhart A2C: 5.2 cm LA Volume Index: 25.1 ml/m2 LA Vol A4C: 55.7 ml LA Vol A2C: 57.0 ml LA Vol Index BSA: 25.4 ml/m2 M-MODE MEASUREMENTS: Normal Ranges: AoV Exc: 1.30 cm (1.5-2.5cm) AORTA MEASUREMENTS: Normal Ranges: AoV Exc: 1.30 cm (1.5-2.5cm) LV SYSTOLIC FUNCTION: Normal Ranges: EF-A4C View: 46 % (>=55%) EF-A2C View: 47 % EF-Biplane: 46 % EF-Visual: 43 % LV EF Reported: 43 % LV DIASTOLIC FUNCTION: Normal Ranges: MV Peak E: 0.53 m/s (0.7-1.2 m/s) MV Peak A: 0.50 m/s (0.42-0.7 m/s) E/A Ratio: 1.07 (1.0-2.2) MV e' 0.082 m/s (>8.0) MV lateral e' 0.07 m/s MV medial e' 0.09 m/s E/e' Ratio: 6.51 (<8.0) AORTIC VALVE: Normal Ranges: AoV Vmax: 1.32 m/s (<=1.7m/s) AoV Peak P.0 mmHg (<20mmHg) AoV Mean P.0 mmHg (1.7-11.5mmHg) LVOT Max Marin: 0.63 m/s (<=1.1m/s) AoV VTI: 28.10 cm (18-25cm) LVOT VTI: 12.10 cm LVOT Diameter: 2.50 cm (1.8-2.4cm) AoV Area, VTI: 2.11 cm2 (2.5-5.5cm2) AoV Area,Vmax: 2.35 cm2 (2.5-4.5cm2) AoV Dimensionless Index: 0.43 RIGHT VENTRICLE: RV Basal 5.65 cm RV Mid 3.52 cm RV Major 8.5 cm RV s' 0.15 m/s TRICUSPID VALVE/RVSP: Normal Ranges: Peak TR Velocity: 2.59 m/s Est. RA Pressure: 3 mmHg RV Syst Pressure: 30 mmHg (< 30mmHg) [id number] Enrique Welsh MD Electronically signed on 02/01/2025 at 5:02:45 PM Final The ASCVD Risk score (Flint DK, et al., 2019) failed to calculate for the following reasons: The 2019 ASCVD risk score is only valid for ages 40 to 79 * - Cholesterol units were assumed Low Risk: <5% Borderline Risk: 5%-7.4% Intermediate Risk: 7.5% - 19.9% High Risk: >20% If your symptoms worsen or progress please go directory to your nearest emergency department for evaluation. Thank you for this interesting clinical case and allowing me to participate in the care of this patient. Please reach me out if you have any questions or if you need any clarifications regarding this patient's care. Disclaimer: This note was dictated by speech recognition, and every effort has been made to prevent any error in scrum project manager, however minor errors may be present Octavio Marmolejo CNP, [facility] Advanced Practice Provider, Nurse Practitioner Division of Cardiovascular Medicine [facility] [1] Past Medical History: Diagnosis Date Benign prostatic hyperplasia without lower urinary tract symptoms 07/08/2021 BPH (benign prostatic hyperplasia) Calculus of kidney 12/30/2019 Bilateral renal stones Carpal tunnel syndrome, right upper limb 12/31/2019 Carpal tunnel syndrome of right wrist Cough 10/06/2022 Depression, unspecified 01/05/2022 Depression Disorder of arteries and arterioles, unspecified 01/05/2022 Peripheral arterial occlusive disease Dizziness 10/06/2022 Essential (primary) hypertension 06/29/2022 Hypertension, essential, benign Gastro-esophageal reflux disease without esophagitis 01/05/2022 GERD (gastroesophageal reflux disease) Hyperlipidemia, unspecified 01/05/2022 Hyperlipemia Influenza A 10/06/2022 Male erectile dysfunction, unspecified 09/03/2019 Erectile dysfunction Obesity, unspecified 08/16/2020 Obesity (BMI 30-39.9) Obstructive sleep apnea (adult) (pediatric) 01/05/2022 ALISHA on CPAP Personal history of diseases of the skin and subcutaneous tissue History of actinic keratosis Personal history of other infectious and parasitic diseases History of onychomycosis Personal history of other infectious and parasitic diseases History of tinea pedis Plantar fascial fibromatosis Plantar fasciitis Polyosteoarthritis, unspecified 09/23/2019 Generalized osteoarthritis of multiple sites Rash of genitalia 10/06/2022 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s (Multi) 01/05/2022 Type II 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 Venous insufficiency (chronic) (peripheral) Venous insufficiency of leg [2] Past Surgical History: Procedure Laterality Date CARDIAC ELECTROPHYSIOLOGY PROCEDURE N/A 08/13/2024 Procedure: dcPPM upgrade to PROPERTY CLAIM REP-P; Surgeon: Aravind Jimenez MD; Location: [facility] Cardiac Second Vp Hr Assessment; Service: Electrophysiology; Laterality: N/A; [employer] CARDIAC ELECTROPHYSIOLOGY PROCEDURE N/A 09/26/2024 Procedure: PPM Lead Extraction, dcPPM Upgrade to PROPERTY CLAIM REP-P, [employer], Subclavian is occluded plan for RA extraction; Surgeon: Aravind Jimenez MD; Location: [facility] Cardiac Second Vp Hr Assessment; Service: Electrophysiology; Laterality: N/A; CARDIAC PACEMAKER PLACEMENT 06/2022 INJECTION Left 05/28/2024 Lt L5/S1-S1 TFEIS INJECTION Left 09/12/2024 Lt L4/5 TFESI LUMBAR EPIDURAL INJECTION Bilateral 12/07/2023 Bilat L4/5 TFESI OTHER SURGICAL HISTORY 06/18/2019 Lumbar vertebral fusion OTHER SURGICAL HISTORY 06/18/2019 Retinal detachment repair OTHER SURGICAL HISTORY 06/18/2019 Phacoemulsification of cataract and insertion of intraocular lens OTHER SURGICAL HISTORY 06/18/2019 Circumcision OTHER SURGICAL HISTORY 06/18/2019 Knee replacement OTHER SURGICAL HISTORY 06/18/2019 Sigmoidoscopy flexible OTHER SURGICAL HISTORY 06/18/2019 Dermatological cryotherapy OTHER SURGICAL HISTORY 06/18/2019 Esophagogastroduodenoscopy OTHER SURGICAL HISTORY 06/18/2019 Nail debridement OTHER SURGICAL HISTORY 06/18/2019 Epidural space injection OTHER SURGICAL HISTORY 07/07/2020 Colonoscopy OTHER SURGICAL HISTORY 01/05/2022 Catheter ablation OTHER SURGICAL HISTORY 08/16/2020 Cardiac catheterization OTHER SURGICAL HISTORY 05/11/2020 Inguinal hernia repair PACEMAKER PLACEMENT [3] No Known Allergies [4] Social History Tobacco Use Smoking status: Never Passive exposure: Never Smokeless tobacco: Never Vaping Use Vaping status: Never Used Substance Use Topics Alcohol use: Never Drug use: Never [5] Family History Problem Relation Name Age of Onset Other (CVA) Mother Diabetes type II Father Diabetes type II Sister Heart attack Brother Coronary artery disease Brother Kidney failure Brother Diabetes type II Brother documented in this encounter [facility] Work Phone: 03-04-2025 Note Nail care Patient is a pleasant 79 year-old male who comes in today for diabetic nail care. His diabetes is managed by primary care including Dr. Kin Anne. Hemoglobin A1c is 7.5% with some tingling burning and loss of sensation. Physical Vascular: DP pulses are palpable 2 out of 4. PT pulses are nonpalpable bilaterally. CFT is fair with mild edema. Compression socks are helping. Feet are warm to cool proximal to distal. Hair growth absent to the lower extremity and skin is shiny atrophic dysvascular. Nails one left and one right are elongated thickened mycotic crumbling and dystrophic. Nails left foot 2345 and right foot 2345 are elongated and thickened and mycotic. Neuro: Sharp dull is blunted Babinski's is fair. Musculoskeletal: Muscle strength is 5/5 with fair tone, can easily wiggle toes without any clicking or catching. L Assessment and plan: Patient is a pleasant 79-year-old male, diabetes with peripheral arterial disease, onychomycosis to two nails and onychodystrophy to eight nails. -He does qualify for nail care given his peripheral arterial disease and risk. Procedure: Nails left foot one 2345 bilaterally were sharply debrided and debulk in height and length with a sharp pair of nail nippers consistent with a q8 modifier. Follow-up in 3 months for foot nail care. AUTHENTICATED BY CHINTAN MALDONADO JR., ON 03/04/2025 08:27:27 [facility] 03-04-2025 History of Present illness Narrative Nail care Patient is a pleasant 79 year-old male who comes in today for diabetic nail care. His diabetes is managed by primary care including Dr. Kin Anne. Hemoglobin A1c is 7.5% with some tingling burning and loss of sensation. Physical Vascular: DP pulses are palpable 2 out of 4. PT pulses are nonpalpable bilaterally. CFT is fair with mild edema. Compression socks are helping. Feet are warm to cool proximal to distal. Hair growth absent to the lower extremity and skin is shiny atrophic dysvascular. Nails one left and one right are elongated thickened mycotic crumbling and dystrophic. Nails left foot 2345 and right foot 2345 are elongated and thickened and mycotic. Neuro: Sharp dull is blunted Babinski's is fair. Musculoskeletal: Muscle strength is 5/5 with fair tone, can easily wiggle toes without any clicking or catching. L Assessment and plan: Patient is a pleasant 79-year-old male, diabetes with peripheral arterial disease, onychomycosis to two nails and onychodystrophy to eight nails. -He does qualify for nail care given his peripheral arterial disease and risk. Procedure: Nails left foot one 2345 bilaterally were sharply debrided and debulk in height and length with a sharp pair of nail nippers consistent with a q8 modifier. Follow-up in 3 months for foot nail care. documented in this encounter [facility] 03-04-2025 Note T11 :This report has been cancel led. [facility] 02-06-2025 Note Left fifth toe pain Patient is a pleasant 79-year-old male with left fifth toe pain. Declines any trauma states it came out of nowhere. Physical Vascular: DP PT pulses are poorly palpable. CFT is fair minimal edema. Derm: No erythema no open wounds no ulcers no rashes Does have pain to the fifth toe with direct compression patient with hyperkeratosis present. No undermining no fluctuance or crepitation. 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 As a courtesy did help shave down his callus. Should wear soft wide shoes. Nothing urgent today. Addition regarding his second toe, did discuss proceeding with a hammertoe repair but states he is not interested at this time as he had a pretty big surgery earlier in the year worth a long hospitalization. Follow-up as needed for this any new issues. AUTHENTICATED BY CHINTAN MALDONADO JR., ON 02/06/2025 14:25:55 [facility] 02-06-2025 History of Present illness Narrative Left fifth toe pain Patient is a pleasant 79-year-old male with left fifth toe pain. Declines any trauma states it came out of nowhere. Physical Vascular: DP PT pulses are poorly palpable. CFT is fair minimal edema. Derm: No erythema no open wounds no ulcers no rashes Does have pain to the fifth toe with direct compression patient with hyperkeratosis present. No undermining no fluctuance or crepitation. 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 As a courtesy did help shave down his callus. Should wear soft wide shoes. Nothing urgent today. Addition regarding his second toe, did discuss proceeding with a hammertoe repair but states he is not interested at this time as he had a pretty big surgery earlier in the year worth a long hospitalization. Follow-up as needed for this any new issues. documented in this encounter [facility] 01-29-2025 Evaluation + Plan note Associated Problem(s): Obstructive sleep apnea on CPAP Patient has been using their CPAP nightly and is experiencing restful sleep, no morning headaches, no witnessed snoring, and notices a difference if they do not use the device. [facility] Work Phone: 01-29-2025 Evaluation + Plan note Associated Problem(s): BPH (benign prostatic hyperplasia) Lightheadedness better off of tamsulosin, BPH symptoms no different [facility] Work Phone: 01-29-2025 Miscellaneous Notes Associated Problem(s): Obstructive sleep apnea on CPAP Patient has been using their CPAP nightly and is experiencing restful sleep, no morning headaches, no witnessed snoring, and notices a difference if they do not use the device. Associated Problem(s): BPH (benign prostatic hyperplasia) Lightheadedness better off of tamsulosin, BPH symptoms no different Associated Problem(s): Diabetes mellitus, type 2 (Multi) A1c testing 7.2, tolerating medication, no change Associated Problem(s): Hypertension, essential, benign Blood pressure stable no change Associated Problem(s): Chronic diastolic congestive heart failure Stable currently, blood pressure under good control, lightheadedness improved with reduction in SGL 2 and holding tamsulosin. documented in this encounter [facility] Work Phone: 01-29-2025 Evaluation + Plan note Associated Problem(s): Diabetes mellitus, type 2 (Multi) A1c testing 7.2, tolerating medication, no change [facility] Work Phone: 01-29-2025 Evaluation + Plan note Associated Problem(s): Hypertension, essential, benign Blood pressure stable no change [facility] Work Phone: 01-29-2025 Evaluation + Plan note Associated Problem(s): Chronic diastolic congestive heart failure Stable currently, blood pressure under good control, lightheadedness improved with reduction in SGL 2 and holding tamsulosin. [facility] Work Phone: 01-29-2025 History of Present illness Narrative Subjective Patient ID: Rocio Sandoval is a 79 y.o. male who presents for Follow-up (1mo chk- rev labs(done)). HPI No headache, chest pain, shortness of breath, dizziness, lightheadedness, or edema Dizziness some better, no falls Some urine leak, no nocturia Review of Systems Constitutional: Negative for activity change, appetite change and fatigue. Respiratory: Negative for cough, chest tightness and shortness of breath. Cardiovascular: Negative for chest pain, palpitations and leg swelling. Gastrointestinal: Negative for abdominal pain, constipation, diarrhea, nausea and vomiting. Objective BP 122/70 Pulse 74 Ht 1.88 m (6' 2) Wt 99.3 kg (219 lb) SpO2 97% BMI 28.12 kg/m Physical Exam Vitals and nursing note reviewed. Constitutional: Appearance: Normal appearance. HENT: Head: Normocephalic and atraumatic. Right Ear: Tympanic membrane, ear canal and external ear normal. Left Ear: Tympanic membrane, ear canal and external ear normal. Nose: Nose normal. Mouth/Throat: Mouth: Mucous membranes are moist. Pharynx: Oropharynx is clear. Cardiovascular: Rate and Rhythm: Normal rate and regular rhythm. Pulses: Normal pulses. Heart sounds: Normal heart sounds. Pulmonary: Effort: Pulmonary effort is normal. Breath sounds: Normal breath sounds. Musculoskeletal: Cervical back: Normal range of motion and neck supple. Skin: General: Skin is warm and dry. Capillary Refill: Capillary refill takes less than 2 seconds. Neurological: Mental Status: He is alert. Psychiatric: Mood and Affect: Mood normal. Behavior: Behavior normal. Assessment/Plan Problem List Items Addressed This Visit ICD-10-CM BPH (benign prostatic hyperplasia) N40.0 Lightheadedness better off of tamsulosin, BPH symptoms no different Relevant Orders Follow Up In Primary Care - Established Chronic diastolic congestive heart failure I50.32 Stable currently, blood pressure under good control, lightheadedness improved with reduction in SGL 2 and holding tamsulosin. 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 Relevant Orders Follow Up In Primary Care - Established Permanent atrial fibrillation (Multi) I48.21 Relevant Orders CBC and Auto Differential Comprehensive Metabolic Panel Follow Up In Primary Care - Established Diabetes mellitus, type 2 (Multi) - Primary E11.9 A1c testing 7.2, tolerating medication, no change Relevant Orders Comprehensive Metabolic Panel Hemoglobin A1C Lipid Panel Albumin-Creatinine Ratio, Urine Random Follow Up In Primary Care - Established Other Visit Diagnoses Codes Orthostatic hypotension I95.1 Relevant Orders Follow Up In Primary Care - Established Screening for prostate cancer Z12.5 Relevant Orders Prostate Specific Antigen, Screen Follow Up In Primary Care - Established documented in this encounter [facility] Work Phone: 01-26-2025 Instructions Herman Naidu MD - 01/26/2025 9:01 AM EDT Labs on the way out, and then at intervals depending on results. Ultrasound in 08/2025. Let me know sooner in case of change in symptoms (significant fatigue, racing heart, tremors, change in bowel movements, feeling colder/warmer, remarkable weight change,..). Let me know sooner if there is change in neck symptoms like enlarging neck lump, new/worsening difficulty swallowing, voice changes, choking/pressure sensation. documented in this encounter [facility] 01-26-2025 History of Present illness Narrative Images from the original note were not included. Reason for visit/chief complaint: hyperthyroidism. Date: 01/26/2025 Referring Provider: No ref. provider found Primary Care Provider: Tye Anne MD HPI: Interval hx/subjective: 01/26/2025: he had esophageal injury after his pacemaker was changed. He had a gastric tube for ~1 month. He was discharged ~2 months ago. No amiodarone/TRT. No biotin, B-complex, but takes MVI (with biotin 30 mcg). He feels tired. Occasionally has palpitations. No tremors. No heat/cold intolerance. Bms are normal mostly, occasionally constipation. Weight has been stable. No recent use of steroids. No eye symptoms, Has been having some swallowing issues after the last esophageal issues, also with some voice changes (harsher). No neck lumps or pressure sensation in the neck. 09/10/2024: Has some fatigue. No palpitations, no tremors unless BG goes down. Bms are normal for the most part. No heat/cold intolerance. Weight has been stable.has dry skin, no hair loss. No neck lumps/pain, dysphagia, choking on food. Recent voice change for ~a couple of months, on/off, no neck pressure sensation. No eye symptoms apart from L eye sometimes watery. Takes MVI and eye MVI (the latter was stopped ~2 weeks ago). No biotin/B-complex. No steroids. Used to take TRT, last used in 06/2024. Background from the initial consult note from 07/16/2024: Mr. Sandoval is a 79 y.o. male with hx of a-fib (dx 2020: cardioversion, amiodarone therapy~ 2 years-discontinued 05/25 and started metoprolol, ablation, PM, Xarelto), BPH, carpal tunnel, kidney stones, depression, CAD, PAD, HTN, GERD, HLD, ALISHA, OA, type 2 DM, venous insufficiency who was referred here by PCP for hyperthyroidism. Thyrotoxicosis on lab evaluation was initially found in 05/25 with suppressed TSH and elevated free T4. Repeat lab pattern found in June 2024 and patient was subsequently referred to endocrinology.Patient denies previous history of any type of thyroid problems. TSH levels in April 2023 and October 2023 were within normal limits. Patient has taken amiodarone since approximately 2021 for atrial fibrillation. This was stopped by his artist blacksmith in May of 2024 (started metoprolol); there is notation of the suppressed TSH by artist blacksmith note (Dr. Jimenez S). Patient's most recent echo in April of 2024 revealed EF 42%; prior 06/21 echo with EF 60-65%. [id number] med stress echo revealed EF estimate 39% without inducible ischemia. Plan is to upgrade patient's pacemaker and have AV obinna ablation on 08/13/24 per review of cardiology note . He takes no thyroid medications. No biotin supplements. Mr. Sandoval endorses fatigue, dry skin, tremors, and diarrhea/hyperdefecation. No constipation, hair loss, muscle weakness/pain, palpitations, heat intolerance, excessive anxiety/nervousness, or weight change. He has red/dry eyes. No bulging eyes or double vision. In regards to mechanical/obstructive symptoms, He endorses neck pain, dysphagia. No neck lump/swelling, neck pain, choking on food, voice changes. He reports no pressure/choking sensation but does have occ globus sensation. Risk factors: -Hx of autoimmune diseases: none -Family hx of thyroid disease/cancer: daughter--thinks overactive thyroid; granddaughter with thyroid nodule possibly; no cancer known -Hx of thyroid surgery: no -Hx of high risk/interfering medications: amiodarone treatment since ~ 2021--amiodarone was stopped 05/25; no lithium; no recent steroids -Recent URI/ no: / NA -Hx of head/neck irradiation: no -Smoking: no Review of Systems: as per HPI Medical History: Past Medical History: Diagnosis Date A-fib ([facility]) Acquired hammer toe Allergy Arthritis Back pain Cataract removed Diabetes mellitus, type 2 ([facility]) Dizzy spells Foot cramps Foot pain, bilateral Fracture of phalanx of toe Frequent urination GERD (gastroesophageal reflux disease) Hiatal hernia High blood pressure High cholesterol History of stress test 03/08/2018 scheduled at [facility] Hyperthyroidism 05/2024 Kidney stones 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 Nephrolithiasis passed Night sweats Numbness in both hands Obesity OM (onychomycosis) PAD (peripheral artery disease) ([facility]) Peripheral neuropathy numbness fingers, tingling and some numbness left leg and foot Plantar fasciitis right Pneumonia in infectious disease PONV (postoperative nausea and vomiting) Radiculopathy of lumbar region Ringing in ears Shortness of breath on exertion Sinus pain Swollen feet Tinea pedis Tired feet Urinary urgency Venous insufficiency of both lower extremities Vision problem Surgical History: Past Surgical History: Procedure Laterality Date ABLATION WITH PHENOL BACK SURGERY 1960 LUMBAR BURSECTOMY ELBOW Left 01/05/2023 Procedure: Left elbow bursectomy; Surgeon: Elías Hsu MD; Location: [place]; Service: Orthopedic CARDIAC CATHETERIZATION N/A CARDIAC PACEMAKER PLACEMENT CATARACT EXT/ECCE Right Catheter ablation N/A COLONOSCOPY X 3 CT COLONOSCOPY 07/16/2022 CT COLONOSCOPY ESOPHAGOGASTRODUODENOSCOPY HERNIA REPAIR Right INGUINAL HERNIA REPAIR INGUINAL OPEN N/A LAMINECTOMY DECOMP LUMBAR MULTI LEVEL Right 03/13/2018 Procedure: RIGHT L2-L5 LAMINECTOMY DECOMPRESSION; Surgeon: Kailey Hilton MD; Location: [facility] Main OR; Service: Orthopedic LUMBAR EPIDURAL INJECTION N/A RETINAL DETACHMENT SURGERY TOTAL KNEE ARTHROPLASTY Left 06/2016 US THYROID BIOPSY WITH FNA 08/28/2024 THYROID BIOPSY WITH FNA 08/28/2024 Herman Naidu MD ULTRASOUND Family History: Family History Problem Relation Age of Onset Stroke Mother 48 cause of Heart attack Brother Heart disease Brother 60 Diabetes Brother Heart failure Brother Kidney failure Brother Diabetes Sister No Known Problems Father Surgical 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s Neg Hx Anesthesia problems Neg Hx Clotting disorder Neg Hx Deep vein thrombosis Neg Hx Pulmonary embolism Neg Hx Social History: Social History Socioeconomic History Marital status: Tobacco Use Smoking status: Never Smokeless tobacco: Never Vaping Use Vaping status: Never Used Substance and Sexual Activity Alcohol use: No Alcohol/week: 0.0 standard drinks of alcohol Drug use: No Social Drivers of Health Financial Resource Strain: Low Risk (09/29/2024) Received from [facility] Overall Financial Resource Strain (CARDIA) Difficulty of Paying Living Expenses: Not very hard Food Insecurity: No Food Insecurity (09/29/2024) Received from [facility] Hunger Vital Sign Worried About Running Out of Food in the Last Year: Never true Ran Out of Food in the Last Year: Never true Transportation Needs: No Transportation Needs (09/29/2024) Received from [facility] PRAPARE - Transportation Lack of Transportation (Medical): No Lack of Transportation (Non-Medical): No Social Connections: Unknown (09/29/2024) Received from [facility] Social Connection and Isolation Panel [NHANES] Marital Status: Living with partner Housing Stability: Low Risk (09/29/2024) Received from [facility] Housing Stability Vital Sign Unable to Pay for Housing in the Last Year: No Number of Times Moved in the Last Year: 0 Homeless in the Last Year: No Allergies: Allergies Allergen Reactions Morphine Nausea and vomiting He was 15 when he had a reaction. It was actually anesthetics. No Known Allergies Current Medications: Current Outpatient Medications Medication Sig Dispense Refill atorvastatin (LIPITOR) 40 MG tablet Take 1 (one) tablet (40 mg total) by mouth nightly . empagliflozin (Jardiance) 25 mg Tab Take by mouth . fexofenadine (SULAIMAN) 180 MG tablet TAKE 1 TABLET (180 MG) BY MOUTH ONCE DAILY. furosemide (LASIX) 20 MG tablet Take 1 (one) tablet (20 mg total) by mouth every other day . gabapentin (NEURONTIN) 400 MG capsule Take 1 (one) capsule (400 mg total) by mouth 3 (three) times a day . (Patient taking differently: Take 2 (two) capsules (800 mg total) by mouth 3 (three) times a day .) MELATONIN ORAL Take by mouth . metFORMIN (GLUCOPHAGE-XR) 750 MG 24 hr tablet Take 1 (one) tablet (750 mg total) by mouth 2 (two) times a day Take 1 tab bid . metoprolol succinate (TOPROL-XL) 25 MG 24 hr tablet Take 0.5 (one-half) tablet (12.5 mg total) by mouth daily . pantoprazole (PROTONIX) 40 MG tablet Take 1 (one) tablet (40 mg total) by mouth every morning before breakfast . rivaroxaban (XARELTO) 20 mg Tab Take 1 (one) tablet (20 mg total) by mouth daily On hold . therapeutic multivitamin (THERAGRAN) tablet Take 1 (one) tablet by mouth daily . vit A/vit C/vit E/zinc/copper (PRESERVISION AREDS ORAL) Take by mouth . acetaminophen (TYLENOL ORAL) Take 650 mg by mouth. (Patient not taking: Reported on 01/26/2025 .) amiodarone (CORDARONE) 200 MG tablet Take 1 (one) tablet (200 mg total) by mouth at bedtime . (Patient not taking: Reported on 01/26/2025 .) blood sugar diagnostic (glucose blood) strips by Miscellaneous route . (Patient not taking: Reported on 01/26/2025 .) mupirocin (BACTROBAN) 2 % ointment Apply topically 3 (three) times a day . (Patient not taking: Reported on 01/26/2025 .) 22 g 0 omeprazole (PRILOSEC) 40 MG capsule (Patient not taking: Reported on 01/26/2025 .) tamsulosin (FLOMAX) 0.4 mg capsule every morning before breakfast . (Patient not taking: Reported on 01/26/2025 .) testosterone cypionate (DEPOTESTOTERONE CYPIONATE) 100 mg/mL injection Inject 1 mL (100 mg total) into the shoulder, thigh, or buttocks every 14 (fourteen) days . (Patient not taking: Reported on 01/26/2025 .) traZODone (DESYREL) 50 MG tablet TAKE 1 2 (ONE HALF) TABLET BY MOUTH ONCE DAILY AT BEDTIME (Patient not taking: Reported on 05/26/2024 .) vit B cplxC 60-ojbgoej-wir-Q10 (Brain Wpysg-BQV-Xu Q10) 140-10-10 mg Tab Take by mouth . (Patient not taking: Reported on 01/26/2025 .) vit C,F-Au-wfijr-lutein-zeaxan (Eye Health Vitamin-Mineral) 250-90-10-1 mg cap Take by mouth . (Patient not taking: Reported on 01/26/2025 .) No current facility-administered medications for this visit. Physical Exam: Vitals: BP 113/74 (BP Location: Right arm, Patient Position: Sitting) Pulse 74 Wt 96.4 kg (212 lb 8 oz) BMI 27.28 kg/m , Body mass index is 27.28 kg/m ., Wt Readings from Last 3 Encounters: 01/26/25 96.4 kg (212 lb 8 oz) 09/10/24 101.6 kg (224 lb) 07/16/24 106.3 kg (234 lb 6.4 oz) General/Constitutional: , well-developed and in no distress Eyes: no remarkable proptosis Neck: no thyroid nodules or enlarged Lns appreciated Cardiovascular: regular rhythm Pulmonary/Chest: effort normal Neurological: alert and oriented, no focal deficits, mild tremors in hands/fingers, DTRs normal Skin: warm Psychiatric: appropriate affect Lab/Imaging Data: Lab Results Component Value Date WBC 8.15 07/20/2024 HGB 13.8 07/20/2024 HCT 45.1 07/20/2024 MCV 94.2 07/20/2024 PLT 276 07/20/2024 Lab Results Component Value Date GLUCOSE 98 07/20/2024 NA 143 07/20/2024 K 4.5 07/20/2024 CL 107 07/20/2024 BUN 16 07/20/2024 CREATININE 0.89 07/20/2024 Lab Results Component Value Date ALT 9 07/20/2024 AST 17 07/20/2024 ALKPHOS 85 07/20/2024 BILITOT 0.4 07/20/2024 No results found for: TSH, [id number], THYROIDAB Lab Results Component Value Date CALCIUM 9.5 07/20/2024 No results found for: LDLCALC, CHOL, HDL, TRIG, CHOLHDL 04/25/23: tsh 3.19 10/23/23: tsh 2.16 05/13/24: TSH 0.03 (0.44-3.98), FT 4 1.45 (0.61-1.12) 06/12/24: TSH 0.02, FT 4 1.67 (0.61-1.12), creat 1.05, gluc 103, egfr 72, lft unremarkable, wbc 7.1, plt 274, normal differential Thyroid/neck US 07/20/2024: COMPARISON: None. FINDINGS: Right thyroid 5.0 x 2.1 x 1.9 cm. Calcified nodule superior right gland measures up to 1.7 cm. Left thyroid 4.6 x 1.8 x 1.6 cm. No mass. Thyroid isthmus is 0.4 cm in thickness. No hyperemia identified with color Doppler. Borderline prominent lymph nodes are seen in the left neck level 4, measuring up to 8 mm in short axis with compressed fatty kostas. IMPRESSION: 1. Peripherally calcified thyroid nodule in the right hemithyroid. Consider ultrasound-guided fine-needle aspiration as this is TIRADS 4. 2. No hyperemia of the thyroid. 3. Mildly enlarged lymph nodes in the left neck at level 4 region. Consider ultrasound follow-up in 3-6 months time. Pathology 08/28/2024: A. Thyroid, Right Superior, fine needle aspiration (FNA) biopsy: BENIGN ([place] Category II) Consistent with a benign follicular nodule (includes adenomatoid nodule, colloid nodule, etc.). Latest Reference Range & Units 07/16/24 11:25 08/08/24 10:38 09/10/24 12:45 TSH ([facility]) 0.40 - 4.50 mIU/L 0.07 (L) 2.57 2.93 T4, Free ([facility]) 0.8 - 1.8 ng/dL 1.5 1.2 1.1 T3, Total ([facility]) 76 - 181 ng/dL 92 67 (L) 101 T4 (Thyroxine), Total ([facility]) 4.9 - 10.5 mcg/dL 6.9 6.2 09/10/2024: TSH 2.93, FT4 1.1, T3 101, TPO-Ab <1 10/29/2024: TSH 4.84, FT4 1.1 Neck US 12/02/24: COMPARISON: 07/10/2024 ultrasound of the neck and thyroid. TECHNIQUE: Ultrasound of the neck. FINDINGS: No enlarged or suspicious cervical lymph nodes identified. IMPRESSION: No enlarged or suspicious cervical lymph nodes identified. Assessment and plan: Mr. Sandoval is a 79 y.o. male with hx of of a-fib (dx 2020: cardioversion, amiodarone therapy~ 2 years-discontinued 05/25 and started metoprolol, ablation, PM, Xarelto), BPH, carpal tunnel, kidney stones, depression, CAD, PAD, HTN, GERD, HLD, ALISHA, OA, type 2 DM, venous insufficiency, low testosterone (on testerone injections) who was referred here by PCP for hyperthyroidism. Mr. Sandoval has taken amiodarone for a-fib from 2021-05/25. The amiodarone was stopped by cardiology in May of 2024 after TSH was found to be suppressed with elevated FT4. Patient's cardiac evaluation/echo in 04/24 showed persistent A-fib with a new decline in EF. Patient is planned to undergo ablation and PM upgrade in August of 2024. Repeat thyroid levels in June of 2024 showed persistent suppressed TSH and elevated FT4. Patient has no known prior thyroid abnormalities. 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 We did discuss additional possible causes including Graves disease, toxic nodule or thyroiditis. -Today will check TSH, FT4, T3, FT3 and TSI, TRAB -thyroid ultrasound (neck and soft tissue) ordered -If patient's antibodies for Graves' disease are neg, a thyroid uptake and scan would be helpful to further delineate the cause however patient had a nuclear medicine study 06/09/24 so we would not be able to do this for at least another month or so. -We discussed treatment options would depend upon etiology--if AIT, it can be difficult to differentiate between type 1 and type 2 or patient may have mixed AIT. Treatment for both types may be indicated especially in light of current cardiac dysfunction. Will follow-up with patient regarding treatment recommendations once we have additional information. 09/10/2024: Repeat labs in 07/2024 showed improvement in TFTs and in 08/2024 showed normalization of TFTs with mildly low T3. This can be AIT2 which is resolving now. We need to monitor for possible hypothyroidism. Repeat TFTs now and will probably need to repeat periodically in the next few months. Patient had US in 07/2024 reporting R sided 1.7 cm nodule with peripheral calcification, which was FNAd in 08/2024 and came back benign. During FNA, I believe there is also another 1.5 cm isoechoic nodule in R inferior lobe which was not FNAd. US also reported 2 L sided lymph nodes ~1 cm that need monitoring; repeat US in ~6 months. He should let us know sooner in case of change in symptoms. 01/26/2025: TFTs in 08/2024 showed normal TFTs with normal TPO-Ab, then in 09/2024 showed mildly high TSH 4.84 (can be normal for age/?SES) with normal FT4. Repeat US in 11/2024 reported no enlarged/suspicious lymph nodes. Will repeat TFTs now to make sure not flipping to hypothyroidism. Planning to repeat thyroid/neck US in 08/2025, sooner if case of change in symptoms. Prefers phone calls. Return in about 30 weeks (around 2025) for thyroid f/u. Time spent reviewing chart, during the encounter, putting orders and coordinating care on the encounter day is 23 minutes. Herman Naidu MD Endocrinology documented in this encounter [facility] 01-26-2025 Note Reason for visit/chi ef complaint: hyperthyroidism. Date: 01/26/2025 Referring Provider: No ref. provider found Primary Care Provider: Tye Anne MD HPI: Interval hx/subjective: 01/26/2025: he had esophageal injury after his pacemaker was changed. He had a gastric tube for ~1 month. He was discharged ~2 months ago. No amiodarone/TRT. No biotin, B-complex, but takes MVI (with biotin 30 mcg). He feels tired. Occasionally has palpitations. No tremors. No heat/cold intolerance. Bms are normal mostly, occasionally constipation. Weight has been stable. No recent use of steroids. No eye symptoms, Has been having some swallowing issues after the last esophageal issues, also with some voice changes (harsher). No neck lumps or pressure sensation in the neck. 09/10/2024: Has some fatigue. No palpitations, no tremors unless BG goes down. Bms are normal for the most part. No heat/cold intolerance. Weight has been stable.has dry skin, no hair loss. No neck lumps/pain, dysphagia, choking on food. Recent voice change for ~a couple of months, on/off, no neck pressure sensation. No eye symptoms apart from L eye sometimes watery. Takes MVI and eye MVI (the latter was stopped ~2 weeks ago). No biotin/B-complex. No steroids. Used to take TRT, last used in 06/2024. Background from the initial consult note from 07/16/2024: Mr. Sandoval is a 79 y.o. male with hx of a-fib (dx 2020: cardioversion, amiodarone therapy~ 2 years-discontinued 05/25 and started metoprolol, ablation, PM, Xarelto), BPH, carpal tunnel, kidney stones, depression, CAD, PAD, HTN, GERD, HLD, ALISHA, OA, type 2 DM, venous insufficiency who was referred here by PCP for hyperthyroidism. Thyrotoxicosis on lab evaluation was initially found in 05/25 with suppressed TSH and elevated free T4. Repeat lab pattern found in June 2024 and patient was subsequently referred to endocrinology.Patient denies previous history of any type of thyroid problems. TSH levels in April 2023 and October 2023 were within normal limits. Patient has taken amiodarone since approximately 2021 for atrial fibrillation. This was stopped by his artist blacksmith in May of 2024 (started metoprolol); there is notation of the suppressed TSH by artist blacksmith note (Dr. Jimenez S). Patient's most recent echo in April of 2024 revealed EF 42%; prior 06/21 echo with EF 60-65%. [id number] med stress echo revealed EF estimate 39% without inducible ischemia. Plan is to upgrade patient's pacemaker and have AV obinna ablation on 08/13/24 per review of cardiology note . He takes no thyroid medications. No biotin supplements. Mr. Sandoval endorses fatigue, dry skin, tremors, and diarrhea/hyperdefecation. No constipation, hair loss, muscle weakness/pain, palpitations, heat intolerance, excessive anxiety/nervousness, or weight change. He has red/dry eyes. No bulging eyes or double vision. In regards to mechanical/obstructive symptoms, He endorses neck pain, dysphagia. No neck lump/swelling, neck pain, choking on food, voice changes. He reports no pressure/choking sensation but does have occ globus sensation. Risk factors: -Hx of autoimmune diseases: none -Family hx of thyroid disease/cancer: daughter--thinks overactive thyroid; granddaughter with thyroid nodule possibly; no cancer known -Hx of thyroid surgery: no -Hx of high risk/interfering medications: amiodarone treatment since ~ 2021--amiodarone was stopped 05/25; no lithium; no recent steroids -Recent URI/ no: / NA -Hx of head/neck irradiation: no -Smoking: no Review of Systems: as per HPI Medical History: Past Medical History: Diagnosis Date A-fib ([facility]) Acquired hammer toe Allergy Arthritis Back pain Cataract removed Diabetes mellitus, type 2 ([facility]) Dizzy spells Foot cramps Foot pain, bilateral Fracture of phalanx of toe Frequent urination GERD (gastroesophageal reflux disease) Hiatal hernia High blood pressure High cholesterol History of stress test 03/08/2018 scheduled at [facility] Hyperthyroidism 05/2024 Kidney stones 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 Nephrolithiasis passed Night sweats Numbness in both hands Obesity OM (onychomycosis) PAD (peripheral artery disease) ([facility]) Peripheral neuropathy numbness fingers, tingling and some numbness left leg and foot Plantar fasciitis right Pneumonia in infectious disease PONV (postoperative nausea and vomiting) Radiculopathy of lumbar region Ringing in ears Shortness of breath on exertion Sinus pain Swollen feet Tinea pedis Tired feet Urinary urgency Venous insufficiency of both lower extremities Vision problem Surgical History: Past Surgical History: Procedure Laterality Date ABLATION WITH PHENOL BACK SURGERY 1960 LUMBAR BURSECTOMY ELBOW Left 01/05/2023 Procedure: Left elbow bursectomy; Surgeon: Elías Hsu (more content not included)... [facility] 01-15-2025 History of Present illness Narrative Images from the original note were not included. Cardiac Electrophysiology Office Visit Referred by Dr. Lazaro ref. provider found for Chief Complaint Patient presents with Follow-up 2 month fuv, doesn't feel the best lately. Has medication questions. HPI: Rocio Sandoval is a 79 y.o. year old male patient with h/o DM, HTN, HLD, ALISHA, AF presenting today for follow up Objective Current Outpatient Medications Medication Instructions acetaminophen (TYLENOL 8 HOUR) 650 mg, Every 8 hours PRN acetaminophen (TYLENOL) 650 mg, j-tube, Every 4 hours PRN acetaminophen (TYLENOL) 500 mg, Every 6 hours PRN atorvastatin (LIPITOR) 40 mg, oral, Daily Blood glucose monitoring meter USE ONCE DAILY blood sugar diagnostic (Blood Glucose Test) TEST ONCE DAILY empagliflozin (JARDIANCE) 10 mg, oral, Daily fexofenadine (SULAIMAN) 180 mg, Daily furosemide (LASIX) 20 mg, oral, Daily PRN gabapentin (NEURONTIN) 800 mg, oral, Nightly lancets misc TEST ONCE DAILY melatonin 5 mg, Nightly metFORMIN XR (GLUCOPHAGE-XR) 750 mg, 2 times daily metoprolol succinate XL (TOPROL-XL) 12.5 mg, oral, Daily multivitamin tablet 1 tablet, Daily pantoprazole (PROTONIX) 40 mg, oral, Daily before breakfast rivaroxaban (XARELTO) 20 mg, g-tube, Daily with evening meal, Take with food. Administer via jejunostomy tube please tamsulosin (FLOMAX) 0.4 mg, Daily vit C/E/Zn/coppr/lutein/zeaxan (PRESERVISION AREDS-2 ORAL) 1 tablet, Daily Visit Vitals BP 122/66 (BP Location: Left arm) Pulse 70 Ht 1.88 m (6' 2) Wt 98.4 kg (217 lb) SpO2 96% BMI 27.86 kg/m Smoking Status Never BSA 2.27 m Physical Exam Constitutional: Appearance: Normal appearance. HENT: Head: Normocephalic. Cardiovascular: Rate and Rhythm: Normal rate and regular rhythm. Pulses: Normal pulses. Heart sounds: No murmur heard. Comments: left sided implant healed well, no ecchymosis, hematoma or drainage noted Pulmonary: Effort: Pulmonary effort is normal. No respiratory distress. Musculoskeletal: General: No swelling. Skin: General: Skin is warm and dry. Neurological: Mental Status: He is alert. Psychiatric: Mood and Affect: Mood normal. My Interpretation of Reviewed Study(s): Echo (June 2021): Normal LV function with an EF of 60 to 65%. Biatrial enlargement with a small PFO. Echo (April 2024): Mildly reduced LV function with an EF of 42%. Mildly dilated left atrium and normal right atrial size. [id number] Score Age >= 75: 2 Sex Male: 0 CHF History No: 0 HTN Yes: 1 Stroke/TIA/Thromboembolism No: 0 Vascular Dz: CAD/PAD/Aortic Plaque No: 0 DM Yes: 1 Total Score 4 Assessment & Plan Persistent atrial fibrillation s/p RFA (PVI, PWI November 2021) AF Dx History: 2020; h/o Cardioversion: Yes; AAD Use: Amiodarone 200mg (current); Anticoagulation use: Xarelto 20mg Daily (current); h/o Ablation: Yes; [id number] Score: 4 Persistent atrial fibrillation managed with metoprolol XL and rivaroxaban. Heart rate generally well-controlled between 67-70 bpm, with occasional increases to 100 bpm during activity. - Continue metoprolol succinate XL 12.5 mg daily. - Continue rivaroxaban 20 mg daily for stroke prevention. SSS s/p dcPPM (2021) s/p Upgrade to PROPERTY CLAIM REP-P s/p RA lead extraction Extraction procedure complicated by esophageal perforation s/p esophageal stenting and repair by thoracic surgery and now stent removal Patient has a Medtronic Biventricular pacemaker. Anticipated battery longevity 10.7yrs (as of 05/13/24). RA pacing 3.9%, RV pacing 92.1%. Arrhythmias noted on interrogation: AF burden 99.7%. Lead parameters stable with steady impedance and thresholds noted: Stable - Continue to follow with device clinic as scheduled Heart failure with mildly reduced ejection fraction Heart failure managed with empagliflozin, furosemide, and metoprolol. Recent dehydration episode likely related to inadequate fluid intake and diuretic use. - Continue empagliflozin 25 mg as needed for significant weight gain or swelling. - Continue furosemide 20 mg as needed. - Monitor daily weight and fluid status. Chest pain Intermittent sharp chest pain occurring at rest, not exertional. Differential includes cardiac and musculoskeletal causes. - Order echocardiogram to assess heart function and rule out cardiac causes of chest pain. - Consider stress test or cardiac catheterization if echocardiogram shows persistent low function. Return to Clinic: Patient should return to the EP Clinic in 6 months Aravind Jimenez MD [facility] Cardiac Electrophysiology [email or web address] Disclaimer: This note was dictated by speech recognition, and every effort has been made to prevent any error in scrum project manager, however minor errors may be present documented in this encounter [facility] Work Phone: 12-26-2024 Evaluation + Plan note Associated Problem(s): Diabetes mellitus, type 2 (Multi) Reduce SGL 2 to 10 mg once a day, plan to recheck blood test in 1 month, continue with metformin. [facility] Work Phone: 12-26-2024 Evaluation + Plan note Associated Problem(s): Chronic diastolic congestive heart failure Blood pressure stable, asymptomatic. Uses furosemide depending on weight changes, no active symptoms of PND orthopnea SmartLink not supported outside of the Encounter Diagnoses SmartSection. [facility] Work Phone: 12-26-2024 Evaluation + Plan note Associated Problem(s): Chronotropic incompetence Status post pacemaker. [facility] Work Phone: 12-26-2024 Miscellaneous Notes Associated Problem(s): Diabetes mellitus, type 2 (Multi) Reduce SGL 2 to 10 mg once a day, plan to recheck blood test in 1 month, continue with metformin. Associated Problem(s): Chronic diastolic congestive heart failure Blood pressure stable, asymptomatic. Uses furosemide depending on weight changes, no active symptoms of PND orthopnea SmartLink not supported outside of the Encounter Diagnoses SmartSection. Associated Problem(s): Chronotropic incompetence Status post pacemaker. documented in this encounter [facility] Work Phone: 12-26-2024 History of Present illness Narrative Subjective Patient ID: Rocio Sandoval is a 79 y.o. male who presents for Dizziness (Dizziness, seen in ER on 12/17). HPI Patient was seen in the emergency room on December 17 for dizziness, this has been an ongoing issue since his pacemaker placement a couple months ago. Was found to have orthostatic hypotension in the emergency room. All other evaluation was normal Dizziness worse when getting up from a chair Drinks plenty of fluids Review of Systems Constitutional: Negative for activity change, appetite change and fatigue. Respiratory: Negative for cough, chest tightness and shortness of breath. Cardiovascular: Negative for chest pain, palpitations and leg swelling. Gastrointestinal: Negative for abdominal pain, constipation, diarrhea, nausea and vomiting. Neurological: Positive for dizziness. Objective BP 122/70 Pulse 68 Ht 1.88 m (6' 2) Wt 99 kg (218 lb 3.2 oz) SpO2 97% BMI 28.02 kg/m Physical Exam Vitals and nursing note reviewed. Constitutional: Appearance: Normal appearance. HENT: Head: Normocephalic and atraumatic. Right Ear: Tympanic membrane, ear canal and external ear normal. Left Ear: Tympanic membrane, ear canal and external ear normal. Nose: Nose normal. Mouth/Throat: Mouth: Mucous membranes are moist. Pharynx: Oropharynx is clear. Cardiovascular: Rate and Rhythm: Normal rate and regular rhythm. Pulses: Normal pulses. Heart sounds: Normal heart sounds. Pulmonary: Effort: Pulmonary effort is normal. Breath sounds: Normal breath sounds. Musculoskeletal: Cervical back: Normal range of motion and neck supple. Skin: General: Skin is warm and dry. Capillary Refill: Capillary refill takes less than 2 seconds. Neurological: Mental Status: He is alert. Psychiatric: Mood and Affect: Mood normal. Behavior: Behavior normal. Assessment/Plan Problem List Items Addressed This Visit ICD-10-CM Chronic diastolic congestive heart failure I50.32 Blood pressure stable, asymptomatic. Uses furosemide depending on weight changes, no active symptoms of PND orthopnea SmartLink not supported outside of the Encounter Diagnoses SmartSection. Relevant Medications empagliflozin (Jardiance) 10 mg tablet Other Relevant Orders Follow Up In Primary Care - Established Chronotropic incompetence - Primary I45.89 Status post pacemaker. Relevant Medications empagliflozin (Jardiance) 10 mg tablet Other Relevant Orders Follow Up In Primary Care - Established CBC and Auto Differential Diabetes mellitus, type 2 (Multi) E11.9 Reduce SGL 2 to 10 mg once a day, plan to recheck blood test in 1 month, continue with metformin. Relevant Medications Blood glucose monitoring meter blood sugar diagnostic (Blood Glucose Test) lancets misc empagliflozin (Jardiance) 10 mg tablet Other Relevant Orders Follow Up In Primary Care - Established Cholesterol, LDL Direct Comprehensive Metabolic Panel Hemoglobin A1C Other Visit Diagnoses Codes Orthostatic hypotension I95.1 Encouraged to increase fluids, try reducing Jardiance to 10 mg a day and discontinue tamsulosin. Follow-up with cardiology Relevant Orders Follow Up In Primary Care - Established documented in this encounter [facility] Work Phone: 12-26-2024 Instructions Tye Anne MD - 12/26/2024 3:00 PM EDT Stop tamsulosin and reduce Jardiance to 10 mg a day documented in this encounter [facility] Work Phone: 12-17-2024 Physician Emergency department Note Associated Order(s): ECG 12 lead HPI Chief Complaint Patient presents with Dizziness Pt reports dizziness x 6 weeks, worse the past couple days. Limitations to History: None HPI: 79-year-old male presents with dizziness. Described as feeling like he is going to fall over only when he is bending over. Patient also has been weak. States that approximately 2 months ago he had his pacemaker replaced and had a perforation in his esophagus which required surgery and a 1 month hospital stay. Was discharged 2 months ago. Was feeling well after he left rehab however over the past 6 weeks he has been feeling more weak. Denies any fever, chills, nausea, vomiting, chest pain, shortness of breath, abdominal pain, urinary symptoms. States he is eating well. Moving his bowels and urinating normally. Denies any fall or trauma. Additional History Obtained from: Family at the bedside. Physical Exam: VS: As documented in the triage note and EMR flowsheet from this visit were reviewed. Appearance: Alert. cooperative, in no acute distress. Skin: Intact, dry skin, no lesions, rash, petechiae or purpura. Eyes: PERRLA, EOMs intact, Conjunctiva pink with no redness or exudates. HENT: Normocephalic, atraumatic. Nares patent. No intraoral lesions. Neck: Supple, without meningismus. Trachea at midline. No lymphadenopathy. Pulmonary: Clear bilaterally with good chest wall excursion. No rales, rhonchi or wheezing. No accessory muscle use or stridor. Cardiac: Regular rate and rhythm, no rubs, murmurs, or gallops. Abdomen: Abdomen is soft, nontender, and nondistended. No palpable organomegaly. No rebound or guarding. No CVA tenderness. Nonsurgical abdomen. Genitourinary: Exam deferred. Musculoskeletal: Full range of motion. Pulses full and equal. No cyanosis, clubbing, or edema. Neurological: Cranial nerves are grossly intact, grossly normal sensation, no weakness, no focal findings identified. NIH of 0. Psychiatric: Appropriate mood and affect. Patient History Medical History[1] Surgical History[2] Family History[3] Social History[4] Physical Exam ED Triage Vitals [12/17/24 1304] Temperature Heart Rate Respirations BP 36.6 C (97.9 F) 83 16 (!) 128/92 Pulse Ox Temp Source Heart Rate Source Patient Position 96 % Temporal -- -- BP Location FiO2 (%) -- -- Physical Exam ED Course & MDM Diagnoses as of 12/17/24 1554 Orthostatic hypotension No data recorded Medical Decision Making Labs Reviewed CBC WITH AUTO DIFFERENTIAL - Abnormal WBC 9.0 nRBC 0.0 RBC 4.25 (*) Hemoglobin 13.6 Hematocrit 41.7 MCV 98 MCH 32.0 MCHC 32.6 RDW 13.1 Platelets 263 Neutrophils % 68.0 Immature Granulocytes %, Automated 0.1 Lymphocytes % 23.1 Monocytes % 6.2 Eosinophils % 2.2 Basophils % 0.4 Neutrophils Absolute 6.13 (*) Immature Granulocytes Absolute, Au* 0.01 Lymphocytes Absolute 2.09 Monocytes Absolute 0.56 Eosinophils Absolute 0.20 Basophils Absolute 0.04 COMPREHENSIVE METABOLIC PANEL - Abnormal Glucose 88 Sodium 140 Potassium 4.3 Chloride 106 Bicarbonate 25 Anion Gap 13 Urea Nitrogen 17 Creatinine 0.74 eGFR >90 Calcium 9.4 Albumin 4.0 Alkaline Phosphatase 63 Total Protein 6.3 (*) AST 15 Bilirubin, Total 0.6 ALT 12 PROTIME-INR - Abnormal Protime 14.0 (*) INR 1.3 (*) URINALYSIS WITH REFLEX CULTURE AND MICROSCOPIC - Abnormal Color, Urine Yellow Appearance, Urine Clear Specific Pierce, Urine 1.028 pH, Urine 6.0 Protein, Urine 20 (TRACE) Glucose, Urine OVER (4+) (*) Blood, Urine NEGATIVE Ketones, Urine NEGATIVE Bilirubin, Urine NEGATIVE Urobilinogen, Urine Normal Nitrite, Urine NEGATIVE Leukocyte Esterase, Urine NEGATIVE Narrative: OVER is reported when the result is greater than the clinically reportable range. MAGNESIUM - Normal Magnesium 2.30 TROPONIN I, HIGH SENSITIVITY - Normal Troponin I, High Sensitivity 6 Narrative: Less than 99th percentile of normal range cutoff- Female and children under 18 years old <14 ng/L; Male <21 ng/L: Negative Repeat testing should be performed if clinically indicated. Female and children under 18 years old 14-50 ng/L; Male 21-50 ng/L: Consistent with possible cardiac damage and possible increased clinical risk. Serial measurements may help to assess extent of myocardial damage. >50 ng/L: Consistent with cardiac damage, increased clinical risk and myocardial infarction. Serial measurements may help assess extent of myocardial damage. NOTE: Children less than 1 year old may have higher baseline troponin levels and results should be interpreted in conjunction with the overall clinical context. NOTE: Troponin I testing is performed using a different testing methodology at [facility] than at other [facility]. Direct result comparisons should only be made within the same method. APTT - Normal aPTT 34 Narrative: The APTT is no longer used for monitoring Unfractionated Heparin Therapy. For monitoring Heparin Therapy, use the Heparin Assay. URINALYSIS MICROSCOPIC WITH REFLEX CULTURE - Normal WBC, Urine NONE RBC, Urine 1-2 URINALYSIS WITH REFLEX CULTURE AND MICROSCOPIC Narrative: The following orders were created for panel order Urinalysis with Reflex Culture and Microscopic. Procedure Abnormality Status --------- ------ Urinalysis with Reflex C...[[id number]] Abnormal Final result Extra Urine Llanos Tube[[id number]] In process Please view results for these tests on the individual orders. EXTRA URINE LLANOS TUBE CT head wo IV contrast Final Result No acute intracranial process. Signed by: Ludin Nguyen 12/17/2024 2:09 PM Dictation workstation: [id number] XR chest 1 view Final Result Limited study. Previously seen esophageal stent is not visualized, however there is probable dilatation of the distal esophagus; correlate clinically. Cardiomegaly again present without acute infiltrates. Signed by: Ludin Nguyen 12/17/2024 2:07 PM Dictation workstation: [id number] Medical Decision Making: Patient appears well nontoxic. NIH of 0. No focal neurologic deficit. Lab work unremarkable. CT brain and chest x-ray clear. EKG nonischemic with negative troponin. Orthostatic positive. Treated with 1 L normal saline. Orthostatic negative following. Feels much improved. Advised on hydrating orally at home. Advised on follow-up with primary care and asked to return for new or worsening symptoms. Stable at time of discharge. Differential Diagnoses Considered: Electrolyte abnormality, volume depletion, orthostasis, CVA Independent Interpretation of Studies: I independently interpreted: CT brain shows no intracranial hemorrhage or mass. Chest x-ray without pneumonia or pneumothorax. Escalation of Care: Appropriate for charge and follow-up with primary care. Procedure ECG 12 lead Performed by: Sammy Andrew DO Authorized by: Sammy Andrew DO ECG interpreted by ED Physician in the absence of a artist blacksmith: yes Comments: EKG interpreted by Dr. Sammy Andrew: Ventricular paced rhythm at 82 bpm. QTc of 530 ms. [1] Past Medical History: Diagnosis Date Benign prostatic hyperplasia without lower urinary tract symptoms 07/08/2021 BPH (benign prostatic hyperplasia) Calculus of kidney 12/30/2019 Bilateral renal stones Carpal tunnel syndrome, right upper limb 12/31/2019 Carpal tunnel syndrome of right wrist Cough 10/06/2022 Depression, unspecified 01/05/2022 Depression Disorder of arteries and arterioles, unspecified 01/05/2022 Peripheral arterial occlusive disease Dizziness 10/06/2022 Essential (primary) hypertension 06/29/2022 Hypertension, essential, benign Gastro-esophageal reflux disease without esophagitis 01/05/2022 GERD (gastroesophageal reflux disease) Hyperlipidemia, unspecified 01/05/2022 Hyperlipemia Influenza A 10/06/2022 Male erectile dysfunction, unspecified 09/03/2019 Erectile dysfunction Obesity, unspecified 08/16/2020 Obesity (BMI 30-39.9) Obstructive sleep apnea (adult) (pediatric) 01/05/2022 ALISHA on CPAP Personal history of diseases of the skin and subcutaneous tissue History of actinic keratosis Personal history of other infectious and parasitic diseases History of onychomycosis Personal history of other infectious and parasitic diseases History of tinea pedis Plantar fascial fibromatosis Plantar fasciitis Polyosteoarthritis, unspecified 09/23/2019 Generalized osteoarthritis of multiple sites Rash of genitalia 10/06/2022 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s 01/05/2022 Type II 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 Venous insufficiency (chronic) (peripheral) Venous insufficiency of leg [2] Past Surgical History: Procedure Laterality Date CARDIAC ELECTROPHYSIOLOGY PROCEDURE N/A 08/13/2024 Procedure: dcPPM upgrade to PROPERTY CLAIM REP-P; Surgeon: Aravind Jimenez MD; Location: [facility] Cardiac Second Vp Hr Assessment; Service: Electrophysiology; Laterality: N/A; Medtronic CARDIAC ELECTROPHYSIOLOGY PROCEDURE N/A 09/26/2024 Procedure: PPM Lead Extraction, dcPPM Upgrade to PROPERTY CLAIM REP-P, Medtronic, Subclavian is occluded plan for RA extraction; Surgeon: Aravind Jimenez MD; Location: [address] Cardiac Second Vp Hr Assessment; Service: Electrophysiology; Laterality: N/A; CARDIAC PACEMAKER PLACEMENT 06/2022 INJECTION Left 05/28/2024 Lt L5/S1-S1 TFEIS INJECTION Left 09/12/2024 Lt L4/5 TFESI LUMBAR EPIDURAL INJECTION Bilateral 12/07/2023 Bilat L4/5 TFESI OTHER SURGICAL HISTORY 06/18/2019 Lumbar vertebral fusion OTHER SURGICAL HISTORY 06/18/2019 Retinal detachment repair OTHER SURGICAL HISTORY 06/18/2019 Phacoemulsification of cataract and insertion of intraocular lens OTHER SURGICAL HISTORY 06/18/2019 Circumcision OTHER SURGICAL HISTORY 06/18/2019 Knee replacement OTHER SURGICAL HISTORY 06/18/2019 Sigmoidoscopy flexible OTHER SURGICAL HISTORY 06/18/2019 Dermatological cryotherapy OTHER SURGICAL HISTORY 06/18/2019 Esophagogastroduodenoscopy OTHER SURGICAL HISTORY 06/18/2019 Nail debridement OTHER SURGICAL HISTORY 06/18/2019 Epidural space injection OTHER SURGICAL HISTORY 07/07/2020 Colonoscopy OTHER SURGICAL HISTORY 01/05/2022 Catheter ablation OTHER SURGICAL HISTORY 08/16/2020 Cardiac catheterization OTHER SURGICAL HISTORY 05/11/2020 Inguinal hernia repair PACEMAKER PLACEMENT [3] Family History Problem Relation Name Age of Onset Other (CVA) Mother Diabetes type II Father Diabetes type II Sister Heart attack Brother Coronary artery disease Brother Kidney failure Brother Diabetes type II Brother [4] Social History Tobacco Use Smoking status: Never Passive exposure: Never Smokeless tobacco: Never Vaping Use Vaping status: Never Used Substance Use Topics Alcohol use: Never Drug use: Never Sammy Andrew DO 12/17/24 1557 [facility] Work Phone: 12-17-2024 Emergency department Note Associated Order(s): ECG 12 lead HPI Chief Complaint Patient presents with Dizziness Pt reports dizziness x 6 weeks, worse the past couple days. Limitations to History: None HPI: 79-year-old male presents with dizziness. Described as feeling like he is going to fall over only when he is bending over. Patient also has been weak. States that approximately 2 months ago he had his pacemaker replaced and had a perforation in his esophagus which required surgery and a 1 month hospital stay. Was discharged 2 months ago. Was feeling well after he left rehab however over the past 6 weeks he has been feeling more weak. Denies any fever, chills, nausea, vomiting, chest pain, shortness of breath, abdominal pain, urinary symptoms. States he is eating well. Moving his bowels and urinating normally. Denies any fall or trauma. Additional History Obtained from: Family at the bedside. Physical Exam: VS: As documented in the triage note and EMR flowsheet from this visit were reviewed. Appearance: Alert. cooperative, in no acute distress. Skin: Intact, dry skin, no lesions, rash, petechiae or purpura. Eyes: PERRLA, EOMs intact, Conjunctiva pink with no redness or exudates. HENT: Normocephalic, atraumatic. Nares patent. No intraoral lesions. Neck: Supple, without meningismus. Trachea at midline. No lymphadenopathy. Pulmonary: Clear bilaterally with good chest wall excursion. No rales, rhonchi or wheezing. No accessory muscle use or stridor. Cardiac: Regular rate and rhythm, no rubs, murmurs, or gallops. Abdomen: Abdomen is soft, nontender, and nondistended. No palpable organomegaly. No rebound or guarding. No CVA tenderness. Nonsurgical abdomen. Genitourinary: Exam deferred. Musculoskeletal: Full range of motion. Pulses full and equal. No cyanosis, clubbing, or edema. Neurological: Cranial nerves are grossly intact, grossly normal sensation, no weakness, no focal findings identified. NIH of 0. Psychiatric: Appropriate mood and affect. Patient History Medical History[1] Surgical History[2] Family History[3] Social History[4] Physical Exam ED Triage Vitals [12/17/24 1304] Temperature Heart Rate Respirations BP 36.6 C (97.9 F) 83 16 (!) 128/92 Pulse Ox Temp Source Heart Rate Source Patient Position 96 % Temporal -- -- BP Location FiO2 (%) -- -- Physical Exam ED Course & MDM Diagnoses as of 12/17/24 1554 Orthostatic hypotension No data recorded Medical Decision Making Labs Reviewed CBC WITH AUTO DIFFERENTIAL - Abnormal WBC 9.0 nRBC 0.0 RBC 4.25 (*) Hemoglobin 13.6 Hematocrit 41.7 MCV 98 MCH 32.0 MCHC 32.6 RDW 13.1 Platelets 263 Neutrophils % 68.0 Immature Granulocytes %, Automated 0.1 Lymphocytes % 23.1 Monocytes % 6.2 Eosinophils % 2.2 Basophils % 0.4 Neutrophils Absolute 6.13 (*) Immature Granulocytes Absolute, Au* 0.01 Lymphocytes Absolute 2.09 Monocytes Absolute 0.56 Eosinophils Absolute 0.20 Basophils Absolute 0.04 COMPREHENSIVE METABOLIC PANEL - Abnormal Glucose 88 Sodium 140 Potassium 4.3 Chloride 106 Bicarbonate 25 Anion Gap 13 Urea Nitrogen 17 Creatinine 0.74 eGFR >90 Calcium 9.4 Albumin 4.0 Alkaline Phosphatase 63 Total Protein 6.3 (*) AST 15 Bilirubin, Total 0.6 ALT 12 PROTIME-INR - Abnormal Protime 14.0 (*) INR 1.3 (*) URINALYSIS WITH REFLEX CULTURE AND MICROSCOPIC - Abnormal Color, Urine Yellow Appearance, Urine Clear Specific Pierce, Urine 1.028 pH, Urine 6.0 Protein, Urine 20 (TRACE) Glucose, Urine OVER (4+) (*) Blood, Urine NEGATIVE Ketones, Urine NEGATIVE Bilirubin, Urine NEGATIVE Urobilinogen, Urine Normal Nitrite, Urine NEGATIVE Leukocyte Esterase, Urine NEGATIVE Narrative: OVER is reported when the result is greater than the clinically reportable range. MAGNESIUM - Normal Magnesium 2.30 TROPONIN I, HIGH SENSITIVITY - Normal Troponin I, High Sensitivity 6 Narrative: Less than 99th percentile of normal range cutoff- Female and children under 18 years old <14 ng/L; Male <21 ng/L: Negative Repeat testing should be performed if clinically indicated. Female and children under 18 years old 14-50 ng/L; Male 21-50 ng/L: Consistent with possible cardiac damage and possible increased clinical risk. Serial measurements may help to assess extent of myocardial damage. >50 ng/L: Consistent with cardiac damage, increased clinical risk and myocardial infarction. Serial measurements may help assess extent of myocardial damage. NOTE: Children less than 1 year old may have higher baseline troponin levels and results should be interpreted in conjunction with the overall clinical context. NOTE: Troponin I testing is performed using a different testing methodology at [facility] than at other [facility]. Direct result comparisons should only be made within the same method. APTT - Normal aPTT 34 Narrative: The APTT is no longer used for monitoring Unfractionated Heparin Therapy. For monitoring Heparin Therapy, use the Heparin Assay. URINALYSIS MICROSCOPIC WITH REFLEX CULTURE - Normal WBC, Urine NONE RBC, Urine 1-2 URINALYSIS WITH REFLEX CULTURE AND MICROSCOPIC Narrative: The following orders were created for panel order Urinalysis with Reflex Culture and Microscopic. Procedure Abnormality Status --------- ------ Urinalysis with Reflex C...[[id number]] Abnormal Final result Extra Urine Llanos Tube[[id number]] In process Please view results for these tests on the individual orders. EXTRA URINE LLANOS TUBE CT head wo IV contrast Final Result No acute intracranial process. Signed by: Ludin Nguyen 12/17/2024 2:09 PM Dictation workstation: [id number] XR chest 1 view Final Result Limited study. Previously seen esophageal stent is not visualized, however there is probable dilatation of the distal esophagus; correlate clinically. Cardiomegaly again present without acute infiltrates. Signed by: Ludin Nguyen 12/17/2024 2:07 PM Dictation workstation: [id number] Medical Decision Making: Patient appears well nontoxic. NIH of 0. No focal neurologic deficit. Lab work unremarkable. CT brain and chest x-ray clear. EKG nonischemic with negative troponin. Orthostatic positive. Treated with 1 L normal saline. Orthostatic negative following. Feels much improved. Advised on hydrating orally at home. Advised on follow-up with primary care and asked to return for new or worsening symptoms. Stable at time of discharge. Differential Diagnoses Considered: Electrolyte abnormality, volume depletion, orthostasis, CVA Independent Interpretation of Studies: I independently interpreted: CT brain shows no intracranial hemorrhage or mass. Chest x-ray without pneumonia or pneumothorax. Escalation of Care: Appropriate for charge and follow-up with primary care. Procedure ECG 12 lead Performed by: Sammy Andrew DO Authorized by: Sammy Andrew DO ECG interpreted by ED Physician in the absence of a artist blacksmith: yes Comments: EKG interpreted by Dr. Sammy Andrew: Ventricular paced rhythm at 82 bpm. QTc of 530 ms. [1] Past Medical History: Diagnosis Date Benign prostatic hyperplasia without lower urinary tract symptoms 07/08/2021 BPH (benign prostatic hyperplasia) Calculus of kidney 12/30/2019 Bilateral renal stones Carpal tunnel syndrome, right upper limb 12/31/2019 Carpal tunnel syndrome of right wrist Cough 10/06/2022 Depression, unspecified 01/05/2022 Depression Disorder of arteries and arterioles, unspecified 01/05/2022 Peripheral arterial occlusive disease Dizziness 10/06/2022 Essential (primary) hypertension 06/29/2022 Hypertension, essential, benign Gastro-esophageal reflux disease without esophagitis 01/05/2022 GERD (gastroesophageal reflux disease) Hyperlipidemia, unspecified 01/05/2022 Hyperlipemia Influenza A 10/06/2022 Male erectile dysfunction, unspecified 09/03/2019 Erectile dysfunction Obesity, unspecified 08/16/2020 Obesity (BMI 30-39.9) Obstructive sleep apnea (adult) (pediatric) 01/05/2022 ALISHA on CPAP Personal history of diseases of the skin and subcutaneous tissue History of actinic keratosis Personal history of other infectious and parasitic diseases History of onychomycosis Personal history of other infectious and parasitic diseases History of tinea pedis Plantar fascial fibromatosis Plantar fasciitis Polyosteoarthritis, unspecified 09/23/2019 Generalized osteoarthritis of multiple sites Rash of genitalia 10/06/2022 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s 01/05/2022 Type II 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 Venous insufficiency (chronic) (peripheral) Venous insufficiency of leg [2] Past Surgical History: Procedure Laterality Date CARDIAC ELECTROPHYSIOLOGY PROCEDURE N/A 08/13/2024 Procedure: dcPPM upgrade to PROPERTY CLAIM REP-P; Surgeon: Aravind Jimenez MD; Location: [facility] Cardiac Second Vp Hr Assessment; Service: Electrophysiology; Laterality: N/A; [employer] CARDIAC ELECTROPHYSIOLOGY PROCEDURE N/A 09/26/2024 Procedure: PPM Lead Extraction, dcPPM Upgrade to PROPERTY CLAIM REP-P, [employer], Subclavian is occluded plan for RA extraction; Surgeon: Aravind Jimenez MD; Location: [address] Cardiac Second Vp Hr Assessment; Service: Electrophysiology; Laterality: N/A; CARDIAC PACEMAKER PLACEMENT 06/2022 INJECTION Left 05/28/2024 Lt L5/S1-S1 TFEIS INJECTION Left 09/12/2024 Lt L4/5 TFESI LUMBAR EPIDURAL INJECTION Bilateral 12/07/2023 Bilat L4/5 TFESI OTHER SURGICAL HISTORY 06/18/2019 Lumbar vertebral fusion OTHER SURGICAL HISTORY 06/18/2019 Retinal detachment repair OTHER SURGICAL HISTORY 06/18/2019 Phacoemulsification of cataract and insertion of intraocular lens OTHER SURGICAL HISTORY 06/18/2019 Circumcision OTHER SURGICAL HISTORY 06/18/2019 Knee replacement OTHER SURGICAL HISTORY 06/18/2019 Sigmoidoscopy flexible OTHER SURGICAL HISTORY 06/18/2019 Dermatological cryotherapy OTHER SURGICAL HISTORY 06/18/2019 Esophagogastroduodenoscopy OTHER SURGICAL HISTORY 06/18/2019 Nail debridement OTHER SURGICAL HISTORY 06/18/2019 Epidural space injection OTHER SURGICAL HISTORY 07/07/2020 Colonoscopy OTHER SURGICAL HISTORY 01/05/2022 Catheter ablation OTHER SURGICAL HISTORY 08/16/2020 Cardiac catheterization OTHER SURGICAL HISTORY 05/11/2020 Inguinal hernia repair PACEMAKER PLACEMENT [3] Family History Problem Relation Name Age of Onset Other (CVA) Mother Diabetes type II Father Diabetes type II Sister Heart attack Brother Coronary artery disease Brother Kidney failure Brother Diabetes type II Brother [4] Social History Tobacco Use Smoking status: Never Passive exposure: Never Smokeless tobacco: Never Vaping Use Vaping status: Never Used Substance Use Topics Alcohol use: Never Drug use: Never Sammy Andrew DO 12/17/24 1556 documented in this encounter [facility] Work Phone: 12-17-2024 History of Present illness Narrative [facility] MARK NOTE: Name: Rocio Sandoval, 79 y.o. CSN:[id number] PCP: Tye Anne MD ALL: Allergies[1] History: Chief Complaint: Dizziness Encounter Date: 12/17/2024 HPI: The history was obtained from the patient. Rocio is a 79 y.o. male, who presents with a chief complaint of Dizziness. History of persistent atrial fibrillation s/p biventricular pacer. Reports new onset dizziness with presyncope over the last week, aggravated by squatting and bending over. Denies associated symptoms of vertigo, syncope, loss of consciousness. No new chest pains or palpitations. PMHx: Medical History[2] Current Medications[3] PMSx: Surgical History[4] Fam Hx: Family History[5] SOC. Hx: Social History Socioeconomic History Marital status: Spouse name: Not on file Number of children: Not on file Years of education: Not on file Highest education level: Not on file Occupational History Not on file Tobacco Use Smoking status: Never Passive exposure: Never Smokeless tobacco: Never Vaping Use Vaping status: Never Used Substance and Sexual Activity Alcohol use: Never Drug use: Never Sexual activity: Defer Other Topics Concern Not on file Social History Narrative Not on file Social Drivers of Health Financial Resource Strain: Low Risk (09/29/2024) Overall Financial Resource Strain (CARDIA) Difficulty of Paying Living Expenses: Not very hard Food Insecurity: No Food Insecurity (09/29/2024) Hunger Vital Sign Worried About Running Out of Food in the Last Year: Never true Ran Out of Food in the Last Year: Never true Transportation Needs: No Transportation Needs (09/29/2024) PRAPARE - Transportation Lack of Transportation (Medical): No Lack of Transportation (Non-Medical): No Physical Activity: Not on file Stress: Not on file Social Connections: Unknown (09/29/2024) Social Connection and Isolation Panel [NHANES] Frequency of Communication with Friends and Family: Not on file Frequency of Social Gatherings with Friends and Family: Not on file Attends Latter Day Services: Not on file Active Member of Clubs or Organizations: Not on file Attends Club or Organization Meetings: Not on file Marital Status: Living with partner Intimate Partner Violence: Not At Risk (09/29/2024) Humiliation, Afraid, Rape, and Kick questionnaire Fear of Current or Ex-Partner: No Emotionally Abused: No Physically Abused: No Sexually Abused: No Housing Stability: Low Risk (09/29/2024) Housing Stability Vital Sign Unable to Pay for Housing in the Last Year: No Number of Times Moved in the Last Year: 0 Homeless in the Last Year: No Vitals: 12/17/24 1153 BP: 116/72 Pulse: 84 Temp: 35.7 C (96.3 F) SpO2: 97% 94.8 kg (209 lb) Physical Exam Vitals reviewed. Constitutional: Appearance: Normal appearance. HENT: Head: Normocephalic and atraumatic. Neck: Vascular: Decreased carotid pulses. Cardiovascular: Rate and Rhythm: Normal rate. Rhythm irregular. Pulses: Carotid pulses are 1+ on the right side and 1+ on the left side. Dorsalis pedis pulses are 1+ on the right side and 1+ on the left side. Posterior tibial pulses are 2+ on the right side and 2+ on the left side. Heart sounds: S1 normal and S2 normal. Murmur heard. Systolic murmur is present with a grade of 2/6. Pulmonary: Effort: Pulmonary effort is normal. Breath sounds: Normal breath sounds. Abdominal: General: Abdomen is flat. Bowel sounds are normal. Palpations: Abdomen is soft. Musculoskeletal: General: Normal range of motion. Right lower le+ Pitting Edema present. Left lower le+ Pitting Edema present. Skin: General: Skin is warm and dry. Capillary Refill: Capillary refill takes less than 2 seconds. Neurological: Mental Status: He is alert. Mental status is at baseline. Psychiatric: Mood and Affect: Mood normal. Behavior: Behavior normal. I did personally review Rocio's past medical history, surgical history, social history, as well as family history (when relevant). In this case, I also oversaw the his drug management by reviewing his medication list, allergy list, as well as the medications that I prescribed during the UC course and/or recommended as an out-patient (including possible OTC medications such as acetaminophen, NSAIDs , etc). After reviewing the items above, I did look at previous medical documentation, such as recent hospitalizations, office visits, and/or recent consultations with PCP/specialist. SDOH: Another factor that I considered in Rocio's care was his Social Determinants of Health (SDOH). During this UC encounter, he did not have social determinants of health. Those SDOH influencing Rocio's care are: none UC COURSE/MEDICAL DECISION MAKING: Rocio is a 79 y.o., who presents with a working diagnosis of No diagnosis found. with a differential to include: BPPV, vasovagal, postural hypotension, carotid stenosis, aortic stenosis, pacer failure Plan: Although symptoms could be suggestive of benign etiology, his recent history (1 month ago) of complicated pacer replacement/laser-lead extraction and extensive heart history, would recommend more thorough evaluation/management in emergency department to investigate potential deleterious causes. Return to urgent care, primary care provider, or emergency department with worsening symptoms. I, Kailey Haines, helped prepare the medical record for my supervising clinician, Urmila Galloway DNP. Kailey Haines RN, [facility] Supervised by Urmila Galloway DNP Advanced Practice Provider [facility] I was present with the RECORDS MANAGEMENT CLERK student who participated in the documentation of this note. I have personally seen and re-examined the patient and performed the medical decision-making components (assessment and plan of care). I have reviewed the RECORDS MANAGEMENT CLERK student documentation and verified the findings in the note as written with additions or exceptions as stated in the body of this note. [1] No Known Allergies [2] Past Medical History: Diagnosis Date Benign prostatic hyperplasia without lower urinary tract symptoms 07/08/2021 BPH (benign prostatic hyperplasia) Calculus of kidney 12/30/2019 Bilateral renal stones Carpal tunnel syndrome, right upper limb 12/31/2019 Carpal tunnel syndrome of right wrist Cough 10/06/2022 Depression, unspecified 01/05/2022 Depression Disorder of arteries and arterioles, unspecified 01/05/2022 Peripheral arterial occlusive disease Dizziness 10/06/2022 Essential (primary) hypertension 06/29/2022 Hypertension, essential, benign Gastro-esophageal reflux disease without esophagitis 01/05/2022 GERD (gastroesophageal reflux disease) Hyperlipidemia, unspecified 01/05/2022 Hyperlipemia Influenza A 10/06/2022 Male erectile dysfunction, unspecified 09/03/2019 Erectile dysfunction Obesity, unspecified 08/16/2020 Obesity (BMI 30-39.9) Obstructive sleep apnea (adult) (pediatric) 01/05/2022 ALISHA on CPAP Personal history of diseases of the skin and subcutaneous tissue History of actinic keratosis Personal history of other infectious and parasitic diseases History of onychomycosis Personal history of other infectious and parasitic diseases History of tinea pedis Plantar fascial fibromatosis Plantar fasciitis Polyosteoarthritis, unspecified 09/23/2019 Generalized osteoarthritis of multiple sites Rash of genitalia 10/06/2022 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s 01/05/2022 Type II 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 Venous insufficiency (chronic) (peripheral) Venous insufficiency of leg [3] Current Outpatient Medications Medication Sig Dispense Refill acetaminophen (Tylenol) 160 mg/5 mL (5 mL) suspension 20.5 mL (650 mg) by j-tube route every 4 hours if needed for mild pain (1 - 3). atorvastatin (Lipitor) 40 mg tablet Take 1 tablet (40 mg) by mouth once daily. 90 tablet 3 empagliflozin (Jardiance) 25 mg tablet Take 1 tablet (25 mg) by mouth once daily. fexofenadine (Sulaiman) 180 mg tablet Take 1 tablet (180 mg) by mouth once daily. furosemide (Lasix) 20 mg tablet Take 1 tablet (20 mg) by mouth once daily as needed (for swelling to lower legs). 90 tablet 3 gabapentin (Neurontin) 800 mg tablet Take 1 tablet (800 mg) by mouth once daily at bedtime. 90 tablet 1 melatonin 5 mg tablet,disintegrating Dissolve 5 mg in the mouth once daily at bedtime. metFORMIN XR (Glucophage-XR) 750 mg 24 hr tablet Take 1 tablet (750 mg) by mouth 2 times a day. Do not crush, chew, or split. multivitamin tablet Take 1 tablet by mouth once daily. rivaroxaban (Xarelto) 20 mg tablet Take 1 tablet (20 mg) by g-tube once daily in the evening. Take with meals. Take with food. Administer via jejunostomy tube please sodium chloride (Blue Grass) 0.65 % nasal spray Administer 1 spray into each nostril if needed for congestion. tamsulosin (Flomax) 0.4 mg 24 hr capsule Take 1 capsule (0.4 mg) by mouth once daily. Do not crush, chew, or split. vit C/E/Zn/coppr/lutein/zeaxan (PRESERVISION AREDS-2 ORAL) Take by mouth. metoprolol succinate XL (Toprol-XL) 25 mg 24 hr tablet Take 0.5 tablets (12.5 mg) by mouth once daily. (Patient not taking: Reported on 12/17/2024) 45 tablet 3 pantoprazole (ProtoNix) 40 mg EC tablet Take 1 tablet (40 mg) by mouth once daily in the morning. Take before meals. (Patient not taking: Reported on 12/17/2024) 90 tablet 3 No current facility-administered medications for this visit. [4] Past Surgical History: Procedure Laterality Date CARDIAC ELECTROPHYSIOLOGY PROCEDURE N/A 08/13/2024 Procedure: dcPPM upgrade to PROPERTY CLAIM REP-P; Surgeon: Aravind Jimenez MD; Location: [facility] Cardiac Second Vp Hr Assessment; Service: Electrophysiology; Laterality: N/A; [employer] CARDIAC ELECTROPHYSIOLOGY PROCEDURE N/A 09/26/2024 Procedure: PPM Lead Extraction, dcPPM Upgrade to PROPERTY CLAIM REP-P, [employer], Subclavian is occluded plan for RA extraction; Surgeon: Aravind Jimenez MD; Location: [address] Cardiac Second Vp Hr Assessment; Service: Electrophysiology; Laterality: N/A; CARDIAC PACEMAKER PLACEMENT 06/2022 INJECTION Left 05/28/2024 Lt L5/S1-S1 TFEIS INJECTION Left 09/12/2024 Lt L4/5 TFESI LUMBAR EPIDURAL INJECTION Bilateral 12/07/2023 Bilat L4/5 TFESI OTHER SURGICAL HISTORY 06/18/2019 Lumbar vertebral fusion OTHER SURGICAL HISTORY 06/18/2019 Retinal detachment repair OTHER SURGICAL HISTORY 06/18/2019 Phacoemulsification of cataract and insertion of intraocular lens OTHER SURGICAL HISTORY 06/18/2019 Circumcision OTHER SURGICAL HISTORY 06/18/2019 Knee replacement OTHER SURGICAL HISTORY 06/18/2019 Sigmoidoscopy flexible OTHER SURGICAL HISTORY 06/18/2019 Dermatological cryotherapy OTHER SURGICAL HISTORY 06/18/2019 Esophagogastroduodenoscopy OTHER SURGICAL HISTORY 06/18/2019 Nail debridement OTHER SURGICAL HISTORY 06/18/2019 Epidural space injection OTHER SURGICAL HISTORY 07/07/2020 Colonoscopy OTHER SURGICAL HISTORY 01/05/2022 Catheter ablation OTHER SURGICAL HISTORY 08/16/2020 Cardiac catheterization OTHER SURGICAL HISTORY 05/11/2020 Inguinal hernia repair PACEMAKER PLACEMENT [5] Family History Problem Relation Name Age of Onset Other (CVA) Mother Diabetes type II Father Diabetes type II Sister Heart attack Brother Coronary artery disease Brother Kidney failure Brother Diabetes type II Brother documented in this encounter [facility] Work Phone: 12-03-2024 Note Nail care Patient is a pleasant 79 year-old male who comes in today for diabetic nail care. His diabetes is managed by primary care including Dr. Kin Anne. Hemoglobin A1c is 7.5% with some tingling burning and loss of sensation. Physical Vascular: DP pulses are palpable 2 out of 4. PT pulses are nonpalpable bilaterally. CFT is fair with mild edema. Compression socks are helping. Feet are warm to cool proximal to distal. Hair growth absent to the lower extremity and skin is shiny atrophic dysvascular. Nails one left and one right are elongated thickened mycotic crumbling and dystrophic. Nails left foot 2345 and right foot 2345 are elongated and thickened and mycotic. Neuro: Sharp dull is blunted Babinski's is fair. Musculoskeletal: Muscle strength is 5/5 with fair tone, can easily wiggle toes without any clicking or catching. L Assessment and plan: Patient is a pleasant 79-year-old male, diabetes with peripheral arterial disease, onychomycosis to two nails and onychodystrophy to eight nails. -He does qualify for nail care given his peripheral arterial disease and risk. Procedure: Nails left foot one 2345 bilaterally were sharply debrided and debulk in height and length with a sharp pair of nail nippers consistent with a q8 modifier. Follow-up in 3 months for foot nail care. AUTHENTICATED BY CHINTAN MALDONADO JR., ON 12/03/2024 08:39:23 [facility] 12-03-2024 History of Present illness Narrative Nail care Patient is a pleasant 79 year-old male who comes in today for diabetic nail care. His diabetes is managed by primary care including Dr. Kin Anne. Hemoglobin A1c is 7.5% with some tingling burning and loss of sensation. Physical Vascular: DP pulses are palpable 2 out of 4. PT pulses are nonpalpable bilaterally. CFT is fair with mild edema. Compression socks are helping. Feet are warm to cool proximal to distal. Hair growth absent to the lower extremity and skin is shiny atrophic dysvascular. Nails one left and one right are elongated thickened mycotic crumbling and dystrophic. Nails left foot 2345 and right foot 2345 are elongated and thickened and mycotic. Neuro: Sharp dull is blunted Babinski's is fair. Musculoskeletal: Muscle strength is 5/5 with fair tone, can easily wiggle toes without any clicking or catching. L Assessment and plan: Patient is a pleasant 79-year-old male, diabetes with peripheral arterial disease, onychomycosis to two nails and onychodystrophy to eight nails. -He does qualify for nail care given his peripheral arterial disease and risk. Procedure: Nails left foot one 2345 bilaterally were sharply debrided and debulk in height and length with a sharp pair of nail nippers consistent with a q8 modifier. Follow-up in 3 months for foot nail care. documented in this encounter [facility] 11-25-2024 History of Present illness Narrative Images from the original note were not included. [facility] MARK NOTE: Name: Rocio Sandoval, 79 y.o. CSN:[id number] ALL: Allergies[1] Chief Complaint: Penis Pain (Penile pain pain and swelling on the back of head of penis x 3 days) Encounter Date: 11/25/2024 HPI: The history was obtained from the patient. Rocio is a 79 y.o. male, who presents with a chief complaint of sore to the head of the penis that began 3 days ago with mild rash and swelling. Denies any risk for sexually transmitted diseases. Reports having this rash 1 time prior which was treated with an ointment by Dr. Troncoso. Unknown treatment protocol. Denies any fevers, chills, body aches, penile drainage. PMHx: Medical History[2] Current Medications[3] PMSx: Surgical History[4] Fam Hx: Family History[5] SOC. Hx: Social History Socioeconomic History Marital status: Spouse name: Not on file Number of children: Not on file Years of education: Not on file Highest education level: Not on file Occupational History Not on file Tobacco Use Smoking status: Never Passive exposure: Never Smokeless tobacco: Never Vaping Use Vaping status: Never Used Substance and Sexual Activity Alcohol use: Never Drug use: Never Sexual activity: Defer Other Topics Concern Not on file Social History Narrative Not on file Social Drivers of Health Financial Resource Strain: Low Risk (09/29/2024) Overall Financial Resource Strain (CARDIA) Difficulty of Paying Living Expenses: Not very hard Food Insecurity: No Food Insecurity (09/29/2024) Hunger Vital Sign Worried About Running Out of Food in the Last Year: Never true Ran Out of Food in the Last Year: Never true Transportation Needs: No Transportation Needs (09/29/2024) PRAPARE - Transportation Lack of Transportation (Medical): No Lack of Transportation (Non-Medical): No Physical Activity: Not on file Stress: Not on file Social Connections: Unknown (09/29/2024) Social Connection and Isolation Panel [NHANES] Frequency of Communication with Friends and Family: Not on file Frequency of Social Gatherings with Friends and Family: Not on file Attends Latter Day Services: Not on file Active Member of Clubs or Organizations: Not on file Attends Club or Organization Meetings: Not on file Marital Status: Living with partner Intimate Partner Violence: Not At Risk (09/29/2024) Humiliation, Afraid, Rape, and Kick questionnaire Fear of Current or Ex-Partner: No Emotionally Abused: No Physically Abused: No Sexually Abused: No Housing Stability: Low Risk (09/29/2024) Housing Stability Vital Sign Unable to Pay for Housing in the Last Year: No Number of Times Moved in the Last Year: 0 Homeless in the Last Year: No Vitals: 11/25/24 1330 BP: 128/74 Pulse: 79 Resp: 16 Temp: 36.6 C (97.9 F) SpO2: 96% 104 kg (230 lb) Physical Exam Vitals and nursing note reviewed. Exam conducted with a rn registry present. Constitutional: General: He is not in acute distress. Appearance: Normal appearance. He is not ill-appearing. HENT: Head: Normocephalic and atraumatic. Mouth/Throat: Mouth: Mucous membranes are moist. Cardiovascular: Rate and Rhythm: Normal rate and regular rhythm. Heart sounds: Normal heart sounds. Pulmonary: Effort: Pulmonary effort is normal. Breath sounds: Normal breath sounds. Abdominal: General: Bowel sounds are normal. Genitourinary: Penis: Circumcised. Erythema, tenderness and swelling present. No discharge. Comments: Red raised rash with 2 open ulcers, mild swelling without discharge Skin: General: Skin is warm and dry. Capillary Refill: Capillary refill takes less than 2 seconds. Neurological: Mental Status: He is alert and oriented to person, place, and time. I did personally review Rocio's past medical history, surgical history, social history, as well as family history (when relevant). In this case, I also oversaw the his drug management by reviewing his medication list, allergy list, as well as the medications that I prescribed during the UC course and/or recommended as an out-patient (including possible OTC medications such as acetaminophen, NSAIDs , etc). After reviewing the items above, I did look at previous medical documentation, such as recent hospitalizations, office visits, and/or recent consultations with PCP/specialist. SDOH: Another factor that I considered in Rocio's care was his Social Determinants of Health (SDOH). During this UC encounter, he did not have social determinants of health. Those SDOH influencing Rocio's care are: none UC COURSE/MEDICAL DECISION MAKING: Rocio is a 79 y.o., who presents with a working diagnosis of 1. Tinea cruris Plan of Care: 1) Lotrisone ointment twice daily for 14 days 2) cleanse with soap and water twice daily and apply ointment, monitor skin closely for worsening symptoms 3) Return to urgent care, primary care provider, or emergency department with worsening symptoms No red flags on exam. Plan of care reviewed with patient, agreeable to discharge Katelyn Galloway DNP Advanced Practice Provider [facility] Please note: While the patient may or may not have received printed discharge paperwork, all relevant medical findings, test results, and treatment details are accessible through the electronic medical record system. The patient is encouraged to review their chart via the patient portal for comprehensive information and follow-up instructions. [1] No Known Allergies [2] Past Medical History: Diagnosis Date Benign prostatic hyperplasia without lower urinary tract symptoms 07/08/2021 BPH (benign prostatic hyperplasia) Calculus of kidney 12/30/2019 Bilateral renal stones Carpal tunnel syndrome, right upper limb 12/31/2019 Carpal tunnel syndrome of right wrist Cough 10/06/2022 Depression, unspecified 01/05/2022 Depression Disorder of arteries and arterioles, unspecified 01/05/2022 Peripheral arterial occlusive disease Dizziness 10/06/2022 Essential (primary) hypertension 06/29/2022 Hypertension, essential, benign Gastro-esophageal reflux disease without esophagitis 01/05/2022 GERD (gastroesophageal reflux disease) Hyperlipidemia, unspecified 01/05/2022 Hyperlipemia Influenza A 10/06/2022 Male erectile dysfunction, unspecified 09/03/2019 Erectile dysfunction Obesity, unspecified 08/16/2020 Obesity (BMI 30-39.9) Obstructive sleep apnea (adult) (pediatric) 01/05/2022 ALISHA on CPAP Personal history of diseases of the skin and subcutaneous tissue History of actinic keratosis Personal history of other infectious and parasitic diseases History of onychomycosis Personal history of other infectious and parasitic diseases History of tinea pedis Plantar fascial fibromatosis Plantar fasciitis Polyosteoarthritis, unspecified 09/23/2019 Generalized osteoarthritis of multiple sites Rash of genitalia 10/06/2022 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s 01/05/2022 Type II 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 Venous insufficiency (chronic) (peripheral) Venous insufficiency of leg [3] Current Outpatient Medications Medication Sig Dispense Refill acetaminophen (Tylenol) 160 mg/5 mL (5 mL) suspension 20.5 mL (650 mg) by j-tube route every 4 hours if needed for mild pain (1 - 3). atorvastatin (Lipitor) 40 mg tablet Take 1 tablet (40 mg) by mouth once daily. 90 tablet 3 empagliflozin (Jardiance) 25 mg tablet Take 1 tablet (25 mg) by mouth once daily. fexofenadine (Sulaiman) 180 mg tablet Take 1 tablet (180 mg) by mouth once daily. furosemide (Lasix) 20 mg tablet Take 1 tablet (20 mg) by mouth once daily as needed (for swelling to lower legs). 90 tablet 3 gabapentin (Neurontin) 800 mg tablet Take 1 tablet (800 mg) by mouth once daily at bedtime. 90 tablet 1 melatonin 5 mg tablet,disintegrating Dissolve 5 mg in the mouth once daily at bedtime. metFORMIN XR (Glucophage-XR) 750 mg 24 hr tablet Take 1 tablet (750 mg) by mouth 2 times a day. Do not crush, chew, or split. metoprolol succinate XL (Toprol-XL) 25 mg 24 hr tablet Take 0.5 tablets (12.5 mg) by mouth once daily. 45 tablet 3 multivitamin tablet Take 1 tablet by mouth once daily. pantoprazole (ProtoNix) 40 mg EC tablet Take 1 tablet (40 mg) by mouth once daily in the morning. Take before meals. 90 tablet 3 rivaroxaban (Xarelto) 20 mg tablet Take 1 tablet (20 mg) by g-tube once daily in the evening. Take with meals. Take with food. Administer via jejunostomy tube please sodium chloride (Blue Grass) 0.65 % nasal spray Administer 1 spray into each nostril if needed for congestion. tamsulosin (Flomax) 0.4 mg 24 hr capsule Take 1 capsule (0.4 mg) by mouth once daily. Do not crush, chew, or split. vit C/E/Zn/coppr/lutein/zeaxan (PRESERVISION AREDS-2 ORAL) Take by mouth. clotrimazole-betamethasone (Lotrisone) cream Apply topically 2 times a day for 14 days. Apply to affected area 2 times daily 45 g 0 No current facility-administered medications for this visit. [4] Past Surgical History: Procedure Laterality Date CARDIAC ELECTROPHYSIOLOGY PROCEDURE N/A 08/13/2024 Procedure: dcPPM upgrade to PROPERTY CLAIM REP-P; Surgeon: Aravind Jimenez MD; Location: [facility] Cardiac Second Vp Hr Assessment; Service: Electrophysiology; Laterality: N/A; Medtronic CARDIAC ELECTROPHYSIOLOGY PROCEDURE N/A 09/26/2024 Procedure: PPM Lead Extraction, dcPPM Upgrade to PROPERTY CLAIM REP-P, Medtronic, Subclavian is occluded plan for RA extraction; Surgeon: Aravind Jimenez MD; [place] [facility] [place] [facility] Cardiac Second Vp Hr Assessment; Service: Electrophysiology; Laterality: N/A; CARDIAC PACEMAKER PLACEMENT 06/2022 INJECTION Left 05/28/2024 Lt L5/S1-S1 TFEIS INJECTION Left 09/12/2024 Lt L4/5 TFESI LUMBAR EPIDURAL INJECTION Bilateral 12/07/2023 Bilat L4/5 TFESI OTHER SURGICAL HISTORY 06/18/2019 Lumbar vertebral fusion OTHER SURGICAL HISTORY 06/18/2019 Retinal detachment repair OTHER SURGICAL HISTORY 06/18/2019 Phacoemulsification of cataract and insertion of intraocular lens OTHER SURGICAL HISTORY 06/18/2019 Circumcision OTHER SURGICAL HISTORY 06/18/2019 Knee replacement OTHER SURGICAL HISTORY 06/18/2019 Sigmoidoscopy flexible OTHER SURGICAL HISTORY 06/18/2019 Dermatological cryotherapy OTHER SURGICAL HISTORY 06/18/2019 Esophagogastroduodenoscopy OTHER SURGICAL HISTORY 06/18/2019 Nail debridement OTHER SURGICAL HISTORY 06/18/2019 Epidural space injection OTHER SURGICAL HISTORY 07/07/2020 Colonoscopy OTHER SURGICAL HISTORY 01/05/2022 Catheter ablation OTHER SURGICAL HISTORY 08/16/2020 Cardiac catheterization OTHER SURGICAL HISTORY 05/11/2020 Inguinal hernia repair PACEMAKER PLACEMENT [5] Family History Problem Relation Name Age of Onset Other (CVA) Mother Diabetes type II Father Diabetes type II Sister Heart attack Brother Coronary artery disease Brother Kidney failure Brother Diabetes type II Brother documented in this encounter [facility] Work Phone: 11-11-2024 History of Present illness Narrative Images from the original note were not included. Cardiac Electrophysiology Office Visit Referred by Dr. Lazaro ref. provider found for Chief Complaint Patient presents with Follow-up 6 week follow up after device upgrade and ablation . Patient still having some weakness, patient is in physical therapy with [place]. HPI: Rocio Sandoval is a 79 y.o. year old male patient with h/o DM, HTN, HLD, ALISHA, AF presenting today for follow up Objective Current Outpatient Medications Medication Instructions acetaminophen (TYLENOL) 650 mg, j-tube, Every 4 hours PRN atorvastatin (LIPITOR) 40 mg, Daily empagliflozin (JARDIANCE) 25 mg, Daily fexofenadine (SULAIMAN) 180 mg, Daily furosemide (LASIX) 20 mg, oral, Daily PRN gabapentin (NEURONTIN) 800 mg, oral, Nightly melatonin 5 mg, Nightly metFORMIN XR (GLUCOPHAGE-XR) 750 mg, 2 times daily metoprolol succinate XL (TOPROL-XL) 12.5 mg, oral, Daily multivitamin tablet 1 tablet, Daily pantoprazole (PROTONIX) 40 mg, oral, Daily before breakfast rivaroxaban (XARELTO) 20 mg, g-tube, Daily with evening meal, Take with food. Administer via jejunostomy tube please sodium chloride (Blue Grass) 0.65 % nasal spray 1 spray, As needed tamsulosin (FLOMAX) 0.4 mg, Daily vit C/E/Zn/coppr/lutein/zeaxan (PRESERVISION AREDS-2 ORAL) Take by mouth. Visit Vitals BP 122/66 Pulse 68 Ht 1.88 m (6' 2) Wt 96.6 kg (213 lb) SpO2 97% BMI 27.35 kg/m Smoking Status Never BSA 2.25 m Physical Exam Constitutional: Appearance: Normal appearance. HENT: Head: Normocephalic. Cardiovascular: Rate and Rhythm: Normal rate and regular rhythm. Pulses: Normal pulses. Heart sounds: No murmur heard. Comments: left sided implant healed well, no ecchymosis, hematoma or drainage noted Pulmonary: Effort: Pulmonary effort is normal. No respiratory distress. Musculoskeletal: General: No swelling. Skin: General: Skin is warm and dry. Neurological: Mental Status: He is alert. Psychiatric: Mood and Affect: Mood normal. My Interpretation of Reviewed Study(s): Echo (June 2021): Normal LV function with an EF of 60 to 65%. Biatrial enlargement with a small PFO. Echo (April 2024): Mildly reduced LV function with an EF of 42%. Mildly dilated left atrium and normal right atrial size. [id number] Score Age >= 75: 2 Sex Male: 0 CHF History No: 0 HTN Yes: 1 Stroke/TIA/Thromboembolism No: 0 Vascular Dz: CAD/PAD/Aortic Plaque No: 0 DM Yes: 1 Total Score 4 Assessment & Plan Persistent atrial fibrillation s/p RFA (PVI, PWI November) AF Dx History: 2020; h/o Cardioversion: Yes; AAD Use: Amiodarone 200mg (current); Anticoagulation use: Xarelto 20mg Daily (current); h/o Ablation: Yes; [id number] Score: 4 On device interrogation patient has been in persistent atrial fibrillation at least since January 2023. Overall rates appear to be relatively controlled with ventricular rate somewhere in the 60s to 90s and therefore we could opt for a rate control strategy with the atrial fibrillation. Pt was previously a pt of Dr. Sloan. - c/w AC: Xarelto 20mg Daily - Start Metoprolol tartrate 25mg daily for rate control SSS s/p dcPPM (2021) s/p Upgrade to PROPERTY CLAIM REP-P s/p RA lead extraction Extraction procedure complicated by esophageal perforation s/p esophageal stenting and repair by thoracic surgery and now stent removal Patient has a Medtronic Biventricular pacemaker. Anticipated battery longevity 10.7yrs (as of 05/13/24). RA pacing 3.9%, RV pacing 92.1%. Arrhythmias noted on interrogation: AF burden 99.7% Lead parameters stable with steady impedance and thresholds noted: Stable - c/t follow with device clinic as scheduled Return to Clinic: Patient should return to the EP Clinic in 2 months Aravind Jimenez MD [facility] Cardiac Electrophysiology [email or web address] Disclaimer: This note was dictated by speech recognition, and every effort has been made to prevent any error in scrum project manager, however minor errors may be present documented in this encounter [facility] Work Phone: 11-06-2024 Evaluation + Plan note Associated Problem(s): 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 stenosis Orders: Follow Up In Primary Care - Established Follow Up In Primary Care - Established; Future [facility] Work Phone: 11-06-2024 Evaluation + Plan note Associated Problem(s): Sacroiliitis ([facility]) Currently pain seems to be stable. Orders: Follow Up In Primary Care - [facility] Follow Up In [facility]; Future [facility] Work Phone: 11-06-2024 Evaluation + Plan note Associated Problem(s): Generalized osteoarthritis of multiple sites Orders: Follow Up In Primary Care - [facility] Follow Up In [facility]; Future [facility] Work Phone: 11-06-2024 Evaluation + Plan note Associated Problem(s): Chronic low back pain Reduce gabapentin to 1 tablet at night, is having some dizziness and fatigue, had been off of gabapentin when in [facility] restarted 800 mg 3 times daily when he returned home, may need to be on a lower dose of this medication, normally follows with pain medicine clinic Orders: Follow Up In Primary Care [facility] Follow Up In [facility]; Future [facility] Work Phone: 11-06-2024 Evaluation + Plan note Associated Problem(s): Lumbosacral spondylosis Orders: Follow Up In Primary Care - Established Follow Up In Primary Care - [facility]; Future [facility] Work Phone: 11-06-2024 Evaluation + Plan note Associated Problem(s): GERD (gastroesophageal reflux disease) Currently stable with PPI, could probably benefit from speech therapy given recent history of esophageal trauma. Orders: Follow Up In Primary Care - [facility] Follow Up In Primary [facility]; Future pantoprazole (ProtoNix) 40 mg EC tablet; Take 1 tablet (40 mg) by mouth once daily in the morning. Take before meals. [facility] Work Phone: 11-06-2024 Evaluation + Plan note Associated Problem(s): Hypertension, essential, benign Blood pressure stable, renal function stable. Orders: Follow Up In Primary Care - [facility] Follow Up In [facility]; Future Albumin-Creatinine Ratio, Urine Random; Future Comprehensive Metabolic Panel; Future [facility] Work Phone: 11-06-2024 Evaluation + Plan note Associated Problem(s): Hyperlipidemia Continue with atorvastatin Orders: Follow Up In Primary Care - [facility] Follow Up In [facility]; Future Comprehensive Metabolic Panel; Future Lipid Panel; Future T [facility] Work Phone: 11-06-2024 Evaluation + Plan note Associated Problem(s): Diabetes mellitus, type 2 (Multi) A1c testing slightly above 7, continue with metformin, SGL 2 and recheck in 3 months Orders: Follow Up In Primary Care - Established Follow Up In Primary [facility]; Future Albumin-Creatinine Ratio, Urine Random; Future Comprehensive Metabolic Panel; Future Hemoglobin A1C; Future Thyroid Stimulating Hormone; Future Lipid Panel; Future T [facility] Work Phone: 11-06-2024 Evaluation + Plan note Associated Problem(s): Permanent atrial fibrillation (Multi) Continue with Xarelto, heart rate stable, follows with cardiology Orders: Follow Up In Primary Care - Established Follow Up In Primary [facility]; Future metoprolol succinate XL (Toprol-XL) 25 mg 24 hr tablet; Take 0.5 tablets (12.5 mg) by mouth once daily. Comprehensive Metabolic Panel; Future CBC and Auto Differential; Future T [facility] Work Phone: 11-06-2024 Evaluation + Plan note Associated Problem(s): Low testosterone in male Orders: Follow Up In Primary Care - Established Follow Up In Primary [facility]; Future T [facility] Work Phone: 11-06-2024 Evaluation + Plan note Associated Problem(s): Chronic diastolic congestive heart failure Blood pressure stable, asymptomatic. Orders: Follow Up In Primary Care - Established Follow Up In Primary Care - Established; Future [facility] Work Phone: 11-06-2024 History of Present illness Narrative Subjective Reason for Visit: Rocio Sandoval is an 79 y.o. male here for a Medicare Wellness visit. Past Medical, Surgical, and Family History reviewed and updated in chart. Reviewed all medications by prescribing practitioner or clinical pharmacist (such as prescriptions, OTCs, herbal therapies and supplements) and documented in the medical record. HPI No headache, chest pain, shortness of breath, dizziness, lightheadedness, or edema No low blood sugars since last OV, seen opthalmology in the past year, and no numbness or tingling in feet, skin normal. Taking PPI daily without breakthrough symptoms. Reviewed dietary, caffeine, tobacco, alcohol, and NSAID use. No dyspepsia, dysphagia, reflux, melena, or abdominal pain. Taking and tolerating Xarelto Just started therapy yesterday, sore in right groin, + weakness Having some issues swallowing Having some constipation, using Miralax, used some Senna yesterday Dizzy at times, some LBP at times, seen at pain clinic Patient Care Team: Tye Anne MD as PCP - General (Family Medicine) Tye Anne MD as PCP - [employer] Medicare Advantage PCP Review of Systems Constitutional: Negative for activity change, appetite change, fatigue and unexpected weight change. HENT: Negative for ear pain, nosebleeds, rhinorrhea, sneezing and trouble swallowing. Respiratory: Negative for cough, shortness of breath and wheezing. Cardiovascular: Negative for chest pain, palpitations and leg swelling. Gastrointestinal: Negative for abdominal distention, abdominal pain, constipation, diarrhea, nausea and vomiting. Genitourinary: Negative for difficulty urinating. Musculoskeletal: Positive for back pain. Negative for arthralgias and gait problem. Skin: Negative for rash. Neurological: Positive for dizziness and weakness. Negative for light-headedness, numbness and headaches. Hematological: Negative for adenopathy. Psychiatric/Behavioral: Negative for behavioral problems, dysphoric mood and sleep disturbance. The patient is not nervous/anxious. All other systems reviewed and are negative. Objective Vitals: BP 110/70 Pulse 70 Ht 1.88 m (6' 2) Wt 97.8 kg (215 lb 9.6 oz) SpO2 96% BMI 27.68 kg/m Physical Exam Vitals and nursing note reviewed. Constitutional: Appearance: Normal appearance. HENT: Head: Normocephalic and atraumatic. Right Ear: Tympanic membrane, ear canal and external ear normal. Left Ear: Tympanic membrane, ear canal and external ear normal. Nose: Nose normal. Mouth/Throat: Mouth: Mucous membranes are moist. Pharynx: Oropharynx is clear. Cardiovascular: Rate and Rhythm: Normal rate and regular rhythm. Pulses: Normal pulses. Heart sounds: Normal heart sounds. Pulmonary: Effort: Pulmonary effort is normal. Breath sounds: Normal breath sounds. Abdominal: General: Abdomen is flat. Bowel sounds are normal. Palpations: Abdomen is soft. Musculoskeletal: Cervical back: Normal range of motion and neck supple. Skin: General: Skin is warm and dry. Capillary Refill: Capillary refill takes less than 2 seconds. Neurological: Mental Status: He is alert. Psychiatric: Mood and Affect: Mood normal. Behavior: Behavior normal. Assessment & Plan 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 stenosis Orders: Follow Up In Primary Care - [facility] Follow Up In Primary Care - [facility]; Future Sacroiliitis ([facility]) Currently pain seems to be stable. Orders: Follow Up In Primary Care - [facility] Follow Up In [facility]; Future Generalized osteoarthritis of multiple sites Orders: Follow Up In Primary Care [facility] Follow Up In Primary [facility]; Future Chronic bilateral low back pain with bilateral sciatica Reduce gabapentin to 1 tablet at night, is having some dizziness and fatigue, had been off of gabapentin when in [facility] restarted 800 mg 3 times daily when he returned home, may need to be on a lower dose of this medication, normally follows with pain medicine clinic Orders: Follow Up In Primary Care - [facility] Follow Up In Primary [facility]; Future Osteoarthritis of spine with radiculopathy, lumbosacral region Orders: Follow Up In Primary Care - [facility] Follow Up In Primary Care [facility]; Future Gastroesophageal reflux disease without esophagitis Currently stable with PPI, could probably benefit from speech therapy given recent history of esophageal trauma. Orders: Follow Up In Primary [facility] Follow Up In [facility]; Future pantoprazole (ProtoNix) 40 mg EC tablet; Take 1 tablet (40 mg) by mouth once daily in the morning. Take before meals. Hypertension, essential, benign Blood pressure stable, renal function stable. Orders: Follow Up In Primary Care - [facility] Follow Up In Primary [facility]; Future Albumin-Creatinine Ratio, Urine Random; Future Comprehensive Metabolic Panel; Future Mixed hyperlipidemia Continue with atorvastatin Orders: Follow Up In Primary [facility] Follow Up In [facility]; Future Comprehensive Metabolic Panel; Future Lipid Panel; Future 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, without long-term current use of insulin A1c testing slightly above 7, continue with metformin, SGL 2 and recheck in 3 months Orders: Follow Up In Primary [facility] Follow Up In [facility]; Future Albumin-Creatinine Ratio, Urine Random; Future Comprehensive Metabolic Panel; Future Hemoglobin A1C; Future Thyroid Stimulating Hormone; Future Lipid Panel; Future Permanent atrial fibrillation (Multi) Continue with Xarelto, heart rate stable, follows with cardiology Orders: Follow Up In Primary Care [facility] Follow Up In [facility]; Future metoprolol succinate XL (Toprol-XL) 25 mg 24 hr tablet; Take 0.5 tablets (12.5 mg) by mouth once daily. Comprehensive Metabolic Panel; Future CBC and Auto Differential; Future Low testosterone in male Orders: Follow Up In Primary Care [facility] Follow Up In [facility]; Future Chronic diastolic congestive heart failure Blood pressure stable, asymptomatic. Orders: Follow Up In [facility] Follow Up In [facility]; Future Routine general medical examination at health care facility Orders: Follow Up In Primary Care [facility]; Future Chronic idiopathic constipation Orders: Follow Up In Primary Care [facility]; Future Screening for prostate cancer Orders: Follow Up In Primary Care [facility]; Future Prostate Specific Antigen, Screen; Future documented in this encounter [facility] Work Phone: 05-08-2025 Instructions Tye Anne MD - 11/06/2024 10:00 AM EDT Reduce gabapentin to 1 at night due to dizziness, be sure to drink plenty of fluids, use Miralax daily and supplement with milk of magnesia as needed documented in this encounter [facility] Work Phone: 11-06-2024 Miscellaneous Notes Associated Problem(s): 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 stenosis Orders: Follow Up In Primary Care - [facility] Follow Up In Primary [facility]; Future Associated Problem(s): Sacroiliitis ([facility]) Currently pain seems to be stable. Orders: Follow Up In Primary Care - [facility] Follow Up In [facility]; Future Associated Problem(s): Generalized osteoarthritis of multiple sites Orders: Follow Up In Primary Care - Established Follow Up In [facility]; Future Associated Problem(s): Chronic low back pain Reduce gabapentin to 1 tablet at night, is having some dizziness and fatigue, had been off of gabapentin when in [facility] restarted 800 mg 3 times daily when he returned home, may need to be on a lower dose of this medication, normally follows with pain medicine clinic Orders: Follow Up In Primary Care - Established Follow Up In Primary Care [facility]; Future Associated Problem(s): Lumbosacral spondylosis Orders: Follow Up In Primary Care - Established Follow Up In Primary Care - [facility]; Future Associated Problem(s): GERD (gastroesophageal reflux disease) Currently stable with PPI, could probably benefit from speech therapy given recent history of esophageal trauma. Orders: Follow Up In Primary Care - [facility] Follow Up In Primary Care - [facility]; Future pantoprazole (ProtoNix) 40 mg EC tablet; Take 1 tablet (40 mg) by mouth once daily in the morning. Take before meals. Associated Problem(s): Hypertension, essential, benign Blood pressure stable, renal function stable. Orders: Follow Up In Primary Care - [facility] Follow Up In Primary Care [facility]; Future Albumin-Creatinine Ratio, Urine Random; Future Comprehensive Metabolic Panel; Future Associated Problem(s): Hyperlipidemia Continue with atorvastatin Orders: Follow Up In Primary Care - Established Follow Up In Primary Care [facility]; Future Comprehensive Metabolic Panel; Future Lipid Panel; Future Associated Problem(s): Diabetes mellitus, type 2 (Multi) A1c testing slightly above 7, continue with metformin, SGL 2 and recheck in 3 months Orders: Follow Up In Primary Care - Established Follow Up In Primary Care [facility]; Future Albumin-Creatinine Ratio, Urine Random; Future Comprehensive Metabolic Panel; Future Hemoglobin A1C; Future Thyroid Stimulating Hormone; Future Lipid Panel; Future Associated Problem(s): Permanent atrial fibrillation (Multi) Continue with Xarelto, heart rate stable, follows with cardiology Orders: Follow Up In Primary Care - Established Follow Up In Primary Care [facility]; Future metoprolol succinate XL (Toprol-XL) 25 mg 24 hr tablet; Take 0.5 tablets (12.5 mg) by mouth once daily. Comprehensive Metabolic Panel; Future CBC and Auto Differential; Future Associated Problem(s): Low testosterone in male Orders: Follow Up In Primary Care - Established Follow Up In Primary Care [facility]; Future Associated Problem(s): Chronic diastolic congestive heart failure Blood pressure stable, asymptomatic. Orders: Follow Up In Primary Care - Established Follow Up In Primary Care [facility]; Future documented in this encounter [facility] Work Phone: 10-29-2024 Evaluation + Plan note Associated Problem(s): GERD (gastroesophageal reflux disease) Tolerating PPI. [facility] Work Phone: 10-29-2024 Evaluation + Plan note Associated Problem(s): Esophageal perforation Post esophageal stent, had G-tube removed recently, was hospitalized and in a rehab center in [place] until a few days ago. [facility] Work Phone: 10-29-2024 Evaluation + Plan note Associated Problem(s): Diabetes mellitus, type 2 (Multi) Patient's weight is down approximately 20 pounds in the past couple months due to unexpected esophageal perforation that required him to do tube feedings via G-tube. Patient's appetite is improved, he denies any dysphagia, not sure if he is taking any of his diabetic medications currently, check blood testing to assess A1c and sugar follow-up again in 1 week. [facility] Work Phone: 10-29-2024 Miscellaneous Notes Associated Problem(s): GERD (gastroesophageal reflux disease) Tolerating PPI. Associated Problem(s): Esophageal perforation Post esophageal stent, had G-tube removed recently, was hospitalized and in a rehab center in [place] until a few days ago. Associated Problem(s): Diabetes mellitus, type 2 (Multi) Patient's weight is down approximately 20 pounds in the past couple months due to unexpected esophageal perforation that required him to do tube feedings via G-tube. Patient's appetite is improved, he denies any dysphagia, not sure if he is taking any of his diabetic medications currently, check blood testing to assess A1c and sugar follow-up again in 1 week. Associated Problem(s): Heart failure with mildly reduced ejection fraction (HFmrEF) No current signs or symptoms of active heart failure, not currently taking SGL 2, is still taking metoprolol, not on diuretics, taking Xarelto, not sure if he is taking any of his other medications including statin, instructed to return in a week with all of his medications so that we could review. Associated Problem(s): Permanent atrial fibrillation (Multi) Taking and tolerating chronic Xarelto, posthospitalization while having a pacemaker wire revised had a perforation of his esophagus as a result of the ANTONIETTA. Esophageal stent has since been removed along with G-tube, recently discharged from extended-care facility in the past few days and doing outpatient physical therapy. Patient has follow-up appointment with cardiology in the next month. Associated Problem(s): Hypertension, essential, benign Blood pressure stable today, not sure if patient is taking anything other than metoprolol currently, check blood test and assess renal function and electrolytes. Follow-up again in 1 week with instructions to bring all medications with him. documented in this encounter [facility] Work Phone: 10-29-2024 Evaluation + Plan note Associated Problem(s): Heart failure with mildly reduced ejection fraction (HFmrEF) No current signs or symptoms of active heart failure, not currently taking SGL 2, is still taking metoprolol, not on diuretics, taking Xarelto, not sure if he is taking any of his other medications including statin, instructed to return in a week with all of his medications so that we could review. [facility] Work Phone: 10-29-2024 Evaluation + Plan note Associated Problem(s): Permanent atrial fibrillation (Multi) Taking and tolerating chronic Xarelto, posthospitalization while having a pacemaker wire revised had a perforation of his esophagus as a result of the ANTONIETTA. Esophageal stent has since been removed along with G-tube, recently discharged from [facility] in the past few days and doing outpatient physical therapy. Patient has follow-up appointment with cardiology in the next month. [facility] Work Phone: 10-29-2024 Evaluation + Plan note Associated Problem(s): Hypertension, essential, benign Blood pressure stable today, not sure if patient is taking anything other than metoprolol currently, check blood test and assess renal function and electrolytes. Follow-up again in 1 week with instructions to bring all medications with him. [facility] Work Phone: 10-29-2024 History of Present illness Narrative Subjective Patient ID: Rocio Sandoval is a 79 y.o. male who presents for Hospital Follow-up. HPI Patient went to have pacemaker revision done, had a perforation of the esophagus done when a ANTONIETTA was performed. Had prolonged hospitalization and recovery, G-tube was recently removed. Was in ECF in [place], discharged this past week, had G-tube removed last week Eating solid foods (soft foods), weight down 20 pounds in the past 2 months Going to do outpatient PT No headache, chest pain, shortness of breath, dizziness, lightheadedness, or edema Not stable with walking, using a walker at home Some constipation and decreased urine stream Review of Systems Constitutional: Positive for fatigue and unexpected weight change. Negative for activity change and appetite change. HENT: Negative for ear pain, nosebleeds, rhinorrhea, sneezing and trouble swallowing. Respiratory: Negative for cough, shortness of breath and wheezing. Cardiovascular: Negative for chest pain, palpitations and leg swelling. Gastrointestinal: Positive for constipation. Negative for abdominal distention, abdominal pain, diarrhea, nausea and vomiting. Genitourinary: Negative for difficulty urinating. Musculoskeletal: Positive for gait problem. Negative for arthralgias. Skin: Negative for rash. Neurological: Negative for dizziness, light-headedness, numbness and headaches. Hematological: Negative for adenopathy. Psychiatric/Behavioral: Negative for behavioral problems, dysphoric mood and sleep disturbance. The patient is not nervous/anxious. All other systems reviewed and are negative. Objective BP 108/80 Pulse 85 Ht 1.88 m (6' 2) Wt 96.1 kg (211 lb 12.8 oz) SpO2 98% BMI 27.19 kg/m Physical Exam Vitals and nursing note reviewed. Constitutional: General: He is not in acute distress. Appearance: Normal appearance. He is not toxic-appearing. HENT: Head: Normocephalic and atraumatic. Right Ear: Tympanic membrane, ear canal and external ear normal. Left Ear: Tympanic membrane, ear canal and external ear normal. Nose: Nose normal. Mouth/Throat: Mouth: Mucous membranes are moist. Pharynx: Oropharynx is clear. Eyes: Extraocular Movements: Extraocular movements intact. Conjunctiva/sclera: Conjunctivae normal. Pupils: Pupils are equal, round, and reactive to light. Cardiovascular: Rate and Rhythm: Normal rate and regular rhythm. Pulses: Normal pulses. Heart sounds: Normal heart sounds. Pulmonary: Effort: Pulmonary effort is normal. Breath sounds: Normal breath sounds. Abdominal: General: Abdomen is flat. Bowel sounds are normal. Palpations: Abdomen is soft. Comments: Area of former PEG tube appears to be healed well, there is no drainage or redness. Musculoskeletal: Cervical back: Normal range of motion and neck supple. Skin: General: Skin is warm and dry. Capillary Refill: Capillary refill takes less than 2 seconds. Neurological: General: No focal deficit present. Mental Status: He is alert and oriented to person, place, and time. Mental status is at baseline. Psychiatric: Mood and Affect: Mood normal. Behavior: Behavior normal. Assessment/Plan Problem List Items Addressed This Visit ICD-10-CM Fatigue R53.83 Relevant Orders Follow Up In Primary Care - Established TSH with reflex to Free T4 if abnormal GERD (gastroesophageal reflux disease) K21.9 Tolerating PPI. Relevant Orders Follow Up In Primary Care - Established Hypertension, essential, benign - Primary I10 Blood pressure stable today, not sure if patient is taking anything other than metoprolol currently, check blood test and assess renal function and electrolytes. Follow-up again in 1 week with instructions to bring all medications with him. Relevant Orders Follow Up In Primary Care - Established Comprehensive Metabolic Panel Permanent atrial fibrillation (Multi) I48.21 Taking and tolerating chronic Xarelto, posthospitalization while having a pacemaker wire revised had a perforation of his esophagus as a result of the ANTONIETTA. Esophageal stent has since been removed along with G-tube, recently discharged from [facility] in the past few days and doing outpatient physical therapy. Patient has follow-up appointment with cardiology in the next month. Relevant Medications metoprolol succinate XL (Toprol-XL) 25 mg 24 hr tablet Other Relevant Orders Follow Up In Primary Care - Established CBC and Auto Differential Comprehensive Metabolic Panel TSH with reflex to Free T4 if abnormal Diabetes mellitus, type 2 (Multi) E11.9 Patient's weight is down approximately 20 pounds in the past couple months due to unexpected esophageal perforation that required him to do tube feedings via G-tube. Patient's appetite is improved, he denies any dysphagia, not sure if he is taking any of his diabetic medications currently, check blood testing to assess A1c and sugar follow-up again in 1 week. Relevant Orders Follow Up In Primary Care - Established Comprehensive Metabolic Panel Hemoglobin A1C Heart failure with mildly reduced ejection fraction (HFmrEF) I50.22 No current signs or symptoms of active heart failure, not currently taking SGL 2, is still taking metoprolol, not on diuretics, taking Xarelto, not sure if he is taking any of his other medications including statin, instructed to return in a week with all of his medications so that we could review. Relevant Medications metoprolol succinate XL (Toprol-XL) 25 mg 24 hr tablet Other Relevant Orders Follow Up In Primary Care - Established Comprehensive Metabolic Panel Esophageal perforation K22.3 Post esophageal stent, had G-tube removed recently, was hospitalized and in a rehab center in [place] until a few days ago. Relevant Orders Follow Up In Primary Care - Established documented in this encounter [facility] Work Phone: 10-29-2024 Instructions Tye Anne MD - 10/29/2024 11:20 AM EDT Bring medicines to appointment next week, add some Miralax daily documented in this encounter [facility] Work Phone: 10-24-2024 Note [facility] Medical Records Department [address] [place] [id number] Discharge Summary 10/24/24 1519 MR#: [id number] Acct: [id number] Name: ROCIO SANDOVAL Rep #: [id number] : 1945 79 From: Cristopher Washington MD PCP: Dr. Santi Anne MD Status:ADM IN Location: [place] [address] Providers Date of Admission: 10/08/24 Primary Care Physician: Dr. Santi Anne MD Consultations 10/09/24 08:00 Consult: General Surgery Routine Consulting Provider: Landry Jones Reason for Consult: malfunctioning G-J Tube EMERGENT Consult: No Notified: Yes Date Notified: 10/09/24 Time Notified: 07:40 Method of Notification: Verbal 10/09/24 10:17 Consult: Gastroenterology Routine Consulting Provider: [facility] Reason for Consult: Leaking GJ tube EMERGENT Consult: No Notified: Yes Date Notified: 10/09/24 Time Notified: 10:18 Method of Notification: Text Reason For Visit: ESOPHAGEAL PERFORATION Diagnosis Discharge Diagnosis (1) Esophageal perforation: Status: Acute Code(s): K22.3 - Perforation of esophagus Plan 79 year old male with below past medical history hospitalized for TV pace extraction with upgrade to PROPERTY CLAIM REP-P biventricular pacer, complicated by esophageal perforation, pneumomediastinum requiring esophageal stent place, G-J tube placement, admitted to TCU with debility, here for rehabilitation, strengthening, prior to discharge home with SO. * Debility - PT/OT. * G-J tube - ST. * Pain - Tylenol 650mg q4 prn pain (1-3), Morphine 5mg q4 prn pain (7-10), Lidoderm 1 patch td daily. * Bowel - Colace 100mg bid, Magnesium citrate 300mL daily prn. * Adult immunization - Administer pneumonia vaccine, covid vaccine, flu vaccine as appropriate. * DVT prophylaxis - on Xarelto. * Esophageal perforation s/p esophageal stent - will removal +/- replacement in near future. * Pneumomediastinum - Augmentin 800mg bid thru 10/12/2024, Fluconazole 40mg daily thru 10/13/2024. * Nutrition - Jevity 1.5 100mL/hour. * GERD - Lansoprazole 30mg daily. * Skin irritation - Calmoseptine topical bid. * Dry eyes - Artificial tears 2gtt ou q1 prn. * Atrial fibrillation - Xarelto 20mg daily. Medications at Discharge Home Medications metoprolol succinate 25 mg tablet,extended release 24 hr 12.5 mg (1/2 x 25 mg) PO DAILY 30 days #15 tabs 10/24/24 pantoprazole 40 mg tablet,delayed release 40 mg PO DAILY 30 days #30 tabs 10/24/24 rivaroxaban 20 mg tablet (Xarelto) 20 mg PO DINNER 30 days #30 tabs 10/24/24 Hospital Course Operations None Procedures EGD Summary of Care Provided Minutes Spent on Discharge: 35 Hospital Course: 79 year old male with below past medical history hospitalized for TV pace extraction with upgrade to [employer]ERTY CLAIM REP-P biventricular pacer, complicated by esophageal perforation, pneumomediastinum requiring esophageal stent place, G-J tube placement, admitted to TCU with debility, here for rehabilitation, strengthening, prior to discharge home with SO. 10/22/2024 Dr. Khoury EGD: Findings: An esophageal stent was found in the entire esophagus. Stent removal was accomplished with a jumbo forceps. Full-strength contrast was injected through the scope and with the use of fluoroscopy no contrast was seen leaking out of the esophagus. No perforation was seen. There was a presence of a large hiatal hernia. There was evidence of an intact gastrostomy with a patent G-tube present in the gastric body. This was characterized by healthy appearing mucosa. The PEG required removal because it was no longer necessary. The PEG was cut externally, grasped, and removed with the scope. Removal was easily accomplished. No gross lesions were noted in the entire examined duodenum. Non-severe esophagitis with no bleeding was found 27 to 37 cm from the incisors. A large hiatal hernia was present. Impression: - Pre-existing esophageal stent, removed. - Intact gastrostomy with a patent G-tube present characterized by healthy appearing mucosa. - No gross lesions in the entire examined duodenum. - The PEG was cut externally, grasped, and removed with the scope because it was no longer necessary. Discharge home 10/27/2024, [facility] outpatient PT/ST. Physical Exam Const alert General Appearance: cooperative HEENT normocephalic Eyes PERRL and EOMs intact bilaterally Neck supple, no JVD and no carotid bruits Resp normal respiratory effort, normal air movement and clear to auscultation bilaterally Cardio regular rate and regular rhythm GI normal to inspection, nondistended, normoactive bowel sounds, non-tender and non-distended Extremity normal capillary refill General Extremity: Negative for edema Skin no rashes or lesions noted General Skin Exam: no breakdown Psych affect normal Appearance: appropriate Medical Records (more content not included)... [facility] 10-23-2024 History of Present illness Narrative Chief complaint Post-operative visit - virtual Virtual or Telephone Consent While technically available, the patient was unable or unwilling to consent to connect via audio/video telehealth technology; therefore, I performed this visit using a real-time audio only connection between Rocio Sandoval & Monserrat Nash DO. Verbal consent was requested and obtained from Rocio Sandoval on this date, 10/23/24 for a telehealth visit and the patient's location was confirmed at the time of the visit. History Of Present Illness Rocio Sandoval is a 79 y.o. male presenting for their first post-operative visit virtually after undergoing an EGD stent and PEG placement (with later IR J tube extension) on 09/27/24 after suffering an iatrogenic distal esophageal perforation, small secondary to ANTONIETTA during pacemaker exchange procedure. Patient has large PEH into right chest present for some time that likely contributed to this. Patient had a slow postoperative recovery including multiple days of n.p.o. and complaints of abdominal pressure and upper abdominal pain. He had some issues with J-tube feed initiation as well but ultimately was able to tolerate this. He was discharged to rehab in [place] on 10/08/24. He began to have issues with clogging of the J limb of his feeding tube and was ultimately started on p.o. feeds a couple weeks ago by the physician at the rehab facility. He reports that last night he underwent a procedure at [facility] for stent removal and feels his abdominal pain and pressure is much better since this. He denies any dysphagia. Tolerating food without issue (Unsure if they did an intraoperative esophagram but he does report he has not done a swallow study since then. However he feels clinically well) Past Medical History He has a past medical history of Benign prostatic hyperplasia without lower urinary tract symptoms (07/08/2021), Calculus of kidney (12/30/2019), Carpal tunnel syndrome, right upper limb (12/31/2019), Cough (10/06/2022), Depression, unspecified (01/05/2022), Disorder of arteries and arterioles, unspecified (01/05/2022), Dizziness (10/06/2022), Essential (primary) hypertension (06/29/2022), Gastro-esophageal reflux disease without esophagitis (01/05/2022), Hyperlipidemia, unspecified (01/05/2022), Influenza A (10/06/2022), Male erectile dysfunction, unspecified (09/03/2019), Obesity, unspecified (08/16/2020), Obstructive sleep apnea (adult) (pediatric) (01/05/2022), Personal history of diseases of the skin and subcutaneous tissue, Personal history of other infectious and parasitic diseases, Personal history of other infectious and parasitic diseases, Plantar fascial fibromatosis, Polyosteoarthritis, unspecified (09/23/2019), Rash of genitalia (10/06/2022), 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s (Multi) (01/05/2022), and Venous insufficiency (chronic) (peripheral). Surgical History He has a past surgical history that includes Other surgical history (06/18/2019); Other surgical history (06/18/2019); Other surgical history (06/18/2019); Other surgical history (06/18/2019); Other surgical history (06/18/2019); Other surgical history (06/18/2019); Other surgical history (06/18/2019); Other surgical history (06/18/2019); Other surgical history (06/18/2019); Other surgical history (06/18/2019); Other surgical history (07/07/2020); Other surgical history (01/05/2022); Other surgical history (08/16/2020); Other surgical history (05/11/2020); Cardiac pacemaker placement (06/2022); pacemaker placement; Lumbar epidural injection (Bilateral, 12/07/2023); NM injection (Left, 05/28/2024); Cardiac electrophysiology procedure (N/A, 08/13/2024); NM injection (Left, 09/12/2024); and Cardiac electrophysiology procedure (N/A, 09/26/2024). Social History He reports that he has never smoked. He has never been exposed to tobacco smoke. He has never used smokeless tobacco. He reports that he does not drink alcohol and does not use drugs. Medications Current Medications[1] Review of Systems: Review of Systems Constitutional: No fevers, chills, unexpected weight change HENT: No sore throat, congestion, or nasal drainage Eyes: No visual changes or eye itching Respiratory: see HPI. No cough, worsening dyspnea, wheezing Cardiac: No chest pain, palpitations, or lower extremity edema Gastrointestinal: No nausea, vomiting, diarrhea. No abdominal pain Genitourinary: No dysuria or hematuria Musculoskeletal: No back pain. No significant myalgias or arthralgias Neurologic: No headaches, dizziness, or seizures. Hematologic: No east bleeding or bruising. Psychiatric: No anxiety or depression. Physical Exam: Physical Exam There were no vitals taken for this visit. Neurological: General: No focal deficit present. Mental Status: Patient is alert and oriented to person, place, and time. Psychiatric: Mood and Affect: Mood normal. Relevant Results: Pathology: N/A Imaging: Imaging No results found. Cardiology, Vascular, and Other Imaging No other imaging results found for the past 7 days No new Assessment/Plan Problem List Items Addressed This Visit ICD-10-CM Esophageal perforation - Primary K22.3 Mr. Sandoval is an 79 year old male with iatrogenic distal esophageal perforation (small) with ANTONIETTA for cardiac procedure s/p EGD with stent and PEG/later J extension on 09/27/24. Stent was removed last night per team at [facility] along with his PEG tube. Pt feeling clinically well today. My information was given to patient if he has any issues or concerns. Monserrat Nash DO Thoracic & Esophageal Surgery [1] Current Outpatient Medications: acetaminophen (Tylenol) 160 mg/5 mL (5 mL) suspension, 20.5 mL (650 mg) by j-tube route every 4 hours if needed for mild pain (1 - 3)., Disp: , Rfl: docusate sodium (Colace) 50 mg/5 mL oral liquid, Take 10 mL (100 mg) by mouth 2 times a day., Disp: , Rfl: esomeprazole (NexIUM) 20 mg packet, Take 40 mg by mouth once daily in the morning. Take before meals. Administer via jejunostomy tube, Disp: , Rfl: lidocaine 4 % patch, Place 1 patch over 12 hours on the skin once daily. Remove & discard patch within 12 hours or as directed by MD., Disp: , Rfl: morphine 10 mg/5 mL solution, 2.5 mL (5 mg) by j-tube route every 4 hours if needed for severe pain (7 - 10)., Disp: , Rfl: rivaroxaban (Xarelto) 20 mg tablet, Take 1 tablet (20 mg) by g-tube once daily in the evening. Take with meals. Take with food. Administer via jejunostomy tube please, Disp: , Rfl: documented in this encounter [facility] Work Phone: 10-22-2024 Note [facility] Medical Records Department [facility] [place] [address] History Physical Exam 10/22/24 1536 MR#: [id number] Acct: [id number] Name: ROCIO SANDOVAL Rep #: [id number] : 1945 79 From: Jovany Khoury DO PCP: Dr. Santi Anne MD Status:[facility] Location: [place] [address] HPI - General General Date of Admission: 10/22/24 Date of Service: 10/22/24 Chief Complaint: Esophageal stent removal or exchange HPI Narrative ROCIO SANDOVAL, is a 79 gentleman in rehab. history of hypertension, HFrEF, ALISHA, Diabetes Mellitus II, sick sinus syndrome who presented for TV pacer extraction with upgrade to [employer]ERTY CLAIM REP-P biventricular pacer. 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 Patient underwent ANTONIETTA intraoperatively. Postoperatively had a chest X-ray performed demonstrating possible pneumomediastinum. He had noncontrasted CT chest demonstrating pneumomediastinum. Patient had a CT chest with IV and PO contrast demonstrating a perforation at the posterior aspect of the GEJ concerning for esophageal perforation/injury. He underwent EGD with esophageal stent placement 150 x 23 distal end at 40cm and PET tube placement on 09/27/2024. Over his hospitalization patient was kept NPO with enteral fees at goal via PEG/J extension, plan to convert feeds to 16 hour cycle on discharge. There was some question of whether his PEG -J-tube was acting appropriately. He underwent a KUB with injection of Gastrografin through the tube: RAD/Abdomen Single View IMPRESSION: No gastric outlet obstruction. No contrast extravasation. G-tube appears to be proper position. He has been eating for several days and he needs to get his esophageal stent removed or replaced. [facility] Medical History Non-smoker History of pacemaker Diabetes mellitus GERD (gastroesophageal reflux disease) Kidney stone BPH (benign prostatic hyperplasia) 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 with hyperglycemia Obstructive sleep apnea Hyperlipidemia, unspecified Essential (primary) hypertension HFrEF (heart failure with reduced ejection fraction) Sick sinus syndrome Atrial fibrillation Pneumomediastinum Esophageal perforation Debility Home Medications ???Medication ???Instructions ???Recorded ???Last Taken ???Type acetaminophen 160 mg/5 mL oral 640 mg feeding tube Q4H PRN pain 0 4/09/25 Unknown History elixir (scale score 1-3) amoxicillin 200 mg-potassium 22 ml feeding tube Q12H antibiotic 10/08/24 Unknown History clavulanate 28.5 mg/5 mL oral suspension docusate sodium 50 mg/5 mL oral 100 mg feeding tube BID stool 03/26 Unknown History liquid softener esomeprazole magnesium 20 mg 40 mg feeding tube DAILY reflux Unknown History capsule,delayed release (Nexium) fluconazole 40 mg/mL oral 400 mg feeding tube Q24H fungal Unknown History suspension (Diflucan) infection lidocaine 4 % topical patch 1 patch topical Q12H pain 10/08/24 Unknown History morphine 20 mg/5 mL (4 mg/mL) oral 5 mg feeding tube Q4H PRN pain 0 10/08/24 Unknown History solution (scale score 7-10) rivaroxaban 20 mg tablet (Xarelto) 20 mg G-tube DAILY blood thinner 10/08/24 Unknown History Allergy/AdvReac Type Severity Reaction Status Date / Time No Known Allergies Allergy Verified 10/08/24 14:09 Family History Mother CVA (cerebral vascular accident) Father Diabetes Sister Diabetes Brother Myocardial infarction Brother CAD (coronary artery disease) Brother Kidney disease Brother Diabetes Surgical History Hx of detached retina repair History of knee replacement procedure of left knee History of back surgery History of electrophysiologic study History of exam under anesthesia with epidural steroid injection Status post biventricular cardiac pacemaker insertion Social History household members: significant other Smoking Status: Never smoker alcohol intake: never substance use type: does not use ROS Constitutional Constitutional: Denies fatigue, fever(s), poor appetite, weight gain or weight loss Gastrointestinal Gastrointestinal: Denies belching, bloating, change in bowel habits, change in stool character, chewing difficulty, coffee ground emesis, constipation, cramping, diarrhea, dyspepsia, dysphagia, early satiety, excessive flatus, fecal incontinence, heartburn, hematemesis, hematochezia, hemorrhoids, loose stools, melena, nausea, odynophagia, rectal bleeding, tenesmus, vomiting or weight changes Vital Signs Vital Signs Vital Signs: 10/22/24 15:02 10/22/24 15:02 Temper (more content not included)... [facility] 10-08-2024 Note [facility] Medical Records Department [address] [place] [address] History Physical Exam 10/08/24 1909 MR#: [id number] Acct: [id number] Name: ROCIO SANDOVAL Rep #: [id number] : 1945 79 From: Cristopher Washington MD PCP: Dr. Santi Anne MD Status:ADM IN Location: [facility] TCU06-1 HPI - General General Date of Admission: 10/08/24 Date of Service: 10/08/24 Chief Complaint: Here for rehabilitation. HPI Narrative 09/26/2024 Admit to [facility]. ROCIO SANDOVAL, is a 79 Male with history of hypertension, HFrEF, ALISHA, Diabetes Mellitus II, sick sinus syndrome who presented for TV pacer extraction with upgrade to [employer] REP-P biventricular pacer. 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 Patient underwent ANTONIETTA intraoperatively. Postoperatively had a chest X-ray performed demonstrating possible pneumomediastinum. He had noncontrasted CT chest demonstrating pneumomediastinum. Patient had a CT chest with IV and PO contrast demonstrating a perforation at the posterior aspect of the GEJ concerning for esophageal perforation/injury. He underwent EGD with esophageal stent placement 150 x 23 distal end at 40cm and PET tube placement on 09/27/2024. 09/30/2024: transferred to [facility]. Self removal of NGT. Na 146. 10/01/2024: IR consulted for G-J conversion. Na 148. 10/02/2024: IR G-J conversion completed. Unsuccessful attempt at TF initiation 08/03 equipment. Na 151-D5 water ordered for mIVF. 10/03/2024: tube feeds initiated. Na 153. Over his hospitalization patient was kept NPO with enteral fees at goal via PEG/J extension, plan to convert feeds to 16 hour cycle on discharge. He will remain NPO after discharge with occasional ice chips and mouth swabs. ATB: Converted to liquid regimen of Fluconazole and Augmentin on discharge for total course of 14 days. 10/06/2024 NAEO. Hypernatremia resolved with free water flushes via J tube. NPO for esophageal perforation. Continue Zosyn, Fluconazole for emperic coverage. Protonix 40mg daily. TF increase to 65mL/hour as tolerated. Tylenol, Gabapentin 1200mg tid, Lidoderm, Voltaren gel, Dilaudid for low back pain. Home Xarelto for DVT prophylaxis. 10/08/2024 Admit to TCU with debility, here for rehabilitation, strengthening, prior to discharge home with SO. [facility] Medical History (Updated 10/08/24 @ 19:[address] Cristopher Washington MD) GERD (gastroesophageal reflux disease) Kidney stone BPH (benign prostatic hyperplasia) 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 with hyperglycemia Obstructive sleep apnea Hyperlipidemia, unspecified Essential (primary) hypertension HFrEF (heart failure with reduced ejection fraction) Sick sinus syndrome Atrial fibrillation Pneumomediastinum Esophageal perforation Debility Home Medications ???Medication ???Instructions ???Recorded ???Last Taken ???Type acetaminophen 160 mg/5 mL oral 640 mg feeding tube Q4H PRN pain 0 10/08/24 Unknown History elixir (scale score 1-3) amoxicillin 200 mg-potassium 22 ml feeding tube Q12H antibiotic 10/08/24 Unknown History clavulanate 28.5 mg/5 mL oral suspension docusate sodium 50 mg/5 mL oral 100 mg feeding tube BID stool 03/26 Unknown History liquid softener esomeprazole magnesium 20 mg 40 mg feeding tube DAILY reflux Unknown History capsule,delayed release (Nexium) fluconazole 40 mg/mL oral 400 mg feeding tube Q24H fungal Unknown History suspension (Diflucan) infection lidocaine 4 % topical patch 1 patch topical Q12H pain 10/08/24 Unknown History morphine 20 mg/5 mL (4 mg/mL) oral 5 mg feeding tube Q4H PRN pain 0 10/08/24 Unknown History solution (scale score 7-10) rivaroxaban 20 mg tablet (Xarelto) 20 mg G-tube DAILY blood thinner 10/08/24 Unknown History Allergy/AdvReac Type Severity Reaction Status Date / Time No Known Allergies Allergy Verified 10/08/24 14:09 Family History (Updated 10/08/24 @ 19:[address] Cristopher Washington MD) Mother CVA (cerebral vascular accident) Father Diabetes Sister Diabetes Brother Myocardial infarction Brother CAD (coronary artery disease) Brother Kidney disease Brother Diabetes Surgical History (Updated 10/08/24 @ 19:[address] Cristopher Washington MD) History of electrophysiologic study History of exam under anesthesia with epidural steroid injection Status post biventricular cardiac pacemaker insertion Social History (Updated 10/08/24 @ 19:[address] Cristopher Washington MD) household members: significant other Smoking Status: Never smoker alcohol intake: never substance use type: does not use ROS Constitutional Constitutional: Reports weakness; Denies chills, fever(s) or weight gain ENT HEENT: Denies headache(s), nasal congestion or nasal discharge Cardiovascular Cardiovascular: Denies chest pain or palpitations Respira (more content not included)... [facility] 10-08-2024 Miscellaneous Notes [facility] Problem: Pain - Adult Goal: Verbalizes/displays adequate comfort level or baseline comfort level Outcome: Adequate for Discharge Problem: Safety - Adult Goal: Free from fall injury Outcome: Adequate for Discharge Problem: Discharge Planning Goal: Discharge to home or other facility with appropriate resources Outcome: Adequate for Discharge Problem: Chronic Conditions and Co-morbidities Goal: Patient's chronic conditions and co-morbidity symptoms are monitored and maintained or improved Outcome: Adequate for Discharge Problem: Nutrition Goal: Nutrient intake appropriate for maintaining nutritional needs Outcome: Adequate for Discharge Problem: Skin Goal: Decreased wound size/increased tissue granulation at next dressing change Outcome: Adequate for Discharge Goal: Participates in plan/prevention/treatment measures Outcome: Adequate for Discharge Goal: Prevent/manage excess moisture Outcome: Adequate for Discharge Goal: Prevent/minimize sheer/friction injuries Outcome: Adequate for Discharge Goal: Promote/optimize nutrition Outcome: Adequate for Discharge Goal: Promote skin healing Outcome: Adequate for Discharge Problem: Diabetes Goal: Achieve decreasing blood glucose levels by end of shift Outcome: Adequate for Discharge Goal: Increase stability of blood glucose readings by end of shift Outcome: Adequate for Discharge Goal: Decrease in ketones present in urine by end of shift Outcome: Adequate for Discharge Goal: Maintain electrolyte levels within acceptable range throughout shift Outcome: Adequate for Discharge Goal: Maintain glucose levels >70mg/dl to <250mg/dl throughout shift Outcome: Adequate for Discharge Goal: No changes in neurological exam by end of shift Outcome: Adequate for Discharge Goal: Learn about and adhere to nutrition recommendations by end of shift Outcome: Adequate for Discharge Goal: Vital signs within normal range for age by end of shift Outcome: Adequate for Discharge Goal: Increase self care and/or family involovement by end of shift Outcome: Adequate for Discharge Goal: Receive DSME education by end of shift Outcome: Adequate for Discharge The patient's goals for the shift include to remain comfortable and safe The clinical goals for the shift include Pt will remain HDS and safe during shift Problem: Pain - Adult Goal: Verbalizes/displays adequate comfort level or baseline comfort level Outcome: Progressing Problem: Safety - Adult Goal: Free from fall injury Outcome: Progressing Problem: Discharge Planning Goal: Discharge to home or other facility with appropriate resources Outcome: Progressing Problem: Nutrition Goal: Nutrient intake appropriate for maintaining nutritional needs Outcome: Progressing Problem: Skin Goal: Decreased wound size/increased tissue granulation at next dressing change Outcome: Progressing Flowsheets (Taken 09/30/2024342 by Caden Alves RN) Decreased wound size/increased tissue granulation at next dressing change: Promote sleep for wound healing Protective dressings over bony prominences Goal: Participates in plan/prevention/treatment measures Outcome: Progressing Flowsheets (Taken 10/08/2024508) Participates in plan/prevention/treatment measures: Elevate heels Goal: Prevent/manage excess moisture Outcome: Progressing Flowsheets (Taken 10/08/2024508) Prevent/manage excess moisture: Cleanse incontinence/protect with barrier cream Goal: Prevent/minimize sheer/friction injuries Outcome: Progressing Flowsheets (Taken 10/08/2024508) Prevent/minimize sheer/friction injuries: Increase activity/out of bed for meals Complete micro-shifts as needed if patient unable. Adjust patient position to relieve pressure points, not a full turn Turn/reposition every 2 hours/use positioning/transfer devices HOB 30 degrees or less Goal: Promote/optimize nutrition Outcome: Progressing Flowsheets (Taken 10/08/2024508) Promote/optimize nutrition: Monitor/record intake including meals Goal: Promote skin healing Outcome: Progressing Flowsheets (Taken 10/08/2024 9899) Promote skin healing: Turn/reposition every 2 hours/use positioning/transfer devices Problem: Diabetes Goal: Achieve decreasing blood glucose levels by end of shift Outcome: Progressing Goal: Increase stability of blood glucose readings by end of shift Outcome: Progressing Goal: Decrease in ketones present in urine by end of shift Outcome: Progressing Goal: Maintain electrolyte levels within acceptable range throughout shift Outcome: Progressing Goal: Maintain glucose levels >70mg/dl to <250mg/dl throughout shift Outcome: Progressing Goal: No changes in neurological exam by end of shift Outcome: Progressing Goal: Learn about and adhere to nutrition recommendations by end of shift Outcome: Progressing Goal: Vital signs within normal range for age by end of shift Outcome: Progressing Goal: Increase self care and/or family involovement by end of shift Outcome: Progressing Goal: Receive DSME education by end of shift Outcome: Progressing Problem: Diabetes Goal: Achieve decreasing blood glucose levels by end of shift Outcome: Progressing Goal: Increase stability of blood glucose readings by end of shift Outcome: Progressing Goal: Decrease in ketones present in urine by end of shift Outcome: Progressing Goal: Maintain electrolyte levels within acceptable range throughout shift Outcome: Progressing Goal: Maintain glucose levels >70mg/dl to <250mg/dl throughout shift Outcome: Progressing Goal: No changes in neurological exam by end of shift Outcome: Progressing Goal: Learn about and adhere to nutrition recommendations by end of shift Outcome: Progressing Goal: Vital signs within normal range for age by end of shift Outcome: Progressing Goal: Increase self care and/or family involovement by end of shift Outcome: Progressing Goal: Receive DSME education by end of shift Outcome: Progressing Problem: Pain - Adult Goal: Verbalizes/displays adequate comfort level or baseline comfort level Outcome: Progressing Problem: Safety - Adult Goal: Free from fall injury Outcome: Progressing Problem: Discharge Planning Goal: Discharge to home or other facility with appropriate resources Outcome: Progressing Problem: Chronic Conditions and Co-morbidities Goal: Patient's chronic conditions and co-morbidity symptoms are monitored and maintained or improved Outcome: Progressing Problem: Nutrition Goal: Nutrient intake appropriate for maintaining nutritional needs Outcome: Progressing Problem: Skin Goal: Decreased wound size/increased tissue granulation at next dressing change Outcome: Progressing Goal: Participates in plan/prevention/treatment measures Outcome: Progressing Goal: Prevent/manage excess moisture Outcome: Progressing Flowsheets (Taken 10/07/2024 1148) Prevent/manage excess moisture: Moisturize dry skin Goal: Prevent/minimize sheer/friction injuries Outcome: Progressing Goal: Promote/optimize nutrition Outcome: Progressing Goal: Promote skin healing Outcome: Progressing Problem: Diabetes Goal: Achieve decreasing blood glucose levels by end of shift Outcome: Progressing Goal: Increase stability of blood glucose readings by end of shift Outcome: Progressing Goal: Decrease in ketones present in urine by end of shift Outcome: Progressing Goal: Maintain electrolyte levels within acceptable range throughout shift Outcome: Progressing Goal: Maintain glucose levels >70mg/dl to <250mg/dl throughout shift Outcome: Progressing Goal: No changes in neurological exam by end of shift Outcome: Progressing Goal: Learn about and adhere to nutrition recommendations by end of shift Outcome: Progressing Goal: Vital signs within normal range for age by end of shift Outcome: Progressing Goal: Increase self care and/or family involovement by end of shift Outcome: Progressing Goal: Receive DSME education by end of shift Outcome: Progressing Problem: Pain - Adult Goal: Verbalizes/displays adequate comfort level or baseline comfort level Outcome: Progressing Problem: Safety - Adult Goal: Free from fall injury Outcome: Progressing Problem: Discharge Planning Goal: Discharge to home or other facility with appropriate resources Outcome: Progressing Problem: Chronic Conditions and Co-morbidities Goal: Patient's chronic conditions and co-morbidity symptoms are monitored and maintained or improved Outcome: Progressing Problem: Nutrition Goal: Nutrient intake appropriate for maintaining nutritional needs Outcome: Progressing Problem: Skin Goal: Decreased wound size/increased tissue granulation at next dressing change Outcome: Progressing Goal: Participates in plan/prevention/treatment measures Outcome: Progressing Goal: Prevent/manage excess moisture Outcome: Progressing Flowsheets (Taken 10/06/2024 1036) Prevent/manage excess moisture: Moisturize dry skin Goal: Prevent/minimize sheer/friction injuries Outcome: Progressing Goal: Promote/optimize nutrition Outcome: Progressing Goal: Promote skin healing Outcome: Progressing Problem: Diabetes Goal: Achieve decreasing blood glucose levels by end of shift Outcome: Progressing Goal: Increase stability of blood glucose readings by end of shift Outcome: Progressing Goal: Decrease in ketones present in urine by end of shift Outcome: Progressing Goal: Maintain electrolyte levels within acceptable range throughout shift Outcome: Progressing Goal: Maintain glucose levels >70mg/dl to <250mg/dl throughout shift Outcome: Progressing Goal: No changes in neurological exam by end of shift Outcome: Progressing Goal: Learn about and adhere to nutrition recommendations by end of shift Outcome: Progressing Goal: Vital signs within normal range for age by end of shift Outcome: Progressing Goal: Increase self care and/or family involovement by end of shift Outcome: Progressing Goal: Receive DSME education by end of shift Outcome: Progressing Problem: Pain - Adult Goal: Verbalizes/displays adequate comfort level or baseline comfort level Outcome: Progressing Problem: Safety - Adult Goal: Free from fall injury Outcome: Progressing Problem: Discharge Planning Goal: Discharge to home or other facility with appropriate resources Outcome: Progressing Problem: Chronic Conditions and Co-morbidities Goal: Patient's chronic conditions and co-morbidity symptoms are monitored and maintained or improved Outcome: Progressing Problem: Nutrition Goal: Nutrient intake appropriate for maintaining nutritional needs Outcome: Progressing Problem: Skin Goal: Decreased wound size/increased tissue granulation at next dressing change Outcome: Progressing Goal: Participates in plan/prevention/treatment measures Outcome: Progressing Goal: Prevent/manage excess moisture Outcome: Progressing Goal: Prevent/minimize sheer/friction injuries Outcome: Progressing Goal: Promote/optimize nutrition Outcome: Progressing Goal: Promote skin healing Outcome: Progressing Problem: Diabetes Goal: Achieve decreasing blood glucose levels by end of shift Outcome: Progressing Goal: Increase stability of blood glucose readings by end of shift Outcome: Progressing Goal: Decrease in ketones present in urine by end of shift Outcome: Progressing Goal: Maintain electrolyte levels within acceptable range throughout shift Outcome: Progressing Goal: Maintain glucose levels >70mg/dl to <250mg/dl throughout shift Outcome: Progressing Goal: No changes in neurological exam by end of shift Outcome: Progressing Goal: Learn about and adhere to nutrition recommendations by end of shift Outcome: Progressing Goal: Vital signs within normal range for age by end of shift Outcome: Progressing Goal: Increase self care and/or family involovement by end of shift Outcome: Progressing Goal: Receive DSME education by end of shift Outcome: Progressing The clinical goals for the shift include safety Problem: Skin Goal: Prevent/minimize sheer/friction injuries Flowsheets (Taken 10/03/2024 0313) Prevent/minimize sheer/friction injuries: Complete micro-shifts as needed if patient unable. Adjust patient position to relieve pressure points, not a full turn Increase activity/out of bed for meals Use pull sheet The patient's goals for the shift include The clinical goals for the shift include safety Over the shift, the patient did make progress toward the following goals. Recommendations to address these barriers include increase frequency of out of bed. Problem: Pain - Adult Goal: Verbalizes/displays adequate comfort level or baseline comfort level Outcome: Progressing Problem: Nutrition Goal: Nutrient intake appropriate for maintaining nutritional needs Outcome: Progressing The patient's goals for the shift include The clinical goals for the shift include safety Over the shift, the patient did not make progress toward the following goals. Barriers to progression include tolerance of feeding. Recommendations to address these barriers include slow increase in amount of feedings given . Interventional Radiology Post-Procedure Note Jejunostomy tube placed through G tube Procedure Details: Technically successful and uncomplicated placement of a jujenostomy tube through the G tube. There is no G port to access. We must wait approximately 2-4 weeks until tract matures to replace with a true gastrojujenostomy tube. Jport can be used for enteric feeding in the meantime. Please see PACS for full procedural details. Patient Tolerance: good Complications: None Indication for procedure: The primary encounter diagnosis was Sick sinus syndrome (Multi). Diagnoses of Pacing-induced cardiomyopathy (Multi), Subclavian vein stenosis, SSS (sick sinus syndrome) (Multi), Esophageal perforation, Generalized edema, Heart failure with mildly reduced ejection fraction (HFmrEF), Presence of cardiac pacemaker, and Other specified soft tissue disorders were also pertinent to this visit. Pre-Procedure Verification and Time Out: Procedure Location procedure area HUDDLE - Pre-procedure Verification completed TIME OUT - Final Verification completed immediately prior to procedure start DEBRIEF completed General Information: Date/Time of Procedure: 10/02/24 at 5:39 PM Indication(s): enteric feeding Findings: See PACS Procedure performed by: Dominick Howard MD Fruit Sprayer(s): Dr. Reji Mcqueen MD Estimated Blood Loss (mL): none Specimen: No Informed Consent: written consent obtained Prep: Ultrasound Guided Insertion: No Large Drape, Hand Hygiene, Surgical Cap, Surgical Mask, Sterile Gown, Sterile Gloves, Glasses, and Scrubs Patient Position: Supine Site Prep: chlorhexidine, draped, usual sterile procedure followed Anesthesia/Medications: Procedural Sedation: None Dominick Howard MD, PGY-6 Interventional Radiology IR pager: [phone] NON-Urgent business liaison manager weekends and after hours weekdays (5pm - 5am) IR pager: [phone] Urgent & emergent business liaison manager weekends and after hours weekdays (5pm-7am) IR pager: [phone] Interventional Radiology Preprocedure Note Procedure: IR G to GJ Tube exchange Indication for procedure: Hiatal hernia, concern for aspiration Diagnosis: The primary encounter diagnosis was Sick sinus syndrome (Multi). Diagnoses of Pacing-induced cardiomyopathy (Multi), Subclavian vein stenosis, SSS (sick sinus syndrome) (Multi), Esophageal perforation, Generalized edema, Heart failure with mildly reduced ejection fraction (HFmrEF), and Presence of cardiac pacemaker were also pertinent to this visit. Relevant review of systems: NA Relevant Labs: Lab Results Component Value Date CREATININE 0.92 10/02/2024 EGFR 84 10/02/2024 INR 1.4 (H) 03/16/2023 PROTIME 16.4 (H) 03/16/2023 Planned Sedation/Anesthesia: Moderate Airway assessment: normal Directed physical examination: A&Ox3 No evidence of respiratory distress Mallampati: III (soft and hard palate and base of uvula visible) ASA Score: ASA 3 - Patient with moderate systemic disease with functional limitations Benefits, risks and alternatives of procedure and planned sedation have been discussed with the patient and/or their termite control representative. All questions answered and they agree to proceed. Gerry Chen DO, PGY-3 Diagnostic Radiology [facility] Transfer Note Hospital Course: Rocio Sandoval is a 79 y.o. male with history of afib, sick sinus syndrome, HFmrEF, HTN, HLD, ALISHA, T2DM admitted following elective CIED transvenous extraction and upgrade to [employer] PROPERTY CLAIM REP-P for pacemaker induced cardiomyopathy, admitted to CICU for post procedural monitoring. Following procedure was found to have esophageal perforation with pneumomediastinum on CXR confirmed by subsequent CT chest noncon and CT chest w PO con. Thoracic surgery was consulted and patient taken to OR on 09/27 for EGD with stent placement and PEG placement. He was started on empiric zosyn and fluconazole on 09/27. Updates 09/30: Patient still with significant abdominal pain. KUB XR with nonobstructive bowel gas pattern. Patient also self-removed NGT overnight, thoracic notified and instructed to hold off on replacing NGT. Bisacodyl suppository x2 given however no BM. Will give tap water enema this AM. Also will give 1L fluid given hypernatremia and NPO for several days. Per thoracic, will cap PEG tube and vent every 3-4hrs, plan for esophagram tomorrow. Follow-up: [ ] Follow up EP if any changes necessary to new pacemaker or interrogations [ ] NO anticoagulation for 4 days after pacemaker unless otherwise indicated by EP (resume 10/01) [ ] No lifting of L arm above shoulder for 4-5 weeks after EP procedure [ ] Resume oral medications and nutrition when able depending on thoracic surgery [ ] Follow up RFP for hypernatremia, likely due to NPO for several days [ ] Decide when to stop empiric abx (fluconazole/zosyn 09/27-) for esophageal perforation Assessment/Plan from 09/30: Rocio Sandoval is a 79 y.o. male with history of afib, sick sinus syndrome, HFmrEF, HTN, HLD, ALISHA, T2DM admitted following elective CIED transvenous extraction and upgrade to Medtronic PROPERTY CLAIM REP-P for pacemaker induced cardiomyopathy, admitted to CICU for post procedural monitoring. Following procedure was found to have esophageal perforation with pneumomediastinum on CXR confirmed by subsequent CT chest noncon and CT chest w PO con. Thoracic surgery was consulted and patient taken to OR on 09/27 for EGD with stent placement and PEG placement. He was started on empiric zosyn and fluconazole on 09/27. 09/30/24 Updates: - NGT removed by patient overnight. Thoracic surgery aware - Pain regimen: scheduled IV tylenol 1g q6h, IV morphine 4mg q3h PRN - Cap PEG, vent q3-4hrs. - NO PO or enteral diet or PO meds unless otherwise indicated by thoracic surgery team - IV hydralazine 10mg q8h PRN for SBP>180 IF BP does not improve with pain medications. Hypertension likely related to pain. - 1L LR for his hypernatremia, will monitor with BID RFP - Pending transfer to the floor to thoracic surgery, pending bed availability - Bowel regiment: Received bisacodyl suppository x2 but no BM. Will give tap water enema this AM. Neuro #Headaches - Prescribed prednisone taper by PCP on 09/18, transitioned to IV methylpred while NPO and completed. Cardiology #Permanent afib #Sick sinus syndrome #Pacemaker induced cardiomyopathy #Post CIED transvenous extraction, and upgrade to Medtronic PROPERTY CLAIM REP-P :: Underwent transvenous lead extraction of medtronic dual chamber pacemaker and implant of medtronic biventricular pacemaker on 09/26 with EP Plan: - Prophylactic abx with cefadroxil 500mg BID x 7 days (09/26-09/27), escalated to zosyn/fluconazole (09/27-) for esophageal perforation - Off amiodarone - EP following, appreciate recs #HFmrEF :: TTE from 04/2024 with LV EF at 42% declined from prior echo 06/2021, global hypokinesis of LV - Home regiment: PO lasix 20mg every other day, jardiance 25mg daily, HOLD in setting of esophageal perforation #HTN - Likely related to pain in setting of esoph perf and stent placement - Start IV hydralazine 10mg q8h PRN for SBP>180 if not responsive to pain medications or other symptom management Pulmonary - No acute issues, on NC O2 post procedure while coming off sedation. Will wean. Renal #Hypernatremia - In setting of strict NPO for several days - 1L LR today, monitor RFP BID GI #Esophageal perforation following ANTONIETTA s/p EGD with stent placement and PEG placement on 09/27 :: CXR/CT chest/CT chest w PO contrast after procedure on 09/26 concerning for pneumomediastinum and esophageal perforation Plan: - Thoracic following, unbridled NG, currently intermittent wall suction with output, symptom improvement - Pain regimen: scheduled IV tylenol 1g q6h, IV morphine 4mg q3h PRN - Zosyn and fluconazole (09/27-) for empiric coverage - PPI with protonix 40 daily - Strict NPO unless otherwise indicated by thoracic surgery Endocrinology #T2DM :: Prior A1C from 04/2024: 6.7% - Home regimen of metformin 750 BID, empagliflozin 25mg (for HF) - SSI q6h MSK #Chronic back pain #Lumbar radiculopathy :: Previously unsuccessful with conservative treatments, has undergone epidural steroid injections :: Home regiment for pain management with tylenol and gabapentin - Home gabapentin 1200 TID (HELD) - lidocaine patch, voltaren gel PRN, IV tylenol and IV morphine 4mg q3h PRN while NPO ID #Esophageal perforation - Prophylactic abx with cefadroxil 500mg BID x7 days (09/26-) post EP procedure now discontinued - Zosyn and fluconazole (09/27-) for empiric coverage F: PRN E: Replete PRN for K<4, Mg<2 N: NPO - NO enteral nutrition or oral meds through NGT, PEG, PO A: pIV DVT ppx: Contraindicated due to EP procedure, can resume prophylaxis 10/01 GI ppx: Bisacodyl suppository nightly, tap water/soap suds enemas The patient's goals for the shift include Problem: Pain - Adult Goal: Verbalizes/displays adequate comfort level or baseline comfort level Outcome: Progressing Problem: Safety - Adult Goal: Free from fall injury Outcome: Progressing Problem: Skin Goal: Decreased wound size/increased tissue granulation at next dressing change Outcome: Progressing Flowsheets (Taken 09/30/2024 5943) Decreased wound size/increased tissue granulation at next dressing change: Promote sleep for wound healing Protective dressings over bony prominences Goal: Participates in plan/prevention/treatment measures Outcome: Progressing Flowsheets (Taken 09/30/2024342) Participates in plan/prevention/treatment measures: Discuss with provider PT/OT consult Elevate heels Goal: Prevent/manage excess moisture Outcome: Progressing Flowsheets (Taken 09/30/2024342) Prevent/manage excess moisture: Monitor for/manage infection if present Cleanse incontinence/protect with barrier cream Goal: Prevent/minimize sheer/friction injuries Outcome: Progressing Flowsheets (Taken 09/30/2024342) Prevent/minimize sheer/friction injuries: Complete micro-shifts as needed if patient unable. Adjust patient position to relieve pressure points, not a full turn Use pull sheet Turn/reposition every 2 hours/use positioning/transfer devices HOB 30 degrees or less Goal: Promote/optimize nutrition Outcome: Progressing Flowsheets (Taken 09/30/2024342) Promote/optimize nutrition: Monitor/record intake including meals Goal: Promote skin healing Outcome: Progressing Flowsheets (Taken 09/30/2024342) Promote skin healing: Assess skin/pad under line(s)/device(s) Turn/reposition every 2 hours/use positioning/transfer devices Protective dressings over bony prominences The clinical goals for the shift include pt will have decrease in pain level and have bowel movement this shift Over the shift, the patient did not make progress toward the following goals. Problem: Pain - Adult Goal: Verbalizes/displays adequate comfort level or baseline comfort level Outcome: Progressing Problem: Safety - Adult Goal: Free from fall injury Outcome: Progressing Flowsheets (Taken 09/29/20241450) Free from fall injury: Instruct family/caregiver on patient safety Problem: Chronic Conditions and Co-morbidities Goal: Patient's chronic conditions and co-morbidity symptoms are monitored and maintained or improved Outcome: Progressing Problem: Nutrition Goal: Nutrient intake appropriate for maintaining nutritional needs Outcome: Progressing Problem: Skin Goal: Decreased wound size/increased tissue granulation at next dressing change Outcome: Progressing Flowsheets (Taken 09/29/20241450) Decreased wound size/increased tissue granulation at next dressing change: Protective dressings over bony prominences Goal: Participates in plan/prevention/treatment measures Outcome: Progressing Goal: Prevent/manage excess moisture Outcome: Progressing Goal: Prevent/minimize sheer/friction injuries Outcome: Progressing Goal: Promote/optimize nutrition Outcome: Progressing Goal: Promote skin healing Outcome: Progressing The clinical goals for the shift include Pt will have decrease in pain level. Problem: Pain - Adult Goal: Verbalizes/displays adequate comfort level or baseline comfort level Outcome: Progressing Problem: Safety - Adult Goal: Free from fall injury Outcome: Progressing Flowsheets (Taken 09/29/2024 1451) Free from fall injury: Instruct family/caregiver on patient safety Problem: Chronic Conditions and Co-morbidities Goal: Patient's chronic conditions and co-morbidity symptoms are monitored and maintained or improved Outcome: Progressing Problem: Nutrition Goal: Nutrient intake appropriate for maintaining nutritional needs Outcome: Progressing The clinical goals for the shift include Pt will have decrease in pain level. The clinical goals for the shift include Patient will remain HDS throughout the shift. Problem: Pain - Adult Goal: Verbalizes/displays adequate comfort level or baseline comfort level Outcome: Progressing Problem: Safety - Adult Goal: Free from fall injury Outcome: Progressing Problem: Discharge Planning Goal: Discharge to home or other facility with appropriate resources Outcome: Progressing Problem: Chronic Conditions and Co-morbidities Goal: Patient's chronic conditions and co-morbidity symptoms are monitored and maintained or improved Outcome: Progressing Problem: Nutrition Goal: Nutrient intake appropriate for maintaining nutritional needs Outcome: Progressing ICU to [facility] Transfer Summary I: ICU Admission Reason & Brief ICU Course: Rocio Sandoval is a 79 y.o. male with history of afib, sick sinus syndrome, HFmrEF, HTN, HLD, ALISHA, T2DM admitted following elective CIED transvenous extraction and upgrade to Medtronic PROPERTY CLAIM REP-P for pacemaker induced cardiomyopathy, admitted to CICU for post procedural monitoring. Following procedure was found to have esophageal perforation with pneumomediastinum on CXR confirmed by subsequent CT chest noncon and CT chest w PO con. Thoracic surgery was consulted and patient taken to OR on 09/27 for EGD with stent placement and PEG placement. He was started on empiric zosyn and fluconazole on 09/27. Follow-up: [ ] Follow up EP if any changes necessary to new pacemaker or interrogations [ ] NO anticoagulation unless otherwise indicated by EP [ ] No lifting of L arm above shoulder for 4-5 weeks after EP procedure [ ] Resume oral medications when able depending on thoracic surgery C: Code Status/DPOA Info/Goals of Care/ACP Note Full Code DPOA/Contact Number: Suellen (daughter) [phone] U: Unprescribing & Pertinent High-Risk Medications Changes to home meds: Discontinued amiodarone per EP Anticoagulation: No Reason for no VTE prophylaxis:procedure not indicated Antibiotics: Zosyn and fluconazole (09/27-) for empiric coverage for esophageal perforation P: Pending Tests at the Time of Transfer N/A A: Active consultants, including Rehab: [x] Subspecialty Consultants: EP [] PT [] OT [] DATA CENTER PROJECT MANAGER [] Wound Care U: Uncertainty Measure/Diagnostic Pause: N/A S: Summary of Major Problems and To-Dos: Updates 09/28: - Thoracic surgery following - NGT to LIWS, PEG to neumann and gravity - NO PO or enteral diet or PO meds unless otherwise indicated by thoracic surgery team - Will consider transfer to floor if OK with thoracic surgery Neuro #Headaches - Prescribed prednisone taper by PCP on 09/18, transitioned to IV methylpred while NPO Cardiology #Permanent afib #Sick sinus syndrome #Pacemaker induced cardiomyopathy #Post CIED transvenous extraction, and upgrade to Medtronic PROPERTY CLAIM REP-P :: Underwent transvenous lead extraction of medtronic dual chamber pacemaker and implant of medtronic biventricular pacemaker on 09/26 with EP Plan: - Prophylactic abx with cefadroxil 500mg BID x 7 days (09/26-09/27), escalated to zosyn (09/27-) for esophageal perforation - Discontinued amiodarone - EP following #HFmrEF :: TTE from 04/2024 with LV EF at 42% declined from prior echo 06/2021, global hypokinesis of LV - Home regiment: PO lasix 20mg every other day, jardiance 25mg daily, HOLD in setting of esophageal perforation Pulmonary - No acute issues, on NC O2 post procedure while coming off sedation. Will wean. Renal - No acute issues, will obtain baseline labs GI #Esophageal perforation following ANTONIETTA s/p EGD with stent placement and PEG placement on 09/27 :: CXR/CT chest/CT chest w PO contrast after procedure on 09/26 concerning for pneumomediastinum and esophageal perforation Plan: - Thoracic following - Zosyn and fluconazole (09/27-) for empiric coverage - PPI with protonix 40 daily - Strict NPO unless otherwise indicated by thoracic surgery Endocrinology #T2DM :: Prior A1C from 04/2024: 6.7% - Home regiment of metformin 750 BID, empagliflozin 25mg (for HF) - SSI if on diet MSK #Chronic back pain #Lumbar radiculopathy :: Previously unsuccessful with conservative treatments, has undergone epidural steroid injections :: Home regiment for pain management with tylenol and gabapentin - Home gabapentin 1200 TID (HELD) - lidocaine patch, voltaren gel PRN, IV tylenol and dilaudid 0.4 q4h while NPO ID #Esophageal perforation - Prophylactic abx with cefadroxil 500mg BID x7 days (09/26-) post EP procedure now discontinued - Zosyn and fluconazole (09/27-) for empiric coverage F: PRN E: Replete PRN for K<4, Mg<2 N: NPO - NO enteral nutrition or oral meds through NGT, PEG, PO A: pIV DVT ppx: Contraindicated due to EP procedure unless otherwise specified by EP GI ppx: miralax PRN for bowel regiment E: Exam, including Lines/Drains/Airways & Data Review: Difficult airway? N/A Lines/drains assessed for removal? No - arterial line to be removed prior to transfer Within 30 minutes of the patient physically leaving the floor, a Floor Readiness Note needs to be placed with updated vitals. Rocio Sandoval is a 79 y.o. male with history of afib, sick sinus syndrome, HFmrEF, HTN, HLD, ALISHA, T2DM admitted following elective CIED transvenous extraction and upgrade to Medtronic PROPERTY CLAIM REP-P for pacemaker induced cardiomyopathy, admitted to CICU for post procedural monitoring. Following procedure was found to have esophageal perforation with pneumomediastinum on CXR confirmed by subsequent CT chest noncon and CT chest w PO con. Thoracic surgery was consulted and patient taken to OR on 09/27 for EGD with stent placement and PEG placement. He was started on empiric zosyn and fluconazole on 09/27. Follow-up: [ ] Follow up EP if any changes necessary to new pacemaker [ ] No lifting of L arm above shoulder for 4-5 weeks after EP procedure [ ] Resume oral medications when able depending on thoracic surgery EGD, Possible Stent Placement, Possible VATS, Possible Laparoscopy, Possible Paraesophageal Hernia Repair, Possible PEG Tube Placement Operative Note Date: 09/27/2024 OR Location: [facility] OR Name: Rocio Sandoval, : 1945, Age: 79 y.o., , Sex: male Diagnosis Pre-op Diagnosis * Esophageal perforation [K22.3] Post-op Diagnosis * Esophageal perforation [K22.3] Procedures EGD, PEG tube placement, esophageal stent placement Surgeons * Monserrat Nash - Primary Resident/Fellow/Other Fruit Sprayer: Surgeons and Role: * Darek Palmer MD - Resident - Assisting Staff: Assessment Analyst: Dione Assessment Analyst: Temo Medellin Person: Priya Siuub Person: Elías Assessment Analyst: Temo Medellin Person: Priya Anesthesia Staff: Anesthesiologist: Aguilar Fairchild MD Manager Membership: Camila Asher DO Procedure Summary Anesthesia: General ASA: III Estimated Blood Loss: 20mL Intra-op Medications: Administrations occurring from 0900 to 1005 on 09/27/24: Medication Name Total Dose cefadroxil (Duricef) capsule 500 mg Cannot be calculated Anesthesia Record Intraprocedure I/O Totals Intake LR infusion 600.00 mL Total Intake 600 mL Output Est. Blood Loss 5 mL Total Output 5 mL Net Net Volume 595 mL Specimen: No specimens collected Drains and/or Catheters: Gastrostomy/Enterostomy Percutaneous endoscopic gastrostomy (PEG) 1 20 Fr. LUQ (Active) Tourniquet Times: Implants: Implants Type Name Action Serial No. endovive safety PEG kit Implanted Stent STENT, ESOPHAGEAL ENDOMAXX 23MM X 150MM [facility] - [id number] Implanted Findings: Distal esophageal perforation ~34 cm approx 7mm in size, GEJ at 35cm, large hiatal hernia Indications: Rocio Sandoval is an 79 y.o. male who is having surgery for Esophageal perforation [K22.3]. Patient underwent pacemaker lead extraction yesterday with replacement, had a ANTONIETTA during the procedure. Known hiatal hernia. Developed pneumomediastinum post-op, CT with PO IV contrast showed small area of extravasation concerning for perforation. Plan for OR including stent vs operative repair discussed with patient and family and they were agreeable. The patient was seen in the preoperative area. The risks, benefits, 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s, treatment options, non-operative alternatives, expected recovery and outcomes were discussed with the patient. The possibilities of reaction to medication, pulmonary aspiration, injury to surrounding structures, bleeding, recurrent infection, the need for additional procedures, failure to diagnose a condition, and creating a 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 requiring transfusion or operation were discussed with the patient. The patient concurred with the proposed plan, giving informed consent. The site of surgery was properly noted/marked if necessary per policy. The patient has been actively warmed in preoperative area. Preoperative antibiotics have been ordered and given within 1 hours of incision. Venous thrombosis prophylaxis have been ordered including bilateral sequential compression devices Procedure Details: Patient was brought into the operating suite and procedural information was confirmed. General anesthesia was induced and a single-lumen endotracheal tube was placed. We began by performing an EGD, and endoscope insertion the proximal and midesophagus were normal-appearing, distally at approximately 34 cm the patient had a small perforation, measuring just <1cm. This was right above the GE junction which was located at approximately 35 cm. Patient had a large hiatal hernia, the stomach showed small polyps but no other gross abnormalities. We chose a site in the distal stomach, within the intra-abdominal portion, and placed a PEG tube using Ponsky technique with gentle guidance of the PEG through the esophagus under endoscopic visualization. We then carefully placed a wire into the stomach and under endoscopic vision deployed a 23 x 150 mm EndoMaxx stent from 25 to 40 cm covering the perforation. Initially the stent was slightly more proximal and we did use rat-tooth forceps to pull this down to provide slightly more distal coverage below the perforation. At the end however it seemed to be well-expanded and was easily traversable with the scope. The perforation site was well covered. Because of his large hiatal hernia we did place a nasogastric tube for hernia decompression, tube placement within the stent was confirmed under endoscopic guidance. The NG tube was then bridled in place. Endoscope was removed and the patient was extubated. He was taken back to the CICU in stable condition. Complications: None; patient tolerated the procedure well. Disposition: ICU - extubated and stable. Condition: stable Additional Details: NGT to LIWS G-tube to neumann bag for decompression/drainage Strict NPO, likely 2-3 days Start Fluconazole: 800mg today, 400 mg starting tomorrow for 6 additional days Attending Attestation: I was present and scrubbed for the entire procedure. Monserrat Nash Date: 09/27/2024 OR Location: [facility] OR Name: Rocio Sandoval, : 1945, Age: 79 y.o., , Sex: male Diagnosis Pre-op Diagnosis * Esophageal perforation [K22.3] Post-op Diagnosis * Esophageal perforation [K22.3] Procedures EGD, Possible Stent Placement, Possible VATS, Possible Laparoscopy, Possible Paraesophageal Hernia Repair, Possible PEG Tube Placement 98233 - [place] EGD ENDOSCOPIC STENT PLACEMENT W/WIRE& DILATION Surgeons * Monserrat Nash - Primary Resident/Fellow/Other Fruit Sprayer: Surgeons and Role: * Darek Palmer MD - Resident - Assisting Staff: Assessment Analyst: Dione Assessment Analyst: Temo Medellin Person: Priya Scrub Person: Elías Assessment Analyst: Temo Medellin Person: Priya Anesthesia Staff: Anesthesiologist: Aguilar Fairchild MD Manager Membership: Camila Asher DO Procedure Summary Anesthesia: General ASA: ASA status not filed in the log. Estimated Blood Loss: 5mL Intra-op Medications: Administrations occurring from 0900 to 1005 on 09/27/24: Medication Name Total Dose cefadroxil (Duricef) capsule 500 mg Cannot be calculated Anesthesia Record Intraprocedure I/O Totals Intake LR infusion 600.00 mL Total Intake 600 mL Output Est. Blood Loss 5 mL Total Output 5 mL Net Net Volume 595 mL Specimen: No specimens collected Findings: esophageal perforation into R chest at GEJ, PEG tube placed into distal stomach measuring 2.5 cm at skin, set to gravity, 150mm x 23mm stent placed w/ distal end at 40cm from incisions, NG tube bridled and passed through stent set to LIWS Plan: Continue zosyn 7 day course Start fluconazole 7 day course NG to LIWS PEG to gravity Complications: None; patient tolerated the procedure well. Disposition: ICU - extubated and stable. Condition: stable Specimens Collected: No specimens collected Attending Attestation: I was present and scrubbed for the entire procedure. 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] Procedure(s): PPM Lead Extraction, dcPPM Upgrade to PROPERTY CLAIM REP-P, Medtronic, Subclavian is occluded plan for RA extraction 08480 - [place] RMVL TRANSVNS PM ELTRD DUAL LEAD SYS PPM Lead Extraction, dcPPM Upgrade to PROPERTY CLAIM REP-P, Medtronic, Subclavian is occluded plan for RA extraction 05786 - KS REMVL PERM PM PLS GEN W/REPL PLSE GEN MULT LEAD PPM Lead Extraction, dcPPM Upgrade to PROPERTY CLAIM REP-P, Medtronic, Subclavian is occluded plan for RA extraction 06787 - [place] RMVL TRANSVNS PM ELTRD DUAL LEAD SYS Summary: s/p Transvenous Lead Extraction of Medtronic Dual chamber pacemaker (Pulse generator and RA lead) s/p Implant of Medtronic Biventricular pacemaker with Plugged RA lead Recommendation: Please hold all anticoagulation including his home Xarelto and heparin products (Lovenox for DVT ppx) unless otherwise specified by our electrophysiology service. Monitor on telemetry overnight - admitted to CICU Bedrest for 3 hours post sheath removal PA/Lat Chest Xray in AM tomorrow morning Figure-of-8 suture from LFV access to be removed this afternoon If possible, EP will decrease the CS lead output from the current 4.0 mV/0.4 ms to the lower one (the capture threshold was 3.25 mV/0.4 ms in OR). Complications: None Stents/Implants: Implants Pacemaker Stylet, Lead, Pacemaker, Extended Taper, Ball-Tip, 58 Cm - Sna - [id number] - Used, Not Implanted Inventory item: STYLET, LEAD, PACEMAKER, EXTENDED TAPER, BALL-TIP, 58 CM Model/Cat number: [id number] Serial number: NA Power Brake Operator: [employer] Lot number: [id number] Implant Date: 09/26/2024 Description: STYLET KIT ONLY As of 09/26/2024 Status: Used, Not Implanted Lead, Attain Performa, Otw, 88cm Md 4298 - [id number] - Implanted Inventory item: LEAD, ATTAIN PERFORMA, OTW, 88CM MD 4298 Model/Cat number: [id number] Serial number: [id number] Power Brake Operator: [employer] Lot number: [id number] Device identifier: [id number] Implant Date: 09/26/2024 GUDID Information Request status Successful Brand name: Acceptd Performa MRI SureScan Version/Model: [id number] Company name: [employer] MRI safety info as of 09/26/24: MR Conditional Contains dry or latex rubber: No GMDN P.T. name: Coronary venous pacing lead As of 09/26/2024 Status: Implanted Pacemaker, Quad Offal Baler-P Mri Surescan - [id number] - [id number] - Implanted Inventory item: PACEMAKER, QUAD PROPERTY CLAIM REP-P MRI SURESCAN Model/Cat number: [id number] Serial number: [id number] Power Brake Operator: [employer] Implant Date: 09/26/2024 As of 09/26/2024 Status: Implanted Estimated Blood Loss: 20 mL Anesthesia: General Anesthesia Staff: Anesthesiologist: Mika Guaman MD C-AA: LIZZIE Hinson Any Specimen(s) Removed: Order Name Source Comment Collection Info Order Time TYPE AND SCREEN Blood, Venous Collected By: Kimberly Bryant RN 09/26/2024 7:06 AM Release result to [facility] Immediate Disposition: CICU Electronically signed by: Janneth Yanez MD, 09/26/2024 12:10 PM documented in this encounter [facility] Work Phone: 10-08-2024 History of Present illness Narrative Discharge documents were sent to facility through [facility]. Elke Monae RN Thoracic Surgery Progress Note 10/08/2024 Rocio Allred Jaime is a 79 y.o. male with a history of A-fib, sick sinus syndrome, HFmrEF, HTN, HLD, ALISHA, T2DM admitted following elective CIED transvenous extraction and upgrade to Medtronic PROPERTY CLAIM REP-P for pacemaker induced cardiomyopathy, admitted to CICU for post procedural monitoring. Following procedure was found to have esophageal perforation with pneumomediastinum on CXR confirmed by subsequent CT chest noncon and CT chest w PO con. Thoracic surgery was consulted. He is now 11 Days Post-Op status post EGD with stent placement and PEG placement. Overnight issues: No acute events overnight Tolerated enteral feeds at goal Physical Exam: General: He is a pleasant male currently in no distress, resting in the bed. Conversational. Visit Vitals BP 107/69 (Patient Position: Lying) Pulse 71 Temp 36.2 C (97.2 F) Resp 18 Ht 1.88 m (6' 2) Wt 95.9 kg (211 lb 6.4 oz) SpO2 95% BMI 27.14 kg/m Smoking Status Never BSA 2.24 m Body mass index is 27.14 kg/m . HEENT: Normocephalic and atraumatic. CHEST: Breathing comfortably on RA. HEART: Paced rhythm in 80s per tele review. ABDOMEN: Soft, ND, nontender. PEG/J tube feeds at 65ml/h. NEUROLOGIC: Alert and oriented. Grossly intact. MSK: trace LE edema bilat - stable Diagnostics: Intake/Output Summary (Last 24 hours) at 10/08/2024 0952 Last data filed at 10/08/2024 0709 Gross per 24 hour Intake 800 ml Output 1550 ml Net -750 ml Scheduled medications [Held by provider] atorvastatin, 40 mg, oral, Nightly bisacodyl, 10 mg, rectal, Nightly [Held by provider] cetirizine, 10 mg, oral, Daily [Held by provider] empagliflozin, 25 mg, oral, Daily fluconazole, 400 mg, intravenous, q24h [Held by provider] furosemide, 20 mg, oral, Daily [Held by provider] gabapentin, 1,200 mg, oral, TID insulin lispro, 0-5 Units, subcutaneous, q6h lidocaine, 1 patch, transdermal, Daily [Held by provider] melatonin, 10 mg, oral, Nightly pantoprazole, 40 mg, intravenous, Daily piperacillin-tazobactam, 3.375 g, intravenous, q6h rivaroxaban, 20 mg, j-tube, Daily with evening meal [Held by provider] tamsulosin, 0.4 mg, oral, Daily Continuous medications PRN medications PRN medications: dextrose, dextrose, diclofenac sodium, glucagon, glucagon, hydrALAZINE, morphine, trimethobenzamide Results for orders placed or performed during the hospital encounter of 09/26/24 (from the past 24 hours) POCT GLUCOSE Result Value Ref Range POCT Glucose 183 (H) 74 - 99 mg/dL POCT GLUCOSE Result Value Ref Range POCT Glucose 150 (H) 74 - 99 mg/dL POCT GLUCOSE Result Value Ref Range POCT Glucose 148 (H) 74 - 99 mg/dL Magnesium Result Value Ref Range Magnesium 2.23 1.60 - 2.40 mg/dL Renal Function Panel Result Value Ref Range Glucose 188 (H) 74 - 99 mg/dL Sodium 141 136 - 145 mmol/L Potassium 3.9 3.5 - 5.3 mmol/L Chloride 106 98 - 107 mmol/L Bicarbonate 26 21 - 32 mmol/L Anion Gap 13 10 - 20 mmol/L Urea Nitrogen 15 6 - 23 mg/dL Creatinine 0.78 0.50 - 1.30 mg/dL eGFR 90 >60 mL/min/1.73m*2 Calcium 8.5 (L) 8.6 - 10.6 mg/dL Phosphorus 2.8 2.5 - 4.9 mg/dL Albumin 3.0 (L) 3.4 - 5.0 g/dL CBC and Auto Differential Result Value Ref Range WBC 12.6 (H) 4.4 - 11.3 x10*3/uL nRBC 0.0 0.0 - 0.0 /100 WBCs RBC 4.38 (L) 4.50 - 5.90 x10*6/uL Hemoglobin 13.5 13.5 - 17.5 g/dL Hematocrit 43.4 41.0 - 52.0 % MCV 99 80 - 100 fL MCH 30.8 26.0 - 34.0 pg MCHC 31.1 (L) 32.0 - 36.0 g/dL RDW 15.6 (H) 11.5 - 14.5 % Platelets 246 150 - 450 x10*3/uL Neutrophils % 73.1 40.0 - 80.0 % Immature Granulocytes %, Automated 0.9 0.0 - 0.9 % Lymphocytes % 17.6 13.0 - 44.0 % Monocytes % 5.8 2.0 - 10.0 % Eosinophils % 2.2 0.0 - 6.0 % Basophils % 0.4 0.0 - 2.0 % Neutrophils Absolute 9.24 (H) 1.60 - 5.50 x10*3/uL Immature Granulocytes Absolute, Automated 0.12 0.00 - 0.50 x10*3/uL Lymphocytes Absolute 2.22 0.80 - 3.00 x10*3/uL Monocytes Absolute 0.73 0.05 - 0.80 x10*3/uL Eosinophils Absolute 0.28 0.00 - 0.40 x10*3/uL Basophils Absolute 0.05 0.00 - 0.10 x10*3/uL POCT GLUCOSE Result Value Ref Range POCT Glucose 199 (H) 74 - 99 mg/dL *Note: Due to a large number of results and/or encounters for the requested time period, some results have not been displayed. A complete set of results can be found in Results Review. XR chest 1 view 10/07/2024 Narrative Interpreted By: Robbin Giraldo, STUDY: XR CHEST 1 VIEW; 10/07/2024 4:37 am INDICATION: Signs/Symptoms:esophageal perf. COMPARISON: 10/06/2024 ACCESSION NUMBER(S): [id number] ORDERING CLINICIAN: CRISTOBAL DUNBAR FINDINGS: AP radiograph of the chest was provided. Pacemaker generator on the left is again noted with biventricular leads in stable position. Esophageal stent is unchanged. CARDIOMEDIASTINAL SILHOUETTE: Cardiomediastinal silhouette is large but stable in size and configuration. LUNGS: There is no acute consolidation. Changes of chronic lung disease apparent with scarring. Minimal basal atelectatic changes remain. No pleural fluid collection is noted. ABDOMEN: Small residual pneumoperitoneum is apparent with subdiaphragmatic air visible on the right. BONES: No acute osseous changes. Impression 1. No significant interval change. MACRO: None Signed by: Robbin Giraldo 10/07/2024 2:47 PM Dictation workstation: [id number] 10/08/24 CXR Stable appearance Assessment: Rocio Sandoval is a 79 y.o. male with history of hypertension, heart failure with reduced ejection fraction ALISHA type 2 diabetes sick sinus syndrome who presented for TV pacer extraction with upgrade to PROPERTY CLAIM REP-P biventricular pacer. 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 Patient underwent ANTONIETTA intraoperatively. Postoperatively had a chest x-ray performed demonstrating possible pneumomediastinum. He had a noncontrasted CT chest demonstrating pneumomediastinum. Patient had a CT chest with IV and p.o. contrast demonstrating a perforation at the posterior aspect of the GEJ concerning for esophageal perforation/injury. He underwent EGD with esophageal stent placement 150 x 23 distal end at 40 cm and PEG tube placement on 09/27. 09/30: transferred to [facility]. Self removal of NGT. Na 146 10/01: IR consulted G-J conversion. Na 148 10/02: IR G-J conversion completed. Unsuccessful attempt at TF initiation 08/03 equipment. Na 151-L3hpasn ordered for mIVF. 10/03: tube feeds initiated. Na 153. Plan: Neuro: h/o Headaches; surgical pain -Prescribed prednisone taper by PCP on 09/18, transitioned to IV methylpred while NPO, now discontinued. -Good pain control, continue with Morphine as needed, will add Acetaminophen as needed -Will start bowel regimen while on narcotics Cardiology: h/o Permanent afib, Sick sinus syndrome, Pacemaker induced cardiomyopathy, Post CIED transvenous extraction, and upgrade to Medtronic PROPERTY CLAIM REP-P; Underwent transvenous lead extraction of medtronic dual chamber pacemaker and implant of medtronic biventricular pacemaker on 09/26 with EP; HFmrEF - TTE from 04/2024 with LV EF at 42% declined from prior echo 06/2021, global hypokinesis of LV -paced on telemetry - continue telemetry and VS every 4 hrs -Home meds: PO lasix 20mg every other day, jardiance 25mg daily, Xarelto, statin; Xarelto resumed 10/04 -EP following peripherally, re-engaged 10/05 due to patient reporting thumbing in chest. Given previous recommendations, engaged about need for device interrogation. Per EP fellow, need to page on Sunday (pager: [phone]) and request interrogation due to diaphragm capture -Device checked 10/06 - changed from 3.5 to 3.0V -EP provided detailed discharge instructions in progress note from 10/03: refer to note at time of discharge Recommendations: -if has more thumping left chest, can ask device clinic to change LV pacing position on Sunday given possible phrenic capture -s/p 7d abx -activity restrictions added to discharge instructions and listed below -can restart prophylactic dose heparin 10/01 -no therapeutic anticoagulation while inpatient from EP standpoint, on discharge if felt can handle anticoagulation from Thoracic Surgery standpoint would restart home rivaroxaban -device clinic wound check and device check to be scheduled by device clinic in 4 weeks -if central lines required in the 4 weeks post pacemaker would prefer femoral given high risk of dislodging the passive-fixation coronary sinus lead newly implanted 09/26 and elevated risk of vascular injury with laser lead extraction. If tunneled central line required, would place with fluoroscopy and avoid interaction with CS lead Will follow peripherally - please call if questions Pulmonary: no acute issues. -Breathing comfortably on room air -Repeat CXR as needed -Encourage IS -Nebs PRN Renal: hypernatremia - resolved -Free water flushes ordered via J tube 200 q3 hours -Repeat daily BMP -Replete lytes PRN GI: Esophageal perforation following ANTONIETTA s/p EGD with stent placement and PEG placement on 09/27; pt removed NG -NPO with occasional ice chips, occasional swabs -ATB: Zosyn and fluconazole (09/27 for 14 days course) for empiric coverage -PPI with protonix 40 daily -s/p IR for G-J conversion 10/02 - enteral feeds at goal -Isosource 1.5 at 65 ml/hr , convert to 16 hours regimen on discharge -Plan repeat EGD/stent removal +/- replacement on 10/29 Endocrinology: h/o T2DM -Home regimen of Metformin 750 BID, Jardiance 25mg (holding) -BG every 6 hours while NPO with Lispro s/s per protocol MSK: Chronic back pain; Lumbar radiculopathy - pain management with tylenol and gabapentin per home regimen -Home gabapentin 1200 TID (HELD) -Continue Lidocaine patch, voltaren gel PRN, tylenol and morphine as needed for pain ID: esophageal perforation Mild leukocytosis and afebrile -Continue empiric abx with Fluconazole and Zosyn (09/27) for 14 days, will convert to liquid regimen of Fluconazole and Augmentin on discharge -Daily CBC, trend temps DVT ppx: -Home Xarelto resumed 10/04 Dispo: -Plan to discharge patient to SNF today wit virtual visit on 10/23 and scheduled repeat EGD/stent removal +/- replacement on 10/29 Patient seen and examined; I discussed the patient with Dr Charity Moon, [facility] Thoracic surgery [id number] Thoracic Surgery Progress Note 10/07/2024 Rocio Sandoval is a 79 y.o. male with a history of A-fib, sick sinus syndrome, HFmrEF, HTN, HLD, ALISHA, T2DM admitted following elective CIED transvenous extraction and upgrade to Medtronic PROPERTY CLAIM REP-P for pacemaker induced cardiomyopathy, admitted to CICU for post procedural monitoring. Following procedure was found to have esophageal perforation with pneumomediastinum on CXR confirmed by subsequent CT chest noncon and CT chest w PO con. Thoracic surgery was consulted. He is now 10 Days Post-Op status post EGD with stent placement and PEG placement. Overnight issues: No acute events overnight. Physical Exam: General: He is a pleasant male currently in no distress, seen sitting up in bed. Conversational. Visit Vitals BP 127/81 (BP Location: Right arm, Patient Position: Lying) Pulse 80 Temp 37.3 C (99.1 F) (Temporal) Resp 18 Ht 1.88 m (6' 2) Wt 106 kg (234 lb) SpO2 98% BMI 30.04 kg/m Smoking Status Never BSA 2.35 m Body mass index is 30.04 kg/m . HEENT: Normocephalic and atraumatic. CHEST: Breathing comfortably on RA. HEART: Paced rhythm in 80s per tele review. ABDOMEN: Soft, ND, nontender. PEG tube feeds at 65ml/h. NEUROLOGIC: Alert and oriented. Grossly intact. MSK: trace LE edema bilat - stable Diagnostics: Intake/Output Summary (Last 24 hours) at 10/07/2024 1835 Last data filed at 10/07/2024 1328 Gross per 24 hour Intake 1785 ml Output 1302 ml Net 483 ml Results from last 7 days Lab Units 10/07/24 0649 10/06/24 0400 10/05/24 0730 WBC AUTO x10*3/uL 11.0 11.5* 12.5* HEMOGLOBIN g/dL 15.6 14.3 14.6 HEMATOCRIT % 49.7 44.9 46.3 PLATELETS AUTO x10*3/uL 271 228 243 Results from last 7 days Lab Units 10/07/24 0649 10/06/24 0400 10/05/24 0730 SODIUM mmol/L 146* 145 146* POTASSIUM mmol/L 3.7 4.0 3.9 CHLORIDE mmol/L 104 107 108* CO2 mmol/L 30 27 26 BUN mg/dL 16 16 19 CREATININE mg/dL 0.85 0.59 0.64 GLUCOSE mg/dL 170* 118* 145* CALCIUM mg/dL 9.1 8.6 8.8 Results from last 7 days Lab Units 10/07/24 0649 10/06/24 0400 10/05/24 0730 SODIUM mmol/L 146* 145 146* POTASSIUM mmol/L 3.7 4.0 3.9 CHLORIDE mmol/L 104 107 108* CO2 mmol/L 30 27 26 BUN mg/dL 16 16 19 CREATININE mg/dL 0.85 0.59 0.64 GLUCOSE mg/dL 170* 118* 145* CALCIUM mg/dL 9.1 8.6 8.8 Scheduled medications [Held by provider] atorvastatin, 40 mg, oral, Nightly bisacodyl, 10 mg, rectal, Nightly [Held by provider] cetirizine, 10 mg, oral, Daily [Held by provider] empagliflozin, 25 mg, oral, Daily fluconazole, 400 mg, intravenous, q24h [Held by provider] furosemide, 20 mg, oral, Daily [Held by provider] gabapentin, 1,200 mg, oral, TID insulin lispro, 0-5 Units, subcutaneous, q6h lidocaine, 1 patch, transdermal, Daily [Held by provider] melatonin, 10 mg, oral, Nightly pantoprazole, 40 mg, intravenous, Daily piperacillin-tazobactam, 3.375 g, intravenous, q6h rivaroxaban, 20 mg, j-tube, Daily with evening meal [Held by provider] tamsulosin, 0.4 mg, oral, Daily Continuous medications PRN medications PRN medications: dextrose, dextrose, diclofenac sodium, glucagon, glucagon, hydrALAZINE, morphine, trimethobenzamide Imaging: AM CXR reviewed. Expected post op changes and esophageal stent placement. No clinically significant pneumothorax or effusion. CXR remains stable in comparison with previous exam. Assessment: Rocio Sandoval is a 79 y.o. male with history of hypertension, heart failure with reduced ejection fraction ALISHA type 2 diabetes sick sinus syndrome who presented for TV pacer extraction with upgrade to PROPERTY CLAIM REP-P biventricular pacer. 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 Patient underwent ANTONIETTA intraoperatively. Postoperatively had a chest x-ray performed demonstrating possible pneumomediastinum. He had a noncontrasted CT chest demonstrating pneumomediastinum. Patient had a CT chest with IV and p.o. contrast demonstrating a perforation at the posterior aspect of the GEJ concerning for esophageal perforation/injury. He underwent EGD with esophageal stent placement 150 x 23 distal end at 40 cm and PEG tube placement on 09/27. 09/30: transferred to [facility]. Self removal of NGT. Na 146 10/01: IR consulted G-J conversion. Na 148 10/02: IR G-J conversion completed. Unsuccessful attempt at TF initiation 08/03 equipment. Na 151-F3goueb ordered for mIVF. 10/03; tube feeds initiated. Na 153. Plan: Neuro: h/o Headaches; surgical pain -Prescribed prednisone taper by PCP on 09/18, transitioned to IV methylpred while NPO, now discontinued. -cont analgesics PRN and scheduled IV APAP Cardiology: h/o Permanent afib, Sick sinus syndrome, Pacemaker induced cardiomyopathy, Post CIED transvenous extraction, and upgrade to Medtronic PROPERTY CLAIM REP-P; Underwent transvenous lead extraction of medtronic dual chamber pacemaker and implant of medtronic biventricular pacemaker on 09/26 with EP; HFmrEF - TTE from 04/2024 with LV EF at 42% declined from prior echo 06/2021, global hypokinesis of LV -cont tele -Home meds: PO lasix 20mg every other day, jardiance 25mg daily, Xarelto, statin; Xarelto resumed 10/04, -EP following peripherally, re-engaged 10/05 due to patient reporting thumbing in chest. Given previous recommendations, engaged about need for device interrogation. Per EP fellow, need to page on Sunday (pager: [phone]) and request interrogation due to diaphragm capture -await device check - changed from 3.5 to 3.0V -EP provided detailed discharge instructions in progress note from 10/03: refer to note at time of discharge Pulmonary: no acute issues. Breathing comfortably on RA. -daily CXR -encourage IS -Nebs PRN Renal: hypernatremia - stable -free water flushes ordered via J tube 200 q3 hours -daily BMP -replete lytes PRN GI: Esophageal perforation following ANTONIETTA s/p EGD with stent placement and PEG placement on 09/27; pt removed NG -NPO with occasional ice chips, occasional swabs -cont Zosyn and fluconazole (09/27-) for empiric coverage -PPI with protonix 40 daily -s/p IR for G-J conversion 10/02. -Isosource tube feeds via PEG tube currently at 65ml/h Endocrinology: h/o T2DM -cont SSI -on home metformin 750 BID, Jardiance 25mg (holding) MSK: Chronic back pain; Lumbar radiculopathy - pain management with tylenol and gabapentin per home regimen -Home gabapentin 1200 TID (HELD) -lidocaine patch, voltaren gel PRN, IV tylenol and dilaudid 0.4 q4h while NPO ID: -cont empiric abx with fluconazole and Zosyn (09/27) -daily CBC: leukocytosis resolved (11.0) -cont VS per protocol -Decide when to stop empiric abx (fluconazole/zosyn 09/27-) for esophageal perforation DVT ppx: -Home Xarelto resumed 10/04 Dispo: -anticipate discharge to SNF tomorrow -cont to assess discharge needs Patient seen and examined; I discussed the patient with Dr Charity Mendez PA-C Thoracic surgery [id number] Physical Therapy Physical Therapy Treatment Patient Name: Rocio Sandoval [place] [id number] Room: [address] [place] [address]A Today's Date: 10/07/2024 Time Calculation Start Time: 1456 Stop Time: 1510 Time Calculation (min): 14 min Assessment/Plan PT Assessment PT Assessment Results: Decreased strength, Decreased endurance, Impaired balance, Decreased mobility Rehab Prognosis: Excellent Barriers to Discharge Home: Caregiver assistance, Physical needs Caregiver Assistance: Caregiver assistance needed per identified barriers - however, level of patient's required assistance exceeds assistance available at home Physical Needs: 24hr mobility assistance needed, 24hr ADL assistance needed, Ambulating household distances limited by function/safety, In-home setup navigation limited by function/safety, High falls risk due to function or environment Evaluation/Treatment Tolerance: Patient tolerated treatment well Medical Staff Made Aware: Yes End of Session Communication: Bedside nurse Assessment Comment: Pt is making good progress with PT, but continues to demo impaired strength, balance and endurance and requires hands on support/assist for all transfers and amb. Remains appropriate for mod intensity therapy End of Session Patient Position: Up in chair, Alarm off, not on at start of session PT Plan Inpatient/Swing Bed or Outpatient: Inpatient PT Plan Treatment/Interventions: Bed mobility, Transfer training, Gait training, Balance training, Strengthening, Endurance training, Range of motion, Therapeutic exercise, Therapeutic activity, Home exercise program PT Plan: Ongoing PT PT Frequency: 4 times per week PT Discharge Recommendations: Moderate intensity level of continued care Equipment Recommended upon Discharge: (TBD with further mobility assessment) PT Recommended Transfer Status: Assist x1, Assistive device PT - OK to Discharge: Yes General Visit Information: PT Visit PT Received On: 10/07/24 Response to Previous Treatment: Patient with no complaints from previous session. General Family/Caregiver Present: Yes Caregiver Feedback: Daughter present for first half of session. Prior to Session Communication: Bedside nurse Patient Position Received: Bed, 3 rail up, Alarm off, not on at start of session General Comment: Pt supine in bed, pleasant and agreeable to therapy Per handoff with RN, pt is appropriate for therapy, vitals are stable and pain is controlled. Other concerns prior to tx are: none Subjective Precautions: Precautions Medical Precautions: Abdominal precautions, Cardiac precautions, Fall precautions Precautions Comment: SBP <180. L UE pacemaker precautions-no lifting, pushing/pulling Objective Pain: Pain Assessment Pain Assessment: 0-10 0-10 (Numeric) Pain Score: 0 - No pain Cognition: Cognition Overall Cognitive Status: Within Functional Limits Orientation Level: Oriented X4 Treatments: Bed Mobility Bed Mobility: Yes Bed Mobility 1 Bed Mobility 1: Supine to sitting Level of Assistance 1: Minimum assistance, Moderate verbal cues Bed Mobility Comments 1: cues for logroll and technique Ambulation/Gait Training Ambulation/Gait Training Performed: Yes Ambulation/Gait Training 1 Surface 1: Level tile Device 1: Rolling walker Assistance 1: Contact guard Comments/Distance (ft) 1: 50'x1 Transfers Transfer: Yes Transfer 1 Transfer From 1: Sit to, Stand to Transfer to 1: Sit Technique 1: Sit to stand, Stand to sit Transfer Device 1: Walker Transfer Level of Assistance 1: Contact guard Outcome Measures: [facility] Basic Mobility Turning from your back to your side while in a flat bed without using bedrails: A little Moving from lying on your back to sitting on the side of a flat bed without using bedrails: A little Moving to and from bed to chair (including a wheelchair): A little Standing up from a chair using your arms (e.g. wheelchair or bedside chair): A little To walk in hospital room: A little Climbing 3-5 steps with railing: Total Basic Mobility - Total Score: 16 Education Documentation Precautions, taught by Suni Philip PTA at 10/07/2024 3:27 PM. Learner: Patient Readiness: Acceptance Method: Explanation, Demonstration Response: Verbalizes Understanding, Demonstrated Understanding Comment: precautions, logroll, safe transfer techniques Body Mechanics, taught by Suni Philip PTA at 10/07/2024 3:27 PM. Learner: Patient Readiness: Acceptance Method: Explanation, Demonstration Response: Verbalizes Understanding, Demonstrated Understanding Comment: precautions, logroll, safe transfer techniques Mobility Training, taught by Suni Philip PTA at 10/07/2024 3:27 PM. Learner: Patient Readiness: Acceptance Method: Explanation, Demonstration Response: Verbalizes Understanding, Demonstrated Understanding Comment: precautions, logroll, safe transfer techniques Education Comments No comments found. OP EDUCATION: Encounter Problems Encounter Problems (Active) Balance Patient will maintain static/dynamic standing balance >5 minutes with LRAD and Tonia x1. (Progressing) Start: 09/29/24 Expected End: 10/13/24 Mobility Patient will ambulate >150 ft with LRAD and Tonia X1. (Progressing) Start: 09/29/24 Expected End: 10/13/24 PT Transfers Transfer from bed to chair with Tonia x1 and LRAD. (Progressing) Start: 09/29/24 Expected End: 10/13/24 Patient to transfer to and from sit to supine with minimal cueing for adherence to abdominal and LUE Wbing precautions and close supervision. (Progressing) Start: 09/29/24 Expected End: 10/13/24 Patient will transfer sit to and from stand with Tonia x1 and LRAD. (Progressing) Start: 09/29/24 Expected End: 10/13/24 Patient maintains LUE weight bearing status during transfers without cueing provided. (Progressing) Start: 09/29/24 Expected End: 10/13/24 Pain - Adult MASTER Richard Cosigned by Seda Morales PT at 10/07/2024 3:54 PM EDT [facility] has insurance approval and is able to accept patient tomorrow morning. Transport is confirmed at 1100 am with [facility]. [phone] Nursing report can be called to [phone]. Patient was notified and his daughter, Thoracic surgery ENGINEER [employer], nurse, facility, blue slip delivered to desk. Elke Monae RN Met with patient and introduced myself as Entry Writer and member of the discharge planning team. Patient expressed interest in going to SNF at [facility]. Clinical updates were sent and they are able to accept patient. I spoke to patient's daughter by phone and she is agreeable with that plan. Elke Monae RN Occupational Therapy Occupational Therapy Treatment Name: Rocio Sandoval : 1945 Date: 10/06/24 Room: [address] [place] [address]-A Time Calculation Start Time: 1018 Stop Time: 1041 Time Calculation (min): 23 min Assessment: OT Assessment: Pt continues to demo progress towards goals w/ STS at CGA, LB dressing MIN A, and Grooming at s/u. Pt demos a MBI of 63/100 (Moderate Dependency) indicating the need for continued skilled OT services at MOD intensity to allow for a safe and functional d/c. Prognosis: Good Barriers to Discharge Home: Caregiver assistance, Physical needs Caregiver Assistance: Caregiver assistance needed per identified barriers - however, level of patient's required assistance exceeds assistance available at home Physical Needs: Intermittent mobility assistance needed, Intermittent ADL assistance needed, High falls risk due to function or environment, Ambulating household distances limited by function/safety Evaluation/Treatment Tolerance: Patient tolerated treatment well Medical Staff Made Aware: Yes End of Session Communication: Bedside nurse End of Session Patient Position: Up in chair, Alarm off, not on at start of session Plan: Treatment Interventions: ADL retraining, Functional transfer training, UE strengthening/ROM, Endurance training, Cognitive reorientation, Patient/family training, Equipment evaluation/education, Compensatory technique education OT Frequency: 3 times per week OT Discharge Recommendations: Moderate intensity level of continued care Equipment Recommended upon Discharge: (TBD) OT Recommended Transfer Status: Moderate assist, Assist of 1 OT - OK to Discharge: Yes Subjective General: OT Last Visit OT Received On: 10/06/24 Reason for Referral: Presented for elective CEID, s/p Transvenous Lead Extraction of Medtronic Dual chamber pacemaker And Implant of Medtronic Biventricular pacemaker with Plugged RA lead (09/26). Postoperatively, had chest x-ray and noncontrasted CT chest demonstrating pneumomediastinum. CT chest with IV and p.o. contrast showed concerning for esophageal perforation/injury. S/p EGD, PEG tube placement, esophageal stent placement (09/27). Past Medical History Relevant to Rehab: afib, sick sinus syndrome, HFmrEF, HTN, HLD, ALISHA, T2DM Prior to Session Communication: Bedside nurse Patient Position Received: Up in chair, Alarm off, not on at start of session Family/Caregiver Present: No General Comment: Pt seated in recliner on approach. Pleasant and agreeable to OT session Precautions: Hearing/Visual Limitations: Glasses Medical Precautions: Abdominal precautions, Cardiac precautions, Fall precautions Precautions Comment: SBP <180. L UE pacemaker precautions-no lifting, pushing/pulling Vitals: Date/Time Vitals Session Patient Position Pulse Resp SpO2 BP MAP (mmHg) 10/06/24 1018 During OT -- 80 -- -- -- -- Lines/Tubes/Drains: Gastrostomy/Enterostomy Jejunostomy 1 10.2 Fr. LUQ (Active) Number of days: 3 Cognition: Overall Cognitive Status: Within Functional Limits Orientation Level: Oriented X4 Insight: Within function limits Impulsive: Within functional limits Pain Assessment: Pain Assessment Pain Assessment: 0-10 0-10 (Numeric) Pain Score: 0 - No pain Objective Activities of Daily Living: Grooming Grooming Level of Assistance: Setup Grooming Where Assessed: Recliner Grooming Comments: Oral hygiene, shaving w/ electric razor, and washing face LE Dressing LE Dressing: Yes Pants Level of Assistance: Minimum assistance LE Dressing Where Assessed: Recliner LE Dressing Comments: verbal cues for figure four to thread BLE. Assist for ininital threading of BLE Bed Mobility/Transfers: Transfer 1 Transfer From 1: Chair with arms to Transfer to 1: Stand Technique 1: Sit to stand Transfer Device 1: Walker Transfer Level of Assistance 1: Contact guard Outcome Measures: [facility] Daily Activity Putting on and taking off regular lower body clothing: A little Bathing (including washing, rinsing, drying): A lot Putting on and taking off regular upper body clothing: A little Toileting, which includes using toilet, bedpan or urinal: A lot Taking care of personal grooming such as brushing teeth: A little Eating Meals: None (Ice chips) Daily Activity - Total Score: 17 OT Adult Other Outcome Measures Modified Barbara Index (Chambers version): 63/100 Moderate Dependency Education Documentation Body Mechanics, taught by Miriam Rolon OT at 10/06/2024 12:13 PM. Learner: Patient Readiness: Acceptance Method: Explanation Response: Verbalizes Understanding Precautions, taught by Miriam Rolon OT at 10/06/2024 12:13 PM. Learner: Patient Readiness: Acceptance Method: Explanation Response: Verbalizes Understanding ADL Training, taught by Miriam Rolon OT at 10/06/2024 12:13 PM. Learner: Patient Readiness: Acceptance Method: Explanation Response: Verbalizes Understanding Education Comments No comments found. Goals: Encounter Problems Encounter Problems (Active) ADLs Patient will perform UB and LB bathing with supervision using AE PRN. (Progressing) Start: 09/29/24 Expected End: 10/13/24 Patient with complete upper body dressing with Mod I. (Progressing) Start: 09/29/24 Expected End: 10/13/24 Patient with complete lower body dressing with supervision using AE PRN. (Progressing) Start: 09/29/24 Expected End: 10/13/24 Patient will complete daily grooming tasks with Mod I. (Progressing) Start: 09/29/24 Expected End: 10/13/24 Patient will complete toileting including hygiene clothing management/hygiene with supervision. (Progressing) Start: 09/29/24 Expected End: 10/13/24 ADLs Pt will complete ADL/IADL tasks with Mod I-supervision using 2/3 EC/WS principles as needed with good safety awareness. (Progressing) Start: 09/29/24 Expected End: 10/13/24 COGNITION/SAFETY Patient will score WFL on standardized cognitive assessment within reasonable time frame (Progressing) Start: 09/29/24 Expected End: 10/13/24 MOBILITY Pt will perform functional mobility household distances with supervision using LRAD without LOB and demonstrating good safety awareness. (Progressing) Start: 09/29/24 Expected End: 10/13/24 TRANSFERS Pt will perform bed mobility in simulated home environment with Mod I. (Progressing) Start: 09/29/24 Expected End: 10/13/24 Pt will perform functional transfers on various surfaces with supervision using LRAD with good safety awareness. (Progressing) Start: 09/29/24 Expected End: 10/13/24 10/06/24 at 12:14 PM MIRIAM ROLON OT [phone] Thoracic Surgery Progress Note 10/06/2024 Rocio Sandoval is a 79 y.o. male with a history of A-fib, sick sinus syndrome, HFmrEF, HTN, HLD, ALISHA, T2DM admitted following elective CIED transvenous extraction and upgrade to Medtronic PROPERTY CLAIM REP-P for pacemaker induced cardiomyopathy, admitted to CICU for post procedural monitoring. Following procedure was found to have esophageal perforation with pneumomediastinum on CXR confirmed by subsequent CT chest noncon and CT chest w PO con. Thoracic surgery was consulted. He is now 9 Days Post-Op status post EGD with stent placement and PEG placement. Overnight issues: No acute events overnight. Physical Exam: General: He is a pleasant male currently in no distress, seen sitting up in bed. Conversational. Visit Vitals BP 127/79 (BP Location: Right arm, Patient Position: Sitting) Pulse 84 Temp 35.7 C (96.3 F) (Temporal) Resp 18 Ht 1.88 m (6' 2) Wt 106 kg (234 lb) SpO2 97% BMI 30.04 kg/m Smoking Status Never BSA 2.35 m Body mass index is 30.04 kg/m . HEENT: Normocephalic and atraumatic. CHEST: Breathing comfortably on RA. HEART: Paced rhythm in 80s per tele review. ABDOMEN: Soft, ND, nontender. PEG tube feeds at 40ml/h. NEUROLOGIC: Alert and oriented. Grossly intact. MSK: trace LE edema bilat Diagnostics: Intake/Output Summary (Last 24 hours) at 10/06/2024 1118 Last data filed at 10/06/2024 1000 Gross per 24 hour Intake 1830 ml Output 300 ml Net 1530 ml Results from last 7 days Lab Units 10/06/24 04010/05/24 0710/04/24 0738 WBC AUTO x10*3/uL 11.5* 12.5* 11.8* HEMOGLOBIN g/dL 14.3 14.6 15.0 HEMATOCRIT % 44.9 46.3 51.5 PLATELETS AUTO x10*3/uL 228 243 230 Results from last 7 days Lab Units 10/06/24 0400 10/05/24 0730 10/04/24 0738 SODIUM mmol/L 145 146* 149* POTASSIUM mmol/L 4.0 3.9 4.0 CHLORIDE mmol/L 107 108* 112* CO2 mmol/L 27 26 25 BUN mg/dL 16 19 24* CREATININE mg/dL 0.59 0.64 0.76 GLUCOSE mg/dL 118* 145* 137* CALCIUM mg/dL 8.6 8.8 8.9 Results from last 7 days Lab Units 10/06/24 0400 10/05/24 0730 10/04/24 0738 SODIUM mmol/L 145 146* 149* POTASSIUM mmol/L 4.0 3.9 4.0 CHLORIDE mmol/L 107 108* 112* CO2 mmol/L 27 26 25 BUN mg/dL 16 19 24* CREATININE mg/dL 0.59 0.64 0.76 GLUCOSE mg/dL 118* 145* 137* CALCIUM mg/dL 8.6 8.8 8.9 Scheduled medications [Held by provider] atorvastatin, 40 mg, oral, Nightly bisacodyl, 10 mg, rectal, Nightly [Held by provider] cetirizine, 10 mg, oral, Daily [Held by provider] empagliflozin, 25 mg, oral, Daily fluconazole, 400 mg, intravenous, q24h [Held by provider] furosemide, 20 mg, oral, Daily [Held by provider] gabapentin, 1,200 mg, oral, TID insulin lispro, 0-5 Units, subcutaneous, q6h lidocaine, 1 patch, transdermal, Daily [Held by provider] melatonin, 10 mg, oral, Nightly pantoprazole, 40 mg, intravenous, Daily piperacillin-tazobactam, 3.375 g, intravenous, q6h rivaroxaban, 20 mg, j-tube, Daily with evening meal [Held by provider] tamsulosin, 0.4 mg, oral, Daily Continuous medications PRN medications PRN medications: dextrose, dextrose, diclofenac sodium, glucagon, glucagon, hydrALAZINE, morphine, trimethobenzamide Imaging: AM CXR reviewed. Expected post op changes and esophageal stent placement. No clinically significant pneumothorax or effusion. CXR remains stable in comparison with previous exam. Assessment: Rocio Sandoval is a 79 y.o. male with history of hypertension, heart failure with reduced ejection fraction ALISHA type 2 diabetes sick sinus syndrome who presented for TV pacer extraction with upgrade to PROPERTY CLAIM REP-P biventricular pacer. 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 Patient underwent ANTONIETTA intraoperatively. Postoperatively had a chest x-ray performed demonstrating possible pneumomediastinum. He had a noncontrasted CT chest demonstrating pneumomediastinum. Patient had a CT chest with IV and p.o. contrast demonstrating a perforation at the posterior aspect of the GEJ concerning for esophageal perforation/injury. He underwent EGD with esophageal stent placement 150 x 23 distal end at 40 cm and PEG tube placement on 09/27. 09/30: transferred to [facility]. Self removal of NGT. Na 146 10/01: IR consulted G-J conversion. Na 148 10/02: IR G-J conversion completed. Unsuccessful attempt at TF initiation 08/03 equipment. Na 151-A7oepog ordered for mIVF. 10/03; tube feeds initiated. Na 153. Plan: Neuro: h/o Headaches; surgical pain -Prescribed prednisone taper by PCP on 09/18, transitioned to IV methylpred while NPO, now discontinued. -cont analgesics PRN and scheduled IV APAP Cardiology: h/o Permanent afib, Sick sinus syndrome, Pacemaker induced cardiomyopathy, Post CIED transvenous extraction, and upgrade to Medtronic PROPERTY CLAIM REP-P; Underwent transvenous lead extraction of medtronic dual chamber pacemaker and implant of medtronic biventricular pacemaker on 09/26 with EP; HFmrEF - TTE from 04/2024 with LV EF at 42% declined from prior echo 06/2021, global hypokinesis of LV -cont tele -Home meds: PO lasix 20mg every other day, jardiance 25mg daily, Xarelto, statin; Xarelto resumed 10/04, -EP following peripherally, re-engaged 10/05 due to patient reporting thumbing in chest. Given previous recommendations, engaged about need for device interrogation. Per EP fellow, need to page on Sunday (pager: [phone]) and request interrogation due to diaphragm capture -await device check this morning -EP provided detailed discharge instructions in progress note from 10/03: refer to note at time of discharge Pulmonary: no acute issues. Breathing comfortably on RA. -daily CXR -encourage IS -Nebs PRN Renal: -free water flushes ordered via J tube 200 q3 hours, hypernatremia resolved -daily BMP -replete lytes PRN GI: Esophageal perforation following ANTONIETTA s/p EGD with stent placement and PEG placement on 09/27; pt removed NG -NPO with occasional ice chips, occasional swabs -cont Zosyn and fluconazole (09/27-) for empiric coverage -PPI with protonix 40 daily -s/p IR for G-J conversion 10/02. -Isosource tube feeds via PEG tube currently at 40ml/h, increased to 65ml/h as tolerated Endocrinology: h/o T2DM -cont SSI -on home metformin 750 BID, Jardiance 25mg (holding) MSK: Chronic back pain; Lumbar radiculopathy - pain management with tylenol and gabapentin per home regimen -Home gabapentin 1200 TID (HELD) -lidocaine patch, voltaren gel PRN, IV tylenol and dilaudid 0.4 q4h while NPO ID: -cont empiric abx with fluconazole and Zosyn (09/27) -daily CBC: leukocytosis improved today (11.5) w/o other signs of infection, continue to monitor -cont VS per protocol -Decide when to stop empiric abx (fluconazole/zosyn 09/27-) for esophageal perforation DVT ppx: -Home Xarelto resumed 10/04 Dispo: -anticipate discharge to SNF when medically appropriate -cont to assess discharge needs Patient seen and examined; I discussed the patient with Dr Charity Mendez PA-C Thoracic surgery [id number] Physical Therapy Physical Therapy Treatment Patient Name: Rocio Sandoval Department: [place] [id number] Room: [address] [place] [address] Today's Date: 10/06/2024 Time Calculation Start Time: 916 Stop Time: 939 Time Calculation (min): 23 min Assessment/Plan PT Assessment PT Assessment Results: Decreased strength, Decreased endurance, Impaired balance, Decreased mobility Rehab Prognosis: Excellent Barriers to Discharge Home: Caregiver assistance, Physical needs Caregiver Assistance: Caregiver assistance needed per identified barriers - however, level of patient's required assistance exceeds assistance available at home Physical Needs: 24hr mobility assistance needed, 24hr ADL assistance needed, Ambulating household distances limited by function/safety, In-home setup navigation limited by function/safety, High falls risk due to function or environment Evaluation/Treatment Tolerance: Patient tolerated treatment well Medical Staff Made Aware: Yes End of Session Communication: Bedside nurse Assessment Comment: pt progressing with therapy, able to ambulate into [place] with Tonia this date. Continues to require assist to complete sit-stand. Remains appropriate for mod intensity therapy End of Session Patient Position: Up in chair, Alarm off, not on at start of session PT Plan Inpatient/Swing Bed or Outpatient: Inpatient PT Plan Treatment/Interventions: Bed mobility, Transfer training, Gait training, Balance training, Strengthening, Endurance training, Range of motion, Therapeutic exercise, Therapeutic activity, Home exercise program PT Plan: Ongoing PT PT Frequency: 4 times per week PT Discharge Recommendations: Moderate intensity level of continued care Equipment Recommended upon Discharge: (TBD with further mobility assessment) PT Recommended Transfer Status: Assist x1, Assistive device PT - OK to Discharge: Yes General Visit Information: PT Visit PT Received On: 10/06/24 Response to Previous Treatment: Patient with no complaints from previous session. General Prior to Session Communication: Bedside nurse Patient Position Received: Up in bathroom General Comment: Pt on toilet, ready to get up when approached for therapy. Pleasant and agreeable. Per handoff with RN, pt is appropriate for therapy, vitals are stable and pain is controlled. Other concerns prior to tx are: none Subjective Precautions: Precautions Medical Precautions: Abdominal precautions, Cardiac precautions, Fall precautions Precautions Comment: SBP <180. L UE pacemaker precautions-no lifting, pushing/pulling Objective Pain: Pain Assessment Pain Assessment: 0-10 0-10 (Numeric) Pain Score: 0 - No pain Cognition: Cognition Overall Cognitive Status: Within Functional Limits Orientation Level: Oriented X4 Treatments: Therapeutic Activity Therapeutic Activity Performed: Yes Therapeutic Activity 1: Unsupported standinbg ~1min while attending hand hygiene with Tonia for balance Ambulation/Gait Training Ambulation/Gait Training Performed: Yes Ambulation/Gait Training 1 Surface 1: Level tile Device 1: Rolling walker Assistance 1: Minimum assistance Quality of Gait 1: Wide base of support, Diminished heel strike, Decreased step length Comments/Distance (ft) 1: 30'x1 Transfers Transfer: Yes Transfer 1 Transfer From 1: Sit to, Stand to Transfer to 1: Sit Technique 1: Sit to stand, Stand to sit Transfer Device 1: Walker Transfer Level of Assistance 1: Moderate assistance Trials/Comments 1: from toilet vs chair with arms Outcome Measures: [facility] Basic Mobility Turning from your back to your side while in a flat bed without using bedrails: A little Moving from lying on your back to sitting on the side of a flat bed without using bedrails: A lot Moving to and from bed to chair (including a wheelchair): A little Standing up from a chair using your arms (e.g. wheelchair or bedside chair): A lot To walk in hospital room: A little Climbing 3-5 steps with railing: Total Basic Mobility - Total Score: 14 Education Documentation Precautions, taught by Suni Philip PTA at 10/06/2024 10:17 AM. Learner: Patient Readiness: Acceptance Method: Explanation, Demonstration Response: Verbalizes Understanding, Demonstrated Understanding Comment: precautions, safe mobility, body alignment Body Mechanics, taught by Suni Philip PTA at 10/06/2024 10:17 AM. Learner: Patient Readiness: Acceptance Method: Explanation, Demonstration Response: Verbalizes Understanding, Demonstrated Understanding Comment: precautions, safe mobility, body alignment Mobility Training, taught by Suni Philip PTA at 10/06/2024 10:17 AM. Learner: Patient Readiness: Acceptance Method: Explanation, Demonstration Response: Verbalizes Understanding, Demonstrated Understanding Comment: precautions, safe mobility, body alignment Education Comments No comments found. OP EDUCATION: Encounter Problems Encounter Problems (Active) Balance Patient will maintain static/dynamic standing balance >5 minutes with LRAD and Tonia x1. (Progressing) Start: 09/29/24 Expected End: 10/13/24 Mobility Patient will ambulate >150 ft with LRAD and Tonia X1. (Progressing) Start: 09/29/24 Expected End: 10/13/24 PT Transfers Transfer from bed to chair with Tonia x1 and LRAD. (Progressing) Start: 09/29/24 Expected End: 10/13/24 Patient to transfer to and from sit to supine with minimal cueing for adherence to abdominal and LUE Wbing precautions and close supervision. (Progressing) Start: 09/29/24 Expected End: 10/13/24 Patient will transfer sit to and from stand with Tonia x1 and LRAD. (Progressing) Start: 09/29/24 Expected End: 10/13/24 Patient maintains LUE weight bearing status during transfers without cueing provided. (Progressing) Start: 09/29/24 Expected End: 10/13/24 Pain - Adult MASTER Richard Cosigned by Sameera Phillip PT at 10/06/2024 11:48 AM EDT Thoracic Surgery Progress Note 10/05/2024 Rocio Sandoval is a 79 y.o. male with a history of A-fib, sick sinus syndrome, HFmrEF, HTN, HLD, ALISHA, T2DM admitted following elective CIED transvenous extraction and upgrade to Medtronic PROPERTY CLAIM REP-P for pacemaker induced cardiomyopathy, admitted to CICU for post procedural monitoring. Following procedure was found to have esophageal perforation with pneumomediastinum on CXR confirmed by subsequent CT chest noncon and CT chest w PO con. Thoracic surgery was consulted. He is now 8 Days Post-Op status post EGD with stent placement and PEG placement. Overnight issues: No acute events overnight. Physical Exam: General: He is a pleasant male currently in no distress, seen sitting up in bed. Conversational. Visit Vitals BP 115/79 (BP Location: Left arm, Patient Position: Lying) Pulse 82 Temp 35.9 C (96.6 F) (Temporal) Resp 17 Ht 1.88 m (6' 2) Wt 106 kg (234 lb) SpO2 98% BMI 30.04 kg/m Smoking Status Never BSA 2.35 m Body mass index is 30.04 kg/m . HEENT: Normocephalic and atraumatic. CHEST: Breathing comfortably on RA. HEART: Regular rate and rhythm. Paced rhythm per tele review. ABDOMEN: Soft, flat, nontender. J-G tube feeds at 30. Secure with mesenteric tape. : voiding spontaneously via external cath NEUROLOGIC: Alert and oriented. Grossly intact. Diagnostics: Intake/Output Summary (Last 24 hours) at 10/05/2024 1556 Last data filed at 10/05/2024 1456 Gross per 24 hour Intake 2590 ml Output 1125 ml Net 1465 ml Results from last 7 days Lab Units 10/05/24 0730 10/04/24 0738 10/03/24 0646 WBC AUTO x10*3/uL 12.5* 11.8* 14.0* HEMOGLOBIN g/dL 14.6 15.0 15.6 HEMATOCRIT % 46.3 51.5 50.2 PLATELETS AUTO x10*3/uL 243 230 268 Results from last 7 days Lab Units 10/05/24 0730 10/04/24 0738 10/03/241951 SODIUM mmol/L 146* 149* 153* POTASSIUM mmol/L 3.9 4.0 3.6 CHLORIDE mmol/L 108* 112* 112* CO2 mmol/L BUN mg/dL 19 24* 29* CREATININE mg/dL 0.64 0.76 0.84 GLUCOSE mg/dL 145* 137* 144* CALCIUM mg/dL 8.8 8.9 9.2 Results from last 7 days Lab Units 10/05/24 0730 10/04/24 0738 10/03/241951 SODIUM mmol/L 146* 149* 153* POTASSIUM mmol/L 3.9 4.0 3.6 CHLORIDE mmol/L 108* 112* 112* CO2 mmol/L 26 25 26 BUN mg/dL 19 24* 29* CREATININE mg/dL 0.64 0.76 0.84 GLUCOSE mg/dL 145* 137* 144* CALCIUM mg/dL 8.8 8.9 9.2 Scheduled medications [Held by provider] atorvastatin, 40 mg, oral, Nightly bisacodyl, 10 mg, rectal, Nightly [Held by provider] cetirizine, 10 mg, oral, Daily [Held by provider] empagliflozin, 25 mg, oral, Daily fluconazole, 400 mg, intravenous, q24h [Held by provider] furosemide, 20 mg, oral, Daily [Held by provider] gabapentin, 1,200 mg, oral, TID insulin lispro, 0-5 Units, subcutaneous, q6h lidocaine, 1 patch, transdermal, Daily [Held by provider] melatonin, 10 mg, oral, Nightly pantoprazole, 40 mg, intravenous, Daily piperacillin-tazobactam, 3.375 g, intravenous, q6h rivaroxaban, 20 mg, j-tube, Daily with evening meal [Held by provider] tamsulosin, 0.4 mg, oral, Daily Continuous medications PRN medications PRN medications: dextrose, dextrose, diclofenac sodium, glucagon, glucagon, hydrALAZINE, ketorolac, morphine, trimethobenzamide Imaging: AM CXR reviewed. Expected post op changes and esophageal stent placement. No clinically significant pneumothorax or effusion. No formal report at this time. Assessment: Rocio Sandoval is a 79 y.o. male with history of hypertension, heart failure with reduced ejection fraction ALISHA type 2 diabetes sick sinus syndrome who presented for TV pacer extraction with upgrade to [employer]ERTY CLAIM REP-P biventricular pacer. 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 Patient underwent ANTONIETTA intraoperatively. Postoperatively had a chest x-ray performed demonstrating possible pneumomediastinum. He had a noncontrasted CT chest demonstrating pneumomediastinum. Of note, patient tolerated full dinner and clears well this evening having no abdominal pain otherwise hemodynamically stable. Patient had a CT chest with IV and p.o. contrast demonstrating a perforation at the posterior aspect of the GEJ concerning for esophageal perforation/injury. He underwent EGD with esophageal stent placement 150 x 23 distal end at 40 cm and PEG tube placement on 09/27. 09/30: transferred to [facility]. Self removal of NGT. Na 146 10/01: IR consulted G-J conversion. Na 148 10/02: IR G-J conversion completed. Unsuccessful attempt at TF initiation 08/03 equipment. Na 151-G5ugope ordered for mIVF. 10/03; tube feeds initiated. Na 153. Plan: Neuro: h/o Headaches; surgical pain -Prescribed prednisone taper by PCP on 09/18, transitioned to IV methylpred while NPO, now discontinued. -cont IV analgesics PRN and scheduled IV APAP Cardiology: h/o Permanent afib, Sick sinus syndrome, Pacemaker induced cardiomyopathy, Post CIED transvenous extraction, and upgrade to Medtronic PROPERTY CLAIM REP-P; Underwent transvenous lead extraction of medtronic dual chamber pacemaker and implant of medtronic biventricular pacemaker on 09/26 with EP; HFmrEF - TTE from 04/2024 with LV EF at 42% declined from prior echo 06/2021, global hypokinesis of LV -cont tele -Home meds: PO lasix 20mg every other day, jardiance 25mg daily, Xarelto, statin; Xarelto resumed 10/04, holding remainder -EP following peripherally, re-engaged 10/05 due to patient reporting thumbing in chest. Given previous recommendations, engaged about need for device interrogation. Per EP fellow, need to page on Sunday (pager: [phone]) and request interrogation due to diaphragm capture - EP provided detailed discharge instructions in progress note from 10/03: refer to note at time of discharge Pulmonary: no acute issues. Breathing comfortably on RA. -daily CXR -encourage IS -Nebs PRN Renal: - free water flushes ordered via J tube 200 q3 hours, hypernatremia resolved -daily BMP -replete lytes PRN GI: Esophageal perforation following ANTONIETTA s/p EGD with stent placement and PEG placement on 09/27; pt removed NG -NPO with occasional ice chips, occasional swabs -cont Zosyn and fluconazole (09/27-) for empiric coverage -PPI with protonix 40 daily -s/p IR for G-J conversion 10/02. - Isosource tube feeds via J tube currently at 30, increased to 40 10/05 Endocrinology: h/o T2DM -cont SSI -on home metformin 750 BID, Jardiance 25mg (holding) MSK: Chronic back pain; Lumbar radiculopathy - pain management with tylenol and gabapentin per home regimen -Home gabapentin 1200 TID (HELD) -lidocaine patch, voltaren gel PRN, IV tylenol and dilaudid 0.4 q4h while NPO ID: -cont empiric abx with fluconazole and Zosyn (09/27) -daily CBC: leukocytosis today (12.5) w/o other signs of infection, continue to monitor -cont VS per protocol [ ] Decide when to stop empiric abx (fluconazole/zosyn 09/27-) for esophageal perforation DVT ppx: Home Xarelto resumed 10/04 Dispo: RNF Patient seen and examined with Dr. Bae. Plan of care discussed with attending, Dr. Charity Garcia MD Thoracic surgery [id number] Cosigned by Kevin Carrillo MD at 10/05/2024 7:15 PM EDT Associated attestation - Kevin Marcus MD - 10/05/2024 7:15 PM EDT I saw and evaluated the patient. I personally obtained the chapin and critical portions of the history and physical exam or was physically present for chapin and critical portions performed by the resident/fellow. I reviewed the resident/fellow's documentation and discussed the patient with the resident/fellow. I agree with the resident/fellow's medical decision making as documented in the note. Thoracic Surgery Progress Note 10/04/2024 Rocio Sandoval is a 79 y.o. male with a history of A-fib, sick sinus syndrome, HFmrEF, HTN, HLD, ALISHA, T2DM admitted following elective CIED transvenous extraction and upgrade to Medtronic PROPERTY CLAIM REP-P for pacemaker induced cardiomyopathy, admitted to CICU for post procedural monitoring. Following procedure was found to have esophageal perforation with pneumomediastinum on CXR confirmed by subsequent CT chest noncon and CT chest w PO con. Thoracic surgery was consulted. He is now 7 Days Post-Op status post EGD with stent placement and PEG placement. Overnight issues: No acute events overnight, afebrile, normotensive, doing well on room air. Tolerating tube feeds at 20, 2 bowel movements Physical Exam: General: He is a pleasant male currently in no distress, seen sitting up in bed. Sleepy. Visit Vitals BP 149/82 (BP Location: Right arm, Patient Position: Sitting) Pulse 83 Temp 36.6 C (97.9 F) (Temporal) Resp 17 Ht 1.88 m (6' 2) Wt 106 kg (234 lb) SpO2 97% BMI 30.04 kg/m Smoking Status Never BSA 2.35 m Body mass index is 30.04 kg/m . HEENT: Normocephalic and atraumatic. NECK: Supple. Trach midline. No JVD. CHEST: Breathing comfortably on RA. HEART: Regular rate and rhythm. Paced rhythm per tele review. ABDOMEN: Soft, flat, nontender. J-G tube feeds at 20. Secure with mesenteric tape. : good urine output last 24 hours via external cath NEUROLOGIC: Alert and oriented. Grossly intact. EXTREMITIES: Moves all extremities equally. Pedal pulses are palpable. No lower extremity edema. No calf tenderness. L >R UE swelling improving. Diagnostics: Intake/Output Summary (Last 24 hours) at 10/04/2024 1124 Last data filed at 10/04/2024 0843 Gross per 24 hour Intake 1968 ml Output 1275 ml Net 693 ml Results from last 7 days Lab Units 10/04/24 0738 10/03/24 0646 10/02/24 0719 WBC AUTO x10*3/uL 11.8* 14.0* 12.6* HEMOGLOBIN g/dL 15.0 15.6 15.7 HEMATOCRIT % 51.5 50.2 50.1 PLATELETS AUTO x10*3/uL 230 268 294 Results from last 7 days Lab Units 10/04/24 0738 10/03/24 19510/03/24 0646 SODIUM mmol/L 149* 153* 153* POTASSIUM mmol/L 4.0 3.6 3.8 CHLORIDE mmol/L 112* 112* 114* CO2 mmol/L 25 25 BUN mg/dL 24* 29* 29* CREATININE mg/dL 0.76 0.84 0.84 GLUCOSE mg/dL 137* 144* 128* CALCIUM mg/dL 8.9 9.2 8.7 Results from last 7 days Lab Units 10/04/24 0738 10/03/24 1952 10/03/24 0646 SODIUM mmol/L 149* 153* 153* POTASSIUM mmol/L 4.0 3.6 3.8 CHLORIDE mmol/L 112* 112* 114* CO2 mmol/L 25 26 25 BUN mg/dL 24* 29* 29* CREATININE mg/dL 0.76 0.84 0.84 GLUCOSE mg/dL 137* 144* 128* CALCIUM mg/dL 8.9 9.2 8.7 Scheduled medications [Held by provider] atorvastatin, 40 mg, oral, Nightly bisacodyl, 10 mg, rectal, Nightly [Held by provider] cetirizine, 10 mg, oral, Daily [Held by provider] empagliflozin, 25 mg, oral, Daily fluconazole, 400 mg, intravenous, q24h [Held by provider] furosemide, 20 mg, oral, Daily [Held by provider] gabapentin, 1,200 mg, oral, TID insulin lispro, 0-5 Units, subcutaneous, q6h lidocaine, 1 patch, transdermal, Daily [Held by provider] melatonin, 10 mg, oral, Nightly pantoprazole, 40 mg, intravenous, Daily piperacillin-tazobactam, 3.375 g, intravenous, q6h rivaroxaban, 20 mg, j-tube, Daily with evening meal [Held by provider] tamsulosin, 0.4 mg, oral, Daily Continuous medications PRN medications PRN medications: dextrose, dextrose, diclofenac sodium, glucagon, glucagon, hydrALAZINE, ketorolac, morphine, trimethobenzamide Imaging: AM CXR reviewed. Expected post op changes and esophageal stent placement. No clinically significant pneumothorax or effusion. No formal report at this time. Assessment: Rocio Sandoval is a 79 y.o. male with history of hypertension, heart failure with reduced ejection fraction ALISHA type 2 diabetes sick sinus syndrome who presented for TV pacer extraction with upgrade to PROPERTY CLAIM REP-P biventricular pacer. 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 Patient underwent ANTONIETTA intraoperatively. Postoperatively had a chest x-ray performed demonstrating possible pneumomediastinum. He had a noncontrasted CT chest demonstrating pneumomediastinum. Of note, patient tolerated full dinner and clears well this evening having no abdominal pain otherwise hemodynamically stable. Patient had a CT chest with IV and p.o. contrast demonstrating a perforation at the posterior aspect of the GEJ concerning for esophageal perforation/injury. He underwent EGD with esophageal stent placement 150 x 23 distal end at 40 cm and PEG tube placement on 09/27. 09/30: transferred to [facility]. Self removal of NGT. Na 146 10/01: IR consulted G-J conversion. Na 148 10/02: IR G-J conversion completed. Unsuccessful attempt at TF initiation 08/03 equipment. Na [id number] ordered for mIVF. 10/03; tube feeds initiated. Na 153. Plan: Neuro: h/o Headaches; surgical pain -Prescribed prednisone taper by PCP on 09/18, transitioned to IV methylpred while NPO, now discontinued. -cont IV analgesics PRN and scheduled IV APAP Cardiology: h/o Permanent afib, Sick sinus syndrome, Pacemaker induced cardiomyopathy, Post CIED transvenous extraction, and upgrade to Medtronic PROPERTY CLAIM REP-P; Underwent transvenous lead extraction of medtronic dual chamber pacemaker and implant of medtronic biventricular pacemaker on 09/26 with EP; HFmrEF - TTE from 04/2024 with LV EF at 42% declined from prior echo 06/2021, global hypokinesis of LV -cont tele -Home meds: PO lasix 20mg every other day, jardiance 25mg daily, Xarelto; HOLD in setting of esophageal perforation/surgery -EP following peripherally Recs from 10/01: Impression: #SSS s/p MDT dcPPM 2021, progressed to permanent AF #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 Given anticipated prolonged hospitalization, will maintain somewhat higher safety margins on capture thresholds and higher HR - will ask device clinic to assess can revisit post-discharge. Regarding AC, given prolonged anticipated hospitalization and exam without evidence of CIED pocket hematoma, would start DVT ppx with SQH / but would not bridge with therapeutic anticoagulation given moderate thromboembolic risk and high bleeding risk with esophageal perforation. Discussed with Thoracic surgery service and Dr Jimenez - given anticipated protracted hospitalization and elevated risk of bleeding wit hacute illness, risk of bridging AC while admitted outweighs thromboembolic benefits, so would not therapeutically anticoagulate until ready for discharge. Specifically would not trial with heparin given elevated risk of pocket with hematoma on heparin over DOAC or warfarin ([employer]UISE CONTROL - https://www.nejm.org/doi/full/10.1056/ SCZDro9111924) Regarding central access, he is at elevated risk of CS lead dislodgement if has central line or catheter in the 4 weeks post implant, if a central line or a PICC line is planned would either perform under fluoroscopy (if jugular/subclavian access) Regarding left hand swelling - indication for laser lead extraction was left subclavian stenosis with occlusion, and this is likely still present after the device upgrade. Would manage conservatively with left arm elevation and avoid anticoagulation given chronic venous stenosis and high bleeding risk Regarding high pacing burden, this is the expected behavior of a biventricular pacemaker for PROPERTY CLAIM REP to maintain LV/RV synchrony. Would continue VVI 70 with biV triggering to 130 for now, can revisit as outpt if recovers from acute hospitalization Recommendations: -if current pip/tazo stopped, would complete 7d abx post-CIED with cefadroxil 500mg bid x7d (end 10/03) -activity restrictions added to discharge instructions and listed below -can restart prophylactic dose heparin 10/01 -no therapeutic anticoagulation while inpatient from EP standpoint, on discharge if felt can handle anticoagulation from Thoracic Surgery standpoint would restart home rivaroxaban -device clinic wound check and device check to be scheduled by device clinic in 4 weeks -if central lines required in the 4 weeks post pacemaker would prefer femoral given high risk of dislodging the passive-fixation coronary sinus lead newly implanted 09/26 and elevated risk of vascular injury with laser lead extraction. If tunneled central line required, would place with fluoroscopy and avoid interaction with CS lead Pulmonary: no acute issues. Breathing comfortably on RA. -daily CXR -encourage IS -Nebs PRN Renal: hypernatremia 148-->151-->153 ---> 149 - changed IVF to D5W at 50cc/hr - free water flushes ordered via J tube -daily BMP -replete lytes PRN GI: Esophageal perforation following ANTONIETTA s/p EGD with stent placement and PEG placement on 09/27; pt removed NG -NPO with occasional ice chips, occasional swabs -cont Zosyn and fluconazole (09/27-) for empiric coverage -PPI with protonix 40 daily -s/p IR for G-J conversion 10/02. - Isosource tube feeds via J tube currently at 20, increased to 30 10/04 Endocrinology: h/o T2DM -cont SSI -on home metformin 750 BID, Jardiance 25mg (holding) MSK: Chronic back pain; Lumbar radiculopathy - pain management with tylenol and gabapentin per home regimen -Home gabapentin 1200 TID (HELD)--will resume HS dosing via J tube -lidocaine patch, voltaren gel PRN, IV tylenol and dilaudid 0.4 q4h while NPO ID: afebrile; some leukocytosis (13.3 today) - likely post-op and steroid related; Esophageal perforation -cont empiric abx with fluconazole and Zosyn (09/27) -daily CBC -cont VS per protocol [ ] Decide when to stop empiric abx (fluconazole/zosyn 09/27-) for esophageal perforation DVT ppx: Contraindicated due to EP procedure unless otherwise specified by EP -subcutaneous heparin -will continue to evaluate when its ok to resume therapeutic AC--ok for hep gtt after G-J conversion per Dr. Nash (See Cards recs above) Dispo: -no CONI at this time -cont to assess home-going needs Patient seen and examined with Dr. Bae. Plan of care discussed with attending, Dr. Charity Palmer MD Thoracic surgery [id number] Cosigned by Kevin Carrillo MD at 10/05/2024 11:27 AM EDT Associated attestation - Kevin Marcus MD - 10/05/2024 11:27 AM EDT I saw and evaluated the patient. I personally obtained the chapin and critical portions of the history and physical exam or was physically present for chapin and critical portions performed by the resident/fellow. I reviewed the resident/fellow's documentation and discussed the patient with the resident/fellow. I agree with the resident/fellow's medical decision making as documented in the note. 10/03/24 1312 Discharge Planning Living Arrangements Children Support Systems Children Type of Residence Private residence Who is requesting discharge planning? Provider Home or Post Acute Services Post acute facilities (Rehab/SNF/etc) Expected Discharge Disposition SNF Does the patient need discharge transport arranged? Yes RoundTrip coordination needed? Yes Patient with no accepting skilled facilities. Additional referrals placed. Waiting for an accepting facility to discuss with family. Physical Therapy Physical Therapy Treatment Patient Name: Rocio Sandoval Department: [place] [address] Room: 309/3091-A Today's Date: 10/03/2024 Time Calculation Start Time: 1118 Stop Time: 1142 Time Calculation (min): 24 min Assessment/Plan PT Assessment Evaluation/Treatment Tolerance: Patient limited by fatigue Medical Staff Made Aware: Yes End of Session Communication: Bedside nurse (Notified RN of pt complaining of IV burning in R hand) Assessment Comment: Pt completed sit>stand from chair with modAx2, sat EOB ~8 min with CGAx1. Pt continues to demo decreased functional strength, decreased activity tolerance/endurance, impaired balance, and increased difficulty with functional mobility compared to baseline. Pt. will continue to benefit from skilled PT intervention while inpatient to address deficits and maximize return to PLOF. Pt remains appropriate for MOD intensity PT upon discharge. End of Session Patient Position: Bed, 3 rail up, Alarm off, not on at start of session PT Plan Inpatient/Swing Bed or Outpatient: Inpatient PT Plan Treatment/Interventions: Bed mobility, Transfer training, Gait training, Balance training, Strengthening, Endurance training, Range of motion, Therapeutic exercise, Therapeutic activity, Home exercise program PT Plan: Ongoing PT PT Frequency: 4 times per week PT Discharge Recommendations: Moderate intensity level of continued care Equipment Recommended upon Discharge: (TBD with further mobility assessment) PT Recommended Transfer Status: Assist x1, Assistive device PT - OK to Discharge: Yes General Visit Information: PT Visit PT Received On: 10/03/24 Response to Previous Treatment: Patient with no complaints from previous session. General Family/Caregiver Present: No Prior to Session Communication: Bedside nurse Patient Position Received: Up in chair, Alarm off, not on at start of session General Comment: Pt received seated in bedside chair. Pt reports feeling fatigued after sitting in chair ~1.5 hours, requesting to return to bed Subjective Precautions: Precautions Hearing/Visual Limitations: glasses Medical Precautions: Abdominal precautions, Cardiac precautions, Fall precautions Precautions Comment: SBP <180. L UE pacemaker precautions-no lifting, pushing/pulling Date/Time Vitals Session Patient Position Pulse Resp SpO2 BP MAP (mmHg) 10/03/24 1118 During PT -- 102 -- -- -- -- Objective Pain: Pain Assessment Pain Assessment: 0-10 0-10 (Numeric) Pain Score: 5 - Moderate pain Pain Type: Surgical pain Pain Location: Abdomen Cognition: Cognition Overall Cognitive Status: Within Functional Limits Orientation Level: Oriented X4 Activity Tolerance: Activity Tolerance Endurance: Tolerates 10 - 20 min exercise with multiple rests Early Mobility/Exercise Safety Screen: Proceed with mobilization - No exclusion criteria met Activity Tolerance Comments: Pt endorsing fatigue throughout session Treatments: Therapeutic Exercise Therapeutic Exercise Performed: Yes Therapeutic Exercise Activity 1: Seated in chair: APx15 markus, LAQx15 markus Therapeutic Activity Therapeutic Activity Performed: Yes Therapeutic Activity 1: Pt tolerated sitting EOB ~8 min following transfer. Emphasis on upright posture, midline positioning, and PLB. Pt endorsing fatigue and mild dizziness, requesting to return supine. Dizziness resolved upon return to supine Therapeutic Activity 2: Cues throughout session to adhere to PPM precautions Bed Mobility Bed Mobility: Yes Bed Mobility 1 Bed Mobility 1: Sitting to supine Level of Assistance 1: Moderate assistance, Moderate verbal cues Bed Mobility Comments 1: HOB elevated, cues for log roll, significant assist to elevate LEs onto bed Bed Mobility 2 Bed Mobility 2: Scooting Level of Assistance 2: Moderate assistance Bed Mobility Comments 2: Scoot x2 along EOB to L. Cues to refrain from pushing through L UE Ambulation/Gait Training Ambulation/Gait Training Performed: Yes Ambulation/Gait Training 1 Surface 1: Level tile Device 1: Rolling walker Assistance 1: Moderate assistance, Moderate verbal cues Quality of Gait 1: Wide base of support, Decreased step length, Inconsistent stride length, Forward flexed posture Comments/Distance (ft) 1: 3 ft chair>bed on R. Transfers Transfer: Yes Transfer 1 Transfer From 1: Chair with arms to Transfer to 1: Stand Technique 1: Sit to stand Transfer Device 1: Walker Transfer Level of Assistance 1: Moderate assistance, Moderate verbal cues, +2 Trials/Comments 1: Unsuccessful initial trial with x1 assist. Cues for proper UE placement and technique Transfers 2 Transfer From 2: Stand to Transfer to 2: Bed Technique 2: Stand to sit Transfer Device 2: Walker Transfer Level of Assistance 2: Moderate assistance, Moderate verbal cues Trials/Comments 2: Pt demos poor eccentric control with descent Stairs Stairs: No Outcome Measures: [facility] Basic Mobility Turning from your back to your side while in a flat bed without using bedrails: A lot Moving from lying on your back to sitting on the side of a flat bed without using bedrails: A lot Moving to and from bed to chair (including a wheelchair): A lot Standing up from a chair using your arms (e.g. wheelchair or bedside chair): Total To walk in hospital room: A lot Climbing 3-5 steps with railing: Total Basic Mobility - Total Score: 10 Education Documentation Precautions, taught by Christianne Hanna PT at 10/03/2024 12:03 PM. Learner: Patient Readiness: Acceptance Method: Explanation, Demonstration Response: Verbalizes Understanding Comment: ther ex, transfer techniques, activity pacing Body Mechanics, taught by Christianne Hanna PT at 10/03/2024 12:03 PM. Learner: Patient Readiness: Acceptance Method: Explanation, Demonstration Response: Verbalizes Understanding Comment: ther ex, transfer techniques, activity pacing Mobility Training, taught by Christianne Hanna PT at 10/03/2024 12:03 PM. Learner: Patient Readiness: Acceptance Method: Explanation, Demonstration Response: Verbalizes Understanding Comment: ther ex, transfer techniques, activity pacing Education Comments No comments found. OP EDUCATION: Encounter Problems Encounter Problems (Active) Balance Patient will maintain static/dynamic standing balance >5 minutes with LRAD and Tonia x1. (Progressing) Start: 09/29/24 Expected End: 10/13/24 Mobility Patient will ambulate >150 ft with LRAD and Tonia X1. (Progressing) Start: 09/29/24 Expected End: 10/13/24 PT Transfers Transfer from bed to chair with Tonia x1 and LRAD. (Progressing) Start: 09/29/24 Expected End: 10/13/24 Patient to transfer to and from sit to supine with minimal cueing for adherence to abdominal and LUE Wbing precautions and close supervision. (Progressing) Start: 09/29/24 Expected End: 10/13/24 Patient will transfer sit to and from stand with Tonia x1 and LRAD. (Progressing) Start: 09/29/24 Expected End: 10/13/24 Patient maintains LUE weight bearing status during transfers without cueing provided. (Progressing) Start: 09/29/24 Expected End: 10/13/24 Pain - Adult 10/03/24 at 12:04 PM - Christianne Hanna PT Thoracic Surgery Progress Note 10/03/2024 Rocio Sandoval is a 79 y.o. male with a history of A-fib, sick sinus syndrome, HFmrEF, HTN, HLD, ALISHA, T2DM admitted following elective CIED transvenous extraction and upgrade to Medtronic PROPERTY CLAIM REP-P for pacemaker induced cardiomyopathy, admitted to CICU for post procedural monitoring. Following procedure was found to have esophageal perforation with pneumomediastinum on CXR confirmed by subsequent CT chest noncon and CT chest w PO con. Thoracic surgery was consulted. He is now 6 Days Post-Op status post EGD with stent placement and PEG placement. Overnight issues: Yesterdsay, IR G-J conversion. Na 153. C/o abdominal soreness and overall just not feeling great. Physical Exam: General: He is a pleasant male currently in no distress, seen sitting up in bed. Sleepy. Visit Vitals BP 154/90 (BP Location: Right arm, Patient Position: Sitting) Pulse 93 Temp 36 C (96.8 F) (Temporal) Resp 18 Ht 1.88 m (6' 2) Wt 106 kg (234 lb) SpO2 97% BMI 30.04 kg/m Smoking Status Never BSA 2.35 m Body mass index is 30.04 kg/m . HEENT: Normocephalic and atraumatic. NECK: Supple. Trach midline. No JVD. CHEST: Breathing comfortably on RA. HEART: Regular rate and rhythm. Paced rhythm per tele review. ABDOMEN: Soft, flat, nontender. J-G tube capped. Secure with mesenteric tape. : good urine output last 24 hours via external cath NEUROLOGIC: Alert and oriented. Grossly intact. EXTREMITIES: Moves all extremities equally. Pedal pulses are palpable. No lower extremity edema. No calf tenderness. L >R UE swelling improving. Diagnostics: Intake/Output Summary (Last 24 hours) at 10/03/2024 1129 Last data filed at 10/03/2024 1016 Gross per 24 hour Intake 1948.33 ml Output 1325 ml Net 623.33 ml Results from last 7 days Lab Units 10/03/24 0646 10/02/24 0710/01/24 0635 WBC AUTO x10*3/uL 14.0* 12.6* 13.3* HEMOGLOBIN g/dL 15.6 15.7 16.2 HEMATOCRIT % 50.2 50.1 52.0 PLATELETS AUTO x10*3/uL 268 294 302 Results from last 7 days Lab Units 10/03/24 0646 10/02/24 0719 10/01/24 0635 SODIUM mmol/L 153* 151* 148* POTASSIUM mmol/L 3.8 3.9 3.8 CHLORIDE mmol/L 114* 115* 111* CO2 mmol/L 25 20* 19* BUN mg/dL 29* 35* 30* CREATININE mg/dL 0.84 0.92 0.87 GLUCOSE mg/dL 128* 122* 122* CALCIUM mg/dL 8.7 8.9 9.1 Results from last 7 days Lab Units 10/03/24 0646 10/02/24 0710/01/24 0635 SODIUM mmol/L 153* 151* 148* POTASSIUM mmol/L 3.8 3.9 3.8 CHLORIDE mmol/L 114* 115* 111* CO2 mmol/L 25 20* 19* BUN mg/dL 29* 35* 30* CREATININE mg/dL 0.84 0.92 0.87 GLUCOSE mg/dL 128* 122* 122* CALCIUM mg/dL 8.7 8.9 9.1 Scheduled medications [Held by provider] atorvastatin, 40 mg, oral, Nightly bisacodyl, 10 mg, rectal, Nightly [Held by provider] cetirizine, 10 mg, oral, Daily [Held by provider] empagliflozin, 25 mg, oral, Daily fluconazole, 400 mg, intravenous, q24h [Held by provider] furosemide, 20 mg, oral, Daily [Held by provider] gabapentin, 1,200 mg, oral, TID heparin (porcine), 5,000 Units, subcutaneous, q8h insulin lispro, 0-5 Units, subcutaneous, q6h lidocaine, 1 patch, transdermal, Daily [Held by provider] melatonin, 10 mg, oral, Nightly pantoprazole, 40 mg, intravenous, Daily piperacillin-tazobactam, 3.375 g, intravenous, q6h potassium chloride, 20 mEq, intravenous, Once [Held by provider] tamsulosin, 0.4 mg, oral, Daily Continuous medications PRN medications PRN medications: dextrose, dextrose, diclofenac sodium, glucagon, glucagon, hydrALAZINE, ketorolac, morphine, trimethobenzamide Imaging: AM CXR reviewed. Expected post op changes and esophageal stent placement. No clinically significant pneumothorax or effusion. No formal report at this time. Assessment: Rocio Sandoval is a 79 y.o. male with history of hypertension, heart failure with reduced ejection fraction ALISHA type 2 diabetes sick sinus syndrome who presented for TV pacer extraction with upgrade to PROPERTY CLAIM REP-P biventricular pacer. 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 Patient underwent ANTONIETTA intraoperatively. Postoperatively had a chest x-ray performed demonstrating possible pneumomediastinum. He had a noncontrasted CT chest demonstrating pneumomediastinum. Of note, patient tolerated full dinner and clears well this evening having no abdominal pain otherwise hemodynamically stable. Patient had a CT chest with IV and p.o. contrast demonstrating a perforation at the posterior aspect of the GEJ concerning for esophageal perforation/injury. He underwent EGD with esophageal stent placement 150 x 23 distal end at 40 cm and PEG tube placement on 09/27. 09/30: transferred to [facility]. Self removal of NGT. Na 146 10/01: IR consulted G-J conversion. Na 148 10/02: IR G-J conversion completed. Unsuccessful attempt at TF initiation 08/03 equipment. Na 151-Z2qllms ordered for mIVF. 10/03; tube feeds initiated. Na 153. Plan: Neuro: h/o Headaches; surgical pain -Prescribed prednisone taper by PCP on 09/18, transitioned to IV methylpred while NPO, now discontinued. -cont IV analgesics PRN and scheduled IV APAP Cardiology: h/o Permanent afib, Sick sinus syndrome, Pacemaker induced cardiomyopathy, Post CIED transvenous extraction, and upgrade to Medtronic PROPERTY CLAIM REP-P; Underwent transvenous lead extraction of medtronic dual chamber pacemaker and implant of medtronic biventricular pacemaker on 09/26 with EP; HFmrEF - TTE from 04/2024 with LV EF at 42% declined from prior echo 06/2021, global hypokinesis of LV -cont tele -Home meds: PO lasix 20mg every other day, jardiance 25mg daily, Xarelto; HOLD in setting of esophageal perforation/surgery -EP following peripherally Recs from 10/01: Impression: #SSS s/p MDT dcPPM 2021, progressed to permanent AF #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 Given anticipated prolonged hospitalization, will maintain somewhat higher safety margins on capture thresholds and higher HR - will ask device clinic to assess can revisit post-discharge. Regarding AC, given prolonged anticipated hospitalization and exam without evidence of CIED pocket hematoma, would start DVT ppx with SQH 10/01 but would not bridge with therapeutic anticoagulation given moderate thromboembolic risk and high bleeding risk with esophageal perforation. Discussed with Thoracic surgery service and Dr Jimenez - given anticipated protracted hospitalization and elevated risk of bleeding wit hacute illness, risk of bridging AC while admitted outweighs thromboembolic benefits, so would not therapeutically anticoagulate until ready for discharge. Specifically would not trial with heparin given elevated risk of pocket with hematoma on heparin over DOAC or warfarin (BRUISE CONTROL - https://www.nejm.org/doi/full/10.1056/ FXPLqd7790376) Regarding central access, he is at elevated risk of CS lead dislodgement if has central line or catheter in the 4 weeks post implant, if a central line or a PICC line is planned would either perform under fluoroscopy (if jugular/subclavian access) Regarding left hand swelling - indication for laser lead extraction was left subclavian stenosis with occlusion, and this is likely still present after the device upgrade. Would manage conservatively with left arm elevation and avoid anticoagulation given chronic venous stenosis and high bleeding risk Regarding high pacing burden, this is the expected behavior of a biventricular pacemaker for PROPERTY CLAIM REP to maintain LV/RV synchrony. Would continue VVI 70 with biV triggering to 130 for now, can revisit as outpt if recovers from acute hospitalization Recommendations: -if current pip/tazo stopped, would complete 7d abx post-CIED with cefadroxil 500mg bid x7d (end 10/03) -activity restrictions added to discharge instructions and listed below -can restart prophylactic dose heparin 10/01 -no therapeutic anticoagulation while inpatient from EP standpoint, on discharge if felt can handle anticoagulation from Thoracic Surgery standpoint would restart home rivaroxaban -device clinic wound check and device check to be scheduled by device clinic in 4 weeks -if central lines required in the 4 weeks post pacemaker would prefer femoral given high risk of dislodging the passive-fixation coronary sinus lead newly implanted 09/26 and elevated risk of vascular injury with laser lead extraction. If tunneled central line required, would place with fluoroscopy and avoid interaction with CS lead Pulmonary: no acute issues. Breathing comfortably on RA. -daily CXR -encourage IS -Nebs PRN Renal: hypernatremia 148-->151-->153 today - changed IVF to D5W at 50cc/hr yesterday - free water flushes ordered via J tube -daily BMP -replete lytes PRN GI: Esophageal perforation following ANTONIETTA s/p EGD with stent placement and PEG placement on 09/27; pt removed NG overnight -NPO with occasional ice chips, occasional swabs -cont Zosyn and fluconazole (09/27-) for empiric coverage -PPI with protonix 40 daily -s/p IR for G-J conversion 10/02. - Isosource tube feeds via J tube to goal. Endocrinology: h/o T2DM -cont SSI -on home metformin 750 BID, Jardiance 25mg (holding) MSK: Chronic back pain; Lumbar radiculopathy - pain management with tylenol and gabapentin per home regimen -Home gabapentin 1200 TID (HELD)--will resume HS dosing via J tube -lidocaine patch, voltaren gel PRN, IV tylenol and dilaudid 0.4 q4h while NPO ID: afebrile; some leukocytosis (13.3 today) - likely post-op and steroid related; Esophageal perforation -cont empiric abx with fluconazole and Zosyn (09/27) -daily CBC -cont VS per protocol [ ] Decide when to stop empiric abx (fluconazole/zosyn 09/27-) for esophageal perforation DVT ppx: Contraindicated due to EP procedure unless otherwise specified by EP -subcutaneous heparin -will continue to evaluate when its ok to resume therapeutic AC--ok for hep gtt after G-J conversion per Dr. Nash (See Cards recs above) Dispo: -no CONI at this time -cont to assess home-going needs Patient seen and examined by this provider. Plan of care discussed with attending, SANDY Estrada Occupational Therapy Occupational Therapy Treatment Name: Rcoio Sandoval : 1945 Date: 10/03/24 Room: [address] [place] [address]-A Time Calculation Start Time: 917 Stop Time: 946 Time Calculation (min): 29 min Assessment: OT Assessment: Pt demos improved funcitonal mobility, transfers, and ADL participation on this date w/ STS Mod A, lateral transfer Mod A, Sup>Sit Mod, UB ADLs Tonia, Continued skilled OT services are indicated at MOD intensity to allow for a safe and functional d/c. Prognosis: Good Barriers to Discharge Home: Caregiver assistance, Physical needs Caregiver Assistance: Caregiver assistance needed per identified barriers - however, level of patient's required assistance exceeds assistance available at home Physical Needs: Intermittent mobility assistance needed, Intermittent ADL assistance needed, High falls risk due to function or environment, Ambulating household distances limited by function/safety Evaluation/Treatment Tolerance: Patient tolerated treatment well Medical Staff Made Aware: Yes End of Session Communication: Bedside nurse End of Session Patient Position: Up in chair, Alarm off, not on at start of session Plan: Treatment Interventions: ADL retraining, Functional transfer training, UE strengthening/ROM, Endurance training, Cognitive reorientation, Patient/family training, Equipment evaluation/education, Compensatory technique education OT Frequency: 3 times per week OT Discharge Recommendations: Moderate intensity level of continued care Equipment Recommended upon Discharge: (TBD) OT Recommended Transfer Status: Moderate assist, Assist of 1 OT - OK to Discharge: Yes Subjective General: OT Last Visit OT Received On: 10/03/24 Reason for Referral: Presented for elective CEID, s/p Transvenous Lead Extraction of Medtronic Dual chamber pacemaker And Implant of Medtronic Biventricular pacemaker with Plugged RA lead (09/26). Postoperatively, had chest x-ray and noncontrasted CT chest demonstrating pneumomediastinum. CT chest with IV and p.o. contrast showed concerning for esophageal perforation/injury. S/p EGD, PEG tube placement, esophageal stent placement (09/27). Past Medical History Relevant to Rehab: afib, sick sinus syndrome, HFmrEF, HTN, HLD, ALISHA, T2DM Prior to Session Communication: Bedside nurse Patient Position Received: Bed, 3 rail up, Alarm off, not on at start of session Family/Caregiver Present: No General Comment: Pt sup in bed on approach. pleasant and agreeable to OT session despite feeling weak. Precautions: Hearing/Visual Limitations: Glasses Medical Precautions: Abdominal precautions, Cardiac precautions, Fall precautions Precautions Comment: SBP <180.. L UE pacemaker precautions-no lifting, pushing/pulling Vitals: Date/Time Vitals Session Patient Position Pulse Resp SpO2 BP MAP (mmHg) 10/03/24 0918 Post OT -- 98 -- -- -- -- 10/03/24 1016 -- -- 93 18 97 % 154/90 111 Lines/Tubes/Drains: Gastrostomy/Enterostomy Jejunostomy 1 10.2 Fr. LUQ (Active) Number of days: 0 External Urinary Catheter Male (Active) Number of days: 5 Cognition: Overall Cognitive Status: Within Functional Limits Orientation Level: Oriented X4 Pain Assessment: Pain Assessment Pain Assessment: 0-10 0-10 (Numeric) Pain Score: 7 Pain Type: Acute pain, Surgical pain Pain Location: Abdomen Pain Orientation: (site of PEG) Objective Activities of Daily Living: Grooming Grooming Comments: TD applying lotion to back UE Bathing UE Bathing Level of Assistance: Moderate assistance UE Bathing Where Assessed: Edge of bed UE Bathing Comments: Assist for back and cues for throughness LE Bathing LE Bathing Where Assessed: Edge of bed LE Bathing Comments: s/u washing tops of legs and marie area UE Dressing UE Dressing Level of Assistance: Minimum assistance UE Dressing Where Assessed: Edge of bed UE Dressing Comments: hosptial gown Bed Mobility/Transfers: Bed Mobility Bed Mobility: Yes Bed Mobility 1 Bed Mobility 1: Supine to sitting Level of Assistance 1: Moderate assistance Bed Mobility Comments 1: HOB elevated, cues for log roll, use of draw sheet and assist to right trunk Transfer 1 Transfer From 1: Bed to Transfer to 1: Chair with drop arm Technique 1: Lateral Transfer Device 1: (No AD) Transfer Level of Assistance 1: Moderate assistance Trials/Comments 1: Lateral scoot to chair w/ use of draw sheet for transfer and verbal cues for sequencing Transfers 2 Transfer From 2: Chair with arms to Transfer to 2: Stand Technique 2: Sit to stand Transfer Device 2: (Arm in Arm) Transfer Level of Assistance 2: Moderate assistance Trials/Comments 2: emerging Min A Balance: Dynamic Sitting Balance Dynamic Sitting-Balance Support: Feet supported Dynamic Sitting-Level of Assistance: Close supervision Dynamic Sitting-Balance: (bathing and dressing while seated EOB) Dynamic Sitting-Comments: ~20 min Outcome Measures: [facility] Daily Activity Putting on and taking off regular lower body clothing: A lot Bathing (including washing, rinsing, drying): A lot Putting on and taking off regular upper body clothing: A little Toileting, which includes using toilet, bedpan or urinal: A lot Taking care of personal grooming such as brushing teeth: A little Eating Meals: Total (NPO) Daily Activity - Total Score: 13 Education Documentation Body Mechanics, taught by Miriam Rolon OT at 10/03/2024 10:20 AM. Learner: Patient Readiness: Acceptance Method: Explanation Response: Verbalizes Understanding Precautions, taught by Miriam Rolon OT at 10/03/2024 10:20 AM. Learner: Patient Readiness: Acceptance Method: Explanation Response: Verbalizes Understanding ADL Training, taught by Miriam Rolon OT at 10/03/2024 10:20 AM. Learner: Patient Readiness: Acceptance Method: Explanation Response: Verbalizes Understanding Education Comments No comments found. Goals: Encounter Problems Encounter Problems (Active) ADLs Patient will perform UB and LB bathing with supervision using AE PRN. (Progressing) Start: 09/29/24 Expected End: 10/13/24 Patient with complete upper body dressing with Mod I. (Progressing) Start: 09/29/24 Expected End: 10/13/24 Patient with complete lower body dressing with supervision using AE PRN. (Progressing) Start: 09/29/24 Expected End: 10/13/24 Patient will complete daily grooming tasks with Mod I. (Progressing) Start: 09/29/24 Expected End: 10/13/24 Patient will complete toileting including hygiene clothing management/hygiene with supervision. (Progressing) Start: 09/29/24 Expected End: 10/13/24 ADLs Pt will complete ADL/IADL tasks with Mod I-supervision using 2/3 EC/WS principles as needed with good safety awareness. (Progressing) Start: 09/29/24 Expected End: 10/13/24 COGNITION/SAFETY Patient will score WFL on standardized cognitive assessment within reasonable time frame (Progressing) Start: 09/29/24 Expected End: 10/13/24 MOBILITY Pt will perform functional mobility household distances with supervision using LRAD without LOB and demonstrating good safety awareness. (Progressing) Start: 09/29/24 Expected End: 10/13/24 TRANSFERS Pt will perform bed mobility in simulated home environment with Mod I. (Progressing) Start: 09/29/24 Expected End: 10/13/24 Pt will perform functional transfers on various surfaces with supervision using LRAD with good safety awareness. (Progressing) Start: 09/29/24 Expected End: 10/13/24 10/03/24 at 10:21 AM MIRIAM ROLON, OT [phone] Physical Therapy Physical Therapy Treatment Patient Name: Rocio Sandoval [place] [id number] Room: [address] [place] [address] Today's Date: 10/02/2024 Time Calculation Start Time: 1114 Stop Time: 1153 Time Calculation (min): 39 min Assessment/Plan PT Assessment Barriers to Discharge Home: Caregiver assistance, Physical needs, Cognition needs Caregiver Assistance: Caregiver assistance needed per identified barriers - however, level of patient's required assistance exceeds assistance available at home Cognition Needs: Recollection or understanding of precautions/restrictions limited, Recollection or understanding of home exercise program limited, Insight of patient limited regarding functional ability/needs, Cognition-related high falls risk Physical Needs: 24hr mobility assistance needed, 24hr ADL assistance needed, Ambulating household distances limited by function/safety, In-home setup navigation limited by function/safety, High falls risk due to function or environment, Weight bearing precautions unable to be safely maintained Evaluation/Treatment Tolerance: Patient limited by fatigue Medical Staff Made Aware: Yes End of Session Communication: Bedside nurse Assessment Comment: Pt completed bed mobility with maxAx1, sit<>stand with modAx1, and ambulated short distance from bed>chair with modAx1. Pt continues to demo decreased functional strength, decreased activity tolerance/endurance, impaired balance, and increased difficulty with functional mobility compared to baseline. Pt. will continue to benefit from skilled PT intervention while inpatient to address deficits and maximize return to PLOF. Pt is a HIGH falls risk and remains appropriate for MOD intensity PT upon discharge. End of Session Patient Position: Up in chair, Alarm off, not on at start of session PT Plan Inpatient/Swing Bed or Outpatient: Inpatient PT Plan Treatment/Interventions: Bed mobility, Transfer training, Gait training, Balance training, Strengthening, Endurance training, Range of motion, Therapeutic exercise, Therapeutic activity, Home exercise program PT Plan: Ongoing PT PT Frequency: 4 times per week PT Discharge Recommendations: Moderate intensity level of continued care Equipment Recommended upon Discharge: (TBD with further mobility assessment) PT Recommended Transfer Status: Assist x1, Assistive device PT - OK to Discharge: Yes General Visit Information: PT Visit PT Received On: 10/02/24 Response to Previous Treatment: Patient with no complaints from previous session. General Family/Caregiver Present: Yes Caregiver Feedback: Sports Administrator and daughter present, supportive Prior to Session Communication: Bedside nurse Patient Position Received: Bed, 3 rail up, Alarm off, not on at start of session General Comment: Pt received supine in bed, agreeable to participate in session. Subjective Precautions: Precautions Medical Precautions: Abdominal precautions, Cardiac precautions, Fall precautions Precautions Comment: SBP <180.. L UE pacemaker precautions-no lifting, pushing/pulling Objective Pain: Pain Assessment Pain Assessment: 0-10 0-10 (Numeric) Pain Score: 4 Pain Type: Acute pain Pain Location: Abdomen Pain Interventions: Repositioned Cognition: Cognition Overall Cognitive Status: Within Functional Limits Orientation Level: Oriented X4 Following Commands: Follows one step commands with repetition Activity Tolerance: Activity Tolerance Endurance: Tolerates 10 - 20 min exercise with multiple rests Early Mobility/Exercise Safety Screen: Proceed with mobilization - No exclusion criteria met Treatments: Therapeutic Exercise Therapeutic Exercise Performed: Yes Therapeutic Exercise Activity 1: L executive 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 Emphasis on upright posture, PLB, midline positioning Therapeutic Activity 3: Pt stood statically ~2 min, markus UE support on FWW with cues to avoid pushing through L UE. Cues for upright posture, forward gaze, and PLB. ModAx1 for static standing balance Bed Mobility Bed Mobility: Yes Bed Mobility 1 Bed Mobility 1: Supine to sitting Level of Assistance 1: Maximum assistance, Maximum verbal cues Bed Mobility Comments 1: HOB elevated, cues for log roll, use of draw sheet, significant assist to upright trunk Ambulation/Gait Training Ambulation/Gait Training Performed: Yes Ambulation/Gait Training 1 Surface 1: Level tile Device 1: Rolling walker Assistance 1: Moderate assistance, Moderate verbal cues Quality of Gait 1: Wide base of support, Decreased step length, Inconsistent stride length Comments/Distance (ft) 1: 3 ft bed>chair on L Transfers Transfer: Yes Transfer 1 Transfer From 1: Bed to Transfer to 1: Stand Technique 1: Sit to stand Transfer Device 1: Walker Transfer Level of Assistance 1: Moderate assistance, Moderate verbal cues Trials/Comments 1: bed elevated to improve ease. Cues for proper UE placement and technique. Transfers 2 Transfer From 2: Stand to Transfer to 2: Chair with arms Technique 2: Stand to sit Transfer Device 2: Walker Transfer Level of Assistance 2: Moderate assistance, Moderate verbal cues Trials/Comments 2: Demos decreased eccentric control with descent to chair Stairs Stairs: No Outcome Measures: [facility] Basic Mobility Turning from your back to your side while in a flat bed without using bedrails: A lot Moving from lying on your back to sitting on the side of a flat bed without using bedrails: A lot Moving to and from bed to chair (including a wheelchair): A lot Standing up from a chair using your arms (e.g. wheelchair or bedside chair): A lot To walk in hospital room: A lot Climbing 3-5 steps with railing: Total Basic Mobility - Total Score: 11 Education Documentation Precautions, taught by Christianne Hanna, PT at 10/02/2024 1:41 PM. Learner: Family, Patient Readiness: Acceptance Method: Explanation, Demonstration Response: Verbalizes Understanding, Needs Reinforcement Comment: transfer techniques, activity pacing, ther ex, postural awareness, PPM precautions Body Mechanics, taught by Christianne Hanna, PT at 10/02/2024 1:41 PM. Learner: Family, Patient Readiness: Acceptance Method: Explanation, Demonstration Response: Verbalizes Understanding, Needs Reinforcement Comment: transfer techniques, activity pacing, ther ex, postural awareness, PPM precautions Home Exercise Program, taught by Christianne Hanna, PT at 10/02/2024 1:41 PM. Learner: Family, Patient Readiness: Acceptance Method: Explanation, Demonstration Response: Verbalizes Understanding, Needs Reinforcement Comment: transfer techniques, activity pacing, ther ex, postural awareness, PPM precautions Mobility Training, taught by Christianne Hanna, PT at 10/02/2024 1:41 PM. Learner: Family, Patient Readiness: Acceptance Method: Explanation, Demonstration Response: Verbalizes Understanding, Needs Reinforcement Comment: transfer techniques, activity pacing, ther ex, postural awareness, PPM precautions Education Comments No comments found. OP EDUCATION: Encounter Problems Encounter Problems (Active) Balance Patient will maintain static/dynamic standing balance >5 minutes with LRAD and Tonia x1. (Progressing) Start: 09/29/24 Expected End: 10/13/24 Mobility Patient will ambulate >150 ft with LRAD and Tonia X1. (Progressing) Start: 09/29/24 Expected End: 10/13/24 PT Transfers Transfer from bed to chair with Tonia x1 and LRAD. (Progressing) Start: 09/29/24 Expected End: 10/13/24 Patient to transfer to and from sit to supine with minimal cueing for adherence to abdominal and LUE Wbing precautions and close supervision. (Progressing) Start: 09/29/24 Expected End: 10/13/24 Patient will transfer sit to and from stand with Tonia x1 and LRAD. (Progressing) Start: 09/29/24 Expected End: 10/13/24 Patient maintains LUE weight bearing status during transfers without cueing provided. (Progressing) Start: 09/29/24 Expected End: 10/13/24 Pain - Adult 10/02/24 at 1:43 PM - Christianne Hanna PT Thoracic Surgery Progress Note 10/02/2024 Rocio Sandoval is a 79 y.o. male with a history of A-fib, sick sinus syndrome, HFmrEF, HTN, HLD, ALISHA, T2DM admitted following elective CIED transvenous extraction and upgrade to Medtronic PROPERTY CLAIM REP-P for pacemaker induced cardiomyopathy, admitted to CICU for post procedural monitoring. Following procedure was found to have esophageal perforation with pneumomediastinum on CXR confirmed by subsequent CT chest noncon and CT chest w PO con. Thoracic surgery was consulted. He is now 5 Days Post-Op status post EGD with stent placement and PEG placement. Overnight issues: No acute events overnight. Awaiting IR G-J conversion. Na 151. Physical Exam: General: He is a pleasant male currently in no distress, seen sitting up in bed. Sleepy. Visit Vitals BP 171/89 (BP Location: Right arm, Patient Position: Lying) Pulse 90 Temp 36 C (96.8 F) (Temporal) Resp 18 Ht 1.88 m (6' 2) Wt 106 kg (234 lb) SpO2 94% BMI 30.04 kg/m Smoking Status Never BSA 2.35 m Body mass index is 30.04 kg/m . HEENT: Normocephalic and atraumatic. NECK: Supple. Trach midline. No JVD. CHEST: Breathing comfortably on RA. HEART: Regular rate and rhythm. Paced rhythm per tele review. ABDOMEN: Soft, flat, nontender. G tube to gravity drainage. : good urine output last 24 hours via external cath NEUROLOGIC: Alert and oriented. Grossly intact. EXTREMITIES: Moves all extremities equally. Pedal pulses are palpable. No lower extremity edema. No calf tenderness. L >R UE swelling. Diagnostics: Intake/Output Summary (Last 24 hours) at 10/02/2024 1116 Last data filed at 10/02/2024 0641 Gross per 24 hour Intake 642 ml Output 850 ml Net -208 ml Results from last 7 days Lab Units 10/02/24 0719 10/01/24 0635 09/30/24 0037 WBC AUTO x10*3/uL 12.6* 13.3* 17.3* HEMOGLOBIN g/dL 15.7 16.2 14.3 HEMATOCRIT % 50.1 52.0 43.3 PLATELETS AUTO x10*3/uL 294 302 238 Results from last 7 days Lab Units 10/02/24 0719 10/01/24 0635 09/30/24 1717 SODIUM mmol/L 151* 148* 146* POTASSIUM mmol/L 3.9 3.8 4.6 CHLORIDE mmol/L 115* 111* 110* CO2 mmol/L 20* 19* 18* BUN mg/dL 35* 30* 28* CREATININE mg/dL 0.92 0.87 0.69 GLUCOSE mg/dL 122* 122* 123* CALCIUM mg/dL 8.9 9.1 8.9 Results from last 7 days Lab Units 10/02/24 0710/01/24 0635 09/30/24 1717 SODIUM mmol/L 151* 148* 146* POTASSIUM mmol/L 3.9 3.8 4.6 CHLORIDE mmol/L 115* 111* 110* CO2 mmol/L 20* 19* 18* BUN mg/dL 35* 30* 28* CREATININE mg/dL 0.92 0.87 0.69 GLUCOSE mg/dL 122* 122* 123* CALCIUM mg/dL 8.9 9.1 8.9 Scheduled medications acetaminophen, 1,000 mg, intravenous, q6h [Held by provider] atorvastatin, 40 mg, oral, Nightly bisacodyl, 10 mg, rectal, Nightly [Held by provider] cetirizine, 10 mg, oral, Daily [Held by provider] empagliflozin, 25 mg, oral, Daily fluconazole, 400 mg, intravenous, q24h [Held by provider] furosemide, 20 mg, oral, Daily [Held by provider] gabapentin, 1,200 mg, oral, TID heparin (porcine), 5,000 Units, subcutaneous, q8h insulin lispro, 0-5 Units, subcutaneous, q6h lidocaine, 1 patch, transdermal, Daily [Held by provider] melatonin, 10 mg, oral, Nightly pantoprazole, 40 mg, intravenous, Daily piperacillin-tazobactam, 3.375 g, intravenous, q6h [Held by provider] tamsulosin, 0.4 mg, oral, Daily Continuous medications dextrose 5%, 75 mL/hr PRN medications PRN medications: dextrose, dextrose, diclofenac sodium, glucagon, glucagon, hydrALAZINE, ketorolac, morphine, trimethobenzamide Imaging: AM CXR reviewed. Expected post op changes and esophageal stent placement. No clinically significant pneumothorax or effusion. No formal report at this time. Assessment: Rocio Sandoval is a 79 y.o. male with history of hypertension, heart failure with reduced ejection fraction ALISAH type 2 diabetes sick sinus syndrome who presented for TV pacer extraction with upgrade to PROPERTY CLAIM REP-P biventricular pacer. 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 Patient underwent ANTONIETTA intraoperatively. Postoperatively had a chest x-ray performed demonstrating possible pneumomediastinum. He had a noncontrasted CT chest demonstrating pneumomediastinum. Of note, patient tolerated full dinner and clears well this evening having no abdominal pain otherwise hemodynamically stable. Patient had a CT chest with IV and p.o. contrast demonstrating a perforation at the posterior aspect of the GEJ concerning for esophageal perforation/injury. He underwent EGD with esophageal stent placement 150 x 23 distal end at 40 cm and PEG tube placement on 09/27. 09/30: transferred to [facility]. Self removal of NGT. 10/01: IR consult for G-J conversion Plan: Neuro: h/o Headaches; surgical pain -Prescribed prednisone taper by PCP on 09/18, transitioned to IV methylpred while NPO, now discontinued. -cont IV analgesics PRN and scheduled IV APAP Cardiology: h/o Permanent afib, Sick sinus syndrome, Pacemaker induced cardiomyopathy, Post CIED transvenous extraction, and upgrade to Medtronic PROPERTY CLAIM REP-P; Underwent transvenous lead extraction of medtronic dual chamber pacemaker and implant of medtronic biventricular pacemaker on 09/26 with EP; HFmrEF - TTE from 04/2024 with LV EF at 42% declined from prior echo 06/2021, global hypokinesis of LV -cont tele -Home meds: PO lasix 20mg every other day, jardiance 25mg daily, Xarelto; HOLD in setting of esophageal perforation/surgery -EP following peripherally Recs from 10/01: Impression: #SSS s/p MDT dcPPM 2021, progressed to permanent AF #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 Given anticipated prolonged hospitalization, will maintain somewhat higher safety margins on capture thresholds and higher HR - will ask device clinic to assess can revisit post-discharge. Regarding AC, given prolonged anticipated hospitalization and exam without evidence of CIED pocket hematoma, would start DVT ppx with SQH 10/01 but would not bridge with therapeutic anticoagulation given moderate thromboembolic risk and high bleeding risk with esophageal perforation. Discussed with Thoracic surgery service and Dr Jimenez - given anticipated protracted hospitalization and elevated risk of bleeding wit hacute illness, risk of bridging AC while admitted outweighs thromboembolic benefits, so would not therapeutically anticoagulate until ready for discharge. Specifically would not trial with heparin given elevated risk of pocket with hematoma on heparin over DOAC or warfarin ([employer] CONTROL - https://www.nejm.org/doi/full/10.1056/ RLUSgw0844727) Regarding central access, he is at elevated risk of CS lead dislodgement if has central line or catheter in the 4 weeks post implant, if a central line or a PICC line is planned would either perform under fluoroscopy (if jugular/subclavian access) Regarding left hand swelling - indication for laser lead extraction was left subclavian stenosis with occlusion, and this is likely still present after the device upgrade. Would manage conservatively with left arm elevation and avoid anticoagulation given chronic venous stenosis and high bleeding risk Regarding high pacing burden, this is the expected behavior of a biventricular pacemaker for PROPERTY CLAIM REP to maintain LV/RV synchrony. Would continue VVI 70 with biV triggering to 130 for now, can revisit as outpt if recovers from acute hospitalization Recommendations: -if current pip/tazo stopped, would complete 7d abx post-CIED with cefadroxil 500mg bid x7d (end 10/03) -activity restrictions added to discharge instructions and listed below -can restart prophylactic dose heparin 10/01 -no therapeutic anticoagulation while inpatient from EP standpoint, on discharge if felt can handle anticoagulation from Thoracic Surgery standpoint would restart home rivaroxaban -device clinic wound check and device check to be scheduled by device clinic in 4 weeks -if central lines required in the 4 weeks post pacemaker would prefer femoral given high risk of dislodging the passive-fixation coronary sinus lead newly implanted 09/26 and elevated risk of vascular injury with laser lead extraction. If tunneled central line required, would place with fluoroscopy and avoid interaction with CS lead Pulmonary: no acute issues. Breathing comfortably on RA. -daily CXR -encourage IS -Nebs PRN Renal: hypernatremia 148-->151 today - change IVF to D5W at 50cc/hr. -daily BMP -replete lytes PRN GI: Esophageal perforation following ANTONIETTA s/p EGD with stent placement and PEG placement on 09/27; pt removed NG overnight -NPO with occasional ice chips, occasional swabs -cont Zosyn and fluconazole (09/27-) for empiric coverage -PPI with protonix 40 daily -PEG to gd. - IR for G-J conversion Endocrinology: h/o T2DM -cont SSI -on home metformin 750 BID, Jardiance 25mg (holding) MSK: Chronic back pain; Lumbar radiculopathy - pain management with tylenol and gabapentin per home regimen -Home gabapentin 1200 TID (HELD) -lidocaine patch, voltaren gel PRN, IV tylenol and dilaudid 0.4 q4h while NPO ID: afebrile; some leukocytosis (13.3 today) - likely post-op and steroid related; Esophageal perforation -cont empiric abx with fluconazole and Zosyn (09/27) -daily CBC -cont VS per protocol [ ] Decide when to stop empiric abx (fluconazole/zosyn 09/27-) for esophageal perforation DVT ppx: Contraindicated due to EP procedure unless otherwise specified by EP -subcutaneous heparin -will continue to evaluate when its ok to resume therapeutic AC--ok for hep gtt after G-J conversion per Dr. Nash (See Cards recs above) Dispo: -no CONI at this time -cont to assess home-going needs Patient seen and examined by this provider. Plan of care discussed with attending, Dr. Charity Resendiz APRN-GIO Thoracic Surgery Progress Note 10/01/2024 Rocio Sandoval is a 79 y.o. male with a history of A-fib, sick sinus syndrome, HFmrEF, HTN, HLD, ALISHA, T2DM admitted following elective CIED transvenous extraction and upgrade to Medtronic PROPERTY CLAIM REP-P for pacemaker induced cardiomyopathy, admitted to CICU for post procedural monitoring. Following procedure was found to have esophageal perforation with pneumomediastinum on CXR confirmed by subsequent CT chest noncon and CT chest w PO con. Thoracic surgery was consulted. He is now 4 Days Post-Op status post EGD with stent placement and PEG placement. Overnight issues: transferred to [facility] last PM. No acute events overnight. C/o heartburn this AM. IR consult for G-J conversion. Physical Exam: General: He is a pleasant male currently in no distress, seen sitting up in bed. Visit Vitals BP 164/80 (BP Location: Left arm, Patient Position: Lying) Pulse 93 Temp 36 C (96.8 F) (Temporal) Resp 16 Ht 1.88 m (6' 2) Wt 106 kg (234 lb) SpO2 95% BMI 30.04 kg/m Smoking Status Never BSA 2.35 m Body mass index is 30.04 kg/m . HEENT: Normocephalic and atraumatic. NECK: Supple. Trach midline. No JVD. CHEST: Breathing comfortably on RA. HEART: Regular rate and rhythm. Paced rhythm per tele review. ABDOMEN: Soft, flat, nontender. G tube to gravity drainage. : good urine output last 24 hours via external cath NEUROLOGIC: Alert and oriented. Grossly intact. EXTREMITIES: Moves all extremities equally. Pedal pulses are palpable. No lower extremity edema. No calf tenderness. Diagnostics: Intake/Output Summary (Last 24 hours) at 10/01/2024 1156 Last data filed at 10/01/2024 1059 Gross per 24 hour Intake 999.17 ml Output 1280 ml Net -280.83 ml Results from last 7 days Lab Units 10/01/24 0635 09/30/24 0037 09/29/24 0119 WBC AUTO x10*3/uL 13.3* 17.3* 19.2* HEMOGLOBIN g/dL 16.2 14.3 14.9 HEMATOCRIT % 52.0 43.3 48.2 PLATELETS AUTO x10*3/uL 302 238 236 Results from last 7 days Lab Units 10/01/24 0635 09/30/24 1717 09/30/24 0038 SODIUM mmol/L 148* 146* 147* POTASSIUM mmol/L 3.8 4.6 3.7 CHLORIDE mmol/L 111* 110* 100 CO2 mmol/L 19* 18* 19* BUN mg/dL 30* 28* 28* CREATININE mg/dL 0.87 0.69 0.75 GLUCOSE mg/dL 122* 123* 142* CALCIUM mg/dL 9.1 8.9 8.4* Results from last 7 days Lab Units 10/01/24 0635 09/30/24 1717 09/30/24 0038 SODIUM mmol/L 148* 146* 147* POTASSIUM mmol/L 3.8 4.6 3.7 CHLORIDE mmol/L 111* 110* 100 CO2 mmol/L 19* 18* 19* BUN mg/dL 30* 28* 28* CREATININE mg/dL 0.87 0.69 0.75 GLUCOSE mg/dL 122* 123* 142* CALCIUM mg/dL 9.1 8.9 8.4* Scheduled medications acetaminophen, 1,000 mg, intravenous, q6h [Held by provider] atorvastatin, 40 mg, oral, Nightly bisacodyl, 10 mg, rectal, Nightly [Held by provider] cetirizine, 10 mg, oral, Daily [Held by provider] empagliflozin, 25 mg, oral, Daily fluconazole, 400 mg, intravenous, q24h [Held by provider] furosemide, 20 mg, oral, Daily [Held by provider] gabapentin, 1,200 mg, oral, TID heparin (porcine), 5,000 Units, subcutaneous, q8h insulin lispro, 0-5 Units, subcutaneous, q6h lidocaine, 1 patch, transdermal, Daily [Held by provider] melatonin, 10 mg, oral, Nightly pantoprazole, 40 mg, intravenous, Daily piperacillin-tazobactam, 3.375 g, intravenous, q6h potassium chloride, 20 mEq, intravenous, Once [Held by provider] tamsulosin, 0.4 mg, oral, Daily Continuous medications lactated Ringer's, 30 mL/hr, Last Rate: 30 mL/hr (10/01/24 0500) PRN medications PRN medications: dextrose, dextrose, dextrose, dextrose, diclofenac sodium, glucagon, glucagon, glucagon, glucagon, hydrALAZINE, ketorolac, morphine, trimethobenzamide Imaging: AM CXR reviewed. Expected post op changes and esophageal stent placement. No clinically significant pneumothorax or effusion. No formal report at this time. Assessment: Rocio Sandoval is a 79 y.o. male with history of hypertension, heart failure with reduced ejection fraction ALISHA type 2 diabetes sick sinus syndrome who presented for TV pacer extraction with upgrade to PROPERTY CLAIM REP-P biventricular pacer. 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 Patient underwent ANTONIETTA intraoperatively. Postoperatively had a chest x-ray performed demonstrating possible pneumomediastinum. He had a noncontrasted CT chest demonstrating pneumomediastinum. Of note, patient tolerated full dinner and clears well this evening having no abdominal pain otherwise hemodynamically stable. Patient had a CT chest with IV and p.o. contrast demonstrating a perforation at the posterior aspect of the GEJ concerning for esophageal perforation/injury. He underwent EGD with esophageal stent placement 150 x 23 distal end at 40 cm and PEG tube placement on 09/27. 09/30: transferred to [facility]. Self removal of NGT. 10/01: IR consult for G-J conversion Plan: Neuro: h/o Headaches; surgical pain -Prescribed prednisone taper by PCP on 09/18, transitioned to IV methylpred while NPO -cont IV analgesics PRN and scheduled IV APAP Cardiology: h/o Permanent afib, Sick sinus syndrome, Pacemaker induced cardiomyopathy, Post CIED transvenous extraction, and upgrade to Medtronic PROPERTY CLAIM REP-P; Underwent transvenous lead extraction of medtronic dual chamber pacemaker and implant of medtronic biventricular pacemaker on 09/26 with EP; HFmrEF - TTE from 04/2024 with LV EF at 42% declined from prior echo 06/2021, global hypokinesis of LV -EP following--follow up recs today -cont tele -Home meds: PO lasix 20mg every other day, jardiance 25mg daily, Xarelto; HOLD in setting of esophageal perforation/surgery [ ] Follow up EP if any changes necessary to new pacemaker or interrogations [ ] NO anticoagulation for 4 days after pacemaker unless otherwise indicated by EP (resume 10/01) After G-J conversion, ok for low dose hep gtt (no bolus) per Dr. Nash [ ] No lifting of L arm above shoulder for 4-5 weeks after EP procedure Pulmonary: no acute issues. Breathing comfortably on RA. -daily CXR -encourage IS -Nebs PRN Renal: hypernatremia 148 today -daily BMP -replete lytes PRN GI: Esophageal perforation following ANTONIETTA s/p EGD with stent placement and PEG placement on 09/27; pt removed NG overnight -NPO with occasional ice chips, occasional swabs -cont Zosyn and fluconazole (09/27-) for empiric coverage -PPI with protonix 40 daily -clamp PEG with venting every 3-4 hours Endocrinology: h/o T2DM -cont SSI -on home metformin 750 BID, Jardiance 25mg (holding) MSK: Chronic back pain; Lumbar radiculopathy - pain management with tylenol and gabapentin per home regimen -Home gabapentin 1200 TID (HELD) -lidocaine patch, voltaren gel PRN, IV tylenol and dilaudid 0.4 q4h while NPO ID: afebrile; some leukocytosis (13.3 today) - likely post-op and steroid related; Esophageal perforation -cont empiric abx with fluconazole and Zosyn (09/27) -daily CBC -cont VS per protocol [ ] Decide when to stop empiric abx (fluconazole/zosyn 09/27-) for esophageal perforation DVT ppx: Contraindicated due to EP procedure unless otherwise specified by EP -subcutaneous heparin -will continue to evaluate when its ok to resume therapeutic AC--ok for hep gtt after G-J conversion per Dr. Nash Dispo: -no CONI at this time -cont to assess home-going needs Patient seen and examined by this provider. Plan of care discussed with attending, SANDY Estrada 15:25--left >right UE swelling. US ordered. IR contacted, patient is first case on 10/02/2024. Spoke with patient regarding PT/OT recommendation for mod intensity. Stated he would want to speak with his daughter regarding SNF. Requested I call her. Spoke with patient's daughter who requested SNF list be left and bedside to review when she is there later this afternoon. Additionally, requested I send to her cell via text. Agreed to blanket referral being sent to the facilities within 20 mile radius, 4 or 5 star. Referrals sent via [facility]. Vane Schneider RN, TCC Occupational Therapy OT Treatment Patient Name: Rocio Sandoval Department: [facility] Room: 11/03A Today's Date: 09/30/2024 1st session: Time Calculation Start Time: 911 Stop Time: 1012 Time Calculation (min): 60 min 2nd session: Time Calculation Start Time: 112 Stop Time: 1135 Time Calculation (min): 8 min Total treatment time = 68 min. Assessment: Prognosis: Good Barriers to Discharge Home: Caregiver assistance, Physical needs Caregiver Assistance: Caregiver assistance needed per identified barriers - however, level of patient's required assistance exceeds assistance available at home Physical Needs: Intermittent mobility assistance needed, Intermittent ADL assistance needed, High falls risk due to function or environment, Ambulating household distances limited by function/safety Evaluation/Treatment Tolerance: Patient tolerated treatment well Medical Staff Made Aware: Yes End of Session Communication: Bedside nurse End of Session Patient Position: Bed, 3 rail up, Alarm off, not on at start of session Prognosis: Good Evaluation/Treatment Tolerance: Patient tolerated treatment well Medical Staff Made Aware: Yes Plan: Treatment Interventions: ADL retraining, Functional transfer training, UE strengthening/ROM, Endurance training, Cognitive reorientation, Patient/family training, Equipment evaluation/education, Compensatory technique education OT Frequency: 3 times per week OT Discharge Recommendations: Moderate intensity level of continued care Equipment Recommended upon Discharge: (TBD) OT Recommended Transfer Status: Moderate assist, Assist of 1 OT - OK to Discharge: Yes Treatment Interventions: ADL retraining, Functional transfer training, UE strengthening/ROM, Endurance training, Cognitive reorientation, Patient/family training, Equipment evaluation/education, Compensatory technique education Subjective Previous Visit Info: OT Last Visit OT Received On: 09/30/24 General: General Reason for Referral: Presented for elective CEID, s/p Transvenous Lead Extraction of Medtronic Dual chamber pacemaker And Implant of Medtronic Biventricular pacemaker with Plugged RA lead (09/26). Postoperatively, had chest x-ray and noncontrasted CT chest demonstrating pneumomediastinum. CT chest with IV and p.o. contrast showed concerning for esophageal perforation/injury. S/p EGD, PEG tube placement, esophageal stent placement (09/27). Past Medical History Relevant to Rehab: afib, sick sinus syndrome, HFmrEF, HTN, HLD, ALISHA, T2DM Family/Caregiver Present: Yes Caregiver Feedback: Daughter present and supportive. Co-Treatment: PT Co-Treatment Reason: high medical complexity, AMPAC < 10 Prior to Session Communication: Bedside nurse Patient Position Received: Bed, 3 rail up, Alarm off, not on at start of session General Comment: Pt pleasant and agreeable to therapy. Increased PVCs with activity. closely monitored throughout session. Precautions: Hearing/Visual Limitations: Glasses Medical Precautions: Abdominal precautions, Cardiac precautions, Fall precautions Precautions Comment: SBP <180 per RN. L UE pacemaker precautions-no lifting, pushing/pulling, MITT precautions on L side Vital Signs Vitals Session Pre OT During OT Post OT Heart Rate 99 Increased PVCs were noted sitting EOB. RN made aware. 102 SpO2 96% 94% BP 165/85 First BP in chair: 157/92 After couple minutes sittin/113 167/90 Pain: Pain Assessment Pain Assessment: 0-10 0-10 (Numeric) Pain Score: (Pt with difficulty rating on scale, reporting not too bad) Objective Cognition: Cognition Overall Cognitive Status: Impaired Arousal/Alertness: Delayed responses to stimuli Orientation Level: Oriented X4 Following Commands: Follows one step commands with repetition (and increased time) Cognition Comments: Pt drowsy, required cues to maintain attention and arousal. Pt with delayed processing and increased time for all responses. Decreased recall of precautions for L UE from pacemaker despite reviewing multiple times. Insight: Mild Impulsive: Mildly Processing Speed: Delayed Activities of Daily Living: Grooming Grooming Level of Assistance: Close supervision, Setup Grooming Comments: Pt completed oral hygiene management brushing teeth at EOB with SBA and set-up. UE Dressing UE Dressing Level of Assistance: Minimum assistance, Contact guard UE Dressing Comments: Pt doffed/donned gown in bed with bed in chair position with CGA-Min A with cues needed for gown orientation and proper sequencing and safety for L UE precautions. Difficulty recalling sequencing despite review multiple times. Bed Mobility/Transfers: Bed Mobility Bed Mobility: Yes Bed Mobility 1 Bed Mobility 1: Supine to sitting Level of Assistance 1: Moderate assistance (Mod A x 1 for trunk, Min A x 1 for B LE) Bed Mobility Comments 1: HOB elevated, cues for sequencing Bed Mobility 2 Bed Mobility 2: Sitting to supine Level of Assistance 2: Moderate assistance, +2 Bed Mobility Comments 2: HOB flat, cues for sequencing Transfers Transfer: Yes Transfer 1 Transfer From 1: Bed to Transfer to 1: Chair with arms Technique 1: Sit to stand, Stand to sit (side steps) Transfer Device 1: (B arm in arm assist) Transfer Level of Assistance 1: Moderate assistance, +2 Trials/Comments 1: cues for sequencing and UE/LE placement Transfers 2 Transfer From 2: Chair with arms to Transfer to 2: Bed Technique 2: Sit to stand, Stand to sit (side steps) Transfer Device 2: (B AIRPORT OPERATIONS SUPERVISOR) Transfer Level of Assistance 2: Minimum assistance, +2 Trials/Comments 2: cues for hand placement and sequencing Transfers 3 Technique 3: Sit to stand, Stand to sit Transfer Device 3: (B AIRPORT OPERATIONS SUPERVISOR) Transfer Level of Assistance 3: Minimum assistance, +2 Trials/Comments 3: completed 4 trials in total with cues for proper hand placement and sequencing. Sitting Balance: Static Sitting Balance Static Sitting-Level of Assistance: Contact guard, Minimum assistance Dynamic Sitting Balance Dynamic Sitting-Level of Assistance: Contact guard, Minimum assistance Standing Balance: Static Standing Balance Static Standing-Level of Assistance: Minimum assistance (x 1-2) Dynamic Standing Balance Dynamic Standing-Level of Assistance: Minimum assistance (x 2) Therapy/Activity: Therapeutic Activity Therapeutic Activity Performed: Yes Therapeutic Activity 1: Pt sat EOB x 20 min with CGA-Min A for R posterior lean, requiring cues to correc to upright, midline trunk alignment with close monitoring of pt vital signs and symptoms throughout session. Therapeutic Activity 2: Pt completed side steps bed to chair with Mod A x 2 and B AIRPORT OPERATIONS SUPERVISOR and steps from chair to bed with Min A x 2 with B AIRPORT OPERATIONS SUPERVISOR and cues for body posture and sequencing. Therapeutic Activity 3: Provided pt an ICU diary this date d/t pt demonstrating mild confusion and difficulty with recalling/keeping track of the date. Completed entry in ICU diary for yesterday and todays therapy sessions and educated on purpose/benefit of ICU diary. Also issued pt a calendar to assist him in keeping track of the date. Outcome Measures:[facility] Daily Activity Putting on and taking off regular lower body clothing: A lot Bathing (including washing, rinsing, drying): A lot Putting on and taking off regular upper body clothing: A little Toileting, which includes using toilet, bedpan or urinal: A lot Taking care of personal grooming such as brushing teeth: A little Eating Meals: A little Daily Activity - Total Score: 15 , Confusion Assessment Method-ICU (CAM-ICU) Feature 1: Acute Onset or Fluctuating Course: Positive Feature 2: Inattention: Negative Feature 3: Altered Level of Consciousness: Positive Overall CAM-ICU: Negative , and Early Mobility/Exercise Safety Screen: Proceed with mobilization - No exclusion criteria met ICU Mobility Scale: Transferring bed to chair [5] Education Documentation Body Mechanics, taught by Kimberly Valadez OT at 09/30/2024 5:44 PM. Learner: Family, Patient Readiness: Acceptance Method: Explanation, Demonstration Response: Verbalizes Understanding, Needs Reinforcement Comment: OT POC, ADL/transfer training, ICU diary use Precautions, taught by Kimberly Valadez OT at 09/30/2024 5:44 PM. Learner: Family, Patient Readiness: Acceptance Method: Explanation, Demonstration Response: Verbalizes Understanding, Needs Reinforcement Comment: OT POC, ADL/transfer training, ICU diary use ADL Training, taught by Kimberly Valadez OT at 09/30/2024 5:44 PM. Learner: Family, Patient Readiness: Acceptance Method: Explanation, Demonstration Response: Verbalizes Understanding, Needs Reinforcement Comment: OT POC, ADL/transfer training, ICU diary use Education Comments No comments found. OP EDUCATION: Goals: Encounter Problems Encounter Problems (Active) ADLs Patient will perform UB and LB bathing with supervision using AE PRN. (Progressing) Start: 09/29/24 Expected End: 10/13/24 Patient with complete upper body dressing with Mod I. (Progressing) Start: 09/29/24 Expected End: 10/13/24 Patient with complete lower body dressing with supervision using AE PRN. (Progressing) Start: 09/29/24 Expected End: 10/13/24 Patient will complete daily grooming tasks with Mod I. (Progressing) Start: 09/29/24 Expected End: 10/13/24 Patient will complete toileting including hygiene clothing management/hygiene with supervision. (Progressing) Start: 09/29/24 Expected End: 10/13/24 ADLs Pt will complete ADL/IADL tasks with Mod I-supervision using 2/3 EC/WS principles as needed with good safety awareness. (Progressing) Start: 09/29/24 Expected End: 10/13/24 COGNITION/SAFETY Patient will score WFL on standardized cognitive assessment within reasonable time frame (Progressing) Start: 09/29/24 Expected End: 10/13/24 MOBILITY Pt will perform functional mobility household distances with supervision using LRAD without LOB and demonstrating good safety awareness. (Progressing) Start: 09/29/24 Expected End: 10/13/24 TRANSFERS Pt will perform bed mobility in simulated home environment with Mod I. (Progressing) Start: 09/29/24 Expected End: 10/13/24 Pt will perform functional transfers on various surfaces with supervision using LRAD with good safety awareness. (Progressing) Start: 09/29/24 Expected End: 10/13/24 Physical Therapy Physical Therapy Treatment Patient Name: Rocio Sandoval Department: [facility] Room: Today's Date: 09/30/2024 Time Calculation Start Time: 1127 Stop Time: 1135 Time Calculation (min): 8 min Assessment/Plan PT Assessment PT Assessment Results: Decreased strength, Decreased range of motion, Decreased endurance, Impaired balance, Decreased mobility, Impaired sensation, Pain, Decreased cognition Barriers to Discharge Home: Caregiver assistance, Physical needs, Cognition needs Caregiver Assistance: Caregiver assistance needed per identified barriers - however, level of patient's required assistance exceeds assistance available at home Cognition Needs: Recollection or understanding of precautions/restrictions limited, Recollection or understanding of home exercise program limited, Insight of patient limited regarding functional ability/needs, Cognition-related high falls risk Physical Needs: 24hr mobility assistance needed, 24hr ADL assistance needed, Ambulating household distances limited by function/safety, In-home setup navigation limited by function/safety, High falls risk due to function or environment, Weight bearing precautions unable to be safely maintained End of Session Communication: Bedside nurse End of Session Patient Position: Bed, 3 rail up, Alarm off, not on at start of session PT Plan Inpatient/Swing Bed or Outpatient: Inpatient PT Plan Treatment/Interventions: Bed mobility, Transfer training, Gait training, Balance training, Strengthening, Endurance training, Range of motion, Therapeutic exercise, Therapeutic activity, Home exercise program PT Plan: Ongoing PT PT Frequency: 4 times per week PT Discharge Recommendations: Moderate intensity level of continued care Equipment Recommended upon Discharge: (TBD with further mobility assessment) PT Recommended Transfer Status: Assist x2 (ModA) PT - OK to Discharge: Yes General Visit Information: PT Visit PT Received On: 09/30/24 General Family/Caregiver Present: Yes Caregiver Feedback: Daughter present and supportive. Co-Treatment: OT Co-Treatment Reason: anticipated AMPAC <10, attempting OOB mobility Prior to Session Communication: Bedside nurse Patient Position Received: Bed, 3 rail up, Alarm off, not on at start of session Preferred Learning Style: auditory, verbal, visual General Comment: Pt was agreeable to therapy this date. Expressed feeling more confused compared to yesterday. Subjective Precautions: Precautions Hearing/Visual Limitations: Glasses Medical Precautions: Abdominal precautions, Cardiac precautions, Fall precautions Precautions Comment: SBP <180 per RN. L UE pacemaker precautions Lines/Tubes: Telemetry PEG tube External catheter Vital Signs Vitals Session Pre PT During PT Post PT Heart Rate 99 Increased PVCs were noted sitting EOB. RN made aware. 102 SpO2 96% 94% BP 165/85 First BP in chair: 157/92 After couple minutes sittin/113 167/90 Objective Pain: Pain Assessment Pain Assessment: 0-10 0-10 (Numeric) Pain Score: (Pt unable to provide number, but reported not too bad at start of session.) Cognition: Cognition Overall Cognitive Status: Impaired Arousal/Alertness: Appropriate responses to stimuli Orientation Level: Oriented X4 Following Commands: Follows one step commands with increased time Cognition Comments: required increased time for date and providing answer for pain at start of session. retained 25% of precaution resistrictions. Education provided at beginning and end of session. Insight: Mild Impulsive: Mildly Coordination: Movements are Fluid and Coordinated: No Postural Control: Postural Control Postural Control: Impaired Posture Comment: Able to correct upright posture with cues, but unable to sustain. Demonstrated R lean Static Sitting Balance Static Sitting-Balance Support: Bilateral upper extremity supported, Feet supported Static Sitting-Level of Assistance: Minimum assistance (x1) Static Sitting-Comment/Number of Minutes: Assitance flucuated CGA-Tonia x1. Dynamic Sitting Balance Dynamic Sitting-Balance Support: Bilateral upper extremity supported, Feet unsupported Dynamic Sitting-Level of Assistance: Minimum assistance (x1) Dynamic Sitting-Comments: flucuated CGA-Tonia x1 Static Standing Balance Static Standing-Balance Support: Right upper extremity supported Static Standing-Level of Assistance: Minimum assistance (x2) Dynamic Standing Balance Dynamic Standing-Balance Support: Right upper extremity supported Dynamic Standing-Level of Assistance: Moderate assistance (x2) Activity Tolerance: Activity Tolerance Endurance: Tolerates 10 - 20 min exercise with multiple rests Early Mobility/Exercise Safety Screen: Proceed with mobilization - No exclusion criteria met Activity Tolerance Comments: BP taken throughout for safety. Pt reported feeling dizzy/woozy after sup to sit transfer to EOB. Ensured BP was stablikzed prior to transfer OOB. Treatments: Therapeutic Activity Therapeutic Activity Performed: Yes Therapeutic Activity 1: Sitting EOB ~20 minutes. Cues provided for upright posture and breathing. CGA-Tonia provided throughout with R posterior lean at times Therapeutic Activity 2: Sitting in chair position in bed ~10 min for improve vital stablity prior to sitting EOB with cues for deep breathing and education over LUE precautions. Bed Mobility Bed Mobility: Yes Bed Mobility 1 Bed Mobility 1: Supine to sitting Bed Mobility Comments 1: ModA x1 for trunk and Tonia x1 for LE/hip management with drawsheet. Log roll perfromed to L side prior to sup to sit transfer. Min cues provied for hand placement and limited use of LUE. Bed Mobility 2 Bed Mobility 2: Sitting to supine Level of Assistance 2: Moderate assistance (x2) Bed Mobility Comments 2: Cues provided for log rolling, hand placement, and adherance to LUE surgical precautions Ambulation/Gait Training Ambulation/Gait Training Performed: Yes Ambulation/Gait Training 1 Surface 1: Level tile Device 1: No device Assistance 1: Moderate assistance (x2) Quality of Gait 1: Wide base of support, Decreased step length, Inconsistent stride length Comments/Distance (ft) 1: 5 lateral steps to L. Cues provided for leg movement and movement sequencing. Transfers Transfer: Yes Transfer 1 Technique 1: Sit to stand, Stand to sit Transfer Level of Assistance 1: Minimum assistance (x2) Trials/Comments 1: x1, Cues provided for limited LUE use during transfer and R hand placement during transfer. Transfers 2 Technique 2: Sit to stand, Stand to sit Trials/Comments 2: x2, ModAx1 on R side and MinAx1 on L side Transfers 3 Transfer From 3: Bed to Transfer to 3: Chair with arms Technique 3: Sit to stand, Stand to sit Transfer Level of Assistance 3: Moderate assistance (x2) Trials/Comments 3: x1, Mod cues provided for foot placement and movement sequencing. Demonstrated limited eccentric control in sitting. Outcome Measures: [facility] Basic Mobility Turning from your back to your side while in a flat bed without using bedrails: A lot Moving from lying on your back to sitting on the side of a flat bed without using bedrails: A lot Moving to and from bed to chair (including a wheelchair): A lot Standing up from a chair using your arms (e.g. wheelchair or bedside chair): A lot To walk in hospital room: Total Climbing 3-5 steps with railing: Total Basic Mobility - Total Score: 10 Confusion Assessment Method-ICU (CAM-ICU) Feature 1: Acute Onset or Fluctuating Course: Positive Feature 2: Inattention: Negative Feature 3: Altered Level of Consciousness: Positive Overall CAM-ICU: Negative FSS-ICU Ambulation: Walks <50 feet with any assistance x1 or walks any distance with assistance x2 people Rolling: Moderate assistance (performs 50 - 74% of task) Sitting: Minimal assistance (performs 75% or more of task) Transfer [id number]: Total assistance (performs 25% or requires another person) Transfer [id number]: Total assistance (performs 25% or requires another person) Total Score: 10 Early Mobility/Exercise Safety Screen: Proceed with mobilization - No exclusion criteria met ICU Mobility Scale: Transferring bed to chair [5] Education Documentation Precautions, taught by SERVANDO Barrera at 09/30/2024 10:58 AM. Learner: Patient Readiness: Acceptance Method: Explanation Response: Needs Reinforcement, No Evidence of Learning Comment: Assessed at beginning and end of session and 25% recollection of LUE precautions post pacemaker implantation. Body Mechanics, taught by SERVANDO Barrera at 09/30/2024 10:56 AM. Learner: Patient Readiness: Acceptance Method: Explanation Response: Needs Reinforcement, No Evidence of Learning Comment: Mobility precautions and body mechanics/hand placement during trasnfers. Assessed at beginning and end of session and 25% recollection. Mobility Training, taught by SERVANDO Barrera at 09/30/2024 10:56 AM. Learner: Patient Readiness: Acceptance Method: Explanation Response: Needs Reinforcement, No Evidence of Learning Comment: Mobility precautions and body mechanics/hand placement during trasnfers. Assessed at beginning and end of session and 25% recollection. Education Comments No comments found. Encounter Problems Encounter Problems (Active) Balance Patient will maintain static/dynamic standing balance >5 minutes with LRAD and Tonia x1. (Progressing) Start: 09/29/24 Expected End: 10/13/24 Mobility Patient will ambulate >150 ft with LRAD and Tonia X1. (Progressing) Start: 09/29/24 Expected End: 10/13/24 PT Transfers Transfer from bed to chair with Tonia x1 and LRAD. (Progressing) Start: 09/29/24 Expected End: 10/13/24 Patient to transfer to and from sit to supine with minimal cueing for adherence to abdominal and LUE Wbing precautions and close supervision. (Progressing) Start: 09/29/24 Expected End: 10/13/24 Patient will transfer sit to and from stand with Tonia x1 and LRAD. (Progressing) Start: 09/29/24 Expected End: 10/13/24 Patient maintains LUE weight bearing status during transfers without cueing provided. (Progressing) Start: 09/29/24 Expected End: 10/13/24 Pain - Adult Rocio Sandoval is a 79 y.o. male on day 4 of admission presenting with Subclavian vein stenosis. Subjective No acute vents overnight. Objective Physical Exam Constitutional: no acute distress Neuro: A/O x4, no gross deficits Psych: normal affect HEENT: Normocephalic, atraumatic, no scleral icterus, EOMI, NG tube in place Cardiac: pacer incision upper left chest well-appearing Pulmonary: unlabored respirations, on room air Abdomen: soft, nondistended, non tender, PEG to gravity - clamped on exam this morning Skin: warm and dry overall Extremities: no LE edema, no calf tenderness Last Recorded Vitals Blood pressure 163/87, pulse 84, temperature 36 C (96.8 F), temperature source Temporal, resp. rate 16, height 1.88 m (6' 2), weight 104 kg (228 lb 2.8 oz), SpO2 96%. Intake/Output last 3 Shifts: I/O last 3 completed shifts: In: 1000 (9.7 mL/kg) [IV Piggyback:1000] Out: 3225 (31.2 mL/kg) [Urine:2875 (0.8 mL/kg/hr); Emesis/NG output:350] Weight: 103.5 kg Relevant Results Scheduled medications acetaminophen, 1,000 mg, intravenous, q6h [Held by provider] atorvastatin, 40 mg, oral, Nightly [Held by provider] cetirizine, 10 mg, oral, Daily [Held by provider] empagliflozin, 25 mg, oral, Daily fluconazole, 400 mg, intravenous, q24h [Held by provider] furosemide, 20 mg, oral, Daily [Held by provider] gabapentin, 1,200 mg, oral, TID insulin lispro, 0-5 Units, subcutaneous, q6h lactated Ringer's, 1,000 mL, intravenous, Once lidocaine, 1 patch, transdermal, Daily [Held by provider] melatonin, 10 mg, oral, Nightly pantoprazole, 40 mg, intravenous, Daily piperacillin-tazobactam, 3.375 g, intravenous, q6h [Held by provider] tamsulosin, 0.4 mg, oral, Daily Continuous medications PRN medications PRN medications: dextrose, dextrose, dextrose, dextrose, diclofenac sodium, glucagon, glucagon, glucagon, glucagon, hydrALAZINE, morphine, trimethobenzamide Results for orders placed or performed during the hospital encounter of 09/26/24 (from the past 24 hours) POCT GLUCOSE Result Value Ref Range POCT Glucose 168 (H) 74 - 99 mg/dL POCT GLUCOSE Result Value Ref Range POCT Glucose 131 (H) 74 - 99 mg/dL POCT GLUCOSE Result Value Ref Range POCT Glucose 153 (H) 74 - 99 mg/dL CBC and Auto Differential Result Value Ref Range WBC 17.3 (H) 4.4 - 11.3 x10*3/uL nRBC 0.0 0.0 - 0.0 /100 WBCs RBC 4.74 4.50 - 5.90 x10*6/uL Hemoglobin 14.3 13.5 - 17.5 g/dL Hematocrit 43.3 41.0 - 52.0 % MCV 91 80 - 100 fL MCH 30.2 26.0 - 34.0 pg MCHC 33.0 32.0 - 36.0 g/dL RDW 15.6 (H) 11.5 - 14.5 % Platelets 238 150 - 450 x10*3/uL Neutrophils % 86.8 40.0 - 80.0 % Immature Granulocytes %, Automated 0.6 0.0 - 0.9 % Lymphocytes % 6.1 13.0 - 44.0 % Monocytes % 6.3 2.0 - 10.0 % Eosinophils % 0.1 0.0 - 6.0 % Basophils % 0.1 0.0 - 2.0 % Neutrophils Absolute 15.03 (H) 1.60 - 5.50 x10*3/uL Immature Granulocytes Absolute, Automated 0.10 0.00 - 0.50 x10*3/uL Lymphocytes Absolute 1.05 0.80 - 3.00 x10*3/uL Monocytes Absolute 1.09 (H) 0.05 - 0.80 x10*3/uL Eosinophils Absolute 0.01 0.00 - 0.40 x10*3/uL Basophils Absolute 0.02 0.00 - 0.10 x10*3/uL Magnesium Result Value Ref Range Magnesium 2.36 1.60 - 2.40 mg/dL Renal Function Panel Result Value Ref Range Glucose 142 (H) 74 - 99 mg/dL Sodium 147 (H) 136 - 145 mmol/L Potassium 3.7 3.5 - 5.3 mmol/L Chloride 100 98 - 107 mmol/L Bicarbonate 19 (L) 21 - 32 mmol/L Anion Gap 32 (H) 10 - 20 mmol/L Urea Nitrogen 28 (H) 6 - 23 mg/dL Creatinine 0.75 0.50 - 1.30 mg/dL eGFR >90 >60 mL/min/1.73m*2 Calcium 8.4 (L) 8.6 - 10.6 mg/dL Phosphorus 2.3 (L) 2.5 - 4.9 mg/dL Albumin 3.3 (L) 3.4 - 5.0 g/dL Electrocardiogram, 12-lead PRN ACS symptoms Result Value Ref Range Ventricular Rate 93 BPM Atrial Rate 104 BPM QRS Duration 114 ms QT Interval 370 ms QTC Calculation(Bazett) 460 ms R Barnhart -39 degrees T Barnhart -45 degrees QRS Count 15 beats Q Onset 208 ms T Offset 393 ms QTC Fredericia 428 ms POCT GLUCOSE Result Value Ref Range POCT Glucose 123 (H) 74 - 99 mg/dL Electrocardiogram, 12-lead PRN ACS symptoms Result Value Ref Range Ventricular Rate 99 BPM Atrial Rate 99 BPM QRS Duration 112 ms QT Interval 334 ms QTC Calculation(Bazett) 428 ms P Barnhart 76 degrees R Barnhart -42 degrees T Barnhart -11 degrees QRS Count 16 beats Q Onset 218 ms T Offset 385 ms QTC Fredericia 394 ms *Note: Due to a large number of results and/or encounters for the requested time period, some results have not been displayed. A complete set of results can be found in Results Review. Imaging: CXR reviewed this morning, 09/30/2024, and remains stable in comparison with previous exam. Assessment/Plan Assessment & Plan Subclavian vein stenosis Permanent atrial fibrillation (Multi) Sick sinus syndrome (Multi) Esophageal perforation Pacing-induced cardiomyopathy (Multi) Patient is an 79-year-old man with history of hypertension, heart failure with reduced ejection fraction ALISHA type 2 diabetes sick sinus syndrome who presented for TV pacer extraction with upgrade to PROPERTY CLAIM REP-P biventricular pacer. 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 Patient underwent ANTONIETTA intraoperatively. Postoperatively had a chest x-ray performed demonstrating possible pneumomediastinum. He had a noncontrasted CT chest demonstrating pneumomediastinum. Of note, patient tolerated full dinner and clears well this evening having no abdominal pain otherwise hemodynamically stable. Patient had a CT chest with IV and p.o. contrast demonstrating a perforation at the posterior aspect of the GEJ concerning for esophageal perforation/injury. He underwent EGD with esophageal stent placement 150 x 23 distal end at 40 cm and PEG tube placement on 09/27. Plan: Neuro: h/o Headaches; surgical pain -Prescribed prednisone taper by PCP on 09/18, transitioned to IV methylpred while NPO -cont IV analgesics PRN Cardiology: h/o Permanent afib, Sick sinus syndrome, Pacemaker induced cardiomyopathy, Post CIED transvenous extraction, and upgrade to Medtronic PROPERTY CLAIM REP-P; Underwent transvenous lead extraction of medtronic dual chamber pacemaker and implant of medtronic biventricular pacemaker on 09/26 with EP; HFmrEF - TTE from 04/2024 with LV EF at 42% declined from prior echo 06/2021, global hypokinesis of LV -cont zosyn and fluconazole(09/27-) for esophageal perforation -EP following -cont tele -Home meds: PO lasix 20mg every other day, jardiance 25mg daily, Xarelto; HOLD in setting of esophageal perforation/surgery Pulmonary: no acute issues -daily CXR -encourage IS -Nebs PRN Renal: no acute issues -daily BMP -replete lytes PRN GI: Esophageal perforation following ANTONIETTA s/p EGD with stent placement and PEG placement on 09/27; pt removed NG overnight -NPO with occasional ice chips, occasional swabs -cont Zosyn and fluconazole (09/27-) for empiric coverage -PPI with protonix 40 daily -clamp PEG with venting every 3-4 hours Endocrinology: h/o T2DM -holding home metformin in post-op setting -cont SSI -on home metformin 750 BID, Jardiance 25mg MSK: Chronic back pain; Lumbar radiculopathy - pain management with tylenol and gabapentin per home regimen -Home gabapentin 1200 TID (HELD) -lidocaine patch, voltaren gel PRN, IV tylenol and dilaudid 0.4 q4h while NPO ID: afebrile; some leukocytosis (slightly improved today) - likely post-op and steroid related; Esophageal perforation -cont empiric abx with fluconazole and Zosyn (09/27) -daily CBC -cont VS per protocol DVT ppx: Contraindicated due to EP procedure unless otherwise specified by EP -ok to start subcutaneous heparin from Thoracic POV -will continue to evaluate when its ok to resume therapeutic AC Dispo: -no plans at this time -await transfer to [place] [id number] -cont to assess home-going needs -discussed plans with patients daughter at the bedside this morning Hany Mendez PA-C Thoracic Surgery, #[id number] ICU to [place] Transfer Summary I: ICU Admission Reason & Brief ICU Course: Rocio Sandoval is a 79 y.o. male with history of afib, sick sinus syndrome, HFmrEF, HTN, HLD, ALISHA, T2DM admitted following elective CIED transvenous extraction and upgrade to Medtronic PROPERTY CLAIM REP-P for pacemaker induced cardiomyopathy, admitted to CICU for post procedural monitoring. Following procedure was found to have esophageal perforation with pneumomediastinum on CXR confirmed by subsequent CT chest noncon and CT chest w PO con. Thoracic surgery was consulted and patient taken to OR on 09/27 for EGD with stent placement and PEG placement. He was started on empiric zosyn and fluconazole on 09/27. Overnight events: Patient still with significant abdominal pain. KUB XR with nonobstructive bowel gas pattern. Patient also self-removed NGT overnight, thoracic notified and instructed to hold off on replacing NGT. Bisacodyl suppository x2 given however no BM. Will give tap water enema this AM. Also will give 1L fluid given hypernatremia and NPO for several days. Per thoracic, will cap PEG tube and vent every 3-4hrs, plan for esophagram tomorrow. Follow-up: [ ] Follow up EP if any changes necessary to new pacemaker or interrogations [ ] NO anticoagulation for 4 days after pacemaker unless otherwise indicated by EP (resume /2) [ ] No lifting of L arm above shoulder for 4-5 weeks after EP procedure [ ] Resume oral medications when able depending on thoracic surgery C: Code Status/DPOA Info/Goals of Care/ACP Note Full Code DPOA/Contact Number: Suellen (daughter) [phone] U: Unprescribing & Pertinent High-Risk Medications Changes to home meds: Discontinued amiodarone per EP Anticoagulation: No Reason for no VTE prophylaxis:medical contraindication due to post-procedure Antibiotics: [x] Zosyn and fluconazole (09/27-) for empiric coverage for esophageal perforation P: Pending Tests at the Time of Transfer N/A A: Active consultants, including Rehab: [x] Subspecialty Consultants: EP, thoracic surgery [] PT [] OT [] 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 High degree of certainty about the clinical diagnosis. S: Summary of Major Problems and To-Dos: 09/30/24 Updates: - NGT removed by patient overnight. Thoracic surgery aware - Pain regimen: scheduled IV tylenol 1g q6h, IV morphine 4mg q3h PRN - Cap PEG, vent q3-4hrs. - NO PO or enteral diet or PO meds unless otherwise indicated by thoracic surgery team - IV hydralazine 10mg q8h PRN for SBP>180 IF BP does not improve with pain medications - 1L LR for his hypernatremia, will monitor with BID RFP - Pending transfer to the floor to thoracic surgery, pending bed availability - Bowel regiment: Received bisacodyl suppository x2 but no BM. Will give tap water enema this AM. Neuro #Headaches - Prescribed prednisone taper by PCP on 09/18, transitioned to IV methylpred while NPO and completed. Cardiology #Permanent afib #Sick sinus syndrome #Pacemaker induced cardiomyopathy #Post CIED transvenous extraction, and upgrade to Medtr[employer] PROPERTY CLAIM REP-P :: Underwent transvenous lead extraction of medtronic dual chamber pacemaker and implant of medtronic biventricular pacemaker on 09/26 with EP Plan: - Prophylactic abx with cefadroxil 500mg BID x 7 days (09/26-09/27), escalated to zosyn/fluconazole (09/27-) for esophageal perforation - Off amiodarone - EP following, appreciate recs #HFmrEF :: TTE from 04/2024 with LV EF at 42% declined from prior echo 06/2021, global hypokinesis of LV - Home regiment: PO lasix 20mg every other day, jardiance 25mg daily, HOLD in setting of esophageal perforation #HTN - Start IV hydralazine 10mg q8h PRN for SBP>180 if not responsive to pain medications or other symptom management Pulmonary - No acute issues, on NC O2 post procedure while coming off sedation. Will wean. Renal #Hypernatremia - In setting of strict NPO for several days - 1L LR today, monitor RFP BID GI #Esophageal perforation following ANTONIETTA s/p EGD with stent placement and PEG placement on 09/27 :: CXR/CT chest/CT chest w PO contrast after procedure on 09/26 concerning for pneumomediastinum and esophageal perforation Plan: - Thoracic following, unbridled NG, currently intermittent wall suction with output, symptom improvement - Pain regimen: scheduled IV tylenol 1g q6h, IV morphine 4mg q3h PRN - Zosyn and fluconazole (09/27-) for empiric coverage - PPI with protonix 40 daily - Strict NPO unless otherwise indicated by thoracic surgery Endocrinology #T2DM :: Prior A1C from 04/2024: 6.7% - Home regimen of metformin 750 BID, empagliflozin 25mg (for HF) - SSI q6h MSK #Chronic back pain #Lumbar radiculopathy :: Previously unsuccessful with conservative treatments, has undergone epidural steroid injections :: Home regiment for pain management with tylenol and gabapentin - Home gabapentin 1200 TID (HELD) - lidocaine patch, voltaren gel PRN, IV tylenol and IV morphine 4mg q3h PRN while NPO ID #Esophageal perforation - Prophylactic abx with cefadroxil 500mg BID x7 days (09/26-) post EP procedure now discontinued - Zosyn and fluconazole (09/27-) for empiric coverage F: PRN E: Replete PRN for K<4, Mg<2 N: NPO - NO enteral nutrition or oral meds through NGT, PEG, PO A: pIV DVT ppx: Contraindicated due to EP procedure, can resume prophylaxis 10/01 GI ppx: Bisacodyl suppository nightly, tap water/soap suds enemas To-do list prior to transfer: [x]None E: Exam, including Lines/Drains/Airways & Data Review: General: awake, alert, conversant, appears stated age HEENT: pupils equal and round, no scleral icterus, NGT to LIWS Skin: no suspect lesions or rashes noted on visible skin Chest: ctab, normal respiratory effort, On RA. Access site from left chest clean, intact Cardiac: regular rate, normal s1, s2, no M/R/G Abdomen: soft, ND, NT, no involuntary guarding, PEG tube in place; c/d/i : no flank pain or indwelling urinary catheter EXT: no peripheral edema, no asymmetry noted. Bilateral groin access sites clean and intact, no erythema or tenderness MSK: no focal joint swelling noted Neuro: AOx4, moving all limbs spontaneously, follows commands Psych: coherent thought process, in pain Difficult airway? N/A Lines/drains assessed for removal? Yes, describe: PIVs, NG tube Within 30 minutes of the patient physically leaving the floor, a Floor Readiness Note needs to be placed with updated vitals. Cosigned by Peggy Douglas MD at 10/05/2024 11:15 PM EDT Associated attestation - Peggy Douglas MD - 10/05/2024 11:15 PM EDT I saw and evaluated the patient. I personally obtained the chapin and critical portions of the history and physical exam or was physically present for chapin and critical portions performed by the resident/fellow. I reviewed the resident/fellow's documentation and discussed the patient with the resident/fellow. I agree with the resident/fellow's medical decision making as documented in the note. Subjective Data: Feels ok, some soreness CIED site, no discharge or bleeding Objective Data: Last Recorded Vitals: Vitals: 09/29/24 1600 09/29/24 1700 09/29/24 1800 09/29/24 1900 BP: (!) 152/93 (!) 156/98 166/83 BP Location: Patient Position: Pulse: 80 82 81 Resp: 05 12 13 Temp: 35.2 C (95.4 F) TempSrc: SpO2: 97% 96% 97% Weight: Height: Last Labs: CBC - 09/29/2024: 1:19 AM 19.2 14.9 236 48.2 CMP - 09/29/2024: 1:19 AM 9.3 6.5 17 --- 0.6 3.0 3.8 16 77 PTT - No results in last year. _ _ _ TROPHS Date/Time Value Ref Range Status 06/12/2024 01:01 PM 5 0 - 20 ng/L Final 08/25/2022 09:38 PM <3 0 - 20 ng/L Final Comment: . Less than 99th percentile of normal range cutoff- Female and children under 18 years old <14 ng/L; Male <21 ng/L: Negative Repeat testing should be performed if clinically indicated. . Female and children under 18 years old 14-50 ng/L; Male 21-50 ng/L: Consistent with possible cardiac damage and possible increased clinical risk. Serial measurements may help to assess extent of myocardial damage. . >50 ng/L: Consistent with cardiac damage, increased clinical risk and myocardial infarction. Serial measurements may help assess extent of myocardial damage. . NOTE: Children less than 1 year old may have higher baseline troponin levels and results should be interpreted in conjunction with the overall clinical context. . NOTE: Troponin I testing is performed using a different testing methodology at [facility] than at other [facility]. Direct result comparisons should only be made within the same method. 08/25/2022 08:36 PM <3 0 - 20 ng/L Final Comment: . Less than 99th percentile of normal range cutoff- Female and children under 18 years old <14 ng/L; Male <21 ng/L: Negative Repeat testing should be performed if clinically indicated. . Female and children under 18 years old 14-50 ng/L; Male 21-50 ng/L: Consistent with possible cardiac damage and possible increased clinical risk. Serial measurements may help to assess extent of myocardial damage. . >50 ng/L: Consistent with cardiac damage, increased clinical risk and myocardial infarction. Serial measurements may help assess extent of myocardial damage. . NOTE: Children less than 1 year old may have higher baseline troponin levels and results should be interpreted in conjunction with the overall clinical context. . NOTE: Troponin I testing is performed using a different testing methodology at [facility] than at other [facility]. Direct result comparisons should only be made within the same method. BNP Date/Time Value Ref Range Status 06/12/2024 01:01 PM 548 0 - 99 pg/mL Final 08/25/2022 08:36 PM 48 0 - 99 pg/mL Final Comment: . <100 pg/mL - Heart failure unlikely 100-299 pg/mL - Intermediate probability of acute heart . failure exacerbation. Correlate with clinical . context and patient history. >=300 pg/mL - Heart Failure likely. Correlate with clinical . context and patient history. BNP testing is performed using different testing methodology at [facility] than at other [facility]. Direct result comparisons should only be made within the same method. 07/13/2021 07:47 AM 91 0 - 99 pg/mL Final Comment: . <100 pg/mL - Heart failure unlikely 100-299 pg/mL - Intermediate probability of acute heart . failure exacerbation. Correlate with clinical . context and patient history. >=300 pg/mL - Heart Failure likely. Correlate with clinical . context and patient history. BNP testing is performed using different testing methodology at [facility] than at other [facility]. Direct result comparisons should only be made within the same method. HGBA1C Date/Time Value Ref Range Status 04/25/2024 07:26 AM 6.7 See comment % Final 01/25/2024 07:11 AM 7.0 see below % Final LDLCALC Date/Time Value Ref Range Status 10/23/2023 09:46 AM 44 <=99 mg/dL Final Comment: Near Borderline AGE Desirable Optimal High High Very High 0-19 Y 0 - 109 --- 110-129 >/= 130 ---- 20-24 Y 0 - 119 --- 120-159 >/= 160 ---- >24 Y 0 - 99 100-129 130-159 160-189 >/=190 VLDL Date/Time Value Ref Range Status 10/23/2023 09:46 AM 19 0 - 40 mg/dL Final 10/03/2022 08:08 AM 15 0 - 40 mg/dL Final 12/12/2021 07:37 AM 17 0 - 40 mg/dL Final 12/27/2020 07:08 AM 19 0 - 40 mg/dL Final Last I/O: I/O last 3 completed shifts: In: 750 (7.2 mL/kg) [IV Piggyback:750] Out: 4800 (46.4 mL/kg) [Urine:4350 (1.2 mL/kg/hr); Emesis/NG output:450] Weight: 103.5 kg Past Cardiology Tests (Last 3 Years): EKG: ECG 12 lead 09/26/2024 (Preliminary) ECG 12 Lead 08/13/2024 ECG 12 lead 06/12/2024 ECG 12 lead (Clinic Performed) 05/27/2024 ECG 12 lead (Clinic Performed) 03/13/2024 ECG 12 lead (Clinic Performed) 11/19/2023 ECG 12 lead (Ancillary Performed) 10/23/2023 Echo: Transthoracic Echo (TTE) Complete 04/08/2024 Ejection Fractions: EF Date/Time Value Ref Range Status 04/08/2024 08:44 AM 42 % Cath: No results found for this or any previous visit from the past 1095 days. Stress Test: Nuclear Stress Test 06/09/2024 Cardiac Imaging: No results found for this or any previous visit from the past 1095 days. Inpatient Medications: Scheduled medications Medication Dose Route Frequency acetaminophen 1,000 mg intravenous q6h [Held by provider] atorvastatin 40 mg oral Nightly [Held by provider] cetirizine 10 mg oral Daily [Held by provider] empagliflozin 25 mg oral Daily fluconazole 400 mg intravenous q24h [Held by provider] furosemide 20 mg oral Daily [Held by provider] gabapentin 1,200 mg oral TID insulin lispro 0-5 Units subcutaneous q6h lidocaine 1 patch transdermal Daily [Held by provider] melatonin 10 mg oral Nightly pantoprazole 40 mg intravenous Daily piperacillin-tazobactam 3.375 g intravenous q6h [Held by provider] tamsulosin 0.4 mg oral Daily PRN medications Medication dextrose dextrose dextrose dextrose diclofenac sodium glucagon glucagon glucagon glucagon hydrALAZINE morphine trimethobenzamide Continuous Medications Medication Dose Last Rate Physical Exam: Constitutional: well appearing, no distress Eyes: no conjunctival injection ENT: moist mucous membranes, no apparent injury Respiratory/Thorax: normal work of breathing Cardiovascular: normal rate, regular rhythm, extremities warm, JVP not elevated Extremities: warm, intact CIED incision: wound edges well approximated. No evidence of pocket hematoma or purulent discharge or dehiscence. Assessment/Plan 79M hx permanent AF, pacing induced cardiomyopathy, left subclavian vein stenosis discovered at time of attempted upgrade to PROPERTY CLAIM REP-P 08/2024 admitted after laser lead extraction of A-lead and upgrade to PROPERTY CLAIM REP-P system (no A-lead given permanent AF - A port plugged) c/b esophageal perf from ANTONIETTA s/p stent placement by thoracic surgery 3/28. Impression: #SSS s/p MDT dcPPM 2021, progressed to permanent AF #pacing induced cardiomyopathy with LVEF 42% 04/2024 #left subclavian vein stenosis discovered at time of attempted upgrade to PROPERTY CLAIM REP-P 08/2024 #laser lead extraction of A-lead and upgrade to PROPERTY CLAIM REP-P system (no A-lead given permanent AF - A port plugged) 09/[address] Jimenez # c/b esophageal perf from ANTONIETTA s/p esophageal stent 09/27 #permanent AF (CV 4 - age x2, HF, DM) CIED implant was without 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 but did have esophageal perforation from ANTONIETTA. Post-implant evaluation showed normal wound appearance, CXR showed appropriate lead position, and device interrogation showed appropriate device parameters. Given anticipated prolonged hospitalization, will maintain somewhat higher safety margins on capture thresholds and higher HR - can revisit post-discharge. Regarding AC, given prolonged anticipated hospitalization and exam without evidence of CIED pocket hematoma, would start DVT ppx with SQH 10/01 but would not bridge with therapeutic anticoagulation given moderate thromboembolic risk and high bleeding risk with esophageal perforation Recommendations: -if current pip/tazo stopped, would complete 7d abx post-CIED with cefadroxil 500mg bid x7d -activity restrictions added to discharge instructions -can restart prophylactic dose heparin 10/01 -no bridging therapeutic anticoagulation while inpatient, on discharge if felt can handle anticoagulation from Thoracic Surgery standpoint would restart home rivaroxaban -device clinic wound check and device check to be scheduled by device clinic in 4 weeks -no internal jugular or subclavian central lines x4 weeks if possible given high risk of dislodging the passive-fixation coronary sinus lead newly implanted 09/26 and elevated risk of vascular injury with laser lead extraction 09/26, would prefer femoral access for central line if required Will follow peripherally - please call if questions Thank you for the opportunity to contribute to the care of this patient. Above recommendations discussed with Dr. Jimenez. If further questions arise, [place] [phone] on weekdays 7AM - 6PM and weekends 7AM - 2PM[place] [phone] at all other times. The EP device nurse can be reached at pager [phone] during regular business hours M-F. Activity limitations post-CIED: Discharge Instructions for your Cardiac Device [facility] [phone] Incision: 1. Keep your incision clean and dry for 1 week. 2. May shower 7 days after the procedure. Do not submerge the incision in a tub, pool, hot tub, or luong for 4 weeks. 3. Your incision should look better each day. If you notice unusual swelling, redness, drainage or fever greater than 100 degrees, please call the Device Clinic or your Doctor's office. 4. Avoid using deodorants, powders, creams, lotions, etc on your incision for 4 weeks. 5. There are no stitches to be removed. If you received a glue closure this may appear purple-llanos and does not get removed but wears away slowly on its own. Steri-strips (small white bandages) may be removed in one week or they may fall off on their own earlier. Pain: 1. It is normal for the area around the incision to be tender for a few weeks following surgery. Pain relievers such as Tylenol or Motrin (whichever you can take) are usually sufficient for pain relief. If the pain gets worse instead of better than please call the Device Clinic or your Doctor. Activity: 1. If you have a new device and new leads placed than avoid raising your arm above shoulder level for 4 weeks. 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 2. Avoid exercising with the arm on the side of your pacemaker. So no golf, swimming, tennis, bowling etc for 4 weeks. 3. Driving: If you were driving prior to your procedure, you may resume driving in 1 week. If you experienced a loss of consciousness prior to your procedure, you should verify with your Doctor when you are able to resume driving. ID CARD: 1. It is important to carry your device ID card with you at all times. 2. Inform doctors and health care providers that you have a pacemaker or defibrillator. Electromagnetic Interference: 1. Microwave ovens are safe to use. 2. Cellular phones should be held to the opposite ear from your device. Do not carry your phone in your shirt pocket. Some i-phones that self-charge can interfere with your device so be sure to keep it away from your pacemaker/defibrillator. 3. Read the Patient Booklet for more information. You may call either the Device Clinic [phone] or the patient services of the device goal umpire with questions about specific electrical appliances and interference problems. IT IS YOUR RESPONSIBILITY TO MAKE AND KEEP APPOINTMENTS. Please refer to your Device clinic handout. Peripheral IV 09/26/24 20 G Left Antecubital (Active) Site Assessment Clean;Dry;Intact 09/29/24 1600 Dressing Type Transparent 09/29/24 1600 Line Status Flushed 09/29/24 1600 Dressing Status Clean;Dry;Occlusive 09/29/24 1600 Number of days: 3 Peripheral IV 09/26/24 16 G Right Hand (Active) Site Assessment Clean;Dry;Intact 09/29/24 1600 Dressing Type Transparent 09/29/24 1600 Line Status Flushed 09/29/24 1600 Dressing Status Clean;Dry;Occlusive 09/29/24 1600 Number of days: 3 Peripheral IV 09/27/24 18 G Left Forearm (Active) Site Assessment Clean;Dry;Intact 09/29/24 1600 Dressing Type Transparent 09/29/24 1600 Line Status Flushed 09/29/24 1600 Dressing Status Clean;Dry;Occlusive 09/29/24 1600 Number of days: 2 NG/OG/Feeding Tube NG - [place] sump Left nostril (Active) Output (mL) 50 mL 09/29/24 1500 Number of days: 2 Code Status: Full Code I spent 25 minutes in the professional and overall care of this patient. Alice Norman MD Cosigned by Aravind Jimenez MD at 09/29/2024 11:37 PM EDT Associated attestation - Aravind Jimenez MD - 09/29/2024 11:37 PM EDT I saw and evaluated the patient. I personally obtained the chapin and critical portions of the history and physical exam or was physically present for chapin and critical portions performed by the resident/fellow. I reviewed the resident/fellow's documentation and discussed the patient with the resident/fellow. I agree with the resident/fellow's medical decision making as documented in the note. Anesthesia Postop Visit: Patient seen as a postop visit after his anesthetic for lead extraction last Sunday. Intra-op ANTONIETTA was performed as part of routine management of patient for lead extraction. Scope insertion was easy, but resistance to scope advancement prevented getting good transgastric images. When resistance was felt, scope advancement was stopped, and scope pulled back. Postop, a small esophageal perforation was discovered and stented. I discussed with patient patient that this is a rare 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 with ANTONIETTA, but that his age and presence of hiatal hernia probably were predisposing factors. I discussed events with the patient, and invited questions. Physical Therapy Physical Therapy Evaluation & Treatment Patient Name: Rocio Sandoval Department: [facility] Room: Today's Date: 09/29/2024 Time Calculation Start Time: 911 Stop Time: 958 Time Calculation (min): 47 min Assessment/Plan PT Assessment PT Assessment Results: Decreased strength, Decreased range of motion, Decreased endurance, Impaired balance, Decreased mobility, Impaired sensation, Pain Rehab Prognosis: Good Barriers to Discharge Home: Caregiver assistance, Physical needs Caregiver Assistance: Caregiver assistance needed per identified barriers - however, level of patient's required assistance exceeds assistance available at home Physical Needs: 24hr mobility assistance needed, 24hr ADL assistance needed, Ambulating household distances limited by function/safety, In-home setup navigation limited by function/safety, High falls risk due to function or environment, Weight bearing precautions unable to be safely maintained Evaluation/Treatment Tolerance: Patient limited by pain Medical Staff Made Aware: Yes (RN made aware) End of Session Communication: Bedside nurse End of Session Patient Position: Bed, 3 rail up, Alarm off, not on at start of session IP OR SWING BED PT PLAN Inpatient or Swing Bed: Inpatient PT Plan Treatment/Interventions: Bed mobility, Transfer training, Gait training, Balance training, Strengthening, Endurance training, Range of motion, Therapeutic exercise, Therapeutic activity, Home exercise program PT Plan: Ongoing PT PT Frequency: 4 times per week PT Discharge Recommendations: Moderate intensity level of continued care Equipment Recommended upon Discharge: (TBD with further mobility assessment) PT Recommended Transfer Status: Total assist PT - OK to Discharge: Yes Subjective General Visit Information: General Reason for Referral: Presented for elective CEID, s/p Transvenous Lead Extraction of Medtronic Dual chamber pacemaker And Implant of Medtronic Biventricular pacemaker with Plugged RA lead (09/26). Postoperatively, had chest x-ray and noncontrasted CT chest demonstrating pneumomediastinum. CT chest with IV and p.o. contrast showed concerning for esophageal perforation/injury. S/p EGD, PEG tube placement, esophageal stent placement (09/27). Past Medical History Relevant to Rehab: afib, sick sinus syndrome, HFmrEF, HTN, HLD, ALISHA, T2DM Family/Caregiver Present: No Prior to Session Communication: Bedside nurse Patient Position Received: Bed, 3 rail up, Alarm off, not on at start of session Preferred Learning Style: auditory, verbal, visual General Comment: Pt was agreeable to session this date. Expressed discomfort in throat and stomach. Home Living: Home Living Type of Home: Other (Comment) ([place]anch with basement) Lives With: Significant other Home Adaptive Equipment: Walker rolling or standard, Cane, Wheelchair-manual Home Layout: Other (Comment) (Pt mentions basement with ~12 stairs, but does not use) Home Access: Ramped entrance (ramp through garage, no steps to front door) Bathroom Shower/Tub: Walk-in shower Home Living Comments: Lives with community services coordinator which pt reports is in 80s. [place], but limited communication 2/2 SOB and throat pain with talking. 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 reports no falls. Precautions: Precautions UE Weight Bearing Status: Left Non-Weight Bearing Medical Precautions: Abdominal precautions, Cardiac precautions, Fall precautions Precautions Comment: Pacemaker L side 09/26 Lines/Tubes: Telemetry Arterial line PEG Tube NG Tube External Catheter Vital Signs Vitals Session Pre PT During PT Post PT Heart Rate 67 89 Resp SpO2 95 97% BP 159/90 179/92 Objective Pain: Pain Assessment Pain Assessment: 0-10 0-10 (Numeric) Pain Score: 0 - No pain (No pain at start of session. Sitting EOB, pt reported 8/10 pain in abdominal region) Pain Location: Abdomen (Peg tube site) Cognition: Cognition Overall Cognitive Status: Within Functional Limits Arousal/Alertness: Appropriate responses to stimuli Orientation Level: Disoriented to place, Disoriented to time (knew hospital, but did not state which one. pt stated it was September but with prompting corrected to August. pt was reoriented) Following Commands: Follows one step commands with repetition Activity Tolerance Endurance: Tolerates less than 10 min exercise with changes in vital signs (ectopy seen on tele) Early Mobility/Exercise Safety Screen: Proceed with mobilization - No exclusion criteria met Sensation Light Touch: (decreased sensation noted in L medial malleolus region) Strength Strength Comments: BLE grossly >3+/5 demonstrated with bed mobility. MMT limited 2/2 EMG on tele Coordination Movements are Fluid and Coordinated: No Postural Control Postural Control: Within Functional Limits Static Sitting Balance Static Sitting-Balance Support: Bilateral upper extremity supported, Feet supported Static Sitting-Level of Assistance: Contact guard (x1) Dynamic Sitting Balance Dynamic Sitting-Balance Support: Bilateral upper extremity supported, Feet unsupported (MMT performed sitting EOB) Dynamic Sitting-Level of Assistance: Contact guard (x1) Static Standing Balance Static Standing-Balance Support: (Pt declined standing attempt this date secondary to abdominal pain) Functional Assessments: Bed Mobility Bed Mobility: Yes Bed Mobility 1 Bed Mobility 1: Supine to sitting Level of Assistance 1: Moderate assistance (x1) Bed Mobility Comments 1: Cues provided for log rolling, hand placement, and adherance to LUE surgical precautions this date. Bed Mobility 2 Bed Mobility 2: Sitting to supine Level of Assistance 2: Maximum assistance (x2) Bed Mobility Comments 2: Cues provided for log rolling, hand placement, and adherance to LUE surgical precautions. Transfers Transfer: No (Pt declined attempt this date.) Extremity/Trunk Assessments: RLE RLE : Within Functional Limits LLE LLE : Within Functional Limits Treatments: Therapeutic Activity Therapeutic Activity Performed: Yes Therapeutic Activity 1: sitting EOB for ~10 minutes with CGA-Tonia x1 with cueing for upright posture endurance and deep breathing. Bed Mobility Bed Mobility: Yes Bed Mobility 1 Bed Mobility 1: Supine to sitting Level of Assistance 1: Moderate assistance (x1) Bed Mobility Comments 1: Cues provided for log rolling, hand placement, and adherance to LUE surgical precautions this date. Bed Mobility 2 Bed Mobility 2: Sitting to supine Level of Assistance 2: Maximum assistance (x2) Bed Mobility Comments 2: Cues provided for log rolling, hand placement, and adherance to LUE surgical precautions. Transfers Transfer: No (Pt declined attempt this date.) Outcome Measures: [facility] Basic Mobility Turning from your back to your side while in a flat bed without using bedrails: A lot Moving from lying on your back to sitting on the side of a flat bed without using bedrails: A lot Moving to and from bed to chair (including a wheelchair): Total Standing up from a chair using your arms (e.g. wheelchair or bedside chair): Total To walk in hospital room: Total Climbing 3-5 steps with railing: Total Basic Mobility - Total Score: 8 Confusion Assessment Method-ICU (CAM-ICU) Feature 1: Acute Onset or Fluctuating Course: Negative Feature 2: Inattention: Negative Overall CAM-ICU: Negative FSS-ICU Ambulation: Unable to attempt due to weakness Rolling: Moderate assistance (performs 50 - 74% of task) Sitting: Minimal assistance (performs 75% or more of task) Transfer Bbs-so-Xmftj: Unable to perform Transfer Moatoi-is-Eps: Moderate assistance (performs 50 - 74% of task) Total Score: 10 Early Mobility/Exercise Safety Screen: Proceed with mobilization - No exclusion criteria met ICU Mobility Scale: Sitting over edge of bed [3] Encounter Problems Encounter Problems (Active) Balance Patient will maintain static/dynamic standing balance >5 minutes with LRAD and Tonia x1. (Progressing) Start: 09/29/24 Expected End: 10/13/24 Mobility Patient will ambulate >150 ft with LRAD and Tonia X1. (Progressing) Start: 09/29/24 Expected End: 10/13/24 PT Transfers Transfer from bed to chair with Tonia x1 and LRAD. (Progressing) Start: 09/29/24 Expected End: 10/13/24 Patient to transfer to and from sit to supine with minimal cueing for adherence to abdominal and LUE Wbing precautions and close supervision. (Progressing) Start: 09/29/24 Expected End: 10/13/24 Patient will transfer sit to and from stand with Tonia x1 and LRAD. (Progressing) Start: 09/29/24 Expected End: 10/13/24 Patient maintains LUE weight bearing status during transfers without cueing provided. (Progressing) Start: 09/29/24 Expected End: 10/13/24 Pain - Adult Education Documentation Precautions, taught by Chelsie BarreraPT at 09/29/2024 5:47 PM. Learner: Patient Readiness: Acceptance Method: Explanation Response: Needs Reinforcement, Verbalizes Understanding Comment: Education over pacemaker percautions (LUE WBing) during bed mobility/transfers Body Mechanics, taught by SERVANDO Barrera at 09/29/2024 5:46 PM. Learner: Patient Readiness: Acceptance Method: Explanation Response: Verbalizes Understanding, Needs Reinforcement Comment: Hand placement and bodymechanics during bed mobility/transfers Mobility Training, taught by SERVANDO Barrera at 09/29/2024 5:46 PM. Learner: Patient Readiness: Acceptance Method: Explanation Response: Verbalizes Understanding, Needs Reinforcement Comment: mobility precautions Education Comments No comments found. Cosigned by Mary Alice Anne PT at 09/29/2024 6:00 PM EDT ICU to [place] Transfer Summary I: ICU Admission Reason & Brief ICU Course: Rocio Sandoval is a 79 y.o. male with history of afib, sick sinus syndrome, HFmrEF, HTN, HLD, ALISHA, T2DM admitted following elective CIED transvenous extraction and upgrade to Medtronic PROPERTY CLAIM REP-P for pacemaker induced cardiomyopathy, admitted to CICU for post procedural monitoring. Following procedure was found to have esophageal perforation with pneumomediastinum on CXR confirmed by subsequent CT chest noncon and CT chest w PO con. Thoracic surgery was consulted and patient taken to OR on 09/27 for EGD with stent placement and PEG placement. He was started on empiric zosyn and fluconazole on 09/27. Follow-up: [ ] Follow up EP if any changes necessary to new pacemaker or interrogations [ ] NO anticoagulation for 4 days after pacemaker unless otherwise indicated by EP (resume 10/01) [ ] No lifting of L arm above shoulder for 4-5 weeks after EP procedure [ ] Resume oral medications when able depending on thoracic surgery C: Code Status/DPOA Info/Goals of Care/ACP Note Full Code DPOA/Contact Number: Suellen (daughter) [phone] U: Unprescribing & Pertinent High-Risk Medications Changes to home meds: Discontinued amiodarone per EP Anticoagulation: No Reason for no VTE prophylaxis:medical contraindication due to post-procedure Antibiotics: [x] Zosyn and fluconazole (09/27-) for empiric coverage for esophageal perforation P: Pending Tests at the Time of Transfer N/A A: Active consultants, including Rehab: [x] Subspecialty Consultants: EP, thoracic surgery [] PT [] OT [] [employer] 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 High degree of certainty about the clinical diagnosis. S: Summary of Major Problems and To-Dos: 09/29/24 Updates: - Increased substernal and mid-epigastric pain, likely referred from chest pain. CXR/KUB with stable esophageal stent placement, slight increase in L pleural effusion, no significant pneumomediastinum - NGT unbrideled and adjusted > NG flow improving pproviding symptom relief - Pain regimen increased: scheduled IV tylenol 1g q6h, IV morphine 4mg q3h PRN - NGT to LIWS, PEG to gravity - NO PO or enteral diet or PO meds unless otherwise indicated by thoracic surgery team - Start IV hydralazine 10mg q8h PRN for SBP>180 - Pending transfer to the floor to thoracic surgery, pending bed availability Neuro #Headaches - Prescribed prednisone taper by PCP on 09/18, transitioned to IV methylpred while NPO Cardiology #Permanent afib #Sick sinus syndrome #Pacemaker induced cardiomyopathy #Post CIED transvenous extraction, and upgrade to Medtronic PROPERTY CLAIM REP-P :: Underwent transvenous lead extraction of medtronic dual chamber pacemaker and implant of medtronic biventricular pacemaker on 09/26 with EP Plan: - Prophylactic abx with cefadroxil 500mg BID x 7 days (09/26-09/27), escalated to zosyn/fluconazole (09/27-) for esophageal perforation - Off amiodarone - EP following, appreciate recs #HFmrEF :: TTE from 04/2024 with LV EF at 42% declined from prior echo 06/2021, global hypokinesis of LV - Home regiment: PO lasix 20mg every other day, jardiance 25mg daily, HOLD in setting of esophageal perforation #HTN - Start IV hydralazine 10mg q8h PRN for SBP>180 Pulmonary - No acute issues, on NC O2 post procedure while coming off sedation. Will wean. Renal - No acute issues, will obtain baseline labs GI #Esophageal perforation following ANTONIETTA s/p EGD with stent placement and PEG placement on 09/27 :: CXR/CT chest/CT chest w PO contrast after procedure on 09/26 concerning for pneumomediastinum and esophageal perforation Plan: - Thoracic following, unbridled NG, currently intermittent wall suction with output, symptom improvement - Pain regimen: IV tylenol 1g q6h, IV dilaudid 0.4mg q2h PRN - Zosyn and fluconazole (09/27-) for empiric coverage - PPI with protonix 40 daily - Strict NPO unless otherwise indicated by thoracic surgery Endocrinology #T2DM :: Prior A1C from 04/2024: 6.7% - Home regimen of metformin 750 BID, empagliflozin 25mg (for HF) - SSI q6h MSK #Chronic back pain #Lumbar radiculopathy :: Previously unsuccessful with conservative treatments, has undergone epidural steroid injections :: Home regiment for pain management with tylenol and gabapentin - Home gabapentin 1200 TID (HELD) - lidocaine patch, voltaren gel PRN, IV tylenol and dilaudid 0.4 q4h while NPO ID #Esophageal perforation - Prophylactic abx with cefadroxil 500mg BID x7 days (09/26-) post EP procedure now discontinued - Zosyn and fluconazole (09/27-) for empiric coverage F: PRN E: Replete PRN for K<4, Mg<2 N: NPO - NO enteral nutrition or oral meds through NGT, PEG, PO A: pIV DVT ppx: Contraindicated due to EP procedure unless otherwise specified by EP GI ppx: miralax PRN for bowel regimen To-do list prior to transfer: [x]None E: Exam, including Lines/Drains/Airways & Data Review: General: awake, alert, conversant, appears stated age HEENT: pupils equal and round, no scleral icterus, NGT to LIWS Skin: no suspect lesions or rashes noted on visible skin Chest: ctab, normal respiratory effort, On NC O2 for supplemental oxygen. Access site from left chest with clean, intact dressing Cardiac: regular rate, normal s1, s2, no M/R/G Abdomen: soft, ND, NT, no involuntary guarding, PEG tube in place; c/d/i : no flank pain or indwelling urinary catheter EXT: no peripheral edema, no asymmetry noted. Bilateral groin access sites clean and intact, no erythema or tenderness MSK: no focal joint swelling noted Neuro: AOx4, moving all limbs spontaneously, follows commands Psych: coherent thought process, appropriate mood and affect Difficult airway? N/A Lines/drains assessed for removal? Yes, describe: PIVs, NG tube Within 30 minutes of the patient physically leaving the floor, a Floor Readiness Note needs to be placed with updated vitals. Cosigned by Peggy Douglas MD at 10/05/2024 11:15 PM EDT Associated attestation - Peggy Douglas MD - 10/05/2024 11:15 PM EDT I saw and evaluated the patient. I personally obtained the chapin and critical portions of the history and physical exam or was physically present for chapin and critical portions performed by the resident/fellow. I reviewed the resident/fellow's documentation and discussed the patient with the resident/fellow. I agree with the resident/fellow's medical decision making as documented in the note. Occupational Therapy Evaluation and Treatment Patient Name: Rocio Sandoval Today's Date: 09/29/2024 Room: 11/03 Time Calculation Start Time: 1105 Stop Time: 1142 Time Calculation (min): 37 min Assessment IP OT Assessment Prognosis: Good Barriers to Discharge Home: Caregiver assistance, Physical needs Caregiver Assistance: Caregiver assistance needed per identified barriers - however, level of patient's required assistance exceeds assistance available at home Physical Needs: Intermittent mobility assistance needed, Intermittent ADL assistance needed, High falls risk due to function or environment, Ambulating household distances limited by function/safety Evaluation/Treatment Tolerance: Patient tolerated treatment well Medical Staff Made Aware: Yes End of Session Communication: Bedside nurse End of Session Patient Position: Bed, 3 rail up, Alarm off, not on at start of session Plan: Inpatient Plan Treatment Interventions: ADL retraining, Functional transfer training, UE strengthening/ROM, Endurance training, Cognitive reorientation, Patient/family training, Equipment evaluation/education, Compensatory technique education OT Frequency: 3 times per week OT Discharge Recommendations: Moderate intensity level of continued care Equipment Recommended upon Discharge: (TBD) OT Recommended Transfer Status: Moderate assist, Assist of 1 OT - OK to Discharge: Yes OT Assessment OT Assessment Results: Decreased ADL status, Decreased upper extremity strength, Decreased safe judgment during ADL, Decreased cognition, Decreased endurance, Decreased functional mobility, Decreased IADLs Prognosis: Good Evaluation/Treatment Tolerance: Patient tolerated treatment well Medical Staff Made Aware: Yes Strengths: Attitude of self, Support of extended family/friends Subjective Current Problem: 1. Sick sinus syndrome (Multi) Cardiac Device Check - Surgery Cardiac Device Check - Surgery 2. Pacing-induced cardiomyopathy (Multi) Electrophysiology procedure Electrophysiology procedure 3. Subclavian vein stenosis Electrophysiology procedure Electrophysiology procedure 4. SSS (sick sinus syndrome) (Multi) Anesthesia Intraoperative Transesophageal Echocardiogram Anesthesia Intraoperative Transesophageal Echocardiogram 5. Esophageal perforation Case Request Operating Room: EGD, Possible Stent Placement, Possible VATS, Possible Laparoscopy, Possible Paraesophageal Hernia Repair, Possible PEG Tube Placement Case Request Operating Room: EGD, Possible Stent Placement, Possible VATS, Possible Laparoscopy, Possible Paraesophageal Hernia Repair, Possible PEG Tube Placement General: Reason for Referral: Presented for elective CEID, s/p Transvenous Lead Extraction of Medtronic Dual chamber pacemaker (Pulse generator and RA lead) And Implant of Medtronic Biventricular pacemaker with Plugged RA lead (09/26). Patient underwent ANTONIETTA intraoperatively. Postoperatively had a chest x-ray and noncontrasted CT chest demonstrating pneumomediastinum. CT chest with IV and p.o. contrast showed perforation at the posterior aspect of the GEJ concerning for esophageal perforation/injury. S/p EGD, PEG tube placement, esophageal stent placement (09/27). Past Medical History Relevant to Rehab: afib, sick sinus syndrome, HFmrEF, HTN, HLD, ALISHA, T2DM Prior to Session Communication: Bedside nurse Patient Position Received: Bed, 3 rail up, Alarm off, not on at start of session Family/Caregiver Present: No General Comment: Pt pleasant and cooperative for therapy. Precautions: Medical Precautions: Abdominal precautions, Cardiac precautions, Fall precautions Precautions Comment: L UE pacemaker precautions-no lifting, pushing/pulling, MITT precautions on L side Vital Signs: Vital Signs Vitals Session Pre OT During OT Post OT Heart Rate 84 90s 86 Resp 28 20 SpO2 97 97 97 BP 170/108 173/112 178/87 MAP 127 131 107 Increased PVCs with activity, RN made aware. Highest SBP 184/84 with initial sitting EOB, gradually decreased to SBP 170s. Pain: Pain Assessment Pain Assessment: 0-10 0-10 (Numeric) Pain Score: 8 Pain Type: Acute pain, Surgical pain Pain Location: Abdomen Pain Interventions: Repositioned (given pain meds prior to session) Lines/Tubes/Drains: NG/OG/Feeding Tube NG - [place] sump Left nostril (Active) Number of days: 2 Gastrostomy/Enterostomy Percutaneous endoscopic gastrostomy (PEG) 1 20 Fr. LUQ (Active) Number of days: 2 External Urinary Catheter Male (Active) Number of days: 1 Objective Cognition: Overall Cognitive Status: Within Functional Limits Arousal/Alertness: Appropriate responses to stimuli Orientation Level: Oriented X4 (increased time for correct month but able to correctly state without cueing) Following Commands: Follows one step commands with increased time Insight: Within function limits Impulsive: Within functional limits Processing Speed: Delayed Confusion Assessment Method (CAM) Acute Onset and Fluctuating Course (1A): Yes Acute Onset and Fluctuating Course (1B): Yes Inattention (2): No Disorganized Thinking (3): No Rate Patient's Level of Consciousness (4): Alert (Normal), No Delirium Present: No Perla Agitation Sedation Scale Perla Agitation Sedation Scale (RASS): Alert and calm Home Living: Type of Home: House ([place]) Lives With: Significant other (lives with community services coordinator Barbara) Home Adaptive Equipment: Walker rolling or standard, Cane (Reclining manual wheelchair, FWW) Home Layout: One level (basement but does not use) Home Access: Ramped entrance (through garage, no steps to front door) Bathroom Shower/Tub: Walk-in shower Bathroom Toilet: Handicapped height Bathroom Equipment: Grab bars in shower, Hand-held shower hose, Built-in shower seat Prior Function: Level of [place]: Independent with ADLs and functional transfers, Independent with homemaking with ambulation ADL Assistance: Independent Homemaking Assistance: (significant other completes majority of IADLs) Ambulatory Assistance: Independent Vocational: Retired Leisure: working on [employer], [employer] Hand Dominance: Right Prior Function Comments: reports some losses of balance but does not consider them falls IADL History: ADL: Eating Assistance: Stand by Grooming Assistance: Stand by Bathing Assistance: Moderate UE Dressing Assistance: Minimal LE Dressing Assistance: Moderate Toileting Assistance with Device: Moderate Activity Tolerance: Endurance: Tolerates 10 - 20 min exercise with multiple rests Early Mobility/Exercise Safety Screen: Proceed with mobilization - No exclusion criteria met Balance: Dynamic Sitting Balance Dynamic Sitting-Level of Assistance: Close supervision, Contact guard Static Sitting Balance Static Sitting-Level of Assistance: Close supervision, Contact guard Bed Mobility/Transfers: Bed Mobility/Transfers: Bed Mobility Bed Mobility: Yes Bed Mobility 1 Bed Mobility 1: Supine to sitting Level of Assistance 1: Moderate assistance (x 1 assist) Bed Mobility Comments 1: HOB elevated, cues for sequencing steps and maintaining L UE precautions Bed Mobility 2 Bed Mobility 2: Sitting to supine Level of Assistance 2: Moderate assistance (x 1 assist) Bed Mobility Comments 2: HOB flat, cues for sequencing steps for transitional technique, maintaining L UE precautions. and Transfers Transfer: No IADL's: Vision: Vision - Basic Assessment Current Vision: Wears glasses all the time and Sensation: Light Touch: (denies numbness/tingling) Strength: Strength Comments: R UE strength >/= 3+/5 assessed via observation, L distal UE >/= 3/5, did not formally assess d/t pacemaker precautions Perception: Coordination: Movements are Fluid and Coordinated: No Hand Function: Hand Function Gross Grasp: Functional Coordination: Functional Extremities: RUE RUE : Within Functional Limits, LUE LUE: Within Functional Limits (restricted d/t pacemaker precautions), RLE RLE : Within Functional Limits, and LLE LLE : Within Functional Limits Outcome Measures: [facility] Daily Activity Putting on and taking off regular lower body clothing: A lot Bathing (including washing, rinsing, drying): A lot Putting on and taking off regular upper body clothing: A little Toileting, which includes using toilet, bedpan or urinal: A lot Taking care of personal grooming such as brushing teeth: A little Eating Meals: A little Daily Activity - Total Score: 15 Confusion Assessment Method-ICU (CAM-ICU) Feature 3: Altered Level of Consciousness: Negative ICU Mobility Screen Early Mobility/Exercise Safety Screen: Proceed with mobilization - No exclusion criteria met ICU Mobility Scale: Sitting over edge of bed, Perla Agitation Sedation Scale Perla Agitation Sedation Scale (RASS): Alert and calm Education Documentation Body Mechanics, taught by Kimberly Valadez OT at 09/29/2024 1:35 PM. Learner: Patient Readiness: Acceptance Method: Explanation, Demonstration Response: Verbalizes Understanding, Needs Reinforcement Comment: OT POC, UB dressing technique, maintaining precautions, ADL retraining Precautions, taught by Kimberly Valadez OT at 09/29/2024 1:35 PM. Learner: Patient Readiness: Acceptance Method: Explanation, Demonstration Response: Verbalizes Understanding, Needs Reinforcement Comment: OT POC, UB dressing technique, maintaining precautions, ADL retraining ADL Training, taught by Kimberly Valadez OT at 09/29/2024 1:35 PM. Learner: Patient Readiness: Acceptance Method: Explanation, Demonstration Response: Verbalizes Understanding, Needs Reinforcement Comment: OT POC, UB dressing technique, maintaining precautions, ADL retraining Education Comments No comments found. Goals: Encounter Problems Encounter Problems (Active) ADLs Patient will perform UB and LB bathing with supervision using AE PRN. Start: 09/29/24 Expected End: 10/13/24 Patient with complete upper body dressing with Mod I. Start: 09/29/24 Expected End: 10/13/24 Patient with complete lower body dressing with supervision using AE PRN. Start: 09/29/24 Expected End: 10/13/24 Patient will complete daily grooming tasks with Mod I. Start: 09/29/24 Expected End: 10/13/24 Patient will complete toileting including hygiene clothing management/hygiene with supervision. Start: 09/29/24 Expected End: 10/13/24 ADLs Pt will complete ADL/IADL tasks with Mod I-supervision using 2/3 EC/WS principles as needed with good safety awareness. Start: 09/29/24 Expected End: 10/13/24 COGNITION/SAFETY Patient will score WFL on standardized cognitive assessment within reasonable time frame Start: 09/29/24 Expected End: 10/13/24 MOBILITY Pt will perform functional mobility household distances with supervision using LRAD without LOB and demonstrating good safety awareness. Start: 09/29/24 Expected End: 10/13/24 TRANSFERS Pt will perform bed mobility in simulated home environment with Mod I. Start: 09/29/24 Expected End: 10/13/24 Pt will perform functional transfers on various surfaces with supervision using LRAD with good safety awareness. Start: 09/29/24 Expected End: 10/13/24 Treatment Completed on Evaluation Activities of Daily Living: UE Dressing UE Dressing Level of Assistance: Minimum assistance UE Dressing Where Assessed: Bed level UE Dressing Comments: Provided cues and instruction for proepr sequencing technique for doffind/donning gown. Required Min A-CGA to don/doff this date and mod cueing for correct technique and sequencing. LE Dressing LE Dressing: Yes Sock Level of Assistance: Moderate assistance LE Dressing Where Assessed: Bed level LE Dressing Comments: Pt instructed on figure four position for donning socks. Donned socks with Mod A with assist to thread B socks over toes and increased times and cueing to complete. Rest breaks needed during activity. Therapy/Activity: Therapeutic Activity Therapeutic Activity Performed: Yes Therapeutic Activity 1: Pt sat EOB x 12 min with CGA-SBA with close monitoring of vitals and instruction for rest breaks as needed. 09/29/24 at 1:36 PM Kimberly Valadez OT Rehab Office: [phone] Rocio Sandoval is a 79 y.o. male on day 3 of admission presenting with Subclavian vein stenosis. Subjective No acute vents overnight. Objective Physical Exam Constitutional: no acute distress Neuro: A/O x4, no gross deficits Psych: normal affect HEENT: Normocephalic, atraumatic, no scleral icterus, EOMI, NG tube in place Cardiac: pacer incision upper left chest well-appearing Pulmonary: unlabored respirations, on room air Abdomen: soft, mildly distended, non tender, PEG to gravity Skin: warm and dry overall Extremities: no LE edema, no calf tenderness Last Recorded Vitals Blood pressure 178/87, pulse 86, temperature 36.1 C (97 F), temperature source Temporal, resp. rate 18, height 1.88 m (6' 2), weight 104 kg (228 lb 2.8 oz), SpO2 95%. Intake/Output last 3 Shifts: I/O last 3 completed shifts: In: 1050 (10.1 mL/kg) [IV Piggyback:1050] Out: 5010 (48.4 mL/kg) [Urine:4400 (1.2 mL/kg/hr); Emesis/NG output:610] Weight: 103.5 kg Relevant Results Scheduled medications acetaminophen, 1,000 mg, intravenous, q6h [Held by provider] atorvastatin, 40 mg, oral, Nightly [Held by provider] cetirizine, 10 mg, oral, Daily [Held by provider] empagliflozin, 25 mg, oral, Daily fluconazole, 400 mg, intravenous, q24h [Held by provider] furosemide, 20 mg, oral, Daily [Held by provider] gabapentin, 1,200 mg, oral, TID [Held by provider] insulin lispro, 0-5 Units, subcutaneous, TID AC lidocaine, 1 patch, transdermal, Daily [Held by provider] melatonin, 10 mg, oral, Nightly pantoprazole, 40 mg, intravenous, Daily piperacillin-tazobactam, 3.375 g, intravenous, q6h [Held by provider] tamsulosin, 0.4 mg, oral, Daily Continuous medications PRN medications PRN medications: dextrose, dextrose, dextrose, dextrose, diclofenac sodium, glucagon, glucagon, glucagon, glucagon, hydrALAZINE, HYDROmorphone, trimethobenzamide Results for orders placed or performed during the hospital encounter of 09/26/24 (from the past 24 hours) POCT GLUCOSE Result Value Ref Range POCT Glucose 134 (H) 74 - 99 mg/dL POCT GLUCOSE Result Value Ref Range POCT Glucose 141 (H) 74 - 99 mg/dL POCT GLUCOSE Result Value Ref Range POCT Glucose 134 (H) 74 - 99 mg/dL Magnesium Result Value Ref Range Magnesium 2.48 (H) 1.60 - 2.40 mg/dL Renal Function Panel Result Value Ref Range Glucose 139 (H) 74 - 99 mg/dL Sodium 142 136 - 145 mmol/L Potassium 4.3 3.5 - 5.3 mmol/L Chloride 102 98 - 107 mmol/L Bicarbonate 22 21 - 32 mmol/L Anion Gap 22 (H) 10 - 20 mmol/L Urea Nitrogen 30 (H) 6 - 23 mg/dL Creatinine 0.79 0.50 - 1.30 mg/dL eGFR 89 >60 mL/min/1.73m*2 Calcium 9.3 8.6 - 10.6 mg/dL Phosphorus 3.0 2.5 - 4.9 mg/dL Albumin 3.8 3.4 - 5.0 g/dL CBC and Auto Differential Result Value Ref Range WBC 19.2 (H) 4.4 - 11.3 x10*3/uL nRBC 0.0 0.0 - 0.0 /100 WBCs RBC 4.83 4.50 - 5.90 x10*6/uL Hemoglobin 14.9 13.5 - 17.5 g/dL Hematocrit 48.2 41.0 - 52.0 % MCV 100 80 - 100 fL MCH 30.8 26.0 - 34.0 pg MCHC 30.9 (L) 32.0 - 36.0 g/dL RDW 15.4 (H) 11.5 - 14.5 % Platelets 236 150 - 450 x10*3/uL Neutrophils % 90.7 40.0 - 80.0 % Immature Granulocytes %, Automated 0.7 0.0 - 0.9 % Lymphocytes % 3.6 13.0 - 44.0 % Monocytes % 4.8 2.0 - 10.0 % Eosinophils % 0.1 0.0 - 6.0 % Basophils % 0.1 0.0 - 2.0 % Neutrophils Absolute 17.43 (H) 1.60 - 5.50 x10*3/uL Immature Granulocytes Absolute, Automated 0.14 0.00 - 0.50 x10*3/uL Lymphocytes Absolute 0.70 (L) 0.80 - 3.00 x10*3/uL Monocytes Absolute 0.92 (H) 0.05 - 0.80 x10*3/uL Eosinophils Absolute 0.01 0.00 - 0.40 x10*3/uL Basophils Absolute 0.02 0.00 - 0.10 x10*3/uL POCT GLUCOSE Result Value Ref Range POCT Glucose 154 (H) 74 - 99 mg/dL POCT GLUCOSE Result Value Ref Range POCT Glucose 168 (H) 74 - 99 mg/dL *Note: Due to a large number of results and/or encounters for the requested time period, some results have not been displayed. A complete set of results can be found in Results Review. Imaging: CXR reviewed this morning and remains stable in comparison with previous exam. XR chest 1 view 09/28/2024 Narrative Interpreted By: Rocio De La Cruz, and Suman Arriaga STUDY: XR CHEST 1 VIEW; 09/28/2024 9:24 am INDICATION: Signs/Symptoms:Post esophageal perforation and stent placement monitoring. COMPARISON: Chest x-ray from 09/27/2024 ACCESSION NUMBER(S): [id number] ORDERING CLINICIAN: CRISTOBAL DUNBAR FINDINGS: AP radiograph of the chest was provided. There is a esophageal stent in place overlying the esophagus with stable positioning. Enteric tube is seen terminating beyond [id number] of the study. 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 CARDIOMEDIASTINAL SILHOUETTE: Cardiomediastinal silhouette is normal in size and configuration. LUNGS: Blunting of the left costophrenic angle. Bibasilar opacities likely reflect atelectasis. Improvement in pneumoperitoneum. No evidence of pneumothorax. ABDOMEN: Interval improvement in pneumoperitoneum. BONES: No acute osseous changes. Impression 1. Stable positioning of esophageal stent with improvement in pneumomediastinum when compared to prior exam. 2. Small left pleural effusion with bibasilar atelectasis. I personally reviewed the images/study and I agree with the findings as stated by Corina Wlil MD, PGY-2 this study was interpreted at [facility], [place], [place]. MACRO: None Signed by: Rocio De La Cruz 09/28/2024 10:00 AM Dictation workstation: [id number] Assessment/Plan Assessment & Plan Subclavian vein stenosis Permanent atrial fibrillation (Multi) Sick sinus syndrome (Multi) Esophageal perforation Pacing-induced cardiomyopathy (Multi) Patient is an 79-year-old man with history of hypertension, heart failure with reduced ejection fraction ALISHA type 2 diabetes sick sinus syndrome who presented for TV pacer extraction with upgrade to PROPERTY CLAIM REP-P biventricular pacer. 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 Patient underwent ANTONIETTA intraoperatively. Postoperatively had a chest x-ray performed demonstrating possible pneumomediastinum. He had a noncontrasted CT chest demonstrating pneumomediastinum. Of note, patient tolerated full dinner and clears well this evening having no abdominal pain otherwise hemodynamically stable. Patient had a CT chest with IV and p.o. contrast demonstrating a perforation at the posterior aspect of the GEJ concerning for esophageal perforation/injury. He underwent EGD with esophageal stent placement 150 x 23 distal end at 40 cm and PEG tube placement on 09/27. Plan: Neuro: h/o Headaches; surgical pain -Prescribed prednisone taper by PCP on 09/18, transitioned to IV methylpred while NPO -cont IV analgesics PRN Cardiology: h/o Permanent afib, Sick sinus syndrome, Pacemaker induced cardiomyopathy, Post CIED transvenous extraction, and upgrade to Medtronic PROPERTY CLAIM REP-P; Underwent transvenous lead extraction of medtronic dual chamber pacemaker and implant of medtronic biventricular pacemaker on 09/26 with EP; HFmrEF - TTE from 04/2024 with LV EF at 42% declined from prior echo 06/2021, global hypokinesis of LV -Prophylactic abx with cefadroxil 500mg BID x 7 days (09/26-09/27), escalated to zosyn and fluconazole(09/27-) for esophageal perforation -EP following -cont tele -Home meds: PO lasix 20mg every other day, jardiance 25mg daily, Xarelto; HOLD in setting of esophageal perforation/surgery Pulmonary: no acute issues -daily CXR -encourage IS -Nebs PRN Renal: no acute issues -daily BMP -replete lytes PRN GI: Esophageal perforation following ANTONIETTA s/p EGD with stent placement and PEG placement on 09/27 -maintain NG to LIWS -NPO with occasional ice chips -cont Zosyn and fluconazole (09/27-) for empiric coverage -PPI with protonix 40 daily -maintain PEG to gravity drainage Endocrinology: h/o T2DM -holding home metformin in post-op setting -cont SSI -on home metformin 750 BID, Jardiance 25mg MSK: Chronic back pain; Lumbar radiculopathy - pain management with tylenol and gabapentin per home regimen -Home gabapentin 1200 TID (HELD) -lidocaine patch, voltaren gel PRN, IV tylenol and dilaudid 0.4 q4h while NPO ID: afebrile; some leukocytosis - likely post-op and steroid related; Esophageal perforation -cont Prophylactic abx with fluconazole and Zosyn (09/27) -daily CBC -cont VS per protocol DVT ppx: Contraindicated due to EP procedure unless otherwise specified by EP -ok to start subcutaneous heparin from Thoracic POV Dispo: -no plans at this time -cont to assess home-going needs Hany Mendez PA-C Thoracic Surgery, #[id number] 09/29/24 0934 Discharge Planning Living Arrangements Spouse/significant other Support Systems Spouse/significant other;Children Assistance Needed Patient was independent with ALDs prior to admission. Type of Residence Private residence Who is requesting discharge planning? Provider Home or Post Acute Services (TBD) Does the patient need discharge transport arranged? No Financial Resource Strain How hard is it for you to pay for the very basics like food, housing, medical care, and heating? Not very Housing Stability In the last 12 months, was there a time when you were not able to pay the mortgage or rent on time? N In the past 12 months, how many times have you moved where you were living? 0 At any time in the past 12 months, were you homeless or living in a residential (including now)? N Transportation Needs In the past 12 months, has lack of transportation kept you from medical appointments or from getting medications? no In the past 12 months, has lack of transportation kept you from meetings, work, or from getting things needed for daily living? No - ICU TREATMENT PLAN: Patient was admitted following elective CIED transvenous extraction and upgrade to Medtronic PROPERTY CLAIM REP-P for pacemaker induced cardiomyopathy, transferred to CICU for post procedural monitoring. - Payer: [facility] Medicare -Support System: SO, children - Planned Disposition: Pending medical outcome and rehab recommendations. - Additional Information: SDOH and Social Work Discharge Planning assessments were completed with the patient. There were no SDOH issues identified. -ADLs: Patient was independent with ADLs prior to admission. -Home Care: n/a -DME: cane -HD: n/a - Barriers to discharge: None at this time. SW will continue to follow. Rocio Sandoval is a 79 y.o. male on day 2 of admission presenting with Subclavian vein stenosis. Subjective No acute vents overnight, afebrile, heart rates in the 70s, 140s to 160s over 70s to 80s, on several liters nasal cannula, 95%. 1.4 L in, 1.6 L of urine output, 310 from NG, 250 from PEG, white count slightly elevated 17.7 from 15.7 Objective Physical Exam Constitutional: no acute distress Neuro: A/O x4, no gross deficits Psych: normal affect HEENT: Normocephalic, atraumatic, no scleral icterus, EOMI, NG tube in place Cardiac: RRR, pacer incision upper left chest well-appearing Pulmonary: unlabored respirations, on nasal cannula Abdomen: soft, mildly distended, non tender, PEG to gravity Skin: warm and dry overall Extremities: moving all four, no swelling noted Last Recorded Vitals Blood pressure 152/79, pulse 73, temperature 35.3 C (95.5 F), temperature source Temporal, resp. rate 16, height 1.88 m (6' 2), weight 104 kg (228 lb 2.8 oz), SpO2 96%. Intake/Output last 3 Shifts: I/O last 3 completed shifts: In: 1450 (14 mL/kg) [I.V.:600 (5.8 mL/kg); IV Piggyback:850] Out: 2665 (25.7 mL/kg) [Urine:2350 (0.6 mL/kg/hr); Emesis/NG output:310; Blood:5] Weight: 103.5 kg Relevant Results Assessment/Plan Assessment & Plan Subclavian vein stenosis Permanent atrial fibrillation (Multi) Sick sinus syndrome (Multi) Esophageal perforation Pacing-induced cardiomyopathy (Multi) Patient is an 79-year-old man with history of hypertension, heart failure with reduced ejection fraction ALISHA type 2 diabetes sick sinus syndrome who presented for TV pacer extraction with upgrade to PROPERTY CLAIM REP-P biventricular pacer. 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 Patient underwent ANTONIETTA intraoperatively. Postoperatively had a chest x-ray performed demonstrating possible pneumomediastinum. He had a noncontrasted CT chest demonstrating pneumomediastinum. Of note, patient tolerated full dinner and clears well this evening having no abdominal pain otherwise hemodynamically stable. Patient had a CT chest with IV and p.o. contrast demonstrating a perforation at the posterior aspect of the GEJ concerning for esophageal perforation/injury. He underwent EGD with esophageal stent placement 150 x 23 distal end at 40 cm and PEG tube placement on 09/27. Plan: Continue broad-spectrum antibiotics Continue PPI IV pain control All medications transition to IV formulation Continue NG to low intermittent wall suction Continue PEG vent Cardiology/EP consult for device management Anticoagulation recommendations per EP team Disposition: Okay for transfer to floor with thoracic primary and EP consult Patient seen and discussed with attending physician Dr. Charity Palmer MD Cosigned by Monserrat Nash DO at 09/29/2024 12:24 PM EDT Associated attestation - Monserrat Nash DO - 09/29/2024 12:24 PM EDT I saw and evaluated the patient. I personally obtained the chapin and critical portions of the history and physical exam or was physically present for chapin and critical portions performed by the resident/fellow. I reviewed the resident/fellow's documentation and discussed the patient with the resident/fellow. The patient/family had the opportunity to discuss and ask questions. I agree with the resident/fellow's medical decision making as documented in the note. Patient HD stable, slight increase in WBC. Prior back pain has resolved, just some pain across the left lateral abdomen and chest. PEG and NG tube to gravity. Holding home Xarelto. Okay to use PEG for meds but no plans to start feeding today I spent 40 minutes in the critical care, professional and overall care of this patient. Cardiac ICU Progress Note, 09/28/2024 Admit Date: 09/26/2024 Hospital Length of Stay: 2 ICU Length of Stay: 1d 19h History of Present Illness Rocio Sandoval is a 79 y.o. male on day 1d 19h of admission for Subclavian vein stenosis. Interval History Doing well post operatively, managing pain and nausea Subjective No acute events overnight. He reports abdominal and back pain but is managing well with current pain regiment. Denies chest pain, SOB. Objective Vitals Vitals: 09/28/24 0600 09/28/24 0614 09/28/24 0700 09/28/24 0756 BP: 146/80 152/79 Pulse: 70 73 Resp: 13 16 Temp: 35.3 C (95.5 F) TempSrc: Temporal SpO2: 96% 96% Weight: 104 kg (228 lb 2.8 oz) Height: Vent settings Most Recent Range Past 24hrs Mode FiO2 No data recorded Rate No data recorded Vt No data recorded PEEP No data recorded Invasive Hemodynamics Most Recent Range Past 24hrs BP (Art) 107/91 No data recorded MAP(Art) 99 mmHg No data recorded RA/CVP No data recorded PA No data recorded PA(mean) No data recorded PCWP No data recorded CO No data recorded CI No data recorded Mixed Venous No data recorded SVR No data recorded PVR No data recorded I/O Intake/Output Summary (Last 24 hours) at 09/28/2024 0817 Last data filed at 09/28/2024 0718 Gross per 24 hour Intake 1500 ml Output 1965 ml Net -465 ml Physical Exam General: awake, alert, conversant, appears stated age HEENT: pupils equal and round, no scleral icterus, NGT to LIWS Skin: no suspect lesions or rashes noted on visible skin Chest: ctab, normal respiratory effort, On NC O2 for supplemental oxygen. Access site from left chest with clean, intact dressing Cardiac: regular rate, normal s1, s2, no M/R/G Abdomen: soft, ND, NT, no involuntary guarding, PEG tube in place : no flank pain or indwelling urinary catheter EXT: no peripheral edema, no asymmetry noted. Bilateral groin access sites clean and intact, no erythema or tenderness MSK: no focal joint swelling noted Neuro: AOx4, moving all limbs spontaneously, follows commands Psych: coherent thought process, appropriate mood and affect Labs Results from last 7 days Lab Units 09/28/24 0504 09/27/24 1241 09/26/24 1451 WBC AUTO x10*3/uL 17.7* 15.7* 18.1* HEMOGLOBIN g/dL 14.4 14.6 13.7 HEMATOCRIT % 43.3 43.9 42.6 PLATELETS AUTO x10*3/uL 236 220 260 Results from last 7 days Lab Units 09/28/24 0504 09/27/24 0420 09/26/24 1451 SODIUM mmol/L 142 139 139 POTASSIUM mmol/L 4.4 5.1 4.0 CHLORIDE mmol/L 103 103 105 CO2 mmol/L 24 24 23 BUN mg/dL 25* 16 18 CREATININE mg/dL 0.87 0.71 0.71 CALCIUM mg/dL 8.9 9.1 8.8 MAGNESIUM mg/dL 2.29 2.16 1.94 No lab exists for component: LABALBU Cardiac Data EKG Encounter Date: 08/13/24 ECG 12 Lead Result Value Ventricular Rate 74 Atrial Rate 85 QRS Duration 196 QT Interval 470 QTC Calculation(Bazett) 521 R Barnhart 147 T Barnhart -14 QRS Count 12 Q Onset 191 T Offset 426 QTC Fredericia 504 Narrative Ventricular-paced rhythm Abnormal ECG When compared with ECG of 12-JUN-2024 12:43, Premature ventricular complexes are no longer Present Vent. rate has increased BY 10 BPM Confirmed by Aravind Jimenez ([id number]) on 08/15/2024 8:11:37 AM Echocardiogram Transthoracic Echo (TTE) Complete Result Date: 04/08/2024 [place] [address] [phone], TRANSTHORACIC ECHOCARDIOGRAM REPORT Patient Name: ROCIO Pack Physician: [id number] Stroud MD Study Date: 04/08/2024 Ordering Provider: Delma STROUD MRN/PID: [id number] Fellow: Nurse: Yaritza Tello RN Date of /Age: 2 1945 / 78 years Investigator Fraud: Trey Severino RDCS Gender: M Additional Staff: Height: 187.96 cm Admit Date: Weight: 105.24 kg Admission Status: Outpatient BSA / BMI: 2.31 m2 / 29.79 Department Location: [facility] Echo Lab kg/m2 Blood Pressure: 128 /72 mmHg Study Type: TRANSTHORACIC ECHO (TTE) COMPLETE Diagnosis/ICD: Unspecified systolic (congestive) heart failure (CHF)-I50.20 CPT Codes: Echo Complete w Full Doppler-64551 Study Detail: The following Echo studies were performed: 2D, M-Mode, Doppler and color flow. Definity used as a contrast agent for endocardial border definition and agitated saline used as a contrast agent for intraseptal flow evaluation. Total contrast used for this procedure was 2.00cc mL via IV push. PHYSICIAN INTERPRETATION: Left Ventricle: Left ventricular ejection fraction is mildly decreased, calculated by Pleitez's biplane at 42%. The patient is in atrial fibrillation which may influence the estimate of left ventricular function and transvalvular flows. There is global hypokinesis of the left ventricle with minor regional variations. The left ventricular cavity size is normal. Abnormal (paradoxical) septal motion, consistent with RV pacemaker. Left ventricular diastolic filling was indeterminate. Left Atrium: The left atrium is mildly dilated. A bubble study using agitated saline was performed. Bubble study is negative. Right Ventricle: The right ventricle is moderately enlarged. There is normal right ventricular global systolic function. A device is visualized in the right ventricle. Right Atrium: The right atrium is normal in size. Aortic Valve: The aortic valve is trileaflet. The aortic valve dimensionless index is 0.41. There is no evidence of aortic valve regurgitation. The peak instantaneous gradient of the aortic valve is 8.3 mmHg. The mean gradient of the aortic valve is 5.0 mmHg. Mitral Valve: The mitral valve is normal in structure. There is no evidence of mitral valve regurgitation. Tricuspid Valve: The tricuspid valve is structurally normal. There is mild tricuspid regurgitation. Pulmonic Valve: The pulmonic valve is structurally normal. There is no indication of pulmonic valve regurgitation. Pericardium: Small pericardial effusion localized near the left ventricle. Aorta: The aortic root is normal. Systemic Veins: The inferior vena cava appears dilated, with IVC inspiratory collapse less than 50%. CONCLUSIONS: 1. Left ventricular ejection fraction is mildly decreased, calculated by Pleitez's biplane at 42%. 2. There is global hypokinesis of the left ventricle with minor regional variations. 3. Left ventricular diastolic filling was indeterminate. 4. Abnormal septal motion consistent with RV pacemaker. 5. There is normal right ventricular global systolic function. 6. Moderately enlarged right ventricle. 7. Compared to prior echocardiogram dated 06/02/2021: Ejection fraction has declined. 8. The patient is in atrial fibrillation which may influence the estimate of left ventricular function and transvalvular flows. QUANTITATIVE DATA SUMMARY: 2D MEASUREMENTS: Normal Ranges: Ao Root d: 3.60 cm (2.0-3.7cm) LAs: 4.50 cm (2.7-4.0cm) IVSd: 1.10 cm (0.6-1.1cm) LVPWd: 1.05 cm (0.6-1.1cm) LVIDd: 5.90 cm (3.9-5.9cm) LVIDs: 3.64 cm LV Mass Index: 113.9 g/m2 LV % FS 38.3 % LA VOLUME: Normal Ranges: LA Vol A4C: 97.7 ml (22+/-6mL/m2) LA Vol A2C: 76.0 ml LA Vol BP: 90.4 ml LA Vol Index A4C: 42.2ml/m2 LA Vol Index A2C: 32.9 ml/m2 LA Vol Index BP: 39.1 ml/m2 LA Area A4C: 28.9 cm2 LA Area A2C: 24.3 cm2 LA Major Barnhart A4C: 7.3 cm LA Major Barnhart A2C: 6.6 cm LA Volume Index: 41.7 ml/m2 LA Vol A4C: 96.3 ml LA Vol A2C: 74.2 ml LA Vol Index BSA: 36.8 ml/m2 LV SYSTOLIC FUNCTION BY 2D PLANIMETRY (MOD): Normal Ranges: EF-A4C View: 39 % (>=55%) EF-A2C View: 46 % EF-Biplane: 42 % LV EF Reported: 42 % AORTIC VALVE: Normal Ranges: AoV Vmax: 1.44 m/s (<=1.7m/s) AoV Peak P.3 mmHg (<20mmHg) AoV Mean P.0 mmHg (1.7-11.5mmHg) LVOT Max Marin: 0.64 m/s (<=1.1m/s) AoV VTI: 33.90 cm (18-25cm) LVOT VTI: 14.00 cm LVOT Diameter: 2.10 cm (1.8-2.4cm) AoV Area, VTI: 1.43 cm2 (2.5-5.5cm2) AoV Area,Vmax: 1.55 cm2 (2.5-4.5cm2) AoV Dimensionless Index: 0.41 RIGHT VENTRICLE: RV Basal 5.19 cm RV Mid 3.66 cm RV Major 9.2 cm TAPSE: 23.1 mm RV s' 0.12 m/s TRICUSPID VALVE/RVSP: Normal Ranges: Peak TR Velocity: 2.80 m/s RV Syst Pressure: 34 mmHg (< 30mmHg) [id number] Joel Stroud MD Electronically signed on 04/08/2024 at 9:23:41 AM Final Stress Testing IMGRESULT([id number]): NM CARDIAC STRESS REST (MYOCARDIAL PERFUSION MIBI) 07/22/2020 Narrative Patient Name: ROCIO SANDOVAL STUDY: CARDIAC STRESS/REST INJECTION; CARDIAC STRESS/REST (MYOCARDIAL PERFUSION/MIBI); PART 2 STRESS OR REST (NO CHARGE); 07/22/2020 11:12 am INDICATION: CP. COMPARISON: CT for PE dated 07/21/2020 ACCESSION NUMBER(S): [id number]; [id number]; [id number] ORDERING CLINICIAN: JASON ARRIETA TECHNIQUE: DIVISION OF NUCLEAR MEDICINE PHARMACOLOGIC STRESS MYOCARDIAL PERFUSION SCAN, ONE DAY PROTOCOL The patient received an intravenous dose of 12.0 mCi of Tc-99m Myoview and resting emission tomographic (SPECT) images of the myocardium were acquired. The patient then received an intravenous infusion of 0.4mg regadenoson (Lexiscan) followed by an additional dose of 36.0 mCi of Tc-99m Myoview. Stress phase SPECT images of the myocardium were then acquired. These included ECG-gated images to assess and quantify ventricular function. A low-dose, nondiagnostic regional CT was utilized for attenuation correction purposes. FINDINGS: Both stress and rest studies demonstrate grossly normal perfusion throughout the left ventricle. The left ventricle is mildly dilated in size (EDV 130ml). Gated images demonstrate low normal LV wall motion with an LV EF estimated at 49% on both rest and stress imaging. Attenuation correction CT images demonstrate calcifications of the aorta and coronary arteries. There is a 6 mm (image 12 of 29) and a 10mm (Image 18 of 29) calcified nodules in the left lower lobe, corresponding to the known granulomatous disease. Impression 1. Normal myocardial perfusion study without evidence of ischemia or prior infarction. 2. The left ventricle is mildly dilated in size. 3. Gated images demonstrate low normal LV wall motion with an LV EF estimated at 49% on both rest and stress imaging. I personally reviewed the images/study and I agree with the findings as stated. This study was interpreted at [facility], [place], [place]. Cardiac Catheterization Adult Cath Narrative [facility] Assessment, [address] [place] [id number] Cardiovascular Catheterization Report Patient Name: ROCIO SANDOVAL Performing Physician: [id number] Tony MD Study Date: 08/09/2020 Verifying Physician: [id number] Tony MD MRN/PID: [id number] Roll Changer: Accession/Order#: [id number] Fellow: Date of : 1945 Fellow: Gender: M Referring Physician: LYNDSEY TONY Admit Date: Referring Physician: deedee Surgeon: Referring Physician: Nate Ni MD Study: Left Heart Catheterization Indications: ROCIO SANDOVAL is a 75 year old male who presents with diabetes, dyslipidemia and ALISHA. Worsening angina, with a chest pain assessment of atypical angina. CP with exertion c/f unstable angina; mild HFrEF (49%) on stress. Study performed as an elective cath procedure. Appropriate Use Criteria: Discordant findings consisting of low-risk prior imaging with ongoing symptoms consistent with ischemic equivalent; AUC score = 7. Medical History: Stress test performed: Yes. Stress test type: Stress Nuclear. Stress result: Negative. CTA performed: No. Agatston accessed: No. LVEF Assessed: Yes. LVEF = 49%. Procedure Description: After infiltration with 2% Lidocaine, the right femoral artery was cannulated with a modified Seldinger technique. Subsequently a 5 Azerbaijani sheath was placed retrograde in the right femoral artery. Selective coronary catheterization was performed using a 5 Fr catheter(s) exchanged over a guide wire to cannulate the coronary arteries. A JL 4 tip catheter was used for left coronary injections. A JR 4 tip catheter was used for right coronary injections. Multiple injections of contrast were made into the left and right coronary arteries with angiograms recorded in multiple projections. After completion of the procedure, femoral artery angiography was performed. This demonstrated a common femoral artery puncture appropriate for closure. An Angio-Seal VIP 6F ([employer]) vascular closure device was placed per protocol. Coronary Angiography: The coronary circulation is left dominant. Coronary Angiography Comments: By history, there is asymptomatic R subclavian stenosis. Decreased RRA pulse compared to LRA. Attempted distal LRA access - limited by spasm. Converted to RFA. Left Main Coronary Artery: The left main coronary artery is a normal caliber vessel. The left main arises normally from the left coronary sinus of Valsalva and bifurcates into the LAD and circumflex coronary arteries. The left main coronary artery showed no significant disease or stenosis greater than 30%. Left Anterior Descending Coronary Artery Distribution: The left anterior descending coronary artery is a normal caliber vessel. The LAD arises normally from the left main coronary artery. The LAD demonstrated no significant disease or stenosis greater than 30%. Circumflex Coronary Artery Distribution: The circumflex coronary artery is a normal caliber vessel. The circumflex arises normally from the left main coronary artery and terminates in the AV groove. The circumflex revealed no significant disease or stenosis greater than 30%. Right Coronary Artery Distribution: The right coronary artery is a very small caliber vessel. The RCA arises normally from the right sinus of Valsalva. The RCA showed no significant disease or stenosis greater than 30%. Some spasm of the proximal segment on engagement; nondominant vessel. CPT Codes: Moderate Sedation Services initial 15 minutes patient >5 years-[id number]; Moderate Sedation Services 1st additional 15 minutes patient >5 years-04407; Left Heart Cath (visualization of coronaries) and LV-15088 ICD 10 Codes: I20.0-Unstable angina [id number] Lyndsey Tony MD Performing Physician cc Report to: [id number] LYNDSEY TONY cc Report to: x cc Report to: Nate Ni MD No results found for this or any previous visit from the past 3650 days. Cardiac Scoring No results found for this or any previous visit from the past 1825 days. AAA No results found for this or any previous visit from the past 1825 days. Other No results found for this or any previous visit from the past 1825 days. Imaging XR chest 1 view Final Result 1. Interval placement of a metallic esophageal stent which appears to extend from the mid esophagus to the gastroesophageal junction. 2. Re-demonstration of pneumomediastinum which is seen along the right neck, cardiac silhouette, and left hemithorax. 3. Perihilar and bibasilar atelectasis, likely postsurgical in nature. 4. Upper quadrant lucencies and can not exclude a component of pneumoperitoneum. Decubitus views if clinically indicated. I personally reviewed the images/study and I agree with the findings as stated by Toney Modi DO PGY-2. This study was interpreted at [place], [place]. MACRO: None Signed by: Rocio De La Cruz 09/27/2024 5:02 PM Dictation workstation: [id number] CT chest w IV contrast Final Result 1. Focal area of contrast spanning the wall of the posterior aspect of the gastroesophageal junction tracking along the mediastinum/large volume pneumomediastinum. Findings are highly suggestive of esophageal perforation/injury. Recommend surgical consultation. The extent of [id number] volume pneumomediastinum is unchanged. 2. Large paraesophageal hernia. 3. Similar lung findings as above with trace pleural effusions and bibasilar atelectatic changes versus scarring. Underlying fibrosing interstitial process such as NSIP can be considered. MACRO: Jeancarlos Hylton discussed the significance and urgency of this critical finding by EPIC CHAT with CRISTOBAL DUNBAR; ELÍAS MORRIS;NANCY WAHL on 09/27/2024 at 4:40 am. (-RCF-) Findings: See findings. Signed by: Rocio De La Cruz 09/27/2024 11:06 AM Dictation workstation: [id number] CT chest wo IV contrast Final Result 1. Interval development of moderate pneumomediastinum extending from the base of the heart to mediastinal superior borders with extension to the subcutaneous soft tissues of the neck. 2. The majority of the pneumomediastinum extends along the stomach and distal esophagus. There is hyperattenuating fluid layering within the posterior dependent portions of the concentrically thickened esophageal webster. There is equivocal tract of air extending from the gastroesophageal junction to the pneumomediastinum as well as from the thoracic esophagus the pneumomediastinum as described above. The constellation of these findings are concerning for esophageal injury/perforation. CT IV and oral contrast would be recommended for more comprehensive characterization. 3. Bochdalek's hernia containing majority of the stomach. 4. Trace left pleural effusion with associated atelectasis. Consolidative opacities are noted within the right lower lobe contiguous with the Bochdalek's hernia that likely represent atelectasis. Superimposed infectious process can not be definitively excluded. 5. Interval development of trace pneumoperitoneum. 6. Additional findings as described above. The above findings were communicated with Dr. Elías Morris via phone at 10:12 pm. MACRO: Adrián Varner discussed the significance and urgency of this critical finding by telephone with Elías Morris on 09/26/2024 at 10:13 pm. (-RCF-) Findings: See findings. Signed by: Rocio De La Cruz 09/27/2024 10:53 AM Dictation workstation: [id number] XR chest 1 view Final Result 1. Subcutaneous emphysema along the right neck with extension into the superior mediastinal structures, most consistent with pneumomediastinum. Consider further evaluation with CT versus PA/lateral radiographs to re-evaluate. 2. No definite pneumothorax. Consider repeat erect radiographs of the chest for further evaluation. I personally reviewed the images/study and I agree with the findings as stated by Toney Modi DO PGY-2. This study was interpreted at [facility], [place], [place]. MACRO: Toney Modi discussed the significance and urgency of this critical finding by secure message with Moise Brown on 09/26/2024 at 3:10 pm. (-RCF-) Findings: See findings. Signed by: Bret Craig 09/26/2024 3:11 PM Dictation workstation: [id number] Electrophysiology procedure Final Result Cardiac Device Check - Surgery Anesthesia Intraoperative Transesophageal Echocardiogram (Results Pending) Inpatient Medications [Held by provider] atorvastatin, 40 mg, oral, Nightly [Held by provider] cetirizine, 10 mg, oral, Daily [Held by provider] empagliflozin, 25 mg, oral, Daily fluconazole, 400 mg, intravenous, q24h [Held by provider] furosemide, 20 mg, oral, Daily [Held by provider] gabapentin, 1,200 mg, oral, TID [Held by provider] insulin lispro, 0-5 Units, subcutaneous, TID AC lidocaine, 1 patch, transdermal, Daily [Held by provider] melatonin, 10 mg, oral, Nightly methylPREDNISolone sodium succinate (PF), 8 mg, intravenous, Once pantoprazole, 40 mg, intravenous, Daily piperacillin-tazobactam, 3.375 g, intravenous, q6h [Held by provider] tamsulosin, 0.4 mg, oral, Daily PRN medications: acetaminophen, dextrose, dextrose, diclofenac sodium, glucagon, glucagon, HYDROmorphone, trimethobenzamide Assessment & Plan Rocio Sandoval is a 79 y.o. male with history of afib, sick sinus syndrome, HFmrEF, HTN, HLD, ALISHA, T2DM admitted following elective CIED transvenous extraction and upgrade to Medtronic PROPERTY CLAIM REP-P for pacemaker induced cardiomyopathy, admitted to CICU for post procedural monitoring. Following procedure was found to have esophageal perforation with pneumomediastinum on CXR confirmed by subsequent CT chest noncon and CT chest w PO con. Thoracic surgery was consulted and patient taken to OR on 09/27 for EGD with stent placement and PEG placement. He was started on empiric zosyn and fluconazole on 09/27. Updates 09/28: - Thoracic surgery following - NGT to LIWS, PEG to neumann and gravity - NO PO or enteral diet or PO meds unless otherwise indicated by thoracic surgery team - Will consider transfer to floor if OK with thoracic surgery Neuro #Headaches - Prescribed prednisone taper by PCP on 09/18, transitioned to IV methylpred while NPO Cardiology #Permanent afib #Sick sinus syndrome #Pacemaker induced cardiomyopathy #Post CIED transvenous extraction, and upgrade to Medtronic PROPERTY CLAIM REP-P :: Underwent transvenous lead extraction of medtronic dual chamber pacemaker and implant of medtronic biventricular pacemaker on 09/26 with EP Plan: - Prophylactic abx with cefadroxil 500mg BID x 7 days (09/26-09/27), escalated to zosyn (09/27-) for esophageal perforation - Discontinued amiodarone - EP following #HFmrEF :: TTE from 04/2024 with LV EF at 42% declined from prior echo 06/2021, global hypokinesis of LV - Home regiment: PO lasix 20mg every other day, jardiance 25mg daily, HOLD in setting of esophageal perforation Pulmonary - No acute issues, on NC O2 post procedure while coming off sedation. Will wean. Renal - No acute issues, will obtain baseline labs GI #Esophageal perforation following ANTONIETTA s/p EGD with stent placement and PEG placement on 09/27 :: CXR/CT chest/CT chest w PO contrast after procedure on 09/26 concerning for pneumomediastinum and esophageal perforation Plan: - Thoracic following - Zosyn and fluconazole (09/27-) for empiric coverage - PPI with protonix 40 daily - Strict NPO unless otherwise indicated by thoracic surgery Endocrinology #T2DM :: Prior A1C from 04/2024: 6.7% - Home regiment of metformin 750 BID, empagliflozin 25mg (for HF) - SSI if on diet MSK #Chronic back pain #Lumbar radiculopathy :: Previously unsuccessful with conservative treatments, has undergone epidural steroid injections :: Home regiment for pain management with tylenol and gabapentin - Home gabapentin 1200 TID (HELD) - lidocaine patch, voltaren gel PRN, IV tylenol and dilaudid 0.4 q4h while NPO ID #Esophageal perforation - Prophylactic abx with cefadroxil 500mg BID x7 days (09/26-) post EP procedure now discontinued - Zosyn and fluconazole (09/27-) for empiric coverage F: PRN E: Replete PRN for K<4, Mg<2 N: NPO - NO enteral nutrition or oral meds through NGT, PEG, PO A: pIV DVT ppx: Contraindicated due to EP procedure unless otherwise specified by EP GI ppx: miralax PRN for bowel regiment Code Status: Full Code Surrogate Decision Maker: Suellen (daughter) [phone] Moise Brown MD Internal Medicine, PGY-2 Cosigned by Cristobal Dunbar MD at 09/28/2024 1:13 PM EDT Associated attestation - Cristobal Dunbar MD - 09/28/2024 1:13 PM EDT Brief Attending Summary: 79-year-old male with history of sick sinus syndrome, atrial fibrillation, heart failure with reduced ejection fraction, LVEF 40 to 45%, who underwent device upgrade to Medtronic PROPERTY CLAIM REP-P for pacemaker induced cardiomyopathy and his procedure was complicated by esophageal perforation from ANTONIETTA probe. Patient is now status post esophageal stenting and PEG tube placement. I have reviewed and evaluated the most recent data and results, personally examined the patient, and formulated the plan of care as presented above. This patient was critically ill and required continued critical care treatment. Teaching and any separately billable procedures are not included in the time calculation. Billing Provider Critical Care Time: 64 minutes Subjective Data: Had back pain yesterday, better now. Had pneumomediastinum on CXR -> found to be esophageal perf, taken to OR for EGD + stent placement with thoracic surgery Dr Nash Objective Data: Last Recorded Vitals: Vitals: 09/27/24 0500 09/27/24 0600 09/27/24 0700 09/27/24 0800 BP: 113/54 121/55 127/58 Pulse: 62 64 61 Resp: 15 13 15 Temp: 36.4 C (97.5 F) TempSrc: Temporal SpO2: 98% 97% 96% Weight: Height: Last Labs: CBC - 09/26/2024: 2:51 PM 18.1 13.7 260 42.6 CMP - 09/27/2024: 4:20 AM 9.1 6.5 17 --- 0.6 5.1 3.8 16 77 PTT - No results in last year. _ _ _ TROPHS Date/Time Value Ref Range Status 06/12/2024 01:01 PM 5 0 - 20 ng/L Final 08/25/2022 09:38 PM <3 0 - 20 ng/L Final Comment: . Less than 99th percentile of normal range cutoff- Female and children under 18 years old <14 ng/L; Male <21 ng/L: Negative Repeat testing should be performed if clinically indicated. . Female and children under 18 years old 14-50 ng/L; Male 21-50 ng/L: Consistent with possible cardiac damage and possible increased clinical risk. Serial measurements may help to assess extent of myocardial damage. . >50 ng/L: Consistent with cardiac damage, increased clinical risk and myocardial infarction. Serial measurements may help assess extent of myocardial damage. . NOTE: Children less than 1 year old may have higher baseline troponin levels and results should be interpreted in conjunction with the overall clinical context. . NOTE: Troponin I testing is performed using a different testing methodology at [facility] than at other [facility]. Direct result comparisons should only be made within the same method. 08/25/2022 08:36 PM <3 0 - 20 ng/L Final Comment: . Less than 99th percentile of normal range cutoff- Female and children under 18 years old <14 ng/L; Male <21 ng/L: Negative Repeat testing should be performed if clinically indicated. . Female and children under 18 years old 14-50 ng/L; Male 21-50 ng/L: Consistent with possible cardiac damage and possible increased clinical risk. Serial measurements may help to assess extent of myocardial damage. . >50 ng/L: Consistent with cardiac damage, increased clinical risk and myocardial infarction. Serial measurements may help assess extent of myocardial damage. . NOTE: Children less than 1 year old may have higher baseline troponin levels and results should be interpreted in conjunction with the overall clinical context. . NOTE: Troponin I testing is performed using a different testing methodology at [facility] than at other [facility]. Direct result comparisons should only be made within the same method. BNP Date/Time Value Ref Range Status 06/12/2024 01:01 PM 548 0 - 99 pg/mL Final 08/25/2022 08:36 PM 48 0 - 99 pg/mL Final Comment: . <100 pg/mL - Heart failure unlikely 100-299 pg/mL - Intermediate probability of acute heart . failure exacerbation. Correlate with clinical . context and patient history. >=300 pg/mL - Heart Failure likely. Correlate with clinical . context and patient history. BNP testing is performed using different testing methodology at [facility] than at other [facility]. Direct result comparisons should only be made within the same method. 07/13/2021 07:47 AM 91 0 - 99 pg/mL Final Comment: . <100 pg/mL - Heart failure unlikely 100-299 pg/mL - Intermediate probability of acute heart . failure exacerbation. Correlate with clinical . context and patient history. >=300 pg/mL - Heart Failure likely. Correlate with clinical . context and patient history. BNP testing is performed using different testing methodology at [facility] than at other [facility]. Direct result comparisons should only be made within the same method. HGBA1C Date/Time Value Ref Range Status 04/25/2024 07:26 AM 6.7 See comment % Final 01/25/2024 07:11 AM 7.0 see below % Final LDLCALC Date/Time Value Ref Range Status 10/23/2023 09:46 AM 44 <=99 mg/dL Final Comment: Near Borderline AGE Desirable Optimal High High Very High 0-19 Y 0 - 109 --- 110-129 >/= 130 ---- 20-24 Y 0 - 119 --- 120-159 >/= 160 ---- >24 Y 0 - 99 100-129 130-159 160-189 >/=190 VLDL Date/Time Value Ref Range Status 10/23/2023 09:46 AM 19 0 - 40 mg/dL Final 10/03/2022 08:08 AM 15 0 - 40 mg/dL Final 12/12/2021 07:37 AM 17 0 - 40 mg/dL Final 12/27/2020 07:08 AM 19 0 - 40 mg/dL Final Last I/O: I/O last 3 completed shifts: In: 800 (7.7 mL/kg) [I.V.:800 (7.7 mL/kg)] Out: 1810 (17.3 mL/kg) [Urine:1730 (0.5 mL/kg/hr); Blood:80] Weight: 104.3 kg Past Cardiology Tests (Last 3 Years): EKG: ECG 12 Lead 08/13/2024 ECG 12 lead 06/12/2024 ECG 12 lead (Clinic Performed) 05/27/2024 ECG 12 lead (Clinic Performed) 03/13/2024 ECG 12 lead (Clinic Performed) 11/19/2023 ECG 12 lead (Ancillary Performed) 10/23/2023 Echo: Transthoracic Echo (TTE) Complete 04/08/2024 Ejection Fractions: EF Date/Time Value Ref Range Status 04/08/2024 08:44 AM 42 % Cath: No results found for this or any previous visit from the past 1095 days. Stress Test: Nuclear Stress Test 06/09/2024 Cardiac Imaging: No results found for this or any previous visit from the past 1095 days. Inpatient Medications: Scheduled medications Medication Dose Route Frequency [Held by provider] atorvastatin 40 mg oral Nightly [Held by provider] cetirizine 10 mg oral Daily [Held by provider] empagliflozin 25 mg oral Daily fluconazole 800 mg intravenous Once Followed by [START ON 09/28/2024] fluconazole 400 mg intravenous q24h [Held by provider] furosemide 20 mg oral Daily [Held by provider] gabapentin 1,200 mg oral TID [Held by provider] insulin lispro 0-5 Units subcutaneous TID AC lidocaine 1 patch transdermal Daily [Held by provider] melatonin 10 mg oral Nightly [START ON 09/28/2024] methylPREDNISolone sodium succinate (PF) 8 mg intravenous Once pantoprazole 40 mg intravenous Daily piperacillin-tazobactam 3.375 g intravenous q6h [Held by provider] tamsulosin 0.4 mg oral Daily PRN medications Medication acetaminophen dextrose dextrose diclofenac sodium glucagon glucagon trimethobenzamide Continuous Medications Medication Dose Last Rate Physical Exam: Constitutional: well appearing, no distress Eyes: no conjunctival injection ENT: moist mucous membranes, no apparent injury Respiratory/Thorax: normal work of breathing Cardiovascular: normal rate, regular rhythm, extremities warm, JVP not elevated Extremities: warm, intact CIED incision: wound edges well approximated. No evidence of pocket hematoma or purulent discharge or dehiscence. Right groin: hemostatic with dressing in place and no evidence of hematoma or discharge or bleeding Assessment/Plan 79M hx permanent AF, pacing induced cardiomyopathy, left subclavian vein stenosis discovered at time of attempted upgrade to PROPERTY CLAIM REP-P 08/2024 admitted after laser lead extraction of A-lead and upgrade to PROPERTY CLAIM REP-P system (no A-lead given permanent AF - A port plugged) c/b esophageal perf from ANTONIETTA s/p stent placement by thoracic surgery 09/26. Impression: #SSS s/p MDT dcPPM 2021, progressed to permanent AF #pacing induced cardiomyopathy with LVEF 42% 04/2024 #left subclavian vein stenosis discovered at time of attempted upgrade to PROPERTY CLAIM REP-P 08/2024 #laser lead extraction of A-lead and upgrade to PROPERTY CLAIM REP-P system (no A-lead given permanent AF - A port plugged) 09/[address] Jimenez # c/b esophageal perf from ANTONIETTA s/p esophageal stent 09/27 CIED implant was without 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 but did have esophageal perforation from ANTONIETTA. Post-implant evaluation showed normal wound appearance, CXR showed appropriate lead position, and device interrogation showed appropriate device parameters. Reprogrammed to VOO 80 marie-op due to pacemaker dependence and returned to VVI 70 with BiV tracking up to 130 with LV-RV delay 20 msec. Given anticipated prolonged hospitalization, will maintain somewhat higher safety margins on capture thresholds and higher HR - can revisit post-discharge Recommendations: -if current pip/tazo stopped, would complete 7d abx post-CIED with cefadroxil 500mg bid x7d -activity restrictions added to discharge instructions -no heparin products or anticoagulation for 4 days post-procedure -device clinic wound check and device check to be scheduled by device clinic in 4 weeks -no internal jugular or subclavian central lines x4 weeks if possible given high risk of dislodging the passive-fixation coronary sinus lead newly implanted 09/26 and elevated risk of vascular injury with laser lead extraction 09/26, would prefer femoral access for central line if required Will follow peripherally - please call if questions Thank you for the opportunity to contribute to the care of this patient. Above recommendations discussed with Dr. Jimenez. If further questions arise, [place] [phone] on weekdays 7AM - 6PM and weekends 7AM - 2PM[place] [phone] at all other times. The EP device nurse can be reached at pager [phone] during regular business hours M-F. Peripheral IV 09/26/24 20 G Left Antecubital (Active) Site Assessment Clean;Intact;Dry 09/27/24 0400 Dressing Type Transparent 09/27/24 0400 Line Status Flushed;Blood return noted 09/27/24 0400 Dressing Status Clean;Dry;Occlusive 09/27/24 0400 Number of days: 1 Peripheral IV 09/26/24 16 G Right Hand (Active) Site Assessment Clean;Dry;Intact 09/27/24 0400 Dressing Type Transparent 09/27/24 0400 Line Status Flushed;Blood return noted 09/27/24 0400 Dressing Status Clean;Dry;Occlusive 09/27/24 0400 Number of days: 1 Code Status: Full Code I spent 35 minutes in the professional and overall care of this patient. Alice Norman MD Cosigned by Aravind Jimenez MD at 09/29/2024 10:54 PM EDT Associated attestation - Aravind Jimenez MD - 09/29/2024 10:54 PM EDT I saw and evaluated the patient. I personally obtained the chapin and critical portions of the history and physical exam or was physically present for chapin and critical portions performed by the resident/fellow. I reviewed the resident/fellow's documentation and discussed the patient with the resident/fellow. I agree with the resident/fellow's medical decision making as documented in the note. Cardiac ICU Progress Note, 09/27/2024 Admit Date: 09/26/2024 Hospital Length of Stay: 1 ICU Length of Stay: 22h History of Present Illness Rocio Sandoval is a 79 y.o. male on day 22h of admission for Subclavian vein stenosis. Interval History Imaging following EP procedure with CXR showing concern for pneumomediastinum. Subsequent CT chest non-con and CT chest w/ PO contrast confirming pneumomediastinum and concern for esophageal perforation. Thoracic surgery consulted overnight and took patient to OR this morning for EGD with stent placement and PEG placement Subjective This morning prior to OR, reports back pain is improved but still present compared to yesterday. Denied any chest pain, SOB, other complaints. Objective Vitals Vitals: 09/27/24 0500 09/27/24 0600 09/27/24 0700 09/27/24 0800 BP: 113/54 121/55 127/58 Pulse: 62 64 61 Resp: 15 13 15 Temp: 36.4 C (97.5 F) TempSrc: Temporal SpO2: 98% 97% 96% Weight: Height: Vent settings Most Recent Range Past 24hrs Mode FiO2 No data recorded Rate No data recorded Vt No data recorded PEEP No data recorded Invasive Hemodynamics Most Recent Range Past 24hrs BP (Art) 107/91 Arterial Line BP 1 Min: 107/91 Max: 189/87 MAP(Art) 99 mmHg Arterial Line MAP 1 (mmHg) Min: 75 mmHg Max: 125 mmHg RA/CVP No data recorded PA No data recorded PA(mean) No data recorded PCWP No data recorded CO No data recorded CI No data recorded Mixed Venous No data recorded SVR No data recorded PVR No data recorded I/O Intake/Output Summary (Last 24 hours) at 09/27/2024 1047 Last data filed at 09/27/2024 0600 Gross per 24 hour Intake 800 ml Output 1510 ml Net -710 ml Physical Exam General: awake, alert, conversant, appears stated age HEENT: pupils equal and round, no scleral icterus Skin: no suspect lesions or rashes noted on visible skin Chest: ctab, normal respiratory effort, On NC O2 for supplemental oxygen. Access site from left chest with clean, intact dressing Cardiac: regular rate, normal s1, s2, no M/R/G Abdomen: soft, ND, NT, no involuntary guarding : no flank pain or indwelling urinary catheter EXT: no peripheral edema, no asymmetry noted. Bilateral groin access sites with dressing, clean and intact, no erythema or tenderness MSK: no focal joint swelling noted Neuro: AOx4, moving all limbs spontaneously, follows commands Psych: coherent thought process, appropriate mood and affect Labs Results from last 7 days Lab Units 09/26/24 1451 WBC AUTO x10*3/uL 18.1* HEMOGLOBIN g/dL 13.7 HEMATOCRIT % 42.6 PLATELETS AUTO x10*3/uL 260 Results from last 7 days Lab Units 09/27/24 0420 09/26/24 1451 SODIUM mmol/L 139 139 POTASSIUM mmol/L 5.1 4.0 CHLORIDE mmol/L 103 105 CO2 mmol/L 24 23 BUN mg/dL 16 18 CREATININE mg/dL 0.71 0.71 CALCIUM mg/dL 9.1 8.8 MAGNESIUM mg/dL 2.16 1.94 No lab exists for component: LABALBU Cardiac Data EKG Encounter Date: 08/13/24 ECG 12 Lead Result Value Ventricular Rate 74 Atrial Rate 85 QRS Duration 196 QT Interval 470 QTC Calculation(Bazett) 521 R Barnhart 147 T Barnhart -14 QRS Count 12 Q Onset 191 T Offset 426 QTC Fredericia 504 Narrative Ventricular-paced rhythm Abnormal ECG When compared with ECG of 12-JUN-2024 12:43, Premature ventricular complexes are no longer Present Vent. rate has increased BY 10 BPM Confirmed by Aravind Jimenez ([id number]) on 08/15/2024 8:11:37 AM Echocardiogram Transthoracic Echo (TTE) Complete Result Date: 04/08/2024 [place] [address] [phone], TRANSTHORACIC ECHOCARDIOGRAM REPORT Patient Name: ROCIO SANDOVAL Reading Physician: [id number] Stroud MD Study Date: 04/08/2024 Ordering Provider: [id number] STROUD MRN/PID: [id number] Fellow: Nurse: Yaritza Tello RN Date of /Age: 2 1945 / 78 years Investigator Fraud: Trey Severino RDCS Gender: M Additional Staff: Height: 187.96 cm Admit Date: Weight: 105.24 kg Admission Status: Outpatient BSA / BMI: 2.31 m2 / 29.79 Department Location: [facility] Echo Lab kg/m2 Blood Pressure: 128 /72 mmHg Study Type: TRANSTHORACIC ECHO (TTE) COMPLETE Diagnosis/ICD: Unspecified systolic (congestive) heart failure (CHF)-I50.20 CPT Codes: Echo Complete w Full Doppler-82972 Study Detail: The following Echo studies were performed: 2D, M-Mode, Doppler and color flow. Definity used as a contrast agent for endocardial border definition and agitated saline used as a contrast agent for intraseptal flow evaluation. Total contrast used for this procedure was 2.00cc mL via IV push. PHYSICIAN INTERPRETATION: Left Ventricle: Left ventricular ejection fraction is mildly decreased, calculated by Pleitez's biplane at 42%. The patient is in atrial fibrillation which may influence the estimate of left ventricular function and transvalvular flows. There is global hypokinesis of the left ventricle with minor regional variations. The left ventricular cavity size is normal. Abnormal (paradoxical) septal motion, consistent with RV pacemaker. Left ventricular diastolic filling was indeterminate. Left Atrium: The left atrium is mildly dilated. A bubble study using agitated saline was performed. Bubble study is negative. Right Ventricle: The right ventricle is moderately enlarged. There is normal right ventricular global systolic function. A device is visualized in the right ventricle. Right Atrium: The right atrium is normal in size. Aortic Valve: The aortic valve is trileaflet. The aortic valve dimensionless index is 0.41. There is no evidence of aortic valve regurgitation. The peak instantaneous gradient of the aortic valve is 8.3 mmHg. The mean gradient of the aortic valve is 5.0 mmHg. Mitral Valve: The mitral valve is normal in structure. There is no evidence of mitral valve regurgitation. Tricuspid Valve: The tricuspid valve is structurally normal. There is mild tricuspid regurgitation. Pulmonic Valve: The pulmonic valve is structurally normal. There is no indication of pulmonic valve regurgitation. Pericardium: Small pericardial effusion localized near the left ventricle. Aorta: The aortic root is normal. Systemic Veins: The inferior vena cava appears dilated, with IVC inspiratory collapse less than 50%. CONCLUSIONS: 1. Left ventricular ejection fraction is mildly decreased, calculated by Pleitez's biplane at 42%. 2. There is global hypokinesis of the left ventricle with minor regional variations. 3. Left ventricular diastolic filling was indeterminate. 4. Abnormal septal motion consistent with RV pacemaker. 5. There is normal right ventricular global systolic function. 6. Moderately enlarged right ventricle. 7. Compared to prior echocardiogram dated 06/02/2021: Ejection fraction has declined. 8. The patient is in atrial fibrillation which may influence the estimate of left ventricular function and transvalvular flows. QUANTITATIVE DATA SUMMARY: 2D MEASUREMENTS: Normal Ranges: Ao Root d: 3.60 cm (2.0-3.7cm) LAs: 4.50 cm (2.7-4.0cm) IVSd: 1.10 cm (0.6-1.1cm) LVPWd: 1.05 cm (0.6-1.1cm) LVIDd: 5.90 cm (3.9-5.9cm) LVIDs: 3.64 cm LV Mass Index: 113.9 g/m2 LV % FS 38.3 % LA VOLUME: Normal Ranges: LA Vol A4C: 97.7 ml (22+/-6mL/m2) LA Vol A2C: 76.0 ml LA Vol BP: 90.4 ml LA Vol Index A4C: 42.2ml/m2 LA Vol Index A2C: 32.9 ml/m2 LA Vol Index BP: 39.1 ml/m2 LA Area A4C: 28.9 cm2 LA Area A2C: 24.3 cm2 LA Major Barnhart A4C: 7.3 cm LA Major Barnhart A2C: 6.6 cm LA Volume Index: 41.7 ml/m2 LA Vol A4C: 96.3 ml LA Vol A2C: 74.2 ml LA Vol Index BSA: 36.8 ml/m2 LV SYSTOLIC FUNCTION BY 2D PLANIMETRY (MOD): Normal Ranges: EF-A4C View: 39 % (>=55%) EF-A2C View: 46 % EF-Biplane: 42 % LV EF Reported: 42 % AORTIC VALVE: Normal Ranges: AoV Vmax: 1.44 m/s (<=1.7m/s) AoV Peak P.3 mmHg (<20mmHg) AoV Mean P.0 mmHg (1.7-11.5mmHg) LVOT Max Marin: 0.64 m/s (<=1.1m/s) AoV VTI: 33.90 cm (18-25cm) LVOT VTI: 14.00 cm LVOT Diameter: 2.10 cm (1.8-2.4cm) AoV Area, VTI: 1.43 cm2 (2.5-5.5cm2) AoV Area,Vmax: 1.55 cm2 (2.5-4.5cm2) AoV Dimensionless Index: 0.41 RIGHT VENTRICLE: RV Basal 5.19 cm RV Mid 3.66 cm RV Major 9.2 cm TAPSE: 23.1 mm RV s' 0.12 m/s TRICUSPID VALVE/RVSP: Normal Ranges: Peak TR Velocity: 2.80 m/s RV Syst Pressure: 34 mmHg (< 30mmHg) [id number] Joel Stroud MD Electronically signed on 04/08/2024 at 9:23:41 AM Final Stress Testing IMGRESULT([id number]): NM CARDIAC STRESS REST (MYOCARDIAL PERFUSION MIBI) 07/22/2020 Narrative Patient Name: ROCIO SANDOVAL STUDY: CARDIAC STRESS/REST INJECTION; CARDIAC STRESS/REST (MYOCARDIAL PERFUSION/MIBI); PART 2 STRESS OR REST (NO CHARGE); 07/22/2020 11:12 am INDICATION: CP. COMPARISON: CT for PE dated 07/21/2020 ACCESSION NUMBER(S): [id number]; [id number]; [id number] ORDERING CLINICIAN: JASON ARRIETA TECHNIQUE: DIVISION OF NUCLEAR MEDICINE PHARMACOLOGIC STRESS MYOCARDIAL PERFUSION SCAN, ONE DAY PROTOCOL The patient received an intravenous dose of 12.0 mCi of Tc-99m Myoview and resting emission tomographic (SPECT) images of the myocardium were acquired. The patient then received an intravenous infusion of 0.4mg regadenoson (Lexiscan) followed by an additional dose of 36.0 mCi of Tc-99m Myoview. Stress phase SPECT images of the myocardium were then acquired. These included ECG-gated images to assess and quantify ventricular function. A low-dose, nondiagnostic regional CT was utilized for attenuation correction purposes. FINDINGS: Both stress and rest studies demonstrate grossly normal perfusion throughout the left ventricle. The left ventricle is mildly dilated in size (EDV 130ml). Gated images demonstrate low normal LV wall motion with an LV EF estimated at 49% on both rest and stress imaging. Attenuation correction CT images demonstrate calcifications of the aorta and coronary arteries. There is a 6 mm (image 12 of 29) and a 10mm (Image 18 of 29) calcified nodules in the left lower lobe, corresponding to the known granulomatous disease. Impression 1. Normal myocardial perfusion study without evidence of ischemia or prior infarction. 2. The left ventricle is mildly dilated in size. 3. Gated images demonstrate low normal LV wall motion with an LV EF estimated at 49% on both rest and stress imaging. I personally reviewed the images/study and I agree with the findings as stated. This study was interpreted at [place], [place]. Cardiac Catheterization Adult Cath Narrative [facility], Second [facility] H[facility] Assessment, [address] [place], [place] [id number] Cardiovascular Catheterization Report Patient Name: ROCIO SANDOVAL Performing Physician: Roseann Tony MD Study Date: 08/09/2020 Verifying Physician: Roseann Tony MD MRN/PID: [id number] Roll Changer: Accession/Order#: [id number] Fellow: Date of : 1945 Fellow: Gender: M Referring Physician: LYNDSEY TONY Admit Date: Referring Physician: deedee Surgeon: Referring Physician: Nate Ni MD Study: Left Heart Catheterization Indications: ROCIO SANDOVAL is a 75 year old male who presents with diabetes, dyslipidemia and ALISHA. Worsening angina, with a chest pain assessment of atypical angina. CP with exertion c/f unstable angina; mild HFrEF (49%) on stress. Study performed as an elective cath procedure. Appropriate Use Criteria: Discordant findings consisting of low-risk prior imaging with ongoing symptoms consistent with ischemic equivalent; AUC score = 7. Medical History: Stress test performed: Yes. Stress test type: Stress Nuclear. Stress result: Negative. CTA performed: No. Agatston accessed: No. LVEF Assessed: Yes. LVEF = 49%. Procedure Description: After infiltration with 2% Lidocaine, the right femoral artery was cannulated with a modified Seldinger technique. Subsequently a 5 Azerbaijani sheath was placed retrograde in the right femoral artery. Selective coronary catheterization was performed using a 5 Fr catheter(s) exchanged over a guide wire to cannulate the coronary arteries. A JL 4 tip catheter was used for left coronary injections. A JR 4 tip catheter was used for right coronary injections. Multiple injections of contrast were made into the left and right coronary arteries with angiograms recorded in multiple projections. After completion of the procedure, femoral artery angiography was performed. This demonstrated a common femoral artery puncture appropriate for closure. An Angio-Seal VIP 6F ([employer]) vascular closure device was placed per protocol. Coronary Angiography: The coronary circulation is left dominant. Coronary Angiography Comments: By history, there is asymptomatic R subclavian stenosis. Decreased RRA pulse compared to LRA. Attempted distal LRA access - limited by spasm. Converted to RFA. Left Main Coronary Artery: The left main coronary artery is a normal caliber vessel. The left main arises normally from the left coronary sinus of Valsalva and bifurcates into the LAD and circumflex coronary arteries. The left main coronary artery showed no significant disease or stenosis greater than 30%. Left Anterior Descending Coronary Artery Distribution: The left anterior descending coronary artery is a normal caliber vessel. The LAD arises normally from the left main coronary artery. The LAD demonstrated no significant disease or stenosis greater than 30%. Circumflex Coronary Artery Distribution: The circumflex coronary artery is a normal caliber vessel. The circumflex arises normally from the left main coronary artery and terminates in the AV groove. The circumflex revealed no significant disease or stenosis greater than 30%. Right Coronary Artery Distribution: The right coronary artery is a very small caliber vessel. The RCA arises normally from the right sinus of Valsalva. The RCA showed no significant disease or stenosis greater than 30%. Some spasm of the proximal segment on engagement; nondominant vessel. CPT Codes: Moderate Sedation Services initial 15 minutes patient >5 years-46504; Moderate Sedation Services 1st additional 15 minutes patient >5 years-62677; Left Heart Cath (visualization of coronaries) and LV-86213 ICD 10 Codes: I20.0-Unstable angina [id number] Lyndsey Tony MD Performing Physician cc Report to: Roseann TONY cc Report to: x cc Report to: Nate Ni MD No results found for this or any previous visit from the past 3650 days. Cardiac Scoring No results found for this or any previous visit from the past 1825 days. AAA No results found for this or any previous visit from the past 1825 days. Other No results found for this or any previous visit from the past [address] chest w IV contrast CT chest wo IV contrast XR chest 1 view Final Result 1. Subcutaneous emphysema along the right neck with extension into the superior mediastinal structures, most consistent with pneumomediastinum. Consider further evaluation with CT versus PA/lateral radiographs to re-evaluate. 2. No definite pneumothorax. Consider repeat erect radiographs of the chest for further evaluation. I personally reviewed the images/study and I agree with the findings as stated by Toney Modi DO PGY-2. This study was interpreted at [place], [place]. MACRO: Toney Modi discussed the significance and urgency of this critical finding by secure message with Moise Brown on 09/26/2024 at 3:10 pm. (-RCF-) Findings: See findings. Signed by: Bret Craig 09/26/2024 3:11 PM Dictation workstation: [id number] Electrophysiology procedure Final Result Cardiac Device Check - Surgery Anesthesia Intraoperative Transesophageal Echocardiogram (Results Pending) Inpatient Medications [Transfer Hold] atorvastatin, 40 mg, oral, Nightly [Held by provider] cefadroxil, 500 mg, oral, BID [Transfer Hold] cetirizine, 10 mg, oral, Daily [Transfer Hold] empagliflozin, 25 mg, oral, Daily [Transfer Hold] furosemide, 20 mg, oral, Daily [Transfer Hold] gabapentin, 1,200 mg, oral, TID [Transfer Hold] insulin lispro, 0-5 Units, subcutaneous, TID AC [Transfer Hold] lidocaine, 1 patch, transdermal, Daily [Transfer Hold] melatonin, 10 mg, oral, Nightly [Transfer Hold] pantoprazole, 40 mg, intravenous, Daily [Transfer Hold] piperacillin-tazobactam, 3.375 g, intravenous, q6h [Transfer Hold] predniSONE, 10 mg, oral, Daily [Transfer Hold] tamsulosin, 0.4 mg, oral, Daily PRN medications: [Transfer Hold] acetaminophen OR [Transfer Hold] acetaminophen OR [Transfer Hold] acetaminophen, BUPivacaine HCl, [Transfer Hold] calcium carbonate, [Transfer Hold] dextrose, [Transfer Hold] dextrose, [Transfer Hold] diclofenac sodium, [Transfer Hold] glucagon, [Transfer Hold] glucagon, iohexol, lidocaine, [Transfer Hold] oxyCODONE, [Transfer Hold] polyethylene glycol, sodium chloride Assessment & Plan Rocio Sandoval is a 79 y.o. male with history of afib, sick sinus syndrome, HFmrEF, HTN, HLD, ALISHA, T2DM admitted following elective CIED transvenous extraction and upgrade to Medtronic PROPERTY CLAIM REP-P for pacemaker induced cardiomyopathy, admitted to CICU for post procedural monitoring. Following procedure was found to have esophageal perforation with pneumomediastinum on CXR confirmed by subsequent CT chest noncon and CT chest w PO con. Thoracic surgery was consulted and patient taken to OR on 09/27 for EGD with stent placement and PEG placement. He was started on empiric zosyn and fluconazole on 09/27. Updates 09/27: - Imaging following EP procedure with CXR showing concern for pneumomediastinum. Subsequent CT chest non-con and CT chest w/ PO contrast confirming pneumomediastinum and concern for esophageal perforation. - Abx broadened to zosyn and fluconazole - PPI started - Thoracic surgery consulted overnight and took patient to OR this morning for EGD with stent placement and PEG placement - NGT to LIWS, PEG to neumann and gravity - NO PO or enteral diet or PO meds unless otherwise indicated by thoracic surgery team Neuro - No acute issues or evidence of encephalopathy Cardiology #Permanent afib #Sick sinus syndrome #Pacemaker induced cardiomyopathy #Post CIED transvenous extraction, and upgrade to Medtronic PROPERTY CLAIM REP-P :: Underwent transvenous lead extraction of medtronic dual chamber pacemaker and implant of medtronic biventricular pacemaker on 09/26 with EP Plan: - Prophylactic abx with cefadroxil 500mg BID x 7 days (09/26-), escalated to zosyn (09/27-) for esophageal perforation - Discontinued amiodarone #HFmrEF :: TTE from 04/2024 with LV EF at 42% declined from prior echo 06/2021, global hypokinesis of LV - Home regiment: PO lasix 20mg every other day, jardiance 25mg daily, HOLD in setting of esophageal perforation Pulmonary - No acute issues, on NC O2 post procedure while coming off sedation. Will wean. Renal - No acute issues, will obtain baseline labs GI #Esophageal perforation following ANTONIETTA :: CXR/CT chest/CT chest w PO contrast after procedure on 09/26 concerning for pneumomediastinum and esophageal perforation Plan: - Thoracic surgery consulted, OR today for EGD with potential stent placement with potential further intervention with VATS, laparoscopy, paraesophageal hernia repair, and/or PEG placement - Zosyn (09/27-) for empiric coverage, consider ID consult and adding micafungin - PPI with protonix 40 daily - NPO Endocrinology #T2DM :: Prior A1C from 04/2024: 6.7% - Home regiment of metformin 750 BID, empagliflozin 25mg (for HF) - SSI if on diet MSK #Chronic back pain #Lumbar radiculopathy :: Previously unsuccessful with conservative treatments, has undergone epidural steroid injections :: Home regiment for pain management with tylenol and gabapentin - Continue home gabapentin 1200 TID - Tylenol, lidocaine patch, voltaren gel PRN, oxycodone 5mg PRN ID #Esophageal perforation - Prophylactic abx with cefadroxil 500mg BID x7 days (09/26-) post EP procedure now discontinued - Zosyn and fluconazole (09/27-) for empiric coverage F: PRN E: Replete PRN for K<4, Mg<2 N: NPO - NO enteral nutrition or oral meds through NGT, PEG, PO A: pIV DVT ppx: Contraindicated due to EP procedure unless otherwise specified by EP GI ppx: miralax PRN for bowel regiment Code Status: Full Code Surrogate Decision Maker: Suellen (daughter) [phone] Moise Brown MD Internal Medicine, PGY-2 Cosigned by Cristobal Dunbar MD at 09/28/2024 1:11 PM EDT Associated attestation - Cristobal Dunbar MD - 09/28/2024 1:11 PM EDT Brief Attending Summary: 79-year-old male with history of sick sinus syndrome, atrial fibrillation, heart failure with reduced ejection fraction, LVEF 40 to 45%, who underwent device upgrade to Medtronic PROPERTY CLAIM REP-P for pacemaker induced cardiomyopathy and his procedure was complicated by esophageal perforation from ANTONIETTA probe. I have reviewed and evaluated the most recent data and results, personally examined the patient, and formulated the plan of care as presented above. This patient was critically ill and required continued critical care treatment. Teaching and any separately billable procedures are not included in the time calculation. Billing Provider Critical Care Time: 65 minutes Pharmacy Medication History Review Rocio Sandoval is a 79 y.o. male who is planned to be admitted for Subclavian vein stenosis. Pharmacy called the patient prior to their scheduled procedure and reviewed the patient's [id number] medications for accuracy. Medications ADDED: none Medications CHANGED: none Medications REMOVED: Amiodarone 200mg Please review updated prior to admission medication list and comments regarding how patient may be taking medications differently by going to Admission tab --> Admission Orders --> Admit Orders / Review prior to admission medications. Preferred pharmacy, last doses of medications, and allergies to be confirmed with patient by nursing the day of procedure. Sources used to complete the med history include: [facility] Pharmacy dispense history Patient Interview Good historian Chart Review Care Everywhere Below are additional concerns with the patient's DIRECTOR MERIT SYSTEM list. Patient states they are taking #1 capsule of omeprazole 40mg as needed, does NOT take daily Patient states they are taking #1 tablet of furosemide 20mg when they remember to take it. States they are bad about taking it consistently. There is no fill history to confirm medication or dosage Patient states they NO longer taking amiodarone 200mg. L.F. 11/29/23 #30/15d [facility] Please reach out via Secure Chat for questions documented in this encounter [facility] Work Phone: 10-08-2024 Hospital course Narrative Discharge Diagnosis Subclavian vein stenosis Issues Requiring Follow-Up Routine follow up Virtual visit 10/23 Repeat surgery EGD/stent removal +/- replacement 10/29 Cardiology follow up Test Results Pending At Discharge Pending Labs No current pending labs. Hospital Course Rocio Sandoval is a 79 y.o. male with history of hypertension, heart failure with reduced ejection fraction ALISHA type 2 diabetes sick sinus syndrome who presented for TV pacer extraction with upgrade to PROPERTY CLAIM REP-P biventricular pacer. 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 Patient underwent ANTONIETTA intraoperatively. Postoperatively had a chest x-ray performed demonstrating possible pneumomediastinum. He had a noncontrasted CT chest demonstrating pneumomediastinum. Patient had a CT chest with IV and p.o. contrast demonstrating a perforation at the posterior aspect of the GEJ concerning for esophageal perforation/injury. He underwent EGD with esophageal stent placement 150 x 23 distal end at 40 cm and PEG tube placement on 09/27. 09/30: transferred to [facility]. Self removal of NGT. Na 146 10/01: IR consulted G-J conversion. Na 148 10/02: IR G-J conversion completed. Unsuccessful attempt at TF initiation 08/03 equipment. Na [id number] ordered for mIVF. 10/03: tube feeds initiated. Na 153. Over his hospitalization patient was kept NPO with enteral feeds at goal via PEG/J extension, plan to convert feeds to 16 hour cycle on discharge. He will remain NPO after discharge with occasional ice chips and mouth swabs. ATB: Converted to liquid regimen of Fluconazole and Augmentin on discharge for total course of 14 days. EP instructions: Discharge Instructions for your Cardiac Device [facility] [phone] Incision: 1. Keep your incision clean and dry for 1 week. 2.May shower 7 days after the procedure. Do not submerge the incision in a tub, pool, hot tub, or luong for 4 weeks. 3.Your incision should look better each day. If you notice unusual swelling, redness, drainage or fever greater than 100 degrees, please call the Device Clinic or your Doctor's office. 4. Avoid using deodorants, powders, creams, lotions, etc on your incision for 4 weeks. 5. There are no stitches to be removed. If you received a glue closure this may appear purple-llanos and does not get removed but wears away slowly on its own. Steri-strips (small white bandages) may be removed in one week or they may fall off on their own earlier. Pain: 1.It is normal for the area around the incision to be tender for a few weeks following surgery. Pain relievers such as Tylenol or Motrin (whichever you can take) are usually sufficient for pain relief. If the pain gets worse instead of better than please call the Device Clinic or your Doctor. Activity: 1. If you have a new device and new leads placed than avoid raising your arm above shoulder level for 4 weeks. 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 2. Avoid exercising with the arm on the side of your pacemaker. So no golf, swimming, tennis, bowling etc for 4 weeks. 3.Driving: If you were driving prior to your procedure, you may resume driving in 1 week. If you experienced a loss of consciousness prior to your procedure, you should verify with your Doctor when you are able to resume driving. ID CARD: 1. It is important to carry your device ID card with you at all times. 2.Inform doctors and health care providers that you have a pacemaker or defibrillator. Electromagnetic Interference: 1.Microwave ovens are safe to use. 2. Cellular phones should be held to the opposite ear from your device. Do not carry your phone in your shirt pocket. Some i-phones that self-charge can interfere with your device so be sure to keep it away from your pacemaker/defibrillator. 3. Read the Patient Booklet for more information. You may call either the Device Clinic [phone] or the patient services of the device goal umpire with questions about specific electrical appliances and interference problems. IT IS YOUR RESPONSIBILITY TO MAKE AND KEEP APPOINTMENTS. Please refer to your Device clinic handout. At the time of discharge, his pain was well controlled and he was breathing comfortably on room air. He was ambulating with assistance and aid of walker. He was tolerating enteral feeds at goal without nausea. He was voiding regularly. The patient was educated on post operative activity restrictions, dietary guidelines, and pain management. He will have a virtual visit with Dr. Nash on 10/23/24. All questions have been answered and concerns addressed until there were none. Pertinent Physical Exam At Time of Discharge General: He is a pleasant male currently in no distress, resting in the bed. Conversational. Visit Vitals BP 107/69 (Patient Position: Lying) Pulse 71 Temp 36.2 C (97.2 F) Resp 18 Ht 1.88 m (6' 2) Wt 95.9 kg (211 lb 6.4 oz) SpO2 95% BMI 27.14 kg/m Smoking Status Never BSA 2.24 m Body mass index is 27.14 kg/m . HEENT: Normocephalic and atraumatic. CHEST: Breathing comfortably on RA. HEART: Paced rhythm in 80s per tele review. ABDOMEN: Soft, ND, nontender. PEG/J tube feeds at 65ml/h. NEUROLOGIC: Alert and oriented. Grossly intact. MSK: trace LE edema bilat - stable Home Medications Medication List START taking these medications acetaminophen 160 mg/5 mL (5 mL) suspension; Commonly known as: Tylenol; 20.5 mL (650 mg) by j-tube route every 4 hours if needed for mild pain (1 - 3).; Replaces: acetaminophen 650 mg ER tablet amoxicillin-pot clavulanate 200-28.5 mg/5 mL suspension; Commonly known as: Augmentin; 22 mL (875 mg) by j-tube route every 12 hours for 4 days. docusate sodium 50 mg/5 mL oral liquid; Commonly known as: Colace; Take 10 mL (100 mg) by mouth 2 times a day. esomeprazole 20 mg packet; Commonly known as: NexIUM; Take 40 mg by mouth once daily in the morning. Take before meals. Administer via jejunostomy tube fluconazole 40 mg/mL suspension; Commonly known as: Diflucan; 10 mL (400 mg) by j-tube route once daily for 4 days. lidocaine 4 % patch; Place 1 patch over 12 hours on the skin once daily. Remove & discard patch within 12 hours or as directed by MD. morphine 10 mg/5 mL solution; 2.5 mL (5 mg) by j-tube route every 4 hours if needed for severe pain (7 - 10). CHANGE how you take these medications rivaroxaban 20 mg tablet; Commonly known as: Xarelto; Take 1 tablet (20 mg) by g-tube once daily in the evening. Take with meals. Take with food. Administer via jejunostomy tube please; What changed: how to take this, when to take this, additional instructions STOP taking these medications acetaminophen 650 mg ER tablet; Commonly known as: Tylenol 8 HOUR; Replaced by: acetaminophen 160 mg/5 mL (5 mL) suspension amiodarone 200 mg tablet; Commonly known as: Pacerone atorvastatin 40 mg tablet; Commonly known as: Lipitor diclofenac sodium 1 % gel; Commonly known as: Voltaren empagliflozin 25 mg tablet; Commonly known as: Jardiance fexofenadine 180 mg tablet; Commonly known as: Sulaiman furosemide 20 mg tablet; Commonly known as: Lasix gabapentin 800 mg tablet; Commonly known as: Neurontin ibuprofen 200 mg tablet melatonin 10 mg tablet metFORMIN XR 750 mg 24 hr tablet; Commonly known as: Glucophage-XR MULTIPLE VITAMINS ORAL NEURIVA PLUS BRAIN PERFORMANCE ORAL omeprazole [address] capsule; Commonly known as: PriLOSEC predniSONE 10 mg tablet; Commonly known as: Deltasone tamsulosin 0.4 mg 24 hr capsule; Commonly known as: Flomax Outpatient Follow-Up Future Appointments Date Time Provider Department Center 10[facility] 2[facility] [id number] [facility] 10/23/2024 1:45 PM Monserrat Nash DO [id number] [facility] 10/27/2024 10:40 AM Sheyla Schultz MD [id number] [place] 11/06/2024 10:00 AM Tye Anne MD [id number] None 11/11/2024 9:30 AM [facility] [id number] 11/11/2024 9:30 AM [facility] [id number] [place] 11/11/2024 10:30 AM Aravind Jimenez MD [id number] [facility] 01/22/2025 8:30 AM Octavio SANDY Flores [id number] [facility] SANDY Dias Thoracic and Esophageal Surgery [id number] documented in this encounter [facility] Work Phone: 10-02-2024 Nurse Note Pt peg tube feeding has ran all over pt. ENGINEER [employer] at bedside for EKG ans asked if the pt could be bolus feed over night, due to connection issues. She gave the ok with assessment. Will continue to monitor. documented in this encounter [facility] Work Phone: 09-30-2024 Consult note Formatting of th is note is different from the original. Nutrition Initial Assessment: Nutrition Assessment Reason for Assessment: Dietitian discretion (NPO/ CL x 5 days) Patient is a 79 y.o. male presenting with for for TV pacer extraction with upgrade to PROPERTY CLAIM REP-P biventricular pacer. 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 Patient underwent ANTONIETTA intraoperatively. Post op CT chest demonstrated pneumomediastinum. MD noted that pt tolerated full dinner and clears that evening without pain. He underwent EGD with esophageal stent placement 1 PEG tube placement on 09/27. Thoracic recommended capping PEG tube and venting every 3-4hrs with plan for esophagram tomorrow. Plan for transfer to T3. PMH: hypertension, heart failure with reduced ejection fraction, ALISHA, type 2 diabetes, sick sinus syndrome Nutrition History: Food and Nutrient History: Attempted to meet with pt this morning in CICU, however he was working with therapy at time of visit. Pt had PEG placed 2/2 esophageal perf. He is currently NPO with occasional ice chips, occasional swabs. PEG to vent. Pt has been NPO x 5 days. Is at risk for refeeding once d/t prolonged NPO status. Anthropometrics: Height: 188 cm (6' 2) Weight: 104 kg (228 lb 2.8 oz) BMI (Calculated): 29.28 IBW/kg (Dietitian Calculated): 86.4 kg Percent of IBW: 120 % Weight History: Wt Readings from Last 10 Encounters: 09/28/24 104 kg (228 lb 2.8 oz) 09/18/24 105 kg (231 lb 9.6 oz) 09/12/24 99.3 kg (219 lb) 08/20/24 104 kg (229 lb) 08/13/24 104 kg (228 lb 2.8 oz) 07/28/24 106 kg (233 lb 9.6 oz) 07/17/24 107 kg (235 lb) 07/03/24 106 kg (232 lb 12.9 oz) 07/03/24 105 kg (230 lb 9.6 oz) 06/12/24 107 kg (235 lb) Weight Change %: Weight History / % Weight Change: Per weight history, weight seems to have been stable ~ 105kg (+/- 2kg) for the last 3 months. 1 outlying weight of 99/3kg on 09/12/24 noted. Nutrition Focused Physical Exam Findings: Subcutaneous Fat Loss: Defer Subcutaneous Fat Loss Assessment: Defer all Defer All Reason: pt working with therapy Muscle Wasting: Defer Muscle Wasting Assessment: Defer all Defer All Reason: pt working with therapy Edema: Edema: none Physical Findings: Skin: (surgical sites; leg, chest, and pelvis) Nutrition Significant Labs: CBC Trend: Results from last 7 days Lab Units 09/30/24 0037 09/29/24 0119 09/28/24 0504 09/27/24 1241 WBC AUTO x10*3/uL 17.3* 19.2* 17.7* 15.7* RBC AUTO x10*6/uL 4.74 4.83 4.66 4.69 HEMOGLOBIN g/dL 14.3 14.9 14.4 14.6 HEMATOCRIT % 43.3 48.2 43.3 43.9 MCV fL 91 100 93 94 PLATELETS AUTO x10*3/uL 238 236 236 220 , BMP Trend: Results from last 7 days Lab Units 09/30/24 0038 09/29/24 0119 09/28/24 0504 09/27/24 0420 GLUCOSE mg/dL 142* 139* 123* 116* CALCIUM mg/dL 8.4* 9.3 8.9 9.1 SODIUM mmol/L 147* 142 142 139 POTASSIUM mmol/L 3.7 4.3 4.4 5.1 CO2 mmol/L 19* 22 24 24 CHLORIDE mmol/L 100 102 103 103 BUN mg/dL 28* 30* 25* 16 CREATININE mg/dL 0.75 0.79 0.87 0.71 , Renal Lab Trend: Results from last 7 days Lab Units 09/30/24 0038 09/29/24 0119 09/28/24 0504 09/27/24 0420 POTASSIUM mmol/L 3.7 4.3 4.4 5.1 PHOSPHORUS mg/dL 2.3* 3.0 4.4 5.1* SODIUM mmol/L 147* 142 142 139 MAGNESIUM mg/dL 2.36 2.48* 2.29 2.16 EGFR mL/min/1.73m*2 >90 89 87 >90 BUN mg/dL 28* 30* 25* 16 CREATININE mg/dL 0.75 0.79 0.87 0.71 , Vit D: No results found for: VITD25 , Vit B12: Lab Results Component Value Date [id number] 06/13/2023 Nutrition Specific Medications: Scheduled medications acetaminophen, 1,000 mg, intravenous, q6h [Held by provider] atorvastatin, 40 mg, oral, Nightly bisacodyl, 10 mg, rectal, Nightly [Held by provider] cetirizine, 10 mg, oral, Daily [Held by provider] empagliflozin, 25 mg, oral, Daily fluconazole, 400 mg, intravenous, q24h [Held by provider] furosemide, 20 mg, oral, Daily [Held by provider] gabapentin, 1,200 mg, oral, TID insulin lispro, 0-5 Units, subcutaneous, q6h lactated Ringer's, 1,000 mL, intravenous, Once lidocaine, 1 patch, transdermal, Daily [Held by provider] melatonin, 10 mg, oral, Nightly pantoprazole, 40 mg, intravenous, Daily piperacillin-tazobactam, 3.375 g, intravenous, q6h [Held by provider] tamsulosin, 0.4 mg, oral, Daily Continuous medications PRN medications PRN medications: dextrose, dextrose, dextrose, dextrose, diclofenac sodium, glucagon, glucagon, glucagon, glucagon, hydrALAZINE, morphine, trimethobenzamide I/O: Last BM Date: (per report hasn't had bowel movement for several days. uncertain what day was his last bowel movement. CICU team is aware); Stool Appearance: Unable to assess (09/29/241999) Dietary Orders (From admission, onward) Start Ordered 09/26/242222 NPO Diet; Effective now Diet effective now Comments: No po meds 09/26/242 Estimated Needs: Total Energy Estimated Needs in 24 hours (kCal): (~2180) Method for Estimating Needs: MSJ (1820) x 1.2 Total Protein Estimated Needs in 24 Hours (g): 104 g Method for Estimating 24 Hour Protein Needs: ~1.2g/kg IBW Total Fluid Estimated Needs in 24 Hours (mL): (per team) Method for Estimating 24 Hour Fluid Needs: per team Nutrition Diagnosis Malnutrition Diagnosis Patient has Malnutrition Diagnosis: No (Unable to determine at this time. At low threshold for acute PCM d/t prolonged NPO status.) Nutrition Diagnosis Patient has Nutrition Diagnosis: Yes Diagnosis Status (1): New Nutrition Diagnosis 1: Increased nutrient needs Related to (1): increased metabolic demand As Evidenced by (1): HF, Esophageal perforation following ANTONIETTA Nutrition Interventions/Recommendations Nutrition prescription pending clinical course: Advance to PO diet if/when medically feasible pending esophogram results. If unable to start PO diet, recommend initiation of enteral nutrition via PEG when medically appropriate per cardiothoracic team. Isosource 1.5 @ 65ml/hr goal Start @ 15ml/hr and increase [id number] until goal is met FWF per MD/team discretion D/t NPO >/= 5 days + phos of 2.3mg/dL, pt is at risk of refeeding. Should nutrition support be started, follow precautions below. Refeeding Precautions: Start 100mg thiamine daily x 7 days Monitor RFP+Mg Q12H Replete electrolytes PRN + ensure lytes are replenished prior to starting nutrition support Do not start nutrition support if serum potassium </= 3 mEq/L, phosphorus </= 2mg/dL, and/or magnesium </= 1.2mEq/L If significant drop in electrolytes happens during nutrition support advancement, do not further advance If PO diet or enteral nutrition cannot be started within 48 hours, supplemental parenteral nutrition may be recommended. Please re-consult RDN for recommendations as needed. Nutrition Monitoring and Evaluation Food/Nutrient Related History Monitoring Monitoring and Evaluation Plan: Enteral and parenteral nutrition intake determination Anthropometric Measurements Monitoring and Evaluation Plan: Body weight Biochemical Data, Medical Tests and Procedures Monitoring and Evaluation Plan: Electrolyte/renal panel, Glucose/endocrine profile Electrolyte and Renal Panel: Electrolytes within normal limits Glucose/Endocrine Profile: Glucose within normal limits (80-180 mg/dL) Goal Status: New goal(s) identified Time Spent (min): 60 minutes Associated Order(s): IP CONSULT TO THORACIC SURGERY [facility] ACUTE CARE SURGERY - HISTORY AND PHYSICAL / CONSULT Patient Name: Rocio Sandoval Admit Date: [id number] : 1945 AGE: 79 y.o. GENDER: male == TODAY'S ASSESSMENT AND PLAN OF CARE: Patient is an 79-year-old man with history of hypertension, heart failure with reduced ejection fraction ALISHA type 2 diabetes sick sinus syndrome who presented for TV pacer extraction with upgrade to PROPERTY CLAIM REP-P biventricular pacer. 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 Patient underwent ANTONIETTA intraoperatively. Postoperatively had a chest x-ray performed demonstrating possible pneumomediastinum. He had a noncontrasted CT chest demonstrating pneumomediastinum. Of note, patient tolerated full dinner and clears well this evening having no abdominal pain otherwise hemodynamically stable. He is on prophylactic antibiotics for hardware. Recommendations: Strict N.p.o. until formal esophagram Esophagram in a.m. 09/27 Thoracic surgery will follow Discussed with Dr. Charity Palmer MD Thoracic surgery [id number] == CHIEF COMPLAINT/REASON FOR CONSULT: Pneumomediastinum following pacer extraction and insertion PAST MEDICAL HISTORY: PMH: Past Medical History: Diagnosis Date Benign prostatic hyperplasia without lower urinary tract symptoms 07/08/2021 BPH (benign prostatic hyperplasia) Calculus of kidney 12/30/2019 Bilateral renal stones Carpal tunnel syndrome, right upper limb 12/31/2019 Carpal tunnel syndrome of right wrist Cough 10/06/2022 Depression, unspecified 01/05/2022 Depression Disorder of arteries and arterioles, unspecified 01/05/2022 Peripheral arterial occlusive disease Dizziness 10/06/2022 Essential (primary) hypertension 06/29/2022 Hypertension, essential, benign Gastro-esophageal reflux disease without esophagitis 01/05/2022 GERD (gastroesophageal reflux disease) Hyperlipidemia, unspecified 01/05/2022 Hyperlipemia Influenza A 10/06/2022 Male erectile dysfunction, unspecified 09/03/2019 Erectile dysfunction Obesity, unspecified 08/16/2020 Obesity (BMI 30-39.9) Obstructive sleep apnea (adult) (pediatric) 01/05/2022 ALISHA on CPAP Personal history of diseases of the skin and subcutaneous tissue History of actinic keratosis Personal history of other infectious and parasitic diseases History of onychomycosis Personal history of other infectious and parasitic diseases History of tinea pedis Plantar fascial fibromatosis Plantar fasciitis Polyosteoarthritis, unspecified 09/23/2019 Generalized osteoarthritis of multiple sites Rash of genitalia 10/06/2022 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s (Multi) 01/05/2022 Type II 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 Venous insufficiency (chronic) (peripheral) Venous insufficiency of leg Last menstrual period: PSH: Past Surgical History: Procedure Laterality Date CARDIAC ELECTROPHYSIOLOGY PROCEDURE N/A 08/13/2024 Procedure: dcPPM upgrade to PROPERTY CLAIM REP-P; Surgeon: Aravind Jimenez MD; Location: [facility] Cardiac Second Vp Hr Assessment; Service: Electrophysiology; Laterality: N/A; [employer] CARDIAC PACEMAKER PLACEMENT 06/2022 INJECTION Left 05/28/2024 Lt L5/S1-S1 TFEIS INJECTION Left 09/12/2024 Lt L4/5 TFESI LUMBAR EPIDURAL INJECTION Bilateral 12/07/2023 Bilat L4/5 TFESI OTHER SURGICAL HISTORY 06/18/2019 Lumbar vertebral fusion OTHER SURGICAL HISTORY 06/18/2019 Retinal detachment repair OTHER SURGICAL HISTORY 06/18/2019 Phacoemulsification of cataract and insertion of intraocular lens OTHER SURGICAL HISTORY 06/18/2019 Circumcision OTHER SURGICAL HISTORY 06/18/2019 Knee replacement OTHER SURGICAL HISTORY 06/18/2019 Sigmoidoscopy flexible OTHER SURGICAL HISTORY 06/18/2019 Dermatological cryotherapy OTHER SURGICAL HISTORY 06/18/2019 Esophagogastroduodenoscopy OTHER SURGICAL HISTORY 06/18/2019 Nail debridement OTHER SURGICAL HISTORY 06/18/2019 Epidural space injection OTHER SURGICAL HISTORY 07/07/2020 Colonoscopy OTHER SURGICAL HISTORY 01/05/2022 Catheter ablation OTHER SURGICAL HISTORY 08/16/2020 Cardiac catheterization OTHER SURGICAL HISTORY 05/11/2020 Inguinal hernia repair PACEMAKER PLACEMENT FH: Family History Problem Relation Name Age of Onset Other (CVA) Mother Diabetes type II Father Diabetes type II Sister Heart attack Brother Coronary artery disease Brother Kidney failure Brother Diabetes type II Brother SOCIAL HISTORY: Smoking: Social History Tobacco Use Smoking Status Never Passive exposure: Never Smokeless Tobacco Never Alcohol: Social History Substance and Sexual Activity Alcohol Use Never Drug use: MEDICATIONS: Prior to Admission medications Medication Sig Start Date End Date Taking? Authorizing Provider acetaminophen (Tylenol 8 HOUR) 650 mg ER tablet Take 1 tablet (650 mg) by mouth every 8 hours if needed for mild pain (1 - 3). Do not crush, chew, or split. Yes Historical Provider, atorvastatin (Lipitor) 40 mg tablet Take 1 tablet (40 mg) by mouth once daily at bedtime. 07/03/24 07/03/25 Yes Tye Anne MD B6/folic/B12/coffee/phosphatid (NEURIVA PLUS BRAIN PERFORMANCE ORAL) Take 1 tablet by mouth once daily. Yes Historical Provider, diclofenac sodium (Voltaren) 1 % gel Apply 4.5 inches (4 g) topically 4 times a day as needed (Left thumb trigger finger). 04/28/24 Yes Sheyla Schultz MD fexofenadine (Sulaiman) 180 mg tablet Take 1 tablet (180 mg) by mouth once daily. 07/03/24 07/03/25 Yes Tye Anne MD furosemide (Lasix) 20 mg tablet Take 1 tablet (20 mg) by mouth once daily. Yes Historical Provider, gabapentin (Neurontin) 800 mg tablet Take 1.5 tablets (1,200 mg) by mouth 3 times a day. Takes 3 time a day 07/17/24 07/17/25 Yes Reggie Aragon PA-C ibuprofen 200 mg tablet Take 3 tablets (600 mg) by mouth every 6 hours if needed for mild pain (1 - 3). Yes Historical Provider, melatonin 10 mg tablet Take 1 tablet (10 mg) by mouth once daily at bedtime. Yes Historical ProviderMD metFORMIN XR (Glucophage-XR) 750 mg 24 hr tablet Take 1 tablet (750 mg) by mouth 2 times a day. 07/03/24 07/03/25 Yes Tye Anne MD omeprazole (PriLOSEC) [address] capsule Take 1 capsule (40 mg) by mouth once daily. 07/03/24 07/03/25 Yes Tye Anne MD predniSONE (Deltasone) 10 mg tablet Take 4 tablets (40 mg) by mouth once daily for 3 days, THEN 3 tablets (30 mg) once daily for 3 days, THEN 2 tablets (20 mg) once daily for 3 days, THEN 1 tablet (10 mg) once daily for 3 days. 09/18/24 09/30/24 Yes Tye Anne MD tamsulosin (Flomax) 0.4 mg 24 hr capsule Take 1 capsule (0.4 mg) by mouth once daily. 07/03/24 07/03/25 Yes Tye Anne MD amiodarone (Pacerone) 200 mg tablet Take 0.5 tablets (100 mg) by mouth once daily at bedtime. Patient not taking: Reported on 09/25/2024 Historical ProviderMD empagliflozin (Jardiance) 25 mg Take 1 tablet (25 mg) by mouth once daily. 07/03/24 07/03/25 Tye Anne MD multivitamin (MULTIPLE VITAMINS ORAL) Take 1 tablet by mouth once daily. Historical Provider, rivaroxaban (Xarelto) 20 mg tablet Take 1 tablet (20 mg) by mouth once daily. Do not fill before August 14, 2024. 08/14/24 08/14/25 Aravind Jimenez MD acetaminophen (Tylenol) 500 mg tablet Take by mouth every 6 hours if needed for mild pain (1 - 3). 09/26/24 Historical ProviderMD ALLERGIES: No Known Allergies REVIEW OF SYSTEMS: Review of Systems Negative unless otherwise specified in HPI. PHYSICAL EXAM: Physical Exam Constitutional: no acute distress Neuro: A/O x4, no gross deficits Psych: normal affect HEENT: No deformities, no scleral icterus Cardiac: RRR, pacer insertion site L chest Pulmonary: unlabored respirations, on NC while asleep Abdomen: soft, non distended, non tender Skin: warm and dry overall Extremities: no swelling noted MSK: moving all four IMAGING SUMMARY: (summary of findings, not a copy of dictation) XR chest 1 view Result Date: 09/26/2024 Interpreted By: Bret Craig and Stevens Alex STUDY: XR CHEST 1 VIEW; 09/26/2024 1:35 pm INDICATION: Signs/Symptoms:s/p L-side PROPERTY CLAIM REP-P implant on 09/26/2024. COMPARISON: XR chest 08/13/2024 ACCESSION NUMBER(S): [id number] ORDERING CLINICIAN: JANNETH YANEZ FINDINGS: AP radiograph of the chest was provided. Left chest wall implantable pacemaker/defibrillator with leads projecting over the expected location of the right atrial appendage and both ventricles. Interval development of radiolucency extending from the subcutaneous tissues of the right neck and into the superior mediastinum along the right paratracheal border. CARDIOMEDIASTINAL SILHOUETTE: Cardiomediastinal silhouette is unchanged in size and configuration. LUNGS: There are diffuse subpleural reticulations throughout the [id number]-[id number]-left lungs which were better evaluated on prior CT. Large hiatal hernia again projects over the right lower hemithorax. There is no definite pneumothorax. No large pleural effusion. Streaky bibasilar opacities may represent interstitial lung disease or atelectasis. No pleural effusions. ABDOMEN: No remarkable upper abdominal findings. BONES: No acute osseous changes. 1. Subcutaneous emphysema along the right neck with extension into the superior mediastinal structures, most consistent with pneumomediastinum. Consider further evaluation with CT versus PA/lateral radiographs to re-evaluate. 2. No definite pneumothorax. Consider repeat erect radiographs of the chest for further evaluation. I personally reviewed the images/study and I agree with the findings as stated by Toney Modi DO PGY-2. This study was interpreted at [facility], [place], [place]. MACRO: Toney Moid discussed the significance and urgency of this critical finding by secure message with Moise Brown on 09/26/2024 at 3:10 pm. (-RCF-) Findings: See findings. Signed by: Bret Craig 09/26/2024 3:11 PM Dictation workstation: [id number] LABS: Results from last 7 days Lab Units 09/26/24 1451 WBC AUTO x10*3/uL 18.1* HEMOGLOBIN g/dL 13.7 HEMATOCRIT % 42.6 PLATELETS AUTO x10*3/uL 260 NEUTROS PCT AUTO % 81.4 LYMPHS PCT AUTO % 13.0 MONOS PCT AUTO % 4.5 EOS PCT AUTO % 0.6 Results from last 7 days Lab Units 09/26/24 1451 SODIUM mmol/L 139 POTASSIUM mmol/L 4.0 CHLORIDE mmol/L 105 CO2 mmol/L 23 BUN mg/dL 18 CREATININE mg/dL 0.71 CALCIUM mg/dL 8.8 GLUCOSE mg/dL 158* I have reviewed all laboratory and imaging results ordered/pertinent for this encounter. Cosigned by Monserrat Nash DO at 09/27/2024 11:42 AM EDT Associated attestation - Monserrat Nash DO - 09/27/2024 11:42 AM EDT I saw and evaluated the patient. I personally obtained the chapin and critical portions of the history and physical exam or was physically present for chapin and critical portions performed by the resident/fellow. I reviewed the resident/fellow's documentation and discussed the patient with the resident/fellow. The patient/family had the opportunity to discuss and ask questions. I agree with the resident/fellow's medical decision making as documented in the note. Pt S&E, imaging reviewed. S/p ANTONIETTA yesterday for pacer exchange/lead extraction; post-op pneumomediastinum, has known hiatal hernia in the right chest. CT chest with PO/IV contrast showed small area of posterior extravasation concerning for perforation -- d/w patient and daughter Suellen plan for OR today with potential stent vs more aggressive surgical intervention. Thankfully he is HD stable, no abdominal pain or peritoneal signs. Does have back pain between his shoulder blades. I spent 90 minutes in the professional and overall care of this patient. documented in this encounter [facility] Work Phone: 09-27-2024 History and physical note [facility] THORACIC SURGERY - HISTORY AND PHYSICAL / CONSULT Patient Name: Rocio Sandoval Admit Date: [id number] : 1945 AGE: 79 y.o. GENDER: male == TODAY'S ASSESSMENT AND PLAN OF CARE: Patient is an 79-year-old man with history of hypertension, heart failure with reduced ejection fraction ALISHA type 2 diabetes sick sinus syndrome who presented for TV pacer extraction with upgrade to PROPERTY CLAIM REP-P biventricular pacer. 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 Patient underwent ANTONIETTA intraoperatively. Postoperatively had a chest x-ray performed demonstrating possible pneumomediastinum. He had a noncontrasted CT chest demonstrating pneumomediastinum. Of note, patient tolerated full dinner and clears well this evening having no abdominal pain otherwise hemodynamically stable. Overnight, patient had a CT chest with IV and p.o. contrast demonstrating a perforation at the posterior aspect of the GEJ concerning for esophageal perforation/injury. Plan: OR 09/27 for EGD with Possible: Stent Placement, VATS, Laparoscopy, PEH Repair, PEG Tube Placement NPO Continue with antibiotics empirically Hold any anticoagulation Will consent patient / family this am Discussed with attending Dr. Nash == CHIEF COMPLAINT/REASON FOR CONSULT: Esophageal perforation PAST MEDICAL HISTORY: PMH: Past Medical History: Diagnosis Date Benign prostatic hyperplasia without lower urinary tract symptoms 07/08/2021 BPH (benign prostatic hyperplasia) Calculus of kidney 12/30/2019 Bilateral renal stones Carpal tunnel syndrome, right upper limb 12/31/2019 Carpal tunnel syndrome of right wrist Cough 10/06/2022 Depression, unspecified 01/05/2022 Depression Disorder of arteries and arterioles, unspecified 01/05/2022 Peripheral arterial occlusive disease Dizziness 10/06/2022 Essential (primary) hypertension 06/29/2022 Hypertension, essential, benign Gastro-esophageal reflux disease without esophagitis 01/05/2022 GERD (gastroesophageal reflux disease) Hyperlipidemia, unspecified 01/05/2022 Hyperlipemia Influenza A 10/06/2022 Male erectile dysfunction, unspecified 09/03/2019 Erectile dysfunction Obesity, unspecified 08/16/2020 Obesity (BMI 30-39.9) Obstructive sleep apnea (adult) (pediatric) 01/05/2022 ALISHA on CPAP Personal history of diseases of the skin and subcutaneous tissue History of actinic keratosis Personal history of other infectious and parasitic diseases History of onychomycosis Personal history of other infectious and parasitic diseases History of tinea pedis Plantar fascial fibromatosis Plantar fasciitis Polyosteoarthritis, unspecified 09/23/2019 Generalized osteoarthritis of multiple sites Rash of genitalia 10/06/2022 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s (Multi) 01/05/2022 Type II 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 Venous insufficiency (chronic) (peripheral) Venous insufficiency of leg Last menstrual period: PSH: Past Surgical History: Procedure Laterality Date CARDIAC ELECTROPHYSIOLOGY PROCEDURE N/A 08/13/2024 Procedure: dcPPM upgrade to PROPERTY CLAIM REP-P; Surgeon: Aravind Jimenez MD; Location: [facility] Cardiac Second Vp Hr Assessment; Service: Electrophysiology; Laterality: N/A; [employer] CARDIAC PACEMAKER PLACEMENT 06/2022 INJECTION Left 05/28/2024 Lt L5/S1-S1 TFEIS INJECTION Left 09/12/2024 Lt L4/5 TFESI LUMBAR EPIDURAL INJECTION Bilateral 12/07/2023 Bilat L4/5 TFESI OTHER SURGICAL HISTORY 06/18/2019 Lumbar vertebral fusion OTHER SURGICAL HISTORY 06/18/2019 Retinal detachment repair OTHER SURGICAL HISTORY 06/18/2019 Phacoemulsification of cataract and insertion of intraocular lens OTHER SURGICAL HISTORY 06/18/2019 Circumcision OTHER SURGICAL HISTORY 06/18/2019 Knee replacement OTHER SURGICAL HISTORY 06/18/2019 Sigmoidoscopy flexible OTHER SURGICAL HISTORY 06/18/2019 Dermatological cryotherapy OTHER SURGICAL HISTORY 06/18/2019 Esophagogastroduodenoscopy OTHER SURGICAL HISTORY 06/18/2019 Nail debridement OTHER SURGICAL HISTORY 06/18/2019 Epidural space injection OTHER SURGICAL HISTORY 07/07/2020 Colonoscopy OTHER SURGICAL HISTORY 01/05/2022 Catheter ablation OTHER SURGICAL HISTORY 08/16/2020 Cardiac catheterization OTHER SURGICAL HISTORY 05/11/2020 Inguinal hernia repair PACEMAKER PLACEMENT FH: Family History Problem Relation Name Age of Onset Other (CVA) Mother Diabetes type II Father Diabetes type II Sister Heart attack Brother Coronary artery disease Brother Kidney failure Brother Diabetes type II Brother SOCIAL HISTORY: Smoking: Social History Tobacco Use Smoking Status Never Passive exposure: Never Smokeless Tobacco Never Alcohol: Social History Substance and Sexual Activity Alcohol Use Never Drug use: MEDICATIONS: Prior to Admission medications Medication Sig Start Date End Date Taking? Authorizing Provider acetaminophen (Tylenol 8 HOUR) 650 mg ER tablet Take 1 tablet (650 mg) by mouth every 8 hours if needed for mild pain (1 - 3). Do not crush, chew, or split. Yes Historical Provider, atorvastatin (Lipitor) 40 mg tablet Take 1 tablet (40 mg) by mouth once daily at bedtime. 07/03/24 07/03/25 Yes Tye Anne MD B6/folic/B12/coffee/phosphatid (NEURIVA PLUS BRAIN PERFORMANCE ORAL) Take 1 tablet by mouth once daily. Yes Historical Provider, diclofenac sodium (Voltaren) 1 % gel Apply 4.5 inches (4 g) topically 4 times a day as needed (Left thumb trigger finger). 04/28/24 Yes Sheyla Schultz MD fexofenadine (Sulaiman) 180 mg tablet Take 1 tablet (180 mg) by mouth once daily. 07/03/24 07/03/25 Yes Tye Anne MD furosemide (Lasix) 20 mg tablet Take 1 tablet (20 mg) by mouth once daily. Yes Historical Provider, gabapentin (Neurontin) 800 mg tablet Take 1.5 tablets (1,200 mg) by mouth 3 times a day. Takes 3 time a day 07/17/24 07/17/25 Yes Reggie Aragon PA-C ibuprofen 200 mg tablet Take 3 tablets (600 mg) by mouth every 6 hours if needed for mild pain (1 - 3). Yes Historical Provider, melatonin 10 mg tablet Take 1 tablet (10 mg) by mouth once daily at bedtime. Yes Historical Provider, metFORMIN XR (Glucophage-XR) 750 mg 24 hr tablet Take 1 tablet (750 mg) by mouth 2 times a day. 07/03/24 07/03/25 Yes Tye Anne MD omeprazole (PriLOSEC) [address] capsule Take 1 capsule (40 mg) by mouth once daily. 07/03/24 07/03/25 Yes Tye Anne MD predniSONE (Deltasone) 10 mg tablet Take 4 tablets (40 mg) by mouth once daily for 3 days, THEN 3 tablets (30 mg) once daily for 3 days, THEN 2 tablets (20 mg) once daily for 3 days, THEN 1 tablet (10 mg) once daily for 3 days. 09/18/24 09/30/24 Yes Tye Anne MD tamsulosin (Flomax) 0.4 mg 24 hr capsule Take 1 capsule (0.4 mg) by mouth once daily. 07/03/24 07/03/25 Yes Tye Anne MD amiodarone (Pacerone) 200 mg tablet Take 0.5 tablets (100 mg) by mouth once daily at bedtime. Patient not taking: Reported on 09/25/2024 Historical Provider, empagliflozin (Jardiance) 25 mg Take 1 tablet (25 mg) by mouth once daily. 07/03/24 07/03/25 yTe Anne MD multivitamin (MULTIPLE VITAMINS ORAL) Take 1 tablet by mouth once daily. Historical Provider, rivaroxaban (Xarelto) 20 mg tablet Take 1 tablet (20 mg) by mouth once daily. Do not fill before August 14, 2024. 08/14/24 08/14/25 Aravind Jimenez MD acetaminophen (Tylenol) 500 mg tablet Take by mouth every 6 hours if needed for mild pain (1 - 3). 09/26/24 Historical ProviderMD ALLERGIES: No Known Allergies REVIEW OF SYSTEMS: Review of Systems Negative unless otherwise specified in HPI. PHYSICAL EXAM: Physical Exam Physical Exam Constitutional: no acute distress Neuro: A/O x4, no gross deficits Psych: normal affect HEENT: No deformities, no scleral icterus Cardiac: RRR, pacer insertion site L chest Pulmonary: unlabored respirations, on NC while asleep Abdomen: soft, non distended, non tender Skin: warm and dry overall Extremities: no swelling noted MSK: moving all four IMAGING SUMMARY: (summary of findings, not a copy of dictation) CT chest w IV contrast Result Date: 09/27/2024 STUDY: CT CHEST W IV CONTRAST; 09/27/2024 3:29 am INDICATION: Signs/Symptoms:with oral contrast for esophagram, c/f esophageal perforation s/p ANTONIETTA. COMPARISON: CT chest 09/26/2024. ACCESSION NUMBER(S): [id number] ORDERING CLINICIAN: CRISTOBAL DUNBAR TECHNIQUE: Helical data acquisition of the chest was obtained after intravenous administration of 80 mL Omnipaque 350. Additional Omnipaque 03727 mL oral was given to assess for clinical suspicion of esophageal injury. Images were reformatted in axial, coronal, and sagittal planes. FINDINGS: UPPER ABDOMEN/ESOPHAGUS/MEDIASTINUM: There is focal area of extraluminal contrast extravasation located at the posterior aspect of the gastroesophageal junction (series 204, image 109/series 202, image 223) which is seen extending into the mediastinal soft tissues and contouring the large paraesophageal hernia. There is again myucuuvz-nh-pocka amount of pneumomediastinum which is grossly similar in extent compared to the prior CT from 09/26/2024 at 8:11 p.m. There is no evidence of pneumoperitoneum and the extraluminal contrast does not traverse the diaphragm into the abdominal cavity. Distally the stomach is opacified with additional contrast which can be seen to the level of the proximal small bowel in the left upper quadrant. Stable calcified nodule in the right lobe of the thyroid gland which was present dating back to prior scan from 08/01/2020. No evidence of thoracic lymphadenopathy by CT criteria. LUNGS AND AIRWAYS: The trachea and central airways are patent. No endobronchial lesion. There is again mixed centrilobular and paraseptal emphysematous changes predominantly involving the apices. There are stable subpleural reticular changes in the bilateral lower lobes with suggestion of slight bronchiolectasis. Similar appearance of streaky linear consolidations are present at the bases which likely reflect areas of prior scarring and atelectasis. The degree of the this is worse in the right lung base adjacent to the large paraesophageal hernia. Trace bilateral pleural effusions. HEART AND VESSELS: Mild dilatation of the thoracic aorta, stable compared to prior examination measuring up to 4.1 cm. There is no evidence of acute aortic pathology. There is cuxl-mr-tohmaasn calcification of the aortic arch. The main pulmonary artery is dilated and measures 3.6 cm in maximal diameter at the trunk. There is a left chest wall subclavian approach AICD/pacemaker with leads in similar position compared to prior examination. No evidence of a sizable pericardial effusion. CHEST WALL AND OSSEOUS STRUCTURES: There are no suspicious osseous lesions. Multilevel degenerative changes are present 1. Focal area of contrast spanning the wall of the posterior aspect of the gastroesophageal junction tracking along the mediastinum/large volume pneumomediastinum. Findings are highly suggestive of esophageal perforation/injury. Recommend surgical consultation. The extent of yoyjkqtp-bs-tlzoz volume pneumomediastinum is unchanged. 2. Large paraesophageal hernia. 3. Similar lung findings as above with trace pleural effusions and bibasilar atelectatic changes versus scarring. Additional chronic lung findings as above. MACRO: Jeancarlos Hylton discussed the significance and urgency of this critical finding by EPIC CHAT with CRISTOBAL DUNBAR; ELÍAS MORRIS;NANCY WAHL on 09/27/2024 at 4:40 am. (-RCF-) Findings: See findings. Dictation workstation: [id number] CT chest wo IV contrast Result Date: 09/26/2024 STUDY: CT CHEST WO IV CONTRAST; 09/26/2024 8:11 pm INDICATION: Signs/Symptoms:Evaluate for pneumomediastinum as reported by CXR. COMPARISON: CT PE 07/21/20 ACCESSION NUMBER(S): [id number] ORDERING CLINICIAN: CRISTOBAL DUNBAR TECHNIQUE: Helical data acquisition of the chest was obtained without intravenous contrast. Images were reformatted in axial, coronal, and sagittal planes. FINDINGS: LUNGS AND AIRWAYS: The trachea and central airways are patent. No endobronchial lesion is seen. There is bilateral apical predominant emphysematous changes. Redemonstrated bronchiectasis of the bilateral lower lobes. There is trace pleural effusion with associated atelectasis. Consolidative opacities are noted within the right lower lobe contiguous with the bochdalek hernia that likely represent atelectasis with superimposed infectious process not completely excluded.. The bilateral lungs are without evidence of pleural effusion or pneumothorax. MEDIASTINUM AND KOSTAS, LOWER NECK AND AXILLA: Redemonstrated 1.2 cm calcified hyperdensity within the right thyroid lobe that is stable compared to prior exam in 2020. Multiple subcentimeter mediastinal lymph nodes that do not meet size criteria for lymphadenopathy. Moderate size posterior bochdalek hernia. There is additional patulous esophagus with concentric wall thickening suggestive of esophagitis. The majority of the pneumomediastinum extends along the stomach and distal esophagus there is a tract of air extending from the gastroesophageal junction to the pneumomediastinum (series 201, image 195; series 201, image 209 and 207; series 204, image 98). Another tract extending from the soft thoracic esophagus most superiorly into the mediastinum is noted on series 204, image 95. There are additional hyperattenuating fluid layering within the posterior dependent portions of the esophagus on series 201, image 215 these findings are suggestive of an esophageal injury/perforation. There is a moderate sized pneumomediastinum extending from the base of the heart to the superior borders of the mediastinum. There is additional subcutaneous emphysema that extends along the anterior bilateral neck. HEART AND VESSELS: Mildly dilated ascending thoracic aorta measuring 4.2 cm in diameter. Rest of the thoracic aorta is normal in course and caliber.There is moderate calcified atherosclerosis present. Main pulmonary artery is mildly dilatedmeasuring 3.4 cm. Severe coronary artery calcifications are seen. Please note,the study is not optimized for evaluation of coronary arteries. There is similar to slightly worsened mild cardiomegalyThere are prominent aortic valvular califications seen, and correlate with concern for aortic stenosis.There is a left subclavian approach dual chamber cardiac pacemaker/ICD seen in placewith leads terminating within right atrium and apical right ventricle. There is a trace pericardial effusion present. UPPER ABDOMEN: There is several foci of air within the perihepatic space compatible with pneumoperitoneum. CHEST WALL AND OSSEOUS STRUCTURES: Chest wall is within normal limits. No acute osseous pathology.There are no suspicious osseous lesions.Moderate multilevel degenerative changes within visualized spine. 1. Interval development of moderate pneumomediastinum extending from the base of the heart to mediastinal superior borders with extension to the subcutaneous soft tissues of the neck. 2. The majority of the pneumomediastinum extends along the stomach and distal esophagus. There is hyperattenuating fluid layering within the posterior dependent portions of the concentrically thickened esophageal webster. There is equivocal tract of air extending from the gastroesophageal junction to the pneumomediastinum as well as from the thoracic esophagus the pneumomediastinum as described above. The constellation of these findings are concerning for esophageal injury/perforation. CT IV and oral contrast would be recommended with a Omni 240 for more comprehensive characterization. 3. Bochdalek's hernia containing majority of the stomach. 4. Trace left pleural effusion with associated atelectasis. Consolidative opacities are noted within the right lower lobe contiguous with the Bochdalek's hernia that likely represent atelectasis. Superimposed infectious process can not be definitively excluded. 5. Interval development of trace pneumoperitoneum. 6. Additional findings as described above. The above findings were communicated with Dr. Elías Morris via phone at 10:12 pm. MACRO: Adrián Varner discussed the significance and urgency of this critical finding by telephone with Elías Morris on 09/26/2024 at 10:13 pm. (-RCF-) Findings: See findings. Dictation workstation: [id number] Electrophysiology procedure Result Date: 09/26/2024 Images from the original result were not included. Transvenous Lead extraction of RA pacing lead with upgrade of device to PROPERTY CLAIM REP-P Procedures Removal of PPM generator (77608) and Removal electrodes dual lead PPM system (44205), Addition of LV lead with pre-existing PPM/ICD (33880) PROPERTY CLAIM REP PPM gen change (54255) Patient history: Please refer to the detailed history and physical on the patient's medical chart. Procedure narrative: The patient was taken to [facility] in a fasting state, where they were monitored throughout the procedure. Patient was intubated by anesthesia and a radial arterial line was placed for continuous hemodynamic monitoring. Post ETT intubation, a ANTONIETTA probe was advanced by Anesthesia to get baseline images. Initial ANTONIETTA imaging showed No pericardial effusion and Moderate tricuspid regurgitation. Patient was then prepped and draped from neck to knees with a windowed drape to allow for rapid sternotomy access (subxiphoid, sternotomy incision and groin access site were marked pre-draping with sterile skin safe marker). The bilateral femoral vein was accessed x 3 using the modified Seldinger technique. 3 sheaths were inserted. The right common femoral vein was evaluated with ultrasound, it was normal in size and anatomy. The vein was accessed using ultrasound guidance and a 18G Cook needle, with direct visualization of the needle at all times. Similarly the left common femoral vein was also evaluated with ultrasound and access was obtained with ultrasound guidance and direct visualization. Images were saved for both vein accesses. Over the guidewires an 8F and 12F sheaths were inserted into the right femoral vein. A 9F sheath was also introduced into the left femoral vein. Through the 8F sheath in the right femoral vein, a quad polar catheter was introduced under fluoroscopic guidance to the RV and patient was paced temporarily for the duration of the procedure Through the 8F splittable femoral sheath a stiff amplatz wire was advanced to up to the IJ/right subclavian. Once the wire was in location, a 12F sheath was back loaded on to the wire to allow to rapid switch to larger access for Bridge balloon deployment if needed. The area of the prior device implant site (left pectoral deltoid and subclavian area) was sterilely was anesthetized locally using 50/50 combination of 2% lidocaine with Epi and 0.25% Marcaine. Using a #15 scalpel blade, an incision was made at the left pectodeltoid groove. The skin was dissected and blunted on the previously implanted pulse generator. The RA pacing lead was disconnected from the pulse generator. The lead loops were freed from underlying capsule/tissue, and suture sleeve was removed after cutting the sutures. Stylets were introduced into the RA pacing lead and torqueing tool was used to try retract the active fixation screw under fluoroscopic guidance. The RA pacing lead screw(s) was noted to be retracted. The stylet was then removed. Lead prep: The RA pacing lead was first prepped and then IS-1 pin was cut. A lead locking stylet (LLD EZ) was then introduced into the central lumen and advanced under fluoroscopy. Once in final position, the LLD was deployed. A #2 silk suture was tired to the lead and proximal portion of suture to the proximal portion of the LLD. Extraction: CTS surgeon was contacted and informed prior to use of any extraction tools or before extraction of any leads was attempted. Surgeon was confirmed to be available and ready. We first started with the RA pacing lead and used the LLD Ez x1 . We attempted to advance the sheath over the lead but the lead dislodged and was pulling back. At this point we had the 12F right femoral sheath a 20 mm gooseneck snare was introduced and the distal tip of the RA lead was snared. Using the snare lead for countertraction we were then able to advance the 14F laser and medium sheath to the innominate portion. At this point the lead was released from the snare and lead was extracted while leaving the outer medium VISI sheath. Extraction tools used: LLD EZ x1, 14F Excimer laser with medium Visi-sheath, and 20mm gooseneck snare Re-implant: Dual-chamber pacemaker Upgrade to Biventricular Pacemaker Using the VISI sheath we were able to introduce a angled Glidewire down to the IVC. Sheath was removed. Over the Glidewire a 9F splittable sheath was introduced. The Glidewire was double wired to retain access. A 9F sheath was advanced over one of the other guidewires, and the dilator and guidewire were removed. A combination of MDT Attain Multipurpose and 0.035 Regular J-tipped guidewire were used to intubate the CS. Over the wire the CS sheath was advanced into the main body of the CS. A venogram was obtained through the sheath and showed a reasonable branch (posterolateral). Using an angioplasty wire (0.014 J curve whisper wire), an over the wire coronary sinus lead (MDT Attain Performa) was placed in the lateral/posterior lateral vein. Appropriate sensing and thresholds were obtained. he inner sheath was slit using a anadjustable splitter under fluoroscopic guidance. The sheath was peeled away. The lead was sutured in place to the pectoralis muscle using x3 of ties. Prior existing lead, the RV pacing leads were tested, and parameters were noted to be at baseline. A biventricular pacemaker pulse generator was attached to the leads and implanted. Since patient was in permanent defibrillation the RA pin was plugged. The device was interrogated and its parameters recorded; telemetered electrograms and pacing and sensing thresholds were measured. The pocket was flushed with Irricept solution. Wound hemostasis was obtained with electrocautery and FlowSeal. Antibiotic pouch Tyrx was used in the pocket . The wound was closed in three layers using #2-0 and #3-0 Vicryl. The skin was approximated with subcuticular suture (#4-0 Vicryl) and skin adhesive. Steri-strips were applied, and the incision covered with a sterile dressing. Manual pressure was applied. Final Implant Settings: Post implant device parameters scanned into the system Access closure: Right Femoral venous access is were closed using the Perclose device (total x2). Left femoral venous access closed via figure of 8 suture. Manual pressure at this time was held for 5 to 10 minutes. Summary: Successful Transvenous Lead Extraction of Dual chamber pacemaker (Pulse generator and lead(s) [RA]) Successful upgrade of a left sided Medtronic Dual chamber pacemaker to a Biventricular Pacemaker Recommendation: Please hold all anticoagulation including heparin products unless otherwise specified by our electrophysiology service Monitor on telemetry overnight - admitted to CICU Bedrest for 3 hours post sheath removal PA/Lat Chest Xray in AM tomorrow morning Figure-of-8 suture from LFV access to be removed in AM Discharge home with PO Abx Cefadroxil 500mg BID x7 days Patient Instructions: Patient Instructions: Please do not lift left arm above shoulder level for 4-5 weeks No repetitive motion or lifting heavy weight for 4-5 weeks [address], alcohol or making legal decisions for 24 hours. Keep wound completely dry for 7 days; may shower but keep bandage as dry as possible. No soaking in hot tubs or baths for 10 days. May sponge bath Keep bandage on incision until seen in the office in 1 week. Allow steristrips underneath to fall off naturally. Please call our office ([facility]: [phone]) if you notice any discharge or swelling around incision or fever. See complete procedural log and parameters. Attending Attestation: I was present and scrubbed for the entire duration of the procedure. Disclaimer: This note was dictated by speech recognition, and every effort has been made to prevent any error in scrum project manager, however minor errors may be present XR chest 1 view Result Date: 09/26/2024 Interpreted By: Bret Craig and Stevens Alex STUDY: XR CHEST 1 VIEW; 09/26/2024 1:35 pm INDICATION: Signs/Symptoms:s/p L-side PROPERTY CLAIM REP-P implant on 09/26/2024. COMPARISON: XR chest 08/13/2024 ACCESSION NUMBER(S): [id number] ORDERING CLINICIAN: JANNETH YANEZ FINDINGS: AP radiograph of the chest was provided. Left chest wall implantable pacemaker/defibrillator with leads projecting over the expected location of the right atrial appendage and both ventricles. Interval development of radiolucency extending from the subcutaneous tissues of the right neck and into the superior mediastinum along the right paratracheal border. CARDIOMEDIASTINAL SILHOUETTE: Cardiomediastinal silhouette is unchanged in size and configuration. LUNGS: There are diffuse subpleural reticulations throughout the qmufh-wahhlxq-hamn-left lungs which were better evaluated on prior CT. Large hiatal hernia again projects over the right lower hemithorax. There is no definite pneumothorax. No large pleural effusion. Streaky bibasilar opacities may represent interstitial lung disease or atelectasis. No pleural effusions. ABDOMEN: No remarkable upper abdominal findings. BONES: No acute osseous changes. 1. Subcutaneous emphysema along the right neck with extension into the superior mediastinal structures, most consistent with pneumomediastinum. Consider further evaluation with CT versus PA/lateral radiographs to re-evaluate. 2. No definite pneumothorax. Consider repeat erect radiographs of the chest for further evaluation. I personally reviewed the images/study and I agree with the findings as stated by Toney Modi, PGY-2. This study was interpreted at [place], [place]. MACRO: Toney Modi discussed the significance and urgency of this critical finding by secure message with Moise Brown on 09/26/2024 at 3:10 pm. (-RCF-) Findings: See findings. Signed by: Bret Craig 09/26/2024 3:11 PM Dictation workstation: [id number] LABS: Results from last 7 days Lab Units 09/27/24 0420 09/26/24 1451 WBC AUTO x10*3/uL 19.6* 18.1* HEMOGLOBIN g/dL 13.9 13.7 HEMATOCRIT % 44.8 42.6 PLATELETS AUTO x10*3/uL -- 260 NEUTROS PCT AUTO % -- 81.4 LYMPHS PCT AUTO % -- 13.0 MONOS PCT AUTO % -- 4.5 EOS PCT AUTO % -- 0.6 Results from last 7 days Lab Units 09/27/24 0420 09/26/24 1451 SODIUM mmol/L 139 139 POTASSIUM mmol/L 5.1 4.0 CHLORIDE mmol/L 103 105 CO2 mmol/L 24 23 BUN mg/dL 16 18 CREATININE mg/dL 0.71 0.71 CALCIUM mg/dL 9.1 8.8 GLUCOSE mg/dL 116* 158* I have reviewed all laboratory and imaging results ordered/pertinent for this encounter. Cosigned by Monserrat Nash DO at 09/27/2024 11:39 AM EDT History Of Present Illness Rocio Sandoval is a 79 y.o. male with history of afib, sick sinus syndrome, HFmrEF, HTN, HLD, ALISHA, T2DM admitted following elective CIED transvenous extraction and upgrade to Medtronic PROPERTY CLAIM REP-P for pacemaker induced cardiomyopathy. During past few months, has been experiencing increased fatigue and was seen by EP with Dr. Jimenez. He underwent nuclear stress test on 06/09, negative for inducible myocardial ischemia but with moderate dilation of LV and global hypokinesis. He then was planned to undergo underwent pacemaker upgrade and AV obinna ablation last month with Dr. Jimenez however was unsuccessful. Venogram of the left arm IV was performed showing stenosis of the subclavian with small area of occlusion which was not able to be bypassed. This procedure was then aborted and planned to undergo the CIED extraction and upgrade, as performed today. At bedside today, patient complaining of significant back pain. He has chronic back pain and follows with pain management as outpatient for lumbar radiculopathy and feels this is an exacerbation of his chronic pain with lying flat for the procedure. He denies any chest pain, SOB, fevers/chills, nausea/vomiting, pain otherwise. Past Medical History He has a past medical history of Benign prostatic hyperplasia without lower urinary tract symptoms (07/08/2021), Calculus of kidney (12/30/2019), Carpal tunnel syndrome, right upper limb (12/31/2019), Cough (10/06/2022), Depression, unspecified (01/05/2022), Disorder of arteries and arterioles, unspecified (01/05/2022), Dizziness (10/06/2022), Essential (primary) hypertension (06/29/2022), Gastro-esophageal reflux disease without esophagitis (01/05/2022), Hyperlipidemia, unspecified (01/05/2022), Influenza A (10/06/2022), Male erectile dysfunction, unspecified (09/03/2019), Obesity, unspecified (08/16/2020), Obstructive sleep apnea (adult) (pediatric) (01/05/2022), Personal history of diseases of the skin and subcutaneous tissue, Personal history of other infectious and parasitic diseases, Personal history of other infectious and parasitic diseases, Plantar fascial fibromatosis, Polyosteoarthritis, unspecified (09/23/2019), Rash of genitalia (10/06/2022), 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s (Multi) (01/05/2022), and Venous insufficiency (chronic) (peripheral). Surgical History He has a past surgical history that includes Other surgical history (06/18/2019); Other surgical history (06/18/2019); Other surgical history (06/18/2019); Other surgical history (06/18/2019); Other surgical history (06/18/2019); Other surgical history (06/18/2019); Other surgical history (06/18/2019); Other surgical history (06/18/2019); Other surgical history (06/18/2019); Other surgical history (06/18/2019); Other surgical history (07/07/2020); Other surgical history (01/05/2022); Other surgical history (08/16/2020); Other surgical history (05/11/2020); Cardiac pacemaker placement (06/2022); pacemaker placement; Lumbar epidural injection (Bilateral, 12/07/2023); NM injection (Left, 05/28/2024); Cardiac electrophysiology procedure (N/A, 08/13/2024); and NM injection (Left, 09/12/2024). Social History He reports that he has never smoked. He has never been exposed to tobacco smoke. He has never used smokeless tobacco. He reports that he does not drink alcohol and does not use drugs. Family History Family History Problem Relation Name Age of Onset Other (CVA) Mother Diabetes type II Father Diabetes type II Sister Heart attack Brother Coronary artery disease Brother Kidney failure Brother Diabetes type II Brother Allergies Patient has no known allergies. Review of Systems Review of systems was performed and is otherwise negative except as noted in HPI. Physical Exam General: awake, alert, conversant, appears stated age, in notable pain associated with his back HEENT: pupils equal and round, no scleral icterus Skin: no suspect lesions or rashes noted on visible skin Chest: ctab, normal respiratory effort, On NC O2 for supplemental oxygen. Access site from left chest with clean, intact dressing Cardiac: regular rate, normal s1, s2, no M/R/G Abdomen: soft, ND, NT, no involuntary guarding : no flank pain or indwelling urinary catheter EXT: no peripheral edema, no asymmetry noted. Bilateral groin access sites with dressing, clean and intact, no erythema or tenderness MSK: no focal joint swelling noted Neuro: AOx4, moving all limbs spontaneously, follows commands Psych: coherent thought process, appropriate mood and affect Last Recorded Vitals BP 176/76 Pulse 60 Temp 35.2 C (95.4 F) (Temporal) Resp 21 Wt 104 kg (230 lb) SpO2 98% Relevant Results Assessment/Plan Assessment & Plan Subclavian vein stenosis Permanent atrial fibrillation (Multi) Sick sinus syndrome (Multi) Pacing-induced cardiomyopathy (Multi) Rocio Sandoval is a 79 y.o. male with history of afib, sick sinus syndrome, HFmrEF, HTN, HLD, ALISHA, T2DM admitted following elective CIED transvenous extraction and upgrade to Medtronic PROPERTY CLAIM REP-P for pacemaker induced cardiomyopathy, admitted to CICU for post procedural monitoring. Neuro - No acute issues or evidence of encephalopathy Cardiology #Permanent afib #Sick sinus syndrome #Pacemaker induced cardiomyopathy #Post CIED transvenous extraction, and upgrade to Medtronic PROPERTY CLAIM REP-P :: Underwent transvenous lead extraction of medtronic dual chamber pacemaker and implant of medtronic biventricular pacemaker on 09/26 with EP Plan: - Per EP, post-procedural protocol: hold all anticoagulation, bedrest 3 hours post sheath removal, figure-of-8 suture removal this afternoon - Prophylactic abx with cefadroxil 500mg BID x 7 days (09/26-) - PA/Lat CXR tomrrow AM - Discontinue amiodarone #HFmrEF :: TTE from 04/2024 with LV EF at 42% declined from prior echo 06/2021, global hypokinesis of LV - Home regiment: PO lasix 20mg every other day, jardiance 25mg daily Pulmonary - No acute issues, on NC O2 post procedure while coming off sedation. Will wean. Renal - No acute issues, will obtain baseline labs GI - Carb controlled diet - PRN miralax for bowel regiment Endocrinology #T2DM :: Prior A1C from 04/2024: 6.7% - Home regiment of metformin 750 BID, empagliflozin 25mg (for HF) - Will maintain on SSI for now MSK #Chronic back pain #Lumbar radiculopathy :: Previously unsuccessful with conservative treatments, has undergone epidural steroid injections :: Home regiment for pain management with tylenol and gabapentin - Continue home gabapentin 1200 TID - Tylenol, lidocaine patch, voltaren gel PRN ID - Prophylactic abx with cefadroxil 500mg BID x7 days (09/26-) post EP procedure F: PRN E: Replete PRN for K<4, Mg<2 N: Carb controlled diet A: pIV DVT ppx: Contraindicated due to EP procedure unless otherwise specified by EP GI ppx: miralax PRN for bowel regiment Code Status: Full Code Surrogate Decision Maker: Suellen (daughter) [phone] Moise Brown MD PGY-2 Internal Medicine Patient to be staffed with attending physician in AM Cosigned by Cristobal Dunbar MD at 09/28/2024 1:10 PM EDT Associated attestation - Cristobal Dunbar MD - 09/28/2024 1:10 PM EDT Brief Attending Summary: 79-year-old male with history of sick sinus syndrome, atrial fibrillation, heart failure with reduced ejection fraction, LVEF 40 to 45%, who underwent device upgrade to Medtronic PROPERTY CLAIM REP-P for pacemaker induced cardiomyopathy and his procedure was complicated by esophageal perforation from ANTONIETTA probe. I have reviewed and evaluated the most recent data and results, personally examined the patient, and formulated the plan of care as presented above. This patient was critically ill and required continued critical care treatment. Teaching and any separately billable procedures are not included in the time calculation. Billing Provider Critical Care Time: 65 minutes History Of Present Illness Rocio Sandoval is a 79 y.o. male with PMH of DM, HTN, HLD, ALISHA, persistent AF s/p RFA (PVI, PWI November 2021, persistent AF based on CIED interrogation since January 2023), and SSS s/p Medtronic dcPPM in 2021 with high RV pacing burden (>90%), who developed PPM-related cardiomyopathy (LVEF 60-65 % in 06/2021 -> 40-45% in 04/2024) and presented to his elective CIED extraction with subsequent upgrade to Medtronic PROPERTY CLAIM REP-P. Patient recently presented to [facility] EP lab for the upgrade procedure but his left axillary vein was completely occluded at that time. Past Medical History Past Medical History: Diagnosis Date Benign prostatic hyperplasia without lower urinary tract symptoms 07/08/2021 BPH (benign prostatic hyperplasia) Calculus of kidney 12/30/2019 Bilateral renal stones Carpal tunnel syndrome, right upper limb 12/31/2019 Carpal tunnel syndrome of right wrist Cough 10/06/2022 Depression, unspecified 01/05/2022 Depression Disorder of arteries and arterioles, unspecified 01/05/2022 Peripheral arterial occlusive disease Dizziness 10/06/2022 Essential (primary) hypertension 06/29/2022 Hypertension, essential, benign Gastro-esophageal reflux disease without esophagitis 01/05/2022 GERD (gastroesophageal reflux disease) Hyperlipidemia, unspecified 01/05/2022 Hyperlipemia Influenza A 10/06/2022 Male erectile dysfunction, unspecified 09/03/2019 Erectile dysfunction Obesity, unspecified 08/16/2020 Obesity (BMI 30-39.9) Obstructive sleep apnea (adult) (pediatric) 01/05/2022 ALISHA on CPAP Personal history of diseases of the skin and subcutaneous tissue History of actinic keratosis Personal history of other infectious and parasitic diseases History of onychomycosis Personal history of other infectious and parasitic diseases History of tinea pedis Plantar fascial fibromatosis Plantar fasciitis Polyosteoarthritis, unspecified 09/23/2019 Generalized osteoarthritis of multiple sites Rash of genitalia 10/06/2022 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s (Multi) 01/05/2022 Type II 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 Venous insufficiency (chronic) (peripheral) Venous insufficiency of leg Surgical History Past Surgical History: Procedure Laterality Date CARDIAC ELECTROPHYSIOLOGY PROCEDURE N/A 08/13/2024 Procedure: dcPPM upgrade to PROPERTY CLAIM REP-P; Surgeon: Aravind Jimenez MD; Location: [facility] Cardiac Second Vp Hr Assessment; Service: Electrophysiology; Laterality: N/A; Medtronic CARDIAC PACEMAKER PLACEMENT 06/2022 INJECTION Left 05/28/2024 Lt L5/S1-S1 TFEIS INJECTION Left 09/12/2024 Lt L4/5 TFESI LUMBAR EPIDURAL INJECTION Bilateral 12/07/2023 Bilat L4/5 TFESI OTHER SURGICAL HISTORY 06/18/2019 Lumbar vertebral fusion OTHER SURGICAL HISTORY 06/18/2019 Retinal detachment repair OTHER SURGICAL HISTORY 06/18/2019 Phacoemulsification of cataract and insertion of intraocular lens OTHER SURGICAL HISTORY 06/18/2019 Circumcision OTHER SURGICAL HISTORY 06/18/2019 Knee replacement OTHER SURGICAL HISTORY 06/18/2019 Sigmoidoscopy flexible OTHER SURGICAL HISTORY 06/18/2019 Dermatological cryotherapy OTHER SURGICAL HISTORY 06/18/2019 Esophagogastroduodenoscopy OTHER SURGICAL HISTORY 06/18/2019 Nail debridement OTHER SURGICAL HISTORY 06/18/2019 Epidural space injection OTHER SURGICAL HISTORY 07/07/2020 Colonoscopy OTHER SURGICAL HISTORY 01/05/2022 Catheter ablation OTHER SURGICAL HISTORY 08/16/2020 Cardiac catheterization OTHER SURGICAL HISTORY 05/11/2020 Inguinal hernia repair PACEMAKER PLACEMENT Social History He reports that he has never smoked. He has never been exposed to tobacco smoke. He has never used smokeless tobacco. He reports that he does not drink alcohol and does not use drugs. Family History Family History Problem Relation Name Age of Onset Other (CVA) Mother Diabetes type II Father Diabetes type II Sister Heart attack Brother Coronary artery disease Brother Kidney failure Brother Diabetes type II Brother Allergies Patient has no known allergies. Review of Systems All other systems reviewed and are negative. Physical Exam Vitals and nursing note reviewed. Cardiovascular: Rate and Rhythm: Normal rate and regular rhythm. Pulses: Normal pulses. Heart sounds: Normal heart sounds. Pulmonary: Effort: Pulmonary effort is normal. Breath sounds: Normal breath sounds. Musculoskeletal: General: Normal range of motion. Skin: General: Skin is warm. Capillary Refill: Capillary refill takes less than 2 seconds. Neurological: General: No focal deficit present. Mental Status: He is oriented to person, place, and time. Mental status is at baseline. Last Recorded Vitals There were no vitals taken for this visit. Relevant Results Assessment/Plan Assessment & Plan Subclavian vein stenosis Permanent atrial fibrillation (Multi) Pacing-induced cardiomyopathy (Multi) Elective CIED transvenous extraction with subsequent upgrade to Medtronic PROPERTY CLAIM REP-P Patient had slow intrinsic ventricular rhythm around 40-50 bpm on his last CIED interrogation in 08/2024. Perhaps, this procedure will require temporary pacing catheter placement too. I spent 60 minutes in the professional and overall care of this patient. Janneth Yanez MD Cosigned by Aravind Jimenez MD at 09/29/2024 10:15 PM EDT documented in this encounter [facility] Work Phone: 09-26-2024 Hospital Discharge instructions Janneth Yanez MD - 09/26/2024 12:06 PM EDT Discharge Instructions for your Cardiac Device [facility] CL[facility]IC [phone] Incision: Keep your incision clean and dry for 1 week. May shower 7 days after the procedure. Do not submerge the incision in a tub, pool, hot tub, or luong for 4 weeks. Your incision should look better each day. If you notice unusual swelling, redness, drainage or fever greater than 100 degrees, please call the Device Clinic or your Doctor's office. Avoid using deodorants, powders, creams, lotions, etc on your incision for 4 weeks. There are no stitches to be removed. If you received a glue closure this may appear purple-llanos and does not get removed but wears away slowly on its own. Steri-strips (small white bandages) may be removed in one week or they may fall off on their own earlier. Pain: It is normal for the area around the incision to be tender for a few weeks following surgery. Pain relievers such as Tylenol or Motrin (whichever you can take) are usually sufficient for pain relief. If the pain gets worse instead of better than please call the Device Clinic or your Doctor. Activity: If you have a new device and new leads placed than avoid raising your arm above shoulder level for 4 weeks. 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 Avoid exercising with the arm on the side of your pacemaker. So no golf, swimming, tennis, bowling etc for 4 weeks. Driving: If you were driving prior to your procedure, you may resume driving in 1 week. If you experienced a loss of consciousness prior to your procedure, you should verify with your Doctor when you are able to resume driving. ID CARD: It is important to carry your device ID card with you at all times. Inform doctors and health care providers that you have a pacemaker or defibrillator. Electromagnetic Interference: Microwave ovens are safe to use. Cellular phones should be held to the opposite ear from your device. Do not carry your phone in your shirt pocket. Some i-phones that self-charge can interfere with your device so be sure to keep it away from your pacemaker/defibrillator. Read the Patient Booklet for more information. You may call either the Device Clinic [phone] or the patient services of the device goal umpire with questions about specific electrical appliances and interference problems. IT IS YOUR RESPONSIBILITY TO MAKE AND KEEP APPOINTMENTS. Please refer to your Device clinic handout. documented in this encounter [facility] Work Phone: 09-18-2024 History of Present illness Narrative Subjective Patient ID: Rocio Sandoval is a 79 y.o. male who presents for HOWELL over RT EYE x3days. HPI Seen optho yesterday, had blood testing done yesterday Has had a headache for 3 days, no visual changes, not sensitive to touch/no rash, pain comes and goes, gets dizzy when bends over, had a back injection done last week (has helped with left leg pain), no issues sleeping Review of Systems Constitutional: Negative for activity change, appetite change and fatigue. Eyes: Negative for visual disturbance. Respiratory: Negative for cough, chest tightness and shortness of breath. Cardiovascular: Negative for chest pain, palpitations and leg swelling. Gastrointestinal: Negative for abdominal pain, constipation, diarrhea, nausea and vomiting. Neurological: Positive for headaches. Negative for dizziness, facial asymmetry and light-headedness. Objective BP 130/70 Pulse 67 Ht 1.88 m (6' 2) Wt 105 kg (231 lb 9.6 oz) SpO2 97% BMI 29.74 kg/m Physical Exam Vitals and nursing note reviewed. Constitutional: Appearance: Normal appearance. HENT: Head: Normocephalic and atraumatic. Right Ear: Tympanic membrane, ear canal and external ear normal. Left Ear: Tympanic membrane, ear canal and external ear normal. Nose: Nose normal. Mouth/Throat: Mouth: Mucous membranes are moist. Pharynx: Oropharynx is clear. Cardiovascular: Rate and Rhythm: Normal rate and regular rhythm. Pulses: Normal pulses. Heart sounds: Normal heart sounds. Pulmonary: Effort: Pulmonary effort is normal. Breath sounds: Normal breath sounds. Musculoskeletal: Cervical back: Normal range of motion and neck supple. Skin: General: Skin is warm and dry. Capillary Refill: Capillary refill takes less than 2 seconds. Neurological: General: No focal deficit present. Mental Status: He is alert and oriented to person, place, and time. Mental status is at baseline. Comments: Tender over the right sabianist area, no pulsatile masses felt, pupils are equal round reactive to light and accommodation extraocular movements intact. Skin shows no evidence of a rash. Psychiatric: Mood and Affect: Mood normal. Behavior: Behavior normal. Assessment/Plan Problem List Items Addressed This Visit None Visit Diagnoses Codes Acute intractable headache, unspecified headache type - Primary R51.9 Sed rate and CRP were both negative, check CT of the head, placed on prednisone taper. Relevant Medications predniSONE (Deltasone) 10 mg tablet Other Relevant Orders CT head wo IV contrast documented in this encounter [facility] Work Phone: 09-18-2024 Instructions Tye Anne MD - 09/18/2024 1:40 PM EDT Use the Prednisone taper over the next 10 days, get CT of the head and call if worse or not improving in the next 3-4 days. Call if rash documented in this encounter [facility] Work Phone: 09-12-2024 Nurse Surgical operation note 1050 Pt stood and ambulated 50 steps reports numbness is gone from Lt leg and edin well. 1052 Discharge instructions reviewed by Zuly Amado RN no questions and verbalized understanding. discharged amb steady gait, to exit to be driven home by Barbara, edin well [facility] 09-12-2024 Miscellaneous Notes 1050 Pt stood and ambulated 50 steps reports numbness is gone from Lt leg and edin well. 1052 Discharge instructions reviewed by Zuly Amado RN no questions and verbalized understanding. discharged amb steady gait, to exit to be driven home by Barbara, edin well documented in this encounter [facility] Work Phone: 09-12-2024 Miscellaneous Notes 1050 Pt stood and ambulated 50 steps reports numbness is gone from Lt leg and edin well. 1052 Discharge instructions reviewed by Zuly Amado RN no questions and verbalized understanding. discharged amb steady gait, to exit to be driven home by Barbara, edin well documented in this encounter [facility] Work Phone: 09-12-2024 Attending History and physical note H&P reviewed. The patient was examined and there are no changes to the H&P. Source Note - Reggie Aragon PA-C - 08/20/2024 10:30 AM EST Subjective Patient ID: Rocio Sandoval is a 78 y.o. male who presents for Follow-up (FOLLOW UP LUMBAR MRI, ONGOING TIGHT SHARP PAIN TO THE LEFT LEG THAT GOES FROM HIS LEFT HIP DOWN TO HIS TOES WITH TINGLING,HE HAS PAIN THAT HE STATES IS CONSTANT HE STATES HIS LEFT LEG IS WORSE AT NIGHT BUT THE GABAPENTIN SETTLES THE FEELING TO ALLOW HIM TO GET SOMEWHAT COMFORTABLE, HE ALSO HAS PAIN WITH SITTING, TRANSITIONING, HE NOTES THAT HIS LEFT LOWER LEG FEELS SWOLLEN, ).HE TAKES TYLENOL DAILY, HE AMBULATES WITH A CANE, PAIN SCORE 8/10, RACHEL=48% Glenny Rivers CMA 08/20/24 10:20 AM Patient is an 78-year-old male. He presents today for follow-up after undergoing an updated lumbar MRI. At this time, he continues to have left radiating leg pain that he rates an 8/10. This affects his ambulatory status. This affects his quality life. This affects his activities and affects his ability to do things he wants to do. Patient most recently underwent a left-sided L5-S1 transforaminal epidural steroid injection. This is done on 05/28/2024. Gave him 75 to 90% relief for about 6 weeks and then the pain returned. This injection was the most beneficial. Prior to that he underwent L4-5 epidural steroid injection. This was done on 03/28/2024. Gave him significant relief for a few days but nothing more significant than that. He is here today with left radiating leg pain and wonders what other options he has to try to get relief. At this time, he rates his discomfort an 8/10. The more he is up and active the worst it gets. He is is Tylenol and gabapentin. He uses 800 mg 3 times a day. He tolerates this well. No side effects. He takes this as prescribed. He does not require any refills. He is just here today to review the MRI and discuss options. Review of Systems Constitutional: Negative. HENT: Negative. Eyes: Negative. Respiratory: Negative. Cardiovascular: Negative. Gastrointestinal: Negative. Endocrine: Negative. Genitourinary: Negative. Musculoskeletal: Positive for arthralgias, back pain, gait problem and myalgias. Skin: Negative. Allergic/Immunologic: Negative. Neurological: Positive for weakness and numbness. Hematological: Negative. Psychiatric/Behavioral: Negative. Objective Physical Exam Constitutional: General: He is not in acute distress. Appearance: Normal appearance. He is not ill-appearing. HENT: Head: Normocephalic. Right Ear: External ear normal. Left Ear: External ear normal. Nose: Nose normal. Mouth/Throat: Pharynx: Oropharynx is clear. Eyes: Pupils: Pupils are equal, round, and reactive to light. Cardiovascular: Rate and Rhythm: Normal rate. Pulmonary: Effort: Pulmonary effort is normal. Musculoskeletal: General: Normal range of motion. Right shoulder: Normal. Left shoulder: Normal. Right elbow: Normal. Left elbow: Normal. Right wrist: Normal. Left wrist: Normal. Cervical back: Normal, normal range of motion and neck supple. Thoracic back: Normal. Lumbar back: Normal. Right hip: Normal. Left hip: Normal. Right knee: Normal. Left knee: Normal. Comments: Ambulating with a cane 5/5 lower extremity strength other than left hip flexion, ADF and EHL 4+ to 5 -/5 Skin: General: Skin is warm and dry. Neurological: General: No focal deficit present. Mental Status: He is alert and oriented to person, place, and time. Psychiatric: Mood and Affect: Mood normal. Behavior: Behavior normal. Thought Content: Thought content normal. Judgment: Judgment normal. MR lumbar spine wo IV contrast Status: Final result PACS Images Show images for MR lumbar spine wo IV contrast Signed by Signed Time Phone Pager Rocio Go MD 08/12/2024 14:57 [id number] Exam Information Status Exam Begun Exam Ended Final 08/11/2024 10:12 08/11/2024 11:11 Study Result Narrative & Impression Interpreted By: Rocio Go, STUDY: MR LUMBAR SPINE WO IV CONTRAST performed 08/11/2024 11:11 am INDICATION: Signs/Symptoms:LOWER BACK AND LEG PAIN. 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 ACCESSION NUMBER(S): [id number] ORDERING CLINICIAN: REGGIE ARAGON TECHNIQUE: Multiplanar multisequence MR imaging of the lumbar spine performed without intravenous contrast. Sagittal T1, T2, STIR, axial T1 and T2 weighted images of the lumbar spine were acquired. FINDINGS: Segmentation: 5 lumbar vertebral bodies are designated on this examination. Rudimentary S1-S2 disc. Conus: The lower thoracic cord appears unremarkable. The conus terminates at the level of the inferior endplate of L2. Cauda equina are unremarkable. Epidural fluid: None. Alignment: Mild rotatory levo scoliosis of the lumbar spine. Vertebral bodies: Lumbar vertebral body heights are grossly maintained with unchanged minimal chronic anterior wedging of L1. Marrow signal: L1 vertebral body hemangioma. Trace type 1 Modic endplate signal change at L4-L5 and potentially at L3-L4. No suspicious STIR hyperintensity/marrow edema. Nonspecific marrow heterogeneity may reflect an element of demineralization. Intervertebral discs: Moderate degenerative disc height loss at L2-L3 and clmr-vi-pyoqzrhv degenerative disc height loss at L3-L4 and L4-L5. Multilevel disc desiccation. Tiny scattered Schmorl's node deformities. Degenerative change: T12-L1: Mild facet arthropathy with ligamentum flavum hypertrophy. Tiny Schmorl's node deformities. Disc bulge with left subarticular/foraminal fissuring. Anterior predominant hypertrophic endplate spurring. There is mild vrxb-zblrltz-dfqm-right lateral recess narrowing with no substantial spinal canal stenosis. No significant neural foraminal narrowing. Findings appear similar to prior exam. L1-2: Mild facet arthropathy and ligamentum flavum hypertrophy. No significant posterior disc bulge and endplate spurring. No spinal canal stenosis. No neural foraminal narrowing. L2-3: Possible prior right hemilaminectomy. Mild facet arthropathy. There is suspected right facet synovial cyst components dorsal and external to the spinal canal and possibly within the hemilaminectomy bed (series 8, image 25, series 7, image 13). Ligamentum flavum hypertrophy. Disc bulge and hypertrophic endplate spurring, worse along the rightward aspect. No spinal canal stenosis. Mild pnbdh-zxkkafy-usko-left neural foraminal narrowing. Findings appear similar to prior exam. L3-4: Possible remote right hemilaminectomy. Mild bilateral facet arthropathy. Left ligamentum flavum hypertrophy. Disc bulge and hypertrophic endplate spurring. Slight narrowing of the fasux-iausvrv-qtea-left lateral recesses with no additional spinal canal stenosis. Mild bilateral neural foraminal narrowing. L4-5: Moderate facet arthropathy with ligamentum flavum hypertrophy. Moderate disc bulge with mild endplate spurring. There is a possible small superimposed left subarticular disc extrusion with caudal migration. There is yqla-csqgsgp-kgny-right lateral recess stenosis with possible compression of the descending left L5 nerve root (series 9, image 8). Moderate trefoil narrowing of the thecal sac/spinal canal stenosis. Moderate uohk-fkhpgmo-eehp-right neural foraminal narrowing with compression/impingement of the exiting left L4 nerve root. Findings appear similar to minimally worsened from comparison exam. L5-S1: Mild facet arthropathy. Minimal disc bulge and endplate spurring. Element of left lateral recess narrowing with no additional spinal canal stenosis. No substantial neural foraminal narrowing. Findings appear similar to prior exam. Soft tissues: Moderate fatty atrophy of the posterior paraspinal musculature. Incompletely visualized large exophytic cystic appearing lesion involving the left kidney. IMPRESSION: Similar MR appearance of the lumbar spine. Moderate spinal canal stenosis at L4-L5 with sxwz-nzdnowt-picx-right lateral recess narrowing and moderate ihza-ukredea-aerc-right neural foraminal narrowing with compression/impingement of the exiting left L4 nerve root. 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 Other orders - NPO Diet Except: Sips with meds; Effective now; Standing - Height and weight; Standing - Insert and maintain peripheral IV; Standing - Saline lock IV; Standing - POCT Glucose; Standing - Type And Screen; Standing - Inpatient consult to Respiratory Care; Standing - Adult diet Regular; Standing - Vital Signs; Standing - Notify physician - Standard Parameters; Standing - Continue IV fluids ordered pre-procedure; Standing - Prior to Discharge O2 Weaning; Standing - Pulse oximetry, continuous; Standing - Discharge patient; Standing - iohexol (OMNIPaque) 300 mg iodine/mL solution 6 mL - lidocaine PF (Xylocaine) 20 mg/mL (2 %) injection 120 mg - lidocaine PF (Xylocaine) 20 mg/mL (2 %) injection 10 mg - sodium chloride (PF) 0.9% solution 0.5 mL - dexAMETHasone (PF) (Decadron) injection 10 mg Patient is an 78-year-old male with the above-mentioned medical diagnoses following up today after undergoing an updated lumbar MRI scan. At this time, unfortunate, he is still having left radiating leg pain. This is affecting his ambulatory status. This is affecting his quality of life. This affecting his ability to do things he wants to do. At this time, he has previously trialed and failed all reasonable conservative treatments. We reviewed the MRI scan. Based on his MRI findings, his pain pattern and his failure to improve with conservative treatments I recommended to patient a left-sided L4-5 transforaminal epidural steroid injection to be done under fluoroscopy for both diagnostic and therapeutic purposes. Procedure was discussed. Risk and benefits were discussed. Medication was including vitamins for 1 week, ibuprofen for 24 hours and Xarelto for 3 days was discussed. He will follow-up 2 weeks after the injection for reevaluation. Call clinic sooner if necessary. In the meantime we will continue on gabapentin. OARRS reviewed. [facility] Work Phone: 09-12-2024 History and physical note H&P reviewed. The patient was examined and there are no changes to the H&P. Source Note - Reggie Aragon PA-C - 08/20/2024 10:30 AM EST Subjective Patient ID: Rocio Sandoval is a 78 y.o. male who presents for Follow-up (FOLLOW UP LUMBAR MRI, ONGOING TIGHT SHARP PAIN TO THE LEFT LEG THAT GOES FROM HIS LEFT HIP DOWN TO HIS TOES WITH TINGLING,HE HAS PAIN THAT HE STATES IS CONSTANT HE STATES HIS LEFT LEG IS WORSE AT NIGHT BUT THE GABAPENTIN SETTLES THE FEELING TO ALLOW HIM TO GET SOMEWHAT COMFORTABLE, HE ALSO HAS PAIN WITH SITTING, TRANSITIONING, HE NOTES THAT HIS LEFT LOWER LEG FEELS SWOLLEN, ).HE TAKES TYLENOL DAILY, HE AMBULATES WITH A CANE, PAIN SCORE 8/10, RACHEL=48% Glenyn Rivers, BORING MACHINE OPERATOR DOUBLE END 08/20/24 10:20 AM Patient is an 78-year-old male. He presents today for follow-up after undergoing an updated lumbar MRI. At this time, he continues to have left radiating leg pain that he rates an 8/10. This affects his ambulatory status. This affects his quality life. This affects his activities and affects his ability to do things he wants to do. Patient most recently underwent a left-sided L5-S1 transforaminal epidural steroid injection. This is done on 05/28/2024. Gave him 75 to 90% relief for about 6 weeks and then the pain returned. This injection was the most beneficial. Prior to that he underwent L4-5 epidural steroid injection. This was done on 03/28/2024. Gave him significant relief for a few days but nothing more significant than that. He is here today with left radiating leg pain and wonders what other options he has to try to get relief. At this time, he rates his discomfort an 8/10. The more he is up and active the worst it gets. He is is Tylenol and gabapentin. He uses 800 mg 3 times a day. He tolerates this well. No side effects. He takes this as prescribed. He does not require any refills. He is just here today to review the MRI and discuss options. Review of Systems Constitutional: Negative. HENT: Negative. Eyes: Negative. Respiratory: Negative. Cardiovascular: Negative. Gastrointestinal: Negative. Endocrine: Negative. Genitourinary: Negative. Musculoskeletal: Positive for arthralgias, back pain, gait problem and myalgias. Skin: Negative. Allergic/Immunologic: Negative. Neurological: Positive for weakness and numbness. Hematological: Negative. Psychiatric/Behavioral: Negative. Objective Physical Exam Constitutional: General: He is not in acute distress. Appearance: Normal appearance. He is not ill-appearing. HENT: Head: Normocephalic. Right Ear: External ear normal. Left Ear: External ear normal. Nose: Nose normal. Mouth/Throat: Pharynx: Oropharynx is clear. Eyes: Pupils: Pupils are equal, round, and reactive to light. Cardiovascular: Rate and Rhythm: Normal rate. Pulmonary: Effort: Pulmonary effort is normal. Musculoskeletal: General: Normal range of motion. Right shoulder: Normal. Left shoulder: Normal. Right elbow: Normal. Left elbow: Normal. Right wrist: Normal. Left wrist: Normal. Cervical back: Normal, normal range of motion and neck supple. Thoracic back: Normal. Lumbar back: Normal. Right hip: Normal. Left hip: Normal. Right knee: Normal. Left knee: Normal. Comments: Ambulating with a cane 5/5 lower extremity strength other than left hip flexion, ADF and EHL 4+ to 5 -/5 Skin: General: Skin is warm and dry. Neurological: General: No focal deficit present. Mental Status: He is alert and oriented to person, place, and time. Psychiatric: Mood and Affect: Mood normal. Behavior: Behavior normal. Thought Content: Thought content normal. Judgment: Judgment normal. MR lumbar spine wo IV contrast Status: Final result PACS Images Show images for MR lumbar spine wo IV contrast Signed by Signed Time Phone Pager Rocio Go MD 08/12/2024 14:57 [id number] Exam Information Status Exam Begun Exam Ended Final 08/11/2024 10:12 08/11/2024 11:11 Study Result Narrative & Impression Interpreted By: Rocio Go, STUDY: MR LUMBAR SPINE WO IV CONTRAST performed 08/11/2024 11:11 am INDICATION: Signs/Symptoms:LOWER BACK AND LEG PAIN. 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 ACCESSION NUMBER(S): [id number] ORDERING CLINICIAN: REGGIE ARAGON TECHNIQUE: Multiplanar multisequence MR imaging of the lumbar spine performed without intravenous contrast. Sagittal T1, T2, STIR, axial T1 and T2 weighted images of the lumbar spine were acquired. FINDINGS: Segmentation: 5 lumbar vertebral bodies are designated on this examination. Rudimentary S1-S2 disc. Conus: The lower thoracic cord appears unremarkable. The conus terminates at the level of the inferior endplate of L2. Cauda equina are unremarkable. Epidural fluid: None. Alignment: Mild rotatory levo scoliosis of the lumbar spine. Vertebral bodies: Lumbar vertebral body heights are grossly maintained with unchanged minimal chronic anterior wedging of L1. Marrow signal: L1 vertebral body hemangioma. Trace type 1 Modic endplate signal change at L4-L5 and potentially at L3-L4. No suspicious STIR hyperintensity/marrow edema. Nonspecific marrow heterogeneity may reflect an element of demineralization. Intervertebral discs: Moderate degenerative disc height loss at L2-L3 and uqaf-rp-eekdbjrm degenerative disc height loss at L3-L4 and L4-L5. Multilevel disc desiccation. Tiny scattered Schmorl's node deformities. Degenerative change: T12-L1: Mild facet arthropathy with ligamentum flavum hypertrophy. Tiny Schmorl's node deformities. Disc bulge with left subarticular/foraminal fissuring. Anterior predominant hypertrophic endplate spurring. There is mild imta-sxlxtlv-qjdc-right lateral recess narrowing with no substantial spinal canal stenosis. No significant neural foraminal narrowing. Findings appear similar to prior exam. L1-2: Mild facet arthropathy and ligamentum flavum hypertrophy. No significant posterior disc bulge and endplate spurring. No spinal canal stenosis. No neural foraminal narrowing. L2-3: Possible prior right hemilaminectomy. Mild facet arthropathy. There is suspected right facet synovial cyst components dorsal and external to the spinal canal and possibly within the hemilaminectomy bed (series 8, image 25, series 7, image 13). Ligamentum flavum hypertrophy. Disc bulge and hypertrophic endplate spurring, worse along the rightward aspect. No spinal canal stenosis. Mild jelgu-glquxdy-ulnp-left neural foraminal narrowing. Findings appear similar to prior exam. L3-4: Possible remote right hemilaminectomy. Mild bilateral facet arthropathy. Left ligamentum flavum hypertrophy. Disc bulge and hypertrophic endplate spurring. Slight narrowing of the yglml-awodyyk-hqyn-left lateral recesses with no additional spinal canal stenosis. Mild bilateral neural foraminal narrowing. L4-5: Moderate facet arthropathy with ligamentum flavum hypertrophy. Moderate disc bulge with mild endplate spurring. There is a possible small superimposed left subarticular disc extrusion with caudal migration. There is wwlk-iupthml-uqcp-right lateral recess stenosis with possible compression of the descending left L5 nerve root (series 9, image 8). Moderate trefoil narrowing of the thecal sac/spinal canal stenosis. Moderate sydw-idqqsgc-jqtd-right neural foraminal narrowing with compression/impingement of the exiting left L4 nerve root. Findings appear similar to minimally worsened from comparison exam. L5-S1: Mild facet arthropathy. Minimal disc bulge and endplate spurring. Element of left lateral recess narrowing with no additional spinal canal stenosis. No substantial neural foraminal narrowing. Findings appear similar to prior exam. Soft tissues: Moderate fatty atrophy of the posterior paraspinal musculature. Incompletely visualized large exophytic cystic appearing lesion involving the left kidney. IMPRESSION: Similar MR appearance of the lumbar spine. Moderate spinal canal stenosis at L4-L5 with nrzl-bnnygod-nxpv-right lateral recess narrowing and moderate qumr-ykzlinw-tycu-right neural foraminal narrowing with compression/impingement of the exiting left L4 nerve root. 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 Other orders - NPO Diet Except: Sips with meds; Effective now; Standing - Height and weight; Standing - Insert and maintain peripheral IV; Standing - Saline lock IV; Standing - POCT Glucose; Standing - Type And Screen; Standing - Inpatient consult to Respiratory Care; Standing - Adult diet Regular; Standing - Vital Signs; Standing - Notify physician - Standard Parameters; Standing - Continue IV fluids ordered pre-procedure; Standing - Prior to Discharge O2 Weaning; Standing - Pulse oximetry, continuous; Standing - Discharge patient; Standing - iohexol (OMNIPaque) 300 mg iodine/mL solution 6 mL - lidocaine PF (Xylocaine) 20 mg/mL (2 %) injection 120 mg - lidocaine PF (Xylocaine) 20 mg/mL (2 %) injection 10 mg - sodium chloride (PF) 0.9% solution 0.5 mL - dexAMETHasone (PF) (Decadron) injection 10 mg Patient is an 78-year-old male with the above-mentioned medical diagnoses following up today after undergoing an updated lumbar MRI scan. At this time, unfortunate, he is still having left radiating leg pain. This is affecting his ambulatory status. This is affecting his quality of life. This affecting his ability to do things he wants to do. At this time, he has previously trialed and failed all reasonable conservative treatments. We reviewed the MRI scan. Based on his MRI findings, his pain pattern and his failure to improve with conservative treatments I recommended to patient a left-sided L4-5 transforaminal epidural steroid injection to be done under fluoroscopy for both diagnostic and therapeutic purposes. Procedure was discussed. Risk and benefits were discussed. Medication was including vitamins for 1 week, ibuprofen for 24 hours and Xarelto for 3 days was discussed. He will follow-up 2 weeks after the injection for reevaluation. Call clinic sooner if necessary. In the meantime we will continue on gabapentin. OARRS reviewed. documented in this encounter [facility] Work Phone: 09-12-2024 History and physical note H&P reviewed. The patient was examined and there are no changes to the H&P. Source Note - Reggie Aragon PA-C - 08/20/2024 10:30 AM EST Subjective Patient ID: Rocio Sandoval is a 78 y.o. male who presents for Follow-up (FOLLOW UP LUMBAR MRI, ONGOING TIGHT SHARP PAIN TO THE LEFT LEG THAT GOES FROM HIS LEFT HIP DOWN TO HIS TOES WITH TINGLING,HE HAS PAIN THAT HE STATES IS CONSTANT HE STATES HIS LEFT LEG IS WORSE AT NIGHT BUT THE GABAPENTIN SETTLES THE FEELING TO ALLOW HIM TO GET SOMEWHAT COMFORTABLE, HE ALSO HAS PAIN WITH SITTING, TRANSITIONING, HE NOTES THAT HIS LEFT LOWER LEG FEELS SWOLLEN, ).HE TAKES TYLENOL DAILY, HE AMBULATES WITH A CANE, PAIN SCORE 8/10, RACHEL=48% Glenny Rivers, DOREEN 08/20/24 10:20 AM Patient is an 78-year-old male. He presents today for follow-up after undergoing an updated lumbar MRI. At this time, he continues to have left radiating leg pain that he rates an 8/10. This affects his ambulatory status. This affects his quality life. This affects his activities and affects his ability to do things he wants to do. Patient most recently underwent a left-sided L5-S1 transforaminal epidural steroid injection. This is done on 05/28/2024. Gave him 75 to 90% relief for about 6 weeks and then the pain returned. This injection was the most beneficial. Prior to that he underwent L4-5 epidural steroid injection. This was done on 03/28/2024. Gave him significant relief for a few days but nothing more significant than that. He is here today with left radiating leg pain and wonders what other options he has to try to get relief. At this time, he rates his discomfort an 8/10. The more he is up and active the worst it gets. He is is Tylenol and gabapentin. He uses 800 mg 3 times a day. He tolerates this well. No side effects. He takes this as prescribed. He does not require any refills. He is just here today to review the MRI and discuss options. Review of Systems Constitutional: Negative. HENT: Negative. Eyes: Negative. Respiratory: Negative. Cardiovascular: Negative. Gastrointestinal: Negative. Endocrine: Negative. Genitourinary: Negative. Musculoskeletal: Positive for arthralgias, back pain, gait problem and myalgias. Skin: Negative. Allergic/Immunologic: Negative. Neurological: Positive for weakness and numbness. Hematological: Negative. Psychiatric/Behavioral: Negative. Objective Physical Exam Constitutional: General: He is not in acute distress. Appearance: Normal appearance. He is not ill-appearing. HENT: Head: Normocephalic. Right Ear: External ear normal. Left Ear: External ear normal. Nose: Nose normal. Mouth/Throat: Pharynx: Oropharynx is clear. Eyes: Pupils: Pupils are equal, round, and reactive to light. Cardiovascular: Rate and Rhythm: Normal rate. Pulmonary: Effort: Pulmonary effort is normal. Musculoskeletal: General: Normal range of motion. Right shoulder: Normal. Left shoulder: Normal. Right elbow: Normal. Left elbow: Normal. Right wrist: Normal. Left wrist: Normal. Cervical back: Normal, normal range of motion and neck supple. Thoracic back: Normal. Lumbar back: Normal. Right hip: Normal. Left hip: Normal. Right knee: Normal. Left knee: Normal. Comments: Ambulating with a cane 5/5 lower extremity strength other than left hip flexion, ADF and EHL 4+ to 5 -/5 Skin: General: Skin is warm and dry. Neurological: General: No focal deficit present. Mental Status: He is alert and oriented to person, place, and time. Psychiatric: Mood and Affect: Mood normal. Behavior: Behavior normal. Thought Content: Thought content normal. Judgment: Judgment normal. MR lumbar spine wo IV contrast Status: Final result PACS Images Show images for MR lumbar spine wo IV contrast Signed by Signed Time Phone Pager Rocio Go MD 08/12/2024 14:57 [id number] Exam Information Status Exam Begun Exam Ended Final 08/11/2024 10:12 08/11/2024 11:11 Study Result Narrative & Impression Interpreted By: Rocio Go, STUDY: MR LUMBAR SPINE WO IV CONTRAST performed 08/11/2024 11:11 am INDICATION: Signs/Symptoms:LOWER BACK AND LEG PAIN. 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 ACCESSION NUMBER(S): [id number] ORDERING CLINICIAN: REGGIE ARAGON TECHNIQUE: Multiplanar multisequence MR imaging of the lumbar spine performed without intravenous contrast. Sagittal T1, T2, STIR, axial T1 and T2 weighted images of the lumbar spine were acquired. FINDINGS: Segmentation: 5 lumbar vertebral bodies are designated on this examination. Rudimentary S1-S2 disc. Conus: The lower thoracic cord appears unremarkable. The conus terminates at the level of the inferior endplate of L2. Cauda equina are unremarkable. Epidural fluid: None. Alignment: Mild rotatory levo scoliosis of the lumbar spine. Vertebral bodies: Lumbar vertebral body heights are grossly maintained with unchanged minimal chronic anterior wedging of L1. Marrow signal: L1 vertebral body hemangioma. Trace type 1 Modic endplate signal change at L4-L5 and potentially at L3-L4. No suspicious STIR hyperintensity/marrow edema. Nonspecific marrow heterogeneity may reflect an element of demineralization. Intervertebral discs: Moderate degenerative disc height loss at L2-L3 and hxmg-xm-abkhiodq degenerative disc height loss at L3-L4 and L4-L5. Multilevel disc desiccation. Tiny scattered Schmorl's node deformities. Degenerative change: T12-L1: Mild facet arthropathy with ligamentum flavum hypertrophy. Tiny Schmorl's node deformities. Disc bulge with left subarticular/foraminal fissuring. Anterior predominant hypertrophic endplate spurring. There is mild mhbn-trqotvm-kjcb-right lateral recess narrowing with no substantial spinal canal stenosis. No significant neural foraminal narrowing. Findings appear similar to prior exam. L1-2: Mild facet arthropathy and ligamentum flavum hypertrophy. No significant posterior disc bulge and endplate spurring. No spinal canal stenosis. No neural foraminal narrowing. L2-3: Possible prior right hemilaminectomy. Mild facet arthropathy. There is suspected right facet synovial cyst components dorsal and external to the spinal canal and possibly within the hemilaminectomy bed (series 8, image 25, series 7, image 13). Ligamentum flavum hypertrophy. Disc bulge and hypertrophic endplate spurring, worse along the rightward aspect. No spinal canal stenosis. Mild ebbaq-pjkxrkj-gfeq-left neural foraminal narrowing. Findings appear similar to prior exam. L3-4: Possible remote right hemilaminectomy. Mild bilateral facet arthropathy. Left ligamentum flavum hypertrophy. Disc bulge and hypertrophic endplate spurring. Slight narrowing of the hikcf-tzdszoq-prxg-left lateral recesses with no additional spinal canal stenosis. Mild bilateral neural foraminal narrowing. L4-5: Moderate facet arthropathy with ligamentum flavum hypertrophy. Moderate disc bulge with mild endplate spurring. There is a possible small superimposed left subarticular disc extrusion with caudal migration. There is wrnc-hdsbolh-cvqw-right lateral recess stenosis with possible compression of the descending left L5 nerve root (series 9, image 8). Moderate trefoil narrowing of the thecal sac/spinal canal stenosis. Moderate uqig-flbdpho-krhc-right neural foraminal narrowing with compression/impingement of the exiting left L4 nerve root. Findings appear similar to minimally worsened from comparison exam. L5-S1: Mild facet arthropathy. Minimal disc bulge and endplate spurring. Element of left lateral recess narrowing with no additional spinal canal stenosis. No substantial neural foraminal narrowing. Findings appear similar to prior exam. Soft tissues: Moderate fatty atrophy of the posterior paraspinal musculature. Incompletely visualized large exophytic cystic appearing lesion involving the left kidney. IMPRESSION: Similar MR appearance of the lumbar spine. Moderate spinal canal stenosis at L4-L5 with yzlw-gbxdyhn-tshj-right lateral recess narrowing and moderate ylbt-lzbnpon-vfwu-right neural foraminal narrowing with compression/impingement of the exiting left L4 nerve root. MACRO: None Signed by: Rocio Go 08/12/2024 2:57 PM Dictation workstation: [id number] Assessment/Plan Diagnoses and all orders for this visit: Lumbar radiculopathy - Transforaminal; Future - FL pain management; Future 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 stenosis 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 Other orders - NPO Diet Except: Sips with meds; Effective now; Standing - Height and weight; Standing - Insert and maintain peripheral IV; Standing - Saline lock IV; Standing - POCT Glucose; Standing - Type And Screen; Standing - Inpatient consult to Respiratory Care; Standing - Adult diet Regular; Standing - Vital Signs; Standing - Notify physician - Standard Parameters; Standing - Continue IV fluids ordered pre-procedure; Standing - Prior to Discharge O2 Weaning; Standing - Pulse oximetry, continuous; Standing - Discharge patient; Standing - iohexol (OMNIPaque) 300 mg iodine/mL solution 6 mL - lidocaine PF (Xylocaine) 20 mg/mL (2 %) injection 120 mg - lidocaine PF (Xylocaine) 20 mg/mL (2 %) injection 10 mg - sodium chloride (PF) 0.9% solution 0.5 mL - dexAMETHasone (PF) (Decadron) injection 10 mg Patient is an 78-year-old male with the above-mentioned medical diagnoses following up today after undergoing an updated lumbar MRI scan. At this time, unfortunate, he is still having left radiating leg pain. This is affecting his ambulatory status. This is affecting his quality of life. This affecting his ability to do things he wants to do. At this time, he has previously trialed and failed all reasonable conservative treatments. We reviewed the MRI scan. Based on his MRI findings, his pain pattern and his failure to improve with conservative treatments I recommended to patient a left-sided L4-5 transforaminal epidural steroid injection to be done under fluoroscopy for both diagnostic and therapeutic purposes. Procedure was discussed. Risk and benefits were discussed. Medication was including vitamins for 1 week, ibuprofen for 24 hours and Xarelto for 3 days was discussed. He will follow-up 2 weeks after the injection for reevaluation. Call clinic sooner if necessary. In the meantime we will continue on gabapentin. OARRS reviewed. documented in this encounter [facility] Work Phone: 09-12-2024 Note Table formatting fro m the original result was not included. Procedure Transforaminal Indication Lumbar radiculopathy Medications lidocaine PF (Xylocaine) 5 mg/mL (0.5 %) injection 1 mL dexAMETHasone (PF) (Decadron) injection 10 mg lidocaine PF (Xylocaine) 20 mg/mL (2 %) injection 3 mL iohexol (OMNIPaque) 300 mg iodine/mL solution 2 mL (Totals for administrations occurring from 0948 to 1004 on 09/12/24) Preprocedure A history and physical has been performed, and patient medication allergies have been reviewed. The patient's tolerance of previous anesthesia has been reviewed. The risks and benefits of the procedure and the sedation options and risks were discussed with the patient. All questions were answered and informed consent obtained. Details of the Procedure Diagnosis: M54.16, lumbar radiculopathy Procedure: Left L4/5 lumbar transforaminal epidural steroid injections under fluoroscopic guidance Anesthesia: Local Complications: None After informed consent was obtained, the patient was brought to the procedure suite and placed in the prone position. Pulse oximetry and blood pressure were monitored throughout. The low back area was prepped and draped in the usual sterile fashion. Using fluoroscopic guidance, the skin and subcutaneous tissue overlying the needle trajectory of the neuroforamina were anesthetized with 2.0% lidocaine. The 22-gauge sprotte needle was then advanced under fluoroscopic guidance into the foramina. Needle tip positions were confirmed in at least two views. Injection of contrast revealed appropriate spread of the dye without vascular uptake. Next, 2.0 mL of 0.5% lidocaine and 10 mg dexamethasone were injected in divided doses through the needle tip. The needle were removed and the patient was then transferred to the recovery room in stable condition. The patient tolerated the procedure well. There were no apparent 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s. FOLLOW UP: The patient will update us on their response to this procedure, and agrees to continue currently prescribed/recommended therapies. Procedure Provider James Alves DO Procedure Location [facility] [place] [address] [facility] [id number] Referring Provider Reggie Aragon PA-C [address] [place], [place] [id number] [address] IMAGING 09-12-2024 Note Table formatting fro m the original result was not included. Procedure Transforaminal Indication Lumbar radiculopathy Medications lidocaine PF (Xylocaine) 5 mg/mL (0.5 %) injection 1 mL dexAMETHasone (PF) (Decadron) injection 10 mg lidocaine PF (Xylocaine) 20 mg/mL (2 %) injection 3 mL iohexol (OMNIPaque) 300 mg iodine/mL solution 2 mL (Totals for administrations occurring from 0948 to 1004 on 09/12/24) Preprocedure A history and physical has been performed, and patient medication allergies have been reviewed. The patient's tolerance of previous anesthesia has been reviewed. The risks and benefits of the procedure and the sedation options and risks were discussed with the patient. All questions were answered and informed consent obtained. Details of the Procedure Diagnosis: M54.16, lumbar radiculopathy Procedure: Left L4/5 lumbar transforaminal epidural steroid injections under fluoroscopic guidance Anesthesia: Local Complications: None After informed consent was obtained, the patient was brought to the procedure suite and placed in the prone position. Pulse oximetry and blood pressure were monitored throughout. The low back area was prepped and draped in the usual sterile fashion. Using fluoroscopic guidance, the skin and subcutaneous tissue overlying the needle trajectory of the neuroforamina were anesthetized with 2.0% lidocaine. The 22-gauge sprotte needle was then advanced under fluoroscopic guidance into the foramina. Needle tip positions were confirmed in at least two views. Injection of contrast revealed appropriate spread of the dye without vascular uptake. Next, 2.0 mL of 0.5% lidocaine and 10 mg dexamethasone were injected in divided doses through the needle tip. The needle were removed and the patient was then transferred to the recovery room in stable condition. The patient tolerated the procedure well. There were no apparent 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s. FOLLOW UP: The patient will update us on their response to this procedure, and agrees to continue currently prescribed/recommended therapies. Procedure Provider James Alves DO Procedure Location [facility] [place] [facility] [place] [address] Referring Provider Reggie Aragon PA-C [address] [place] [address] [place] [address] IMAGING 09-10-2024 Instructions Herman Naidu MD - 09/10/2024 12:04 PM EDT Labs on the way out. Ultrasound in 11/2024 at least 1-2 weeks before next visit with us. Let me know sooner in case of change in symptoms (significant fatigue, racing heart, tremors, change in bowel movements, feeling colder/warmer, remarkable weight change,..). Let me know sooner if there is change in neck symptoms like enlarging neck lump, new/worsening difficulty swallowing, voice changes, choking/pressure sensation. documented in this encounter [facility] 09-10-2024 History of Present illness Narrative Images from the original note were not included. Reason for visit/chief complaint: hyperthyroidism. Date: 09/10/2024 Referring Provider: No ref. provider found Primary Care Provider: Tye Anne MD HPI: Interval hx/subjective: 09/10/2024: Has some fatigue. No palpitations, no tremors unless BG goes down. Bms are normal for the most part. No heat/cold intolerance. Weight has been stable.has dry skin, no hair loss. No neck lumps/pain, dysphagia, choking on food. Recent voice change for ~a couple of months, on/off, no neck pressure sensation. No eye symptoms apart from L eye sometimes watery. Takes MVI and eye MVI (the latter was stopped ~2 weeks ago). No biotin/B-complex. No steroids. Used to take TRT, last used in 06/2024. Background from the initial consult note from 07/16/2024: Mr. Sandoval is a 79 y.o. male with hx of a-fib (dx 2020: cardioversion, amiodarone therapy~ 2 years-discontinued 05/25 and started metoprolol, ablation, PM, Xarelto), BPH, carpal tunnel, kidney stones, depression, CAD, PAD, HTN, GERD, HLD, ALISHA, OA, type 2 DM, venous insufficiency who was referred here by PCP for hyperthyroidism. Thyrotoxicosis on lab evaluation was initially found in 05/25 with suppressed TSH and elevated free T4. Repeat lab pattern found in June 2024 and patient was subsequently referred to endocrinology.Patient denies previous history of any type of thyroid problems. TSH levels in April 2023 and October 2023 were within normal limits. Patient has taken amiodarone since approximately 2021 for atrial fibrillation. This was stopped by his artist blacksmith in May of 2024 (started metoprolol); there is notation of the suppressed TSH by artist blacksmith note (Dr. Jimenez, S). Patient's most recent echo in April of 2024 revealed EF 42%; prior 06/21 echo with EF 60-65%. [id number] med stress echo revealed EF estimate 39% without inducible ischemia. Plan is to upgrade patient's pacemaker and have AV obinna ablation on 08/13/24 per review of cardiology note . He takes no thyroid medications. No biotin supplements. Mr. Sandoval endorses fatigue, dry skin, tremors, and diarrhea/hyperdefecation. No constipation, hair loss, muscle weakness/pain, palpitations, heat intolerance, excessive anxiety/nervousness, or weight change. He has red/dry eyes. No bulging eyes or double vision. In regards to mechanical/obstructive symptoms, He endorses neck pain, dysphagia. No neck lump/swelling, neck pain, choking on food, voice changes. He reports no pressure/choking sensation but does have occ globus sensation. Risk factors: -Hx of autoimmune diseases: none -Family hx of thyroid disease/cancer: daughter--thinks overactive thyroid; granddaughter with thyroid nodule possibly; no cancer known -Hx of thyroid surgery: no -Hx of high risk/interfering medications: amiodarone treatment since ~ 2021--amiodarone was stopped 11/24; no lithium; no recent steroids -Recent URI/ no: / NA -Hx of head/neck irradiation: no -Smoking: no Review of Systems: as per HPI Medical History: Past Medical History: Diagnosis Date A-fib (HCC) Acquired hammer toe Allergy Arthritis Back pain Cataract removed Diabetes mellitus, type 2 (HCC) Dizzy spells Foot cramps Foot pain, bilateral Fracture of phalanx of toe Frequent urination GERD (gastroesophageal reflux disease) Hiatal hernia High blood pressure High cholesterol History of stress test 03/08/2018 scheduled at [facility] Hyperthyroidism 05/2024 Kidney stones 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 Nephrolithiasis passed Night sweats Numbness in both hands Obesity OM (onychomycosis) PAD (peripheral artery disease) ([facility]) Peripheral neuropathy numbness fingers, tingling and some numbness left leg and foot Plantar fasciitis right Pneumonia in infectious disease PONV (postoperative nausea and vomiting) Radiculopathy of lumbar region Ringing in ears Shortness of breath on exertion Sinus pain Swollen feet Tinea pedis Tired feet Urinary urgency Venous insufficiency of both lower extremities Vision problem Surgical History: Past Surgical History: Procedure Laterality Date ABLATION WITH PHENOL BACK SURGERY 1960 LUMBAR BURSECTOMY ELBOW Left 01/05/2023 Procedure: Left elbow bursectomy; Surgeon: Elías Hsu MD; Location: Main OR; Service: Orthopedic CARDIAC CATHETERIZATION N/A CARDIAC PACEMAKER PLACEMENT CATARACT EXT/ECCE Right Catheter ablation N/A COLONOSCOPY X 3 CT COLONOSCOPY 07/16/2022 CT COLONOSCOPY ESOPHAGOGASTRODUODENOSCOPY HERNIA REPAIR Right INGUINAL HERNIA REPAIR INGUINAL OPEN N/A LAMINECTOMY DECOMP LUMBAR MULTI LEVEL Right 03/13/2018 Procedure: RIGHT L2-L5 LAMINECTOMY DECOMPRESSION; Surgeon: Kailey Hilton MD; Location: [facility] Main OR; Service: Orthopedic LUMBAR EPIDURAL INJECTION N/A RETINAL DETACHMENT SURGERY TOTAL KNEE ARTHROPLASTY Left 06/2016 THYROID BIOPSY WITH FNA 08/28/2024 THYROID BIOPSY WITH FNA 08/28/2024 Herman Naidu MD ULTRASOUND Family History: Family History Problem Relation Age of Onset Stroke Mother 48 cause of Heart attack Brother Heart disease Brother 60 Diabetes Brother Heart failure Brother Kidney failure Brother Diabetes Sister No Known Problems Father Surgical 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s Neg Hx Anesthesia problems Neg Hx Clotting disorder Neg Hx Deep vein thrombosis Neg Hx Pulmonary embolism Neg Hx Social History: Social History Socioeconomic History Marital status: Tobacco Use Smoking status: Never Smokeless tobacco: Never Vaping Use Vaping status: Never Used Substance and Sexual Activity Alcohol use: No Alcohol/week: 0.0 standard drinks of alcohol Drug use: No Allergies: Allergies Allergen Reactions Morphine Nausea and vomiting He was 15 when he had a reaction. It was actually anesthetics. No Known Allergies Current Medications: Current Outpatient Medications Medication Sig Dispense Refill acetaminophen (TYLENOL ORAL) Take 650 mg by mouth. ammonium lactate (AMLACTIN) 12 % cream Apply topically 2 (two) times a day . 385 g 0 atorvastatin (LIPITOR) 40 MG tablet Take 1 (one) tablet (40 mg total) by mouth nightly . blood sugar diagnostic (glucose blood) strips by Miscellaneous route . empagliflozin (Jardiance) 25 mg Tab Take by mouth . fexofenadine (SULAIMAN) 180 MG tablet TAKE 1 TABLET (180 MG) BY MOUTH ONCE DAILY. furosemide (LASIX) 20 MG tablet Take 1 (one) tablet (20 mg total) by mouth every other day . gabapentin (NEURONTIN) 400 MG capsule Take 1 (one) capsule (400 mg total) by mouth 3 (three) times a day . MELATONIN ORAL Take by mouth . metFORMIN (GLUCOPHAGE-XR) 750 MG 24 hr tablet Take 1 (one) tablet (750 mg total) by mouth 2 (two) times a day Take 1 tab bid . mupirocin (BACTROBAN) 2 % ointment Apply topically 3 (three) times a day . 22 g 0 rivaroxaban (XARELTO) 20 mg Tab Take 1 (one) tablet (20 mg total) by mouth daily On hold . tamsulosin (FLOMAX) 0.4 mg capsule every morning before breakfast . therapeutic multivitamin (THERAGRAN) tablet Take 1 (one) tablet by mouth daily . amiodarone (CORDARONE) 200 MG tablet Take 1 (one) tablet (200 mg total) by mouth at bedtime . (Patient not taking: Reported on 07/16/2024 .) omeprazole (PRILOSEC) 40 MG capsule (Patient not taking: Reported on 07/16/2024 .) testosterone cypionate (DEPOTESTOTERONE CYPIONATE) 100 mg/mL injection Inject 1 mL (100 mg total) into the shoulder, thigh, or buttocks every 14 (fourteen) days . (Patient not taking: Reported on 09/10/2024 .) traZODone (DESYREL) 50 MG tablet TAKE 1 2 (ONE HALF) TABLET BY MOUTH ONCE DAILY AT BEDTIME (Patient not taking: Reported on 05/26/2024 .) vit B cplxC 07-auzsqox-uxq-Q10 (Brain Ifqgd-RPB-Zy Q10) 140-10-10 mg Tab Take by mouth . (Patient not taking: Reported on 09/10/2024 .) vit C,H-Ue-tzfft-lutein-zeaxan (Eye Health Vitamin-Mineral) 250-90-10-1 mg cap Take by mouth . (Patient not taking: Reported on 09/10/2024 .) No current facility-administered medications for this visit. Physical Exam: Vitals: BP 128/72 Pulse 64 Wt 101.6 kg (224 lb) BMI 28.76 kg/m , Body mass index is 28.76 kg/m ., Wt Readings from Last 3 Encounters: 09/10/24 101.6 kg (224 lb) 07/16/24 106.3 kg (234 lb 6.4 oz) 09/06/23 98.9 kg (218 lb) General/Constitutional: , well-developed and in no distress Eyes: no remarkable proptosis Neck: no thyroid nodules or enlarged Lns appreciated Cardiovascular: regular rhythm Pulmonary/Chest: effort normal Neurological: alert and oriented, no focal deficits, mild tremors in hands/fingers, DTRs normal Skin: warm Psychiatric: appropriate affect Lab/Imaging Data: Lab Results Component Value Date WBC 8.15 07/20/2024 HGB 13.8 07/20/2024 HCT 45.1 07/20/2024 MCV 94.2 07/20/2024 PLT 276 07/20/2024 Lab Results Component Value Date GLUCOSE 98 07/20/2024 NA 143 07/20/2024 K 4.5 07/20/2024 CL 107 07/20/2024 BUN 16 07/20/2024 CREATININE 0.89 07/20/2024 Lab Results Component Value Date ALT 9 07/20/2024 AST 17 07/20/2024 ALKPHOS 85 07/20/2024 BILITOT 0.4 07/20/2024 No results found for: TSH, [id number], THYROIDAB Lab Results Component Value Date CALCIUM 9.5 07/20/2024 No results found for: LDLCALC, CHOL, HDL, TRIG, CHOLHDL 04/25/23: tsh 3.19 10/23/23: tsh 2.16 05/13/24: TSH 0.03 (0.44-3.98), FT 4 1.45 (0.61-1.12) 06/12/24: TSH 0.02, FT 4 1.67 (0.61-1.12), creat 1.05, gluc 103, egfr 72, lft unremarkable, wbc 7.1, plt 274, normal differential Thyroid/neck US 07/20/2024: COMPARISON: None. FINDINGS: Right thyroid 5.0 x 2.1 x 1.9 cm. Calcified nodule superior right gland measures up to 1.7 cm. Left thyroid 4.6 x 1.8 x 1.6 cm. No mass. Thyroid isthmus is 0.4 cm in thickness. No hyperemia identified with color Doppler. Borderline prominent lymph nodes are seen in the left neck level 4, measuring up to 8 mm in short axis with compressed fatty kostas. IMPRESSION: 1. Peripherally calcified thyroid nodule in the right hemithyroid. Consider ultrasound-guided fine-needle aspiration as this is TIRADS 4. 2. No hyperemia of the thyroid. 3. Mildly enlarged lymph nodes in the left neck at level 4 region. Consider ultrasound follow-up in 3-6 months time. Pathology 08/28/2024: A. Thyroid, Right Superior, fine needle aspiration (FNA) biopsy: BENIGN ([place] Category II) Consistent with a benign follicular nodule (includes adenomatoid nodule, colloid nodule, etc.). Latest Reference Range & Units 07/16/24 11:25 08/08/24 10:38 T3, Total 76 - 181 ng/dL 92 67 (L) T4 (Thyroxine), Total 4.9 - 10.5 mcg/dL 6.9 6.2 T4, Free 0.8 - 1.8 ng/dL 1.5 1.2 TSH 0.40 - 4.50 mIU/L 0.07 (L) 2.57 Assessment and plan: Mr. Sandoval is a 79 y.o. male with hx of of a-fib (dx 2020: cardioversion, amiodarone therapy~ 2 years-discontinued 05/25 and started metoprolol, ablation, PM, Xarelto), BPH, carpal tunnel, kidney stones, depression, CAD, PAD, HTN, GERD, HLD, ALISHA, OA, type 2 DM, venous insufficiency, low testosterone (on testerone injections) who was referred here by PCP for hyperthyroidism. Mr. Sandoval has taken amiodarone for a-fib from 2021-05/25. The amiodarone was stopped by cardiology in May of 2024 after TSH was found to be suppressed with elevated FT4. Patient's cardiac evaluation/echo in 04/24 showed persistent A-fib with a new decline in EF. Patient is planned to undergo ablation and PM upgrade in August of 2024. Repeat thyroid levels in June of 2024 showed persistent suppressed TSH and elevated FT4. Patient has no known prior thyroid abnormalities. 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 We did discuss additional possible causes including Graves disease, toxic nodule or thyroiditis. -Today will check TSH, FT4, T3, FT3 and TSI, TRAB -thyroid ultrasound (neck and soft tissue) ordered -If patient's antibodies for Graves' disease are neg, a thyroid uptake and scan would be helpful to further delineate the cause however patient had a nuclear medicine study 06/09/24 so we would not be able to do this for at least another month or so. -We discussed treatment options would depend upon etiology--if AIT, it can be difficult to differentiate between type 1 and type 2 or patient may have mixed AIT. Treatment for both types may be indicated especially in light of current cardiac dysfunction. Will follow-up with patient regarding treatment recommendations once we have additional information. 09/10/2024: Repeat labs in 07/2024 showed improvement in TFTs and in 08/2024 showed normalization of TFTs with mildly low T3. This can be AIT2 which is resolving now. We need to monitor for possible hypothyroidism. Repeat TFTs now and will probably yadira to repeat periodically in the next few months. Patient had US in 07/2024 reporting R sided 1.7 cm nodule with peripheral calcification, which was FNAd in 08/2024 and came back benign. During FNA, I believe there is also another 1.5 cm isoechoic nodule in R inferior lobe which was not FNAd. US also reported 2 L sided lymph nodes ~1 cm that need monitoring; repeat US in ~6 months. He should let us know sooner in case of change in symptoms. Uses MyChart. Return in about 4 months (around 12/30/2024) for thyroid f/u. Time spent reviewing chart, during the encounter, putting orders and coordinating care on the encounter day is 35 minutes. Herman Naidu MD Endocrinology documented in this encounter [facility] 09-10-2024 Note Reason for visit/chi ef complaint: hyperthyroidism. Date: 09/10/2024 Referring Provider: No ref. provider found Primary Care Provider: Tye Anne MD HPI: Interval hx/subjective: 09/10/2024: Has some fatigue. No palpitations, no tremors unless BG goes down. Bms are normal for the most part. No heat/cold intolerance. Weight has been stable.has dry skin, no hair loss. No neck lumps/pain, dysphagia, choking on food. Recent voice change for ~a couple of months, on/off, no neck pressure sensation. No eye symptoms apart from L eye sometimes watery. Takes MVI and eye MVI (the latter was stopped ~2 weeks ago). No biotin/B-complex. No steroids. Used to take TRT, last used in 06/2024. Background from the initial consult note from 07/16/2024: Mr. Sandoval is a 79 y.o. male with hx of a-fib (dx 2020: cardioversion, amiodarone therapy~ 2 years-discontinued 05/25 and started metoprolol, ablation, PM, Xarelto), BPH, carpal tunnel, kidney stones, depression, CAD, PAD, HTN, GERD, HLD, ALISHA, OA, type 2 DM, venous insufficiency who was referred here by PCP for hyperthyroidism. Thyrotoxicosis on lab evaluation was initially found in 05/25 with suppressed TSH and elevated free T4. Repeat lab pattern found in June 2024 and patient was subsequently referred to endocrinology.Patient denies previous history of any type of thyroid problems. TSH levels in April 2023 and October 2023 were within normal limits. Patient has taken amiodarone since approximately 2021 for atrial fibrillation. This was stopped by his artist blacksmith in May of 2024 (started metoprolol); there is notation of the suppressed TSH by artist blacksmith note (Dr. Jimenez S). Patient's most recent echo in April of 2024 revealed EF 42%; prior 06/21 echo with EF 60-65%. [id number] med stress echo revealed EF estimate 39% without inducible ischemia. Plan is to upgrade patient's pacemaker and have AV obinna ablation on 08/13/24 per review of cardiology note . He takes no thyroid medications. No biotin supplements. Mr. Sandoval endorses fatigue, dry skin, tremors, and diarrhea/hyperdefecation. No constipation, hair loss, muscle weakness/pain, palpitations, heat intolerance, excessive anxiety/nervousness, or weight change. He has red/dry eyes. No bulging eyes or double vision. In regards to mechanical/obstructive symptoms, He endorses neck pain, dysphagia. No neck lump/swelling, neck pain, choking on food, voice changes. He reports no pressure/choking sensation but does have occ globus sensation. Risk factors: -Hx of autoimmune diseases: none -Family hx of thyroid disease/cancer: daughter--thinks overactive thyroid; granddaughter with thyroid nodule possibly; no cancer known -Hx of thyroid surgery: no -Hx of high risk/interfering medications: amiodarone treatment since ~ 2021--amiodarone was stopped 05/25; no lithium; no recent steroids -Recent URI/ no: / NA -Hx of head/neck irradiation: no -Smoking: no Review of Systems: as per HPI Medical History: Past Medical History: Diagnosis Date A-fib (HCC) Acquired hammer toe Allergy Arthritis Back pain Cataract removed Diabetes mellitus, type 2 (HCC) Dizzy spells Foot cramps Foot pain, bilateral Fracture of phalanx of toe Frequent urination GERD (gastroesophageal reflux disease) Hiatal hernia High blood pressure High cholesterol History of stress test 03/08/2018 scheduled at [facility] Hyperthyroidism 05/2024 Kidney stones 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 Nephrolithiasis passed Night sweats Numbness in both hands Obesity OM (onychomycosis) PAD (peripheral artery disease) (HCC) Peripheral neuropathy numbness fingers, tingling and some numbness left leg and foot Plantar fasciitis right Pneumonia in infectious disease PONV (postoperative nausea and vomiting) Radiculopathy of lumbar region Ringing in ears Shortness of breath on exertion Sinus pain Swollen feet Tinea pedis Tired feet Urinary urgency Venous insufficiency of both lower extremities Vision problem Surgical History: Past Surgical History: Procedure Laterality Date ABLATION WITH PHENOL BACK SURGERY 1960 LUMBAR BURSECTOMY ELBOW Left 01/05/2023 Procedure: Left elbow bursectomy; Surgeon: Elías Hsu MD; Location: Main OR; Service: Orthopedic CARDIAC CATHETERIZATION N/A CARDIAC PACEMAKER PLACEMENT CATARACT EXT/ECCE Right Catheter ablation N/A COLONOSCOPY X 3 CT COLONOSCOPY 07/16/2022 CT COLONOSCOPY ESOPHAGOGASTRODUODENOSCOPY HERNIA REPAIR Right INGUINAL HERNIA REPAIR INGUINAL OPEN N/A LAMINECTOMY DECOMP LUMBAR MULTI LEVEL Right 03/13/2018 Procedure: RIGHT L2-L5 LAMINECTOMY DECOMPRESSION; Surgeon: Kailey Hilton MD; Location: [facility] Main OR; Service: Orthopedic LUMBAR EPIDURAL INJECTION N/A RETINAL DETACHMENT SURGERY TOTAL KNEE ARTHROPLASTY Left 06/02 (more content not included)... [facility] 09-04-2024 Note Addended by: MONTY JULIEN on: 09/04/2024 08:56 AM Modules accepted: Orders [facility] 09-04-2024 Miscellaneous Notes Addended by: MONTY JULIEN on: 09/04/2024 08:56 AM Modules accepted: Orders documented in this encounter [facility] 09-03-2024 Note Nail care, left grea t toe pain Patient is a pleasant 79 year-old male who comes in today for diabetic nail care. His diabetes is managed by primary care including Dr. Kin Anne. Hemoglobin A1c is 7.5% with some tingling burning and loss of sensation. Physical Vascular: DP pulses are palpable 2 out of 4. PT pulses are nonpalpable bilaterally. CFT is fair with mild edema. Compression socks are helping. Feet are warm to cool proximal to distal. Hair growth absent to the lower extremity and skin is shiny atrophic dysvascular. Nails one left and one right are elongated thickened mycotic crumbling and dystrophic. Nails left foot 2345 and right foot 2345 are elongated and thickened and mycotic. Neuro: Sharp dull is blunted Babinski's is fair. Musculoskeletal: Muscle strength is 5/5 with fair tone, can easily wiggle toes without any clicking or catching. Left great toe is painful with compression of the first MPJ though the IPJ is full and pain-free. Otherwise can easily wiggle toes without any clicking or catching Assessment and plan: Patient is a pleasant 79-year-old male, diabetes with peripheral arterial disease, onychomycosis to two nails and onychodystrophy to eight nails. -He does qualify for nail care given his peripheral arterial disease and risk. Procedure: Nails left foot one 5 bilaterally were sharply debrided and debulk in height and length with a sharp pair of nail nippers consistent with a q8 modifier. Follow-up in 3 months for foot nail care. AUTHENTICATED BY CHINTAN MALDONADO JR., ON 09/03/2024 08:44:59 [facility] 09-03-2024 History of Present illness Narrative Nail care, left great toe pain Patient is a pleasant 79 year-old male who comes in today for diabetic nail care. His diabetes is managed by primary care including Dr. Kin Anne. Hemoglobin A1c is 7.5% with some tingling burning and loss of sensation. Physical Vascular: DP pulses are palpable 2 out of 4. PT pulses are nonpalpable bilaterally. CFT is fair with mild edema. Compression socks are helping. Feet are warm to cool proximal to distal. Hair growth absent to the lower extremity and skin is shiny atrophic dysvascular. Nails one left and one right are elongated thickened mycotic crumbling and dystrophic. Nails left foot 2345 and right foot 2345 are elongated and thickened and mycotic. Neuro: Sharp dull is blunted Babinski's is fair. Musculoskeletal: Muscle strength is 5/5 with fair tone, can easily wiggle toes without any clicking or catching. Left great toe is painful with compression of the first MPJ though the IPJ is full and pain-free. Otherwise can easily wiggle toes without any clicking or catching Assessment and plan: Patient is a pleasant 79-year-old male, diabetes with peripheral arterial disease, onychomycosis to two nails and onychodystrophy to eight nails. -He does qualify for nail care given his peripheral arterial disease and risk. Procedure: Nails left foot one 2345 bilaterally were sharply debrided and debulk in height and length with a sharp pair of nail nippers consistent with a q8 modifier. Follow-up in 3 months for foot nail care. documented in this encounter [facility] 08-28-2024 Note Thyroid FNA Procedur e Note Pre-operative Diagnosis: Thyroid nodule Post-operative Diagnosis : Same Indications: Thyroid nodule Anesthesia: 2% lidocaine with epinephrine Procedure Details The procedure, risks and 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s have been discussed in detail (including, but not limited to airway compromise, infection, bleeding) with the patient, and the patient has signed consent to the procedure. The skin was sterilely prepped over the affected area in the usual fashion. Biopsy site: Right nodule with calcified shell (in part irregular) (of note, there is another isoechoic nodule 1.5 cm nodule was noted in R inferior lobe, not FNAd today). Fine Needle Aspiration was performed with a 25 guage needle. Four passes were done (1 pass was discarded as couldn't feel it penetrated the shell). Specimens were verified for adequacy by bedside pathologist, and were sent to pathology. EBL: none Patient tolerated the procedure well. She was instructed to apply ice to her neck, use acetaminophen for pain if needed and to avoid NSAIDs for today. Complications: none Herman Naidu MD Endocrinology Dictated by: HERMAN NAIDU on SunAug 28, 2024 12:12:30 PM EST Transcribed by: HERMAN NAIDU on SunAug 28, 2024 12:12:30 PM EST Finalized by: HERMAN NAIDU on Far[place]en Aug 28, 2024 12:12:30 PM EST [facility] Comment on above: Order Comment: Injur y/Trauma or Illness?:Illness/Other How long have you had these symptoms (acute/chronic)?:Acute Reason for exam?:thyroid nodule History of cancer?:no Surgeries, chemotherapy, or radiation?:no Type of Exam?:Ongoing Additional signs and symptoms?:none 08-20-2024 History of Present illness Narrative Subjective Patient ID: Rocio Sandoval is a 78 y.o. 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 He presents today for follow-up after undergoing an updated lumbar MRI. At this time, he continues to have left radiating leg pain that he rates an 8/10. This affects his ambulatory status. This affects his quality life. This affects his activities and affects his ability to do things he wants to do. Patient most recently underwent a left-sided L5-S1 transforaminal epidural steroid injection. This is done on 05/28/2024. Gave him 75 to 90% relief for about 6 weeks and then the pain returned. This injection was the most beneficial. Prior to that he underwent L4-5 epidural steroid injection. This was done on 03/28/2024. Gave him significant relief for a few days but nothing more significant than that. He is here today with left radiating leg pain and wonders what other options he has to try to get relief. At this time, he rates his discomfort an 8/10. The more he is up and active the worst it gets. He is is Tylenol and gabapentin. He uses 800 mg 3 times a day. He tolerates this well. No side effects. He takes this as prescribed. He does not require any refills. He is just here today to review the MRI and discuss options. Review of Systems Constitutional: Negative. HENT: Negative. Eyes: Negative. Respiratory: Negative. Cardiovascular: Negative. Gastrointestinal: Negative. Endocrine: Negative. Genitourinary: Negative. Musculoskeletal: Positive for arthralgias, back pain, gait problem and myalgias. Skin: Negative. Allergic/Immunologic: Negative. Neurological: Positive for weakness and numbness. Hematological: Negative. Psychiatric/Behavioral: Negative. Objective Physical Exam Constitutional: General: He is not in acute distress. Appearance: Normal appearance. He is not ill-appearing. HENT: Head: Normocephalic. Right Ear: External ear normal. Left Ear: External ear normal. Nose: Nose normal. Mouth/Throat: Pharynx: Oropharynx is clear. Eyes: Pupils: Pupils are equal, round, and reactive to light. Cardiovascular: Rate and Rhythm: Normal rate. Pulmonary: Effort: Pulmonary effort is normal. Musculoskeletal: General: Normal range of motion. Right shoulder: Normal. Left shoulder: Normal. Right elbow: Normal. Left elbow: Normal. Right wrist: Normal. Left wrist: Normal. Cervical back: Normal, normal range of motion and neck supple. Thoracic back: Normal. Lumbar back: Normal. Right hip: Normal. Left hip: Normal. Right knee: Normal. Left knee: Normal. Comments: Ambulating with a cane 5/5 lower extremity strength other than left hip flexion, ADF and EHL 4+ to 5 -/5 Skin: General: Skin is warm and dry. Neurological: General: No focal deficit present. Mental Status: He is alert and oriented to person, place, and time. Psychiatric: Mood and Affect: Mood normal. Behavior: Behavior normal. Thought Content: Thought content normal. Judgment: Judgment normal. MR lumbar spine wo IV contrast Status: Final result PACS Images Show images for MR lumbar spine wo IV contrast Signed by Signed Time Phone Pager Rocio Go MD 08/12/2024 14:57 [id number] Exam Information Status Exam Begun Exam Ended Final 08/11/2024 10:12 08/11/2024 11:11 Study Result Narrative & Impression Interpreted By: Rocio Go, STUDY: MR LUMBAR SPINE WO IV CONTRAST performed 08/11/2024 11:11 am INDICATION: Signs/Symptoms:LOWER BACK AND LEG PAIN. 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 ACCESSION NUMBER(S): [id number] ORDERING CLINICIAN: REGGIE ARAGON TECHNIQUE: Multiplanar multisequence MR imaging of the lumbar spine performed without intravenous contrast. Sagittal T1, T2, STIR, axial T1 and T2 weighted images of the lumbar spine were acquired. FINDINGS: Segmentation: 5 lumbar vertebral bodies are designated on this examination. Rudimentary S1-S2 disc. Conus: The lower thoracic cord appears unremarkable. The conus terminates at the level of the inferior endplate of L2. Cauda equina are unremarkable. Epidural fluid: None. Alignment: Mild rotatory levo scoliosis of the lumbar spine. Vertebral bodies: Lumbar vertebral body heights are grossly maintained with unchanged minimal chronic anterior wedging of L1. Marrow signal: L1 vertebral body hemangioma. Trace type 1 Modic endplate signal change at L4-L5 and potentially at L3-L4. No suspicious STIR hyperintensity/marrow edema. Nonspecific marrow heterogeneity may reflect an element of demineralization. Intervertebral discs: Moderate degenerative disc height loss at L2-L3 and pyzy-fd-ncklzywk degenerative disc height loss at L3-L4 and L4-L5. Multilevel disc desiccation. Tiny scattered Schmorl's node deformities. Degenerative change: T12-L1: Mild facet arthropathy with ligamentum flavum hypertrophy. Tiny Schmorl's node deformities. Disc bulge with left subarticular/foraminal fissuring. Anterior predominant hypertrophic endplate spurring. There is mild ceve-tdfifsv-jsis-right lateral recess narrowing with no substantial spinal canal stenosis. No significant neural foraminal narrowing. Findings appear similar to prior exam. L1-2: Mild facet arthropathy and ligamentum flavum hypertrophy. No significant posterior disc bulge and endplate spurring. No spinal canal stenosis. No neural foraminal narrowing. L2-3: Possible prior right hemilaminectomy. Mild facet arthropathy. There is suspected right facet synovial cyst components dorsal and external to the spinal canal and possibly within the hemilaminectomy bed (series 8, image 25, series 7, image 13). Ligamentum flavum hypertrophy. Disc bulge and hypertrophic endplate spurring, worse along the rightward aspect. No spinal canal stenosis. Mild gihvq-ibmvfus-pgep-left neural foraminal narrowing. Findings appear similar to prior exam. L3-4: Possible remote right hemilaminectomy. Mild bilateral facet arthropathy. Left ligamentum flavum hypertrophy. Disc bulge and hypertrophic endplate spurring. Slight narrowing of the ahgtk-ijbidsr-xjjn-left lateral recesses with no additional spinal canal stenosis. Mild bilateral neural foraminal narrowing. L4-5: Moderate facet arthropathy with ligamentum flavum hypertrophy. Moderate disc bulge with mild endplate spurring. There is a possible small superimposed left subarticular disc extrusion with caudal migration. There is koks-zjtupro-pmol-right lateral recess stenosis with possible compression of the descending left L5 nerve root (series 9, image 8). Moderate trefoil narrowing of the thecal sac/spinal canal stenosis. Moderate jjmh-gcifsod-oycb-right neural foraminal narrowing with compression/impingement of the exiting left L4 nerve root. Findings appear similar to minimally worsened from comparison exam. L5-S1: Mild facet arthropathy. Minimal disc bulge and endplate spurring. Element of left lateral recess narrowing with no additional spinal canal stenosis. No substantial neural foraminal narrowing. Findings appear similar to prior exam. Soft tissues: Moderate fatty atrophy of the posterior paraspinal musculature. Incompletely visualized large exophytic cystic appearing lesion involving the left kidney. IMPRESSION: Similar MR appearance of the lumbar spine. Moderate spinal canal stenosis at L4-L5 with hpxw-kjxkskr-xxqb-right lateral recess narrowing and moderate upqr-vamnujk-wszg-right neural foraminal narrowing with compression/impingement of the exiting left L4 nerve root. MACRO: None Signed by: Rocio Go 08/12/2024 2:57 PM Dictation workstation: [id number] Assessment/Plan Diagnoses and all orders for this visit: Lumbar radiculopathy - Transforaminal; Future - FL pain management; Future 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 stenosis 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 Other orders - NPO Diet Except: Sips with meds; Effective now; Standing - Height and weight; Standing - Insert and maintain peripheral IV; Standing - Saline lock IV; Standing - POCT Glucose; Standing - Type And Screen; Standing - Inpatient consult to Respiratory Care; Standing - Adult diet Regular; Standing - Vital Signs; Standing - Notify physician - Standard Parameters; Standing - Continue IV fluids ordered pre-procedure; Standing - Prior to Discharge O2 Weaning; Standing - Pulse oximetry, continuous; Standing - Discharge patient; Standing - iohexol (OMNIPaque) 300 mg iodine/mL solution 6 mL - lidocaine PF (Xylocaine) 20 mg/mL (2 %) injection 120 mg - lidocaine PF (Xylocaine) 20 mg/mL (2 %) injection 10 mg - sodium chloride (PF) 0.9% solution 0.5 mL - dexAMETHasone (PF) (Decadron) injection 10 mg Patient is an 78-year-old male with the above-mentioned medical diagnoses following up today after undergoing an updated lumbar MRI scan. At this time, unfortunate, he is still having left radiating leg pain. This is affecting his ambulatory status. This is affecting his quality of life. This affecting his ability to do things he wants to do. At this time, he has previously trialed and failed all reasonable conservative treatments. We reviewed the MRI scan. Based on his MRI findings, his pain pattern and his failure to improve with conservative treatments I recommended to patient a left-sided L4-5 transforaminal epidural steroid injection to be done under fluoroscopy for both diagnostic and therapeutic purposes. Procedure was discussed. Risk and benefits were discussed. Medication was including vitamins for 1 week, ibuprofen for 24 hours and Xarelto for 3 days was discussed. He will follow-up 2 weeks after the injection for reevaluation. Call clinic sooner if necessary. In the meantime we will continue on gabapentin. OARRS reviewed. documented in this encounter [facility] Work Phone: 08-13-2024 Nurse Note Discharge instructions given to patient. Pt verbalizes understanding. PIV removed. Pt ambulated to bathroom, and all belongings returned to patient. [facility], VSS. [facility] Work Phone: 08-13-2024 Nurse Note Discharge instructions given to patient. Pt verbalizes understanding. PIV removed. Pt ambulated to bathroom, and all belongings returned to patient. Pt transported to [employer] via wheelchair, VSS. documented in this encounter [facility] Work Phone: 08-13-2024 Miscellaneous Notes Images from the original note were not included. 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] Procedure(s): dcPPM upgrade to PROPERTY CLAIM REP-P 60058 - [place] REMVL PERM PM PLS GEN W/REPL PLSE GEN MULT LEAD dcPPM upgrade to PROPERTY CLAIM REP-P 05637 - [place] INSJ ELTRD CAR LAKISHA SYS TM INSJ DFB/PM PLS GEN Images: Summary: Unsuccessful upgrade of a left sided Medtronic Dual chamber pacemaker to a Biventricular Pacemaker due to Venous Occlusion Plan for outpatient TLE (RA lead) with implant of new CS lead Recommendations: Tentatively patient will be discharged Today, following bed rest and subsequent ambulation, provided chest xray, device interrogation and recovery parameters are appropriate. Additional dose of antibiotics in 12 hours A PA-lateral chest X-ray should be performed in 1-2 hours Resume rest of home medications Discharge home with PO Abx Keflex 500mg BID x 7 Days Patient Instructions: Please do not lift left arm above shoulder level for 4-5 weeks No repetitive motion or lifting heavy weight for 4-5 weeks [address], alcohol or making legal decisions for 24 hours. Keep wound completely dry for 7 days; may shower but keep bandage as dry as possible. No soaking in hot tubs or baths for 10 days. May sponge bath Keep bandage on incision until seen in the office in 1 week. Allow steristrips underneath to fall off naturally. Please call our office ([facility]: [phone]) if you notice any discharge or swelling around incision or fever. Follow up: Operation scheduled [place] [facility] [place] full procedure note/study review please go to Chart review --> Cardiology tab --> Electrophysiology procedure for 08/13/2024 Complications: None Stents/Implants: Implants No implant documentation for this case. Anticoagulation/Antiplatelet Plan: See above in recommendations - Resume Xarelto 20mg Daily starting 08/14/24 Estimated Blood Loss: * No values recorded between 11/30/2023 2:17 PM and 11/30/2023 7:50 PM * Anesthesia: Moderate Sedation Anesthesia Staff: No anesthesia staff entered. Any Specimen(s) Removed: No specimens collected during this procedure. Disposition: Monitor for 2-3hrs post anesthesia and bed rest, and plan for Discharge home on 08/13/24 Aravind Jimenez MD [facility] Cardiac Electrophysiology Disclaimer: This note was dictated by speech recognition, and every effort has been made to prevent any error in scrum project manager, however minor errors may be present Sedation Plan ASA 3 Mallampati class: III. Risks, benefits, and alternatives discussed with patient. documented in this encounter [facility] Work Phone: 08-13-2024 Note Formatting of this n ote is different from the original. Images from the original note were not included. 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] Procedure(s): dcPPM upgrade to PROPERTY CLAIM REP-P 95122 - [place] REMVL PERM PM PLS GEN W/REPL PLSE GEN MULT LEAD dcPPM upgrade to PROPERTY CLAIM REP-P 91243 - [place] INSJ ELTRD CAR LAKISHA SYS TM INSJ DFB/PM PLS GEN Images: Summary: Unsuccessful upgrade of a left sided Medtronic Dual chamber pacemaker to a Biventricular Pacemaker due to Venous Occlusion Plan for outpatient TLE (RA lead) with implant of new CS lead Recommendations: Tentatively patient will be discharged Today, following bed rest and subsequent ambulation, provided chest xray, device interrogation and recovery parameters are appropriate. Additional dose of antibiotics in 12 hours A PA-lateral chest X-ray should be performed in 1-2 hours Resume rest of home medications Discharge home with PO Abx Keflex 500mg BID x 7 Days Patient Instructions: Please do not lift left arm above shoulder level for 4-5 weeks No repetitive motion or lifting heavy weight for 4-5 weeks No driving, alcohol or making legal decisions for 24 hours. Keep wound completely dry for 7 days; may shower but keep bandage as dry as possible. No soaking in hot tubs or baths for 10 days. May sponge bath Keep bandage on incision until seen in the office in 1 week. Allow steristrips underneath to fall off naturally. Please call our office ([facility]: [phone]) if you notice any discharge or swelling around incision or fever. Follow up: Operation scheduled [place] lead extraction and [place] [facility] [place] full procedure note/study review please go to Chart review --> Cardiology tab --> Electrophysiology procedure for 08/13/2024 Complications: None Stents/Implants: Implants No implant documentation for this case. Anticoagulation/Antiplatelet Plan: See above in recommendations - Resume Xarelto 20mg Daily starting 08/14/24 Estimated Blood Loss: * No values recorded between 11/30/2023 2:17 PM and 11/30/2023 7:50 PM * Anesthesia: Moderate Sedation Anesthesia Staff: No anesthesia staff entered. Any Specimen(s) Removed: No specimens collected during this procedure. Disposition: Monitor for 2-3hrs post anesthesia and bed rest, and plan for Discharge home on 08/13/24 Aravind Jimenez MD [facility] Cardiac Electrophysiology Disclaimer: This note was dictated by speech recognition, and every effort has been made to prevent any error in scrum project manager, however minor errors may be present [facility] Work Phone: 08-13-2024 Note Formatting of this n ote might be different from the original. Sedation Plan ASA 3 Mallampati class: III. Risks, benefits, and alternatives discussed with patient. [facility] Work Phone: 08-13-2024 Attending History and physical note H&P reviewed. The patient was examined and there are no changes to the H&P. #Pacing induced cardiomyopathy #Atrial fibrillation Patient is presenting today for planned upgrade of his dual-chamber pacemaker to a biventricular pacemaker with AV node ablation. We discussed that a venogram would be performed first and if the vein is occluded then we will likely plan for outpatient extraction with reimplantation. If vein is open then plan for upgrade either with CS lead or backup left bundle lead followed by AV node ablation. - Patient's last dose of anticoagulation was on Sunday - Plan for vancomycin preoperatively - Patient being admitted overnight for observation after procedure if new plantation is pursued Source Note - Octavio Marmolejo APRN-BUTCHER HELPER - 07/28/2024 8:45 AM EST Images from the original note were not included. [facility] Cardiology Clinic Visit Note History of present illness: This is a 78 y.o. male never smoker with a history of atrial fibrillation, sick sinus syndrome, hypertension, hyperlipidemia, obstructive sleep apnea, 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 who presents to the clinic for 3-month follow-up. He was referred to bull fiddle player Dr. Jimenez for concern of pacemaker induced heart failure for high degree of RV pacing. 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 If normal or he does not have a significant coronary artery disease then he will plan for a PROPERTY CLAIM REP-P upgrade with or without AV obinna ablation. At that visit on 05/27/2024 he stopped his amiodarone due to persistent atrial fibrillation. Subjective: He reports severe exercise intolerance and fatigue. He can barely stack wood without feeling short of breath and having to rest. Denies any chest pain or pressure. He has severe back pain which has been an ongoing issue. Denies palpitations, dizziness or lightheadedness or syncope. 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 RV was moderately enlarged. -Abnormal SPECT 06/09/2024. Predominantly fixed to medium size moderate to severe perfusion defect involving apex extending to apical anterior/inferior/septal wall and lateral webster. Post-rest LVEF 35%. No evidence of inducible ischemia. -Currently taking a beta-vic, Lopressor. Longstanding persistent atrial fibrillation -Status post RFA ablation with PVI, PWI November 2021 -Lopressor 50 mg daily for rate control -Xarelto 20 mg daily for primary stroke prevention due to [id number] or of 4. Sick sinus syndrome -Status post dual-chamber permanent pacemaker 2021 -Manage device interrogation shows RA pacing 3.9% and RV pacing 92.1%. Hyperlipidemia -LDL 44 on lipid panel 10/23/2023 -Atorvastatin 40 mg daily Assessment and Plan -Rate controlled persistent atrial fibrillation. He is scheduled for a pacemaker upgrade and AV obinna ablation in August with Dr. Jimenez. LDL is at goal and blood pressure appears to be well-controlled. He will continue his current medical regimen. Return to Care: 6 months Objective Past Medical History Past Medical History: Diagnosis Date Benign prostatic hyperplasia without lower urinary tract symptoms 07/08/2021 BPH (benign prostatic hyperplasia) Calculus of kidney 12/30/2019 Bilateral renal stones Carpal tunnel syndrome, right upper limb 12/31/2019 Carpal tunnel syndrome of right wrist Cough 10/06/2022 Depression, unspecified 01/05/2022 Depression Disorder of arteries and arterioles, unspecified 01/05/2022 Peripheral arterial occlusive disease Dizziness 10/06/2022 Essential (primary) hypertension 06/29/2022 Hypertension, essential, benign Gastro-esophageal reflux disease without esophagitis 01/05/2022 GERD (gastroesophageal reflux disease) Hyperlipidemia, unspecified 01/05/2022 Hyperlipemia Influenza A 10/06/2022 Male erectile dysfunction, unspecified 09/03/2019 Erectile dysfunction Obesity, unspecified 08/16/2020 Obesity (BMI 30-39.9) Obstructive sleep apnea (adult) (pediatric) 01/05/2022 ALISHA on CPAP Personal history of diseases of the skin and subcutaneous tissue History of actinic keratosis Personal history of other infectious and parasitic diseases History of onychomycosis Personal history of other infectious and parasitic diseases History of tinea pedis Plantar fascial fibromatosis Plantar fasciitis Polyosteoarthritis, unspecified 09/23/2019 Generalized osteoarthritis of multiple sites Rash of genitalia 10/06/2022 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s (Multi) 01/05/2022 Type II 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 Venous insufficiency (chronic) (peripheral) Venous insufficiency of leg Past Surgical History Past Surgical History: Procedure Laterality Date CARDIAC PACEMAKER PLACEMENT 06/2022 INJECTION Left 05/28/2024 Lt L5/S1-S1 TFEIS LUMBAR EPIDURAL INJECTION Bilateral 12/07/2023 Bilat L4/5 TFESI OTHER SURGICAL HISTORY 06/18/2019 Lumbar vertebral fusion OTHER SURGICAL HISTORY 06/18/2019 Retinal detachment repair OTHER SURGICAL HISTORY 06/18/2019 Phacoemulsification of cataract and insertion of intraocular lens OTHER SURGICAL HISTORY 06/18/2019 Circumcision OTHER SURGICAL HISTORY 06/18/2019 Knee replacement OTHER SURGICAL HISTORY 06/18/2019 Sigmoidoscopy flexible OTHER SURGICAL HISTORY 06/18/2019 Dermatological cryotherapy OTHER SURGICAL HISTORY 06/18/2019 Esophagogastroduodenoscopy OTHER SURGICAL HISTORY 06/18/2019 Nail debridement OTHER SURGICAL HISTORY 06/18/2019 Epidural space injection OTHER SURGICAL HISTORY 07/07/2020 Colonoscopy OTHER SURGICAL HISTORY 01/05/2022 Catheter ablation OTHER SURGICAL HISTORY 08/16/2020 Cardiac catheterization OTHER SURGICAL HISTORY 05/11/2020 Inguinal hernia repair PACEMAKER PLACEMENT Medications Current Outpatient Medications Medication Instructions acetaminophen (TYLENOL 8 HOUR) 650 mg, Every 8 hours PRN acetaminophen (Tylenol) 500 mg tablet Every 6 hours PRN albuterol 90 mcg/actuation inhaler 1-2 puffs, inhalation, Every 6 hours PRN atorvastatin (LIPITOR) 40 mg, oral, Nightly B6/folic/B12/coffee/phosphatid (NEURIVA PLUS BRAIN PERFORMANCE ORAL) 1 tablet, Daily colchicine 0.6 mg, oral, Daily PRN diclofenac sodium (VOLTAREN) 4 g, Topical, 4 times daily PRN empagliflozin (JARDIANCE) 25 mg, oral, Daily fexofenadine (SULAIMAN) 180 mg, oral, Daily FreeStyle Vince 14 Day [place] misc Use as instructed PingTankStyle Vince 14 Day Sensor kit 1 each, subcutaneous, Every 14 days, Use as instructed furosemide (LASIX) 20 mg, Daily gabapentin (NEURONTIN) 1,200 mg, oral, 3 times daily, Takes 3 time a day melatonin 5 mg capsule Take by mouth. metFORMIN XR (GLUCOPHAGE-XR) 750 mg, oral, 2 times daily metoprolol tartrate (Lopressor) 50 mg tablet oral, Daily multivitamin (MULTIPLE VITAMINS ORAL) 1 tablet, Daily omeprazole (PRILOSEC) 40 mg, oral, Daily rivaroxaban (XARELTO) 20 mg, oral, Daily tamsulosin (FLOMAX) 0.4 mg, oral, Daily testosterone cypionate (DEPO-TESTOSTERONE) 100 mg, intramuscular, Every 14 days vitamins A,C,I-cpsz-niabxf (Eye Multivitamin) 2,148 mcg-113 mg-45 mg-17.4mg tablet 1 tablet, Daily Allergies No Known Allergies Social History Social History Tobacco Use Smoking status: Never Passive exposure: Never Smokeless tobacco: Never Vaping Use Vaping status: Never Used Substance Use Topics Alcohol use: Never Drug use: Never Family History Family History Problem Relation Name Age of Onset Other (CVA) Mother Diabetes type II Father Diabetes type II Sister Heart attack Brother Coronary artery disease Brother Kidney failure Brother Diabetes type II Brother VITALS Vitals: 07/28/24 0843 BP: 112/52 Pulse: 58 SpO2: 91% Weight Vitals: 07/28/24 0843 Weight: 106 kg (233 lb 9.6 oz) PHYSICAL EXAM Physical Exam Vitals and nursing note reviewed. Constitutional: General: He is not in acute distress. Appearance: He is obese. HENT: Head: Normocephalic and atraumatic. Mouth/Throat: Mouth: Mucous membranes are moist. Pharynx: Oropharynx is clear. Eyes: General: No scleral icterus. Pupils: Pupils are equal, round, and reactive to light. Cardiovascular: Rate and Rhythm: Normal rate. Rhythm irregular. Pulses: Normal pulses. Heart sounds: Normal heart sounds, S1 normal and S2 normal. No murmur heard. No friction rub. Pulmonary: Effort: Pulmonary effort is normal. Breath sounds: Normal breath sounds. Abdominal: General: Bowel sounds are normal. There is no distension. Palpations: Abdomen is soft. Tenderness: There is no abdominal tenderness. Musculoskeletal: General: Normal range of motion. Cervical back: Normal range of motion and neck supple. Right lower leg: No edema. Left lower leg: No edema. Skin: General: Skin is warm and dry. Capillary Refill: Capillary refill takes less than 2 seconds. Findings: No rash. Neurological: General: No focal deficit present. Mental Status: He is alert. Psychiatric: Mood and Affect: Mood normal. Behavior: Behavior normal. Cardiovascular Labs Lab Results Component Value Date HGB 12.9 (L) 06/12/2024 HGB 13.0 (L) 04/25/2024 HGB 12.7 (L) 01/25/2024 PLT 274 06/12/2024 WBC 7.1 06/12/2024 NA 140 06/12/2024 K 4.2 06/12/2024 CREATININE 1.05 06/12/2024 CREATININE 1.02 04/25/2024 CREATININE 0.97 01/25/2024 BUN 16 06/12/2024 CALCIUM 8.7 06/12/2024 INR 1.4 (H) 03/16/2023 BNP 548 (H) 06/12/2024 TROPHS 5 06/12/2024 TROPHS <3 08/25/2022 TROPHS <3 08/25/2022 LDLF 55 10/03/2022 Echocardiogram Results for orders placed during the hospital encounter of 04/08/24 Transthoracic Echo (TTE) [place] [id number], TRANSTHORACIC ECHOCARDIOGRAM REPORT Patient Name: ROCIO Pack Physician: [id number] Stroud MD Study Date: 04/08/2024 Ordering Provider: Delma STROUD MRN/PID: [id number] Fellow: Nurse: Yaritza Tello RN Date of /Age: 2 1945 / 78 years Investigator Fraud: Trey Severino RDCS Gender: M Additional Staff: Height: 187.96 cm Admit Date: Weight: 105.24 kg Admission Status: Outpatient BSA / BMI: 2.31 m2 / 29.79 Department Location: [facility] Echo Lab kg/m2 Blood Pressure: 128 /72 mmHg Study Type: TRANSTHORACIC ECHO (TTE) COMPLETE Diagnosis/ICD: Unspecified systolic (congestive) heart failure (CHF)-I50.20 CPT Codes: Echo Complete w Full Doppler-61168 Study Detail: The following Echo studies were performed: 2D, M-Mode, Doppler and color flow. Definity used as a contrast agent for endocardial border definition and agitated saline used as a contrast agent for intraseptal flow evaluation. Total contrast used for this procedure was 2.00cc mL via IV push. PHYSICIAN INTERPRETATION: Left Ventricle: Left ventricular ejection fraction is mildly decreased, calculated by Pleitez's biplane at 42%. The patient is in atrial fibrillation which may influence the estimate of left ventricular function and transvalvular flows. There is global hypokinesis of the left ventricle with minor regional variations. The left ventricular cavity size is normal. Abnormal (paradoxical) septal motion, consistent with RV pacemaker. Left ventricular diastolic filling was indeterminate. Left Atrium: The left atrium is mildly dilated. A bubble study using agitated saline was performed. Bubble study is negative. Right Ventricle: The right ventricle is moderately enlarged. There is normal right ventricular global systolic function. A device is visualized in the right ventricle. Right Atrium: The right atrium is normal in size. Aortic Valve: The aortic valve is trileaflet. The aortic valve dimensionless index is 0.41. There is no evidence of aortic valve regurgitation. The peak instantaneous gradient of the aortic valve is 8.3 mmHg. The mean gradient of the aortic valve is 5.0 mmHg. Mitral Valve: The mitral valve is normal in structure. There is no evidence of mitral valve regurgitation. Tricuspid Valve: The tricuspid valve is structurally normal. There is mild tricuspid regurgitation. Pulmonic Valve: The pulmonic valve is structurally normal. There is no indication of pulmonic valve regurgitation. Pericardium: Small pericardial effusion localized near the left ventricle. Aorta: The aortic root is normal. Systemic Veins: The inferior vena cava appears dilated, with IVC inspiratory collapse less than 50%. CONCLUSIONS: 1. Left ventricular ejection fraction is mildly decreased, calculated by Pleitez's biplane at 42%. 2. There is global hypokinesis of the left ventricle with minor regional variations. 3. Left ventricular diastolic filling was indeterminate. 4. Abnormal septal motion consistent with RV pacemaker. 5. There is normal right ventricular global systolic function. 6. Moderately enlarged right ventricle. 7. Compared to prior echocardiogram dated 06/02/2021: Ejection fraction has declined. 8. The patient is in atrial fibrillation which may influence the estimate of left ventricular function and transvalvular flows. QUANTITATIVE DATA SUMMARY: 2D MEASUREMENTS: Normal Ranges: Ao Root d: 3.60 cm (2.0-3.7cm) LAs: 4.50 cm (2.7-4.0cm) IVSd: 1.10 cm (0.6-1.1cm) LVPWd: 1.05 cm (0.6-1.1cm) LVIDd: 5.90 cm (3.9-5.9cm) LVIDs: 3.64 cm LV Mass Index: 113.9 g/m2 LV % FS 38.3 % LA VOLUME: Normal Ranges: LA Vol A4C: 97.7 ml (22+/-6mL/m2) LA Vol A2C: 76.0 ml LA Vol BP: 90.4 ml LA Vol Index A4C: 42.2ml/m2 LA Vol Index A2C: 32.9 ml/m2 LA Vol Index BP: 39.1 ml/m2 LA Area A4C: 28.9 cm2 LA Area A2C: 24.3 cm2 LA Major Barnhart A4C: 7.3 cm LA Major Barnhart A2C: 6.6 cm LA Volume Index: 41.7 ml/m2 LA Vol A4C: 96.3 ml LA Vol A2C: 74.2 ml LA Vol Index BSA: 36.8 ml/m2 LV SYSTOLIC FUNCTION BY 2D PLANIMETRY (MOD): Normal Ranges: EF-A4C View: 39 % (>=55%) EF-A2C View: 46 % EF-Biplane: 42 % LV EF Reported: 42 % AORTIC VALVE: Normal Ranges: AoV Vmax: 1.44 m/s (<=1.7m/s) AoV Peak P.3 mmHg (<20mmHg) AoV Mean P.0 mmHg (1.7-11.5mmHg) LVOT Max Marin: 0.64 m/s (<=1.1m/s) AoV VTI: 33.90 cm (18-25cm) LVOT VTI: 14.00 cm LVOT Diameter: 2.10 cm (1.8-2.4cm) AoV Area, VTI: 1.43 cm2 (2.5-5.5cm2) AoV Area,Vmax: 1.55 cm2 (2.5-4.5cm2) AoV Dimensionless Index: 0.41 RIGHT VENTRICLE: RV Basal 5.19 cm RV Mid 3.66 cm RV Major 9.2 cm TAPSE: 23.1 mm RV s' 0.12 m/s TRICUSPID VALVE/RVSP: Normal Ranges: Peak TR Velocity: 2.80 m/s RV Syst Pressure: 34 mmHg (< 30mmHg) [id number] Joel Stroud MD Electronically signed on 04/08/2024 at 9:23:41 AM Final The ASCVD Risk score (Ernie DK, et al., 2019) failed to calculate for the following reasons: The 2019 ASCVD risk score is only valid for ages 40 to 79 Low Risk: <5% Borderline Risk: 5%-7.4% Intermediate Risk: 7.5% - 19.9% High Risk: >20% If your symptoms worsen or progress please go directory to your nearest emergency department for evaluation. Thank you for this interesting clinical case and allowing me to participate in the care of this patient. Please reach me out if you have any questions or if you need any clarifications regarding this patient's care. Disclaimer: This note was dictated by speech recognition, and every effort has been made to prevent any error in scrum project manager, however minor errors may be present Octavio Marmolejo, MSN, BUTCHER HELPER, ACNPC, CCRN Advanced Practice Provider, Nurse Practitioner Division of Cardiovascular Medicine [facility] Work Phone: 08-13-2024 History and physical note H&P reviewed. The patient was examined and there are no changes to the H&P. #Pacing induced cardiomyopathy #Atrial fibrillation Patient is presenting today for planned upgrade of his dual-chamber pacemaker to a biventricular pacemaker with AV node ablation. We discussed that a venogram would be performed first and if the vein is occluded then we will likely plan for outpatient extraction with reimplantation. If vein is open then plan for upgrade either with CS lead or backup left bundle lead followed by AV node ablation. - Patient's last dose of anticoagulation was on Sunday - Plan for vancomycin preoperatively - Patient being admitted overnight for observation after procedure if new plantation is pursued Source Note - Octavio Marmolejo APRN-BUTCHER HELPER - 07/28/2024 8:45 AM EST Images from the original note were not included. [facility] Cardiology Clinic Visit Note History of present illness: This is a 78 y.o. male never smoker with a history of atrial fibrillation, sick sinus syndrome, hypertension, hyperlipidemia, obstructive sleep apnea, 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 who presents to the clinic for 3-month follow-up. He was referred to bull fiddle player Dr. Jimenez for concern of pacemaker induced heart failure for high degree of RV pacing. 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 If normal or he does not have a significant coronary artery disease then he will plan for a PROPERTY CLAIM REP-P upgrade with or without AV obinna ablation. At that visit on 05/27/2024 he stopped his amiodarone due to persistent atrial fibrillation. Subjective: He reports severe exercise intolerance and fatigue. He can barely stack wood without feeling short of breath and having to rest. Denies any chest pain or pressure. He has severe back pain which has been an ongoing issue. Denies palpitations, dizziness or lightheadedness or syncope. 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 RV was moderately enlarged. -Abnormal SPECT 06/09/2024. Predominantly fixed to medium size moderate to severe perfusion defect involving apex extending to apical anterior/inferior/septal wall and lateral webster. Post-rest LVEF 35%. No evidence of inducible ischemia. -Currently taking a beta-vic, Lopressor. Longstanding persistent atrial fibrillation -Status post RFA ablation with PVI, PWI November 2021 -Lopressor 50 mg daily for rate control -Xarelto 20 mg daily for primary stroke prevention due to [id number] or of 4. Sick sinus syndrome -Status post dual-chamber permanent pacemaker 2021 -Manage device interrogation shows RA pacing 3.9% and RV pacing 92.1%. Hyperlipidemia -LDL 44 on lipid panel 10/23/2023 -Atorvastatin 40 mg daily Assessment and Plan -Rate controlled persistent atrial fibrillation. He is scheduled for a pacemaker upgrade and AV obinna ablation in [place] with Dr. Jimenez. LDL is at goal and blood pressure appears to be well-controlled. He will continue his current medical regimen. Return to Care: 6 months Objective Past Medical History Past Medical History: Diagnosis Date Benign prostatic hyperplasia without lower urinary tract symptoms 07/08/2021 BPH (benign prostatic hyperplasia) Calculus of kidney 12/30/2019 Bilateral renal stones Carpal tunnel syndrome, right upper limb 12/31/2019 Carpal tunnel syndrome of right wrist Cough 10/06/2022 Depression, unspecified 01/05/2022 Depression Disorder of arteries and arterioles, unspecified 01/05/2022 Peripheral arterial occlusive disease Dizziness 10/06/2022 Essential (primary) hypertension 06/29/2022 Hypertension, essential, benign Gastro-esophageal reflux disease without esophagitis 01/05/2022 GERD (gastroesophageal reflux disease) Hyperlipidemia, unspecified 01/05/2022 Hyperlipemia Influenza A 10/06/2022 Male erectile dysfunction, unspecified 09/03/2019 Erectile dysfunction Obesity, unspecified 08/16/2020 Obesity (BMI 30-39.9) Obstructive sleep apnea (adult) (pediatric) 01/05/2022 ALISHA on CPAP Personal history of diseases of the skin and subcutaneous tissue History of actinic keratosis Personal history of other infectious and parasitic diseases History of onychomycosis Personal history of other infectious and parasitic diseases History of tinea pedis Plantar fascial fibromatosis Plantar fasciitis Polyosteoarthritis, unspecified 09/23/2019 Generalized osteoarthritis of multiple sites Rash of genitalia 10/06/2022 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s (Multi) 01/05/2022 Type II 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 Venous insufficiency (chronic) (peripheral) Venous insufficiency of leg Past Surgical History Past Surgical History: Procedure Laterality Date CARDIAC PACEMAKER PLACEMENT 06/2022 INJECTION Left 05/28/2024 Lt L5/S1-S1 TFEIS LUMBAR EPIDURAL INJECTION Bilateral 12/07/2023 Bilat L4/5 TFESI OTHER SURGICAL HISTORY 06/18/2019 Lumbar vertebral fusion OTHER SURGICAL HISTORY 06/18/2019 Retinal detachment repair OTHER SURGICAL HISTORY 06/18/2019 Phacoemulsification of cataract and insertion of intraocular lens OTHER SURGICAL HISTORY 06/18/2019 Circumcision OTHER SURGICAL HISTORY 06/18/2019 Knee replacement OTHER SURGICAL HISTORY 06/18/2019 Sigmoidoscopy flexible OTHER SURGICAL HISTORY 06/18/2019 Dermatological cryotherapy OTHER SURGICAL HISTORY 06/18/2019 Esophagogastroduodenoscopy OTHER SURGICAL HISTORY 06/18/2019 Nail debridement OTHER SURGICAL HISTORY 06/18/2019 Epidural space injection OTHER SURGICAL HISTORY 07/07/2020 Colonoscopy OTHER SURGICAL HISTORY 01/05/2022 Catheter ablation OTHER SURGICAL HISTORY 08/16/2020 Cardiac catheterization OTHER SURGICAL HISTORY 05/11/2020 Inguinal hernia repair PACEMAKER PLACEMENT Medications Current Outpatient Medications Medication Instructions acetaminophen (TYLENOL 8 HOUR) 650 mg, Every 8 hours PRN acetaminophen (Tylenol) 500 mg tablet Every 6 hours PRN albuterol 90 mcg/actuation inhaler 1-2 puffs, inhalation, Every 6 hours PRN atorvastatin (LIPITOR) 40 mg, oral, Nightly B6/folic/B12/coffee/phosphatid (NEURIVA PLUS BRAIN PERFORMANCE ORAL) 1 tablet, Daily colchicine 0.6 mg, oral, Daily PRN diclofenac sodium (VOLTAREN) 4 g, Topical, 4 times daily PRN empagliflozin (JARDIANCE) 25 mg, oral, Daily fexofenadine (SULAIMAN) 180 mg, oral, Daily FreeStyle Vince 14 Day [place] misc Use as instructed PingTankStMobi Rider Vince 14 Day Sensor kit 1 each, subcutaneous, Every 14 days, Use as instructed furosemide (LASIX) 20 mg, Daily gabapentin (NEURONTIN) 1,200 mg, oral, 3 times daily, Takes 3 time a day melatonin 5 mg capsule Take by mouth. metFORMIN XR (GLUCOPHAGE-XR) 750 mg, oral, 2 times daily metoprolol tartrate (Lopressor) 50 mg tablet oral, Daily multivitamin (MULTIPLE VITAMINS ORAL) 1 tablet, Daily omeprazole (PRILOSEC) 40 mg, oral, Daily rivaroxaban (XARELTO) 20 mg, oral, Daily tamsulosin (FLOMAX) 0.4 mg, oral, Daily testosterone cypionate (DEPO-TESTOSTERONE) 100 mg, intramuscular, Every 14 days vitamins A,C,G-wjly-mfheks (Eye Multivitamin) 2,148 mcg-113 mg-45 mg-17.4mg tablet 1 tablet, Daily Allergies No Known Allergies Social History Social History Tobacco Use Smoking status: Never Passive exposure: Never Smokeless tobacco: Never Vaping Use Vaping status: Never Used Substance Use Topics Alcohol use: Never Drug use: Never Family History Family History Problem Relation Name Age of Onset Other (CVA) Mother Diabetes type II Father Diabetes type II Sister Heart attack Brother Coronary artery disease Brother Kidney failure Brother Diabetes type II Brother VITALS Vitals: 07/28/24 0843 BP: 112/52 Pulse: 58 SpO2: 91% Weight Vitals: 07/28/24 0843 Weight: 106 kg (233 lb 9.6 oz) PHYSICAL EXAM Physical Exam Vitals and nursing note reviewed. Constitutional: General: He is not in acute distress. Appearance: He is obese. HENT: Head: Normocephalic and atraumatic. Mouth/Throat: Mouth: Mucous membranes are moist. Pharynx: Oropharynx is clear. Eyes: General: No scleral icterus. Pupils: Pupils are equal, round, and reactive to light. Cardiovascular: Rate and Rhythm: Normal rate. Rhythm irregular. Pulses: Normal pulses. Heart sounds: Normal heart sounds, S1 normal and S2 normal. No murmur heard. No friction rub. Pulmonary: Effort: Pulmonary effort is normal. Breath sounds: Normal breath sounds. Abdominal: General: Bowel sounds are normal. There is no distension. Palpations: Abdomen is soft. Tenderness: There is no abdominal tenderness. Musculoskeletal: General: Normal range of motion. Cervical back: Normal range of motion and neck supple. Right lower leg: No edema. Left lower leg: No edema. Skin: General: Skin is warm and dry. Capillary Refill: Capillary refill takes less than 2 seconds. Findings: No rash. Neurological: General: No focal deficit present. Mental Status: He is alert. Psychiatric: Mood and Affect: Mood normal. Behavior: Behavior normal. Cardiovascular Labs Lab Results Component Value Date HGB 12.9 (L) 06/12/2024 HGB 13.0 (L) 04/25/2024 HGB 12.7 (L) 01/25/2024 PLT 274 06/12/2024 WBC 7.1 06/12/2024 NA 140 06/12/2024 K 4.2 06/12/2024 CREATININE 1.05 06/12/2024 CREATININE 1.02 04/25/2024 CREATININE 0.97 01/25/2024 BUN 16 06/12/2024 CALCIUM 8.7 06/12/2024 INR 1.4 (H) 03/16/2023 BNP 548 (H) 06/12/2024 TROPHS 5 06/12/2024 TROPHS <3 08/25/2022 TROPHS <3 08/25/2022 LDLF 55 10/03/2022 Echocardiogram Results for orders placed during the hospital encounter of 04/08/24 Transthoracic Echo (TTE) [place] [id number], TRANSTHORACIC ECHOCARDIOGRAM REPORT Patient Name: ROCIO Pack Physician: Delma Stroud MD Study Date: 04/08/2024 Ordering Provider: Delma STROUD MRN/PID: [id number] Fellow: Nurse: Yaritza Tello RN Date of /Age: 2 1945 / 78 years Investigator Fraud: Trey Severino RDCS Gender: M Additional Staff: Height: 187.96 cm Admit Date: Weight: 105.24 kg Admission Status: Outpatient BSA / BMI: 2.31 m2 / 29.79 Department Location: [facility] Echo Lab kg/m2 Blood Pressure: 128 /72 mmHg Study Type: TRANSTHORACIC ECHO (TTE) COMPLETE Diagnosis/ICD: Unspecified systolic (congestive) heart failure (CHF)-I50.20 CPT Codes: Echo Complete w Full Doppler-22220 Study Detail: The following Echo studies were performed: 2D, M-Mode, Doppler and color flow. Definity used as a contrast agent for endocardial border definition and agitated saline used as a contrast agent for intraseptal flow evaluation. Total contrast used for this procedure was 2.00cc mL via IV push. PHYSICIAN INTERPRETATION: Left Ventricle: Left ventricular ejection fraction is mildly decreased, calculated by Pleitez's biplane at 42%. The patient is in atrial fibrillation which may influence the estimate of left ventricular function and transvalvular flows. There is global hypokinesis of the left ventricle with minor regional variations. The left ventricular cavity size is normal. Abnormal (paradoxical) septal motion, consistent with RV pacemaker. Left ventricular diastolic filling was indeterminate. Left Atrium: The left atrium is mildly dilated. A bubble study using agitated saline was performed. Bubble study is negative. Right Ventricle: The right ventricle is moderately enlarged. There is normal right ventricular global systolic function. A device is visualized in the right ventricle. Right Atrium: The right atrium is normal in size. Aortic Valve: The aortic valve is trileaflet. The aortic valve dimensionless index is 0.41. There is no evidence of aortic valve regurgitation. The peak instantaneous gradient of the aortic valve is 8.3 mmHg. The mean gradient of the aortic valve is 5.0 mmHg. Mitral Valve: The mitral valve is normal in structure. There is no evidence of mitral valve regurgitation. Tricuspid Valve: The tricuspid valve is structurally normal. There is mild tricuspid regurgitation. Pulmonic Valve: The pulmonic valve is structurally normal. There is no indication of pulmonic valve regurgitation. Pericardium: Small pericardial effusion localized near the left ventricle. Aorta: The aortic root is normal. Systemic Veins: The inferior vena cava appears dilated, with IVC inspiratory collapse less than 50%. CONCLUSIONS: 1. Left ventricular ejection fraction is mildly decreased, calculated by Pleitez's biplane at 42%. 2. There is global hypokinesis of the left ventricle with minor regional variations. 3. Left ventricular diastolic filling was indeterminate. 4. Abnormal septal motion consistent with RV pacemaker. 5. There is normal right ventricular global systolic function. 6. Moderately enlarged right ventricle. 7. Compared to prior echocardiogram dated 06/02/2021: Ejection fraction has declined. 8. The patient is in atrial fibrillation which may influence the estimate of left ventricular function and transvalvular flows. QUANTITATIVE DATA SUMMARY: 2D MEASUREMENTS: Normal Ranges: Ao Root d: 3.60 cm (2.0-3.7cm) LAs: 4.50 cm (2.7-4.0cm) IVSd: 1.10 cm (0.6-1.1cm) LVPWd: 1.05 cm (0.6-1.1cm) LVIDd: 5.90 cm (3.9-5.9cm) LVIDs: 3.64 cm LV Mass Index: 113.9 g/m2 LV % FS 38.3 % LA VOLUME: Normal Ranges: LA Vol A4C: 97.7 ml (22+/-6mL/m2) LA Vol A2C: 76.0 ml LA Vol BP: 90.4 ml LA Vol Index A4C: 42.2ml/m2 LA Vol Index A2C: 32.9 ml/m2 LA Vol Index BP: 39.1 ml/m2 LA Area A4C: 28.9 cm2 LA Area A2C: 24.3 cm2 LA Major Barnhart A4C: 7.3 cm LA Major Barnhart A2C: 6.6 cm LA Volume Index: 41.7 ml/m2 LA Vol A4C: 96.3 ml LA Vol A2C: 74.2 ml LA Vol Index BSA: 36.8 ml/m2 LV SYSTOLIC FUNCTION BY 2D PLANIMETRY (MOD): Normal Ranges: EF-A4C View: 39 % (>=55%) EF-A2C View: 46 % EF-Biplane: 42 % LV EF Reported: 42 % AORTIC VALVE: Normal Ranges: AoV Vmax: 1.44 m/s (<=1.7m/s) AoV Peak P.3 mmHg (<20mmHg) AoV Mean P.0 mmHg (1.7-11.5mmHg) LVOT Max Marin: 0.64 m/s (<=1.1m/s) AoV VTI: 33.90 cm (18-25cm) LVOT VTI: 14.00 cm LVOT Diameter: 2.10 cm (1.8-2.4cm) AoV Area, VTI: 1.43 cm2 (2.5-5.5cm2) AoV Area,Vmax: 1.55 cm2 (2.5-4.5cm2) AoV Dimensionless Index: 0.41 RIGHT VENTRICLE: RV Basal 5.19 cm RV Mid 3.66 cm RV Major 9.2 cm TAPSE: 23.1 mm RV s' 0.12 m/s TRICUSPID VALVE/RVSP: Normal Ranges: Peak TR Velocity: 2.80 m/s RV Syst Pressure: 34 mmHg (< 30mmHg) [id number] Joel Stroud MD Electronically signed on 04/08/2024 at 9:23:41 AM Final The ASCVD Risk score (Ernie DK, et al., 2019) failed to calculate for the following reasons: The 2019 ASCVD risk score is only valid for ages 40 to 79 Low Risk: <5% Borderline Risk: 5%-7.4% Intermediate Risk: 7.5% - 19.9% High Risk: >20% If your symptoms worsen or progress please go directory to your nearest emergency department for evaluation. Thank you for this interesting clinical case and allowing me to participate in the care of this patient. Please reach me out if you have any questions or if you need any clarifications regarding this patient's care. Disclaimer: This note was dictated by speech recognition, and every effort has been made to prevent any error in scrum project manager, however minor errors may be present Octavio Marmolejo, MSN, BUTCHER HELPER, ACNPC, CCRN Advanced Practice Provider, Nurse Practitioner Division of Cardiovascular Medicine [facility] documented in this encounter [facility] Work Phone: 08-11-2024 Nurse Note Pt here for MRI and has a PPM. Pacer clinic placed pt in VOO 80 mode. Tolerated MRI without difficulty, sp02 remained 96% room air, HR 80 [facility] 08-11-2024 Nurse Note Pt here for MRI and has a PPM. Pacer clinic placed pt in VOO 80 mode. Tolerated MRI without difficulty, sp02 remained 96% room air, HR 80 documented in this encounter [facility] Work Phone: 07-28-2024 History of Present illness Narrative Images from the original note were not included. [facility]iology Clinic Visit Note History of present illness: This is a 78 y.o. male never smoker with a history of atrial fibrillation, sick sinus syndrome, hypertension, hyperlipidemia, obstructive sleep apnea, 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 who presents to the clinic for 3-month follow-up. He was referred to bull fiddle player Dr. Jimenez for concern of pacemaker induced heart failure for high degree of RV pacing. 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 If normal or he does not have a significant coronary artery disease then he will plan for a PROPERTY CLAIM REP-P upgrade with or without AV obinna ablation. At that visit on 05/27/2024 he stopped his amiodarone due to persistent atrial fibrillation. Subjective: He reports severe exercise intolerance and fatigue. He can barely stack wood without feeling short of breath and having to rest. Denies any chest pain or pressure. He has severe back pain which has been an ongoing issue. Denies palpitations, dizziness or lightheadedness or syncope. 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 RV was moderately enlarged. -Abnormal SPECT 06/09/2024. Predominantly fixed to medium size moderate to severe perfusion defect involving apex extending to apical anterior/inferior/septal wall and lateral webster. Post-rest LVEF 35%. No evidence of inducible ischemia. -Currently taking a beta-vic, Lopressor. Longstanding persistent atrial fibrillation -Status post RFA ablation with PVI, PWI November 2021 -Lopressor 50 mg daily for rate control -Xarelto 20 mg daily for primary stroke prevention due to [id number] or of 4. Sick sinus syndrome -Status post dual-chamber permanent pacemaker 2021 -Manage device interrogation shows RA pacing 3.9% and RV pacing 92.1%. Hyperlipidemia -LDL 44 on lipid panel 10/23/2023 -Atorvastatin 40 mg daily Assessment and Plan -Rate controlled persistent atrial fibrillation. He is scheduled for a pacemaker upgrade and AV obinna ablation in August with Dr. Jimenez. LDL is at goal and blood pressure appears to be well-controlled. He will continue his current medical regimen. Return to Care: 6 months Objective Past Medical History Past Medical History: Diagnosis Date Benign prostatic hyperplasia without lower urinary tract symptoms 07/08/2021 BPH (benign prostatic hyperplasia) Calculus of kidney 12/30/2019 Bilateral renal stones Carpal tunnel syndrome, right upper limb 12/31/2019 Carpal tunnel syndrome of right wrist Cough 10/06/2022 Depression, unspecified 01/05/2022 Depression Disorder of arteries and arterioles, unspecified 01/05/2022 Peripheral arterial occlusive disease Dizziness 10/06/2022 Essential (primary) hypertension 06/29/2022 Hypertension, essential, benign Gastro-esophageal reflux disease without esophagitis 01/05/2022 GERD (gastroesophageal reflux disease) Hyperlipidemia, unspecified 01/05/2022 Hyperlipemia Influenza A 10/06/2022 Male erectile dysfunction, unspecified 09/03/2019 Erectile dysfunction Obesity, unspecified 08/16/2020 Obesity (BMI 30-39.9) Obstructive sleep apnea (adult) (pediatric) 01/05/2022 ALISHA on CPAP Personal history of diseases of the skin and subcutaneous tissue History of actinic keratosis Personal history of other infectious and parasitic diseases History of onychomycosis Personal history of other infectious and parasitic diseases History of tinea pedis Plantar fascial fibromatosis Plantar fasciitis Polyosteoarthritis, unspecified 09/23/2019 Generalized osteoarthritis of multiple sites Rash of genitalia 10/06/2022 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s (Multi) 01/05/2022 Type II 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 Venous insufficiency (chronic) (peripheral) Venous insufficiency of leg Past Surgical History Past Surgical History: Procedure Laterality Date CARDIAC PACEMAKER PLACEMENT 06/2022 INJECTION Left 05/28/2024 Lt L5/S1-S1 TFEIS LUMBAR EPIDURAL INJECTION Bilateral 12/07/2023 Bilat L4/5 TFESI OTHER SURGICAL HISTORY 06/18/2019 Lumbar vertebral fusion OTHER SURGICAL HISTORY 06/18/2019 Retinal detachment repair OTHER SURGICAL HISTORY 06/18/2019 Phacoemulsification of cataract and insertion of intraocular lens OTHER SURGICAL HISTORY 06/18/2019 Circumcision OTHER SURGICAL HISTORY 06/18/2019 Knee replacement OTHER SURGICAL HISTORY 06/18/2019 Sigmoidoscopy flexible OTHER SURGICAL HISTORY 06/18/2019 Dermatological cryotherapy OTHER SURGICAL HISTORY 06/18/2019 Esophagogastroduodenoscopy OTHER SURGICAL HISTORY 06/18/2019 Nail debridement OTHER SURGICAL HISTORY 06/18/2019 Epidural space injection OTHER SURGICAL HISTORY 07/07/2020 Colonoscopy OTHER SURGICAL HISTORY 01/05/2022 Catheter ablation OTHER SURGICAL HISTORY 08/16/2020 Cardiac catheterization OTHER SURGICAL HISTORY 05/11/2020 Inguinal hernia repair PACEMAKER PLACEMENT Medications Current Outpatient Medications Medication Instructions acetaminophen (TYLENOL 8 HOUR) 650 mg, Every 8 hours PRN acetaminophen (Tylenol) 500 mg tablet Every 6 hours PRN albuterol 90 mcg/actuation inhaler 1-2 puffs, inhalation, Every 6 hours PRN atorvastatin (LIPITOR) 40 mg, oral, Nightly B6/folic/B12/coffee/phosphatid (NEURIVA PLUS BRAIN PERFORMANCE ORAL) 1 tablet, Daily colchicine 0.6 mg, oral, Daily PRN diclofenac sodium (VOLTAREN) 4 g, Topical, 4 times daily PRN empagliflozin (JARDIANCE) 25 mg, oral, Daily fexofenadine (SULAIMAN) 180 mg, oral, Daily FreeStyle Vince 14 Day [place] misc Use as instructed FreeStyle Vince 14 Day Sensor kit 1 each, subcutaneous, Every 14 days, Use as instructed furosemide (LASIX) 20 mg, Daily gabapentin (NEURONTIN) 1,200 mg, oral, 3 times daily, Takes 3 time a day melatonin 5 mg capsule Take by mouth. metFORMIN XR (GLUCOPHAGE-XR) 750 mg, oral, 2 times daily metoprolol tartrate (Lopressor) 50 mg tablet oral, Daily multivitamin (MULTIPLE VITAMINS ORAL) 1 tablet, Daily omeprazole (PRILOSEC) 40 mg, oral, Daily rivaroxaban (XARELTO) 20 mg, oral, Daily tamsulosin (FLOMAX) 0.4 mg, oral, Daily testosterone cypionate (DEPO-TESTOSTERONE) 100 mg, intramuscular, Every 14 days vitamins A,C,P-xshb-vcsyno (Eye Multivitamin) 2,148 mcg-113 mg-45 mg-17.4mg tablet 1 tablet, Daily Allergies No Known Allergies Social History Social History Tobacco Use Smoking status: Never Passive exposure: Never Smokeless tobacco: Never Vaping Use Vaping status: Never Used Substance Use Topics Alcohol use: Never Drug use: Never Family History Family History Problem Relation Name Age of Onset Other (CVA) Mother Diabetes type II Father Diabetes type II Sister Heart attack Brother Coronary artery disease Brother Kidney failure Brother Diabetes type II Brother VITALS Vitals: 07/28/24 0843 BP: 112/52 Pulse: 58 SpO2: 91% Weight Vitals: 07/28/24 0843 Weight: 106 kg (233 lb 9.6 oz) PHYSICAL EXAM Physical Exam Vitals and nursing note reviewed. Constitutional: General: He is not in acute distress. Appearance: He is obese. HENT: Head: Normocephalic and atraumatic. Mouth/Throat: Mouth: Mucous membranes are moist. Pharynx: Oropharynx is clear. Eyes: General: No scleral icterus. Pupils: Pupils are equal, round, and reactive to light. Cardiovascular: Rate and Rhythm: Normal rate. Rhythm irregular. Pulses: Normal pulses. Heart sounds: Normal heart sounds, S1 normal and S2 normal. No murmur heard. No friction rub. Pulmonary: Effort: Pulmonary effort is normal. Breath sounds: Normal breath sounds. Abdominal: General: Bowel sounds are normal. There is no distension. Palpations: Abdomen is soft. Tenderness: There is no abdominal tenderness. Musculoskeletal: General: Normal range of motion. Cervical back: Normal range of motion and neck supple. Right lower leg: No edema. Left lower leg: No edema. Skin: General: Skin is warm and dry. Capillary Refill: Capillary refill takes less than 2 seconds. Findings: No rash. Neurological: General: No focal deficit present. Mental Status: He is alert. Psychiatric: Mood and Affect: Mood normal. Behavior: Behavior normal. Cardiovascular Labs Lab Results Component Value Date HGB 12.9 (L) 06/12/2024 HGB 13.0 (L) 04/25/2024 HGB 12.7 (L) 01/25/2024 PLT 274 06/12/2024 WBC 7.1 06/12/2024 NA 140 06/12/2024 K 4.2 06/12/2024 CREATININE 1.05 06/12/2024 CREATININE 1.02 04/25/2024 CREATININE 0.97 01/25/2024 BUN 16 06/12/2024 CALCIUM 8.7 06/12/2024 INR 1.4 (H) 03/16/2023 BNP 548 (H) 06/12/2024 TROPHS 5 06/12/2024 TROPHS <3 08/25/2022 TROPHS <3 08/25/2022 LDLF 55 10/03/2022 Echocardiogram Results for orders placed during the hospital encounter of 04/08/24 Transthoracic Echo (TTE) Complete [place] [id number], TRANSTHORACIC ECHOCARDIOGRAM REPORT Patient Name: ROCIO SANDOVAL Reading Physician: [id number] Joel Stroud MD Study Date: 04/08/2024 Ordering Provider: [id number] JOEL STROUD MRN/PID: [id number] Fellow: Nurse: Yaritza Tello RN Date of /Age: 2 1945 / 78 years Investigator Fraud: Trey Severino RDCS Gender: M Additional Staff: Height: 187.96 cm Admit Date: Weight: 105.24 kg Admission Status: Outpatient BSA / BMI: 2.31 m2 / 29.79 Department Location: [facility] Echo Lab kg/m2 Blood Pressure: 128 /72 mmHg Study Type: TRANSTHORACIC ECHO (TTE) COMPLETE Diagnosis/ICD: Unspecified systolic (congestive) heart failure (CHF)-I50.20 CPT Codes: Echo Complete w Full Doppler-[id number] Study Detail: The following Echo studies were performed: 2D, M-Mode, Doppler and color flow. Definity used as a contrast agent for endocardial border definition and agitated saline used as a contrast agent for intraseptal flow evaluation. Total contrast used for this procedure was 2.00cc mL via IV push. PHYSICIAN INTERPRETATION: Left Ventricle: Left ventricular ejection fraction is mildly decreased, calculated by Pleitez's biplane at 42%. The patient is in atrial fibrillation which may influence the estimate of left ventricular function and transvalvular flows. There is global hypokinesis of the left ventricle with minor regional variations. The left ventricular cavity size is normal. Abnormal (paradoxical) septal motion, consistent with RV pacemaker. Left ventricular diastolic filling was indeterminate. Left Atrium: The left atrium is mildly dilated. A bubble study using agitated saline was performed. Bubble study is negative. Right Ventricle: The right ventricle is moderately enlarged. There is normal right ventricular global systolic function. A device is visualized in the right ventricle. Right Atrium: The right atrium is normal in size. Aortic Valve: The aortic valve is trileaflet. The aortic valve dimensionless index is 0.41. There is no evidence of aortic valve regurgitation. The peak instantaneous gradient of the aortic valve is 8.3 mmHg. The mean gradient of the aortic valve is 5.0 mmHg. Mitral Valve: The mitral valve is normal in structure. There is no evidence of mitral valve regurgitation. Tricuspid Valve: The tricuspid valve is structurally normal. There is mild tricuspid regurgitation. Pulmonic Valve: The pulmonic valve is structurally normal. There is no indication of pulmonic valve regurgitation. Pericardium: Small pericardial effusion localized near the left ventricle. Aorta: The aortic root is normal. Systemic Veins: The inferior vena cava appears dilated, with IVC inspiratory collapse less than 50%. CONCLUSIONS: 1. Left ventricular ejection fraction is mildly decreased, calculated by Pleitez's biplane at 42%. 2. There is global hypokinesis of the left ventricle with minor regional variations. 3. Left ventricular diastolic filling was indeterminate. 4. Abnormal septal motion consistent with RV pacemaker. 5. There is normal right ventricular global systolic function. 6. Moderately enlarged right ventricle. 7. Compared to prior echocardiogram dated 06/02/2021: Ejection fraction has declined. 8. The patient is in atrial fibrillation which may influence the estimate of left ventricular function and transvalvular flows. QUANTITATIVE DATA SUMMARY: 2D MEASUREMENTS: Normal Ranges: Ao Root d: 3.60 cm (2.0-3.7cm) LAs: 4.50 cm (2.7-4.0cm) IVSd: 1.10 cm (0.6-1.1cm) LVPWd: 1.05 cm (0.6-1.1cm) LVIDd: 5.90 cm (3.9-5.9cm) LVIDs: 3.64 cm LV Mass Index: 113.9 g/m2 LV % FS 38.3 % LA VOLUME: Normal Ranges: LA Vol A4C: 97.7 ml (22+/-6mL/m2) LA Vol A2C: 76.0 ml LA Vol BP: 90.4 ml LA Vol Index A4C: 42.2ml/m2 LA Vol Index A2C: 32.9 ml/m2 LA Vol Index BP: 39.1 ml/m2 LA Area A4C: 28.9 cm2 LA Area A2C: 24.3 cm2 LA Major Barnhart A4C: 7.3 cm LA Major Barnhart A2C: 6.6 cm LA Volume Index: 41.7 ml/m2 LA Vol A4C: 96.3 ml LA Vol A2C: 74.2 ml LA Vol Index BSA: 36.8 ml/m2 LV SYSTOLIC FUNCTION BY 2D PLANIMETRY (MOD): Normal Ranges: EF-A4C View: 39 % (>=55%) EF-A2C View: 46 % EF-Biplane: 42 % LV EF Reported: 42 % AORTIC VALVE: Normal Ranges: AoV Vmax: 1.44 m/s (<=1.7m/s) AoV Peak P.3 mmHg (<20mmHg) AoV Mean P.0 mmHg (1.7-11.5mmHg) LVOT Max Marin: 0.64 m/s (<=1.1m/s) AoV VTI: 33.90 cm (18-25cm) LVOT VTI: 14.00 cm LVOT Diameter: 2.10 cm (1.8-2.4cm) AoV Area, VTI: 1.43 cm2 (2.5-5.5cm2) AoV Area,Vmax: 1.55 cm2 (2.5-4.5cm2) AoV Dimensionless Index: 0.41 RIGHT VENTRICLE: RV Basal 5.19 cm RV Mid 3.66 cm RV Major 9.2 cm TAPSE: 23.1 mm RV s' 0.12 m/s TRICUSPID VALVE/RVSP: Normal Ranges: Peak TR Velocity: 2.80 m/s RV Syst Pressure: 34 mmHg (< 30mmHg) [id number] Joel Stroud MD Electronically signed on 04/08/2024 at 9:23:41 AM Final The ASCVD Risk score (Flint DK, et al., 2019) failed to calculate for the following reasons: The 2019 ASCVD risk score is only valid for ages 40 to 79 Low Risk: <5% Borderline Risk: 5%-7.4% Intermediate Risk: 7.5% - 19.9% High Risk: >20% If your symptoms worsen or progress please go directory to your nearest emergency department for evaluation. Thank you for this interesting clinical case and allowing me to participate in the care of this patient. Please reach me out if you have any questions or if you need any clarifications regarding this patient's care. Disclaimer: This note was dictated by speech recognition, and every effort has been made to prevent any error in scrum project manager, however minor errors may be present Octavio Marmolejo, MSN, BUTCHER HELPER, ACNPC, CCRN Advanced Practice Provider, Nurse Practitioner Division of Cardiovascular Medicine [facility] documented in this encounter [facility] Work Phone: 07-17-2024 History of Present illness Narrative Subjective Patient ID: Rocio Sandoval is a 78 y.o. male who presents for Follow-up (FOLLOW UP ON LEFT L5/S1 TFESI DONE ON 05/28/24 HE HAD GOOD RELIEF UP UNTIL 2 WEEKS AGO, HE GETS A SHARP THROBBING PAIN FROM HIS LEFT HIP DOWN TO HIS TOES, IT WILL HAPPEN WHEN HE IS LAYING DOWN IN BED OR SITTING IN HIS RECLINER, HE WILL TAKE TYLENOL ARTHRITIS AND GET SOME RELIEF AFTER AN HOUR, ). HEAT FOR RELIEF IN [place] WITH VIBRATION, HE USES A THUMPER MASSAGER ON HIS HIP FOR RELIEF, HE DID SEE A CHIROPRACTOR A COUPLE DAYS AGO WHICH INCREASED HIS PAIN, NO LOSS OF BOWEL OR BLADDER, PAIN SCORE 10/10, RACHEL= 58%, COMM=8, DEP NO, FALLS NO, SMOKING NO Glenny Rivers CMA 07/17/24 9:54 AM Patient is an 78-year-old male. He presents today for follow-up after undergoing a left-sided L5-S1 transforaminal epidural steroid injection. This is done on 05/28/2024. Gave him 75 to 90% relief for about 6 weeks when afforded him about 2 weeks ago the pain started to return. He has lower back pain with left radiating leg pain. This affects his ambulatory status. This affects his quality of life. This affects his activities. Prior to that he underwent L4-5 epidural steroid injection. This was done on 03/28/2024. Gave him significant relief for a few days but nothing more significant than that. At this time, he rates his discomfort a 4-10/10. The more he is up and active the worst it gets. He is is Tylenol and gabapentin. He uses 800 mg 3 times a day. He tolerates this well. No side effects. He takes this as prescribed and wonders well secondary to try to get some relief. Review of Systems Constitutional: Negative. HENT: Negative. Eyes: Negative. Respiratory: Negative. Cardiovascular: Negative. Gastrointestinal: Negative. Endocrine: Negative. Genitourinary: Negative. Musculoskeletal: Positive for arthralgias, back pain, gait problem and myalgias. Skin: Negative. Allergic/Immunologic: Negative. Neurological: Positive for weakness and numbness. Hematological: Negative. Psychiatric/Behavioral: Negative. Objective Physical Exam Vitals and nursing note reviewed. Constitutional: General: He is not in acute distress. Appearance: Normal appearance. He is not ill-appearing. HENT: Head: Normocephalic and atraumatic. Right Ear: External ear normal. Left Ear: External ear normal. Nose: Nose normal. Mouth/Throat: Pharynx: Oropharynx is clear. Eyes: Conjunctiva/sclera: Conjunctivae normal. Cardiovascular: Rate and Rhythm: Normal rate and regular rhythm. Pulses: Normal pulses. Pulmonary: Effort: Pulmonary effort is normal. Breath sounds: Normal breath sounds. Musculoskeletal: General: Normal range of motion. Cervical back: Normal range of motion. Comments: 5/5 lower extremity strength Skin: General: Skin is warm and dry. Neurological: General: No focal deficit present. Mental Status: He is alert and oriented to person, place, and time. Mental status is at baseline. Psychiatric: Mood and Affect: Mood normal. Behavior: Behavior normal. Thought Content: Thought content normal. Judgment: Judgment normal. MR lumbar spine wo IV contrast Status: Final result PACS Images Show images for MR lumbar spine wo IV contrast Signed by Signed Time Phone Pager Rocio Go MD 09/24/2023 13:33 [id number] Exam Information Status Exam Begun Exam Ended Final 09/24/2023 11:33 09/24/2023 12:02 Study Result Narrative & Impression Interpreted By: Rocio Go, STUDY: MR LUMBAR SPINE WO IV CONTRAST performed 09/24/2023 12:02 pm INDICATION: Signs/Symptoms:lower back and leg pain. COMPARISON: Lumbar spine radiographs dated 08/07/2023. MRI lumbar spine performed 03/31/2021. ACCESSION NUMBER(S): [id number] ORDERING CLINICIAN: REGGIE ARAGON TECHNIQUE: Multiplanar multisequence MR imaging of the lumbar spine performed without intravenous contrast. Sagittal T1, T2, STIR, axial T1 and T2 weighted images of the lumbar spine were acquired. FINDINGS: Segmentation: Partially formed S1-S2 disc. 5 non rib-bearing lumbar vertebral bodies are designated on this examination. Conus: The lower thoracic cord appears unremarkable. The conus terminates at the L2 vertebral body level. Cauda equina are unremarkable. Epidural fluid: None. Alignment: Mild rotatory levo scoliosis as evident on localizer imaging with apex at L2-L3. Lumbar alignment is otherwise maintained. Vertebral bodies: Minimal chronic anterior wedging of T12 and L1. Lumbar vertebral body heights are otherwise maintained. Marrow signal: Type 2 Modic endplate signal change posteriorly at L2-L3. No focal STIR hyperintensity/marrow edema. Intervertebral discs: Tiny Schmorl's node components at T11-T12. Moderate multilevel degenerative disc height loss. Multilevel disc desiccation. Probable vacuum disc components at L3-L4 and L4-L5. Degenerative change: T12-L1: Mild bilateral facet arthropathy with ligamentum flavum hypertrophy. Minimal disc bulge with tiny left subarticular disc osteophyte protrusion component. Left lateral recess narrowing with no additional spinal canal stenosis. No neural foraminal narrowing. L1-2: Mild facet arthropathy with ligamentum flavum hypertrophy. No spinal canal stenosis or neural foraminal narrowing. L2-3: There is suggestion of previous right hemilaminectomy. Bilateral facet arthropathy. Mrec-fd-xseqlxmj disc bulge with hypertrophic endplate spurring. Mild narrowing of the lateral recesses without spinal canal stenosis. Mild bilateral neural foraminal narrowing. L3-4: Possible remote right hemilaminectomy. Mild bilateral facet arthropathy. Mild disc bulge and endplate spurring. Narrowing of the lateral recesses without additional spinal canal stenosis. Mild bilateral neural foraminal narrowing. L4-5: Moderate facet arthropathy with ligamentum flavum hypertrophy. Previous right facet synovial cyst is no longer definitively visualized. Moderate disc bulge with hypertrophic endplate spurring. Moderate trefoil narrowing of the thecal sac and lateral recesses. Moderate fcrx-loxhokn-gizq-right neural foraminal narrowing with facet arthropathy contacting the exiting left L4 nerve root. L5-S1: Mild facet arthropathy. Mild disc bulge with trace posterior fissuring. Similar left lateral recess narrowing. No additional spinal canal stenosis. No substantial neural foraminal narrowing. Soft tissues: Incomplete visualization of a large, exophytic, cystic appearing lesion arising from the left kidney. Fatty atrophy of the posterior paraspinal musculature. IMPRESSION: Similar to minimally worsened lumbar degenerative change. At L4-L5 the previously identified right facet synovial cyst is no longer clearly delineated. There is moderate spinal canal stenosis/lateral recess narrowing with moderate eijf-ikfqoin-zlvy-right neural foraminal narrowing with facet osteophyte contacting/possibly impinging the exiting left L4 nerve root. MACRO: None Signed by: Rocio Go 09/24/2023 1:33 PM Dictation workstation: [id number] Assessment/Plan Diagnoses and all orders for this visit: 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 stenosis - MR lumbar spine wo IV contrast; Future - gabapentin (Neurontin) 800 mg tablet; Take 1.5 tablets (1,200 mg) by mouth 3 times a day. Takes 3 time a day Sacroiliitis (CMS-HCC) - gabapentin (Neurontin) 800 mg tablet; Take 1.5 tablets (1,200 mg) by mouth 3 times a day. Takes 3 time a day Generalized osteoarthritis of multiple sites - gabapentin (Neurontin) 800 mg tablet; Take 1.5 tablets (1,200 mg) by mouth 3 times a day. Takes 3 time a day Chronic bilateral low back pain with bilateral sciatica - MR lumbar spine wo IV contrast; Future - gabapentin (Neurontin) 800 mg tablet; Take 1.5 tablets (1,200 mg) by mouth 3 times a day. Takes 3 time a day Osteoarthritis of spine with radiculopathy, lumbosacral region - gabapentin (Neurontin) 800 mg tablet; Take 1.5 tablets (1,200 mg) by mouth 3 times a day. Takes 3 time a day Patient is an 78-year-old male with the above-mentioned medical diagnoses following up today after undergoing a left-sided L5-S1 transforaminal epidural steroid injection that did give him relief. It gave him 75 to 90% relief for about 6 weeks but unfortunate, nothing more significant than that. Prior to that he underwent an L4-5 epidural steroid injection with short-lived relief. At this time, we reviewed his MRI. We discussed different options. He is going to consider looking into decompression options through a local facility. We discussed other injection options at this time, he wants looking to decompression. We also discussed referral to a surgeon. He may consider this. At this time, based on the potential surgical referral and the decompression that he wants to undergo as well as the pain that he is still experiencing and the fact that his MRI is almost a-year-old I recommended obtaining an updated MRI scan for possible other injection options versus the surgical but is canceled the referral that was already discussed. We are also going to increase the gabapentin. He is going to go to 1200 mg 3 times a day. OARRS reviewed. Refill sent documented in this encounter [facility] Work Phone: 07-16-2024 Instructions Monty Julien CNP - 07/16/2024 10:56 AM EST Call office if you have any significant symptom changes between visits/lab draws If we decide to start methimazole for your thyroid, r/g the medication: Methimazole WARNING/CAUTION: Possible side effects of methimazole including liver and white blood cell abnormalities. Even though it may be rare, some people may have very bad and sometimes deadly side effects when taking a drug. Do not take methimazole and call our office right away (go to the emergency room if you are having any severe symptom) if you have any of the following signs or symptoms that may be related to a very bad side effect: -Signs of an allergic reaction, like rash; hives; itching; red, swollen, blistered, or peeling skin with or without fever; wheezing; tightness in the chest or throat; trouble breathing or talking; unusual hoarseness; or swelling of the mouth, face, lips, tongue, or throat. -Signs of infection like fever, chills, very bad sore throat, ear or sinus pain, cough, more sputum or change in color of sputum, pain with passing urine, mouth sores, or wound that will not heal. -Signs of liver problems like dark urine, feeling tired, not hungry, upset stomach or stomach pain, light-colored stools, throwing up, or yellow skin or eyes. documented in this encounter [facility] 07-16-2024 Note Reason for visit/chi ef complaint: hyperthyroidism. Date: 07/16/2024 Referring Provider: Tye Anne* Primary Care Provider: Tye Anne MD HPI: Mr. Sandoval is a 78 y.o. male with hx of a-fib (dx 2020: cardioversion, amiodarone therapy~ 2 years-discontinued 05/25 and started metoprolol, ablation, PM, Xarelto), BPH, carpal tunnel, kidney stones, depression, CAD, PAD, HTN, GERD, HLD, ALISHA, OA, type 2 DM, venous insufficiency who was referred here by PCP for hyperthyroidism. Thyrotoxicosis on lab evaluation was initially found in 05/25 with suppressed TSH and elevated free T4. Repeat lab pattern found in June 2024 and patient was subsequently referred to endocrinology.Patient denies previous history of any type of thyroid problems. TSH levels in April 2023 and October 2023 were within normal limits. Patient has taken amiodarone since approximately 2021 for atrial fibrillation. This was stopped by his artist blacksmith in May of 2024 (started metoprolol); there is notation of the suppressed TSH by artist blacksmith note (Dr. Jimenez S). Patient's most recent echo in April of 2024 revealed EF 42%; prior 06/21 echo with EF 60-65%. [id number] med stress echo revealed EF estimate 39% without inducible ischemia. Plan is to upgrade patient's pacemaker and have AV obinna ablation on 08/13/24 per review of cardiology note . He takes no thyroid medications. No biotin supplements. Mr. Sandoval endorses fatigue, dry skin, tremors, and diarrhea/hyperdefecation. No constipation, hair loss, muscle weakness/pain, palpitations, heat intolerance, excessive anxiety/nervousness, or weight change. He has red/dry eyes. No bulging eyes or double vision. In regards to mechanical/obstructive symptoms, He endorses neck pain, dysphagia. No neck lump/swelling, neck pain, choking on food, voice changes. He reports no pressure/choking sensation but does have occ globus sensation. Risk factors: -Hx of autoimmune diseases: none -Family hx of thyroid disease/cancer: daughter--thinks overactive thyroid; granddaughter with thyroid nodule possibly; no cancer known -Hx of thyroid surgery: no -Hx of high risk/interfering medications: amiodarone treatment since ~ 2021--amiodarone was stopped 05/25; no lithium; no recent steroids -Recent URI/ no: / NA -Hx of head/neck irradiation: no -Smoking: no Review of Systems: as per HPI, otherwise negative Medical History: Past Medical History: Diagnosis Date A-fib (HCC) Acquired hammer toe Allergy Arthritis Back pain Cataract removed Diabetes mellitus, type 2 (HCC) Dizzy spells Foot cramps Foot pain, bilateral Fracture of phalanx of toe Frequent urination GERD (gastroesophageal reflux disease) Hiatal hernia High blood pressure High cholesterol History of stress test 03/08/2018 scheduled at [facility] Hyperthyroidism 05/2024 Kidney stones 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 Nephrolithiasis passed Night sweats Numbness in both hands Obesity OM (onychomycosis) PAD (peripheral artery disease) ([facility]) Peripheral neuropathy numbness fingers, tingling and some numbness left leg and foot Plantar fasciitis right Pneumonia in infectious disease PONV (postoperative nausea and vomiting) Radiculopathy of lumbar region Ringing in ears Shortness of breath on exertion Sinus pain Swollen feet Tinea pedis Tired feet Urinary urgency Venous insufficiency of both lower extremities Vision problem Surgical History: Past Surgical History: Procedure Laterality Date ABLATION WITH PHENOL BACK SURGERY 1960 LUMBAR BURSECTOMY ELBOW Left 01/05/2023 Procedure: Left elbow bursectomy; Surgeon: Elías Hsu MD; Location: Main OR; Service: Orthopedic CARDIAC CATHETERIZATION N/A CARDIAC PACEMAKER PLACEMENT CATARACT EXT/ECCE Right Catheter ablation N/A COLONOSCOPY X 3 CT COLONOSCOPY 07/16/2022 CT COLONOSCOPY ESOPHAGOGASTRODUODENOSCOPY HERNIA REPAIR Right INGUINAL HERNIA REPAIR INGUINAL OPEN N/A LAMINECTOMY DECOMP LUMBAR MULTI LEVEL Right 03/13/2018 Procedure: RIGHT L2-L5 LAMINECTOMY DECOMPRESSION; Surgeon: Kailey Hilton MD; Location: [facility] Main OR; Service: Orthopedic LUMBAR EPIDURAL INJECTION N/A RETINAL DETACHMENT SURGERY TOTAL KNEE ARTHROPLASTY Left 06/2016 Family History: Family History Problem Relation Age of Onset Stroke Mother 48 cause of Heart attack Brother Heart disease Brother 60 Diabetes Brother Heart failure Brother Kidney failure Brother Diabetes Sister No Known Problems Father Surgical 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s Neg Hx Anesthesia problems Neg Hx Clotting disorder Neg Hx Deep vein thrombosis Neg Hx Pulmonary embolism Neg Hx Social History: Social History Socioeconomic History Marital status: Tobacco Use Smoking status: Never Smokeless tobacco: Never Vaping Use Vapi (more content not included)... [facility] 07-16-2024 History of Present illness Narrative Images from the original note were not included. Reason for visit/chief complaint: hyperthyroidism. Date: 07/16/2024 Referring Provider: Tye Anne* Primary Care Provider: Tye Anne MD HPI: Mr. Sandoval is a 78 y.o. male with hx of a-fib (dx 2020: cardioversion, amiodarone therapy~ 2 years-discontinued 05/25 and started metoprolol, ablation, PM, Xarelto), BPH, carpal tunnel, kidney stones, depression, CAD, PAD, HTN, GERD, HLD, ALISHA, OA, type 2 DM, venous insufficiency who was referred here by PCP for hyperthyroidism. Thyrotoxicosis on lab evaluation was initially found in 05/25 with suppressed TSH and elevated free T4. Repeat lab pattern found in June 2024 and patient was subsequently referred to endocrinology.Patient denies previous history of any type of thyroid problems. TSH levels in April 2023 and October 2023 were within normal limits. Patient has taken amiodarone since approximately 2021 for atrial fibrillation. This was stopped by his artist blacksmith in May of 2024 (started metoprolol); there is notation of the suppressed TSH by artist blacksmith note (Dr. Jimenez S). Patient's most recent echo in April of 2024 revealed EF 42%; prior 06/21 echo with EF 60-65%. [id number] med stress echo revealed EF estimate 39% without inducible ischemia. Plan is to upgrade patient's pacemaker and have AV obinna ablation on 08/13/24 per review of cardiology note . He takes no thyroid medications. No biotin supplements. Mr. Sandoval endorses fatigue, dry skin, tremors, and diarrhea/hyperdefecation. No constipation, hair loss, muscle weakness/pain, palpitations, heat intolerance, excessive anxiety/nervousness, or weight change. He has red/dry eyes. No bulging eyes or double vision. In regards to mechanical/obstructive symptoms, He endorses neck pain, dysphagia. No neck lump/swelling, neck pain, choking on food, voice changes. He reports no pressure/choking sensation but does have occ globus sensation. Risk factors: -Hx of autoimmune diseases: none -Family hx of thyroid disease/cancer: daughter--thinks overactive thyroid; granddaughter with thyroid nodule possibly; no cancer known -Hx of thyroid surgery: no -Hx of high risk/interfering medications: amiodarone treatment since ~ 2021--amiodarone was stopped 05/25; no lithium; no recent steroids -Recent URI/ no: / NA -Hx of head/neck irradiation: no -Smoking: no Review of Systems: as per HPI, otherwise negative Medical History: Past Medical History: Diagnosis Date A-fib ([facility]) Acquired hammer toe Allergy Arthritis Back pain Cataract removed Diabetes mellitus, type 2 ([facility]) Dizzy spells Foot cramps Foot pain, bilateral Fracture of phalanx of toe Frequent urination GERD (gastroesophageal reflux disease) Hiatal hernia High blood pressure High cholesterol History of stress test 03/08/2018 scheduled at [facility] Hyperthyroidism 05/2024 Kidney stones 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 Nephrolithiasis passed Night sweats Numbness in both hands Obesity OM (onychomycosis) PAD (peripheral artery disease) ([facility]) Peripheral neuropathy numbness fingers, tingling and some numbness left leg and foot Plantar fasciitis right Pneumonia in infectious disease PONV (postoperative nausea and vomiting) Radiculopathy of lumbar region Ringing in ears Shortness of breath on exertion Sinus pain Swollen feet Tinea pedis Tired feet Urinary urgency Venous insufficiency of both lower extremities Vision problem Surgical History: Past Surgical History: Procedure Laterality Date ABLATION WITH PHENOL BACK SURGERY 1960 LUMBAR BURSECTOMY ELBOW Left 01/05/2023 Procedure: Left elbow bursectomy; Surgeon: Elías Hsu MD; Location: Main OR; Service: Orthopedic CARDIAC CATHETERIZATION N/A CARDIAC PACEMAKER PLACEMENT CATARACT EXT/ECCE Right Catheter ablation N/A COLONOSCOPY X 3 CT COLONOSCOPY 07/16/2022 CT COLONOSCOPY ESOPHAGOGASTRODUODENOSCOPY HERNIA REPAIR Right INGUINAL HERNIA REPAIR INGUINAL OPEN N/A LAMINECTOMY DECOMP LUMBAR MULTI LEVEL Right 03/13/2018 Procedure: RIGHT L2-L5 LAMINECTOMY DECOMPRESSION; Surgeon: Kailey Hilton MD; Location: [facility] Main OR; Service: Orthopedic LUMBAR EPIDURAL INJECTION N/A RETINAL DETACHMENT SURGERY TOTAL KNEE ARTHROPLASTY Left 06/2016 Family History: Family History Problem Relation Age of Onset Stroke Mother 48 cause of Heart attack Brother Heart disease Brother 60 Diabetes Brother Heart failure Brother Kidney failure Brother Diabetes Sister No Known Problems Father Surgical 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s Neg Hx Anesthesia problems Neg Hx Clotting disorder Neg Hx Deep vein thrombosis Neg Hx Pulmonary embolism Neg Hx Social History: Social History Socioeconomic History Marital status: Tobacco Use Smoking status: Never Smokeless tobacco: Never Vaping Use Vaping status: Never Used Substance and Sexual Activity Alcohol use: No Alcohol/week: 0.0 standard drinks of alcohol Drug use: No Allergies: Allergies Allergen Reactions Morphine Nausea and vomiting He was 15 when he had a reaction. It was actually anesthetics. No Known Allergies Current Medications: Current Outpatient Medications Medication Sig Dispense Refill acetaminophen (TYLENOL ORAL) Take 650 mg by mouth. ammonium lactate (AMLACTIN) 12 % cream Apply topically 2 (two) times a day . 385 g 0 atorvastatin (LIPITOR) 40 MG tablet Take 1 (one) tablet (40 mg total) by mouth nightly . blood sugar diagnostic (glucose blood) strips by Miscellaneous route . colchicine 0.6 mg tablet Take 1 (one) tablet (0.6 mg total) by mouth daily as needed . empagliflozin (Jardiance) 25 mg Tab Take by mouth . fexofenadine (SULAIMAN) 180 MG tablet TAKE 1 TABLET (180 MG) BY MOUTH ONCE DAILY. furosemide (LASIX) 20 MG tablet Take 1 (one) tablet (20 mg total) by mouth every other day . gabapentin (NEURONTIN) 400 MG capsule Take 1 (one) capsule (400 mg total) by mouth 3 (three) times a day . MELATONIN ORAL Take by mouth . metFORMIN (GLUCOPHAGE-XR) 750 MG 24 hr tablet Take 1 (one) tablet (750 mg total) by mouth 2 (two) times a day Take 1 tab bid . mupirocin (BACTROBAN) 2 % ointment Apply topically 3 (three) times a day . 22 g 0 rivaroxaban (XARELTO) 20 mg Tab Take 1 (one) tablet (20 mg total) by mouth daily . tamsulosin (FLOMAX) 0.4 mg capsule every morning before breakfast . testosterone cypionate (DEPOTESTOTERONE CYPIONATE) 100 mg/mL injection Inject 1 mL (100 mg total) into the shoulder, thigh, or buttocks every 14 (fourteen) days . therapeutic multivitamin (THERAGRAN) tablet Take 1 (one) tablet by mouth daily . vit C,I-Nv-laquz-lutein-zeaxan (Eye Health Vitamin-Mineral) 250-90-10-1 mg cap Take by mouth . amiodarone (CORDARONE) 200 MG tablet Take 1 (one) tablet (200 mg total) by mouth at bedtime . (Patient not taking: Reported on 07/16/2024 .) omeprazole (PRILOSEC) 40 MG capsule (Patient not taking: Reported on 07/16/2024 .) traZODone (DESYREL) 50 MG tablet TAKE 1 2 (ONE HALF) TABLET BY MOUTH ONCE DAILY AT BEDTIME (Patient not taking: Reported on 05/26/2024 .) vit B cplxC 90-xosoobr-mce-Q10 (Brain Yonfn-IQX-Fe Q10) 140-10-10 mg Tab Take by mouth . No current facility-administered medications for this visit. Physical Exam: Vitals: BP 120/76 (BP Location: Right arm, Patient Position: Sitting) Wt 106.3 kg (234 lb 6.4 oz) BMI 30.10 kg/m , Body mass index is 30.1 kg/m ., Wt Readings from Last 3 Encounters: 07/16/24 106.3 kg (234 lb 6.4 oz) 09/06/23 98.9 kg (218 lb) 04/30/23 98 kg (216 lb) General/Constitutional: , well-developed and in no distress. Head: atrautmatic, no facial lesions observed Mouth/Throat: mm moist Eyes: no lid retraction (stare), no proptosis, no lid lag, non-icteric, no limitation in eye movement. Neck: supple, normal range of motion. no thyromegaly present, no pain; no bruit; thyroid gland slightly irregular Cardiovascular: normal rate, slightly irregular rhythm, normal heart sounds, minimal edema. Pulmonary/Chest: effort normal and breath sounds normal, no respiratory distress Musculoskeletal: amb with cane, normal muscle mass Neurological: alert and oriented, no focal deficits, tremors markus outstretched hands present, DTRs normal Skin: warm and dry, no rash noted Psychiatric: appropriate affect Lab/Imaging Data: Lab Results Component Value Date WBC 9.77 08/01/2022 HGB 12.4 (L) 08/01/2022 HCT 40.7 (L) 08/01/2022 MCV 94.2 08/01/2022 PLT 370 08/01/2022 No results found for: GLUCOSE, NA, K, CL, BUN, CREATININE No results found for: ALT, AST, GGT, ALKPHOS, BILITOT No results found for: TSH, [id number], THYROIDAB No results found for: PTH, CALCIUM, SEFERINO, PHOS No results found for: LDLCALC, CHOL, HDL, TRIG, CHOLHDL 04/25/23: tsh 3.19 10/23/23: tsh 2.16 05/13/24: TSH 0.03 (0.44-3.98), FT 4 1.45 (0.61-1.12) 06/12/24: TSH 0.02, FT 4 1.67 (0.61-1.12), creat 1.05, gluc 103, egfr 72, lft unremarkable, wbc 7.1, plt 274, normal differential Assessment and plan: Mr. Sandoval is a 78 y.o. male with hx of of a-fib (dx 2020: cardioversion, amiodarone therapy~ 2 years-discontinued 05/25 and started metoprolol, ablation, PM, Xarelto), BPH, carpal tunnel, kidney stones, depression, CAD, PAD, HTN, GERD, HLD, ALISHA, OA, type 2 DM, venous insufficiency, low testosterone (on testerone injections) who was referred here by PCP for hyperthyroidism. Mr. Sandoval has taken amiodarone for a-fib from 2021-05/25. The amiodarone was stopped by cardiology in May of 2024 after TSH was found to be suppressed with elevated FT 4.Ppatient's cardiac evaluation/echo in 04/24 showed persistent A-fib with a new decline in EF. Patient is planned to undergo ablation and PM upgrade in August of 2024. Repeat thyroid levels in June of 2024 showed persistent suppressed TSH and elevated FT4. Patient has no known prior thyroid abnormalities. 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 We did discuss additional possible causes including Graves disease, toxic nodule or thyroiditis. -Today will check TSH, FT4, T3, FT3 and TSI, TRAB -thyroid ultrasound (neck and soft tissue) ordered -If patient's antibodies for Graves' disease are neg, a thyroid uptake and scan would be helpful to further delineate the cause however patient had a nuclear medicine study 06/09/24 so we would not be able to do this for at least another month or so. -We discussed treatment options would depend upon etiology--if AIT, it can be difficult to differentiate between type 1 and type 2 or patient may have mixed AIT. Treatment for both types may be indicated especially in light of current cardiac dysfunction. Will follow-up with patient regarding treatment recommendations once we have additional information. Thank you for the opportunity to participate in the care of Mr. Sandoval. Electronically Signed by: Monty Julien CNP 07/17/24 5:13 PM Endocrinology Return in about 3 months (around 10/14/2024) for Zoltan please, 8 weeks if available. Time spent reviewing chart, during the encounter, putting orders and coordinating care on the encounter day is 75 minutes. documented in this encounter [facility] 07-03-2024 History of Present illness Narrative Subjective Patient ID: Rocio Sandoval is a 78 y.o. male who presents for ER F/U Bronchitis. HPI Was in ER 06/12 for bronchitis, sent home with Z-pack and albuterol Some coughing still, improved from ER, finished antibiotic No headache, chest pain, shortness of breath, dizziness, lightheadedness, or edema In August to adjust pacemaker and ablation Review of Systems Constitutional: Negative for activity change, appetite change, chills, fatigue and fever. HENT: Negative for congestion, postnasal drip, rhinorrhea, sinus pressure, sinus pain and sore throat. Respiratory: Positive for cough. Negative for chest tightness, shortness of breath and wheezing. Cardiovascular: Negative for chest pain, palpitations and leg swelling. Gastrointestinal: Negative for abdominal pain, constipation, diarrhea, nausea and vomiting. Objective BP 118/70 Pulse 66 Ht 1.88 m (6' 2) Wt 105 kg (230 lb 9.6 oz) SpO2 97% BMI 29.61 kg/m Physical Exam Vitals and nursing note reviewed. Constitutional: Appearance: Normal appearance. HENT: Head: Normocephalic and atraumatic. Right Ear: Tympanic membrane, ear canal and external ear normal. Left Ear: Tympanic membrane, ear canal and external ear normal. Nose: Nose normal. Mouth/Throat: Mouth: Mucous membranes are moist. Pharynx: Oropharynx is clear. Cardiovascular: Rate and Rhythm: Normal rate and regular rhythm. Pulses: Normal pulses. Heart sounds: Normal heart sounds. Pulmonary: Effort: Pulmonary effort is normal. Breath sounds: Normal breath sounds. Musculoskeletal: Cervical back: Normal range of motion and neck supple. Skin: General: Skin is warm and dry. Neurological: Mental Status: He is alert. Psychiatric: Mood and Affect: Mood normal. Behavior: Behavior normal. Assessment/Plan Problem List Items Addressed This Visit ICD-10-CM BPH (benign prostatic hyperplasia) N40.0 Relevant Medications tamsulosin (Flomax) 0.4 mg 24 hr capsule Chronic diastolic congestive heart failure I50.32 Relevant Medications empagliflozin (Jardiance) 25 mg GERD (gastroesophageal reflux disease) K21.9 Relevant Medications omeprazole (PriLOSEC) [address] capsule Hyperlipidemia E78.5 Relevant Medications atorvastatin (Lipitor) 40 mg tablet Permanent atrial fibrillation (Multi) I48.21 Relevant Medications rivaroxaban (Xarelto) 20 mg tablet Other Relevant Orders Referral to Endocrinology Type II 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 (Multi) E11.9 Relevant Medications empagliflozin (Jardiance) 25 mg FreeStyle Vince 14 Day Sensor kit metFORMIN XR (Glucophage-XR) 750 mg 24 hr tablet Other Visit Diagnoses Codes Bronchitis - Primary J40 Symptomatically improving, use albuterol as needed. Chronic rhinitis J31.0 Relevant Medications fexofenadine (Sulaiman) 180 mg tablet Hyperthyroidism E05.90 Relevant Orders Referral to Endocrinology documented in this encounter [facility] Work Phone: 06-15-2024 Note Established Patient Visit Yuliet Floyd DPM Patient Name: Rocio Sandoval. . Date of : 1945, 78 y.o.. Gender: male. Subjective: Patient is a pleasant 78-year-old male who presents to clinic concerned about pain to his fifth toe on the right foot. Patient stated he stopped and is concerned about a fracture to the toe. No other pedal complaints. Denies fevers, chills, nausea, vomiting, chest pain, shortness of breath, or any other constitutional symptoms. Past Medical History: Diagnosis Date A-fib ([facility]) Acquired hammer toe Allergy Arthritis Back pain Cataract removed Diabetes mellitus, type 2 ([facility]) Dizzy spells Foot cramps Foot pain, bilateral Fracture of phalanx of toe Frequent urination GERD (gastroesophageal reflux disease) Hiatal hernia High blood pressure High cholesterol History of stress test 03/08/2018 scheduled at [facility] Kidney stones 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 Nephrolithiasis passed Night sweats Numbness in both hands Obesity OM (onychomycosis) PAD (peripheral artery disease) ([facility]) Peripheral neuropathy numbness fingers, tingling and some numbness left leg and foot Plantar fasciitis right Pneumonia in infectious disease PONV (postoperative nausea and vomiting) Radiculopathy of lumbar region Ringing in ears Shortness of breath on exertion Sinus pain Swollen feet Tinea pedis Tired feet Urinary urgency Venous insufficiency of both lower extremities Vision problem Past Surgical History: Procedure Laterality Date ABLATION WITH PHENOL BACK SURGERY 1960 LUMBAR BURSECTOMY ELBOW Left 01/05/2023 Procedure: Left elbow bursectomy; Surgeon: Elías Hsu MD; Location: Main OR; Service: Orthopedic CARDIAC CATHETERIZATION N/A CARDIAC PACEMAKER PLACEMENT CATARACT EXT/ECCE Right Catheter ablation N/A COLONOSCOPY X 3 CT COLONOSCOPY 07/16/2022 CT COLONOSCOPY ESOPHAGOGASTRODUODENOSCOPY HERNIA REPAIR Right INGUINAL HERNIA REPAIR INGUINAL OPEN N/A LAMINECTOMY DECOMP LUMBAR MULTI LEVEL Right 03/13/2018 Procedure: RIGHT L2-L5 LAMINECTOMY DECOMPRESSION; Surgeon: Kailey Hilton MD; Location: [facility] Main OR; Service: Orthopedic LUMBAR EPIDURAL INJECTION N/A RETINAL DETACHMENT SURGERY TOTAL KNEE ARTHROPLASTY Left 06/2016 Physical Examination: BP 134/66 (BP Location: Left arm, Patient Position: Sitting, BP Cuff Size: X-large Adult) Pulse 67 Temp 97 degrees F (36.1 degrees C) (Infrared) General Appearance: Alert, cooperative, no distress, appears stated age. Podiatric Exam Vascular: DP and PT pulses are faintly palpable 1/4. Capillary refill time is less than 3 seconds to distal digits. Skin temperature is warm to cool from proximal tibial tuberosity to distal digit. Neurological: Gross sensation is intact. Protective sensation is intact. Dermatologic: Ecchymosis noted to the right fifth toe. Interdigital spaces are clean dry and intact. Musculoskeletal: Pain on palpation to the right fifth toe. Patient is able to wiggle digits. Ankle joint range of motion is intact. Muscle strength is 5/5 to dorsiflexors, plantar flexors, inverters and everters. Compartments soft and compressible. No calf pain Diagnoses: 1. Contusion of fifth toe of right foot, initial encounter 2. Toe pain, right Imaging: Right foot 3 views weightbearing radiographs were ordered on 05/26/2024 and I personally interpreted them as follows: No appreciable fractures or dislocations noted to the fifth digit Sclerosis noted to the subtalar joint Assessment/Plan: Patient was seen and evaluated. Discussed all clinical findings I ordered, interpreted, and discussed right foot radiographic findings with patient as noted above. Patient has sustained a contusion to the right fifth toe causing him significant pain and discomfort with ambulation. Discussed with patient the importance of stiff supportive shoe gear. Patient may take [id number] anti-inflammatories for pain relief A surgical shoe was dispensed the patient in the office for offloading. All questions were answered to patient satisfaction. Patient understands to call with any questions or concerns. This note was partially created using voice recognition software and is inherently subject to errors including those of syntax and sound-alike substitutions which may escape proofreading. In such instances, original meaning may be extrapolated by contextual derivation. Yuliet Floyd DPM, MS Podiatric Physician & Surgeon AUTHENTICATED BY YULIET FLOYD, ON 06/15/2024 23:17:41 [facility] 06-12-2024 Emergency department Note Chief Complaint Patient presents with Flu Symptoms Pt to ED from walk in clinic, pt c/o left jaw pain, dry cough, sore throat starting yesterday. Pt's has bronchitis. Patient History Past Medical History: Diagnosis Date Benign prostatic hyperplasia without lower urinary tract symptoms 07/08/2021 BPH (benign prostatic hyperplasia) Calculus of kidney 12/30/2019 Bilateral renal stones Carpal tunnel syndrome, right upper limb 12/31/2019 Carpal tunnel syndrome of right wrist Cough 10/06/2022 Depression, unspecified 01/05/2022 Depression Disorder of arteries and arterioles, unspecified 01/05/2022 Peripheral arterial occlusive disease Dizziness 10/06/2022 Essential (primary) hypertension 06/29/2022 Hypertension, essential, benign Gastro-esophageal reflux disease without esophagitis 01/05/2022 GERD (gastroesophageal reflux disease) Hyperlipidemia, unspecified 01/05/2022 Hyperlipemia Influenza A 10/06/2022 Male erectile dysfunction, unspecified 09/03/2019 Erectile dysfunction Obesity, unspecified 08/16/2020 Obesity (BMI 30-39.9) Obstructive sleep apnea (adult) (pediatric) 01/05/2022 ALISHA on CPAP Personal history of diseases of the skin and subcutaneous tissue History of actinic keratosis Personal history of other infectious and parasitic diseases History of onychomycosis Personal history of other infectious and parasitic diseases History of tinea pedis Plantar fascial fibromatosis Plantar fasciitis Polyosteoarthritis, unspecified 09/23/2019 Generalized osteoarthritis of multiple sites Rash of genitalia 10/06/2022 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s (Multi) 01/05/2022 Type II 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 Venous insufficiency (chronic) (peripheral) Venous insufficiency of leg Past Surgical History: Procedure Laterality Date CARDIAC PACEMAKER PLACEMENT 06/2022 INJECTION Left 05/28/2024 Lt L5/S1-S1 TFEIS LUMBAR EPIDURAL INJECTION Bilateral 12/07/2023 Bilat L4/5 TFESI OTHER SURGICAL HISTORY 06/18/2019 Lumbar vertebral fusion OTHER SURGICAL HISTORY 06/18/2019 Retinal detachment repair OTHER SURGICAL HISTORY 06/18/2019 Phacoemulsification of cataract and insertion of intraocular lens OTHER SURGICAL HISTORY 06/18/2019 Circumcision OTHER SURGICAL HISTORY 06/18/2019 Knee replacement OTHER SURGICAL HISTORY 06/18/2019 Sigmoidoscopy flexible OTHER SURGICAL HISTORY 06/18/2019 Dermatological cryotherapy OTHER SURGICAL HISTORY 06/18/2019 Esophagogastroduodenoscopy OTHER SURGICAL HISTORY 06/18/2019 Nail debridement OTHER SURGICAL HISTORY 06/18/2019 Epidural space injection OTHER SURGICAL HISTORY 07/07/2020 Colonoscopy OTHER SURGICAL HISTORY 01/05/2022 Catheter ablation OTHER SURGICAL HISTORY 08/16/2020 Cardiac catheterization OTHER SURGICAL HISTORY 05/11/2020 Inguinal hernia repair PACEMAKER PLACEMENT Family History Problem Relation Name Age of Onset Other (CVA) Mother Diabetes type II Father Diabetes type II Sister Heart attack Brother Coronary artery disease Brother Kidney failure Brother Diabetes type II Brother Social History Social History Narrative Not on file No Known Allergies PMH: Reviewed PSH: Reviewed Social History: Reviewed. Allergies reviewed. HPI: Rocio Sandoval is a 78 y.o. male who presents to the ED today accompanied by his close friend Barbara with complaints of cough, congestion, left jaw pain that has resolved, and sore throat. Was sent here from urgent care/walk-in clinic after he presented there with the symptoms. Symptoms started several days ago. His friend Barbara has been sick with similar type symptoms, diagnosed with bronchitis. He is not a smoker. States he had a stress test done earlier this week but has not had results. States that his jaw pain that he was experiencing while he is at the walk-in clinic has now resolved. He intermittently has shortness of breath and pain above his pacemaker, none currently. He denies leg pain or swelling. REVIEW OF SYSTEMS: All other systems reviewed and negative except as listed in HPI. PHYSICAL EXAM: GENERAL: Vitals noted, no distress. Alert and oriented x 3. Non-toxic. EENT: TMs clear. Posterior oropharynx unremarkable. EOMI, no nystagmus noted. NECK: Supple. No masses. No midline tenderness. No meningeal signs. CARDIAC: Regular rate, rhythm. No murmurs rubs or gallops. No JVD. PULMONARY: Lungs clear and equal bilaterally. No wheezes rales or rhonchi. No respiratory distress. ABDOMEN: Soft, nondistended, and nontender. No peritoneal signs. Bowel sounds are present and normoactive in all 4 quadrants. No pulsatile masses. EXTREMITIES: Mild peripheral edema noted of both lower extremities. SKIN: No rash. Warm, dry, and intact. NEURO: No focal neurologic deficits. Labs Reviewed CBC WITH AUTO DIFFERENTIAL - Abnormal Result Value WBC 7.1 nRBC 0.0 RBC 4.41 (*) Hemoglobin 12.9 (*) Hematocrit 41.3 MCV 94 MCH 29.3 MCHC 31.2 (*) RDW 15.0 (*) Platelets 274 Neutrophils % 65.3 Immature Granulocytes %, Automated 0.1 Lymphocytes % 22.8 Monocytes % 9.1 Eosinophils % 2.1 Basophils % 0.6 Neutrophils Absolute 4.66 Immature Granulocytes Absolute, Automated 0.01 Lymphocytes Absolute 1.63 Monocytes Absolute 0.65 Eosinophils Absolute 0.15 Basophils Absolute 0.04 COMPREHENSIVE METABOLIC PANEL - Abnormal Glucose 103 (*) Sodium 140 Potassium 4.2 Chloride 109 (*) Bicarbonate 26 Anion Gap 9 (*) Urea Nitrogen 16 Creatinine 1.05 eGFR 72 Calcium 8.7 Albumin 3.7 Alkaline Phosphatase 77 Total Protein 6.5 AST 17 Bilirubin, Total 0.6 ALT 16 TSH WITH REFLEX TO FREE T4 IF ABNORMAL - Abnormal Thyroid Stimulating Hormone 0.02 (*) Narrative: TSH testing is performed using different testing methodology at [facility] than at other [facility]. Direct result comparisons should only be made within the same method. B-TYPE NATRIURETIC PEPTIDE - Abnormal BNP 548 (*) Narrative: <100 pg/mL - Heart failure unlikely 100-299 pg/mL - Intermediate probability of acute heart failure exacerbation. Correlate with clinical context and patient history. >=300 pg/mL - Heart Failure likely. Correlate with clinical context and patient history. BNP testing is performed using different testing methodology at [facility] than at other [facility]. Direct result comparisons should only be made within the same method. THYROXINE, FREE - Abnormal Thyroxine, Free 1.45 (*) Narrative: Thyroxine Free testing is performed using different testing methodology at [facility] than at other [facility]. Direct result comparisons should only be made within the same method. Biotin can cause falsely elevated free T4 results. Patients taking a Biotin dose of up to 10 mg/day should refrain from taking Biotin for 24 hours before sample collection. Patient taking a Biotin dose of >10 mg/day should consult with their physician or the laboratory before the blood draw. MAGNESIUM - Normal Magnesium 2.26 TROPONIN I, HIGH SENSITIVITY - Normal Troponin I, High Sensitivity 5 Narrative: Less than 99th percentile of normal range cutoff- Female and children under 18 years old <14 ng/L; Male <21 ng/L: Negative Repeat testing should be performed if clinically indicated. Female and children under 18 years old 14-50 ng/L; Male 21-50 ng/L: Consistent with possible cardiac damage and possible increased clinical risk. Serial measurements may help to assess extent of myocardial damage. >50 ng/L: Consistent with cardiac damage, increased clinical risk and myocardial infarction. Serial measurements may help assess extent of myocardial damage. NOTE: Children less than 1 year old may have higher baseline troponin levels and results should be interpreted in conjunction with the overall clinical context. NOTE: Troponin I testing is performed using a different testing methodology at [facility] than at [facility]. Direct result comparisons should only be made within the same method. SARS-COV-2 PCR - Normal Coronavirus 2018, PCR Not Detected Narrative: This assay has received FDA Emergency Use Authorization (EUA) and is only authorized for the duration of time that circumstances exist to justify the authorization of the emergency use of in vitro diagnostic tests for the detection of SARS-CoV-2 virus and/or diagnosis of COVID-19 infection under section 564(b)(1) of the Act, 21 U.S.C. 360bbb-3(b)(1). This assay is an in vitro diagnostic nucleic acid amplification test for the qualitative detection of SARS-CoV-2 from nasopharyngeal specimens and has been validated for use at [facility]. Negative results do not preclude COVID-19 infections and should not be used as the sole basis for diagnosis, treatment, or other management decisions. INFLUENZA A AND B PCR - Normal Flu A Result Not Detected Flu B Result Not Detected Narrative: This assay is an in vitro diagnostic multiplex nucleic acid amplification test for the detection and discrimination of Influenza A & B from nasopharyngeal specimens, and has been validated for use at [facility]. Negative results do not preclude Influenza A/B infections, and should not be used as the sole basis for diagnosis, treatment, or other management decisions. If Influenza A/B and RSV PCR results are negative, testing for Parainfluenza virus, Adenovirus and Metapneumovirus is routinely performed for [facility] pediatric [place]ology and intensive care inpatients, and is available on other patients by placing an add-on request. URINALYSIS WITH REFLEX CULTURE AND MICROSCOPIC Narrative: The following orders were created for panel order Urinalysis with Reflex Culture and Microscopic. Procedure Abnormality Status --------- ------ Urinalysis with Reflex C...[[id number]] In process Extra Urine Llanos Tube[[id number]] In process Please view results for these tests on the individual orders. URINALYSIS WITH REFLEX CULTURE AND MICROSCOPIC EXTRA URINE LLANOS TUBE XR chest 2 views Final Result Suspected subpleural fibrotic changes in the lungs relatively similar in appearance compared to 05/13/2024. No definite new areas of consolidation. Signed by Mk Vasquez MD Medical Decision Making Amount and/or Complexity of Data Reviewed Labs: ordered. Radiology: ordered. ECG/medicine tests: ordered. EKG interpreted by myself shows V-paced rhythm with rate of 94, occasional PVC. Left axis. QRS interval 200. QT interval 502. QTc interval 517. Non-specific ST-T wave changes. No acute ischemia or injury pattern. ED COURSE: This patient was seen and examined by myself and Dr. Flores. He is placed on a continuous child care provider with pulse oximetry monitoring. Old records and EKGs are obtained and reviewed. IV heplock is established, labs are obtained and noted above. COVID-negative. Flu negative. CMP is essentially unremarkable as is the CBC with differential except for some mild anemia. Thyroid levels were requested by the patient as he has an upcoming appt with his PCP and needed this rechecked prior to. CXR without evidence of pneumonia. He's reassured. Started on antibiotics/inhaler and encouraged PCP followup. He is discharged home in a stable condition with computer instructions given and is encouraged to return to the ER for any new or worsening symptoms. Heart score: 5 Differential Diagnoses Considered: Pneumonia, COVID, flu, bronchitis, pleurisy, IA/NSTEMI, CHF exacerbation, COPD, asthma Chronic Medical Conditions Significantly Affecting Care: see above External Records Reviewed: I reviewed recent and relevant outside records including: PCP notes, prior discharge summary, previous radiologic studies Diagnostic testing considered: blood, cxr, EKG, urine, nasal swab Escalation of Care: Appropriate for outpatient management Prescription Drug Consideration: Antibiotics/inhaler DIAGNOSTIC IMPRESSION: #1 bronchitis SANDY Lucero 06/12/24 1450 Cosigned by Robbin Flores MD at 06/12/2024 3:12 PM EST Associated attestation - Robbin Flores MD - 06/12/2024 3:12 PM EST This patient was seen by the advanced practice provider. I have personally performed a substantive portion of the encounter. I have seen and examined the patient; agree with the workup, evaluation, MDM, management and diagnosis. The care plan has been discussed. I personally saw the patient and made/approved the management plan and take responsibility for the patient management. History: With a cough Exam: Diminished breath sounds but no dyspnea MDM: Workup is negative for COVID flu and pneumonia patient will be treated for presumed bronchitis documented in this encounter [facility] Work Phone: 06-12-2024 Physician Emergency department Note Chief Complaint Patient presents with Flu Symptoms Pt to ED from walk in clinic, pt c/o left jaw pain, dry cough, sore throat starting yesterday. Pt's has bronchitis. Patient History Past Medical History: Diagnosis Date Benign prostatic hyperplasia without lower urinary tract symptoms 07/08/2021 BPH (benign prostatic hyperplasia) Calculus of kidney 12/30/2019 Bilateral renal stones Carpal tunnel syndrome, right upper limb 12/31/2019 Carpal tunnel syndrome of right wrist Cough 10/06/2022 Depression, unspecified 01/05/2022 Depression Disorder of arteries and arterioles, unspecified 01/05/2022 Peripheral arterial occlusive disease Dizziness 10/06/2022 Essential (primary) hypertension 06/29/2022 Hypertension, essential, benign Gastro-esophageal reflux disease without esophagitis 01/05/2022 GERD (gastroesophageal reflux disease) Hyperlipidemia, unspecified 01/05/2022 Hyperlipemia Influenza A 10/06/2022 Male erectile dysfunction, unspecified 09/03/2019 Erectile dysfunction Obesity, unspecified 08/16/2020 Obesity (BMI 30-39.9) Obstructive sleep apnea (adult) (pediatric) 01/05/2022 ALISHA on CPAP Personal history of diseases of the skin and subcutaneous tissue History of actinic keratosis Personal history of other infectious and parasitic diseases History of onychomycosis Personal history of other infectious and parasitic diseases History of tinea pedis Plantar fascial fibromatosis Plantar fasciitis Polyosteoarthritis, unspecified 09/23/2019 Generalized osteoarthritis of multiple sites Rash of genitalia 10/06/2022 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s (Multi) 01/05/2022 Type II 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 Venous insufficiency (chronic) (peripheral) Venous insufficiency of leg Past Surgical History: Procedure Laterality Date CARDIAC PACEMAKER PLACEMENT 06/2022 INJECTION Left 05/28/2024 Lt L5/S1-S1 TFEIS LUMBAR EPIDURAL INJECTION Bilateral 12/07/2023 Bilat L4/5 TFESI OTHER SURGICAL HISTORY 06/18/2019 Lumbar vertebral fusion OTHER SURGICAL HISTORY 06/18/2019 Retinal detachment repair OTHER SURGICAL HISTORY 06/18/2019 Phacoemulsification of cataract and insertion of intraocular lens OTHER SURGICAL HISTORY 06/18/2019 Circumcision OTHER SURGICAL HISTORY 06/18/2019 Knee replacement OTHER SURGICAL HISTORY 06/18/2019 Sigmoidoscopy flexible OTHER SURGICAL HISTORY 06/18/2019 Dermatological cryotherapy OTHER SURGICAL HISTORY 06/18/2019 Esophagogastroduodenoscopy OTHER SURGICAL HISTORY 06/18/2019 Nail debridement OTHER SURGICAL HISTORY 06/18/2019 Epidural space injection OTHER SURGICAL HISTORY 07/07/2020 Colonoscopy OTHER SURGICAL HISTORY 01/05/2022 Catheter ablation OTHER SURGICAL HISTORY 08/16/2020 Cardiac catheterization OTHER SURGICAL HISTORY 05/11/2020 Inguinal hernia repair PACEMAKER PLACEMENT Family History Problem Relation Name Age of Onset Other (CVA) Mother Diabetes type II Father Diabetes type II Sister Heart attack Brother Coronary artery disease Brother Kidney failure Brother Diabetes type II Brother Social History Social History Narrative Not on file No Known Allergies PMH: Reviewed PSH: Reviewed Social History: Reviewed. Allergies reviewed. HPI: Rocio Sandoval is a 78 y.o. male who presents to the ED today accompanied by his close friend Barbara with complaints of cough, congestion, left jaw pain that has resolved, and sore throat. Was sent here from urgent care/walk-in clinic after he presented there with the symptoms. Symptoms started several days ago. His friend Barbara has been sick with similar type symptoms, diagnosed with bronchitis. He is not a smoker. States he had a stress test done earlier this week but has not had results. States that his jaw pain that he was experiencing while he is at the walk-in clinic has now resolved. He intermittently has shortness of breath and pain above his pacemaker, none currently. He denies leg pain or swelling. REVIEW OF SYSTEMS: All other systems reviewed and negative except as listed in HPI. PHYSICAL EXAM: GENERAL: Vitals noted, no distress. Alert and oriented x 3. Non-toxic. EENT: TMs clear. Posterior oropharynx unremarkable. EOMI, no nystagmus noted. NECK: Supple. No masses. No midline tenderness. No meningeal signs. CARDIAC: Regular rate, rhythm. No murmurs rubs or gallops. No JVD. PULMONARY: Lungs clear and equal bilaterally. No wheezes rales or rhonchi. No respiratory distress. ABDOMEN: Soft, nondistended, and nontender. No peritoneal signs. Bowel sounds are present and normoactive in all 4 quadrants. No pulsatile masses. EXTREMITIES: Mild peripheral edema noted of both lower extremities. SKIN: No rash. Warm, dry, and intact. NEURO: No focal neurologic deficits. Labs Reviewed CBC WITH AUTO DIFFERENTIAL - Abnormal Result Value WBC 7.1 nRBC 0.0 RBC 4.41 (*) Hemoglobin 12.9 (*) Hematocrit 41.3 MCV 94 MCH 29.3 MCHC 31.2 (*) RDW 15.0 (*) Platelets 274 Neutrophils % 65.3 Immature Granulocytes %, Automated 0.1 Lymphocytes % 22.8 Monocytes % 9.1 Eosinophils % 2.1 Basophils % 0.6 Neutrophils Absolute 4.66 Immature Granulocytes Absolute, Automated 0.01 Lymphocytes Absolute 1.63 Monocytes Absolute 0.65 Eosinophils Absolute 0.15 Basophils Absolute 0.04 COMPREHENSIVE METABOLIC PANEL - Abnormal Glucose 103 (*) Sodium 140 Potassium 4.2 Chloride 109 (*) Bicarbonate 26 Anion Gap 9 (*) Urea Nitrogen 16 Creatinine 1.05 eGFR 72 Calcium 8.7 Albumin 3.7 Alkaline Phosphatase 77 Total Protein 6.5 AST 17 Bilirubin, Total 0.6 ALT 16 TSH WITH REFLEX TO FREE T4 IF ABNORMAL - Abnormal Thyroid Stimulating Hormone 0.02 (*) Narrative: TSH testing is performed using different testing methodology at [facility] than at other [facility]. Direct result comparisons should only be made within the same method. B-TYPE NATRIURETIC PEPTIDE - Abnormal BNP 548 (*) Narrative: <100 pg/mL - Heart failure unlikely 100-299 pg/mL - Intermediate probability of acute heart failure exacerbation. Correlate with clinical context and patient history. >=300 pg/mL - Heart Failure likely. Correlate with clinical context and patient history. BNP testing is performed using different testing methodology at [facility] than at other [facility]. Direct result comparisons should only be made within the same method. THYROXINE, FREE - Abnormal Thyroxine, Free 1.45 (*) Narrative: Thyroxine Free testing is performed using different testing methodology at [facility] than at other [facility]. Direct result comparisons should only be made within the same method. Biotin can cause falsely elevated free T4 results. Patients taking a Biotin dose of up to 10 mg/day should refrain from taking Biotin for 24 hours before sample collection. Patient taking a Biotin dose of >10 mg/day should consult with their physician or the laboratory before the blood draw. MAGNESIUM - Normal Magnesium 2.26 TROPONIN I, HIGH SENSITIVITY - Normal Troponin I, High Sensitivity 5 Narrative: Less than 99th percentile of normal range cutoff- Female and children under 18 years old <14 ng/L; Male <21 ng/L: Negative Repeat testing should be performed if clinically indicated. Female and children under 18 years old 14-50 ng/L; Male 21-50 ng/L: Consistent with possible cardiac damage and possible increased clinical risk. Serial measurements may help to assess extent of myocardial damage. >50 ng/L: Consistent with cardiac damage, increased clinical risk and myocardial infarction. Serial measurements may help assess extent of myocardial damage. NOTE: Children less than 1 year old may have higher baseline troponin levels and results should be interpreted in conjunction with the overall clinical context. NOTE: Troponin I testing is performed using a different testing methodology at [facility] than at other [facility]. Direct result comparisons should only be made within the same method. SARS-COV-2 PCR - Normal Coronavirus 2019, PCR Not Detected Narrative: This assay has received FDA Emergency Use Authorization (EUA) and is only authorized for the duration of time that circumstances exist to justify the authorization of the emergency use of in vitro diagnostic tests for the detection of SARS-CoV-2 virus and/or diagnosis of COVID-19 infection under section 564(b)(1) of the Act, 21 U.S.C. 360bbb-3(b)(1). This assay is an in vitro diagnostic nucleic acid amplification test for the qualitative detection of SARS-CoV-2 from nasopharyngeal specimens and has been validated for use at [facility]. Negative results do not preclude COVID-19 infections and should not be used as the sole basis for diagnosis, treatment, or other management decisions. INFLUENZA A AND B PCR - Normal Flu A Result Not Detected Flu B Result Not Detected Narrative: This assay is an in vitro diagnostic multiplex nucleic acid amplification test for the detection and discrimination of Influenza A & B from nasopharyngeal specimens, and has been validated for use at [facility]. Negative results do not preclude Influenza A/B infections, and should not be used as the sole basis for diagnosis, treatment, or other management decisions. If Influenza A/B and RSV PCR results are negative, testing for Parainfluenza virus, Adenovirus and Metapneumovirus is routinely performed for [facility] [place] and [place] in[place], and is available on other patients by placing an add-on request. URINALYSIS WITH REFLEX CULTURE AND MICROSCOPIC Narrative: The following orders were created for panel order Urinalysis with Reflex Culture and Microscopic. Procedure Abnormality Status --------- ------ Urinalysis with Reflex C...[[id number]] In process Extra Urine Llanos Tube[[id number]] In process Please view results for these tests on the individual orders. URINALYSIS WITH REFLEX CULTURE AND MICROSCOPIC EXTRA URINE LLANOS TUBE XR chest 2 views Final Result Suspected subpleural fibrotic changes in the lungs relatively similar in appearance compared to 05/13/2024. No definite new areas of consolidation. Signed by Mk Vasquez MD Medical Decision Making Amount and/or Complexity of Data Reviewed Labs: ordered. Radiology: ordered. ECG/medicine tests: ordered. EKG interpreted by myself shows V-paced rhythm with rate of 94, occasional PVC. Left axis. QRS interval 200. QT interval 502. QTc interval 517. Non-specific ST-T wave changes. No acute ischemia or injury pattern. ED COURSE: This patient was seen and examined by myself and Dr. Flores. He is placed on a continuous child care provider with pulse oximetry monitoring. Old records and EKGs are obtained and reviewed. IV heplock is established, labs are obtained and noted above. COVID-negative. Flu negative. CMP is essentially unremarkable as is the CBC with differential except for some mild anemia. Thyroid levels were requested by the patient as he has an upcoming appt with his PCP and needed this rechecked prior to. CXR without evidence of pneumonia. He's reassured. Started on antibiotics/inhaler and encouraged PCP followup. He is discharged home in a stable condition with computer instructions given and is encouraged to return to the ER for any new or worsening symptoms. Heart score: 5 Differential Diagnoses Considered: Pneumonia, COVID, flu, bronchitis, pleurisy, IA/NSTEMI, CHF exacerbation, COPD, asthma Chronic Medical Conditions Significantly Affecting Care: see above External Records Reviewed: I reviewed recent and relevant outside records including: PCP notes, prior discharge summary, previous radiologic studies Diagnostic testing considered: blood, cxr, EKG, urine, nasal swab Escalation of Care: Appropriate for outpatient management Prescription Drug Consideration: Antibiotics/inhaler DIAGNOSTIC IMPRESSION: #1 bronchitis SANDY Lucero 06/12/24 1450 Cosigned by Robbin Flores MD at 06/12/2024 3:12 PM EST Associated attestation - Robbin Flores MD - 06/12/2024 3:12 PM EST This patient was seen by the advanced practice provider. I have personally performed a substantive portion of the encounter. I have seen and examined the patient; agree with the workup, evaluation, MDM, management and diagnosis. The care plan has been discussed. I personally saw the patient and made/approved the management plan and take responsibility for the patient management. History: With a cough Exam: Diminished breath sounds but no dyspnea MDM: Workup is negative for COVID flu and pneumonia patient will be treated for presumed bronchitis [facility] Work Phone: 06-04-2024 Note Nail care, left grea t toe pain Patient is a pleasant 78 year-old male who comes in today for diabetic nail care. His diabetes is managed by primary care including Dr. Kin Anne. Hemoglobin A1c is 7.5% with some tingling burning and loss of sensation. Physical Vascular: DP pulses are palpable 2 out of 4. PT pulses are nonpalpable bilaterally. CFT is fair with mild edema. Compression socks are helping. Feet are warm to cool proximal to distal. Hair growth absent to the lower extremity and skin is shiny atrophic dysvascular. Nails one left and one right are elongated thickened mycotic crumbling and dystrophic. Nails left foot 2345 and right foot 2345 are elongated and thickened and mycotic. Neuro: Sharp dull is blunted Babinski's is fair. Musculoskeletal: Muscle strength is 5/5 with fair tone, can easily wiggle toes without any clicking or catching. Left great toe is painful with compression of the first MPJ though the IPJ is full and pain-free. Otherwise can easily wiggle toes without any clicking or catching Assessment and plan: Patient is a pleasant 78-year-old male, diabetes with peripheral arterial disease, onychomycosis to two nails and onychodystrophy to eight nails. -He does qualify for nail care given his peripheral arterial disease and risk. Procedure: Nails left foot one 2345 bilaterally were sharply debrided and debulk in height and length with a sharp pair of nail nippers consistent with a q8 modifier. Follow-up in 3 months for foot nail care. AUTHENTICATED BY CHINTAN MALDONADO JR., ON 06/04/2024 08:41:00 [facility] 06-04-2024 History of Present illness Narrative Nail care, left great toe pain Patient is a pleasant 78 year-old male who comes in today for diabetic nail care. His diabetes is managed by primary care including Dr. Kin Anne. Hemoglobin A1c is 7.5% with some tingling burning and loss of sensation. Physical Vascular: DP pulses are palpable 2 out of 4. PT pulses are nonpalpable bilaterally. CFT is fair with mild edema. Compression socks are helping. Feet are warm to cool proximal to distal. Hair growth absent to the lower extremity and skin is shiny atrophic dysvascular. Nails one left and one right are elongated thickened mycotic crumbling and dystrophic. Nails left foot 2345 and right foot 2345 are elongated and thickened and mycotic. Neuro: Sharp dull is blunted Babinski's is fair. Musculoskeletal: Muscle strength is 5/5 with fair tone, can easily wiggle toes without any clicking or catching. Left great toe is painful with compression of the first MPJ though the IPJ is full and pain-free. Otherwise can easily wiggle toes without any clicking or catching Assessment and plan: Patient is a pleasant 78-year-old male, diabetes with peripheral arterial disease, onychomycosis to two nails and onychodystrophy to eight nails. -He does qualify for nail care given his peripheral arterial disease and risk. Procedure: Nails left foot one 2345 bilaterally were sharply debrided and debulk in height and length with a sharp pair of nail nippers consistent with a q8 modifier. Follow-up in 3 months for foot nail care. documented in this encounter [facility] 05-28-2024 Miscellaneous Notes Discharge instructions reviewed by Zuly Ruelas RN no questions and verbalized understanding. discharged amb steady gait, to exit to be driven home by family edin well documented in this encounter [facility] Work Phone: 05-28-2024 Miscellaneous Notes Discharge instructions reviewed by Zuly Ruelas RN no questions and verbalized understanding. discharged amb steady gait, to exit to be driven home by family edin well documented in this encounter [facility] Work Phone: 05-28-2024 Note Formatting of this n ote might be different from the original. Discharge instructions reviewed by Zuly Ruelas RN no questions and verbalized understanding. discharged amb steady gait, to exit to be driven home by family edin well [facility] Work Phone: 05-28-2024 Nurse Surgical operation note Discharge instructions reviewed by Zuly Ruelas RN no questions and verbalized understanding. discharged amb steady gait, to exit to be driven home by family edin well [facility] Work Phone: 05-28-2024 Attending History and physical note H&P reviewed. The patient was examined and there are no changes to the H&P. Source Note - Reggie Aragon PA-C - 05/01/2024 10:15 AM EDT Subjective Patient ID: Rocio Sandoval is a 78 y.o. 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 Today he reports Lt side lower back at belt line and lower back/upper gluteal at times goes into his lt leg and foot rates 4/10 now and 8-9/10, describes ache. He is very active and takes Gabapentin and Tylenol 8hr and and 500mg in the after noon this helps ease his pain some. ) RACHEL score 36%. Ludivina Duff RN 05/01/24 10:20 AM Patient is an 78-year-old male. He presents today for follow-up after undergoing L4-5 epidural steroid injection. This was done on 03/28/2024. Gave him significant relief for a few days but nothing more significant than that. 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 He was doing a lot of things outside. Unfortunate, at this time he is still noticing lower back pain with left radiating leg pain but this is now going down into the top of his foot. He rates the discomfort a 4-9/10. The more he is up and active the worst it gets. He is is Tylenol and gabapentin. Some relief but not enough. He wonders what other options he has to try to get relief as he does not want to have another surgery. Review of Systems Constitutional: Negative. HENT: Negative. Eyes: Negative. Respiratory: Negative. Cardiovascular: Negative. Gastrointestinal: Negative. Endocrine: Negative. Genitourinary: Negative. Musculoskeletal: Positive for arthralgias, back pain, gait problem and myalgias. Skin: Negative. Allergic/Immunologic: Negative. Neurological: Positive for weakness and numbness. Hematological: Negative. Psychiatric/Behavioral: Negative. Objective Physical Exam Vitals and nursing note reviewed. Constitutional: General: He is not in acute distress. Appearance: Normal appearance. He is not ill-appearing. HENT: Head: Normocephalic and atraumatic. Right Ear: External ear normal. Left Ear: External ear normal. Nose: Nose normal. Mouth/Throat: Pharynx: Oropharynx is clear. Eyes: Conjunctiva/sclera: Conjunctivae normal. Cardiovascular: Rate and Rhythm: Normal rate and regular rhythm. Pulses: Normal pulses. Pulmonary: Effort: Pulmonary effort is normal. Breath sounds: Normal breath sounds. Musculoskeletal: General: Normal range of motion. Cervical back: Normal range of motion. Comments: 5/5 lower extremity strength Negative Nima Skin: General: Skin is warm and dry. Neurological: General: No focal deficit present. Mental Status: He is alert and oriented to person, place, and time. Mental status is at baseline. Psychiatric: Mood and Affect: Mood normal. Behavior: Behavior normal. Thought Content: Thought content normal. Judgment: Judgment normal. MR lumbar spine wo IV contrast Status: Final result PACS Images Show images for MR lumbar spine wo IV contrast Signed by Signed Time Phone Pager Rocio Go MD 09/24/2023 13:33 [id number] Exam Information Status Exam Begun Exam Ended Final 09/24/2023 11:33 09/24/2023 12:02 Study Result Narrative & Impression Interpreted By: Rocio Go, STUDY: MR LUMBAR SPINE WO IV CONTRAST performed 09/24/2023 12:02 pm INDICATION: Signs/Symptoms:lower back and leg pain. COMPARISON: Lumbar spine radiographs dated 08/07/2023. MRI lumbar spine performed 03/31/2021. ACCESSION NUMBER(S): [id number] ORDERING CLINICIAN: REGGIE ARAGON TECHNIQUE: Multiplanar multisequence MR imaging of the lumbar spine performed without intravenous contrast. Sagittal T1, T2, STIR, axial T1 and T2 weighted images of the lumbar spine were acquired. FINDINGS: Segmentation: Partially formed S1-S2 disc. 5 non rib-bearing lumbar vertebral bodies are designated on this examination. Conus: The lower thoracic cord appears unremarkable. The conus terminates at the L2 vertebral body level. Cauda equina are unremarkable. Epidural fluid: None. Alignment: Mild rotatory levo scoliosis as evident on localizer imaging with apex at L2-L3. Lumbar alignment is otherwise maintained. Vertebral bodies: Minimal chronic anterior wedging of T12 and L1. Lumbar vertebral body heights are otherwise maintained. Marrow signal: Type 2 Modic endplate signal change posteriorly at L2-L3. No focal STIR hyperintensity/marrow edema. Intervertebral discs: Tiny Schmorl's node components at T11-T12. Moderate multilevel degenerative disc height loss. Multilevel disc desiccation. Probable vacuum disc components at L3-L4 and L4-L5. Degenerative change: T12-L1: Mild bilateral facet arthropathy with ligamentum flavum hypertrophy. Minimal disc bulge with tiny left subarticular disc osteophyte protrusion component. Left lateral recess narrowing with no additional spinal canal stenosis. No neural foraminal narrowing. L1-2: Mild facet arthropathy with ligamentum flavum hypertrophy. No spinal canal stenosis or neural foraminal narrowing. L2-3: There is suggestion of previous right hemilaminectomy. Bilateral facet arthropathy. Wjvh-ce-jqkostuy disc bulge with hypertrophic endplate spurring. Mild narrowing of the lateral recesses without spinal canal stenosis. Mild bilateral neural foraminal narrowing. L3-4: Possible remote right hemilaminectomy. Mild bilateral facet arthropathy. Mild disc bulge and endplate spurring. Narrowing of the lateral recesses without additional spinal canal stenosis. Mild bilateral neural foraminal narrowing. L4-5: Moderate facet arthropathy with ligamentum flavum hypertrophy. Previous right facet synovial cyst is no longer definitively visualized. Moderate disc bulge with hypertrophic endplate spurring. Moderate trefoil narrowing of the thecal sac and lateral recesses. Moderate vvpb-yxamxfd-wpen-right neural foraminal narrowing with facet arthropathy contacting the exiting left L4 nerve root. L5-S1: Mild facet arthropathy. Mild disc bulge with trace posterior fissuring. Similar left lateral recess narrowing. No additional spinal canal stenosis. No substantial neural foraminal narrowing. Soft tissues: Incomplete visualization of a large, exophytic, cystic appearing lesion arising from the left kidney. Fatty atrophy of the posterior paraspinal musculature. IMPRESSION: Similar to minimally worsened lumbar degenerative change. At L4-L5 the previously identified right facet synovial cyst is no longer clearly delineated. There is moderate spinal canal stenosis/lateral recess narrowing with moderate jagw-ughckcv-bgau-right neural foraminal narrowing with facet osteophyte contacting/possibly impinging the exiting left L4 nerve root. MACRO: None Signed by: Rocio Go 09/24/2023 1:33 PM Dictation workstation: [id number] Assessment/Plan Diagnoses and all orders for this visit: Lumbar radiculopathy - Transforaminal; Future - FL pain management; Future 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 Other orders - NPO Diet Except: Sips with meds; Effective now; Standing - Height and weight; Standing - Insert and maintain peripheral IV; Standing - Saline lock IV; Standing - POCT Glucose; Standing - Type And Screen; Standing - Inpatient consult to Respiratory Care; Standing - Adult diet Regular; Standing - Vital Signs; Standing - Notify physician - Standard Parameters; Standing - Continue IV fluids ordered pre-procedure; Standing - Prior to Discharge O2 Weaning; Standing - Pulse oximetry, continuous; Standing - Discharge patient; Standing - iohexol (OMNIPaque) 300 mg iodine/mL solution 6 mL - lidocaine PF (Xylocaine) 20 mg/mL (2 %) injection 120 mg - lidocaine PF (Xylocaine) 20 mg/mL (2 %) injection 10 mg - sodium chloride (PF) 0.9% solution 0.5 mL - dexAMETHasone (PF) (Decadron) injection 10 mg Patient is an 78-year-old male with a past medical history significant for the above-mentioned medical diagnoses. He underwent recent L4-5 epidural steroid injection that gave him significant but short-lived relief. Prior to that he underwent bilateral L4-5 transforaminal epidural steroid injection with significant relief but this only lasted for about 2 months. At this time, he is really only having left radiating leg pain. He has previously trialed and failed all reasonable conservative treatments. At this time, I recommended to patient a left-sided L5-S1 transforaminal epidural steroid injection to be done under fluoroscopy for both diagnostic and therapeutic purposes. Procedure was discussed. Risks and benefits were discussed. Patient is agreeable. He will follow-up 2 weeks after the injection for reevaluation. Medication holds including vitamins for 1 week and Xarelto for 3 days was discussed. [facility] Work Phone: 05-28-2024 History and physical note H&P reviewed. The patient was examined and there are no changes to the H&P. Source Note - Reggie Aragon PA-C - 05/01/2024 10:15 AM EDT Subjective Patient ID: Rocio Sandoval is a 78 y.o. 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 Today he reports Lt side lower back at belt line and lower back/upper gluteal at times goes into his lt leg and foot rates 4/10 now and 8-9/10, describes ache. He is very active and takes Gabapentin and Tylenol 8hr and and 500mg in the after noon this helps ease his pain some. ) RACHEL score 36%. Ludivina Duff RN 05/01/24 10:20 AM Patient is an 78-year-old male. He presents today for follow-up after undergoing L4-5 epidural steroid injection. This was done on 03/28/2024. Gave him significant relief for a few days but nothing more significant than that. 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 He was doing a lot of things outside. Unfortunate, at this time he is still noticing lower back pain with left radiating leg pain but this is now going down into the top of his foot. He rates the discomfort a 4-9/10. The more he is up and active the worst it gets. He is is Tylenol and gabapentin. Some relief but not enough. He wonders what other options he has to try to get relief as he does not want to have another surgery. Review of Systems Constitutional: Negative. HENT: Negative. Eyes: Negative. Respiratory: Negative. Cardiovascular: Negative. Gastrointestinal: Negative. Endocrine: Negative. Genitourinary: Negative. Musculoskeletal: Positive for arthralgias, back pain, gait problem and myalgias. Skin: Negative. Allergic/Immunologic: Negative. Neurological: Positive for weakness and numbness. Hematological: Negative. Psychiatric/Behavioral: Negative. Objective Physical Exam Vitals and nursing note reviewed. Constitutional: General: He is not in acute distress. Appearance: Normal appearance. He is not ill-appearing. HENT: Head: Normocephalic and atraumatic. Right Ear: External ear normal. Left Ear: External ear normal. Nose: Nose normal. Mouth/Throat: Pharynx: Oropharynx is clear. Eyes: Conjunctiva/sclera: Conjunctivae normal. Cardiovascular: Rate and Rhythm: Normal rate and regular rhythm. Pulses: Normal pulses. Pulmonary: Effort: Pulmonary effort is normal. Breath sounds: Normal breath sounds. Musculoskeletal: General: Normal range of motion. Cervical back: Normal range of motion. Comments: 5/5 lower extremity strength Negative Nima Skin: General: Skin is warm and dry. Neurological: General: No focal deficit present. Mental Status: He is alert and oriented to person, place, and time. Mental status is at baseline. Psychiatric: Mood and Affect: Mood normal. Behavior: Behavior normal. Thought Content: Thought content normal. Judgment: Judgment normal. MR lumbar spine wo IV contrast Status: Final result PACS Images Show images for MR lumbar spine wo IV contrast Signed by Signed Time Phone Pager Rocio oG MD 09/24/2023 13:33 [id number] Exam Information Status Exam Begun Exam Ended Final 09/24/2023 11:33 09/24/2023 12:02 Study Result Narrative & Impression Interpreted By: Rocio Go, STUDY: MR LUMBAR SPINE WO IV CONTRAST performed 09/24/2023 12:02 pm INDICATION: Signs/Symptoms:lower back and leg pain. COMPARISON: Lumbar spine radiographs dated 08/07/2023. MRI lumbar spine performed 03/31/2021. ACCESSION NUMBER(S): [id number] ORDERING CLINICIAN: REGGIE ARAGON TECHNIQUE: Multiplanar multisequence MR imaging of the lumbar spine performed without intravenous contrast. Sagittal T1, T2, STIR, axial T1 and T2 weighted images of the lumbar spine were acquired. FINDINGS: Segmentation: Partially formed S1-S2 disc. 5 non rib-bearing lumbar vertebral bodies are designated on this examination. Conus: The lower thoracic cord appears unremarkable. The conus terminates at the L2 vertebral body level. Cauda equina are unremarkable. Epidural fluid: None. Alignment: Mild rotatory levo scoliosis as evident on localizer imaging with apex at L2-L3. Lumbar alignment is otherwise maintained. Vertebral bodies: Minimal chronic anterior wedging of T12 and L1. Lumbar vertebral body heights are otherwise maintained. Marrow signal: Type 2 Modic endplate signal change posteriorly at L2-L3. No focal STIR hyperintensity/marrow edema. Intervertebral discs: Tiny Schmorl's node components at T11-T12. Moderate multilevel degenerative disc height loss. Multilevel disc desiccation. Probable vacuum disc components at L3-L4 and L4-L5. Degenerative change: T12-L1: Mild bilateral facet arthropathy with ligamentum flavum hypertrophy. Minimal disc bulge with tiny left subarticular disc osteophyte protrusion component. Left lateral recess narrowing with no additional spinal canal stenosis. No neural foraminal narrowing. L1-2: Mild facet arthropathy with ligamentum flavum hypertrophy. No spinal canal stenosis or neural foraminal narrowing. L2-3: There is suggestion of previous right hemilaminectomy. Bilateral facet arthropathy. Uwqm-aw-arjlnkfp disc bulge with hypertrophic endplate spurring. Mild narrowing of the lateral recesses without spinal canal stenosis. Mild bilateral neural foraminal narrowing. L3-4: Possible remote right hemilaminectomy. Mild bilateral facet arthropathy. Mild disc bulge and endplate spurring. Narrowing of the lateral recesses without additional spinal canal stenosis. Mild bilateral neural foraminal narrowing. L4-5: Moderate facet arthropathy with ligamentum flavum hypertrophy. Previous right facet synovial cyst is no longer definitively visualized. Moderate disc bulge with hypertrophic endplate spurring. Moderate trefoil narrowing of the thecal sac and lateral recesses. Moderate nznm-pxyytoo-qhng-right neural foraminal narrowing with facet arthropathy contacting the exiting left L4 nerve root. L5-S1: Mild facet arthropathy. Mild disc bulge with trace posterior fissuring. Similar left lateral recess narrowing. No additional spinal canal stenosis. No substantial neural foraminal narrowing. Soft tissues: Incomplete visualization of a large, exophytic, cystic appearing lesion arising from the left kidney. Fatty atrophy of the posterior paraspinal musculature. IMPRESSION: Similar to minimally worsened lumbar degenerative change. At L4-L5 the previously identified right facet synovial cyst is no longer clearly delineated. There is moderate spinal canal stenosis/lateral recess narrowing with moderate damu-tgaywyc-qcoq-right neural foraminal narrowing with facet osteophyte contacting/possibly impinging the exiting left L4 nerve root. MACRO: None Signed by: Rocio Go 09/24/2023 1:33 PM Dictation workstation: [id number] Assessment/Plan Diagnoses and all orders for this visit: Lumbar radiculopathy - Transforaminal; Future - FL pain management; Future 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 Other orders - NPO Diet Except: Sips with meds; Effective now; Standing - Height and weight; Standing - Insert and maintain peripheral IV; Standing - Saline lock IV; Standing - POCT Glucose; Standing - Type And Screen; Standing - Inpatient consult to Respiratory Care; Standing - Adult diet Regular; Standing - Vital Signs; Standing - Notify physician - Standard Parameters; Standing - Continue IV fluids ordered pre-procedure; Standing - Prior to Discharge O2 Weaning; Standing - Pulse oximetry, continuous; Standing - Discharge patient; Standing - iohexol (OMNIPaque) 300 mg iodine/mL solution 6 mL - lidocaine PF (Xylocaine) 20 mg/mL (2 %) injection 120 mg - lidocaine PF (Xylocaine) 20 mg/mL (2 %) injection 10 mg - sodium chloride (PF) 0.9% solution 0.5 mL - dexAMETHasone (PF) (Decadron) injection 10 mg Patient is an 78-year-old male with a past medical history significant for the above-mentioned medical diagnoses. He underwent recent L4-5 epidural steroid injection that gave him significant but short-lived relief. Prior to that he underwent bilateral L4-5 transforaminal epidural steroid injection with significant relief but this only lasted for about 2 months. At this time, he is really only having left radiating leg pain. He has previously trialed and failed all reasonable conservative treatments. At this time, I recommended to patient a left-sided L5-S1 transforaminal epidural steroid injection to be done under fluoroscopy for both diagnostic and therapeutic purposes. Procedure was discussed. Risks and benefits were discussed. Patient is agreeable. He will follow-up 2 weeks after the injection for reevaluation. Medication holds including vitamins for 1 week and Xarelto for 3 days was discussed. documented in this encounter [facility] Work Phone: 05-28-2024 History and physical note H&P reviewed. The patient was examined and there are no changes to the H&P. Source Note - Reggie Aragon PA-C - 05/01/2024 10:15 AM EDT Subjective Patient ID: Rocio Sandoval is a 78 y.o. 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 Today he reports Lt side lower back at belt line and lower back/upper gluteal at times goes into his lt leg and foot rates 4/10 now and 8-9/10, describes ache. He is very active and takes Gabapentin and Tylenol 8hr and and 500mg in the after noon this helps ease his pain some. ) RACHEL score 36%. Ludivina Duff RN 05/01/24 10:20 AM Patient is an 78-year-old male. He presents today for follow-up after undergoing L4-5 epidural steroid injection. This was done on 03/28/2024. Gave him significant relief for a few days but nothing more significant than that. 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 He was doing a lot of things outside. Unfortunate, at this time he is still noticing lower back pain with left radiating leg pain but this is now going down into the top of his foot. He rates the discomfort a 4-9/10. The more he is up and active the worst it gets. He is is Tylenol and gabapentin. Some relief but not enough. He wonders what other options he has to try to get relief as he does not want to have another surgery. Review of Systems Constitutional: Negative. HENT: Negative. Eyes: Negative. Respiratory: Negative. Cardiovascular: Negative. Gastrointestinal: Negative. Endocrine: Negative. Genitourinary: Negative. Musculoskeletal: Positive for arthralgias, back pain, gait problem and myalgias. Skin: Negative. Allergic/Immunologic: Negative. Neurological: Positive for weakness and numbness. Hematological: Negative. Psychiatric/Behavioral: Negative. Objective Physical Exam Vitals and nursing note reviewed. Constitutional: General: He is not in acute distress. Appearance: Normal appearance. He is not ill-appearing. HENT: Head: Normocephalic and atraumatic. Right Ear: External ear normal. Left Ear: External ear normal. Nose: Nose normal. Mouth/Throat: Pharynx: Oropharynx is clear. Eyes: Conjunctiva/sclera: Conjunctivae normal. Cardiovascular: Rate and Rhythm: Normal rate and regular rhythm. Pulses: Normal pulses. Pulmonary: Effort: Pulmonary effort is normal. Breath sounds: Normal breath sounds. Musculoskeletal: General: Normal range of motion. Cervical back: Normal range of motion. Comments: 5/5 lower extremity strength Negative Nima Skin: General: Skin is warm and dry. Neurological: General: No focal deficit present. Mental Status: He is alert and oriented to person, place, and time. Mental status is at baseline. Psychiatric: Mood and Affect: Mood normal. Behavior: Behavior normal. Thought Content: Thought content normal. Judgment: Judgment normal. MR lumbar spine wo IV contrast Status: Final result PACS Images Show images for MR lumbar spine wo IV contrast Signed by Signed Time Phone Pager Rocio Go MD 09/24/2023 13:33 [id number] Exam Information Status Exam Begun Exam Ended Final 09/24/2023 11:33 09/24/2023 12:02 Study Result Narrative & Impression Interpreted By: Rocio Go, STUDY: MR LUMBAR SPINE WO IV CONTRAST performed 09/24/2023 12:02 pm INDICATION: Signs/Symptoms:lower back and leg pain. COMPARISON: Lumbar spine radiographs dated 08/07/2023. MRI lumbar spine performed 03/31/2021. ACCESSION NUMBER(S): [id number] ORDERING CLINICIAN: REGGIE ARAGON TECHNIQUE: Multiplanar multisequence MR imaging of the lumbar spine performed without intravenous contrast. Sagittal T1, T2, STIR, axial T1 and T2 weighted images of the lumbar spine were acquired. FINDINGS: Segmentation: Partially formed S1-S2 disc. 5 non rib-bearing lumbar vertebral bodies are designated on this examination. Conus: The lower thoracic cord appears unremarkable. The conus terminates at the L2 vertebral body level. Cauda equina are unremarkable. Epidural fluid: None. Alignment: Mild rotatory levo scoliosis as evident on localizer imaging with apex at L2-L3. Lumbar alignment is otherwise maintained. Vertebral bodies: Minimal chronic anterior wedging of T12 and L1. Lumbar vertebral body heights are otherwise maintained. Marrow signal: Type 2 Modic endplate signal change posteriorly at L2-L3. No focal STIR hyperintensity/marrow edema. Intervertebral discs: Tiny Schmorl's node components at T11-T12. Moderate multilevel degenerative disc height loss. Multilevel disc desiccation. Probable vacuum disc components at L3-L4 and L4-L5. Degenerative change: T12-L1: Mild bilateral facet arthropathy with ligamentum flavum hypertrophy. Minimal disc bulge with tiny left subarticular disc osteophyte protrusion component. Left lateral recess narrowing with no additional spinal canal stenosis. No neural foraminal narrowing. L1-2: Mild facet arthropathy with ligamentum flavum hypertrophy. No spinal canal stenosis or neural foraminal narrowing. L2-3: There is suggestion of previous right hemilaminectomy. Bilateral facet arthropathy. Dxyj-kp-sbylazma disc bulge with hypertrophic endplate spurring. Mild narrowing of the lateral recesses without spinal canal stenosis. Mild bilateral neural foraminal narrowing. L3-4: Possible remote right hemilaminectomy. Mild bilateral facet arthropathy. Mild disc bulge and endplate spurring. Narrowing of the lateral recesses without additional spinal canal stenosis. Mild bilateral neural foraminal narrowing. L4-5: Moderate facet arthropathy with ligamentum flavum hypertrophy. Previous right facet synovial cyst is no longer definitively visualized. Moderate disc bulge with hypertrophic endplate spurring. Moderate trefoil narrowing of the thecal sac and lateral recesses. Moderate npcg-shmsdtn-mqgv-right neural foraminal narrowing with facet arthropathy contacting the exiting left L4 nerve root. L5-S1: Mild facet arthropathy. Mild disc bulge with trace posterior fissuring. Similar left lateral recess narrowing. No additional spinal canal stenosis. No substantial neural foraminal narrowing. Soft tissues: Incomplete visualization of a large, exophytic, cystic appearing lesion arising from the left kidney. Fatty atrophy of the posterior paraspinal musculature. IMPRESSION: Similar to minimally worsened lumbar degenerative change. At L4-L5 the previously identified right facet synovial cyst is no longer clearly delineated. There is moderate spinal canal stenosis/lateral recess narrowing with moderate jagk-oevzamd-nmdv-right neural foraminal narrowing with facet osteophyte contacting/possibly impinging the exiting left L4 nerve root. MACRO: None Signed by: Rocio Go 09/24/2023 1:33 PM Dictation workstation: [id number] Assessment/Plan Diagnoses and all orders for this visit: Lumbar radiculopathy - Transforaminal; Future - FL pain management; Future 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 Other orders - NPO Diet Except: Sips with meds; Effective now; Standing - Height and weight; Standing - Insert and maintain peripheral IV; Standing - Saline lock IV; Standing - POCT Glucose; Standing - Type And Screen; Standing - Inpatient consult to Respiratory Care; Standing - Adult diet Regular; Standing - Vital Signs; Standing - Notify physician - Standard Parameters; Standing - Continue IV fluids ordered pre-procedure; Standing - Prior to Discharge O2 Weaning; Standing - Pulse oximetry, continuous; Standing - Discharge patient; Standing - iohexol (OMNIPaque) 300 mg iodine/mL solution 6 mL - lidocaine PF (Xylocaine) 20 mg/mL (2 %) injection 120 mg - lidocaine PF (Xylocaine) 20 mg/mL (2 %) injection 10 mg - sodium chloride (PF) 0.9% solution 0.5 mL - dexAMETHasone (PF) (Decadron) injection 10 mg Patient is an 78-year-old male with a past medical history significant for the above-mentioned medical diagnoses. He underwent recent L4-5 epidural steroid injection that gave him significant but short-lived relief. Prior to that he underwent bilateral L4-5 transforaminal epidural steroid injection with significant relief but this only lasted for about 2 months. At this time, he is really only having left radiating leg pain. He has previously trialed and failed all reasonable conservative treatments. At this time, I recommended to patient a left-sided L5-S1 transforaminal epidural steroid injection to be done under fluoroscopy for both diagnostic and therapeutic purposes. Procedure was discussed. Risks and benefits were discussed. Patient is agreeable. He will follow-up 2 weeks after the injection for reevaluation. Medication holds including vitamins for 1 week and Xarelto for 3 days was discussed. documented in this encounter [facility] Work Phone: 05-28-2024 Note Table formatting fro m the original result was not included. Procedure Transforaminal Indication Lumbar radiculopathy Medications iohexol (OMNIPaque) 300 mg iodine/mL solution 6 mL 3 mL lidocaine PF (Xylocaine) 20 mg/mL (2 %) injection 120 mg 2 mL dexAMETHasone (PF) (Decadron) injection 10 mg lidocaine PF (Xylocaine) 5 mg/mL (0.5 %) injection 1 mL (Totals for administrations occurring from 1243 to 1252 on 05/28/24) Preprocedure A history and physical has been performed, and patient medication allergies have been reviewed. The patient's tolerance of previous anesthesia has been reviewed. The risks and benefits of the procedure and the sedation options and risks were discussed with the patient. All questions were answered and informed consent obtained. Details of the Procedure Diagnosis: M54.16, lumbar radiculopathy Procedure: Left L5/S1 lumbar transforaminal epidural steroid injections under fluoroscopic guidance Anesthesia: Local Complications: None After informed consent was obtained, the patient was brought to the procedure suite and placed in the prone position. Pulse oximetry and blood pressure were monitored throughout. The low back area was prepped and draped in the usual sterile fashion. Using fluoroscopic guidance, the skin and subcutaneous tissue overlying the needle trajectory of the neuroforamina were anesthetized with 2.0% lidocaine. The 22-gauge Alon needles were then advanced under fluoroscopic guidance into the foramina. Needle tip positions were confirmed in at least two views. Injection of Omnipaque contrast revealed appropriate spread of the dye without vascular uptake. Next, 2.0 mL of 0.5% lidocaine and 10 mg dexamethasone were injected in divided doses through the needle tip. The needle were removed and the patient was then transferred to the recovery room in stable condition. The patient tolerated the procedure well. There were no apparent 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s. FOLLOW UP: The patient will update us on their response to this procedure, and agrees to continue currently prescribed/recommended therapies. Procedure Provider James Alves DO Procedure Location [facility] [place] [address] [place] [id number] Referring Provider Reggie Aragon PA-C [address] [place] [address] Dr Munoz, [address] Work Phone: 05-28-2024 Note Table formatting fro m the original result was not included. Procedure Transforaminal Indication Lumbar radiculopathy Medications iohexol (OMNIPaque) 300 mg iodine/mL solution 6 mL 3 mL lidocaine PF (Xylocaine) 20 mg/mL (2 %) injection 120 mg 2 mL dexAMETHasone (PF) (Decadron) injection 10 mg lidocaine PF (Xylocaine) 5 mg/mL (0.5 %) injection 1 mL (Totals for administrations occurring from 1243 to 1252 on 05/28/24) Preprocedure A history and physical has been performed, and patient medication allergies have been reviewed. The patient's tolerance of previous anesthesia has been reviewed. The risks and benefits of the procedure and the sedation options and risks were discussed with the patient. All questions were answered and informed consent obtained. Details of the Procedure Diagnosis: M54.16, lumbar radiculopathy Procedure: Left L5/S1 lumbar transforaminal epidural steroid injections under fluoroscopic guidance Anesthesia: Local Complications: None After informed consent was obtained, the patient was brought to the procedure suite and placed in the prone position. Pulse oximetry and blood pressure were monitored throughout. The low back area was prepped and draped in the usual sterile fashion. Using fluoroscopic guidance, the skin and subcutaneous tissue overlying the needle trajectory of the neuroforamina were anesthetized with 2.0% lidocaine. The 22-gauge Alon needles were then advanced under fluoroscopic guidance into the foramina. Needle tip positions were confirmed in at least two views. Injection of Omnipaque contrast revealed appropriate spread of the dye without vascular uptake. Next, 2.0 mL of 0.5% lidocaine and 10 mg dexamethasone were injected in divided doses through the needle tip. The needle were removed and the patient was then transferred to the recovery room in stable condition. The patient tolerated the procedure well. There were no apparent 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s. FOLLOW UP: The patient will update us on their response to this procedure, and agrees to continue currently prescribed/recommended therapies. Procedure Provider James Alves DO Procedure Location [facility] [place] [address] [place] [phone] Referring Provider Reggie Aragon PA-C [address] [place] [address] [place] [id number] [place] [address] Work Phone: 05-27-2024 History of Present illness Narrative Images from the original note were not included. Cardiac Electrophysiology Office Visit Referred by Aravind Cifuentes MD for Chief Complaint Patient presents with Atrial Fibrillation HPI: Rocio Sandoval is a 78 y.o. year old male patient with h/o DM, HTN, HLD, ALISHA, AF presenting today to establish care Objective Current Outpatient Medications Medication Instructions acetaminophen (TYLENOL 8 HOUR) 650 mg, Every 8 hours PRN acetaminophen (Tylenol) 500 mg tablet Every 6 hours PRN amiodarone (Pacerone) 200 mg tablet TAKE 1/2 TABLET BY MOUTH EVERY DAY atorvastatin (LIPITOR) 40 mg, oral, Nightly B6/folic/B12/coffee/phosphatid (NEURIVA PLUS BRAIN PERFORMANCE ORAL) 1 tablet, Daily colchicine 0.6 mg, oral, Daily PRN diclofenac sodium (VOLTAREN) 4 g, Topical, 4 times daily PRN empagliflozin (JARDIANCE) 25 mg, oral, Daily fexofenadine (SULAIMAN) 180 mg, oral, Daily FreeStyle Vince 14 Day [place] misc Use as instructed FreeStyle Vince 14 Day Sensor kit Use as instructed furosemide (LASIX) 20 mg, Daily gabapentin (NEURONTIN) 800 mg, oral, 3 times daily, Takes 3 time a day melatonin 5 mg capsule Take by mouth. metFORMIN XR (GLUCOPHAGE-XR) 750 mg, oral, 2 times daily multivitamin (MULTIPLE VITAMINS ORAL) 1 tablet, Daily omeprazole (PRILOSEC) 40 mg, oral, Daily rivaroxaban (XARELTO) 20 mg, oral, Daily tamsulosin (FLOMAX) 0.4 mg, oral, Daily testosterone cypionate (DEPO-TESTOSTERONE) 100 mg, intramuscular, Every 14 days vitamins A,C,O-ecix-rflbzi (Eye Multivitamin) 2,148 mcg-113 mg-45 mg-17.4mg tablet 1 tablet, Daily Visit Vitals BP 100/62 Pulse 62 Ht 1.88 m (6' 2) Wt 106 kg (233 lb 1.6 oz) SpO2 98% BMI 29.93 kg/m Smoking Status Never BSA 2.35 m Physical Exam Constitutional: Appearance: Normal appearance. HENT: Head: Normocephalic. Cardiovascular: Rate and Rhythm: Normal rate and regular rhythm. Pulses: Normal pulses. Heart sounds: No murmur heard. Comments: left sided implant healed well, no ecchymosis, hematoma or drainage noted Pulmonary: Effort: Pulmonary effort is normal. No respiratory distress. Musculoskeletal: General: No swelling. Skin: General: Skin is warm and dry. Neurological: Mental Status: He is alert. Psychiatric: Mood and Affect: Mood normal. My Interpretation of Reviewed Study(s): Echo (June 2021): Normal LV function with an EF of 60 to 65%. Biatrial enlargement with a small PFO. Echo (April 2024): Mildly reduced LV function with an EF of 42%. Mildly dilated left atrium and normal right atrial size. [id number] Score Age >= 75: 2 Sex Male: 0 CHF History No: 0 HTN Yes: 1 Stroke/TIA/Thromboembolism No: 0 Vascular Dz: CAD/PAD/Aortic Plaque No: 0 DM Yes: 1 Total Score 4 Assessment/Plan #Persistent atrial fibrillation s/p RFA (PVI, PWI November) AF Dx History: 2020; h/o Cardioversion: Yes; AAD Use: Amiodarone 200mg (current); Anticoagulation use: Xarelto 20mg Daily (current); h/o Ablation: Yes; [id number] Score: 4 On device interrogation patient has been in persistent atrial fibrillation at least since January 2023. Overall rates appear to be relatively controlled with ventricular rate somewhere in the 60s to 90s and therefore we could opt for a rate control strategy with the atrial fibrillation. Pt was previously a pt of Dr. Sloan. c/w AC: Xarelto 20mg Daily Stop Amiodarone Start Metoprolol tartrate 25mg daily for rate control #Amiodarone - High risk medication Labs: Recent Labs 05/13/24 0903 04/25/24 0726 01/25/24 0711 11/16/23 0805 10/23/23 0946 06/13/23 1159 04/25/23 0659 01/26/23 1450 10/03/22 0808 07/04/22 0836 04/17/22 0736 AST -- 13 13 11 14 14 12 < > 13 < > 13 ALT -- 12 9* 10 13 13 9* < > 13 < > 9* TSH 0.03* 0.03* -- -- -- 2.16 -- 3.19 -- 3.09 -- 2.84 < > = values in this interval not displayed. Follow up: TSH (Every 6 months): Elevated stopping Amiodarone LFTs (Every 6 months): Dated Apr 2024; Within normal limits / No change compared to prior ECG (Annual): ECG Dated ; QT/Qtc Stable Discontinue Amiodarone 100mg once a day # SSS s/p dcPPM (2021) Patient has a [employer] Dual chamber pacemaker. Anticipated battery longevity 10.7yrs (as of 05/13/24). RA pacing 3.9%, RV pacing 92.1%. Arrhythmias noted on interrogation: AF burden 99.7% Lead parameters stable with steady impedance and thresholds noted: Stable c/t follow with device clinic as scheduled #Fatigue #Shortness, HERNANDEZ Unclear etiology. Pt's Sx have been over last 6 months. Given h/o DM, HTN, age possible. 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 Patient's overall heart rates have been relatively controlled but currently on amiodarone. We discussed the options of upgrading his pacemaker to a PROPERTY CLAIM REP-P to allow for better BiV synchrony and possible AV node ablation given his almost permanent atrial fibrillation. Patient is agreeable Nuclear Stress Test If abnormal then refer to Dr. Morgan for coronary angiography to assess for underlying CAD If normal or no CAD noted then plan for PROPERTY CLAIM REP-P upgrade +/- AV node ablation (patient okay scheduling after nuclear stress test results if that is good to be the plan without seeing me in the office again) Return to Clinic: Patient should return to the EP Clinic in 2 months Aravind Jimenez MD [facility] Cardiac Electrophysiology [email or web address] Disclaimer: This note was dictated by speech recognition, and every effort has been made to prevent any error in scrum project manager, however minor errors may be present documented in this encounter [facility] Work Phone: 05-09-2024 Evaluation + Plan note Associated Problem(s): Permanent atrial fibrillation (Multi) Not aware of palpitations, continue with anticoagulation. [facility] Work Phone: 05-09-2024 Miscellaneous Notes Associated Problem(s): Permanent atrial fibrillation (Multi) Not aware of palpitations, continue with anticoagulation. Associated Problem(s): Chronic low back pain Back pain does not limit daily activity, follows with pain management physicians, tolerating gabapentin, no change. Associated Problem(s): GERD (gastroesophageal reflux disease) Continue with PPI no issues with dysphagia. Associated Problem(s): Low testosterone in male Tolerating testosterone replacement, free and total testosterone levels now are much improved and within normal ranges. Continue to monitor liver function, CBC and PSA testing. Patient does notice some improvement with replacement. Associated Problem(s): Type II 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 (Multi) A1c testing below 7, continue with current medications. Associated Problem(s): Sinus node dysfunction (Multi) Post pacemaker placement has routine follow-up and electrolyte human resources team member, no change. Associated Problem(s): Peripheral arterial occlusive disease ([facility]) Stable with current medication not limited by claudication, distal pulses seem to be intact no open areas. Associated Problem(s): Hypertension, essential, benign Blood pressure stable renal function stable, no change with current medications. Associated Problem(s): Hyperlipidemia Stable with current dose of statin, no change. Associated Problem(s): Chronic diastolic congestive heart failure Patient seems to be stable currently, continue with current medications and follow-up with cardiology. documented in this encounter [facility] Work Phone: 05-09-2024 Evaluation + Plan note Associated Problem(s): Chronic low back pain Back pain does not limit daily activity, follows with pain management physicians, tolerating gabapentin, no change. [facility] Work Phone: 05-09-2024 Evaluation + Plan note Associated Problem(s): GERD (gastroesophageal reflux disease) Continue with PPI no issues with dysphagia. [facility] Work Phone: 05-09-2024 Evaluation + Plan note Associated Problem(s): Low testosterone in male Tolerating testosterone replacement, free and total testosterone levels now are much improved and within normal ranges. Continue to monitor liver function, CBC and PSA testing. Patient does notice some improvement with replacement. [facility] Work Phone: 05-09-2024 Evaluation + Plan note Associated Problem(s): Type II 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 (Multi) A1c testing below 7, continue with current medications. [facility] Work Phone: 05-09-2024 Evaluation + Plan note Associated Problem(s): Sinus node dysfunction (Multi) Post pacemaker placement has routine follow-up and electrolyte human resources team member, no change. [facility] Work Phone: 05-09-2024 Evaluation + Plan note Associated Problem(s): Peripheral arterial occlusive disease ([facility]) Stable with current medication not limited by claudication, distal pulses seem to be intact no open areas. [facility] Work Phone: 05-09-2024 Evaluation + Plan note Associated Problem(s): Hypertension, essential, benign Blood pressure stable renal function stable, no change with current medications. [facility] Work Phone: 05-09-2024 Evaluation + Plan note Associated Problem(s): Hyperlipidemia Stable with current dose of statin, no change. [facility] Work Phone: 05-09-2024 Evaluation + Plan note Associated Problem(s): Chronic diastolic congestive heart failure Patient seems to be stable currently, continue with current medications and follow-up with cardiology. [facility] Work Phone: 05-09-2024 History of Present illness Narrative Subjective Patient ID: Rocio Sandoval is a 78 y.o. male who presents for 3 MO LABS. HPI No headache, chest pain, shortness of breath, dizziness, lightheadedness, or edema No low blood sugars since last OV, seen opthalmology in the past year, and no numbness or tingling in feet, skin normal. 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 Reviewed dietary, caffeine, tobacco, alcohol, and NSAID use. No dyspepsia, dysphagia, reflux, melena, or abdominal pain. No urine issues Less fatigue, tolerating testosterone injections No bleeding issues Review of Systems Constitutional: Negative for activity change, appetite change, fatigue and unexpected weight change. HENT: Negative for ear pain, nosebleeds, rhinorrhea, sneezing and trouble swallowing. Respiratory: Negative for cough, shortness of breath and wheezing. Cardiovascular: Negative for chest pain, palpitations and leg swelling. Gastrointestinal: Negative for abdominal distention, abdominal pain, constipation, diarrhea, nausea and vomiting. Genitourinary: Negative for difficulty urinating. Musculoskeletal: Positive for back pain. Negative for arthralgias. Skin: Negative for rash. Neurological: Negative for dizziness, light-headedness, numbness and headaches. Hematological: Negative for adenopathy. Psychiatric/Behavioral: Negative for behavioral problems, dysphoric mood and sleep disturbance. The patient is not nervous/anxious. All other systems reviewed and are negative. Objective BP 140/70 Pulse 80 Ht 1.88 m (6' 2) Wt 110 kg (241 lb 9.6 oz) SpO2 98% BMI 31.02 kg/m Physical Exam Vitals and nursing note reviewed. Constitutional: General: He is not in acute distress. Appearance: Normal appearance. He is not toxic-appearing. HENT: Head: Normocephalic and atraumatic. Right Ear: Tympanic membrane, ear canal and external ear normal. Left Ear: Tympanic membrane, ear canal and external ear normal. Nose: Nose normal. Mouth/Throat: Mouth: Mucous membranes are moist. Pharynx: Oropharynx is clear. Eyes: Extraocular Movements: Extraocular movements intact. Conjunctiva/sclera: Conjunctivae normal. Pupils: Pupils are equal, round, and reactive to light. Cardiovascular: Rate and Rhythm: Normal rate and regular rhythm. Pulses: Normal pulses. Heart sounds: Normal heart sounds. Pulmonary: Effort: Pulmonary effort is normal. Breath sounds: Normal breath sounds. Abdominal: General: Abdomen is flat. Bowel sounds are normal. Palpations: Abdomen is soft. Musculoskeletal: Cervical back: Normal range of motion and neck supple. Skin: General: Skin is warm and dry. Capillary Refill: Capillary refill takes less than 2 seconds. Neurological: General: No focal deficit present. Mental Status: He is alert and oriented to person, place, and time. Mental status is at baseline. Psychiatric: Mood and Affect: Mood normal. Behavior: Behavior normal. Assessment/Plan Problem List Items Addressed This Visit ICD-10-CM Lumbosacral spondylosis M47.817 Relevant Orders Follow Up In Primary Care - Established Chronic diastolic congestive heart failure I50.32 Patient seems to be stable currently, continue with current medications and follow-up with cardiology. Relevant Medications empagliflozin (Jardiance) 25 mg Other Relevant Orders Follow Up In Primary Care - Established Chronic low back pain M54.50, G89.29 Back pain does not limit daily activity, follows with pain management physicians, tolerating gabapentin, no change. Relevant Orders Follow Up In Primary Care - Established Generalized osteoarthritis of multiple sites M15.9 Relevant Orders Follow Up In Primary Care - Established GERD (gastroesophageal reflux disease) K21.9 Continue with PPI no issues with dysphagia. Relevant Orders Follow Up In Primary Care - Established Hyperlipidemia E78.5 Stable with current dose of statin, no change. Relevant Orders Follow Up In Primary Care - Established Comprehensive Metabolic Panel Lipid Panel Hypertension, essential, benign I10 Blood pressure stable renal function stable, no change with current medications. Relevant Orders Follow Up In Primary Care - Established Albumin-Creatinine Ratio, Urine Random Comprehensive Metabolic Panel 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 stenosis M48.062 Relevant Orders Follow Up In Primary Care - Established Peripheral arterial occlusive disease ([facility]) I77.9 Stable with current medication not limited by claudication, distal pulses seem to be intact no open areas. Sacroiliitis ([facility]) M46.1 Relevant Orders Follow Up In Primary Care - Established Permanent atrial fibrillation ([facility]) I48.21 Not aware of palpitations, continue with anticoagulation. Relevant Orders Follow Up In Primary Care - Established CBC and Auto Differential Comprehensive Metabolic Panel Sinus node dysfunction ([facility]) I49.5 Post pacemaker placement has routine follow-up and electrolyte human resources team member, no change. Type II 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 ([facility]) - Primary E11.9 A1c testing below 7, continue with current medications. Relevant Medications empagliflozin (Jardiance) 25 mg metFORMIN XR (Glucophage-XR) 750 mg 24 hr tablet Other Relevant Orders Follow Up In Primary Care - Established Albumin-Creatinine Ratio, Urine Random Comprehensive Metabolic Panel Hemoglobin A1C Thyroid Stimulating Hormone Lipid Panel Low testosterone in male R79.89 Tolerating testosterone replacement, free and total testosterone levels now are much improved and within normal ranges. Continue to monitor liver function, CBC and PSA testing. Patient does notice some improvement with replacement. Relevant Orders Follow Up In Primary Care - Established Testosterone,Free and Total PSA Elevated PSA measurement R97.20 Relevant Orders PSA documented in this encounter [facility] Work Phone: 05-01-2024 History of Present illness Narrative Subjective Patient ID: Rocio Sandoval is a 78 y.o. 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 Today he reports Lt side lower back at belt line and lower back/upper gluteal at times goes into his lt leg and foot rates 4/10 now and 8-9/10, describes ache. He is very active and takes Gabapentin and Tylenol 8hr and and 500mg in the after noon this helps ease his pain some. ) RACHEL score 36%. Ludivina Duff RN 05/01/24 10:20 AM Patient is an 78-year-old male. He presents today for follow-up after undergoing L4-5 epidural steroid injection. This was done on 03/28/2024. Gave him significant relief for a few days but nothing more significant than that. 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 He was doing a lot of things outside. Unfortunate, at this time he is still noticing lower back pain with left radiating leg pain but this is now going down into the top of his foot. He rates the discomfort a 4-9/10. The more he is up and active the worst it gets. He is is Tylenol and gabapentin. Some relief but not enough. He wonders what other options he has to try to get relief as he does not want to have another surgery. Review of Systems Constitutional: Negative. HENT: Negative. Eyes: Negative. Respiratory: Negative. Cardiovascular: Negative. Gastrointestinal: Negative. Endocrine: Negative. Genitourinary: Negative. Musculoskeletal: Positive for arthralgias, back pain, gait problem and myalgias. Skin: Negative. Allergic/Immunologic: Negative. Neurological: Positive for weakness and numbness. Hematological: Negative. Psychiatric/Behavioral: Negative. Objective Physical Exam Vitals and nursing note reviewed. Constitutional: General: He is not in acute distress. Appearance: Normal appearance. He is not ill-appearing. HENT: Head: Normocephalic and atraumatic. Right Ear: External ear normal. Left Ear: External ear normal. Nose: Nose normal. Mouth/Throat: Pharynx: Oropharynx is clear. Eyes: Conjunctiva/sclera: Conjunctivae normal. Cardiovascular: Rate and Rhythm: Normal rate and regular rhythm. Pulses: Normal pulses. Pulmonary: Effort: Pulmonary effort is normal. Breath sounds: Normal breath sounds. Musculoskeletal: General: Normal range of motion. Cervical back: Normal range of motion. Comments: 5/5 lower extremity strength Negative Nima Skin: General: Skin is warm and dry. Neurological: General: No focal deficit present. Mental Status: He is alert and oriented to person, place, and time. Mental status is at baseline. Psychiatric: Mood and Affect: Mood normal. Behavior: Behavior normal. Thought Content: Thought content normal. Judgment: Judgment normal. MR lumbar spine wo IV contrast Status: Final result PACS Images Show images for MR lumbar spine wo IV contrast Signed by Signed Time Phone Pager Rocio Go MD 09/24/2023 13:33 [id number] Exam Information Status Exam Begun Exam Ended Final 09/24/2023 11:33 09/24/2023 12:02 Study Result Narrative & Impression Interpreted By: Rocio Go, STUDY: MR LUMBAR SPINE WO IV CONTRAST performed 09/24/2023 12:02 pm INDICATION: Signs/Symptoms:lower back and leg pain. COMPARISON: Lumbar spine radiographs dated 08/07/2023. MRI lumbar spine performed 03/31/2021. ACCESSION NUMBER(S): [id number] ORDERING CLINICIAN: REGGIE ARAGON TECHNIQUE: Multiplanar multisequence MR imaging of the lumbar spine performed without intravenous contrast. Sagittal T1, T2, STIR, axial T1 and T2 weighted images of the lumbar spine were acquired. FINDINGS: Segmentation: Partially formed S1-S2 disc. 5 non rib-bearing lumbar vertebral bodies are designated on this examination. Conus: The lower thoracic cord appears unremarkable. The conus terminates at the L2 vertebral body level. Cauda equina are unremarkable. Epidural fluid: None. Alignment: Mild rotatory levo scoliosis as evident on localizer imaging with apex at L2-L3. Lumbar alignment is otherwise maintained. Vertebral bodies: Minimal chronic anterior wedging of T12 and L1. Lumbar vertebral body heights are otherwise maintained. Marrow signal: Type 2 Modic endplate signal change posteriorly at L2-L3. No focal STIR hyperintensity/marrow edema. Intervertebral discs: Tiny Schmorl's node components at T11-T12. Moderate multilevel degenerative disc height loss. Multilevel disc desiccation. Probable vacuum disc components at L3-L4 and L4-L5. Degenerative change: T12-L1: Mild bilateral facet arthropathy with ligamentum flavum hypertrophy. Minimal disc bulge with tiny left subarticular disc osteophyte protrusion component. Left lateral recess narrowing with no additional spinal canal stenosis. No neural foraminal narrowing. L1-2: Mild facet arthropathy with ligamentum flavum hypertrophy. No spinal canal stenosis or neural foraminal narrowing. L2-3: There is suggestion of previous right hemilaminectomy. Bilateral facet arthropathy. Kicl-so-nyhwvcvd disc bulge with hypertrophic endplate spurring. Mild narrowing of the lateral recesses without spinal canal stenosis. Mild bilateral neural foraminal narrowing. L3-4: Possible remote right hemilaminectomy. Mild bilateral facet arthropathy. Mild disc bulge and endplate spurring. Narrowing of the lateral recesses without additional spinal canal stenosis. Mild bilateral neural foraminal narrowing. L4-5: Moderate facet arthropathy with ligamentum flavum hypertrophy. Previous right facet synovial cyst is no longer definitively visualized. Moderate disc bulge with hypertrophic endplate spurring. Moderate trefoil narrowing of the thecal sac and lateral recesses. Moderate irrp-pbogspw-srnm-right neural foraminal narrowing with facet arthropathy contacting the exiting left L4 nerve root. L5-S1: Mild facet arthropathy. Mild disc bulge with trace posterior fissuring. Similar left lateral recess narrowing. No additional spinal canal stenosis. No substantial neural foraminal narrowing. Soft tissues: Incomplete visualization of a large, exophytic, cystic appearing lesion arising from the left kidney. Fatty atrophy of the posterior paraspinal musculature. IMPRESSION: Similar to minimally worsened lumbar degenerative change. At L4-L5 the previously identified right facet synovial cyst is no longer clearly delineated. There is moderate spinal canal stenosis/lateral recess narrowing with moderate khku-zokyano-torf-right neural foraminal narrowing with facet osteophyte contacting/possibly impinging the exiting left L4 nerve root. 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 Other orders - NPO Diet Except: Sips with meds; Effective now; Standing - Height and weight; Standing - Insert and maintain peripheral IV; Standing - Saline lock IV; Standing - POCT Glucose; Standing - Type And Screen; Standing - Inpatient consult to Respiratory Care; Standing - Adult diet Regular; Standing - Vital Signs; Standing - Notify physician - Standard Parameters; Standing - Continue IV fluids ordered pre-procedure; Standing - Prior to Discharge O2 Weaning; Standing - Pulse oximetry, continuous; Standing - Discharge patient; Standing - iohexol (OMNIPaque) 300 mg iodine/mL solution 6 mL - lidocaine PF (Xylocaine) 20 mg/mL (2 %) injection 120 mg - lidocaine PF (Xylocaine) 20 mg/mL (2 %) injection 10 mg - sodium chloride (PF) 0.9% solution 0.5 mL - dexAMETHasone (PF) (Decadron) injection 10 mg Patient is an 78-year-old male with a past medical history significant for the above-mentioned medical diagnoses. He underwent recent L4-5 epidural steroid injection that gave him significant but short-lived relief. Prior to that he underwent bilateral L4-5 transforaminal epidural steroid injection with significant relief but this only lasted for about 2 months. At this time, he is really only having left radiating leg pain. He has previously trialed and failed all reasonable conservative treatments. At this time, I recommended to patient a left-sided L5-S1 transforaminal epidural steroid injection to be done under fluoroscopy for both diagnostic and therapeutic purposes. Procedure was discussed. Risks and benefits were discussed. Patient is agreeable. He will follow-up 2 weeks after the injection for reevaluation. Medication holds including vitamins for 1 week and Xarelto for 3 days was discussed. documented in this encounter [facility] Work Phone: 04-28-2024 History of Present illness Narrative Subjective Rocio Sandoval is a 78 y.o. male with pseudogout, DM, HTN, A fibrillation (on xarelto, s/p ablation), has cardiac pacemaker, and ALISHA, presents for follow up Current rheum meds: - Colchicine 0.6 mg daily PRN for attacks - Tylenol 500 mg BID Previous rheum meds: - None HPI Saw ortho for knee pain, it is referred pain from his back with radiculopathy and stenosis, suggested PT. Knee replacement is fine Saw podiatry for feet care Saw pain management and had an epidural injection in 03/28 Did not help He will be seeing them in 3 days Left thumb trigger finger No pseudogout attacks, rarely uses colchicine Tried it today to see if it helps with his back, he said it helped some Will be seeing cardiology soon for low EF Feels fatigued, though the testosterone injection will help with that but they didn't No CKD Compliant with meds No side effects reported ROS: As per HPI Rheum hx (Recall from Dr. Solorio's notes): Presenting sx: Patient states couple months ago he started to experience localized pain, swelling, stiffness around the left wrist and dorsum of the hand with associated difficulty making a fist. The symptoms are intermittent, the stiffness improves with activity and mostly localized to the left with mild symptoms on the right. 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 He does not take any Tylenol or NSAIDs on regular basis. 3 weeks ago he was working in [employer] and started to have allergy sx for which he recently saw his primary care doctor and was prescribed prednisone 20 mg once a day. Patient states he started this last night and did notice an improvement in the stiffness swelling and pain at his wrist and the hand. He denies significant sx of neck pain, shoulder pain, hip involvement. He has chronic low back pain related to degenerative disc disease and has had back surgeries in the past (last three years ago). History of left knee replacement. He currently complains of intermittent right knee pain. No significant swelling He has chronic neuropathy in left foot- on gabapentin 600mg 3 times a day Has been taking tylenol 1 tab at night and it helps. Has had issues with left elbow bursitis sees orthopedics. This has previously been drained 3 times however recurs and more recently had a procedure done with removal of the bursa sac. It appears to be healing but he still has stitches in place. He denies prior history of gout, unsure if he has had fluid analysis on the aspirations/bursa. Denies recent fevers. PSH: left knee replacement, back surgery SocHX: Denies smoking, ETOH use or recreational drug use Amiodarone was started recently, no other new medications. He is on a stable dose of atorvastatin Patient Active Problem List Diagnosis Bilateral renal stones BPH (benign prostatic hyperplasia) Bradycardia Carpal tunnel syndrome of right wrist Cervical spondylosis Lumbosacral spondylosis Thoracic spondylosis Chronic diastolic congestive heart failure Chronic low back pain Chronotropic incompetence Erectile dysfunction Fatigue Generalized osteoarthritis of multiple sites GERD (gastroesophageal reflux disease) Hyperlipidemia Hypertension, essential, benign Atherosclerosis of coronary artery 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 stenosis Obesity (BMI 30-39.9) Obstructive sleep apnea on CPAP Peripheral arterial occlusive disease (CMS-HCC) Phimosis Prolapsed lumbar disc Sacroiliitis (CMS-HCC) Sinus node dysfunction (Multi) Synovial cyst of right popliteal space Thoracic radiculitis Type II 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 (Multi) Venous insufficiency of leg Low testosterone in male Calcium pyrophosphate deposition disease (CPPD) Arthropathy of right knee Eczema Lumbar radiculopathy Cervical radiculitis Chronic pain of left knee History of left knee replacement Past Medical History: Diagnosis Date Benign prostatic hyperplasia without lower urinary tract symptoms 07/08/2021 BPH (benign prostatic hyperplasia) Calculus of kidney 12/30/2019 Bilateral renal stones Carpal tunnel syndrome, right upper limb 12/31/2019 Carpal tunnel syndrome of right wrist Cough 10/06/2022 Depression, unspecified 01/05/2022 Depression Disorder of arteries and arterioles, unspecified 01/05/2022 Peripheral arterial occlusive disease Dizziness 10/06/2022 Essential (primary) hypertension 06/29/2022 Hypertension, essential, benign Gastro-esophageal reflux disease without esophagitis 01/05/2022 GERD (gastroesophageal reflux disease) Hyperlipidemia, unspecified 01/05/2022 Hyperlipemia Influenza A 10/06/2022 Male erectile dysfunction, unspecified 09/03/2019 Erectile dysfunction Obesity, unspecified 08/16/2020 Obesity (BMI 30-39.9) Obstructive sleep apnea (adult) (pediatric) 01/05/2022 ALISHA on CPAP Personal history of diseases of the skin and subcutaneous tissue History of actinic keratosis Personal history of other infectious and parasitic diseases History of onychomycosis Personal history of other infectious and parasitic diseases History of tinea pedis Plantar fascial fibromatosis Plantar fasciitis Polyosteoarthritis, unspecified 09/23/2019 Generalized osteoarthritis of multiple sites Rash of genitalia 10/06/2022 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s (Multi) 01/05/2022 Type II 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 Venous insufficiency (chronic) (peripheral) Venous insufficiency of leg Past Surgical History: Procedure Laterality Date CARDIAC PACEMAKER PLACEMENT 06/2022 LUMBAR EPIDURAL INJECTION Bilateral 12/07/2023 Bilat L4/5 TFESI OTHER SURGICAL HISTORY 06/18/2019 Lumbar vertebral fusion OTHER SURGICAL HISTORY 06/18/2019 Retinal detachment repair OTHER SURGICAL HISTORY 06/18/2019 Phacoemulsification of cataract and insertion of intraocular lens OTHER SURGICAL HISTORY 06/18/2019 Circumcision OTHER SURGICAL HISTORY 06/18/2019 Knee replacement OTHER SURGICAL HISTORY 06/18/2019 Sigmoidoscopy flexible OTHER SURGICAL HISTORY 06/18/2019 Dermatological cryotherapy OTHER SURGICAL HISTORY 06/18/2019 Esophagogastroduodenoscopy OTHER SURGICAL HISTORY 06/18/2019 Nail debridement OTHER SURGICAL HISTORY 06/18/2019 Epidural space injection OTHER SURGICAL HISTORY 07/07/2020 Colonoscopy OTHER SURGICAL HISTORY 01/05/2022 Catheter ablation OTHER SURGICAL HISTORY 08/16/2020 Cardiac catheterization OTHER SURGICAL HISTORY 05/11/2020 Inguinal hernia repair PACEMAKER PLACEMENT Social History Socioeconomic History Marital status: Spouse name: Not on file Number of children: Not on file Years of education: Not on file Highest education level: Not on file Occupational History Not on file Tobacco Use Smoking status: Never Passive exposure: Never Smokeless tobacco: Never Vaping Use Vaping status: Never Used Substance and Sexual Activity Alcohol use: Never Drug use: Never Sexual activity: Defer Other Topics Concern Not on file Social History Narrative Not on file Social Drivers of Health Financial Resource Strain: Not on file Food Insecurity: Not on file Transportation Needs: Not on file Physical Activity: Not on file Stress: Not on file Social Connections: Not on file Intimate Partner Violence: Not on file Housing Stability: Not on file No Known Allergies Current Outpatient Medications: amiodarone (Pacerone) 200 mg tablet, TAKE 1/2 TABLET BY MOUTH EVERY DAY, Disp: 45 tablet, Rfl: 3 atorvastatin (Lipitor) 40 mg tablet, Take 1 tablet (40 mg) by mouth once daily at bedtime., Disp: 90 tablet, Rfl: 3 B6/folic/B12/coffee/phosphatid (NEURIVA PLUS BRAIN PERFORMANCE ORAL), Take 1 tablet by mouth once daily., Disp: , Rfl: colchicine 0.6 mg tablet, Take 1 tablet (0.6 mg) by mouth once daily as needed for muscle/joint pain., Disp: 90 tablet, Rfl: 1 empagliflozin (Jardiance) 25 mg, Take 1 tablet (25 mg) by mouth once daily., Disp: 90 tablet, Rfl: 3 fexofenadine (Sulaiman) 180 mg tablet, Take 1 tablet (180 mg) by mouth once daily., Disp: 90 tablet, Rfl: 3 FreeStyle Vince 14 Day [place] misc, Use as instructed, Disp: 1 each, Rfl: 0 FreeStyle Vince 14 Day Sensor kit, Use as instructed, Disp: 2 each, Rfl: 11 furosemide (Lasix) 20 mg tablet, Take 1 tablet (20 mg) by mouth once daily., Disp: , Rfl: gabapentin (Neurontin) 800 mg tablet, Take 1 tablet (800 mg) by mouth 3 times a day. Takes 3 time a day, Disp: 270 tablet, Rfl: 3 melatonin 5 mg capsule, Take by mouth., Disp: , Rfl: metFORMIN XR (Glucophage-XR) 750 mg 24 hr tablet, Take 1 tablet (750 mg) by mouth 2 times a day., Disp: 180 tablet, Rfl: 3 multivitamin (MULTIPLE VITAMINS ORAL), Take 1 tablet by mouth once daily., Disp: , Rfl: omeprazole (PriLOSEC) [address] capsule, Take 1 capsule (40 mg) by mouth once daily. (Patient not taking: Reported on 03/13/2024), Disp: 90 capsule, Rfl: 3 rivaroxaban (Xarelto) 20 mg tablet, Take 1 tablet (20 mg) by mouth once daily., Disp: 90 tablet, Rfl: 3 tamsulosin (Flomax) 0.4 mg 24 hr capsule, Take 1 capsule (0.4 mg) by mouth once daily., Disp: 90 capsule, Rfl: 3 testosterone cypionate (Depo-Testosterone) 200 mg/mL injection, Inject 0.5 mL (100 mg) into the muscle every 14 (fourteen) days., Disp: 1 mL, Rfl: 5 vitamins A,C,O-tjea-zcblkb (Eye Multivitamin) 2,148 mcg-113 mg-45 mg-17.4mg tablet, Take 1 tablet by mouth once daily., Disp: , Rfl: Objective Visit Vitals BP 122/71 Pulse 92 Temp 36.9 C (98.4 F) Resp 20 Physical Exam: General: AAOx3, Cooperative Eyes: EOMI, conjunctiva clear, sclera white, anicteric Throat/Mouth: No oral deformities, no cheek swelling, mucosa appear moist, no oral ulcers noted or loss of dentition Skin: Some ecchymoses over forearms and hands MSK: Upper Extremities: Hand/Fingers: No erythema, edema, tenderness or warmth at DIP, PIP, or MCP joints, FROM grossly. 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 No nodules. No deformities. Mild squaring of his 1st CMC joints. Left thumb trigger finger Wrists: No erythema, edema, warmth or tenderness at wrist, FROM grossly Elbows: No tenderness, edema, erythema or warmth at elbows, FROM grossly. No nodules Shoulders: No edema, erythema, tenderness or warmth at shoulders. FROM Lower Extremities: Hips: No obvious deformities. No joint tenderness, normal ROM grossly. No trochanteric bursae TTP Knees: No tenderness, deformities, edema, rashes, or warmth, normal ROM grossly. No crepitus, no pes anserine bursa TTP. Scar over the left knee from replacement surgery Ankles, feet: No deformities, tenderness, edema, erythema, ulceration, or warmth at the ankle or MTP/IP joints, normal ROM grossly Spine: No spinal tenderness to palpation. No SI joint tenderness Lab Results Component Value Date WBC 7.9 04/25/2024 HGB 13.0 (L) 04/25/2024 HCT 42.0 04/25/2024 MCV 96 04/25/2024 PLT 309 04/25/2024 Chemistry Lab Results Component Value Date/Time NA 141 04/25/2024 0726 K 4.4 04/25/2024 0726 CL 106 04/25/2024 0726 CO2 29 04/25/2024 0726 BUN 14 04/25/2024 0726 CREATININE 1.02 04/25/2024 0726 Lab Results Component Value Date/Time CALCIUM 8.8 04/25/2024 0726 ALKPHOS 75 04/25/2024 0726 AST 13 04/25/2024 0726 ALT 12 04/25/2024 0726 BILITOT 0.7 04/25/2024 0726 Lab Results Component Value Date CRP 0.34 04/25/2024 Lab Results Component Value Date SEDRATE 29 (H) 04/25/2024 Lab Results Component Value Date ALT 12 04/25/2024 AST 13 04/25/2024 ALKPHOS 75 04/25/2024 BILITOT 0.7 04/25/2024 Lab Results Component Value Date URICACID 3.3 (L) 01/26/2023 Transthoracic Echo (TTE) [place] [id number], TRANSTHORACIC ECHOCARDIOGRAM REPORT Patient Name: ROCIO SANDOVAL Reading Physician: [id number] Stroud MD Study Date: 04/08/2024 Ordering Provider: Delma STROUD MRN/PID: [id number] Fellow: Nurse: Yaritza Tello RN Date of /Age: 2 1945 / 78 years Investigator Fraud: Trey Severino RDCS Gender: M Additional Staff: Height: 187.96 cm Admit Date: Weight: 105.24 kg Admission Status: Outpatient BSA / BMI: 2.31 m2 / 29.79 Department Location: [facility] Echo Lab kg/m2 Blood Pressure: 128 /72 mmHg Study Type: TRANSTHORACIC ECHO (TTE) COMPLETE Diagnosis/ICD: Unspecified systolic (congestive) heart failure (CHF)-I50.20 CPT Codes: Echo Complete w Full Doppler-85041 Study Detail: The following Echo studies were performed: 2D, M-Mode, Doppler and color flow. Definity used as a contrast agent for endocardial border definition and agitated saline used as a contrast agent for intraseptal flow evaluation. Total contrast used for this procedure was 2.00cc mL via IV push. PHYSICIAN INTERPRETATION: Left Ventricle: Left ventricular ejection fraction is mildly decreased, calculated by Pleitez's biplane at 42%. The patient is in atrial fibrillation which may influence the estimate of left ventricular function and transvalvular flows. There is global hypokinesis of the left ventricle with minor regional variations. The left ventricular cavity size is normal. Abnormal (paradoxical) septal motion, consistent with RV pacemaker. Left ventricular diastolic filling was indeterminate. Left Atrium: The left atrium is mildly dilated. A bubble study using agitated saline was performed. Bubble study is negative. Right Ventricle: The right ventricle is moderately enlarged. There is normal right ventricular global systolic function. A device is visualized in the right ventricle. Right Atrium: The right atrium is normal in size. Aortic Valve: The aortic valve is trileaflet. The aortic valve dimensionless index is 0.41. There is no evidence of aortic valve regurgitation. The peak instantaneous gradient of the aortic valve is 8.3 mmHg. The mean gradient of the aortic valve is 5.0 mmHg. Mitral Valve: The mitral valve is normal in structure. There is no evidence of mitral valve regurgitation. Tricuspid Valve: The tricuspid valve is structurally normal. There is mild tricuspid regurgitation. Pulmonic Valve: The pulmonic valve is structurally normal. There is no indication of pulmonic valve regurgitation. Pericardium: Small pericardial effusion localized near the left ventricle. Aorta: The aortic root is normal. Systemic Veins: The inferior vena cava appears dilated, with IVC inspiratory collapse less than 50%. CONCLUSIONS: 1. Left ventricular ejection fraction is mildly decreased, calculated by Pleitez's biplane at 42%. 2. There is global hypokinesis of the left ventricle with minor regional variations. 3. Left ventricular diastolic filling was indeterminate. 4. Abnormal septal motion consistent with RV pacemaker. 5. There is normal right ventricular global systolic function. 6. Moderately enlarged right ventricle. 7. Compared to prior echocardiogram dated 06/02/2021: Ejection fraction has declined. 8. The patient is in atrial fibrillation which may influence the estimate of left ventricular function and transvalvular flows. QUANTITATIVE DATA SUMMARY: 2D MEASUREMENTS: Normal Ranges: Ao Root d: 3.60 cm (2.0-3.7cm) LAs: 4.50 cm (2.7-4.0cm) IVSd: 1.10 cm (0.6-1.1cm) LVPWd: 1.05 cm (0.6-1.1cm) LVIDd: 5.90 cm (3.9-5.9cm) LVIDs: 3.64 cm LV Mass Index: 113.9 g/m2 LV % FS 38.3 % LA VOLUME: Normal Ranges: LA Vol A4C: 97.7 ml (22+/-6mL/m2) LA Vol A2C: 76.0 ml LA Vol BP: 90.4 ml LA Vol Index A4C: 42.2ml/m2 LA Vol Index A2C: 32.9 ml/m2 LA Vol Index BP: 39.1 ml/m2 LA Area A4C: 28.9 cm2 LA Area A2C: 24.3 cm2 LA Major Barnhart A4C: 7.3 cm LA Major Barnhart A2C: 6.6 cm LA Volume Index: 41.7 ml/m2 LA Vol A4C: 96.3 ml LA Vol A2C: 74.2 ml LA Vol Index BSA: 36.8 ml/m2 LV SYSTOLIC FUNCTION BY 2D PLANIMETRY (MOD): Normal Ranges: EF-A4C View: 39 % (>=55%) EF-A2C View: 46 % EF-Biplane: 42 % LV EF Reported: 42 % AORTIC VALVE: Normal Ranges: AoV Vmax: 1.44 m/s (<=1.7m/s) AoV Peak P.3 mmHg (<20mmHg) AoV Mean P.0 mmHg (1.7-11.5mmHg) LVOT Max Marin: 0.64 m/s (<=1.1m/s) AoV VTI: 33.90 cm (18-25cm) LVOT VTI: 14.00 cm LVOT Diameter: 2.10 cm (1.8-2.4cm) AoV Area, VTI: 1.43 cm2 (2.5-5.5cm2) AoV Area,Vmax: 1.55 cm2 (2.5-4.5cm2) AoV Dimensionless Index: 0.41 RIGHT VENTRICLE: RV Basal 5.19 cm RV Mid 3.66 cm RV Major 9.2 cm TAPSE: 23.1 mm RV s' 0.12 m/s TRICUSPID VALVE/RVSP: Normal Ranges: Peak TR Velocity: 2.80 m/s RV Syst Pressure: 34 mmHg (< 30mmHg) [id number] Joel Stroud MD Electronically signed on 04/08/2024 at 9:23:41 AM Final Xray knee 04/23: No acute osseous abnormality. Right knee degenerative changes at least moderate in severity in the medial knee compartment. Similar compared to 05/09/2022. Intact left total knee replacement. Xray hands 12/22 Left: Osteoarthritis is severe at the 1st CMC with intra-articular calcific bodies, mild at most of the interphalangeal joints. There is a 2 mm metallic body within the soft tissues near the 4th D IP joint. Additional small foreign body at the ulnar aspect of the hand is unchanged. There is soft tissue edema at the wrist. Right: Negative ulnar variance. No periosteal reaction or erosion. Mild osteoarthritis at the radiocarpal joint, 1st CMC, triscaphe joint, and most of the interphalangeal joints. No acute soft tissue abnormality. Minimal TFCC chondrocalcinosis. === 01/26/23 === KNEE Moderate medial compartment arthritis. Severe chondrocalcinosis which can be seen with CPPD arthropathy === 03/31/21 === MR LUMBAR SPINE W AND WO CONTRAST * Postoperative changes as described *Mild canal narrowing at L4/L5 partially due to a right-sided synovial cyst *Foraminal narrowing throughout the lumbar spine as described Assessment/Plan This is an 78 Y M with pseudogout and OA, presents for follow up Last seen in 11/22 Intermittent worsening symptoms with localized pain, swelling, stiffness, mostly at the wrist/hand L>R and R knee, no recurrence, prior involvement of L olecranon bursa with chronic bursitis, is most c/w crystal arthritis, CPPD (prior imaging does reveal chondrocalcinosis at TFCC and knee). No prior fluid analysis. Uric acid 3.3 Pt has underlying OA which maybe contributing to some joint pain/stiffness. Lower clinical suspicion for RA (no significant symmetrical/MCP involvement, RF/CCP negative), ESR/CRP, CK nml. His attacks are becoming more frequent lately and lasting longer. Will start him on colchicine PRN. Pt is agreeable after explaining the risks and benefits Labs: 04/24: Hb 13, Prt 6, rest of CBC, CMP, CRP, ESR, PSA wnl 01/22: Hb 12.7, Prt 6.3, rest of CBC, CMP wnl 11/22: Hb 12.7, rest of CBC, CMP, ESR, CRP wnl 10/23: CBC, CMP, vitamin B12, UA, Uprt, TSH wnl. HbA1c 7.3%, 06/23: Hb 12.4, rest of CBC, CMP wnl 04/23: Hb 12.6, CMP wnl 01/21: ESR 20, CRP 0.5, CCP, RF neg, UA 3.3 Imaging: Knee xray 01/21: Moderate medial compartment arthritis. Severe chondrocalcinosis which can be seen with CPPD arthropathy Xray right hand 12/22: Negative ulnar variance. No periosteal reaction or erosion. Mild osteoarthritis at the radiocarpal joint, 1st CMC, triscaphe joint, and most of the interphalangeal joints. No acute soft tissue abnormality. Minimal TFCC chondrocalcinosis. # CPPD arthritis, knee and hand xrays show chondrocalcinosis, no current effusion. Well controlled, on Colchicine PRN # OA of multiple joints # Back pain with prolonged activity, will be seein pain med again, epidural did not help - Colchicine 0.6 mg daily PRN for the attacks - Tylenol upto 1-2gm/day for OA - Labs with next mark (CBC, CMP, ESR, CRP) - Advised to get the flu vaccine before - Voltaren gel for left thumb trigger finger - If no improvement, will do a steroid injection - Follow up with pain management RTC in 6 months Plan, including risks and benefits, was discussed with the patient, informed on how to reach us. To schedule an appointment, call To reach the rheumatology office, call Sheyla Schultz MD Division of Rheumatology [facility] documented in this encounter [facility] Work Phone: 04-24-2024 History of Present illness Narrative Cardiology Subsequent Encounter Clinic Note Name: Rocio Sandoval : 1945 CC: Afib Active Issues: Rocio Sandoval is a 78 y.o. male with a medical history of diabetes, hypertension, hyperlipidemia, obstructive sleep apnea here to follow-up on new onset atrial fibrillation. Problem #1 atrial fibrillation; status post dual-chamber pacemaker -Underwent an ablation for atrial fibrillation November 2021; subsequently has been put on amiodarone -Has had some bradycardia following the procedure with some fatigue; since then underwent a dual-chamber pacemaker June 2022 with improvement in symptoms. Currently denies any significant dyspnea with exertion. Denies any orthopnea/PND. No lower extremity edema Problem #2 heart failure with preserved ejection fraction -Taking Lasix for 20 mg every other day. On Jardiance 25 mg daily -Notably his most recent echocardiogram 04/08/2024 notes a reduced ejection fraction at 40%. -Total pacing burden on device interrogation 03/18/2024 91% Past Medical History Past Medical History: Diagnosis Date Benign prostatic hyperplasia without lower urinary tract symptoms 07/08/2021 BPH (benign prostatic hyperplasia) Calculus of kidney 12/30/2019 Bilateral renal stones Carpal tunnel syndrome, right upper limb 12/31/2019 Carpal tunnel syndrome of right wrist Cough 10/06/2022 Depression, unspecified 01/05/2022 Depression Disorder of arteries and arterioles, unspecified 01/05/2022 Peripheral arterial occlusive disease Dizziness 10/06/2022 Essential (primary) hypertension 06/29/2022 Hypertension, essential, benign Gastro-esophageal reflux disease without esophagitis 01/05/2022 GERD (gastroesophageal reflux disease) Hyperlipidemia, unspecified 01/05/2022 Hyperlipemia Influenza A 10/06/2022 Male erectile dysfunction, unspecified 09/03/2019 Erectile dysfunction Obesity, unspecified 08/16/2020 Obesity (BMI 30-39.9) Obstructive sleep apnea (adult) (pediatric) 01/05/2022 ALISHA on CPAP Personal history of diseases of the skin and subcutaneous tissue History of actinic keratosis Personal history of other infectious and parasitic diseases History of onychomycosis Personal history of other infectious and parasitic diseases History of tinea pedis Plantar fascial fibromatosis Plantar fasciitis Polyosteoarthritis, unspecified 09/23/2019 Generalized osteoarthritis of multiple sites Rash of genitalia 10/06/2022 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s (Multi) 01/05/2022 Type II 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 Venous insufficiency (chronic) (peripheral) Venous insufficiency of leg Past Surgical History Past Surgical History: Procedure Laterality Date CARDIAC PACEMAKER PLACEMENT 06/2022 LUMBAR EPIDURAL INJECTION Bilateral 12/07/2023 Bilat L4/5 TFESI OTHER SURGICAL HISTORY 06/18/2019 Lumbar vertebral fusion OTHER SURGICAL HISTORY 06/18/2019 Retinal detachment repair OTHER SURGICAL HISTORY 06/18/2019 Phacoemulsification of cataract and insertion of intraocular lens OTHER SURGICAL HISTORY 06/18/2019 Circumcision OTHER SURGICAL HISTORY 06/18/2019 Knee replacement OTHER SURGICAL HISTORY 06/18/2019 Sigmoidoscopy flexible OTHER SURGICAL HISTORY 06/18/2019 Dermatological cryotherapy OTHER SURGICAL HISTORY 06/18/2019 Esophagogastroduodenoscopy OTHER SURGICAL HISTORY 06/18/2019 Nail debridement OTHER SURGICAL HISTORY 06/18/2019 Epidural space injection OTHER SURGICAL HISTORY 07/07/2020 Colonoscopy OTHER SURGICAL HISTORY 01/05/2022 Catheter ablation OTHER SURGICAL HISTORY 08/16/2020 Cardiac catheterization OTHER SURGICAL HISTORY 05/11/2020 Inguinal hernia repair PACEMAKER PLACEMENT Medications Current Outpatient Medications on File Prior to Visit Medication Sig Dispense Refill amiodarone (Pacerone) 200 mg tablet TAKE 1/2 TABLET BY MOUTH EVERY DAY 45 tablet 3 atorvastatin (Lipitor) 40 mg tablet Take 1 tablet (40 mg) by mouth once daily at bedtime. 90 tablet 3 B6/folic/B12/coffee/phosphatid (NEURIVA PLUS BRAIN PERFORMANCE ORAL) Take 1 tablet by mouth once daily. colchicine 0.6 mg tablet Take 1 tablet (0.6 mg) by mouth once daily as needed for muscle/joint pain. 90 tablet 1 empagliflozin (Jardiance) 25 mg Take 1 tablet (25 mg) by mouth once daily. 90 tablet 3 fexofenadine (Sulaiman) 180 mg tablet Take 1 tablet (180 mg) by mouth once daily. 90 tablet 3 FreeStyle Vince 14 Day [place] misc Use as instructed 1 each 0 FreeStyle Vince 14 Day Sensor kit Use as instructed 2 each 11 furosemide (Lasix) 20 mg tablet Take 1 tablet (20 mg) by mouth once daily. gabapentin (Neurontin) 800 mg tablet Take 1 tablet (800 mg) by mouth 3 times a day. Takes 3 time a day 270 tablet 3 melatonin 5 mg capsule Take by mouth. metFORMIN XR (Glucophage-XR) 750 mg 24 hr tablet Take 1 tablet (750 mg) by mouth 2 times a day. 180 tablet 3 multivitamin (MULTIPLE VITAMINS ORAL) Take 1 tablet by mouth once daily. rivaroxaban (Xarelto) 20 mg tablet Take 1 tablet (20 mg) by mouth once daily. 90 tablet 3 tamsulosin (Flomax) 0.4 mg 24 hr capsule Take 1 capsule (0.4 mg) by mouth once daily. 90 capsule 3 testosterone cypionate (Depo-Testosterone) 200 mg/mL injection Inject 0.5 mL (100 mg) into the muscle every 14 (fourteen) days. 1 mL 5 vitamins A,C,A-jfya-tjxkph (Eye Multivitamin) 2,148 mcg-113 mg-45 mg-17.4mg tablet Take 1 tablet by mouth once daily. omeprazole (PriLOSEC) [address] capsule Take 1 capsule (40 mg) by mouth once daily. (Patient not taking: Reported on 03/13/2024) 90 capsule 3 No current facility-administered medications on file prior to visit. Allergies No Known Allergies Social History Social History Tobacco Use Smoking status: Never Passive exposure: Never Smokeless tobacco: Never Vaping Use Vaping status: Never Used Substance Use Topics Alcohol use: Never Drug use: Never Family History Family History Problem Relation Name Age of Onset Other (CVA) Mother Diabetes type II Father Diabetes type II Sister Heart attack Brother Coronary artery disease Brother Kidney failure Brother Diabetes type II Brother Physical Examination Vitals: BP 128/76 Pulse 70 Ht 1.88 m (6' 2) Wt 109 kg (240 lb 14.4 oz) SpO2 98% BMI 30.93 kg/m General: awake, alert and oriented. No acute distress. Skin: Skin is warm, dry and intact without rashes or lesions. Appropriate color for ethnicity. Nail beds pink with no cyanosis or clubbing HEENT: normocephalic, atraumatic; conjunctivae are clear without exudates or hemorrhage. Sclera is non-icteric. Eyelids are normal in appearance without swelling or lesions. Hearing intact. Nares are patent bilaterally. Moist mucous membranes. Cardiovascular: Regular. No murmurs, gallops, or rubs are auscultated. S1 and S2 are heard and are of normal intensity. No JVD, no carotid bruits Respiratory: Thorax symmetric. CTAB, breath sounds vesicular. No crackles, wheezes or ronchi. Gastrointestinal: soft, non-distended, BS + x 4 Genitourinary: exam deferred Musculoskeletal: moves all extremities Extremities: pulses palpable bilaterally; no swelling or erythema; no edema Neurological: alert & oriented x 3; no focal deficits Psychiatric: appropriate mood and affect Labs/Imaging/Procedures Lab Results Component Value Date HGB 12.7 (L) 01/25/2024 HGB 12.7 (L) 11/16/2023 HGB 13.6 10/23/2023 PLT 278 01/25/2024 WBC 7.4 01/25/2024 NA 141 01/25/2024 K 4.2 01/25/2024 CREATININE 0.97 01/25/2024 CREATININE 0.96 11/16/2023 CREATININE 0.88 10/23/2023 BUN 17 01/25/2024 CALCIUM 8.7 01/25/2024 INR 1.4 (H) 03/16/2023 BNP 48 08/25/2022 TROPHS <3 08/25/2022 TROPHS <3 08/25/2022 LDLF 55 10/03/2022 Transthoracic Echo (TTE) Complete Result Date: 04/08/[address] [place] [address] [id number], TRANSTHORACIC ECHOCARDIOGRAM REPORT Patient Name: ROCIO Pack Physician: [id number] Joel Stroud MD Study Date: 04/08/2024 Ordering Provider: [id number] STROUD MRN/PID: [id number] Fellow: Nurse: Yaritza Tello RN Date of /Age: 2 1945 / 78 years Investigator Fraud: Trey Severino RDCS Gender: M Additional Staff: Height: 187.96 cm Admit Date: Weight: 105.24 kg Admission Status: Outpatient BSA / BMI: 2.31 m2 / 29.79 Department Location: [facility] Echo Lab kg/m2 Blood Pressure: 128 /72 mmHg Study Type: TRANSTHORACIC ECHO (TTE) COMPLETE Diagnosis/ICD: Unspecified systolic (congestive) heart failure (CHF)-I50.20 CPT Codes: Echo Complete w Full Doppler-89331 Study Detail: The following Echo studies were performed: 2D, M-Mode, Doppler and color flow. Definity used as a contrast agent for endocardial border definition and agitated saline used as a contrast agent for intraseptal flow evaluation. Total contrast used for this procedure was 2.00cc mL via IV push. PHYSICIAN INTERPRETATION: Left Ventricle: Left ventricular ejection fraction is mildly decreased, calculated by Pleitez's biplane at 42%. The patient is in atrial fibrillation which may influence the estimate of left ventricular function and transvalvular flows. There is global hypokinesis of the left ventricle with minor regional variations. The left ventricular cavity size is normal. Abnormal (paradoxical) septal motion, consistent with RV pacemaker. Left ventricular diastolic filling was indeterminate. Left Atrium: The left atrium is mildly dilated. A bubble study using agitated saline was performed. Bubble study is negative. Right Ventricle: The right ventricle is moderately enlarged. There is normal right ventricular global systolic function. A device is visualized in the right ventricle. Right Atrium: The right atrium is normal in size. Aortic Valve: The aortic valve is trileaflet. The aortic valve dimensionless index is 0.41. There is no evidence of aortic valve regurgitation. The peak instantaneous gradient of the aortic valve is 8.3 mmHg. The mean gradient of the aortic valve is 5.0 mmHg. Mitral Valve: The mitral valve is normal in structure. There is no evidence of mitral valve regurgitation. Tricuspid Valve: The tricuspid valve is structurally normal. There is mild tricuspid regurgitation. Pulmonic Valve: The pulmonic valve is structurally normal. There is no indication of pulmonic valve regurgitation. Pericardium: Small pericardial effusion localized near the left ventricle. Aorta: The aortic root is normal. Systemic Veins: The inferior vena cava appears dilated, with IVC inspiratory collapse less than 50%. CONCLUSIONS: 1. Left ventricular ejection fraction is mildly decreased, calculated by Pleitez's biplane at 42%. 2. There is global hypokinesis of the left ventricle with minor regional variations. 3. Left ventricular diastolic filling was indeterminate. 4. Abnormal septal motion consistent with RV pacemaker. 5. There is normal right ventricular global systolic function. 6. Moderately enlarged right ventricle. 7. Compared to prior echocardiogram dated 06/02/2021: Ejection fraction has declined. 8. The patient is in atrial fibrillation which may influence the estimate of left ventricular function and transvalvular flows. QUANTITATIVE DATA SUMMARY: 2D MEASUREMENTS: Normal Ranges: Ao Root d: 3.60 cm (2.0-3.7cm) LAs: 4.50 cm (2.7-4.0cm) IVSd: 1.10 cm (0.6-1.1cm) LVPWd: 1.05 cm (0.6-1.1cm) LVIDd: 5.90 cm (3.9-5.9cm) LVIDs: 3.64 cm LV Mass Index: 113.9 g/m2 LV % FS 38.3 % LA VOLUME: Normal Ranges: LA Vol A4C: 97.7 ml (22+/-6mL/m2) LA Vol A2C: 76.0 ml LA Vol BP: 90.4 ml LA Vol Index A4C: 42.2ml/m2 LA Vol Index A2C: 32.9 ml/m2 LA Vol Index BP: 39.1 ml/m2 LA Area A4C: 28.9 cm2 LA Area A2C: 24.3 cm2 LA Major Barnhart A4C: 7.3 cm LA Major Barnhart A2C: 6.6 cm LA Volume Index: 41.7 ml/m2 LA Vol A4C: 96.3 ml LA Vol A2C: 74.2 ml LA Vol Index BSA: 36.8 ml/m2 LV SYSTOLIC FUNCTION BY 2D PLANIMETRY (MOD): Normal Ranges: EF-A4C View: 39 % (>=55%) EF-A2C View: 46 % EF-Biplane: 42 % LV EF Reported: 42 % AORTIC VALVE: Normal Ranges: AoV Vmax: 1.44 m/s (<=1.7m/s) AoV Peak P.3 mmHg (<20mmHg) AoV Mean P.0 mmHg (1.7-11.5mmHg) LVOT Max Marin: 0.64 m/s (<=1.1m/s) AoV VTI: 33.90 cm (18-25cm) LVOT VTI: 14.00 cm LVOT Diameter: 2.10 cm (1.8-2.4cm) AoV Area, VTI: 1.43 cm2 (2.5-5.5cm2) AoV Area,Vmax: 1.55 cm2 (2.5-4.5cm2) AoV Dimensionless Index: 0.41 RIGHT VENTRICLE: RV Basal 5.19 cm RV Mid 3.66 cm RV Major 9.2 cm TAPSE: 23.1 mm RV s' 0.12 m/s TRICUSPID VALVE/RVSP: Normal Ranges: Peak TR Velocity: 2.80 m/s RV Syst Pressure: 34 mmHg (< 30mmHg) Delma Stroud MD Electronically signed on 04/08/2024 at 9:23:41 AM Final Transthoracic Echo (TTE) [place] [address] [phone], TRANSTHORACIC ECHOCARDIOGRAM REPORT Patient Name: ROCIO Pack Physician: Delma Stroud MD Study Date: 04/08/2024 Ordering Provider: Delma STROUD MRN/PID: [id number] Fellow: Nurse: Yaritza Tello RN Date of /Age: 2 1945 / 78 years Investigator Fraud: Trey Severino RDCS Gender: M Additional Staff: Height: 187.96 cm Admit Date: Weight: 105.24 kg Admission Status: Outpatient BSA / BMI: 2.31 m2 / 29.79 Department Location: [facility] Echo Lab kg/m2 Blood Pressure: 128 /72 mmHg Study Type: TRANSTHORACIC ECHO (TTE) COMPLETE Diagnosis/ICD: Unspecified systolic (congestive) heart failure (CHF)-I50.20 CPT Codes: Echo Complete w Full Doppler-[id number] Study Detail: The following Echo studies were performed: 2D, M-Mode, Doppler and color flow. Definity used as a contrast agent for endocardial border definition and agitated saline used as a contrast agent for intraseptal flow evaluation. Total contrast used for this procedure was 2.00cc mL via IV push. PHYSICIAN INTERPRETATION: Left Ventricle: Left ventricular ejection fraction is mildly decreased, calculated by Pleitez's biplane at 42%. The patient is in atrial fibrillation which may influence the estimate of left ventricular function and transvalvular flows. There is global hypokinesis of the left ventricle with minor regional variations. The left ventricular cavity size is normal. Abnormal (paradoxical) septal motion, consistent with RV pacemaker. Left ventricular diastolic filling was indeterminate. Left Atrium: The left atrium is mildly dilated. A bubble study using agitated saline was performed. Bubble study is negative. Right Ventricle: The right ventricle is moderately enlarged. There is normal right ventricular global systolic function. A device is visualized in the right ventricle. Right Atrium: The right atrium is normal in size. Aortic Valve: The aortic valve is trileaflet. The aortic valve dimensionless index is 0.41. There is no evidence of aortic valve regurgitation. The peak instantaneous gradient of the aortic valve is 8.3 mmHg. The mean gradient of the aortic valve is 5.0 mmHg. Mitral Valve: The mitral valve is normal in structure. There is no evidence of mitral valve regurgitation. Tricuspid Valve: The tricuspid valve is structurally normal. There is mild tricuspid regurgitation. Pulmonic Valve: The pulmonic valve is structurally normal. There is no indication of pulmonic valve regurgitation. Pericardium: Small pericardial effusion localized near the left ventricle. Aorta: The aortic root is normal. Systemic Veins: The inferior vena cava appears dilated, with IVC inspiratory collapse less than 50%. CONCLUSIONS: 1. Left ventricular ejection fraction is mildly decreased, calculated by Pleitez's biplane at 42%. 2. There is global hypokinesis of the left ventricle with minor regional variations. 3. Left ventricular diastolic filling was indeterminate. 4. Abnormal septal motion consistent with RV pacemaker. 5. There is normal right ventricular global systolic function. 6. Moderately enlarged right ventricle. 7. Compared to prior echocardiogram dated 06/02/2021: Ejection fraction has declined. 8. The patient is in atrial fibrillation which may influence the estimate of left ventricular function and transvalvular flows. QUANTITATIVE DATA SUMMARY: 2D MEASUREMENTS: Normal Ranges: Ao Root d: 3.60 cm (2.0-3.7cm) LAs: 4.50 cm (2.7-4.0cm) IVSd: 1.10 cm (0.6-1.1cm) LVPWd: 1.05 cm (0.6-1.1cm) LVIDd: 5.90 cm (3.9-5.9cm) LVIDs: 3.64 cm LV Mass Index: 113.9 g/m2 LV % FS 38.3 % LA VOLUME: Normal Ranges: LA Vol A4C: 97.7 ml (22+/-6mL/m2) LA Vol A2C: 76.0 ml LA Vol BP: 90.4 ml LA Vol Index A4C: 42.2ml/m2 LA Vol Index A2C: 32.9 ml/m2 LA Vol Index BP: 39.1 ml/m2 LA Area A4C: 28.9 cm2 LA Area A2C: 24.3 cm2 LA Major Barnhart A4C: 7.3 cm LA Major Barnhart A2C: 6.6 cm LA Volume Index: 41.7 ml/m2 LA Vol A4C: 96.3 ml LA Vol A2C: 74.2 ml LA Vol Index BSA: 36.8 ml/m2 LV SYSTOLIC FUNCTION BY 2D PLANIMETRY (MOD): Normal Ranges: EF-A4C View: 39 % (>=55%) EF-A2C View: 46 % EF-Biplane: 42 % LV EF Reported: 42 % AORTIC VALVE: Normal Ranges: AoV Vmax: 1.44 m/s (<=1.7m/s) AoV Peak P.3 mmHg (<20mmHg) AoV Mean P.0 mmHg (1.7-11.5mmHg) LVOT Max Marin: 0.64 m/s (<=1.1m/s) AoV VTI: 33.90 cm (18-25cm) LVOT VTI: 14.00 cm LVOT Diameter: 2.10 cm (1.8-2.4cm) AoV Area, VTI: 1.43 cm2 (2.5-5.5cm2) AoV Area,Vmax: 1.55 cm2 (2.5-4.5cm2) AoV Dimensionless Index: 0.41 RIGHT VENTRICLE: RV Basal 5.19 cm RV Mid 3.66 cm RV Major 9.2 cm TAPSE: 23.1 mm RV s' 0.12 m/s TRICUSPID VALVE/RVSP: Normal Ranges: Peak TR Velocity: 2.80 m/s RV Syst Pressure: 34 mmHg (< 30mmHg) [id number] Joel Stroud MD Electronically signed on 04/08/2024 at 9:23:41 AM Final Echo 06/2021: CONCLUSIONS: 1. The left ventricular systolic function is normal with a 60-65% estimated ejection fraction. 2. Spectral Doppler shows an abnormal pattern of left ventricular diastolic filling. 3. The left atrium is enlarged. 4. Aortic valve stenosis is not present. 5. Small patent foramen ovale. 04/08/24 Echo 1. Left ventricular ejection fraction is mildly decreased, calculated by Pleitez's biplane at 42%. 2. There is global hypokinesis of the left ventricle with minor regional variations. 3. Left ventricular diastolic filling was indeterminate. 4. Abnormal septal motion consistent with RV pacemaker. 5. There is normal right ventricular global systolic function. 6. Moderately enlarged right ventricle. 7. Compared to prior echocardiogram dated 06/02/2021: Ejection fraction has declined. 8. The patient is in atrial fibrillation which may influence the estimate of left ventricular function and transvalvular flows. Impression Rocio Sandoval is a 78 y.o. male with a medical history of diabetes, hypertension, hyperlipidemia, obstructive sleep apnea here to follow-up on new onset atrial fibrillation. Problem #1 atrial fibrillation; status post dual-chamber pacemaker -Underwent an ablation for atrial fibrillation November 2021; subsequently has been put on amiodarone -Has had some bradycardia following the procedure with some fatigue; since then underwent a dual-chamber pacemaker June 2022 with improvement in symptoms. Currently denies any significant dyspnea with exertion. Denies any orthopnea/PND. No lower extremity edema Problem #2 heart failure with preserved ejection fraction -Taking Lasix for 20 mg every other day. On Jardiance 25 mg daily -Notably his most recent echocardiogram 04/08/2024 notes a reduced ejection fraction at 40%. -Total pacing burden on device interrogation 03/18/2024 91% Plan: -Currently his ejection fraction has declined from 60 to 40% between 2020 and 2023. 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 I will hold off initiation of GDMT at this time till plan is in place. -RTC 3 months with Octavio Stroud MD Advanced Heart Failure/Transplant Cardiology Cardio-Oncology [facility] documented in this encounter [facility] Work Phone: 03-28-2024 Miscellaneous Notes Discharge instructions reviewed by Zuly Amado RN no questions and verbalized understanding. discharged amb to exit steady gait, to be driven home by family edin well documented in this encounter [facility] Work Phone: 03-28-2024 Nurse Surgical operation note Discharge instructions reviewed by Zuly Amado RN no questions and verbalized understanding. discharged amb to exit steady gait, to be driven home by family edin well [facility] 03-28-2024 Note Table formatting fro m the original result was not included. Procedure Epidural Steroid Injection Indication Lumbar radiculopathy Medications iohexol (OMNIPaque) 300 mg iodine/mL solution 3 mL 3 mL lidocaine PF (Xylocaine) 20 mg/mL (2 %) injection 120 mg 5 mL methylPREDNISolone acetate (DEPO-Medrol) injection 40 mg (Totals for administrations occurring from 1312 to 1329 on 03/28/24) Preprocedure A history and physical has been performed, and patient medication allergies have been reviewed. The patient's tolerance of previous anesthesia has been reviewed. The risks and benefits of the procedure and the sedation options and risks were discussed with the patient. All questions were answered and informed consent obtained. Details of the Procedure Diagnosis: m54.16 lumbar radiculopathy Procedure: L4/5 interlaminar epidural steroid injection under fluoroscopic guidance Anesthesia: Local Complications: None After informed consent was obtained, the patient was brought to the procedure suite and placed in the prone position. Pulse oximetry and blood pressure were monitored throughout. The low back area was prepped and draped in the usual sterile fashion. Using fluoroscopic guidance, the skin and subcutaneous tissue overlying the needle trajectory were anesthetized with 2.0% lidocaine. An 18-gauge Tuohy needle was inserted and directed by fluoroscopy. Entry into the epidural space was confirmed using the loss of resistance technique with a loss of resistance syringe and 2 cc of air. Injection of contrast revealed appropriate spread without vascular uptake. Needle tip position confirmed in at least two views. 4 mL of normal saline plus 40 mg of Methylprednisone was then injected. The needle was removed and the patient was then transferred to the recovery room in stable condition. The patient tolerated the procedure well. There were no apparent 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s. FOLLOW UP: The patient will update us on their response to this procedure, and agrees to continue currently prescribed/recommended therapies Procedure Provider James Alves DO Procedure Location [facility] [place] [address] [place] [id number] Referring Provider Reggie Aragon PA-C [address] [place] [address] Work Phone: 03-28-2024 Attending History and physical note H&P reviewed. The patient was examined and there are no changes to the H&P. Source Note - Reggie Aragon PA-C - 03/06/2024 8:15 AM EDT Subjective Patient ID: Rocio Sandoval is a 78 y.o. male who presents for Follow-up ([facility] Meds. Today reports he is having pain in Bilat lower back and hips R>L , lt knee area rates pain 5-6/10 now and 8/10 at worst, describes as sharp pain with standing or walking. He is taking Gabapentin, tylenol, and uses an inversion table to help his pain. ) RACHEL score 28%, SOAPP score 3. Ludivina Duff RN 03/06/24 8:24 AM Patient is an 78-year-old male. He presents today for a 2-month follow-up. Patient has noted increased lower back pain with bilateral buttock and leg pain. Worse with standing, walking, and being upright and active. Sitting does help. He rates it a 5-8/10 depending on his activities. He is his gabapentin 800 mg usually 3 times a day but he did share with me that he has taken it 4 times a day on occasion. I discussed with him that he should not be taking his medications more than prescribed. I discussed with him increasing the dose but at this time he does not feel that he needs to. Patient historically underwent previous bilateral L4-5 transforaminal epidural steroid injection. This was done on 12/07/2023 and gave him 80% relief. Patient recently saw his orthopedic surgeon for his left knee but he states that the surgeon told him that it was not his knee but rather coming from his back. He did not agree with this as it was very point specific to one area in the knee. He states that with using the inversion table it has gotten better. At this time, he wants to work on his lower back and leg pain as this has started to return. It should be noted that in the past, he has undergone all reasonable conservative treatments including physical therapy. This did not help. Tylenol has not helped. He is not able to use NSAIDs due to blood thinner use. Review of Systems Constitutional: Negative. HENT: Negative. Eyes: Negative. Respiratory: Negative. Cardiovascular: Negative. Gastrointestinal: Negative. Endocrine: Negative. Genitourinary: Negative. Musculoskeletal: Positive for arthralgias, back pain, gait problem and myalgias. Skin: Negative. Allergic/Immunologic: Negative. Neurological: Positive for weakness and numbness. Hematological: Negative. Psychiatric/Behavioral: Negative. Objective Physical Exam Vitals and nursing note reviewed. Constitutional: General: He is not in acute distress. Appearance: Normal appearance. He is not ill-appearing. HENT: Head: Normocephalic and atraumatic. Right Ear: External ear normal. Left Ear: External ear normal. Nose: Nose normal. Mouth/Throat: Pharynx: Oropharynx is clear. Eyes: Conjunctiva/sclera: Conjunctivae normal. Cardiovascular: Rate and Rhythm: Normal rate and regular rhythm. Pulses: Normal pulses. Pulmonary: Effort: Pulmonary effort is normal. Breath sounds: Normal breath sounds. Musculoskeletal: General: Normal range of motion. Cervical back: Normal range of motion. Comments: 5/5 lower extremity strength other than bilateral hip flexion 4+ to 5 -/5 Skin: General: Skin is warm and dry. Neurological: General: No focal deficit present. Mental Status: He is alert and oriented to person, place, and time. Mental status is at baseline. Psychiatric: Mood and Affect: Mood normal. Behavior: Behavior normal. Thought Content: Thought content normal. Judgment: Judgment normal. MR lumbar spine wo IV contrast Status: Final result PACS Images Show images for MR lumbar spine wo IV contrast Signed by Signed Time Phone Pager Rocio Go MD 09/24/2023 13:33 [id number] Exam Information Status Exam Begun Exam Ended Final 09/24/2023 11:33 09/24/2023 12:02 Study Result Narrative & Impression Interpreted By: Rocio Go, STUDY: MR LUMBAR SPINE WO IV CONTRAST performed 09/24/2023 12:02 pm INDICATION: Signs/Symptoms:lower back and leg pain. COMPARISON: Lumbar spine radiographs dated 08/07/2023. MRI lumbar spine performed 03/31/2021. ACCESSION NUMBER(S): [id number] ORDERING CLINICIAN: REGGIE ARAGON TECHNIQUE: Multiplanar multisequence MR imaging of the lumbar spine performed without intravenous contrast. Sagittal T1, T2, STIR, axial T1 and T2 weighted images of the lumbar spine were acquired. FINDINGS: Segmentation: Partially formed S1-S2 disc. 5 non rib-bearing lumbar vertebral bodies are designated on this examination. Conus: The lower thoracic cord appears unremarkable. The conus terminates at the L2 vertebral body level. Cauda equina are unremarkable. Epidural fluid: None. Alignment: Mild rotatory levo scoliosis as evident on localizer imaging with apex at L2-L3. Lumbar alignment is otherwise maintained. Vertebral bodies: Minimal chronic anterior wedging of T12 and L1. Lumbar vertebral body heights are otherwise maintained. Marrow signal: Type 2 Modic endplate signal change posteriorly at L2-L3. No focal STIR hyperintensity/marrow edema. Intervertebral discs: Tiny Schmorl's node components at T11-T12. Moderate multilevel degenerative disc height loss. Multilevel disc desiccation. Probable vacuum disc components at L3-L4 and L4-L5. Degenerative change: T12-L1: Mild bilateral facet arthropathy with ligamentum flavum hypertrophy. Minimal disc bulge with tiny left subarticular disc osteophyte protrusion component. Left lateral recess narrowing with no additional spinal canal stenosis. No neural foraminal narrowing. L1-2: Mild facet arthropathy with ligamentum flavum hypertrophy. No spinal canal stenosis or neural foraminal narrowing. L2-3: There is suggestion of previous right hemilaminectomy. Bilateral facet arthropathy. Mres-ob-rmrtqczv disc bulge with hypertrophic endplate spurring. Mild narrowing of the lateral recesses without spinal canal stenosis. Mild bilateral neural foraminal narrowing. L3-4: Possible remote right hemilaminectomy. Mild bilateral facet arthropathy. Mild disc bulge and endplate spurring. Narrowing of the lateral recesses without additional spinal canal stenosis. Mild bilateral neural foraminal narrowing. L4-5: Moderate facet arthropathy with ligamentum flavum hypertrophy. Previous right facet synovial cyst is no longer definitively visualized. Moderate disc bulge with hypertrophic endplate spurring. Moderate trefoil narrowing of the thecal sac and lateral recesses. Moderate iurv-bcnqssj-orie-right neural foraminal narrowing with facet arthropathy contacting the exiting left L4 nerve root. L5-S1: Mild facet arthropathy. Mild disc bulge with trace posterior fissuring. Similar left lateral recess narrowing. No additional spinal canal stenosis. No substantial neural foraminal narrowing. Soft tissues: Incomplete visualization of a large, exophytic, cystic appearing lesion arising from the left kidney. Fatty atrophy of the posterior paraspinal musculature. IMPRESSION: Similar to minimally worsened lumbar degenerative change. At L4-L5 the previously identified right facet synovial cyst is no longer clearly delineated. There is moderate spinal canal stenosis/lateral recess narrowing with moderate msjz-jhftxim-jgsq-right neural foraminal narrowing with facet osteophyte contacting/possibly impinging the exiting left L4 nerve root. MACRO: None Signed by: Rocio Go 09/24/2023 1:33 PM Dictation workstation: [id number] Assessment/Plan Diagnoses and all orders for this visit: Lumbar radiculopathy - Epidural Steroid Injection; Future - FL pain management; Future 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 stenosis 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 Chronic pain of left knee Other orders - NPO Diet Except: Sips with meds; Effective now; Standing - Height and weight; Standing - Insert and maintain peripheral IV; Standing - Saline lock IV; Standing - POCT Glucose; Standing - Type And Screen; Standing - Inpatient consult to Respiratory Care; Standing - lactated Ringer's infusion - Adult diet Regular; Standing - Vital Signs; Standing - Notify physician - Standard Parameters; Standing - Continue IV fluids ordered pre-procedure; Standing - Prior to Discharge O2 Weaning; Standing - Pulse oximetry, continuous; Standing - Discharge patient; Standing - iohexol (OMNIPaque) 300 mg iodine/mL solution 3 mL - lidocaine PF (Xylocaine) 20 mg/mL (2 %) injection 120 mg - sodium chloride (PF) 0.9% solution 4 mL - methylPREDNISolone acetate (DEPO-Medrol) injection 40 mg Patient is an 78-year-old male with the above-mentioned medical diagnoses following up today. He underwent previous transforaminal epidural steroid injection with improvement. He had 3 months of significant relief with this injection. His pain has started to return. Lower back and right greater than left leg. He rates it a 5-8/10. Based on his MRI findings, his pain pattern, and the significant response he got from the recent injection we discussed pursuing a repeat injection but we discussed pursuing an L4-5 interlaminar lumbar epidural steroid injection under fluoroscopy for both agnostic and therapeutic purposes. Procedure was discussed. Risk and benefits were discussed. Medication hold clinic vitamins for 1 week and Xarelto for 3 days was discussed. Patient will follow-up 2 weeks after the injection for reevaluation. Call clinic in the interim should he require anything from our services. The meantime we will continue on gabapentin. We did discuss that he should not be increasing the dose on his own. Patient voiced understanding. OARRS reviewed. Does not require refill. He will call when he does. Follow-up as above mention. [facility] Work Phone: 03-28-2024 History and physical note H&P reviewed. The patient was examined and there are no changes to the H&P. Source Note - Reggie Aragon PA-C - 03/06/2024 8:15 AM EDT Subjective Patient ID: Rocio Sandoval is a 78 y.o. male who presents for Follow-up (FUV Meds. Today reports he is having pain in Bilat lower back and hips R>L , lt knee area rates pain 5-6/10 now and 8/10 at worst, describes as sharp pain with standing or walking. He is taking Gabapentin, tylenol, and uses an inversion table to help his pain. ) RACHEL score 28%, SOAPP score 3. Ludivina Duff RN 03/06/24 8:24 AM Patient is an 78-year-old male. He presents today for a 2-month follow-up. Patient has noted increased lower back pain with bilateral buttock and leg pain. Worse with standing, walking, and being upright and active. Sitting does help. He rates it a 5-8/10 depending on his activities. He is his gabapentin 800 mg usually 3 times a day but he did share with me that he has taken it 4 times a day on occasion. I discussed with him that he should not be taking his medications more than prescribed. I discussed with him increasing the dose but at this time he does not feel that he needs to. Patient historically underwent previous bilateral L4-5 transforaminal epidural steroid injection. This was done on 12/07/2023 and gave him 80% relief. Patient recently saw his orthopedic surgeon for his left knee but he states that the surgeon told him that it was not his knee but rather coming from his back. He did not agree with this as it was very point specific to one area in the knee. He states that with using the inversion table it has gotten better. At this time, he wants to work on his lower back and leg pain as this has started to return. It should be noted that in the past, he has undergone all reasonable conservative treatments including physical therapy. This did not help. Tylenol has not helped. He is not able to use NSAIDs due to blood thinner use. Review of Systems Constitutional: Negative. HENT: Negative. Eyes: Negative. Respiratory: Negative. Cardiovascular: Negative. Gastrointestinal: Negative. Endocrine: Negative. Genitourinary: Negative. Musculoskeletal: Positive for arthralgias, back pain, gait problem and myalgias. Skin: Negative. Allergic/Immunologic: Negative. Neurological: Positive for weakness and numbness. Hematological: Negative. Psychiatric/Behavioral: Negative. Objective Physical Exam Vitals and nursing note reviewed. Constitutional: General: He is not in acute distress. Appearance: Normal appearance. He is not ill-appearing. HENT: Head: Normocephalic and atraumatic. Right Ear: External ear normal. Left Ear: External ear normal. Nose: Nose normal. Mouth/Throat: Pharynx: Oropharynx is clear. Eyes: Conjunctiva/sclera: Conjunctivae normal. Cardiovascular: Rate and Rhythm: Normal rate and regular rhythm. Pulses: Normal pulses. Pulmonary: Effort: Pulmonary effort is normal. Breath sounds: Normal breath sounds. Musculoskeletal: General: Normal range of motion. Cervical back: Normal range of motion. Comments: 5/5 lower extremity strength other than bilateral hip flexion 4+ to 5 -/5 Skin: General: Skin is warm and dry. Neurological: General: No focal deficit present. Mental Status: He is alert and oriented to person, place, and time. Mental status is at baseline. Psychiatric: Mood and Affect: Mood normal. Behavior: Behavior normal. Thought Content: Thought content normal. Judgment: Judgment normal. MR lumbar spine wo IV contrast Status: Final result PACS Images Show images for MR lumbar spine wo IV contrast Signed by Signed Time Phone Pager Rocio Go MD 09/24/2023 13:33 [id number] Exam Information Status Exam Begun Exam Ended Final 09/24/2023 11:33 09/24/2023 12:02 Study Result Narrative & Impression Interpreted By: Rocio Go, STUDY: MR LUMBAR SPINE WO IV CONTRAST performed 09/24/2023 12:02 pm INDICATION: Signs/Symptoms:lower back and leg pain. COMPARISON: Lumbar spine radiographs dated 08/07/2023. MRI lumbar spine performed 03/31/2021. ACCESSION NUMBER(S): [id number] ORDERING CLINICIAN: REGGIE ARAGON TECHNIQUE: Multiplanar multisequence MR imaging of the lumbar spine performed without intravenous contrast. Sagittal T1, T2, STIR, axial T1 and T2 weighted images of the lumbar spine were acquired. FINDINGS: Segmentation: Partially formed S1-S2 disc. 5 non rib-bearing lumbar vertebral bodies are designated on this examination. Conus: The lower thoracic cord appears unremarkable. The conus terminates at the L2 vertebral body level. Cauda equina are unremarkable. Epidural fluid: None. Alignment: Mild rotatory levo scoliosis as evident on localizer imaging with apex at L2-L3. Lumbar alignment is otherwise maintained. Vertebral bodies: Minimal chronic anterior wedging of T12 and L1. Lumbar vertebral body heights are otherwise maintained. Marrow signal: Type 2 Modic endplate signal change posteriorly at L2-L3. No focal STIR hyperintensity/marrow edema. Intervertebral discs: Tiny Schmorl's node components at T11-T12. Moderate multilevel degenerative disc height loss. Multilevel disc desiccation. Probable vacuum disc components at L3-L4 and L4-L5. Degenerative change: T12-L1: Mild bilateral facet arthropathy with ligamentum flavum hypertrophy. Minimal disc bulge with tiny left subarticular disc osteophyte protrusion component. Left lateral recess narrowing with no additional spinal canal stenosis. No neural foraminal narrowing. L1-2: Mild facet arthropathy with ligamentum flavum hypertrophy. No spinal canal stenosis or neural foraminal narrowing. L2-3: There is suggestion of previous right hemilaminectomy. Bilateral facet arthropathy. Miji-mo-ufilkhek disc bulge with hypertrophic endplate spurring. Mild narrowing of the lateral recesses without spinal canal stenosis. Mild bilateral neural foraminal narrowing. L3-4: Possible remote right hemilaminectomy. Mild bilateral facet arthropathy. Mild disc bulge and endplate spurring. Narrowing of the lateral recesses without additional spinal canal stenosis. Mild bilateral neural foraminal narrowing. L4-5: Moderate facet arthropathy with ligamentum flavum hypertrophy. Previous right facet synovial cyst is no longer definitively visualized. Moderate disc bulge with hypertrophic endplate spurring. Moderate trefoil narrowing of the thecal sac and lateral recesses. Moderate zheh-uzavilj-dckz-right neural foraminal narrowing with facet arthropathy contacting the exiting left L4 nerve root. L5-S1: Mild facet arthropathy. Mild disc bulge with trace posterior fissuring. Similar left lateral recess narrowing. No additional spinal canal stenosis. No substantial neural foraminal narrowing. Soft tissues: Incomplete visualization of a large, exophytic, cystic appearing lesion arising from the left kidney. Fatty atrophy of the posterior paraspinal musculature. IMPRESSION: Similar to minimally worsened lumbar degenerative change. At L4-L5 the previously identified right facet synovial cyst is no longer clearly delineated. There is moderate spinal canal stenosis/lateral recess narrowing with moderate qmmy-cihjifi-nicr-right neural foraminal narrowing with facet osteophyte contacting/possibly impinging the exiting left L4 nerve root. MACRO: None Signed by: Rocio Go 09/24/2023 1:33 PM Dictation workstation: [id number] Assessment/Plan Diagnoses and all orders for this visit: Lumbar radiculopathy - Epidural Steroid Injection; Future - FL pain management; Future 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 stenosis 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 Chronic pain of left knee Other orders - NPO Diet Except: Sips with meds; Effective now; Standing - Height and weight; Standing - Insert and maintain peripheral IV; Standing - Saline lock IV; Standing - POCT Glucose; Standing - Type And Screen; Standing - Inpatient consult to Respiratory Care; Standing - lactated Ringer's infusion - Adult diet Regular; Standing - Vital Signs; Standing - Notify physician - Standard Parameters; Standing - Continue IV fluids ordered pre-procedure; Standing - Prior to Discharge O2 Weaning; Standing - Pulse oximetry, continuous; Standing - Discharge patient; Standing - iohexol (OMNIPaque) 300 mg iodine/mL solution 3 mL - lidocaine PF (Xylocaine) 20 mg/mL (2 %) injection 120 mg - sodium chloride (PF) 0.9% solution 4 mL - methylPREDNISolone acetate (DEPO-Medrol) injection 40 mg Patient is an 78-year-old male with the above-mentioned medical diagnoses following up today. He underwent previous transforaminal epidural steroid injection with improvement. He had 3 months of significant relief with this injection. His pain has started to return. Lower back and right greater than left leg. He rates it a 5-8/10. Based on his MRI findings, his pain pattern, and the significant response he got from the recent injection we discussed pursuing a repeat injection but we discussed pursuing an L4-5 interlaminar lumbar epidural steroid injection under fluoroscopy for both agnostic and therapeutic purposes. Procedure was discussed. Risk and benefits were discussed. Medication hold clinic vitamins for 1 week and Xarelto for 3 days was discussed. Patient will follow-up 2 weeks after the injection for reevaluation. Call clinic in the interim should he require anything from our services. The meantime we will continue on gabapentin. We did discuss that he should not be increasing the dose on his own. Patient voiced understanding. OARRS reviewed. Does not require refill. He will call when he does. Follow-up as above mention. documented in this encounter [facility] Work Phone: 03-13-2024 History of Present illness Narrative Cardiology Subsequent Encounter Clinic Note Name: Rocio Sandoval : 1945 CC: Afib Active Issues: Rocio Sandoval is a 78 y.o. male with a medical history of diabetes, hypertension, hyperlipidemia, obstructive sleep apnea here to follow-up on new onset atrial fibrillation. Problem #1 atrial fibrillation; status post dual-chamber pacemaker -Underwent an ablation for atrial fibrillation November 2021; subsequently has been put on amiodarone -Has had some bradycardia following the procedure with some fatigue; since then underwent a dual-chamber pacemaker June 2022 with improvement in symptoms. Currently denies any significant dyspnea with exertion. Denies any orthopnea/PND. No lower extremity edema Problem #2 heart failure with preserved ejection fraction -Taking Lasix for 20 mg every other day. On Jardiance 25 mg daily -Appears warm and dry Past Medical History Past Medical History: Diagnosis Date Benign prostatic hyperplasia without lower urinary tract symptoms 07/08/2021 BPH (benign prostatic hyperplasia) Calculus of kidney 12/30/2019 Bilateral renal stones Carpal tunnel syndrome, right upper limb 12/31/2019 Carpal tunnel syndrome of right wrist Cough 10/06/2022 Depression, unspecified 01/05/2022 Depression Disorder of arteries and arterioles, unspecified ([facility]) 01/05/2022 Peripheral arterial occlusive disease Dizziness 10/06/2022 Essential (primary) hypertension 06/29/2022 Hypertension, essential, benign Gastro-esophageal reflux disease without esophagitis 01/05/2022 GERD (gastroesophageal reflux disease) Hyperlipidemia, unspecified 01/05/2022 Hyperlipemia Influenza A 10/06/2022 Male erectile dysfunction, unspecified 09/03/2019 Erectile dysfunction Obesity, unspecified 08/16/2020 Obesity (BMI 30-39.9) Obstructive sleep apnea (adult) (pediatric) 01/05/2022 ALISHA on CPAP Personal history of diseases of the skin and subcutaneous tissue History of actinic keratosis Personal history of other infectious and parasitic diseases History of onychomycosis Personal history of other infectious and parasitic diseases History of tinea pedis Plantar fascial fibromatosis Plantar fasciitis Polyosteoarthritis, unspecified 09/23/2019 Generalized osteoarthritis of multiple sites Rash of genitalia 10/06/2022 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s (Multi) 01/05/2022 Type II 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 Venous insufficiency (chronic) (peripheral) Venous insufficiency of leg Past Surgical History Past Surgical History: Procedure Laterality Date CARDIAC PACEMAKER PLACEMENT 06/2022 LUMBAR EPIDURAL INJECTION Bilateral 12/07/2023 Bilat L4/5 TFESI OTHER SURGICAL HISTORY 06/18/2019 Lumbar vertebral fusion OTHER SURGICAL HISTORY 06/18/2019 Retinal detachment repair OTHER SURGICAL HISTORY 06/18/2019 Phacoemulsification of cataract and insertion of intraocular lens OTHER SURGICAL HISTORY 06/18/2019 Circumcision OTHER SURGICAL HISTORY 06/18/2019 Knee replacement OTHER SURGICAL HISTORY 06/18/2019 Sigmoidoscopy flexible OTHER SURGICAL HISTORY 06/18/2019 Dermatological cryotherapy OTHER SURGICAL HISTORY 06/18/2019 Esophagogastroduodenoscopy OTHER SURGICAL HISTORY 06/18/2019 Nail debridement OTHER SURGICAL HISTORY 06/18/2019 Epidural space injection OTHER SURGICAL HISTORY 07/07/2020 Colonoscopy OTHER SURGICAL HISTORY 01/05/2022 Catheter ablation OTHER SURGICAL HISTORY 08/16/2020 Cardiac catheterization OTHER SURGICAL HISTORY 05/11/2020 Inguinal hernia repair PACEMAKER PLACEMENT Medications Current Outpatient Medications on File Prior to Visit Medication Sig Dispense Refill amiodarone (Pacerone) 200 mg tablet TAKE 1/2 TABLET BY MOUTH EVERY DAY 45 tablet 3 atorvastatin (Lipitor) 40 mg tablet Take 1 tablet (40 mg) by mouth once daily at bedtime. 90 tablet 3 B6/folic/B12/coffee/phosphatid (NEURIVA PLUS BRAIN PERFORMANCE ORAL) Take 1 tablet by mouth once daily. empagliflozin (Jardiance) 25 mg Take 1 tablet (25 mg) by mouth once daily. 90 tablet 3 fexofenadine (Sulaiman) 180 mg tablet Take 1 tablet (180 mg) by mouth once daily. 90 tablet 3 FreeStyle Vince 14 Day [place] misc Use as instructed 1 each 0 FreeStyle Vince 14 Day Sensor kit Use as instructed 2 each 11 furosemide (Lasix) 20 mg tablet Take 1 tablet (20 mg) by mouth once daily. gabapentin (Neurontin) 800 mg tablet Take 1 tablet (800 mg) by mouth 3 times a day. Takes 3 time a day 270 tablet 3 melatonin 5 mg capsule Take by mouth. metFORMIN XR (Glucophage-XR) 750 mg 24 hr tablet Take 1 tablet (750 mg) by mouth 2 times a day. 180 tablet 3 multivitamin (MULTIPLE VITAMINS ORAL) Take 1 tablet by mouth once daily. rivaroxaban (Xarelto) 20 mg tablet Take 1 tablet (20 mg) by mouth once daily. 90 tablet 3 tamsulosin (Flomax) 0.4 mg 24 hr capsule Take 1 capsule (0.4 mg) by mouth once daily. 90 capsule 3 testosterone cypionate (Depo-Testosterone) 200 mg/mL injection Inject 0.5 mL (100 mg) into the muscle every 14 (fourteen) days. 1 mL 5 vitamins A,C,K-yngc-tahkel (Eye Multivitamin) 2,148 mcg-113 mg-45 mg-17.4mg tablet Take 1 tablet by mouth once daily. colchicine 0.6 mg tablet Take 1 tablet (0.6 mg) by mouth once daily as needed for muscle/joint pain. (Patient not taking: Reported on 03/13/2024) 90 tablet 1 omeprazole (PriLOSEC) [address] capsule Take 1 capsule (40 mg) by mouth once daily. (Patient not taking: Reported on 03/13/2024) 90 capsule 3 No current facility-administered medications on file prior to visit. Allergies No Known Allergies Social History Social History Tobacco Use Smoking status: Never Passive exposure: Never Smokeless tobacco: Never Vaping Use Vaping status: Never Used Substance Use Topics Alcohol use: Never Drug use: Never Family History Family History Problem Relation Name Age of Onset Other (CVA) Mother Diabetes type II Father Diabetes type II Sister Heart attack Brother Coronary artery disease Brother Kidney failure Brother Diabetes type II Brother Physical Examination Vitals: BP 140/70 (BP Location: Right arm, Patient Position: Sitting) Pulse 68 Ht 1.88 m (6' 2) Wt 107 kg (236 lb) SpO2 97% BMI 30.30 kg/m General: awake, alert and oriented. No acute distress. Skin: Skin is warm, dry and intact without rashes or lesions. Appropriate color for ethnicity. Nail beds pink with no cyanosis or clubbing HEENT: normocephalic, atraumatic; conjunctivae are clear without exudates or hemorrhage. Sclera is non-icteric. Eyelids are normal in appearance without swelling or lesions. Hearing intact. Nares are patent bilaterally. Moist mucous membranes. Cardiovascular: Regular. No murmurs, gallops, or rubs are auscultated. S1 and S2 are heard and are of normal intensity. No JVD, no carotid bruits Respiratory: Thorax symmetric. CTAB, breath sounds vesicular. No crackles, wheezes or ronchi. Gastrointestinal: soft, non-distended, BS + x 4 Genitourinary: exam deferred Musculoskeletal: moves all extremities Extremities: pulses palpable bilaterally; no swelling or erythema; no edema Neurological: alert & oriented x 3; no focal deficits Psychiatric: appropriate mood and affect Labs/Imaging/Procedures Lab Results Component Value Date HGB 12.7 (L) 01/25/2024 HGB 12.7 (L) 11/16/2023 HGB 13.6 10/23/2023 PLT 278 01/25/2024 WBC 7.4 01/25/2024 NA 141 01/25/2024 K 4.2 01/25/2024 CREATININE 0.97 01/25/2024 CREATININE 0.96 11/16/2023 CREATININE 0.88 10/23/2023 BUN 17 01/25/2024 CALCIUM 8.7 01/25/2024 INR 1.4 (H) 03/16/2023 BNP 48 08/25/2022 TROPHS <3 08/25/2022 TROPHS <3 08/25/2022 LDLF 55 10/03/2022 No echocardiogram results found for the past 12 months FL fluoro images no charge These images are not reportable by radiology and will not be interpreted by Radiologists. Echo 06/2021: CONCLUSIONS: 1. The left ventricular systolic function is normal with a 60-65% estimated ejection fraction. 2. Spectral Doppler shows an abnormal pattern of left ventricular diastolic filling. 3. The left atrium is enlarged. 4. Aortic valve stenosis is not present. 5. Small patent foramen ovale. Impression Rocio Sandoval is a 78 y.o. male with a medical history of diabetes, hypertension, hyperlipidemia, obstructive sleep apnea here to follow-up on new onset atrial fibrillation. Problem #1 atrial fibrillation; status post dual-chamber pacemaker -Underwent an ablation for atrial fibrillation November 2021; subsequently has been put on amiodarone -Has had some bradycardia following the procedure with some fatigue; since then underwent a dual-chamber pacemaker June 2022 with improvement in symptoms. Currently denies any significant dyspnea with exertion. Denies any orthopnea/PND. Problem #2 heart failure with preserved ejection fraction -Taking Lasix for 20 mg every other day. On Jardiance 25 mg daily -Appears warm and dry Plan: -Continue Xarelto for atrial fibrillation. Also on amiodarone 100 mg daily -Dual-chamber pacemaker appears to be normally functioning per EKG -Warm and dry from the standpoint of heart failure -RTC 1 year Joel Stroud MD Advanced Heart Failure/Transplant Cardiology Cardio-Oncology [facility] documented in this encounter [facility] Work Phone: 03-06-2024 History of Present illness Narrative Subjective Patient ID: Rocio Sandoval is a 78 y.o. male who presents for Follow-up (FUV Meds. Today reports he is having pain in Bilat lower back and hips R>L , lt knee area rates pain 5-6/10 now and 8/10 at worst, describes as sharp pain with standing or walking. He is taking Gabapentin, tylenol, and uses an inversion table to help his pain. ) RACHEL score , SOAPP score . Ludivina Duff RN 03/06/24 8:24 AM Patient is an 78-year-old male. He presents today for a 2-month follow-up. Patient has noted increased lower back pain with bilateral buttock and leg pain. Worse with standing, walking, and being upright and active. Sitting does help. He rates it a 5-8/10 depending on his activities. He is his gabapentin 800 mg usually 3 times a day but he did share with me that he has taken it 4 times a day on occasion. I discussed with him that he should not be taking his medications more than prescribed. I discussed with him increasing the dose but at this time he does not feel that he needs to. Patient historically underwent previous bilateral L4-5 transforaminal epidural steroid injection. This was done on 12/07/2023 and gave him 80% relief. Patient recently saw his orthopedic surgeon for his left knee but he states that the surgeon told him that it was not his knee but rather coming from his back. He did not agree with this as it was very point specific to one area in the knee. He states that with using the inversion table it has gotten better. At this time, he wants to work on his lower back and leg pain as this has started to return. It should be noted that in the past, he has undergone all reasonable conservative treatments including physical therapy. This did not help. Tylenol has not helped. He is not able to use NSAIDs due to blood thinner use. Review of Systems Constitutional: Negative. HENT: Negative. Eyes: Negative. Respiratory: Negative. Cardiovascular: Negative. Gastrointestinal: Negative. Endocrine: Negative. Genitourinary: Negative. Musculoskeletal: Positive for arthralgias, back pain, gait problem and myalgias. Skin: Negative. Allergic/Immunologic: Negative. Neurological: Positive for weakness and numbness. Hematological: Negative. Psychiatric/Behavioral: Negative. Objective Physical Exam Vitals and nursing note reviewed. Constitutional: General: He is not in acute distress. Appearance: Normal appearance. He is not ill-appearing. HENT: Head: Normocephalic and atraumatic. Right Ear: External ear normal. Left Ear: External ear normal. Nose: Nose normal. Mouth/Throat: Pharynx: Oropharynx is clear. Eyes: Conjunctiva/sclera: Conjunctivae normal. Cardiovascular: Rate and Rhythm: Normal rate and regular rhythm. Pulses: Normal pulses. Pulmonary: Effort: Pulmonary effort is normal. Breath sounds: Normal breath sounds. Musculoskeletal: General: Normal range of motion. Cervical back: Normal range of motion. Comments: 5/5 lower extremity strength other than bilateral hip flexion 4+ to 5 -/5 Skin: General: Skin is warm and dry. Neurological: General: No focal deficit present. Mental Status: He is alert and oriented to person, place, and time. Mental status is at baseline. Psychiatric: Mood and Affect: Mood normal. Behavior: Behavior normal. Thought Content: Thought content normal. Judgment: Judgment normal. MR lumbar spine wo IV contrast Status: Final result PACS Images Show images for MR lumbar spine wo IV contrast Signed by Signed Time Phone Pager Rocio Go MD 09/24/2023 13:33 [id number] Exam Information Status Exam Begun Exam Ended Final 09/24/2023 11:33 09/24/2023 12:02 Study Result Narrative & Impression Interpreted By: Rocio Go, STUDY: MR LUMBAR SPINE WO IV CONTRAST performed 09/24/2023 12:02 pm INDICATION: Signs/Symptoms:lower back and leg pain. COMPARISON: Lumbar spine radiographs dated 08/07/2023. MRI lumbar spine performed 03/31/2021. ACCESSION NUMBER(S): [id number] ORDERING CLINICIAN: REGGIE ARAGON TECHNIQUE: Multiplanar multisequence MR imaging of the lumbar spine performed without intravenous contrast. Sagittal T1, T2, STIR, axial T1 and T2 weighted images of the lumbar spine were acquired. FINDINGS: Segmentation: Partially formed S1-S2 disc. 5 non rib-bearing lumbar vertebral bodies are designated on this examination. Conus: The lower thoracic cord appears unremarkable. The conus terminates at the L2 vertebral body level. Cauda equina are unremarkable. Epidural fluid: None. Alignment: Mild rotatory levo scoliosis as evident on localizer imaging with apex at L2-L3. Lumbar alignment is otherwise maintained. Vertebral bodies: Minimal chronic anterior wedging of T12 and L1. Lumbar vertebral body heights are otherwise maintained. Marrow signal: Type 2 Modic endplate signal change posteriorly at L2-L3. No focal STIR hyperintensity/marrow edema. Intervertebral discs: Tiny Schmorl's node components at T11-T12. Moderate multilevel degenerative disc height loss. Multilevel disc desiccation. Probable vacuum disc components at L3-L4 and L4-L5. Degenerative change: T12-L1: Mild bilateral facet arthropathy with ligamentum flavum hypertrophy. Minimal disc bulge with tiny left subarticular disc osteophyte protrusion component. Left lateral recess narrowing with no additional spinal canal stenosis. No neural foraminal narrowing. L1-2: Mild facet arthropathy with ligamentum flavum hypertrophy. No spinal canal stenosis or neural foraminal narrowing. L2-3: There is suggestion of previous right hemilaminectomy. Bilateral facet arthropathy. Mtvf-aj-ptubhfdq disc bulge with hypertrophic endplate spurring. Mild narrowing of the lateral recesses without spinal canal stenosis. Mild bilateral neural foraminal narrowing. L3-4: Possible remote right hemilaminectomy. Mild bilateral facet arthropathy. Mild disc bulge and endplate spurring. Narrowing of the lateral recesses without additional spinal canal stenosis. Mild bilateral neural foraminal narrowing. L4-5: Moderate facet arthropathy with ligamentum flavum hypertrophy. Previous right facet synovial cyst is no longer definitively visualized. Moderate disc bulge with hypertrophic endplate spurring. Moderate trefoil narrowing of the thecal sac and lateral recesses. Moderate wgqb-lizzdao-igqz-right neural foraminal narrowing with facet arthropathy contacting the exiting left L4 nerve root. L5-S1: Mild facet arthropathy. Mild disc bulge with trace posterior fissuring. Similar left lateral recess narrowing. No additional spinal canal stenosis. No substantial neural foraminal narrowing. Soft tissues: Incomplete visualization of a large, exophytic, cystic appearing lesion arising from the left kidney. Fatty atrophy of the posterior paraspinal musculature. IMPRESSION: Similar to minimally worsened lumbar degenerative change. At L4-L5 the previously identified right facet synovial cyst is no longer clearly delineated. There is moderate spinal canal stenosis/lateral recess narrowing with moderate ieln-amzctjm-jygi-right neural foraminal narrowing with facet osteophyte contacting/possibly impinging the exiting left L4 nerve root. MACRO: None Signed by: Rocio Go 09/24/2023 1:33 PM Dictation workstation: [id number] Assessment/Plan Diagnoses and all orders for this visit: Lumbar radiculopathy - Epidural Steroid Injection; Future - FL pain management; Future 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 stenosis 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 Chronic pain of left knee Other orders - NPO Diet Except: Sips with meds; Effective now; Standing - Height and weight; Standing - Insert and maintain peripheral IV; Standing - Saline lock IV; Standing - POCT Glucose; Standing - Type And Screen; Standing - Inpatient consult to Respiratory Care; Standing - lactated Ringer's infusion - Adult diet Regular; Standing - Vital Signs; Standing - Notify physician - Standard Parameters; Standing - Continue IV fluids ordered pre-procedure; Standing - Prior to Discharge O2 Weaning; Standing - Pulse oximetry, continuous; Standing - Discharge patient; Standing - iohexol (OMNIPaque) 300 mg iodine/mL solution 3 mL - lidocaine PF (Xylocaine) 20 mg/mL (2 %) injection 120 mg - sodium chloride (PF) 0.9% solution 4 mL - methylPREDNISolone acetate (DEPO-Medrol) injection 40 mg Patient is an 78-year-old male with the above-mentioned medical diagnoses following up today. He underwent previous transforaminal epidural steroid injection with improvement. He had 3 months of significant relief with this injection. His pain has started to return. Lower back and right greater than left leg. He rates it a 5-8/10. Based on his MRI findings, his pain pattern, and the significant response he got from the recent injection we discussed pursuing a repeat injection but we discussed pursuing an L4-5 interlaminar lumbar epidural steroid injection under fluoroscopy for both agnostic and therapeutic purposes. Procedure was discussed. Risk and benefits were discussed. Medication hold clinic vitamins for 1 week and Xarelto for 3 days was discussed. Patient will follow-up 2 weeks after the injection for reevaluation. Call clinic in the interim should he require anything from our services. The meantime we will continue on gabapentin. We did discuss that he should not be increasing the dose on his own. Patient voiced understanding. OARRS reviewed. Does not require refill. He will call when he does. Follow-up as above mention. documented in this encounter [facility] Work Phone: 03-06-2024 Instructions Ida Rhoades RN - 03/06/2024 8:15 AM EDT Injection education completed written and verbally. documented in this encounter [facility] Work Phone: 03-05-2024 History of Present illness Narrative Nail care, left great toe pain Patient is a pleasant 78 year-old male who comes in today for diabetic nail care. His diabetes is managed by primary care including Dr. Kin Anne. Hemoglobin A1c is 7.5% with some tingling burning and loss of sensation. Physical Vascular: DP pulses are palpable 2 out of 4. PT pulses are nonpalpable bilaterally. CFT is fair with mild edema. Compression socks are helping. Feet are warm to cool proximal to distal. Hair growth absent to the lower extremity and skin is shiny atrophic dysvascular. Nails one left and one right are elongated thickened mycotic crumbling and dystrophic. Nails left foot 2345 and right foot 2345 are elongated and thickened and mycotic. Neuro: Sharp dull is blunted Babinski's is fair. Musculoskeletal: Muscle strength is 5/5 with fair tone, can easily wiggle toes without any clicking or catching. Left great toe is painful with compression of the first MPJ though the IPJ is full and pain-free. Otherwise can easily wiggle toes without any clicking or catching Assessment and plan: Patient is a pleasant 78-year-old male, diabetes with peripheral arterial disease, onychomycosis to two nails and onychodystrophy to eight nails. -He does qualify for nail care given his peripheral arterial disease and risk. Procedure: Nails left foot one 2345 bilaterally were sharply debrided and debulk in height and length with a sharp pair of nail nippers consistent with a q8 modifier. Start topical ammonium lactate daily, called in to [facility]. Follow-up in 3 months for foot nail care. documented in this encounter [facility] 01-10-2024 History of Present illness Narrative Subjective Patient ID: Rocio Sandoval is a 78 y.o. male who presents for Back Pain (Patient is following up from a Bilat L4-5 TFESI that he had on 12/07/23. Patient reports 80% relief. Patient states he still has lower back pain but it is not as excruciating as it was. Patient today complains that a week ago he had severe left knee pain. He states he made an appointment with orthopedics. He states he knee isn't bothering him now. Patient also complains of rib pain when he wakes up in the morning.). RACHEL score... ORT score... Zuly Blevins RN 01/10/24 8:43 AM Patient is an 78-year-old male. He presents today for follow-up after undergoing bilateral L4-5 transforaminal epidural steroid injection. This was done on 12/07/2023 and at this time has given him 80% relief. He states that last week he had some left knee pain but this is better. He had an x-ray and he is seeing Ortho. He also has some lower back pain but he states that right now, it is not bothersome enough to do anything about it. He just wants to write it out. He states that also intermittently he will have some rib pain it is only for a fleeting second when he first gets up in the morning and then it goes away but he wanted to mention it. He also has neuropathy. More on the left foot than the right foot. He uses gabapentin. He usually takes half a pill in the morning, a whole pill in the afternoon and a whole pill in the evening. They are 800 mg pills. Review of Systems Constitutional: Negative. HENT: Negative. Eyes: Negative. Respiratory: Negative. Cardiovascular: Negative. Gastrointestinal: Negative. Endocrine: Negative. Genitourinary: Negative. Musculoskeletal: Positive for arthralgias, back pain and myalgias. Skin: Negative. Allergic/Immunologic: Negative. Neurological: Positive for weakness and numbness. Hematological: Negative. Psychiatric/Behavioral: Negative. Objective Physical Exam Vitals and nursing note reviewed. Constitutional: Appearance: Normal appearance. HENT: Head: Normocephalic and atraumatic. Right Ear: External ear normal. Left Ear: External ear normal. Nose: Nose normal. Mouth/Throat: Pharynx: Oropharynx is clear. Eyes: Conjunctiva/sclera: Conjunctivae normal. Cardiovascular: Rate and Rhythm: Normal rate and regular rhythm. Pulses: Normal pulses. Pulmonary: Effort: Pulmonary effort is normal. Musculoskeletal: General: Normal range of motion. Cervical back: Normal range of motion. Comments: 5/5 strength Skin: General: Skin is warm and dry. Neurological: General: No focal deficit present. Mental Status: He is alert and oriented to person, place, and time. Mental status is at baseline. Psychiatric: Mood and Affect: Mood normal. Behavior: Behavior normal. Thought Content: Thought content normal. Judgment: Judgment normal. XR knee left 4+ views Order: [id number] Impression Postsurgical findings of left total knee arthroplasty without acute abnormality. [employer] Workstation ID: [id number] Narrative EXAMINATION: XR KNEE LEFT 4+ VIEWS (SPECIFY VIEWS IN COMMENTS) 11/20/2023 7:56 am HISTORY: ORDERING SYSTEM PROVIDED HISTORY: Pain, TECHNOLOGIST PROVIDED HISTORY: Illness/Other Reason for exam: chronic left knee pain off and on, no injury, was hurting so bad had to use a cane per patient Cancer History: no Surgery, RadiationHistory: no Encounter Type: Subsequent/Follow-up Additional signs and symptoms: none ORDERING SYSTEM PROVIDED DIAGNOSIS CODES: R52 Pain COMPARISON: 04/30/2023. FINDINGS: Four views of the left knee were obtained including standing view of both knees. There are postsurgical findings of total knee arthroplasty. Joint space is symmetric. No acute fracture or dislocation. The patella is appropriately positioned. Heterotopic ossification noted in the suprapatellar region which appears similar to prior. There is also a rounded density inferior to the patella, likely representing intraarticular body, similar to prior. No significant joint effusion. Mild degenerative changes noted in the right knee primarily involving the medial compartment. Assessment/Plan Diagnoses and all orders for this visit: 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 stenosis Sacroiliitis (CMS-HCC) Chronic bilateral low back pain with bilateral sciatica Lumbar radiculopathy Spondylosis of lumbosacral region without myelopathy or radiculopathy Chronic pain of left knee History of left knee replacement Patient is an 78-year-old male with the above-mentioned medical diagnoses following up today after undergoing a bilateral L4-5 transforaminal epidural steroid injection at this time has given him 80% relief. At this time, he states that things are better. He has some intermittent aches and pains other places including his left knee. We discussed left genicular nerve block but at this time, he is going to see Ortho and he wants to await having anything done. We discussed his gabapentin. He is using 400 to 800 mg 3 times a day maximum dose of the medication was discussed. OARRS was reviewed. Does not require refill. He will call when he does. At this time, he is going to continue on the medications that he is going to follow-up in 2 months. We discussed repeating the injection if and when it should be necessary. He will follow up as above mention or call us in the interim should he require anything from our services. documented in this encounter [facility] Work Phone: 12-07-2023 Miscellaneous Notes Discharge instructions reviewed by Ida Ruelas RN no questions and verbalized understanding. pt discharged amb to exit steady gait, to be driven home by family edin well * No procedures listed * Operative Note Date: 12/07/2023 OR Location: [place] [id number] OR Name: Rocio Chalino Sandoval, : 1945, Age: 78 y.o., , Sex: male Diagnosis * No Diagnosis Codes entered * * No Diagnosis Codes entered * Procedures * No procedures documented on diagnosis form * Surgeons * No surgeons found in log * Resident/Fellow/Other Fruit Sprayer: * No surgeons found in log * Procedure Summary Anesthesia: * No anesthesia type entered * ASA: ASA status not filed in the log. Anesthesia Staff: No anesthesia staff entered. Estimated Blood Loss: 0 mL Intra-op Medications: * Intraprocedure medication information is unavailable because the case start and end events have not been set * Intraprocedure I/O Totals None Specimen: No specimens collected Staff: Assessment Analyst: Joanne Assessment Analyst: Lynda Assessment Analyst: Yumi Medellin Person: Trey Drains and/or Catheters: * None in log * Tourniquet Times: Implants: Findings: Indications: Rocio Sandoval is an 78 y.o. male who is having surgery for * No pre-op diagnosis entered *. The patient was seen in the preoperative area. The risks, benefits, 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s, treatment options, non-operative alternatives, expected recovery and outcomes were discussed with the patient. The possibilities of reaction to medication, pulmonary aspiration, injury to surrounding structures, bleeding, recurrent infection, the need for additional procedures, failure to diagnose a condition, and creating a 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 requiring transfusion or operation were discussed with the patient. The patient concurred with the proposed plan, giving informed consent. The site of surgery was properly noted/marked if necessary per policy. The patient has been actively warmed in preoperative area. Preoperative antibiotics are not indicated. Venous thrombosis prophylaxis are not indicated. Procedure Details: Diagnosis: M54.16, lumbar radiculopathy Procedure: Bilateral L4/5 transforaminal epidural steroid injections under fluoroscopic guidance Anesthesia: Local Complications: None After informed consent was obtained, the patient was brought to the procedure suite and placed in the prone position. Pulse oximetry and blood pressure were monitored throughout. The low back area was prepped and draped in the usual sterile fashion. Using fluoroscopic guidance, the skin and subcutaneous tissue overlying the needle trajectory of the neuroforamina were anesthetized with 2.0% lidocaine. The 22-gauge Alon needles were then advanced under fluoroscopic guidance into the foramina. Needle tip positions were confirmed in at least two views. Injection of Omnipaque contrast revealed appropriate spread of the dye without vascular uptake. Next, at each site, 1.5 mL of 0.5% lidocaine and 5 mg dexamethasone were injected in divided doses through each needle tip. The needles were removed and the patient was then transferred to the recovery room in stable condition. The patient tolerated the procedure well. There were no apparent 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s. FOLLOW UP: The patient will update us on their response to this procedure, and agrees to continue currently prescribed/recommended therapies. Complications: None; patient tolerated the procedure well. Disposition: home Condition: stable Additional Details: Attending Attestation: *No primary surgeon found* documented in this encounter [facility] Work Phone: 12-07-2023 Miscellaneous Notes Discharge instructions reviewed by Ida Ruelas RN no questions and verbalized understanding. pt discharged amb to exit steady gait, to be driven home by family edin well * No procedures listed * Operative Note Date: 12/07/2023 OR Location: [place] [id number] OR Name: Rocio Sandoval, : 1945, Age: 78 y.o., , Sex: male Diagnosis * No Diagnosis Codes entered * * No Diagnosis Codes entered * Procedures * No procedures documented on diagnosis form * Surgeons * No surgeons found in log * Resident/Fellow/Other Fruit Sprayer: * No surgeons found in log * Procedure Summary Anesthesia: * No anesthesia type entered * ASA: ASA status not filed in the log. Anesthesia Staff: No anesthesia staff entered. Estimated Blood Loss: 0 mL Intra-op Medications: * Intraprocedure medication information is unavailable because the case start and end events have not been set * Intraprocedure I/O Totals None Specimen: No specimens collected Staff: Assessment Analyst: Joanne Assessment Analyst: Lynda Assessment Analyst: Yumi Medellin Person: Trey Drains and/or Catheters: * None in log * Tourniquet Times: Implants: Findings: Indications: Rocio Sandoval is an 78 y.o. male who is having surgery for * No pre-op diagnosis entered *. The patient was seen in the preoperative area. The risks, benefits, 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s, treatment options, non-operative alternatives, expected recovery and outcomes were discussed with the patient. The possibilities of reaction to medication, pulmonary aspiration, injury to surrounding structures, bleeding, recurrent infection, the need for additional procedures, failure to diagnose a condition, and creating a 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 requiring transfusion or operation were discussed with the patient. The patient concurred with the proposed plan, giving informed consent. The site of surgery was properly noted/marked if necessary per policy. The patient has been actively warmed in preoperative area. Preoperative antibiotics are not indicated. Venous thrombosis prophylaxis are not indicated. Procedure Details: Diagnosis: M54.16, lumbar radiculopathy Procedure: Bilateral L4/5 transforaminal epidural steroid injections under fluoroscopic guidance Anesthesia: Local Complications: None After informed consent was obtained, the patient was brought to the procedure suite and placed in the prone position. Pulse oximetry and blood pressure were monitored throughout. The low back area was prepped and draped in the usual sterile fashion. Using fluoroscopic guidance, the skin and subcutaneous tissue overlying the needle trajectory of the neuroforamina were anesthetized with 2.0% lidocaine. The 22-gauge Alon needles were then advanced under fluoroscopic guidance into the foramina. Needle tip positions were confirmed in at least two views. Injection of Omnipaque contrast revealed appropriate spread of the dye without vascular uptake. Next, at each site, 1.5 mL of 0.5% lidocaine and 5 mg dexamethasone were injected in divided doses through each needle tip. The needles were removed and the patient was then transferred to the recovery room in stable condition. The patient tolerated the procedure well. There were no apparent 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s. FOLLOW UP: The patient will update us on their response to this procedure, and agrees to continue currently prescribed/recommended therapies. Complications: None; patient tolerated the procedure well. Disposition: home Condition: stable Additional Details: Attending Attestation: *No primary surgeon found* documented in this encounter [facility] Work Phone: 12-07-2023 Note Formatting of this n ote might be different from the original. Discharge instructions reviewed by Ida Ruelas RN no questions and verbalized understanding. pt discharged amb to exit steady gait, to be driven home by family edin well [facility] 12-07-2023 Nurse Surgical operation note Discharge instructions reviewed by Ida Ruelas RN no questions and verbalized understanding. pt discharged amb to exit steady gait, to be driven home by family edin well [facility] 12-07-2023 History and physical note History Of Present Illness Rocio Sandoval is a 78 y.o. male presenting with back pain. Past Medical History Past Medical History: Diagnosis Date Benign prostatic hyperplasia without lower urinary tract symptoms 07/08/2021 BPH (benign prostatic hyperplasia) Calculus of kidney 12/30/2019 Bilateral renal stones Carpal tunnel syndrome, right upper limb 12/31/2019 Carpal tunnel syndrome of right wrist Cough 10/06/2022 Depression, unspecified 01/05/2022 Depression Disorder of arteries and arterioles, unspecified ([facility]) 01/05/2022 Peripheral arterial occlusive disease Dizziness 10/06/2022 Essential (primary) hypertension 06/29/2022 Hypertension, essential, benign Gastro-esophageal reflux disease without esophagitis 01/05/2022 GERD (gastroesophageal reflux disease) Hyperlipidemia, unspecified 01/05/2022 Hyperlipemia Influenza A 10/06/2022 Male erectile dysfunction, unspecified 09/03/2019 Erectile dysfunction Obesity, unspecified 08/16/2020 Obesity (BMI 30-39.9) Obstructive sleep apnea (adult) (pediatric) 01/05/2022 ALISHA on CPAP Personal history of diseases of the skin and subcutaneous tissue History of actinic keratosis Personal history of other infectious and parasitic diseases History of onychomycosis Personal history of other infectious and parasitic diseases History of tinea pedis Plantar fascial fibromatosis Plantar fasciitis Polyosteoarthritis, unspecified 09/23/2019 Generalized osteoarthritis of multiple sites Rash of genitalia 10/06/2022 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s (Multi) 01/05/2022 Type II 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 Venous insufficiency (chronic) (peripheral) Venous insufficiency of leg Surgical History Past Surgical History: Procedure Laterality Date CARDIAC PACEMAKER PLACEMENT 06/2022 OTHER SURGICAL HISTORY 06/18/2019 Lumbar vertebral fusion OTHER SURGICAL HISTORY 06/18/2019 Retinal detachment repair OTHER SURGICAL HISTORY 06/18/2019 Phacoemulsification of cataract and insertion of intraocular lens OTHER SURGICAL HISTORY 06/18/2019 Circumcision OTHER SURGICAL HISTORY 06/18/2019 Knee replacement OTHER SURGICAL HISTORY 06/18/2019 Sigmoidoscopy flexible OTHER SURGICAL HISTORY 06/18/2019 Dermatological cryotherapy OTHER SURGICAL HISTORY 06/18/2019 Esophagogastroduodenoscopy OTHER SURGICAL HISTORY 06/18/2019 Nail debridement OTHER SURGICAL HISTORY 06/18/2019 Epidural space injection OTHER SURGICAL HISTORY 07/07/2020 Colonoscopy OTHER SURGICAL HISTORY 01/05/2022 Catheter ablation OTHER SURGICAL HISTORY 08/16/2020 Cardiac catheterization OTHER SURGICAL HISTORY 05/11/2020 Inguinal hernia repair PACEMAKER PLACEMENT Social History He reports that he has never smoked. He has never been exposed to tobacco smoke. He has never used smokeless tobacco. He reports that he does not drink alcohol and does not use drugs. Family History Family History Problem Relation Name Age of Onset Other (CVA) Mother Diabetes type II Father Diabetes type II Sister Heart attack Brother Coronary artery disease Brother Kidney failure Brother Diabetes type II Brother Allergies Patient has no known allergies. Review of Systems All other systems reviewed and are negative. Physical Exam Last Recorded Vitals There were no vitals taken for this visit. Relevant Results Constitutional: No acute distress, well appearing and well nourished. Patient appears stated age. Eyes: nonicteric sclerae ENT: Hearing is grossly intact. Neck: trachea midline Head and Face: grossly normal. Respiratory: nonlabored breathing Cardiovascular: rate per vitals. Neuro: alert, moving extremities. Assessment/Plan Active Problems: There are no active Hospital Problems. Lumbar tfesi I spent minutes in the professional and overall care of this patient. James Alves DO [facility] Work Phone: 12-07-2023 History and physical note History Of Present Illness Rocio Sandoval is a 78 y.o. male presenting with back pain. Past Medical History Past Medical History: Diagnosis Date Benign prostatic hyperplasia without lower urinary tract symptoms 07/08/2021 BPH (benign prostatic hyperplasia) Calculus of kidney 12/30/2019 Bilateral renal stones Carpal tunnel syndrome, right upper limb 12/31/2019 Carpal tunnel syndrome of right wrist Cough 10/06/2022 Depression, unspecified 01/05/2022 Depression Disorder of arteries and arterioles, unspecified ([facility]) 01/05/2022 Peripheral arterial occlusive disease Dizziness 10/06/2022 Essential (primary) hypertension 06/29/2022 Hypertension, essential, benign Gastro-esophageal reflux disease without esophagitis 01/05/2022 GERD (gastroesophageal reflux disease) Hyperlipidemia, unspecified 01/05/2022 Hyperlipemia Influenza A 10/06/2022 Male erectile dysfunction, unspecified 09/03/2019 Erectile dysfunction Obesity, unspecified 08/16/2020 Obesity (BMI 30-39.9) Obstructive sleep apnea (adult) (pediatric) 01/05/2022 ALISHA on CPAP Personal history of diseases of the skin and subcutaneous tissue History of actinic keratosis Personal history of other infectious and parasitic diseases History of onychomycosis Personal history of other infectious and parasitic diseases History of tinea pedis Plantar fascial fibromatosis Plantar fasciitis Polyosteoarthritis, unspecified 09/23/2019 Generalized osteoarthritis of multiple sites Rash of genitalia 10/06/2022 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s (Multi) 01/05/2022 Type II 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 Venous insufficiency (chronic) (peripheral) Venous insufficiency of leg Surgical History Past Surgical History: Procedure Laterality Date CARDIAC PACEMAKER PLACEMENT 06/2022 OTHER SURGICAL HISTORY 06/18/2019 Lumbar vertebral fusion OTHER SURGICAL HISTORY 06/18/2019 Retinal detachment repair OTHER SURGICAL HISTORY 06/18/2019 Phacoemulsification of cataract and insertion of intraocular lens OTHER SURGICAL HISTORY 06/18/2019 Circumcision OTHER SURGICAL HISTORY 06/18/2019 Knee replacement OTHER SURGICAL HISTORY 06/18/2019 Sigmoidoscopy flexible OTHER SURGICAL HISTORY 06/18/2019 Dermatological cryotherapy OTHER SURGICAL HISTORY 06/18/2019 Esophagogastroduodenoscopy OTHER SURGICAL HISTORY 06/18/2019 Nail debridement OTHER SURGICAL HISTORY 06/18/2019 Epidural space injection OTHER SURGICAL HISTORY 07/07/2020 Colonoscopy OTHER SURGICAL HISTORY 01/05/2022 Catheter ablation OTHER SURGICAL HISTORY 08/16/2020 Cardiac catheterization OTHER SURGICAL HISTORY 05/11/2020 Inguinal hernia repair PACEMAKER PLACEMENT Social History He reports that he has never smoked. He has never been exposed to tobacco smoke. He has never used smokeless tobacco. He reports that he does not drink alcohol and does not use drugs. Family History Family History Problem Relation Name Age of Onset Other (CVA) Mother Diabetes type II Father Diabetes type II Sister Heart attack Brother Coronary artery disease Brother Kidney failure Brother Diabetes type II Brother Allergies Patient has no known allergies. Review of Systems All other systems reviewed and are negative. Physical Exam Last Recorded Vitals There were no vitals taken for this visit. Relevant Results Constitutional: No acute distress, well appearing and well nourished. Patient appears stated age. Eyes: nonicteric sclerae ENT: Hearing is grossly intact. Neck: trachea midline Head and Face: grossly normal. Respiratory: nonlabored breathing Cardiovascular: rate per vitals. Neuro: alert, moving extremities. Assessment/Plan Active Problems: There are no active Hospital Problems. Lumbar tfesi I spent minutes in the professional and overall care of this patient. James Alves DO documented in this encounter [facility] Work Phone: 12-07-2023 History and physical note History Of Present Illness Rocio Sandoval is a 78 y.o. male presenting with back pain. Past Medical History Past Medical History: Diagnosis Date Benign prostatic hyperplasia without lower urinary tract symptoms 07/08/2021 BPH (benign prostatic hyperplasia) Calculus of kidney 12/30/2019 Bilateral renal stones Carpal tunnel syndrome, right upper limb 12/31/2019 Carpal tunnel syndrome of right wrist Cough 10/06/2022 Depression, unspecified 01/05/2022 Depression Disorder of arteries and arterioles, unspecified ([facility]) 01/05/2022 Peripheral arterial occlusive disease Dizziness 10/06/2022 Essential (primary) hypertension 06/29/2022 Hypertension, essential, benign Gastro-esophageal reflux disease without esophagitis 01/05/2022 GERD (gastroesophageal reflux disease) Hyperlipidemia, unspecified 01/05/2022 Hyperlipemia Influenza A 10/06/2022 Male erectile dysfunction, unspecified 09/03/2019 Erectile dysfunction Obesity, unspecified 08/16/2020 Obesity (BMI 30-39.9) Obstructive sleep apnea (adult) (pediatric) 01/05/2022 ALISHA on CPAP Personal history of diseases of the skin and subcutaneous tissue History of actinic keratosis Personal history of other infectious and parasitic diseases History of onychomycosis Personal history of other infectious and parasitic diseases History of tinea pedis Plantar fascial fibromatosis Plantar fasciitis Polyosteoarthritis, unspecified 09/23/2019 Generalized osteoarthritis of multiple sites Rash of genitalia 10/06/2022 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s (Multi) 01/05/2022 Type II 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 Venous insufficiency (chronic) (peripheral) Venous insufficiency of leg Surgical History Past Surgical History: Procedure Laterality Date CARDIAC PACEMAKER PLACEMENT 06/2022 OTHER SURGICAL HISTORY 06/18/2019 Lumbar vertebral fusion OTHER SURGICAL HISTORY 06/18/2019 Retinal detachment repair OTHER SURGICAL HISTORY 06/18/2019 Phacoemulsification of cataract and insertion of intraocular lens OTHER SURGICAL HISTORY 06/18/2019 Circumcision OTHER SURGICAL HISTORY 06/18/2019 Knee replacement OTHER SURGICAL HISTORY 06/18/2019 Sigmoidoscopy flexible OTHER SURGICAL HISTORY 06/18/2019 Dermatological cryotherapy OTHER SURGICAL HISTORY 06/18/2019 Esophagogastroduodenoscopy OTHER SURGICAL HISTORY 06/18/2019 Nail debridement OTHER SURGICAL HISTORY 06/18/2019 Epidural space injection OTHER SURGICAL HISTORY 07/07/2020 Colonoscopy OTHER SURGICAL HISTORY 01/05/2022 Catheter ablation OTHER SURGICAL HISTORY 08/16/2020 Cardiac catheterization OTHER SURGICAL HISTORY 05/11/2020 Inguinal hernia repair PACEMAKER PLACEMENT Social History He reports that he has never smoked. He has never been exposed to tobacco smoke. He has never used smokeless tobacco. He reports that he does not drink alcohol and does not use drugs. Family History Family History Problem Relation Name Age of Onset Other (CVA) Mother Diabetes type II Father Diabetes type II Sister Heart attack Brother Coronary artery disease Brother Kidney failure Brother Diabetes type II Brother Allergies Patient has no known allergies. Review of Systems All other systems reviewed and are negative. Physical Exam Last Recorded Vitals There were no vitals taken for this visit. Relevant Results Constitutional: No acute distress, well appearing and well nourished. Patient appears stated age. Eyes: nonicteric sclerae ENT: Hearing is grossly intact. Neck: trachea midline Head and Face: grossly normal. Respiratory: nonlabored breathing Cardiovascular: rate per vitals. Neuro: alert, moving extremities. Assessment/Plan Active Problems: There are no active Hospital Problems. Lumbar tfesi I spent minutes in the professional and overall care of this patient. James Alves DO documented in this encounter [facility] Work Phone: 12-07-2023 Note Formatting of this n ote is different from the original. * No procedures listed * Operative Note Date: 12/07/2023 OR Location: [place] [address] OR Name: Rocio Sandoval DOB: 1945, Age: 78 y.o., , Sex: male Diagnosis * No Diagnosis Codes entered * * No Diagnosis Codes entered * Procedures * No procedures documented on diagnosis form * Surgeons * No surgeons found in log * Resident/Fellow/Other Fruit Sprayer: * No surgeons found in log * Procedure Summary Anesthesia: * No anesthesia type entered * ASA: ASA status not filed in the log. Anesthesia Staff: No anesthesia staff entered. Estimated Blood Loss: 0 mL Intra-op Medications: * Intraprocedure medication information is unavailable because the case start and end events have not been set * Intraprocedure I/O Totals None Specimen: No specimens collected Staff: Assessment Analyst: Joanne Assessment Analyst: Lynda Assessment Analyst: Yumi Scrub Person: Trey Drains and/or Catheters: * None in log * Tourniquet Times: Implants: Findings: Indications: Rocio Sandoval is an 78 y.o. male who is having surgery for * No pre-op diagnosis entered *. The patient was seen in the preoperative area. The risks, benefits, 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s, treatment options, non-operative alternatives, expected recovery and outcomes were discussed with the patient. The possibilities of reaction to medication, pulmonary aspiration, injury to surrounding structures, bleeding, recurrent infection, the need for additional procedures, failure to diagnose a condition, and creating a 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 requiring transfusion or operation were discussed with the patient. The patient concurred with the proposed plan, giving informed consent. The site of surgery was properly noted/marked if necessary per policy. The patient has been actively warmed in preoperative area. Preoperative antibiotics are not indicated. Venous thrombosis prophylaxis are not indicated. Procedure Details: Diagnosis: M54.16, lumbar radiculopathy Procedure: Bilateral L4/5 transforaminal epidural steroid injections under fluoroscopic guidance Anesthesia: Local Complications: None After informed consent was obtained, the patient was brought to the procedure suite and placed in the prone position. Pulse oximetry and blood pressure were monitored throughout. The low back area was prepped and draped in the usual sterile fashion. Using fluoroscopic guidance, the skin and subcutaneous tissue overlying the needle trajectory of the neuroforamina were anesthetized with 2.0% lidocaine. The 22-gauge Alon needles were then advanced under fluoroscopic guidance into the foramina. Needle tip positions were confirmed in at least two views. Injection of Omnipaque contrast revealed appropriate spread of the dye without vascular uptake. Next, at each site, 1.5 mL of 0.5% lidocaine and 5 mg dexamethasone were injected in divided doses through each needle tip. The needles were removed and the patient was then transferred to the recovery room in stable condition. The patient tolerated the procedure well. There were no apparent 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s. FOLLOW UP: The patient will update us on their response to this procedure, and agrees to continue currently prescribed/recommended therapies. Complications: None; patient tolerated the procedure well. Disposition: home Condition: stable Additional Details: Attending Attestation: *No primary surgeon found* [facility] Work Phone: 12-07-2023 Surgery Surgical operation note * No procedures listed * Operative Note Date: 12/07/2023 OR Location: [place] [address] OR Name: Rocio Sandoval, : 1945, Age: 78 y.o., , Sex: male Diagnosis * No Diagnosis Codes entered * * No Diagnosis Codes entered * Procedures * No procedures documented on diagnosis form * Surgeons * No surgeons found in log * Resident/Fellow/Other Fruit Sprayer: * No surgeons found in log * Procedure Summary Anesthesia: * No anesthesia type entered * ASA: ASA status not filed in the log. Anesthesia Staff: No anesthesia staff entered. Estimated Blood Loss: 0 mL Intra-op Medications: * Intraprocedure medication information is unavailable because the case start and end events have not been set * Intraprocedure I/O Totals None Specimen: No specimens collected Staff: Assessment Analyst: Joanne Assessment Analyst: Lynda Assessment Analyst: Yumi [place] Person: Trey Drains and/or Catheters: * None in log * Tourniquet Times: Implants: Findings: Indications: Rocio Sandoval is an 78 y.o. male who is having surgery for * No pre-op diagnosis entered *. The patient was seen in the preoperative area. The risks, benefits, 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s, treatment options, non-operative alternatives, expected recovery and outcomes were discussed with the patient. The possibilities of reaction to medication, pulmonary aspiration, injury to surrounding structures, bleeding, recurrent infection, the need for additional procedures, failure to diagnose a condition, and creating a 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 requiring transfusion or operation were discussed with the patient. The patient concurred with the proposed plan, giving informed consent. The site of surgery was properly noted/marked if necessary per policy. The patient has been actively warmed in preoperative area. Preoperative antibiotics are not indicated. Venous thrombosis prophylaxis are not indicated. Procedure Details: Diagnosis: M54.16, lumbar radiculopathy Procedure: Bilateral L4/5 transforaminal epidural steroid injections under fluoroscopic guidance Anesthesia: Local Complications: None After informed consent was obtained, the patient was brought to the procedure suite and placed in the prone position. Pulse oximetry and blood pressure were monitored throughout. The low back area was prepped and draped in the usual sterile fashion. Using fluoroscopic guidance, the skin and subcutaneous tissue overlying the needle trajectory of the neuroforamina were anesthetized with 2.0% lidocaine. The 22-gauge Alon needles were then advanced under fluoroscopic guidance into the foramina. Needle tip positions were confirmed in at least two views. Injection of Omnipaque contrast revealed appropriate spread of the dye without vascular uptake. Next, at each site, 1.5 mL of 0.5% lidocaine and 5 mg dexamethasone were injected in divided doses through each needle tip. The needles were removed and the patient was then transferred to the recovery room in stable condition. The patient tolerated the procedure well. There were no apparent 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s. FOLLOW UP: The patient will update us on their response to this procedure, and agrees to continue currently prescribed/recommended therapies. Complications: None; patient tolerated the procedure well. Disposition: home Condition: stable Additional Details: Attending Attestation: *No primary surgeon found* [facility] Work Phone: 12-05-2023 History of Present illness Narrative Nail care, left great toe pain Patient is a pleasant 78 year-old male who comes in today for diabetic nail care. His diabetes is managed by primary care including Dr. Kin Anne. Hemoglobin A1c is 7.5% with some tingling burning and loss of sensation. Physical Vascular: DP pulses are palpable 2 out of 4. PT pulses are nonpalpable bilaterally. CFT is fair with mild edema. Compression socks are helping. Feet are warm to cool proximal to distal. Hair growth absent to the lower extremity and skin is shiny atrophic dysvascular. Nails one left and one right are elongated thickened mycotic crumbling and dystrophic. Nails left foot 2345 and right foot 2345 are elongated and thickened and mycotic. Neuro: Sharp dull is blunted Babinski's is fair. Musculoskeletal: Muscle strength is 5/5 with fair tone, can easily wiggle toes without any clicking or catching. Left great toe is painful with compression of the first MPJ though the IPJ is full and pain-free. Otherwise can easily wiggle toes without any clicking or catching Assessment and plan: Patient is a pleasant 78-year-old male, diabetes with peripheral arterial disease, onychomycosis to two nails and onychodystrophy to eight nails. -He does qualify for nail care given his peripheral arterial disease and risk. Procedure: Nails left foot one 2345 bilaterally were sharply debrided and debulk in height and length with a sharp pair of nail nippers consistent with a q8 modifier. Start topical ammonium lactate daily, called in to [facility] rx. Follow-up in 3 months for foot nail care. documented in this encounter [facility] 11-25-2023 History of Present illness Narrative [facility] [address] [facility] [address] [facility] [id number] Chief Complaint Patient presents with Left Knee - Pain Rocio Sandoval returns to the office today for left knee pain. About a week ago, he had significant pain in the left knee without any injury. He ended up having to use a cane for ambulation. Today he walked into the office unassisted. The left knee is replaced and he wanted to make sure there was nothing wrong with the hardware. The patient's past medical history, surgical history, social history, family history, medications and allergies were reviewed with the patient today and are available in the chart for further review. Allergies Allergen Reactions Morphine Nausea and vomiting He was 15 when he had a reaction. It was actually anesthetics. No Known Allergies Current Outpatient Medications: acetaminophen (TYLENOL ORAL), Take 650 mg by mouth., Disp: , Rfl: amiodarone (CORDARONE) 200 MG tablet, Take 1 (one) tablet (200 mg total) by mouth at bedtime ., Disp: , Rfl: atorvastatin (LIPITOR) 40 MG tablet, Take 1 (one) tablet (40 mg total) by mouth nightly ., Disp: , Rfl: blood sugar diagnostic (glucose blood) strips, by Miscellaneous route ., Disp: , Rfl: empagliflozin (Jardiance) 25 mg Tab, Take by mouth ., Disp: , Rfl: fexofenadine (SULAIMAN) 180 MG tablet, TAKE 1 TABLET (180 MG) BY MOUTH ONCE DAILY., Disp: , Rfl: furosemide (LASIX) 20 MG tablet, Take 1 (one) tablet (20 mg total) by mouth every other day ., Disp: , Rfl: gabapentin (NEURONTIN) 400 MG capsule, Take 1 (one) capsule (400 mg total) by mouth 3 (three) times a day ., Disp: , Rfl: MELATONIN ORAL, Take by mouth ., Disp: , Rfl: metFORMIN (GLUCOPHAGE-XR) 750 MG 24 hr tablet, Take 1 (one) tablet (750 mg total) by mouth 2 (two) times a day Take 1 tab bid ., Disp: , Rfl: mupirocin (BACTROBAN) 2 % ointment, Apply topically 3 (three) times a day ., Disp: 22 g, Rfl: 0 omeprazole (PRILOSEC) 40 MG capsule, , Disp: , Rfl: rivaroxaban (XARELTO) 20 mg Tab, Take 1 (one) tablet (20 mg total) by mouth daily ., Disp: , Rfl: tamsulosin (FLOMAX) 0.4 mg capsule, every morning before breakfast ., Disp: , Rfl: testosterone cypionate (DEPOTESTOTERONE CYPIONATE) 100 mg/mL injection, Inject 1 mL (100 mg total) into the shoulder, thigh, or buttocks every 14 (fourteen) days ., Disp: , Rfl: therapeutic multivitamin (THERAGRAN) tablet, Take 1 (one) tablet by mouth daily ., Disp: , Rfl: traZODone (DESYREL) 50 MG tablet, TAKE 1 2 (ONE HALF) TABLET BY MOUTH ONCE DAILY AT BEDTIME, Disp: , Rfl: Past Medical History: Diagnosis Date A-fib (HCC) Acquired hammer toe Allergy Arthritis Back pain Cataract removed Diabetes mellitus, type 2 (HCC) Dizzy spells Foot cramps Foot pain, bilateral Fracture of phalanx of toe Frequent urination GERD (gastroesophageal reflux disease) Hiatal hernia High blood pressure High cholesterol History of stress test 03/08/2018 scheduled at [facility] Kidney stones 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 Nephrolithiasis passed Night sweats Numbness in both hands Obesity OM (onychomycosis) PAD (peripheral artery disease) (HCC) Peripheral neuropathy numbness fingers, tingling and some numbness left leg and foot Plantar fasciitis right Pneumonia in infectious disease PONV (postoperative nausea and vomiting) Radiculopathy of lumbar region Ringing in ears Shortness of breath on exertion Sinus pain Swollen feet Tinea pedis Tired feet Urinary urgency Venous insufficiency of both lower extremities Vision problem Past Surgical History: Procedure Laterality Date ABLATION WITH PHENOL BACK SURGERY 1960 LUMBAR BURSECTOMY ELBOW Left 01/05/2023 Procedure: Left elbow bursectomy; Surgeon: Elías Hsu MD; Location: Main OR; Service: Orthopedic CARDIAC PACEMAKER PLACEMENT CATARACT EXT/ECCE Right COLONOSCOPY X 3 CT COLONOSCOPY 07/16/2022 CT COLONOSCOPY ESOPHAGOGASTRODUODENOSCOPY HERNIA REPAIR Right INGUINAL LAMINECTOMY DECOMP LUMBAR MULTI LEVEL Right 03/13/2018 Procedure: RIGHT L2-L5 LAMINECTOMY DECOMPRESSION; Surgeon: Kailey Hilton MD; Location: [facility] Main OR; Service: Orthopedic RETINAL DETACHMENT SURGERY TOTAL KNEE ARTHROPLASTY Left 06/2016 Social History Socioeconomic History Marital status: Tobacco Use Smoking status: Never Smokeless tobacco: Never Vaping Use Vaping Use: Never used Substance and Sexual Activity Alcohol use: No Alcohol/week: 0.0 standard drinks of alcohol Drug use: No ROS: Review of Systems Musculoskeletal: Positive for arthralgias and myalgias. Negative for gait problem and joint swelling. PE: Physical Exam Musculoskeletal: Left knee: No effusion. ORTHO: Left Knee Exam Tenderness The patient is experiencing tenderness in the LCL and MCL. Range of Motion Extension: normal Flexion: 120 Tests Varus: negative Valgus: negative Other Erythema: absent Scars: present Sensation: normal Pulse: present Swelling: mild Effusion: no effusion present Imaging: L Knee: No acute fracture or dislocation. Intact total left knee arthroplasty in good position without evidence of hardware loosening or 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s. Assessment/Plan: After examination and reviewing of the patient x-ray images, I am having him continue with activity as tolerated. Otc pain medications as needed. If he starts to have worsening of symptoms or increased episodes of sudden sharp pain, he will follow up with Dr. Hsu. documented in this encounter [facility] 11-21-2023 History of Present illness Narrative Subjective Rocio Sandoval is a 78 y.o. male with pseudogout, DM, HTN, A fibrillation (on xarelto, s/p ablation), has cardiac pacemaker, and ALISHA, presents for follow up Current rheum meds: - Tylenol 500 mg BID Previous rheum meds: - None HPI Back pain and is going to get an injection next month at [facility] -> did a lot of xrays -> MRI of the spine, on gabapentin Reports some issues with closing his right hand Episodes of some swelling, stiffness and pain in his right hand The episodes are lasting longer, took Tylenol arthritis 2 tab BID and it helped He is squeezing a stress ball and doing hot water which helps as well No CKD Compliant with meds No side effects reported No colonoscopy recently, last one was 4 years ago No blood per rectum, constipated started on laxatives and it helped ROS: As per HPI Rheum hx (Recall from Dr. Solorio's notes): Presenting sx: Patient states couple months ago he started to experience localized pain, swelling, stiffness around the left wrist and dorsum of the hand with associated difficulty making a fist. The symptoms are intermittent, the stiffness improves with activity and mostly localized to the left with mild symptoms on the right. 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 He does not take any Tylenol or NSAIDs on regular basis. 3 weeks ago he was working in yard chopping wood and started to have allergy sx for which he recently saw his primary care doctor and was prescribed prednisone 20 mg once a day. Patient states he started this last night and did notice an improvement in the stiffness swelling and pain at his wrist and the hand. He denies significant sx of neck pain, shoulder pain, hip involvement. He has chronic low back pain related to degenerative disc disease and has had back surgeries in the past (last three years ago). History of left knee replacement. He currently complains of intermittent right knee pain. No significant swelling He has chronic neuropathy in left foot- on gabapentin 600mg 3 times a day Has been taking tylenol 1 tab at night and it helps. Has had issues with left elbow bursitis sees orthopedics. This has previously been drained 3 times however recurs and more recently had a procedure done with removal of the bursa sac. It appears to be healing but he still has stitches in place. He denies prior history of gout, unsure if he has had fluid analysis on the aspirations/bursa. Denies recent fevers. PSH: left knee replacement, back surgery SocHX: Denies smoking, ETOH use or recreational drug use Amiodarone was started recently, no other new medications. He is on a stable dose of atorvastatin Patient Active Problem List Diagnosis Bilateral renal stones BPH (benign prostatic hyperplasia) Bradycardia Carpal tunnel syndrome of right wrist Cervical spondylosis Lumbosacral spondylosis Thoracic spondylosis Chronic diastolic congestive heart failure (Multi) Chronic low back pain Chronotropic incompetence Erectile dysfunction Fatigue Generalized osteoarthritis of multiple sites GERD (gastroesophageal reflux disease) Hyperlipemia Hypertension, essential, benign Mild CAD 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 stenosis Obesity (BMI 30-39.9) ALISHA on CPAP Peripheral arterial occlusive disease ([facility]) Phimosis Prolapsed lumbar disc Sacroiliitis ([facility]) Afib (Multi) Sinus node dysfunction (Multi) Synovial cyst of right popliteal space Thoracic radiculitis Type II 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 (Multi) Venous insufficiency of leg 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, single episode, in partial remission ([facility]) Calcium pyrophosphate deposition disease (CPPD) Arthropathy of right knee Eczema Lumbar radiculopathy Cervical radiculitis Past Medical History: Diagnosis Date Benign prostatic hyperplasia without lower urinary tract symptoms 07/08/2021 BPH (benign prostatic hyperplasia) Calculus of kidney 12/30/2019 Bilateral renal stones Carpal tunnel syndrome, right upper limb 12/31/2019 Carpal tunnel syndrome of right wrist Cough 10/06/2022 Depression, unspecified 01/05/2022 Depression Disorder of arteries and arterioles, unspecified ([facility]) 01/05/2022 Peripheral arterial occlusive disease Dizziness 10/06/2022 Essential (primary) hypertension 06/29/2022 Hypertension, essential, benign Gastro-esophageal reflux disease without esophagitis 01/05/2022 GERD (gastroesophageal reflux disease) Hyperlipidemia, unspecified 01/05/2022 Hyperlipemia Influenza A 10/06/2022 Male erectile dysfunction, unspecified 09/03/2019 Erectile dysfunction Obesity, unspecified 08/16/2020 Obesity (BMI 30-39.9) Obstructive sleep apnea (adult) (pediatric) 01/05/2022 ALISHA on CPAP Personal history of diseases of the skin and subcutaneous tissue History of actinic keratosis Personal history of other infectious and parasitic diseases History of onychomycosis Personal history of other infectious and parasitic diseases History of tinea pedis Plantar fascial fibromatosis Plantar fasciitis Polyosteoarthritis, unspecified 09/23/2019 Generalized osteoarthritis of multiple sites Rash of genitalia 10/06/2022 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s (Multi) 01/05/2022 Type II 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 Venous insufficiency (chronic) (peripheral) Venous insufficiency of leg Past Surgical History: Procedure Laterality Date CARDIAC PACEMAKER PLACEMENT 06/2022 OTHER SURGICAL HISTORY 06/18/2019 Lumbar vertebral fusion OTHER SURGICAL HISTORY 06/18/2019 Retinal detachment repair OTHER SURGICAL HISTORY 06/18/2019 Phacoemulsification of cataract and insertion of intraocular lens OTHER SURGICAL HISTORY 06/18/2019 Circumcision OTHER SURGICAL HISTORY 06/18/2019 Knee replacement OTHER SURGICAL HISTORY 06/18/2019 Sigmoidoscopy flexible OTHER SURGICAL HISTORY 06/18/2019 Dermatological cryotherapy OTHER SURGICAL HISTORY 06/18/2019 Esophagogastroduodenoscopy OTHER SURGICAL HISTORY 06/18/2019 Nail debridement OTHER SURGICAL HISTORY 06/18/2019 Epidural space injection OTHER SURGICAL HISTORY 07/07/2020 Colonoscopy OTHER SURGICAL HISTORY 01/05/2022 Catheter ablation OTHER SURGICAL HISTORY 08/16/2020 Cardiac catheterization OTHER SURGICAL HISTORY 05/11/2020 Inguinal hernia repair PACEMAKER PLACEMENT Social History Socioeconomic History Marital status: Spouse name: Not on file Number of children: Not on file Years of education: Not on file Highest education level: Not on file Occupational History Not on file Tobacco Use Smoking status: Never Passive exposure: Never Smokeless tobacco: Never Vaping Use Vaping status: Never Used Substance and Sexual Activity Alcohol use: Never Drug use: Never Sexual activity: Defer Other Topics Concern Not on file Social History Narrative Not on file Social Determinants of Health Financial Resource Strain: Not on file Food Insecurity: Not on file Transportation Needs: Not on file Physical Activity: Not on file Stress: Not on file Social Connections: Not on file Intimate Partner Violence: Not on file Housing Stability: Not on file No Known Allergies Current Outpatient Medications: amiodarone (Pacerone) 200 mg tablet, Take 1/2 tablet daily, Disp: 45 tablet, Rfl: 3 atorvastatin (Lipitor) 40 mg tablet, Take 1 tablet (40 mg) by mouth once daily at bedtime., Disp: 90 tablet, Rfl: 3 B6/folic/B12/coffee/phosphatid (NEURIVA PLUS BRAIN PERFORMANCE ORAL), Take 1 tablet by mouth once daily., Disp: , Rfl: empagliflozin (Jardiance) 25 mg, Take 1 tablet (25 mg) by mouth once daily., Disp: 90 tablet, Rfl: 3 fexofenadine (Sulaiman) 180 mg tablet, Take 1 tablet (180 mg) by mouth once daily., Disp: 90 tablet, Rfl: 3 FreeStyle Vince 14 Day [place] misc, Use as instructed, Disp: 1 each, Rfl: 0 FreeStyle Vince 14 Day Sensor kit, Use as instructed, Disp: 2 each, Rfl: 11 furosemide (Lasix) 20 mg tablet, Take 1 tablet (20 mg) by mouth once daily., Disp: , Rfl: gabapentin (Neurontin) 800 mg tablet, Take 1 tablet (800 mg) by mouth 4 times a day. (Patient taking differently: Take 1 tablet (800 mg) by mouth 4 times a day. Takes 3 time a day), Disp: 360 tablet, Rfl: 0 melatonin 5 mg capsule, Take by mouth., Disp: , Rfl: metFORMIN XR (Glucophage-XR) 750 mg 24 hr tablet, Take 1 tablet (750 mg) by mouth 2 times a day., Disp: 180 tablet, Rfl: 3 multivitamin (MULTIPLE VITAMINS ORAL), Take 1 tablet by mouth once daily., Disp: , Rfl: omeprazole (PriLOSEC) [address] capsule, Take 1 capsule (40 mg) by mouth once daily., Disp: 90 capsule, Rfl: 3 rivaroxaban (Xarelto) 20 mg tablet, Take 1 tablet (20 mg) by mouth once daily., Disp: 90 tablet, Rfl: 3 tamsulosin (Flomax) 0.4 mg 24 hr capsule, Take 1 capsule (0.4 mg) by mouth once daily., Disp: 90 capsule, Rfl: 3 testosterone cypionate (Depo-Testosterone) 100 mg/mL injection, Inject 1 mL (100 mg) into the muscle every 14 (fourteen) days., Disp: 2 mL, Rfl: 3 vitamins A,C,U-ciif-yavegj (Eye Multivitamin) 2,148 mcg-113 mg-45 mg-17.4mg tablet, Take 1 tablet by mouth once daily., Disp: , Rfl: Objective Visit Vitals BP 122/72 Pulse 82 Temp 37.1 C (98.7 F) Resp 20 Physical Exam: General: AAOx3, Cooperative Eyes: EOMI, conjunctiva clear, sclera white, anicteric Throat/Mouth: No oral deformities, no cheek swelling, mucosa appear moist, no oral ulcers noted or loss of dentition Skin: Some ecchymoses over the forearms MSK: Upper Extremities: Hand/Fingers: No erythema, edema, tenderness or warmth at DIP, PIP, or MCP joints, FROM grossly. 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 No nodules. No deformities. Mild squaring of his 1st CMC joints Wrists: No erythema, edema, warmth or tenderness at wrist, FROM grossly Elbows: No tenderness, edema, erythema or warmth at elbows, FROM grossly. No nodules Shoulders: No edema, erythema, tenderness or warmth at shoulders. FROM Lower Extremities: Hips: No obvious deformities. No joint tenderness, normal ROM grossly. No trochanteric bursae TTP Knees: No tenderness, deformities, edema, rashes, or warmth, normal ROM grossly. No crepitus, no pes anserine bursa TTP. Scar over the left knee from replacement surgery Ankles, feet: No deformities, tenderness, edema, erythema, ulceration, or warmth at the ankle or MTP/IP joints, normal ROM grossly Spine: No spinal tenderness to palpation. No SI joint tenderness Lab Results Component Value Date WBC 7.8 11/16/2023 HGB 12.7 (L) 11/16/2023 HCT 41.1 11/16/2023 MCV 94 11/16/2023 PLT 294 11/16/2023 Chemistry Lab Results Component Value Date/Time NA 141 11/16/2023 0805 K 4.0 11/16/2023 0805 CL 106 11/16/2023 0805 CO2 28 11/16/2023 0805 BUN 16 11/16/2023 0805 CREATININE 0.96 11/16/2023 0805 Lab Results Component Value Date/Time CALCIUM 8.9 11/16/2023 0805 ALKPHOS 66 11/16/2023 0805 AST 11 11/16/2023 0805 ALT 10 11/16/2023 0805 BILITOT 0.7 11/16/2023 0805 Lab Results Component Value Date CRP 0.13 11/16/2023 Lab Results Component Value Date SEDRATE 25 (H) 11/16/2023 Lab Results Component Value Date ALT 10 11/16/2023 AST 11 11/16/2023 ALKPHOS 66 11/16/2023 BILITOT 0.7 11/16/2023 Lab Results Component Value Date URICACID 3.3 (L) 01/26/2023 ECG 12 lead (Clinic Performed) Ventricular paced rhythm Xray knee 04/23: No acute osseous abnormality. Right knee degenerative changes at least moderate in severity in the medial knee compartment. Similar compared to 05/09/2022. Intact left total knee replacement. Xray hands 12/22 Left: Osteoarthritis is severe at the 1st CMC with intra-articular calcific bodies, mild at most of the interphalangeal joints. There is a 2 mm metallic body within the soft tissues near the 4th D IP joint. Additional small foreign body at the ulnar aspect of the hand is unchanged. There is soft tissue edema at the wrist. Right: Negative ulnar variance. No periosteal reaction or erosion. Mild osteoarthritis at the radiocarpal joint, 1st CMC, triscaphe joint, and most of the interphalangeal joints. No acute soft tissue abnormality. Minimal TFCC chondrocalcinosis. === 01/26/23 === KNEE Moderate medial compartment arthritis. Severe chondrocalcinosis which can be seen with CPPD arthropathy === 03/31/21 === MR LUMBAR SPINE W AND WO CONTRAST * Postoperative changes as described *Mild canal narrowing at L4/L5 partially due to a right-sided synovial cyst *Foraminal narrowing throughout the lumbar spine as described Assessment/Plan This is an 78 Y M with pseudogout and OA, presents for follow up. Last seen in 05/24 Intermittent worsening symptoms with localized pain, swelling, stiffness, mostly at the wrist/hand L>R and R knee, no recurrence, prior involvement of L olecranon bursa with chronic bursitis, is most c/w crystal arthritis, CPPD (prior imaging does reveal chondrocalcinosis at TFCC and knee). No prior fluid analysis. Uric acid 3.3 Pt has underlying OA which maybe contributing to some joint pain/stiffness. Lower clinical suspicion for RA (no significant symmetrical/MCP involvement, RF/CCP negative), ESR/CRP, CK nml. His attacks are becoming more frequent lately and lasting longer. Will start him on colchicine PRN. Pt is agreeable after explaining the risks and benefits Labs: 11/22: HB 12/7, rest of CBC, CMP, ESR, CRP wnl 10/23: CBC, CMP, vitamin B12, UA, Uprt, TSH wnl. HbA1c 7.3%, 06/23: Hb 12.4, rest of CBC, CMP wnl 04/23: Hb 12.6, CMP wnl 01/21: ESR 20, CRP 0.5, CCP, RF neg, UA 3.3 Imaging: Knee xray 01/21: Moderate medial compartment arthritis. Severe chondrocalcinosis which can be seen with CPPD arthropathy Xray right hand 12/22: Negative ulnar variance. No periosteal reaction or erosion. Mild osteoarthritis at the radiocarpal joint, 1st CMC, triscaphe joint, and most of the interphalangeal joints. No acute soft tissue abnormality. Minimal TFCC chondrocalcinosis. # CPPD arthritis, Knee and hand xrays show chondrocalcinosis, no current effusion. Worse control of sx, more frequent attacks. Will start on Colchicine PRN # OA of multiple joints # Back pain with prolonged activity, will begetting injections soon - Start colchicine 0.6 mg daily PRN for the attacks - Tylenol upto 1-2gm/day for OA - Labs with next mark (CBC, CMP, ESR, CRP) - Advised to get the flu vaccine before RTC in 6 months Plan, including risks and benefits, was discussed with the patient, informed on how to reach us. To schedule an appointment, call To reach the rheumatology office, call Sheyla Schultz MD Division of Rheumatology [facility] documented in this encounter [facility] Work Phone: 11-19-2023 History of Present illness Narrative Images from the original note were not included. [facility] Office Note Active Issues This is a 78 y.o. male patient of Dr. 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 Patient reportedly has been forgetting to take his prescribed furosemide. He last saw Dr. Stroud him on March 01, 2023 who addressed his atrial fibrillation and heart failure with preserved ejection fraction. C/o heart flutters 3-4 weeks ago, while sitting, lasts a 5 mins or less, 2-3 a day, has not felt it in 2 weeks. SOB with physical exertion, like splitting wood. Forgot to take lasix for two weeks, gained 5 lbs. Today he denies chest pain, shortness of breath, palpitations, leg edema, fever, chills, orthopnea, paroxysmal nocturnal dyspnea or syncope. Past Medical History Past Medical History: Diagnosis Date Benign prostatic hyperplasia without lower urinary tract symptoms 07/08/2021 BPH (benign prostatic hyperplasia) Calculus of kidney 12/30/2019 Bilateral renal stones Carpal tunnel syndrome, right upper limb 12/31/2019 Carpal tunnel syndrome of right wrist Cough 10/06/2022 Depression, unspecified 01/05/2022 Depression Disorder of arteries and arterioles, unspecified ([facility]) 01/05/2022 Peripheral arterial occlusive disease Dizziness 10/06/2022 Essential (primary) hypertension 06/29/2022 Hypertension, essential, benign Gastro-esophageal reflux disease without esophagitis 01/05/2022 GERD (gastroesophageal reflux disease) Hyperlipidemia, unspecified 01/05/2022 Hyperlipemia Influenza A 10/06/2022 Male erectile dysfunction, unspecified 09/03/2019 Erectile dysfunction Obesity, unspecified 08/16/2020 Obesity (BMI 30-39.9) Obstructive sleep apnea (adult) (pediatric) 01/05/2022 ALISHA on CPAP Personal history of diseases of the skin and subcutaneous tissue History of actinic keratosis Personal history of other infectious and parasitic diseases History of onychomycosis Personal history of other infectious and parasitic diseases History of tinea pedis Plantar fascial fibromatosis Plantar fasciitis Polyosteoarthritis, unspecified 09/23/2019 Generalized osteoarthritis of multiple sites Rash of genitalia 10/06/2022 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s (Multi) 01/05/2022 Type II 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 Venous insufficiency (chronic) (peripheral) Venous insufficiency of leg Past Surgical History Past Surgical History: Procedure Laterality Date CARDIAC PACEMAKER PLACEMENT 06/2022 OTHER SURGICAL HISTORY 06/18/2019 Lumbar vertebral fusion OTHER SURGICAL HISTORY 06/18/2019 Retinal detachment repair OTHER SURGICAL HISTORY 06/18/2019 Phacoemulsification of cataract and insertion of intraocular lens OTHER SURGICAL HISTORY 06/18/2019 Circumcision OTHER SURGICAL HISTORY 06/18/2019 Knee replacement OTHER SURGICAL HISTORY 06/18/2019 Sigmoidoscopy flexible OTHER SURGICAL HISTORY 06/18/2019 Dermatological cryotherapy OTHER SURGICAL HISTORY 06/18/2019 Esophagogastroduodenoscopy OTHER SURGICAL HISTORY 06/18/2019 Nail debridement OTHER SURGICAL HISTORY 06/18/2019 Epidural space injection OTHER SURGICAL HISTORY 07/07/2020 Colonoscopy OTHER SURGICAL HISTORY 01/05/2022 Catheter ablation OTHER SURGICAL HISTORY 08/16/2020 Cardiac catheterization OTHER SURGICAL HISTORY 05/11/2020 Inguinal hernia repair PACEMAKER PLACEMENT Medications Current Outpatient Medications on File Prior to Visit Medication Sig Dispense Refill acetaminophen (Tylenol) 500 mg capsule Take 1 capsule (500 mg) by mouth 2 times a day. 180 capsule 1 amiodarone (Pacerone) 200 mg tablet Take 1/2 tablet daily 45 tablet 3 atorvastatin (Lipitor) 40 mg tablet Take 1 tablet (40 mg) by mouth once daily at bedtime. 90 tablet 3 B6/folic/B12/coffee/phosphatid (NEURIVA PLUS BRAIN PERFORMANCE ORAL) Take 1 tablet by mouth once daily. empagliflozin (Jardiance) 25 mg Take 1 tablet (25 mg) by mouth once daily. 90 tablet 3 fexofenadine (Sulaiman) 180 mg tablet Take 1 tablet (180 mg) by mouth once daily. 90 tablet 3 FreeStyle Vince 14 Day [place] misc Use as instructed 1 each 0 FreeStyle Vince 14 Day Sensor kit Use as instructed 2 each 11 furosemide (Lasix) 20 mg tablet Take 1 tablet (20 mg) by mouth once daily. Takes 1-2 times per week gabapentin (Neurontin) 800 mg tablet Take 1 tablet (800 mg) by mouth 4 times a day. (Patient taking differently: Take 1 tablet (800 mg) by mouth 4 times a day. Takes 3 time a day) 360 tablet 0 melatonin 5 mg capsule Take by mouth. metFORMIN XR (Glucophage-XR) 750 mg 24 hr tablet Take 1 tablet (750 mg) by mouth 2 times a day. 180 tablet 3 multivitamin (MULTIPLE VITAMINS ORAL) Take 1 tablet by mouth once daily. omeprazole (PriLOSEC) [address] capsule Take 1 capsule (40 mg) by mouth once daily. 90 capsule 3 rivaroxaban (Xarelto) 20 mg tablet Take 1 tablet (20 mg) by mouth once daily. 90 tablet 3 tamsulosin (Flomax) 0.4 mg 24 hr capsule Take 1 capsule (0.4 mg) by mouth once daily. 90 capsule 3 testosterone cypionate (Depo-Testosterone) 100 mg/mL injection Inject 1 mL (100 mg) into the muscle every 14 (fourteen) days. 2 mL 3 vitamins A,C,W-hgka-ekppww (Eye Multivitamin) 2,148 mcg-113 mg-45 mg-17.4mg tablet Take 1 tablet by mouth once daily. No current facility-administered medications on file prior to visit. Allergies No Known Allergies Social History Social History Tobacco Use Smoking status: Never Passive exposure: Never Smokeless tobacco: Never Vaping Use Vaping status: Never Used Substance Use Topics Alcohol use: Never Drug use: Never Family History Family History Problem Relation Name Age of Onset Other (CVA) Mother Diabetes type II Father Diabetes type II Sister Heart attack Brother Coronary artery disease Brother Kidney failure Brother Diabetes type II Brother VITALS There were no vitals filed for this visit. Weight There were no vitals filed for this visit. PHYSICAL EXAM Physical Exam Vitals and nursing note reviewed. Constitutional: General: He is not in acute distress. HENT: Head: Normocephalic and atraumatic. Mouth/Throat: Mouth: Mucous membranes are moist. Pharynx: Oropharynx is clear. Eyes: General: No scleral icterus. Pupils: Pupils are equal, round, and reactive to light. Cardiovascular: Rate and Rhythm: Normal rate. Rhythm irregular. Chest Wall: PMI is not displaced. Pulses: Normal pulses. Heart sounds: Normal heart sounds. No murmur heard. No friction rub. Pulmonary: Effort: Pulmonary effort is normal. Breath sounds: Normal breath sounds. Abdominal: General: Bowel sounds are normal. There is no distension. Palpations: Abdomen is soft. Tenderness: There is no abdominal tenderness. Musculoskeletal: General: No swelling. Normal range of motion. Cervical back: Normal range of motion and neck supple. Right lower leg: No edema. Left lower leg: No edema. Skin: General: Skin is warm and dry. Capillary Refill: Capillary refill takes less than 2 seconds. Findings: No rash. Neurological: General: No focal deficit present. Mental Status: He is alert. Psychiatric: Mood and Affect: Mood normal. Behavior: Behavior normal. Cardiovascular Imaging/Procedures/Labs Lab Results Component Value Date HGB 12.7 (L) 11/16/2023 HGB 13.6 10/23/2023 HGB 12.4 (L) 06/13/2023 PLT 294 11/16/2023 WBC 7.8 11/16/2023 NA 141 11/16/2023 K 4.0 11/16/2023 CREATININE 0.96 11/16/2023 CREATININE 0.88 10/23/2023 CREATININE 1.00 06/13/2023 BUN 16 11/16/2023 CALCIUM 8.9 11/16/2023 INR 1.4 (H) 03/16/2023 BNP 48 08/25/2022 TROPHS <3 08/25/2022 TROPHS <3 08/25/2022 LDLF 55 10/03/2022 No echocardiogram results found for the past 12 months ECG 12 lead (Ancillary Performed) Ventricular-paced rhythm Abnormal ECG When compared with ECG of 16-MAR-2023 13:28, Previous ECG has undetermined rhythm, needs review Confirmed by Joel Stroud ([id number]) on 10/23/2023 10:07:07 PM Assessment and Plan Persistent atrial fibrillation Sick sinus syndrome status post dual-chamber permanent pacemaker -Heart rate well-controlled with amiodarone -Primary stroke prevention with Xarelto 20 mg daily -EKG in the office today shows ventricular paced rhythm with ventricular rate of 63 bpm. -In-Clinic device check 10/23/2023 showed normal pacemaker function with no ventricular arrhythmia. 100% AFIB burden. -I am not sure if the fluttering he was feeling was from his heart. Regardless he has not felt that enough for 2 weeks. I do not feel like it warrants any further investigation or intervention at this time. Heart failure with preserved ejection fraction -Echocardiogram June 2021 shows preserved LV systolic function with estimated LVEF 60 to 65% with grade 1 diastolic dysfunction. -He is warm and dry on exam today -Keep Lasix 20 mg daily and Jardiance 25 mg daily. RTC: Follow-up with Dr. Stroud, keep scheduled appointment for March 13, 2024 If your symptoms worsen or progress please go directory to your nearest emergency department for evaluation. Thank you for this interesting clinical case and allowing me to participate in the care of this patient. Please reach me out if you have any questions or if you need any clarifications regarding this patient's care. Disclaimer: This note was dictated by speech recognition, and every effort has been made to prevent any error in scrum project manager, however minor errors may be present Octavio Marmolejo, MSN, BUTCHER HELPER, ACNPC, CCRN Division of Cardiovascular Medicine [facility] and Vascular [facility] documented in this encounter [facility] Work Phone: 10-31-2023 Evaluation + Plan note Associated Problem(s): Sacroiliitis ([facility]) MRI scan shows spinal stenosis lumbar spine, encouraged to follow-up with pain management for possible injections and further evaluation and treatment. [facility] Work Phone: 10-31-2023 Evaluation + Plan note Associated Problem(s): Major depressive disorder, single episode, in partial remission ([facility]) Stable, no change. [facility] Work Phone: 10-31-2023 Miscellaneous Notes Associated Problem(s): Sacroiliitis ([facility]) MRI scan shows spinal stenosis lumbar spine, encouraged to follow-up with pain management for possible injections and further evaluation and treatment. Associated Problem(s): Major depressive disorder, single episode, in partial remission ([facility]) Stable, no change. Associated Problem(s): GERD (gastroesophageal reflux disease) Continue with PPI no issues with dysphagia. Associated Problem(s): Low testosterone in male Was not able to get injectable testosterone, try to represcribe again, levels are abnormally low. Patient also complaining of persistent fatigue. Associated Problem(s): Type II 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 (Multi) A1c testing gradually increasing, advised about diet and exercise. Associated Problem(s): Afib (Multi) Not aware of palpitations tolerating anticoagulation and medication follow-up with cardiology. Associated Problem(s): Peripheral arterial occlusive disease ([facility]) No issues with vascular claudication, struggling with neurogenic claudication from spinal stenosis. No issues with skin breakdown or open areas. Associated Problem(s): Mild CAD Currently asymptomatic. Associated Problem(s): Hypertension, essential, benign Blood pressure stable renal function stable, no change. Associated Problem(s): Hyperlipemia Continue with statin, labs stable. Associated Problem(s): Chronic diastolic congestive heart failure (Multi) Patient seems to be stable currently, continue with current medications and follow-up with cardiology. documented in this encounter [facility] Work Phone: 10-31-2023 Evaluation + Plan note Associated Problem(s): GERD (gastroesophageal reflux disease) Continue with PPI no issues with dysphagia. [facility] Work Phone: 10-31-2023 Evaluation + Plan note Associated Problem(s): Low testosterone in male Was not able to get injectable testosterone, try to represcribe again, levels are abnormally low. Patient also complaining of persistent fatigue. [facility] Work Phone: 10-31-2023 Evaluation + Plan note Associated Problem(s): Type II 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 (Multi) A1c testing gradually increasing, advised about diet and exercise. [facility] Work Phone: 10-31-2023 Evaluation + Plan note Associated Problem(s): Afib (Multi) Not aware of palpitations tolerating anticoagulation and medication follow-up with cardiology. [facility] Work Phone: 10-31-2023 Evaluation + Plan note Associated Problem(s): Peripheral arterial occlusive disease ([facility]) No issues with vascular claudication, struggling with neurogenic claudication from spinal stenosis. No issues with skin breakdown or open areas. [facility] Work Phone: 10-31-2023 Evaluation + Plan note Associated Problem(s): Mild CAD Currently asymptomatic. [facility] Work Phone: 10-31-2023 Evaluation + Plan note Associated Problem(s): Hypertension, essential, benign Blood pressure stable renal function stable, no change. [facility] Work Phone: 10-31-2023 Evaluation + Plan note Associated Problem(s): Hyperlipemia Continue with statin, labs stable. [facility] Work Phone: 10-31-2023 Evaluation + Plan note Associated Problem(s): Chronic diastolic congestive heart failure (Multi) Patient seems to be stable currently, continue with current medications and follow-up with cardiology. [facility] Work Phone: 10-31-2023 History of Present illness Narrative Subjective Reason for Visit: Rocio Sandoval is an 78 y.o. male here for a Medicare Wellness visit. Past Medical, Surgical, and Family History reviewed and updated in chart. Reviewed all medications by prescribing practitioner or clinical pharmacist (such as prescriptions, OTCs, herbal therapies and supplements) and documented in the medical record. HPI No low blood sugars since last OV, seen opthalmology in the past year, and no numbness or tingling in feet, skin normal. No headache, chest pain, shortness of breath, dizziness, lightheadedness, or edema Never started testosterone Follows with pain medicine for LBP, had MRI done that showed spinal stenosis in lumbar spine, taking gabapentin and APAP only for pain, to try injections, to see rheumatology, had injections in the past without help Having issues with pain in hip area Sees Cardiology Patient Care Team: Tye Anne MD as PCP - General (Family Medicine) Tye Anne MD as PCP - [employer] PCP Review of Systems Constitutional: Positive for fatigue. Negative for activity change, appetite change and unexpected weight change. HENT: Negative for ear pain, nosebleeds, rhinorrhea, sneezing and trouble swallowing. Respiratory: Negative for cough, shortness of breath and wheezing. Cardiovascular: Negative for chest pain, palpitations and leg swelling. Gastrointestinal: Negative for abdominal distention, abdominal pain, constipation, diarrhea, nausea and vomiting. Genitourinary: Negative for difficulty urinating. Musculoskeletal: Positive for back pain. Negative for arthralgias and gait problem. Skin: Negative for rash. Neurological: Negative for dizziness, light-headedness, numbness and headaches. Hematological: Negative for adenopathy. Psychiatric/Behavioral: Negative for behavioral problems, dysphoric mood and sleep disturbance. The patient is not nervous/anxious. All other systems reviewed and are negative. Objective Vitals: BP 120/70 Pulse 71 Ht 1.88 m (6' 2) Wt 102 kg (224 lb 6.4 oz) SpO2 96% BMI 28.81 kg/m Physical Exam Vitals and nursing note reviewed. Constitutional: General: He is not in acute distress. Appearance: Normal appearance. He is not toxic-appearing. HENT: Head: Normocephalic and atraumatic. Right Ear: Tympanic membrane, ear canal and external ear normal. Left Ear: Tympanic membrane, ear canal and external ear normal. Nose: Nose normal. Mouth/Throat: Mouth: Mucous membranes are moist. Pharynx: Oropharynx is clear. Eyes: Extraocular Movements: Extraocular movements intact. Conjunctiva/sclera: Conjunctivae normal. Pupils: Pupils are equal, round, and reactive to light. Cardiovascular: Rate and Rhythm: Normal rate and regular rhythm. Pulses: Normal pulses. Heart sounds: Normal heart sounds. Pulmonary: Effort: Pulmonary effort is normal. Breath sounds: Normal breath sounds. Abdominal: General: Abdomen is flat. Bowel sounds are normal. Palpations: Abdomen is soft. Musculoskeletal: Cervical back: Normal range of motion and neck supple. Skin: General: Skin is warm and dry. Capillary Refill: Capillary refill takes less than 2 seconds. Neurological: General: No focal deficit present. Mental Status: He is alert and oriented to person, place, and time. Mental status is at baseline. Psychiatric: Mood and Affect: Mood normal. Behavior: Behavior normal. Assessment/Plan Problem List Items Addressed This Visit BPH (benign prostatic hyperplasia) Relevant Medications tamsulosin (Flomax) 0.4 mg 24 hr capsule Other Relevant Orders Follow Up In Primary Care - Established Lumbosacral spondylosis Relevant Orders Follow Up In Primary Care - Established Chronic diastolic congestive heart failure (Multi) Current Assessment & Plan Patient seems to be stable currently, continue with current medications and follow-up with cardiology. Relevant Orders Follow Up In Primary Care - Established Chronic low back pain Relevant Orders Follow Up In Primary Care - Established Generalized osteoarthritis of multiple sites Relevant Orders Follow Up In Primary Care - Established GERD (gastroesophageal reflux disease) Current Assessment & Plan Continue with PPI no issues with dysphagia. Relevant Medications omeprazole (PriLOSEC) [address] capsule Other Relevant Orders Follow Up In Primary Care - Established Hyperlipemia Current Assessment & Plan Continue with statin, labs stable. Relevant Medications atorvastatin (Lipitor) 40 mg tablet Other Relevant Orders Follow Up In Primary Care - Established Hypertension, essential, benign Current Assessment & Plan Blood pressure stable renal function stable, no change. Relevant Orders Follow Up In Primary Care - Established Comprehensive Metabolic Panel Mild CAD Current Assessment & Plan Currently asymptomatic. 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 No issues with skin breakdown or open areas. Relevant Orders Follow Up In Primary Care - Established Sacroiliitis ([facility]) Current Assessment & Plan MRI scan shows spinal stenosis lumbar spine, encouraged to follow-up with pain management for possible injections and further evaluation and treatment. Relevant Orders Follow Up In Primary Care - Established Afib ([facility]) Current Assessment & Plan Not aware of palpitations tolerating anticoagulation and medication follow-up with cardiology. Relevant Medications rivaroxaban (Xarelto) 20 mg tablet Other Relevant Orders Follow Up In Primary Care - Established Type II 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 ([facility]) Current Assessment & Plan A1c testing gradually increasing, advised about diet and exercise. Relevant Orders Follow Up In Primary Care - Established Comprehensive Metabolic Panel Hemoglobin A1C Low testosterone in male Current Assessment & Plan Was not able to get injectable testosterone, try to represcribe again, levels are abnormally low. Patient also complaining of persistent fatigue. Relevant Medications testosterone cypionate (Depo-Testosterone) 100 mg/mL injection Other Relevant Orders Follow Up In Primary Care - Established CBC and Auto Differential Comprehensive Metabolic Panel Testosterone,Free and Total Major depressive disorder, single episode, in partial remission ([facility] [place]) Current Assessment & Plan Stable, no change. Relevant Orders Follow Up In Primary Care - Established Other Visit Diagnoses Routine general medical examination at health care facility - Primary Relevant Orders Follow Up In Primary Care - Established Low testosterone Relevant Orders Follow Up In Primary Care - Established Chronic rhinitis Relevant Medications fexofenadine (Sulaiman) 180 mg tablet Other Relevant Orders Follow Up In Primary Care - Established Patient was identified as a fall risk. Risk prevention instructions provided. documented in this encounter [facility] Work Phone: 10-31-2023 Instructions Tye Anne MD - 10/31/2023 9:20 AM EDT Consider shingles vaccine, call if issues with pain medicine office and injections, or if issues with testosterone. Ways to Help Prevent Falls at Home Quick Tips ? Ask for help if you need it. Most people want to help! ? Get up slowly after sitting or laying down ? Wear a medical alert device or keep cell phone in your pocket ? Use night lights, especially areas near a bathroom ? Keep the items you use often within reach on a small stool or end table ? Use an assistive device such as walker or cane, as directed by provider/physical therapy ? Use a non-slip mat and grab bars in your bathroom. Look for home health sections for best options Other Areas to Focus On ? Exercise and nutrition: Regular exercise or taking a falls prevention class are great ways improve strength and balance. Don t forget to stay hydrated and bring a snack! ? Medicine side effects: Some medicines can make you sleepy or dizzy, which could cause a fall. Ask your healthcare provider about the side effects your medicines could cause. Be sure to let them know if you take any vitamins or supplements as well. ? Tripping hazards: Remove items you could trip on, such as loose mats, rugs, cords, and clutter. Wear closed toe shoes with rubber soles. ? Health and wellness: Get regular checkups with your healthcare provider, plus routine vision and hearing screenings. Talk with your healthcare provider about: o Your medicines and the possible side effects - bring them in a bag if that is easier! o Problems with balance or feeling dizzy o Ways to promote bone health, such as Vitamin D and calcium supplements o Questions or concerns about falling *Ask your healthcare team if you have questions [facility] 2021 documented in this encounter [facility] Work Phone: 10-18-2023 History of Present illness Narrative Subjective Patient ID: Rocio Sandoval is a 78 y.o. male who presents for Back Pain (FUV MRI results today reports Bilat lower back pain R>L that radiates into rt hip. ) and Neck Pain (Also having pain in his rt side neck that radiates into bilat scapula down to his lower back ) Rates all of his pain 9/10 now and this is the worst, describes as an aching that gets very intense. He takes tylenol 3 times a day., gabapentin, he does light exercise this helps his pain a little. RACHEL score 42% Ludivina Duff RN 10/18/23 1:06 PM A lumbar MRI. He has lower back pain with right greater than left radiating leg pain. He rates it a 9/10. Worse with activity. Worse with standing, worse with being active, worse with patient is a 77-year-old male. He presents today for a follow-up after undergoing being upright and doing things he wants to do. He also has neck pain with right arm pain. This is somewhat better. Goes into her upper back and shoulders but at this time the lower back and legs are more bothersome. At this time, he is using the gabapentin 800 mg. Usually 3 times a day but sometimes 4. He never takes it more than that. He tried to cut back on the dose but it did not help. He has gone to the chiropractor numerous times. This somewhat helps. He is eager to see what the MRI shows and what his options are. Review of Systems Constitutional: Negative. HENT: Negative. Eyes: Negative. Respiratory: Negative. Cardiovascular: Negative. Gastrointestinal: Negative. Endocrine: Negative. Genitourinary: Negative. Musculoskeletal: Positive for arthralgias, back pain, gait problem and myalgias. Skin: Negative. Allergic/Immunologic: Negative. Neurological: Positive for weakness and numbness. Hematological: Negative. Psychiatric/Behavioral: Negative. Objective Physical Exam Vitals and nursing note reviewed. Constitutional: Appearance: Normal appearance. HENT: Head: Normocephalic and atraumatic. Right Ear: External ear normal. Left Ear: External ear normal. Nose: Nose normal. Mouth/Throat: Pharynx: Oropharynx is clear. Eyes: Conjunctiva/sclera: Conjunctivae normal. Cardiovascular: Rate and Rhythm: Normal rate and regular rhythm. Pulses: Normal pulses. Pulmonary: Effort: Pulmonary effort is normal. Musculoskeletal: General: Normal range of motion. Cervical back: Normal range of motion. Comments: 5/5 upper extremity strength other than Right deltoid 4+/5 5/5 lower extremity strength other than bilateral hip flexion 4+/5 Skin: General: Skin is warm and dry. Neurological: General: No focal deficit present. Mental Status: He is alert and oriented to person, place, and time. Mental status is at baseline. Psychiatric: Mood and Affect: Mood normal. Behavior: Behavior normal. Thought Content: Thought content normal. Judgment: Judgment normal. MR cervical spine wo IV contrast Status: Final result PACS Images Show images for MR cervical spine wo IV contrast Signed by Signed Time Phone Pager Vane Rodriguez MD 08/27/2023 14:07 [phone] [id number] Exam Information Status Exam Begun Exam Ended Final 08/27/2023 11:05 08/27/2023 11:45 Study Result Narrative & Impression Interpreted By: Vane Rodriguez, STUDY: MR CERVICAL SPINE WO IV CONTRAST; 08/27/2023 11:45 am INDICATION: Signs/Symptoms:neck and arm pain. COMPARISON: None. ACCESSION NUMBER(S): [id number] ORDERING CLINICIAN: REGGIE ARAGON TECHNIQUE: Sagittal T1, T2, STIR, axial T1 and axial T2 weighted images were acquired through the cervical spine. FINDINGS: Craniocervical junction is within normal limits. Cerebellar tonsils are above the foramen magnum. There is trace anterolisthesis of C4 on C5, C6 on C7 and C7 on T1. Alignment, vertebral body heights and marrow signal pattern are within normal limits. There is desiccated disc signal throughout the cervical spine with mild degenerative endplate changes and disc height loss at C5-C6 and C6-C7. The cervical cord is unremarkable. Prevertebral soft tissues are not thickened. There is a nodule within the right thyroid lobe measuring 1.3 cm. Evaluation by level: C1-C2: No spinal canal stenosis C2-C3: No spinal canal or neural foraminal stenosis C3-C4: Disc osteophyte complex, uncovertebral joint hypertrophy and facet arthrosis. Mild spinal canal stenosis. Moderate right and moderate to severe left neural foraminal stenosis. C4-C5: Disc osteophyte complex and uncovertebral joint hypertrophy and facet arthrosis. No spinal canal stenosis. Mild left and no right neural foraminal stenosis C5-C6: Disc osteophyte complex and uncovertebral joint hypertrophy and facet arthrosis. No spinal canal stenosis. Mild left and no right neural foraminal stenosis C6-C7: Right eccentric disc osteophyte complex and uncovertebral joint hypertrophy and facet arthrosis. Mild spinal canal and neural foraminal stenosis C7-T1: No spinal canal or neural foraminal stenosis. IMPRESSION: Multilevel degenerative disc disease and facet arthrosis with mild spinal canal stenosis. Varying degrees of neural foraminal narrowing most pronounced at C3-C4 with moderate right and moderate to severe left neural foraminal stenosis. MACRO: None Signed by: Vane Rodriguez 08/27/2023 2:07 PM Dictation workstation: [id number] MR lumbar spine wo IV contrast Status: Final result PACS Images Show images for MR lumbar spine wo IV contrast Signed by Signed Time Phone Pager Rocio Go MD 09/24/2023 13:33 [id number] Exam Information Status Exam Begun Exam Ended Final 09/24/2023 11:33 09/24/2023 12:02 Study Result Narrative & Impression Interpreted By: Rocio Go, STUDY: MR LUMBAR SPINE WO IV CONTRAST performed 09/24/2023 12:02 pm INDICATION: Signs/Symptoms:lower back and leg pain. COMPARISON: Lumbar spine radiographs dated 08/07/2023. MRI lumbar spine performed 03/31/2021. ACCESSION NUMBER(S): [id number] ORDERING CLINICIAN: REGGIE ARAGON TECHNIQUE: Multiplanar multisequence MR imaging of the lumbar spine performed without intravenous contrast. Sagittal T1, T2, STIR, axial T1 and T2 weighted images of the lumbar spine were acquired. FINDINGS: Segmentation: Partially formed S1-S2 disc. 5 non rib-bearing lumbar vertebral bodies are designated on this examination. Conus: The lower thoracic cord appears unremarkable. The conus terminates at the L2 vertebral body level. Cauda equina are unremarkable. Epidural fluid: None. Alignment: Mild rotatory levo scoliosis as evident on localizer imaging with apex at L2-L3. Lumbar alignment is otherwise maintained. Vertebral bodies: Minimal chronic anterior wedging of T12 and L1. Lumbar vertebral body heights are otherwise maintained. Marrow signal: Type 2 Modic endplate signal change posteriorly at L2-L3. No focal STIR hyperintensity/marrow edema. Intervertebral discs: Tiny Schmorl's node components at T11-T12. Moderate multilevel degenerative disc height loss. Multilevel disc desiccation. Probable vacuum disc components at L3-L4 and L4-L5. Degenerative change: T12-L1: Mild bilateral facet arthropathy with ligamentum flavum hypertrophy. Minimal disc bulge with tiny left subarticular disc osteophyte protrusion component. Left lateral recess narrowing with no additional spinal canal stenosis. No neural foraminal narrowing. L1-2: Mild facet arthropathy with ligamentum flavum hypertrophy. No spinal canal stenosis or neural foraminal narrowing. L2-3: There is suggestion of previous right hemilaminectomy. Bilateral facet arthropathy. Cxcr-tc-[id number] disc bulge with hypertrophic endplate spurring. Mild narrowing of the lateral recesses without spinal canal stenosis. Mild bilateral neural foraminal narrowing. L3-4: Possible remote right hemilaminectomy. Mild bilateral facet arthropathy. Mild disc bulge and endplate spurring. Narrowing of the lateral recesses without additional spinal canal stenosis. Mild bilateral neural foraminal narrowing. L4-5: Moderate facet arthropathy with ligamentum flavum hypertrophy. Previous right facet synovial cyst is no longer definitively visualized. Moderate disc bulge with hypertrophic endplate spurring. Moderate trefoil narrowing of the thecal sac and lateral recesses. Moderate pmaq-jgsijjf-damc-right neural foraminal narrowing with facet arthropathy contacting the exiting left L4 nerve root. L5-S1: Mild facet arthropathy. Mild disc bulge with trace posterior fissuring. Similar left lateral recess narrowing. No additional spinal canal stenosis. No substantial neural foraminal narrowing. Soft tissues: Incomplete visualization of a large, exophytic, cystic appearing lesion arising from the left kidney. Fatty atrophy of the posterior paraspinal musculature. IMPRESSION: Similar to minimally worsened lumbar degenerative change. At L4-L5 the previously identified right facet synovial cyst is no longer clearly delineated. There is moderate spinal canal stenosis/lateral recess narrowing with moderate [id number]-right neural foraminal narrowing with facet osteophyte contacting/possibly impinging the exiting left L4 nerve root. 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 We reviewed his lumbar MRI. We also once again reviewed his cervical MRI. It should be noted that he has trialed and failed all reasonable conservative treatments. Unfortunate, at this time despite conservative treatments he has not gotten the relief he is looking for. He is having lower back pain with bilateral leg pain greater than neck pain with shoulder pain. Based on his MRI findings and his pain pattern as well as failure to improve with conservative treatments I recommended to patient bilateral L4-5 transforaminal epidural steroid injection under fluoroscopy for both diagnostic and therapeutic purposes. 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 Procedure was discussed. Risk and benefits were discussed. Patient is agreeable. He will follow-up 2 weeks after the injection for reevaluation. Call clinic sooner if necessary. He will continue on gabapentin. Medication hold for the procedure were also discussed including Xarelto for 3 days and vitamins for 1 week. documented in this encounter [facility] Work Phone: 09-24-2023 Nurse Note Pt in the MRI suite for MRI. Pacer clinic put pt in MRI safe mode. Pt monitored during entire MRI. Uneventful MRI. Pacer clinic put the pt back in original mode. Pt edin well. [facility] 09-24-2023 Nurse Note Pt in the MRI suite for MRI. Pacer clinic put pt in MRI safe mode. Pt monitored during entire MRI. Uneventful MRI. Pacer clinic put the pt back in original mode. Pt edin well. documented in this encounter [facility] Work Phone: 09-11-2023 Evaluation + Plan note Associated Problem(s): ALISHA on CPAP Will do machine download from patient's [employer] to assess whether or not his sleep apnea has been adequately treated. [facility] Work Phone: 09-11-2023 Evaluation + Plan note Associated Problem(s): Low testosterone in male Patient did not receive testosterone from pharmacy, will retry to prescribe. [facility] Work Phone: 09-11-2023 Miscellaneous Notes Associated Problem(s): ALISHA on CPAP Will do machine download from patient's [employer] to assess whether or not his sleep apnea has been adequately treated. Associated Problem(s): Low testosterone in male Patient did not receive testosterone from pharmacy, will retry to prescribe. Associated Problem(s): Type II 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 (CMS/HCC) Continue with current medication keep office visit as planned. Will try prescription for continuous glucose meter per patient's request. Associated Problem(s): Chronic diastolic congestive heart failure (CMS/HCC) Patient's insurance company requested that he consider discontinuing his SGL 2, given his diabetes and heart issues, recommend continuing with this medication if at all possible. documented in this encounter [facility] Work Phone: 09-11-2023 Evaluation + Plan note Associated Problem(s): Type II 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 (CMS/HCC) Continue with current medication keep office visit as planned. Will try prescription for continuous glucose meter per patient's request. [facility] Work Phone: 09-11-2023 Evaluation + Plan note Associated Problem(s): Chronic diastolic congestive heart failure (CMS/HCC) Patient's insurance company requested that he consider discontinuing his SGL 2, given his diabetes and heart issues, recommend continuing with this medication if at all possible. [facility] Work Phone: 09-11-2023 History of Present illness Narrative Subjective Patient ID: Rocio Sandoval is a 78 y.o. male who presents for ER F/U Rt Elbow Wound. HPI Was in ER 3/7 for skin tear to right elbow, Rx Bactroban ointment, patient applied over ster-strips and strips came off Uses CPAP at home, complains of fatigue to the point of falling asleep in chair Was never able to get testosterone to start, is interested in doing injectable testosterone. Patient also has continuous contact with nurse from insurance company they recommended he get a continuous glucose meter. Patient also was asked to see if he could stop his Jardiance. Review of Systems Constitutional: Positive for fatigue. Negative for activity change and appetite change. Respiratory: Negative for cough, chest tightness and shortness of breath. Cardiovascular: Negative for chest pain, palpitations and leg swelling. Gastrointestinal: Negative for abdominal pain, constipation, diarrhea, nausea and vomiting. Skin: Positive for wound. Objective BP 140/70 Pulse 62 Ht 1.88 m (6' 2) Wt 103 kg (226 lb 1.6 oz) SpO2 98% BMI 29.03 kg/m Physical Exam Vitals and nursing note reviewed. Constitutional: Appearance: Normal appearance. HENT: Head: Normocephalic and atraumatic. Right Ear: Tympanic membrane, ear canal and external ear normal. Left Ear: Tympanic membrane, ear canal and external ear normal. Nose: Nose normal. Mouth/Throat: Mouth: Mucous membranes are moist. Pharynx: Oropharynx is clear. Cardiovascular: Rate and Rhythm: Normal rate and regular rhythm. Pulses: Normal pulses. Heart sounds: Normal heart sounds. Pulmonary: Effort: Pulmonary effort is normal. Breath sounds: Normal breath sounds. Musculoskeletal: Cervical back: Normal range of motion and neck supple. Skin: Comments: Healing skin tear right posterior elbow. No erythema, nontender minimal drainage, positive eschar. Redressed today in the office, advised about wound care. Neurological: Mental Status: He is alert. Psychiatric: Mood and Affect: Mood normal. Behavior: Behavior normal. Assessment/Plan Problem List Items Addressed This Visit ICD-10-CM Chronic diastolic congestive heart failure (CMS/[facility]) I50.32 Patient's insurance company requested that he consider discontinuing his SGL 2, given his diabetes and heart issues, recommend continuing with this medication if at all possible. Relevant Medications empagliflozin (Jardiance) 25 mg ALISHA on CPAP G47.33 Will do machine download from patient's [employer] company to assess whether or not his sleep apnea has been adequately treated. Type II 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 (CMS/[facility]) E11.9 Continue with current medication keep office visit as planned. Will try prescription for continuous glucose meter per patient's request. Relevant Medications empagliflozin (Jardiance) 25 mg FreeStyle Vince 14 Day [place] [facility] [place]Style [place] 14 Day Sensor kit Low testosterone in male R79.89 Patient did not receive testosterone from pharmacy, will retry to prescribe. Relevant Medications testosterone cypionate (Depo-Testosterone) 100 mg/mL injection Other Visit Diagnoses Codes Skin tear of right elbow without 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, subsequent encounter - Primary S51.011D Advised about wound care follow-up as needed. documented in this encounter [facility] Work Phone: 09-04-2023 History of Present illness Narrative Subjective Patient ID: Rocio Sandoval is a 78 y.o. male who presents for Pain (FUV for R low back pain; pain score 7/10 today. Patient states pain is described as an ache. Walking increases the pain. Tylenol will help decrease the pain. MRI done at 08-27-23. Refill for Gabapentin needed. ). ETOH screen negative. RACHEL = 33/100. Ruth Butts RN 09/04/23 8:14 AM Patient is a 77-year-old male. He presents today for a follow-up after undergoing x-rays and a cervical MRI. At his last appointment his neck pain with right arm pain was more bothersome than anything else. He had x-rays and an MRI but he states that from his last appointment to now things have changed gears in his lower back, but an intermittent leg pain is more bothersome at this time. He also had some left leg weakness while in the room while trying to get up for physical examination At this time, he is using the gabapentin 800 mg. Usually 3 times a day but sometimes 4. He never takes it more than that. He tried to cut back on the dose but it did not help. He has gone to the chiropractor numerous times. This somewhat helps. At this time, he is once again having the neck pain and intermittent right shoulder pain and intermittent arm pain as well as lower back pain with right buttock pain and intermittent leg pain and he states that the lower back, buttock and leg pain is more bothersome than the other pains. 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 He has been doing a physical therapy home exercise program once again with improvement but nothing long-term. Review of Systems Constitutional: Negative. HENT: Negative. Eyes: Negative. Respiratory: Negative. Cardiovascular: Negative. Gastrointestinal: Negative. Endocrine: Negative. Genitourinary: Negative. Musculoskeletal: Positive for arthralgias, back pain, gait problem, myalgias and neck pain. Skin: Negative. Allergic/Immunologic: Negative. Hematological: Negative. Psychiatric/Behavioral: Negative. Objective Physical Exam Vitals and nursing note reviewed. Constitutional: Appearance: Normal appearance. HENT: Head: Normocephalic and atraumatic. Right Ear: External ear normal. Left Ear: External ear normal. Nose: Nose normal. Mouth/Throat: Pharynx: Oropharynx is clear. Eyes: Conjunctiva/sclera: Conjunctivae normal. Cardiovascular: Rate and Rhythm: Normal rate and regular rhythm. Pulses: Normal pulses. Pulmonary: Effort: Pulmonary effort is normal. Musculoskeletal: General: Normal range of motion. Cervical back: Normal range of motion. Comments: Normal range of motion and strength of the upper and lower extremities other than some pain with internal and external rotation of the right shoulder Some pain with turning his head to the right side Right deltoid 4+/5 5/5 lower extremity strength Skin: General: Skin is warm and dry. Neurological: General: No focal deficit present. Mental Status: He is alert and oriented to person, place, and time. Mental status is at baseline. Psychiatric: Mood and Affect: Mood normal. Behavior: Behavior normal. Thought Content: Thought content normal. Judgment: Judgment normal. MR cervical spine wo IV contrast Status: Final result PACS Images Show images for MR cervical spine wo IV contrast Signed by Signed Time Phone Pager Vane Rodriguez MD 08/27/2023 14:07 [id number] Exam Information Status Exam Begun Exam Ended Final 08/27/2023 11:05 08/27/2023 11:45 Study Result Narrative & Impression Interpreted By: Vane Rodriguez, STUDY: MR CERVICAL SPINE WO IV CONTRAST; 08/27/2023 11:45 am INDICATION: Signs/Symptoms:neck and arm pain. COMPARISON: None. ACCESSION NUMBER(S): [id number] ORDERING CLINICIAN: REGGIE ARAGON TECHNIQUE: Sagittal T1, T2, STIR, axial T1 and axial T2 weighted images were acquired through the cervical spine. FINDINGS: Craniocervical junction is within normal limits. Cerebellar tonsils are above the foramen magnum. There is trace anterolisthesis of C4 on C5, C6 on C7 and C7 on T1. Alignment, vertebral body heights and marrow signal pattern are within normal limits. There is desiccated disc signal throughout the cervical spine with mild degenerative endplate changes and disc height loss at C5-C6 and C6-C7. The cervical cord is unremarkable. Prevertebral soft tissues are not thickened. There is a nodule within the right thyroid lobe measuring 1.3 cm. Evaluation by level: C1-C2: No spinal canal stenosis C2-C3: No spinal canal or neural foraminal stenosis C3-C4: Disc osteophyte complex, uncovertebral joint hypertrophy and facet arthrosis. Mild spinal canal stenosis. Moderate right and moderate to severe left neural foraminal stenosis. C4-C5: Disc osteophyte complex and uncovertebral joint hypertrophy and facet arthrosis. No spinal canal stenosis. Mild left and no right neural foraminal stenosis C5-C6: Disc osteophyte complex and uncovertebral joint hypertrophy and facet arthrosis. No spinal canal stenosis. Mild left and no right neural foraminal stenosis C6-C7: Right eccentric disc osteophyte complex and uncovertebral joint hypertrophy and facet arthrosis. Mild spinal canal and neural foraminal stenosis C7-T1: No spinal canal or neural foraminal stenosis. IMPRESSION: Multilevel degenerative disc disease and facet arthrosis with mild spinal canal stenosis. Varying degrees of neural foraminal narrowing most pronounced at C3-C4 with moderate right and moderate to severe left neural foraminal stenosis. MACRO: None Signed by: Vane Rodriguez 08/27/2023 2:07 PM Dictation workstation: [id number] XR cervical spine 2-3 views Status: Final result PACS Images Show images for XR cervical spine 2-3 views Signed by Signed Time Phone Pager Wei Quezada MD 08/08/2023 10:01 [id number] Exam Information Status Exam Begun Exam Ended Final 08/07/2023 09:41 08/07/2023 10:16 Study Result Narrative & Impression Interpreted By: Wei Quezada, STUDY: XR CERVICAL SPINE 2-3 VIEWS; ; 08/07/2023 10:16 am INDICATION: Signs/Symptoms:neck and arm pain. COMPARISON: March 07, 2022 thoracic spine radiographs. September 13, 2018 skull radiographs. July 21, [address] and chest radiograph and March 16, 2023 chest radiograph. ACCESSION NUMBER(S): [id number] ORDERING CLINICIAN: REGGIE ARAGON FINDINGS: Frontal, lateral and odontoid views are submitted. There is trace C3 retrolisthesis and trace C7 anterolisthesis. Moderate multilevel degenerative changes. No fracture, suspicious osseous lesion or unusual paravertebral soft tissue abnormalities. There is a left transvenous cardiac device. Stable reticular fibrotic changes involving the right upper chest laterally. IMPRESSION: Mild malalignment and moderate multilevel degenerative changes cervical spine. MACRO: None Signed by: Wei Quezada 08/08/2023 10:01 AM Dictation workstation: [id number] XR shoulder right 2+ views Status: Final result PACS Images Show images for XR shoulder right 2+ views Signed by Signed Time Phone Pager Wei Quezada MD 08/08/2023 10:07 [id number] Exam Information Status Exam Begun Exam Ended Final 08/07/2023 09:41 08/07/2023 10:15 Study Result Narrative & Impression Interpreted By: Wei Quezada, STUDY: XR SHOULDER RIGHT 2+ VIEWS; ; 08/07/2023 10:15 am INDICATION: Signs/Symptoms:right shoulder pain. COMPARISON: July 25, 2022 right shoulder radiographs ACCESSION NUMBER(S): [id number] ORDERING CLINICIAN: REGGIE ARAGON FINDINGS: Five views are submitted. Stable degenerative changes acromioclavicular joint and glenohumeral joint without fracture or suspicious osseous lesion. Stable calcification superior margin of the acromioclavicular joint. Stable reticular fibrotic changes visualized portion of the lungs. IMPRESSION: Stable radiographic appearance of the right shoulder. MACRO: None Signed by: Wei Quezada 08/08/2023 10:07 AM Dictation workstation: [id number] XR lumbar spine 2-3 views Status: Final result PACS Images Show images for XR lumbar spine 2-3 views Signed by Signed Time Phone Pager Wei Quezada MD 08/08/2023 10:05 [id number] Exam Information Status Exam Begun Exam Ended Final 08/07/2023 09:42 08/07/2023 10:15 Study Result Narrative & Impression Interpreted By: Wei Quezada, STUDY: XR LUMBAR SPINE 2-3 VIEWS; ; 08/07/2023 10:15 am INDICATION: Signs/Symptoms:lower back pain. COMPARISON: March 27, 2022 radiographs. January 26, 2022 CT abdomen and pelvis ACCESSION NUMBER(S): [id number] ORDERING CLINICIAN: REGGIE ARAGON FINDINGS: Three views are submitted. Stable alignment. No detected fracture, or suspicious osseous lesion. Moderate to advanced multilevel spondylosis and degenerative disc changes. Increase wedge-shaped sclerosis anterior superior L3 vertebral body without well-delineated significant loss of disc height endplate region sclerosis superior L3 and inferior L1 favoring progressive degenerative change. There are scattered arterial vascular calcifications. IMPRESSION: Probable progressive degenerative changes lumbar spine. Scattered arterial vascular calcifications. MACRO: None Signed by: Wei Quezada 08/08/2023 10:05 AM Dictation workstation: [id number] XR pelvis 1-2 views Status: Final result PACS Images Show images for XR pelvis 1-2 views Signed by Signed Time Phone Pager Wei Quezada MD 08/08/2023 10:09 [id number] Exam Information Status Exam Begun Exam Ended Final 08/07/2023 09:42 08/07/2023 10:14 Study Result Narrative & Impression Interpreted By: Wei Quezada, STUDY: XR PELVIS 1-2 VIEWS; ; 08/07/2023 10:14 am INDICATION: Signs/Symptoms:left groin pain. COMPARISON: January 27, 2020 CT abdomen and pelvis ACCESSION NUMBER(S): [id number] ORDERING CLINICIAN: REGGIE ARAGON FINDINGS: Single view demonstrates stable mild hip region degenerative changes. No fracture, suspicious osseous lesion or acute unusual paravertebral soft tissue abnormality. There are scattered arterial vascular calcifications. IMPRESSION: No acute detected abnormality. MACRO: None Signed by: Wei Quezada 08/08/2023 10:09 AM Dictation workstation: [id number] Assessment/Plan Diagnoses and all orders for this visit: Lumbar radiculopathy - MR lumbar spine wo IV contrast; Future 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 stenosis - MR lumbar spine wo IV contrast; Future - gabapentin (Neurontin) 800 mg tablet; Take 1 tablet (800 mg) by mouth 4 times a day. Cervical spondylosis Cervical radiculitis - MR lumbar spine wo IV contrast; Future Sacroiliitis (CMS/HCC) - gabapentin (Neurontin) 800 mg tablet; Take 1 tablet (800 mg) by mouth 4 times a day. Generalized osteoarthritis of multiple sites - gabapentin (Neurontin) 800 mg tablet; Take 1 tablet (800 mg) by mouth 4 times a day. Chronic bilateral low back pain with bilateral sciatica - gabapentin (Neurontin) 800 mg tablet; Take 1 tablet (800 mg) by mouth 4 times a day. Osteoarthritis of spine with radiculopathy, lumbosacral region - gabapentin (Neurontin) 800 mg tablet; Take 1 tablet (800 mg) by mouth 4 times a day. Patient is a 77-year-old male with the above-mentioned complaints. At this time though he states that the neck and right shoulder and arm pain has gotten better. He has been using the gabapentin and he has been using Tylenol. This does help some of his discomfort. Unfortunate, he is noticing more and more back and buttock and intermittent leg pain. In fact, while in the exam room he had left leg weakness with standing. We reviewed his x-rays. 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 He has done a physical therapy home exercise program once again with some relief but not quite enough. Tylenol gives some improvement. At this time, we reviewed the x-rays and based on his x-ray findings and his pain pattern I would recommend a lumbar MRI for possible injection options versus surgical consultation depend on the results. Patient is agreeable. Follow-up after. In the meantime we will continue on the Tylenol as well as gabapentin. OARRS was reviewed. Follow-up after the MRI for reevaluation and discussion of options. documented in this encounter [facility] Work Phone: 08-27-2023 Nurse Note Pt in the MRI suite for cervical spine MRI. Pacer clinic put pt in MRI safe mode VOO90. Pt monitored during entire MRI. Uneventful MRI. Pacer clinic put the pt back in original mode. Pt edin well. Vitals during exam HR 90, SPO2 96% on room air. [facility] Work Phone: 08-27-2023 Nurse Note Pt in the MRI suite for cervical spine MRI. Pacer clinic put pt in MRI safe mode VOO90. Pt monitored during entire MRI. Uneventful MRI. Pacer clinic put the pt back in original mode. Pt edin well. Vitals during exam HR 90, SPO2 96% on room air. documented in this encounter [facility] Work Phone: 2023 History of Present illness Narrative Nail care, left great toe pain Patient is a pleasant 78 year-old male who comes in today for diabetic nail care. His diabetes is managed by primary care including Dr. Kin Anne. Hemoglobin A1c is 7.5% with some tingling burning and loss of sensation. Physical Vascular: DP pulses are palpable 2 out of 4. PT pulses are nonpalpable bilaterally. CFT is fair with mild edema. Compression socks are helping. Feet are warm to cool proximal to distal. Hair growth absent to the lower extremity and skin is shiny atrophic dysvascular. Nails one left and one right are elongated thickened mycotic crumbling and dystrophic. Nails left foot 2345 and right foot 2345 are elongated and thickened and mycotic. Neuro: Sharp dull is blunted Babinski's is fair. Musculoskeletal: Muscle strength is 5/5 with fair tone, can easily wiggle toes without any clicking or catching. Left great toe is painful with compression of the first MPJ though the IPJ is full and pain-free. Otherwise can easily wiggle toes without any clicking or catching Assessment and plan: Patient is a pleasant 78-year-old male, diabetes with peripheral arterial disease, onychomycosis to two nails and onychodystrophy to eight nails. -He does qualify for nail care given his peripheral arterial disease and risk. Procedure: Nails left foot one 2345 bilaterally were sharply debrided and debulk in height and length with a sharp pair of nail nippers consistent with a q8 modifier. Follow-up in 3 months for foot nail care. documented in this encounter [facility] 08-08-2023 Note Probable progressive degenerative changes lumbar spine. Scattered arterial vascular calcifications. MACRO: None Signed by: Wei Quezada 08/08/2023 10:05 AM Dictation workstation: [id number] [facility] 08-07-2023 History of Present illness Narrative Subjective Patient ID: Rocio Sandoval is a 77 y.o. male who presents for Back Pain (Patient complains of right lower back pain and right hip pain. He denied radiation. He denied numbness and tingling. Patient rates his pain a 7/10. ) and Neck Pain (Patient complains of right neck pain radiating into his right shoulder. He rates his pain a 7/10. He states he was at the chiropractor yesterday and it helped a little.). Patient states the GPN increase was helpful. He denied any side effects. Patient denied falls. Depression screen completed, negative. Smoking screen completed, negative. RACHEL score 40. Zuly Blevins RN 08/07/23 8:57 AM Patient is a 77-year-old male. He presents today for 3-month medication management follow-up. At this time, he is using the gabapentin 800 mg. Usually 3 times a day but sometimes 4. He never takes it more than that At this time, he is noting an increase of his neck pain with right shoulder pain and intermittent difficulty with swallowing. He has gone to the chiropractor numerous times. This somewhat helps. He is also having right lower back pain and intermittent left groin pain. He states that the increase the gabapentin was helpful and without side effect but he is still having these intermittent aches and pains in the above-mentioned areas that he rates a 7/10. He states that sometimes 1 is worse than the other but they are always present. He had a history of right shoulder injection with improvement. He is not sure if he wants to have any more injections but does feel that maybe some new imaging is necessary. He has difficulty with overhead activity and difficulty turning his head a certain way due to the neck and shoulder pain. He also has intermittent issues getting in and out of the car and walking around his lower back and intermittent groin pain. Review of Systems Constitutional: Positive for activity change. HENT: Negative. Eyes: Negative. Respiratory: Negative. Cardiovascular: Negative. Gastrointestinal: Negative. Endocrine: Negative. Genitourinary: Negative. Musculoskeletal: Positive for arthralgias, back pain, gait problem, neck pain and neck stiffness. Skin: Negative. Allergic/Immunologic: Negative. Neurological: Positive for weakness and numbness. Hematological: Negative. Psychiatric/Behavioral: Negative. Objective Physical Exam Vitals and nursing note reviewed. Constitutional: Appearance: Normal appearance. HENT: Head: Normocephalic and atraumatic. Left Ear: External ear normal. Nose: Nose normal. Mouth/Throat: Pharynx: Oropharynx is clear. Eyes: Pupils: Pupils are equal, round, and reactive to light. Cardiovascular: Rate and Rhythm: Normal rate and regular rhythm. Pulses: Normal pulses. Pulmonary: Effort: Pulmonary effort is normal. Musculoskeletal: General: Normal range of motion. Cervical back: Normal range of motion. Comments: Normal range of motion and strength of the upper and lower extremities other than some pain with internal and external rotation of the right shoulder Some difficulty with overhead activity Some pain with turning his head to the right side Right deltoid 4+/5 Skin: General: Skin is warm and dry. Neurological: General: No focal deficit present. Mental Status: He is alert and oriented to person, place, and time. Mental status is at baseline. Psychiatric: Mood and Affect: Mood normal. Behavior: Behavior normal. Thought Content: Thought content normal. Judgment: Judgment normal. Assessment/Plan Diagnoses and all orders for this visit: Cervical radiculitis - XR cervical spine 2-3 views; Future - MR cervical spine wo IV contrast; Future Chronic right shoulder pain - XR shoulder right 2+ views; Future Arthritis of right shoulder region - XR shoulder right 2+ views; Future Chronic right-sided low back pain without sciatica - XR lumbar spine 2-3 views; Future Bilateral hip pain - XR pelvis 1-2 views; Future Generalized osteoarthritis of multiple sites - gabapentin (Neurontin) 800 mg tablet; Take 1 tablet (800 mg) by mouth 4 times a day. Chronic bilateral low back pain with bilateral sciatica - gabapentin (Neurontin) 800 mg tablet; Take 1 tablet (800 mg) by mouth 4 times a day. 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 stenosis - gabapentin (Neurontin) 800 mg tablet; Take 1 tablet (800 mg) by mouth 4 times a day. Sacroiliitis (CMS/HCC) - gabapentin (Neurontin) 800 mg tablet; Take 1 tablet (800 mg) by mouth 4 times a day. Osteoarthritis of spine with radiculopathy, lumbosacral region - gabapentin (Neurontin) 800 mg tablet; Take 1 tablet (800 mg) by mouth 4 times a day. Patient is a 77-year-old male with the above-mentioned complaints. At this time he has neck pain with right shoulder pain and right arm pain as well as lower back pain mainly on the right side with left groin pain. Upon discussing all these pains and discomforts he states that some days 1 is worse than the other but they are always present. He rates the discomfort as a 7/10. He has undergone therapy in the past without improvement. He continues to do home exercises unfortunate, without improvement. He has gone to the chiropractor with certain things that get better but unfortunate, nothing that gives him any long-term relief. He has all of these pains and complaints that affect his ability to get comfortable. It affects his ability to do things out the day. It affects his quality of life. We discussed his gabapentin. He is using 100 mg usually 3 times a day but sometimes 4. Never more than that. OARRS was reviewed. Refill sent to the pharmacy. At this time, due to the above-mentioned pains and complaints I recommended a cervical x-ray, right shoulder x-ray, lumbar x-ray, pelvis x-ray, and cervical MRI. Patient will follow-up after the above-mentioned imaging for reevaluation and discussion of options. documented in this encounter [facility] Work Phone: 07-26-2023 Evaluation + Plan note Associated Problem(s): Fatigue Laboratory testing okay, prior testosterone levels were abnormally low, dizziness has improved with physical therapy and adjustment of medication, will plan to check it regular office visit again. [facility] Work Phone: 07-26-2023 Evaluation + Plan note Associated Problem(s): Low testosterone in male Patient complaining of persistent fatigue, testosterone levels are abnormally low, was unable to afford testosterone patch and gel, will investigate testosterone injections for the patient. [facility] Work Phone: 07-26-2023 Miscellaneous Notes Associated Problem(s): Fatigue Laboratory testing okay, prior testosterone levels were abnormally low, dizziness has improved with physical therapy and adjustment of medication, will plan to check it regular office visit again. Associated Problem(s): Low testosterone in male Patient complaining of persistent fatigue, testosterone levels are abnormally low, was unable to afford testosterone patch and gel, will investigate testosterone injections for the patient. documented in this encounter [facility] Work Phone: 07-26-2023 History of Present illness Narrative Subjective Patient ID: Rocio Sandoval is a 77 y.o. male who presents for 1 MO F/U. HPI Has been doing PT at [facility] some better, no falls Still fatigued and tired all the time Review of Systems Constitutional: Positive for fatigue. Negative for activity change and appetite change. Respiratory: Negative for cough, chest tightness and shortness of breath. Cardiovascular: Negative for chest pain, palpitations and leg swelling. Gastrointestinal: Negative for abdominal pain, constipation, diarrhea, nausea and vomiting. Neurological: Negative for dizziness, light-headedness and headaches. Psychiatric/Behavioral: Negative for decreased concentration, dysphoric mood and sleep disturbance. The patient is not nervous/anxious. Objective BP 112/60 Pulse 71 Ht 1.88 m (6' 2) Wt 100 kg (221 lb 3.2 oz) SpO2 97% BMI 28.40 kg/m Physical Exam Vitals and nursing note reviewed. Constitutional: Appearance: Normal appearance. HENT: Head: Normocephalic and atraumatic. Right Ear: Tympanic membrane, ear canal and external ear normal. Left Ear: Tympanic membrane, ear canal and external ear normal. Nose: Nose normal. Mouth/Throat: Mouth: Mucous membranes are moist. Pharynx: Oropharynx is clear. Cardiovascular: Rate and Rhythm: Normal rate and regular rhythm. Pulses: Normal pulses. Heart sounds: Normal heart sounds. Pulmonary: Effort: Pulmonary effort is normal. Breath sounds: Normal breath sounds. Musculoskeletal: Cervical back: Normal range of motion and neck supple. Neurological: Mental Status: He is alert. Psychiatric: Mood and Affect: Mood normal. Behavior: Behavior normal. Assessment/Plan Problem List Items Addressed This Visit ICD-10-CM Fatigue R53.83 Laboratory testing okay, prior testosterone levels were abnormally low, dizziness has improved with physical therapy and adjustment of medication, will plan to check it regular office visit again. Hypertension, essential, benign - Primary I10 Type II 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 (CMS/HCC) E11.9 Relevant Medications metFORMIN XR (Glucophage-XR) 750 mg 24 hr tablet Low testosterone in male R79.89 Patient complaining of persistent fatigue, testosterone levels are abnormally low, was unable to afford testosterone patch and gel, will investigate testosterone injections for the patient. Other Visit Diagnoses Codes Dizziness R42 Some better. documented in this encounter [facility] Work Phone: 07-24-2023 History of Present illness Narrative [facility] OUTPATIENT REHABILITATION DAILY TREATMENT NOTE Today's Date 07/24/2023 Patient Name: Rocio Sandoval Date of : 1945 Current Visit #: 7 Authorized Visits: 199 Case Name: Dizziness, chronic fatigue History: Pre-Treatment Pain Scale: 0 Symptoms: stabilized Functional Diagnosis: 1. Dizziness Clinical Information: Subjective: patient reports he is still gets dizziness sometimes. He is going to see his PCP on and he would like to be on hold until he sees him. Objective Hip Right Hip Muscle Strength: Flexion: 4+ Extension: 4+ Abduction: 4 Adduction: 4 Left Hip Muscle Strength: Flexion: 4+ Extension: 4+ Abduction: 4 Adduction: 4 Knee Right Knee Muscle Strength: Flexion: 3+ Extension: 3+ Left Knee Muscle Strength Flexion: 3+ Extension: 3+ Ankle/Foot Right Ankle/Foot Muscle Strength: DorsiFlexion: 5 Plantar Flexion: 4+ Left Ankle/Foot Muscle Strength: DorsiFlexion: 5 Plantar Flexion: 4+ Gone through goals and concerns for discharge today. Treatments: Physical Therapy Exercise Log - 07/24/23922 OTHER Precautions/Contraindications check BP, pacemaker Notes LE endurance and static and dynamic balance Vitals Visit 5: 9:24 - 10:01 Therapeutic Exercise (89112) Intervention Nustep - x5 min L4 Parameters Sink Ex's (abd, Ext, march, Heel/toe raises, HS curl) x 20 each NT Intervention Seated Ex's (heel/toe raise, march, LAQ, abd) 10 1.5# ankle weight NT Parameters 6 mins walk test 390' NT Parameters Access Code: [email or web address] URL: [email or web address] Date: 06/21/2023 Prepared by: Katarzyna Adams Exercises - Standing Hip Abduction with Unilateral Counter Support - 1 x daily - 1-3 sets - 10 reps - Standing Hip Extension with Unilateral Counter Support - 1 x daily - 1-3 sets - 10 reps - Standing March with Unilateral Counter Support - 1 x daily - 1-3 sets - 10 reps - Heel Toe Raises with Unilateral Counter Support - 1 x daily - 1-3 sets - 10 reps - Standing Knee Flexion with Counter Support - 1 x daily - 1-3 sets - 10 reps - Sit to Stand with Counter Support - 1 x daily - 1 sets - 10 reps - Seated Heel Toe Raises - 1 x daily - 7 x weekly - 3 sets - 10 reps - Seated Hip Flexion (Mirrored) - 1 x daily - 7 x weekly - 3 sets - 10 reps - Seated Long Arc Quad (Mirrored) - 1 x daily - 7 x weekly - 3 sets - 10 reps - Seated Hip Abduction - 1 x daily - 7 x weekly - 3 sets - 10 reps - Seated Hip Adduction Isometrics with Ball or Pillow - 1 x daily - 7 x weekly - 3 sets - 10 reps Neuro Re-Ed (24577) Intervention NBOS EC 30 Parameters NBOS EO on Airex 30, EC 30 Intervention Stepping on and off Airex 10 NT Parameters step up on 6 step 10 NT Intervention Lat ambulation - x5 //bars NT PT Treatment Times Therex Total Time 30 Direct Treatment Time 30 Total Treatment Time 37 Goals: Physical Therapy Ortho Goals: Patient will safely, correctly and independently demonstrate the ability to perform a progressive HEP to achieve maximal rehabilitation potential and prevent this condition from recurring. 2 weeks 07/24/2023 partial compliance Patient will improve strength of LE 5/5 from 5/5. 6 weeks 07/24/2023 4/4+/5 strength in LE. Patient will improve functional strength of LE to increase reps of sit to stand 3 points from 3.5 without UE assist. 6 weeks 07/24/2023 4.5 with UE assist on thigh Patient will demonstarte improved PÉREZ score to at least 5 points higher from 36/56 in order to indicate LOW fall risk in 6 weeks. 07/24/2023 43/56, 7 points improvement. Goal met Patient will improve FOTO score to at least 58 (predicted) from 52 to show MDC/MCII and expected functional outcome. 6 weeks 07/24/2023 56 progress Patient Education: Quality of movement, HEP Adherence, and Diagnosis and recovery specific education with patient verbalized understanding. Post-Treatment Pain Scale: 0 Assessment: Patient had an expected response to treatment. Skilled Intervention demonstrated by modifications of treatment per exercise log including assessment of patient's response and safety interventions per exercise log. Progress towards goals as expected. Plan for Next Visit: Hold til he sees PCP and will be back if PCP recommends to continue. If patient does not call or schedule further appointment, this will be consider as a discharge. Katarzyna Adams PT STATE LICENSE, [id number] documented in this encounter [facility] 07-19-2023 History of Present illness Narrative [facility] OUTPATIENT REHABILITATION DAILY TREATMENT NOTE Today's Date 07/19/2023 Patient Name: Rocio Sandoval Date of : 1945 Current Visit #: 6 Authorized Visits: 199 Case Name: Dizziness, chronic fatigue History: Pre-Treatment Pain Scale: 0 Symptoms: gradually improved Functional Diagnosis: 1. Dizziness Clinical Information: Subjective: Pt reports no recent falls and legs are getting stronger. Objective Treatments: Physical Therapy Exercise Log - 07/19/23 0918 OTHER Precautions/Contraindications check BP, pacemaker Notes LE endurance and static and dynamic balance Vitals Visit 4: 9:18 - 9:58 Therapeutic Exercise (40291) Intervention Nustep - x5 min L4 Parameters Sink Ex's (abd, Ext, march, Heel/toe raises, HS curl) x 20 each Intervention Seated Ex's (heel/toe raise, march, LAQ, abd) 10 1.5# ankle weight Parameters 6 mins walk test 390' NT Parameters Access Code: [email or web address] URL: [email or web address] Date: 06/21/2023 Prepared by: Katarzyna Adams Exercises - Standing Hip Abduction with Unilateral Counter Support - 1 x daily - 1-3 sets - 10 reps - Standing Hip Extension with Unilateral Counter Support - 1 x daily - 1-3 sets - 10 reps - Standing March with Unilateral Counter Support - 1 x daily - 1-3 sets - 10 reps - Heel Toe Raises with Unilateral Counter Support - 1 x daily - 1-3 sets - 10 reps - Standing Knee Flexion with Counter Support - 1 x daily - 1-3 sets - 10 reps - Sit to Stand with Counter Support - 1 x daily - 1 sets - 10 reps - Seated Heel Toe Raises - 1 x daily - 7 x weekly - 3 sets - 10 reps - Seated Hip Flexion (Mirrored) - 1 x daily - 7 x weekly - 3 sets - 10 reps - Seated Long Arc Quad (Mirrored) - 1 x daily - 7 x weekly - 3 sets - 10 reps - Seated Hip Abduction - 1 x daily - 7 x weekly - 3 sets - 10 reps - Seated Hip Adduction Isometrics with Ball or Pillow - 1 x daily - 7 x weekly - 3 sets - 10 reps Neuro Re-Ed (23758) Intervention NBOS EC 30 x2 Parameters NBOS EO on Airex 30x2 Intervention Stepping on and off Airex 10 Parameters step up on 6 step 10 Intervention Lat ambulation - x5 //bars PT Treatment Times Therex Total Time 15 Neuro Re-Ed Total Time 25 Direct Treatment Time 40 Total Treatment Time 40 Goals: Physical Therapy Ortho Goals: Patient will safely, correctly and independently demonstrate the ability to perform a progressive HEP to achieve maximal rehabilitation potential and prevent this condition from recurring. 2 weeks Patient will improve strength of LE 5/5 from 5/5. 6 weeks Patient will improve functional strength of LE to increase reps of sit to stand 3 points from 3.5 without UE assist. 6 weeks Patient will demonstarte improved PÉREZ score to at least 5 points higher from 36/56 in order to indicate LOW fall risk in 6 weeks. Patient will improve FOTO score to at least 58 (predicted) from 52 to show MDC/MCII and expected functional outcome. 6 weeks Patient Education: Quality of movement with patient demonstrated understanding. Post-Treatment Pain Scale: 0 Assessment: Patient had an expected response to treatment. Skilled Intervention demonstrated by modifications of treatment per exercise log including increased load and safety interventions per exercise log. Progress towards goals as expected. Plan for Next Visit: Treatment Visit with focus on strengthening and balance progression Anders Robledo PTA STATE LICENSE, [id number] documented in this encounter [facility] 07-17-2023 History of Present illness Narrative [facility] OUTPATIENT REHABILITATION DAILY TREATMENT NOTE Today's Date 07/17/2023 Patient Name: Rocio Sandoval Date of : 1945 Current Visit #: 5 Authorized Visits: 199 Case Name: Dizziness, chronic fatigue History: Pre-Treatment Pain Scale: pain is not the reason for visit Symptoms: stabilized Functional Diagnosis: 1. Dizziness 2. Chronic fatigue Clinical Information: Subjective: reports some fatigue after last session. Patient reports he has sore spot on lateral side of ankle Objective Added weights with seated exercises Treatments: Physical Therapy Exercise Log - 07/17/23 0915 OTHER Precautions/Contraindications check BP, pacemaker Notes LE endurance and static and dynamic balance Vitals Visit 3: 9:15 -10:00 Therapeutic Exercise ([id number]) Intervention Nustep - x5 min L4 Parameters Sink Ex's (abd, Ext, march, Heel/toe raises, HS curl) x 20 each Intervention Seated Ex's (heel/toe raise, march, LAQ, abd) 10 1# ankle weight Parameters -- Intervention -- Parameters -- Intervention -- Parameters 6 mins walk test 390' NT Parameters Access Code: [email or web address] URL: [email or web address] Date: 06/21/2023 Prepared by: Katarzyna Adams Exercises - Standing Hip Abduction with Unilateral Counter Support - 1 x daily - 1-3 sets - 10 reps - Standing Hip Extension with Unilateral Counter Support - 1 x daily - 1-3 sets - 10 reps - Standing March with Unilateral Counter Support - 1 x daily - 1-3 sets - 10 reps - Heel Toe Raises with Unilateral Counter Support - 1 x daily - 1-3 sets - 10 reps - Standing Knee Flexion with Counter Support - 1 x daily - 1-3 sets - 10 reps - Sit to Stand with Counter Support - 1 x daily - 1 sets - 10 reps - Seated Heel Toe Raises - 1 x daily - 7 x weekly - 3 sets - 10 reps - Seated Hip Flexion (Mirrored) - 1 x daily - 7 x weekly - 3 sets - 10 reps - Seated Long Arc Quad (Mirrored) - 1 x daily - 7 x weekly - 3 sets - 10 reps - Seated Hip Abduction - 1 x daily - 7 x weekly - 3 sets - 10 reps - Seated Hip Adduction Isometrics with Ball or Pillow - 1 x daily - 7 x weekly - 3 sets - 10 reps Neuro Re-Ed (84580) Intervention NBOS EC 30 x2 Parameters NBOS EO on Airex 30x2 Intervention Stepping on and off Airex 10 Parameters step up on 6 step 10 Intervention Lat ambulation - x5 //bars PT Treatment Times Therex Total Time 30 Neuro Re-Ed Total Time 15 Direct Treatment Time 45 Goals: Physical Therapy Ortho Goals: Patient will safely, correctly and independently demonstrate the ability to perform a progressive HEP to achieve maximal rehabilitation potential and prevent this condition from recurring. 2 weeks Patient will improve strength of LE 5/5 from 5/5. 6 weeks Patient will improve functional strength of LE to increase reps of sit to stand 3 points from 3.5 without UE assist. 6 weeks Patient will demonstarte improved PÉREZ score to at least 5 points higher from 36/56 in order to indicate LOW fall risk in 6 weeks. Patient will improve FOTO score to at least 58 (predicted) from 52 to show MDC/MCII and expected functional outcome. 6 weeks Patient Education: Quality of movement, Diagnosis and recovery specific education, and balance system and how he has been relying on vision for balance and some strategies to avoid fall while reaching with patient verbalized understanding. Post-Treatment Pain Scale: 0 Assessment: Patient had an expected response to treatment. Skilled Intervention demonstrated by modifications of treatment per exercise log including increased load, increased cueing, and assessment of patient's response and safety interventions per exercise log. Progress towards goals as expected. Plan for Next Visit: Treatment Visit with focus on continue Katarzyna Adams PT STATE LICENSE, [id number] documented in this encounter [facility] 07-10-2023 History of Present illness Narrative [facility] OUTPATIENT REHABILITATION DAILY TREATMENT NOTE Today's Date 07/10/2023 Patient Name: Rocio Sandoval Date of : 1945 Current Visit #: 4 Authorized Visits: 199 Case Name: Dizziness, chronic fatigue History: Pre-Treatment Pain Scale: pain not a factor Symptoms: stabilized Functional Diagnosis: 1. Chronic fatigue 2. Dizziness Clinical Information: Subjective: patient reports no headache, dizziness. BP in the morning was in good range. No fatigue after last session. Objective Added static balance exercises with good balance with EC on Airex and needs UE with SL standing. difficulty stepping on and off airex and catches Airex and needs VC. Treatments: Physical Therapy Exercise Log - 07/10/23925 OTHER Precautions/Contraindications check BP, pacemaker Notes LE endurance and static and dynamic balance Vitals Visit 3: 9:26 -10:02 Therapeutic Exercise ([id number]) Intervention Nustep - x5 min L4 Parameters 6 mins walk test 390' NT Intervention Sink Ex's (abd, Ext, march, Heel/toe raises, HS curl, mini squat) x 10 each NT Parameters Seated Ex's (heel/toe raise, march, LAQ) 2x10 (add resistance NV) Intervention Seated abd, add 3''x20 NT Parameters Lat ambulation - x5 //bars Intervention BOSU step ups - x10 B NT Parameters Access Code: [email or web address] URL: [email or web address] Date: 06/21/2023 Prepared by: Katarzyna Adams Exercises - Standing Hip Abduction with Unilateral Counter Support - 1 x daily - 1-3 sets - 10 reps - Standing Hip Extension with Unilateral Counter Support - 1 x daily - 1-3 sets - 10 reps - Standing March with Unilateral Counter Support - 1 x daily - 1-3 sets - 10 reps - Heel Toe Raises with Unilateral Counter Support - 1 x daily - 1-3 sets - 10 reps - Standing Knee Flexion with Counter Support - 1 x daily - 1-3 sets - 10 reps - Sit to Stand with Counter Support - 1 x daily - 1 sets - 10 reps - Seated Heel Toe Raises - 1 x daily - 7 x weekly - 3 sets - 10 reps - Seated Hip Flexion (Mirrored) - 1 x daily - 7 x weekly - 3 sets - 10 reps - Seated Long Arc Quad (Mirrored) - 1 x daily - 7 x weekly - 3 sets - 10 reps - Seated Hip Abduction - 1 x daily - 7 x weekly - 3 sets - 10 reps - Seated Hip Adduction Isometrics with Ball or Pillow - 1 x daily - 7 x weekly - 3 sets - 10 reps Neuro Re-Ed (56033) Intervention NBOS EC 30 x2 Parameters NBOS EO on Airex 30x2 Intervention Stepping on and off Airex 10 Parameters step up on 6 step 10 Intervention heel raises 10 PT Treatment Times Therex Total Time 16 Neuro Re-Ed Total Time 20 Direct Treatment Time 36 Goals: Physical Therapy Ortho Goals: Patient will safely, correctly and independently demonstrate the ability to perform a progressive HEP to achieve maximal rehabilitation potential and prevent this condition from recurring. 2 weeks Patient will improve strength of LE 5/5 from 5/5. 6 weeks Patient will improve functional strength of LE to increase reps of sit to stand 3 points from 3.5 without UE assist. 6 weeks Patient will demonstarte improved PÉREZ score to at least 5 points higher from 36/56 in order to indicate LOW fall risk in 6 weeks. Patient will improve FOTO score to at least 58 (predicted) from 52 to show MDC/MCII and expected functional outcome. 6 weeks Patient Education: Quality of movement and Diagnosis and recovery specific education with patient verbalized understanding. Post-Treatment Pain Scale: 0 Assessment: Patient had an expected response to treatment. Skilled Intervention demonstrated by modifications of treatment per exercise log including increased load and increased cueing and safety interventions per exercise log. Progress towards goals as expected. Plan for Next Visit: Treatment Visit with focus on continue with standing exercises and might add weight for seated exercises Katarzyna Adams, PASTOR STATE LICENSE, [id number] documented in this encounter [facility] 07-03-2023 History of Present illness Narrative [facility] OUTPATIENT REHABILITATION DAILY TREATMENT NOTE Today's Date 07/03/2023 Patient Name: Rocio Sandoval Date of : 1945 Current Visit #: 3 Authorized Visits: 199 Case Name: Dizziness, chronic fatigue History: Pre-Treatment Pain Scale: 0 Symptoms: stabilized Functional Diagnosis: 1. Chronic fatigue [R53.82] 2. Dizziness [R42] Clinical Information: Subjective: Pt reports having some dizziness but n pattern for when it happens, Continues to be fatigued. Partial compliance with HEP Objective Treatments: Physical Therapy Exercise Log - 07/03/23 0987 OTHER Precautions/Contraindications check BP, pacemaker, Notes LE endurance and static and dynamic balance Vitals Visit 2: 9:15 - 9:55 Therapeutic Exercise (78253) Intervention Nustep - x5 min L4 Parameters 6 mins walk test 390' NT Intervention Sink Ex's (abd, Ext, march, Heel/toe raises, HS curl, mini squat) x 15 each Parameters Seated Ex's (heel/toe raise, march, LAQ,) Intervention Seated abd, add 3''x20 Parameters Lat ambulation - x5 //bars Intervention BOSU step ups - x10 B Parameters Access Code: [email or web address] URL: [email or web address] Date: 06/21/2023 Prepared by: Katarzyna Adams Exercises - Standing Hip Abduction with Unilateral Counter Support - 1 x daily - 1-3 sets - 10 reps - Standing Hip Extension with Unilateral Counter Support - 1 x daily - 1-3 sets - 10 reps - Standing March with Unilateral Counter Support - 1 x daily - 1-3 sets - 10 reps - Heel Toe Raises with Unilateral Counter Support - 1 x daily - 1-3 sets - 10 reps - Standing Knee Flexion with Counter Support - 1 x daily - 1-3 sets - 10 reps - Sit to Stand with Counter Support - 1 x daily - 1 sets - 10 reps - Seated Heel Toe Raises - 1 x daily - 7 x weekly - 3 sets - 10 reps - Seated Hip Flexion (Mirrored) - 1 x daily - 7 x weekly - 3 sets - 10 reps - Seated Long Arc Quad (Mirrored) - 1 x daily - 7 x weekly - 3 sets - 10 reps - Seated Hip Abduction - 1 x daily - 7 x weekly - 3 sets - 10 reps - Seated Hip Adduction Isometrics with Ball or Pillow - 1 x daily - 7 x weekly - 3 sets - 10 reps PT Treatment Times Therex Total Time 40 Direct Treatment Time 40 Total Treatment Time 40 Goals: Physical Therapy Ortho Goals: Patient will safely, correctly and independently demonstrate the ability to perform a progressive HEP to achieve maximal rehabilitation potential and prevent this condition from recurring. 2 weeks Patient will improve strength of LE 5/5 from 5/5. 6 weeks Patient will improve functional strength of LE to increase reps of sit to stand 3 points from 3.5 without UE assist. 6 weeks Patient will demonstarte improved PÉREZ score to at least 5 points higher from 36/56 in order to indicate LOW fall risk in 6 weeks. Patient will improve FOTO score to at least 58 (predicted) from 52 to show MDC/MCII and expected functional outcome. 6 weeks Patient Education: Quality of movement with patient demonstrated understanding. Post-Treatment Pain Scale: 0 Assessment: Patient had an expected response to treatment. Skilled Intervention demonstrated by modifications of treatment per exercise log including increased load and safety interventions per exercise log. Progress towards goals as expected. Plan for Next Visit: Treatment Visit with focus on dynamic strengthening progression Anders Robledo PTA STATE LICENSE, [id number] documented in this encounter [facility] 06-21-2023 History of Present illness Narrative [facility] OUTPATIENT REHABILITATION Evaluation Today's Date 06/21/2023 Patient Name: Rocio Sandoval Date of : 1945 Case Name: Dizziness, chronic fatigue Functional Diagnosis: 1. Dizziness 2. Chronic fatigue Clinical Information: Subjective Referring Diagnosis: Dizziness, chronic fatigue History of Present Illness Contemporary Medical History: Hx of Type II DM, Chronic diastolic congestive heart failure (CMS/HCC) Mixed hyperlipidemia Mild CAD Peripheral arterial occlusive disease (CMS/HCC) spinal stenosis/lumbar radiculopathy Peripheral neuropathy Pacemaker Subjective History: Patient presents to physical therapy with chronic fatigue and tiredness. Progressed gradually starting from last year. Reports his balance is off when he is walking but denies any falls. He reports he does not want to do much and low active. He reports his testosterone level is down which he thinks contributing to his tiredness. He has pacemaker placed last year. He reports pain in r hip area started yesterday. He was doing wood log loading and that might have triggered his back and R hip pain. He usually sees chiropractor for those issue which helps. He uses inversion table (recommended not to use that) for 2 mins sometimes. Dizziness is recent and last week, he had LH/dizziness for a day. He does not know what triggered. He denies any change in blood pressure medication recently and blood pressure was normal during his last appointment. No other episode of dizziness. He has diabetes and extensive cardiac Hx, taking multiple medications (risk factors for dizziness). He went for blood test and follow up visit in a month. Pain Scale Reason for not responding: pain is not reason for seeking treatment Personal Goals: Wants to walk without fall Social Support: L[employer], social, or cultural considerations to be made aware of before starting treatment: No Barriers to Care: Chronicity or severity of impairments Fall risk screening Fallen 2 or more times in the last 12 months: No Injured as a result of a fall in the last 12 months: No [employer], social, or cultural considerations to be made aware of before starting treatment: No Lumbar Spine Gait: decreased melissa Posture: Posture - Back: forward head posture. Dermatomes Sensation: reports l foot T+N (neuropathy and radiculopathy), taking gabapentine that helps. Muscle Strength:Muscle Strength Functional Limits: grossly 4+/5. Additional Objective Information: 30 sec STS: 3.5 reps without UE assist Tandem stance, Sl standing, tapping on step: could not do that without losing balance and needs support Backward walking: slow but good balance Modified Clinical Test of Sensory Interaction and Balance ((mCTSIB) Standing NBOS EO: good balance Standing 60 sec NBOS EC (romberg's sign): +ve in sensory ataxia: needs supervision with moderate sway Standing NBOS EO on Airex : needs mini assist with moderate sway Standing NBOS EC on Airex: needs assistance Might do 6 min test in future visit. Treatments: Physical Therapy Exercise Log - 06/21/23 1028 OTHER Precautions/Contraindications check BP, pacemaker, Notes LE endurance and static and dynamic balance Therapeutic Exercise (80081) Intervention 6 mins walk test NV Parameters Access Code: [email or web address] URL: [email or web address] Date: 06/21/2023 Prepared by: Katarzyna Adams Exercises - Standing Hip Abduction with Unilateral Counter Support - 1 x daily - 1-3 sets - 10 reps - Standing Hip Extension with Unilateral Counter Support - 1 x daily - 1-3 sets - 10 reps - Standing March with Unilateral Counter Support - 1 x daily - 1-3 sets - 10 reps - Heel Toe Raises with Unilateral Counter Support - 1 x daily - 1-3 sets - 10 reps - Standing Knee Flexion with Counter Support - 1 x daily - 1-3 sets - 10 reps - Sit to Stand with Counter Support - 1 x daily - 1 sets - 10 reps - Seated Heel Toe Raises - 1 x daily - 7 x weekly - 3 sets - 10 reps - Seated Hip Flexion (Mirrored) - 1 x daily - 7 x weekly - 3 sets - 10 reps - Seated Long Arc Quad (Mirrored) - 1 x daily - 7 x weekly - 3 sets - 10 reps - Seated Hip Abduction - 1 x daily - 7 x weekly - 3 sets - 10 reps - Seated Hip Adduction Isometrics with Ball or Pillow - 1 x daily - 7 x weekly - 3 sets - 10 reps Treatment Plan: Frequency of Visits: twice per week Duration: 6 weeks Interventions: Therapeutic Exercise (43962), Neuromuscular Re-Education (60042), and Gait Training (14287) Rehab Potential: fair Goals: Physical Therapy Ortho Goals: Patient will safely, correctly and independently demonstrate the ability to perform a progressive HEP to achieve maximal rehabilitation potential and prevent this condition from recurring. 2 weeks Patient will improve strength of LE 5/5 from 5/5. 6 weeks Patient will improve functional strength of LE to increase reps of sit to stand 3 points from 3.5 without UE assist. 6 weeks Patient will demonstarte improved PÉREZ score to at least 5 points higher from 36/56 in order to indicate LOW fall risk in 6 weeks. Patient will improve FOTO score to at least 58 (predicted) from 52 to show MDC/MCII and expected functional outcome. 6 weeks Patient Education provided: Patient was educated about the condition, precautions, and physical therapy plan of care. Clinical Impression: Pt is a 77 y.o. year old male who presented to the clinic with chronic fatigue and dizziness, off balance. Upon assessment, pt has been found with the following impairments: tiredness, decreased strength, endurance and coordination; impaired gait, balance, tolerance to do activities. 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 Pt to be discharged from OP PT services if/when goals are met, if they fail to make progress with conservative management in PT, if their level of progress plateaus, or if they do not maintain compliance with attendance or HEP. At this time, it is my clinical judgment that services are medically necessary. Katarzyna Adams, PT STATE LICENSE, [id number] documented in this encounter [facility] 06-13-2023 Evaluation + Plan note Associated Problem(s): Afib ([facility]) Has pacemaker in place, not really using furosemide, complains of intermittent persistent dizziness that will last for several hours worse on activity. Blood pressure stable, check labs, prescribe physical therapy recheck again in 1 month may need to follow-up with cardiology and check echocardiogram. [facility] Work Phone: 06-13-2023 Miscellaneous Notes Associated Problem(s): Afib (CMS/HCC) Has pacemaker in place, not really using furosemide, complains of intermittent persistent dizziness that will last for several hours worse on activity. Blood pressure stable, check labs, prescribe physical therapy recheck again in 1 month may need to follow-up with cardiology and check echocardiogram. documented in this encounter [facility] Work Phone: 06-13-2023 History of Present illness Narrative Subjective Patient ID: Rocio Sandoval is a 77 y.o. male who presents for Dizziness (Denies any falls ). HPI Dizzy spells, has had in the past, had over the past week and last night Worse if leans over, some LH if gets up from a chair, no movement sensation, no falls, no CP/SOB, no headaches, no palpitations, some N/T in feet Lasts for hours at times, comes and goes No edema, no orthopnea/PND HBP usually below 140/90 LH at rest and activity, some worse with exertion Not using Lasix consistently More fatigue and lack of energy Review of Systems Constitutional: Positive for fatigue. Negative for activity change, appetite change and unexpected weight change. HENT: Negative for congestion, ear pain, nosebleeds, rhinorrhea, sneezing and trouble swallowing. Respiratory: Negative for cough, shortness of breath and wheezing. Cardiovascular: Negative for chest pain, palpitations and leg swelling. Gastrointestinal: Negative for abdominal distention, abdominal pain, constipation, diarrhea, nausea and vomiting. Genitourinary: Negative for difficulty urinating. Musculoskeletal: Negative for arthralgias. Skin: Negative for rash. Neurological: Positive for dizziness and light-headedness. Negative for tremors, numbness and headaches. Hematological: Negative for adenopathy. Psychiatric/Behavioral: Negative for behavioral problems. All other systems reviewed and are negative. Objective BP 134/70 Pulse 69 Ht 1.88 m (6' 2) Wt 98.5 kg (217 lb 3.2 oz) SpO2 98% BMI 27.89 kg/m Physical Exam Vitals and nursing note reviewed. Constitutional: Appearance: Normal appearance. HENT: Head: Normocephalic and atraumatic. Right Ear: Tympanic membrane, ear canal and external ear normal. Left Ear: Tympanic membrane, ear canal and external ear normal. Nose: Nose normal. Mouth/Throat: Mouth: Mucous membranes are moist. Pharynx: Oropharynx is clear. Cardiovascular: Rate and Rhythm: Normal rate and regular rhythm. Pulses: Normal pulses. Heart sounds: Normal heart sounds. Pulmonary: Effort: Pulmonary effort is normal. Breath sounds: Normal breath sounds. Musculoskeletal: Cervical back: Normal range of motion and neck supple. Neurological: Mental Status: He is alert. Psychiatric: Mood and Affect: Mood normal. Behavior: Behavior normal. Assessment/Plan Problem List Items Addressed This Visit ICD-10-CM Chronic diastolic congestive heart failure (CMS/HCC) I50.32 Fatigue R53.83 Relevant Orders CBC and Auto Differential Comprehensive Metabolic Panel Vitamin B12 Referral to Physical Therapy Follow Up In Primary Care - Established Hypertension, essential, benign I10 Afib (CMS/HCC) I48.[address], not really using furosemide, complains of intermittent persistent dizziness that will last for several hours worse on activity. Blood pressure stable, check labs, prescribe physical therapy recheck again in 1 month may need to follow-up with cardiology and check echocardiogram. 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 Prescribe PT and recheck in 1 month Relevant Orders CBC and Auto Differential Comprehensive Metabolic Panel Vitamin B12 Referral to Physical Therapy Follow Up In Primary Care - Established documented in this encounter [facility] Work Phone: 06-13-2023 Instructions Tye Anne MD - 06/13/2023 11:20 AM EST Stop Trazodone, start some therapy for balance and get additional blood testing today. documented in this encounter [facility] Work Phone: 05-23-2023 History of Present illness Narrative Subjective Rocio Sandoval is a 77 y.o. male with pseudogout, DM, HTN, A fibrillation (on xarelto, s/p ablation), has cardiac pacemaker, and ALISHA, presents for follow up. Current rheum meds: - Tylenol 500 mg BID Previous rheum meds: - None HPI The patient is doing well, 95% better He reports he wasn't able to make a fist before, mainly in the left hand and now he can He is squeezing a stress ball and doing hot water which helps as well No painful joints or swelling, sometimes gets back pain with activity No CKD Compliant with meds No side effects reported ROS: As per HPI Rheum hx (Recall from Dr. Solorio's notes): Presenting sx: Patient states couple months ago he started to experience localized pain, swelling, stiffness around the left wrist and dorsum of the hand with associated difficulty making a fist. The symptoms are intermittent, the stiffness improves with activity and mostly localized to the left with mild symptoms on the right. 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 He does not take any Tylenol or NSAIDs on regular basis. 3 weeks ago he was working in [employer] and started to have allergy sx for which he recently saw his primary care doctor and was prescribed prednisone 20 mg once a day. Patient states he started this last night and did notice an improvement in the stiffness swelling and pain at his wrist and the hand. He denies significant sx of neck pain, shoulder pain, hip involvement. He has chronic low back pain related to degenerative disc disease and has had back surgeries in the past (last three years ago). History of left knee replacement. He currently complains of intermittent right knee pain. No significant swelling He has chronic neuropathy in left foot- on gabapentin 600mg 3 times a day Has been taking tylenol 1 tab at night and it helps. Has had issues with left elbow bursitis sees orthopedics. This has previously been drained 3 times however recurs and more recently had a procedure done with removal of the bursa sac. It appears to be healing but he still has stitches in place. He denies prior history of gout, unsure if he has had fluid analysis on the aspirations/bursa. Denies recent fevers. PSH: left knee replacement, back surgery SocHX: Denies smoking, ETOH use or recreational drug use Amiodarone was started recently, no other new medications. He is on a stable dose of atorvastatin Patient Active Problem List Diagnosis Bilateral renal stones BPH (benign prostatic hyperplasia) Bradycardia Carpal tunnel syndrome of right wrist Cervical spondylosis Lumbosacral spondylosis Thoracic spondylosis Chronic diastolic congestive heart failure (CMS/HCC) Chronic low back pain Chronotropic incompetence Erectile dysfunction Fatigue Generalized osteoarthritis of multiple sites GERD (gastroesophageal reflux disease) Hyperlipemia Hypertension, essential, benign Mild CAD 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 stenosis Obesity (BMI 30-39.9) ALISHA on CPAP Peripheral arterial occlusive disease (CMS/HCC) Phimosis Prolapsed lumbar disc Sacroiliitis (CMS/HCC) Afib (CMS/HCC) Sinus node dysfunction (CMS/HCC) Synovial cyst of right popliteal space Thoracic radiculitis Type II 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 (CMS/HCC) Venous insufficiency of leg 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, single episode, in partial remission (CMS/HCC) Calcium pyrophosphate deposition disease (CPPD) Arthropathy of right knee Eczema Past Medical History: Diagnosis Date Benign prostatic hyperplasia without lower urinary tract symptoms 07/08/2021 BPH (benign prostatic hyperplasia) Calculus of kidney 12/30/2019 Bilateral renal stones Carpal tunnel syndrome, right upper limb 12/31/2019 Carpal tunnel syndrome of right wrist Cough 10/06/2022 Depression, unspecified 01/05/2022 Depression Disorder of arteries and arterioles, unspecified (CMS/HCC) 01/05/2022 Peripheral arterial occlusive disease Dizziness 10/06/2022 Essential (primary) hypertension 06/29/2022 Hypertension, essential, benign Gastro-esophageal reflux disease without esophagitis 01/05/2022 GERD (gastroesophageal reflux disease) Hyperlipidemia, unspecified 01/05/2022 Hyperlipemia Influenza A 10/06/2022 Male erectile dysfunction, unspecified 09/03/2019 Erectile dysfunction Obesity, unspecified 08/16/2020 Obesity (BMI 30-39.9) Obstructive sleep apnea (adult) (pediatric) 01/05/2022 ALISHA on CPAP Personal history of diseases of the skin and subcutaneous tissue History of actinic keratosis Personal history of other infectious and parasitic diseases History of onychomycosis Personal history of other infectious and parasitic diseases History of tinea pedis Plantar fascial fibromatosis Plantar fasciitis Polyosteoarthritis, unspecified 09/23/2019 Generalized osteoarthritis of multiple sites Rash of genitalia 10/06/2022 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s (CMS/HCC) 01/05/2022 Type II 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 Venous insufficiency (chronic) (peripheral) Venous insufficiency of leg Past Surgical History: Procedure Laterality Date CARDIAC PACEMAKER PLACEMENT 06/2022 OTHER SURGICAL HISTORY 06/18/2019 Lumbar vertebral fusion OTHER SURGICAL HISTORY 06/18/2019 Retinal detachment repair OTHER SURGICAL HISTORY 06/18/2019 Phacoemulsification of cataract and insertion of intraocular lens OTHER SURGICAL HISTORY 06/18/2019 Circumcision OTHER SURGICAL HISTORY 06/18/2019 Knee replacement OTHER SURGICAL HISTORY 06/18/2019 Sigmoidoscopy flexible OTHER SURGICAL HISTORY 06/18/2019 Dermatological cryotherapy OTHER SURGICAL HISTORY 06/18/2019 Esophagogastroduodenoscopy OTHER SURGICAL HISTORY 06/18/2019 Nail debridement OTHER SURGICAL HISTORY 06/18/2019 Epidural space injection OTHER SURGICAL HISTORY 07/07/2020 Colonoscopy OTHER SURGICAL HISTORY 01/05/2022 Catheter ablation OTHER SURGICAL HISTORY 08/16/2020 Cardiac catheterization OTHER SURGICAL HISTORY 05/11/2020 Inguinal hernia repair Social History Socioeconomic History Marital status: Spouse name: Not on file Number of children: Not on file Years of education: Not on file Highest education level: Not on file Occupational History Not on file Tobacco Use Smoking status: Never Passive exposure: Never Smokeless tobacco: Never Vaping Use Vaping Use: Never used Substance and Sexual Activity Alcohol use: Never Drug use: Never Sexual activity: Defer Other Topics Concern Not on file Social History Narrative Not on file Social Determinants of Health Financial Resource Strain: Not on file Food Insecurity: Not on file Transportation Needs: Not on file Physical Activity: Not on file Stress: Not on file Social Connections: Not on file Intimate Partner Violence: Not on file Housing Stability: Not on file Not on File Current Outpatient Medications: acetaminophen (Tylenol) 500 mg capsule, Tylenol 500 MG CAPS Refills: 0, Disp: , Rfl: amiodarone (Pacerone) 100 mg tablet, Take 1 tablet (100 mg) by mouth once daily., Disp: , Rfl: atorvastatin (Lipitor) 40 mg tablet, Take 1 tablet (40 mg) by mouth once daily at bedtime., Disp: 90 tablet, Rfl: 3 B6/folic/B12/coffee/phosphatid (NEURIVA PLUS BRAIN PERFORMANCE ORAL), Take 1 tablet by mouth once daily., Disp: , Rfl: blood sugar diagnostic (Advanced Gluc Meter Test Strip) strip, Inject 1 strip into the skin once daily., Disp: 90 strip, Rfl: 3 empagliflozin (Jardiance) 25 mg, Take 1 tablet (25 mg) by mouth once daily., Disp: 90 tablet, Rfl: 3 fexofenadine (Sulaiman) 180 mg tablet, Take 1 tablet (180 mg) by mouth once daily., Disp: 30 tablet, Rfl: 5 furosemide (Lasix) 20 mg tablet, Take 1 tablet (20 mg) by mouth once daily., Disp: , Rfl: gabapentin (Neurontin) 800 mg tablet, Take 1 tablet (800 mg) by mouth 4 times a day., Disp: 360 tablet, Rfl: 0 melatonin 5 mg capsule, Take by mouth., Disp: , Rfl: metFORMIN XR (Glucophage-XR) 750 mg 24 hr tablet, Take 1 tablet (750 mg) by mouth 2 times a day., Disp: , Rfl: multivitamin (MULTIPLE VITAMINS ORAL), Take 1 tablet by mouth once daily., Disp: , Rfl: omeprazole (PriLOSEC) [address] capsule, Take 1 capsule (40 mg) by mouth once daily., Disp: 90 capsule, Rfl: 3 rivaroxaban (Xarelto) 20 mg tablet, Take 1 tablet (20 mg) by mouth once daily., Disp: 90 tablet, Rfl: 3 tamsulosin (Flomax) 0.4 mg 24 hr capsule, Take 1 capsule (0.4 mg) by mouth once daily., Disp: 90 capsule, Rfl: 3 testosterone (Androderm) 4 mg/24 hr, Place 1 patch over 24 hours on the skin once daily., Disp: 30 patch, Rfl: 2 traZODone (Desyrel) 50 mg tablet, Take 0.5 tablets (25 mg) by mouth once daily at bedtime. TAKE 0.5 TABLET BEDTIME, Disp: 45 tablet, Rfl: 3 vitamins A,C,C-efdl-ppquyd (Eye Multivitamin) 2,148 mcg-113 mg-45 mg-17.4mg tablet, Take 1 tablet by mouth once daily., Disp: , Rfl: ipratropium (Atrovent) 21 mcg (0.03 %) nasal spray, Administer 2 sprays into each nostril in the morning and 2 sprays in the evening. (Patient not taking: Reported on 05/03/2023), Disp: 30 mL, Rfl: 12 Objective Visit Vitals BP 128/64 (BP Location: Left arm, Patient Position: Sitting) Pulse 88 Physical Exam: General: AAOx3, Cooperative Eyes: EOMI, conjunctiva clear, sclera white, anicteric Throat/Mouth: No oral deformities, no cheek swelling, mucosa appear moist, no oral ulcers noted or loss of dentition Skin: Some ecchymoses over the forearms MSK: Upper Extremities: Hand/Fingers: No erythema, edema, tenderness or warmth at DIP, PIP, or MCP joints, FROM grossly. 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 No nodules. No deformities. Mild squaring of his 1st CMC joints Wrists: No erythema, edema, warmth or tenderness at wrist, FROM grossly Elbows: No tenderness, edema, erythema or warmth at elbows, FROM grossly. No nodules Shoulders: No edema, erythema, tenderness or warmth at shoulders. FROM Lower Extremities: Hips: No obvious deformities. No joint tenderness, normal ROM grossly. No trochanteric bursae TTP Knees: No tenderness, deformities, edema, rashes, or warmth, normal ROM grossly. No crepitus, no pes anserine bursa TTP. Scar over the left knee from replacement surgery Ankles, feet: No deformities, tenderness, edema, erythema, ulceration, or warmth at the ankle or MTP/IP joints, normal ROM grossly Spine: No spinal tenderness to palpation. No SI joint tenderness Lab Results Component Value Date WBC 8.9 04/25/2023 HGB 12.6 (L) 04/25/2023 HCT 42.1 04/25/2023 MCV 93 04/25/2023 PLT 322 04/25/2023 Chemistry Lab Results Component Value Date/Time NA 141 04/25/2023 0659 K 4.0 04/25/2023 0659 CL 104 04/25/2023 0659 CO2 29 04/25/2023 0659 BUN 16 04/25/2023 0659 CREATININE 0.90 04/25/2023 0659 Lab Results Component Value Date/Time CALCIUM 9.2 04/25/2023 0659 ALKPHOS 64 04/25/2023 0659 AST 12 04/25/2023 0659 ALT 9 (L) 04/25/2023 0659 BILITOT 0.6 04/25/2023 0659 Lab Results Component Value Date CRP 0.25 01/26/2023 Lab Results Component Value Date SEDRATE 20 01/26/2023 Lab Results Component Value Date ALT 9 (L) 04/25/2023 AST 12 04/25/2023 ALKPHOS 64 04/25/2023 BILITOT 0.6 04/25/2023 Lab Results Component Value Date URICACID 3.3 (L) 01/26/2023 XR chest 1 view Narrative: Interpreted By: REAGAN MARIE MD Patient Name: ROCIO SANDOVAL STUDY: CHEST 1 VIEW; 03/16/2023 2:43 pm INDICATION: weakness . COMPARISON: 08/25/2022 ACCESSION NUMBER(S): [id number] ORDERING CLINICIAN: SIMI BRAY FINDINGS: 2 AP portable radiographs of the chest were obtained. A 2 lead pacer is seen over the left chest. Hazy opacity is seen over the right lung base and may represent scarring, atelectasis and/or pneumonia. No pneumothorax is identified. The cardiac silhouette is mildly prominent, similar to prior studies. Impression: Right basilar airspace opacity, as above. Clinical correlation and continued follow-up until clearing is recommended. Xray knee 04/23: No acute osseous abnormality. Right knee degenerative changes at least moderate in severity in the medial knee compartment. Similar compared to 05/09/2022. Intact left total knee replacement. Xray hands 12/22 Left: Osteoarthritis is severe at the 1st CMC with intra-articular calcific bodies, mild at most of the interphalangeal joints. There is a 2 mm metallic body within the soft tissues near the 4th D IP joint. Additional small foreign body at the ulnar aspect of the hand is unchanged. There is soft tissue edema at the wrist. Right: Negative ulnar variance. No periosteal reaction or erosion. Mild osteoarthritis at the radiocarpal joint, 1st CMC, triscaphe joint, and most of the interphalangeal joints. No acute soft tissue abnormality. Minimal TFCC chondrocalcinosis. === 01/26/23 === KNEE Moderate medial compartment arthritis. Severe chondrocalcinosis which can be seen with CPPD arthropathy === 03/31/21 === MR LUMBAR SPINE W AND WO CONTRAST * Postoperative changes as described *Mild canal narrowing at L4/L5 partially due to a right-sided synovial cyst *Foraminal narrowing throughout the lumbar spine as described Assessment/Plan: This is a 77 Y M with pseudogout and OA, presents for follow up. Last seen by Dr. Solorio in 02/21 Intermittent worsening symptoms with localized pain, swelling, stiffness, mostly at the wrist/hand L>R and R knee, no recurrence, prior involvement of L olecranon bursa with chronic bursitis, is most c/w crystal arthritis, CPPD (prior imaging does reveal chondrocalcinosis at TFCC and knee). No prior fluid analysis. Uric acid 3.3 Pt has underlying OA which maybe contributing to some joint pain/stiffness. Lower clinical suspicion for RA (no significant symmetrical/MCP involvement, RF/CCP negative), ESR/CRP, CK nml Labs: 04/23: Hb 12.6, CMP wnl 01/21: ESR 20, CRP 0.5, CCP, RF neg, UA 3.3 Imaging: Knee xray 01/21: Moderate medial compartment arthritis. Severe chondrocalcinosis which can be seen with CPPD arthropathy Xray right hand 12/22: Negative ulnar variance. No periosteal reaction or erosion. Mild osteoarthritis at the radiocarpal joint, 1st CMC, triscaphe joint, and most of the interphalangeal joints. No acute soft tissue abnormality. Minimal TFCC chondrocalcinosis. # CPPD arthritis, Knee and hand xrays show chondrocalcinosis, no current effusion. Good control of sx with Tylenol # OA of multiple joints # Back pain with prolonged activity Will monitor for recurring inflammatory arthritis- may need to consider PRN colchicine use - Tylenol upto 1-2gm/day for OA, sent to pharmacy, he will check if it is cheaper than OTC - Labs with next mark (CBC, CMP, ESR, CRP) - Advised to get the flu vaccine, he said he will RTC in 6 months Plan, including risks and benefits, was discussed with the patient, informed on how to reach us. To schedule an appointment, call To reach the rheumatology office, call Sheyla Schultz MD Division of Rheumatology [facility] documented in this encounter [facility] Work Phone: 05-03-2023 History of Present illness Narrative Subjective Patient ID: Rocio Sandoval is a 77 y.o. male who presents for Pain (FUV meds today having pain Lt shoulder, bilat scapula, and rt hip rates pain 3/10 now and 7/10 at worst, describes as an ache. In the past he has seen a Chiropractor for his hip but has not been there in a while. He taking tylenol BID, GPN, and repositioning to help his pain. He reports the pain affects his ALDs including lifting, sitting, laying/sleeping, traveling, standing for 30 minutes and walking 0.5 mile causes increased pain. ) RACHEL score 31/100, screenings BMI n/a age, Smoking and depression negative. He will need a RF on GPN send to [facility] mail order. Patient is a 77-year-old male. He presents today for 3-month medication management follow-up. At this time, he has his normal pains. Intermittently in the lower back and leg. Intermittently in between the shoulder blades but he states that things have been slightly increased from his last appointment to now. He rates his discomfort a 3/10 but it can get up to a 7/10. It affects his ability to do the things he wants to do when it is flared up. He is getting ready to make an appointment with his chiropractor which has helped him in the past. He continues on gabapentin. 600 mg 3-4 times a day. Tolerates well. No side effects. Review of Systems Constitutional: Negative. HENT: Negative. Eyes: Negative. Respiratory: Negative. Cardiovascular: Negative. Gastrointestinal: Negative. Endocrine: Negative. Genitourinary: Negative. Musculoskeletal: Positive for arthralgias, back pain, myalgias, neck pain and neck stiffness. Skin: Negative. Allergic/Immunologic: Negative. Hematological: Negative. Psychiatric/Behavioral: Negative. Objective Physical Exam Vitals reviewed. Constitutional: Appearance: Normal appearance. He is obese. HENT: Head: Normocephalic and atraumatic. Right Ear: External ear normal. Nose: Nose normal. Mouth/Throat: Pharynx: Oropharynx is clear. Eyes: Pupils: Pupils are equal, round, and reactive to light. Cardiovascular: Pulses: Normal pulses. Heart sounds: Normal heart sounds. Pulmonary: Effort: Pulmonary effort is normal. Breath sounds: Normal breath sounds. Musculoskeletal: General: Normal range of motion. Cervical back: Normal range of motion. Comments: 5/5 upper and lower extremity strength Neurological: General: No focal deficit present. Mental Status: He is alert and oriented to person, place, and time. Mental status is at baseline. Psychiatric: Mood and Affect: Mood normal. Thought Content: Thought content normal. Judgment: Judgment normal. Assessment/Plan Diagnoses and all orders for this visit: Generalized osteoarthritis of multiple sites - gabapentin (Neurontin) 800 mg tablet; Take 1 tablet (800 mg) by mouth 4 times a day. Chronic bilateral low back pain with bilateral sciatica - gabapentin (Neurontin) 800 mg tablet; Take 1 tablet (800 mg) by mouth 4 times a day. 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 stenosis - gabapentin (Neurontin) 800 mg tablet; Take 1 tablet (800 mg) by mouth 4 times a day. Sacroiliitis (CMS/HCC) - gabapentin (Neurontin) 800 mg tablet; Take 1 tablet (800 mg) by mouth 4 times a day. Osteoarthritis of spine with radiculopathy, lumbosacral region - gabapentin (Neurontin) 800 mg tablet; Take 1 tablet (800 mg) by mouth 4 times a day. Patient is a 77-year-old male with a past medical history significant for multifocal joint pain, lumbar stenosis and lumbar neuritis. At this time, he continues on gabapentin. 600 mg 3-4 times a day but he has noticed a slight increase of his pain. We had a long discussion on different options. He wants to see his chiropractor and see if he can get some improvement with this. We discussed a slight increase of his gabapentin to 800 mg 3-4 times a day but we had a discussion about the max dose of the medication. Patient voiced understanding. He is going to increase the gabapentin and follow-up in 3 months for medication management once again. He will call the clinic sooner if necessary OARRS reviewed documented in this encounter [facility] Work Phone: 04-30-2023 Evaluation + Plan note Associated Problem(s): ALISHA on CPAP Patient has been using their CPAP nightly and is experiencing restful sleep, no morning headaches, no witnessed snoring, and notices a difference if they do not use the device. [facility] Work Phone: 04-30-2023 Evaluation + Plan note Associated Problem(s): Sacroiliitis (CMS/HCC) Follows with pain management, tolerating gabapentin, no falls. [facility] Work Phone: 04-30-2023 Evaluation + Plan note Associated Problem(s): Major depressive disorder, single episode, in partial remission (CMS/HCC) Currently stable. [facility] Work Phone: 04-30-2023 Evaluation + Plan note Associated Problem(s): BPH (benign prostatic hyperplasia) Currently stable. [facility] Work Phone: 04-30-2023 Evaluation + Plan note Associated Problem(s): GERD (gastroesophageal reflux disease) Stable with medication no issues with dysphagia. [facility] Work Phone: 04-30-2023 Evaluation + Plan note Associated Problem(s): Low testosterone in male Patient request a trial of hormone replacement, will place on a patch for testosterone and recheck at follow-up. [facility] Work Phone: 04-30-2023 Miscellaneous Notes Associated Problem(s): ALISHA on CPAP Patient has been using their CPAP nightly and is experiencing restful sleep, no morning headaches, no witnessed snoring, and notices a difference if they do not use the device. Associated Problem(s): Sacroiliitis (CMS/HCC) Follows with pain management, tolerating gabapentin, no falls. Associated Problem(s): Major depressive disorder, single episode, in partial remission (CMS/HCC) Currently stable. Associated Problem(s): BPH (benign prostatic hyperplasia) Currently stable. Associated Problem(s): GERD (gastroesophageal reflux disease) Stable with medication no issues with dysphagia. Associated Problem(s): Low testosterone in male Patient request a trial of hormone replacement, will place on a patch for testosterone and recheck at follow-up. Associated Problem(s): Type II 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 (CMS/HCC) A1c testing below 7, tolerating medication, encouraged to be active no change. 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 Associated Problem(s): Afib (CMS/HCC) Taking tolerating anticoagulation has routine follow-up with cardiology, CBC stable, no change. Associated Problem(s): Peripheral arterial occlusive disease (CMS/HCC) No current issues with claudication tolerating medication. Associated Problem(s): Mild CAD Tolerating goal-directed medical therapy, no change. Associated Problem(s): Hypertension, essential, benign Blood pressure stable renal function and electrolytes normal. No change. Associated Problem(s): Hyperlipemia Labs stable tolerating statin medication, no change. Associated Problem(s): Chronic diastolic congestive heart failure (CMS/HCC) Follows with cardiology, blood pressure stable, renal function stable, appears to be dry currently, no change in medication. documented in this encounter [facility] Work Phone: 04-30-2023 Evaluation + Plan note Associated Problem(s): Type II 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 (CMS/HCC) A1c testing below 7, tolerating medication, encouraged to be active no change. 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 [facility] Work Phone: 04-30-2023 Evaluation + Plan note Associated Problem(s): Afib (CMS/HCC) Taking tolerating anticoagulation has routine follow-up with cardiology, CBC stable, no change. [facility] Work Phone: 04-30-2023 Evaluation + Plan note Associated Problem(s): Peripheral arterial occlusive disease (CMS/HCC) No current issues with claudication tolerating medication. [facility] Work Phone: 04-30-2023 Evaluation + Plan note Associated Problem(s): Mild CAD Tolerating goal-directed medical therapy, no change. [facility] Work Phone: 04-30-2023 Evaluation + Plan note Associated Problem(s): Hypertension, essential, benign Blood pressure stable renal function and electrolytes normal. No change. [facility] Work Phone: 04-30-2023 Evaluation + Plan note Associated Problem(s): Hyperlipemia Labs stable tolerating statin medication, no change. [facility] Work Phone: 04-30-2023 Evaluation + Plan note Associated Problem(s): Chronic diastolic congestive heart failure (CMS/HCC) Follows with cardiology, blood pressure stable, renal function stable, appears to be dry currently, no change in medication. [facility] Work Phone: 04-30-2023 History of Present illness Narrative Subjective Patient ID: Rocio Sandoval is a 77 y.o. male who presents for 6 MO LABS. HPI No headache, chest pain, shortness of breath, dizziness, lightheadedness, or edema No low blood sugars since last OV, seen opthalmology in the past year, and no numbness or tingling in feet, skin normal. Had pacemaker, last seen cardiology 2 weeks ago, taking and tolerating Xarelto To see rheumatology next month Chronic LBP, sees pain medicine for chronic issues Taking PPI daily without breakthrough symptoms. Reviewed dietary, caffeine, tobacco, alcohol, and NSAID use. No dyspepsia, dysphagia, reflux, melena, or abdominal pain. Some constipation, taking fiber RN doing well, uses Atrovent as needed Patient has been using their CPAP nightly and is experiencing restful sleep, no morning headaches, no witnessed snoring, and notices a difference if they do not use the device. No urology, urine freq/urge, uses Lasix as needed Review of Systems Constitutional: Negative for activity change, appetite change, fatigue and unexpected weight change. HENT: Negative for ear pain, nosebleeds, rhinorrhea, sneezing and trouble swallowing. Respiratory: Negative for cough, shortness of breath and wheezing. Cardiovascular: Negative for chest pain, palpitations and leg swelling. Gastrointestinal: Positive for constipation. Negative for abdominal distention, abdominal pain, diarrhea, nausea and vomiting. Genitourinary: Negative for difficulty urinating. Musculoskeletal: Positive for back pain. Negative for arthralgias and gait problem. Skin: Negative for rash. Neurological: Negative for dizziness, light-headedness, numbness and headaches. Hematological: Negative for adenopathy. Psychiatric/Behavioral: Negative for behavioral problems. All other systems reviewed and are negative. Current Outpatient Medications: acetaminophen (Tylenol) 500 mg capsule, Tylenol 500 MG CAPS Refills: 0, Disp: , Rfl: amiodarone (Pacerone) 100 mg tablet, Take 1 tablet (100 mg) by mouth once daily., Disp: , Rfl: atorvastatin (Lipitor) 40 mg tablet, Take 1 tablet (40 mg) by mouth once daily at bedtime., Disp: 90 tablet, Rfl: 3 B6/folic/B12/coffee/phosphatid (NEURIVA PLUS BRAIN PERFORMANCE ORAL), Take 1 tablet by mouth once daily., Disp: , Rfl: blood sugar diagnostic (Advanced Gluc Meter Test Strip) strip, Inject 1 strip into the skin once daily., Disp: 90 strip, Rfl: 3 empagliflozin (Jardiance) 25 mg, Take 1 tablet (25 mg) by mouth once daily., Disp: 90 tablet, Rfl: 3 fexofenadine (Sulaiman) 180 mg tablet, Take 1 tablet (180 mg) by mouth once daily., Disp: 30 tablet, Rfl: 5 furosemide (Lasix) 20 mg tablet, Take 1 tablet (20 mg) by mouth once daily., Disp: , Rfl: gabapentin (Neurontin) 400 mg capsule, Take 1 capsule (400 mg) by mouth 3 times a day., Disp: , Rfl: ipratropium (Atrovent) 21 mcg (0.03 %) nasal spray, Administer 2 sprays into each nostril in the morning and 2 sprays in the evening., Disp: 30 mL, Rfl: 12 melatonin 5 mg capsule, Take by mouth., Disp: , Rfl: metFORMIN XR (Glucophage-XR) 750 mg 24 hr tablet, Take 1 tablet (750 mg) by mouth 2 times a day., Disp: , Rfl: multivitamin (MULTIPLE VITAMINS ORAL), Take 1 tablet by mouth once daily., Disp: , Rfl: omeprazole (PriLOSEC) [address] capsule, Take 1 capsule (40 mg) by mouth once daily., Disp: 90 capsule, Rfl: 3 rivaroxaban (Xarelto) 20 mg tablet, Take 1 tablet (20 mg) by mouth once daily., Disp: 90 tablet, Rfl: 3 tamsulosin (Flomax) 0.4 mg 24 hr capsule, Take 1 capsule (0.4 mg) by mouth once daily., Disp: 90 capsule, Rfl: 3 traZODone (Desyrel) 50 mg tablet, Take 0.5 tablets (25 mg) by mouth once daily at bedtime. TAKE 0.5 TABLET BEDTIME, Disp: 45 tablet, Rfl: 3 vitamins A,C,B-gfrf-szeizd (Eye Multivitamin) 2,148 mcg-113 mg-45 mg-17.4mg tablet, Take 1 tablet by mouth once daily., Disp: , Rfl: Objective BP 120/60 Pulse 61 Ht 1.854 m (6' 1) Wt 97.8 kg (215 lb 9.6 oz) SpO2 99% BMI 28.44 kg/m Physical Exam Vitals and nursing note reviewed. Constitutional: Appearance: Normal appearance. HENT: Head: Normocephalic and atraumatic. Right Ear: Tympanic membrane, ear canal and external ear normal. Left Ear: Tympanic membrane, ear canal and external ear normal. Nose: Nose normal. Mouth/Throat: Mouth: Mucous membranes are moist. Pharynx: Oropharynx is clear. Cardiovascular: Rate and Rhythm: Normal rate and regular rhythm. Pulses: Normal pulses. Heart sounds: Normal heart sounds. Pulmonary: Effort: Pulmonary effort is normal. Breath sounds: Normal breath sounds. Musculoskeletal: Cervical back: Normal range of motion and neck supple. Neurological: Mental Status: He is alert. Psychiatric: Mood and Affect: Mood normal. Behavior: Behavior normal. Assessment/Plan Problem List Items Addressed This Visit ICD-10-CM BPH (benign prostatic hyperplasia) N40.0 Currently stable. Relevant Orders Follow Up In Primary Care - Established Chronic diastolic congestive heart failure ([facility]) I50.32 Follows with cardiology, blood pressure stable, renal function stable, appears to be dry currently, no change in medication. Relevant Orders Follow Up In Primary Care - Established GERD (gastroesophageal reflux disease) K21.9 Stable with medication no issues with dysphagia. Relevant Orders Follow Up In Primary Care - Established Hyperlipemia E78.5 Labs stable tolerating statin medication, no change. Relevant Orders Follow Up In Primary Care - Established Hypertension, essential, benign I10 Blood pressure stable renal function and electrolytes normal. No change. Relevant Orders Follow Up In Primary Care - Established Albumin , Urine Random Comprehensive Metabolic Panel Mild CAD I25.10 Tolerating goal-directed medical therapy, no change. Relevant Orders Follow Up In Primary Care - Established Comprehensive Metabolic Panel Lipid Panel ALISHA on CPAP G47.33 Patient has been using their CPAP nightly and is experiencing restful sleep, no morning headaches, no witnessed snoring, and notices a difference if they do not use the device. Relevant Orders Follow Up In Primary Care - Established Peripheral arterial occlusive disease ([facility]) I77.9 No current issues with claudication tolerating medication. Relevant Orders Follow Up In Primary Care - Established Sacroiliitis ([facility]) M46.1 Follows with pain management, tolerating gabapentin, no falls. Relevant Orders Follow Up In Primary Care - Established Afib ([facility]) I48.91 Taking tolerating anticoagulation has routine follow-up with cardiology, CBC stable, no change. 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 Type II 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 ([facility]) - Primary E11.9 A1c testing below 7, tolerating medication, encouraged to be active no change. Relevant Orders Follow Up In Primary Care - Established Albumin , Urine Random Comprehensive Metabolic Panel Hemoglobin A1C Thyroid Stimulating Hormone Lipid Panel Low testosterone in male R79.89 Patient request a trial of hormone replacement, will place on a patch for testosterone and recheck at follow-up. Major depressive disorder, single episode, in partial remission (CMS/[facility]) F32.4 Currently stable. Relevant Orders Follow Up In Primary Care - Established Other Visit Diagnoses Codes Low testosterone R79.89 Relevant Medications testosterone (Androderm) 4 mg/24 hr Other Relevant Orders Follow Up In Primary Care - Established Testosterone, total and free documented in this encounter [facility] Work Phone: 04-30-2023 History of Present illness Narrative Associated Order(s): LG Jt Injection/Arthrocentesis: R knee Post-Procedure Diagnose(s): Primary osteoarthritis of right knee [facility] [address] [facility] [address] [facility] [id number] Rocio Sandoval returns to the office today for right knee pain. He reports that originally the left knee been bothering him but now the right knee is more painful and the left feels absolutely fine. He denies any injury to the right knee. He has had a cortisone injection into that right knee in the past. He has been taking OTC pain medications as needed. He denies any instability of that knee, no reports of the knee giving out or locking up on the patient. The patient's past medical history, surgical history, social history, family history, medications and allergies were reviewed with the patient today and are available in the chart for further review. Allergies Allergen Reactions Morphine Nausea and vomiting He was 15 when he had a reaction. It was actually anesthetics. No Known Allergies Current Outpatient Medications: acetaminophen (TYLENOL ORAL), Take 650 mg by mouth., Disp: , Rfl: amiodarone (CORDARONE) 200 MG tablet, Take 1 (one) tablet (200 mg total) by mouth at bedtime ., Disp: , Rfl: ammonium lactate (AMLACTIN) 12 % cream, Apply topically 2 (two) times a day ., Disp: 385 g, Rfl: 0 atorvastatin (LIPITOR) 40 MG tablet, Take 1 (one) tablet (40 mg total) by mouth nightly ., Disp: , Rfl: blood sugar diagnostic (glucose blood) strips, by Miscellaneous route ., Disp: , Rfl: empagliflozin (Jardiance) 25 mg Tab, Take by mouth ., Disp: , Rfl: fexofenadine (SULAIMAN) 180 MG tablet, TAKE 1 TABLET (180 MG) BY MOUTH ONCE DAILY., Disp: , Rfl: furosemide (LASIX) 20 MG tablet, Take 1 (one) tablet (20 mg total) by mouth every other day ., Disp: , Rfl: gabapentin (NEURONTIN) 400 MG capsule, Take 1 (one) capsule (400 mg total) by mouth 3 (three) times a day ., Disp: , Rfl: lisinopril (PRINIVIL,ZESTRIL) 20 MG tablet, 1 (one) tablet (20 mg total) every morning Reasons: high blood pressure., Disp: , Rfl: MELATONIN ORAL, Take by mouth ., Disp: , Rfl: metFORMIN (GLUCOPHAGE-XR) 750 MG 24 hr tablet, Take 1 (one) tablet (750 mg total) by mouth 2 (two) times a day Take 1 tab bid ., Disp: , Rfl: omeprazole (PRILOSEC) 40 MG capsule, , Disp: , Rfl: rivaroxaban (XARELTO) 20 mg Tab, Take 1 (one) tablet (20 mg total) by mouth daily ., Disp: , Rfl: tamsulosin (FLOMAX) 0.4 mg capsule, every morning before breakfast ., Disp: , Rfl: therapeutic multivitamin (THERAGRAN) tablet, Take 1 (one) tablet by mouth daily ., Disp: , Rfl: traZODone (DESYREL) 50 MG tablet, TAKE 1 2 (ONE HALF) TABLET BY MOUTH ONCE DAILY AT BEDTIME, Disp: , Rfl: Past Medical History: Diagnosis Date A-fib ([facility]) Acquired hammer toe Allergy Arthritis Back pain Cataract removed Diabetes mellitus, type 2 ([facility]) Dizzy spells Foot cramps Foot pain, bilateral Fracture of phalanx of toe Frequent urination GERD (gastroesophageal reflux disease) Hiatal hernia High blood pressure High cholesterol History of stress test 03/08/2018 scheduled at [facility] Kidney stones 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 Nephrolithiasis passed Night sweats Numbness in both hands Obesity OM (onychomycosis) PAD (peripheral artery disease) ([facility]) Peripheral neuropathy numbness fingers, tingling and some numbness left leg and foot Plantar fasciitis right Pneumonia in infectious disease PONV (postoperative nausea and vomiting) Radiculopathy of lumbar region Ringing in ears Shortness of breath on exertion Sinus pain Swollen feet Tinea pedis Tired feet Urinary urgency Venous insufficiency of both lower extremities Vision problem Past Surgical History: Procedure Laterality Date ABLATION WITH PHENOL BACK SURGERY 1960 LUMBAR BURSECTOMY ELBOW Left 01/05/2023 Procedure: Left elbow bursectomy; Surgeon: Elías Hsu MD; Location: Main OR; Service: Orthopedic CARDIAC PACEMAKER PLACEMENT CATARACT EXT/ECCE Right COLONOSCOPY X 3 ESOPHAGOGASTRODUODENOSCOPY HERNIA REPAIR Right INGUINAL LAMINECTOMY DECOMP LUMBAR MULTI LEVEL Right 03/13/2018 Procedure: RIGHT L2-L5 LAMINECTOMY DECOMPRESSION; Surgeon: Kailey Hilton MD; Location: [facility] Main OR; Service: Orthopedic RETINAL DETACHMENT SURGERY TOTAL KNEE ARTHROPLASTY Left 06/2016 Social History Socioeconomic History Marital status: Tobacco Use Smoking status: Never Smokeless tobacco: Never Vaping Use Vaping Use: Never used Substance and Sexual Activity Alcohol use: No Alcohol/week: 0.0 standard drinks of alcohol Drug use: No ROS: Review of Systems Musculoskeletal: Positive for arthralgias and joint swelling. Negative for myalgias. Imaging: B/L Knees: Right knee: No acute fracture or dislocation. There are moderate tricompartmental degenerative changes of the right knee. Chondrocalcinosis noted in the medial and lateral compartments. Left knee arthroplasty in good position without evidence of hardware loosening or 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s. Assessment/Plan: Inje to the right knee per patient request. I did this without 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s and he tolerated this well. I am more than happy to see him back in 3 months or as needed for another injection. LG Jt Injection/Arthrocentesis: R knee Performed by: Yaritza Luna CNP Authorized by: Yaritza Luna CNP CPT 63026 - Large Joint Arthrocentesis: Consent given by: Patient Time out: Immediately prior to the procedure a time out was called Physician or proceduralist has discussed critical or nonroutine steps, procedure duration and anticipated blood loss: Yes Supporting Documentation: Indications: Pain, joint swelling and diagnostic evaluation Procedure Details: Location: Knee Site: R knee Prep: patient was prepped and draped in usual sterile fashion Needle size: 22 G Approach: Anterolateral Medications: 40 mg triamcinolone acetonide 40 mg/mL Anesthetic used: Lidocaine 1% Anesthetic amount (mL): 2 Patient tolerance: Patient tolerated the procedure well with no immediate 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s documented in this encounter [facility] 04-12-2023 History of Present illness Narrative Images from the original note were not included. Subjective Patient ID: Rocio Sandoval is a 77 y.o. male. [employer], self-referral for cerumen impaction. Patient has not had his ears cleared of wax before, so he wanted to establish. No hx of ear surgery. Denies hearing difficulty. 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 The following portions of the patient's history were reviewed and updated as appropriate: allergies, current medications, past family history, past medical history, past social history, past surgical history, and problem list. Review of Systems Constitutional: Negative for chills and diaphoresis. HENT: Negative for ear discharge and ear pain. Eyes: Negative for discharge and redness. Respiratory: Negative for apnea and cough. Cardiovascular: Negative for chest pain and palpitations. Musculoskeletal: Negative for neck pain and neck stiffness. Skin: Negative for color change and pallor. Allergic/Immunologic: Negative for immunocompromised state. Neurological: Negative for facial asymmetry and numbness. Hematological: Does not bruise/bleed easily. Psychiatric/Behavioral: Negative for agitation and confusion. Objective Physical Exam Vitals and nursing note reviewed. Constitutional: Appearance: Normal appearance. He is well-developed. He is not ill-appearing. HENT: Head: Normocephalic and atraumatic. Right Ear: Tympanic membrane, ear canal and external ear normal. No drainage or swelling. Left Ear: Tympanic membrane, ear canal and external ear normal. No drainage or swelling. Ears: Comments: Small flake of cerumen removed in office Nose: Nose normal. No mucosal edema. Mouth/Throat: Lips: [place]. Mouth: Mucous membranes are moist. Dentition: Normal dentition. Pharynx: Uvula midline. No oropharyngeal exudate or posterior oropharyngeal erythema. Eyes: General: Lids are normal. Left eye: No discharge. Conjunctiva/sclera: Conjunctivae normal. Left eye: No chemosis. Pupils: Pupils are equal, round, and reactive to light. Neck: Thyroid: No thyroid mass or thyromegaly. Pulmonary: Breath sounds: No stridor. Musculoskeletal: Cervical back: Normal range of motion and neck supple. No edema. Normal range of motion. Neurological: Mental Status: He is alert. Psychiatric: Behavior: Behavior is cooperative. Assessment/Plan: Diagnoses and all orders for this visit: Excessive cerumen in right ear canal Small amount of wax removed from right ear. Follow up as needed . He is encouraged to call with any issues. No changes in hearing per patient. documented in this encounter [facility] 04-12-2023 Instructions Trey Georges Jr., DO - 04/12/2023 10:56 AM EDT Assessment/Plan: Diagnoses and all orders for this visit: Excessive cerumen in right ear canal Small amount of wax removed from right ear. Follow up as needed . He is encouraged to call with any issues. No changes in hearing per patient. documented in this encounter [facility] 03-27-2023 Evaluation + Plan note Associated Problem(s): Afib (CMS/HCC) Tolerating anticoagulation has regular follow-up with cardiology. [facility] Work Phone: 03-27-2023 Evaluation + Plan note Associated Problem(s): Hypertension, essential, benign Blood pressure and renal function are both stable. [facility] Work Phone: 03-27-2023 Miscellaneous Notes Associated Problem(s): Afib (CMS/HCC) Tolerating anticoagulation has regular follow-up with cardiology. Associated Problem(s): Hypertension, essential, benign Blood pressure and renal function are both stable. documented in this encounter [facility] Work Phone: 03-27-2023 History of Present illness Narrative Subjective Patient ID: Rocio Sandoval is a 77 y.o. male who presents for ER F/U Covid. HPI Was in ER 03/16 for COVID-19, no RX Feeling better, some head congestion (some production), improving, no coughing/SOB, some fatigue, no nausea, appetite OK Stopped lisinopril due to dizziness Review of Systems Constitutional: Negative for activity change, appetite change, fatigue and unexpected weight change. HENT: Negative for ear pain, nosebleeds, rhinorrhea, sneezing and trouble swallowing. Respiratory: Positive for cough. Negative for shortness of breath and wheezing. Cardiovascular: Negative for chest pain, palpitations and leg swelling. Gastrointestinal: Negative for abdominal distention, abdominal pain, constipation, diarrhea, nausea and vomiting. Genitourinary: Negative for difficulty urinating. Musculoskeletal: Negative for arthralgias. Skin: Negative for rash. Neurological: Negative for dizziness, light-headedness, numbness and headaches. Hematological: Negative for adenopathy. Psychiatric/Behavioral: Negative for behavioral problems. All other systems reviewed and are negative. Objective BP 120/60 Pulse 65 Ht 1.854 m (6' 1) Wt 99.3 kg (219 lb) SpO2 97% BMI 28.89 kg/m Physical Exam Vitals and nursing note reviewed. Constitutional: Appearance: Normal appearance. HENT: Head: Normocephalic and atraumatic. Right Ear: Tympanic membrane, ear canal and external ear normal. Left Ear: Tympanic membrane, ear canal and external ear normal. Nose: Nose normal. Mouth/Throat: Mouth: Mucous membranes are moist. Pharynx: Oropharynx is clear. Cardiovascular: Rate and Rhythm: Normal rate and regular rhythm. Pulses: Normal pulses. Heart sounds: Normal heart sounds. Pulmonary: Effort: Pulmonary effort is normal. Breath sounds: Normal breath sounds. Musculoskeletal: Cervical back: Normal range of motion and neck supple. Neurological: Mental Status: He is alert. Psychiatric: Mood and Affect: Mood normal. Behavior: Behavior normal. Assessment/Plan Problem List Items Addressed This Visit ICD-10-CM BPH (benign prostatic hyperplasia) N40.0 Relevant Medications tamsulosin (Flomax) 0.4 mg 24 hr capsule GERD (gastroesophageal reflux disease) K21.9 Relevant Medications omeprazole (PriLOSEC) [address] capsule Hyperlipemia - Primary E78.5 Relevant Medications atorvastatin (Lipitor) 40 mg tablet Hypertension, essential, benign I10 Blood pressure and renal function are both stable. Afib ([facility]) I48.91 Tolerating anticoagulation has regular follow-up with cardiology. 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 Call if any increase or change in symptoms. documented in this encounter [facility] Work Phone: 02-28-2023 History of Present illness Narrative Patient came in office, on his elbow he had a bursectomy. Patient had a internal stitch coming out. When I went to trim it it actually pulled out the whole way. No bleeding, no drainage. Advised to cover with a bandage if going to be in a dirty work environment. documented in this encounter [facility] 02-06-2023 History of Present illness Narrative On a scale of 0 to 10, the patient rates the pain at 4.Pain Location: Low Back Pain and LEFT FOOT.Pain Quality: Aching.Sensory/ Motor: Stinging, Pins and Wahoo and LEFT FOOT.Timing/Duration: Intermittent and > 12 weeks duration.Controlled Substance:I have personally reviewed the [place] report for ROCIO SANDOVAL. I have considered the risks of abuse, dependence, addiction and diversion.Exacerbating Factors: rest, motion, repetitive motion, sitting, standing, walking and ADL.Alleviating Factors: Medications, Moist Heat, Repositioning.24 Hour Behavior:Symptoms are the same in the am.Symptoms are the same as the day progresses.Symptoms are the same in the pm.Symptoms are worse when lying down. LEFT FOOT. [facility] Phone: 02-05-2023 History of Present illness Narrative On a scale of 0 to 10, the patient rates the pain at 4.Pain Location: Low Back Pain and LEFT FOOT.Pain Quality: Aching.Sensory/ Motor: Stinging, Pins and Wahoo and LEFT FOOT.Timing/Duration: Intermittent and > 12 weeks duration.Exacerbating Factors: rest, motion, repetitive motion, sitting, standing, walking and ADL.Alleviating Factors: Medications, Moist Heat, Repositioning.24 Hour Behavior:Symptoms are the same in the am.Symptoms are the same as the day progresses.Symptoms are the same in the pm.Symptoms are worse when lying down. LEFT FOOT. [facility]: 02-02-2023 History of Present illness Narrative Nail care, left great toe pain Patient is a pleasant 77 year-old male who comes in today for diabetic nail care. His diabetes is managed by primary care including Dr. Kin Anne. Hemoglobin A1c is 7.5% with some tingling burning and loss of sensation. Physical Vascular: DP pulses are palpable 2 out of 4. PT pulses are nonpalpable bilaterally. CFT is fair with mild edema. Compression socks are helping. Feet are warm to cool proximal to distal. Hair growth absent to the lower extremity and skin is shiny atrophic dysvascular. Nails one left and one right are elongated thickened mycotic crumbling and dystrophic. Nails left foot 2345 and right foot 2345 are elongated and thickened and mycotic. Neuro: Sharp dull is blunted Babinski's is fair. Musculoskeletal: Muscle strength is 5/5 with fair tone, can easily wiggle toes without any clicking or catching. Left great toe is painful with compression of the first MPJ though the IPJ is full and pain-free. Otherwise can easily wiggle toes without any clicking or catching Assessment and plan: Patient is a pleasant 77-year-old male, diabetes with peripheral arterial disease, onychomycosis to two nails and onychodystrophy to eight nails. -He does qualify for nail care given his peripheral arterial disease and risk. Procedure: Nails left foot one 2345 bilaterally were sharply debrided and debulk in height and length with a sharp pair of nail nippers consistent with a q8 modifier. Follow-up in 3 months for foot nail care. documented in this encounter [facility] 12-31-2022 History of Present illness Narrative Associated Order(s): SM Jt Injection/Arthrocentesis: L thumb MCP; SM Jt Injection/Arthrocentesis: R thumb MCP Post-Procedure Diagnose(s): Arthritis of carpometacarpal (CMC) joint of both thumbs [facility] [address] [facility] [address] [facility] [id number] Chief Complaint Patient presents with Left Hand - Pain Right Hand - Pain Rocio Sandoval returns to the office today for bilateral hand pain. He states that both hands are hurting but the left one has become more swollen and painful. He is having pain across the whole hand and fingers. He denies any injury. He is also complaining of pain towards the base of both thumbs. He has received injections in bilateral CMC joints in the past. He has been very active outside, lots of repetitious movements and heavy lifting. He doesn't know if that is something that could have aggravated the hand pain. He has been taking otc pain medications as needed. He is limited as to what he can take due to having an upcoming surgery on his elbow. The patient's past medical history, surgical history, social history, family history, medications and allergies were reviewed with the patient today and are available in the chart for further review. Allergies Allergen Reactions Morphine Nausea and vomiting He was 15 when he had a reaction. It was actually anesthetics. No Known Allergies Current Outpatient Medications: acetaminophen (TYLENOL ORAL), Take 650 mg by mouth., Disp: , Rfl: amiodarone (CORDARONE) 200 MG tablet, Take 1 (one) tablet (200 mg total) by mouth at bedtime ., Disp: , Rfl: ammonium lactate (AMLACTIN) 12 % cream, Apply topically 2 (two) times a day ., Disp: 385 g, Rfl: 0 atorvastatin (LIPITOR) 40 MG tablet, Take 1 (one) tablet (40 mg total) by mouth nightly ., Disp: , Rfl: blood sugar diagnostic (glucose blood) strips, by Miscellaneous route ., Disp: , Rfl: coffee xt/phosphatidyl serine (NEURIVA ORIGINAL ORAL), Take by mouth ., Disp: , Rfl: empagliflozin (Jardiance) 25 mg Tab, Take by mouth ., Disp: , Rfl: fexofenadine (SULAIMAN) 180 MG tablet, TAKE 1 TABLET (180 MG) BY MOUTH ONCE DAILY., Disp: , Rfl: furosemide (LASIX) 20 MG tablet, Take 1 (one) tablet (20 mg total) by mouth every other day ., Disp: , Rfl: gabapentin (NEURONTIN) 400 MG capsule, Take 1 (one) capsule (400 mg total) by mouth 3 (three) times a day ., Disp: , Rfl: lisinopril (PRINIVIL,ZESTRIL) 20 MG tablet, 1 (one) tablet (20 mg total) every morning Reasons: high blood pressure., Disp: , Rfl: MELATONIN ORAL, Take by mouth ., Disp: , Rfl: metFORMIN (GLUCOPHAGE-XR) 750 MG 24 hr tablet, Take 1 (one) tablet (750 mg total) by mouth 2 (two) times a day Take 1 tab bid ., Disp: , Rfl: omeprazole (PRILOSEC) 40 MG capsule, , Disp: , Rfl: rivaroxaban (XARELTO) 20 mg Tab, Take 1 (one) tablet (20 mg total) by mouth daily ., Disp: , Rfl: tamsulosin (FLOMAX) 0.4 mg capsule, every morning before breakfast ., Disp: , Rfl: therapeutic multivitamin (THERAGRAN) tablet, Take 1 (one) tablet by mouth daily ., Disp: , Rfl: traZODone (DESYREL) 50 MG tablet, TAKE 1 2 (ONE HALF) TABLET BY MOUTH ONCE DAILY AT BEDTIME, Disp: , Rfl: Past Medical History: Diagnosis Date A-fib ([facility]) Acquired hammer toe Allergy Arthritis Back pain Cataract removed Diabetes mellitus, type 2 ([facility]) Dizzy spells Foot cramps Foot pain, bilateral Fracture of phalanx of toe Frequent urination GERD (gastroesophageal reflux disease) Hiatal hernia High blood pressure High cholesterol History of stress test 03/08/2018 scheduled at [facility] Kidney stones 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 Nephrolithiasis passed Night sweats Numbness in both hands Obesity OM (onychomycosis) PAD (peripheral artery disease) ([facility]) Peripheral neuropathy numbness fingers, tingling and some numbness left leg and foot Plantar fasciitis right Pneumonia in infectious disease PONV (postoperative nausea and vomiting) Radiculopathy of lumbar region Ringing in ears Shortness of breath on exertion Sinus pain Swollen feet Tinea pedis Tired feet Urinary urgency Venous insufficiency of both lower extremities Vision problem Past Surgical History: Procedure Laterality Date ABLATION WITH PHENOL BACK SURGERY 1960 LUMBAR CARDIAC PACEMAKER PLACEMENT CATARACT EXT/ECCE Right COLONOSCOPY X 3 ESOPHAGOGASTRODUODENOSCOPY HERNIA REPAIR Right INGUINAL LAMINECTOMY DECOMP LUMBAR MULTI LEVEL Right 03/13/2018 Procedure: RIGHT L2-L5 LAMINECTOMY DECOMPRESSION; Surgeon: Kailey Hilton MD; Location: [facility] Main OR; Service: Orthopedic RETINAL DETACHMENT SURGERY TOTAL KNEE ARTHROPLASTY Left 06/2016 Social History Socioeconomic History Marital status: Tobacco Use Smoking status: Never Smokeless tobacco: Never Substance and Sexual Activity Alcohol use: No Alcohol/week: 0.0 standard drinks of alcohol Drug use: No ROS: Review of Systems Musculoskeletal: Positive for arthralgias, joint swelling and myalgias. PE: Physical Exam Musculoskeletal: General: Tenderness present. Right hand: Bony tenderness present. Normal strength. Normal capillary refill. Normal pulse. Left hand: Swelling, tenderness and bony tenderness present. Decreased range of motion. Normal strength. Normal capillary refill. Normal pulse. Imaging: L Hand: Osteoarthritis is severe at the 1st CMC with intra-articular calcific bodies, mild at most of the interphalangeal joints. R Hand: Mild osteoarthritis at the radiocarpal joint, 1st CMC, triscaphe joint, and most of the interphalangeal joints. No acute soft tissue abnormality. Minimal TFCC chondrocalcinosis. Assessment/Plan: After examination and reviewing of the patient x-ray images, we discussed treatment options. I did offer him cortisone injections to both CMC joints which he gladly accepted. I did this without 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s and he tolerated this well. If there is no improvement in 2 weeks, I will see him back for follow up. SM Jt Injection/Arthrocentesis: L thumb MCP Performed by: Yaritza Luna CNP Authorized by: Yaritza Luna CNP CPT 63846 - Small Joint Arthrocentesis: Consent given by: Patient Time out: Immediately prior to the procedure a time out was called Physician or proceduralist has discussed critical or nonroutine steps, procedure duration and anticipated blood loss: Yes Supporting Documentation: Indications: Pain, joint swelling and diagnostic evaluation Procedure Details: Location: Thumb Site: L thumb MCP Prep: patient was prepped and draped in usual sterile fashion Needle size: 25 G Approach: Dorsal Medications: 10 mg triamcinolone acetonide 40 mg/mL Anesthetic used:: Lidocaine 1% Anesthetic amount (mL): 1 Patient tolerance: Patient tolerated the procedure well with no immediate 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s SM Jt Injection/Arthrocentesis: R thumb MCP Performed by: Yaritza Luna CNP Authorized by: Yaritza Luna CNP CPT 57162 - Small Joint Arthrocentesis: Consent given by: Patient Time out: Immediately prior to the procedure a time out was called Physician or proceduralist has discussed critical or nonroutine steps, procedure duration and anticipated blood loss: Yes Supporting Documentation: Indications: Pain, joint swelling and diagnostic evaluation Procedure Details: Location: Thumb Site: R thumb MCP Prep: patient was prepped and draped in usual sterile fashion Needle size: 25 G Approach: Dorsal Medications: 10 mg triamcinolone acetonide 40 mg/mL Anesthetic used:: Lidocaine 1% Anesthetic amount (mL): 1 Patient tolerance: Patient tolerated the procedure well with no immediate 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s documented in this encounter [facility] 12-17-2022 History of Present illness Narrative [facility] [address] [facility] [address] [facility] [id number] Chief Complaint Patient presents with Results MRI review Rocio Sandoval returns to the office today to review his L elbow MRI. I have had the pleasure of seeing this shaneka gentleman for chronic left elbow olecranon bursitis. We have tried to treat this with conservative measures but unfortunately, he continues to have recurrence. The elbow is becoming more painful and tender to touch. We then move forward with a MRI for further diagnostic evaluation and he is here today to review those results. He denies any new injury to the elbow. He is diabetic with a last known HA1C of 6.9 this past Jul. The patient's past medical history, surgical history, social history, family history, medications and allergies were reviewed with the patient today and are available in the chart for further review. Allergies Allergen Reactions Morphine Nausea and vomiting He was 15 when he had a reaction. It was actually anesthetics. No Known Allergies Current Outpatient Medications: acetaminophen (TYLENOL ORAL), Take 650 mg by mouth., Disp: , Rfl: amiodarone (CORDARONE) 200 MG tablet, Take 1 (one) tablet (200 mg total) by mouth at bedtime ., Disp: , Rfl: ammonium lactate (AMLACTIN) 12 % cream, Apply topically 2 (two) times a day ., Disp: 385 g, Rfl: 0 atorvastatin (LIPITOR) 40 MG tablet, Take 1 (one) tablet (40 mg total) by mouth nightly ., Disp: , Rfl: blood sugar diagnostic (glucose blood) strips, by Miscellaneous route ., Disp: , Rfl: coffee xt/phosphatidyl serine (NEURIVA ORIGINAL ORAL), Take by mouth ., Disp: , Rfl: empagliflozin (Jardiance) 25 mg Tab, Take by mouth ., Disp: , Rfl: fexofenadine (SULAIMAN) 180 MG tablet, TAKE 1 TABLET (180 MG) BY MOUTH ONCE DAILY., Disp: , Rfl: furosemide (LASIX) 20 MG tablet, Take 1 (one) tablet (20 mg total) by mouth every other day ., Disp: , Rfl: gabapentin (NEURONTIN) 400 MG capsule, Take 1 (one) capsule (400 mg total) by mouth 3 (three) times a day ., Disp: , Rfl: lisinopril (PRINIVIL,ZESTRIL) 20 MG tablet, 1 (one) tablet (20 mg total) every morning Reasons: high blood pressure., Disp: , Rfl: MELATONIN ORAL, Take by mouth ., Disp: , Rfl: metFORMIN (GLUCOPHAGE-XR) 750 MG 24 hr tablet, Take 1 (one) tablet (750 mg total) by mouth 2 (two) times a day Take 1 tab bid ., Disp: , Rfl: omeprazole (PRILOSEC) 40 MG capsule, , Disp: , Rfl: rivaroxaban (XARELTO) 20 mg Tab, Take 1 (one) tablet (20 mg total) by mouth daily ., Disp: , Rfl: tadalafiL 20 MG tablet, Take by mouth ., Disp: , Rfl: tamsulosin (FLOMAX) 0.4 mg capsule, every morning before breakfast ., Disp: , Rfl: therapeutic multivitamin (THERAGRAN) tablet, Take 1 (one) tablet by mouth daily ., Disp: , Rfl: traZODone (DESYREL) 50 MG tablet, TAKE 1 2 (ONE HALF) TABLET BY MOUTH ONCE DAILY AT BEDTIME, Disp: , Rfl: Past Medical History: Diagnosis Date A-fib ([facility]) Acquired hammer toe Allergy Arthritis Back pain Cataract removed Diabetes mellitus, type 2 ([facility]) Dizzy spells Foot cramps Foot pain, bilateral Fracture of phalanx of toe Frequent urination GERD (gastroesophageal reflux disease) Hiatal hernia High blood pressure High cholesterol History of stress test 03/08/2018 scheduled at [facility] Kidney stones 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 Nephrolithiasis passed Night sweats Numbness in both hands Obesity OM (onychomycosis) PAD (peripheral artery disease) ([facility]) Peripheral neuropathy numbness fingers, tingling and some numbness left leg and foot Plantar fasciitis right Pneumonia in infectious disease PONV (postoperative nausea and vomiting) Radiculopathy of lumbar region Ringing in ears Shortness of breath on exertion Sinus pain Swollen feet Tinea pedis Tired feet Urinary urgency Venous insufficiency of both lower extremities Vision problem Past Surgical History: Procedure Laterality Date ABLATION WITH PHENOL BACK SURGERY 1960 LUMBAR CARDIAC PACEMAKER PLACEMENT CATARACT EXT/ECCE Right COLONOSCOPY X 3 ESOPHAGOGASTRODUODENOSCOPY HERNIA REPAIR Right INGUINAL LAMINECTOMY DECOMP LUMBAR MULTI LEVEL Right 03/13/2018 Procedure: RIGHT L2-L5 LAMINECTOMY DECOMPRESSION; Surgeon: Kailey Hilton MD; Location: [facility] Main OR; Service: Orthopedic RETINAL DETACHMENT SURGERY TOTAL KNEE ARTHROPLASTY Left 06/2016 Social History Socioeconomic History Marital status: Tobacco Use Smoking status: Never Smokeless tobacco: Never Substance and Sexual Activity Alcohol use: No Alcohol/week: 0.0 standard drinks of alcohol Drug use: No Imaging: L Elbow: Common extensor tendinosis without tear. Moderate common flexor tendinosis with low-grade interstitial partial tearing. Olecranon bursitis. Assessment/Plan: After reviewing of the patient MRI images, we discussed continued treatment options. We have aspirated and injection the elbow multiple times only to have recurrence. At this time, the patient wishes to move forward with a bursectomy of the left elbow. The office will contact him to schedule surgery in 10-14 days. documented in this encounter [facility] 12-14-2022 History of Present illness Narrative 77 Y M with PMHX of DM, HTN, A fibrillation (on xarelto, s/p ablation), has cardiac pacemaker, ALISHA returns for follow up.Presenting symptoms:Patient states couple months ago he started to experience localized pain, swelling, stiffness around the left wrist and dorsum of the hand with associated difficulty making a fist. The symptoms are intermittent, the stiffness improves with activity and mostly localized to the left with mild symptoms on the right. 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 He does not take any Tylenol or NSAIDs on regular basis.3 weeks ago he was working in yard chopping wood and started to have allergy symptoms for which he recently saw his primary care doctor and was prescribed prednisone 20 mg once a day. Patient states he started this last night and did notice an improvement in the stiffness swelling and pain at his wrist and the hand.He denies significant symptoms of neck pain, shoulder pain, hip involvement. He has chronic low back pain related to degenerative disc disease and has had back surgeries in the past (last three years ago).History of left knee replacement. He currently complains of intermittent right knee pain. No significant swellingHe has chronic neuropathy in left foot- on gabapentin 600mg 3 times a dayHas been taking tylenol 1 tab at night and it helps.Has had issues with left elbow bursitis sees orthopedics. This has previously been drained 3 times however recurs and more recently had a procedure done with removal of the bursa sac. It appears to be healing but he still has stitches in place.He denies prior history of gout, unsure if he has had fluid analysis on the aspirations/bursa. Denies recent fevers.Pertinent SHX: Other than left knee replacement, back surgery denies other joint surgeriesSocHX: Denies smoking, ETOH use or recreational drug use.Amiodarone was started recently, no other new medications. He is on a stable dose of atorvastatin.02/12/23: Pt reports doing well, he takes Tylenol 1gm daily and it has been helping with joint pain in his hands and at the knees. No knee swelling. Denies any other symptoms today. [id number] [place] [address] DO Work Phone: 12-07-2022 Evaluation + Plan note Associated Problem(s): Chronic rhinitis Try fexofenadine 180 mg once a day, continue with nasal spray. [facility] Work Phone: 12-07-2022 Miscellaneous Notes Associated Problem(s): Chronic rhinitis Try fexofenadine 180 mg once a day, continue with nasal spray. documented in this encounter [facility] Work Phone: 12-07-2022 History of Present illness Narrative Subjective Patient ID: Rocio Sandoval is a 77 y.o. male who presents for Dizziness (persistent). HPI Dizziness for the past month, worse when bends over, no issus walking or sleeping, no vertigo, no SOB/CP No palpitations, no medicine changes, has taken lisinopril for the past 2 days (some better) Review of Systems Constitutional: Negative for activity change, appetite change, chills, fatigue and fever. HENT: Negative for congestion, postnasal drip, rhinorrhea, sinus pressure, sinus pain, sneezing and sore throat. Respiratory: Negative for cough, chest tightness and shortness of breath. Cardiovascular: Negative for chest pain, palpitations and leg swelling. Gastrointestinal: Negative for abdominal pain, constipation, diarrhea, nausea and vomiting. Neurological: Positive for dizziness and light-headedness. Negative for headaches. Objective BP 100/60 Pulse 68 Ht 1.854 m (6' 1) Wt 101 kg (223 lb 6.4 oz) SpO2 98% BMI 29.47 kg/m Physical Exam Vitals and nursing note reviewed. Constitutional: Appearance: Normal appearance. Cardiovascular: Rate and Rhythm: Normal rate and regular rhythm. Pulses: Normal pulses. Heart sounds: Normal heart sounds. Pulmonary: Effort: Pulmonary effort is normal. Breath sounds: Normal breath sounds. Neurological: Mental Status: He is alert. Psychiatric: Mood and Affect: Mood normal. Behavior: Behavior normal. Assessment/Plan Problem List Items Addressed This Visit Infectious/Inflammatory Chronic rhinitis - Primary Try fexofenadine 180 mg once a day, continue with nasal spray. Relevant Medications fexofenadine (Sulaiman) 180 mg tablet Other Visit Diagnoses Dizziness Suspect could be related to blood pressure. Discontinue lisinopril, treat allergies more aggressively. Call if not improving in 1 week documented in this encounter [facility] Work Phone: 11-26-2022 History of Present illness Narrative 77 Y M with PMHX of DM, HTN, A fibrillation (on xarelto, s/p ablation, has cardiac pacemaker, ALISHA presents for evaluation of joint pain and swelling.Presenting symptoms:Patient states couple months ago he started to experience localized pain, swelling, stiffness around the left wrist and dorsum of the hand with associated difficulty making a fist. The symptoms are intermittent the stiffness improves with activity and mostly localized to the left with mild symptoms on the right. 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 He does not take any Tylenol or NSAIDs on regular basis.3 weeks ago he was working in yard chopping wood and started to have allergy symptoms for which he recently saw his primary care doctor and was prescribed prednisone 20 mg once a day. Patient states he started this last night and did notice an improvement in the stiffness swelling and pain at his wrist and the hand.He denies significant symptoms of neck pain, shoulder pain, hip involvement. He has chronic low back pain related to degenerative disc disease and has had back surgeries in the past (last three years ago).History of left knee replacement. He currently complains of intermittent right knee pain. No significant swellingHe has chronic neuropathy in left foot- gabapentin 600mg 3 times a dayHas been taking tylenol 1 tab at night and it helps.Has had issues with left elbow bursitis sees orthopedics. This has previously been drained 3 times however recurs and more recently had a procedure done with removal of the bursa sac. It appears to be healing but he still has stitches in place.He denies prior history of gout, unsure if he has had fluid analysis on the aspirations/bursaDenies recent fevers.Pertinent SHX: Other than left knee replacement, back surgery denies other joint surgeriesSocHX: Denies smoking, ETOH use or recreational drug use.Amiodarone was started recently, no other new medications. He is on a stable dose of atorvastatin. OG-[id number] lela Cardenas [id number] DO Work Phone: 11-07-2022 History of Present illness Narrative Associated Order(s): MD Linares Injection/Arthrocentesis: L olecranon bursa Post-Procedure Diagnose(s): Olecranon bursitis of left elbow [facility] [address] [facility] [address] [facility] [id number] Chief Complaint Patient presents with Left Elbow - Joint Swelling, Follow-up Rocio Allred Jaime returns to the office today for follow-up on the left elbow joint. Unfortunately he has started to have increased swelling in that left elbow. We have drained it and injected the left elbow multiple times. Last time I saw him in the office for this was this past August. He denies any new injury to the elbow. He reports that it started to swell over the past couple of weeks. We had discussed possible surgical intervention if this continues to happen. We had ordered a MRI for further evaluation of the left elbow but unfortunately there was a miscommunication and the patient was concerned that the MRI would not be compatible with his pacemaker. He was told by the local hospital that they would have to send him to [place] in order to do this. So, today he would like to see about draining the elbow. He denies any warmth or redness to that elbow. He denies any fevers or overall feeling of malaise or sickness. The patient's past medical history, surgical history, social history, family history, medications and allergies were reviewed with the patient today and are available in the chart for further review. Allergies Allergen Reactions Morphine Nausea and vomiting He was 15 when he had a reaction. It was actually anesthetics. No Known Allergies Current Outpatient Medications: acetaminophen (TYLENOL ORAL), Take 650 mg by mouth., Disp: , Rfl: amiodarone (CORDARONE) 200 MG tablet, Take 1 (one) tablet (200 mg total) by mouth at bedtime ., Disp: , Rfl: ammonium lactate (AMLACTIN) 12 % cream, Apply topically 2 (two) times a day ., Disp: 385 g, Rfl: 0 atorvastatin (LIPITOR) 40 MG tablet, Take 1 (one) tablet (40 mg total) by mouth nightly ., Disp: , Rfl: blood sugar diagnostic (glucose blood) strips, by Miscellaneous route ., Disp: , Rfl: coffee xt/phosphatidyl serine (NEURIVA ORIGINAL ORAL), Take by mouth ., Disp: , Rfl: empagliflozin (Jardiance) 25 mg Tab, Take by mouth ., Disp: , Rfl: furosemide (LASIX) 20 MG tablet, Take 1 (one) tablet (20 mg total) by mouth every other day ., Disp: , Rfl: gabapentin (NEURONTIN) 400 MG capsule, Take 1 (one) capsule (400 mg total) by mouth 3 (three) times a day ., Disp: , Rfl: lisinopril (PRINIVIL,ZESTRIL) 20 MG tablet, 1 (one) tablet (20 mg total) every morning Reasons: high blood pressure., Disp: , Rfl: MELATONIN ORAL, Take by mouth ., Disp: , Rfl: metFORMIN (GLUCOPHAGE-XR) 750 MG 24 hr tablet, Take 1 (one) tablet (750 mg total) by mouth 2 (two) times a day Take 1 tab bid ., Disp: , Rfl: omeprazole (PRILOSEC) 40 MG capsule, , Disp: , Rfl: rivaroxaban (XARELTO) 20 mg Tab, Take 1 (one) tablet (20 mg total) by mouth daily ., Disp: , Rfl: tadalafiL 20 MG tablet, Take by mouth ., Disp: , Rfl: tamsulosin (FLOMAX) 0.4 mg capsule, every morning before breakfast ., Disp: , Rfl: therapeutic multivitamin (THERAGRAN) tablet, Take 1 (one) tablet by mouth daily ., Disp: , Rfl: traZODone (DESYREL) 50 MG tablet, TAKE 1 2 (ONE HALF) TABLET BY MOUTH ONCE DAILY AT BEDTIME, Disp: , Rfl: Past Medical History: Diagnosis Date A-fib ([facility]) Acquired hammer toe Allergy Arthritis Back pain Cataract removed Diabetes mellitus, type 2 ([facility]) Dizzy spells Foot cramps Foot pain, bilateral Fracture of phalanx of toe Frequent urination GERD (gastroesophageal reflux disease) Hiatal hernia High blood pressure High cholesterol History of stress test 03/08/2018 scheduled at [facility] Kidney stones 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 Nephrolithiasis passed Night sweats Numbness in both hands Obesity OM (onychomycosis) PAD (peripheral artery disease) ([facility]) Peripheral neuropathy numbness fingers, tingling and some numbness left leg and foot Plantar fasciitis right Pneumonia in infectious disease PONV (postoperative nausea and vomiting) Radiculopathy of lumbar region Ringing in ears Shortness of breath on exertion Sinus pain Swollen feet Tinea pedis Tired feet Urinary urgency Venous insufficiency of both lower extremities Vision problem Past Surgical History: Procedure Laterality Date ABLATION WITH PHENOL BACK SURGERY 1960 LUMBAR CARDIAC PACEMAKER PLACEMENT CATARACT EXT/ECCE Right COLONOSCOPY X 3 ESOPHAGOGASTRODUODENOSCOPY HERNIA REPAIR Right INGUINAL LAMINECTOMY DECOMP LUMBAR MULTI LEVEL Right 03/13/2018 Procedure: RIGHT L2-L5 LAMINECTOMY DECOMPRESSION; Surgeon: Kailey Hilton MD; Location: [facility] Main OR; Service: Orthopedic RETINAL DETACHMENT SURGERY TOTAL KNEE ARTHROPLASTY Left 06/2016 Social History Socioeconomic History Marital status: Tobacco Use Smoking status: Never Smokeless tobacco: Never Substance and Sexual Activity Alcohol use: No Alcohol/week: 0.0 standard drinks of alcohol Drug use: No ROS: Review of Systems Musculoskeletal: Positive for arthralgias and joint swelling. ORTHO: Left Elbow Exam Tenderness The patient is experiencing tenderness in the olecranon fossa and radial capitellar joint. Range of Motion The patient has normal left elbow ROM. Muscle Strength The patient has normal left elbow strength. Other Erythema: absent Scars: absent Sensation: normal Pulse: present Comments: Moderate swelling of the olecranon bursa Imaging: No new imaging, reviewed from prior visit. Assessment/Plan: After examination we discussed continued treatment for the elbow. I did offer to aspirate the elbow which he gladly accepted. I did this without 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s and he tolerated this well I did explain that if he received a cortisone injection at today's visit he would have to wait 3 months until he would be able to have any type of surgical intervention. The patient elected to withhold the cortisone at today's visit. I am sending him to [facility] to have the left elbow MRI performed. We will check compatibility at this facility. I will notify the patient via telephone of his MRI results after I review them with Dr. Hsu and get his recommendations on surgical intervention. He does verbalize understanding and is in agreement with the treatment plan. MD Linares Injection/Arthrocentesis: L olecranon bursa Performed by: Yaritza Luna CNP Authorized by: Yaritza Luna CNP CPT 63146 - Medium Joint Arthrocentesis: Consent given by: Patient Time out: Immediately prior to the procedure a time out was called Physician or proceduralist has discussed critical or nonroutine steps, procedure duration and anticipated blood loss: Yes Supporting Documentation: Indications: Joint swelling and diagnostic evaluation Procedure Details: Location: Elbow Site: L olecranon bursa Prep: patient was prepped and draped in usual sterile fashion Needle size: 18 G Aspirate amount (ml): 15 Aspirate: Yellow and clear Lab: fluid sent for laboratory analysis Patient tolerance: Patient tolerated the procedure well with no immediate 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s documented in this encounter [facility] 11-06-2022 History of Present illness Narrative On a scale of 0 to 10, the patient rates the pain at 7.Pain Location: Low Back Pain, Upper Back Pain and across both sides under scapula and above belt line bilat shoulders.Pain Quality: Aching.Pain Radiation: none.Sensory/ Motor: Numbness and lt foot on lateral side of foot and 5th toe ongoing.Timing/Duration: Constant and > 12 weeks duration.Exacerbating Factors: motion, standing, stairs and walking.Alleviating Factors: Medications, Repositioning, Other: ___. [facility] Work Phone: 10-07-2022 History of Present illness Narrative Associated Order(s): MD Linares Injection/Arthrocentesis: R radiocarpal Post-Procedure Diagnose(s): Right wrist pain [facility] [address] [facility] [address] [facility] [id number] Chief Complaint Patient presents with Right Hand - Pain Rocio Allred Jaime returns to the office today for follow up on his right wrist pain. I injected the right CMC joint about two weeks ago but he continues to have pain in the wrist joint itself, more on the radial side. We had discussed a possible injection to the wrist and he would like to try that today. The patient's past medical history, surgical history, social history, family history, medications and allergies were reviewed with the patient today and are available in the chart for further review. Allergies Allergen Reactions Morphine Nausea and vomiting He was 15 when he had a reaction. It was actually anesthetics. No Known Allergies Current Outpatient Medications: acetaminophen (TYLENOL ORAL), Take 650 mg by mouth., Disp: , Rfl: amiodarone (CORDARONE) 200 MG tablet, Take 1 (one) tablet (200 mg total) by mouth at bedtime ., Disp: , Rfl: atorvastatin (LIPITOR) 40 MG tablet, Take 1 (one) tablet (40 mg total) by mouth nightly ., Disp: , Rfl: blood sugar diagnostic (glucose blood) strips, by Miscellaneous route ., Disp: , Rfl: coffee xt/phosphatidyl serine (NEURIVA ORIGINAL ORAL), Take by mouth ., Disp: , Rfl: empagliflozin (Jardiance) 25 mg Tab, Take by mouth ., Disp: , Rfl: furosemide (LASIX) 20 MG tablet, Take 1 (one) tablet (20 mg total) by mouth every other day ., Disp: , Rfl: gabapentin (NEURONTIN) 400 MG capsule, Take 1 (one) capsule (400 mg total) by mouth 3 (three) times a day ., Disp: , Rfl: lisinopril (PRINIVIL,ZESTRIL) 20 MG tablet, 1 (one) tablet (20 mg total) every morning Reasons: high blood pressure., Disp: , Rfl: MELATONIN ORAL, Take by mouth ., Disp: , Rfl: metFORMIN (GLUCOPHAGE-XR) 750 MG 24 hr tablet, Take 1 (one) tablet (750 mg total) by mouth 2 (two) times a day Take 1 tab bid ., Disp: , Rfl: omeprazole (PRILOSEC) 40 MG capsule, , Disp: , Rfl: rivaroxaban (XARELTO) 20 mg Tab, Take 1 (one) tablet (20 mg total) by mouth daily ., Disp: , Rfl: tadalafiL 20 MG tablet, Take by mouth ., Disp: , Rfl: tamsulosin (FLOMAX) 0.4 mg capsule, every morning before breakfast ., Disp: , Rfl: therapeutic multivitamin (THERAGRAN) tablet, Take 1 (one) tablet by mouth daily ., Disp: , Rfl: traZODone (DESYREL) 50 MG tablet, TAKE 1 2 (ONE HALF) TABLET BY MOUTH ONCE DAILY AT BEDTIME, Disp: , Rfl: Past Medical History: Diagnosis Date A-fib ([facility]) Acquired hammer toe Allergy Arthritis Back pain Cataract removed Diabetes mellitus, type 2 ([facility]) Dizzy spells Foot cramps Foot pain, bilateral Fracture of phalanx of toe Frequent urination GERD (gastroesophageal reflux disease) Hiatal hernia High blood pressure High cholesterol History of stress test 03/08/2018 scheduled at [facility] Kidney stones 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 Nephrolithiasis passed Night sweats Numbness in both hands Obesity OM (onychomycosis) PAD (peripheral artery disease) ([facility]) Peripheral neuropathy numbness fingers, tingling and some numbness left leg and foot Plantar fasciitis right Pneumonia in infectious disease PONV (postoperative nausea and vomiting) Radiculopathy of lumbar region Ringing in ears Shortness of breath on exertion Sinus pain Swollen feet Tinea pedis Tired feet Urinary urgency Venous insufficiency of both lower extremities Vision problem Past Surgical History: Procedure Laterality Date BACK SURGERY 1960 LUMBAR CATARACT EXT/ECCE Right COLONOSCOPY X 3 ESOPHAGOGASTRODUODENOSCOPY HERNIA REPAIR Right INGUINAL LAMINECTOMY DECOMP LUMBAR MULTI LEVEL Right 03/13/2018 Procedure: RIGHT L2-L5 LAMINECTOMY DECOMPRESSION; Surgeon: Kailey Hilton MD; Location: [facility] Main OR; Service: Orthopedic RETINAL DETACHMENT SURGERY TOTAL KNEE ARTHROPLASTY Left 06/2016 Social History Socioeconomic History Marital status: Tobacco Use Smoking status: Never Smokeless tobacco: Never Substance and Sexual Activity Alcohol use: No Alcohol/week: 0.0 standard drinks of alcohol Drug use: No ROS: Review of Systems Musculoskeletal: Positive for arthralgias, joint swelling and myalgias. PE: Physical Exam Musculoskeletal: General: Swelling and tenderness present. Right wrist: Swelling, tenderness and bony tenderness present. Decreased range of motion. Normal pulse. Imaging: No new imaging, reviewed from prior visit Assessment/Plan: Injection to the right wrist per patient request. I did this without 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s and he tolerated this well. I will see him back if there is no improvement. MD Linares Injection/Arthrocentesis: R radiocarpal Performed by: Yaritza Luna CNP Authorized by: Yaritza Luna CNP CPT 80530 - Medium Joint Arthrocentesis: Consent given by: Patient Time out: Immediately prior to the procedure a time out was called Physician or proceduralist has discussed critical or nonroutine steps, procedure duration and anticipated blood loss: Yes Supporting Documentation: Indications: Pain and diagnostic evaluation Procedure Details: Location: Wrist Site: R radiocarpal Prep: patient was prepped and draped in usual sterile fashion Needle size: 22 G Approach: Dorsal Medications: 40 mg triamcinolone acetonide 40 mg/mL Anesthetic amount (mL): 1 Patient tolerance: Patient tolerated the procedure well with no immediate 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s documented in this encounter [facility] 09-19-2022 History of Present illness Narrative Associated Order(s): SM Jt Injection/Arthrocentesis: L thumb MCP; SM Jt Injection/Arthrocentesis: R thumb MCP Post-Procedure Diagnose(s): 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 He denies any injury to either wrist. He states that this has worsened over the last 3 weeks. He is finding it more difficult to use his power tools. He had a hard time removing a battery from one of them the other day. He just doesn't have the strength in the hands because of the pain. He denies any numbness and tingling into the hand or the fingers, bilaterally. He is also starting to have pain in both of his palms in addition to some tightness and soreness in the fingers, especially when he wakes up in the AM. The patient's past medical history, surgical history, social history, family history, medications and allergies were reviewed with the patient today and are available in the chart for further review. Allergies Allergen Reactions Morphine Nausea and vomiting He was 15 when he had a reaction. It was actually anesthetics. No Known Allergies Current Outpatient Medications: acetaminophen (TYLENOL ORAL), Take 650 mg by mouth., Disp: , Rfl: amiodarone (CORDARONE) 200 MG tablet, Take 1 (one) tablet (200 mg total) by mouth at bedtime ., Disp: , Rfl: atorvastatin (LIPITOR) 40 MG tablet, Take 1 (one) tablet (40 mg total) by mouth nightly ., Disp: , Rfl: blood sugar diagnostic (glucose blood) strips, by Miscellaneous route ., Disp: , Rfl: coffee xt/phosphatidyl serine (NEURIVA ORIGINAL ORAL), Take by mouth ., Disp: , Rfl: empagliflozin (Jardiance) 25 mg Tab, Take by mouth ., Disp: , Rfl: furosemide (LASIX) 20 MG tablet, Take 1 (one) tablet (20 mg total) by mouth every other day ., Disp: , Rfl: gabapentin (NEURONTIN) 400 MG capsule, Take 1 (one) capsule (400 mg total) by mouth 3 (three) times a day ., Disp: , Rfl: lisinopril (PRINIVIL,ZESTRIL) 20 MG tablet, 1 (one) tablet (20 mg total) every morning Reasons: high blood pressure., Disp: , Rfl: MELATONIN ORAL, Take by mouth ., Disp: , Rfl: metFORMIN (GLUCOPHAGE-XR) 750 MG 24 hr tablet, Take 1 (one) tablet (750 mg total) by mouth 2 (two) times a day Take 1 tab bid ., Disp: , Rfl: omeprazole (PRILOSEC) 40 MG capsule, , Disp: , Rfl: rivaroxaban (XARELTO) 20 mg Tab, Take 1 (one) tablet (20 mg total) by mouth daily ., Disp: , Rfl: tamsulosin (FLOMAX) 0.4 mg capsule, every morning before breakfast ., Disp: , Rfl: therapeutic multivitamin (THERAGRAN) tablet, Take 1 (one) tablet by mouth daily ., Disp: , Rfl: traZODone (DESYREL) 50 MG tablet, TAKE 1 2 (ONE HALF) TABLET BY MOUTH ONCE DAILY AT BEDTIME, Disp: , Rfl: Past Medical History: Diagnosis Date A-fib ([facility]) Acquired hammer toe Allergy Arthritis Back pain Cataract removed Diabetes mellitus, type 2 ([facility]) Dizzy spells Foot cramps Foot pain, bilateral Fracture of phalanx of toe Frequent urination GERD (gastroesophageal reflux disease) Hiatal hernia High blood pressure High cholesterol History of stress test 03/08/2018 scheduled at [facility] Kidney stones 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 Nephrolithiasis passed Night sweats Numbness in both hands Obesity OM (onychomycosis) PAD (peripheral artery disease) ([facility]) Peripheral neuropathy numbness fingers, tingling and some numbness left leg and foot Plantar fasciitis right Pneumonia in infectious disease PONV (postoperative nausea and vomiting) Radiculopathy of lumbar region Ringing in ears Shortness of breath on exertion Sinus pain Swollen feet Tinea pedis Tired feet Urinary urgency Venous insufficiency of both lower extremities Vision problem Past Surgical History: Procedure Laterality Date BACK SURGERY 1960 LUMBAR CATARACT EXT/ECCE Right COLONOSCOPY X 3 ESOPHAGOGASTRODUODENOSCOPY HERNIA REPAIR Right INGUINAL LAMINECTOMY DECOMP LUMBAR MULTI LEVEL Right 03/13/2018 Procedure: RIGHT L2-L5 LAMINECTOMY DECOMPRESSION; Surgeon: Kailey Hilton MD; Location: [facility] Main OR; Service: Orthopedic RETINAL DETACHMENT SURGERY TOTAL KNEE ARTHROPLASTY Left 06/2016 Social History Socioeconomic History Marital status: Tobacco Use Smoking status: Never Smokeless tobacco: Never Substance and Sexual Activity Alcohol use: No Alcohol/week: 0.0 standard drinks Drug use: No ROS: Review of Systems Musculoskeletal: Positive for arthralgias, joint swelling and myalgias. Neurological: Positive for weakness. PE: Physical Exam Musculoskeletal: Right wrist: Swelling, tenderness and snuff box tenderness present. Decreased range of motion. Normal pulse. Left wrist: Tenderness and snuff box tenderness present. No swelling. Decreased range of motion. Normal pulse. ORTHO: Right Hand Exam Tenderness The patient is experiencing tenderness in the snuff box and radial area. Range of Motion Wrist Extension: 40 Flexion: 80 Pronation: 80 Supination: 70 Muscle Strength Wrist extension: 5/5 Wrist flexion: 5/5 Steel Engraver: 4/5 Tests Phalen s Sign: negative Tinel's sign (median nerve): negative Oz's test: negative Other Erythema: absent Scars: absent Sensation: normal Pulse: present Left Hand Exam Tenderness The patient is experiencing tenderness in the snuff box. Range of Motion Wrist Extension: 45 Flexion: 80 Pronation: 70 Supination: 70 Muscle Strength Wrist extension: 5/5 Wrist flexion: 5/5 Steel Engraver: 4/5 Tests Phalen s Sign: negative Tinel's sign (median nerve): negative Oz's test: negative Other Erythema: absent Scars: absent Sensation: normal Pulse: present Imaging: B/L Wrist: Decreased mineralization. No acute fractures or dislocations. Old right ulnar styloid process fracture. 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 Additional mild radiocarpal degeneration bilaterally. Unremarkable soft tissues. Assessment/Plan: After examination and reviewing of the patient x-ray images, we discussed treatment options for both wrists/thumb. I did offer him cortisone injections which he gladly accepted. I did this without 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s and he tolerated this well. If there is no improvement, I will see him back in 2 weeks for follow up. SM Jt Injection/Arthrocentesis: L thumb MCP Performed by: Yaritza Luna CNP Authorized by: Yaritza Luna CNP CPT 38552 - Small Joint Arthrocentesis: Consent given by: Patient Time out: Immediately prior to the procedure a time out was called Physician or proceduralist has discussed critical or nonroutine steps, procedure duration and anticipated blood loss: Yes Supporting Documentation: Indications: Pain, joint swelling and diagnostic evaluation Procedure Details: Location: Thumb Site: L thumb MCP Prep: patient was prepped and draped in usual sterile fashion Needle size: 25 G Approach: Dorsal Medications: 40 mg triamcinolone acetonide 40 mg/mL Anesthetic used:: Lidocaine 1% Anesthetic amount (mL): 1 Patient tolerance: Patient tolerated the procedure well with no immediate 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s SM Jt Injection/Arthrocentesis: R thumb MCP Performed by: Yaritza Luna CNP Authorized by: Yaritza Luna CNP CPT 53729 - Small Joint Arthrocentesis: Consent given by: Patient Time out: Immediately prior to the procedure a time out was called Physician or proceduralist has discussed critical or nonroutine steps, procedure duration and anticipated blood loss: Yes Supporting Documentation: Indications: Pain, joint swelling and diagnostic evaluation Procedure Details: Location: Thumb Site: R thumb MCP Prep: patient was prepped and draped in usual sterile fashion Needle size: 25 G Approach: Dorsal Medications: 40 mg triamcinolone acetonide 40 mg/mL Anesthetic used:: Lidocaine 1% Anesthetic amount (mL): 1 Patient tolerance: Patient tolerated the procedure well with no immediate 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s documented in this encounter [facility] 08-07-2022 History of Present illness Narrative On a scale of 0 to 10, the patient rates the pain at 2.now and 7/10 first thing in the morning.Pain Location: Upper Back Pain and just below scapula.Pain Quality: Aching, Sharp, Stabbing and stiff.Sensory/ Motor: Numbness, Pins and [place] and intermittently in left foot.Timing/Duration: Constant and > 12 weeks duration.Controlled Substance:I have personally reviewed the [place]AR[place] report for ROCIO JAIME. I have considered the risks of abuse, dependence, addiction and diversion.Exacerbating Factors: motion, lifting and laying on wither side .Goals for Pain Management:Oswestry Disability Index evaluation tool completed by patient score 24.Patient Education:TIME OUT DONE FOR BILATERAL SHOULDER INJECTIONS. -[facility] Work Phone: 08-04-2022 History of Present illness Narrative Associated Order(s): MD Linares Injection/Arthrocentesis: L olecranon bursa Post-Procedure Diagnose(s): Olecranon bursitis of left elbow [facility] [address] [facility] [address] [facility] [id number] Chief Complaint Patient presents with Left Elbow - Follow-up Rocio Sandoval returns to the office today for follow-up on the left elbow. I saw him just this week and aspirated the bursa in the left elbow. I did send cultures as well as had some lab work performed to rule out any possible infection. Blood work came back normal. The cultures came back negative. I went ahead and did start him on an antibiotic which she has been taking. He states that the elbow did swell up again. He also reports that it is warm again. I did refrain from injecting cortisone at the last visit. He is hoping we could aspirate the elbow again and try some cortisone as the first time we used a cortisone back in May, he had significant improvement. The patient's past medical history, surgical history, social history, family history, medications and allergies were reviewed with the patient today and are available in the chart for further review. Allergies Allergen Reactions Morphine Nausea and vomiting He was 15 when he had a reaction. It was actually anesthetics. No Known Allergies Current Outpatient Medications: acetaminophen (TYLENOL ORAL), Take 650 mg by mouth., Disp: , Rfl: amiodarone (CORDARONE) 200 MG tablet, Take 1 (one) tablet (200 mg total) by mouth at bedtime ., Disp: , Rfl: atorvastatin (LIPITOR) 40 MG tablet, Take 1 (one) tablet (40 mg total) by mouth nightly ., Disp: , Rfl: blood sugar diagnostic (glucose blood) strips, by Miscellaneous route ., Disp: , Rfl: cephALEXin (KEFLEX) 500 MG capsule, Take 1 (one) capsule (500 mg total) by mouth 4 (four) times a day for 10 days ., Disp: 40 capsule, Rfl: 0 coffee xt/phosphatidyl serine (NEURIVA ORIGINAL ORAL), Take by mouth ., Disp: , Rfl: empagliflozin (Jardiance) 25 mg Tab, Take by mouth ., Disp: , Rfl: furosemide (LASIX) 20 MG tablet, Take 1 (one) tablet (20 mg total) by mouth every other day ., Disp: , Rfl: gabapentin (NEURONTIN) 400 MG capsule, Take 1 (one) capsule (400 mg total) by mouth 3 (three) times a day ., Disp: , Rfl: lisinopril (PRINIVIL,ZESTRIL) 20 MG tablet, 1 (one) tablet (20 mg total) every morning Reasons: high blood pressure., Disp: , Rfl: MELATONIN ORAL, Take by mouth ., Disp: , Rfl: metFORMIN (GLUCOPHAGE-XR) 750 MG 24 hr tablet, Take 1 (one) tablet (750 mg total) by mouth 2 (two) times a day Take 1 tab bid ., Disp: , Rfl: omeprazole (PRILOSEC) 40 MG capsule, , Disp: , Rfl: rivaroxaban (XARELTO) 20 mg Tab, Take 1 (one) tablet (20 mg total) by mouth daily ., Disp: , Rfl: tamsulosin (FLOMAX) 0.4 mg capsule, every morning before breakfast ., Disp: , Rfl: therapeutic multivitamin (THERAGRAN) tablet, Take 1 (one) tablet by mouth daily ., Disp: , Rfl: traZODone (DESYREL) 50 MG tablet, TAKE 1 2 (ONE HALF) TABLET BY MOUTH ONCE DAILY AT BEDTIME, Disp: , Rfl: Past Medical History: Diagnosis Date A-fib ([facility]) Acquired hammer toe Allergy Arthritis Back pain Cataract removed Diabetes mellitus, type 2 ([facility]) Dizzy spells Foot cramps Foot pain, bilateral Fracture of phalanx of toe Frequent urination GERD (gastroesophageal reflux disease) Hiatal hernia High blood pressure High cholesterol History of stress test 03/08/2018 scheduled at [facility] Kidney stones 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 Nephrolithiasis passed Night sweats Numbness in both hands Obesity OM (onychomycosis) PAD (peripheral artery disease) ([facility]) Peripheral neuropathy numbness fingers, tingling and some numbness left leg and foot Plantar fasciitis right Pneumonia in infectious disease PONV (postoperative nausea and vomiting) Radiculopathy of lumbar region Ringing in ears Shortness of breath on exertion Sinus pain Swollen feet Tinea pedis Tired feet Urinary urgency Venous insufficiency of both lower extremities Vision problem Past Surgical History: Procedure Laterality Date BACK SURGERY 1960 LUMBAR CATARACT EXT/ECCE Right COLONOSCOPY X 3 ESOPHAGOGASTRODUODENOSCOPY HERNIA REPAIR Right INGUINAL LAMINECTOMY DECOMP LUMBAR MULTI LEVEL Right 03/13/2018 Procedure: RIGHT L2-L5 LAMINECTOMY DECOMPRESSION; Surgeon: Kailey Hilton MD; Location: [facility] Main OR; Service: Orthopedic RETINAL DETACHMENT SURGERY TOTAL KNEE ARTHROPLASTY Left 06/2016 Social History Socioeconomic History Marital status: Tobacco Use Smoking status: Never Smokeless tobacco: Never Substance and Sexual Activity Alcohol use: No Alcohol/week: 0.0 standard drinks Drug use: No Imaging: No new imaging, reviewed from prior visit. Assessment/Plan: I went ahead and aspirated the left elbow per patient request. I also injected post aspiration with cortisone. I did this the 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 and he tolerated as well. We also discussed that if there is no improvement after the cortisone injection that I would order a MRI of the left elbow for further evaluation. We also discussed possible surgical intervention which would require a bursectomy. The patient is to contact the office in 2 weeks if there is no improvement. Again, at that time I will order an MRI and see him back for the results. He does verbalize understanding and is in agreement the treatment plan. MD Linares Injection/Arthrocentesis: L olecranon bursa Performed by: Yaritza Luna CNP Authorized by: Yaritza Luna CNP CPT 92289 - Medium Joint Arthrocentesis: Consent given by: Patient Time out: Immediately prior to the procedure a time out was called Physician or proceduralist has discussed critical or nonroutine steps, procedure duration and anticipated blood loss: Yes Supporting Documentation: Indications: Pain and diagnostic evaluation Procedure Details: Location: Elbow Site: L olecranon bursa Prep: patient was prepped and draped in usual sterile fashion Needle size: 18 G Medications: 40 mg triamcinolone acetonide 40 mg/mL Aspirate amount (ml): 5 Aspirate: Clear, yellow and blood-tinged Patient tolerance: Patient tolerated the procedure well with no immediate 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s documented in this encounter [facility] 08-04-2022 History of Present illness Narrative Nail care, left great toe pain Patient is a pleasant 76 year-old male who comes in today for diabetic nail care. His diabetes is managed by primary care including Dr. Kin Anne. Hemoglobin A1c is 7.5% with some tingling burning and loss of sensation. Physical Vascular: DP pulses are palpable 2 out of 4. PT pulses are nonpalpable bilaterally. CFT is fair with mild edema. Compression socks are helping. Feet are warm to cool proximal to distal. Hair growth absent to the lower extremity and skin is shiny atrophic dysvascular. Nails one left and one right are elongated thickened mycotic crumbling and dystrophic. Nails left foot 2345 and right foot 2345 are elongated and thickened and mycotic. Neuro: Sharp dull is blunted Babinski's is fair. Musculoskeletal: Muscle strength is 5/5 with fair tone, can easily wiggle toes without any clicking or catching. Left great toe is painful with compression of the first MPJ though the IPJ is full and pain-free. Otherwise can easily wiggle toes without any clicking or catching Assessment and plan: Patient is a pleasant 76-year-old male, diabetes with peripheral arterial disease, onychomycosis to two nails and onychodystrophy to eight nails. -He does qualify for nail care given his peripheral arterial disease and risk. Procedure: Nails left foot one 2345 bilaterally were sharply debrided and debulk in height and length with a sharp pair of nail nippers consistent with a q8 modifier. Follow-up in 3 months for foot nail care. documented in this encounter [facility] 08-01-2022 History of Present illness Narrative Associated Order(s): MD Linares Injection/Arthrocentesis: L olecranon bursa Post-Procedure Diagnose(s): Olecranon bursitis of left elbow [facility] [address] [facility] [address] [facility] [id number] Chief Complaint Patient presents with Left Elbow - Joint Swelling Rocio Allred Jaime returns to the office today for follow-up on the left elbow. I last saw him on May 09, 2022 for some olecranon bursitis of the left elbow. At that point time I went ahead and aspirated the elbow as well as injected it with cortisone and he says up until last week the elbow felt great. Just a couple of days ago he had increased pain and swelling in the left elbow. He is also complaining of it being warm. He continues to have a little bit of a scab on that elbow but denies that his ever drained. He denies any injury to the elbow that he can recall. The patient's past medical history, surgical history, social history, family history, medications and allergies were reviewed with the patient today and are available in the chart for further review. Allergies Allergen Reactions Morphine Nausea and vomiting He was 15 when he had a reaction. It was actually anesthetics. No Known Allergies Current Outpatient Medications: amiodarone (CORDARONE) 200 MG tablet, Take 1 (one) tablet (200 mg total) by mouth at bedtime ., Disp: , Rfl: atorvastatin (LIPITOR) 40 MG tablet, Take 1 (one) tablet (40 mg total) by mouth nightly ., Disp: , Rfl: blood sugar diagnostic (glucose blood) strips, by Miscellaneous route ., Disp: , Rfl: coffee xt/phosphatidyl serine (NEURIVA ORIGINAL ORAL), Take by mouth ., Disp: , Rfl: empagliflozin (Jardiance) 25 mg Tab, Take by mouth ., Disp: , Rfl: furosemide (LASIX) 20 MG tablet, Take 1 (one) tablet (20 mg total) by mouth every other day ., Disp: , Rfl: lisinopril (PRINIVIL,ZESTRIL) 20 MG tablet, 1 (one) tablet (20 mg total) every morning Reasons: high blood pressure., Disp: , Rfl: MELATONIN ORAL, Take by mouth ., Disp: , Rfl: metFORMIN (GLUCOPHAGE-XR) 750 MG 24 hr tablet, Take 1 (one) tablet (750 mg total) by mouth 2 (two) times a day Take 1 tab bid ., Disp: , Rfl: omeprazole (PRILOSEC) 40 MG capsule, , Disp: , Rfl: rivaroxaban (XARELTO) 20 mg Tab, Take 1 (one) tablet (20 mg total) by mouth daily ., Disp: , Rfl: tamsulosin (FLOMAX) 0.4 mg capsule, every morning before breakfast ., Disp: , Rfl: therapeutic multivitamin (THERAGRAN) tablet, Take 1 (one) tablet by mouth daily ., Disp: , Rfl: traZODone (DESYREL) 50 MG tablet, TAKE 1 2 (ONE HALF) TABLET BY MOUTH ONCE DAILY AT BEDTIME, Disp: , Rfl: acetaminophen (TYLENOL ORAL), Take 650 mg by mouth., Disp: , Rfl: cephALEXin (KEFLEX) 500 MG capsule, Take 1 (one) capsule (500 mg total) by mouth 4 (four) times a day for 10 days ., Disp: 40 capsule, Rfl: 0 Past Medical History: Diagnosis Date A-fib ([facility]) Acquired hammer toe Allergy Arthritis Back pain Cataract removed Diabetes mellitus, type 2 ([facility]) Dizzy spells Foot cramps Foot pain, bilateral Fracture of phalanx of toe Frequent urination GERD (gastroesophageal reflux disease) Hiatal hernia High blood pressure High cholesterol History of stress test 03/08/2018 scheduled at [facility] Kidney stones 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 Nephrolithiasis passed Night sweats Numbness in both hands Obesity OM (onychomycosis) PAD (peripheral artery disease) ([facility]) Peripheral neuropathy numbness fingers, tingling and some numbness left leg and foot Plantar fasciitis right Pneumonia in infectious disease PONV (postoperative nausea and vomiting) Radiculopathy of lumbar region Ringing in ears Shortness of breath on exertion Sinus pain Swollen feet Tinea pedis Tired feet Urinary urgency Venous insufficiency of both lower extremities Vision problem Past Surgical History: Procedure Laterality Date BACK SURGERY 1960 LUMBAR CATARACT EXT/ECCE Right COLONOSCOPY X 3 ESOPHAGOGASTRODUODENOSCOPY HERNIA REPAIR Right INGUINAL LAMINECTOMY DECOMP LUMBAR MULTI LEVEL Right 03/13/2018 Procedure: RIGHT L2-L5 LAMINECTOMY DECOMPRESSION; Surgeon: Kailey Hilton MD; Location: [facility] Main OR; Service: Orthopedic RETINAL DETACHMENT SURGERY TOTAL KNEE ARTHROPLASTY Left 06/2016 Social History Socioeconomic History Marital status: Tobacco Use Smoking status: Never Smokeless tobacco: Never Substance and Sexual Activity Alcohol use: No Alcohol/week: 0.0 standard drinks Drug use: No ROS: Review of Systems Musculoskeletal: Positive for joint swelling and myalgias. Skin: The elbow is warm to touch PE: Physical Exam Musculoskeletal: Left elbow: Swelling present. No deformity. Normal range of motion. Tenderness present in olecranon process. Imaging: No new imaging, reviewed from prior visit. Assessment/Plan: After exam I did aspirate the left elbow. The patient tolerated this well, without 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s. I went ahead and sent the fluid off for cultures as well as did a wound culture as well. Given the warmth and redness I am starting him on an antibiotic. He is to continue with any OTC pain medications as needed. I will call him with his lab results. I also ordered a uric acid and a CBC for further evaluation as well. I will call him with the results and he will follow-up as needed. MD Linares Injection/Arthrocentesis: L olecranon bursa Performed by: Yaritza Luna CNP Authorized by: Yaritza Luna CNP CPT 19293 - Medium Joint Arthrocentesis: Consent given by: Patient Time out: Immediately prior to the procedure a time out was called Physician or proceduralist has discussed critical or nonroutine steps, procedure duration and anticipated blood loss: Yes Supporting Documentation: Indications: Pain and diagnostic evaluation Procedure Details: Location: Elbow Site: L olecranon bursa Prep: patient was prepped and draped in usual sterile fashion Needle size: 25 G Aspirate amount (ml): 15 Aspirate: Yellow and clear Lab: fluid sent for laboratory analysis Patient tolerance: Patient tolerated the procedure well with no immediate 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s documented in this encounter [facility] 06-13-2022 Note Pre-procedure Verifi cation and Time Out: Pre-Procedure Verification and Time Out: Procedure Locationprocedure area HUDDLE - Pre-procedure Verificationcompleted TIME OUT - Final Verificationcompleted immediately prior to procedure start DEBRIEFcompleted General Information: Anesthesia Critical Care: Non-Anesthesia Date/Time of Procedure: 13-Jun-2022 11:56 Post-Procedure Diagnosis: Sinus node dysfunction Procedure Name: Dual chamber pacemaker Findings: grossly normal anatomy Procedure performed by: me Fruit Sprayer(s): none Estimated Blood Loss (mL): none Specimen: no Informed Consent: written consent obtained Procedure Details: Procedure Details: Procedure summary: After written witnessed informed consent was obtained for the procedure and sedation from the patient, the patient was transferred to the EP Lab. The patient was in the fasting state. A grounding pad was placed. Self-adhesive anterior-posterior defibrillation pads were applied. Blood pressure was monitored. The left infraclavicular region was clipped, prepped, and draped in the usual sterile fashion. Local anesthesia with Bupivacaine 0.25 % was given, an incision was made and hemostasis obtained. Left axillary vein access x2 was obtained for lead placement. The vessel was accessed via Modified Seldinger's technique. A subcutaneous left infraclavicular pocket was constructed. It was then flushed using a saline solution. Using fluoroscopic guidance, right ventricular and right atrial leads were inserted. The leads were secured with anchoring sleeves and non-absorbable suture. A dual-chamber PPM ( AMANDA, Sonali LIANG SN: [id number] ) was attached to the leads and implanted. Two-way communication was established between the device and its server programmer. The device was interrogated and its parameters recorded; telemetered electrograms and pacing and sensing thresholds were measured. Hemostasis was obtained with electrocautery. The pocket was flushed with vancomycin. The wound was closed in three layers. The skin was approximated with subcuticular suture and steri-strips. Atrial Lead: MDT 5076 STS SN: [id number] P wave: 1.5mV Imp: 551ohms Threshold: 0.5@0.5ms (Appendage) Ventricular Lead: MDT 5076 SN: [id number] R wave: 9mV Imp: 798ohms Threshold: 1@0.5ms (RV apical septum) IMPRESSION Successful dual chamber PPM PLAN - CXR today and tomorrow AM - ECG tomorrow AM - Device interrogation tomorrow AM - Keep area dry for 7 days - Avoid lifting arm above shoulder for 6 weeks - Avoid lifting objects >10 pounds for 6 weeks - f/u at device clinics as outpt -Restart Xarelto on 06/16 Tolerance: good Electronic Signatures: Abelino Mesa) (Signed 13-Jun-2022 11:58) Authored: Pre-procedure Verification and Time Out, General Information, Procedure Details, Note Completion Last Updated: 13-Jun-2022 11:58 by Abelino Mesa) [facility] [place] 06-13-2022 Note History of Present I llness: History Present Illness: Reason for surgery: Prolonged Intraatrial conduction with Light headedness for PPM with Dr Romo 06/13/2022 HPI: 76 Year old male s/p RFCA and subsequent prodonged Intraatrial conduction with lightheadedness and weakness. HRs between 45-50. Presents for PPM with Dr oRmo. He has a history of afib and is anticoagulated with Xarelto. RFCA was November 2021 . H/O HFpEF. Denies shortness of breath, chest pain or abdominal pain. No N,V,D,C. No Fever or Chills. Covid Negative 06/09/2022 Past Medical History: Medical History: Status post left heart catheterization: Sleep apnea: Hypertension: GERD (gastroesophageal reflux disease): Diabetes: BPH (benign prostatic hyperplasia): Surg History: History of hernia repair: Previous back surgery: Status post knee replacement: History of esophagogastroduodenoscopy (EGD): Status post epidural steroid injection: History of colonoscopy: History of circumcision: Cataract: Allergies: Allergies: No Known Allergies: Home Medication Review: Home Medications Reviewed: yes Impression/Procedure: Impression and Planned Procedure: Bradycardia PPM ERAS (Enhanced Recovery After Surgery): ERAS Patient: no Review of Systems: Review of Systems: Constitutional: NEGATIVE: Fever, Chills, Anorexia, Weight Loss, Malaise Eyes: NEGATIVE: Blurry Vision, Drainage, Diploplia, Redness, Vision Loss/ Change ENMT: NEGATIVE: Nasal Discharge, Nasal Congestion, Ear Pain, Mouth Pain, Throat Pain Respiratory: NEGATIVE: Dry Cough, Productive Cough, Hemoptysis, Wheezing, Shortness of Breath Cardiac: NEGATIVE: Chest Pain, Dyspnea on Exertion, Orthopnea, Palpitations, Syncope; COMMENTS: Bradycardia Lightheadedness and weakness Gastrointestinal: NEGATIVE: Nausea, Vomiting, Diarrhea, Constipation, Abdominal Pain Genitourinary: NEGATIVE: Discharge, Dysuria, Flank Pain, Frequency, Hematuria Musculoskeletal: NEGATIVE: Decreased ROM, Pain, Swelling, Stiffness, Weakness Neurological: NEGATIVE: Dizziness, Confusion, Headache, Seizures, Syncope Psychiatric: NEGATIVE: Mood Changes, Anxiety, Hallucinations, Sleep Changes, Suicidal Ideas Skin: NEGATIVE: Mass, Pain, Pruritus, Rash, Ulcer Vital Signs: Temperature C: 36.8 degrees C Temperature F: 98.2 degrees F Heart Rate: 60 beats per minute Respiratory Rate: 12 breath per minute Blood Pressure Systolic: 133 mm/Hg Blood Pressure Diastolic: 62 mm/Hg Physical Exam by System: Constitutional: Alert and oriented in no apparent distress. Eyes: PERRLA, EOMI . No Injection or Icterus. ENMT: Moist oropharyngeal mucosa. Class _III_ Airway Head/Neck: NC/AT Respiratory/Thorax: CTA Cardiovascular: Sinus Alvaro Gastrointestinal: Soft, NT,NG,NR,ND Musculoskeletal: Moves all extremities Extremities: No Edema, 2+ Equal bilateral peripheral pulses/ Neurological: No focal deficits Psychological: Appropriate mood and behavior Skin: Warn, Dry, Intact Consent: COVID-19 Consent: COVID-19 Risk ConsentSurgeon has reviewed chapin risks related to the risk of archie COVID-19 and if they contract COVID-19 what the risks are. Electronic Signatures: Catherine Philip (PAC) (Signed 13-Jun-2022 08:52) Authored: History of Present Illness, Past Medical History, Allergies, Home Medication Review, Impression/Procedure, ERAS, Review of Systems, Physical Exam, Consent, Note Completion Last Updated: 13-Jun-2022 08:52 by Catherine Philip (PAC) [facility] [place] 06-13-2022 Note [facility] Work Phone: Electrophysiology Procedur e Testing Please click on the link to view the study images (Normal) 06-13-2022 Note [facility] Work Phone: Electrophysiology Procedur e Testing Please click on the link to view the study images (Normal) 06-13-2022 Note [facility] Work Phone: Electrophysiology Procedur e Testing Please click on the link to view the study images (Normal) 06-13-2022 Note [facility] Work Phone: Electrophysiology Procedur e Testing Please click on the link to view the study images (Normal) 05-05-2022 History of Present illness Narrative Nail care, left great toe pain Patient is a pleasant 76 year-old male who comes in today for diabetic nail care. His diabetes is managed by primary care including Dr. Kin Anne, date of last service is January 05, 2022. Hemoglobin A1c is 7.5% with some tingling burning and loss of sensation. Physical Vascular: DP pulses are palpable 2 out of 4. PT pulses are nonpalpable bilaterally. CFT is fair with mild edema. Compression socks are helping. Feet are warm to cool proximal to distal. Hair growth absent to the lower extremity and skin is shiny atrophic dysvascular. Nails one left and one right are elongated thickened mycotic crumbling and dystrophic. Nails left foot 2345 and right foot 2345 are elongated and thickened and mycotic. Neuro: Sharp dull is blunted Babinski's is fair. Musculoskeletal: Muscle strength is 5/5 with fair tone, can easily wiggle toes without any clicking or catching. Left great toe is painful with compression of the first MPJ though the IPJ is full and pain-free. Otherwise can easily wiggle toes without any clicking or catching Assessment and plan: Patient is a pleasant 76-year-old male, diabetes with peripheral arterial disease, onychomycosis to two nails and onychodystrophy to eight nails. -He does qualify for nail care given his peripheral arterial disease and risk. Procedure: Nails left foot one 2345 bilaterally were sharply debrided and debulk in height and length with a sharp pair of nail nippers consistent with a q8 modifier. Follow-up in 3 months for foot nail care. documented in this encounter [facility] 04-10-2022 History of Present illness Narrative On a scale of 0 to 10, the patient rates the pain at 0.now and 8-9/10 at tis worst in the afternoon.Pain Location: Neck Pain and Lt side and between scapula.Pain Quality: Aching and stiffness.Sensory/ Motor: Numbness, Pins and Wahoo and R>L.Timing/Duration: Intermittent and > 12 weeks duration.Controlled Substance:I have personally reviewed the [place]ARRS report for ROCIO SANDOVAL. I have considered the risks of abuse, dependence, addiction and diversion.Exacerbating Factors: motion and turning head.Alleviating Factors: Medications, Other: ___.24 Hour Behavior:Symptoms are better in the am.Symptoms are the same as the day progresses.Symptoms are the same in the pm.Symptoms are worse when lying down. [facility] Work Phone: 02-28-2022 History of Present illness Narrative On a scale of 0 to 10, the patient rates the pain at 4.Pain Location: Low Back Pain and Upper Back Pain.Pain Quality: Aching and severe ache.Pain Radiation: Markus hips, R lower buttocks, groin.Sensory/ Motor: Numbness, Pins and Wahoo, Decreased Bowel Function and L foot numbness/pins and needles; patient states his BM has been different, not as regular but states he doesn't eat as much as before.Timing/Duration: Intermittent and > 12 weeks duration. [facility] Work Phone: 02-24-2022 History of Present illness Narrative LNail care, left great toe pain Patient is a pleasant 76 year-old male who comes in today for diabetic nail care. His diabetes is managed by primary care including Dr. Kin Anne, date of last service is December 30, 2020. Hemoglobin A1c is 7.5% with some tingling burning and loss of sensation. -Does complain additionally today of a rash on the top of his left foot. States is quite itchy and uncomfortable. Has been using lotion but to no avail. Physical Vascular: DP pulses are palpable 2 out of 4. PT pulses are nonpalpable bilaterally. CFT is fair with mild edema. Compression socks are helping. Feet are warm to cool proximal to distal. Hair growth absent to the lower extremity and skin is shiny atrophic dysvascular. Nails one left and one right are elongated thickened mycotic crumbling and dystrophic. Nails left foot 2345 and right foot 2345 are elongated and thickened and mycotic. Neuro: Sharp dull is blunted Babinski's is fair. Musculoskeletal: Muscle strength is 5/5 with fair tone, can easily wiggle toes without any clicking or catching. Left great toe is painful with compression of the first MPJ though the IPJ is full and pain-free. Otherwise can easily wiggle toes without any clicking or catching Assessment and plan: Patient is a pleasant 76-year-old male, diabetes with peripheral arterial disease, onychomycosis to two nails and onychodystrophy to eight nails. -He does qualify for nail care given his peripheral arterial disease and risk. Procedure: Nails left foot one 2345 bilaterally were sharply debrided and debulk in height and length with a sharp pair of nail nippers consistent with a q8 modifier. Regarding his dorsal left foot rash consistent with tinea pedis, can start topical Lotrisone twice daily for 10 days. Straightforward medical complexity decision making based on limb loss risk score separate than his nail care. Follow-up in 3 months for foot nail care. documented in this encounter [facility] 12-13-2021 Note Pre-procedure Verifi cation and Time Out: Pre-Procedure Verification and Time Out: Procedure Locationprocedure area HUDDLE - Pre-procedure Verificationcompleted TIME OUT - Final Verificationcompleted immediately prior to procedure start DEBRIEFcompleted General Information: Anesthesia Critical Care: Non-Anesthesia Date/Time of Procedure: 13-Dec-2021 15:53 Post-Procedure Diagnosis: Persistent atrial fibrillation Procedure Name: Radiofrequency ablation Findings: grossly normal anatomy Procedure performed by: Fruit Sprayer(s): none Estimated Blood Loss (mL): none Specimen: no Informed Consent: written consent obtained Procedure Details: Procedure Details: The pt was brought to the EP lab in the fasting state. The presenting rhythm was atrial fibrillation. Patient placed under general anesthesia. Access was obtained in the right femoral vein using the modified Seldinger technique with the aid of ultrasound. Three sheaths (8Fr, 9Fr, 8.5Fr) were placed in the right femoral vein. A BiosGreenphire Marcelino steerable decapolar catheter was placed into CS. An ICE transducer was advanced into the right atrium via the sheath in the right femoral vein. Echocardiography was used to guide the transseptal puncture, guide positioning of the ablation tip electrode at the target sites and monitor for 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s. No pericardial effusion noted pre or post ablation. Transseptal catheterization was performed under fluoroscopic and intracardiac echocardiographic guidance. The 8.5 Fr sheath in the right femoral vein was exchanged over a wire for an 8.5 Fr Brighton Sureflex sheath. A 1-puncture transseptal access was performed using a Brighton needle assembly. Heparin bolus and continuous IV infusion were given before transseptal puncture/catheterization. The heparin infusion rate was adjusted to maintain an ACT between 300-350 sec throughout the procedure. A left atrial voltage map was constructed using Carto3 using PentaRay catheter during atrial fibrillation. Diffuse scarring noted along LA posterior wall, LA floor and parts of the anterior wall. Using a Biosense Marcelino SmartTouch SF catheter, B/L WACA lesions with ammon lines performed. After PV isolation, DCCV performed with 200J shock. LA voltage reverified while in sinus rhythm which reconfirmed low voltage. Posterior wall isolation performed next. PV and posterior wall isolation was confirmed after ablation with PentaRay catheter. Atrial burst pacing performed down to 250ms from multiple atrial sites. No AT induced. Of note, patient with marked intraatrial conduction delay with P wave ~200ms. The long sheath was exchanged for a short 8.5Fr sheath. Sites closed with Vascade device. IMPRESSION Successful pulmonary vein isolation and LA posterior wall isolation Marked LA fibrosis Tolerance: good Attestation: Note Completion: Attending AttestationI performed the procedure without a resident Electronic Signatures: Abelino Mesa) (Signed 13-Dec-2021 16:03) Authored: Pre-procedure Verification and Time Out, General Information, Procedure Details, Note Completion Last Updated: 13-Dec-2021 16:03 by Abelino Mesa) [facility] [place] 11-30-2021 History of Present illness Narrative 76-year-old gentleman with a medical history of diabetes, hypertension, hyperlipidemia, obstructive sleep apnea here to follow-up on new onset atrial fibrillation.Problem #1 persistent l atrial fibrillation-Underwent an ablation for atrial fibrillation November 2021; subsequently has been put on amiodarone-Has had some bradycardia following the procedure with some fatigue that has largely remained constant. He notes shortness of breath with exertion has improved. Denies any exertional angina. Denies any orthopnea/PND/lower extremity edema. Apart from occasional postural dizziness does not notice any presyncopal/syncopal episodes.Problem #2 heart failure with preserved ejection fraction-Taking Lasix for 20 mg every other day. Has been switched to Farga-Appears warm and dry [facility] [address] Work Phone: 11-30-2021 History of Present illness Narrative 77-year-old gentleman with a medical history of diabetes, hypertension, hyperlipidemia, obstructive sleep apnea here to follow-up on new onset atrial fibrillation.Problem #1 atrial fibrillation; status post dual-chamber pacemaker-Underwent an ablation for atrial fibrillation November 2021; subsequently has been put on amiodarone-Has had some bradycardia following the procedure with some fatigue; since then underwent a dual-chamber pacemaker June 2022 with improvement in symptoms. Currently denies any significant dyspnea with exertion. Denies any orthopnea/PND.Problem #2 heart failure with preserved ejection fraction-Taking Lasix for 20 mg every other day. On Jardiance 25 mg daily-Appears warm and dryNotably has had occasional episodes of chest discomfort; occur paroxysmally with no clear relation to exertion. And that get worse with palpation. [facility] [address] Work Phone: 11-24-2021 History of Present illness Narrative Was in ER 11/24 for swelling/red/itching, Rx for Keflex for 1 week, feeling betterto have ablation procedure in the next week [facility] Work Phone: 11-11-2021 History of Present illness Narrative LNail care, left great toe pain Patient is a pleasant 76 year-old male who comes in today for diabetic nail care. His diabetes is managed by primary care including Dr. Kin Anne, date of last service is December 30, 2020. Hemoglobin A1c is 7.5% with some tingling burning and loss of sensation. Physical Vascular: DP pulses are palpable 2 out of 4. PT pulses are nonpalpable bilaterally. CFT is fair with mild edema. Compression socks are helping. Feet are warm to cool proximal to distal. Hair growth absent to the lower extremity and skin is shiny atrophic dysvascular. Nails one left and one right are elongated thickened mycotic crumbling and dystrophic. Nails left foot 2345 and right foot 2345 are elongated and thickened and mycotic. Neuro: Sharp dull is blunted Babinski's is fair. Musculoskeletal: Muscle strength is 5/5 with fair tone, can easily wiggle toes without any clicking or catching. Left great toe is painful with compression of the first MPJ though the IPJ is full and pain-free. Otherwise can easily wiggle toes without any clicking or catching Assessment and plan: Patient is a pleasant 76-year-old male, diabetes with peripheral arterial disease, onychomycosis to two nails and onychodystrophy to eight nails. -He does qualify for nail care given his peripheral arterial disease and risk. Procedure: Nails left foot one 2345 bilaterally were sharply debrided and debulk in height and length with a sharp pair of nail nippers consistent with a q8 modifier. Additionally patient is with distal peripheral neuropathy and at risk foot type elevated his limb loss risk score. -Therefore did prescribe a set of diabetic shoes with inserts for protection prevention. Low medical complexity decision making based on limb loss risk score separate than his nail care. Follow-up in 3 months for foot nail care. documented in this encounter [facility] 09-16-2021 History of Present illness Narrative Left great toe pain Patient is a pleasant 68-year-old male following up today for great toe pain. States that he is doing fairly better today does not have that sharpness any longer still wants to make sure though that all is well. Physical Vascular: DP PT pulses are faintly palpable. Mild edema. Derm: No open wounds no ulcers no rashes. Neuro: Light touch is normal Babinski's is fair. Musculoskeletal: Muscle strength is 5/5 with fair tone. Can easily wiggle toes not in clicking or catching. Ankle subtalar midtarsal is full and pain-free. First MPJ pain today substantially decreased. X-rays AP oblique lateral: No fractures no dislocations no subluxations. First MPJ joints space loss is mild. Assessment plan: Patient a pleasant male with early osteoarthritis left first MPJ. -Today did go over options including NSAIDs versus steroids though today likely not necessary in light of his improvement. Can follow-up for foot nail care as needed. Otherwise no injection required today. Low medical complexity decision making in light of the waxing and waning character of his arthritis. documented in this encounter [facility] 08-25-2021 History of Present illness Narrative Rocio comes to office as a f/u from the hosp. Seen on 08/25 & dx w/ Influenza A. ER records/labs/imaging report reviewed today prior to OV. Remains w/ cough which is getting looser. Feeling better overall. OTC: Coricidin HBP. No f/c. appetite: gradually improving. Follows w/ heart failure clinic.scheduled for cardioversion on 09/06. [facility] Work Phone: 08-12-2021 History of Present illness Narrative Nail care, left great toe pain Patient is a pleasant 75-year-old male who comes in today for diabetic nail care. His diabetes is managed by primary care including Dr. Kin Anne, date of last service is December 30, 2020. Hemoglobin A1c is 7.5% with some tingling burning and loss of sensation. Additionally, patient comes in today complaining about his left great toe. States it sometimes feels like it is jumping feels very stiff sore painful and uncomfortable. Denies any trauma would like to know why it hurts so badly. Physical Vascular: DP pulses are palpable 2 out of 4. PT pulses are nonpalpable bilaterally. CFT is fair with mild edema. Compression socks are helping. Feet are warm to cool proximal to distal. Hair growth absent to the lower extremity and skin is shiny atrophic dysvascular. Nails one left and one right are elongated thickened mycotic crumbling and dystrophic. Nails left foot 2345 and right foot 2345 are elongated and thickened but not mycotic. Neuro: Sharp dull is blunted Babinski's is fair. Musculoskeletal: Muscle strength is 5/5 with fair tone, can easily wiggle toes without any clicking or catching. Left great toe is painful with compression of the first MPJ though the IPJ is full and pain-free. Otherwise can easily wiggle toes without any clicking or catching Assessment and plan: Patient is a pleasant 75-year-old male, diabetes with peripheral arterial disease, onychomycosis to two nails and onychodystrophy to eight nails. -He does qualify for nail care given his peripheral arterial disease and risk. Patient is additionally with likely left first MPJ osteoarthritis with pain. Today did offer to get him a set of x-rays to better work-up that diagnosis that he states that he would like to decline and wait a little bit longer as he is try to get his atrial fibrillation adjusted therefore he can follow-up in the next 1 to 2 months for updated x-rays and a full or more work-up. Procedure: Nails left foot one and right foot one were sharply debrided in height and length with a sharp pair of nail nippers consistent with a q8 modifier Procedure: Nails left foot 2345 and right foot 2345 were sharply trimmed in length with a sharp pair of nail nippers consistent with a q8 modifier Follow-up in 3 months for foot nail care. documented in this encounter [facility] 07-26-2021 History of Present illness Narrative [facility] [address] [facility] [address] [facility] [id number] Chief Complaint Patient presents with Left Knee - Pain Rocio Sandoval returns to the office today for weakness in bilateral knees. He also complains of intermittent pain in both knees. He does have a history of a left knee total replacement. He denies any injury to either knee. He reports that he finds it most painful when he is sitting for long period of time. When he then goes to get up he feels as though the legs are weak and he has some aching in both knees. He also reports that a couple of weeks ago he was on the couch attempting to reach something behind the couch and the knee actually sunk further into the couch cushion causing increased flexion of the left knee. At this point in time he had pain in the left knee as well as a pain that shot up into the groin area. He reports that this is improved and he only ever had that pain one other time. He does have significant degenerative disc disease in the lumbar spine. He was to see for some type of a procedure to help with back pain. Unfortunately during the preop portion of this he was found to have A. fib. 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 fib under control. He is now on blood thinners so he is unable to take any type of NSAIDs for pain. He does take Tylenol which does seem to help take the edge off. He continues to remain very active. He reports that recently he has been busy cutting and stacking wood for this winter. His biggest concern is the weakness in both of the knees. The patient's past medical history, surgical history, social history, family history, medications and allergies were reviewed with the patient today and are available in the chart for further review. Allergies Allergen Reactions Morphine No Known Allergies Current Outpatient Medications: acetaminophen (TYLENOL ORAL), Take 650 mg by mouth., Disp: , Rfl: ANTIOX #11/OM3/DHA/EPA/LUT/BLAZE (OCUVITE ADULT 50+ ORAL), Take 1 tablet by mouth daily EYE PROMISE., Disp: , Rfl: aspirin 81 MG EC tablet, Take 81 mg by mouth daily ., Disp: , Rfl: atorvastatin (LIPITOR) 40 MG tablet, Take 40 mg by mouth nightly ., Disp: , Rfl: Farxiga 10 mg tablet, Take 10 mg by mouth daily ONCE DAILY IN THE MORNING ., Disp: , Rfl: furosemide (LASIX) 20 MG tablet, Take 20 mg by mouth every other day ., Disp: , Rfl: gabapentin (NEURONTIN) 300 MG capsule, Take 1 (one) capsule (300 mg total) by mouth at bedtime (Days supply per fill: 90) ., Disp: 90 capsule, Rfl: 3 lisinopril (PRINIVIL,ZESTRIL) 20 MG tablet, 20 mg every morning ., Disp: , Rfl: MELATONIN ORAL, Take by mouth ., Disp: , Rfl: meloxicam (MOBIC) 15 MG tablet, Take 15 mg by mouth daily ., Disp: , Rfl: metFORMIN (GLUCOPHAGE-XR) 750 MG 24 hr tablet, Take 1 tablet by mouth 2 (two) times a day Take 1 tab bid, Disp: , Rfl: omeprazole (PRILOSEC) 20 MG capsule, Take 1 capsule by mouth every morning ., Disp: , Rfl: pioglitazone (ACTOS) 15 MG tablet, Take 15 mg by mouth nightly ., Disp: , Rfl: pravastatin (PRAVACHOL) 20 MG tablet, , Disp: , Rfl: rivaroxaban (XARELTO) 20 mg Tab, Take 20 mg by mouth daily ., Disp: , Rfl: tadalafiL (CIALIS) 20 MG tablet, Take by mouth ., Disp: , Rfl: tamsulosin (FLOMAX) 0.4 mg capsule, every morning before breakfast ., Disp: , Rfl: therapeutic multivitamin (THERAGRAN) tablet, Take 1 tablet by mouth daily, Disp: , Rfl: traZODone (DESYREL) 50 MG tablet, TAKE 1 2 (ONE HALF) TABLET BY MOUTH ONCE DAILY AT BEDTIME, Disp: , Rfl: ZINC ORAL, Take by mouth ., Disp: , Rfl: Past Medical History: Diagnosis Date A-fib (HCC) Acquired hammer toe Allergy Arthritis Back pain Cataract removed Diabetes mellitus, type 2 ([facility]) Dizzy spells Foot cramps Foot pain, bilateral Fracture of phalanx of toe Frequent urination GERD (gastroesophageal reflux disease) Hiatal hernia High blood pressure High cholesterol History of stress test 03/08/2018 scheduled at [facility] Kidney stones 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 Nephrolithiasis passed Night sweats Numbness in both hands Obesity OM (onychomycosis) PAD (peripheral artery disease) ([facility]) Peripheral neuropathy numbness fingers, tingling and some numbness left leg and foot Plantar fasciitis right Pneumonia in infectious disease PONV (postoperative nausea and vomiting) Radiculopathy of lumbar region Ringing in ears Shortness of breath on exertion Sinus pain Swollen feet Tinea pedis Tired feet Urinary urgency Venous insufficiency of both lower extremities Vision problem Past Surgical History: Procedure Laterality Date BACK SURGERY 1960 LUMBAR CATARACT EXT/ECCE Right COLONOSCOPY X 3 ESOPHAGOGASTRODUODENOSCOPY HERNIA REPAIR Right INGUINAL LAMINECTOMY DECOMP LUMBAR MULTI LEVEL Right 03/13/2018 Procedure: RIGHT L2-L5 LAMINECTOMY DECOMPRESSION; Surgeon: Kailey Hilton MD; Location: [facility] Main OR; Service: Orthopedic RETINAL DETACHMENT SURGERY TOTAL KNEE ARTHROPLASTY Left 06/2016 Social History Socioeconomic History Marital status: Tobacco Use Smoking status: Never Smoker Smokeless tobacco: Never Used Substance and Sexual Activity Alcohol use: No Alcohol/week: 0.0 standard drinks Drug use: No ROS: Review of Systems Musculoskeletal: Positive for arthralgias and myalgias. Neurological: Positive for weakness. PE: Physical Exam Musculoskeletal: Left hip: No tenderness or bony tenderness. Normal range of motion. Decreased strength. Left knee: No swelling, deformity or bony tenderness. Decreased range of motion. No tenderness. Comments: Full extension of the left knee with 115 degrees of flexion. There is 60 degrees of external rotation in the left hip and 25 degrees of internal rotation of the left hip. Imaging: Left knee: No acute fracture or dislocation. Total knee arthroplasty components in good position without evidence of loosening. Left hip: No acute fracture or dislocation. There are mild degenerative changes in the left hip joint. Assessment/Plan: After examination and reviewing of the x-ray images we discussed treatment options. I informed Zacarias that I do believe this is more so from the significant changes in the lumbar spine. I do not see any indication of prosthesis 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s of the left knee. I also do not see significant arthritis in the left hip. I encouraged him to reach out to Dr. Gibson and discuss possible treatment options for the low back. We discussed possible physical therapy but the patient would like to wait until he speaks to Dr. Gibson's office. documented in this encounter [facility] 07-26-2021 History of Present illness Narrative Patient was measured today for his shoes style DRSuraj- WEI ARANA 13 WIDE- 3 pairs of insoles- call for a fitting when shoes arrive documented in this encounter [facility] 06-06-2021 History of Present illness Narrative On a scale of 0 to 10, the patient rates the pain at 2.Pain Location: Low Back Pain and bilat side.Pain Quality: Aching.Timing/Duration: Constant and > 12 weeks duration. [facility] Work Phone: 05-06-2021 History of Present illness Narrative Nail care Patient is a pleasant 75-year-old male who comes in today for diabetic nail care. His diabetes is managed by primary care including Dr. Kin Anne, date of last service is December 30, 2020. Hemoglobin A1c is 7.1% with some tingling burning and loss of sensation. Physical Vascular: DP pulses are palpable 2 out of 4. PT pulses are nonpalpable bilaterally. CFT is fair with mild edema. Compression socks are helping. Feet are warm to cool proximal to distal. Hair growth absent to the lower extremity and skin is shiny atrophic dysvascular. Nails one left and one right are elongated thickened mycotic crumbling and dystrophic. Nails left foot 2345 and right foot 2345 are elongated and thickened but not mycotic. Neuro: Sharp dull is blunted Babinski's is fair. Musculoskeletal: Muscle strength is 5/5 with fair tone, can easily wiggle toes without any clicking or catching. Assessment and plan: Patient is a pleasant 75-year-old male, diabetes with peripheral arterial disease, onychomycosis to two nails and onychodystrophy to eight nails. -He does qualify for nail care given his peripheral arterial disease and risk. Procedure: Nails left foot one and right foot one were sharply debrided in height and length with a sharp pair of nail nippers consistent with a q8 modifier Procedure: Nails left foot 2345 and right foot 2345 were sharply trimmed in length with a sharp pair of nail nippers consistent with a q8 modifier Follow-up in 3 months for foot nail care. documented in this encounter [facility] 05-02-2021 History of Present illness Narrative Case of a 75y/o man with:1. HTN2. DMII3. ALISHA: on CPAP4. Persistent atrial fibrillation: Diagnosed in May 2021 as an incidental finding. He is rate controlled. Last ECG in [facility] aug 2020. He admits he's been having increased SOB on exertion for the past few months. Most recent event monitor with 100% rate controlled AF. Echo from Jun 2021 with enlarged LA, preserved LV function.5. HFp[facility] [id number]-Qhslbnvguv-Jcnoweh Work Phone: 05-02-2021 History of Present illness Narrative Case of a 76y/o man with:1. HTN2. DMII3. ALISHA: on CPAP4. Persistent atrial fibrillation: Diagnosed in May 2021 as an incidental finding. He is rate controlled. Last ECG in [facility] aug 2020. He admits he's been having increased SOB on exertion for the past few months. Most recent event monitor with 100% rate controlled AF. Echo from Jun 2021 with enlarged LA, preserved LV function. UNderwent DCCV in early 2021 but unfortunately was back in AF a few weeks later. He claims he felt better after the shock. He underwent AF RFA on November 2021. There was diffuse scarring, he underwent PVI and posterior wall isolation. Of note, the was marked intraantrial conduction [id number] from RA to LA.5. HFpEF DQ-Qurflvhehu-Cmzfiry Work Phone: 05-02-2021 History of Present illness Narrative Case of a 76y/o man with:1. HTN2. DMII3. ALISHA: on CPAP4. Persistent atrial fibrillation: Diagnosed in May 2021 as an incidental finding. He is rate controlled. Last ECG in [facility] aug 2020. He admits he's been having increased SOB on exertion for the past few months. Most recent event monitor with 100% rate controlled AF. Echo from Jun 2021 with enlarged LA, preserved LV function. UNderwent DCCV in early 2021 but unfortunately was back in AF a few weeks later. He claims he felt better after the shock. He underwent AF RFA on November 2021. There was diffuse scarring, he underwent PVI and posterior wall isolation. Of note, the was marked intraantrial conduction [id number] from RA to LA.5. [facility] Work Phone: 05-02-2021 History of Present illness Narrative Case of a 76y/o man with:1. HTN2. DMII3. ALISHA: on CPAP4. Persistent atrial fibrillation: Diagnosed in May 2021 as an incidental finding. He is rate controlled. Last ECG in [facility] aug 2020. He admits he's been having increased SOB on exertion for the past few months. Most recent event monitor with 100% rate controlled AF. Echo from Jun 2021 with enlarged LA, preserved LV function. UNderwent DCCV in early 2021 but unfortunately was back in AF a few weeks later. He claims he felt better after the shock. He underwent AF RFA on November 2021. There was diffuse scarring, he underwent PVI and posterior wall isolation. Of note, the was marked intraantrial conduction [id number] from RA to LA.5. [facility] Work Phone: 05-02-2021 History of Present illness Narrative Case of a 76y/o man with:1. HTN2. DMII3. ALISHA: on CPAP4. Persistent atrial fibrillation: Diagnosed in May 2021 as an incidental finding. He is rate controlled. Last ECG in [facility] aug 2020. He admits he's been having increased SOB on exertion for the past few months. Most recent event monitor with 100% rate controlled AF. Echo from Jun 2021 with enlarged LA, preserved LV function. UNderwent DCCV in early 2021 but unfortunately was back in AF a few weeks later. He claims he felt better after the shock. He underwent AF RFA on November 2021. There was diffuse scarring, he underwent PVI and posterior wall isolation. Of note, the was marked intraatrial conduction [id number] from RA to LA.5. HFpEF6. SInus node dysfunction: heart rates between 45-50bpm since ablation. [employer] Work Phone: 05-02-2021 History of Present illness Narrative Case of a 76y/o man with:1. HTN2. DMII3. ALISHA: on CPAP4. Persistent atrial fibrillation: Diagnosed in May 2021 as an incidental finding. He is rate controlled. Last ECG in [facility] aug 2020. He admits he's been having increased SOB on exertion for the past few months. Most recent event monitor with 100% rate controlled AF. Echo from Jun 2021 with enlarged LA, preserved LV function. UNderwent DCCV in early 2021 but unfortunately was back in AF a few weeks later. He claims he felt better after the shock. He underwent AF RFA on November 2021. There was diffuse scarring, he underwent PVI and posterior wall isolation. Of note, the was marked intraatrial conduction [id number] from RA to LA.5. [id number]. SInus node dysfunction: heart rates between 45-50bpm since ablation. [employer] Work Phone: 05-02-2021 History of Present illness Narrative Case of a 76y/o man with:1. HTN2. DMII3. ALISHA: on CPAP4. Persistent atrial fibrillation: Diagnosed in May 2021 as an incidental finding. He is rate controlled. Last ECG in [facility] aug 2020. He admits he's been having increased SOB on exertion for the past few months. Most recent event monitor with 100% rate controlled AF. Echo from Jun 2021 with enlarged LA, preserved LV function. UNderwent DCCV in early 2021 but unfortunately was back in AF a few weeks later. He claims he felt better after the shock. He underwent AF RFA on November 2021. There was diffuse scarring, he underwent PVI and posterior wall isolation. Of note, the was marked intraatrial conduction [id number] from RA to LA.5. [id number]. SInus node dysfunction: heart rates between 45-50bpm since ablation. [facility] Work Phone: 04-04-2021 History of Present illness Narrative On a scale of 0 to 10, the patient rates the pain at 3.Pain Location: Low Back Pain and RIGHT HIP.Pain Quality: Aching.Timing/Duration: Constant.Controlled Substance:I have personally reviewed the OARRS report for ROCIO SANDOVAL. I have considered the risks of abuse, dependence, addiction and diversion.Exacerbating Factors: rest, motion, sitting, standing, stairs and walking.Alleviating Factors: Medications, Repositioning.24 Hour Behavior:Symptoms are the same in the am.Symptoms are the same as the day progresses.Symptoms are the same in the pm.Symptoms are the same when lying down. [facility] Work [facility] 01-19-2021 History of Present illness Narrative Associated Order(s): LG Jt Injection/Arthrocentesis: R knee Post-Procedure Diagnose(s): Primary osteoarthritis of right knee; DDD (degenerative disc disease), lumbar LG Jt Injection/Arthrocentesis: R knee Performed by: Yaritza Luna CNP Authorized by: Yaritza Luna CNP CPT 57758 - Large Joint Arthrocentesis: Consent given by: Patient Time out: Immediately prior to the procedure a time out was called Physician or proceduralist has discussed critical or nonroutine steps, procedure duration and anticipated blood loss: Yes Supporting Documentation: Indications: Pain, joint swelling and diagnostic evaluation Procedure Details: Location: Knee Site: R knee Prep: patient was prepped and draped in usual sterile fashion Needle size: 22 G Approach: Anterolateral Medications: 40 mg triamcinolone acetonide 40 mg/mL Anesthetic used: Lidocaine 1% Anesthetic amount (mL): 2 Patient tolerance: Patient tolerated the procedure well with no immediate 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s [facility] [address] [facility] [address] [facility] [id number] Chief Complaint Patient presents with Right Knee - Pain Rocio Sandoval returns to the office today for right knee pain. I last saw him in September and injected the right knee with cortisone. He reports that this did provide him with adequate pain relief. He is also reporting today that he is having lower back pain. He was in to see the surgeon that performed his back surgery a couple months ago and was then started in outpatient physical therapy for the lower back. He reports that he is finished with the therapy and he has noticed some improvement but still has periods of pain. He notices increased pain the longer he stands or has to sit. He denies any radiculopathy in either leg. No numbness or tingling into either foot or toes. He was little concerned because there was no imaging taken of the lumbar back prior to starting him in physical therapy. In regards to the right knee he would like another injection today. He is not ready for any type of surgery at this point in time. The patient's past medical history, surgical history, social history, family history, medications and allergies were reviewed with the patient today and are available in the chart for further review. Allergies Allergen Reactions Morphine No Known Allergies Current Outpatient Medications: acetaminophen (TYLENOL ORAL), Take 650 mg by mouth., Disp: , Rfl: ANTIOX #11/OM3/DHA/EPA/LUT/BLAZE (OCUVITE ADULT 50+ ORAL), Take 1 tablet by mouth daily EYE PROMISE., Disp: , Rfl: aspirin 81 MG EC tablet, Take 81 mg by mouth daily ., Disp: , Rfl: atorvastatin (LIPITOR) 40 MG tablet, Take 40 mg by mouth nightly ., Disp: , Rfl: furosemide (LASIX) 20 MG tablet, Take 20 mg by mouth every other day ., Disp: , Rfl: gabapentin (NEURONTIN) 300 MG capsule, Take 300 mg by mouth nightly., Disp: , Rfl: gabapentin (NEURONTIN) 300 MG capsule, Take 1 (one) capsule (300 mg total) by mouth every 8 (eight) hours (Days supply per fill: 90) Icd10: e11.42 ., Disp: 270 capsule, Rfl: 0 lisinopril (PRINIVIL,ZESTRIL) 20 MG tablet, 20 mg every morning ., Disp: , Rfl: MELATONIN ORAL, Take by mouth ., Disp: , Rfl: meloxicam (MOBIC) 15 MG tablet, Take 15 mg by mouth daily ., Disp: , Rfl: metFORMIN (GLUCOPHAGE-XR) 750 MG 24 hr tablet, Take 1 tablet by mouth 2 (two) times a day Take 1 tab bid, Disp: , Rfl: omeprazole (PRILOSEC) 20 MG capsule, Take 1 capsule by mouth every morning ., Disp: , Rfl: pioglitazone (ACTOS) 15 MG tablet, Take 15 mg by mouth nightly ., Disp: , Rfl: pravastatin (PRAVACHOL) 20 MG tablet, , Disp: , Rfl: tadalafiL (CIALIS) 20 MG tablet, Take by mouth ., Disp: , Rfl: tamsulosin (FLOMAX) 0.4 mg capsule, every morning before breakfast ., Disp: , Rfl: therapeutic multivitamin (THERAGRAN) tablet, Take 1 tablet by mouth daily, Disp: , Rfl: traZODone (DESYREL) 50 MG tablet, TAKE 1 2 (ONE HALF) TABLET BY MOUTH ONCE DAILY AT BEDTIME, Disp: , Rfl: ZINC ORAL, Take by mouth ., Disp: , Rfl: Past Medical History: Diagnosis Date Acquired hammer toe Allergy Arthritis Back pain Cataract removed Diabetes mellitus, type 2 (HCC) Dizzy spells Foot cramps Foot pain, bilateral Fracture of phalanx of toe Frequent urination GERD (gastroesophageal reflux disease) Hiatal hernia High blood pressure High cholesterol History of stress test 03/08/2018 scheduled at [facility] Kidney stones 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 Nephrolithiasis passed Night sweats Numbness in both hands Obesity OM (onychomycosis) PAD (peripheral artery disease) (HCC) Peripheral neuropathy numbness fingers, tingling and some numbness left leg and foot Plantar fasciitis right Pneumonia in infectious disease PONV (postoperative nausea and vomiting) Radiculopathy of lumbar region Ringing in ears Shortness of breath on exertion Sinus pain Swollen feet Tinea pedis Tired feet Urinary urgency Venous insufficiency of both lower extremities Vision problem Past Surgical History: Procedure Laterality Date BACK SURGERY 1960 LUMBAR CATARACT EXT/ECCE Right COLONOSCOPY X 3 ESOPHAGOGASTRODUODENOSCOPY HERNIA REPAIR Right INGUINAL LAMINECTOMY DECOMP LUMBAR MULTI LEVEL Right 03/13/2018 Procedure: RIGHT L2-L5 LAMINECTOMY DECOMPRESSION; Surgeon: Kailey Hilton MD; Location: [facility] Main OR; Service: Orthopedic RETINAL DETACHMENT SURGERY TOTAL KNEE ARTHROPLASTY Left 06/2016 Social History Socioeconomic History Marital status: Spouse name: Not on file Number of children: Not on file Years of education: Not on file Highest education level: Not on file Occupational History Not on file Tobacco Use Smoking status: Never Smoker Smokeless tobacco: Never Used Substance and Sexual Activity Alcohol use: No Alcohol/week: 0.0 standard drinks Drug use: No Sexual activity: Not on file Other Topics Concern Not on file Social History Narrative Not on file Social Determinants of Health Financial Resource Strain: Difficulty of Paying Living Expenses: Food Insecurity: Worried About Running Out of Food in the Last Year: Ran Out of Food in the Last Year: Transportation Needs: Lack of Transportation (Medical): Lack of Transportation (Non-Medical): Physical Activity: Days of Exercise per Week: Minutes of Exercise per Session: Stress: Feeling of Stress : Social Connections: Frequency of Communication with Friends and Family: Frequency of Social Gatherings with Friends and Family: Attends [employer] Services: Active Member of Clubs or Organizations: Attends Club or Organization Meetings: Marital Status: ROS: Review of Systems Constitutional: Negative for activity change and fatigue. HENT: Negative for congestion, hearing loss and trouble swallowing. Eyes: Negative for visual disturbance. Respiratory: Negative for chest tightness and shortness of breath. Cardiovascular: Negative for chest pain and palpitations. Gastrointestinal: Negative for abdominal pain, diarrhea, nausea and vomiting. Endocrine: Negative for polydipsia, polyphagia and polyuria. Genitourinary: Negative for decreased urine volume, difficulty urinating and hematuria. Musculoskeletal: Positive for arthralgias and back pain. Negative for joint swelling and myalgias. Skin: Negative for color change, rash and wound. Allergic/Immunologic: Negative for immunocompromised state. Neurological: Negative for dizziness, weakness, light-headedness and numbness. Hematological: Does not bruise/bleed easily. Psychiatric/Behavioral: Negative for confusion and sleep disturbance. The patient is not nervous/anxious. PE: Physical Exam Constitutional: Appearance: He is well-developed. HENT: Head: Normocephalic. Eyes: Pupils: Pupils are equal, round, and reactive to light. Cardiovascular: Rate and Rhythm: Normal rate and regular rhythm. Pulmonary: Effort: Pulmonary effort is normal. Breath sounds: Normal breath sounds. Abdominal: General: Bowel sounds are normal. Palpations: Abdomen is soft. Musculoskeletal: General: Swelling and tenderness present. Cervical back: Normal range of motion and neck supple. Lumbar back: Tenderness and bony tenderness present. Decreased range of motion. Positive right straight leg raise test and positive left straight leg raise test. Skin: General: Skin is warm and dry. Neurological: Mental Status: He is alert and oriented to person, place, and time. Imaging: Lumbar No acute fracture or dislocation. There are multilevel degenerative changes throughout the spine most significant in S1 L5 region there is also severe arthritic changes within the facet joints. Assessment/Plan: Injection to the right knee per patient request. I did this without 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s and he tolerated this well. I did inform him he is able to receive another injection in 3 months if needed. In regards to the lumbar spine, since he has completed a course of outpatient physical therapy I did offer him a referral to pain management for possible injections into the lumbar spine. He is going to think about this and discuss this with family and if he chooses to go the route of pain management he will call and I will be happy to make that referral. Verbalized understanding agreement with this treatment plan. documented in this encounter [facility] 01-07-2021 History of Present illness Narrative Patient is a pleasant 75-year-old male who comes in today with following up on his EMG for distal tingling and burning. States that he still having tingling burning in both feet as well as mild ankle edema especially at the end of his day. No trauma. Physical Vascular: DP PT pulses are faintly palpable. CFT is delayed mild left ankle right ankle edema no calf pain calfs are soft and supple. Derm: No open wounds no ulcers no rashes no deep nodules. Neuro: Light touch is normal Babinski's is normal. Musculoskeletal: Muscle strength is 5/5 with fair tone, can easily wiggle toes that any clicking or catching. No pain across the medial ankle at the edematous portion. 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 -For the leg swelling, did prescribe 20-30 mm compression hose wear daily take off at nighttime. If he gets any shortness of breath report to the emergency department. -In terms of his neuropathy, did refill his oral gabapentin 90 days 270 tabs every 8 hours after any and updated OARRS report for his distal peripheral neuropathy. Follow-up in 3 months to review. Low medical complexity decision making due to chronicity and independent review and interpretation of data documented in this encounter [facility] 01-05-2021 History of Present illness Narrative No headache, chest pain, shortness of breath, dizziness, lightheadedness, or edemaNo low blood sugars since last OV, seen opthalmology in the past year, and no numbness or tingling in feet, skin normal.Taking PPI daily without breakthrough symptoms. Reviewed dietary, caffeine, tobacco, alcohol, and NSAID use. No dyspepsia, dysphagia, reflux, melena, or abdominal pain.Had cardiac ablation done in November, has F/U with cardiology later this monthsleeping OK at nightPatient has been using their CPAP nightly and is experiencing restful sleep, no morning headaches, no witnessed snoring, and notices a difference if they do not use the device. [facility] Work Phone: 01-04-2021 History of Present illness Narrative Images from the original note were not included. [facility] - Neurology [address] [place] [address] Nerve Conduction & EMG Report Patient: Rocio Sandoval Sex: Male Date of : 1945 Visit Date: 01/04/2021 08:55 Age: 75 Years Examining MD: Vincent Vásquez MD Referred by: Dr. Anne Temperature: 32.4 Current Height: 6 feet 2 inch Referred for: LLE numbness. + LBP. + DM. Plan: This study is design to evaluate for radiculopathy, plexopathy, entrapment neuropathy or polyneuropathy. Indication, risk, side effects, 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s were explained. Patient agree to proceed. Patient was instructed to clean the puncture site with soap and water and put some ice pack for bruising. EMG Summary: The left peroneal motor nerve conduction study showed normal distal latency, reduced amplitude and conduction velocity. Bilateral tibial motor nerve conduction study showed normal distal latency, reduced amplitude and decreased conduction velocities. The left sural and bilateral superficial peroneal sensory nerve conduction study showed absent responses. The left tibial H reflex was absent. Needle EMG of the muscle tested showed no abnormal spontaneous activity. Normal motor unit action potentials and recruitment patterns were seen. Impression: This is an abnormal EMG. There is electrodiagnostic evidence of a diffuse predominantly axonal sensorimotor polyneuropathy. NO clear electrodiagnostic evidence of a left lumbosacral radiculopathy, or plexopathy at this time. Vincent Vásquez MD Diplomate, ABPN, NBPAS Clinical Neurophysiology, Neurology, Vascular Neurology and Sleep Medicine [facility] [place] [phone] Motor NCS Nerve / Sites Muscle Latency Amplitude Distance Velocity ms mV cm m/s L Deep peroneal (Fibular) - EDB Ankle EDB 4.63 0.9 8.5 Fib Head EDB 14.33 0.4 37 38.1 Knee EDB 15.58 0.4 7 56.0 L Tibial - AH Ankle AH 4.56 0.8 8 Knee AH 16.40 1.0 46 38.9 R Tibial - AH Ankle AH 4.44 1.5 8 Knee AH 17.50 0.7 43 32.9 Sensory NCS Nerve / Sites Peak Amp Amp.2-3 Distance Velocity ms V V cm m/s L Sural - Lat Mall Calf NR NR NR 14 NR L Superficial peroneal - Ankle Lat leg NR NR NR 14 NR R Superficial peroneal - Ankle Lat leg NR NR NR 14 NR H Reflex Nerve H Lat ms L Tibial - Soleus 0.00 EMG Summary Table Spontaneous Activity Amplitude Duration Recruitment Polyphasia Comment Muscle Ins Act Fib PSW Fasc - - - - - L. Vastus lateralis Normal 0 0 0 Normal Normal Normal Normal Normal L. Semitendinosus Normal 0 0 0 Normal Normal Normal Normal Normal L. Tibialis anterior Normal 0 0 0 Normal Normal Normal Normal Normal L. Gastrocnemius (Medial head) Normal 0 0 0 Normal Normal Normal Normal Normal L. Abductor hallucis Normal 0 0 0 Normal Normal Normal Normal Normal L. Lumbar paraspinals Normal 0 0 0 Normal Normal Normal Normal Normal documented in this encounter [facility] 12-01-2020 History of Present illness Narrative [facility] OUTPATIENT REHABIL[facility]ATION DAILY TREATMENT NOTE Today's Date 12/01/2020 Patient Name: Rocio Sandoval Date of : 1945 Current Visit #: 8 Authorized Visits: [id number] Case Name: Low Back Pain History: Pre-Treatment Pain Scale: 2 Symptoms: gradually improved Functional Diagnosis: 1. Lumbar spondylosis 2. Lumbar radiculopathy Clinical Information: Subjective: Pt denies change in med hx. He reports feeling better overall unless he over does it with bending or lifting. He continues to experience intense pain wit flare ups but it usually resolves within a day. Objective Lumbar Spine Trunk AROM: Movement Loss % of Loss Description Flexion 50% no pain Extension 0% no pain Side Gliding R Side Gliding L Dermatomes Sensation: grossly intact Muscle Strength: Hip Flexion Right: 4+ Left: 4+ Knee extension Right: 5 Left: 5 Ankle DF Right: 5 Left: 5 Ankle PF Right: 5 Left: 5 Knee flexion Right: 5 Left: 5 Hip extension Right: 5 Left: 5 Hip ABD Right: 5 Left: 5 FOTO Score: 51 Treatments: Physical Therapy Exercise Log - 12/01/20 1646 OTHER Notes visit 8: 4:48 - 5:20 Therapeutic Exercise (60581) Intervention Scifit L3 x5 min Parameters seated HS stretch 3x20 bilat. Intervention hip add ball squeeze and GTB abd x10 Parameters standing lumbar left side glide into wall 3x20 Intervention D/C assessment Parameters -- Intervention -- Parameters -- PT Treatment Times Therex Total Time 32 Direct Treatment Time 32 Total Treatment Time 32 Goals: Physical Therapy Ortho Goals: MOBILITY: Patient will be able to ambulate for 30 minutes in community without difficulty in 6 weeks. MOBILITY: Patient will be able to ascend/descend stairs without difficulty in 4 weeks. CHANGING MAINTAINING POSITON: Patient will be able to stand for 45 minutes without pain in 6 weeks SELF CARE: Patient will be able to complete ADL/IADL's without difficulty in 4 weeks. IMPAIRMENT: Improve pain from 8/10 to <4/10 during bending, lifting and carrying in 6 weeks IMPAIRMENT: Improve gross MMT of Left Hip to 4+/5 in 6 weeks IMPAIRMENT: Improve AROM of Lumbar Flexion to <50% movement limitation in 6 weeks. OTHER: Patient will increase FOTO score from 44 to at least 60 to show MDC/MCII and expected functional outcome in 6 weeks. OTHER: Patient will be able to properly demonstrate independence with HEP in 1 week. Patient Education: Verbal HEP with patient verbalized understanding. Post-Treatment Pain Scale: 2 Assessment: Patient had an expected response to treatment. Skilled Intervention demonstrated by modifications of treatment per exercise log including assessment of patient's response and safety interventions per exercise log. Progress towards goals as expected. Plan: Discharge Jose Lazar PT State License, [id number] documented in this encounter [facility] 11-25-2020 History of Present illness Narrative [facility] OUTPATIENT REHABILITATION DAILY TREATMENT NOTE Today's Date 11/25/2020 Patient Name: Rocio Sandoval Date of : 1945 Current Visit #: 7 Authorized Visits: [id number] Case Name: Low Back Pain History: Pre-Treatment Pain Scale: 5 Symptoms: gradually worsened Functional Diagnosis: 1. Lumbar spondylosis 2. Lumbar radiculopathy Clinical Information: Subjective: Pt denies change in med hx but reports increased pain with the left SIJ region this date. He reports having increased pain following last session w/ exercise progressions but it has been slowly improving. Objective Treatments: Physical Therapy Exercise Log - 11/25/20 0748 OTHER Notes visit 7: 7:49 - 8:39 Therapeutic Exercise (00530) Intervention Scifit L3 x5 min Parameters seated HS stretch bilat. 3x30'' Intervention PPTs 10x10'' Parameters supine SKTC and piriformis stretches 10x10'' Intervention standing lumbar left side glide into wall 3x20 Parameters hip add ball squeeze and GTB abd x10 Intervention SLR x10 bilat. Parameters LA roll red SB 10x3 - NT PT Treatment Times Therex Total Time 48 Direct Treatment Time 48 Total Treatment Time 50 Goals: Physical Therapy Ortho Goals: MOBILITY: Patient will be able to ambulate for 30 minutes in community without difficulty in 6 weeks. MOBILITY: Patient will be able to ascend/descend stairs without difficulty in 4 weeks. CHANGING MAINTAINING POSITON: Patient will be able to stand for 45 minutes without pain in 6 weeks SELF CARE: Patient will be able to complete ADL/IADL's without difficulty in 4 weeks. IMPAIRMENT: Improve pain from 8/10 to <4/10 during bending, lifting and carrying in 6 weeks IMPAIRMENT: Improve gross MMT of Left Hip to 4+/5 in 6 weeks IMPAIRMENT: Improve AROM of Lumbar Flexion to <50% movement limitation in 6 weeks. OTHER: Patient will increase FOTO score from 44 to at least 60 to show MDC/MCII and expected functional outcome in 6 weeks. OTHER: Patient will be able to properly demonstrate independence with HEP in 1 week. Patient Education: Quality of movement, HEP Adherence and Pain Management with patient verbalized understanding. Post-Treatment Pain Scale: 3 Assessment: Patient had an expected response to treatment. Skilled Intervention demonstrated by modifications of treatment per exercise log including decreased volume and assessment of patient's response and safety interventions per exercise log. Progress towards goals as expected. Plan for Next Visit: Re-Assess for D/C vs continued treatment Jose Lazar PT State License, [id number] documented in this encounter [facility] 11-23-2020 History of Present illness Narrative [facility] OUTPATIENT REHABILITATION DAILY TREATMENT NOTE Today's Date 11/23/2020 Patient Name: Rocio Sandoval Date of : 1945 Current Visit #: 6 Authorized Visits: 199 Case Name: Low Back Pain History: Pre-Treatment Pain Scale: 1 Symptoms: gradually improved Functional Diagnosis: 1. Lumbar spondylosis 2. Lumbar radiculopathy Clinical Information: Subjective: Pt denies change in med hx. He states his back pain remains minimal and the pain in his left LE has not been there. He reports waking up with moderate left hip pain the past 2 days but it goes away as he gets up and starts moving. Objective Treatments: Physical Therapy Exercise Log - 11/23/20 0701 OTHER Notes visit 6: 7:01 - 7:48 Therapeutic Exercise ([id number]) Intervention Scifit L3 x5 min Parameters seated HS stretch bilat. 3x30'' Intervention PPTs 10x10'' Parameters supine SKTC and piriformis stretches 10x10'' Intervention standing lumbar left side glide into wall 3x20 Parameters hip add ball squeeze and GTB abd x10 Intervention SLR x10 bilat. Parameters LA roll red SB 10x3 PT Treatment Times Therex Total Time 47 Direct Treatment Time 47 Total Treatment Time 47 Goals: Physical Therapy Ortho Goals: MOBILITY: Patient will be able to ambulate for 30 minutes in community without difficulty in 6 weeks. MOBILITY: Patient will be able to ascend/descend stairs without difficulty in 4 weeks. CHANGING MAINTAINING POSITON: Patient will be able to stand for 45 minutes without pain in 6 weeks SELF CARE: Patient will be able to complete ADL/IADL's without difficulty in 4 weeks. IMPAIRMENT: Improve pain from 8/10 to <4/10 during bending, lifting and carrying in 6 weeks IMPAIRMENT: Improve gross MMT of Left Hip to 4+/5 in 6 weeks IMPAIRMENT: Improve AROM of Lumbar Flexion to <50% movement limitation in 6 weeks. OTHER: Patient will increase FOTO score from 44 to at least 60 to show MDC/MCII and expected functional outcome in 6 weeks. OTHER: Patient will be able to properly demonstrate independence with HEP in 1 week. Patient Education: Quality of movement and HEP Adherence with patient verbalized understanding. Post-Treatment Pain Scale: 1 Assessment: Patient had an expected response to treatment. Skilled Intervention demonstrated by modifications of treatment per exercise log including increased intensity and increased volume and safety interventions per exercise log. Progress towards goals as expected. Plan for Next Visit: Treatment Visit with focus on strength/stability as tolerated Jose Lazar PT State License, [id number] documented in this encounter [facility] 11-18-2020 History of Present illness Narrative [facility] OUTPATIENT REHABILITATION DAILY TREATMENT NOTE Today's Date 11/18/2020 Patient Name: Rocio Sandoval Date of : 1945 Current Visit #: 5 Authorized Visits: 199 Case Name: Low Back Pain History: Pre-Treatment Pain Scale: 3 Symptoms: gradually improved Functional Diagnosis: 1. Lumbar spondylosis 2. Lumbar radiculopathy Clinical Information: Subjective: Pt reports back feeling good this morning but pain increases through the day. Pain today is in L hip. Pt reports compliance with HEP. Objective Treatments: Physical Therapy Exercise Log - 11/18/20 0700 OTHER Notes visit 5: 7:00 - 7:45 Therapeutic Exercise ([id number]) Intervention Scifit L3 x5 min Parameters seated HS stretch bilat. 3x30'' Intervention PPTs 10x10'' Parameters supine SKTC and piriformis stretches 10x10'' Intervention standing lumbar left side glide into wall 3x20 Parameters LTR 10x10'' PT Treatment Times Therex Total Time 45 Direct Treatment Time 45 Total Treatment Time 45 Goals: Physical Therapy Ortho Goals: MOBILITY: Patient will be able to ambulate for 30 minutes in community without difficulty in 6 weeks. MOBILITY: Patient will be able to ascend/descend stairs without difficulty in 4 weeks. CHANGING MAINTAINING POSITON: Patient will be able to stand for 45 minutes without pain in 6 weeks SELF CARE: Patient will be able to complete ADL/IADL's without difficulty in 4 weeks. IMPAIRMENT: Improve pain from 8/10 to <4/10 during bending, lifting and carrying in 6 weeks IMPAIRMENT: Improve gross MMT of Left Hip to 4+/5 in 6 weeks IMPAIRMENT: Improve AROM of Lumbar Flexion to <50% movement limitation in 6 weeks. OTHER: Patient will increase FOTO score from 44 to at least 60 to show MDC/MCII and expected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 insufficiency of both lower extremities Tired Other malaise and fatigue [facility] Diagnosis Diabetic polyneuropathy associated with type 2 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 (HCC)- Primary [facility] Diagnosis Diabetic polyneuropathy associated with type 2 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 (HCC)- Primary Localized edema Edema [facility] Diagnosis Primary osteoarthritis of right knee- Primary DDD (degenerative disc disease), lumbar Degeneration of lumbar or lumbosacral intervertebral disc [facility] Diagnosis Onychomycosis- Primary Dermatophytosis of nail Peripheral vascular disease, unspecified (HCC) Peripheral vascular disease, unspecified Nail discoloration Other specified disease of nail Nail disorder Unspecified disease of nail [facility] Diagnosis Diabetic polyneuropathy associated with type 2 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 (HCC)- Primary [facility] Diagnosis Diabetic foot (HCC)- Primary Type II or unspecified type 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 with other specified manifestations, not stated as uncontrolled [facility] Diagnosis 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, left- Primary [facility] Diagnosis Hallux limitus of left foot- Primary OM (onychomycosis) Dermatophytosis of nail Peripheral vascular disease, unspecified (HCC) Peripheral vascular disease, unspecified Nail dystrophy Other specified disease of nail [facility] Diagnosis Hallux limitus of left foot- Primary [facility] Diagnosis Diabetic polyneuropathy associated with type 2 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 (HCC)- Primary Onychomycosis Dermatophytosis of nail Peripheral vascular disease, unspecified (HCC) Peripheral vascular disease, unspecified [facility] Diagnosis Tinea pedis of right foot- Primary Peripheral vascular disease, unspecified (HCC) Peripheral vascular disease, unspecified Onychomycosis Dermatophytosis of nail [facility] Diagnosis Diabetic polyneuropathy associated with type 2 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 (HCC)- Primary Peripheral vascular disease, unspecified (HCC) Peripheral vascular disease, unspecified Onychomycosis Dermatophytosis of nail [facility] Diagnosis Olecranon bursitis of left elbow- Primary [facility]* Diagnosis Olecranon bursitis of left elbow- Primary [facility] Diagnosis Diabetic polyneuropathy associated with type 2 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 (HCC)- Primary Onychomycosis Dermatophytosis of nail [facility] Diagnosis Olecranon bursitis of left elbow- Primary [facility] Diagnosis Olecranon bursitis of left elbow- Primary Arthritis of carpometacarpal (CMC) joint of both thumbs [facility] Diagnosis Arthritis of carpometacarpal (CMC) joint of both thumbs- Primary Olecranon bursitis of left elbow Right wrist pain Pain in joint, forearm [facility] Diagnosis Olecranon bursitis of left elbow- Primary [facility] Diagnosis Olecranon bursitis of left elbow- Primary [facility] Diagnosis Olecranon bursitis of left elbow- Primary [facility] Diagnosis Olecranon bursitis of left elbow- Primary [facility] Diagnosis Chronic rhinitis- Primary Dizziness Dizziness and giddiness documented in this encounter [facility] Work Phone: Evaluation note* Diagnosis Olecranon bursitis of left elbow- Primary [facility] Diagnosis Olecranon bursitis of left elbow- Primary [facility] Diagnosis Olecranon bursitis of left elbow- Primary Olecranon bursitis of left elbow- Primary Olecranon bursitis of left elbow [facility] Diagnosis Olecranon bursitis of left elbow- Primary Arthritis of carpometacarpal (CMC) joint of both thumbs- Primary Olecranon bursitis of left elbow [facility] Diagnosis Onychomycosis- Primary Dermatophytosis of nail Peripheral vascular disease, unspecified (HCC) Peripheral vascular disease, unspecified [facility] Diagnosis Olecranon bursitis of left elbow- Primary [facility] Diagnosis Mixed hyperlipidemia- Primary Gastroesophageal reflux disease without esophagitis Esophageal reflux Hypertension, essential, benign Essential hypertension, benign Permanent atrial fibrillation (CMS/HCC) Atrial fibrillation Benign prostatic hyperplasia without lower urinary tract symptoms Major depressive disorder, single episode, in partial remission (CMS/HCC) Major depressive disorder, single episode, in partial or unspecified remission COVID-19 documented in this encounter [facility] Work Phone: Evaluation note* Diagnosis Excessive cerumen in right ear canal- Primary [facility] Diagnosis 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, without long-term current use of insulin (CMS/HCC)- Primary Chronic diastolic congestive heart failure (CMS/HCC) Mixed hyperlipidemia Hypertension, essential, benign Essential hypertension, benign Mild CAD Peripheral arterial occlusive disease (CMS/HCC) Unspecified peripheral vascular disease Permanent atrial fibrillation (CMS/HCC) Atrial fibrillation Gastroesophageal reflux disease without esophagitis Esophageal reflux Benign prostatic hyperplasia without lower urinary tract symptoms Major depressive disorder, single episode, in partial remission (CMS/HCC) Major depressive disorder, single episode, in partial or unspecified remission Sacroiliitis (CMS/HCC) Sacroiliitis, not elsewhere classified ALISHA on CPAP Low testosterone Sinus node dysfunction (CMS/HCC) Low testosterone in male documented in this encounter [facility] Work Phone: Evaluation note* Diagnosis Primary osteoarthritis of right knee- Primary [facility] Diagnosis Generalized osteoarthritis of multiple sites- Primary Generalized osteoarthrosis, involving multiple sites 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 Spinal stenosis of lumbar region Sacroiliitis (CMS/HCC) Sacroiliitis, not elsewhere classified Osteoarthritis of spine with radiculopathy, lumbosacral region documented in this encounter [facility] Work Phone: Evaluation note* Diagnosis Calcium pyrophosphate deposition disease- Primary Other disorder of calcium metabolism Generalized osteoarthritis of multiple sites Generalized osteoarthrosis, involving multiple sites 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 documented in this encounter [facility] Work Phone: Evaluation note* Diagnosis Dizziness- Primary Dizziness and giddiness Chronic fatigue Other malaise and fatigue Chronic diastolic congestive heart failure ([facility]) Hypertension, essential, benign Essential hypertension, benign Permanent atrial fibrillation ([facility]) Atrial fibrillation documented in this encounter [facility] Work Phone: Evaluation note* Diagnosis Dizziness Dizziness and giddiness Chronic fatigue Other malaise and fatigue [facility] Diagnosis Chronic fatigue [R53.82]- Primary Other malaise and fatigue Dizziness [R42] Dizziness and giddiness [facility] Diagnosis Chronic fatigue- Primary Other malaise and fatigue Dizziness Dizziness and giddiness [facility] Diagnosis Dizziness- Primary Dizziness and giddiness Chronic fatigue Other malaise and fatigue [facility]* Diagnosis Dizziness- Primary Dizziness and giddiness [facility]* Diagnosis Dizziness- Primary Dizziness and giddiness [facility]* Diagnosis Hypertension, essential, benign- Primary Essential hypertension, benign Dizziness Dizziness and giddiness Chronic fatigue Other malaise and fatigue 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, without long-term current use of insulin ([facility]) Low testosterone in male documented in this encounter [facility] Work Phone: Evaluation note* Diagnosis Cervical radiculitis- Primary Brachial neuritis or radiculitis nos Chronic right shoulder pain Pain in joint, shoulder region Arthritis of right shoulder region Chronic right-sided low back pain without sciatica Bilateral hip pain Pain in joint, pelvic region and thigh Generalized osteoarthritis of multiple sites Generalized osteoarthrosis, involving multiple sites 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 Spinal stenosis of lumbar region Sacroiliitis (CMS/HCC) Sacroiliitis, not elsewhere classified Osteoarthritis of spine with radiculopathy, lumbosacral region documented in this encounter [facility] Work Phone: [phone] note* Diagnosis Bilateral hip pain Pain in joint, pelvic region and thigh documented in this encounter [facility] Work Phone: [phone] note* Diagnosis Bilateral hip pain Pain in joint, pelvic region and thigh documented in this encounter [facility] Work Phone: [phone] note* Diagnosis Chronic right shoulder pain Pain in joint, shoulder region Arthritis of right shoulder region documented in this encounter [facility] Work Phone: Evaluation note* Diagnosis Chronic right-sided low back pain without sciatica documented in this encounter [facility] Work Phone: [phone] note* Diagnosis Cervical radiculitis Brachial neuritis or radiculitis nos documented in this encounter [facility] Work Phone: [phone] note* Diagnosis Onychomycosis- Primary Dermatophytosis of nail Peripheral vascular disease, unspecified (HCC) Peripheral vascular disease, unspecified [facility] Diagnosis Cervical radiculitis Brachial neuritis or radiculitis nos documented in this encounter [facility] Work Phone: [phone] note* Diagnosis Pacemaker Cardiac pacemaker in situ Sick sinus syndrome (CMS/HCC) Sinoatrial node dysfunction documented in this encounter [facility] Work Phone: [phone] note* Diagnosis Cardiac pacemaker in situ Sinoatrial node dysfunction (CMS/HCC) Sinoatrial node dysfunction documented in this encounter [facility] Work Phone: Evaluation note* Diagnosis Lumbar radiculopathy- Primary Thoracic or lumbosacral neuritis or radiculitis, unspecified 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 stenosis Spinal stenosis of lumbar region Cervical spondylosis Cervical spondylosis without myelopathy Cervical radiculitis Brachial neuritis or radiculitis nos Sacroiliitis (CMS/HCC) Sacroiliitis, not elsewhere classified Generalized osteoarthritis of multiple sites Generalized osteoarthrosis, involving multiple sites 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, lumbosacral region documented in this encounter [facility] Work Phone: [phone] note* Diagnosis Skin tear of right elbow without 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, subsequent encounter- Primary Chronic diastolic congestive heart failure (CMS/HCC) 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, without long-term current use of insulin (CMS/HCC) Low testosterone in male ALISHA on CPAP documented in this encounter [facility] Work Phone: Evaluation note* Diagnosis Lumbar radiculopathy Thoracic or lumbosacral neuritis or radiculitis, unspecified 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 stenosis Spinal stenosis of lumbar region Cervical radiculitis Brachial neuritis or radiculitis nos documented in this encounter [facility] Work Phone: Evaluation note* Diagnosis Cardiac pacemaker in situ Sinoatrial node dysfunction (CMS/HCC) Sinoatrial node dysfunction documented in this encounter [facility] Work Phone: Evaluation note* Diagnosis Pacemaker Cardiac pacemaker in situ Sick sinus syndrome (CMS/HCC) Sinoatrial node dysfunction documented in this encounter [facility] Work Phone: Evaluation note* Diagnosis Lumbar radiculopathy Thoracic or lumbosacral neuritis or radiculitis, unspecified 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 stenosis Spinal stenosis of lumbar region Cervical radiculitis Brachial neuritis or radiculitis nos documented in this encounter [facility] Work Phone: Evaluation note* Diagnosis Pacemaker Cardiac pacemaker in situ Sick sinus syndrome (CMS/HCC) Sinoatrial node dysfunction documented in this encounter [facility] Work Phone: Evaluation note* Diagnosis Cardiac pacemaker in situ Sinoatrial node dysfunction (CMS/HCC) Sinoatrial node dysfunction documented in this encounter [facility] Work Phone: Evaluation note* Diagnosis Lumbar radiculopathy- Primary Thoracic or lumbosacral neuritis or radiculitis, unspecified Prolapsed lumbar disc 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 stenosis Spinal stenosis of lumbar region Cervical radiculitis Brachial neuritis or radiculitis nos Cervical spondylosis Cervical spondylosis without myelopathy documented in this encounter [facility] Work Phone: Evaluation note* Diagnosis Bradycardia Other specified cardiac dysrhythmias Pacemaker Cardiac pacemaker in situ Sinus node dysfunction (Multi) documented in this encounter [facility] Work Phone: Evaluation note* Diagnosis Chronic diastolic congestive heart failure (Multi) documented in this encounter [facility] Work Phone: Evaluation note* Diagnosis Routine general medical examination at health care facility- Primary Routine general medical examination at a health care facility Chronic diastolic congestive heart failure (Multi) Mixed hyperlipidemia Hypertension, essential, benign Essential hypertension, benign Mild CAD Peripheral arterial occlusive disease ([facility]) Unspecified peripheral vascular disease Permanent atrial fibrillation (Multi) Atrial fibrillation 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, without long-term current use of insulin (Multi) Gastroesophageal reflux disease without esophagitis Esophageal reflux Benign prostatic hyperplasia without lower urinary tract symptoms Major depressive disorder, single episode, in partial remission ([facility]) Major depressive disorder, single episode, in partial or unspecified remission Sacroiliitis ([facility]) Sacroiliitis, not elsewhere classified ALISHA on CPAP Low testosterone 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 Spinal stenosis of lumbar region Generalized osteoarthritis of multiple sites Generalized osteoarthrosis, involving multiple sites 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, 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 documented in this encounter [facility] Work Phone: Evaluation note* Diagnosis Atrial fibrillation, unspecified type (Multi)- Primary Chronic diastolic congestive heart failure (Multi) Generalized osteoarthritis of multiple sites- Primary Generalized osteoarthrosis, involving multiple sites Calcium pyrophosphate deposition disease Other disorder of calcium metabolism 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 documented in this encounter [facility] Work Phone: Evaluation note* Diagnosis Generalized osteoarthritis of multiple sites- Primary Generalized osteoarthrosis, involving multiple sites Calcium pyrophosphate deposition disease Other disorder of calcium metabolism 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 documented in this encounter [facility] Work Phone: Evaluation note* Diagnosis History of total left [facility]- [facility] Diagnosis Diabetic polyneuropathy associated with type 2 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 (HCC)- Primary Onychomycosis Dermatophytosis of nail Peripheral vascular disease, unspecified (HCC) Peripheral vascular disease, unspecified [facility] Diagnosis Lumbar radiculopathy Thoracic or lumbosacral neuritis or radiculitis, unspecified 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 stenosis Spinal stenosis of lumbar region Sacroiliitis ([facility]-HCC) Sacroiliitis, not elsewhere classified Generalized osteoarthritis of multiple sites Generalized osteoarthrosis, involving multiple sites 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, lumbosacral region documented in this encounter [facility] Work Phone: Evaluation note* Diagnosis History of total left knee replacement- Primary [facility] Diagnosis Spinal stenosis of lumbar region, 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 neurogenic claudication present- Primary Lumbosacral radiculopathy Thoracic or lumbosacral neuritis or radiculitis, unspecified [facility] Diagnosis ALISHA on CPAP- Primary 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, 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 (Multi) Chronic diastolic congestive heart failure Hypertension, essential, benign Essential hypertension, benign Peripheral arterial occlusive disease (CMS-HCC) Unspecified peripheral vascular disease Permanent atrial fibrillation (Multi) Atrial fibrillation Sinus node dysfunction (Multi) Gastroesophageal reflux disease without esophagitis Esophageal reflux Benign prostatic hyperplasia without lower urinary tract symptoms Sacroiliitis ([facility]-HCC) Sacroiliitis, not elsewhere classified Screening for prostate cancer Special screening for malignant neoplasm of prostate Low testosterone in male Chronic rhinitis Mixed hyperlipidemia- Primary Gastroesophageal reflux disease without esophagitis Esophageal reflux Hypertension, essential, benign Essential hypertension, benign Permanent atrial fibrillation (Multi) Atrial fibrillation Benign prostatic hyperplasia without lower urinary tract symptoms Major depressive disorder, single episode, in partial remission (CMS-HCC) Major depressive disorder, single episode, in partial or unspecified remission COVID-19 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, without long-term current use of insulin (Multi)- Primary Chronic diastolic congestive heart failure Mixed hyperlipidemia Hypertension, essential, benign Essential hypertension, benign Mild CAD Peripheral arterial occlusive disease (CMS-HCC) Unspecified peripheral vascular disease Permanent atrial fibrillation (Multi) Atrial fibrillation Gastroesophageal reflux disease without esophagitis Esophageal reflux Benign prostatic hyperplasia without lower urinary tract symptoms Major depressive disorder, single episode, in partial remission (CMS-HCC) Major depressive disorder, single episode, in partial or unspecified remission Sacroiliitis (CMS-HCC) Sacroiliitis, not elsewhere classified ALISHA on CPAP Low testosterone Sinus node dysfunction (Multi) Low testosterone in male Dizziness- Primary Dizziness and giddiness Chronic fatigue Other malaise and fatigue Chronic diastolic congestive heart failure Hypertension, essential, benign Essential hypertension, benign Permanent atrial fibrillation (Multi) Atrial fibrillation Hypertension, essential, benign- Primary Essential hypertension, benign Dizziness Dizziness and giddiness Chronic fatigue Other malaise and fatigue 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, without long-term current use of insulin (Multi) Low testosterone in male Skin tear of right elbow without 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, subsequent encounter- Primary Chronic diastolic congestive heart failure 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, without long-term current use of insulin (Multi) Low testosterone in male ALISHA on CPAP Routine general medical examination at health care facility- Primary Routine general medical examination at a health care facility Chronic diastolic congestive heart failure Mixed hyperlipidemia Hypertension, essential, benign Essential hypertension, benign Mild CAD Peripheral arterial occlusive disease (CMS-HCC) Unspecified peripheral vascular disease Permanent atrial fibrillation (Multi) Atrial fibrillation 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, without long-term current use of insulin (Multi) Gastroesophageal reflux disease without esophagitis Esophageal reflux Benign prostatic hyperplasia without lower urinary tract symptoms Major depressive disorder, single episode, in partial remission (CMS-HCC) Major depressive disorder, single episode, in partial or unspecified remission Sacroiliitis (CMS-HCC) Sacroiliitis, not elsewhere classified ALISHA on CPAP Low testosterone 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 Spinal stenosis of lumbar region Generalized osteoarthritis of multiple sites Generalized osteoarthrosis, involving multiple sites 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, 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, without long-term current use of insulin (Multi)- Primary 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 stenosis Spinal stenosis of lumbar region Sacroiliitis (CMS-HCC) Sacroiliitis, not elsewhere classified Generalized osteoarthritis of multiple sites Generalized osteoarthrosis, involving multiple sites 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, lumbosacral region Screening for prostate cancer Special screening for malignant neoplasm of prostate Gastroesophageal reflux disease without esophagitis Esophageal reflux Hypertension, essential, benign Essential hypertension, benign Mixed hyperlipidemia Permanent atrial fibrillation (Multi) Atrial fibrillation Low testosterone in male Chronic diastolic congestive heart failure Peripheral arterial occlusive disease (CMS-HCC) Unspecified peripheral vascular disease Atrial fibrillation, unspecified type (Multi) Bradycardia Other specified cardiac dysrhythmias Sinus node dysfunction (Multi) Chronic heart failure with normal ejection fraction Unspecified systolic (congestive) heart failure documented in this encounter [facility] Work Phone: Evaluation note* Diagnosis ALISHA on CPAP- Primary 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, 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 (Multi) Chronic diastolic congestive heart failure Hypertension, essential, benign Essential hypertension, benign Peripheral arterial occlusive disease (CMS-HCC) Unspecified peripheral vascular disease Permanent atrial fibrillation (Multi) Atrial fibrillation Sinus node dysfunction (Multi) Gastroesophageal reflux disease without esophagitis Esophageal reflux Benign prostatic hyperplasia without lower urinary tract symptoms Sacroiliitis (CMS-HCC) Sacroiliitis, not elsewhere classified Screening for prostate cancer Special screening for malignant neoplasm of prostate Low testosterone in male Chronic rhinitis Mixed hyperlipidemia- Primary Gastroesophageal reflux disease without esophagitis Esophageal reflux Hypertension, essential, benign Essential hypertension, benign Permanent atrial fibrillation (Multi) Atrial fibrillation Benign prostatic hyperplasia without lower urinary tract symptoms Major depressive disorder, single episode, in partial remission (CMS-HCC) Major depressive disorder, single episode, in partial or unspecified remission COVID-19 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, without long-term current use of insulin (Multi)- Primary Chronic diastolic congestive heart failure Mixed hyperlipidemia Hypertension, essential, benign Essential hypertension, benign Mild CAD Peripheral arterial occlusive disease (CMS-HCC) Unspecified peripheral vascular disease Permanent atrial fibrillation (Multi) Atrial fibrillation Gastroesophageal reflux disease without esophagitis Esophageal reflux Benign prostatic hyperplasia without lower urinary tract symptoms Major depressive disorder, single episode, in partial remission (CMS-HCC) Major depressive disorder, single episode, in partial or unspecified remission Sacroiliitis (CMS-HCC) Sacroiliitis, not elsewhere classified ALISHA on CPAP Low testosterone Sinus node dysfunction (Multi) Low testosterone in male Hypertension, essential, benign- Primary Essential hypertension, benign Dizziness Dizziness and giddiness Chronic fatigue Other malaise and fatigue 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, without long-term current use of insulin (Multi) Low testosterone in male Skin tear of right elbow without 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, subsequent encounter- Primary Chronic diastolic congestive heart failure 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, without long-term current use of insulin (Multi) Low testosterone in male ALISHA on CPAP Routine general medical examination at health care facility- Primary Routine general medical examination at a health care facility Chronic diastolic congestive heart failure Mixed hyperlipidemia Hypertension, essential, benign Essential hypertension, benign Mild CAD Peripheral arterial occlusive disease (CMS-HCC) Unspecified peripheral vascular disease Permanent atrial fibrillation (Multi) Atrial fibrillation 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, without long-term current use of insulin (Multi) Gastroesophageal reflux disease without esophagitis Esophageal reflux Benign prostatic hyperplasia without lower urinary tract symptoms Major depressive disorder, single episode, in partial remission (CMS-HCC) Major depressive disorder, single episode, in partial or unspecified remission Sacroiliitis (CMS-HCC) Sacroiliitis, not elsewhere classified ALISHA on CPAP Low testosterone 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 Spinal stenosis of lumbar region Generalized osteoarthritis of multiple sites Generalized osteoarthrosis, involving multiple sites 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, 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, without long-term current use of insulin (Multi)- Primary 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 stenosis Spinal stenosis of lumbar region Sacroiliitis (CMS-HCC) Sacroiliitis, not elsewhere classified Generalized osteoarthritis of multiple sites Generalized osteoarthrosis, involving multiple sites 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, lumbosacral region Screening for prostate cancer Special screening for malignant neoplasm of prostate Gastroesophageal reflux disease without esophagitis Esophageal reflux Hypertension, essential, benign Essential hypertension, benign Mixed hyperlipidemia Permanent atrial fibrillation (Multi) Atrial fibrillation Low testosterone in male Chronic diastolic congestive heart failure Peripheral arterial occlusive disease (CMS-HCC) Unspecified peripheral vascular disease HFrEF (heart failure with reduced ejection fraction)- Primary Paroxysmal atrial fibrillation (Multi) Atrial fibrillation Generalized osteoarthritis of multiple sites- Primary Generalized osteoarthrosis, involving multiple sites Calcium pyrophosphate deposition disease Other disorder of calcium metabolism 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 On colchicine therapy documented in this encounter [facility] Work Phone: Evaluation note* Diagnosis ALISHA on CPAP- Primary 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, 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) Chronic diastolic congestive heart failure Hypertension, essential, benign Essential hypertension, benign Peripheral arterial occlusive disease (CMS-HCC) Unspecified peripheral vascular disease Permanent atrial fibrillation (Multi) Atrial fibrillation Sinus node dysfunction (Multi) Gastroesophageal reflux disease without esophagitis Esophageal reflux Benign prostatic hyperplasia without lower urinary tract symptoms Sacroiliitis (CMS-HCC) Sacroiliitis, not elsewhere classified Screening for prostate cancer Special screening for malignant neoplasm of prostate Low testosterone in male Chronic rhinitis Mixed hyperlipidemia- Primary Gastroesophageal reflux disease without esophagitis Esophageal reflux Hypertension, essential, benign Essential hypertension, benign Permanent atrial fibrillation (Multi) Atrial fibrillation Benign prostatic hyperplasia without lower urinary tract symptoms Major depressive disorder, single episode, in partial remission (CMS-HCC) Major depressive disorder, single episode, in partial or unspecified remission COVID-19 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, without long-term current use of insulin (Multi)- Primary Chronic diastolic congestive heart failure Mixed hyperlipidemia Hypertension, essential, benign Essential hypertension, benign Mild CAD Peripheral arterial occlusive disease (CMS-HCC) Unspecified peripheral vascular disease Permanent atrial fibrillation (Multi) Atrial fibrillation Gastroesophageal reflux disease without esophagitis Esophageal reflux Benign prostatic hyperplasia without lower urinary tract symptoms Major depressive disorder, single episode, in partial remission (CMS-HCC) Major depressive disorder, single episode, in partial or unspecified remission Sacroiliitis (CMS-HCC) Sacroiliitis, not elsewhere classified ALISHA on CPAP Low testosterone Sinus node dysfunction (Multi) Low testosterone in male Hypertension, essential, benign- Primary Essential hypertension, benign Dizziness Dizziness and giddiness Chronic fatigue Other malaise and fatigue 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, without long-term current use of insulin (Multi) Low testosterone in male Skin tear of right elbow without 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, subsequent encounter- Primary Chronic diastolic congestive heart failure 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, without long-term current use of insulin (Multi) Low testosterone in male ALISHA on CPAP Routine general medical examination at health care facility- Primary Routine general medical examination at a health care facility Chronic diastolic congestive heart failure Mixed hyperlipidemia Hypertension, essential, benign Essential hypertension, benign Mild CAD Peripheral arterial occlusive disease (CMS-HCC) Unspecified peripheral vascular disease Permanent atrial fibrillation (Multi) Atrial fibrillation 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, without long-term current use of insulin (Multi) Gastroesophageal reflux disease without esophagitis Esophageal reflux Benign prostatic hyperplasia without lower urinary tract symptoms Major depressive disorder, single episode, in partial remission (CMS-HCC) Major depressive disorder, single episode, in partial or unspecified remission Sacroiliitis (CMS-HCC) Sacroiliitis, not elsewhere classified ALISHA on CPAP Low testosterone 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 Spinal stenosis of lumbar region Generalized osteoarthritis of multiple sites Generalized osteoarthrosis, involving multiple sites 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, 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, without long-term current use of insulin (Multi)- Primary 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 stenosis Spinal stenosis of lumbar region Sacroiliitis (CMS-HCC) Sacroiliitis, not elsewhere classified Generalized osteoarthritis of multiple sites Generalized osteoarthrosis, involving multiple sites 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, lumbosacral region Screening for prostate cancer Special screening for malignant neoplasm of prostate Gastroesophageal reflux disease without esophagitis Esophageal reflux Hypertension, essential, benign Essential hypertension, benign Mixed hyperlipidemia Permanent atrial fibrillation (Multi) Atrial fibrillation Low testosterone in male Chronic diastolic congestive heart failure Peripheral arterial occlusive disease (CMS-HCC) Unspecified peripheral vascular disease Generalized osteoarthritis of multiple sites- Primary Generalized osteoarthrosis, involving multiple sites Calcium pyrophosphate deposition disease Other disorder of calcium metabolism 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 On colchicine therapy documented in this encounter [facility] Work Phone: Evaluation note* Diagnosis ALISHA on CPAP- Primary 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, 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) Chronic diastolic congestive heart failure Hypertension, essential, benign Essential hypertension, benign Peripheral arterial occlusive disease (CMS-HCC) Unspecified peripheral vascular disease Permanent atrial fibrillation (Multi) Atrial fibrillation Sinus node dysfunction (Multi) Gastroesophageal reflux disease without esophagitis Esophageal reflux Benign prostatic hyperplasia without lower urinary tract symptoms Sacroiliitis (CMS-HCC) Sacroiliitis, not elsewhere classified Screening for prostate cancer Special screening for malignant neoplasm of prostate Low testosterone in male Chronic rhinitis Mixed hyperlipidemia- Primary Gastroesophageal reflux disease without esophagitis Esophageal reflux Hypertension, essential, benign Essential hypertension, benign Permanent atrial fibrillation (Multi) Atrial fibrillation Benign prostatic hyperplasia without lower urinary tract symptoms Major depressive disorder, single episode, in partial remission (CMS-HCC) Major depressive disorder, single episode, in partial or unspecified remission COVID-19 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, without long-term current use of insulin (Multi)- Primary Chronic diastolic congestive heart failure Mixed hyperlipidemia Hypertension, essential, benign Essential hypertension, benign Mild CAD Peripheral arterial occlusive disease (CMS-HCC) Unspecified peripheral vascular disease Permanent atrial fibrillation (Multi) Atrial fibrillation Gastroesophageal reflux disease without esophagitis Esophageal reflux Benign prostatic hyperplasia without lower urinary tract symptoms Major depressive disorder, single episode, in partial remission (CMS-HCC) Major depressive disorder, single episode, in partial or unspecified remission Sacroiliitis (CMS-HCC) Sacroiliitis, not elsewhere classified ALISHA on CPAP Low testosterone Sinus node dysfunction (Multi) Low testosterone in male Hypertension, essential, benign- Primary Essential hypertension, benign Dizziness Dizziness and giddiness Chronic fatigue Other malaise and fatigue 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, without long-term current use of insulin (Multi) Low testosterone in male Skin tear of right elbow without 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, subsequent encounter- Primary Chronic diastolic congestive heart failure 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, without long-term current use of insulin (Multi) Low testosterone in male ALISHA on CPAP Routine general medical examination at health care facility- Primary Routine general medical examination at a health care facility Chronic diastolic congestive heart failure Mixed hyperlipidemia Hypertension, essential, benign Essential hypertension, benign Mild CAD Peripheral arterial occlusive disease (CMS-HCC) Unspecified peripheral vascular disease Permanent atrial fibrillation (Multi) Atrial fibrillation 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, without long-term current use of insulin (Multi) Gastroesophageal reflux disease without esophagitis Esophageal reflux Benign prostatic hyperplasia without lower urinary tract symptoms Major depressive disorder, single episode, in partial remission (CMS-HCC) Major depressive disorder, single episode, in partial or unspecified remission Sacroiliitis (CMS-HCC) Sacroiliitis, not elsewhere classified ALISHA on CPAP Low testosterone 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 Spinal stenosis of lumbar region Generalized osteoarthritis of multiple sites Generalized osteoarthrosis, involving multiple sites 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, 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, without long-term current use of insulin (Multi)- Primary 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 stenosis Spinal stenosis of lumbar region Sacroiliitis (CMS-HCC) Sacroiliitis, not elsewhere classified Generalized osteoarthritis of multiple sites Generalized osteoarthrosis, involving multiple sites 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, lumbosacral region Screening for prostate cancer Special screening for malignant neoplasm of prostate Gastroesophageal reflux disease without esophagitis Esophageal reflux Hypertension, essential, benign Essential hypertension, benign Mixed hyperlipidemia Permanent atrial fibrillation (Multi) Atrial fibrillation Low testosterone in male Chronic diastolic congestive heart failure Peripheral arterial occlusive disease (CMS-HCC) Unspecified peripheral vascular disease Lumbar radiculopathy- Primary Thoracic or lumbosacral neuritis or radiculitis, unspecified 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 Spinal stenosis of lumbar region 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 documented in this encounter [facility] Work Phone: Evaluation note* Diagnosis ALISHA on CPAP- Primary 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, 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) Chronic diastolic congestive heart failure Hypertension, essential, benign Essential hypertension, benign Peripheral arterial occlusive disease (CMS-HCC) Unspecified peripheral vascular disease Permanent atrial fibrillation (Multi) Atrial fibrillation Sinus node dysfunction (Multi) Gastroesophageal reflux disease without esophagitis Esophageal reflux Benign prostatic hyperplasia without lower urinary tract symptoms Sacroiliitis (CMS-HCC) Sacroiliitis, not elsewhere classified Screening for prostate cancer Special screening for malignant neoplasm of prostate Low testosterone in male Chronic rhinitis Mixed hyperlipidemia- Primary Gastroesophageal reflux disease without esophagitis Esophageal reflux Hypertension, essential, benign Essential hypertension, benign Permanent atrial fibrillation (Multi) Atrial fibrillation Benign prostatic hyperplasia without lower urinary tract symptoms Major depressive disorder, single episode, in partial remission (CMS-HCC) Major depressive disorder, single episode, in partial or unspecified remission COVID-19 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, without long-term current use of insulin (Multi)- Primary Chronic diastolic congestive heart failure Mixed hyperlipidemia Hypertension, essential, benign Essential hypertension, benign Mild CAD Peripheral arterial occlusive disease (CMS-HCC) Unspecified peripheral vascular disease Permanent atrial fibrillation (Multi) Atrial fibrillation Gastroesophageal reflux disease without esophagitis Esophageal reflux Benign prostatic hyperplasia without lower urinary tract symptoms Major depressive disorder, single episode, in partial remission (CMS-HCC) Major depressive disorder, single episode, in partial or unspecified remission Sacroiliitis ([facility]-HCC) Sacroiliitis, not elsewhere classified ALISHA on CPAP Low testosterone Sinus node dysfunction (Multi) Low testosterone in male Dizziness- Primary Dizziness and giddiness Chronic fatigue Other malaise and fatigue Chronic diastolic congestive heart failure Hypertension, essential, benign Essential hypertension, benign Permanent atrial fibrillation (Multi) Atrial fibrillation Hypertension, essential, benign- Primary Essential hypertension, benign Dizziness Dizziness and giddiness Chronic fatigue Other malaise and fatigue 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, without long-term current use of insulin (Multi) Low testosterone in male Skin tear of right elbow without 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, subsequent encounter- Primary Chronic diastolic congestive heart failure 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, without long-term current use of insulin (Multi) Low testosterone in male ALISHA on CPAP Routine general medical examination at health care facility- Primary Routine general medical examination at a health care facility Chronic diastolic congestive heart failure Mixed hyperlipidemia Hypertension, essential, benign Essential hypertension, benign Mild CAD Peripheral arterial occlusive disease ([facility]-HCC) Unspecified peripheral vascular disease Permanent atrial fibrillation (Multi) Atrial fibrillation 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, without long-term current use of insulin (Multi) Gastroesophageal reflux disease without esophagitis Esophageal reflux Benign prostatic hyperplasia without lower urinary tract symptoms Major depressive disorder, single episode, in partial remission (CMS-HCC) Major depressive disorder, single episode, in partial or unspecified remission Sacroiliitis ([facility]) Sacroiliitis, not elsewhere classified ALISHA on CPAP Low testosterone 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 Spinal stenosis of lumbar region Generalized osteoarthritis of multiple sites Generalized osteoarthrosis, involving multiple sites 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, 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, without long-term current use of insulin (Multi)- Primary 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 stenosis Spinal stenosis of lumbar region Sacroiliitis (CMS-HCC) Sacroiliitis, not elsewhere classified Generalized osteoarthritis of multiple sites Generalized osteoarthrosis, involving multiple sites 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, lumbosacral region Screening for prostate cancer Special screening for malignant neoplasm of prostate Gastroesophageal reflux disease without esophagitis Esophageal reflux Hypertension, essential, benign Essential hypertension, benign Mixed hyperlipidemia Permanent atrial fibrillation (Multi) Atrial fibrillation Low testosterone in male Chronic diastolic congestive heart failure Peripheral arterial occlusive disease (CMS-HCC) Unspecified peripheral vascular disease 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, without long-term current use of insulin (Multi)- Primary 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 stenosis Spinal stenosis of lumbar region Sacroiliitis (CMS-HCC) Sacroiliitis, not elsewhere classified Generalized osteoarthritis of multiple sites Generalized osteoarthrosis, involving multiple sites 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, lumbosacral region Gastroesophageal reflux disease without esophagitis Esophageal reflux Hypertension, essential, benign Essential hypertension, benign Mixed hyperlipidemia Permanent atrial fibrillation (Multi) Atrial fibrillation Low testosterone in male Chronic diastolic congestive heart failure Elevated PSA measurement Peripheral arterial occlusive disease (CMS-HCC) Unspecified peripheral vascular disease Sinus node dysfunction (Multi) documented in this encounter [facility] Work Phone: Evaluation note* Diagnosis ALISHA on CPAP- Primary 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, 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 (Multi) Chronic diastolic congestive heart failure Hypertension, essential, benign Essential hypertension, benign Peripheral arterial occlusive disease (CMS-HCC) Unspecified peripheral vascular disease Permanent atrial fibrillation (Multi) Atrial fibrillation Sinus node dysfunction (Multi) Gastroesophageal reflux disease without esophagitis Esophageal reflux Benign prostatic hyperplasia without lower urinary tract symptoms Sacroiliitis (CMS-HCC) Sacroiliitis, not elsewhere classified Screening for prostate cancer Special screening for malignant neoplasm of prostate Low testosterone in male Chronic rhinitis Mixed hyperlipidemia- Primary Gastroesophageal reflux disease without esophagitis Esophageal reflux Hypertension, essential, benign Essential hypertension, benign Permanent atrial fibrillation (Multi) Atrial fibrillation Benign prostatic hyperplasia without lower urinary tract symptoms Major depressive disorder, single episode, in partial remission (CMS-HCC) Major depressive disorder, single episode, in partial or unspecified remission COVID-19 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, without long-term current use of insulin (Multi)- Primary Chronic diastolic congestive heart failure Mixed hyperlipidemia Hypertension, essential, benign Essential hypertension, benign Mild CAD Peripheral arterial occlusive disease (CMS-HCC) Unspecified peripheral vascular disease Permanent atrial fibrillation (Multi) Atrial fibrillation Gastroesophageal reflux disease without esophagitis Esophageal reflux Benign prostatic hyperplasia without lower urinary tract symptoms Major depressive disorder, single episode, in partial remission (CMS-HCC) Major depressive disorder, single episode, in partial or unspecified remission Sacroiliitis (CMS-HCC) Sacroiliitis, not elsewhere classified ALISHA on CPAP Low testosterone Sinus node dysfunction (Multi) Low testosterone in male Dizziness- Primary Dizziness and giddiness Chronic fatigue Other malaise and fatigue Chronic diastolic congestive heart failure Hypertension, essential, benign Essential hypertension, benign Permanent atrial fibrillation (Multi) Atrial fibrillation Hypertension, essential, benign- Primary Essential hypertension, benign Dizziness Dizziness and giddiness Chronic fatigue Other malaise and fatigue 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, without long-term current use of insulin (Multi) Low testosterone in male Skin tear of right elbow without complication, subsequent encounter- Primary Chronic diastolic congestive heart failure 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, without long-term current use of insulin (Multi) Low testosterone in male ALISHA on CPAP Routine general medical examination at health care facility- Primary Routine general medical examination at a health care facility Chronic diastolic congestive heart failure Mixed hyperlipidemia Hypertension, essential, benign Essential hypertension, benign Mild CAD Peripheral arterial occlusive disease (CMS-HCC) Unspecified peripheral vascular disease Permanent atrial fibrillation (Multi) Atrial fibrillation 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, without long-term current use of insulin (Multi) Gastroesophageal reflux disease without esophagitis Esophageal reflux Benign prostatic hyperplasia without lower urinary tract symptoms Major depressive disorder, single episode, in partial remission (CMS-HCC) Major depressive disorder, single episode, in partial or unspecified remission Sacroiliitis (CMS-HCC) Sacroiliitis, not elsewhere classified ALISHA on CPAP Low testosterone 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 Spinal stenosis of lumbar region Generalized osteoarthritis of multiple sites Generalized osteoarthrosis, involving multiple sites 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, 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, without long-term current use of insulin (Multi)- Primary 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 stenosis Spinal stenosis of lumbar region Sacroiliitis (CMS-HCC) Sacroiliitis, not elsewhere classified Generalized osteoarthritis of multiple sites Generalized osteoarthrosis, involving multiple sites 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, lumbosacral region Screening for prostate cancer Special screening for malignant neoplasm of prostate Gastroesophageal reflux disease without esophagitis Esophageal reflux Hypertension, essential, benign Essential hypertension, benign Mixed hyperlipidemia Permanent atrial fibrillation (Multi) Atrial fibrillation Low testosterone in male Chronic diastolic congestive heart failure Peripheral arterial occlusive disease (CMS-HCC) Unspecified peripheral vascular disease 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, without long-term current use of insulin (Multi)- Primary 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 stenosis Spinal stenosis of lumbar region Sacroiliitis (CMS-HCC) Sacroiliitis, not elsewhere classified Generalized osteoarthritis of multiple sites Generalized osteoarthrosis, involving multiple sites 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, lumbosacral region Gastroesophageal reflux disease without esophagitis Esophageal reflux Hypertension, essential, benign Essential hypertension, benign Mixed hyperlipidemia Permanent atrial fibrillation (Multi) Atrial fibrillation Low testosterone in male Chronic diastolic congestive heart failure Elevated PSA measurement Peripheral arterial occlusive disease (CMS-HCC) Unspecified peripheral vascular disease Sinus node dysfunction (Multi) Medication management documented in this encounter [facility] Work Phone: Evaluation note* Diagnosis ALISHA on CPAP- Primary 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, 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) Chronic diastolic congestive heart failure Hypertension, essential, benign Essential hypertension, benign Peripheral arterial occlusive disease (CMS-HCC) Unspecified peripheral vascular disease Permanent atrial fibrillation (Multi) Atrial fibrillation Sinus node dysfunction (Multi) Gastroesophageal reflux disease without esophagitis Esophageal reflux Benign prostatic hyperplasia without lower urinary tract symptoms Sacroiliitis (CMS-HCC) Sacroiliitis, not elsewhere classified Screening for prostate cancer Special screening for malignant neoplasm of prostate Low testosterone in male Chronic rhinitis Mixed hyperlipidemia- Primary Gastroesophageal reflux disease without esophagitis Esophageal reflux Hypertension, essential, benign Essential hypertension, benign Permanent atrial fibrillation (Multi) Atrial fibrillation Benign prostatic hyperplasia without lower urinary tract symptoms Major depressive disorder, single episode, in partial remission (CMS-HCC) Major depressive disorder, single episode, in partial or unspecified remission COVID-19 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, without long-term current use of insulin (Multi)- Primary Chronic diastolic congestive heart failure Mixed hyperlipidemia Hypertension, essential, benign Essential hypertension, benign Mild CAD Peripheral arterial occlusive disease (CMS-HCC) Unspecified peripheral vascular disease Permanent atrial fibrillation (Multi) Atrial fibrillation Gastroesophageal reflux disease without esophagitis Esophageal reflux Benign prostatic hyperplasia without lower urinary tract symptoms Major depressive disorder, single episode, in partial remission (CMS-HCC) Major depressive disorder, single episode, in partial or unspecified remission Sacroiliitis (CMS-HCC) Sacroiliitis, not elsewhere classified ALISHA on CPAP Low testosterone Sinus node dysfunction (Multi) Low testosterone in male Dizziness- Primary Dizziness and giddiness Chronic fatigue Other malaise and fatigue Chronic diastolic congestive heart failure Hypertension, essential, benign Essential hypertension, benign Permanent atrial fibrillation (Multi) Atrial fibrillation Hypertension, essential, benign- Primary Essential hypertension, benign Dizziness Dizziness and giddiness Chronic fatigue Other malaise and fatigue 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, without long-term current use of insulin (Multi) Low testosterone in male Skin tear of right elbow without complication, subsequent encounter- Primary Chronic diastolic congestive heart failure 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, without long-term current use of insulin (Multi) Low testosterone in male ALISHA on CPAP Routine general medical examination at health care facility- Primary Routine general medical examination at a health care facility Chronic diastolic congestive heart failure Mixed hyperlipidemia Hypertension, essential, benign Essential hypertension, benign Mild CAD Peripheral arterial occlusive disease (CMS-HCC) Unspecified peripheral vascular disease Permanent atrial fibrillation (Multi) Atrial fibrillation 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, without long-term current use of insulin (Multi) Gastroesophageal reflux disease without esophagitis Esophageal reflux Benign prostatic hyperplasia without lower urinary tract symptoms Major depressive disorder, single episode, in partial remission (CMS-HCC) Major depressive disorder, single episode, in partial or unspecified remission Sacroiliitis (CMS-HCC) Sacroiliitis, not elsewhere classified ALISHA on CPAP Low testosterone 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 Spinal stenosis of lumbar region Generalized osteoarthritis of multiple sites Generalized osteoarthrosis, involving multiple sites 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, 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, without long-term current use of insulin (Multi)- Primary 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 stenosis Spinal stenosis of lumbar region Sacroiliitis (CMS-HCC) Sacroiliitis, not elsewhere classified Generalized osteoarthritis of multiple sites Generalized osteoarthrosis, involving multiple sites 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, lumbosacral region Screening for prostate cancer Special screening for malignant neoplasm of prostate Gastroesophageal reflux disease without esophagitis Esophageal reflux Hypertension, essential, benign Essential hypertension, benign Mixed hyperlipidemia Permanent atrial fibrillation (Multi) Atrial fibrillation Low testosterone in male Chronic diastolic congestive heart failure Peripheral arterial occlusive disease (CMS-HCC) Unspecified peripheral vascular disease 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, without long-term current use of insulin (Multi)- Primary 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 stenosis Spinal stenosis of lumbar region Sacroiliitis (CMS-HCC) Sacroiliitis, not elsewhere classified Generalized osteoarthritis of multiple sites Generalized osteoarthrosis, involving multiple sites 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, lumbosacral region Gastroesophageal reflux disease without esophagitis Esophageal reflux Hypertension, essential, benign Essential hypertension, benign Mixed hyperlipidemia Permanent atrial fibrillation (Multi) Atrial fibrillation Low testosterone in male Chronic diastolic congestive heart failure Elevated PSA measurement Peripheral arterial occlusive disease (CMS-HCC) Unspecified peripheral vascular disease Sinus node dysfunction (Multi) Pacemaker Cardiac pacemaker in situ Bradycardia Other specified cardiac dysrhythmias documented in this encounter [facility] Work Phone: Evaluation note* Diagnosis ALISHA on CPAP- Primary 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, 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 (Multi) Chronic diastolic congestive heart failure Hypertension, essential, benign Essential hypertension, benign Peripheral arterial occlusive disease (CMS-HCC) Unspecified peripheral vascular disease Permanent atrial fibrillation (Multi) Atrial fibrillation Sinus node dysfunction (Multi) Gastroesophageal reflux disease without esophagitis Esophageal reflux Benign prostatic hyperplasia without lower urinary tract symptoms Sacroiliitis (CMS-HCC) Sacroiliitis, not elsewhere classified Screening for prostate cancer Special screening for malignant neoplasm of prostate Low testosterone in male Chronic rhinitis Mixed hyperlipidemia- Primary Gastroesophageal reflux disease without esophagitis Esophageal reflux Hypertension, essential, benign Essential hypertension, benign Permanent atrial fibrillation (Multi) Atrial fibrillation Benign prostatic hyperplasia without lower urinary tract symptoms Major depressive disorder, single episode, in partial remission (CMS-HCC) Major depressive disorder, single episode, in partial or unspecified remission COVID-19 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, without long-term current use of insulin (Multi)- Primary Chronic diastolic congestive heart failure Mixed hyperlipidemia Hypertension, essential, benign Essential hypertension, benign Mild CAD Peripheral arterial occlusive disease (CMS-HCC) Unspecified peripheral vascular disease Permanent atrial fibrillation (Multi) Atrial fibrillation Gastroesophageal reflux disease without esophagitis Esophageal reflux Benign prostatic hyperplasia without lower urinary tract symptoms Major depressive disorder, single episode, in partial remission (CMS-HCC) Major depressive disorder, single episode, in partial or unspecified remission Sacroiliitis (CMS-HCC) Sacroiliitis, not elsewhere classified ALISHA on CPAP Low testosterone Sinus node dysfunction (Multi) Low testosterone in male Dizziness- Primary Dizziness and giddiness Chronic fatigue Other malaise and fatigue Chronic diastolic congestive heart failure Hypertension, essential, benign Essential hypertension, benign Permanent atrial fibrillation (Multi) Atrial fibrillation Hypertension, essential, benign- Primary Essential hypertension, benign Dizziness Dizziness and giddiness Chronic fatigue Other malaise and fatigue 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, without long-term current use of insulin (Multi) Low testosterone in male Skin tear of right elbow without complication, subsequent encounter- Primary Chronic diastolic congestive heart failure 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, without long-term current use of insulin (Multi) Low testosterone in male ALISHA on CPAP Routine general medical examination at health care facility- Primary Routine general medical examination at a health care facility Chronic diastolic congestive heart failure Mixed hyperlipidemia Hypertension, essential, benign Essential hypertension, benign Mild CAD Peripheral arterial occlusive disease (CMS-HCC) Unspecified peripheral vascular disease Permanent atrial fibrillation (Multi) Atrial fibrillation 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, without long-term current use of insulin (Multi) Gastroesophageal reflux disease without esophagitis Esophageal reflux Benign prostatic hyperplasia without lower urinary tract symptoms Major depressive disorder, single episode, in partial remission (CMS-HCC) Major depressive disorder, single episode, in partial or unspecified remission Sacroiliitis ([facility]-HCC) Sacroiliitis, not elsewhere classified ALISHA on CPAP Low testosterone 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 Spinal stenosis of lumbar region Generalized osteoarthritis of multiple sites Generalized osteoarthrosis, involving multiple sites 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, 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, without long-term current use of insulin (Multi)- Primary 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 stenosis Spinal stenosis of lumbar region Sacroiliitis (CMS-HCC) Sacroiliitis, not elsewhere classified Generalized osteoarthritis of multiple sites Generalized osteoarthrosis, involving multiple sites 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, lumbosacral region Screening for prostate cancer Special screening for malignant neoplasm of prostate Gastroesophageal reflux disease without esophagitis Esophageal reflux Hypertension, essential, benign Essential hypertension, benign Mixed hyperlipidemia Permanent atrial fibrillation (Multi) Atrial fibrillation Low testosterone in male Chronic diastolic congestive heart failure Peripheral arterial occlusive disease (CMS-HCC) Unspecified peripheral vascular disease 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, without long-term current use of insulin (Multi)- Primary 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 stenosis Spinal stenosis of lumbar region Sacroiliitis (CMS-HCC) Sacroiliitis, not elsewhere classified Generalized osteoarthritis of multiple sites Generalized osteoarthrosis, involving multiple sites 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, lumbosacral region Gastroesophageal reflux disease without esophagitis Esophageal reflux Hypertension, essential, benign Essential hypertension, benign Mixed hyperlipidemia Permanent atrial fibrillation (Multi) Atrial fibrillation Low testosterone in male Chronic diastolic congestive heart failure Elevated PSA measurement Peripheral arterial occlusive disease (CMS-HCC) Unspecified peripheral vascular disease Sinus node dysfunction (Multi) Sinus node dysfunction (Multi)- Primary Bradycardia Other specified cardiac dysrhythmias Permanent atrial fibrillation (Multi) Atrial fibrillation Hypertension, essential, benign Essential hypertension, benign Hyperlipidemia Other and unspecified hyperlipidemia 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 Other fatigue Shortness of breath Shortness of breath on exertion Shortness of breath documented in this encounter [facility] Work Phone: Evaluation note* Diagnosis ALISHA on CPAP- Primary 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, 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) Chronic diastolic congestive heart failure Hypertension, essential, benign Essential hypertension, benign Peripheral arterial occlusive disease (CMS-HCC) Unspecified peripheral vascular disease Permanent atrial fibrillation (Multi) Atrial fibrillation Sinus node dysfunction (Multi) Gastroesophageal reflux disease without esophagitis Esophageal reflux Benign prostatic hyperplasia without lower urinary tract symptoms Sacroiliitis (CMS-HCC) Sacroiliitis, not elsewhere classified Screening for prostate cancer Special screening for malignant neoplasm of prostate Low testosterone in male Chronic rhinitis Mixed hyperlipidemia- Primary Gastroesophageal reflux disease without esophagitis Esophageal reflux Hypertension, essential, benign Essential hypertension, benign Permanent atrial fibrillation (Multi) Atrial fibrillation Benign prostatic hyperplasia without lower urinary tract symptoms Major depressive disorder, single episode, in partial remission (CMS-HCC) Major depressive disorder, single episode, in partial or unspecified remission COVID-19 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, without long-term current use of insulin (Multi)- Primary Chronic diastolic congestive heart failure Mixed hyperlipidemia Hypertension, essential, benign Essential hypertension, benign Mild CAD Peripheral arterial occlusive disease (CMS-HCC) Unspecified peripheral vascular disease Permanent atrial fibrillation (Multi) Atrial fibrillation Gastroesophageal reflux disease without esophagitis Esophageal reflux Benign prostatic hyperplasia without lower urinary tract symptoms Major depressive disorder, single episode, in partial remission (CMS-HCC) Major depressive disorder, single episode, in partial or unspecified remission Sacroiliitis (CMS-HCC) Sacroiliitis, not elsewhere classified ALISHA on CPAP Low testosterone Sinus node dysfunction (Multi) Low testosterone in male Dizziness- Primary Dizziness and giddiness Chronic fatigue Other malaise and fatigue Chronic diastolic congestive heart failure Hypertension, essential, benign Essential hypertension, benign Permanent atrial fibrillation (Multi) Atrial fibrillation Hypertension, essential, benign- Primary Essential hypertension, benign Dizziness Dizziness and giddiness Chronic fatigue Other malaise and fatigue 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, without long-term current use of insulin (Multi) Low testosterone in male Skin tear of right elbow without complication, subsequent encounter- Primary Chronic diastolic congestive heart failure 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, without long-term current use of insulin (Multi) Low testosterone in male ALISHA on CPAP Routine general medical examination at health care facility- Primary Routine general medical examination at a health care facility Chronic diastolic congestive heart failure Mixed hyperlipidemia Hypertension, essential, benign Essential hypertension, benign Mild CAD Peripheral arterial occlusive disease (CMS-HCC) Unspecified peripheral vascular disease Permanent atrial fibrillation (Multi) Atrial fibrillation 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, without long-term current use of insulin (Multi) Gastroesophageal reflux disease without esophagitis Esophageal reflux Benign prostatic hyperplasia without lower urinary tract symptoms Major depressive disorder, single episode, in partial remission ([facility]-HCC) Major depressive disorder, single episode, in partial or unspecified remission Sacroiliitis ([facility]-HCC) Sacroiliitis, not elsewhere classified ALISHA on CPAP Low testosterone 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 Spinal stenosis of lumbar region Generalized osteoarthritis of multiple sites Generalized osteoarthrosis, involving multiple sites 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, 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, without long-term current use of insulin (Multi)- Primary 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 stenosis Spinal stenosis of lumbar region Sacroiliitis ([facility]-HCC) Sacroiliitis, not elsewhere classified Generalized osteoarthritis of multiple sites Generalized osteoarthrosis, involving multiple sites 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, lumbosacral region Screening for prostate cancer Special screening for malignant neoplasm of prostate Gastroesophageal reflux disease without esophagitis Esophageal reflux Hypertension, essential, benign Essential hypertension, benign Mixed hyperlipidemia Permanent atrial fibrillation (Multi) Atrial fibrillation Low testosterone in male Chronic diastolic congestive heart failure Peripheral arterial occlusive disease (CMS-HCC) Unspecified peripheral vascular disease 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, without long-term current use of insulin (Multi)- Primary 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 stenosis Spinal stenosis of lumbar region Sacroiliitis (CMS-HCC) Sacroiliitis, not elsewhere classified Generalized osteoarthritis of multiple sites Generalized osteoarthrosis, involving multiple sites 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, lumbosacral region Gastroesophageal reflux disease without esophagitis Esophageal reflux Hypertension, essential, benign Essential hypertension, benign Mixed hyperlipidemia Permanent atrial fibrillation (Multi) Atrial fibrillation Low testosterone in male Chronic diastolic congestive heart failure Elevated PSA measurement Peripheral arterial occlusive disease (CMS-HCC) Unspecified peripheral vascular disease Sinus node dysfunction (Multi) Lumbar radiculopathy Thoracic or lumbosacral neuritis or radiculitis, unspecified documented in this encounter [facility] Work Phone: Evaluation note* Diagnosis Pre-operative cardiovascular examination- Primary Lumbar stenosis with neurogenic claudication- Primary Spinal stenosis, lumbar region, with neurogenic claudication DDD (degenerative disc disease), lumbar Degeneration of lumbar or lumbosacral intervertebral disc Onychomycosis- Primary Dermatophytosis of nail Peripheral vascular disease, unspecified (HCC) Peripheral vascular disease, unspecified [facility] ALISHA on CPAP- Primary 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, 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 (Multi) Chronic diastolic congestive heart failure Hypertension, essential, benign Essential hypertension, benign Peripheral arterial occlusive disease (CMS-HCC) Unspecified peripheral vascular disease Permanent atrial fibrillation (Multi) Atrial fibrillation Sinus node dysfunction (Multi) Gastroesophageal reflux disease without esophagitis Esophageal reflux Benign prostatic hyperplasia without lower urinary tract symptoms Sacroiliitis (CMS-HCC) Sacroiliitis, not elsewhere classified Screening for prostate cancer Special screening for malignant neoplasm of prostate Low testosterone in male Chronic rhinitis Mixed hyperlipidemia- Primary Gastroesophageal reflux disease without esophagitis Esophageal reflux Hypertension, essential, benign Essential hypertension, benign Permanent atrial fibrillation (Multi) Atrial fibrillation Benign prostatic hyperplasia without lower urinary tract symptoms Major depressive disorder, single episode, in partial remission (CMS-HCC) Major depressive disorder, single episode, in partial or unspecified remission COVID-19 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, without long-term current use of insulin (Multi)- Primary Chronic diastolic congestive heart failure Mixed hyperlipidemia Hypertension, essential, benign Essential hypertension, benign Mild CAD Peripheral arterial occlusive disease (CMS-HCC) Unspecified peripheral vascular disease Permanent atrial fibrillation (Multi) Atrial fibrillation Gastroesophageal reflux disease without esophagitis Esophageal reflux Benign prostatic hyperplasia without lower urinary tract symptoms Major depressive disorder, single episode, in partial remission (CMS-HCC) Major depressive disorder, single episode, in partial or unspecified remission Sacroiliitis (CMS-HCC) Sacroiliitis, not elsewhere classified ALISHA on CPAP Low testosterone Sinus node dysfunction (Multi) Low testosterone in male Dizziness- Primary Dizziness and giddiness Chronic fatigue Other malaise and fatigue Chronic diastolic congestive heart failure Hypertension, essential, benign Essential hypertension, benign Permanent atrial fibrillation (Multi) Atrial fibrillation Hypertension, essential, benign- Primary Essential hypertension, benign Dizziness Dizziness and giddiness Chronic fatigue Other malaise and fatigue 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, without long-term current use of insulin (Multi) Low testosterone in male Skin tear of right elbow without complication, subsequent encounter- Primary Chronic diastolic congestive heart failure 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, without long-term current use of insulin (Multi) Low testosterone in male ALISHA on CPAP Routine general medical examination at health care facility- Primary Routine general medical examination at a health care facility Chronic diastolic congestive heart failure Mixed hyperlipidemia Hypertension, essential, benign Essential hypertension, benign Mild CAD Peripheral arterial occlusive disease (CMS-HCC) Unspecified peripheral vascular disease Permanent atrial fibrillation (Multi) Atrial fibrillation 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, without long-term current use of insulin (Multi) Gastroesophageal reflux disease without esophagitis Esophageal reflux Benign prostatic hyperplasia without lower urinary tract symptoms Major depressive disorder, single episode, in partial remission (CMS-HCC) Major depressive disorder, single episode, in partial or unspecified remission Sacroiliitis (CMS-HCC) Sacroiliitis, not elsewhere classified ALISHA on CPAP Low testosterone 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 Spinal stenosis of lumbar region Generalized osteoarthritis of multiple sites Generalized osteoarthrosis, involving multiple sites 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, 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, without long-term current use of insulin (Multi)- Primary 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 stenosis Spinal stenosis of lumbar region Sacroiliitis (CMS-HCC) Sacroiliitis, not elsewhere classified Generalized osteoarthritis of multiple sites Generalized osteoarthrosis, involving multiple sites 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, lumbosacral region Screening for prostate cancer Special screening for malignant neoplasm of prostate Gastroesophageal reflux disease without esophagitis Esophageal reflux Hypertension, essential, benign Essential hypertension, benign Mixed hyperlipidemia Permanent atrial fibrillation (Multi) Atrial fibrillation Low testosterone in male Chronic diastolic congestive heart failure Peripheral arterial occlusive disease (CMS-HCC) Unspecified peripheral vascular disease 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, without long-term current use of insulin (Multi)- Primary 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 stenosis Spinal stenosis of lumbar region Sacroiliitis (CMS-HCC) Sacroiliitis, not elsewhere classified Generalized osteoarthritis of multiple sites Generalized osteoarthrosis, involving multiple sites 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, lumbosacral region Gastroesophageal reflux disease without esophagitis Esophageal reflux Hypertension, essential, benign Essential hypertension, benign Mixed hyperlipidemia Permanent atrial fibrillation (Multi) Atrial fibrillation Low testosterone in male Chronic diastolic congestive heart failure Elevated PSA measurement Peripheral arterial occlusive disease (CMS-HCC) Unspecified peripheral vascular disease Sinus node dysfunction (Multi) Bradycardia Other specified cardiac dysrhythmias Sinus node dysfunction (Multi) Hypertension, essential, benign Essential hypertension, benign Hyperlipidemia Other and unspecified hyperlipidemia Shortness of breath on exertion Shortness of breath Bradycardia Other specified cardiac dysrhythmias Sinus node dysfunction (Multi) Hypertension, essential, benign Essential hypertension, benign Hyperlipidemia Other and unspecified hyperlipidemia Shortness of breath on exertion Shortness of breath Other forms of dyspnea documented in this encounter [facility] Work Phone: Evaluation note* Diagnosis ALISHA on CPAP- Primary 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, 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 (Multi) Chronic diastolic congestive heart failure Hypertension, essential, benign Essential hypertension, benign Peripheral arterial occlusive disease (CMS-HCC) Unspecified peripheral vascular disease Permanent atrial fibrillation (Multi) Atrial fibrillation Sinus node dysfunction (Multi) Gastroesophageal reflux disease without esophagitis Esophageal reflux Benign prostatic hyperplasia without lower urinary tract symptoms Sacroiliitis (CMS-HCC) Sacroiliitis, not elsewhere classified Screening for prostate cancer Special screening for malignant neoplasm of prostate Low testosterone in male Chronic rhinitis Mixed hyperlipidemia- Primary Gastroesophageal reflux disease without esophagitis Esophageal reflux Hypertension, essential, benign Essential hypertension, benign Permanent atrial fibrillation (Multi) Atrial fibrillation Benign prostatic hyperplasia without lower urinary tract symptoms Major depressive disorder, single episode, in partial remission (CMS-HCC) Major depressive disorder, single episode, in partial or unspecified remission COVID-19 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, without long-term current use of insulin (Multi)- Primary Chronic diastolic congestive heart failure Mixed hyperlipidemia Hypertension, essential, benign Essential hypertension, benign Mild CAD Peripheral arterial occlusive disease (CMS-HCC) Unspecified peripheral vascular disease Permanent atrial fibrillation (Multi) Atrial fibrillation Gastroesophageal reflux disease without esophagitis Esophageal reflux Benign prostatic hyperplasia without lower urinary tract symptoms Major depressive disorder, single episode, in partial remission (CMS-HCC) Major depressive disorder, single episode, in partial or unspecified remission Sacroiliitis (CMS-HCC) Sacroiliitis, not elsewhere classified ALISHA on CPAP Low testosterone Sinus node dysfunction (Multi) Low testosterone in male Dizziness- Primary Dizziness and giddiness Chronic fatigue Other malaise and fatigue Chronic diastolic congestive heart failure Hypertension, essential, benign Essential hypertension, benign Permanent atrial fibrillation (Multi) Atrial fibrillation Hypertension, essential, benign- Primary Essential hypertension, benign Dizziness Dizziness and giddiness Chronic fatigue Other malaise and fatigue 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, without long-term current use of insulin (Multi) Low testosterone in male Skin tear of right elbow without complication, subsequent encounter- Primary Chronic diastolic congestive heart failure 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, without long-term current use of insulin (Multi) Low testosterone in male ALISHA on CPAP Routine general medical examination at health care facility- Primary Routine general medical examination at a health care facility Chronic diastolic congestive heart failure Mixed hyperlipidemia Hypertension, essential, benign Essential hypertension, benign Mild CAD Peripheral arterial occlusive disease (CMS-HCC) Unspecified peripheral vascular disease Permanent atrial fibrillation (Multi) Atrial fibrillation 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, without long-term current use of insulin (Multi) Gastroesophageal reflux disease without esophagitis Esophageal reflux Benign prostatic hyperplasia without lower urinary tract symptoms Major depressive disorder, single episode, in partial remission (CMS-HCC) Major depressive disorder, single episode, in partial or unspecified remission Sacroiliitis (CMS-HCC) Sacroiliitis, not elsewhere classified ALISHA on CPAP Low testosterone 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 Spinal stenosis of lumbar region Generalized osteoarthritis of multiple sites Generalized osteoarthrosis, involving multiple sites 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, 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, without long-term current use of insulin (Multi)- Primary 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 stenosis Spinal stenosis of lumbar region Sacroiliitis (CMS-HCC) Sacroiliitis, not elsewhere classified Generalized osteoarthritis of multiple sites Generalized osteoarthrosis, involving multiple sites 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, lumbosacral region Screening for prostate cancer Special screening for malignant neoplasm of prostate Gastroesophageal reflux disease without esophagitis Esophageal reflux Hypertension, essential, benign Essential hypertension, benign Mixed hyperlipidemia Permanent atrial fibrillation (Multi) Atrial fibrillation Low testosterone in male Chronic diastolic congestive heart failure Peripheral arterial occlusive disease (CMS-HCC) Unspecified peripheral vascular disease 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, without long-term current use of insulin (Multi)- Primary 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 stenosis Spinal stenosis of lumbar region Sacroiliitis (CMS-HCC) Sacroiliitis, not elsewhere classified Generalized osteoarthritis of multiple sites Generalized osteoarthrosis, involving multiple sites 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, lumbosacral region Gastroesophageal reflux disease without esophagitis Esophageal reflux Hypertension, essential, benign Essential hypertension, benign Mixed hyperlipidemia Permanent atrial fibrillation (Multi) Atrial fibrillation Low testosterone in male Chronic diastolic congestive heart failure Elevated PSA measurement Peripheral arterial occlusive disease (CMS-HCC) Unspecified peripheral vascular disease Sinus node dysfunction (Multi) Bradycardia Other specified cardiac dysrhythmias Sinus node dysfunction (Multi) Hypertension, essential, benign Essential hypertension, benign Hyperlipidemia Other and unspecified hyperlipidemia Shortness of breath on exertion Shortness of breath Bradycardia Other specified cardiac dysrhythmias Sinus node dysfunction (Multi) Hypertension, essential, benign Essential hypertension, benign Hyperlipidemia Other and unspecified hyperlipidemia Shortness of breath on exertion Shortness of breath Other forms of dyspnea documented in this encounter [facility] Work Phone: Evaluation note* Diagnosis ALISHA on CPAP- Primary 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, 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 (Multi) Chronic diastolic congestive heart failure (Multi) Hypertension, essential, benign Essential hypertension, benign Peripheral arterial occlusive disease (CMS-HCC) Unspecified peripheral vascular disease Permanent atrial fibrillation (Multi) Atrial fibrillation Sinus node dysfunction (Multi) Gastroesophageal reflux disease without esophagitis Esophageal reflux Benign prostatic hyperplasia without lower urinary tract symptoms Sacroiliitis (CMS-HCC) Sacroiliitis, not elsewhere classified Screening for prostate cancer Special screening for malignant neoplasm of prostate Low testosterone in male Chronic rhinitis Mixed hyperlipidemia- Primary Gastroesophageal reflux disease without esophagitis Esophageal reflux Hypertension, essential, benign Essential hypertension, benign Permanent atrial fibrillation (Multi) Atrial fibrillation Benign prostatic hyperplasia without lower urinary tract symptoms Major depressive disorder, single episode, in partial remission (CMS-HCC) Major depressive disorder, single episode, in partial or unspecified remission COVID-19 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, without long-term current use of insulin (Multi)- Primary Chronic diastolic congestive heart failure (Multi) Mixed hyperlipidemia Hypertension, essential, benign Essential hypertension, benign Mild CAD Peripheral arterial occlusive disease (CMS-HCC) Unspecified peripheral vascular disease Permanent atrial fibrillation (Multi) Atrial fibrillation Gastroesophageal reflux disease without esophagitis Esophageal reflux Benign prostatic hyperplasia without lower urinary tract symptoms Major depressive disorder, single episode, in partial remission (CMS-HCC) Major depressive disorder, single episode, in partial or unspecified remission Sacroiliitis (CMS-HCC) Sacroiliitis, not elsewhere classified ALISHA on CPAP Low testosterone Sinus node dysfunction (Multi) Low testosterone in male Dizziness- Primary Dizziness and giddiness Chronic fatigue Other malaise and fatigue Chronic diastolic congestive heart failure (Multi) Hypertension, essential, benign Essential hypertension, benign Permanent atrial fibrillation (Multi) Atrial fibrillation Hypertension, essential, benign- Primary Essential hypertension, benign Dizziness Dizziness and giddiness Chronic fatigue Other malaise and fatigue 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, without long-term current use of insulin (Multi) Low testosterone in male Skin tear of right elbow without complication, subsequent encounter- Primary Chronic diastolic congestive heart failure (Multi) 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, without long-term current use of insulin (Multi) Low testosterone in male ALISHA on CPAP Routine general medical examination at health care facility- Primary Routine general medical examination at a health care facility Chronic diastolic congestive heart failure (Multi) Mixed hyperlipidemia Hypertension, essential, benign Essential hypertension, benign Mild CAD Peripheral arterial occlusive disease (CMS-HCC) Unspecified peripheral vascular disease Permanent atrial fibrillation (Multi) Atrial fibrillation 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, without long-term current use of insulin (Multi) Gastroesophageal reflux disease without esophagitis Esophageal reflux Benign prostatic hyperplasia without lower urinary tract symptoms Major depressive disorder, single episode, in partial remission (CMS-HCC) Major depressive disorder, single episode, in partial or unspecified remission Sacroiliitis ([facility]-HCC) Sacroiliitis, not elsewhere classified ALISHA on CPAP Low testosterone 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 Spinal stenosis of lumbar region Generalized osteoarthritis of multiple sites Generalized osteoarthrosis, involving multiple sites 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, 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 stenosis- Primary Spinal stenosis of lumbar region Sacroiliitis (CMS-HCC) Sacroiliitis, not elsewhere classified Chronic bilateral low back pain with bilateral sciatica Lumbar radiculopathy Thoracic or lumbosacral neuritis or radiculitis, unspecified Spondylosis of lumbosacral region without myelopathy or radiculopathy Chronic pain of left knee History of left knee replacement documented in this encounter [facility] Work Phone: Evaluation note* Diagnosis ALISHA on CPAP- Primary 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, 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 (Multi) Chronic diastolic congestive heart failure Hypertension, essential, benign Essential hypertension, benign Peripheral arterial occlusive disease (CMS-HCC) Unspecified peripheral vascular disease Permanent atrial fibrillation (Multi) Atrial fibrillation Sinus node dysfunction (Multi) Gastroesophageal reflux disease without esophagitis Esophageal reflux Benign prostatic hyperplasia without lower urinary tract symptoms Sacroiliitis (CMS-HCC) Sacroiliitis, not elsewhere classified Screening for prostate cancer Special screening for malignant neoplasm of prostate Low testosterone in male Chronic rhinitis Mixed hyperlipidemia- Primary Gastroesophageal reflux disease without esophagitis Esophageal reflux Hypertension, essential, benign Essential hypertension, benign Permanent atrial fibrillation (Multi) Atrial fibrillation Benign prostatic hyperplasia without lower urinary tract symptoms Major depressive disorder, single episode, in partial remission (CMS-HCC) Major depressive disorder, single episode, in partial or unspecified remission COVID-19 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, without long-term current use of insulin (Multi)- Primary Chronic diastolic congestive heart failure Mixed hyperlipidemia Hypertension, essential, benign Essential hypertension, benign Mild CAD Peripheral arterial occlusive disease (CMS-HCC) Unspecified peripheral vascular disease Permanent atrial fibrillation (Multi) Atrial fibrillation Gastroesophageal reflux disease without esophagitis Esophageal reflux Benign prostatic hyperplasia without lower urinary tract symptoms Major depressive disorder, single episode, in partial remission (CMS-HCC) Major depressive disorder, single episode, in partial or unspecified remission Sacroiliitis (CMS-HCC) Sacroiliitis, not elsewhere classified ALISHA on CPAP Low testosterone Sinus node dysfunction (Multi) Low testosterone in male Dizziness- Primary Dizziness and giddiness Chronic fatigue Other malaise and fatigue Chronic diastolic congestive heart failure Hypertension, essential, benign Essential hypertension, benign Permanent atrial fibrillation (Multi) Atrial fibrillation Hypertension, essential, benign- Primary Essential hypertension, benign Dizziness Dizziness and giddiness Chronic fatigue Other malaise and fatigue 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, without long-term current use of insulin (Multi) Low testosterone in male Skin tear of right elbow without complication, subsequent encounter- Primary Chronic diastolic congestive heart failure 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, without long-term current use of insulin (Multi) Low testosterone in male ALISHA on CPAP Routine general medical examination at health care facility- Primary Routine general medical examination at a health care facility Chronic diastolic congestive heart failure Mixed hyperlipidemia Hypertension, essential, benign Essential hypertension, benign Mild CAD Peripheral arterial occlusive disease (CMS-HCC) Unspecified peripheral vascular disease Permanent atrial fibrillation (Multi) Atrial fibrillation 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, without long-term current use of insulin (Multi) Gastroesophageal reflux disease without esophagitis Esophageal reflux Benign prostatic hyperplasia without lower urinary tract symptoms Major depressive disorder, single episode, in partial remission ([facility]-HCC) Major depressive disorder, single episode, in partial or unspecified remission Sacroiliitis (CMS-HCC) Sacroiliitis, not elsewhere classified ALISHA on CPAP Low testosterone 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 Spinal stenosis of lumbar region Generalized osteoarthritis of multiple sites Generalized osteoarthrosis, involving multiple sites 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, 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, without long-term current use of insulin (Multi)- Primary 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 stenosis Spinal stenosis of lumbar region Sacroiliitis ([facility]-HCC) Sacroiliitis, not elsewhere classified Generalized osteoarthritis of multiple sites Generalized osteoarthrosis, involving multiple sites 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, lumbosacral region Screening for prostate cancer Special screening for malignant neoplasm of prostate Gastroesophageal reflux disease without esophagitis Esophageal reflux Hypertension, essential, benign Essential hypertension, benign Mixed hyperlipidemia Permanent atrial fibrillation (Multi) Atrial fibrillation Low testosterone in male Chronic diastolic congestive heart failure Peripheral arterial occlusive disease (CMS-HCC) Unspecified peripheral vascular disease 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, without long-term current use of insulin (Multi)- Primary 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 stenosis Spinal stenosis of lumbar region Sacroiliitis (CMS-HCC) Sacroiliitis, not elsewhere classified Generalized osteoarthritis of multiple sites Generalized osteoarthrosis, involving multiple sites 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, lumbosacral region Gastroesophageal reflux disease without esophagitis Esophageal reflux Hypertension, essential, benign Essential hypertension, benign Mixed hyperlipidemia Permanent atrial fibrillation (Multi) Atrial fibrillation Low testosterone in male Chronic diastolic congestive heart failure Elevated PSA measurement Peripheral arterial occlusive disease (CMS-HCC) Unspecified peripheral vascular disease Sinus node dysfunction (Multi) Bronchitis- Primary Bronchitis, not specified as acute or chronic documented in this encounter [facility] Work Phone: Evaluation note* Diagnosis ALISHA on CPAP- Primary 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, 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 (Multi) Chronic diastolic congestive heart failure (Multi) Hypertension, essential, benign Essential hypertension, benign Peripheral arterial occlusive disease (CMS-HCC) Unspecified peripheral vascular disease Permanent atrial fibrillation (Multi) Atrial fibrillation Sinus node dysfunction (Multi) Gastroesophageal reflux disease without esophagitis Esophageal reflux Benign prostatic hyperplasia without lower urinary tract symptoms Sacroiliitis (CMS-HCC) Sacroiliitis, not elsewhere classified Screening for prostate cancer Special screening for malignant neoplasm of prostate Low testosterone in male Chronic rhinitis Mixed hyperlipidemia- Primary Gastroesophageal reflux disease without esophagitis Esophageal reflux Hypertension, essential, benign Essential hypertension, benign Permanent atrial fibrillation (Multi) Atrial fibrillation Benign prostatic hyperplasia without lower urinary tract symptoms Major depressive disorder, single episode, in partial remission (CMS-HCC) Major depressive disorder, single episode, in partial or unspecified remission COVID-19 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, without long-term current use of insulin (Multi)- Primary Chronic diastolic congestive heart failure (Multi) Mixed hyperlipidemia Hypertension, essential, benign Essential hypertension, benign Mild CAD Peripheral arterial occlusive disease (CMS-HCC) Unspecified peripheral vascular disease Permanent atrial fibrillation (Multi) Atrial fibrillation Gastroesophageal reflux disease without esophagitis Esophageal reflux Benign prostatic hyperplasia without lower urinary tract symptoms Major depressive disorder, single episode, in partial remission (CMS-HCC) Major depressive disorder, single episode, in partial or unspecified remission Sacroiliitis (CMS-HCC) Sacroiliitis, not elsewhere classified ALISHA on CPAP Low testosterone Sinus node dysfunction (Multi) Low testosterone in male Dizziness- Primary Dizziness and giddiness Chronic fatigue Other malaise and fatigue Chronic diastolic congestive heart failure (Multi) Hypertension, essential, benign Essential hypertension, benign Permanent atrial fibrillation (Multi) Atrial fibrillation Hypertension, essential, benign- Primary Essential hypertension, benign Dizziness Dizziness and giddiness Chronic fatigue Other malaise and fatigue 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, without long-term current use of insulin (Multi) Low testosterone in male Skin tear of right elbow without complication, subsequent encounter- Primary Chronic diastolic congestive heart failure (Multi) 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, without long-term current use of insulin (Multi) Low testosterone in male ALISHA on CPAP Routine general medical examination at health care facility- Primary Routine general medical examination at a health care facility Chronic diastolic congestive heart failure (Multi) Mixed hyperlipidemia Hypertension, essential, benign Essential hypertension, benign Mild CAD Peripheral arterial occlusive disease (CMS-HCC) Unspecified peripheral vascular disease Permanent atrial fibrillation (Multi) Atrial fibrillation 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, without long-term current use of insulin (Multi) Gastroesophageal reflux disease without esophagitis Esophageal reflux Benign prostatic hyperplasia without lower urinary tract symptoms Major depressive disorder, single episode, in partial remission (CMS-HCC) Major depressive disorder, single episode, in partial or unspecified remission Sacroiliitis (CMS-HCC) Sacroiliitis, not elsewhere classified ALISHA on CPAP Low testosterone 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 Spinal stenosis of lumbar region Generalized osteoarthritis of multiple sites Generalized osteoarthrosis, involving multiple sites 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, 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, without long-term current use of insulin (Multi)- Primary 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 stenosis Spinal stenosis of lumbar region Sacroiliitis (CMS-HCC) Sacroiliitis, not elsewhere classified Generalized osteoarthritis of multiple sites Generalized osteoarthrosis, involving multiple sites 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, lumbosacral region Screening for prostate cancer Special screening for malignant neoplasm of prostate Gastroesophageal reflux disease without esophagitis Esophageal reflux Hypertension, essential, benign Essential hypertension, benign Mixed hyperlipidemia Permanent atrial fibrillation (Multi) Atrial fibrillation Low testosterone in male Chronic diastolic congestive heart failure (Multi) Peripheral arterial occlusive disease (CMS-HCC) Unspecified peripheral vascular disease Lumbar radiculopathy- Primary Thoracic or lumbosacral neuritis or radiculitis, unspecified 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 stenosis Spinal stenosis of lumbar region 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 Chronic pain of left knee documented in this encounter [facility] Work Phone: Evaluation note* Diagnosis ALISHA on CPAP- Primary 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, 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) Chronic diastolic congestive heart failure (Multi) Hypertension, essential, benign Essential hypertension, benign Peripheral arterial occlusive disease (CMS-HCC) Unspecified peripheral vascular disease Permanent atrial fibrillation (Multi) Atrial fibrillation Sinus node dysfunction (Multi) Gastroesophageal reflux disease without esophagitis Esophageal reflux Benign prostatic hyperplasia without lower urinary tract symptoms Sacroiliitis (CMS-HCC) Sacroiliitis, not elsewhere classified Screening for prostate cancer Special screening for malignant neoplasm of prostate Low testosterone in male Chronic rhinitis Mixed hyperlipidemia- Primary Gastroesophageal reflux disease without esophagitis Esophageal reflux Hypertension, essential, benign Essential hypertension, benign Permanent atrial fibrillation (Multi) Atrial fibrillation Benign prostatic hyperplasia without lower urinary tract symptoms Major depressive disorder, single episode, in partial remission (CMS-HCC) Major depressive disorder, single episode, in partial or unspecified remission COVID-19 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, without long-term current use of insulin (Multi)- Primary Chronic diastolic congestive heart failure (Multi) Mixed hyperlipidemia Hypertension, essential, benign Essential hypertension, benign Mild CAD Peripheral arterial occlusive disease (CMS-HCC) Unspecified peripheral vascular disease Permanent atrial fibrillation (Multi) Atrial fibrillation Gastroesophageal reflux disease without esophagitis Esophageal reflux Benign prostatic hyperplasia without lower urinary tract symptoms Major depressive disorder, single episode, in partial remission (CMS-HCC) Major depressive disorder, single episode, in partial or unspecified remission Sacroiliitis (CMS-HCC) Sacroiliitis, not elsewhere classified ALISHA on CPAP Low testosterone Sinus node dysfunction (Multi) Low testosterone in male Dizziness- Primary Dizziness and giddiness Chronic fatigue Other malaise and fatigue Chronic diastolic congestive heart failure (Multi) Hypertension, essential, benign Essential hypertension, benign Permanent atrial fibrillation (Multi) Atrial fibrillation Hypertension, essential, benign- Primary Essential hypertension, benign Dizziness Dizziness and giddiness Chronic fatigue Other malaise and fatigue 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, without long-term current use of insulin (Multi) Low testosterone in male Skin tear of right elbow without complication, subsequent encounter- Primary Chronic diastolic congestive heart failure (Multi) 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, without long-term current use of insulin (Multi) Low testosterone in male ALISHA on CPAP Routine general medical examination at health care facility- Primary Routine general medical examination at a health care facility Chronic diastolic congestive heart failure (Multi) Mixed hyperlipidemia Hypertension, essential, benign Essential hypertension, benign Mild CAD Peripheral arterial occlusive disease (CMS-HCC) Unspecified peripheral vascular disease Permanent atrial fibrillation (Multi) Atrial fibrillation 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, without long-term current use of insulin (Multi) Gastroesophageal reflux disease without esophagitis Esophageal reflux Benign prostatic hyperplasia without lower urinary tract symptoms Major depressive disorder, single episode, in partial remission (CMS-HCC) Major depressive disorder, single episode, in partial or unspecified remission Sacroiliitis (CMS-HCC) Sacroiliitis, not elsewhere classified ALISHA on CPAP Low testosterone 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 Spinal stenosis of lumbar region Generalized osteoarthritis of multiple sites Generalized osteoarthrosis, involving multiple sites 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, 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, without long-term current use of insulin (Multi)- Primary 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 stenosis Spinal stenosis of lumbar region Sacroiliitis (CMS-HCC) Sacroiliitis, not elsewhere classified Generalized osteoarthritis of multiple sites Generalized osteoarthrosis, involving multiple sites 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, lumbosacral region Screening for prostate cancer Special screening for malignant neoplasm of prostate Gastroesophageal reflux disease without esophagitis Esophageal reflux Hypertension, essential, benign Essential hypertension, benign Mixed hyperlipidemia Permanent atrial fibrillation (Multi) Atrial fibrillation Low testosterone in male Chronic diastolic congestive heart failure (Multi) Peripheral arterial occlusive disease (CMS-HCC) Unspecified peripheral vascular disease Bradycardia- Primary Other specified cardiac dysrhythmias Atrial fibrillation, unspecified type (Multi) Sinus node dysfunction (Multi) Chronic heart failure with normal ejection fraction (Multi) documented in this encounter [facility] Work Phone: Evaluation note* Diagnosis ALISHA on CPAP- Primary 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, 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 (Multi) Chronic diastolic congestive heart failure (Multi) Hypertension, essential, benign Essential hypertension, benign Peripheral arterial occlusive disease (CMS-HCC) Unspecified peripheral vascular disease Permanent atrial fibrillation (Multi) Atrial fibrillation Sinus node dysfunction (Multi) Gastroesophageal reflux disease without esophagitis Esophageal reflux Benign prostatic hyperplasia without lower urinary tract symptoms Sacroiliitis (CMS-HCC) Sacroiliitis, not elsewhere classified Screening for prostate cancer Special screening for malignant neoplasm of prostate Low testosterone in male Chronic rhinitis Mixed hyperlipidemia- Primary Gastroesophageal reflux disease without esophagitis Esophageal reflux Hypertension, essential, benign Essential hypertension, benign Permanent atrial fibrillation (Multi) Atrial fibrillation Benign prostatic hyperplasia without lower urinary tract symptoms Major depressive disorder, single episode, in partial remission (CMS-HCC) Major depressive disorder, single episode, in partial or unspecified remission COVID-19 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, without long-term current use of insulin (Multi)- Primary Chronic diastolic congestive heart failure (Multi) Mixed hyperlipidemia Hypertension, essential, benign Essential hypertension, benign Mild CAD Peripheral arterial occlusive disease (CMS-HCC) Unspecified peripheral vascular disease Permanent atrial fibrillation (Multi) Atrial fibrillation Gastroesophageal reflux disease without esophagitis Esophageal reflux Benign prostatic hyperplasia without lower urinary tract symptoms Major depressive disorder, single episode, in partial remission (CMS-HCC) Major depressive disorder, single episode, in partial or unspecified remission Sacroiliitis (CMS-HCC) Sacroiliitis, not elsewhere classified ALISHA on CPAP Low testosterone Sinus node dysfunction (Multi) Low testosterone in male Dizziness- Primary Dizziness and giddiness Chronic fatigue Other malaise and fatigue Chronic diastolic congestive heart failure (Multi) Hypertension, essential, benign Essential hypertension, benign Permanent atrial fibrillation (Multi) Atrial fibrillation Hypertension, essential, benign- Primary Essential hypertension, benign Dizziness Dizziness and giddiness Chronic fatigue Other malaise and fatigue 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, without long-term current use of insulin (Multi) Low testosterone in male Skin tear of right elbow without complication, subsequent encounter- Primary Chronic diastolic congestive heart failure (Multi) 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, without long-term current use of insulin (Multi) Low testosterone in male ALISHA on CPAP Routine general medical examination at health care facility- Primary Routine general medical examination at a health care facility Chronic diastolic congestive heart failure (Multi) Mixed hyperlipidemia Hypertension, essential, benign Essential hypertension, benign Mild CAD Peripheral arterial occlusive disease (CMS-HCC) Unspecified peripheral vascular disease Permanent atrial fibrillation (Multi) Atrial fibrillation 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, without long-term current use of insulin (Multi) Gastroesophageal reflux disease without esophagitis Esophageal reflux Benign prostatic hyperplasia without lower urinary tract symptoms Major depressive disorder, single episode, in partial remission (CMS-HCC) Major depressive disorder, single episode, in partial or unspecified remission Sacroiliitis (CMS-HCC) Sacroiliitis, not elsewhere classified ALISHA on CPAP Low testosterone 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 Spinal stenosis of lumbar region Generalized osteoarthritis of multiple sites Generalized osteoarthrosis, involving multiple sites 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, 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, without long-term current use of insulin (Multi)- Primary 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 stenosis Spinal stenosis of lumbar region Sacroiliitis (CMS-HCC) Sacroiliitis, not elsewhere classified Generalized osteoarthritis of multiple sites Generalized osteoarthrosis, involving multiple sites 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, lumbosacral region Screening for prostate cancer Special screening for malignant neoplasm of prostate Gastroesophageal reflux disease without esophagitis Esophageal reflux Hypertension, essential, benign Essential hypertension, benign Mixed hyperlipidemia Permanent atrial fibrillation (Multi) Atrial fibrillation Low testosterone in male Chronic diastolic congestive heart failure (Multi) Peripheral arterial occlusive disease (CMS-HCC) Unspecified peripheral vascular disease Cardiac pacemaker in situ Sinoatrial node dysfunction (Multi) Sinoatrial node dysfunction documented in this encounter [facility] Work Phone: Evaluation note* Diagnosis ALISHA on CPAP- Primary 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, 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) Chronic diastolic congestive heart failure Hypertension, essential, benign Essential hypertension, benign Peripheral arterial occlusive disease (CMS-HCC) Unspecified peripheral vascular disease Permanent atrial fibrillation (Multi) Atrial fibrillation Sinus node dysfunction (Multi) Gastroesophageal reflux disease without esophagitis Esophageal reflux Benign prostatic hyperplasia without lower urinary tract symptoms Sacroiliitis (CMS-HCC) Sacroiliitis, not elsewhere classified Screening for prostate cancer Special screening for malignant neoplasm of prostate Low testosterone in male Chronic rhinitis Mixed hyperlipidemia- Primary Gastroesophageal reflux disease without esophagitis Esophageal reflux Hypertension, essential, benign Essential hypertension, benign Permanent atrial fibrillation (Multi) Atrial fibrillation Benign prostatic hyperplasia without lower urinary tract symptoms Major depressive disorder, single episode, in partial remission (CMS-HCC) Major depressive disorder, single episode, in partial or unspecified remission COVID-19 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, without long-term current use of insulin (Multi)- Primary Chronic diastolic congestive heart failure Mixed hyperlipidemia Hypertension, essential, benign Essential hypertension, benign Mild CAD Peripheral arterial occlusive disease (CMS-HCC) Unspecified peripheral vascular disease Permanent atrial fibrillation (Multi) Atrial fibrillation Gastroesophageal reflux disease without esophagitis Esophageal reflux Benign prostatic hyperplasia without lower urinary tract symptoms Major depressive disorder, single episode, in partial remission (CMS-HCC) Major depressive disorder, single episode, in partial or unspecified remission Sacroiliitis (CMS-HCC) Sacroiliitis, not elsewhere classified ALISHA on CPAP Low testosterone Sinus node dysfunction (Multi) Low testosterone in male Dizziness- Primary Dizziness and giddiness Chronic fatigue Other malaise and fatigue Chronic diastolic congestive heart failure Hypertension, essential, benign Essential hypertension, benign Permanent atrial fibrillation (Multi) Atrial fibrillation Hypertension, essential, benign- Primary Essential hypertension, benign Dizziness Dizziness and giddiness Chronic fatigue Other malaise and fatigue 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, without long-term current use of insulin (Multi) Low testosterone in male Skin tear of right elbow without complication, subsequent encounter- Primary Chronic diastolic congestive heart failure 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, without long-term current use of insulin (Multi) Low testosterone in male ALISHA on CPAP Routine general medical examination at health care facility- Primary Routine general medical examination at a health care facility Chronic diastolic congestive heart failure Mixed hyperlipidemia Hypertension, essential, benign Essential hypertension, benign Mild CAD Peripheral arterial occlusive disease ([facility]-HCC) Unspecified peripheral vascular disease Permanent atrial fibrillation (Multi) Atrial fibrillation 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, without long-term current use of insulin (Multi) Gastroesophageal reflux disease without esophagitis Esophageal reflux Benign prostatic hyperplasia without lower urinary tract symptoms Major depressive disorder, single episode, in partial remission (CMS-HCC) Major depressive disorder, single episode, in partial or unspecified remission Sacroiliitis ([facility]-HCC) Sacroiliitis, not elsewhere classified ALISHA on CPAP Low testosterone 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 Spinal stenosis of lumbar region Generalized osteoarthritis of multiple sites Generalized osteoarthrosis, involving multiple sites 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, 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, without long-term current use of insulin (Multi)- Primary 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 stenosis Spinal stenosis of lumbar region Sacroiliitis (CMS-HCC) Sacroiliitis, not elsewhere classified Generalized osteoarthritis of multiple sites Generalized osteoarthrosis, involving multiple sites 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, lumbosacral region Screening for prostate cancer Special screening for malignant neoplasm of prostate Gastroesophageal reflux disease without esophagitis Esophageal reflux Hypertension, essential, benign Essential hypertension, benign Mixed hyperlipidemia Permanent atrial fibrillation (Multi) Atrial fibrillation Low testosterone in male Chronic diastolic congestive heart failure Peripheral arterial occlusive disease (CMS-HCC) Unspecified peripheral vascular disease 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, without long-term current use of insulin (Multi)- Primary 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 stenosis Spinal stenosis of lumbar region Sacroiliitis (CMS-HCC) Sacroiliitis, not elsewhere classified Generalized osteoarthritis of multiple sites Generalized osteoarthrosis, involving multiple sites 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, lumbosacral region Gastroesophageal reflux disease without esophagitis Esophageal reflux Hypertension, essential, benign Essential hypertension, benign Mixed hyperlipidemia Permanent atrial fibrillation (Multi) Atrial fibrillation Low testosterone in male Chronic diastolic congestive heart failure Elevated PSA measurement Peripheral arterial occlusive disease (CMS-HCC) Unspecified peripheral vascular disease Sinus node dysfunction (Multi) Persistent atrial fibrillation (Multi) Atrial fibrillation Pacing-induced cardiomyopathy (Multi) Bronchitis- Primary Bronchitis, not specified as acute or chronic 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, without long-term current use of insulin (Multi) Chronic diastolic congestive heart failure Permanent atrial fibrillation (Multi) Atrial fibrillation Gastroesophageal reflux disease without esophagitis Esophageal reflux Benign prostatic hyperplasia without lower urinary tract symptoms Chronic rhinitis Mixed hyperlipidemia Hyperthyroidism Thyrotoxicosis 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 or other cause, without mention of thyrotoxic crisis or storm Persistent atrial fibrillation (Multi) Atrial fibrillation Pacing-induced cardiomyopathy (Multi) documented in this encounter [facility] Work Phone: Evaluation note* Diagnosis Pre-operative cardiovascular examination- Primary Lumbar stenosis with neurogenic claudication- Primary Spinal stenosis, lumbar region, with neurogenic claudication DDD (degenerative disc disease), lumbar Degeneration of lumbar or lumbosacral intervertebral disc Hyperthyroidism- Primary Thyrotoxicosis 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 or other cause, without mention of thyrotoxic crisis or storm [facility] ALISHA on CPAP- Primary 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, 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 (Multi) Chronic diastolic congestive heart failure Hypertension, essential, benign Essential hypertension, benign Peripheral arterial occlusive disease (CMS-HCC) Unspecified peripheral vascular disease Permanent atrial fibrillation (Multi) Atrial fibrillation Sinus node dysfunction (Multi) Gastroesophageal reflux disease without esophagitis Esophageal reflux Benign prostatic hyperplasia without lower urinary tract symptoms Sacroiliitis (CMS-HCC) Sacroiliitis, not elsewhere classified Screening for prostate cancer Special screening for malignant neoplasm of prostate Low testosterone in male Chronic rhinitis Mixed hyperlipidemia- Primary Gastroesophageal reflux disease without esophagitis Esophageal reflux Hypertension, essential, benign Essential hypertension, benign Permanent atrial fibrillation (Multi) Atrial fibrillation Benign prostatic hyperplasia without lower urinary tract symptoms Major depressive disorder, single episode, in partial remission (CMS-HCC) Major depressive disorder, single episode, in partial or unspecified remission COVID-19 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, without long-term current use of insulin (Multi)- Primary Chronic diastolic congestive heart failure Mixed hyperlipidemia Hypertension, essential, benign Essential hypertension, benign Mild CAD Peripheral arterial occlusive disease (CMS-HCC) Unspecified peripheral vascular disease Permanent atrial fibrillation (Multi) Atrial fibrillation Gastroesophageal reflux disease without esophagitis Esophageal reflux Benign prostatic hyperplasia without lower urinary tract symptoms Major depressive disorder, single episode, in partial remission (CMS-HCC) Major depressive disorder, single episode, in partial or unspecified remission Sacroiliitis (CMS-HCC) Sacroiliitis, not elsewhere classified ALISHA on CPAP Low testosterone Sinus node dysfunction (Multi) Low testosterone in male Dizziness- Primary Dizziness and giddiness Chronic fatigue Other malaise and fatigue Chronic diastolic congestive heart failure Hypertension, essential, benign Essential hypertension, benign Permanent atrial fibrillation (Multi) Atrial fibrillation Hypertension, essential, benign- Primary Essential hypertension, benign Dizziness Dizziness and giddiness Chronic fatigue Other malaise and fatigue 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, without long-term current use of insulin (Multi) Low testosterone in male Skin tear of right elbow without complication, subsequent encounter- Primary Chronic diastolic congestive heart failure 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, without long-term current use of insulin (Multi) Low testosterone in male ALISHA on CPAP Routine general medical examination at health care facility- Primary Routine general medical examination at a health care facility Chronic diastolic congestive heart failure Mixed hyperlipidemia Hypertension, essential, benign Essential hypertension, benign Mild CAD Peripheral arterial occlusive disease (CMS-HCC) Unspecified peripheral vascular disease Permanent atrial fibrillation (Multi) Atrial fibrillation Type 2 diabetes mellitus without complication, without long-term current use of insulin (Multi) Gastroesophageal reflux disease without esophagitis Esophageal reflux Benign prostatic hyperplasia without lower urinary tract symptoms Major depressive disorder, single episode, in partial remission (CMS-HCC) Major depressive disorder, single episode, in partial or unspecified remission Sacroiliitis (CMS-HCC) Sacroiliitis, not elsewhere classified ALISHA on CPAP Low testosterone 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 Spinal stenosis of lumbar region Generalized osteoarthritis of multiple sites Generalized osteoarthrosis, involving multiple sites 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, 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 Type 2 diabetes mellitus without complication, without long-term current use of insulin (Multi)- Primary 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 stenosis Spinal stenosis of lumbar region Sacroiliitis ([facility]-HCC) Sacroiliitis, not elsewhere classified Generalized osteoarthritis of multiple sites Generalized osteoarthrosis, involving multiple sites 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, lumbosacral region Screening for prostate cancer Special screening for malignant neoplasm of prostate Gastroesophageal reflux disease without esophagitis Esophageal reflux Hypertension, essential, benign Essential hypertension, benign Mixed hyperlipidemia Permanent atrial fibrillation (Multi) Atrial fibrillation Low testosterone in male Chronic diastolic congestive heart failure Peripheral arterial occlusive disease ([facility]-HCC) Unspecified peripheral vascular disease Type 2 diabetes mellitus without complication, without long-term current use of insulin (Multi)- Primary 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 stenosis Spinal stenosis of lumbar region Sacroiliitis ([facility]-HCC) Sacroiliitis, not elsewhere classified Generalized osteoarthritis of multiple sites Generalized osteoarthrosis, involving multiple sites 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, lumbosacral region Gastroesophageal reflux disease without esophagitis Esophageal reflux Hypertension, essential, benign Essential hypertension, benign Mixed hyperlipidemia Permanent atrial fibrillation (Multi) Atrial fibrillation Low testosterone in male Chronic diastolic congestive heart failure Elevated PSA measurement Peripheral arterial occlusive disease ([facility]) Unspecified peripheral vascular disease Sinus node dysfunction (Multi) Persistent atrial fibrillation (Multi) Atrial fibrillation Pacing-induced cardiomyopathy (Multi) Bronchitis- Primary Bronchitis, not specified as acute or chronic Type 2 diabetes mellitus without complication, without long-term current use of insulin (Multi) Chronic diastolic congestive heart failure Permanent atrial fibrillation (Multi) Atrial fibrillation Gastroesophageal reflux disease without esophagitis Esophageal reflux Benign prostatic hyperplasia without lower urinary tract symptoms Chronic rhinitis Mixed hyperlipidemia Hyperthyroidism Thyrotoxicosis 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 or other cause, without mention of thyrotoxic crisis or storm Obstructive sleep apnea on CPAP 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 stenosis Spinal stenosis of lumbar region Sacroiliitis ([facility]-HCC) Sacroiliitis, not elsewhere classified Generalized osteoarthritis of multiple sites Generalized osteoarthrosis, involving multiple sites 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, lumbosacral region Persistent atrial fibrillation (Multi) Atrial fibrillation Pacing-induced cardiomyopathy (Multi) documented in this encounter [facility] Work Phone: Evaluation note* Diagnosis Pre-operative cardiovascular examination- Primary Lumbar stenosis with neurogenic claudication- Primary Spinal stenosis, lumbar region, with neurogenic claudication DDD (degenerative disc disease), lumbar Degeneration of lumbar or lumbosacral intervertebral disc Thyrotoxicosis without thyroid storm, unspecified thyrotoxicosis type- Primary Hyperthyroidism Thyrotoxicosis 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 or other cause, without mention of thyrotoxic crisis or storm [facility] Pre-[facility] cardiovascular examination- Primary Lumbar stenosis with neurogenic claudication- Primary Spinal stenosis, lumbar region, with neurogenic claudication DDD (degenerative disc disease), lumbar Degeneration of lumbar or lumbosacral intervertebral disc Thyroid nodule- Primary Nontoxic uninodular goiter [facility] AL[facility]HA [facility]- Primary Type 2 diabetes mellitus without complication, 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 (Multi) Chronic diastolic congestive heart failure Hypertension, essential, benign Essential hypertension, benign Peripheral arterial occlusive disease (CMS-HCC) Unspecified peripheral vascular disease Permanent atrial fibrillation (Multi) Atrial fibrillation Sinus node dysfunction (Multi) Gastroesophageal reflux disease without esophagitis Esophageal reflux Benign prostatic hyperplasia without lower urinary tract symptoms Sacroiliitis (CMS-HCC) Sacroiliitis, not elsewhere classified Screening for prostate cancer Special screening for malignant neoplasm of prostate Low testosterone in male Chronic rhinitis Mixed hyperlipidemia- Primary Gastroesophageal reflux disease without esophagitis Esophageal reflux Hypertension, essential, benign Essential hypertension, benign Permanent atrial fibrillation (Multi) Atrial fibrillation Benign prostatic hyperplasia without lower urinary tract symptoms Major depressive disorder, single episode, in partial remission (CMS-HCC) Major depressive disorder, single episode, in partial or unspecified remission COVID-19 Type 2 diabetes mellitus without complication, without long-term current use of insulin (Multi)- Primary Chronic diastolic congestive heart failure Mixed hyperlipidemia Hypertension, essential, benign Essential hypertension, benign Mild CAD Peripheral arterial occlusive disease (CMS-HCC) Unspecified peripheral vascular disease Permanent atrial fibrillation (Multi) Atrial fibrillation Gastroesophageal reflux disease without esophagitis Esophageal reflux Benign prostatic hyperplasia without lower urinary tract symptoms Major depressive disorder, single episode, in partial remission (CMS-HCC) Major depressive disorder, single episode, in partial or unspecified remission Sacroiliitis (CMS-HCC) Sacroiliitis, not elsewhere classified ALISHA on CPAP Low testosterone Sinus node dysfunction (Multi) Low testosterone in male Dizziness- Primary Dizziness and giddiness Chronic fatigue Other malaise and fatigue Chronic diastolic congestive heart failure Hypertension, essential, benign Essential hypertension, benign Permanent atrial fibrillation (Multi) Atrial fibrillation Hypertension, essential, benign- Primary Essential hypertension, benign Dizziness Dizziness and giddiness Chronic fatigue Other malaise and fatigue Type 2 diabetes mellitus without complication, without long-term current use of insulin (Multi) Low testosterone in male Skin tear of right elbow without complication, subsequent encounter- Primary Chronic diastolic congestive heart failure Type 2 diabetes mellitus without complication, without long-term current use of insulin (Multi) Low testosterone in male ALISHA on CPAP Routine general medical examination at health care facility- Primary Routine general medical examination at a health care facility Chronic diastolic congestive heart failure Mixed hyperlipidemia Hypertension, essential, benign Essential hypertension, benign Mild CAD Peripheral arterial occlusive disease (CMS-HCC) Unspecified peripheral vascular disease Permanent atrial fibrillation (Multi) Atrial fibrillation Type 2 diabetes mellitus without complication, without long-term current use of insulin (Multi) Gastroesophageal reflux disease without esophagitis Esophageal reflux Benign prostatic hyperplasia without lower urinary tract symptoms Major depressive disorder, single episode, in partial remission (CMS-HCC) Major depressive disorder, single episode, in partial or unspecified remission Sacroiliitis (CMS-HCC) Sacroiliitis, not elsewhere classified ALISHA on CPAP Low testosterone 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 Spinal stenosis of lumbar region Generalized osteoarthritis of multiple sites Generalized osteoarthrosis, involving multiple sites 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, 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 Type 2 diabetes mellitus without complication, without long-term current use of insulin (Multi)- Primary 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 stenosis Spinal stenosis of lumbar region Sacroiliitis (CMS-HCC) Sacroiliitis, not elsewhere classified Generalized osteoarthritis of multiple sites Generalized osteoarthrosis, involving multiple sites 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, lumbosacral region Screening for prostate cancer Special screening for malignant neoplasm of prostate Gastroesophageal reflux disease without esophagitis Esophageal reflux Hypertension, essential, benign Essential hypertension, benign Mixed hyperlipidemia Permanent atrial fibrillation (Multi) Atrial fibrillation Low testosterone in male Chronic diastolic congestive heart failure Peripheral arterial occlusive disease (CMS-HCC) Unspecified peripheral vascular disease Type 2 diabetes mellitus without complication, without long-term current use of insulin (Multi)- Primary 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 stenosis Spinal stenosis of lumbar region Sacroiliitis (CMS-HCC) Sacroiliitis, not elsewhere classified Generalized osteoarthritis of multiple sites Generalized osteoarthrosis, involving multiple sites 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, lumbosacral region Gastroesophageal reflux disease without esophagitis Esophageal reflux Hypertension, essential, benign Essential hypertension, benign Mixed hyperlipidemia Permanent atrial fibrillation (Multi) Atrial fibrillation Low testosterone in male Chronic diastolic congestive heart failure Elevated PSA measurement Peripheral arterial occlusive disease (CMS-HCC) Unspecified peripheral vascular disease Sinus node dysfunction (Multi) Persistent atrial fibrillation (Multi) Atrial fibrillation Pacing-induced cardiomyopathy (Multi) Bronchitis- Primary Bronchitis, not specified as acute or chronic Type 2 diabetes mellitus without complication, without long-term current use of insulin (Multi) Chronic diastolic congestive heart failure Permanent atrial fibrillation (Multi) Atrial fibrillation Gastroesophageal reflux disease without esophagitis Esophageal reflux Benign prostatic hyperplasia without lower urinary tract symptoms Chronic rhinitis Mixed hyperlipidemia Hyperthyroidism Thyrotoxicosis 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 or other cause, without mention of thyrotoxic crisis or storm Obstructive sleep apnea on CPAP Longstanding persistent atrial fibrillation (Multi)- Primary Mixed hyperlipidemia Hypertension, essential, benign Essential hypertension, benign SSS (sick sinus syndrome) (Multi) Sinoatrial node dysfunction Heart failure with mildly reduced ejection fraction (HFmrEF) Persistent atrial fibrillation (Multi) Atrial fibrillation Pacing-induced cardiomyopathy (Multi) documented in this encounter [facility] Work Phone: Evaluation note* Diagnosis ALISHA on CPAP- Primary Type 2 diabetes mellitus without complication, 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 (Multi) Chronic diastolic congestive heart failure Hypertension, essential, benign Essential hypertension, benign Peripheral arterial occlusive disease (CMS-HCC) Unspecified peripheral vascular disease Permanent atrial fibrillation (Multi) Atrial fibrillation Sinus node dysfunction (Multi) Gastroesophageal reflux disease without esophagitis Esophageal reflux Benign prostatic hyperplasia without lower urinary tract symptoms Sacroiliitis (CMS-HCC) Sacroiliitis, not elsewhere classified Screening for prostate cancer Special screening for malignant neoplasm of prostate Low testosterone in male Chronic rhinitis Mixed hyperlipidemia- Primary Gastroesophageal reflux disease without esophagitis Esophageal reflux Hypertension, essential, benign Essential hypertension, benign Permanent atrial fibrillation (Multi) Atrial fibrillation Benign prostatic hyperplasia without lower urinary tract symptoms Major depressive disorder, single episode, in partial remission (CMS-HCC) Major depressive disorder, single episode, in partial or unspecified remission COVID-19 Type 2 diabetes mellitus without complication, without long-term current use of insulin (Multi)- Primary Chronic diastolic congestive heart failure Mixed hyperlipidemia Hypertension, essential, benign Essential hypertension, benign Mild CAD Peripheral arterial occlusive disease (CMS-HCC) Unspecified peripheral vascular disease Permanent atrial fibrillation (Multi) Atrial fibrillation Gastroesophageal reflux disease without esophagitis Esophageal reflux Benign prostatic hyperplasia without lower urinary tract symptoms Major depressive disorder, single episode, in partial remission (CMS-HCC) Major depressive disorder, single episode, in partial or unspecified remission Sacroiliitis (CMS-HCC) Sacroiliitis, not elsewhere classified ALISHA on CPAP Low testosterone Sinus node dysfunction (Multi) Low testosterone in male Dizziness- Primary Dizziness and giddiness Chronic fatigue Other malaise and fatigue Chronic diastolic congestive heart failure Hypertension, essential, benign Essential hypertension, benign Permanent atrial fibrillation (Multi) Atrial fibrillation Hypertension, essential, benign- Primary Essential hypertension, benign Dizziness Dizziness and giddiness Chronic fatigue Other malaise and fatigue Type 2 diabetes mellitus without complication, without long-term current use of insulin (Multi) Low testosterone in male Skin tear of right elbow without complication, subsequent encounter- Primary Chronic diastolic congestive heart failure Type 2 diabetes mellitus without complication, without long-term current use of insulin (Multi) Low testosterone in male ALISHA on CPAP Routine general medical examination at health care facility- Primary Routine general medical examination at a health care facility Chronic diastolic congestive heart failure Mixed hyperlipidemia Hypertension, essential, benign Essential hypertension, benign Mild CAD Peripheral arterial occlusive disease (CMS-HCC) Unspecified peripheral vascular disease Permanent atrial fibrillation (Multi) Atrial fibrillation Type 2 diabetes mellitus without complication, without long-term current use of insulin (Multi) Gastroesophageal reflux disease without esophagitis Esophageal reflux Benign prostatic hyperplasia without lower urinary tract symptoms Major depressive disorder, single episode, in partial remission (CMS-HCC) Major depressive disorder, single episode, in partial or unspecified remission Sacroiliitis ([facility]-HCC) Sacroiliitis, not elsewhere classified ALISHA on CPAP Low testosterone 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 Spinal stenosis of lumbar region Generalized osteoarthritis of multiple sites Generalized osteoarthrosis, involving multiple sites 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, 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 Type 2 diabetes mellitus without complication, without long-term current use of insulin (Multi)- Primary 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 stenosis Spinal stenosis of lumbar region Sacroiliitis (CMS-HCC) Sacroiliitis, not elsewhere classified Generalized osteoarthritis of multiple sites Generalized osteoarthrosis, involving multiple sites 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, lumbosacral region Screening for prostate cancer Special screening for malignant neoplasm of prostate Gastroesophageal reflux disease without esophagitis Esophageal reflux Hypertension, essential, benign Essential hypertension, benign Mixed hyperlipidemia Permanent atrial fibrillation (Multi) Atrial fibrillation Low testosterone in male Chronic diastolic congestive heart failure Peripheral arterial occlusive disease (CMS-HCC) Unspecified peripheral vascular disease Type 2 diabetes mellitus without complication, without long-term current use of insulin (Multi)- Primary 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 stenosis Spinal stenosis of lumbar region Sacroiliitis (CMS-HCC) Sacroiliitis, not elsewhere classified Generalized osteoarthritis of multiple sites Generalized osteoarthrosis, involving multiple sites 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, lumbosacral region Gastroesophageal reflux disease without esophagitis Esophageal reflux Hypertension, essential, benign Essential hypertension, benign Mixed hyperlipidemia Permanent atrial fibrillation (Multi) Atrial fibrillation Low testosterone in male Chronic diastolic congestive heart failure Elevated PSA measurement Peripheral arterial occlusive disease (CMS-HCC) Unspecified peripheral vascular disease Sinus node dysfunction (Multi) Persistent atrial fibrillation (Multi) Atrial fibrillation Pacing-induced cardiomyopathy (Multi) Bronchitis- Primary Bronchitis, not specified as acute or chronic Type 2 diabetes mellitus without complication, without long-term current use of insulin (Multi) Chronic diastolic congestive heart failure Permanent atrial fibrillation (Multi) Atrial fibrillation Gastroesophageal reflux disease without esophagitis Esophageal reflux Benign prostatic hyperplasia without lower urinary tract symptoms Chronic rhinitis Mixed hyperlipidemia Hyperthyroidism Thyrotoxicosis 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 or other cause, without mention of thyrotoxic crisis or storm Obstructive sleep apnea on CPAP Cardiac pacemaker in situ Sinoatrial node dysfunction (Multi) Sinoatrial node dysfunction Persistent atrial fibrillation (Multi) Atrial fibrillation Pacing-induced cardiomyopathy (Multi) documented in this encounter [facility] Work Phone: Evaluation note* Diagnosis ALISHA on CPAP- Primary Type 2 diabetes mellitus without complication, 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 (Multi) Chronic diastolic congestive heart failure Hypertension, essential, benign Essential hypertension, benign Peripheral arterial occlusive disease (CMS-HCC) Unspecified peripheral vascular disease Permanent atrial fibrillation (Multi) Atrial fibrillation Sinus node dysfunction (Multi) Gastroesophageal reflux disease without esophagitis Esophageal reflux Benign prostatic hyperplasia without lower urinary tract symptoms Sacroiliitis (CMS-HCC) Sacroiliitis, not elsewhere classified Screening for prostate cancer Special screening for malignant neoplasm of prostate Low testosterone in male Chronic rhinitis Mixed hyperlipidemia- Primary Gastroesophageal reflux disease without esophagitis Esophageal reflux Hypertension, essential, benign Essential hypertension, benign Permanent atrial fibrillation (Multi) Atrial fibrillation Benign prostatic hyperplasia without lower urinary tract symptoms Major depressive disorder, single episode, in partial remission (CMS-HCC) Major depressive disorder, single episode, in partial or unspecified remission COVID-19 Type 2 diabetes mellitus without complication, without long-term current use of insulin (Multi)- Primary Chronic diastolic congestive heart failure Mixed hyperlipidemia Hypertension, essential, benign Essential hypertension, benign Mild CAD Peripheral arterial occlusive disease (CMS-HCC) Unspecified peripheral vascular disease Permanent atrial fibrillation (Multi) Atrial fibrillation Gastroesophageal reflux disease without esophagitis Esophageal reflux Benign prostatic hyperplasia without lower urinary tract symptoms Major depressive disorder, single episode, in partial remission (CMS-HCC) Major depressive disorder, single episode, in partial or unspecified remission Sacroiliitis (CMS-HCC) Sacroiliitis, not elsewhere classified ALISHA on CPAP Low testosterone Sinus node dysfunction (Multi) Low testosterone in male Dizziness- Primary Dizziness and giddiness Chronic fatigue Other malaise and fatigue Chronic diastolic congestive heart failure Hypertension, essential, benign Essential hypertension, benign Permanent atrial fibrillation (Multi) Atrial fibrillation Hypertension, essential, benign- Primary Essential hypertension, benign Dizziness Dizziness and giddiness Chronic fatigue Other malaise and fatigue Type 2 diabetes mellitus without complication, without long-term current use of insulin (Multi) Low testosterone in male Skin tear of right elbow without complication, subsequent encounter- Primary Chronic diastolic congestive heart failure Type 2 diabetes mellitus without complication, without long-term current use of insulin (Multi) Low testosterone in male ALISHA on CPAP Routine general medical examination at health care facility- Primary Routine general medical examination at a health care facility Chronic diastolic congestive heart failure Mixed hyperlipidemia Hypertension, essential, benign Essential hypertension, benign Mild CAD Peripheral arterial occlusive disease (CMS-HCC) Unspecified peripheral vascular disease Permanent atrial fibrillation (Multi) Atrial fibrillation Type 2 diabetes mellitus without complication, without long-term current use of insulin (Multi) Gastroesophageal reflux disease without esophagitis Esophageal reflux Benign prostatic hyperplasia without lower urinary tract symptoms Major depressive disorder, single episode, in partial remission (CMS-HCC) Major depressive disorder, single episode, in partial or unspecified remission Sacroiliitis (CMS-HCC) Sacroiliitis, not elsewhere classified ALISHA on CPAP Low testosterone 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 Spinal stenosis of lumbar region Generalized osteoarthritis of multiple sites Generalized osteoarthrosis, involving multiple sites 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, 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 Type 2 diabetes mellitus without complication, without long-term current use of insulin (Multi)- Primary 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 stenosis Spinal stenosis of lumbar region Sacroiliitis (CMS-HCC) Sacroiliitis, not elsewhere classified Generalized osteoarthritis of multiple sites Generalized osteoarthrosis, involving multiple sites 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, lumbosacral region Screening for prostate cancer Special screening for malignant neoplasm of prostate Gastroesophageal reflux disease without esophagitis Esophageal reflux Hypertension, essential, benign Essential hypertension, benign Mixed hyperlipidemia Permanent atrial fibrillation (Multi) Atrial fibrillation Low testosterone in male Chronic diastolic congestive heart failure Peripheral arterial occlusive disease ([facility]-HCC) Unspecified peripheral vascular disease Type 2 diabetes mellitus without complication, without long-term current use of insulin (Multi)- Primary 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 stenosis Spinal stenosis of lumbar region Sacroiliitis (CMS-HCC) Sacroiliitis, not elsewhere classified Generalized osteoarthritis of multiple sites Generalized osteoarthrosis, involving multiple sites 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, lumbosacral region Gastroesophageal reflux disease without esophagitis Esophageal reflux Hypertension, essential, benign Essential hypertension, benign Mixed hyperlipidemia Permanent atrial fibrillation (Multi) Atrial fibrillation Low testosterone in male Chronic diastolic congestive heart failure Elevated PSA measurement Peripheral arterial occlusive disease ([facility]-HCC) Unspecified peripheral vascular disease Sinus node dysfunction (Multi) Persistent atrial fibrillation (Multi) Atrial fibrillation Pacing-induced cardiomyopathy (Multi) Bronchitis- Primary Bronchitis, not specified as acute or chronic Type 2 diabetes mellitus without complication, without long-term current use of insulin (Multi) Chronic diastolic congestive heart failure Permanent atrial fibrillation (Multi) Atrial fibrillation Gastroesophageal reflux disease without esophagitis Esophageal reflux Benign prostatic hyperplasia without lower urinary tract symptoms Chronic rhinitis Mixed hyperlipidemia Hyperthyroidism Thyrotoxicosis 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 or other cause, without mention of thyrotoxic crisis or storm Obstructive sleep apnea on CPAP Pacemaker Cardiac pacemaker in situ Sick sinus syndrome (Multi) Sinoatrial node dysfunction Persistent atrial fibrillation (Multi) Atrial fibrillation Pacing-induced cardiomyopathy (Multi) documented in this encounter [facility] Work Phone: Evaluation note* Diagnosis ALISHA on CPAP- Primary Type 2 diabetes mellitus without complication, 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 (Multi) Chronic diastolic congestive heart failure Hypertension, essential, benign Essential hypertension, benign Peripheral arterial occlusive disease (CMS-HCC) Unspecified peripheral vascular disease Permanent atrial fibrillation (Multi) Atrial fibrillation Sinus node dysfunction (Multi) Gastroesophageal reflux disease without esophagitis Esophageal reflux Benign prostatic hyperplasia without lower urinary tract symptoms Sacroiliitis (CMS-HCC) Sacroiliitis, not elsewhere classified Screening for prostate cancer Special screening for malignant neoplasm of prostate Low testosterone in male Chronic rhinitis Mixed hyperlipidemia- Primary Gastroesophageal reflux disease without esophagitis Esophageal reflux Hypertension, essential, benign Essential hypertension, benign Permanent atrial fibrillation (Multi) Atrial fibrillation Benign prostatic hyperplasia without lower urinary tract symptoms Major depressive disorder, single episode, in partial remission (CMS-HCC) Major depressive disorder, single episode, in partial or unspecified remission COVID-19 Type 2 diabetes mellitus without complication, without long-term current use of insulin (Multi)- Primary Chronic diastolic congestive heart failure Mixed hyperlipidemia Hypertension, essential, benign Essential hypertension, benign Mild CAD Peripheral arterial occlusive disease (CMS-HCC) Unspecified peripheral vascular disease Permanent atrial fibrillation (Multi) Atrial fibrillation Gastroesophageal reflux disease without esophagitis Esophageal reflux Benign prostatic hyperplasia without lower urinary tract symptoms Major depressive disorder, single episode, in partial remission (CMS-HCC) Major depressive disorder, single episode, in partial or unspecified remission Sacroiliitis (CMS-HCC) Sacroiliitis, not elsewhere classified ALISHA on CPAP Low testosterone Sinus node dysfunction (Multi) Low testosterone in male Dizziness- Primary Dizziness and giddiness Chronic fatigue Other malaise and fatigue Chronic diastolic congestive heart failure Hypertension, essential, benign Essential hypertension, benign Permanent atrial fibrillation (Multi) Atrial fibrillation Hypertension, essential, benign- Primary Essential hypertension, benign Dizziness Dizziness and giddiness Chronic fatigue Other malaise and fatigue Type 2 diabetes mellitus without complication, without long-term current use of insulin (Multi) Low testosterone in male Skin tear of right elbow without complication, subsequent encounter- Primary Chronic diastolic congestive heart failure Type 2 diabetes mellitus without complication, without long-term current use of insulin (Multi) Low testosterone in male ALISHA on CPAP Routine general medical examination at health care facility- Primary Routine general medical examination at a health care facility Chronic diastolic congestive heart failure Mixed hyperlipidemia Hypertension, essential, benign Essential hypertension, benign Mild CAD Peripheral arterial occlusive disease ([facility]) Unspecified peripheral vascular disease Permanent atrial fibrillation (Multi) Atrial fibrillation Type 2 diabetes mellitus without complication, without long-term current use of insulin (Multi) Gastroesophageal reflux disease without esophagitis Esophageal reflux Benign prostatic hyperplasia without lower urinary tract symptoms Major depressive disorder, single episode, in partial remission ([facility]) Major depressive disorder, single episode, in partial or unspecified remission Sacroiliitis ([facility]) Sacroiliitis, not elsewhere classified ALISHA on CPAP Low testosterone 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 Spinal stenosis of lumbar region Generalized osteoarthritis of multiple sites Generalized osteoarthrosis, involving multiple sites 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, 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 Type 2 diabetes mellitus without complication, without long-term current use of insulin (Multi)- Primary 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 stenosis Spinal stenosis of lumbar region Sacroiliitis ([facility]) Sacroiliitis, not elsewhere classified Generalized osteoarthritis of multiple sites Generalized osteoarthrosis, involving multiple sites 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, lumbosacral region Screening for prostate cancer Special screening for malignant neoplasm of prostate Gastroesophageal reflux disease without esophagitis Esophageal reflux Hypertension, essential, benign Essential hypertension, benign Mixed hyperlipidemia Permanent atrial fibrillation (Multi) Atrial fibrillation Low testosterone in male Chronic diastolic congestive heart failure Peripheral arterial occlusive disease ([facility]) Unspecified peripheral vascular disease Type 2 diabetes mellitus without complication, without long-term current use of insulin (Multi)- Primary 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 stenosis Spinal stenosis of lumbar region Sacroiliitis ([facility]) Sacroiliitis, not elsewhere classified Generalized osteoarthritis of multiple sites Generalized osteoarthrosis, involving multiple sites 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, lumbosacral region Gastroesophageal reflux disease without esophagitis Esophageal reflux Hypertension, essential, benign Essential hypertension, benign Mixed hyperlipidemia Permanent atrial fibrillation (Multi) Atrial fibrillation Low testosterone in male Chronic diastolic congestive heart failure Elevated PSA measurement Peripheral arterial occlusive disease ([facility]) Unspecified peripheral vascular disease Sinus node dysfunction (Multi) Persistent atrial fibrillation (Multi) Atrial fibrillation Pacing-induced cardiomyopathy (Multi) Bronchitis- Primary Bronchitis, not specified as acute or chronic Type 2 diabetes mellitus without complication, without long-term current use of insulin (Multi) Chronic diastolic congestive heart failure Permanent atrial fibrillation (Multi) Atrial fibrillation Gastroesophageal reflux disease without esophagitis Esophageal reflux Benign prostatic hyperplasia without lower urinary tract symptoms Chronic rhinitis Mixed hyperlipidemia Hyperthyroidism Thyrotoxicosis 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 or other cause, without mention of thyrotoxic crisis or storm Obstructive sleep apnea on CPAP 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 stenosis Spinal stenosis of lumbar region Chronic bilateral low back pain with bilateral sciatica Persistent atrial fibrillation (Multi) Atrial fibrillation Pacing-induced cardiomyopathy (Multi) documented in this encounter [facility] Work Phone: Evaluation note* Diagnosis ALISHA on CPAP- Primary Type 2 diabetes mellitus without complication, 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 (Multi) Chronic diastolic congestive heart failure Hypertension, essential, benign Essential hypertension, benign Peripheral arterial occlusive disease (CMS-HCC) Unspecified peripheral vascular disease Permanent atrial fibrillation (Multi) Atrial fibrillation Sinus node dysfunction (Multi) Gastroesophageal reflux disease without esophagitis Esophageal reflux Benign prostatic hyperplasia without lower urinary tract symptoms Sacroiliitis (CMS-HCC) Sacroiliitis, not elsewhere classified Screening for prostate cancer Special screening for malignant neoplasm of prostate Low testosterone in male Chronic rhinitis Mixed hyperlipidemia- Primary Gastroesophageal reflux disease without esophagitis Esophageal reflux Hypertension, essential, benign Essential hypertension, benign Permanent atrial fibrillation (Multi) Atrial fibrillation Benign prostatic hyperplasia without lower urinary tract symptoms Major depressive disorder, single episode, in partial remission (CMS-HCC) Major depressive disorder, single episode, in partial or unspecified remission COVID-19 Type 2 diabetes mellitus without complication, without long-term current use of insulin (Multi)- Primary Chronic diastolic congestive heart failure Mixed hyperlipidemia Hypertension, essential, benign Essential hypertension, benign Mild CAD Peripheral arterial occlusive disease (CMS-HCC) Unspecified peripheral vascular disease Permanent atrial fibrillation (Multi) Atrial fibrillation Gastroesophageal reflux disease without esophagitis Esophageal reflux Benign prostatic hyperplasia without lower urinary tract symptoms Major depressive disorder, single episode, in partial remission (CMS-HCC) Major depressive disorder, single episode, in partial or unspecified remission Sacroiliitis (CMS-HCC) Sacroiliitis, not elsewhere classified ALISHA on CPAP Low testosterone Sinus node dysfunction (Multi) Low testosterone in male Dizziness- Primary Dizziness and giddiness Chronic fatigue Other malaise and fatigue Chronic diastolic congestive heart failure Hypertension, essential, benign Essential hypertension, benign Permanent atrial fibrillation (Multi) Atrial fibrillation Hypertension, essential, benign- Primary Essential hypertension, benign Dizziness Dizziness and giddiness Chronic fatigue Other malaise and fatigue Type 2 diabetes mellitus without complication, without long-term current use of insulin (Multi) Low testosterone in male Skin tear of right elbow without complication, subsequent encounter- Primary Chronic diastolic congestive heart failure Type 2 diabetes mellitus without complication, without long-term current use of insulin (Multi) Low testosterone in male ALISHA on CPAP Routine general medical examination at health care facility- Primary Routine general medical examination at a health care facility Chronic diastolic congestive heart failure Mixed hyperlipidemia Hypertension, essential, benign Essential hypertension, benign Mild CAD Peripheral arterial occlusive disease (CMS-HCC) Unspecified peripheral vascular disease Permanent atrial fibrillation (Multi) Atrial fibrillation Type 2 diabetes mellitus without complication, without long-term current use of insulin (Multi) Gastroesophageal reflux disease without esophagitis Esophageal reflux Benign prostatic hyperplasia without lower urinary tract symptoms Major depressive disorder, single episode, in partial remission (CMS-HCC) Major depressive disorder, single episode, in partial or unspecified remission Sacroiliitis (CMS-HCC) Sacroiliitis, not elsewhere classified ALISHA on CPAP Low testosterone 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 Spinal stenosis of lumbar region Generalized osteoarthritis of multiple sites Generalized osteoarthrosis, involving multiple sites 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, 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 Type 2 diabetes mellitus without complication, without long-term current use of insulin (Multi)- Primary 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 stenosis Spinal stenosis of lumbar region Sacroiliitis (CMS-HCC) Sacroiliitis, not elsewhere classified Generalized osteoarthritis of multiple sites Generalized osteoarthrosis, involving multiple sites 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, lumbosacral region Screening for prostate cancer Special screening for malignant neoplasm of prostate Gastroesophageal reflux disease without esophagitis Esophageal reflux Hypertension, essential, benign Essential hypertension, benign Mixed hyperlipidemia Permanent atrial fibrillation (Multi) Atrial fibrillation Low testosterone in male Chronic diastolic congestive heart failure Peripheral arterial occlusive disease (CMS-HCC) Unspecified peripheral vascular disease Type 2 diabetes mellitus without complication, without long-term current use of insulin (Multi)- Primary 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 stenosis Spinal stenosis of lumbar region Sacroiliitis (CMS-HCC) Sacroiliitis, not elsewhere classified Generalized osteoarthritis of multiple sites Generalized osteoarthrosis, involving multiple sites 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, lumbosacral region Gastroesophageal reflux disease without esophagitis Esophageal reflux Hypertension, essential, benign Essential hypertension, benign Mixed hyperlipidemia Permanent atrial fibrillation (Multi) Atrial fibrillation Low testosterone in male Chronic diastolic congestive heart failure Elevated PSA measurement Peripheral arterial occlusive disease (CMS-HCC) Unspecified peripheral vascular disease Sinus node dysfunction (Multi) Heart failure with mildly reduced ejection fraction (HFmrEF)- Primary Persistent atrial fibrillation (Multi) Atrial fibrillation Pacing-induced cardiomyopathy (Multi) Permanent atrial fibrillation (Multi) Atrial fibrillation Shortness of breath Hypertension, essential, benign Essential hypertension, benign Persistent atrial fibrillation (Multi) Atrial fibrillation Pacing-induced cardiomyopathy (Multi) Bronchitis- Primary Bronchitis, not specified as acute or chronic Type 2 diabetes mellitus without complication, without long-term current use of insulin (Multi) Chronic diastolic congestive heart failure Permanent atrial fibrillation (Multi) Atrial fibrillation Gastroesophageal reflux disease without esophagitis Esophageal reflux Benign prostatic hyperplasia without lower urinary tract symptoms Chronic rhinitis Mixed hyperlipidemia Hyperthyroidism Thyrotoxicosis 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 or other cause, without mention of thyrotoxic crisis or storm Obstructive sleep apnea on CPAP Persistent atrial fibrillation (Multi) Atrial fibrillation Pacing-induced cardiomyopathy (Multi) documented in this encounter [facility] Work Phone: Evaluation note* Diagnosis ALISHA on CPAP- Primary 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 2 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 without complication, 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) Chronic diastolic congestive heart failure Hypertension, essential, benign Essential hypertension, benign Peripheral arterial occlusive disease (CMS-HCC) Unspecified peripheral vascular disease Permanent atrial fibrillation (Multi) Atrial fibrillation Sinus node dysfunction (Multi) Gastroesophageal reflux disease without esophagitis Esophageal reflux Benign prostatic hyperplasia without lower urinary tract symptoms Sacroiliitis (CMS-HCC) Sacroiliitis, not elsewhere classified Screening for prostate cancer Special screening for malignant neoplasm of prostate Low testosterone in male Chronic rhinitis Mixed hyperlipidemia- Primary Gastroesophageal reflux disease without esophagitis Esophageal reflux Hypertension, essential, benign Essential hypertension, benign Permanent atrial fibrillation (Multi) Atrial fibrillation Benign prostatic hyperplasia without lower urinary tract symptoms Major depressive disorder, single episode, in partial remission (CMS-HCC) Major depressive disorder, single episode, in partial or unspecified remission COVID-19 Type 2 diabetes mellitus without complication, without long-term current use of insulin (Multi)- Primary Chronic diastolic congestive heart failure Mixed hyperlipidemia Hypertension, essential, benign Essential hypertension, benign Mild CAD Peripheral arterial occlusive disease (CMS-HCC) Unspecified peripheral vascular disease Permanent atrial fibrillation (Multi) Atrial fibrillation Gastroesophageal reflux disease without esophagitis Esophageal reflux Benign prostatic hyperplasia without lower urinary tract symptoms Major depressive disorder, single episode, in partial remission (CMS-HCC) Major depressive disorder, single episode, in partial or unspecified remission Sacroiliitis (CMS-HCC) Sacroiliitis, not elsewhere classified ALISHA on CPAP Low testosterone Sinus node dysfunction (Multi) Low testosterone in male Dizziness- Primary Dizziness and giddiness Chronic fatigue Other malaise and fatigue Chronic diastolic congestive heart failure Hypertension, essential, benign Essential hypertension, benign Permanent atrial fibrillation (Multi) Atrial fibrillation Hypertension, essential, benign- Primary Essential hypertension, benign Dizziness Dizziness and giddiness Chronic fatigue Other malaise and fatigue Type 2 diabetes mellitus without complication, without long-term current use of insulin (Multi) Low testosterone in male Skin tear of right elbow without complication, subsequent encounter- Primary Chronic diastolic congestive heart failure Type 2 diabetes mellitus without complication, without long-term current use of insulin (Multi) Low testosterone in male ALISHA on CPAP Routine general medical examination at health care facility- Primary Routine general medical examination at a health care facility Chronic diastolic congestive heart failure Mixed hyperlipidemia Hypertension, essential, benign Essential hypertension, benign Mild CAD Peripheral arterial occlusive disease (CMS-HCC) Unspecified peripheral vascular disease Permanent atrial fibrillation (Multi) Atrial fibrillation Type 2 diabetes mellitus without complication, without long-term current use of insulin (Multi) Gastroesophageal reflux disease without esophagitis Esophageal reflux Benign prostatic hyperplasia without lower urinary tract symptoms Major depressive disorder, single episode, in partial remission (CMS-HCC) Major depressive disorder, single episode, in partial or unspecified remission Sacroiliitis ([facility]-HCC) Sacroiliitis, not elsewhere classified ALISHA on CPAP Low testosterone 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 Spinal stenosis of lumbar region Generalized osteoarthritis of multiple sites Generalized osteoarthrosis, involving multiple sites 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, 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 Type 2 diabetes mellitus without complication, without long-term current use of insulin (Multi)- Primary 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 stenosis Spinal stenosis of lumbar region Sacroiliitis (CMS-HCC) Sacroiliitis, not elsewhere classified Generalized osteoarthritis of multiple sites Generalized osteoarthrosis, involving multiple sites 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, lumbosacral region Screening for prostate cancer Special screening for malignant neoplasm of prostate Gastroesophageal reflux disease without esophagitis Esophageal reflux Hypertension, essential, benign Essential hypertension, benign Mixed hyperlipidemia Permanent atrial fibrillation (Multi) Atrial fibrillation Low testosterone in male Chronic diastolic congestive heart failure Peripheral arterial occlusive disease (CMS-HCC) Unspecified peripheral vascular disease Type 2 diabetes mellitus without complication, without long-term current use of insulin (Multi)- Primary 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 stenosis Spinal stenosis of lumbar region Sacroiliitis (CMS-HCC) Sacroiliitis, not elsewhere classified Generalized osteoarthritis of multiple sites Generalized osteoarthrosis, involving multiple sites 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, lumbosacral region Gastroesophageal reflux disease without esophagitis Esophageal reflux Hypertension, essential, benign Essential hypertension, benign Mixed hyperlipidemia Permanent atrial fibrillation (Multi) Atrial fibrillation Low testosterone in male Chronic diastolic congestive heart failure Elevated PSA measurement Peripheral arterial occlusive disease (CMS-HCC) Unspecified peripheral vascular disease Sinus node dysfunction (Multi) Bronchitis- Primary Bronchitis, not specified as acute or chronic Type 2 diabetes mellitus without complication, without long-term current use of insulin (Multi) Chronic diastolic congestive heart failure Permanent atrial fibrillation (Multi) Atrial fibrillation Gastroesophageal reflux disease without esophagitis Esophageal reflux Benign prostatic hyperplasia without lower urinary tract symptoms Chronic rhinitis Mixed hyperlipidemia Hyperthyroidism Thyrotoxicosis 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 or other cause, without mention of thyrotoxic crisis or storm Obstructive sleep apnea on CPAP Subclavian vein stenosis- Primary Compression of vein Pacing-induced cardiomyopathy (Multi) Cardiac pacemaker in situ Sinoatrial node dysfunction (Multi) Sinoatrial node dysfunction 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 Compression of vein documented in this encounter [facility] Work Phone: Evaluation note* Diagnosis ALISHA on CPAP- Primary Type 2 diabetes mellitus without complication, 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 (Multi) Chronic diastolic congestive heart failure Hypertension, essential, benign Essential hypertension, benign Peripheral arterial occlusive disease (CMS-HCC) Unspecified peripheral vascular disease Permanent atrial fibrillation (Multi) Atrial fibrillation Sinus node dysfunction (Multi) Gastroesophageal reflux disease without esophagitis Esophageal reflux Benign prostatic hyperplasia without lower urinary tract symptoms Sacroiliitis (CMS-HCC) Sacroiliitis, not elsewhere classified Screening for prostate cancer Special screening for malignant neoplasm of prostate Low testosterone in male Chronic rhinitis Mixed hyperlipidemia- Primary Gastroesophageal reflux disease without esophagitis Esophageal reflux Hypertension, essential, benign Essential hypertension, benign Permanent atrial fibrillation (Multi) Atrial fibrillation Benign prostatic hyperplasia without lower urinary tract symptoms Major depressive disorder, single episode, in partial remission (CMS-HCC) Major depressive disorder, single episode, in partial or unspecified remission COVID-19 Type 2 diabetes mellitus without complication, without long-term current use of insulin (Multi)- Primary Chronic diastolic congestive heart failure Mixed hyperlipidemia Hypertension, essential, benign Essential hypertension, benign Mild CAD Peripheral arterial occlusive disease (CMS-HCC) Unspecified peripheral vascular disease Permanent atrial fibrillation (Multi) Atrial fibrillation Gastroesophageal reflux disease without esophagitis Esophageal reflux Benign prostatic hyperplasia without lower urinary tract symptoms Major depressive disorder, single episode, in partial remission (CMS-HCC) Major depressive disorder, single episode, in partial or unspecified remission Sacroiliitis (CMS-HCC) Sacroiliitis, not elsewhere classified ALISHA on CPAP Low testosterone Sinus node dysfunction (Multi) Low testosterone in male Dizziness- Primary Dizziness and giddiness Chronic fatigue Other malaise and fatigue Chronic diastolic congestive heart failure Hypertension, essential, benign Essential hypertension, benign Permanent atrial fibrillation (Multi) Atrial fibrillation Hypertension, essential, benign- Primary Essential hypertension, benign Dizziness Dizziness and giddiness Chronic fatigue Other malaise and fatigue Type 2 diabetes mellitus without complication, without long-term current use of insulin (Multi) Low testosterone in male Skin tear of right elbow without complication, subsequent encounter- Primary Chronic diastolic congestive heart failure Type 2 diabetes mellitus without complication, without long-term current use of insulin (Multi) Low testosterone in male ALISHA on CPAP Routine general medical examination at health care facility- Primary Routine general medical examination at a health care facility Chronic diastolic congestive heart failure Mixed hyperlipidemia Hypertension, essential, benign Essential hypertension, benign Mild CAD Peripheral arterial occlusive disease (CMS-HCC) Unspecified peripheral vascular disease Permanent atrial fibrillation (Multi) Atrial fibrillation Type 2 diabetes mellitus without complication, without long-term current use of insulin (Multi) Gastroesophageal reflux disease without esophagitis Esophageal reflux Benign prostatic hyperplasia without lower urinary tract symptoms Major depressive disorder, single episode, in partial remission (CMS-HCC) Major depressive disorder, single episode, in partial or unspecified remission Sacroiliitis (CMS-HCC) Sacroiliitis, not elsewhere classified ALISHA on CPAP Low testosterone 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 Spinal stenosis of lumbar region Generalized osteoarthritis of multiple sites Generalized osteoarthrosis, involving multiple sites 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, 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 Type 2 diabetes mellitus without complication, without long-term current use of insulin (Multi)- Primary 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 stenosis Spinal stenosis of lumbar region Sacroiliitis (CMS-HCC) Sacroiliitis, not elsewhere classified Generalized osteoarthritis of multiple sites Generalized osteoarthrosis, involving multiple sites 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, lumbosacral region Screening for prostate cancer Special screening for malignant neoplasm of prostate Gastroesophageal reflux disease without esophagitis Esophageal reflux Hypertension, essential, benign Essential hypertension, benign Mixed hyperlipidemia Permanent atrial fibrillation (Multi) Atrial fibrillation Low testosterone in male Chronic diastolic congestive heart failure Peripheral arterial occlusive disease (CMS-HCC) Unspecified peripheral vascular disease Type 2 diabetes mellitus without complication, without long-term current use of insulin (Multi)- Primary 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 stenosis Spinal stenosis of lumbar region Sacroiliitis (CMS-HCC) Sacroiliitis, not elsewhere classified Generalized osteoarthritis of multiple sites Generalized osteoarthrosis, involving multiple sites 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, lumbosacral region Gastroesophageal reflux disease without esophagitis Esophageal reflux Hypertension, essential, benign Essential hypertension, benign Mixed hyperlipidemia Permanent atrial fibrillation (Multi) Atrial fibrillation Low testosterone in male Chronic diastolic congestive heart failure Elevated PSA measurement Peripheral arterial occlusive disease (CMS-HCC) Unspecified peripheral vascular disease Sinus node dysfunction (Multi) Bronchitis- Primary Bronchitis, not specified as acute or chronic Type 2 diabetes mellitus without complication, without long-term current use of insulin (Multi) Chronic diastolic congestive heart failure Permanent atrial fibrillation (Multi) Atrial fibrillation Gastroesophageal reflux disease without esophagitis Esophageal reflux Benign prostatic hyperplasia without lower urinary tract symptoms Chronic rhinitis Mixed hyperlipidemia Hyperthyroidism Thyrotoxicosis 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 or other cause, without mention of thyrotoxic crisis or storm Obstructive sleep apnea on CPAP Subclavian vein stenosis- Primary Compression of vein Pacing-induced cardiomyopathy (Multi) Lumbar radiculopathy- Primary Thoracic or lumbosacral neuritis or radiculitis, unspecified 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 stenosis Spinal stenosis of lumbar region 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 Compression of vein documented in this encounter [facility] Work Phone: Evaluation note* Diagnosis Pre-operative cardiovascular examination- Primary Lumbar stenosis with neurogenic claudication- Primary Spinal stenosis, lumbar region, with neurogenic claudication DDD (degenerative disc disease), lumbar Degeneration of lumbar or lumbosacral intervertebral disc Thyroid nodule- Primary Nontoxic uninodular goiter [facility] examination- Primary Lumbar stenosis with neurogenic claudication- Primary Spinal stenosis, lumbar region, with neurogenic claudication DDD (degenerative disc disease), lumbar Degeneration of lumbar or lumbosacral intervertebral disc Onychomycosis- Primary Dermatophytosis of nail Peripheral vascular disease, unspecified [facility] Diagnosis Pre-operative cardiovascular examination- Primary Lumbar stenosis with neurogenic claudication- Primary Spinal stenosis, lumbar region, with neurogenic claudication DDD (degenerative disc disease), lumbar Degeneration of lumbar or lumbosacral intervertebral disc Thyroid nodule- Primary Nontoxic uninodular goiter [facility] Diagnosis Pre-operative cardiovascular examination- Primary Lumbar stenosis with neurogenic claudication- Primary Spinal stenosis, lumbar region, with neurogenic claudication DDD (degenerative disc disease), lumbar Degeneration of lumbar or lumbosacral intervertebral disc Abnormal thyroid function test- Primary Nonspecific abnormal results of thyroid function study Lymph node enlargement Enlargement of lymph nodes [facility] Diagnosis ALISHA on CPAP- Primary Type 2 diabetes mellitus without complication, 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 (Multi) Chronic diastolic congestive heart failure Hypertension, essential, benign Essential hypertension, benign Peripheral arterial occlusive disease (CMS-HCC) Unspecified peripheral vascular disease Permanent atrial fibrillation (Multi) Atrial fibrillation Sinus node dysfunction (Multi) Gastroesophageal reflux disease without esophagitis Esophageal reflux Benign prostatic hyperplasia without lower urinary tract symptoms Sacroiliitis (CMS-HCC) Sacroiliitis, not elsewhere classified Screening for prostate cancer Special screening for malignant neoplasm of prostate Low testosterone in male Chronic rhinitis Mixed hyperlipidemia- Primary Gastroesophageal reflux disease without esophagitis Esophageal reflux Hypertension, essential, benign Essential hypertension, benign Permanent atrial fibrillation (Multi) Atrial fibrillation Benign prostatic hyperplasia without lower urinary tract symptoms Major depressive disorder, single episode, in partial remission (CMS-HCC) Major depressive disorder, single episode, in partial or unspecified remission COVID-19 Type 2 diabetes mellitus without complication, without long-term current use of insulin (Multi)- Primary Chronic diastolic congestive heart failure Mixed hyperlipidemia Hypertension, essential, benign Essential hypertension, benign Mild CAD Peripheral arterial occlusive disease (CMS-HCC) Unspecified peripheral vascular disease Permanent atrial fibrillation (Multi) Atrial fibrillation Gastroesophageal reflux disease without esophagitis Esophageal reflux Benign prostatic hyperplasia without lower urinary tract symptoms Major depressive disorder, single episode, in partial remission (CMS-HCC) Major depressive disorder, single episode, in partial or unspecified remission Sacroiliitis (CMS-HCC) Sacroiliitis, not elsewhere classified ALISHA on CPAP Low testosterone Sinus node dysfunction (Multi) Low testosterone in male Dizziness- Primary Dizziness and giddiness Chronic fatigue Other malaise and fatigue Chronic diastolic congestive heart failure Hypertension, essential, benign Essential hypertension, benign Permanent atrial fibrillation (Multi) Atrial fibrillation Hypertension, essential, benign- Primary Essential hypertension, benign Dizziness Dizziness and giddiness Chronic fatigue Other malaise and fatigue Type 2 diabetes mellitus without complication, without long-term current use of insulin (Multi) Low testosterone in male Skin tear of right elbow without complication, subsequent encounter- Primary Chronic diastolic congestive heart failure Type 2 diabetes mellitus without complication, without long-term current use of insulin (Multi) Low testosterone in male ALISHA on CPAP Routine general medical examination at health care facility- Primary Routine general medical examination at a health care facility Chronic diastolic congestive heart failure Mixed hyperlipidemia Hypertension, essential, benign Essential hypertension, benign Mild CAD Peripheral arterial occlusive disease (CMS-HCC) Unspecified peripheral vascular disease Permanent atrial fibrillation (Multi) Atrial fibrillation Type 2 diabetes mellitus without complication, without long-term current use of insulin (Multi) Gastroesophageal reflux disease without esophagitis Esophageal reflux Benign prostatic hyperplasia without lower urinary tract symptoms Major depressive disorder, single episode, in partial remission ([facility]-HCC) Major depressive disorder, single episode, in partial or unspecified remission Sacroiliitis (CMS-HCC) Sacroiliitis, not elsewhere classified ALISHA on CPAP Low testosterone 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 Spinal stenosis of lumbar region Generalized osteoarthritis of multiple sites Generalized osteoarthrosis, involving multiple sites 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, 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 Type 2 diabetes mellitus without complication, without long-term current use of insulin (Multi)- Primary 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 stenosis Spinal stenosis of lumbar region Sacroiliitis (CMS-HCC) Sacroiliitis, not elsewhere classified Generalized osteoarthritis of multiple sites Generalized osteoarthrosis, involving multiple sites 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, lumbosacral region Screening for prostate cancer Special screening for malignant neoplasm of prostate Gastroesophageal reflux disease without esophagitis Esophageal reflux Hypertension, essential, benign Essential hypertension, benign Mixed hyperlipidemia Permanent atrial fibrillation (Multi) Atrial fibrillation Low testosterone in male Chronic diastolic congestive heart failure Peripheral arterial occlusive disease (CMS-HCC) Unspecified peripheral vascular disease Type 2 diabetes mellitus without complication, without long-term current use of insulin (Multi)- Primary 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 stenosis Spinal stenosis of lumbar region Sacroiliitis (CMS-HCC) Sacroiliitis, not elsewhere classified Generalized osteoarthritis of multiple sites Generalized osteoarthrosis, involving multiple sites 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, lumbosacral region Gastroesophageal reflux disease without esophagitis Esophageal reflux Hypertension, essential, benign Essential hypertension, benign Mixed hyperlipidemia Permanent atrial fibrillation (Multi) Atrial fibrillation Low testosterone in male Chronic diastolic congestive heart failure Elevated PSA measurement Peripheral arterial occlusive disease (CMS-HCC) Unspecified peripheral vascular disease Sinus node dysfunction (Multi) Bronchitis- Primary Bronchitis, not specified as acute or chronic Type 2 diabetes mellitus without complication, without long-term current use of insulin (Multi) Chronic diastolic congestive heart failure Permanent atrial fibrillation (Multi) Atrial fibrillation Gastroesophageal reflux disease without esophagitis Esophageal reflux Benign prostatic hyperplasia without lower urinary tract symptoms Chronic rhinitis Mixed hyperlipidemia Hyperthyroidism Thyrotoxicosis 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 or other cause, without mention of thyrotoxic crisis or storm Obstructive sleep apnea on CPAP Subclavian vein stenosis- Primary Compression of vein Pacing-induced cardiomyopathy (Multi) Permanent atrial fibrillation (Multi) Atrial fibrillation Lumbar radiculopathy Thoracic or lumbosacral neuritis or radiculitis, unspecified 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 Compression of vein documented in this encounter [facility] Work Phone: Evaluation note* Diagnosis ALISHA on CPAP- Primary 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, 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) Chronic diastolic congestive heart failure Hypertension, essential, benign Essential hypertension, benign Peripheral arterial occlusive disease (CMS-HCC) Unspecified peripheral vascular disease Permanent atrial fibrillation (Multi) Atrial fibrillation Sinus node dysfunction (Multi) Gastroesophageal reflux disease without esophagitis Esophageal reflux Benign prostatic hyperplasia without lower urinary tract symptoms Sacroiliitis (CMS-HCC) Sacroiliitis, not elsewhere classified Screening for prostate cancer Special screening for malignant neoplasm of prostate Low testosterone in male Chronic rhinitis Mixed hyperlipidemia- Primary Gastroesophageal reflux disease without esophagitis Esophageal reflux Hypertension, essential, benign Essential hypertension, benign Permanent atrial fibrillation (Multi) Atrial fibrillation Benign prostatic hyperplasia without lower urinary tract symptoms Major depressive disorder, single episode, in partial remission (CMS-HCC) Major depressive disorder, single episode, in partial or unspecified remission COVID-19 Type 2 diabetes mellitus without complication, without long-term current use of insulin (Multi)- Primary Chronic diastolic congestive heart failure Mixed hyperlipidemia Hypertension, essential, benign Essential hypertension, benign Mild CAD Peripheral arterial occlusive disease (CMS-HCC) Unspecified peripheral vascular disease Permanent atrial fibrillation (Multi) Atrial fibrillation Gastroesophageal reflux disease without esophagitis Esophageal reflux Benign prostatic hyperplasia without lower urinary tract symptoms Major depressive disorder, single episode, in partial remission (CMS-HCC) Major depressive disorder, single episode, in partial or unspecified remission Sacroiliitis (CMS-HCC) Sacroiliitis, not elsewhere classified ALISHA on CPAP Low testosterone Sinus node dysfunction (Multi) Low testosterone in male Dizziness- Primary Dizziness and giddiness Chronic fatigue Other malaise and fatigue Chronic diastolic congestive heart failure Hypertension, essential, benign Essential hypertension, benign Permanent atrial fibrillation (Multi) Atrial fibrillation Hypertension, essential, benign- Primary Essential hypertension, benign Dizziness Dizziness and giddiness Chronic fatigue Other malaise and fatigue Type 2 diabetes mellitus without complication, without long-term current use of insulin (Multi) Low testosterone in male Skin tear of right elbow without complication, subsequent encounter- Primary Chronic diastolic congestive heart failure Type 2 diabetes mellitus without complication, without long-term current use of insulin (Multi) Low testosterone in male ALISHA on CPAP Routine general medical examination at health care facility- Primary Routine general medical examination at a health care facility Chronic diastolic congestive heart failure Mixed hyperlipidemia Hypertension, essential, benign Essential hypertension, benign Mild CAD Peripheral arterial occlusive disease (CMS-HCC) Unspecified peripheral vascular disease Permanent atrial fibrillation (Multi) Atrial fibrillation Type 2 diabetes mellitus without complication, without long-term current use of insulin (Multi) Gastroesophageal reflux disease without esophagitis Esophageal reflux Benign prostatic hyperplasia without lower urinary tract symptoms Major depressive disorder, single episode, in partial remission (CMS-HCC) Major depressive disorder, single episode, in partial or unspecified remission Sacroiliitis (CMS-HCC) Sacroiliitis, not elsewhere classified ALISHA on CPAP Low testosterone 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 Spinal stenosis of lumbar region Generalized osteoarthritis of multiple sites Generalized osteoarthrosis, involving multiple sites 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, 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 Type 2 diabetes mellitus without complication, without long-term current use of insulin (Multi)- Primary 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 stenosis Spinal stenosis of lumbar region Sacroiliitis ([facility]-HCC) Sacroiliitis, not elsewhere classified Generalized osteoarthritis of multiple sites Generalized osteoarthrosis, involving multiple sites 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, lumbosacral region Screening for prostate cancer Special screening for malignant neoplasm of prostate Gastroesophageal reflux disease without esophagitis Esophageal reflux Hypertension, essential, benign Essential hypertension, benign Mixed hyperlipidemia Permanent atrial fibrillation (Multi) Atrial fibrillation Low testosterone in male Chronic diastolic congestive heart failure Peripheral arterial occlusive disease ([facility]-HCC) Unspecified peripheral vascular disease Type 2 diabetes mellitus without complication, without long-term current use of insulin (Multi)- Primary 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 stenosis Spinal stenosis of lumbar region Sacroiliitis (CMS-HCC) Sacroiliitis, not elsewhere classified Generalized osteoarthritis of multiple sites Generalized osteoarthrosis, involving multiple sites 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, lumbosacral region Gastroesophageal reflux disease without esophagitis Esophageal reflux Hypertension, essential, benign Essential hypertension, benign Mixed hyperlipidemia Permanent atrial fibrillation (Multi) Atrial fibrillation Low testosterone in male Chronic diastolic congestive heart failure Elevated PSA measurement Peripheral arterial occlusive disease ([facility]) Unspecified peripheral vascular disease Sinus node dysfunction (Multi) Bronchitis- Primary Bronchitis, not specified as acute or chronic Type 2 diabetes mellitus without complication, without long-term current use of insulin (Multi) Chronic diastolic congestive heart failure Permanent atrial fibrillation (Multi) Atrial fibrillation Gastroesophageal reflux disease without esophagitis Esophageal reflux Benign prostatic hyperplasia without lower urinary tract symptoms Chronic rhinitis Mixed hyperlipidemia Hyperthyroidism Thyrotoxicosis 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 or other cause, without mention of thyrotoxic crisis or storm Obstructive sleep apnea on CPAP Subclavian vein stenosis- Primary Compression of vein Pacing-induced cardiomyopathy (Multi) Permanent atrial fibrillation (Multi) Atrial fibrillation Acute intractable headache, unspecified headache type- Primary 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 Compression of vein 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 Compression of vein documented in this encounter [facility] Work Phone: Evaluation note* Diagnosis ALISHA on CPAP- Primary 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, 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 Chronic diastolic congestive heart failure Hypertension, essential, benign Essential hypertension, benign Peripheral arterial occlusive disease (CMS-HCC) Unspecified peripheral vascular disease Permanent atrial fibrillation (Multi) Atrial fibrillation Sinus node dysfunction (Multi) Gastroesophageal reflux disease without esophagitis Esophageal reflux Benign prostatic hyperplasia without lower urinary tract symptoms Sacroiliitis (CMS-HCC) Sacroiliitis, not elsewhere classified Screening for prostate cancer Special screening for malignant neoplasm of prostate Low testosterone in male Chronic rhinitis Mixed hyperlipidemia- Primary Gastroesophageal reflux disease without esophagitis Esophageal reflux Hypertension, essential, benign Essential hypertension, benign Permanent atrial fibrillation (Multi) Atrial fibrillation Benign prostatic hyperplasia without lower urinary tract symptoms Major depressive disorder, single episode, in partial remission (CMS-HCC) Major depressive disorder, single episode, in partial or unspecified remission COVID-19 Type 2 diabetes mellitus without complication, without long-term current use of insulin- Primary Chronic diastolic congestive heart failure Mixed hyperlipidemia Hypertension, essential, benign Essential hypertension, benign Mild CAD Peripheral arterial occlusive disease (CMS-HCC) Unspecified peripheral vascular disease Permanent atrial fibrillation (Multi) Atrial fibrillation Gastroesophageal reflux disease without esophagitis Esophageal reflux Benign prostatic hyperplasia without lower urinary tract symptoms Major depressive disorder, single episode, in partial remission (CMS-HCC) Major depressive disorder, single episode, in partial or unspecified remission Sacroiliitis (CMS-HCC) Sacroiliitis, not elsewhere classified ALISHA on CPAP Low testosterone Sinus node dysfunction (Multi) Low testosterone in male Dizziness- Primary Dizziness and giddiness Chronic fatigue Other malaise and fatigue Chronic diastolic congestive heart failure Hypertension, essential, benign Essential hypertension, benign Permanent atrial fibrillation (Multi) Atrial fibrillation Hypertension, essential, benign- Primary Essential hypertension, benign Dizziness Dizziness and giddiness Chronic fatigue Other malaise and fatigue Type 2 diabetes mellitus without complication, without long-term current use of insulin Low testosterone in male Skin tear of right elbow without complication, subsequent encounter- Primary Chronic diastolic congestive heart failure Type 2 diabetes mellitus without complication, without long-term current use of insulin Low testosterone in male ALISHA on CPAP Routine general medical examination at health care facility- Primary Routine general medical examination at a health care facility Chronic diastolic congestive heart failure Mixed hyperlipidemia Hypertension, essential, benign Essential hypertension, benign Mild CAD Peripheral arterial occlusive disease ([facility]) Unspecified peripheral vascular disease Permanent atrial fibrillation (Multi) Atrial fibrillation Type 2 diabetes mellitus without complication, without long-term current use of insulin Gastroesophageal reflux disease without esophagitis Esophageal reflux Benign prostatic hyperplasia without lower urinary tract symptoms Major depressive disorder, single episode, in partial remission ([facility]) Major depressive disorder, single episode, in partial or unspecified remission Sacroiliitis ([facility]) Sacroiliitis, not elsewhere classified ALISHA on CPAP Low testosterone 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 Spinal stenosis of lumbar region Generalized osteoarthritis of multiple sites Generalized osteoarthrosis, involving multiple sites 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, 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 Type 2 diabetes mellitus without complication, without long-term current use of insulin- Primary 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 stenosis Spinal stenosis of lumbar region Sacroiliitis ([facility]) Sacroiliitis, not elsewhere classified Generalized osteoarthritis of multiple sites Generalized osteoarthrosis, involving multiple sites 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, lumbosacral region Screening for prostate cancer Special screening for malignant neoplasm of prostate Gastroesophageal reflux disease without esophagitis Esophageal reflux Hypertension, essential, benign Essential hypertension, benign Mixed hyperlipidemia Permanent atrial fibrillation (Multi) Atrial fibrillation Low testosterone in male Chronic diastolic congestive heart failure Peripheral arterial occlusive disease ([facility]) Unspecified peripheral vascular disease Type 2 diabetes mellitus without complication, without long-term current use of insulin- Primary 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 stenosis Spinal stenosis of lumbar region Sacroiliitis ([facility]) Sacroiliitis, not elsewhere classified Generalized osteoarthritis of multiple sites Generalized osteoarthrosis, involving multiple sites 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, lumbosacral region Gastroesophageal reflux disease without esophagitis Esophageal reflux Hypertension, essential, benign Essential hypertension, benign Mixed hyperlipidemia Permanent atrial fibrillation (Multi) Atrial fibrillation Low testosterone in male Chronic diastolic congestive heart failure Elevated PSA measurement Peripheral arterial occlusive disease ([facility]) Unspecified peripheral vascular disease Sinus node dysfunction (Multi) Bronchitis- Primary Bronchitis, not specified as acute or chronic Type 2 diabetes mellitus without complication, without long-term current use of insulin Chronic diastolic congestive heart failure Permanent atrial fibrillation (Multi) Atrial fibrillation Gastroesophageal reflux disease without esophagitis Esophageal reflux Benign prostatic hyperplasia without lower urinary tract symptoms Chronic rhinitis Mixed hyperlipidemia Hyperthyroidism Thyrotoxicosis 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 or other cause, without mention of thyrotoxic crisis or storm Obstructive sleep apnea on CPAP Subclavian vein stenosis- Primary Compression of vein 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 Compression of vein Sick sinus syndrome (Multi) Sinoatrial node dysfunction SSS (sick sinus syndrome) (Multi) Sinoatrial node dysfunction Esophageal perforation Perforation of esophagus Generalized edema Edema 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 Other specified soft tissue disorders Pacing-induced cardiomyopathy (Multi) Permanent atrial fibrillation (Multi) Atrial fibrillation Sick sinus syndrome (Multi) Sinoatrial node dysfunction 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 Compression of vein Esophageal perforation- Primary Perforation of esophagus Esophageal perforation Perforation of esophagus documented in this encounter [facility] Work Phone: Evaluation note* Diagnosis ALISHA on CPAP- Primary Type 2 diabetes mellitus without complication, 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 Chronic diastolic congestive heart failure Hypertension, essential, benign Essential hypertension, benign Peripheral arterial occlusive disease (CMS-HCC) Unspecified peripheral vascular disease Permanent atrial fibrillation (Multi) Atrial fibrillation Sinus node dysfunction (Multi) Gastroesophageal reflux disease without esophagitis Esophageal reflux Benign prostatic hyperplasia without lower urinary tract symptoms Sacroiliitis (CMS-HCC) Sacroiliitis, not elsewhere classified Screening for prostate cancer Special screening for malignant neoplasm of prostate Low testosterone in male Chronic rhinitis Mixed hyperlipidemia- Primary Gastroesophageal reflux disease without esophagitis Esophageal reflux Hypertension, essential, benign Essential hypertension, benign Permanent atrial fibrillation (Multi) Atrial fibrillation Benign prostatic hyperplasia without lower urinary tract symptoms Major depressive disorder, single episode, in partial remission (CMS-HCC) Major depressive disorder, single episode, in partial or unspecified remission COVID-19 Type 2 diabetes mellitus without complication, without long-term current use of insulin- Primary Chronic diastolic congestive heart failure Mixed hyperlipidemia Hypertension, essential, benign Essential hypertension, benign Mild CAD Peripheral arterial occlusive disease (CMS-HCC) Unspecified peripheral vascular disease Permanent atrial fibrillation (Multi) Atrial fibrillation Gastroesophageal reflux disease without esophagitis Esophageal reflux Benign prostatic hyperplasia without lower urinary tract symptoms Major depressive disorder, single episode, in partial remission (CMS-HCC) Major depressive disorder, single episode, in partial or unspecified remission Sacroiliitis (CMS-HCC) Sacroiliitis, not elsewhere classified ALISHA on CPAP Low testosterone Sinus node dysfunction (Multi) Low testosterone in male Dizziness- Primary Dizziness and giddiness Chronic fatigue Other malaise and fatigue Chronic diastolic congestive heart failure Hypertension, essential, benign Essential hypertension, benign Permanent atrial fibrillation (Multi) Atrial fibrillation Hypertension, essential, benign- Primary Essential hypertension, benign Dizziness Dizziness and giddiness Chronic fatigue Other malaise and fatigue Type 2 diabetes mellitus without complication, without long-term current use of insulin Low testosterone in male Skin tear of right elbow without complication, subsequent encounter- Primary Chronic diastolic congestive heart failure Type 2 diabetes mellitus without complication, without long-term current use of insulin Low testosterone in male ALISHA on CPAP Routine general medical examination at health care facility- Primary Routine general medical examination at a health care facility Chronic diastolic congestive heart failure Mixed hyperlipidemia Hypertension, essential, benign Essential hypertension, benign Mild CAD Peripheral arterial occlusive disease (CMS-HCC) Unspecified peripheral vascular disease Permanent atrial fibrillation (Multi) Atrial fibrillation Type 2 diabetes mellitus without complication, without long-term current use of insulin Gastroesophageal reflux disease without esophagitis Esophageal reflux Benign prostatic hyperplasia without lower urinary tract symptoms Major depressive disorder, single episode, in partial remission (CMS-HCC) Major depressive disorder, single episode, in partial or unspecified remission Sacroiliitis (CMS-HCC) Sacroiliitis, not elsewhere classified ALISHA on CPAP Low testosterone 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 Spinal stenosis of lumbar region Generalized osteoarthritis of multiple sites Generalized osteoarthrosis, involving multiple sites 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, 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 Type 2 diabetes mellitus without complication, without long-term current use of insulin- Primary 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 stenosis Spinal stenosis of lumbar region Sacroiliitis (CMS-HCC) Sacroiliitis, not elsewhere classified Generalized osteoarthritis of multiple sites Generalized osteoarthrosis, involving multiple sites 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, lumbosacral region Screening for prostate cancer Special screening for malignant neoplasm of prostate Gastroesophageal reflux disease without esophagitis Esophageal reflux Hypertension, essential, benign Essential hypertension, benign Mixed hyperlipidemia Permanent atrial fibrillation (Multi) Atrial fibrillation Low testosterone in male Chronic diastolic congestive heart failure Peripheral arterial occlusive disease (CMS-HCC) Unspecified peripheral vascular disease Type 2 diabetes mellitus without complication, without long-term current use of insulin- Primary 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 stenosis Spinal stenosis of lumbar region Sacroiliitis (CMS-HCC) Sacroiliitis, not elsewhere classified Generalized osteoarthritis of multiple sites Generalized osteoarthrosis, involving multiple sites 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, lumbosacral region Gastroesophageal reflux disease without esophagitis Esophageal reflux Hypertension, essential, benign Essential hypertension, benign Mixed hyperlipidemia Permanent atrial fibrillation (Multi) Atrial fibrillation Low testosterone in male Chronic diastolic congestive heart failure Elevated PSA measurement Peripheral arterial occlusive disease (CMS-HCC) Unspecified peripheral vascular disease Sinus node dysfunction (Multi) Bronchitis- Primary Bronchitis, not specified as acute or chronic Type 2 diabetes mellitus without complication, without long-term current use of insulin Chronic diastolic congestive heart failure Permanent atrial fibrillation (Multi) Atrial fibrillation Gastroesophageal reflux disease without esophagitis Esophageal reflux Benign prostatic hyperplasia without lower urinary tract symptoms Chronic rhinitis Mixed hyperlipidemia Hyperthyroidism Thyrotoxicosis 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 or other cause, without mention of thyrotoxic crisis or storm Obstructive sleep apnea on CPAP Esophageal perforation- Primary Perforation of esophagus Encounter for adjustment and management of automatic implantable cardiac defibrillator Cardiomyopathy with implantable cardioverter-defibrillator Esophageal perforation Perforation of esophagus documented in this encounter [facility] Work Phone: Evaluation note* Diagnosis ALISHA on CPAP- Primary 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 2 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 complication, 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 Chronic diastolic congestive heart failure Hypertension, essential, benign Essential hypertension, benign Peripheral arterial occlusive disease (CMS-HCC) Unspecified peripheral vascular disease Permanent atrial fibrillation (Multi) Atrial fibrillation Sinus node dysfunction (Multi) Gastroesophageal reflux disease without esophagitis Esophageal reflux Benign prostatic hyperplasia without lower urinary tract symptoms Sacroiliitis (CMS-HCC) Sacroiliitis, not elsewhere classified Screening for prostate cancer Special screening for malignant neoplasm of prostate Low testosterone in male Chronic rhinitis Mixed hyperlipidemia- Primary Gastroesophageal reflux disease without esophagitis Esophageal reflux Hypertension, essential, benign Essential hypertension, benign Permanent atrial fibrillation (Multi) Atrial fibrillation Benign prostatic hyperplasia without lower urinary tract symptoms Major depressive disorder, single episode, in partial remission (CMS-HCC) Major depressive disorder, single episode, in partial or unspecified remission COVID-19 Type 2 diabetes mellitus without complication, without long-term current use of insulin- Primary Chronic diastolic congestive heart failure Mixed hyperlipidemia Hypertension, essential, benign Essential hypertension, benign Mild CAD Peripheral arterial occlusive disease (CMS-HCC) Unspecified peripheral vascular disease Permanent atrial fibrillation (Multi) Atrial fibrillation Gastroesophageal reflux disease without esophagitis Esophageal reflux Benign prostatic hyperplasia without lower urinary tract symptoms Major depressive disorder, single episode, in partial remission (CMS-HCC) Major depressive disorder, single episode, in partial or unspecified remission Sacroiliitis (CMS-HCC) Sacroiliitis, not elsewhere classified ALISHA on CPAP Low testosterone Sinus node dysfunction (Multi) Low testosterone in male Dizziness- Primary Dizziness and giddiness Chronic fatigue Other malaise and fatigue Chronic diastolic congestive heart failure Hypertension, essential, benign Essential hypertension, benign Permanent atrial fibrillation (Multi) Atrial fibrillation Hypertension, essential, benign- Primary Essential hypertension, benign Dizziness Dizziness and giddiness Chronic fatigue Other malaise and fatigue Type 2 diabetes mellitus without complication, without long-term current use of insulin Low testosterone in male Skin tear of right elbow without complication, subsequent encounter- Primary Chronic diastolic congestive heart failure Type 2 diabetes mellitus without complication, without long-term current use of insulin Low testosterone in male ALISHA on CPAP Routine general medical examination at health care facility- Primary Routine general medical examination at a health care facility Chronic diastolic congestive heart failure Mixed hyperlipidemia Hypertension, essential, benign Essential hypertension, benign Mild CAD Peripheral arterial occlusive disease (CMS-HCC) Unspecified peripheral vascular disease Permanent atrial fibrillation (Multi) Atrial fibrillation Type 2 diabetes mellitus without complication, without long-term current use of insulin Gastroesophageal reflux disease without esophagitis Esophageal reflux Benign prostatic hyperplasia without lower urinary tract symptoms Major depressive disorder, single episode, in partial remission (CMS-HCC) Major depressive disorder, single episode, in partial or unspecified remission Sacroiliitis (CMS-HCC) Sacroiliitis, not elsewhere classified ALISHA on CPAP Low testosterone 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 Spinal stenosis of lumbar region Generalized osteoarthritis of multiple sites Generalized osteoarthrosis, involving multiple sites 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, 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 Type 2 diabetes mellitus without complication, without long-term current use of insulin- Primary 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 stenosis Spinal stenosis of lumbar region Sacroiliitis (CMS-HCC) Sacroiliitis, not elsewhere classified Generalized osteoarthritis of multiple sites Generalized osteoarthrosis, involving multiple sites 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, lumbosacral region Screening for prostate cancer Special screening for malignant neoplasm of prostate Gastroesophageal reflux disease without esophagitis Esophageal reflux Hypertension, essential, benign Essential hypertension, benign Mixed hyperlipidemia Permanent atrial fibrillation (Multi) Atrial fibrillation Low testosterone in male Chronic diastolic congestive heart failure Peripheral arterial occlusive disease (CMS-HCC) Unspecified peripheral vascular disease Type 2 diabetes mellitus without complication, without long-term current use of insulin- Primary 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 stenosis Spinal stenosis of lumbar region Sacroiliitis (CMS-HCC) Sacroiliitis, not elsewhere classified Generalized osteoarthritis of multiple sites Generalized osteoarthrosis, involving multiple sites 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, lumbosacral region Gastroesophageal reflux disease without esophagitis Esophageal reflux Hypertension, essential, benign Essential hypertension, benign Mixed hyperlipidemia Permanent atrial fibrillation (Multi) Atrial fibrillation Low testosterone in male Chronic diastolic congestive heart failure Elevated PSA measurement Peripheral arterial occlusive disease (CMS-HCC) Unspecified peripheral vascular disease Sinus node dysfunction (Multi) Bronchitis- Primary Bronchitis, not specified as acute or chronic Type 2 diabetes mellitus without complication, without long-term current use of insulin Chronic diastolic congestive heart failure Permanent atrial fibrillation (Multi) Atrial fibrillation Gastroesophageal reflux disease without esophagitis Esophageal reflux Benign prostatic hyperplasia without lower urinary tract symptoms Chronic rhinitis Mixed hyperlipidemia Hyperthyroidism Thyrotoxicosis 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 or other cause, without mention of thyrotoxic crisis or storm Obstructive sleep apnea on CPAP Esophageal perforation- Primary Perforation of esophagus documented in this encounter [facility] Work Phone: Evaluation note* Diagnosis ALISHA on CPAP- Primary Type 2 diabetes mellitus without complication, 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 Chronic diastolic congestive heart failure Hypertension, essential, benign Essential hypertension, benign Peripheral arterial occlusive disease (CMS-HCC) Unspecified peripheral vascular disease Permanent atrial fibrillation (Multi) Atrial fibrillation Sinus node dysfunction (Multi) Gastroesophageal reflux disease without esophagitis Esophageal reflux Benign prostatic hyperplasia without lower urinary tract symptoms Sacroiliitis (CMS-HCC) Sacroiliitis, not elsewhere classified Screening for prostate cancer Special screening for malignant neoplasm of prostate Low testosterone in male Chronic rhinitis Mixed hyperlipidemia- Primary Gastroesophageal reflux disease without esophagitis Esophageal reflux Hypertension, essential, benign Essential hypertension, benign Permanent atrial fibrillation (Multi) Atrial fibrillation Benign prostatic hyperplasia without lower urinary tract symptoms Major depressive disorder, single episode, in partial remission (CMS-HCC) Major depressive disorder, single episode, in partial or unspecified remission COVID-19 Type 2 diabetes mellitus without complication, without long-term current use of insulin- Primary Chronic diastolic congestive heart failure Mixed hyperlipidemia Hypertension, essential, benign Essential hypertension, benign Mild CAD Peripheral arterial occlusive disease (CMS-HCC) Unspecified peripheral vascular disease Permanent atrial fibrillation (Multi) Atrial fibrillation Gastroesophageal reflux disease without esophagitis Esophageal reflux Benign prostatic hyperplasia without lower urinary tract symptoms Major depressive disorder, single episode, in partial remission (CMS-HCC) Major depressive disorder, single episode, in partial or unspecified remission Sacroiliitis (CMS-HCC) Sacroiliitis, not elsewhere classified ALISHA on CPAP Low testosterone Sinus node dysfunction (Multi) Low testosterone in male Dizziness- Primary Dizziness and giddiness Chronic fatigue Other malaise and fatigue Chronic diastolic congestive heart failure Hypertension, essential, benign Essential hypertension, benign Permanent atrial fibrillation (Multi) Atrial fibrillation Hypertension, essential, benign- Primary Essential hypertension, benign Dizziness Dizziness and giddiness Chronic fatigue Other malaise and fatigue Type 2 diabetes mellitus without complication, without long-term current use of insulin Low testosterone in male Skin tear of right elbow without complication, subsequent encounter- Primary Chronic diastolic congestive heart failure Type 2 diabetes mellitus without complication, without long-term current use of insulin Low testosterone in male ALISHA on CPAP Routine general medical examination at health care facility- Primary Routine general medical examination at a health care facility Chronic diastolic congestive heart failure Mixed hyperlipidemia Hypertension, essential, benign Essential hypertension, benign Mild CAD Peripheral arterial occlusive disease (CMS-HCC) Unspecified peripheral vascular disease Permanent atrial fibrillation (Multi) Atrial fibrillation Type 2 diabetes mellitus without complication, without long-term current use of insulin Gastroesophageal reflux disease without esophagitis Esophageal reflux Benign prostatic hyperplasia without lower urinary tract symptoms Major depressive disorder, single episode, in partial remission (CMS-HCC) Major depressive disorder, single episode, in partial or unspecified remission Sacroiliitis (CMS-HCC) Sacroiliitis, not elsewhere classified ALISHA on CPAP Low testosterone 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 Spinal stenosis of lumbar region Generalized osteoarthritis of multiple sites Generalized osteoarthrosis, involving multiple sites 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, 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 Type 2 diabetes mellitus without complication, without long-term current use of insulin- Primary 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 stenosis Spinal stenosis of lumbar region Sacroiliitis (CMS-HCC) Sacroiliitis, not elsewhere classified Generalized osteoarthritis of multiple sites Generalized osteoarthrosis, involving multiple sites 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, lumbosacral region Screening for prostate cancer Special screening for malignant neoplasm of prostate Gastroesophageal reflux disease without esophagitis Esophageal reflux Hypertension, essential, benign Essential hypertension, benign Mixed hyperlipidemia Permanent atrial fibrillation (Multi) Atrial fibrillation Low testosterone in male Chronic diastolic congestive heart failure Peripheral arterial occlusive disease (CMS-HCC) Unspecified peripheral vascular disease Type 2 diabetes mellitus without complication, without long-term current use of insulin- Primary 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 stenosis Spinal stenosis of lumbar region Sacroiliitis (CMS-HCC) Sacroiliitis, not elsewhere classified Generalized osteoarthritis of multiple sites Generalized osteoarthrosis, involving multiple sites 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, lumbosacral region Gastroesophageal reflux disease without esophagitis Esophageal reflux Hypertension, essential, benign Essential hypertension, benign Mixed hyperlipidemia Permanent atrial fibrillation (Multi) Atrial fibrillation Low testosterone in male Chronic diastolic congestive heart failure Elevated PSA measurement Peripheral arterial occlusive disease (CMS-HCC) Unspecified peripheral vascular disease Sinus node dysfunction (Multi) Bronchitis- Primary Bronchitis, not specified as acute or chronic Type 2 diabetes mellitus without complication, without long-term current use of insulin Chronic diastolic congestive heart failure Permanent atrial fibrillation (Multi) Atrial fibrillation Gastroesophageal reflux disease without esophagitis Esophageal reflux Benign prostatic hyperplasia without lower urinary tract symptoms Chronic rhinitis Mixed hyperlipidemia Hyperthyroidism Thyrotoxicosis 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 or other cause, without mention of thyrotoxic crisis or storm Obstructive sleep apnea on CPAP Hypertension, essential, benign- Primary Essential hypertension, benign Permanent atrial fibrillation (Multi) Atrial fibrillation Heart failure with mildly reduced ejection fraction (HFmrEF) Type 2 diabetes mellitus without complication, without long-term current use of insulin Gastroesophageal reflux disease without esophagitis Esophageal reflux Other fatigue Esophageal perforation Perforation of esophagus documented in this encounter [facility] Work Phone: Evaluation note* Diagnosis ALISHA on CPAP- Primary Type 2 diabetes mellitus without complication, 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 Chronic diastolic congestive heart failure Hypertension, essential, benign Essential hypertension, benign Peripheral arterial occlusive disease (CMS-HCC) Unspecified peripheral vascular disease Permanent atrial fibrillation (Multi) Atrial fibrillation Sinus node dysfunction (Multi) Gastroesophageal reflux disease without esophagitis Esophageal reflux Benign prostatic hyperplasia without lower urinary tract symptoms Sacroiliitis (CMS-HCC) Sacroiliitis, not elsewhere classified Screening for prostate cancer Special screening for malignant neoplasm of prostate Low testosterone in male Chronic rhinitis Mixed hyperlipidemia- Primary Gastroesophageal reflux disease without esophagitis Esophageal reflux Hypertension, essential, benign Essential hypertension, benign Permanent atrial fibrillation (Multi) Atrial fibrillation Benign prostatic hyperplasia without lower urinary tract symptoms Major depressive disorder, single episode, in partial remission (CMS-HCC) Major depressive disorder, single episode, in partial or unspecified remission COVID-19 Type 2 diabetes mellitus without complication, without long-term current use of insulin- Primary Chronic diastolic congestive heart failure Mixed hyperlipidemia Hypertension, essential, benign Essential hypertension, benign Mild CAD Peripheral arterial occlusive disease (CMS-HCC) Unspecified peripheral vascular disease Permanent atrial fibrillation (Multi) Atrial fibrillation Gastroesophageal reflux disease without esophagitis Esophageal reflux Benign prostatic hyperplasia without lower urinary tract symptoms Major depressive disorder, single episode, in partial remission (CMS-HCC) Major depressive disorder, single episode, in partial or unspecified remission Sacroiliitis (CMS-HCC) Sacroiliitis, not elsewhere classified ALISHA on CPAP Low testosterone Sinus node dysfunction (Multi) Low testosterone in male Dizziness- Primary Dizziness and giddiness Chronic fatigue Other malaise and fatigue Chronic diastolic congestive heart failure Hypertension, essential, benign Essential hypertension, benign Permanent atrial fibrillation (Multi) Atrial fibrillation Hypertension, essential, benign- Primary Essential hypertension, benign Dizziness Dizziness and giddiness Chronic fatigue Other malaise and fatigue Type 2 diabetes mellitus without complication, without long-term current use of insulin Low testosterone in male Skin tear of right elbow without complication, subsequent encounter- Primary Chronic diastolic congestive heart failure Type 2 diabetes mellitus without complication, without long-term current use of insulin Low testosterone in male ALISHA on CPAP Routine general medical examination at health care facility- Primary Routine general medical examination at a health care facility Chronic diastolic congestive heart failure Mixed hyperlipidemia Hypertension, essential, benign Essential hypertension, benign Mild CAD Peripheral arterial occlusive disease (CMS-HCC) Unspecified peripheral vascular disease Permanent atrial fibrillation (Multi) Atrial fibrillation Type 2 diabetes mellitus without complication, without long-term current use of insulin Gastroesophageal reflux disease without esophagitis Esophageal reflux Benign prostatic hyperplasia without lower urinary tract symptoms Major depressive disorder, single episode, in partial remission (CMS-HCC) Major depressive disorder, single episode, in partial or unspecified remission Sacroiliitis (CMS-HCC) Sacroiliitis, not elsewhere classified ALISHA on CPAP Low testosterone 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 Spinal stenosis of lumbar region Generalized osteoarthritis of multiple sites Generalized osteoarthrosis, involving multiple sites 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, 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 Type 2 diabetes mellitus without complication, without long-term current use of insulin- Primary 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 stenosis Spinal stenosis of lumbar region Sacroiliitis ([facility]-HCC) Sacroiliitis, not elsewhere classified Generalized osteoarthritis of multiple sites Generalized osteoarthrosis, involving multiple sites 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, lumbosacral region Screening for prostate cancer Special screening for malignant neoplasm of prostate Gastroesophageal reflux disease without esophagitis Esophageal reflux Hypertension, essential, benign Essential hypertension, benign Mixed hyperlipidemia Permanent atrial fibrillation (Multi) Atrial fibrillation Low testosterone in male Chronic diastolic congestive heart failure Peripheral arterial occlusive disease ([facility]-HCC) Unspecified peripheral vascular disease Type 2 diabetes mellitus without complication, without long-term current use of insulin- Primary 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 stenosis Spinal stenosis of lumbar region Sacroiliitis (CMS-HCC) Sacroiliitis, not elsewhere classified Generalized osteoarthritis of multiple sites Generalized osteoarthrosis, involving multiple sites 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, lumbosacral region Gastroesophageal reflux disease without esophagitis Esophageal reflux Hypertension, essential, benign Essential hypertension, benign Mixed hyperlipidemia Permanent atrial fibrillation (Multi) Atrial fibrillation Low testosterone in male Chronic diastolic congestive heart failure Elevated PSA measurement Peripheral arterial occlusive disease ([facility]) Unspecified peripheral vascular disease Sinus node dysfunction (Multi) Bronchitis- Primary Bronchitis, not specified as acute or chronic Type 2 diabetes mellitus without complication, without long-term current use of insulin Chronic diastolic congestive heart failure Permanent atrial fibrillation (Multi) Atrial fibrillation Gastroesophageal reflux disease without esophagitis Esophageal reflux Benign prostatic hyperplasia without lower urinary tract symptoms Chronic rhinitis Mixed hyperlipidemia Hyperthyroidism Thyrotoxicosis 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 or other cause, without mention of thyrotoxic crisis or storm Obstructive sleep apnea on CPAP Hypertension, essential, benign- Primary Essential hypertension, benign Permanent atrial fibrillation (Multi) Atrial fibrillation Heart failure with mildly reduced ejection fraction (HFmrEF) Type 2 diabetes mellitus without complication, without long-term current use of insulin Gastroesophageal reflux disease without esophagitis Esophageal reflux Other fatigue Esophageal perforation Perforation of esophagus Routine general medical examination at health care facility- Primary Routine general medical examination at a health care facility 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 stenosis Spinal stenosis of lumbar region Sacroiliitis ([facility]-HCC) Sacroiliitis, not elsewhere classified Generalized osteoarthritis of multiple sites Generalized osteoarthrosis, involving multiple sites 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, lumbosacral region Gastroesophageal reflux disease without esophagitis Esophageal reflux Hypertension, essential, benign Essential hypertension, benign Mixed hyperlipidemia Type 2 diabetes mellitus without complication, without long-term current use of insulin Permanent atrial fibrillation (Multi) Atrial fibrillation Low testosterone in male Chronic diastolic congestive heart failure Chronic idiopathic constipation Unspecified constipation Screening for prostate cancer Special screening for malignant neoplasm of prostate documented in this encounter [facility] Work Phone: Evaluation note* Diagnosis ALISHA on CPAP- Primary Type 2 diabetes mellitus without complication, 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 Chronic diastolic congestive heart failure Hypertension, essential, benign Essential hypertension, benign Peripheral arterial occlusive disease Unspecified peripheral vascular disease Permanent atrial fibrillation (Multi) Atrial fibrillation Sinus node dysfunction (Multi) Gastroesophageal reflux disease without esophagitis Esophageal reflux Benign prostatic hyperplasia without lower urinary tract symptoms Sacroiliitis Sacroiliitis, not elsewhere classified Screening for prostate cancer Special screening for malignant neoplasm of prostate Low testosterone in male Chronic rhinitis Mixed hyperlipidemia- Primary Gastroesophageal reflux disease without esophagitis Esophageal reflux Hypertension, essential, benign Essential hypertension, benign Permanent atrial fibrillation (Multi) Atrial fibrillation Benign prostatic hyperplasia without lower urinary tract symptoms Major depressive disorder, single episode, in partial remission Major depressive disorder, single episode, in partial or unspecified remission COVID-19 Type 2 diabetes mellitus without complication, without long-term current use of insulin- Primary Chronic diastolic congestive heart failure Mixed hyperlipidemia Hypertension, essential, benign Essential hypertension, benign Mild CAD Peripheral arterial occlusive disease Unspecified peripheral vascular disease Permanent atrial fibrillation (Multi) Atrial fibrillation Gastroesophageal reflux disease without esophagitis Esophageal reflux Benign prostatic hyperplasia without lower urinary tract symptoms Major depressive disorder, single episode, in partial remission Major depressive disorder, single episode, in partial or unspecified remission Sacroiliitis Sacroiliitis, not elsewhere classified ALISHA on CPAP Low testosterone Sinus node dysfunction (Multi) Low testosterone in male Dizziness- Primary Dizziness and giddiness Chronic fatigue Other malaise and fatigue Chronic diastolic congestive heart failure Hypertension, essential, benign Essential hypertension, benign Permanent atrial fibrillation (Multi) Atrial fibrillation Hypertension, essential, benign- Primary Essential hypertension, benign Dizziness Dizziness and giddiness Chronic fatigue Other malaise and fatigue Type 2 diabetes mellitus without complication, without long-term current use of insulin Low testosterone in male Skin tear of right elbow without complication, subsequent encounter- Primary Chronic diastolic congestive heart failure Type 2 diabetes mellitus without complication, without long-term current use of insulin Low testosterone in male ALISHA on CPAP Routine general medical examination at health care facility- Primary Routine general medical examination at a health care facility Chronic diastolic congestive heart failure Mixed hyperlipidemia Hypertension, essential, benign Essential hypertension, benign Mild CAD Peripheral arterial occlusive disease Unspecified peripheral vascular disease Permanent atrial fibrillation (Multi) Atrial fibrillation Type 2 diabetes mellitus without complication, without long-term current use of insulin Gastroesophageal reflux disease without esophagitis Esophageal reflux Benign prostatic hyperplasia without lower urinary tract symptoms Major depressive disorder, single episode, in partial remission Major depressive disorder, single episode, in partial or unspecified remission Sacroiliitis Sacroiliitis, not elsewhere classified ALISHA on CPAP Low testosterone 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 Spinal stenosis of lumbar region Generalized osteoarthritis of multiple sites Generalized osteoarthrosis, involving multiple sites 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, 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 Type 2 diabetes mellitus without complication, without long-term current use of insulin- Primary 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 stenosis Spinal stenosis of lumbar region Sacroiliitis Sacroiliitis, not elsewhere classified Generalized osteoarthritis of multiple sites Generalized osteoarthrosis, involving multiple sites 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, lumbosacral region Screening for prostate cancer Special screening for malignant neoplasm of prostate Gastroesophageal reflux disease without esophagitis Esophageal reflux Hypertension, essential, benign Essential hypertension, benign Mixed hyperlipidemia Permanent atrial fibrillation (Multi) Atrial fibrillation Low testosterone in male Chronic diastolic congestive heart failure Peripheral arterial occlusive disease Unspecified peripheral vascular disease Type 2 diabetes mellitus without complication, without long-term current use of insulin- Primary 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 stenosis Spinal stenosis of lumbar region Sacroiliitis Sacroiliitis, not elsewhere classified Generalized osteoarthritis of multiple sites Generalized osteoarthrosis, involving multiple sites 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, lumbosacral region Gastroesophageal reflux disease without esophagitis Esophageal reflux Hypertension, essential, benign Essential hypertension, benign Mixed hyperlipidemia Permanent atrial fibrillation (Multi) Atrial fibrillation Low testosterone in male Chronic diastolic congestive heart failure Elevated PSA measurement Peripheral arterial occlusive disease Unspecified peripheral vascular disease Sinus node dysfunction (Multi) Bronchitis- Primary Bronchitis, not specified as acute or chronic Type 2 diabetes mellitus without complication, without long-term current use of insulin Chronic diastolic congestive heart failure Permanent atrial fibrillation (Multi) Atrial fibrillation Gastroesophageal reflux disease without esophagitis Esophageal reflux Benign prostatic hyperplasia without lower urinary tract symptoms Chronic rhinitis Mixed hyperlipidemia Hyperthyroidism Thyrotoxicosis 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 or other cause, without mention of thyrotoxic crisis or storm Obstructive sleep apnea on CPAP Hypertension, essential, benign- Primary Essential hypertension, benign Permanent atrial fibrillation (Multi) Atrial fibrillation Heart failure with mildly reduced ejection fraction (HFmrEF) Type 2 diabetes mellitus without complication, without long-term current use of insulin Gastroesophageal reflux disease without esophagitis Esophageal reflux Other fatigue Esophageal perforation Perforation of esophagus Routine general medical examination at health care facility- Primary Routine general medical examination at a health care facility 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 stenosis Spinal stenosis of lumbar region Sacroiliitis Sacroiliitis, not elsewhere classified Generalized osteoarthritis of multiple sites Generalized osteoarthrosis, involving multiple sites 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, lumbosacral region Gastroesophageal reflux disease without esophagitis Esophageal reflux Hypertension, essential, benign Essential hypertension, benign Mixed hyperlipidemia Type 2 diabetes mellitus without complication, without long-term current use of insulin Permanent atrial fibrillation (Multi) Atrial fibrillation Low testosterone in male Chronic diastolic congestive heart failure Chronic idiopathic constipation Unspecified constipation Screening for prostate cancer Special screening for malignant neoplasm of prostate Encounter for adjustment and management of automatic implantable cardiac defibrillator documented in this encounter [facility] Work Phone: Evaluation note* Diagnosis ALISHA on CPAP- Primary Type 2 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 mellitus without complication, 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 Chronic diastolic congestive heart failure Hypertension, essential, benign Essential hypertension, benign Peripheral arterial occlusive disease Unspecified peripheral vascular disease Permanent atrial fibrillation (Multi) Atrial fibrillation Sinus node dysfunction (Multi) Gastroesophageal reflux disease without esophagitis Esophageal reflux Benign prostatic hyperplasia without lower urinary tract symptoms Sacroiliitis Sacroiliitis, not elsewhere classified Screening for prostate cancer Special screening for malignant neoplasm of prostate Low testosterone in male Chronic rhinitis Mixed hyperlipidemia- Primary Gastroesophageal reflux disease without esophagitis Esophageal reflux Hypertension, essential, benign Essential hypertension, benign Permanent atrial fibrillation (Multi) Atrial fibrillation Benign prostatic hyperplasia without lower urinary tract symptoms Major depressive disorder, single episode, in partial remission Major depressive disorder, single episode, in partial or unspecified remission COVID-19 Type 2 diabetes mellitus without complication, without long-term current use of insulin- Primary Chronic diastolic congestive heart failure Mixed hyperlipidemia Hypertension, essential, benign Essential hypertension, benign Mild CAD Peripheral arterial occlusive disease Unspecified peripheral vascular disease Permanent atrial fibrillation (Multi) Atrial fibrillation Gastroesophageal reflux disease without esophagitis Esophageal reflux Benign prostatic hyperplasia without lower urinary tract symptoms Major depressive disorder, single episode, in partial remission Major depressive disorder, single episode, in partial or unspecified remission Sacroiliitis Sacroiliitis, not elsewhere classified ALISHA on CPAP Low testosterone Sinus node dysfunction (Multi) Low testosterone in male Dizziness- Primary Dizziness and giddiness Chronic fatigue Other malaise and fatigue Chronic diastolic congestive heart failure Hypertension, essential, benign Essential hypertension, benign Permanent atrial fibrillation (Multi) Atrial fibrillation Hypertension, essential, benign- Primary Essential hypertension, benign Dizziness Dizziness and giddiness Chronic fatigue Other malaise and fatigue Type 2 diabetes mellitus without complication, without long-term current use of insulin Low testosterone in male Skin tear of right elbow without complication, subsequent encounter- Primary Chronic diastolic congestive heart failure Type 2 diabetes mellitus without complication, without long-term current use of insulin Low testosterone in male ALISHA on CPAP Routine general medical examination at health care facility- Primary Routine general medical examination at a health care facility Chronic diastolic congestive heart failure Mixed hyperlipidemia Hypertension, essential, benign Essential hypertension, benign Mild CAD Peripheral arterial occlusive disease Unspecified peripheral vascular disease Permanent atrial fibrillation (Multi) Atrial fibrillation Type 2 diabetes mellitus without complication, without long-term current use of insulin Gastroesophageal reflux disease without esophagitis Esophageal reflux Benign prostatic hyperplasia without lower urinary tract symptoms Major depressive disorder, single episode, in partial remission Major depressive disorder, single episode, in partial or unspecified remission Sacroiliitis Sacroiliitis, not elsewhere classified ALISHA on CPAP Low testosterone 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 Spinal stenosis of lumbar region Generalized osteoarthritis of multiple sites Generalized osteoarthrosis, involving multiple sites 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, 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 Type 2 diabetes mellitus without complication, without long-term current use of insulin- Primary 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 stenosis Spinal stenosis of lumbar region Sacroiliitis Sacroiliitis, not elsewhere classified Generalized osteoarthritis of multiple sites Generalized osteoarthrosis, involving multiple sites 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, lumbosacral region Screening for prostate cancer Special screening for malignant neoplasm of prostate Gastroesophageal reflux disease without esophagitis Esophageal reflux Hypertension, essential, benign Essential hypertension, benign Mixed hyperlipidemia Permanent atrial fibrillation (Multi) Atrial fibrillation Low testosterone in male Chronic diastolic congestive heart failure Peripheral arterial occlusive disease Unspecified peripheral vascular disease Type 2 diabetes mellitus without complication, without long-term current use of insulin- Primary 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 stenosis Spinal stenosis of lumbar region Sacroiliitis Sacroiliitis, not elsewhere classified Generalized osteoarthritis of multiple sites Generalized osteoarthrosis, involving multiple sites 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, lumbosacral region Gastroesophageal reflux disease without esophagitis Esophageal reflux Hypertension, essential, benign Essential hypertension, benign Mixed hyperlipidemia Permanent atrial fibrillation (Multi) Atrial fibrillation Low testosterone in male Chronic diastolic congestive heart failure Elevated PSA measurement Peripheral arterial occlusive disease Unspecified peripheral vascular disease Sinus node dysfunction (Multi) Bronchitis- Primary Bronchitis, not specified as acute or chronic Type 2 diabetes mellitus without complication, without long-term current use of insulin Chronic diastolic congestive heart failure Permanent atrial fibrillation (Multi) Atrial fibrillation Gastroesophageal reflux disease without esophagitis Esophageal reflux Benign prostatic hyperplasia without lower urinary tract symptoms Chronic rhinitis Mixed hyperlipidemia Hyperthyroidism Thyrotoxicosis 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 or other cause, without mention of thyrotoxic crisis or storm Obstructive sleep apnea on CPAP Hypertension, essential, benign- Primary Essential hypertension, benign Permanent atrial fibrillation (Multi) Atrial fibrillation Heart failure with mildly reduced ejection fraction (HFmrEF) Type 2 diabetes mellitus without complication, without long-term current use of insulin Gastroesophageal reflux disease without esophagitis Esophageal reflux Other fatigue Esophageal perforation Perforation of esophagus Routine general medical examination at health care facility- Primary Routine general medical examination at a health care facility 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 stenosis Spinal stenosis of lumbar region Sacroiliitis Sacroiliitis, not elsewhere classified Generalized osteoarthritis of multiple sites Generalized osteoarthrosis, involving multiple sites 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, lumbosacral region Gastroesophageal reflux disease without esophagitis Esophageal reflux Hypertension, essential, benign Essential hypertension, benign Mixed hyperlipidemia Type 2 diabetes mellitus without complication, without long-term current use of insulin Permanent atrial fibrillation (Multi) Atrial fibrillation Low testosterone in male Chronic diastolic congestive heart failure Chronic idiopathic constipation Unspecified constipation Screening for prostate cancer Special screening for malignant neoplasm of prostate Subclavian vein stenosis- Primary Compression of vein Persistent atrial fibrillation (Multi) Atrial fibrillation Sick sinus syndrome (Multi) Sinoatrial node dysfunction SSS (sick sinus syndrome) (Multi) Sinoatrial node dysfunction Permanent atrial fibrillation (Multi) Atrial fibrillation Mixed hyperlipidemia Heart failure with mildly reduced ejection fraction (HFmrEF) Hypertension, essential, benign Essential hypertension, benign documented in this encounter [facility] Work Phone: Evaluation note* Diagnosis ALISHA on CPAP- Primary 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 2 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 without complication, 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 Chronic diastolic congestive heart failure Hypertension, essential, benign Essential hypertension, benign Peripheral arterial occlusive disease Unspecified peripheral vascular disease Permanent atrial fibrillation (Multi) Atrial fibrillation Sinus node dysfunction (Multi) Gastroesophageal reflux disease without esophagitis Esophageal reflux Benign prostatic hyperplasia without lower urinary tract symptoms Sacroiliitis Sacroiliitis, not elsewhere classified Screening for prostate cancer Special screening for malignant neoplasm of prostate Low testosterone in male Chronic rhinitis Mixed hyperlipidemia- Primary Gastroesophageal reflux disease without esophagitis Esophageal reflux Hypertension, essential, benign Essential hypertension, benign Permanent atrial fibrillation (Multi) Atrial fibrillation Benign prostatic hyperplasia without lower urinary tract symptoms Major depressive disorder, single episode, in partial remission Major depressive disorder, single episode, in partial or unspecified remission COVID-19 Type 2 diabetes mellitus without complication, without long-term current use of insulin- Primary Chronic diastolic congestive heart failure Mixed hyperlipidemia Hypertension, essential, benign Essential hypertension, benign Mild CAD Peripheral arterial occlusive disease Unspecified peripheral vascular disease Permanent atrial fibrillation (Multi) Atrial fibrillation Gastroesophageal reflux disease without esophagitis Esophageal reflux Benign prostatic hyperplasia without lower urinary tract symptoms Major depressive disorder, single episode, in partial remission Major depressive disorder, single episode, in partial or unspecified remission Sacroiliitis Sacroiliitis, not elsewhere classified ALISHA on CPAP Low testosterone Sinus node dysfunction (Multi) Low testosterone in male Dizziness- Primary Dizziness and giddiness Chronic fatigue Other malaise and fatigue Chronic diastolic congestive heart failure Hypertension, essential, benign Essential hypertension, benign Permanent atrial fibrillation (Multi) Atrial fibrillation Hypertension, essential, benign- Primary Essential hypertension, benign Dizziness Dizziness and giddiness Chronic fatigue Other malaise and fatigue Type 2 diabetes mellitus without complication, without long-term current use of insulin Low testosterone in male Skin tear of right elbow without complication, subsequent encounter- Primary Chronic diastolic congestive heart failure Type 2 diabetes mellitus without complication, without long-term current use of insulin Low testosterone in male ALISHA on CPAP Routine general medical examination at health care facility- Primary Routine general medical examination at a health care facility Chronic diastolic congestive heart failure Mixed hyperlipidemia Hypertension, essential, benign Essential hypertension, benign Mild CAD Peripheral arterial occlusive disease Unspecified peripheral vascular disease Permanent atrial fibrillation (Multi) Atrial fibrillation Type 2 diabetes mellitus without complication, without long-term current use of insulin Gastroesophageal reflux disease without esophagitis Esophageal reflux Benign prostatic hyperplasia without lower urinary tract symptoms Major depressive disorder, single episode, in partial remission Major depressive disorder, single episode, in partial or unspecified remission Sacroiliitis Sacroiliitis, not elsewhere classified ALISHA on CPAP Low testosterone 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 Spinal stenosis of lumbar region Generalized osteoarthritis of multiple sites Generalized osteoarthrosis, involving multiple sites 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, 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 Type 2 diabetes mellitus without complication, without long-term current use of insulin- Primary 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 stenosis Spinal stenosis of lumbar region Sacroiliitis Sacroiliitis, not elsewhere classified Generalized osteoarthritis of multiple sites Generalized osteoarthrosis, involving multiple sites 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, lumbosacral region Screening for prostate cancer Special screening for malignant neoplasm of prostate Gastroesophageal reflux disease without esophagitis Esophageal reflux Hypertension, essential, benign Essential hypertension, benign Mixed hyperlipidemia Permanent atrial fibrillation (Multi) Atrial fibrillation Low testosterone in male Chronic diastolic congestive heart failure Peripheral arterial occlusive disease Unspecified peripheral vascular disease Type 2 diabetes mellitus without complication, without long-term current use of insulin- Primary 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 stenosis Spinal stenosis of lumbar region Sacroiliitis Sacroiliitis, not elsewhere classified Generalized osteoarthritis of multiple sites Generalized osteoarthrosis, involving multiple sites 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, lumbosacral region Gastroesophageal reflux disease without esophagitis Esophageal reflux Hypertension, essential, benign Essential hypertension, benign Mixed hyperlipidemia Permanent atrial fibrillation (Multi) Atrial fibrillation Low testosterone in male Chronic diastolic congestive heart failure Elevated PSA measurement Peripheral arterial occlusive disease Unspecified peripheral vascular disease Sinus node dysfunction (Multi) Bronchitis- Primary Bronchitis, not specified as acute or chronic Type 2 diabetes mellitus without complication, without long-term current use of insulin Chronic diastolic congestive heart failure Permanent atrial fibrillation (Multi) Atrial fibrillation Gastroesophageal reflux disease without esophagitis Esophageal reflux Benign prostatic hyperplasia without lower urinary tract symptoms Chronic rhinitis Mixed hyperlipidemia Hyperthyroidism Thyrotoxicosis 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 or other cause, without mention of thyrotoxic crisis or storm Obstructive sleep apnea on CPAP Hypertension, essential, benign- Primary Essential hypertension, benign Permanent atrial fibrillation (Multi) Atrial fibrillation Heart failure with mildly reduced ejection fraction (HFmrEF) Type 2 diabetes mellitus without complication, without long-term current use of insulin Gastroesophageal reflux disease without esophagitis Esophageal reflux Other fatigue Esophageal perforation Perforation of esophagus Routine general medical examination at health care facility- Primary Routine general medical examination at a health care facility 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 stenosis Spinal stenosis of lumbar region Sacroiliitis Sacroiliitis, not elsewhere classified Generalized osteoarthritis of multiple sites Generalized osteoarthrosis, involving multiple sites 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, lumbosacral region Gastroesophageal reflux disease without esophagitis Esophageal reflux Hypertension, essential, benign Essential hypertension, benign Mixed hyperlipidemia Type 2 diabetes mellitus without complication, without long-term current use of insulin Permanent atrial fibrillation (Multi) Atrial fibrillation Low testosterone in male Chronic diastolic congestive heart failure Chronic idiopathic constipation Unspecified constipation Screening for prostate cancer Special screening for malignant neoplasm of prostate Tinea cruris- Primary Dermatophytosis of groin and perianal area documented in this encounter [facility] Work Phone: Evaluation note* Diagnosis ALISHA on CPAP- Primary 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 without complication, 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 Chronic diastolic congestive heart failure Hypertension, essential, benign Essential hypertension, benign Peripheral arterial occlusive disease Unspecified peripheral vascular disease Permanent atrial fibrillation (Multi) Atrial fibrillation Sinus node dysfunction (Multi) Gastroesophageal reflux disease without esophagitis Esophageal reflux Benign prostatic hyperplasia without lower urinary tract symptoms Sacroiliitis Sacroiliitis, not elsewhere classified Screening for prostate cancer Special screening for malignant neoplasm of prostate Low testosterone in male Chronic rhinitis Mixed hyperlipidemia- Primary Gastroesophageal reflux disease without esophagitis Esophageal reflux Hypertension, essential, benign Essential hypertension, benign Permanent atrial fibrillation (Multi) Atrial fibrillation Benign prostatic hyperplasia without lower urinary tract symptoms Major depressive disorder, single episode, in partial remission Major depressive disorder, single episode, in partial or unspecified remission COVID-19 Type 2 diabetes mellitus without complication, without long-term current use of insulin- Primary Chronic diastolic congestive heart failure Mixed hyperlipidemia Hypertension, essential, benign Essential hypertension, benign Mild CAD Peripheral arterial occlusive disease Unspecified peripheral vascular disease Permanent atrial fibrillation (Multi) Atrial fibrillation Gastroesophageal reflux disease without esophagitis Esophageal reflux Benign prostatic hyperplasia without lower urinary tract symptoms Major depressive disorder, single episode, in partial remission Major depressive disorder, single episode, in partial or unspecified remission Sacroiliitis Sacroiliitis, not elsewhere classified ALISHA on CPAP Low testosterone Sinus node dysfunction (Multi) Low testosterone in male Dizziness- Primary Dizziness and giddiness Chronic fatigue Other malaise and fatigue Chronic diastolic congestive heart failure Hypertension, essential, benign Essential hypertension, benign Permanent atrial fibrillation (Multi) Atrial fibrillation Hypertension, essential, benign- Primary Essential hypertension, benign Dizziness Dizziness and giddiness Chronic fatigue Other malaise and fatigue Type 2 diabetes mellitus without complication, without long-term current use of insulin Low testosterone in male Skin tear of right elbow without complication, subsequent encounter- Primary Chronic diastolic congestive heart failure Type 2 diabetes mellitus without complication, without long-term current use of insulin Low testosterone in male ALIHSA on CPAP Routine general medical examination at health care facility- Primary Routine general medical examination at a health care facility Chronic diastolic congestive heart failure Mixed hyperlipidemia Hypertension, essential, benign Essential hypertension, benign Mild CAD Peripheral arterial occlusive disease Unspecified peripheral vascular disease Permanent atrial fibrillation (Multi) Atrial fibrillation Type 2 diabetes mellitus without complication, without long-term current use of insulin Gastroesophageal reflux disease without esophagitis Esophageal reflux Benign prostatic hyperplasia without lower urinary tract symptoms Major depressive disorder, single episode, in partial remission Major depressive disorder, single episode, in partial or unspecified remission Sacroiliitis Sacroiliitis, not elsewhere classified ALISHA on CPAP Low testosterone 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 Spinal stenosis of lumbar region Generalized osteoarthritis of multiple sites Generalized osteoarthrosis, involving multiple sites 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, 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 Type 2 diabetes mellitus without complication, without long-term current use of insulin- Primary 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 stenosis Spinal stenosis of lumbar region Sacroiliitis Sacroiliitis, not elsewhere classified Generalized osteoarthritis of multiple sites Generalized osteoarthrosis, involving multiple sites 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, lumbosacral region Screening for prostate cancer Special screening for malignant neoplasm of prostate Gastroesophageal reflux disease without esophagitis Esophageal reflux Hypertension, essential, benign Essential hypertension, benign Mixed hyperlipidemia Permanent atrial fibrillation (Multi) Atrial fibrillation Low testosterone in male Chronic diastolic congestive heart failure Peripheral arterial occlusive disease Unspecified peripheral vascular disease Type 2 diabetes mellitus without complication, without long-term current use of insulin- Primary 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 stenosis Spinal stenosis of lumbar region Sacroiliitis Sacroiliitis, not elsewhere classified Generalized osteoarthritis of multiple sites Generalized osteoarthrosis, involving multiple sites 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, lumbosacral region Gastroesophageal reflux disease without esophagitis Esophageal reflux Hypertension, essential, benign Essential hypertension, benign Mixed hyperlipidemia Permanent atrial fibrillation (Multi) Atrial fibrillation Low testosterone in male Chronic diastolic congestive heart failure Elevated PSA measurement Peripheral arterial occlusive disease Unspecified peripheral vascular disease Sinus node dysfunction (Multi) Bronchitis- Primary Bronchitis, not specified as acute or chronic Type 2 diabetes mellitus without complication, without long-term current use of insulin Chronic diastolic congestive heart failure Permanent atrial fibrillation (Multi) Atrial fibrillation Gastroesophageal reflux disease without esophagitis Esophageal reflux Benign prostatic hyperplasia without lower urinary tract symptoms Chronic rhinitis Mixed hyperlipidemia Hyperthyroidism Thyrotoxicosis 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 or other cause, without mention of thyrotoxic crisis or storm Obstructive sleep apnea on CPAP Hypertension, essential, benign- Primary Essential hypertension, benign Permanent atrial fibrillation (Multi) Atrial fibrillation Heart failure with mildly reduced ejection fraction (HFmrEF) Type 2 diabetes mellitus without complication, without long-term current use of insulin Gastroesophageal reflux disease without esophagitis Esophageal reflux Other fatigue Esophageal perforation Perforation of esophagus Routine general medical examination at health care facility- Primary Routine general medical examination at a health care facility 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 stenosis Spinal stenosis of lumbar region Sacroiliitis Sacroiliitis, not elsewhere classified Generalized osteoarthritis of multiple sites Generalized osteoarthrosis, involving multiple sites 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, lumbosacral region Gastroesophageal reflux disease without esophagitis Esophageal reflux Hypertension, essential, benign Essential hypertension, benign Mixed hyperlipidemia Type 2 diabetes mellitus without complication, without long-term current use of insulin Permanent atrial fibrillation (Multi) Atrial fibrillation Low testosterone in male Chronic diastolic congestive heart failure Chronic idiopathic constipation Unspecified constipation Screening for prostate cancer Special screening for malignant neoplasm of prostate Dizziness- Primary Dizziness and giddiness documented in this encounter [facility] Work Phone: Evaluation note* Diagnosis ALISHA on CPAP- Primary Type 2 diabetes mellitus without complication, 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 Chronic diastolic congestive heart failure Hypertension, essential, benign Essential hypertension, benign Peripheral arterial occlusive disease Unspecified peripheral vascular disease Permanent atrial fibrillation (Multi) Atrial fibrillation Sinus node dysfunction (Multi) Gastroesophageal reflux disease without esophagitis Esophageal reflux Benign prostatic hyperplasia without lower urinary tract symptoms Sacroiliitis Sacroiliitis, not elsewhere classified Screening for prostate cancer Special screening for malignant neoplasm of prostate Low testosterone in male Chronic rhinitis Mixed hyperlipidemia- Primary Gastroesophageal reflux disease without esophagitis Esophageal reflux Hypertension, essential, benign Essential hypertension, benign Permanent atrial fibrillation (Multi) Atrial fibrillation Benign prostatic hyperplasia without lower urinary tract symptoms Major depressive disorder, single episode, in partial remission Major depressive disorder, single episode, in partial or unspecified remission COVID-19 Type 2 diabetes mellitus without complication, without long-term current use of insulin- Primary Chronic diastolic congestive heart failure Mixed hyperlipidemia Hypertension, essential, benign Essential hypertension, benign Mild CAD Peripheral arterial occlusive disease Unspecified peripheral vascular disease Permanent atrial fibrillation (Multi) Atrial fibrillation Gastroesophageal reflux disease without esophagitis Esophageal reflux Benign prostatic hyperplasia without lower urinary tract symptoms Major depressive disorder, single episode, in partial remission Major depressive disorder, single episode, in partial or unspecified remission Sacroiliitis Sacroiliitis, not elsewhere classified ALISHA on CPAP Low testosterone Sinus node dysfunction (Multi) Low testosterone in male Dizziness- Primary Dizziness and giddiness Chronic fatigue Other malaise and fatigue Chronic diastolic congestive heart failure Hypertension, essential, benign Essential hypertension, benign Permanent atrial fibrillation (Multi) Atrial fibrillation Hypertension, essential, benign- Primary Essential hypertension, benign Dizziness Dizziness and giddiness Chronic fatigue Other malaise and fatigue Type 2 diabetes mellitus without complication, without long-term current use of insulin Low testosterone in male Skin tear of right elbow without complication, subsequent encounter- Primary Chronic diastolic congestive heart failure Type 2 diabetes mellitus without complication, without long-term current use of insulin Low testosterone in male ALISHA on CPAP Routine general medical examination at health care facility- Primary Routine general medical examination at a health care facility Chronic diastolic congestive heart failure Mixed hyperlipidemia Hypertension, essential, benign Essential hypertension, benign Mild CAD Peripheral arterial occlusive disease Unspecified peripheral vascular disease Permanent atrial fibrillation (Multi) Atrial fibrillation Type 2 diabetes mellitus without complication, without long-term current use of insulin Gastroesophageal reflux disease without esophagitis Esophageal reflux Benign prostatic hyperplasia without lower urinary tract symptoms Major depressive disorder, single episode, in partial remission Major depressive disorder, single episode, in partial or unspecified remission Sacroiliitis Sacroiliitis, not elsewhere classified ALISHA on CPAP Low testosterone 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 Spinal stenosis of lumbar region Generalized osteoarthritis of multiple sites Generalized osteoarthrosis, involving multiple sites 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, 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 Type 2 diabetes mellitus without complication, without long-term current use of insulin- Primary 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 stenosis Spinal stenosis of lumbar region Sacroiliitis Sacroiliitis, not elsewhere classified Generalized osteoarthritis of multiple sites Generalized osteoarthrosis, involving multiple sites 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, lumbosacral region Screening for prostate cancer Special screening for malignant neoplasm of prostate Gastroesophageal reflux disease without esophagitis Esophageal reflux Hypertension, essential, benign Essential hypertension, benign Mixed hyperlipidemia Permanent atrial fibrillation (Multi) Atrial fibrillation Low testosterone in male Chronic diastolic congestive heart failure Peripheral arterial occlusive disease Unspecified peripheral vascular disease Type 2 diabetes mellitus without complication, without long-term current use of insulin- Primary 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 stenosis Spinal stenosis of lumbar region Sacroiliitis Sacroiliitis, not elsewhere classified Generalized osteoarthritis of multiple sites Generalized osteoarthrosis, involving multiple sites 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, lumbosacral region Gastroesophageal reflux disease without esophagitis Esophageal reflux Hypertension, essential, benign Essential hypertension, benign Mixed hyperlipidemia Permanent atrial fibrillation (Multi) Atrial fibrillation Low testosterone in male Chronic diastolic congestive heart failure Elevated PSA measurement Peripheral arterial occlusive disease Unspecified peripheral vascular disease Sinus node dysfunction (Multi) Bronchitis- Primary Bronchitis, not specified as acute or chronic Type 2 diabetes mellitus without complication, without long-term current use of insulin Chronic diastolic congestive heart failure Permanent atrial fibrillation (Multi) Atrial fibrillation Gastroesophageal reflux disease without esophagitis Esophageal reflux Benign prostatic hyperplasia without lower urinary tract symptoms Chronic rhinitis Mixed hyperlipidemia Hyperthyroidism Thyrotoxicosis 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 or other cause, without mention of thyrotoxic crisis or storm Obstructive sleep apnea on CPAP Hypertension, essential, benign- Primary Essential hypertension, benign Permanent atrial fibrillation (Multi) Atrial fibrillation Heart failure with mildly reduced ejection fraction (HFmrEF) Type 2 diabetes mellitus without complication, without long-term current use of insulin Gastroesophageal reflux disease without esophagitis Esophageal reflux Other fatigue Esophageal perforation Perforation of esophagus Routine general medical examination at health care facility- Primary Routine general medical examination at a health care facility 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 stenosis Spinal stenosis of lumbar region Sacroiliitis Sacroiliitis, not elsewhere classified Generalized osteoarthritis of multiple sites Generalized osteoarthrosis, involving multiple sites 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, lumbosacral region Gastroesophageal reflux disease without esophagitis Esophageal reflux Hypertension, essential, benign Essential hypertension, benign Mixed hyperlipidemia Type 2 diabetes mellitus without complication, without long-term current use of insulin Permanent atrial fibrillation (Multi) Atrial fibrillation Low testosterone in male Chronic diastolic congestive heart failure Chronic idiopathic constipation Unspecified constipation Screening for prostate cancer Special screening for malignant neoplasm of prostate Orthostatic hypotension- Primary documented in this encounter [facility] Work Phone: Evaluation note* Diagnosis ALISHA on CPAP- Primary 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, 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 Chronic diastolic congestive heart failure Hypertension, essential, benign Essential hypertension, benign Peripheral arterial occlusive disease Unspecified peripheral vascular disease Permanent atrial fibrillation (Multi) Atrial fibrillation Sinus node dysfunction (Multi) Gastroesophageal reflux disease without esophagitis Esophageal reflux Benign prostatic hyperplasia without lower urinary tract symptoms Sacroiliitis Sacroiliitis, not elsewhere classified Screening for prostate cancer Special screening for malignant neoplasm of prostate Low testosterone in male Chronic rhinitis Mixed hyperlipidemia- Primary Gastroesophageal reflux disease without esophagitis Esophageal reflux Hypertension, essential, benign Essential hypertension, benign Permanent atrial fibrillation (Multi) Atrial fibrillation Benign prostatic hyperplasia without lower urinary tract symptoms Major depressive disorder, single episode, in partial remission Major depressive disorder, single episode, in partial or unspecified remission COVID-19 Type 2 diabetes mellitus without complication, without long-term current use of insulin- Primary Chronic diastolic congestive heart failure Mixed hyperlipidemia Hypertension, essential, benign Essential hypertension, benign Mild CAD Peripheral arterial occlusive disease Unspecified peripheral vascular disease Permanent atrial fibrillation (Multi) Atrial fibrillation Gastroesophageal reflux disease without esophagitis Esophageal reflux Benign prostatic hyperplasia without lower urinary tract symptoms Major depressive disorder, single episode, in partial remission Major depressive disorder, single episode, in partial or unspecified remission Sacroiliitis Sacroiliitis, not elsewhere classified ALISHA on CPAP Low testosterone Sinus node dysfunction (Multi) Low testosterone in male Dizziness- Primary Dizziness and giddiness Chronic fatigue Other malaise and fatigue Chronic diastolic congestive heart failure Hypertension, essential, benign Essential hypertension, benign Permanent atrial fibrillation (Multi) Atrial fibrillation Hypertension, essential, benign- Primary Essential hypertension, benign Dizziness Dizziness and giddiness Chronic fatigue Other malaise and fatigue Type 2 diabetes mellitus without complication, without long-term current use of insulin Low testosterone in male Skin tear of right elbow without complication, subsequent encounter- Primary Chronic diastolic congestive heart failure Type 2 diabetes mellitus without complication, without long-term current use of insulin Low testosterone in male ALISHA on CPAP Routine general medical examination at health care facility- Primary Routine general medical examination at a health care facility Chronic diastolic congestive heart failure Mixed hyperlipidemia Hypertension, essential, benign Essential hypertension, benign Mild CAD Peripheral arterial occlusive disease Unspecified peripheral vascular disease Permanent atrial fibrillation (Multi) Atrial fibrillation Type 2 diabetes mellitus without complication, without long-term current use of insulin Gastroesophageal reflux disease without esophagitis Esophageal reflux Benign prostatic hyperplasia without lower urinary tract symptoms Major depressive disorder, single episode, in partial remission Major depressive disorder, single episode, in partial or unspecified remission Sacroiliitis Sacroiliitis, not elsewhere classified ALISHA on CPAP Low testosterone 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 Spinal stenosis of lumbar region Generalized osteoarthritis of multiple sites Generalized osteoarthrosis, involving multiple sites 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, 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 Type 2 diabetes mellitus without complication, without long-term current use of insulin- Primary 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 stenosis Spinal stenosis of lumbar region Sacroiliitis Sacroiliitis, not elsewhere classified Generalized osteoarthritis of multiple sites Generalized osteoarthrosis, involving multiple sites 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, lumbosacral region Screening for prostate cancer Special screening for malignant neoplasm of prostate Gastroesophageal reflux disease without esophagitis Esophageal reflux Hypertension, essential, benign Essential hypertension, benign Mixed hyperlipidemia Permanent atrial fibrillation (Multi) Atrial fibrillation Low testosterone in male Chronic diastolic congestive heart failure Peripheral arterial occlusive disease Unspecified peripheral vascular disease Type 2 diabetes mellitus without complication, without long-term current use of insulin- Primary 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 stenosis Spinal stenosis of lumbar region Sacroiliitis Sacroiliitis, not elsewhere classified Generalized osteoarthritis of multiple sites Generalized osteoarthrosis, involving multiple sites 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, lumbosacral region Gastroesophageal reflux disease without esophagitis Esophageal reflux Hypertension, essential, benign Essential hypertension, benign Mixed hyperlipidemia Permanent atrial fibrillation (Multi) Atrial fibrillation Low testosterone in male Chronic diastolic congestive heart failure Elevated PSA measurement Peripheral arterial occlusive disease Unspecified peripheral vascular disease Sinus node dysfunction (Multi) Bronchitis- Primary Bronchitis, not specified as acute or chronic Type 2 diabetes mellitus without complication, without long-term current use of insulin Chronic diastolic congestive heart failure Permanent atrial fibrillation (Multi) Atrial fibrillation Gastroesophageal reflux disease without esophagitis Esophageal reflux Benign prostatic hyperplasia without lower urinary tract symptoms Chronic rhinitis Mixed hyperlipidemia Hyperthyroidism Thyrotoxicosis 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 or other cause, without mention of thyrotoxic crisis or storm Obstructive sleep apnea on CPAP Hypertension, essential, benign- Primary Essential hypertension, benign Permanent atrial fibrillation (Multi) Atrial fibrillation Heart failure with mildly reduced ejection fraction (HFmrEF) Type 2 diabetes mellitus without complication, without long-term current use of insulin Gastroesophageal reflux disease without esophagitis Esophageal reflux Other fatigue Esophageal perforation Perforation of esophagus Routine general medical examination at health care facility- Primary Routine general medical examination at a health care facility 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 stenosis Spinal stenosis of lumbar region Sacroiliitis Sacroiliitis, not elsewhere classified Generalized osteoarthritis of multiple sites Generalized osteoarthrosis, involving multiple sites 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, lumbosacral region Gastroesophageal reflux disease without esophagitis Esophageal reflux Hypertension, essential, benign Essential hypertension, benign Mixed hyperlipidemia Type 2 diabetes mellitus without complication, without long-term current use of insulin Permanent atrial fibrillation (Multi) Atrial fibrillation Low testosterone in male Chronic diastolic congestive heart failure Chronic idiopathic constipation Unspecified constipation Screening for prostate cancer Special screening for malignant neoplasm of prostate Chronotropic incompetence- Primary Other specified conduction disorder Orthostatic hypotension Type 2 diabetes mellitus without complication, without long-term current use of insulin Chronic diastolic congestive heart failure documented in this encounter [facility] Work Phone: Evaluation note* Diagnosis ALISHA on CPAP- Primary Type 2 diabetes mellitus without complication, 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 Chronic diastolic congestive heart failure Hypertension, essential, benign Essential hypertension, benign Peripheral arterial occlusive disease Unspecified peripheral vascular disease Permanent atrial fibrillation (Multi) Atrial fibrillation Sinus node dysfunction (Multi) Gastroesophageal reflux disease without esophagitis Esophageal reflux Benign prostatic hyperplasia without lower urinary tract symptoms Sacroiliitis Sacroiliitis, not elsewhere classified Screening for prostate cancer Special screening for malignant neoplasm of prostate Low testosterone in male Chronic rhinitis Mixed hyperlipidemia- Primary Gastroesophageal reflux disease without esophagitis Esophageal reflux Hypertension, essential, benign Essential hypertension, benign Permanent atrial fibrillation (Multi) Atrial fibrillation Benign prostatic hyperplasia without lower urinary tract symptoms Major depressive disorder, single episode, in partial remission Major depressive disorder, single episode, in partial or unspecified remission COVID-19 Type 2 diabetes mellitus without complication, without long-term current use of insulin- Primary Chronic diastolic congestive heart failure Mixed hyperlipidemia Hypertension, essential, benign Essential hypertension, benign Mild CAD Peripheral arterial occlusive disease Unspecified peripheral vascular disease Permanent atrial fibrillation (Multi) Atrial fibrillation Gastroesophageal reflux disease without esophagitis Esophageal reflux Benign prostatic hyperplasia without lower urinary tract symptoms Major depressive disorder, single episode, in partial remission Major depressive disorder, single episode, in partial or unspecified remission Sacroiliitis Sacroiliitis, not elsewhere classified ALISHA on CPAP Low testosterone Sinus node dysfunction (Multi) Low testosterone in male Dizziness- Primary Dizziness and giddiness Chronic fatigue Other malaise and fatigue Chronic diastolic congestive heart failure Hypertension, essential, benign Essential hypertension, benign Permanent atrial fibrillation (Multi) Atrial fibrillation Hypertension, essential, benign- Primary Essential hypertension, benign Dizziness Dizziness and giddiness Chronic fatigue Other malaise and fatigue Type 2 diabetes mellitus without complication, without long-term current use of insulin Low testosterone in male Skin tear of right elbow without complication, subsequent encounter- Primary Chronic diastolic congestive heart failure Type 2 diabetes mellitus without complication, without long-term current use of insulin Low testosterone in male ALISHA on CPAP Routine general medical examination at health care facility- Primary Routine general medical examination at a health care facility Chronic diastolic congestive heart failure Mixed hyperlipidemia Hypertension, essential, benign Essential hypertension, benign Mild CAD Peripheral arterial occlusive disease Unspecified peripheral vascular disease Permanent atrial fibrillation (Multi) Atrial fibrillation Type 2 diabetes mellitus without complication, without long-term current use of insulin Gastroesophageal reflux disease without esophagitis Esophageal reflux Benign prostatic hyperplasia without lower urinary tract symptoms Major depressive disorder, single episode, in partial remission Major depressive disorder, single episode, in partial or unspecified remission Sacroiliitis Sacroiliitis, not elsewhere classified ALISHA on CPAP Low testosterone 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 Spinal stenosis of lumbar region Generalized osteoarthritis of multiple sites Generalized osteoarthrosis, involving multiple sites 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, 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 Type 2 diabetes mellitus without complication, without long-term current use of insulin- Primary 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 stenosis Spinal stenosis of lumbar region Sacroiliitis Sacroiliitis, not elsewhere classified Generalized osteoarthritis of multiple sites Generalized osteoarthrosis, involving multiple sites 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, lumbosacral region Screening for prostate cancer Special screening for malignant neoplasm of prostate Gastroesophageal reflux disease without esophagitis Esophageal reflux Hypertension, essential, benign Essential hypertension, benign Mixed hyperlipidemia Permanent atrial fibrillation (Multi) Atrial fibrillation Low testosterone in male Chronic diastolic congestive heart failure Peripheral arterial occlusive disease Unspecified peripheral vascular disease Type 2 diabetes mellitus without complication, without long-term current use of insulin- Primary 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 stenosis Spinal stenosis of lumbar region Sacroiliitis Sacroiliitis, not elsewhere classified Generalized osteoarthritis of multiple sites Generalized osteoarthrosis, involving multiple sites 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, lumbosacral region Gastroesophageal reflux disease without esophagitis Esophageal reflux Hypertension, essential, benign Essential hypertension, benign Mixed hyperlipidemia Permanent atrial fibrillation (Multi) Atrial fibrillation Low testosterone in male Chronic diastolic congestive heart failure Elevated PSA measurement Peripheral arterial occlusive disease Unspecified peripheral vascular disease Sinus node dysfunction (Multi) Bronchitis- Primary Bronchitis, not specified as acute or chronic Type 2 diabetes mellitus without complication, without long-term current use of insulin Chronic diastolic congestive heart failure Permanent atrial fibrillation (Multi) Atrial fibrillation Gastroesophageal reflux disease without esophagitis Esophageal reflux Benign prostatic hyperplasia without lower urinary tract symptoms Chronic rhinitis Mixed hyperlipidemia Hyperthyroidism Thyrotoxicosis 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 or other cause, without mention of thyrotoxic crisis or storm Obstructive sleep apnea on CPAP Hypertension, essential, benign- Primary Essential hypertension, benign Permanent atrial fibrillation (Multi) Atrial fibrillation Heart failure with mildly reduced ejection fraction (HFmrEF) Type 2 diabetes mellitus without complication, without long-term current use of insulin Gastroesophageal reflux disease without esophagitis Esophageal reflux Other fatigue Esophageal perforation Perforation of esophagus Routine general medical examination at health care facility- Primary Routine general medical examination at a health care facility 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 stenosis Spinal stenosis of lumbar region Sacroiliitis Sacroiliitis, not elsewhere classified Generalized osteoarthritis of multiple sites Generalized osteoarthrosis, involving multiple sites 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, lumbosacral region Gastroesophageal reflux disease without esophagitis Esophageal reflux Hypertension, essential, benign Essential hypertension, benign Mixed hyperlipidemia Type 2 diabetes mellitus without complication, without long-term current use of insulin Permanent atrial fibrillation (Multi) Atrial fibrillation Low testosterone in male Chronic diastolic congestive heart failure Chronic idiopathic constipation Unspecified constipation Screening for prostate cancer Special screening for malignant neoplasm of prostate Chronotropic incompetence- Primary Other specified conduction disorder Orthostatic hypotension Type 2 diabetes mellitus without complication, without long-term current use of insulin Chronic diastolic congestive heart failure Subclavian vein stenosis- Primary Compression of vein Gastroesophageal reflux disease without esophagitis Esophageal reflux SSS (sick sinus syndrome) (Multi) Sinoatrial node dysfunction Persistent atrial fibrillation (Multi) Atrial fibrillation Permanent atrial fibrillation (Multi) Atrial fibrillation 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 ejection fraction (HFmrEF) Bradycardia Other specified cardiac dysrhythmias Shortness of breath on exertion Shortness of breath documented in this encounter [facility] Work Phone: Evaluation note* Diagnosis Pre-operative cardiovascular examination- Primary Lumbar stenosis with neurogenic claudication- Primary Spinal stenosis, lumbar region, with neurogenic claudication DDD (degenerative disc disease), lumbar Degeneration of lumbar or lumbosacral intervertebral disc Thyroid nodule- Primary Nontoxic uninodular goiter Abnormal thyroid function test Nonspecific abnormal results of thyroid function study [facility] ALISHA on CPAP- Primary Type 2 diabetes mellitus without complication, 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 Chronic diastolic congestive heart failure Hypertension, essential, benign Essential hypertension, benign Peripheral arterial occlusive disease Unspecified peripheral vascular disease Permanent atrial fibrillation (Multi) Atrial fibrillation Sinus node dysfunction (Multi) Gastroesophageal reflux disease without esophagitis Esophageal reflux Benign prostatic hyperplasia without lower urinary tract symptoms Sacroiliitis Sacroiliitis, not elsewhere classified Screening for prostate cancer Special screening for malignant neoplasm of prostate Low testosterone in male Chronic rhinitis Mixed hyperlipidemia- Primary Gastroesophageal reflux disease without esophagitis Esophageal reflux Hypertension, essential, benign Essential hypertension, benign Permanent atrial fibrillation (Multi) Atrial fibrillation Benign prostatic hyperplasia without lower urinary tract symptoms Major depressive disorder, single episode, in partial remission Major depressive disorder, single episode, in partial or unspecified remission COVID-19 Type 2 diabetes mellitus without complication, without long-term current use of insulin- Primary Chronic diastolic congestive heart failure Mixed hyperlipidemia Hypertension, essential, benign Essential hypertension, benign Mild CAD Peripheral arterial occlusive disease Unspecified peripheral vascular disease Permanent atrial fibrillation (Multi) Atrial fibrillation Gastroesophageal reflux disease without esophagitis Esophageal reflux Benign prostatic hyperplasia without lower urinary tract symptoms Major depressive disorder, single episode, in partial remission Major depressive disorder, single episode, in partial or unspecified remission Sacroiliitis Sacroiliitis, not elsewhere classified ALISHA on CPAP Low testosterone Sinus node dysfunction (Multi) Low testosterone in male Dizziness- Primary Dizziness and giddiness Chronic fatigue Other malaise and fatigue Chronic diastolic congestive heart failure Hypertension, essential, benign Essential hypertension, benign Permanent atrial fibrillation (Multi) Atrial fibrillation Hypertension, essential, benign- Primary Essential hypertension, benign Dizziness Dizziness and giddiness Chronic fatigue Other malaise and fatigue Type 2 diabetes mellitus without complication, without long-term current use of insulin Low testosterone in male Skin tear of right elbow without complication, subsequent encounter- Primary Chronic diastolic congestive heart failure Type 2 diabetes mellitus without complication, without long-term current use of insulin Low testosterone in male ALISHA on CPAP Routine general medical examination at health care facility- Primary Routine general medical examination at a health care facility Chronic diastolic congestive heart failure Mixed hyperlipidemia Hypertension, essential, benign Essential hypertension, benign Mild CAD Peripheral arterial occlusive disease Unspecified peripheral vascular disease Permanent atrial fibrillation (Multi) Atrial fibrillation Type 2 diabetes mellitus without complication, without long-term current use of insulin Gastroesophageal reflux disease without esophagitis Esophageal reflux Benign prostatic hyperplasia without lower urinary tract symptoms Major depressive disorder, single episode, in partial remission Major depressive disorder, single episode, in partial or unspecified remission Sacroiliitis Sacroiliitis, not elsewhere classified ALISHA on CPAP Low testosterone 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 Spinal stenosis of lumbar region Generalized osteoarthritis of multiple sites Generalized osteoarthrosis, involving multiple sites 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, 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 Type 2 diabetes mellitus without complication, without long-term current use of insulin- Primary 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 stenosis Spinal stenosis of lumbar region Sacroiliitis Sacroiliitis, not elsewhere classified Generalized osteoarthritis of multiple sites Generalized osteoarthrosis, involving multiple sites 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, lumbosacral region Screening for prostate cancer Special screening for malignant neoplasm of prostate Gastroesophageal reflux disease without esophagitis Esophageal reflux Hypertension, essential, benign Essential hypertension, benign Mixed hyperlipidemia Permanent atrial fibrillation (Multi) Atrial fibrillation Low testosterone in male Chronic diastolic congestive heart failure Peripheral arterial occlusive disease Unspecified peripheral vascular disease Type 2 diabetes mellitus without complication, without long-term current use of insulin- Primary 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 stenosis Spinal stenosis of lumbar region Sacroiliitis Sacroiliitis, not elsewhere classified Generalized osteoarthritis of multiple sites Generalized osteoarthrosis, involving multiple sites 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, lumbosacral region Gastroesophageal reflux disease without esophagitis Esophageal reflux Hypertension, essential, benign Essential hypertension, benign Mixed hyperlipidemia Permanent atrial fibrillation (Multi) Atrial fibrillation Low testosterone in male Chronic diastolic congestive heart failure Elevated PSA measurement Peripheral arterial occlusive disease Unspecified peripheral vascular disease Sinus node dysfunction (Multi) Bronchitis- Primary Bronchitis, not specified as acute or chronic Type 2 diabetes mellitus without complication, without long-term current use of insulin Chronic diastolic congestive heart failure Permanent atrial fibrillation (Multi) Atrial fibrillation Gastroesophageal reflux disease without esophagitis Esophageal reflux Benign prostatic hyperplasia without lower urinary tract symptoms Chronic rhinitis Mixed hyperlipidemia Hyperthyroidism Thyrotoxicosis 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 or other cause, without mention of thyrotoxic crisis or storm Obstructive sleep apnea on CPAP Hypertension, essential, benign- Primary Essential hypertension, benign Permanent atrial fibrillation (Multi) Atrial fibrillation Heart failure with mildly reduced ejection fraction (HFmrEF) Type 2 diabetes mellitus without complication, without long-term current use of insulin Gastroesophageal reflux disease without esophagitis Esophageal reflux Other fatigue Esophageal perforation Perforation of esophagus Routine general medical examination at health care facility- Primary Routine general medical examination at a health care facility 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 stenosis Spinal stenosis of lumbar region Sacroiliitis Sacroiliitis, not elsewhere classified Generalized osteoarthritis of multiple sites Generalized osteoarthrosis, involving multiple sites 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, lumbosacral region Gastroesophageal reflux disease without esophagitis Esophageal reflux Hypertension, essential, benign Essential hypertension, benign Mixed hyperlipidemia Type 2 diabetes mellitus without complication, without long-term current use of insulin Permanent atrial fibrillation (Multi) Atrial fibrillation Low testosterone in male Chronic diastolic congestive heart failure Chronic idiopathic constipation Unspecified constipation Screening for prostate cancer Special screening for malignant neoplasm of prostate Chronotropic incompetence- Primary Other specified conduction disorder Orthostatic hypotension Type 2 diabetes mellitus without complication, without long-term current use of insulin Chronic diastolic congestive heart failure Type 2 diabetes mellitus without complication, without long-term current use of insulin- Primary Orthostatic hypotension 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 Chronic diastolic congestive heart failure Obstructive sleep apnea on CPAP Benign prostatic hyperplasia without lower urinary tract symptoms Hypertension, essential, benign Essential hypertension, benign Mixed hyperlipidemia Permanent atrial fibrillation (Multi) Atrial fibrillation Screening for prostate cancer Special screening for malignant neoplasm of prostate documented in this encounter [facility] Work Phone: Evaluation note* Diagnosis ALISHA on CPAP- Primary Type 2 diabetes mellitus without complication, 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 Chronic diastolic congestive heart failure Hypertension, essential, benign Essential hypertension, benign Peripheral arterial occlusive disease Unspecified peripheral vascular disease Permanent atrial fibrillation (Multi) Atrial fibrillation Sinus node dysfunction (Multi) Gastroesophageal reflux disease without esophagitis Esophageal reflux Benign prostatic hyperplasia without lower urinary tract symptoms Sacroiliitis Sacroiliitis, not elsewhere classified Screening for prostate cancer Special screening for malignant neoplasm of prostate Low testosterone in male Chronic rhinitis Mixed hyperlipidemia- Primary Gastroesophageal reflux disease without esophagitis Esophageal reflux Hypertension, essential, benign Essential hypertension, benign Permanent atrial fibrillation (Multi) Atrial fibrillation Benign prostatic hyperplasia without lower urinary tract symptoms Major depressive disorder, single episode, in partial remission Major depressive disorder, single episode, in partial or unspecified remission COVID-19 Type 2 diabetes mellitus without complication, without long-term current use of insulin- Primary Chronic diastolic congestive heart failure Mixed hyperlipidemia Hypertension, essential, benign Essential hypertension, benign Mild CAD Peripheral arterial occlusive disease Unspecified peripheral vascular disease Permanent atrial fibrillation (Multi) Atrial fibrillation Gastroesophageal reflux disease without esophagitis Esophageal reflux Benign prostatic hyperplasia without lower urinary tract symptoms Major depressive disorder, single episode, in partial remission Major depressive disorder, single episode, in partial or unspecified remission Sacroiliitis Sacroiliitis, not elsewhere classified ALISHA on CPAP Low testosterone Sinus node dysfunction (Multi) Low testosterone in male Dizziness- Primary Dizziness and giddiness Chronic fatigue Other malaise and fatigue Chronic diastolic congestive heart failure Hypertension, essential, benign Essential hypertension, benign Permanent atrial fibrillation (Multi) Atrial fibrillation Hypertension, essential, benign- Primary Essential hypertension, benign Dizziness Dizziness and giddiness Chronic fatigue Other malaise and fatigue Type 2 diabetes mellitus without complication, without long-term current use of insulin Low testosterone in male Skin tear of right elbow without complication, subsequent encounter- Primary Chronic diastolic congestive heart failure Type 2 diabetes mellitus without complication, without long-term current use of insulin Low testosterone in male ALISHA on CPAP Routine general medical examination at health care facility- Primary Routine general medical examination at a health care facility Chronic diastolic congestive heart failure Mixed hyperlipidemia Hypertension, essential, benign Essential hypertension, benign Mild CAD Peripheral arterial occlusive disease Unspecified peripheral vascular disease Permanent atrial fibrillation (Multi) Atrial fibrillation Type 2 diabetes mellitus without complication, without long-term current use of insulin Gastroesophageal reflux disease without esophagitis Esophageal reflux Benign prostatic hyperplasia without lower urinary tract symptoms Major depressive disorder, single episode, in partial remission Major depressive disorder, single episode, in partial or unspecified remission Sacroiliitis Sacroiliitis, not elsewhere classified ALISHA on CPAP Low testosterone 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 Spinal stenosis of lumbar region Generalized osteoarthritis of multiple sites Generalized osteoarthrosis, involving multiple sites 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, 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 Type 2 diabetes mellitus without complication, without long-term current use of insulin- Primary 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 stenosis Spinal stenosis of lumbar region Sacroiliitis Sacroiliitis, not elsewhere classified Generalized osteoarthritis of multiple sites Generalized osteoarthrosis, involving multiple sites 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, lumbosacral region Screening for prostate cancer Special screening for malignant neoplasm of prostate Gastroesophageal reflux disease without esophagitis Esophageal reflux Hypertension, essential, benign Essential hypertension, benign Mixed hyperlipidemia Permanent atrial fibrillation (Multi) Atrial fibrillation Low testosterone in male Chronic diastolic congestive heart failure Peripheral arterial occlusive disease Unspecified peripheral vascular disease Type 2 diabetes mellitus without complication, without long-term current use of insulin- Primary 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 stenosis Spinal stenosis of lumbar region Sacroiliitis Sacroiliitis, not elsewhere classified Generalized osteoarthritis of multiple sites Generalized osteoarthrosis, involving multiple sites 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, lumbosacral region Gastroesophageal reflux disease without esophagitis Esophageal reflux Hypertension, essential, benign Essential hypertension, benign Mixed hyperlipidemia Permanent atrial fibrillation (Multi) Atrial fibrillation Low testosterone in male Chronic diastolic congestive heart failure Elevated PSA measurement Peripheral arterial occlusive disease Unspecified peripheral vascular disease Sinus node dysfunction (Multi) Bronchitis- Primary Bronchitis, not specified as acute or chronic Type 2 diabetes mellitus without complication, without long-term current use of insulin Chronic diastolic congestive heart failure Permanent atrial fibrillation (Multi) Atrial fibrillation Gastroesophageal reflux disease without esophagitis Esophageal reflux Benign prostatic hyperplasia without lower urinary tract symptoms Chronic rhinitis Mixed hyperlipidemia Hyperthyroidism Thyrotoxicosis 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 or other cause, without mention of thyrotoxic crisis or storm Obstructive sleep apnea on CPAP Hypertension, essential, benign- Primary Essential hypertension, benign Permanent atrial fibrillation (Multi) Atrial fibrillation Heart failure with mildly reduced ejection fraction (HFmrEF) Type 2 diabetes mellitus without complication, without long-term current use of insulin Gastroesophageal reflux disease without esophagitis Esophageal reflux Other fatigue Esophageal perforation Perforation of esophagus Routine general medical examination at health care facility- Primary Routine general medical examination at a health care facility 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 stenosis Spinal stenosis of lumbar region Sacroiliitis Sacroiliitis, not elsewhere classified Generalized osteoarthritis of multiple sites Generalized osteoarthrosis, involving multiple sites 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, lumbosacral region Gastroesophageal reflux disease without esophagitis Esophageal reflux Hypertension, essential, benign Essential hypertension, benign Mixed hyperlipidemia Type 2 diabetes mellitus without complication, without long-term current use of insulin Permanent atrial fibrillation (Multi) Atrial fibrillation Low testosterone in male Chronic diastolic congestive heart failure Chronic idiopathic constipation Unspecified constipation Screening for prostate cancer Special screening for malignant neoplasm of prostate Chronotropic incompetence- Primary Other specified conduction disorder Orthostatic hypotension Type 2 diabetes mellitus without complication, without long-term current use of insulin Chronic diastolic congestive heart failure Type 2 diabetes mellitus without complication, without long-term current use of insulin- Primary Orthostatic hypotension 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 Chronic diastolic congestive heart failure Obstructive sleep apnea on CPAP Benign prostatic hyperplasia without lower urinary tract symptoms Hypertension, essential, benign Essential hypertension, benign Mixed hyperlipidemia Permanent atrial fibrillation (Multi) Atrial fibrillation Screening for prostate cancer Special screening for malignant neoplasm of prostate SSS (sick sinus syndrome) (Multi) Sinoatrial node dysfunction Shortness of breath on exertion Shortness of breath documented in this encounter [facility] Work Phone: Evaluation note* Diagnosis Pre-operative cardiovascular examination- Primary Lumbar stenosis with neurogenic claudication- Primary Spinal stenosis, lumbar region, with neurogenic claudication DDD (degenerative disc disease), lumbar Degeneration of lumbar or lumbosacral intervertebral disc Onychomycosis- Primary Dermatophytosis of nail Peripheral vascular disease, unspecified [facility] Diagnosis Onset Date Resolution Status Admit Date Dysphagia acute March 9:17am Hoarseness of voice acute Septe mb 2024 9:17am [facility] Work Phone: Evaluation note* Diagnosis ALISHA on CPAP- Primary Type 2 diabetes mellitus without complication, 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 Chronic diastolic congestive heart failure (Multi) Hypertension, essential, benign Essential hypertension, benign Peripheral arterial occlusive disease Unspecified peripheral vascular disease Permanent atrial fibrillation (Multi) Atrial fibrillation Sinus node dysfunction (Multi) Gastroesophageal reflux disease without esophagitis Esophageal reflux Benign prostatic hyperplasia without lower urinary tract symptoms Sacroiliitis Sacroiliitis, not elsewhere classified Screening for prostate cancer Special screening for malignant neoplasm of prostate Low testosterone in male Chronic rhinitis Mixed hyperlipidemia- Primary Gastroesophageal reflux disease without esophagitis Esophageal reflux Hypertension, essential, benign Essential hypertension, benign Permanent atrial fibrillation (Multi) Atrial fibrillation Benign prostatic hyperplasia without lower urinary tract symptoms Major depressive disorder, single episode, in partial remission Major depressive disorder, single episode, in partial or unspecified remission COVID-19 Type 2 diabetes mellitus without complication, without long-term current use of insulin (Multi)- Primary Chronic diastolic congestive heart failure (Multi) Mixed hyperlipidemia Hypertension, essential, benign Essential hypertension, benign Mild CAD Peripheral arterial occlusive disease Unspecified peripheral vascular disease Permanent atrial fibrillation (Multi) Atrial fibrillation Gastroesophageal reflux disease without esophagitis Esophageal reflux Benign prostatic hyperplasia without lower urinary tract symptoms Major depressive disorder, single episode, in partial remission Major depressive disorder, single episode, in partial or unspecified remission Sacroiliitis Sacroiliitis, not elsewhere classified ALISHA on CPAP Low testosterone Sinus node dysfunction (Multi) Low testosterone in male Dizziness- Primary Dizziness and giddiness Chronic fatigue Other malaise and fatigue Chronic diastolic congestive heart failure (Multi) Hypertension, essential, benign Essential hypertension, benign Permanent atrial fibrillation (Multi) Atrial fibrillation Hypertension, essential, benign- Primary Essential hypertension, benign Dizziness Dizziness and giddiness Chronic fatigue Other malaise and fatigue Type 2 diabetes mellitus without complication, without long-term current use of insulin (Multi) Low testosterone in male Skin tear of right elbow without complication, subsequent encounter- Primary Chronic diastolic congestive heart failure (Multi) Type 2 diabetes mellitus without complication, without long-term current use of insulin (Multi) Low testosterone in male ALISHA on CPAP Routine general medical examination at health care facility- Primary Routine general medical examination at a health care facility Chronic diastolic congestive heart failure (Multi) Mixed hyperlipidemia Hypertension, essential, benign Essential hypertension, benign Mild CAD Peripheral arterial occlusive disease Unspecified peripheral vascular disease Permanent atrial fibrillation (Multi) Atrial fibrillation Type 2 diabetes mellitus without complication, without long-term current use of insulin (Multi) Gastroesophageal reflux disease without esophagitis Esophageal reflux Benign prostatic hyperplasia without lower urinary tract symptoms Major depressive disorder, single episode, in partial remission Major depressive disorder, single episode, in partial or unspecified remission Sacroiliitis Sacroiliitis, not elsewhere classified ALISHA on CPAP Low testosterone 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 Spinal stenosis of lumbar region Generalized osteoarthritis of multiple sites Generalized osteoarthrosis, involving multiple sites 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, 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 Type 2 diabetes mellitus without complication, without long-term current use of insulin (Multi)- Primary 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 stenosis Spinal stenosis of lumbar region Sacroiliitis Sacroiliitis, not elsewhere classified Generalized osteoarthritis of multiple sites Generalized osteoarthrosis, involving multiple sites 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, lumbosacral region Screening for prostate cancer Special screening for malignant neoplasm of prostate Gastroesophageal reflux disease without esophagitis Esophageal reflux Hypertension, essential, benign Essential hypertension, benign Mixed hyperlipidemia Permanent atrial fibrillation (Multi) Atrial fibrillation Low testosterone in male Chronic diastolic congestive heart failure (Multi) Peripheral arterial occlusive disease Unspecified peripheral vascular disease Lumbar radiculopathy Thoracic or lumbosacral neuritis or radiculitis, unspecified Type 2 diabetes mellitus without complication, without long-term current use of insulin (Multi)- Primary 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 stenosis Spinal stenosis of lumbar region Sacroiliitis Sacroiliitis, not elsewhere classified Generalized osteoarthritis of multiple sites Generalized osteoarthrosis, involving multiple sites 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, lumbosacral region Gastroesophageal reflux disease without esophagitis Esophageal reflux Hypertension, essential, benign Essential hypertension, benign Mixed hyperlipidemia Permanent atrial fibrillation (Multi) Atrial fibrillation Low testosterone in male Chronic diastolic congestive heart failure (Multi) Elevated PSA measurement Peripheral arterial occlusive disease Unspecified peripheral vascular disease Sinus node dysfunction (Multi) Bronchitis- Primary Bronchitis, not specified as acute or chronic Type 2 diabetes mellitus without complication, without long-term current use of insulin (Multi) Chronic diastolic congestive heart failure (Multi) Permanent atrial fibrillation (Multi) Atrial fibrillation Gastroesophageal reflux disease without esophagitis Esophageal reflux Benign prostatic hyperplasia without lower urinary tract symptoms Chronic rhinitis Mixed hyperlipidemia Hyperthyroidism Thyrotoxicosis 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 or other cause, without mention of thyrotoxic crisis or storm Obstructive sleep apnea on CPAP Hypertension, essential, benign- Primary Essential hypertension, benign Permanent atrial fibrillation (Multi) Atrial fibrillation Heart failure with mildly reduced ejection fraction (HFmrEF) (Multi) Type 2 diabetes mellitus without complication, without long-term current use of insulin (Multi) Gastroesophageal reflux disease without esophagitis Esophageal reflux Other fatigue Esophageal perforation Perforation of esophagus Routine general medical examination at health care facility- Primary Routine general medical examination at a health care facility 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 stenosis Spinal stenosis of lumbar region Sacroiliitis Sacroiliitis, not elsewhere classified Generalized osteoarthritis of multiple sites Generalized osteoarthrosis, involving multiple sites 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, lumbosacral region Gastroesophageal reflux disease without esophagitis Esophageal reflux Hypertension, essential, benign Essential hypertension, benign Mixed hyperlipidemia Type 2 diabetes mellitus without complication, without long-term current use of insulin (Multi) Permanent atrial fibrillation (Multi) Atrial fibrillation Low testosterone in male Chronic diastolic congestive heart failure (Multi) Chronic idiopathic constipation Unspecified constipation Screening for prostate cancer Special screening for malignant neoplasm of prostate Chronotropic incompetence- Primary Other specified conduction disorder Orthostatic hypotension Type 2 diabetes mellitus without complication, without long-term current use of insulin (Multi) Chronic diastolic congestive heart failure (Multi) Type 2 diabetes mellitus without complication, without long-term current use of insulin (Multi)- Primary Orthostatic hypotension 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 Chronic diastolic congestive heart failure (Multi) Obstructive sleep apnea on CPAP Benign prostatic hyperplasia without lower urinary tract symptoms Hypertension, essential, benign Essential hypertension, benign Mixed hyperlipidemia Permanent atrial fibrillation (Multi) Atrial fibrillation Screening for prostate cancer Special screening for malignant neoplasm of prostate documented in this encounter [facility] Work Phone: Evaluation note* Diagnosis ALISHA on CPAP- Primary 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 2 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 mellitus without complication, 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 Chronic diastolic congestive heart failure (Multi) Hypertension, essential, benign Essential hypertension, benign Peripheral arterial occlusive disease Unspecified peripheral vascular disease Permanent atrial fibrillation (Multi) Atrial fibrillation Sinus node dysfunction (Multi) Gastroesophageal reflux disease without esophagitis Esophageal reflux Benign prostatic hyperplasia without lower urinary tract symptoms Sacroiliitis Sacroiliitis, not elsewhere classified Screening for prostate cancer Special screening for malignant neoplasm of prostate Low testosterone in male Chronic rhinitis Mixed hyperlipidemia- Primary Gastroesophageal reflux disease without esophagitis Esophageal reflux Hypertension, essential, benign Essential hypertension, benign Permanent atrial fibrillation (Multi) Atrial fibrillation Benign prostatic hyperplasia without lower urinary tract symptoms Major depressive disorder, single episode, in partial remission Major depressive disorder, single episode, in partial or unspecified remission COVID-19 Type 2 diabetes mellitus without complication, without long-term current use of insulin (Multi)- Primary Chronic diastolic congestive heart failure (Multi) Mixed hyperlipidemia Hypertension, essential, benign Essential hypertension, benign Mild CAD Peripheral arterial occlusive disease Unspecified peripheral vascular disease Permanent atrial fibrillation (Multi) Atrial fibrillation Gastroesophageal reflux disease without esophagitis Esophageal reflux Benign prostatic hyperplasia without lower urinary tract symptoms Major depressive disorder, single episode, in partial remission Major depressive disorder, single episode, in partial or unspecified remission Sacroiliitis Sacroiliitis, not elsewhere classified ALISHA on CPAP Low testosterone Sinus node dysfunction (Multi) Low testosterone in male Dizziness- Primary Dizziness and giddiness Chronic fatigue Other malaise and fatigue Chronic diastolic congestive heart failure (Multi) Hypertension, essential, benign Essential hypertension, benign Permanent atrial fibrillation (Multi) Atrial fibrillation Hypertension, essential, benign- Primary Essential hypertension, benign Dizziness Dizziness and giddiness Chronic fatigue Other malaise and fatigue Type 2 diabetes mellitus without complication, without long-term current use of insulin (Multi) Low testosterone in male Skin tear of right elbow without complication, subsequent encounter- Primary Chronic diastolic congestive heart failure (Multi) Type 2 diabetes mellitus without complication, without long-term current use of insulin (Multi) Low testosterone in male ALISHA on CPAP Routine general medical examination at health care facility- Primary Routine general medical examination at a health care facility Chronic diastolic congestive heart failure (Multi) Mixed hyperlipidemia Hypertension, essential, benign Essential hypertension, benign Mild CAD Peripheral arterial occlusive disease Unspecified peripheral vascular disease Permanent atrial fibrillation (Multi) Atrial fibrillation Type 2 diabetes mellitus without complication, without long-term current use of insulin (Multi) Gastroesophageal reflux disease without esophagitis Esophageal reflux Benign prostatic hyperplasia without lower urinary tract symptoms Major depressive disorder, single episode, in partial remission Major depressive disorder, single episode, in partial or unspecified remission Sacroiliitis Sacroiliitis, not elsewhere classified ALISHA on CPAP Low testosterone 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 Spinal stenosis of lumbar region Generalized osteoarthritis of multiple sites Generalized osteoarthrosis, involving multiple sites 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, 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 Type 2 diabetes mellitus without complication, without long-term current use of insulin (Multi)- Primary Neurogenic claudication due to lumbar spinal stenosis Spinal stenosis of lumbar region Sacroiliitis Sacroiliitis, not elsewhere classified Generalized osteoarthritis of multiple sites Generalized osteoarthrosis, involving multiple sites 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, lumbosacral region Screening for prostate cancer Special screening for malignant neoplasm of prostate Gastroesophageal reflux disease without esophagitis Esophageal reflux Hypertension, essential, benign Essential hypertension, benign Mixed hyperlipidemia Permanent atrial fibrillation (Multi) Atrial fibrillation Low testosterone in male Chronic diastolic congestive heart failure (Multi) Peripheral arterial occlusive disease Unspecified peripheral vascular disease Type 2 diabetes mellitus without complication, without long-term current use of insulin (Multi)- Primary Neurogenic claudication due to lumbar spinal stenosis Spinal stenosis of lumbar region Sacroiliitis Sacroiliitis, not elsewhere classified Generalized osteoarthritis of multiple sites Generalized osteoarthrosis, involving multiple sites 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, lumbosacral region Gastroesophageal reflux disease without esophagitis Esophageal reflux Hypertension, essential, benign Essential hypertension, benign Mixed hyperlipidemia Permanent atrial fibrillation (Multi) Atrial fibrillation Low testosterone in male Chronic diastolic congestive heart failure (Multi) Elevated PSA measurement Peripheral arterial occlusive disease Unspecified peripheral vascular disease Sinus node dysfunction (Multi) Lumbar radiculopathy Thoracic or lumbosacral neuritis or radiculitis, unspecified Bronchitis- Primary Bronchitis, not specified as acute or chronic Type 2 diabetes mellitus without complication, without long-term current use of insulin (Multi) Chronic diastolic congestive heart failure (Multi) Permanent atrial fibrillation (Multi) Atrial fibrillation Gastroesophageal reflux disease without esophagitis Esophageal reflux Benign prostatic hyperplasia without lower urinary tract symptoms Chronic rhinitis Mixed hyperlipidemia Hyperthyroidism Thyrotoxicosis 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 or other cause, without mention of thyrotoxic crisis or storm Obstructive sleep apnea on CPAP Hypertension, essential, benign- Primary Essential hypertension, benign Permanent atrial fibrillation (Multi) Atrial fibrillation Heart failure with mildly reduced ejection fraction (HFmrEF) (Multi) Type 2 diabetes mellitus without complication, without long-term current use of insulin (Multi) Gastroesophageal reflux disease without esophagitis Esophageal reflux Other fatigue Esophageal perforation Perforation of esophagus Routine general medical examination at health care facility- Primary Routine general medical examination at a health care facility 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 stenosis Spinal stenosis of lumbar region Sacroiliitis Sacroiliitis, not elsewhere classified Generalized osteoarthritis of multiple sites Generalized osteoarthrosis, involving multiple sites 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, lumbosacral region Gastroesophageal reflux disease without esophagitis Esophageal reflux Hypertension, essential, benign Essential hypertension, benign Mixed hyperlipidemia Type 2 diabetes mellitus without complication, without long-term current use of insulin (Multi) Permanent atrial fibrillation (Multi) Atrial fibrillation Low testosterone in male Chronic diastolic congestive heart failure (Multi) Chronic idiopathic constipation Unspecified constipation Screening for prostate cancer Special screening for malignant neoplasm of prostate Chronotropic incompetence- Primary Other specified conduction disorder Orthostatic hypotension Type 2 diabetes mellitus without complication, without long-term current use of insulin (Multi) Chronic diastolic congestive heart failure (Multi) Type 2 diabetes mellitus without complication, without long-term current use of insulin (Multi)- Primary Orthostatic hypotension 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 Chronic diastolic congestive heart failure (Multi) Obstructive sleep apnea on CPAP Benign prostatic hyperplasia without lower urinary tract symptoms Hypertension, essential, benign Essential hypertension, benign Mixed hyperlipidemia Permanent atrial fibrillation (Multi) Atrial fibrillation Screening for prostate cancer Special screening for malignant neoplasm of prostate documented in this encounter [facility] Work Phone: Evaluation note* Diagnosis ALISHA on CPAP- Primary Type 2 diabetes mellitus without complication, 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 Chronic diastolic congestive heart failure (Multi) Hypertension, essential, benign Essential hypertension, benign Peripheral arterial occlusive disease Unspecified peripheral vascular disease Permanent atrial fibrillation (Multi) Atrial fibrillation Sinus node dysfunction (Multi) Gastroesophageal reflux disease without esophagitis Esophageal reflux Benign prostatic hyperplasia without lower urinary tract symptoms Sacroiliitis Sacroiliitis, not elsewhere classified Screening for prostate cancer Special screening for malignant neoplasm of prostate Low testosterone in male Chronic rhinitis Mixed hyperlipidemia- Primary Gastroesophageal reflux disease without esophagitis Esophageal reflux Hypertension, essential, benign Essential hypertension, benign Permanent atrial fibrillation (Multi) Atrial fibrillation Benign prostatic hyperplasia without lower urinary tract symptoms Major depressive disorder, single episode, in partial remission Major depressive disorder, single episode, in partial or unspecified remission COVID-19 Type 2 diabetes mellitus without complication, without long-term current use of insulin (Multi)- Primary Chronic diastolic congestive heart failure (Multi) Mixed hyperlipidemia Hypertension, essential, benign Essential hypertension, benign Mild CAD Peripheral arterial occlusive disease Unspecified peripheral vascular disease Permanent atrial fibrillation (Multi) Atrial fibrillation Gastroesophageal reflux disease without esophagitis Esophageal reflux Benign prostatic hyperplasia without lower urinary tract symptoms Major depressive disorder, single episode, in partial remission Major depressive disorder, single episode, in partial or unspecified remission Sacroiliitis Sacroiliitis, not elsewhere classified ALISHA on CPAP Low testosterone Sinus node dysfunction (Multi) Low testosterone in male Dizziness- Primary Dizziness and giddiness Chronic fatigue Other malaise and fatigue Chronic diastolic congestive heart failure (Multi) Hypertension, essential, benign Essential hypertension, benign Permanent atrial fibrillation (Multi) Atrial fibrillation Hypertension, essential, benign- Primary Essential hypertension, benign Dizziness Dizziness and giddiness Chronic fatigue Other malaise and fatigue Type 2 diabetes mellitus without complication, without long-term current use of insulin (Multi) Low testosterone in male Skin tear of right elbow without complication, subsequent encounter- Primary Chronic diastolic congestive heart failure (Multi) Type 2 diabetes mellitus without complication, without long-term current use of insulin (Multi) Low testosterone in male ALISHA on CPAP Routine general medical examination at health care facility- Primary Routine general medical examination at a health care facility Chronic diastolic congestive heart failure (Multi) Mixed hyperlipidemia Hypertension, essential, benign Essential hypertension, benign Mild CAD Peripheral arterial occlusive disease Unspecified peripheral vascular disease Permanent atrial fibrillation (Multi) Atrial fibrillation Type 2 diabetes mellitus without complication, without long-term current use of insulin (Multi) Gastroesophageal reflux disease without esophagitis Esophageal reflux Benign prostatic hyperplasia without lower urinary tract symptoms Major depressive disorder, single episode, in partial remission Major depressive disorder, single episode, in partial or unspecified remission Sacroiliitis Sacroiliitis, not elsewhere classified ALISHA on CPAP Low testosterone 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 Spinal stenosis of lumbar region Generalized osteoarthritis of multiple sites Generalized osteoarthrosis, involving multiple sites 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, 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 Type 2 diabetes mellitus without complication, without long-term current use of insulin (Multi)- Primary Neurogenic claudication due to lumbar spinal stenosis Spinal stenosis of lumbar region Sacroiliitis Sacroiliitis, not elsewhere classified Generalized osteoarthritis of multiple sites Generalized osteoarthrosis, involving multiple sites 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, lumbosacral region Screening for prostate cancer Special screening for malignant neoplasm of prostate Gastroesophageal reflux disease without esophagitis Esophageal reflux Hypertension, essential, benign Essential hypertension, benign Mixed hyperlipidemia Permanent atrial fibrillation (Multi) Atrial fibrillation Low testosterone in male Chronic diastolic congestive heart failure (Multi) Peripheral arterial occlusive disease Unspecified peripheral vascular disease Type 2 diabetes mellitus without complication, without long-term current use of insulin (Multi)- Primary Neurogenic claudication due to lumbar spinal stenosis Spinal stenosis of lumbar region Sacroiliitis Sacroiliitis, not elsewhere classified Generalized osteoarthritis of multiple sites Generalized osteoarthrosis, involving multiple sites 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, lumbosacral region Gastroesophageal reflux disease without esophagitis Esophageal reflux Hypertension, essential, benign Essential hypertension, benign Mixed hyperlipidemia Permanent atrial fibrillation (Multi) Atrial fibrillation Low testosterone in male Chronic diastolic congestive heart failure (Multi) Elevated PSA measurement Peripheral arterial occlusive disease Unspecified peripheral vascular disease Sinus node dysfunction (Multi) Bronchitis- Primary Bronchitis, not specified as acute or chronic Type 2 diabetes mellitus without complication, without long-term current use of insulin (Multi) Chronic diastolic congestive heart failure (Multi) Permanent atrial fibrillation (Multi) Atrial fibrillation Gastroesophageal reflux disease without esophagitis Esophageal reflux Benign prostatic hyperplasia without lower urinary tract symptoms Chronic rhinitis Mixed hyperlipidemia Hyperthyroidism Thyrotoxicosis 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 or other cause, without mention of thyrotoxic crisis or storm Obstructive sleep apnea on CPAP Lumbar radiculopathy Thoracic or lumbosacral neuritis or radiculitis, unspecified Hypertension, essential, benign- Primary Essential hypertension, benign Permanent atrial fibrillation (Multi) Atrial fibrillation Heart failure with mildly reduced ejection fraction (HFmrEF) (Multi) Type 2 diabetes mellitus without complication, without long-term current use of insulin (Multi) Gastroesophageal reflux disease without esophagitis Esophageal reflux Other fatigue Esophageal perforation Perforation of esophagus Routine general medical examination at health care facility- Primary Routine general medical examination at a health care facility Neurogenic claudication due to lumbar spinal stenosis Spinal stenosis of lumbar region Sacroiliitis Sacroiliitis, not elsewhere classified Generalized osteoarthritis of multiple sites Generalized osteoarthrosis, involving multiple sites 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, lumbosacral region Gastroesophageal reflux disease without esophagitis Esophageal reflux Hypertension, essential, benign Essential hypertension, benign Mixed hyperlipidemia Type 2 diabetes mellitus without complication, without long-term current use of insulin (Multi) Permanent atrial fibrillation (Multi) Atrial fibrillation Low testosterone in male Chronic diastolic congestive heart failure (Multi) Chronic idiopathic constipation Unspecified constipation Screening for prostate cancer Special screening for malignant neoplasm of prostate Chronotropic incompetence- Primary Other specified conduction disorder Orthostatic hypotension Type 2 diabetes mellitus without complication, without long-term current use of insulin (Multi) Chronic diastolic congestive heart failure (Multi) Type 2 diabetes mellitus without complication, without long-term current use of insulin (Multi)- Primary Orthostatic hypotension 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 Chronic diastolic congestive heart failure (Multi) Obstructive sleep apnea on CPAP Benign prostatic hyperplasia without lower urinary tract symptoms Hypertension, essential, benign Essential hypertension, benign Mixed hyperlipidemia Permanent atrial fibrillation (Multi) Atrial fibrillation Screening for prostate cancer Special screening for malignant neoplasm of prostate documented in this encounter [facility] Work Phone: Evaluation note* Diagnosis ALISHA on CPAP- Primary Type 2 diabetes mellitus without complication, 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 Chronic diastolic congestive heart failure (Multi) Hypertension, essential, benign Essential hypertension, benign Peripheral arterial occlusive disease Unspecified peripheral vascular disease Permanent atrial fibrillation (Multi) Atrial fibrillation Sinus node dysfunction (Multi) Gastroesophageal reflux disease without esophagitis Esophageal reflux Benign prostatic hyperplasia without lower urinary tract symptoms Sacroiliitis Sacroiliitis, not elsewhere classified Screening for prostate cancer Special screening for malignant neoplasm of prostate Low testosterone in male Chronic rhinitis Mixed hyperlipidemia- Primary Gastroesophageal reflux disease without esophagitis Esophageal reflux Hypertension, essential, benign Essential hypertension, benign Permanent atrial fibrillation (Multi) Atrial fibrillation Benign prostatic hyperplasia without lower urinary tract symptoms Major depressive disorder, single episode, in partial remission Major depressive disorder, single episode, in partial or unspecified remission COVID-19 Type 2 diabetes mellitus without complication, without long-term current use of insulin (Multi)- Primary Chronic diastolic congestive heart failure (Multi) Mixed hyperlipidemia Hypertension, essential, benign Essential hypertension, benign Mild CAD Peripheral arterial occlusive disease Unspecified peripheral vascular disease Permanent atrial fibrillation (Multi) Atrial fibrillation Gastroesophageal reflux disease without esophagitis Esophageal reflux Benign prostatic hyperplasia without lower urinary tract symptoms Major depressive disorder, single episode, in partial remission Major depressive disorder, single episode, in partial or unspecified remission Sacroiliitis Sacroiliitis, not elsewhere classified ALISHA on CPAP Low testosterone Sinus node dysfunction (Multi) Low testosterone in male Dizziness- Primary Dizziness and giddiness Chronic fatigue Other malaise and fatigue Chronic diastolic congestive heart failure (Multi) Hypertension, essential, benign Essential hypertension, benign Permanent atrial fibrillation (Multi) Atrial fibrillation Hypertension, essential, benign- Primary Essential hypertension, benign Dizziness Dizziness and giddiness Chronic fatigue Other malaise and fatigue Type 2 diabetes mellitus without complication, without long-term current use of insulin (Multi) Low testosterone in male Skin tear of right elbow without complication, subsequent encounter- Primary Chronic diastolic congestive heart failure (Multi) Type 2 diabetes mellitus without complication, without long-term current use of insulin (Multi) Low testosterone in male ALISHA on CPAP Routine general medical examination at health care facility- Primary Routine general medical examination at a health care facility Chronic diastolic congestive heart failure (Multi) Mixed hyperlipidemia Hypertension, essential, benign Essential hypertension, benign Mild CAD Peripheral arterial occlusive disease Unspecified peripheral vascular disease Permanent atrial fibrillation (Multi) Atrial fibrillation Type 2 diabetes mellitus without complication, without long-term current use of insulin (Multi) Gastroesophageal reflux disease without esophagitis Esophageal reflux Benign prostatic hyperplasia without lower urinary tract symptoms Major depressive disorder, single episode, in partial remission Major depressive disorder, single episode, in partial or unspecified remission Sacroiliitis Sacroiliitis, not elsewhere classified ALISHA on CPAP Low testosterone 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 Spinal stenosis of lumbar region Generalized osteoarthritis of multiple sites Generalized osteoarthrosis, involving multiple sites 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, 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 Lumbar radiculopathy Thoracic or lumbosacral neuritis or radiculitis, unspecified Neurogenic claudication due to lumbar spinal stenosis Spinal stenosis of lumbar region Sacroiliitis Sacroiliitis, not elsewhere classified Generalized osteoarthritis of multiple sites Generalized osteoarthrosis, involving multiple sites 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, lumbosacral region Type 2 diabetes mellitus without complication, without long-term current use of insulin (Multi)- Primary Neurogenic claudication due to lumbar spinal stenosis Spinal stenosis of lumbar region Sacroiliitis Sacroiliitis, not elsewhere classified Generalized osteoarthritis of multiple sites Generalized osteoarthrosis, involving multiple sites 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, lumbosacral region Screening for prostate cancer Special screening for malignant neoplasm of prostate Gastroesophageal reflux disease without esophagitis Esophageal reflux Hypertension, essential, benign Essential hypertension, benign Mixed hyperlipidemia Permanent atrial fibrillation (Multi) Atrial fibrillation Low testosterone in male Chronic diastolic congestive heart failure (Multi) Peripheral arterial occlusive disease Unspecified peripheral vascular disease Type 2 diabetes mellitus without complication, without long-term current use of insulin (Multi)- Primary Neurogenic claudication due to lumbar spinal stenosis Spinal stenosis of lumbar region Sacroiliitis Sacroiliitis, not elsewhere classified Generalized osteoarthritis of multiple sites Generalized osteoarthrosis, involving multiple sites 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, lumbosacral region Gastroesophageal reflux disease without esophagitis Esophageal reflux Hypertension, essential, benign Essential hypertension, benign Mixed hyperlipidemia Permanent atrial fibrillation (Multi) Atrial fibrillation Low testosterone in male Chronic diastolic congestive heart failure (Multi) Elevated PSA measurement Peripheral arterial occlusive disease Unspecified peripheral vascular disease Sinus node dysfunction (Multi) Bronchitis- Primary Bronchitis, not specified as acute or chronic Type 2 diabetes mellitus without complication, without long-term current use of insulin (Multi) Chronic diastolic congestive heart failure (Multi) Permanent atrial fibrillation (Multi) Atrial fibrillation Gastroesophageal reflux disease without esophagitis Esophageal reflux Benign prostatic hyperplasia without lower urinary tract symptoms Chronic rhinitis Mixed hyperlipidemia Hyperthyroidism Thyrotoxicosis 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 or other cause, without mention of thyrotoxic crisis or storm Obstructive sleep apnea on CPAP Hypertension, essential, benign- Primary Essential hypertension, benign Permanent atrial fibrillation (Multi) Atrial fibrillation Heart failure with mildly reduced ejection fraction (HFmrEF) (Multi) Type 2 diabetes mellitus without complication, without long-term current use of insulin (Multi) Gastroesophageal reflux disease without esophagitis Esophageal reflux Other fatigue Esophageal perforation Perforation of esophagus Routine general medical examination at health care facility- Primary Routine general medical examination at a health care facility Neurogenic claudication due to lumbar spinal stenosis Spinal stenosis of lumbar region Sacroiliitis Sacroiliitis, not elsewhere classified Generalized osteoarthritis of multiple sites Generalized osteoarthrosis, involving multiple sites 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, lumbosacral region Gastroesophageal reflux disease without esophagitis Esophageal reflux Hypertension, essential, benign Essential hypertension, benign Mixed hyperlipidemia Type 2 diabetes mellitus without complication, without long-term current use of insulin (Multi) Permanent atrial fibrillation (Multi) Atrial fibrillation Low testosterone in male Chronic diastolic congestive heart failure (Multi) Chronic idiopathic constipation Unspecified constipation Screening for prostate cancer Special screening for malignant neoplasm of prostate Chronotropic incompetence- Primary Other specified conduction disorder Orthostatic hypotension Type 2 diabetes mellitus without complication, without long-term current use of insulin (Multi) Chronic diastolic congestive heart failure (Multi) Type 2 diabetes mellitus without complication, without long-term current use of insulin (Multi)- Primary Orthostatic hypotension 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 Chronic diastolic congestive heart failure (Multi) Obstructive sleep apnea on CPAP Benign prostatic hyperplasia without lower urinary tract symptoms Hypertension, essential, benign Essential hypertension, benign Mixed hyperlipidemia Permanent atrial fibrillation (Multi) Atrial fibrillation Screening for prostate cancer Special screening for malignant neoplasm of prostate documented in this encounter [facility] Work Phone: Evaluation note* Diagnosis ALISHA on CPAP- Primary 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 2 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 mellitus without complication, 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 Chronic diastolic congestive heart failure (Multi) Hypertension, essential, benign Essential hypertension, benign Peripheral arterial occlusive disease Unspecified peripheral vascular disease Permanent atrial fibrillation (Multi) Atrial fibrillation Sinus node dysfunction (Multi) Gastroesophageal reflux disease without esophagitis Esophageal reflux Benign prostatic hyperplasia without lower urinary tract symptoms Sacroiliitis Sacroiliitis, not elsewhere classified Screening for prostate cancer Special screening for malignant neoplasm of prostate Low testosterone in male Chronic rhinitis Mixed hyperlipidemia- Primary Gastroesophageal reflux disease without esophagitis Esophageal reflux Hypertension, essential, benign Essential hypertension, benign Permanent atrial fibrillation (Multi) Atrial fibrillation Benign prostatic hyperplasia without lower urinary tract symptoms Major depressive disorder, single episode, in partial remission Major depressive disorder, single episode, in partial or unspecified remission COVID-19 Type 2 diabetes mellitus without complication, without long-term current use of insulin (Multi)- Primary Chronic diastolic congestive heart failure (Multi) Mixed hyperlipidemia Hypertension, essential, benign Essential hypertension, benign Mild CAD Peripheral arterial occlusive disease Unspecified peripheral vascular disease Permanent atrial fibrillation (Multi) Atrial fibrillation Gastroesophageal reflux disease without esophagitis Esophageal reflux Benign prostatic hyperplasia without lower urinary tract symptoms Major depressive disorder, single episode, in partial remission Major depressive disorder, single episode, in partial or unspecified remission Sacroiliitis Sacroiliitis, not elsewhere classified ALISHA on CPAP Low testosterone Sinus node dysfunction (Multi) Low testosterone in male Dizziness- Primary Dizziness and giddiness Chronic fatigue Other malaise and fatigue Chronic diastolic congestive heart failure (Multi) Hypertension, essential, benign Essential hypertension, benign Permanent atrial fibrillation (Multi) Atrial fibrillation Hypertension, essential, benign- Primary Essential hypertension, benign Dizziness Dizziness and giddiness Chronic fatigue Other malaise and fatigue Type 2 diabetes mellitus without complication, without long-term current use of insulin (Multi) Low testosterone in male Skin tear of right elbow without complication, subsequent encounter- Primary Chronic diastolic congestive heart failure (Multi) Type 2 diabetes mellitus without complication, without long-term current use of insulin (Multi) Low testosterone in male ALISHA on CPAP Routine general medical examination at health care facility- Primary Routine general medical examination at a health care facility Chronic diastolic congestive heart failure (Multi) Mixed hyperlipidemia Hypertension, essential, benign Essential hypertension, benign Mild CAD Peripheral arterial occlusive disease Unspecified peripheral vascular disease Permanent atrial fibrillation (Multi) Atrial fibrillation Type 2 diabetes mellitus without complication, without long-term current use of insulin (Multi) Gastroesophageal reflux disease without esophagitis Esophageal reflux Benign prostatic hyperplasia without lower urinary tract symptoms Major depressive disorder, single episode, in partial remission Major depressive disorder, single episode, in partial or unspecified remission Sacroiliitis Sacroiliitis, not elsewhere classified ALISHA on CPAP Low testosterone 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 Spinal stenosis of lumbar region Generalized osteoarthritis of multiple sites Generalized osteoarthrosis, involving multiple sites 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, 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 Type 2 diabetes mellitus without complication, without long-term current use of insulin (Multi)- Primary Neurogenic claudication due to lumbar spinal stenosis Spinal stenosis of lumbar region Sacroiliitis Sacroiliitis, not elsewhere classified Generalized osteoarthritis of multiple sites Generalized osteoarthrosis, involving multiple sites 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, lumbosacral region Screening for prostate cancer Special screening for malignant neoplasm of prostate Gastroesophageal reflux disease without esophagitis Esophageal reflux Hypertension, essential, benign Essential hypertension, benign Mixed hyperlipidemia Permanent atrial fibrillation (Multi) Atrial fibrillation Low testosterone in male Chronic diastolic congestive heart failure (Multi) Peripheral arterial occlusive disease Unspecified peripheral vascular disease Type 2 diabetes mellitus without complication, without long-term current use of insulin (Multi)- Primary Neurogenic claudication due to lumbar spinal stenosis Spinal stenosis of lumbar region Sacroiliitis Sacroiliitis, not elsewhere classified Generalized osteoarthritis of multiple sites Generalized osteoarthrosis, involving multiple sites 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, lumbosacral region Gastroesophageal reflux disease without esophagitis Esophageal reflux Hypertension, essential, benign Essential hypertension, benign Mixed hyperlipidemia Permanent atrial fibrillation (Multi) Atrial fibrillation Low testosterone in male Chronic diastolic congestive heart failure (Multi) Elevated PSA measurement Peripheral arterial occlusive disease Unspecified peripheral vascular disease Sinus node dysfunction (Multi) Bronchitis- Primary Bronchitis, not specified as acute or chronic Type 2 diabetes mellitus without complication, without long-term current use of insulin (Multi) Chronic diastolic congestive heart failure (Multi) Permanent atrial fibrillation (Multi) Atrial fibrillation Gastroesophageal reflux disease without esophagitis Esophageal reflux Benign prostatic hyperplasia without lower urinary tract symptoms Chronic rhinitis Mixed hyperlipidemia Hyperthyroidism Thyrotoxicosis 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 or other cause, without mention of thyrotoxic crisis or storm Obstructive sleep apnea on CPAP Hypertension, essential, benign- Primary Essential hypertension, benign Permanent atrial fibrillation (Multi) Atrial fibrillation Heart failure with mildly reduced ejection fraction (HFmrEF) (Multi) Type 2 diabetes mellitus without complication, without long-term current use of insulin (Multi) Gastroesophageal reflux disease without esophagitis Esophageal reflux Other fatigue Esophageal perforation Perforation of esophagus Routine general medical examination at health care facility- Primary Routine general medical examination at a health care facility Neurogenic claudication due to lumbar spinal stenosis Spinal stenosis of lumbar region Sacroiliitis Sacroiliitis, not elsewhere classified Generalized osteoarthritis of multiple sites Generalized osteoarthrosis, involving multiple sites 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, lumbosacral region Gastroesophageal reflux disease without esophagitis Esophageal reflux Hypertension, essential, benign Essential hypertension, benign Mixed hyperlipidemia Type 2 diabetes mellitus without complication, without long-term current use of insulin (Multi) Permanent atrial fibrillation (Multi) Atrial fibrillation Low testosterone in male Chronic diastolic congestive heart failure (Multi) Chronic idiopathic constipation Unspecified constipation Screening for prostate cancer Special screening for malignant neoplasm of prostate Chronotropic incompetence- Primary Other specified conduction disorder Orthostatic hypotension Type 2 diabetes mellitus without complication, without long-term current use of insulin (Multi) Chronic diastolic congestive heart failure (Multi) Type 2 diabetes mellitus without complication, without long-term current use of insulin (Multi)- Primary Orthostatic hypotension 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 Chronic diastolic congestive heart failure (Multi) Obstructive sleep apnea on CPAP Benign prostatic hyperplasia without lower urinary tract symptoms Hypertension, essential, benign Essential hypertension, benign Mixed hyperlipidemia Permanent atrial fibrillation (Multi) Atrial fibrillation Screening for prostate cancer Special screening for malignant neoplasm of prostate Chronic systolic (congestive) heart failure (Multi)- Primary Heart failure with mid-range ejection fraction (HFmEF) (Multi) Primary hypertension Unspecified essential hypertension documented in this encounter [facility] Work Phone: Evaluation note* Diagnosis ALISHA on CPAP- Primary Type 2 diabetes mellitus without complication, 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 Chronic diastolic congestive heart failure (Multi) Hypertension, essential, benign Essential hypertension, benign Peripheral arterial occlusive disease Unspecified peripheral vascular disease Permanent atrial fibrillation (Multi) Atrial fibrillation Sinus node dysfunction (Multi) Gastroesophageal reflux disease without esophagitis Esophageal reflux Benign prostatic hyperplasia without lower urinary tract symptoms Sacroiliitis Sacroiliitis, not elsewhere classified Screening for prostate cancer Special screening for malignant neoplasm of prostate Low testosterone in male Chronic rhinitis Mixed hyperlipidemia- Primary Gastroesophageal reflux disease without esophagitis Esophageal reflux Hypertension, essential, benign Essential hypertension, benign Permanent atrial fibrillation (Multi) Atrial fibrillation Benign prostatic hyperplasia without lower urinary tract symptoms Major depressive disorder, single episode, in partial remission Major depressive disorder, single episode, in partial or unspecified remission COVID-19 Type 2 diabetes mellitus without complication, without long-term current use of insulin (Multi)- Primary Chronic diastolic congestive heart failure (Multi) Mixed hyperlipidemia Hypertension, essential, benign Essential hypertension, benign Mild CAD Peripheral arterial occlusive disease Unspecified peripheral vascular disease Permanent atrial fibrillation (Multi) Atrial fibrillation Gastroesophageal reflux disease without esophagitis Esophageal reflux Benign prostatic hyperplasia without lower urinary tract symptoms Major depressive disorder, single episode, in partial remission Major depressive disorder, single episode, in partial or unspecified remission Sacroiliitis Sacroiliitis, not elsewhere classified ALISHA on CPAP Low testosterone Sinus node dysfunction (Multi) Low testosterone in male Dizziness- Primary Dizziness and giddiness Chronic fatigue Other malaise and fatigue Chronic diastolic congestive heart failure (Multi) Hypertension, essential, benign Essential hypertension, benign Permanent atrial fibrillation (Multi) Atrial fibrillation Hypertension, essential, benign- Primary Essential hypertension, benign Dizziness Dizziness and giddiness Chronic fatigue Other malaise and fatigue Type 2 diabetes mellitus without complication, without long-term current use of insulin (Multi) Low testosterone in male Skin tear of right elbow without complication, subsequent encounter- Primary Chronic diastolic congestive heart failure (Multi) Type 2 diabetes mellitus without complication, without long-term current use of insulin (Multi) Low testosterone in male ALISHA on CPAP Routine general medical examination at health care facility- Primary Routine general medical examination at a health care facility Chronic diastolic congestive heart failure (Multi) Mixed hyperlipidemia Hypertension, essential, benign Essential hypertension, benign Mild CAD Peripheral arterial occlusive disease Unspecified peripheral vascular disease Permanent atrial fibrillation (Multi) Atrial fibrillation Type 2 diabetes mellitus without complication, without long-term current use of insulin (Multi) Gastroesophageal reflux disease without esophagitis Esophageal reflux Benign prostatic hyperplasia without lower urinary tract symptoms Major depressive disorder, single episode, in partial remission Major depressive disorder, single episode, in partial or unspecified remission Sacroiliitis Sacroiliitis, not elsewhere classified ALISHA on CPAP Low testosterone 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 Spinal stenosis of lumbar region Generalized osteoarthritis of multiple sites Generalized osteoarthrosis, involving multiple sites 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, 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 Type 2 diabetes mellitus without complication, without long-term current use of insulin (Multi)- Primary Neurogenic claudication due to lumbar spinal stenosis Spinal stenosis of lumbar region Sacroiliitis Sacroiliitis, not elsewhere classified Generalized osteoarthritis of multiple sites Generalized osteoarthrosis, involving multiple sites 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, lumbosacral region Screening for prostate cancer Special screening for malignant neoplasm of prostate Gastroesophageal reflux disease without esophagitis Esophageal reflux Hypertension, essential, benign Essential hypertension, benign Mixed hyperlipidemia Permanent atrial fibrillation (Multi) Atrial fibrillation Low testosterone in male Chronic diastolic congestive heart failure (Multi) Peripheral arterial occlusive disease Unspecified peripheral vascular disease Type 2 diabetes mellitus without complication, without long-term current use of insulin (Multi)- Primary Neurogenic claudication due to lumbar spinal stenosis Spinal stenosis of lumbar region Sacroiliitis Sacroiliitis, not elsewhere classified Generalized osteoarthritis of multiple sites Generalized osteoarthrosis, involving multiple sites 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, lumbosacral region Gastroesophageal reflux disease without esophagitis Esophageal reflux Hypertension, essential, benign Essential hypertension, benign Mixed hyperlipidemia Permanent atrial fibrillation (Multi) Atrial fibrillation Low testosterone in male Chronic diastolic congestive heart failure (Multi) Elevated PSA measurement Peripheral arterial occlusive disease Unspecified peripheral vascular disease Sinus node dysfunction (Multi) Bronchitis- Primary Bronchitis, not specified as acute or chronic Type 2 diabetes mellitus without complication, without long-term current use of insulin (Multi) Chronic diastolic congestive heart failure (Multi) Permanent atrial fibrillation (Multi) Atrial fibrillation Gastroesophageal reflux disease without esophagitis Esophageal reflux Benign prostatic hyperplasia without lower urinary tract symptoms Chronic rhinitis Mixed hyperlipidemia Hyperthyroidism Thyrotoxicosis 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 or other cause, without mention of thyrotoxic crisis or storm Obstructive sleep apnea on CPAP Hypertension, essential, benign- Primary Essential hypertension, benign Permanent atrial fibrillation (Multi) Atrial fibrillation Heart failure with mildly reduced ejection fraction (HFmrEF) (Multi) Type 2 diabetes mellitus without complication, without long-term current use of insulin (Multi) Gastroesophageal reflux disease without esophagitis Esophageal reflux Other fatigue Esophageal perforation Perforation of esophagus Routine general medical examination at health care facility- Primary Routine general medical examination at a health care facility Neurogenic claudication due to lumbar spinal stenosis Spinal stenosis of lumbar region Sacroiliitis Sacroiliitis, not elsewhere classified Generalized osteoarthritis of multiple sites Generalized osteoarthrosis, involving multiple sites 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, lumbosacral region Gastroesophageal reflux disease without esophagitis Esophageal reflux Hypertension, essential, benign Essential hypertension, benign Mixed hyperlipidemia Type 2 diabetes mellitus without complication, without long-term current use of insulin (Multi) Permanent atrial fibrillation (Multi) Atrial fibrillation Low testosterone in male Chronic diastolic congestive heart failure (Multi) Chronic idiopathic constipation Unspecified constipation Screening for prostate cancer Special screening for malignant neoplasm of prostate Chronotropic incompetence- Primary Other specified conduction disorder Orthostatic hypotension Type 2 diabetes mellitus without complication, without long-term current use of insulin (Multi) Chronic diastolic congestive heart failure (Multi) Type 2 diabetes mellitus without complication, without long-term current use of insulin (Multi)- Primary Orthostatic hypotension 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 Chronic diastolic congestive heart failure (Multi) Obstructive sleep apnea on CPAP Benign prostatic hyperplasia without lower urinary tract symptoms Hypertension, essential, benign Essential hypertension, benign Mixed hyperlipidemia Permanent atrial fibrillation (Multi) Atrial fibrillation Screening for prostate cancer Special screening for malignant neoplasm of prostate 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 stenosis Spinal stenosis of lumbar region Lumbar radiculopathy Thoracic or lumbosacral neuritis or radiculitis, unspecified Cervical radiculitis Brachial neuritis or radiculitis nos Permanent atrial fibrillation (Multi) Atrial fibrillation Type 2 diabetes mellitus without complication, without long-term current use of insulin (Multi) Hypertension, essential, benign Essential hypertension, benign Mixed hyperlipidemia Screening for prostate cancer Special screening for malignant neoplasm of prostate documented in this encounter [facility] Work Phone: Evaluation note* Diagnosis ALISHA on CPAP- Primary Type 2 diabetes mellitus without complication, 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 Chronic diastolic congestive heart failure (Multi) Hypertension, essential, benign Essential hypertension, benign Peripheral arterial occlusive disease Unspecified peripheral vascular disease Permanent atrial fibrillation (Multi) Atrial fibrillation Sinus node dysfunction (Multi) Gastroesophageal reflux disease without esophagitis Esophageal reflux Benign prostatic hyperplasia without lower urinary tract symptoms Sacroiliitis Sacroiliitis, not elsewhere classified Screening for prostate cancer Special screening for malignant neoplasm of prostate Low testosterone in male Chronic rhinitis Mixed hyperlipidemia- Primary Gastroesophageal reflux disease without esophagitis Esophageal reflux Hypertension, essential, benign Essential hypertension, benign Permanent atrial fibrillation (Multi) Atrial fibrillation Benign prostatic hyperplasia without lower urinary tract symptoms Major depressive disorder, single episode, in partial remission Major depressive disorder, single episode, in partial or unspecified remission COVID-19 Type 2 diabetes mellitus without complication, without long-term current use of insulin (Multi)- Primary Chronic diastolic congestive heart failure (Multi) Mixed hyperlipidemia Hypertension, essential, benign Essential hypertension, benign Mild CAD Peripheral arterial occlusive disease Unspecified peripheral vascular disease Permanent atrial fibrillation (Multi) Atrial fibrillation Gastroesophageal reflux disease without esophagitis Esophageal reflux Benign prostatic hyperplasia without lower urinary tract symptoms Major depressive disorder, single episode, in partial remission Major depressive disorder, single episode, in partial or unspecified remission Sacroiliitis Sacroiliitis, not elsewhere classified ALISHA on CPAP Low testosterone Sinus node dysfunction (Multi) Low testosterone in male Dizziness- Primary Dizziness and giddiness Chronic fatigue Other malaise and fatigue Chronic diastolic congestive heart failure (Multi) Hypertension, essential, benign Essential hypertension, benign Permanent atrial fibrillation (Multi) Atrial fibrillation Hypertension, essential, benign- Primary Essential hypertension, benign Dizziness Dizziness and giddiness Chronic fatigue Other malaise and fatigue Type 2 diabetes mellitus without complication, without long-term current use of insulin (Multi) Low testosterone in male Skin tear of right elbow without complication, subsequent encounter- Primary Chronic diastolic congestive heart failure (Multi) Type 2 diabetes mellitus without complication, without long-term current use of insulin (Multi) Low testosterone in male ALISHA on CPAP Routine general medical examination at health care facility- Primary Routine general medical examination at a health care facility Chronic diastolic congestive heart failure (Multi) Mixed hyperlipidemia Hypertension, essential, benign Essential hypertension, benign Mild CAD Peripheral arterial occlusive disease Unspecified peripheral vascular disease Permanent atrial fibrillation (Multi) Atrial fibrillation Type 2 diabetes mellitus without complication, without long-term current use of insulin (Multi) Gastroesophageal reflux disease without esophagitis Esophageal reflux Benign prostatic hyperplasia without lower urinary tract symptoms Major depressive disorder, single episode, in partial remission Major depressive disorder, single episode, in partial or unspecified remission Sacroiliitis Sacroiliitis, not elsewhere classified ALISHA on CPAP Low testosterone 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 Spinal stenosis of lumbar region Generalized osteoarthritis of multiple sites Generalized osteoarthrosis, involving multiple sites 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, 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 Type 2 diabetes mellitus without complication, without long-term current use of insulin (Multi)- Primary Neurogenic claudication due to lumbar spinal stenosis Spinal stenosis of lumbar region Sacroiliitis Sacroiliitis, not elsewhere classified Generalized osteoarthritis of multiple sites Generalized osteoarthrosis, involving multiple sites 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, lumbosacral region Screening for prostate cancer Special screening for malignant neoplasm of prostate Gastroesophageal reflux disease without esophagitis Esophageal reflux Hypertension, essential, benign Essential hypertension, benign Mixed hyperlipidemia Permanent atrial fibrillation (Multi) Atrial fibrillation Low testosterone in male Chronic diastolic congestive heart failure (Multi) Peripheral arterial occlusive disease Unspecified peripheral vascular disease Type 2 diabetes mellitus without complication, without long-term current use of insulin (Multi)- Primary Neurogenic claudication due to lumbar spinal stenosis Spinal stenosis of lumbar region Sacroiliitis Sacroiliitis, not elsewhere classified Generalized osteoarthritis of multiple sites Generalized osteoarthrosis, involving multiple sites 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, lumbosacral region Gastroesophageal reflux disease without esophagitis Esophageal reflux Hypertension, essential, benign Essential hypertension, benign Mixed hyperlipidemia Permanent atrial fibrillation (Multi) Atrial fibrillation Low testosterone in male Chronic diastolic congestive heart failure (Multi) Elevated PSA measurement Peripheral arterial occlusive disease Unspecified peripheral vascular disease Sinus node dysfunction (Multi) Bronchitis- Primary Bronchitis, not specified as acute or chronic Type 2 diabetes mellitus without complication, without long-term current use of insulin (Multi) Chronic diastolic congestive heart failure (Multi) Permanent atrial fibrillation (Multi) Atrial fibrillation Gastroesophageal reflux disease without esophagitis Esophageal reflux Benign prostatic hyperplasia without lower urinary tract symptoms Chronic rhinitis Mixed hyperlipidemia Hyperthyroidism Thyrotoxicosis 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 or other cause, without mention of thyrotoxic crisis or storm Obstructive sleep apnea on CPAP Hypertension, essential, benign- Primary Essential hypertension, benign Permanent atrial fibrillation (Multi) Atrial fibrillation Heart failure with mildly reduced ejection fraction (HFmrEF) (Multi) Type 2 diabetes mellitus without complication, without long-term current use of insulin (Multi) Gastroesophageal reflux disease without esophagitis Esophageal reflux Other fatigue Esophageal perforation Perforation of esophagus Routine general medical examination at health care facility- Primary Routine general medical examination at a health care facility Neurogenic claudication due to lumbar spinal stenosis Spinal stenosis of lumbar region Sacroiliitis Sacroiliitis, not elsewhere classified Generalized osteoarthritis of multiple sites Generalized osteoarthrosis, involving multiple sites 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, lumbosacral region Gastroesophageal reflux disease without esophagitis Esophageal reflux Hypertension, essential, benign Essential hypertension, benign Mixed hyperlipidemia Type 2 diabetes mellitus without complication, without long-term current use of insulin (Multi) Permanent atrial fibrillation (Multi) Atrial fibrillation Low testosterone in male Chronic diastolic congestive heart failure (Multi) Chronic idiopathic constipation Unspecified constipation Screening for prostate cancer Special screening for malignant neoplasm of prostate Chronotropic incompetence- Primary Other specified conduction disorder Orthostatic hypotension Type 2 diabetes mellitus without complication, without long-term current use of insulin (Multi) Chronic diastolic congestive heart failure (Multi) Type 2 diabetes mellitus without complication, without long-term current use of insulin (Multi)- Primary Orthostatic hypotension 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 Chronic diastolic congestive heart failure (Multi) Obstructive sleep apnea on CPAP Benign prostatic hyperplasia without lower urinary tract symptoms Hypertension, essential, benign Essential hypertension, benign Mixed hyperlipidemia Permanent atrial fibrillation (Multi) Atrial fibrillation Screening for prostate cancer Special screening for malignant neoplasm of prostate Type 2 diabetes mellitus without complication, without long-term current use of insulin (Multi)- Primary Orthostatic hypotension 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 His only complaint is worsening exertional shortness of breath but denies any palpitations or feeling ofirregular heart rate. Denies leg swelling or claudication pain. No other new symptoms and has been compliant with his medications. No bleeding with starting Xarelto * Hosp note: * ROCIO SANDOVAL is a 74 year old Male Past medical history of diabetes, hypertension, hyperlipidemia, obstructive sleep apnea with compliance with CPAP at night reflux disease and was discovered to have hiatal hernia on CT which was done in the ER yesterday presented with chest pain which he desc ribes as a ache sensation. Pain recently worsened with exertion and radiates to the axilla. No inciting or relieving factors. No significant family history and non smoker. * Clinic Note * 74-year-old male with history as documented below in the hospital note here for follow-up after hospitalization with chest pain. He continues to have exertional chest pain while walking up the stairs. Denies any palpitations, orthopnea, PND. He is compliant with his CPAP. He has family history of at herosclerotic cardiovascular disease with mother having stroke. * Clinic #2 * He is doing fine from the cardiac standpoint and seems like his pain was musculoskeletal. No changein breathing. Does not have any bleeding from the cath site. He had a right inguinal cath. [facility] Work Phone: History of Present illness Narrative* The patient is being seen for the subsequent annual wellness visit. * Past Medical, Surgical and Family History: reviewed and updated in chart. * Medications and Supplements: Review of all medications by a prescribing practitioner or clinical pharmacist (such as prescriptions, OTCs, herbal therapies and supplements) documented in the medical record. * No, the patient is not using opioids. * Patient Self Assessment of Health Status: fair. * Tobacco use: Non-User * Alcohol use: Non-User * Illicit drug use: Non-User * Current diet: well balanced diet. * Exercise Frequency: infrequently. * Depression/Suicide Screening: . * During the past 2 weeks, the patient has not felt down, depressed or hopeless. * During the past 2 weeks, the patient has not felt little interest or pleasure in doing things. * Hearing Impairment: none. * Cognitive Impairment: No cognitive impairment observed. * Bathing: performs independently. * Dressing: performs independently. * Walking: performs independently. * Managing Finances: performs independently. * Shopping: performs independently. * Managing Medications: performs independently. * Housework / Basic Home Maintenance: performs independently. * Falls Risk Screening:. ROCIO has not fallen in the last 6 months. * Home safety risk factors: none. * No headache, chest pain, shortness of breath (stable HERNANDEZ), dizziness, lightheadedness, or edema (some better) * Taking and tolerating Xarelto * Taking PPI daily without breakthrough symptoms. Reviewed dietary, caffeine, tobacco, alcohol, and NSAID use. No dyspepsia, dysphagia, reflux, melena, or abdominal pain. * No low blood sugars since last OV, seen opthalmology in the past year, and no numbness or tingling in feet, skin normal. * Seen Cardiology last month, seen EP physician * Patient has been using their CPAP nightly and is experiencing restful sleep, no morning headaches, no witnessed snoring, and notices a difference if they do not use the device. * + LBP (seen pain medicine) * no palpitations [facility] Work Phone: History of Present illness Narrative* 75-year-old gentleman with a medical history of diabetes, hypertension, hyperlipidemia, obstructivesleep apnea here to follow-up on new onset atrial fibrillation. * Problem #1 persistent l atrial fibrillation * -Event monitors recently have shown 100% burden of atrial fibrillation * -Patient denies any chest discomfort or palpitations. Appears to be tolerating his Xarelto well * -Denies any shortness of breath above his baseline. Denies any orthopnea/PND/lower extremity edema * Problem #2 heart failure with preserved ejection fraction * -Taking Lasix for 20 mg every other day. Has been switched to Farxiga [id number] [address] Work Phone: History of Present illness Narrative* Was out to breakfast was getting out of his car as he stood up he started to get some dizziness. Did not do much yesterday. Today he does not have any dizziness, but he still feels a little bit off. * He has lost about 40 to 50 pounds since the beginning of the year. * Has not had any adjustments to his medications. * Pulse rate seems on the low side around 60, but he is not on any chronotropic medicine. * His systolic blood pressure seems to be okay with the weight loss, but his diastolic blood pressurehas been getting lower over time and has remained consistently been under 60 over the summer. For now he has not had any troubles with the dizziness. * Over the last couple of days he is drinking some fluids but he has not been well with his water fluid intake. Does not drink any alcohol does drink a little caffeine. * Also does have some mild allergies that are not acting up and he uses Zyrtec daily. * Labs are good from December. * Exam is benign including negative carotid bruits bilateral. Ears are clear no wax tympanic membranes of normal * Orthostasis more than vertigo or allergies. * Stop the Lasix for the next 4 days. * Increase water intake * Decrease lisinopril to 10 mg daily. * Call next week if he does not feel better with these adjustments. * Hypertension - Takes medication without side effects. No CP/SOB/Palpitations. Follows a no added salt diet. Counseled diet, activity and weight loss. * afib - sees cardio [facility] Work Phone: History of Present illness Narrative* The patient is being seen for the subsequent annual wellness visit. * Past Medical, Surgical and Family History: reviewed and updated in chart. * Medications and Supplements: Review of all medications by a prescribing practitioner or clinical pharmacist (such as prescriptions, OTCs, herbal therapies and supplements) documented in the medical record. * No, the patient is not using opioids. * Patient Self Assessment of Health Status: fair. * Tobacco use: Non-User * Alcohol use: Non-User * Illicit drug use: Non-User * Current diet: well balanced diet. * Exercise Frequency: infrequently. * Depression/Suicide Screening: . * During the past 2 weeks, the patient has not felt down, depressed or hopeless. * During the past 2 weeks, the patient has not felt little interest or pleasure in doing things. * Hearing Impairment: none. * Cognitive Impairment: No cognitive impairment observed. * Bathing: performs independently. * Dressing: performs independently. * Walking: performs independently. * Managing Finances: performs independently. * Shopping: performs independently. * Managing Medications: performs independently. * Housework / Basic Home Maintenance: performs independently. * Falls Risk Screening:. ROCIO has not fallen in the last 6 months. * Home safety risk factors: none. * Advance directives:. Advanced Care Planning discussed and documented advance care plan or surrogatedecision maker documented in the medical record. Patient has living will. Patient has healthcare POA. * Patient's End of Life Decisions: End of life decisions were reviewed with the patient. I agree to follow the patient's decisions. * No low blood sugars since last OV, seen opthalmology in the past year, and no numbness or tingling in feet, skin normal. * No headache, chest pain, shortness of breath, dizziness, lightheadedness, or edema * Taking and tolerating anticoagulation, last seen cardiology in May * Taking PPI daily without breakthrough symptoms. Reviewed dietary, caffeine, tobacco, alcohol, and NSAID use. No dyspepsia, dysphagia, reflux, melena, or abdominal pain. * Patient has been using their CPAP nightly and is experiencing restful sleep, no morning headaches, no witnessed snoring, and notices a difference if they do not use the device. * Seen pain medicine and added gabapentin for pain, to see again this AM, gabapentin helping * had pacemaker placed last month, feeling better since, was having bradycardia before after ablation * has lost over 20 pounds in the past 6 months, not trying to loose wt., appetite poor at times [facility] Work Phone: History of Present illness Narrative* On a scale of 0 to 10, the patient rates the pain at 7. * Pain Location: Low Back Pain, Upper Back Pain and across both sides under scapula and above belt line bilat shoulders. * Pain Quality: Aching. * Pain Radiation: none. * Sensory/ Motor: Numbness and lt foot on lateral side of foot and 5th toe ongoing. * Timing/Duration: Constant and > 12 weeks duration. * Controlled Substance: * I have personally reviewed the [place] report for ROCIO SANDOVAL. I have considered the risks of abuse, dependence, addiction and diversion. * Exacerbating Factors: motion, standing, stairs and walking. * Alleviating Factors: Medications, Repositioning, Other: ___. [facility] Work [facility]: History of Present illness Narrative* SANDY Curtis - 06/12/2024 12:15 PM EST Patient presented to Urgent Care for evaluation of a cold symptoms, cough, SOB (even when just sitting in his chair), increased fatigue, L sided lower jaw pain, and reports has been having a discomfort in his L chest over my pacemaker. Has history of CHF - reports had a stress test on Sunday and has not received results yet. In light of symptoms and cardiac history, recommended patient seek care at the ER - patient/ receptive and they agree to go straight there. Non-billable - deferring all visit/evaluation to the ER. [facility]: Hospital Discharge instructions* Attachments The following attachments cannot be sent through Care Everywhere. * Bronchitis, Adult ED ([place]) [facility]: [facility]charge instructions* Attachments The following attachments cannot be sent through Care Everywhere. * Moderate Sedation in Adults Discharge Instructions ([place]) [facility] Work Phone: Hospital Discharge instructions* Attachments The following attachments cannot be sent through Care Everywhere. * Orthostatic hypotension ([place]) [facility] Work Phone: Hospital Discharge instructionsAmbulatory Orders* Ears, Nose and Throat Location: None [facility] Work Phone: Reason for referral (narrative)* Consultation (Routine) - Authorized Specialty Diagnoses / Procedures Referred By Carlie guzman Referred To Contact Primary Care Diagnoses Chronic diastolic congestive heart failure (CMS/HCC) Mixed hyperlipidemia Hypertension, essential, benign Mild CAD Peripheral arterial occlusive disease (CMS/HCC) Permanent atrial fibrillation (CMS/HCC) Type 2 diabetes mellitus without complication, without long-term current use of insulin (CMS/HCC) Gastroesophageal reflux disease without esophagitis Benign prostatic hyperplasia without lower urinary tract symptoms Major depressive disorder, single episode, in partial remission (CMS/HCC) Sacroiliitis (CMS/HCC) ALISHA on CPAP Low testosterone Procedures Follow Up In Primary Care - Established Tye Anne MD [address] [place] [address] Referral ID Status Reason Start Date Expiration Date V isits Requested Visits Authorized [id number] Authorized 04/30/2023 04/29/2024 1 1 [facility] Work Phone: Reason for referral (narrative)* Consultation (Routine) - Authorized Specialty Diagnoses / Procedures Referred By Contsoledad guzman Referred To Contact Rheumatology Diagnoses 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 Procedures Follow [place] [address] [address] [facility] [address] [place] [address] Referral ID Status Reason Start Date Expiration Date V isits Requested Visits Authorized [id number] Authorized 05/23/2023 05/22/2024 1 1 [facility] Work Phone: Reason for referral (narrative)* Consultation (Routine) - Authorized Specialty Diagnoses / Procedures Referred By Contac t Referred To Contact Primary Care Diagnoses Dizziness Chronic fatigue Procedures Follow Up In Primary Care - Established Tye Anne MD [address] [place] [address] Referral ID Status Reason Start Date Expiration Date V isits Requested Visits Authorized [id number] Authorized 06/13/2023 06/12/2024 1 1 * Consultation (Routine) - Pending Review Specialty Diagnoses / Procedures Referred By Contac t Referred To Contact Physical Therapy Diagnoses Dizziness Chronic fatigue Tye Anne MD [address] [place] [address] [place] [id number] Referral ID Status Reason Start Date Expiration Date Visits Requested Visits Authorized [id number] Pending Review Specialty Services Required 06/12/2024 1 1 [facility] Work Phone: Rephii for referral (narrative)* Procedure (Routine) - Pending Review Specialty Diagnoses / Procedures Referred By Contac t Referred To Contact Diagnoses Lumbar radiculopathy Procedures Transforaminal Reggie Aragon PA-C [address] [place] [address] Referral ID Status Reason Start Date Expiration Date Visits Requested Visits Authorized [id number] Pending Review Perform Procedure 10/18/2023 10/17/2024 1 1 [facility] [place] [facility] Work Phone: Reason for referral (narrative)* Consultation (Routine) - Authorized Specialty Diagnoses / Procedures Referred By Contac t Referred To Contact Primary Care Diagnoses Chronic diastolic congestive heart failure (Multi) Mixed hyperlipidemia Hypertension, essential, benign Mild CAD Peripheral arterial occlusive disease (CMS-HCC) Permanent atrial fibrillation (Multi) Type 2 diabetes mellitus without complication, without long-term current use of insulin (Multi) Gastroesophageal reflux disease without esophagitis Benign prostatic hyperplasia without lower urinary tract symptoms Major depressive disorder, single episode, in partial remission (CMS-HCC) Sacroiliitis ([facility]) ALISHA on CPAP Low testosterone Chronic rhinitis Routine general medical examination at health care facility Neurogenic claudication due to lumbar spinal stenosis 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, 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 Procedures Follow Up In Primary Care - Established Tye Anne MD [address] [place] [address] Referral ID Status Reason Start Date Expiration Date V isits Requested Visits Authorized [id number] Authorized 10/31/2023 10/30/2024 1 1 * Medications - Closed Specialty Diagnoses / Procedures Referred By Carlie t Referred To Contact Diagnoses Low testosterone in male Tye Anne MD [address] [place] [address] Referral ID Status Reason Start Date Expiration Date Visits Re quested Visits Authorized [id number] Closed 1 1 [facility] [place] [facility] Work Phone: Reesvq for referral (narrative)* Consultation (Routine) - Authorized Specialty Diagnoses / Procedures Referred By Contac t Referred To Contact Rheumatology Diagnoses 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 Procedures Follow [place] [address] [facility], [address] [place] [address] Referral ID Status Reason Start Date Expiration Date V isits Requested Visits Authorized [id number] Authorized 11/21/2023 11/20/2024 1 1 [facility] [place] [facility] Work Phone: Reason for visit Narrative* Procedure (Routine) - Authorized Specialty Diagnoses / Procedures Referred By Contac t Referred To Contact Pain Medicine / Procedural Diagnoses Lumbar radiculopathy Procedures Transforaminal Reggie Aragon, EUGENE [address] [place] [address] [facility] Or [address] [place] [phone] Referral ID Status Reason Start Date Expiration Date Visits Requested Visits Authorized [id number] Authorized Perform Procedure 10/18/2023 10/17/2024 1 1 [facility] [place] [facility] Work Phone: reason for visit Narrative* Imaging (Routine) - Authorized Specialty Diagnoses / Procedures Referred By Contac t Referred To Contact Radiology Diagnoses Medication management Procedures XR chest 2 views Kathy Treviño, RECORDS MANAGEMENT CLERK-BUTCHER HELPER, DNP [address] [facility] [place], [facility] [address] [place] [address] Phone: tel: fax: Referral ID Status Reason Start Date Expiration Date Visits Requested Visits Authorized [id number] Authorized Perform Procedure 4 05/13/2025 1 1 [facility] [place] [facility] Work Phone: reason for visit Narrative* Imaging (Routine) - Pending Review Specialty Diagnoses / Procedures Referred By Contac t Referred To Contact Cardiology Diagnoses Pacemaker Bradycardia Procedures Cardiac Device Check - In Clinic Aravind Jimenez MD Phone: tel: fax: Referral ID Status Reason Start Date Expiration Date Visits Requested Visits Authorized [id number] Pending Review Perform Procedure 10/23/2023 10/22/2024 1 1 [facility] [place] [facility] Work Phone: reason for visit Narrative* Imaging (Routine) - Authorized Specialty Diagnoses / Procedures Referred By Contac t Referred To Contact Pain Medicine / Radiology Diagnoses Lumbar radiculopathy Procedures [place] pain management Reggie Aragon PA-C [address] [place] [address] Phone: tel: fax: [facility] [address] [place] [address] Phone: tel: fax: Referral ID Status Reason Start Date Expiration Date Visits Requested Visits Authorized [id number] Authorized Perform Procedure 4 05/01/2025 1 1 [facility] [place] [facility] Work Phone: reason for visit Narrative* Cardiac Stress Testing (Routine) - Authorized Specialty Diagnoses / Procedures Referred By Contac t Referred To Contact Radiology Diagnoses Bradycardia Sinus node dysfunction (Multi) Hypertension, essential, benign Hyperlipidemia Shortness of breath on exertion Procedures Nuclear Stress Test CHG MYOCARDIAL SPECT MULTIPLE STUDIES Aravind Jimenez MD [address] [employer] [address], [address] [address] Phone: tel: fax: Referral ID Status Reason Start Date Expiration Date V isits Requested Visits Authorized [id number] Authorized 05/27/2024 05/27/2025 5 5 [facility] [place] [facility] Work Phone: reason for visit Narrative* Cardiac Stress Testing (Routine) - Authorized Specialty Diagnoses / Procedures Referred By Contac t Referred To Contact Radiology Diagnoses Bradycardia Sinus node dysfunction (Multi) Hypertension, essential, benign Hyperlipidemia Shortness of breath on exertion Procedures Nuclear Stress Test CHG MYOCARDIAL SPECT MULTIPLE STUDIES Aravind Jimenez MD [address] [employer] [address], [address] [address] Phone: tel: fax: Referral ID Status Reason Start Date Expiration Date V isits Requested Visits Authorized [id number] Authorized 05/27/2024 05/27/2025 5 5 [facility] [place] [facility] Work Phone: reason for visit Narrative* Imaging (Routine) - Pending Review Specialty Diagnoses / Procedures Referred By Contac t Referred To Contact Cardiology Diagnoses Cardiac pacemaker in situ Sinoatrial node dysfunction (Multi) Procedures Cardiac device check - In Clinic Aravind Jimenez MD [address] [employer] [address], [address] [address] Phone: tel: fax: Referral ID Status Reason Start Date Expiration Date Visits Requested Visits Authorized [id number] Pending Review Perform Procedure 08/11/2024 08/11/2025 1 1 [facility] [place] [facility] Work Phone: reason for visit Narrative* Imaging (Routine) - Pending Review Specialty Diagnoses / Procedures Referred By Kavitaac t Referred To Contact Cardiology Diagnoses Pacemaker Sick sinus syndrome (Multi) Procedures Cardiac Device Check - MRI Aravind Jimenez MD [address] [employer] [address], [address] [address] Phone: tel: fax: Referral ID Status Reason Start Date Expiration Date Visits Requested Visits Authorized [id number] Pending Review Perform Procedure 07/23/2024 07/23/2025 1 1 [facility] [place] [facility] Work Phone: reason for visit Narrative* Imaging (Routine) - Authorized Specialty Diagnoses / Procedures Referred By Contac t Referred To Contact Radiology Diagnoses Neurogenic claudication due to lumbar spinal 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 Procedures MR lumbar spine wo IV contrast Reggie Aragon PA-C [address] [place] [address] Phone: tel: fax: [address] [address] Phone: tel: fax: Referral ID Status Reason Start Date Expiration Date Visits Requested Visits Authorized [id number] Authorized Perform Procedure 07/17/2024 07/17/2025 1 1 [facility] [place] [facility] Work Phone: Reason for visit Narrative* Auth/Cert Specialty Diagnoses / Procedures Referred By Carlie guzman Referred To Contact Diagnoses Persistent atrial fibrillation (Multi) Pacing-induced cardiomyopathy (Multi) Procedures KS REMVL PERM PM PLS GEN W/REPL PLSE GEN MULT LEAD KS INSJ ELTRD CAR LAKISHA SYS TM INSJ DFB/PM PLS GEN KS ICAR CATHETER ABLATION ATRIOVENTR NODE FUNCTION dcPPM upgrade to PROPERTY CLAIM REP-P dcPPM upgrade to PROPERTY CLAIM REP-P Ablation AV Node ([id number]) Aravind Jimenez MD [address] [facility] 3, [facility] [address] [place] [address] Phone: tel: fax: [facility] [address] [place] [address] Phone: tel: fax: Referral ID Status Reason Start Date Expiration Date Visits Re quested Visits Authorized [id number] 1 1 [facility] [place] [facility] Work Phone: Reneqy for visit Narrative* Imaging (Routine) - Authorized Specialty Diagnoses / Procedures Referred By Carlie guzman Referred To Contact Cardiology Diagnoses Cardiac pacemaker in situ Sinoatrial node dysfunction (Multi) Procedures Cardiac Device Check - Remote Aravind Jimenez MD Phone: tel: fax: [facility] 3 [address] [facility] [address] [address] Phone: tel: fax: Referral ID Status Reason Start Date Expiration Date Visits Requested Visits Authorized [id number] Authorized Perform Procedure 09/25/2023 09/24/2024 12 12 [facility] [place] [facility] Work Phone: Reason for visit Narrative* Imaging (Routine) - Authorized Specialty Diagnoses / Procedures Referred By Carlie guzman Referred To Contact Pain Medicine / Radiology Diagnoses Lumbar radiculopathy Procedures [place] pain management Reggie Aragon PA-C [address] [place] [address] Phone: tel: fax: [facility] [address] [place] [address] Phone: tel: fax: Referral ID Status Reason Start Date Expiration Date Visits Requested Visits Authorized [id number] Authorized Perform Procedure 08/20/2024 08/20/2025 1 1 [facility] [place] [facility] Work Phone: Reason for visit Narrative* Auth/Cert Specialty Diagnoses / Procedures Referred By Carlie t Referred To Contact Diagnoses 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) [T82.897A, I42.9] Subclavian vein stenosis [I87.1] Procedures KS RMVL TRANSVNS PM ELTRD DUAL LEAD SYS KS REMVL PERM PM PLS GEN W/REPL PLSE GEN MULT LEAD KS RMVL TRANSVNS PM ELTRD DUAL LEAD SYS KS RMVL TRANSVNS PM ELTRD 1 LEAD SYS ATR/VENTR KS REMVL PERM PM PLS GEN W/REPL PLSE GEN MULT LEAD KS RMVL TRANSVNS PM ELTRD DUAL LEAD SYS PPM Lead Extraction (97332), dcPPM Upgrade to PROPERTY CLAIM REP-P (95676, 18962) PPM Lead Extraction (97000), dcPPM Upgrade to PROPERTY CLAIM REP-P (18235, 74090) PPM Lead Extraction (37562), dcPPM Upgrade to PROPERTY CLAIM REP-P (13516, 29326) Aravind Jimenez MD [address], [address] [place] [address] Phone: tel: fax: [facility] [place] [address] [address] [facility] [address] [place] [address] Phone: tel: fax: Referral ID Status Reason Start Date Expiration Date Visits Re quested Visits Authorized [id number] 1 1 [facility] [place] [facility] Work Phone: reason for visit Narrative* Imaging (Routine) - Pending Review Specialty Diagnoses / Procedures Referred By Contac t Referred To Contact Cardiology Diagnoses Encounter for adjustment and management of automatic implantable cardiac defibrillator Cardiomyopathy with implantable cardioverter-defibrillator Procedures Cardiac Device Check - In Clinic Aravind Jimenez MD [address] [employer] [address], [address] [address] Phone: tel: fax: Referral ID Status Reason Start Date Expiration Date Visits Requested Visits Authorized [id number] Pending Review Perform Procedure 09/25/2024 09/25/2025 1 1 [facility] [place] [facility] Work Phone: reason for visit Narrative* Imaging (Routine) - Pending Review Specialty Diagnoses / Procedures Referred By Carlie t Referred To Contact Cardiology Diagnoses Pacemaker Bradycardia Procedures Cardiac Device Check - In Clinic Aravind Jimenez MD [address] [employer] [address], [address] [address] Phone: tel: fax: Referral ID Status Reason Start Date Expiration Date Visits Requested Visits Authorized [id number] Pending Review Perform Procedure 4 05/13/2025 1 1 [facility] [place] [facility] Work Phone: reason for visit Narrative* CV Imaging (Routine) - Authorized Specialty Diagnoses / Procedures Referred By Kavitaac t Referred To Contact Cardiology Diagnoses SSS (sick sinus syndrome) (Multi) Shortness of breath on exertion Procedures Transthoracic echo (TTE) complete KS ECHO TTHRC R-T 2D W/WOM-MODE COMPL SPEC&COLR D Aravind Jimenez MD [address] [employer] [address], [address] [address] Phone: tel: fax: Referral ID Status Reason Start Date Expiration Date Visits Requested Visits Authorized [id number] Authorized Perform Procedure 01/15/2025 01/15/2026 1 1 [facility] [place] [facility] Work Phone: Reason for visit Narrative* Imaging (Routine) - Authorized Specialty Diagnoses / Procedures Referred By Contac t Referred To Contact Cardiology Diagnoses Cardiac pacemaker in situ Sinoatrial node dysfunction (Multi) Procedures Cardiac Device Check - Remote Aravind Jimenez MD [address] [facility] 3, [address] [place] [address] Phone: tel: fax: [facility] 3 [address] [facility] [address] [place] [address] Phone: tel: fax: Referral ID Status Reason Start Date Expiration Date Visits Requested Visits Authorized [id number] Authorized Perform Procedure 10/06/2024 10/06/2025 9 9 [facility] [place] [facility] Work Phone: Reason for visit Narrative* Imaging (Routine) - Authorized Specialty Diagnoses / Procedures Referred By Contac t Referred To Contact Pain Medicine / Radiology Diagnoses Lumbar radiculopathy Procedures [place] pain management Reggie Aragon PA-C [address] [place] [address] Phone: tel: fax: [address] [address] Phone: tel: fax: Referral ID Status Reason Start Date Expiration Date Visits Requested Visits Authorized [id number] Authorized Perform Procedure 03/06/2024 03/06/2025 1 1 [facility] [place] [facility] Work Phone: Reason for visit Narrative* Procedure (Routine) - Authorized Specialty Diagnoses / Procedures Referred By Contac t Referred To Contact Pain Medicine / Procedural Diagnoses Lumbar radiculopathy Procedures Transforaminal Reggie Aragon PA-C [address] [place] [address] Phone: tel: fax: [facility] OR [address] [place] [phone] fax: Referral ID Status Reason Start Date Expiration Date Visits Requested Visits Authorized [id number] Authorized Perform Procedure 10/18/2023 10/17/2024 1 1 [facility] [place] [facility] Work Phone: Assessments Diagnosis Arthritis of right knee - Pr imary Spinal stenosis of lumbar re gion Diagnosis Lumbar stenosis with neuroge melissa claudication - Primary Diagnosis Right elbow pain- Primary Pain in joint, upper arm Lateral epicondylitis of right elbow Bursitis/tendonitis, shoulder Unspecified disorders of bursae and tendons in shoulder region Rotator cuff disorder, right Diagnosis Bursitis/tendonitis, shoulder- Primary Unspecified disorders of bursae and tendons in shoulder region Lateral epicondylitis of right elbow Diagnosis Acute pain of right wrist Diagnosis 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, left Contusion of left knee, initial encounter Diagnosis Arthritis of right knee- Primary 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, left Diagnosis Arthritis of right knee 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, left Advance Directives No Advanced Directives Records FoundDocuments on File Type Date 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 Date Activated Date Inactivated Comments 03/13/2018 4:38 PM 01/05/2023 8:12 AM Latest Code Status on File Code Status Date Activated Date Inactivated Comments Full Code 03/13/2018 4:38 PM Latest Code Status on File Code Status Date Activated Date Inactivated Comments Full Code 03/13/2018 4:38 PM Documents on File Type Date 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 Will Power of Quality Review Trainer Documents on File Type Date 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 Will Power of Quality Review Trainer Latest Code Status on File Date Activated Date Inactivated Comments 03/13/2018 4:38 PM Latest Code Status on File Code Status Date Activated Date Inactivated Comments Full Code 03/13/2018 4:38 PM Documents on File Type Date 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 Latest Code Status on File Code Status Date Activated Date Inactivated Comments Full Code 03/13/2018 4:38 PM Latest Code Status on File Code Status Date Activated Date Inactivated Comments Full Code 03/13/2018 4:38 PM 01/05/2023 8:12 AM Date Activated Date Inactivated Comments 03/13/2018 4:38 PM 01/05/2023 8:12 AM Date Activated Date Inactivated Comments 09/26/2024 1:12 PM Question Answer Comments Plan of Care: Code Status Discussion Completed Decision Maker: Patient Date Activated Date Inactivated Comments 09/26/2024 1:12 PM Question Answer Comments Plan of Care: Code Status Discussion Completed Decision Maker: Patient Discharge Instructions * Zuly Carrasco CNP - 03/12/2018 Dr. Hilton-lumbar discectomy fusion SPINE SURGERY HOME CARE INSTRUCTIONS Incision Care- -Maintain dressing for 5 days then may remove -You may shower after 5 days. -Keep the incision clean, dry & without a dressing as able. -There are yaneth covering your incision. They will be removed at your post op visit. -Swelling with redness are normal for 2-3 weeks. Swelling can remain up to 2-3 months. Activity -Rest! The healing process is now beginning and it takes time. -As the nerves heal, you can expect pain, tingling or numbness to recur at any time without warningduring the next 3 to 4 weeks. -No lifting more than 10 lbs. A gallon of milk weighs approximately 9 lbs. -Avoid bending, twisting or chores until your first office appointment. -Walking is good exercise, but don't push it. -If you overdo any activity, pain, numbness and tingling may recur or worsen. This is not dangerousbut avoid activities that seem to bring these symptoms on. -Place ice or heat on the incision as frequently as tolerated for pain. -Some increase in pain can be expected the first few days after surgery. -Sleep on whatever surface is the most comfortable and in the positions of most comfort. -You may climb stairs as needed. -You should avoid car trips for 1 week after surgery. If you are comfortable and not taking narcotic pain meds, you may begin limited driving as tolerated. -No driving while taking narcotics Medications -Use the pain medication one every 4 hours only as needed for pain that is unrelieved with rest, ice and Tylenol. -Pain is a normal defense to protect you during the healing process. -Do not take the pain medication to be able to do more activities! During your time at the hospital, you were identified as being at risk for sleep apnea. Undiagnosedand untreated sleep apnea is very dangerous, especially after surgery and when you are taking any kind of sedating medication, including the prescribed medication given to you after surgery. It can lead to a heart attack, stroke, and even sudden . Therefore, always sleep with your head elevated (not just with pillows; the actual bed must be elevated), avoid sedating medications and alcohol at bedtime, take the least amount of the prescribed medication for the least amount of time possible,and contact your family practitioner to arrange for an outpatient sleep study. in this encounter Summary Purpose Family History No Family History Records Found Mother Name Dates Details Family history of cerebrovas cular accident (CVA)(V17.1, Z82.3) Status:Active Family history of Status:Active Sister Name Dates Details Family history of type 2 miguel betes mellitus(V18.0, Z83.3) Status:Active Family history of Status:Active Brother Name Dates Details Family history of acute myoc ardial infarction(V17.3, Z82.49) Status:Active Family history of renal fail ure(V18.69, Z84.1) Status:Active Family history of coronary a rtery disease(V17.3, Z82.49) Status:Active Family history of type 2 miguel betes mellitus(V18.0, Z83.3) Status:Active Family history of Status:Active Mother Name Dates Details Family history of cerebrovas cular accident (CVA)(V17.1, Z82.3) Status:Active Family history of Status:Active Sister Name Dates Details Family history of type 2 miguel betes mellitus(V18.0, Z83.3) Status:Active Family history of Status:Active Brother Name Dates Details Family history of acute myoc ardial infarction(V17.3, Z82.49) Status:Active Family history of renal fail ure(V18.69, Z84.1) Status:Active Family history of coronary a rtery disease(V17.3, Z82.49) Status:Active Family history of type 2 miguel betes mellitus(V18.0, Z83.3) Status:Active Family history of Status:Active Mother Name Dates Details Family history of cerebrovas cular accident (CVA)(V17.1, Z82.3) Status:Active Family history of (7 99.9, R99) Status:Active Sister Name Dates Details Family history of type 2 miguel betes mellitus(V18.0, Z83.3) Status:Active Family history of (7 99.9, R99) Status:Active Brother Name Dates Details Family history of acute myoc ardial infarction(V17.3, Z82.49) Status:Active Family history of renal fail ure(V18.69, Z84.1) Status:Active Family history of coronary a rtery disease(V17.3, Z82.49) Status:Active Family history of type 2 miguel betes mellitus(V18.0, Z83.3) Status:Active Family history of (7 99.9, R99) Status:Active Unknown Family Member Name Dates Details Family history of cerebrovas cular accident (CVA): Mother(V17.1, Z82.3) Status:Active Family history of acute myoc ardial infarction: Brother(V17.3, Z82.49) Status:Active Family history of renal fail ure: Brother(V18.69, Z84.1) Status:Active Family history of coronary a rtery disease: Brother(V17.3, Z82.49) Status:Active Family history of type 2 miguel betes mellitus: Sister, Brother(V18.0, Z83.3) Status:Active : Mother, Sister, Br other Status:Active Unknown Family Member Name Dates Details Family history of cerebrovas cular accident (CVA): Mother(V17.1, Z82.3) Status:Active Family history of acute myoc ardial infarction: Brother(V17.3, Z82.49) Status:Active Family history of renal fail ure: Brother(V18.69, Z84.1) Status:Active Family history of coronary a rtery disease: Brother(V17.3, Z82.49) Status:Active Family history of type 2 miguel betes mellitus: Sister, Brother(V18.0, Z83.3) Status:Active : Mother, Sister, Br other Status:Active Unknown Family Member Name Dates Details Family history of cerebrovas cular accident (CVA): Mother(V17.1, Z82.3) Status:Active Family history of acute myoc ardial infarction: Brother(V17.3, Z82.49) Status:Active Family history of renal fail ure: Brother(V18.69, Z84.1) Status:Active Family history of coronary a rtery disease: Brother(V17.3, Z82.49) Status:Active Family history of type 2 miguel betes mellitus: Sister, Brother(V18.0, Z83.3) Status:Active : Mother, Sister, Br other Status:Active Unknown Family Member Name Dates Details : Mother, Sister, Br other Status:Active Family history of type 2 miguel betes mellitus: Sister, Brother(V18.0, Z83.3) Status:Active Family history of coronary a rtery disease: Brother(V17.3, Z82.49) Status:Active Family history of renal fail ure: Brother(V18.69, Z84.1) Status:Active Family history of acute myoc ardial infarction: Brother(V17.3, Z82.49) Status:Active Family history of cerebrovas cular accident (CVA): Mother(V17.1, Z82.3) Status:Active Unknown Family Member Name Dates Details Family history of cerebrovas cular accident (CVA): Mother(V17.1, Z82.3) Status:Active Family history of acute myoc ardial infarction: Brother(V17.3, Z82.49) Status:Active Family history of renal fail ure: Brother(V18.69, Z84.1) Status:Active Family history of coronary a rtery disease: Brother(V17.3, Z82.49) Status:Active Family history of type 2 miguel betes mellitus: Sister, Brother(V18.0, Z83.3) Status:Active : Mother, Sister, Br other Status:Active Unknown Family Member Name Dates Details Family history of cerebrovas cular accident (CVA): Mother(V17.1, Z82.3) Status:Active Family history of acute myoc ardial infarction: Brother(V17.3, Z82.49) Status:Active Family history of renal fail ure: Brother(V18.69, Z84.1) Status:Active Family history of coronary a rtery disease: Brother(V17.3, Z82.49) Status:Active Family history of type 2 miguel betes mellitus: Sister, Brother(V18.0, Z83.3) Status:Active : Mother, Sister, Br other Status:Active Unknown Family Member Name Dates Details Family history of cerebrovas cular accident (CVA): Mother(V17.1, Z82.3) Status:Active Family history of acute myoc ardial infarction: Brother(V17.3, Z82.49) Status:Active Family history of renal fail ure: Brother(V18.69, Z84.1) Status:Active Family history of coronary a rtery disease: Brother(V17.3, Z82.49) Status:Active Family history of type 2 miguel betes mellitus: Sister, Brother(V18.0, Z83.3) Status:Active : Mother, Sister, Br other Status:Active Unknown Family Member Name Dates Details Family history of cerebrovas cular accident (CVA): Mother(V17.1, Z82.3) Status:Active Family history of acute myoc ardial infarction: Brother(V17.3, Z82.49) Status:Active Family history of renal fail ure: Brother(V18.69, Z84.1) Status:Active Family history of coronary a rtery disease: Brother(V17.3, Z82.49) Status:Active Family history of type 2 miguel betes mellitus: Sister, Brother(V18.0, Z83.3) Status:Active : Mother, Sister, Br other Status:Active Unknown Family Member Name Dates Details Family history of cerebrovas cular accident (CVA): Mother(V17.1, Z82.3) Status:Active Family history of acute myoc ardial infarction: Brother(V17.3, Z82.49) Status:Active Family history of renal fail ure: Brother(V18.69, Z84.1) Status:Active Family history of coronary a rtery disease: Brother(V17.3, Z82.49) Status:Active Family history of type 2 miguel betes mellitus: Sister, Brother(V18.0, Z83.3) Status:Active : Mother, Sister, Br other Status:Active Unknown Family Member Name Dates Details : Mother, Sister, Br other Status:Active Family history of type 2 miguel betes mellitus: Sister, Brother(V18.0, Z83.3) Status:Active Family history of coronary a rtery disease: Brother(V17.3, Z82.49) Status:Active Family history of renal fail ure: Brother(V18.69, Z84.1) Status:Active Family history of acute myoc ardial infarction: Brother(V17.3, Z82.49) Status:Active Family history of cerebrovas cular accident (CVA): Mother(V17.1, Z82.3) Status:Active Unknown Family Member Name Dates Details : Mother, Sister, Br other Status:Active Family history of type 2 miguel betes mellitus: Sister, Brother(V18.0, Z83.3) Status:Active Family history of coronary a rtery disease: Brother(V17.3, Z82.49) Status:Active Family history of renal fail ure: Brother(V18.69, Z84.1) Status:Active Family history of acute myoc ardial infarction: Brother(V17.3, Z82.49) Status:Active Family history of cerebrovas cular accident (CVA): Mother(V17.1, Z82.3) Status:Active Unknown Family Member Name Dates Details Family history of cerebrovas cular accident (CVA): Mother(V17.1, Z82.3) Status:Active Family history of acute myoc ardial infarction: Brother(V17.3, Z82.49) Status:Active Family history of renal fail ure: Brother(V18.69, Z84.1) Status:Active Family history of coronary a rtery disease: Brother(V17.3, Z82.49) Status:Active Family history of type 2 miguel betes mellitus: Sister, Brother(V18.0, Z83.3) Status:Active : Mother, Sister, Br other Status:Active Unknown Family Member Name Dates Details Family history of cerebrovas cular accident (CVA): Mother(V17.1, Z82.3) Status:Active Family history of acute myoc ardial infarction: Brother(V17.3, Z82.49) Status:Active Family history of renal fail ure: Brother(V18.69, Z84.1) Status:Active Family history of coronary a rtery disease: Brother(V17.3, Z82.49) Status:Active Family history of type 2 miguel betes mellitus: Sister, Brother(V18.0, Z83.3) Status:Active : Mother, Sister, Br other Status:Active Unknown Family Member Name Dates Details : Mother, Sister, Br other Status:Active Family history of type 2 miguel betes mellitus: Sister, Brother(V18.0, Z83.3) Status:Active Family history of coronary a rtery disease: Brother(V17.3, Z82.49) Status:Active Family history of renal fail ure: Brother(V18.69, Z84.1) Status:Active Family history of acute myoc ardial infarction: Brother(V17.3, Z82.49) Status:Active Family history of cerebrovas cular accident (CVA): Mother(V17.1, Z82.3) Status:Active Unknown Family Member Name Dates Details Family history of cerebrovas cular accident (CVA): Mother(V17.1, Z82.3) Status:Active Family history of acute myoc ardial infarction: Brother(V17.3, Z82.49) Status:Active Family history of renal fail ure: Brother(V18.69, Z84.1) Status:Active Family history of coronary a rtery disease: Brother(V17.3, Z82.49) Status:Active Family history of type 2 miguel betes mellitus: Sister, Brother(V18.0, Z83.3) Status:Active : Mother, Sister, Br other Status:Active Unknown Family Member Name Dates Details : Mother, Sister, Br other Status:Active Family history of type 2 miguel betes mellitus: Sister, Brother(V18.0, Z83.3) Status:Active Family history of coronary a rtery disease: Brother(V17.3, Z82.49) Status:Active Family history of renal fail ure: Brother(V18.69, Z84.1) Status:Active Family history of acute myoc ardial infarction: Brother(V17.3, Z82.49) Status:Active Family history of cerebrovas cular accident (CVA): Mother(V17.1, Z82.3) Status:Active Unknown Family Member Name Dates Details Family history of cerebrovas cular accident (CVA): Mother(V17.1, Z82.3) Status:Active Family history of acute myoc ardial infarction: Brother(V17.3, Z82.49) Status:Active Family history of renal fail ure: Brother(V18.69, Z84.1) Status:Active Family history of coronary a rtery disease: Brother(V17.3, Z82.49) Status:Active Family history of type 2 miguel betes mellitus: Sister, Brother(V18.0, Z83.3) Status:Active : Mother, Sister, Br other Status:Active Unknown Family Member Name Dates Details Family history of cerebrovas cular accident (CVA): Mother(V17.1, Z82.3) Status:Active Family history of acute myoc ardial infarction: Brother(V17.3, Z82.49) Status:Active Family history of renal fail ure: Brother(V18.69, Z84.1) Status:Active Family history of coronary a rtery disease: Brother(V17.3, Z82.49) Status:Active Family history of type 2 miguel betes mellitus: Sister, Brother(V18.0, Z83.3) Status:Active : Mother, Sister, Br other Status:Active Unknown Family Member Name Dates Details Family history of coronary a rtery disease: Brother(V17.3, Z82.49) Status:Active Family history of type 2 miguel betes mellitus: Sister, Brother(V18.0, Z83.3) Status:Active : Mother, Sister, Br other Status:Active Family history of renal fail ure: Brother(V18.69, Z84.1) Status:Active Family history of acute myoc ardial infarction: Brother(V17.3, Z82.49) Status:Active Family history of cerebrovas cular accident (CVA): Mother(V17.1, Z82.3) Status:Active Unknown Family Member Name Dates Details Family history of cerebrovas cular accident (CVA): Mother(V17.1, Z82.3) Status:Active Family history of acute myoc ardial infarction: Brother(V17.3, Z82.49) Status:Active Family history of renal fail ure: Brother(V18.69, Z84.1) Status:Active Family history of coronary a rtery disease: Brother(V17.3, Z82.49) Status:Active Family history of type 2 miguel betes mellitus: Sister, Brother(V18.0, Z83.3) Status:Active : Mother, Sister, Br other Status:Active Unknown Family Member Name Dates Details Family history of cerebrovas cular accident (CVA): Mother(V17.1, Z82.3) Status:Active Family history of acute myoc ardial infarction: Brother(V17.3, Z82.49) Status:Active Family history of renal fail ure: Brother(V18.69, Z84.1) Status:Active Family history of coronary a rtery disease: Brother(V17.3, Z82.49) Status:Active Family history of type 2 miguel betes mellitus: Sister, Brother(V18.0, Z83.3) Status:Active : Mother, Sister, Br other Status:Active Unknown Family Member Name Dates Details Family history of cerebrovas cular accident (CVA): Mother(V17.1, Z82.3) Status:Active Family history of acute myoc ardial infarction: Brother(V17.3, Z82.49) Status:Active Family history of renal fail ure: Brother(V18.69, Z84.1) Status:Active Family history of coronary a rtery disease: Brother(V17.3, Z82.49) Status:Active Family history of type 2 miguel betes mellitus: Sister, Brother(V18.0, Z83.3) Status:Active : Mother, Sister, Br other Status:Active Unknown Family Member Name Dates Details Family history of cerebrovas cular accident (CVA): Mother(V17.1, Z82.3) Status:Active Family history of acute myoc ardial infarction: Brother(V17.3, Z82.49) Status:Active Family history of renal fail ure: Brother(V18.69, Z84.1) Status:Active Family history of coronary a rtery disease: Brother(V17.3, Z82.49) Status:Active Family history of type 2 miguel betes mellitus: Sister, Brother(V18.0, Z83.3) Status:Active : Mother, Sister, Br other Status:Active Unknown Family Member Name Dates Details Family history of coronary a rtery disease: Brother(V17.3, Z82.49) Status:Active Family history of type 2 miguel betes mellitus: Sister, Brother(V18.0, Z83.3) Status:Active : Mother, Sister, Br other Status:Active Family history of renal fail ure: Brother(V18.69, Z84.1) Status:Active Family history of acute myoc ardial infarction: Brother(V17.3, Z82.49) Status:Active Family history of cerebrovas cular accident (CVA): Mother(V17.1, Z82.3) Status:Active Unknown Family Member Name Dates Details Family history of cerebrovas cular accident (CVA): Mother(V17.1, Z82.3) Status:Active Family history of acute myoc ardial infarction: Brother(V17.3, Z82.49) Status:Active Family history of renal fail ure: Brother(V18.69, Z84.1) Status:Active Family history of coronary a rtery disease: Brother(V17.3, Z82.49) Status:Active Family history of type 2 miguel betes mellitus: Sister, Brother(V18.0, Z83.3) Status:Active : Mother, Sister, Br other Status:Active Unknown Family Member Name Dates Details Family history of cerebrovas cular accident (CVA): Mother(V17.1, Z82.3) Status:Active Family history of acute myoc ardial infarction: Brother(V17.3, Z82.49) Status:Active Family history of renal fail ure: Brother(V18.69, Z84.1) Status:Active Family history of coronary a rtery disease: Brother(V17.3, Z82.49) Status:Active Family history of type 2 miguel betes mellitus: Sister, Brother(V18.0, Z83.3) Status:Active : Mother, Sister, Br other Status:Active Unknown Family Member Name Dates Details Family history of cerebrovas cular accident (CVA): Mother(V17.1, Z82.3) Status:Active Family history of acute myoc ardial infarction: Brother(V17.3, Z82.49) Status:Active Family history of renal fail ure: Brother(V18.69, Z84.1) Status:Active Family history of coronary a rtery disease: Brother(V17.3, Z82.49) Status:Active Family history of type 2 miguel betes mellitus: Sister, Brother(V18.0, Z83.3) Status:Active : Mother, Sister, Br other Status:Active Unknown Family Member Name Dates Details Family history of coronary a rtery disease: Brother(V17.3, Z82.49) Status:Active Family history of type 2 miguel betes mellitus: Sister, Brother(V18.0, Z83.3) Status:Active : Mother, Sister, Br other Status:Active Family history of renal fail ure: Brother(V18.69, Z84.1) Status:Active Family history of acute myoc ardial infarction: Brother(V17.3, Z82.49) Status:Active Family history of cerebrovas cular accident (CVA): Mother(V17.1, Z82.3) Status:Active Unknown Family Member Name Dates Details : Mother, Sister, Br other Status:Active Family history of type 2 miguel betes mellitus: Sister, Brother(V18.0, Z83.3) Status:Active Family history of coronary a rtery disease: Brother(V17.3, Z82.49) Status:Active Family history of renal fail ure: Brother(V18.69, Z84.1) Status:Active Family history of acute myoc ardial infarction: Brother(V17.3, Z82.49) Status:Active Family history of cerebrovas cular accident (CVA): Mother(V17.1, Z82.3) Status:Active Unknown Family Member Name Dates Details Family history of cerebrovas cular accident (CVA): Mother(V17.1, Z82.3) Status:Active Family history of acute myoc ardial infarction: Brother(V17.3, Z82.49) Status:Active Family history of renal fail ure: Brother(V18.69, Z84.1) Status:Active Family history of coronary a rtery disease: Brother(V17.3, Z82.49) Status:Active Family history of type 2 miguel betes mellitus: Sister, Brother(V18.0, Z83.3) Status:Active : Mother, Sister, Br other Status:Active Unknown Family Member Name Dates Details : Mother, Sister, Br other Status:Active Family history of type 2 miguel betes mellitus: Sister, Brother(V18.0, Z83.3) Status:Active Family history of coronary a rtery disease: Brother(V17.3, Z82.49) Status:Active Family history of renal fail ure: Brother(V18.69, Z84.1) Status:Active Family history of acute myoc ardial infarction: Brother(V17.3, Z82.49) Status:Active Family history of cerebrovas cular accident (CVA): Mother(V17.1, Z82.3) Status:Active Unknown Family Member Name Dates Details Family history of cerebrovas cular accident (CVA): Mother(V17.1, Z82.3) Status:Active Family history of acute myoc ardial infarction: Brother(V17.3, Z82.49) Status:Active Family history of renal fail ure: Brother(V18.69, Z84.1) Status:Active Family history of coronary a rtery disease: Brother(V17.3, Z82.49) Status:Active Family history of type 2 miguel betes mellitus: Sister, Brother(V18.0, Z83.3) Status:Active : Mother, Sister, Br other Status:Active Unknown Family Member Name Dates Details : Mother, Sister, Br other Status:Active Family history of type 2 miguel betes mellitus: Sister, Brother(V18.0, Z83.3) Status:Active Family history of coronary a rtery disease: Brother(V17.3, Z82.49) Status:Active Family history of renal fail ure: Brother(V18.69, Z84.1) Status:Active Family history of acute myoc ardial infarction: Brother(V17.3, Z82.49) Status:Active Family history of cerebrovas cular accident (CVA): Mother(V17.1, Z82.3) Status:Active Unknown Family Member Name Dates Details : Mother, Sister, Br other Status:Active Family history of type 2 miguel betes mellitus: Sister, Brother(V18.0, Z83.3) Status:Active Family history of coronary a rtery disease: Brother(V17.3, Z82.49) Status:Active Family history of renal fail ure: Brother(V18.69, Z84.1) Status:Active Family history of acute myoc ardial infarction: Brother(V17.3, Z82.49) Status:Active Family history of cerebrovas cular accident (CVA): Mother(V17.1, Z82.3) Status:Active Unknown Family Member Name Dates Details Family history of cerebrovas cular accident (CVA): Mother(V17.1, Z82.3) Status:Active Family history of acute myoc ardial infarction: Brother(V17.3, Z82.49) Status:Active Family history of renal fail ure: Brother(V18.69, Z84.1) Status:Active Family history of coronary a rtery disease: Brother(V17.3, Z82.49) Status:Active Family history of type 2 miguel betes mellitus: Sister, Brother(V18.0, Z83.3) Status:Active : Mother, Sister, Br other Status:Active Unknown Family Member Name Dates Details Family history of cerebrovas cular accident (CVA): Mother(V17.1, Z82.3) Status:Active Family history of acute myoc ardial infarction: Brother(V17.3, Z82.49) Status:Active Family history of renal fail ure: Brother(V18.69, Z84.1) Status:Active Family history of coronary a rtery disease: Brother(V17.3, Z82.49) Status:Active Family history of type 2 miguel betes mellitus: Sister, Brother(V18.0, Z83.3) Status:Active : Mother, Sister, Br other Status:Active Unknown Family Member Name Dates Details Family history of cerebrovas cular accident (CVA): Mother(V17.1, Z82.3) Status:Active Family history of acute myoc ardial infarction: Brother(V17.3, Z82.49) Status:Active Family history of renal fail ure: Brother(V18.69, Z84.1) Status:Active Family history of coronary a rtery disease: Brother(V17.3, Z82.49) Status:Active Family history of type 2 miguel betes mellitus: Sister, Brother(V18.0, Z83.3) Status:Active : Mother, Sister, Br other Status:Active Unknown Family Member Name Dates Details Family history of cerebrovas cular accident (CVA): Mother(V17.1, Z82.3) Status:Active Family history of acute myoc ardial infarction: Brother(V17.3, Z82.49) Status:Active Family history of renal fail ure: Brother(V18.69, Z84.1) Status:Active Family history of coronary a rtery disease: Brother(V17.3, Z82.49) Status:Active Family history of type 2 miguel betes mellitus: Sister, Brother(V18.0, Z83.3) Status:Active : Mother, Sister, Br other Status:Active Unknown Family Member Name Dates Details : Mother, Sister, Br other Status:Active Family history of type 2 miguel betes mellitus: Sister, Brother(V18.0, Z83.3) Status:Active Family history of coronary a rtery disease: Brother(V17.3, Z82.49) Status:Active Family history of renal fail ure: Brother(V18.69, Z84.1) Status:Active Family history of acute myoc ardial infarction: Brother(V17.3, Z82.49) Status:Active Family history of cerebrovas cular accident (CVA): Mother(V17.1, Z82.3) Status:Active Unknown Family Member Name Dates Details Family history of cerebrovas cular accident (CVA): Mother(V17.1, Z82.3) Status:Active Family history of acute myoc ardial infarction: Brother(V17.3, Z82.49) Status:Active Family history of renal fail ure: Brother(V18.69, Z84.1) Status:Active Family history of coronary a rtery disease: Brother(V17.3, Z82.49) Status:Active Family history of type 2 miguel betes mellitus: Sister, Brother(V18.0, Z83.3) Status:Active : Mother, Sister, Br other Status:Active Unknown Family Member Name Dates Details Family history of cerebrovas cular accident (CVA): Mother(V17.1, Z82.3) Status:Active Family history of acute myoc ardial infarction: Brother(V17.3, Z82.49) Status:Active Family history of renal fail ure: Brother(V18.69, Z84.1) Status:Active Family history of coronary a rtery disease: Brother(V17.3, Z82.49) Status:Active Family history of type 2 miguel betes mellitus: Sister, Brother(V18.0, Z83.3) Status:Active : Mother, Sister, Br other Status:Active Unknown Family Member Name Dates Details : Mother, Sister, Br other Status:Active Family history of type 2 miguel betes mellitus: Sister, Brother(V18.0, Z83.3) Status:Active Family history of coronary a rtery disease: Brother(V17.3, Z82.49) Status:Active Family history of renal fail ure: Brother(V18.69, Z84.1) Status:Active Family history of acute myoc ardial infarction: Brother(V17.3, Z82.49) Status:Active Family history of cerebrovas cular accident (CVA): Mother(V17.1, Z82.3) Status:Active Unknown Family Member Name Dates Details Family history of cerebrovas cular accident (CVA): Mother(V17.1, Z82.3) Status:Active Family history of acute myoc ardial infarction: Brother(V17.3, Z82.49) Status:Active Family history of renal fail ure: Brother(V18.69, Z84.1) Status:Active Family history of coronary a rtery disease: Brother(V17.3, Z82.49) Status:Active Family history of type 2 miguel betes mellitus: Sister, Brother(V18.0, Z83.3) Status:Active : Mother, Sister, Br other Status:Active Unknown Family Member Name Dates Details Family history of cerebrovas cular accident (CVA): Mother(V17.1, Z82.3) Status:Active Family history of acute myoc ardial infarction: Brother(V17.3, Z82.49) Status:Active Family history of renal fail ure: Brother(V18.69, Z84.1) Status:Active Family history of coronary a rtery disease: Brother(V17.3, Z82.49) Status:Active Family history of type 2 miguel betes mellitus: Sister, Brother(V18.0, Z83.3) Status:Active : Mother, Sister, Br other Status:Active Unknown Family Member Name Dates Details Family history of cerebrovas cular accident (CVA): Mother(V17.1, Z82.3) Status:Active Family history of acute myoc ardial infarction: Brother(V17.3, Z82.49) Status:Active Family history of renal fail ure: Brother(V18.69, Z84.1) Status:Active Family history of coronary a rtery disease: Brother(V17.3, Z82.49) Status:Active Family history of type 2 miguel betes mellitus: Sister, Brother(V18.0, Z83.3) Status:Active : Mother, Sister, Br other Status:Active Unknown Family Member Name Dates Details : Mother, Sister, Br other Status:Active Family history of type 2 miguel betes mellitus: Sister, Brother(V18.0, Z83.3) Status:Active Family history of coronary a rtery disease: Brother(V17.3, Z82.49) Status:Active Family history of renal fail ure: Brother(V18.69, Z84.1) Status:Active Family history of acute myoc ardial infarction: Brother(V17.3, Z82.49) Status:Active Family history of cerebrovas cular accident (CVA): Mother(V17.1, Z82.3) Status:Active Unknown Family Member Name Dates Details Family history of cerebrovas cular accident (CVA): Mother(V17.1, Z82.3) Status:Active Family history of acute myoc ardial infarction: Brother(V17.3, Z82.49) Status:Active Family history of renal fail ure: Brother(V18.69, Z84.1) Status:Active Family history of coronary a rtery disease: Brother(V17.3, Z82.49) Status:Active Family history of type 2 miguel betes mellitus: Sister, Brother(V18.0, Z83.3) Status:Active : Mother, Sister, Br other Status:Active Unknown Family Member Name Dates Details : Mother, Sister, Br other Status:Active Family history of type 2 miguel betes mellitus: Sister, Brother(V18.0, Z83.3) Status:Active Family history of coronary a rtery disease: Brother(V17.3, Z82.49) Status:Active Family history of renal fail ure: Brother(V18.69, Z84.1) Status:Active Family history of acute myoc ardial infarction: Brother(V17.3, Z82.49) Status:Active Family history of cerebrovas cular accident (CVA): Mother(V17.1, Z82.3) Status:Active Unknown Family Member Name Dates Details Family history of cerebrovas cular accident (CVA): Mother(V17.1, Z82.3) Status:Active Family history of acute myoc ardial infarction: Brother(V17.3, Z82.49) Status:Active Family history of renal fail ure: Brother(V18.69, Z84.1) Status:Active Family history of coronary a rtery disease: Brother(V17.3, Z82.49) Status:Active Family history of type 2 miguel betes mellitus: Sister, Brother(V18.0, Z83.3) Status:Active : Mother, Sister, Br other Status:Active Unknown Family Member Name Dates Details Family history of cerebrovas cular accident (CVA): Mother(V17.1, Z82.3) Status:Active Family history of acute myoc ardial infarction: Brother(V17.3, Z82.49) Status:Active Family history of renal fail ure: Brother(V18.69, Z84.1) Status:Active Family history of coronary a rtery disease: Brother(V17.3, Z82.49) Status:Active Family history of type 2 miguel betes mellitus: Sister, Brother(V18.0, Z83.3) Status:Active : Mother, Sister, Br other Status:Active Unknown Family Member Name Dates Details Family history of cerebrovas cular accident (CVA): Mother(V17.1, Z82.3) Status:Active Family history of acute myoc ardial infarction: Brother(V17.3, Z82.49) Status:Active Family history of renal fail ure: Brother(V18.69, Z84.1) Status:Active Family history of coronary a rtery disease: Brother(V17.3, Z82.49) Status:Active Family history of type 2 miguel betes mellitus: Sister, Brother(V18.0, Z83.3) Status:Active : Mother, Sister, Br other Status:Active Unknown Family Member Name Dates Details Family history of cerebrovas cular accident (CVA): Mother(V17.1, Z82.3) Status:Active Family history of acute myoc ardial infarction: Brother(V17.3, Z82.49) Status:Active Family history of renal fail ure: Brother(V18.69, Z84.1) Status:Active Family history of coronary a rtery disease: Brother(V17.3, Z82.49) Status:Active Family history of type 2 miguel betes mellitus: Sister, Brother(V18.0, Z83.3) Status:Active : Mother, Sister, Br other Status:Active Unknown Family Member Name Dates Details Family history of cerebrovas cular accident (CVA): Mother(V17.1, Z82.3) Status:Active Family history of acute myoc ardial infarction: Brother(V17.3, Z82.49) Status:Active Family history of renal fail ure: Brother(V18.69, Z84.1) Status:Active Family history of coronary a rtery disease: Brother(V17.3, Z82.49) Status:Active Family history of type 2 miguel betes mellitus: Sister, Brother(V18.0, Z83.3) Status:Active : Mother, Sister, Br other Status:Active Unknown Family Member Name Dates Details Family history of cerebrovas cular accident (CVA): Mother(V17.1, Z82.3) Status:Active Family history of acute myoc ardial infarction: Brother(V17.3, Z82.49) Status:Active Family history of renal fail ure: Brother(V18.69, Z84.1) Status:Active Family history of coronary a rtery disease: Brother(V17.3, Z82.49) Status:Active Family history of type 2 miguel betes mellitus: Sister, Brother(V18.0, Z83.3) Status:Active : Mother, Sister, Br other Status:Active Unknown Family Member Name Dates Details Family history of cerebrovas cular accident (CVA): Mother(V17.1, Z82.3) Status:Active Family history of acute myoc ardial infarction: Brother(V17.3, Z82.49) Status:Active Family history of renal fail ure: Brother(V18.69, Z84.1) Status:Active Family history of coronary a rtery disease: Brother(V17.3, Z82.49) Status:Active Family history of type 2 miguel betes mellitus: Sister, Brother(V18.0, Z83.3) Status:Active : Mother, Sister, Br other Status:Active Unknown Family Member Name Dates Details : Mother, Sister, Br other Status:Active Family history of type 2 miguel betes mellitus: Sister, Brother(V18.0, Z83.3) Status:Active Family history of coronary a rtery disease: Brother(V17.3, Z82.49) Status:Active Family history of renal fail ure: Brother(V18.69, Z84.1) Status:Active Family history of acute myoc ardial infarction: Brother(V17.3, Z82.49) Status:Active Family history of cerebrovas cular accident (CVA): Mother(V17.1, Z82.3) Status:Active Unknown Family Member Name Dates Details Family history of cerebrovas cular accident (CVA): Mother(V17.1, Z82.3) Status:Active Family history of acute myoc ardial infarction: Brother(V17.3, Z82.49) Status:Active Family history of renal fail ure: Brother(V18.69, Z84.1) Status:Active Family history of coronary a rtery disease: Brother(V17.3, Z82.49) Status:Active Family history of type 2 miguel betes mellitus: Sister, Brother(V18.0, Z83.3) Status:Active : Mother, Sister, Br other Status:Active Unknown Family Member Name Dates Details : Mother, Sister, Br other Status:Active Family history of type 2 miguel betes mellitus: Sister, Brother(V18.0, Z83.3) Status:Active Family history of coronary a rtery disease: Brother(V17.3, Z82.49) Status:Active Family history of renal fail ure: Brother(V18.69, Z84.1) Status:Active Family history of acute myoc ardial infarction: Brother(V17.3, Z82.49) Status:Active Family history of cerebrovas cular accident (CVA): Mother(V17.1, Z82.3) Status:Active Unknown Family Member Name Dates Details Family history of cerebrovas cular accident (CVA): Mother(V17.1, Z82.3) Status:Active Family history of acute myoc ardial infarction: Brother(V17.3, Z82.49) Status:Active Family history of renal fail ure: Brother(V18.69, Z84.1) Status:Active Family history of coronary a rtery disease: Brother(V17.3, Z82.49) Status:Active Family history of type 2 miguel betes mellitus: Sister, Brother(V18.0, Z83.3) Status:Active : Mother, Sister, Br other Status:Active Unknown Family Member Name Dates Details Family history of cerebrovas cular accident (CVA): Mother(V17.1, Z82.3) Status:Active Family history of acute myoc ardial infarction: Brother(V17.3, Z82.49) Status:Active Family history of renal fail ure: Brother(V18.69, Z84.1) Status:Active Family history of coronary a rtery disease: Brother(V17.3, Z82.49) Status:Active Family history of type 2 miguel betes mellitus: Sister, Brother(V18.0, Z83.3) Status:Active : Mother, Sister, Br other Status:Active Unknown Family Member Name Dates Details Family history of cerebrovas cular accident (CVA): Mother(V17.1, Z82.3) Status:Active Family history of acute myoc ardial infarction: Brother(V17.3, Z82.49) Status:Active Family history of renal fail ure: Brother(V18.69, Z84.1) Status:Active Family history of coronary a rtery disease: Brother(V17.3, Z82.49) Status:Active Family history of type 2 miguel betes mellitus: Sister, Brother(V18.0, Z83.3) Status:Active : Mother, Sister, Br other Status:Active Unknown Family Member Name Dates Details Family history of cerebrovas cular accident (CVA): Mother(V17.1, Z82.3) Status:Active Family history of acute myoc ardial infarction: Brother(V17.3, Z82.49) Status:Active Family history of renal fail ure: Brother(V18.69, Z84.1) Status:Active Family history of coronary a rtery disease: Brother(V17.3, Z82.49) Status:Active Family history of type 2 miguel betes mellitus: Sister, Brother(V18.0, Z83.3) Status:Active : Mother, Sister, Br other Status:Active Unknown Family Member Name Dates Details : Mother, Sister, Br other Status:Active Family history of type 2 miguel betes mellitus: Sister, Brother(V18.0, Z83.3) Status:Active Family history of coronary a rtery disease: Brother(V17.3, Z82.49) Status:Active Family history of renal fail ure: Brother(V18.69, Z84.1) Status:Active Family history of acute myoc ardial infarction: Brother(V17.3, Z82.49) Status:Active Family history of cerebrovas cular accident (CVA): Mother(V17.1, Z82.3) Status:Active Unknown Family Member Name Dates Details Family history of cerebrovas cular accident (CVA): Mother(V17.1, Z82.3) Status:Active Family history of acute myoc ardial infarction: Brother(V17.3, Z82.49) Status:Active Family history of renal fail ure: Brother(V18.69, Z84.1) Status:Active Family history of coronary a rtery disease: Brother(V17.3, Z82.49) Status:Active Family history of type 2 miguel betes mellitus: Sister, Brother(V18.0, Z83.3) Status:Active : Mother, Sister, Br other Status:Active Unknown Family Member Name Dates Details Family history of cerebrovas cular accident (CVA): Mother(V17.1, Z82.3) Status:Active Family history of acute myoc ardial infarction: Brother(V17.3, Z82.49) Status:Active Family history of renal fail ure: Brother(V18.69, Z84.1) Status:Active Family history of coronary a rtery disease: Brother(V17.3, Z82.49) Status:Active Family history of type 2 miguel betes mellitus: Sister, Brother(V18.0, Z83.3) Status:Active : Mother, Sister, Br other Status:Active Unknown Family Member Name Dates Details : Mother, Sister, Br other Status:Active Family history of type 2 miguel betes mellitus: Sister, Brother(V18.0, Z83.3) Status:Active Family history of coronary a rtery disease: Brother(V17.3, Z82.49) Status:Active Family history of renal fail ure: Brother(V18.69, Z84.1) Status:Active Family history of acute myoc ardial infarction: Brother(V17.3, Z82.49) Status:Active Family history of cerebrovas cular accident (CVA): Mother(V17.1, Z82.3) Status:Active Unknown Family Member Name Dates Details Family history of cerebrovas cular accident (CVA): Mother(V17.1, Z82.3) Status:Active Family history of acute myoc ardial infarction: Brother(V17.3, Z82.49) Status:Active Family history of renal fail ure: Brother(V18.69, Z84.1) Status:Active Family history of coronary a rtery disease: Brother(V17.3, Z82.49) Status:Active Family history of type 2 miguel betes mellitus: Sister, Brother(V18.0, Z83.3) Status:Active : Mother, Sister, Br other Status:Active Unknown Family Member Name Dates Details : Mother, Sister, Br other Status:Active Family history of type 2 miguel betes mellitus: Sister, Brother(V18.0, Z83.3) Status:Active Family history of coronary a rtery disease: Brother(V17.3, Z82.49) Status:Active Family history of renal fail ure: Brother(V18.69, Z84.1) Status:Active Family history of acute myoc ardial infarction: Brother(V17.3, Z82.49) Status:Active Family history of cerebrovas cular accident (CVA): Mother(V17.1, Z82.3) Status:Active Relationship Condition Age at Onset Recorded Date/T mikey mother Cerebrovascular accident (CVA) Unknown father Diabetes mellitus Unknown sister Diabetes mellitus Unknown brother Myocardial infarction Unknown brother Coronary artery disease Unknown brother Kidney disorder Unknown brother Diabetes mellitus Unknown Reason for Referral Status Reason Specialty Diagnoses / Procedures Referred By Contact Referred To Contact Authorized Physical Therapy / Rehabilitation Diagnoses Lateral epicondylitis of right elbow Bursitis/tendonitis , shoulder Rotator cuff disorder, right Elías Hsu MD [address] [place] [id number] Status Reason Specialty Diagnoses / Procedures Referred By Contact Referred To Contact Authorized Neurology Diagnoses Radiculopathy, unspecified spinal region Neuropathy Chintan Maldonado Jr., DPM [address] [place] [address] [facility] Specialty Diagnoses / Procedures Referred By Contac t Referred To Contact Diagnoses Olecranon bursitis of left elbow Procedures MR Elbow Left Without Contrast Yaritza Luna, GIO [address] [place] [address] Referral ID Status Reason Start Date Expiration Date V isits Requested Visits Authorized [id number] New Request 10/30/2022 10/30/2023 1 1 Specialty Diagnoses / Procedures Referred By Contac t Referred To Contact Radiology Diagnoses Olecranon bursitis of left elbow Procedures MR Elbow Left Without Contrast Yaritza Luna, BUTCHER HELPER [address] [place] [address] Referral ID Status Reason Start Date Expiration Date V isits Requested Visits Authorized [id number] New Request 11/07/2022 11/07/2023 1 1 Specialty Diagnoses / Procedures Referred By Contac t Referred To Contact Radiology Diagnoses Bilateral hip pain Procedures XR pelvis 1-2 views Reggie Aragon PA-C [address] [place] [phone] Referral ID Status Reason Start Date Expiration Date Visits Requested Visits Authorized [id number] Authorized Perform Procedure 08/07/2023 08/06/2024 1 1 Specialty Diagnoses / Procedures Referred By Contac t Referred To Contact Radiology Diagnoses Chronic right-sided low back pain without sciatica Procedures XR lumbar spine 2-3 views Reggie Aragon PA-C [address] [place] [phone] Referral ID Status Reason Start Date Expiration Date Visits Requested Visits Authorized [id number] Authorized Perform Procedure 08/07/2023 08/06/2024 1 1 Specialty Diagnoses / Procedures Referred By Contac t Referred To Contact Radiology Diagnoses Chronic right shoulder pain Arthritis of right shoulder region Procedures XR shoulder right 2+ views Reggie Aragon PA-C [address] [place] [phone] Referral ID Status Reason Start Date Expiration Date Visits Requested Visits Authorized [id number] Authorized Perform Procedure 08/07/2023 08/06/2024 1 1 Specialty Diagnoses / Procedures Referred By Contac t Referred To Contact Radiology Diagnoses Cervical radiculitis Procedures MR cervical spine wo IV contrast Reggie Aragon PA-C [address] [place] [address] Referral ID Status Reason Start Date Expiration Date Visits Requested Visits Authorized [id number] Pending Review Perform Procedure 08/07/2023 08/06/2024 1 1 Specialty Diagnoses / Procedures Referred By Contac t Referred To Contact Radiology Diagnoses Cervical radiculitis Procedures XR cervical spine 2-3 views Reggie Aragon PA-C [address] [place] [address] Referral ID Status Reason Start Date Expiration Date Visits Requested Visits Authorized [id number] Authorized Perform Procedure 08/07/2023 08/06/2024 1 1 Specialty Diagnoses / Procedures Referred By Contac t Referred To Contact Radiology Diagnoses Cervical radiculitis Procedures MR cervical spine wo IV contrast Reggie Aragon PA-C [address] [place] [address] [facility] [address] [place] [address] Referral ID Status Reason Start Date Expiration Date Visits Requested Visits Authorized [id number] Authorized Perform Procedure 08/07/2023 08/06/2024 1 1 Specialty Diagnoses / Procedures Referred By Contac t Referred To Contact Cardiology Diagnoses Pacemaker Sick sinus syndrome (CMS/HCC) Procedures Cardiac Device Check - MRI Aravind Jimenez MD [address] [place] [id number] Referral ID Status Reason Start Date Expiration Date Visits Requested Visits Authorized [id number] Pending Review Perform Procedure 08/27/2023 08/26/2024 1 1 Specialty Diagnoses / Procedures Referred By Contac t Referred To Contact Cardiology Diagnoses Cardiac pacemaker in situ Sinoatrial node dysfunction (CMS/HCC) Procedures Cardiac Device Check - MRI Miguel Hinojosa MD [address] [facility] [address] [place] [address] Referral ID Status Reason Start Date Expiration Date Visits Requested Visits Authorized [id number] Pending Review Perform Procedure 08/14/2023 08/13/2024 1 1 Specialty Diagnoses / Procedures Referred By Contac t Referred To Contact Radiology Diagnoses Lumbar radiculopathy Neurogenic claudication due to lumbar spinal stenosis Cervical radiculitis Procedures MR lumbar spine wo IV contrast Rgegie Aragon PA-C [address] [place] [address] Referral ID Status Reason Start Date Expiration Date Visits Requested Visits Authorized [id number] Pending Review Perform Procedure 09/04/2023 09/03/2024 1 1 Specialty Diagnoses / Procedures Referred By Contac t Referred To Contact Diagnoses Low testosterone in male Tye Anne MD [address] [place] [address] Referral ID Status Reason Start Date Expiration Date V isits Requested Visits Authorized [id number] Pending Review 1 1 Referral ID Status Reason Start Date Expiration Date Visits Requested Visits Authorized [id number] Authorized Perform Procedure 09/04/2023 09/03/2024 1 1 Specialty Diagnoses / Procedures Referred By Contac t Referred To Contact Cardiology Diagnoses Cardiac pacemaker in situ Sinoatrial node dysfunction (CMS/HCC) Procedures Cardiac Device Check - MRI Aravind Jimenez MD [address] [facility] 3, [address] [place] [address] Referral ID Status Reason Start Date Expiration Date Visits Requested Visits Authorized [id number] Pending Review Perform Procedure 09/24/2023 09/23/2024 1 1 Specialty Diagnoses / Procedures Referred By Contac t Referred To Contact Cardiology Diagnoses Pacemaker Sick sinus syndrome (CMS/HCC) Procedures Cardiac Device Check - MRI Maritza Lopes MD [address] [facility], [address] [place] [address] Referral ID Status Reason Start Date Expiration Date Visits Requested Visits Authorized [id number] Pending Review Perform Procedure 09/06/2023 09/05/2024 1 1 Specialty Diagnoses / Procedures Referred By Contac t Referred To Contact Cardiology Diagnoses Cardiac pacemaker in situ Sinoatrial node dysfunction (CMS/HCC) Procedures Cardiac Device Check - Remote Aravind Jimenez MD [address] [facility] [address], [address] [place] [address] Par [id number] Cr Nonv1 [address] [facility] [address] [facility] [address] [place] [address] Referral ID Status Reason Start Date Expiration Date Visits Requested Visits Authorized [id number] Authorized Perform Procedure 09/25/2023 09/24/2024 12 12 Specialty Diagnoses / Procedures Referred By Contac t Referred To Contact Cardiology Diagnoses Sinus node dysfunction (Multi) Pacemaker Procedures Cardiac Device Check - In Clinic Aravind Jimenez MD [address] [facility] 3, [address] [address] Referral ID Status Reason Start Date Expiration Date Visits Requested Visits Authorized [id number] Pending Review Perform Procedure 3 05/13/2024 5 5 Specialty Diagnoses / Procedures Referred By Contac t Referred To Contact Cardiology Diagnoses Bradycardia Pacemaker Procedures Cardiac device check - In Clinic Aravind Jimenez MD [address] [facility] 3, [address] [address] Referral ID Status Reason Start Date Expiration Date Visits Requested Visits Authorized [id number] Pending Review Perform Procedure 3 04/18/2024 5 5 Specialty Diagnoses / Procedures Referred By Contac t Referred To Contact Diagnoses Chronic diastolic congestive heart failure (Multi) Procedures ECG 12 lead (Ancillary Performed) Kathy Treviño, RECORDS MANAGEMENT CLERK-BUTCHER HELPER, DNP [address] [address] Referral ID Status Reason Start Date Expiration Date V isits Requested Visits Authorized [id number] Authorized 10/23/2023 10/22/2024 1 1 Specialty Diagnoses / Procedures Referred By Contac t Referred To Contact Diagnoses Atrial fibrillation, unspecified type (Multi) Procedures ECG 12 lead (Clinic Performed) Octavio Marmolejo, RECORDS MANAGEMENT CLERK-BUTCHER HELPER [address] [facility], [address] [address] Referral ID Status Reason Start Date Expiration Date V isits Requested Visits Authorized [id number] Authorized 11/19/2023 11/18/2024 1 1 Specialty Diagnoses / Procedures Referred By Contac t Referred To Contact [facility] Or [address] [place] [phone] Referral ID Status Reason Start Date Expiration Date V isits Requested Visits Authorized [id number] Pending Review 12/07/2023 12/06/2024 1 1 Specialty Diagnoses / Procedures Referred By Contac t Referred To Contact Pain Medicine / Procedural Diagnoses Lumbar radiculopathy Procedures Transforaminal Reggie Aragon PA-C [address] [place] [address] [address] Referral ID Status Reason Start Date Expiration Date Visits Requested Visits Authorized [id number] Authorized Perform Procedure 10/18/2023 10/17/2024 1 1 Specialty Diagnoses / Procedures Referred By Contac t Referred To Contact Pain Management / Pain Medicine Diagnoses Spinal stenosis of lumbar region, 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 neurogenic claudication present Lumbosacral radiculopathy Elías Hsu MD [address] [place] [phone] Kavin Perea, [address] [place] [address] Referral ID Status Reason Start Date Expiration Date Visits Requested Visits Authorized [id number] Authorized Specialty Services Required/Pat ient's Best Interest 01/21/2024 01/20/2025 1 1 Specialty Diagnoses / Procedures Referred By Contac t Referred To Contact Cardiology Diagnoses Atrial fibrillation, unspecified type (Multi) Bradycardia Sinus node dysfunction (Multi) Chronic heart failure with normal ejection fraction Procedures Transthoracic Echo (TTE) Complete KS ECHO TTHRC R-T 2D W/WOM-MODE COMPL SPEC&COLR D Joel Stroud MD [address] [facility], [address] [address] Referral ID Status Reason Start Date Expiration Date Visits Requested Visits Authorized [id number] Authorized Perform Procedure 03/13/2024 03/13/2025 1 1 Specialty Diagnoses / Procedures Referred By Contac t Referred To Contact Pain Medicine / Radiology Diagnoses Lumbar radiculopathy Procedures FL pain management Reggie Aragon PA-C [address] [place] [address] [address] Referral ID Status Reason Start Date Expiration Date Visits Requested Visits Authorized [id number] Authorized Perform Procedure 03/06/2024 03/06/2025 1 1 Specialty Diagnoses / Procedures Referred By Contac t Referred To Contact Pain Medicine / Procedural Diagnoses Lumbar radiculopathy Procedures Epidural Steroid Injection KS NJX DX/THER SBST INTRLMNR LMBR/SAC W/IMG GDN Reggie Aragon PA-C [address] [place] [address] [phone] Referral ID Status Reason Start Date Expiration Date Visits Requested Visits Authorized [id number] Pending Review Perform Procedure 03/06/2024 03/06/2025 1 1 Specialty Diagnoses / Procedures Referred By Contac t Referred To Contact Cardiology Diagnoses Atrial fibrillation, unspecified type (Multi) Bradycardia Sinus node dysfunction (Multi) Chronic heart failure with normal ejection fraction (Multi) Procedures Transthoracic Echo (TTE) Complete KS ECHO TTHRC R-T 2D W/WOM-MODE COMPL SPEC&COLR D Joel Stroud MD [address], [place] [phone] Referral ID Status Reason Start Date Expiration Date Visits Requested Visits Authorized [id number] Pending Review Perform Procedure 03/13/2024 03/13/2025 1 1 Specialty Diagnoses / Procedures Referred By Contac t Referred To Contact Diagnoses Atrial fibrillation, unspecified type (Multi) Procedures ECG 12 lead (Clinic Performed) Joel Stroud MD [address], [facility] [address] [place] [address] Referral ID Status Reason Start Date Expiration Date V isits Requested Visits Authorized [id number] Authorized 03/13/2024 03/13/2025 1 1 Specialty Diagnoses / Procedures Referred By Contac t Referred To Contact Cardiology Diagnoses Cardiac pacemaker in situ Sinoatrial node dysfunction (Multi) Procedures Cardiac Device Check - Remote Aravind Jimenez MD [address] [place] [address] Par [id number] Cr Nonv1 [address] [facility] [address] [place] [address] History of Present Illness * Elías Hsu MD - 07/29/2018 8:52 AM EST Dictation on: 07/29/2018 8:54 AM by: ELÍAS HSU [[id number]] in this encounter* Elías Hsu MD - 09/09/2018 12:26 PM EDT Dictation on: 09/09/2018 12:27 PM by: ELÍAS HSU [[id number]] in this encounter* Yaritza Luna CNP - 08/18/2019 2:56 PM EST Associated Order(s): MD Linares Injection/Arthrocentesis: R radiocarpal Post-Procedure Diagnose(s): Acute pain of right wrist MD Linares Injection/Arthrocentesis: R radiocarpal Performed by: Yaritza Luna CNP Authorized by: Yaritza Luna CNP CPT 86640 - Medium Joint Arthrocentesis: Time out: Immediately prior to the procedure a time out was called Physician or proceduralist has discussed critical or nonroutine steps, procedure duration and anticipated blood loss: Yes Supporting Documentation: Indications: Pain and diagnostic evaluation Procedure Details: Location: Wrist Site: R radiocarpal Prep: patient was prepped and draped in usual sterile fashion Needle size: 22 G Approach: Dorsal Medications: 40 mg triamcinolone acetonide 40 mg/mL Anesthetic amount (mL): 1 Patient tolerance: Patient tolerated the procedure well with no immediate complications * Yaritza Luna CNP - 08/18/2019 1:45 PM EST Rocio Sandoval 1945 CC: 73 y.o. is a he with right wrist pain. Chief Complaint Patient presents with Right Wrist - Pain . HPI: Patient states that he has had increasing right wrist pain. He has been getting massages and acouple of weeks ago, he had a massage and then had increased swelling and pain in the right wrist. He denies any injury to the wrist. He denies any numbness and tingling in the hand or fingers. He takes pain medications which helps somewhat but the wrist is more swollen now. He denies any decreasedrange of motion, just swollen. PMH: Allergies Allergen Reactions Morphine No Known Allergies Current Outpatient Medications: acetaminophen (TYLENOL ORAL), Take 650 mg by mouth., Disp: , Rfl: ANTIOX #11/OM3/DHA/EPA/LUT/BLAZE (OCUVITE ADULT 50+ ORAL), Take 1 tablet by mouth daily EYE PROMISE., Disp: , Rfl: CALCIUM CARBONATE (CALCIUM ANTACID ORAL), Take 1,000 mg by mouth as needed (heartburn)., Disp: , Rfl: cetirizine (ZYRTEC) 10 MG tablet, Take 10 mg by mouth every morning., Disp: , Rfl: cyclobenzaprine (FLEXERIL) 10 MG tablet, , Disp: , Rfl: gabapentin (NEURONTIN) 300 MG capsule, Take 300 mg by mouth nightly., Disp: , Rfl: BCIXO-IBNQD-4-RZK-KZM-RGOXLR ORAL, Take 300 mg by mouth daily., Disp: , Rfl: lisinopril (PRINIVIL,ZESTRIL) 20 MG tablet, 20 mg every morning ., Disp: , Rfl: metFORMIN (GLUCOPHAGE-XR) 750 MG 24 hr tablet, Take 1 tablet by mouth 2 (two) times a day Take 1 tab bid, Disp: , Rfl: omeprazole (PRILOSEC) 20 MG capsule, Take 1 capsule by mouth every morning ., Disp: , Rfl: oxyCODONE-acetaminophen (PERCOCET) 5-325 mg per tablet, , Disp: , Rfl: oxymetazoline (AFRIN) 0.05 % nasal spray, Instill 2 sprays into each nostril as needed for congestion., Disp: , Rfl: pioglitazone (ACTOS) 15 MG tablet, Take 15 mg by mouth nightly ., Disp: , Rfl: pravastatin (PRAVACHOL) 20 MG tablet, Take 1 tablet by mouth nightly Take one tab qd., Disp: , Rfl: psyllium (METAMUCIL) powder, Take 1 packet by mouth 3 (three) times a day., Disp: , Rfl: sodium phosphates (FLEET ENEMA) 19-7 gram/118 mL Enem, Insert 1 each into the rectum As needed (constipation)., Disp: , Rfl: tamsulosin (FLOMAX) 0.4 mg capsule, every morning before breakfast ., Disp: , Rfl: therapeutic multivitamin (THERAGRAN) tablet, Take 1 tablet by mouth daily, Disp: , Rfl: traMADol (ULTRAM) 50 mg tablet, , Disp: , Rfl: traZODone (DESYREL) 50 MG tablet, TAKE 1 2 (ONE HALF) TABLET BY MOUTH ONCE DAILY AT BEDTIME, Disp: , Rfl: Past Medical History: Diagnosis Date Arthritis Back pain Cataract removed Diabetes mellitus, type 2 (HCC) Dizzy spells Frequent urination GERD (gastroesophageal reflux disease) Hiatal hernia High blood pressure High cholesterol History of stress test 03/08/2018 scheduled at [facility] Kidney stones Lumbar stenosis with neurogenic claudication Nephrolithiasis passed Night sweats Numbness in both hands Peripheral neuropathy numbness fingers, tingling and some numbness left leg and foot Pneumonia in infectious disease PONV (postoperative nausea and vomiting) Ringing in ears Shortness of breath on exertion Urinary urgency Vision problem Past Surgical History: Procedure Laterality Date BACK SURGERY 1960 LUMBAR CATARACT EXT/ECCE Right COLONOSCOPY X 3 ESOPHAGOGASTRODUODENOSCOPY HERNIA REPAIR Right INGUINAL LAMINECTOMY DECOMP LUMBAR MULTI LEVEL Right 03/13/2018 Procedure: RIGHT L2-L5 LAMINECTOMY DECOMPRESSION; Surgeon: Kailey Hilton MD; Location: [facility] Main OR;Service: Orthopedic TOTAL KNEE ARTHROPLASTY Left 06/2016 Social History Socioeconomic History Marital status: Spouse name: Not on file Number of children: Not on file Years of education: Not on file Highest education level: Not on file Occupational History Not on file Social Needs Financial resource strain: Not on file Food insecurity Worry: Not on file Inability: Not on file Transportation needs Medical: Not on file Non-medical: Not on file Tobacco Use Smoking status: Never Smoker Smokeless tobacco: Never Used Substance and Sexual Activity Alcohol use: No Alcohol/week: 0.0 standard drinks Drug use: No Sexual activity: Not on file Lifestyle Physical activity Days per week: Not on file Minutes per session: Not on file Stress: Not on file Relationships Social connections Talks on phone: Not on file Gets together: Not on file Attends cheondoism service: Not on file Active member of club or organization: Not on file Attends meetings of clubs or organizations: Not on file Relationship status: Not on file Other Topics Concern Not on file Social History Narrative Not on file ROS: Review of Systems Constitutional: Negative for activity change and fatigue. HENT: Negative for congestion, hearing loss and trouble swallowing. Eyes: Negative for visual disturbance. Respiratory: Negative for chest tightness and shortness of breath. Cardiovascular: Negative for chest pain and palpitations. Gastrointestinal: Negative for abdominal pain, diarrhea, nausea and vomiting. Endocrine: Negative for polydipsia, polyphagia and polyuria. Genitourinary: Negative for decreased urine volume, difficulty urinating and hematuria. Musculoskeletal: Positive for arthralgias. Negative for joint swelling and myalgias. Skin: Negative for color change, rash and wound. Allergic/Immunologic: Negative for immunocompromised state. Neurological: Negative for dizziness, weakness, light-headedness and numbness. Hematological: Does not bruise/bleed easily. Psychiatric/Behavioral: Negative for confusion and sleep disturbance. The patient is not nervous/anxious. PE: Physical Exam Constitutional: He is oriented to person, place, and time. He appears well- developed and well-nourished. HENT: Head: Normocephalic. Eyes: Pupils are equal, round, and reactive to light. Neck: Normal range of motion. Neck supple. Cardiovascular: Normal rate and regular rhythm. Pulmonary/Chest: Effort normal and breath sounds normal. Abdominal: Soft. Bowel sounds are normal. Musculoskeletal: Normal range of motion. General: Tenderness and edema present. Right wrist: He exhibits tenderness and swelling. Neurological: He is alert and oriented to person, place, and time. Skin: Skin is warm and dry. Assessment: pain involving the wrist normal sensation of hand and arm, negative Phalen's maneuver, negative Tinel's sign, no thenar atrophy and no weakness of thumb/pinky pincer grasp Imaging: R Wrist No evidence of acute osseous abnormality. Plan/Diagnosis: After examination and reviewing of patient x-ray images, I did offer the patient a cortisone injection for the pain and inflammation which he gladly accepted. I did suggest that he not have massage to that area for 4-6 weeks. If there is no improvement in 2 weeks, I will see him back for further evaluation. The patient verbalizes understanding and is in agreement with the treatment plan. Problem List None Yaritza Luna CNP documented in this encounter* Elías Hsu MD - 11/14/2019 5:26 PM EDT Dictation on: 11/14/2019 5:28 PM by: ELÍAS HSU [[id number]] documented in this encounter* Elías Hsu MD - 03/12/2020 2:06 PM EDT Rocio is a gentleman I have known for quite some period of time. If you will recall, Rocio had a left total knee replacement years ago. The left knee was done back in 2014, almost 5 years ago. He said with the left knee, he had an episode where he was walking through [place] 2 weeks ago. He justhad kind of a sharp stabbing pain on the outside of the knee. It is almost completely gone now. Just wanted to have it checked out because it has been 5 years. As far as the right knee goes, he has been having pain and discomfort on the inside of the right knee with activity with a little bit of swelling. IMAGING X-rays, 3 views of the left knee, reveal a normal-appearing left total knee replacement. No loosening. No malalignment. Press-fit technique is noted. The right knee has end-stage medial compartment [id number] deformity noted on weightbearing films. PHYSICAL EXAM General: He is awake, alert and oriented x3. Ambulates without assistive device. He is by himself. Extremities: Full range of motion of the ankles and hips. Left knee wound is healed. No signs of infection. Full extension, over 125 degrees of flexion. No knee effusion. No erythema. No lymphangitis. No cellulitis. No ligamentous instability. The right knee has 5 degrees short of full extension, 120 degrees of flexion. Tenderness, medial joint line. Positive Erin. No ligamentous instability. IMPRESSION 1.Status post left knee replacement. 2.Right knee degenerative arthrosis. PLAN Today, under sterile conditions with patient's consent, we injected 20 mg of Kenalog, 2.5 cc of 1% lidocaine without epinephrine into the right knee. Patient tolerated the procedure well. I informed him I have no concerns whatsoever with the left knee. He is relieved. I will see him on a p.r.n. basis. documented in this encounter* Elías Hsu MD - 07/21/2019 11:38 AM EST Dictation on: 07/21/2019 11:42 AM by: ELÍAS HSU [[id number]] documented in this encounter Chief Complaint * F/U LUMBAR MRI, ONGOING ACHE IN HIS LOWER BACK AND BILATERAL HIPS, RIGHT HIP MORE THAN LEFT TODAY, HE HASN'T DONE MUCH ACTIVITY YET TO CAUSE MORE DISCOMFORT, GABAPENTIN AND MELOXICAM STILL GIVE HIM RELIEF, SCORE 3/10 * This is a 75-year-old male here for a follow-up appointment for chief complaint of low back and hippain. He reports that since his last visit the pain has been better. The meloxicam seems to help. He got the MRI done but did not get the x-rays. He states that with activity he will still get severepain in the lower back that will radiate into the hips that will quickly improve if he sits. He denies new neurologic symptoms or issues with bladder or bowel control. * The patient's past medical, social, and family history along with medications and allergies are available and were reviewed. new AF* FUV for bilat lower back pain at the belt line rates 1-2/10 reports his pain has not been too bad lately he has been taking it easy new onset of A-Fib on Xarelto. * This is a 75-year-old male here for a follow-up appointment for chief complaint of low back and bilateral hip pain. At his last visit he was scheduled to have a transforaminal epidural done however it was discovered that he was in atrial fibrillation prior to the procedure. The procedure was canceled and he has undergone cardiac work-up. He is scheduled to see an bull fiddle player on the . He reports that his artist blacksmith told him to take it easy and as such his back pain has not been allthat bad. His pain is much worse with standing walking and activity in general. It is equal between the 2 sides. He denies new neurologic symptoms or issues with bladder or bowel control. * The patient's past medical, social, and family history along with medications and allergies are available and were reviewed. 6 MO GERD HL HTN ALISHA ON CPAP DMII CK RREV LABSAtrial fibrillationAtrial fibrillationLA[facility] [place] [facility] F/U CELLULITIS6 MO F/U DM AFIB REV LABSParoxysmal atrial fibrillationFUV for markus low back pain with radiation to markus hips, new pain below R buttocks and R groin; also pain between shoulder blades; 3-10/09 today. Patient states ibuprfen has not been effective for pain. DIZZINESS, DENIES N/V X YESTERDAY* FUV xray results. today reports just having a stiff neck lt side this morning, and by afternoon 0/10 now and 8-/10 describes, very stiff and aching, he reports he is tolerating the GPN this is prescribed by Dr Anne. * This is a 76-year-old male here for a follow-up appointment for chief complaint of mid back pain. He reports that since his last visit the mid back pain has remained persistent. It seems to go will radiate outward rightward across one of the ribs. He states it is worse first thing in the morning but also with activity. He reports his low back pain has been under good control. He has also had someneck pain on the left side for the past couple of days but nothing down the arms. He denies numbness, tingling, weakness, or loss of bladder or bowel control. He thinks the gabapentin has been helpful. He denies side effects. He is going for massage therapy and doing home exercises as well which helps. * The patient's past medical, social, and family history along with medications and allergies are available and were reviewed. ROCIO SANDOVAL is being seen for a 6 month follow-up of atrial fibrillation. ROCIO SANDOVAL is being seen for a 6 month follow-up of atrial fibrillation. Medicare wellness. 6 MO F/U. Rev Labs.ROCIO SANDOVAL is being seen for a 6 month follow-up of atrial fibrillation.* FUV xray results today report having pain in bilat shoulders and mid back just below scapula rates 2/10 now and 7/10 at it's worst intermittently, usually when he first gets up gets better when he has been moving around. GPN is helping his pain. He needs a RF on GPN send to [facility]. He does not use [facility] anymore. * This is a 76-year-old male here for a follow-up appointment for chief complaint of bilateral shoulder pain. He reports that since his last visit the shoulder pain has remained persistent. It is bothersome when he is active and also it hurts if he lies on that side at night. It does interrupt his sleep. He got the x-rays we ordered. We discussed injections last visit and he would like to do that today. He does not want surgery. He reports the gabapentin has kept his back symptoms under good control. He denies side effects. He denies additional neurologic symptoms or issues with bladder or bowel control. * The patient's past medical, social, and family history along with medications and allergies are available and were reviewed. Longstanding persistent atrial fibrillation* FUV he reports adding the 3rd dose of GPN really helped his pain today reports having pain in bilatshoulders, upper back below scapula across bilat aides, and lower back above belt line describes asan ache rates 6-7/10. It affects his ADLs as he has trouble standing 1/2 hour and can only walk 1/2mile and sitting up right due to the pain, bilat shoulders hurt all of the time.. He gets relief with sitting in a reclining position and the GPN helps his pain. He will need a RF on GPN send to [facility]. * Oswestry Disability Index evaluation tool completed by patient score 28 out of 100. * FUV he reports adding the 3rd dose of GPN really helped his pain today reports having pain in bilatshoulders, upper back below scapula across bilat aides, and lower back above belt line describes asan ache rates 6-7/10. It affects his ADLs as he has trouble standing 1/2 hour and can only walk 1/2mile and sitting up right due to the pain, bilat shoulders hurt all of the time.. He gets relief with sitting in a reclining position and the GPN helps his pain. He will need a RF on GPN send to [facility]. * Oswestry Disability Index evaluation tool completed by patient score 28 out of 100. * This is a 77-year-old male here for a follow-up appointment for chief complaint of low back, mid back, and shoulder pain. He reports that since his last visit the shoulder pain has been manageable and the injections reduced the pain and improved his function by about 60%. He thinks the increased dose of gabapentin has helped a lot. He reports his spine pain is manageable as well. His main issue is bursitis in the left elbow. He is following with Dr. Hsu's office and has had it drained a couple of times. He is going to see them again tomorrow. They are trying to get it MRI but they are having some issues getting it done due to his pacemaker. He denies new neurologic symptoms or issues with bladder or bowel control. * The patient denies any additional numbness, tingling, weakness, or any loss of bladder or bowel control. The patient's past medical, social, and family history along with medications and allergies are available and were reviewed. Presents for bilateral hand pain. Left worse than right.* F/U GABAPENTIN, HE IS STILL DOING WELL WITH GABAPENTIN HE STATES THERE ARE TIMES HE WILL TAKE AN EXT RA PILL TO GET TO SLEEP WHEN HIS LEFT FOOT STARTS TO TINGLE, REQUESTING A REFILL TO MAIL ORDER, HE HAS SOME ACHING DISCOMFORT TO THE LOWER BACK, HE USES HEAT FOR RELIEF WITH LOWER BACK IT IS BUILT INTO HIS LAY Z BOY CHAIR, TAKING TYLENOL TWICE A DAY NOW FOR HIS ARTHRITIS HE IS SEEING A NEW LINOLEUM TILE LAYER, HE USES HIS INVERSION TABLE PRN, CHIROPRACTIC ADJUSTMENTS FOR RELIEF,REPOSITIONS, SCORE 3/10 * OSWESETRY DISABILITY INDEX=27% * HE CAN WALK UP TO 1/2 MILE, HE CAN STAND UP TO 15 MIN, SITTING DEPENDS ON THE CHAIR HE WILL REPOSITION FREQUENTLY WHEN IT IS NOT HIS LAY Z BOY CHAIR * HE NOTES HE HAD A STABBING PAIN TO THE LEFT ANKLE THIS MORNING WHILE HE WAS STANDING, SITTING NOW HE HAS A BIT OF TINGLING * F/U GABAPENTIN, HE IS STILL DOING WELL WITH GABAPENTIN HE STATES THERE ARE TIMES HE WILL TAKE AN EXTRA PILL TO GET TO SLEEP WHEN HIS LEFT FOOT STARTS TO TINGLE, REQUESTING A REFILL TO MAIL ORDER, HE HAS SOME ACHING DISCOMFORT TO THE LOWER BACK, HE USES HEAT FOR RELIEF WITH LOWER BACK IT IS BUILT INTO HIS LAY Z BOY CHAIR, TAKING TYLENOL TWICE A DAY NOW FOR HIS ARTHRITIS HE IS SEEING A NEW LINOLEUM TILE LAYER, HE USES HIS INVERSION TABLE PRN, CHIROPRACTIC ADJUSTMENTS FOR RELIEF,REPOSITIONS, SCORE 3/10 * OSWESETRY DISABILITY INDEX=27% * HE CAN WALK UP TO 1/2 MILE, HE CAN STAND UP TO 15 MIN, SITTING DEPENDS ON THE CHAIR HE WILL REPOSITION FREQUENTLY WHEN IT IS NOT HIS LAY Z BOY CHAIR * HE NOTES HE HAD A STABBING PAIN TO THE LEFT ANKLE THIS MORNING WHILE HE WAS STANDING, SITTING NOW HE HAS A BIT OF TINGLING * This is a 77-year-old male here for a follow-up appointment for chief complaint of low back and legpain. He reports that since his last visit for the most part things have been manageable. He thinksthe gabapentin has been quite helpful and he denies any side effects. He still has some symptoms that limit his function during the day and can also interrupt his sleep at night. He uses an inversiontable and goes for chiropractic treatments which help. He has also seen a model artists'. He underwent a left elbow bursectomy and reports that has healed well. He denies new neurologic symptoms or issues with bladder or bowel control. * The patient denies any additional numbness, tingling, weakness, or any loss of bladder or bowel control. The patient's past medical, social, and family history along with medications and allergies are available and were reviewed. Patient is here for follow up for hand/finger pain and states that he is doing somewhat better and is taking 1 Tylenol twice a day.Patient is here for follow up for hand/finger pain and states that he is doing somewhat better and is taking 1 Tylenol twice a day. Chief Complaint and Reason for Visit Chief Complaint Admit Date Previous Esophageal Performation 2024 9:17am Reason for Visit Admit Date Dysphagia March 12, 2025 9:17am Hoarseness of voice March 12, 2025 9:17am Additional Source Comments Kailey Hilton MD - 03/13/2018 12:38 PM EDT H&P Notes (unrecognized sect ion and content) INTERVAL HISTORY AND PHYSICAL Patient Name: Rocio Sandoval Admit Date: [id number] MR #: [id number] : 1945 The H&P has been reviewed and the patient has been examined. I concur with the findings of the H&P. There are no significant changes. It is appropriate to proceed with the planned procedure. Kailey Hilton MD 03/13/2018 12:38 PMin this encounter Kimberly Welsh, PT - 03/14/2018 12:59 PM EDTMdaija-June Back LISW-S - 03/14/2018 12:50 PM EDT Consult Notes (unrecognized section and content) Formatting of this note may be different from the original. Physical Therapy PHYSICAL THERAPY EVALUATION NOTE Skilled Therapy Needs After Discharge Anticipate Resolution of Current Assessment Limitations Including: Pain, Social Support Are Skilled Therapy Services Needed After Discharge: No DME Recommendation: Wheeled walker, Bariatric equipment DME Rationale: Patient's condition creates an increased risk of safety hazard without recommended equipment, Patient will require increased level of care without recommended equipment, Unreasonable time frame to complete ADL without recommended equipment Outcomes Measures Prior Function - Basic Mobility Raw Score: 24 Points Prior Function - Basic Mobility % Impaired: 0% functionally impaired AM-PAC - Basic Mobility Raw Score: 19 Points AM-PAC - Basic Mobility % Impaired: 36.99% functionally impaired Physical Therapy Assessment History: The following factors influence the patient's participation in the PT plan of care: Personal factors: body habitus Environmental factors: steps to enter home and lives alone The following co-morbidities (from this admission or prior) influence the patient's participation in this plan of care: Pt is s/p laminectomy decompression d/t lumbar spinal stenosis, DMII, HTN. H/o hiatal hernia, Arthitis, peripheral neuropathy, L TKA Number of History elements affecting this patient's PT plan of care: 3 or more Examination of Body Systems: The patient presents with impairments of pain, functional endurance, pain. These impairments result in limitations of gait, functional transfers, stair-climbing, safety and activity tolerance. These impairments result in restrictions of household mobility, community mobility and leisure activities. Number of Body Systems elements affecting this patient's PT plan of care: 4 or more Clinical Presentation: The patient's clinical presentation for this PT evaluation is evolving as evidenced by current PT documentation. Activity Tolerance Activity Tolerance: Tolerates 30 min acitivty with multiple rests Therapy Precautions Orthotic Devices: Yes Spine / Trunk: LSO Weight Bearing Status: WFL General Rehab Precautions: Fall risk, Back Balance Sitting Balance - Static: Sits without support for more than 30 seconds Sitting Balance - Dynamic: Moves / returns trunkal midpoint more than 2 inches in all planes Standing Balance - Static: Stands without support for more than 30 seconds Standing Balance - Dynamic: Moves / returns trunkal midpoint 1-2 inches in multiple planes Bed Mobility Rolling: Modified independence Supine to Sit: Supervision Sit to Supine: Supervision Transfers Sit to Stand: Supervision, Stand by assistance Bed to Chair: Stand by assistance, Supervision Stand Pivot Transfers: Stand by assistence, Supervision Junior Administrative Assistant: Wheeled walker Gait/Locomotion Gait Assistance: Stand by assistance, Supervision Assistive Device: Wheeled walker Distance: 250 Feet Pattern: Step through, R decreased step length, L decreased step length, Over reliance on upper extremities Stair Management Technique: Two rails, Step to pattern, Forwards Stair Management Assistance: Stand by assistance, Contact guard Number of Stairs: 5 Home Living Type of Home: House Home Layout: One level, Ramped entrance, Laundry in basement Bathroom Shower/Tub: Tub/shower unit Bathroom Toilet: Raised Bathroom Equipment: Shower chair, Grab bars in shower Bathroom Accessibility: Accessible via walker Home Equipment: Walker, Cane Prior Level of Function Level of [place]: Independent with ADLs and functional transfers, Independent with homemaking with ambulation Lives With: Alone Receives Help From: Family, Friend(s) ADL Assistance: Independent Homemaking Assistance: Independent Vocational: Retired Past Medical History: Diagnosis Date Arthritis Back pain Cataract removed Diabetes mellitus, type 2 (HCC) Dizzy spells Frequent urination GERD (gastroesophageal reflux disease) Hiatal hernia High blood pressure High cholesterol History of stress test 03/08/2018 scheduled at [facility] Kidney stones Lumbar stenosis with neurogenic claudication Nephrolithiasis passed Night sweats Numbness in both hands Peripheral neuropathy numbness fingers, tingling and some numbness left leg and foot Pneumonia in infectious disease PONV (postoperative nausea and vomiting) Ringing in ears Shortness of breath on exertion Urinary urgency Vision problem Past Surgical History: Procedure Laterality Date BACK SURGERY 1960 LUMBAR CATARACT EXT/ECCE Right COLONOSCOPY X 3 ESOPHAGOGASTRODUODENOSCOPY HERNIA REPAIR Right INGUINAL LAMINECTOMY DECOMP LUMBAR MULTI LEVEL Right 03/13/2018 Procedure: RIGHT L2-L5 LAMINECTOMY DECOMPRESSION; Surgeon: Kailey Hilton MD; Location: [facility] Main OR; Service: Orthopedic TOTAL KNEE ARTHROPLASTY Left 06/2016 PHYSICAL THERAPY TREATMENT NOTE Total Treatment Time (Total Session Time): 40 Minutes Timed Code Treatment Minutes: 25 Minutes Neuromuscular Reeducation Skilled Intervention: Provided verbal cues for upright posture, equal weight bearing through bilateral LE's, safety when reaching outside [place]O and to maintain back precautions Gait Training Skilled Intervention: Provided verbal cues for upright posture and to maintain safe close distance to walker. Attempted gait without A.D with increased L LE ER and decreased DF Therapeutic Activities Bed Mobility Skilled Intervention: without bed rail and with HOB flat Transfers Skilled Intervention: occasionsl verbal cues for hand placement and safe technique For complete objective data, detailed plan of care and patient education refer to: PT EVALUATION flow sheet, PT TREATMENT flow sheet, patient Plan of Care, Plan of Care progress note, and Patient Education. This note stands as the current Discharge Summary upon patient discharge from the hospital or completion of Physical Therapy Plan Associated Order(s): IP CONSULT TO UTILIZATION MANAGEMENT & CARE COORDINATION COMPLEX DISCHARGE Date: 03/14/2018 Time: 12:50 PM Patient Name: Rocio Sandoval Date of : 1945 Sex: Male Per PT, pt needs w/walker possibly tall as he's 6'2 for dc home today. Referred to [facility] liaison for w/walker delivery from [employer] Supplies. Discharge Plan Shared UM/CC and RN Living Arrangements: Alone Support Systems: Children Functional Status: Independent Type of Residence: Private residence Prior to Admission Home Care Services: No Discharge Readiness Expected Discharge Date: 03/14/18 [facility] Disposition D/C Disposition: Home HME: Wheeled walker HME Agency: [employer] in this encounter Bita Garner RN - 03/05/2018 4:59 PM EDT Nursing Notes (unrecognized section and content) Patient Instructions for [facility] Center: Prior to surgery: Please be sure to wear loose, comfortable clothing and non-skid shoes Bring your health insurance information and a photo ID, as well as your Living Will or Durable Power of Quality Review Trainer for Healthcare if it is available to you. Bring your cane/walker any applicable assistive device. If you currently use a CPAP, please bring this device with you on the day of surgery. Bring a list of your medications with the name of the medication, dose and how often you are taking it. Be sure to include herbal preparations and [id number] medications on this list. Do not eat or drink anything after midnight the night before your surgery/procedure. This includes water or liquids of any kind, food, gum, mints or hard candy. Carefully follow any instructions you were given by your Surgeon regarding further food restrictions. Do not drink any alcoholic beverages, smoke or chew tobacco during the 24 hours prior to your surgery/procedure Drink plenty of fluids the day prior to your procedure to maintain hydration but stop at midnight or bedtime On the morning of your surgery/procedure, you may brush your teeth but avoid swallowing water except for a sip with any recommended medications to be taken the morning of surgery. Bathe or shower the night before or early on the day of your surgery/procedure. Avoid the use of lotions, perfumes or powders. All nail portuguese is to be removed from fingernails and toenails. Please be sure to remove all jewelry and body piercings and leave all valuables at home. You will receive a phone call between 3:30 and 7:30 pm the business day before your procedure to verify the time you should arrive at the hospital. Eyeglasses, hearing aids or dentures may be worn to the hospital. Bring your storage container for these items as you will be asked to remove them prior to your surgery/procedure. Please do not wear any contact lenses the day of your surgery/procedure. Parking at [facility] is free. Please park in the lot in front of the main lobby. Enter the Main Entrance where a Technical Assistance Consultant Liaison at the information desk will greet you and accompany you to the surgery waiting area. Children under the age of 16 are NOT permitted in the Pre/Post Operative areas. They are welcome to wait with a responsible adult in the surgery waiting area. Have you had a chance to view our online educational program called Nely? It is important that you watch it as this is a standard part of your surgery preparation process here at [facility]. It will provide you with additional important information that will help to make your surgery/procedure and recovery process as smooth as possible. CHG INSTRUCTIONS REVIEWED COMING WITH FAMILY MEMBERS After your surgery: If you are having an outpatient procedure and will be going home the same day, a responsible licensed adult must be available for transportation, and is expected to remain at the hospital for the duration of your surgery/procedure. You are NOT allowed to drive yourself home. in this encounter Assessment & Plan Note - Mary Joel CNP - 03/14/2018 10:08 AM EDTSubjective & Objective - Mary Joel CNP - 03/14/2018 10:06 AM EDT Miscellaneous Notes (unrecog nized section and content) Associated Problem(s): Lumbar stenosis - POD #1 laminectomies and partial facetectomies and foraminotomies of L2-L5 on the right - HD stable, afebrile, on room air - Continue on current pain regimen along with bowel regimen - DVT proph with TEDs, SCDs, and ambulation - IS for pulmonary hygiene - PT/OT for eval and treatment, ambulation encouraged - Questions and concerns answered - ALISHA screen +. No desats noted, ET 40-45. Pt unaware of snoring but has been told in the past he needs a sleep study. He will follow up with PCP for referral. - Will see with Dr. Hilton - Anticipate dc home this afternoon Formatting of this note may be different from the original. Subjective/Objective: Perpetual Assessment: Rocio Sandoval is a 72 y.o. y/o male on hospital day 1. Pain controlled. Denies radicular pain. No n/v. -flatus, still on clears. Voiding without difficulty. Awaiting PT/OT. Review of Systems: The following system(s) were reviewed: Resp: Denies sob GI:No abdominal pain, distention :No dysuria Spine: No radicular pain Physical Examination: BP (!) 152/72 (BP Location: Right arm, Patient Position: Lying) Pulse 64 Temp 97.7 F (36.5 C ) (Oral) Resp 15 Ht 6' 2 Wt 130.7 kg (288 lb 2.3 oz) SpO2 96% BMI 37.00 kg/m General: Awake, appropriate, LOC x3 Lungs: Easy and unlabored. CTAB. Cardiovascular: RRR; no edema Abdomen: Positive bowel sounds; soft; non tender Spine: Feet dorsi/plantar flexion 5/5, knee flexion/extension 5/5 Drsg c/d/i Intake/Output last 3 shifts: I/O last 3 completed shifts: In: 1228.6 [P.O.:50; I.V.:1178.6] Out: 1375 [Urine:1325; Blood:50] Results/Medications Reviewed 03/14/18 10:07 AM: Laboratory, Microbiology and Medications Problem: Actual or potential alteration in health Goal: Knowledge of Enviroment Outcome: Met Pt oriented to room, call light use, bed controls. Pt instructed to use call light for all needs. Pt voiced understanding. Formatting of this note may be different from the original. Brief Post Operative Note Patient Name: Rocio Sandoval : 1945 (72 y.o.) Date of Service: 03/13/2018 CSN: [id number] Procedure(s): RIGHT L2-L5 LAMINECTOMY DECOMPRESSION Pre-Operative Diagnoses: * M48.062 Post-Operative Diagnoses: Surgeon(s) and Role: * Kailey Hilton MD - Primary Anesthesiologist: Champ Polk MD REFRIGERATION REPAIR SUPERVISOR: Hany Cowart CRNA Assessment Analyst: Theresa Prakash RN Relief Assessment Analyst: Nichole Meirno RN Relief Scrub: ST Leonor Scrub Person: ST Vickie Scrub Person Assist: ST Pia; Guerline Mcclendon RN Operative findings: See operative note. Intra and immediate post-operative complications: None. Type of anesthesia used: General Estimated blood loss: less than 50 mL Estimated urine output: Refer to surgical log Specimen(s): * No specimens in log * Implant(s): Implant Name Type Inv. Item Serial No. Power Brake Operator Lot No. LRB No. Used Action HEMOSTAT 8 X 12.5CM X 10MM SURGIFOAM GELATIN SPONGE - [id number] HEMOSTAT 8 X 12.5CM X 10MM SURGIFOAM GELATIN SPONGE [employer] [id number] Right 1 Implanted SEALANT 5ML HEMOSTATIC MATRIX FULL STERL PREP FLOSEAL - [id number] SEALANT 5ML HEMOSTATIC MATRIX FULL STERL PREP FLOSEAL [employer] BIO [id number] N/A 1 Implanted Drain(s): Wound(s): Incision 03/13/18 Back (Active) Kailey Hilton MD 03/13/2018 3:09 PM in this encounter (unrecognized sect ion and content) No Status Records FoundNo Status Records FoundNo Status Records FoundNo Status Records FoundNo Status Records FoundNo Status Records FoundNo Status Records FoundNo Status Records FoundNo Status Records FoundNo Status Records FoundNo Status Records FoundNo Status Records FoundNo Status Records FoundNo Status Records FoundNo Status Records FoundNo Status Records FoundNo Status Records FoundNo Status Records FoundNo Status Records FoundNo Status Records Found INFORMATION SOURCE (unrecogn ized section and content) DATE CREATED AUTHOR 04/09/2018 [facility] DATE CREATED AUTHOR AUTHOR'S ORGANIZ ATION 09/05/2018 [facility] DATE CREATED AUTHOR AUTHOR'S ORGANIZ ATION 01/21/2019 [facility] DATE CREATED AUTHOR AUTHOR'S ORGANIZ ATION 09/12/2022 [facility] DATE CREATED AUTHOR AUTHOR'S ORGANIZ ATION 02/01/2023 [facility] DATE CREATED AUTHOR AUTHOR'S ORGANIZ ATION 02/13/2023 [facility] DATE CREATED AUTHOR AUTHOR'S ORGANIZ ATION 03/02/2023 [facility] [facility] DATE CREATED AUTHOR AUTHOR'S ORGANIZ ATION 05/18/2023 [facility] DATE CREATED AUTHOR AUTHOR'S ORGANIZ ATION 09/11/2023 [facility] DATE CREATED AUTHOR AUTHOR'S ORGANIZ ATION 09/08/2024 [facility] DATE CREATED AUTHOR AUTHOR'S ORGANIZ ATION 11/06/2024 [facility] DATE CREATED AUTHOR AUTHOR'S ORGANIZ ATION 12/08/2024 [facility] DATE CREATED AUTHOR AUTHOR'S ORGANIZ ATION 12/21/2024 [facility] DATE CREATED AUTHOR AUTHOR'S ORGANIZ ATION 01/28/2025 [facility] DATE CREATED AUTHOR AUTHOR'S ORGANIZ ATION 02/16/2025 [facility] DATE CREATED AUTHOR AUTHOR'S ORGANIZ ATION 03/05/2025 [facility] DATE CREATED AUTHOR AUTHOR'S ORGANIZ ATION 04/30/2025 [facility] DATE CREATED AUTHOR AUTHOR'S ORGANIZ ATION 05/02/2025 [facility] DATE CREATED AUTHOR AUTHOR'S ORGANIZ ATION 05/02/2025 [facility] DATE CREATED AUTHOR AUTHOR'S ORGANIZ ATION 05/12/2025 [facility] Reason for Visit (unrecogniz ed section and content) Reason Comments Follow-up Specialty Diagnoses / Procedures Referred By Contac t Referred To Contact Rheumatology Diagnoses 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 Procedures Follow Up In Rheumatology Sheyla Schultz MD Phone: tel: fax: Referral ID Status Reason Start Date Expiration Date V isits Requested Visits Authorized [id number] Authorized 11/21/2023 11/20/2024 1 1 Reason Comments Medicare Annual Wellness Visit Subsequen t 6 MO LABS Specialty Diagnoses / Procedures Referred By Contac t Referred To Contact Primary Care Diagnoses Chronic diastolic congestive heart failure (Multi) Mixed hyperlipidemia Hypertension, essential, benign Mild CAD Peripheral arterial occlusive disease (CMS-HCC) Permanent atrial fibrillation (Multi) Type 2 diabetes mellitus without complication, without long-term current use of insulin (Multi) Gastroesophageal reflux disease without esophagitis Benign prostatic hyperplasia without lower urinary tract symptoms Major depressive disorder, single episode, in partial remission (CMS-HCC) Sacroiliitis (CMS-HCC) ALISHA on CPAP Low testosterone Procedures Follow Up In Primary Care - Established Tye Anne MD [address] [place] [address] Referral ID Status Reason Start Date Expiration Date V isits Requested Visits Authorized [id number] Authorized 04/30/2023 04/29/2024 1 1 Reason Comments Physical Therapy Specialty Diagnoses / Procedures Referred By Contac t Referred To Contact Rehabilitation Diagnoses Dizziness Chronic fatigue Tye Anne MD [address] [place] [address] [facility] [address] [place] [address] Referral ID Status Reason Start Date Expiration Date V isits Requested Visits Authorized [id number] Authorized 06/14/2023 06/13/2024 9 199 Reason Comments Pain Reason Comments Follow-up Reason Comments Pain Reason Comments Pain Injury Status Reason Specialty Diagnoses / Procedures Referred By Contact Referred To Contact Authorized Rehabilitation Diagnoses Lumbar radiculopathy Lumbar spondylosis Kailey Hilton MD [address] [place] [address] [facility] [address] [place] [address] Reason Comments Follow-up review EMG results Reason Comments Nail Care L 1st mpj callus vipin nful Reason Comments shoes measuring Reason Comments Nail Care Diabetic a1c 7.5 blo od sugar this morning 135 Reason Comments Toe Pain Follow up left great toe pain. X-rays were ordered for today. States he also has itching in his legs along his shins. Said he has used the ointment and it has helped. Reason Comments Nail Care Patient is here for diabetic nail care. Blood sugar was 128 this morning. DLS by Dr Anne was 07/08/2021. A1C wasw 7.5. ankle instability States the past coup le weeks when he has been walking it feels like his ankle wants to give out on him. Not sure if it was from walking on uneven ground. 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 Patient has not had his ears cleared of wax before, so he wanted to establish. No hx of ear surgery. Denies hearing difficulty. 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 Reason Comments 6 MO LABS Reason Comments Pain FUV meds today maida guy pain Lt shoulder, bilat scapula, and rt hip rates pain 3/10 now and 7/10 at worst, describes as an ache. In the past he has seen a Chiropractor for his hip but has not been there in a while. He taking tylenol BID, GPN, and repositioning to help his pain. He reports the pain affects his ALDs including lifting, sitting, laying/sleeping, traveling, standing for 30 minutes and walking 0.5 mile causes increased pain. Reason Comments Joint Pain Reason Comments Dizziness Denies any falls Reason Comments 1 MO F/U Specialty Diagnoses / Procedures Referred By Carlie t Referred To Contact Primary Care Diagnoses Dizziness Chronic fatigue Procedures Follow Up In Primary Care - Established Tye Anne MD [address] [place] [address] Referral ID Status Reason Start Date Expiration Date V isits Requested Visits Authorized [id number] Authorized 06/13/2023 06/12/2024 1 1 Reason Comments Back Pain Patient complains of right lower back pain and right hip pain. He denied radiation. He denied numbness and tingling. Patient rates his pain a 7/10. Neck Pain Patient complains of right neck pain radiating into his right shoulder. He rates his pain a 7/10. He states he was at the chiropractor yesterday and it helped a little. Specialty Diagnoses / Procedures Referred By Carlie t Referred To Contact Radiology Diagnoses Bilateral hip pain Procedures XR pelvis 1-2 views Reggie Aragon PA-C [address] [place] [address] Referral ID Status Reason Start Date Expiration Date Visits Requested Visits Authorized [id number] Authorized Perform Procedure 08/07/2023 08/06/2024 1 1 Specialty Diagnoses / Procedures Referred By Carlie t Referred To Contact Radiology Diagnoses Chronic right shoulder pain Arthritis of right shoulder region Procedures XR shoulder right 2+ views Reggie Aragon PA-C [address] [place] [address] Referral ID Status Reason Start Date Expiration Date Visits Requested Visits Authorized [id number] Authorized Perform Procedure 08/07/2023 08/06/2024 1 1 Specialty Diagnoses / Procedures Referred By Contac t Referred To Contact Radiology Diagnoses Chronic right-sided low back pain without sciatica Procedures XR lumbar spine 2-3 views Regige Aragon PA-C [address] [place] [address] Referral ID Status Reason Start Date Expiration Date Visits Requested Visits Authorized [id number] Authorized Perform Procedure 08/07/2023 08/06/2024 1 1 Specialty Diagnoses / Procedures Referred By Contac t Referred To Contact Radiology Diagnoses Cervical radiculitis Procedures XR cervical spine 2-3 views Reggie Aragon PA-C [address] [place] [address] Referral ID Status Reason Start Date Expiration Date Visits Requested Visits Authorized [id number] Authorized Perform Procedure 08/07/2023 08/06/2024 1 1 Reason Comments Nail Care Nail care Specialty Diagnoses / Procedures Referred By Contac t Referred To Contact Radiology Diagnoses Cervical radiculitis Procedures MR cervical spine wo IV contrast Reggie Aragon PA-C [address] [place] [address] [facility] [address] [place] [address] Referral ID Status Reason Start Date Expiration Date Visits Requested Visits Authorized [id number] Authorized Perform Procedure 08/07/2023 08/06/2024 1 1 Specialty Diagnoses / Procedures Referred By Contac t Referred To Contact Cardiology Diagnoses Pacemaker Sick sinus syndrome (CMS/HCC) Procedures Cardiac Device Check - MRI Aravind Jimenez MD [address] [facility] [address], [address] [address] Referral ID Status Reason Start Date Expiration Date Visits Requested Visits Authorized [id number] Pending Review Perform Procedure 08/27/2023 08/26/2024 1 1 Specialty Diagnoses / Procedures Referred By Contac t Referred To Contact Cardiology Diagnoses Cardiac pacemaker in situ Sinoatrial node dysfunction (CMS/HCC) Procedures Cardiac Device Check - MRI Miguel Hinojosa MD [address] [facility] [address] [place] [address] Referral ID Status Reason Start Date Expiration Date Visits Requested Visits Authorized [id number] Pending Review Perform Procedure 08/14/2023 08/13/2024 1 1 Reason Comments Pain FUV for R low back p ain; pain score 7/10 today. Patient states pain is described as an ache. Walking increases the pain. Tylenol will help decrease the pain. MRI done at 08-27-23. Refill for Gabapentin needed. Reason Comments ER F/U Rt Elbow Wound Specialty Diagnoses / Procedures Referred By Contac t Referred To Contact Radiology Diagnoses Lumbar radiculopathy Neurogenic claudication due to lumbar spinal stenosis Cervical radiculitis Procedures MR lumbar spine wo IV contrast Reggie Aragon, EUGENE [address] [place] [address] Referral ID Status Reason Start Date Expiration Date Visits Requested Visits Authorized [id number] Authorized Perform Procedure 09/04/2023 09/03/2024 1 1 Specialty Diagnoses / Procedures Referred By Contac t Referred To Contact Cardiology Diagnoses Cardiac pacemaker in situ Sinoatrial node dysfunction (CMS/HCC) Procedures Cardiac Device Check - MRI Aravind Jimenez MD [address] [facility] [address], [address] [place] [address] Referral ID Status Reason Start Date Expiration Date Visits Requested Visits Authorized [id number] Pending Review Perform Procedure 09/24/2023 09/23/2024 1 1 Specialty Diagnoses / Procedures Referred By Contac t Referred To Contact Cardiology Diagnoses Pacemaker Sick sinus syndrome (CMS/HCC) Procedures Cardiac Device Check - MRI Maritza Lopes MD [address] [facility], [address] [place] [address] Referral ID Status Reason Start Date Expiration Date Visits Requested Visits Authorized [id number] Pending Review Perform Procedure 09/06/2023 09/05/2024 1 1 Specialty Diagnoses / Procedures Referred By Contac t Referred To Contact Cardiology Diagnoses Cardiac pacemaker in situ Sinoatrial node dysfunction (CMS/HCC) Procedures Cardiac Device Check - Remote Aravind Jimenez MD [address] [facility] [address], [address] [place] [address] [id number] Cr [id number] [address] [facility] [address] [place] [address] Referral ID Status Reason Start Date Expiration Date Visits Requested Visits Authorized [id number] Authorized Perform Procedure 09/25/2023 09/24/2024 12 12 Reason Comments Back Pain FUV MRI results mahad y reports Bilat lower back pain R>L that radiates into rt hip. Neck Pain Also having pain in his rt side neck that radiates into bilat scapula down to his lower back Specialty Diagnoses / Procedures Referred By Contac t Referred To Contact Cardiology Diagnoses Bradycardia Pacemaker Procedures Cardiac device check - In Clinic Aravind Jimenez MD [address] [facility] [address], [address] [place] [address] Referral ID Status Reason Start Date Expiration Date Visits Requested Visits Authorized [id number] Pending Review Perform Procedure 3 04/18/2024 5 5 Specialty Diagnoses / Procedures Referred By Contac t Referred To Contact Diagnoses Chronic diastolic congestive heart failure (Multi) Procedures ECG 12 lead (Ancillary Performed) Kathy Treviño APRN-CNP, [facility] [address] [facility], [facility] [address] [place] [id number] Referral ID Status Reason Start Date Expiration Date V isits Requested Visits Authorized [id number] Authorized 10/23/2023 10/22/2024 1 1 Reason Comments heart flutters Specialty Diagnoses / Procedures Referred By Contac t Referred To Contact Diagnoses Atrial fibrillation, unspecified type (Multi) Procedures ECG 12 lead (Clinic Performed) Octavio Marmolejo APRN-CNP [address] [facility], [address] [place] [address] Referral ID Status Reason Start Date Expiration Date V isits Requested Visits Authorized [id number] Authorized 11/19/2023 11/18/2024 1 1 Reason Comments Nail Care Diabetic nail care. Last A1C was 7.3 on 10/23/2023. Reason Comments Nail Care Patient presents for diabetic nail care. Last A1c 7.0 Patient states that he is having right outside ankle pain, duration 3 days Specialty Diagnoses / Procedures Referred By Carlie t Referred To Contact Cardiology Diagnoses Atrial fibrillation, unspecified type (Multi) Bradycardia Sinus node dysfunction (Multi) Chronic heart failure with normal ejection fraction Procedures Transthoracic Echo (TTE) Complete [place] ECHO TTHRC R-T 2D W/WOM-MODE COMPL SPEC&COLR D Joel Stroud MD [address] [place] [address] [facility] [place], [place] [address] Referral ID Status Reason Start Date Expiration Date Visits Requested Visits Authorized [id number] Authorized Perform Procedure 03/13/2024 03/13/2025 1 1 Reason Comments Follow-up Echo Reason Comments Follow-up FUV for 4-5 PETE he r eports good relief for 2 days then 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 Today he reports Lt side lower back at belt line and lower back/upper gluteal at times goes into his lt leg and foot rates 4/10 now and 8-9/10, describes ache. He is very active and takes Gabapentin and Tylenol 8hr and and 500mg in the after noon this helps ease his pain some. 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, lumbosacral region Screening for prostate cancer Gastroesophageal reflux disease without esophagitis Hypertension, essential, benign Mixed hyperlipidemia Type 2 diabetes mellitus without complication, without long-term current use of insulin (Multi) Permanent atrial fibrillation (Multi) Low testosterone in male Procedures Follow Up In Primary Care - Established Tye Anne MD Phone: tel: fax: Referral ID Status Reason Start Date Expiration Date V isits Requested Visits Authorized [id number] Authorized 02/07/2024 02/06/2025 1 1 Reason Comments Atrial Fibrillation Specialty Diagnoses / Procedures Referred By Contac t Referred To Contact Diagnoses Bradycardia Procedures ECG 12 lead (Clinic Performed) Aravind Jimenez MD [address] [facility] [address], [address] [place] [address] Phone: tel: fax: Referral ID Status Reason Start Date Expiration Date V isits Requested Visits Authorized [id number] Authorized 05/27/2024 05/27/2025 1 1 Reason Comments Nail Care Diabetic nail care. Follow up right 5th toe injury. Still hurt to walk and in the morning. Last A1C was 6.74 in April. Reason Comments Back Pain Patient is following up from a Bilat L4-5 TFESI that he had on 12/07/23. Patient reports 80% relief. Patient states he still has lower back pain but it is not as excruciating as it was. Patient today complains that a week ago he had severe left knee pain. He states he made an appointment with orthopedics. He states he knee isn't bothering him now. Patient also complains of rib pain when he wakes up in the morning. Reason Comments Error (VOID this visit) Reason Comments Flu Symptoms Pt to ED from walk i n clinic, pt c/o left jaw pain, dry cough, sore throat starting yesterday. Pt's has bronchitis. Reason Comments Follow-up FUV Meds. Today repo rts he is having pain in Bilat lower back and hips R>L , lt knee area rates pain 5-6/10 now and 8/10 at worst, describes as sharp pain with standing or walking. He is taking Gabapentin, tylenol, and uses an inversion table to help his pain. Reason Comments Follow-up Pt here for 1 year f u. Pt states feels dizzy when bending over Specialty Diagnoses / Procedures Referred By Contac t Referred To Contact Diagnoses Atrial fibrillation, unspecified type (Multi) Procedures ECG 12 lead (Clinic Performed) Joel Stroud MD [address] Nicolle Amador, [address] [place] [address] Referral ID Status Reason Start Date Expiration Date V isits Requested Visits Authorized [id number] Authorized 03/13/2024 03/13/2025 1 1 Specialty Diagnoses / Procedures Referred By Contac t Referred To Contact Cardiology Diagnoses Cardiac pacemaker in situ Sinoatrial node dysfunction (Multi) Procedures Cardiac Device Check - Remote Aravind Jimenez MD [address] [facility] [address], [address] [place] [address] Par [id number] Cr Nonv1 [address] [facility] [address] [place] [address] Reason Comments ER F/U Bronchitis Specialty Diagnoses / Procedures Referred By Contac t Referred To Contact Family Medicine / Primary Care Diagnoses Bronchitis Simi Bray APRN-BUTCHER HELPER [address] [place] [address] Phone: tel: fax: Referral ID Status Reason Start Date Expiration Date Visits Requested Visits Authorized [id number] Authorized Specialty Services Required 06/12/2025 1 1 Reason Comments Follow-up FOLLOW UP ON LEFT L5 /S1 TFESI DONE ON 05/28/24 HE HAD GOOD RELIEF UP UNTIL 2 WEEKS AGO, HE GETS A SHARP THROBBING PAIN FROM HIS LEFT HIP DOWN TO HIS TOES, IT WILL HAPPEN WHEN HE IS LAYING DOWN IN BED OR SITTING IN HIS RECLINER, HE WILL TAKE TYLENOL ARTHRITIS AND GET SOME RELIEF AFTER AN HOUR, Reason Comments Hyperthyroidism Specialty Diagnoses / Procedures Referred By Contac t Referred To Contact Endocrinology Diagnoses Hyperthyroidism Tye Anne MD [address] [place] [address] Phone: tel: fax: Monty Julien, BUTCHER HELPER [address] [place] [address] Phone: tel: fax: Referral ID Status Reason Start Date Expiration Date Visits Requested Visits Authorized [id number] Pending Review Specialty Services Required/Pat ient's Best Interest 07/04/2024 07/04/2025 1 1 Reason Comments 3 month f/u Reason Comments Follow-up FOLLOW UP LUMBAR MRI , ONGOING TIGHT SHARP PAIN TO THE LEFT LEG THAT GOES FROM HIS LEFT HIP DOWN TO HIS TOES WITH TINGLING,HE HAS PAIN THAT HE STATES IS CONSTANT HE STATES HIS LEFT LEG IS WORSE AT NIGHT BUT THE GABAPENTIN SETTLES THE FEELING TO ALLOW HIM TO GET SOMEWHAT COMFORTABLE, HE ALSO HAS PAIN WITH SITTING, TRANSITIONING, HE NOTES THAT HIS LEFT LOWER LEG FEELS SWOLLEN, Reason Comments Nail Care diab nail care/A1C 6 .7 on 04/25/24. Right 5th toenail has been catching on his sock. Heart function is below 40%. Going to have procedure to fix pacemaker. 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, lumbosacral region Gastroesophageal reflux disease without esophagitis Hypertension, essential, benign Mixed hyperlipidemia Type 2 diabetes mellitus without complication, without long-term current use of insulin Permanent atrial fibrillation (Multi) Low testosterone in male Chronic diastolic congestive heart failure Procedures Follow Up In Primary Care - Established Tye Anne MD [address] [facility] [address] [place] [address] Phone: tel: fax: Referral ID Status Reason Start Date Expiration Date V isits Requested Visits Authorized [id number] Authorized 05/09/2024 05/09/2025 1 1 Reason Comments Follow-up 6 week follow up aft er device upgrade and ablation . Patient still having some weakness, patient is in physical therapy with [place]. Specialty Diagnoses / Procedures Referred By Carlie guzman Referred To Contact Diagnoses Persistent atrial fibrillation (Multi) Sick sinus syndrome (Multi) Procedures ECG 12 lead (Clinic Performed) Aravind Jimenez MD [address] [facility] 3, [facility] [address] [place] [address] Phone: tel: fax: Referral ID Status Reason Start Date Expiration Date V isits Requested Visits Authorized [id number] Authorized 11/11/2024 11/11/2025 1 1 Reason Comments Penis Pain Penile pain pain and swelling on the back of head of penis x 3 days Reason Comments Nail Care diab nail care Reason Comments Dizziness Reason Comments Dizziness Pt reports dizziness x 6 weeks, worse the past couple days. Reason Comments Dizziness Dizziness, seen in E R on 12/17 Specialty Diagnoses / Procedures Referred By Contac t Referred To Contact Family Medicine / Primary Care Diagnoses Orthostatic hypotension Sammy Andrew, DO [address] [facility] Department of [place] [address] Phone: tel: fax: Referral ID Status Reason Start Date Expiration Date Visits Requested Visits Authorized [id number] Authorized Specialty Services Required 12/17/2024 12/17/2025 1 1 Reason Comments Follow-up 2 month fuv, doesn't feel the best lately. Has medication questions. Specialty Diagnoses / Procedures Referred By Contac t Referred To Contact Diagnoses SSS (sick sinus syndrome) (Multi) Procedures ECG 12 lead (Clinic Performed) Aravind Jimenez MD [address] [facility] 3, [facility] 301 [place] [address] Phone: tel: fax: Referral ID Status Reason Start Date Expiration Date V Sopheonts Requested Visits Authorized [id number] Authorized 01/15/2025 01/15/2026 1 1 Reason Comments Thyroid Problem Reason Comments Follow-up 1mo chk- rev labs(do ne) Specialty Diagnoses / Procedures Referred By Contac t Referred To Contact Primary Care Diagnoses Orthostatic hypotension Type 2 diabetes mellitus without complication, without long-term current use of insulin Chronotropic incompetence Chronic diastolic congestive heart failure Procedures Follow Up In Primary Care - Established Tye Anne MD [address] [facility] 100 [place] [address] Phone: tel: fax: Referral ID Status Reason Start Date Expiration Date V isits Requested Visits Authorized [id number] Authorized 12/26/2024 12/26/2025 1 1 Reason Comments Toe Pain L 5th toe painful as well as 2nd hammertoe; soaked in epsom salts. Last A1c 7.2 in December Reason Comments Nail Care diab nail care/a1c 7 .2 ON 01/20/25 Reason Comments Follow-up 3 month Reason Comments Follow-up Patient here today f or follow up to discuss gabapentin doseage. He states he has been taking 800mg at night but feels he needs more than that as it is not helping as much. His main complaint is tingling in the left foot, that sometimes is so bad he wants to beat it with a sledge hammer. Reports he is starting to get some tingling in his right foot as well which is new. Rates pain 4/10 in left foot today. He says his back pain has been tolerable, only gets really bad when he is working outside a lot. Specialty Diagnoses / Procedures Referred By Carlie guzman Referred To Contact Primary Care Diagnoses Orthostatic hypotension Type 2 diabetes mellitus without complication, without long-term current use of insulin (Multi) Chronotropic incompetence Chronic diastolic congestive heart failure (Multi) Obstructive sleep apnea on CPAP Benign prostatic hyperplasia without lower urinary tract symptoms Hypertension, essential, benign Mixed hyperlipidemia Permanent atrial fibrillation (Multi) Screening for prostate cancer Procedures Follow Up In Primary Care - Established Tye Anne MD [address] [address] Phone: tel: fax: Referral ID Status Reason Start Date Expiration Date V isits Requested Visits Authorized [id number] Authorized 01/29/2025 01/29/2026 1 1 Care Teams (unrecognized sec tion and content) Aviation Engineer Relationship Specialty Start Date End Date Tye Anne MD [address] [place] [address] PCP - General Family Medicine 05/17/15 Elías Hsu MD [address] [place], [place] [phone] Consulting Physician Orthopedic Surgery 06/17/15 Aviation Engineer Relationship Specialty Start Date End Date Tye Anne MD [address] [place] [address] PCP - General Family Medicine 05/17/15 Elías Hsu MD [address] [facility] [place] [address] Consulting Physician Orthopedic Surgery 06/17/15 Aviation Engineer Relationship Specialty Start Date End Date Tye Anne MD [address] [place] [phone] PCP - General Family Medicine 05/17/15 Elías Hsu MD 45 [place] [address] Consulting Physician Orthopedic Surgery 06/17/15 Aviation Engineer Relationship Specialty Start Date End Date Tye Anne MD [address] [place] [phone] PCP - General Family Medicine 05/17/15 Elías Hsu MD [address] [place] [phone] Consulting Physician Orthopedic Surgery 06/17/15 Aviation Engineer Relationship Specialty Start Date End Date Tye Anne MD [address] [place] [phone] PCP - General Family Medicine 05/17/15 Elías Hsu MD 45 [place] [address] Consulting Physician Orthopedic Surgery 06/17/15 Aviation Engineer Relationship Specialty Start Date End Date Tye Anne MD [address] [place], [place] [phone] PCP - General Family Medicine 05/17/15 Elías Hsu MD 45 [place] [address] Consulting Physician Orthopedic Surgery 06/17/15 Aviation Engineer Relationship Specialty Start Date End Date Tye Anne MD [address] [address] PCP - General Family Medicine 05/17/15 Elías Hsu MD [address] [place] [address] Consulting Physician Orthopedic Surgery 06/17/15 Aviation Engineer Relationship Specialty Start Date End Date Tye Anne MD [address] [facility] [address] PCP - General Family Medicine 05/17/15 Elías Hsu MD [address] [facility] [place] [address] Consulting Physician Orthopedic Surgery 06/17/15 Aviation Engineer Relationship Specialty Start Date End Date Tye Anne MD [address] [facility] [place] [phone] PCP - General Family Medicine 05/17/15 Elías Hsu MD [address] [place] [address] Consulting Physician Orthopedic Surgery 06/17/15 Aviation Engineer Relationship Specialty Start Date End Date Tye Anne MD [address] [facility] [place] [phone] PCP - General Family Medicine 05/17/15 Elías Hsu MD 45 [place] [address] Consulting Physician Orthopedic Surgery 06/17/15 Aviation Engineer Relationship Specialty Start Date End Date Tye Anne MD [address] [place] [address] PCP - General Family Medicine 05/17/15 Tye Anne MD [address] [place] [address] PCP - [facility] Provider - [facility] [place] 07/02/21 07/01/50 Elías Hsu MD [address] [place] [address] Consulting Physician Orthopedic Surgery 06/17/15 Aviation Engineer Relationship Specialty Start Date End Date Tye Anne MD [address] [place] [address] PCP - General Family Medicine 05/17/15 Elías Hsu MD [address] [place] [phone] Consulting Physician Orthopedic Surgery 06/17/15 Aviation Engineer Relationship Specialty Start Date End Date Tye Anne MD [address] [place] [address] PCP - General Family Medicine 05/17/15 Elías Hsu MD [place] [address] Consulting Physician Orthopedic Surgery 06/17/15 Aviation Engineer Relationship Specialty Start Date End Date Tye Anne MD [address] [address] PCP - General Family Medicine 05/17/15 Elías Hsu MD [address] [place] [address] Consulting Physician Orthopedic Surgery 06/17/15 Aviation Engineer Relationship Specialty Start Date End Date Tye Anne MD [address] [place] [phone] PCP - General Family Medicine 05/17/15 Elías Hsu MD [address] [place] [address] Consulting Physician Orthopedic Surgery 06/17/15 Aviation Engineer Relationship Specialty Start Date End Date Tye Anne MD [address] [place] [phone] PCP - General 03/04/19 Tye Anne MD [address] [place] [phone] PCP - [facility] Medicare Advantage PCP 07/02/22 Aviation Engineer Relationship Specialty Start Date End Date Tye Anne MD [address] [place] [phone] PCP - General Family Medicine 05/17/15 Elías Hsu MD [address] [place] [phone] Consulting Physician Orthopedic Surgery 06/17/15 Aviation Engineer Relationship Specialty Start Date End Date Tye Anne MD [address] [place] [phone] PCP - General Family Medicine 05/17/15 Elías Hsu MD [address] [place] [phone] Consulting Physician Orthopedic Surgery 06/17/15 Aviation Engineer Relationship Specialty Start Date End Date Tye Anne MD [address] [place] [phone] PCP - General Family Medicine 05/17/15 Elías Hsu MD [address] [place] [phone] Consulting Physician Orthopedic Surgery 06/17/15 Aviation Engineer Relationship Specialty Start Date End Date Tye Anne MD [address] [place] [phone] PCP - General Family Medicine 05/17/15 Elías Hsu MD [address] [place] [phone] Consulting Physician Orthopedic Surgery 06/17/15 Aviation Engineer Relationship Specialty Start Date End Date Tye Anne MD [address] [place] [phone] PCP - General Family Medicine 05/17/15 Elías Hsu MD [address] [place] [phone] Consulting Physician Orthopedic Surgery 06/17/15 Aviation Engineer Relationship Specialty Start Date End Date Tye Anne MD [address] [place] [phone] PCP - [facility] Medicare Advantage PCP 07/02/22 Tye Anne MD [address] [place] [address] PCP - General Family Medicine 03/18/23 Aviation Engineer Relationship Specialty Start Date End Date Tye Anne MD [address] [place] [address] PCP - [facility] Medicare Advantage PCP 07/02/22 Tye Anne MD [address] [place] [address] PCP - General Family Medicine 03/18/23 Aviation Engineer Relationship Specialty Start Date End Date Tye Anne MD [address] [place] [phone] PCP - General Family Medicine 05/17/15 Elías Hsu MD [address] [place], [place] [phone] Consulting Physician Orthopedic Surgery 06/17/15 Aviation Engineer Relationship Specialty Start Date End Date Tye Anne MD [address] [place] [phone] PCP - [facility] Medicare Advantage PCP 07/02/22 Tye Anne MD [address] [place] [address] PCP - General Family Medicine 03/18/23 Aviation Engineer Relationship Specialty Start Date End Date Tye Anne MD [address] [place] [address] PCP - [facility] Medicare Advantage PCP 07/02/22 Tye Anne MD [address] [place] [address] PCP - General Family Medicine 03/18/23 Aviation Engineer Relationship Specialty Start Date End Date Tye Anne MD [address] [place] [address] PCP - [facility] Medicare Advantage PCP 07/02/22 Tye Anne MD [address] [place] [phone] PCP - General Family Medicine 03/18/23 Aviation Engineer Relationship Specialty Start Date End Date Tye Anne MD [address] [place] [phone] PCP - General Family Medicine 05/17/15 Elías Hsu MD [address] [place] [phone] Consulting Physician Orthopedic Surgery 06/17/15 Aviation Engineer Relationship Specialty Start Date End Date Tye [facility] MD [facility] [place] [phone] PCP - General Family Medicine 05/17/15 Elías Hsu MD [address] [place] [phone] Consulting Physician Orthopedic Surgery 06/17/15 Aviation Engineer Relationship Specialty Start Date End Date Tye Anne MD [facility] [phone] PCP - General Family Medicine 05/17/15 Elías Hsu MD [address] [place] [phone] Consulting Physician Orthopedic Surgery 06/17/15 Aviation Engineer Relationship Specialty Start Date End Date Tye Anne MD [address] [place] [address] PCP - [facility] Medicare Advantage PCP 07/02/22 Tye Anne MD [address] [place] [address] PCP - General Family Medicine 03/18/23 Aviation Engineer Relationship Specialty Start Date End Date Tye Anne MD [address] [place] [address] PCP - [facility] Medicare Advantage PCP 07/02/22 Tye Anne MD [address] [place] [address] PCP - General Family Medicine 03/18/23 Aviation Engineer Relationship Specialty Start Date End Date Tye Anne MD [address] [place] [address] PCP - [facility] Medicare Advantage PCP 07/02/22 Tye Anne MD [address] [place] [address] PCP - General Family Medicine 03/18/23 Aviation Engineer Relationship Specialty Start Date End Date Tye Anne MD [address] [place] [address] PCP - [facility] Medicare Advantage PCP 07/02/22 Tye Anne MD [address] [place] [address] PCP - General Family Medicine 03/18/23 Aviation Engineer Relationship Specialty Start Date End Date Tye Anne MD [address] [place] [address] PCP - [facility] Medicare Advantage PCP 07/02/22 Tye Anne MD [address] [place] [address] PCP - General Family Medicine 03/18/23 Aviation Engineer Relationship Specialty Start Date End Date Tye Anne MD [address] [place] [phone] PCP - General Family Medicine 05/17/15 Elías Hsu MD [address] [place] [address] Consulting Physician Orthopedic Surgery 06/17/15 Aviation Engineer Relationship Specialty Start Date End Date Tye Anne MD [address] [place] [phone] PCP - [facility] Medicare Advantage PCP 07/02/22 Tye Anne MD [address] [place] [phone] PCP - General Family Medicine 03/18/23 Aviation Engineer Relationship Specialty Start Date End Date Tye Anne MD [address] [place] [address] PCP - [facility] Medicare Advantage PCP 07/02/22 Tye Anne MD [address] [place] [address] PCP - General Family Medicine 03/18/23 Aviation Engineer Relationship Specialty Start Date End Date Tye Anne MD [address] [place] [address] PCP - [facility] Medicare Advantage PCP 07/02/22 Tye Anne MD [address] [place] [address] PCP - General Family Medicine 03/18/23 Aviation Engineer Relationship Specialty Start Date End Date Tye Anne MD [address] [phone] PCP - [facility] Medicare Advantage PCP 07/02/22 Tye Anne MD [address] [place] [phone] PCP - General Family Medicine 03/18/23 Aviation Engineer Relationship Specialty Start Date End Date Tye Anne MD [address] [place] [phone] PCP - [facility] Medicare Advantage PCP 07/02/22 Tye Anne MD [address] [place] [phone] PCP - General Family Medicine 03/18/23 Aviation Engineer Relationship Specialty Start Date End Date Tye Anne MD [address] [place] [address] PCP - [facility] Medicare Advantage PCP 07/02/22 Tye Anne MD [address] [place] [phone] PCP - General Family Medicine 03/18/23 Aviation Engineer Relationship Specialty Start Date End Date Tye Anne MD [address] [place] [phone] PCP - [facility] Medicare Advantage PCP 07/02/22 Tye Anne MD [address] [place] [address] PCP - General Family Medicine 03/18/23 Aviation Engineer Relationship Specialty Start Date End Date Tye Anne MD [address] [place] [address] PCP - [facility] Medicare Advantage PCP 07/02/22 Tye Anne MD [address] [place] [address] PCP - General Family Medicine 03/18/23 Aviation Engineer Relationship Specialty Start Date End Date Tye Anne MD [address] [place] [phone] PCP - General Family Medicine 05/17/15 Elías Hsu MD [address] [place], [place] [phone] Consulting Physician Orthopedic Surgery 06/17/15 Aviation Engineer Relationship Specialty Start Date End Date Tye Anne MD [address] [place] [phone] PCP - [facility] Medicare Advantage PCP 07/02/22 Tye Anne MD [address] [place] [address] PCP - General Family Medicine 03/18/23 Aviation Engineer Relationship Specialty Start Date End Date Tye Anne MD [address] [place] [address] PCP - [facility] Medicare Advantage PCP 07/02/22 Tye Anne MD [address] [place] [address] PCP - General Family Medicine 03/18/23 Aviation Engineer Relationship Specialty Start Date End Date Tye Anne MD [address] [place] [phone] PCP - General Family Medicine 05/17/15 Elías Hsu MD [address] [place] [address] Consulting Physician Orthopedic Surgery 06/17/15 Aviation Engineer Relationship Specialty Start Date End Date Tye Anne MD [address] [place] [address] PCP - General Family Medicine 05/17/15 Elías Hsu MD [address] [facility] [place] [address] Consulting Physician Orthopedic Surgery 06/17/15 Aviation Engineer Relationship Specialty Start Date End Date Tye Anne MD [address] [place] [address] PCP - General Family Medicine 05/17/15 Elías Hsu MD [address] [place] [address] Consulting Physician Orthopedic Surgery 06/17/15 Aviation Engineer Relationship Specialty Start Date End Date Tye Anne MD [address] [address] PCP - [facility] Medicare Advantage PCP 07/02/22 Tye Anne MD [address] [address] PCP - General Family Medicine 03/18/23 Aviation Engineer Relationship Specialty Start Date End Date Tye Anne MD [address] [address] PCP - [facility] Medicare Advantage PCP 07/02/22 Tye Anne MD [address] [address] PCP - General Family Medicine 03/18/23 Aviation Engineer Relationship Specialty Start Date End Date Tye Anne MD [address] [address] PCP - [facility] Medicare Advantage PCP 07/02/22 Tye Anne MD [address] [address] PCP - General Family Medicine 03/18/23 Aviation Engineer Relationship Specialty Start Date End Date Tye Anne MD [address] [address] PCP - [facility] Medicare Advantage PCP 07/02/22 Tye Anne MD [address] [place] [address] PCP - General Family Medicine 03/18/23 Aviation Engineer Relationship Specialty Start Date End Date Tye Anne MD [address] [place] [address] PCP - [facility] Medicare Advantage PCP 07/02/22 Tye Anne MD [address] [place] [address] PCP - General Family Medicine 03/18/23 Aviation Engineer Relationship Specialty Start Date End Date Tye Anne MD [address] [address] PCP - [facility] Medicare Advantage PCP 07/02/22 Tye Anne MD [address] [address] PCP - General Family Medicine 03/18/23 Aviation Engineer Relationship Specialty Start Date End Date Tye Anne MD [address] [address] PCP - [facility] Medicare Advantage PCP 07/02/22 Tye Anne MD [address] [place] [address], [place] [address] PCP - General Family Medicine 03/18/23 Aviation Engineer Relationship Specialty Start Date End Date Tye Anne MD [address] [place] [address], [place] [address] PCP - [facility] Medicare Advantage PCP 07/02/22 Tye Anne MD [address] [address] PCP - General Family Medicine 03/18/23 Aviation Engineer Relationship Specialty Start Date End Date Tye Anne MD [address] [address] PCP - [facility] Medicare Advantage PCP 07/02/22 Tye Anne MD [address] [address] PCP - General Family Medicine 03/18/23 Aviation Engineer Relationship Specialty Start Date End Date Tye Anne MD [address] [place] [address] PCP - General Family Medicine 05/17/15 Elías Hsu MD [address] [place] [phone] Consulting Physician Orthopedic Surgery 06/17/15 Aviation Engineer Relationship Specialty Start Date End Date Tye Anne MD [address] [address] PCP - [facility] Medicare Advantage PCP 07/02/22 Tye Anne MD [address] [address] PCP - General Family Medicine 03/18/23 Aviation Engineer Relationship Specialty Start Date End Date Tye Anne MD [address] [address] [address] PCP - [facility] [employer]age PCP 07/02/22 Tye Anne MD [address] [address] PCP - General Family Medicine 03/18/23 Aviation Engineer Relationship Specialty Start Date End Date Tye Anne MD [address] [address] PCP - [facility] [employer]age PCP 07/02/22 Tye Anne MD [address] [address] PCP - General Family Medicine 03/18/23 Aviation Engineer Relationship Specialty Start Date End Date Tye Anne MD [address] [address] PCP - [facility] [employer]age PCP 07/02/22 Tye Anne MD [address] [address] PCP - General Family Medicine 03/18/23 Aviation Engineer Relationship Specialty Start Date End Date Tye Anne MD [address] [place] [address] PCP - [facility] [employer]age PCP 07/02/22 Tye Anne MD [address] [place] [address] PCP - General Family Medicine 03/18/23 Aviation Engineer Relationship Specialty Start Date End Date Tye Anne MD [address] [address] PCP - [facility] [employer]age PCP 07/02/22 Tye Anne MD [address] [address] PCP - General Family Medicine 03/18/23 Aviation Engineer Relationship Specialty Start Date End Date Tye Anne MD [address] [address] PCP - [facility] [employer]age PCP 07/02/22 Tye Anne MD [address] [address] PCP - General Family Medicine 03/18/23 Aviation Engineer Relationship Specialty Start Date End Date Tye Anne MD [address] [address] PCP - [facility] [employer]age PCP 07/02/22 Tye Anne MD [address] [address] PCP - General Family Medicine 03/18/23 Aviation Engineer Relationship Specialty Start Date End Date Tye Anne MD [address] [place] [address] PCP - [facility] [employer]age PCP 07/02/22 Tye Anne MD [address] [place] [address] PCP - General Family Medicine 03/18/23 Aviation Engineer Relationship Specialty Start Date End Date Tye Anne MD [address] [address] PCP - [facility] [employer]age PCP 07/02/22 Tye Anne MD [address] [address] PCP - General Family Medicine 03/18/23 Aviation Engineer Relationship Specialty Start Date End Date Tye Anne MD [address] [address] PCP - [facility] [employer]age PCP 07/02/22 Tye Anne MD [address] [address] PCP - General Family Medicine 03/18/23 Aviation Engineer Relationship Specialty Start Date End Date Tye Anne MD [address] [place] [phone] PCP - [facility] [employer]vantage PCP 07/02/22 Tye Anne MD [address] [place] [phone] PCP - General Family Medicine 03/18/23 Aviation Engineer Relationship Specialty Start Date End Date Tye Anne MD [address] [place] [address] PCP - General Family Medicine 05/17/15 Elías Hsu MD [address] [place] [phone] Consulting Physician Orthopedic Surgery 06/17/15 Aviation Engineer Relationship Specialty Start Date End Date Tye Anne MD [address] [place] [phone] PCP - [facility] [employer]vantage PCP 07/02/22 Tye Anne MD [address] [address] PCP - General Family Medicine 03/18/23 Aviation Engineer Relationship Specialty Start Date End Date Tye Anne MD [address] [place] [phone] PCP - General Family Medicine 05/17/15 Elías Hsu MD [address] [place] [phone] Consulting Physician Orthopedic Surgery 06/17/15 Aviation Engineer Relationship Specialty Start Date End Date Tye Anne MD [address] [place] [address] PCP - [facility] [employer]age PCP 07/02/22 Tye Anne MD [address] [place] [phone] PCP - General Family Medicine 03/18/23 Aviation Engineer Relationship Specialty Start Date End Date Tye Anne MD [address] [place] [phone] PCP - [facility] [employer]age PCP 07/02/22 Tye Anne MD [address] [address] PCP - General Family Medicine 03/18/23 Aviation Engineer Relationship Specialty Start Date End Date Tye Anne MD [address] [place] [phone] PCP - [facility] [employer]age PCP 07/02/22 Tye Anne MD [address] [address] PCP - General Family Medicine 03/18/23 Aviation Engineer Relationship Specialty Start Date End Date Tye Anne MD [address] [address] PCP - [facility] [employer]age PCP 07/02/22 Tye Anne MD [address] [address] PCP - General Family Medicine 03/18/23 Aviation Engineer Relationship Specialty Start Date End Date Tye Anne MD [address] [facility] [place] [phone] PCP - General Family Medicine 05/17/15 Elías Hsu MD [address] [place] [phone] Consulting Physician Orthopedic Surgery 06/17/15 Aviation Engineer Relationship Specialty Start Date End Date Tye Anne MD [facility] [place] [address] PCP - General Family Medicine 05/17/15 Elías Hsu MD [address] [place] [phone] Consulting Physician Orthopedic Surgery 06/17/15 Aviation Engineer Relationship Specialty Start Date End Date Tye Anne MD [address] [place] [phone] PCP - General Family Medicine 05/17/15 Elías Hsu MD [facility] [place] [phone] Consulting Physician Orthopedic Surgery 06/17/15 Aviation Engineer Relationship Specialty Start Date End Date Tye Anne MD [address] [place] [phone] PCP - General Family Medicine 05/17/15 Elías Hsu MD [facility] [place] [phone] Consulting Physician Orthopedic Surgery 06/17/15 Aviation Engineer Relationship Specialty Start Date End Date Tye Anne MD [address] [address] PCP - General Family Medicine 03/18/23 Tye Anne MD [address] [address] PCP - [facility] [employer]age PCP 07/02/24 Aviation Engineer Relationship Specialty Start Date End Date Tye Anne MD [address] [address] PCP - General Family Medicine 03/18/23 Tye Anne MD [address] [address] PCP - [facility] [employer] PCP 07/02/24 Aviation Engineer Relationship Specialty Start Date End Date Tye Anne MD [address] [place] [address] PCP - General Family Medicine 03/18/23 Tye Anne MD [address] [place] [address] PCP - [facility] [employer]age PCP 07/02/24 Aviation Engineer Relationship Specialty Start Date End Date Tye Anne MD [address] [place] [address] PCP - General Family Medicine 03/18/23 Tye Anne MD [address] [place] [address] PCP - [facility] [employer] PCP 07/02/24 Aviation Engineer Relationship Specialty Start Date End Date Tye Anne MD [address] [place] [address] PCP - General Family Medicine 03/18/23 Tye Anne MD [address] [place] [address] PCP - [facility] [employer] PCP 07/02/24 Aviation Engineer Relationship Specialty Start Date End Date Tye Anne MD [address] [place] [address] PCP - General Family Medicine 03/18/23 Tye Anne MD [address] [place] [address] PCP - [facility] [employer] PCP 07/02/24 Aviation Engineer Relationship Specialty Start Date End Date Tye Anne MD [address] [place] [address] PCP - General Family Medicine 03/18/23 Tye Anne MD [address] [place] [address] PCP - [facility] [employer] PCP 07/02/24 Aviation Engineer Relationship Specialty Start Date End Date Tye Anne MD [address] [place] [address] PCP - General Family Medicine 03/18/23 Tye Anne MD [address] [place] [address] PCP - [facility] [employer] PCP 07/02/24 Aviation Engineer Relationship Specialty Start Date End Date Tye Anne MD [address] [place] [address] PCP - General Family Medicine 03/18/23 Tye Anne MD [address] [place] [address] PCP - [facility] [employer] PCP 07/02/24 Aviation Engineer Relationship Specialty Start Date End Date Tye Anne MD [address] [place] [address] PCP - General Family Medicine 03/18/23 Tye Anne MD [address] [place] [address] PCP - [facility] [employer] PCP 07/02/24 Aviation Engineer Relationship Specialty Start Date End Date Tye Anne MD [address] [place] [address] PCP - General Family Medicine 03/18/23 Tye Anne MD [address] [place] [address] PCP - [facility] [employer] PCP 07/02/24 Aviation Engineer Relationship Specialty Start Date End Date Tye Anne MD [address] [place] [address] PCP - General Family Medicine 03/18/23 Tye Anne MD [address] [place] [address] PCP - [facility] [employer] PCP 07/02/24 Aviation Engineer Relationship Specialty Start Date End Date Tye Anne MD [address] [place] [address] PCP - General Family Medicine 03/18/23 Tye Anne MD [address] [place] [address] PCP - [facility] [employer] PCP 07/02/24 Aviation Engineer Relationship Specialty Start Date End Date Tye Anne MD [address] [place] [address] PCP - General Family Medicine 03/18/23 Tye Anne MD [address] [place] [address] PCP - [facility] [employer] PCP 07/02/24 Aviation Engineer Relationship Specialty Start Date End Date Tye Anne MD [address] [address] PCP - General Family Medicine 03/18/23 Tye Anne MD [address] [place] [address] PCP - [facility] [employer] PCP 07/02/24 Aviation Engineer Relationship Specialty Start Date End Date Tye Anne MD [address] [place] [phone] PCP - General Family Medicine 05/17/15 Elías Hsu MD [address] [place] [phone] Consulting Physician Orthopedic Surgery 06/17/15 Aviation Engineer Relationship Specialty Start Date End Date Tye Anne MD [address] [address] PCP - General Family Medicine 03/18/23 Tye Anne MD [address] [address] PCP - [facility] [employer] PCP 07/02/24 Aviation Engineer Relationship Specialty Start Date End Date Tye Anne MD [address] [address] PCP - General Family Medicine 03/18/23 Tye Anne MD [address] [address] PCP - [facility] [employer] PCP 07/02/24 Aviation Engineer Relationship Specialty Start Date End Date Tye Anne MD [address] [place] [address] PCP - General Family Medicine 05/17/15 Elías Hsu MD [address] [place] [phone] Consulting Physician Orthopedic Surgery 06/17/15 Aviation Engineer Relationship Specialty Start Date End Date Tye Anne MD [address] [address] PCP - General Family Medicine 03/18/23 Tye Anne MD [address] [address] PCP - [facility] [employer] PCP 07/02/24 Team Status: Active Member Role/Relationship Status Dates Dr. Santi Anne MD Primary Care Provider Active Team Status: Inactive Member Role/Relationship Status Dates Dr. Santi Anne MD Primary Care Provider Active Start: March 12, 2025 End: March 12, 2025 Dr. Santi Anne MD Referring Provider Active Start: March 12, 2025 End: March 12, 2025 YUE Lyons Attending Provider Active Start: March 12, 2025 End: March 12, 2025 Aviation Engineer Relationship Specialty Start Date End Date Tye Anne MD [address] [address] PCP - [facility] [employer]vantage PCP 07/02/22 07/01/24 Tye Anne MD [address] [address] PCP - General Family Medicine 03/18/23 Aviation Engineer Relationship Specialty Start Date End Date Tye Anne MD [address] [place] [address] PCP - [facility] [employer]vantage PCP 07/02/22 07/01/24 Tye Anne MD [address] [place] [address] PCP - General Family Medicine 03/18/23 Aviation Engineer Relationship Specialty Start Date End Date Tye Anne MD [address] [place] [address] PCP - General Family Medicine 03/18/23 Tye Anne MD [address] [place] [address] PCP - [facility] [employer]age PCP 07/02/24 Aviation Engineer Relationship Specialty Start Date End Date Tye Anne MD [address] [place] [address] PCP - [facility] [employer]age PCP 07/02/22 07/01/24 Tye Anne MD [address] [place] [address] PCP - General Family Medicine 03/18/23 Aviation Engineer Relationship Specialty Start Date End Date Tye Anne MD [address] [place] [address] PCP - General Family Medicine 03/18/23 Tye Anne MD [address] [place] [address] PCP - [facility] [employer] PCP 07/02/24 Aviation Engineer Relationship Specialty Start Date End Date Tye Anne MD [address] [address] PCP - General Family Medicine 03/18/23 Tye Anne MD [address] [address] PCP - [facility] [employer] PCP 07/02/24 Aviation Engineer Relationship Specialty Start Date End Date Tye Anne MD [address] [address] PCP - General Family Medicine 03/18/23 Tye Anne MD [address] [address] PCP - [facility] [employer] PCP 07/02/24 <item><item><item><item><item><item><item><item> Privacy Markings (unrecogniz ed section and content) Section Author: Gloria Spivey PROHIBITION ON REDISCLOSURE OF CONFIDENTIAL INFORMATION This notice accompanies a disclosure of information concerning a client made to you with the consent of such client. Section Author: Gloria Spivey PROHIBITION ON REDISCLOSURE OF CONFIDENTIAL INFORMATION This notice accompanies a disclosure of information concerning a client made to you with the consent of such client. Section Author: Gloria Spivey PROHIBITION ON REDISCLOSURE OF CONFIDENTIAL INFORMATION This notice accompanies a disclosure of information concerning a client made to you with the consent of such client. Section Author: Gloria Spivey PROHIBITION ON REDISCLOSURE OF CONFIDENTIAL INFORMATION This notice accompanies a disclosure of information concerning a client made to you with the consent of such client. Section Author: Gloria Spivey PROHIBITION ON REDISCLOSURE OF CONFIDENTIAL INFORMATION This notice accompanies a disclosure of information concerning a client made to you with the consent of such client. Section Author: Gloria Spivey PROHIBITION ON REDISCLOSURE OF CONFIDENTIAL INFORMATION This notice accompanies a disclosure of information concerning a client made to you with the consent of such client. Section Author: Gloria Spivey PROHIBITION ON REDISCLOSURE OF CONFIDENTIAL INFORMATION This notice accompanies a disclosure of information concerning a client made to you with the consent of such client. Section Author: Gloria Spivey PROHIBITION ON REDISCLOSURE OF CONFIDENTIAL INFORMATION This notice accompanies a disclosure of information concerning a client made to you with the consent of such client. Scheduled Active and Recently Administ ered Medications (unrecognized section and content) Medication Order 08/11/2024 08/12/2024 08/13/2024 vancomycin (Vancocin) 1,500 mg in dextrose 5% IV 500 mL 1,500 mg (rounded from 1,560 mg = 15 mg/kg 104 kg), intravenous, at 333.3 mL/hr, Administer over 90 Minutes, Once, On Sun08/13/24 at 0845, For 1 dose, Mini-Bag Plus/ADD-[place] bag, Dosing of this medication varies based on severity of illness. Does this patient have sepsis or concern for sepsis (probable or documented infection plus systemic manifestations of infection)? No, Suspected Indication (Select all that apply): Surgical Prophylaxis, Indications: Surgical Prophylaxis 0845 (Due) PRN Medication Order 08/11/2024 08/12/2024 08/13/2024 fentaNYL PF (Sublimaze) injection (CANCELED) As needed, Starting on Sun08/13/24 at 0928, Intraprocedure 0928 (Given - Provid er: Terence Baker RN - Comment: for procedure) iohexol (OMNIPaque) 350 mg iodine/mL solution (CANCELED) As needed, Starting on Sun08/13/24 at 0910, Intraprocedure 0910 (Given - Provid er: Terence Baker RN - Comment: for procedure) lidocaine (Xylocaine) 20 mg/mL (2 %) injection (CANCELED) As needed, Starting on Sun08/13/24 at 0932, Intraprocedure 0932 (Given - Provid er: Aravind Jimenez MD - Comment: for procedure) midazolam (Versed) injection (CANCELED) As needed, Starting on Sun08/13/24 at 0929, Intraprocedure 0929 (Given - Provid er: Terence Baker RN - Comment: for procedure) oxygen (O2) therapy (CANCELED) Continuous PRN, Starting on Sun08/13/24 at 0911, Intraprocedure 0911 (New Bag - Prov ider: Terence Baker RN - Comment: for procedure)1002 (Stopped - Provider: Rocio Valencia RT) Scheduled Medication Order 10/06/2024 10/07/2024 10/08/2024 atorvastatin (Lipitor) tablet 40 mg 40 mg, oral, Nightly, First dose on Sun09/26/24 at 2100, On hold since 09/27/2024 at 1203 until manually unheld 2100 (Not Given - Provider: Miriam Thorne RN - Reason: See Provider Order) 2100 (Not Given - Provider: Miriam Thorne RN - Reason: See Provider Order) 2100 (Dose Auto Held) bisacodyl (Dulcolax) suppository 10 mg 10 mg, rectal, Nightly, First dose on Sun09/30/24 at 2100 0004 (Not Given - Provider: Nayeli Corral RN - Reason: Patient/family refused - Comment: pt having loose stool)2026 (Given - Provider: Miriam Thorne RN) 2030 (Given - Provider: Miriam Thorne RN) 2100 (Due) cetirizine (ZyrTEC) tablet 10 mg 10 mg, oral, Daily, First dose on Sun09/26/24 at 1315, On hold since 09/27/2024 at 1203 until manually unheld 0900 (Not Given - Provider: Melissa Rogers RN - Reason: Other - Comment: per MD order) 0900 (Not Given - Provider: Melissa Rogers RN - Reason: Other - Comment: per MD order) 0900 (Dose Auto Held) empagliflozin (Jardiance) tablet 25 mg 25 mg, oral, Daily, First dose on Sun09/26/24 at 1315, Please hold this med 72 hours prior to an NPO event in duration of 12 hours or more., On hold since 09/27/2024 at 1203 until manually unheld 0900 (Not Given - Provider: Melissa Rogers RN - Reason: Other - Comment: per MD order) 0900 (Not Given - Provider: Melissa Rogers RN - Reason: Other - Comment: per MD order) 0900 (Dose Auto Held) fluconazole (Diflucan) 400 mg in sodium chloride (iso) IV 200 mL(Linked Group 1) 400 mg, intravenous, at 100 mL/hr, Administer over 120 Minutes, Every 24 hours, First dose on Sun09/28/24 at 1400, premix bag, Coverage: Akiko albicans, Infection Site: Abdominal 1431 (New Bag - Provider: Melissa Rogers RN)1637 (Stopped - Provider: Melissa Rogers RN) 1435 (New Bag - Provider: Melissa Rogers RN)1649 (Stopped - Provider: Melissa Rogers RN) 1400 (Due) furosemide (Lasix) tablet 20 mg 20 mg, oral, Daily, First dose on Sun09/26/24 at 1315, On hold since 09/27/2024 at 1203 until manually unheld 0900 (Not Given - Provider: Melissa Rogers RN - Reason: Other - Comment: per MD order) 0900 (Not Given - Provider: Melissa Rogers RN - Reason: Other - Comment: per MD order) 0900 (Dose Auto Held) gabapentin (Neurontin) capsule 1,200 mg 1,200 mg, oral, 3 times daily, First dose on Sun09/26/24 at 1500, Capsules may be opened and sprinkled on food (eg, applesauce, orange juice, pudding, On hold since 09/27/2024 at 1203 until manually unheld 0900 (Not Given - Provider: Melissa Rogers RN - Reason: Other - Comment: per MD order)1500 (Not Given - Provider: Melissa Rogers RN - Reason: Other - Comment: per MD order)2100 (Not Given - Provider: Miriam Thorne RN - Reason: See Provider Order) 0900 (Not Given - Provider: Melissa Rogers RN - Reason: Other - Comment: per MD order)1500 (Not Given - Provider: Melissa Rogers RN - Reason: Other - Comment: per MD order)2100 (Not Given - Provider: Miriam Thorne RN - Reason: See Provider Order) 0900 (Dose Auto Held)1500 (Dose Auto Held)2100 (Dose Auto Held) insulin lispro injection 0-5 Units 0-5 Units, subcutaneous, Every 6 hours, First dose (after last modification) on Sun09/29/24 at 2200, Do not hold when patient is not eating, continue order as scheduled for hyperglycemia management. Insulin Lispro Corrective Scale #1 Hypoglycemia protocol Call LIP unit(s) if Blood Glucose is between 0 - 70 mg/dL 0 unit(s) if Blood glucose is between 71-150 1 unit(s) if Blood glucose is between 151-200 2 unit(s) if Blood glucose is between 201-250 3 unit(s) if Blood glucose is between 251-300 4 unit(s) if Blood glucose is between 301-350 5 unit(s) if Blood glucose is between 351-400 If blood glucose is greater than 400 mg/dL, give max insulin per sliding scale AND then contact provider. 0004 (Not Given - Provider: Nayeli Corral RN - Reason: Order parameters not met)0542 (Not Given - Provider: Nayeli Corral RN - Reason: Order parameters not met)1235 (Given - Provider: Melissa Rogers RN)1803 (Given - Provider: Melissa Rogers RN)2355 (Given - Provider: Miriam Thorne RN) 0724 (Given - Provider: Miriam Thorne RN)1248 (Given - Provider: Melissa Rogers RN)1756 (Not Given - Provider: Melissa Rogers RN - Reason: Order parameters not met - Comment: BGL 150) 0030 (Not Given - Provider: Miriam Thorne RN - Reason: Order parameters not met)0855 (Not Given - Provider: Shirley Hackett RN - Reason: Other)1200 (Due)1800 (Due) lidocaine 4 % patch 1 patch 1 patch, transdermal, Administer over 12 Hours, Daily, First dose on Sun09/26/24 at 1345, Apply to back. Patch will remain on for 12 hours, then removed for [address] patch directly over any surgical incisions or wounds. 0837 (Not Given - Provider: Melissa Rogers RN - Reason: Patient/family refused) 0815 (Not Given - Provider: Melissa Rogers RN - Reason: Patient/family refused) 0905 (Medication Applied - Provider: Shirley Hackett RN)2105 (Due: Medication Removed - Provider: Shirley Hackett RN) melatonin tablet 10 mg 10 mg, oral, Nightly, First dose on Sun09/26/24 at 2100, On hold since Sun09/27/2024 at 1203 until manually unheld 2100 (Not Given - Provider: Miriam Thorne RN - Reason: See Provider Order) 2100 (Not Given - Provider: Miriam Thorne RN - Reason: See Provider Order) 2100 (Dose Auto Held) pantoprazole (Protonix) injection 40 mg 40 mg, intravenous, Daily, First dose on 09/27/24 at 0900, Reconstitute each 40 mg vial with 10 mL NS to make 4 mg/mL solution. 0838 (Given - Provider: Melissa Rogers RN) 0817 (Given - Provider: Melissa Rogers RN) 0904 (Given - Provider: Shirley Hackett RN) piperacillin-tazobactam (Zosyn) 3.375 g in dextrose (iso) IV 50 mL 3.375 g, intravenous, Administer over 0.5 Hours, Every 6 hours, First dose on 09/27/24 at 0615, premix bag, Dosing of this medication varies based on severity of illness. Does this patient have sepsis or concern for sepsis (probable or documented infection plus systemic manifestations of infection)? Yes, Suspected Indication (Select all that apply): Other, Specify: esophageal perf, Type of Therapy: Empiric, Indications: Other 0217 (New Bag - Provider: Nayeli Corral RN)0220 (Stopped - Provider: Nayeli Corral RN - Comment: pt IV infiltrated)0421 (Restarted - Provider: Nayeli Corral RN - Comment: new IV access obtained)0838 (New Bag - Provider: Melissa Rogers RN)0908 (Stopped - Provider: Melissa Rogers RN)1345 (New Bag - Provider: Melissa Rogers RN)1415 (Stopped - Provider: Melissa Rogers RN)2027 (New Bag - Provider: Miriam Thorne RN)2057 (Stopped - Provider: Miriam Thorne RN) 0239 (New Bag - Provider: Miriam Thorne RN)0330 (Stopped - Provider: Miriam Thorne RN)0817 (New Bag - Provider: Melissa Rogers RN)0854 (Stopped - Provider: Melissa Rogers RN)1328 (New Bag - Provider: Melissa Rogers RN)1358 (Stopped - Provider: Melissa Rogers RN)2030 (New Bag - Provider: Miriam Thorne RN)2100 (Stopped - Provider: Miriam Thorne RN) 0250 (New Bag - Provider: Miriam Thorne RN)0320 (Stopped - Provider: Miriam Thorne RN)0904 (New Bag - Provider: Shirley Hackett RN)0956 (Stopped - Provider: Shirley Hackett RN)1400 (Due - Provider: Whit Enrique, PharmD)2000 (Due - Provider: Whit Enrique, PharmD) rivaroxaban (Xarelto) tablet 20 mg 20 mg, j-tube, Daily with evening meal, First dose on 10/04/24 at 1700, Best administered with food or immediately before tube feedings. If ordered via NG or G-tube route, crush and mix with 50 mL water; give within 4 hours of mixing. 1710 (Given - Provider: Melissa Rogers RN) 1701 (Given - Provider: Melissa Rogers RN) 1700 (Due) tamsulosin (Flomax) 24 hr capsule 0.4 mg 0.4 mg, oral, Daily, First dose on Sun09/26/24 at 1315, Give 30 minutes after the same mealtime each day. Capsules should be swallowed whole; do not crush, chew, or open., On hold since 09/27/2024 at 1203 until manually unheld 0900 (Not Given - Provider: Melissa Rogers RN - Reason: Other - Comment: per MD order) 0900 (Not Given - Provider: Melissa Rogers RN - Reason: Other - Comment: per MD order) 0900 (Dose Auto Held) PRN Medication Order 10/06/2024 10/07/2024 10/08/2024 acetaminophen (Tylenol) oral liquid 650 mg 650 mg, j-tube, Every 6 hours PRN, pain mild (1-3), first line, Starting on Sun10/08/24 at 1000 dextrose 50 % injection 12.5 g 12.5 g, intravenous, Every 15 min PRN, For blood glucose 41 to 70 mg/dL, Starting on Sun09/26/24 at 1456, May repeat until blood glucose level reaches 100 mg/dL or greater. Push 2 - 3 mL/minute if patient has secure IV access. dextrose 50 % injection 25 g 25 g, intravenous, Every 15 min PRN, For blood glucose less than or equal to 40 mg/dL, Starting on Sun09/26/24 at 1456, May repeat until blood glucose level reaches 100 mg/dL or greater. Push 2 - 3 mL/minute if patient has secure IV access. diclofenac sodium (Voltaren) 1 % gel 4 g 4 g, Topical, 4 times daily PRN, pain mild (1-3), first line, pain mild (1-3), second line, Starting on Sun09/26/24 at 1416, Apply to back glucagon (Glucagen) injection 1 mg 1 mg, intramuscular, Every 15 min PRN, blood glucose less than or equal to 40 mg/dL - see comments, For blood glucose less than or equal to 40 mg/dL and no IV access, Starting on Sun09/26/24 at 1456, Give until blood glucose is 100 mg/dL or greater. If patient DOES NOT HAVE secure IV access & patient is unconscious, NPO or is unable to eat or drink. glucagon (Glucagen) injection 1 mg 1 mg, intramuscular, Every 15 min PRN, blood glucose 41 to 70 mg/dL - see comments, For blood glucose 41 to 70 mg/dL and no IV access, Starting on 09/28/24 at 1342, Give until blood glucose is 100 mg/dL or greater. If patient DOES NOT HAVE secure IV access & patient is unconscious, NPO or is unable to eat or drink. hydrALAZINE (Apresoline) injection 10 mg 10 mg, intravenous, Every 8 hours PRN, For SBP>180, Starting on 09/29/24 at 1130 morphine injection 4 mg 4 mg, intravenous, Every 6 hours PRN, pain severe (7-10), first line, Starting on Sun09/30/24 at 1931 0730 (Given - Provider: Miriam Thorne, RN)2037 (Given - Provider: Miriam Thorne, ISMAEL) trimethobenzamide (Tigan) injection 200 mg 200 mg, intramuscular, Every 6 hours PRN, nausea/vomiting, first line, Starting on 09/27/24 at 1634, Inject deep into upper outer quadrant of gluteal muscle. Do not give IV. Linked Groups Order Group 1: fluconazole (Diflucan) 800 mg in sodium chloride (iso) IV 400 mL (COMPLETED) 800 mg, intravenous, at 200 mL/hr, Administer over 120 Minutes, Once, On 09/27/24 at 1400, For 1 dose, Administer two 400mg premix bags for total dose of 800mg premix bag, Coverage: Akiko albicans, Infection Site: Abdominal Followed by fluconazole (Diflucan) 400 mg in sodium chloride (iso) IV 200 mLJump to med 400 mg, intravenous, at 100 mL/hr, Administer over 120 Minutes, Every 24 hours, First dose on Sun09/28/24 at 1400, premix bag, Coverage: Akiko albicans, Infection Site: Abdominal Scheduled Medication Order 12/15/2024 12/16/2024 12/17/2024 sodium chloride 0.9 % bolus 1,000 mL (COMPLETED) 1,000 mL, intravenous, at 999 mL/hr, Administer over 1 Hours, Once, On Sun12/17/24 at 1435, For 1 dose 1438 (New Bag - Prov ider: Shira Cisneros RN)1545 (Stopped - Provider: Anabella Petersen RN) Goals (unrecognized section and content) Goals may be documented in a n alternate section FOR RECORDS PERTAINING TO PATIENTS WHO ARE OR HAVE BEEN ENROLLED IN A CHEMICAL DEPENDENCY/SUBSTANCEABUSE PROGRAM, SOME INFORMATION MAY BE OMITTED. This clinical summary was aggregated from multiple sources. Caution should be exercised in using it in the provision of clinical care. This summary normalizes information from multiple sources, and as a consequence, information in this document may materially change the coding, format and clinical context of patient data. In addition, data may be omitted in some cases. CLINICAL DECISIONS SHOULD BE BASED ON THE PRIMARY CLINICAL RECORDS. [email or web address] provides no warranty or guarantee of the accuracy or completeness of information in this document.
--- NOTE | 2025-06-26 13:04 | ST.MBS ---
Modified Barium Swallow Patient Information Study Date: 06/26/25 Study Time: 13:05 Direct Billable Minutes: 88 Total Minutes procedure & reportin Diagnosis: Dysphagia R13.12 Referring Physician: Dione Alatorre Reason for Referral: Assess swallow function, assess risk for aspiration, and determine recommendations for any necessary dysphagia interventions. Medical History: 03/12/2025 Patient was seen by YUE Lyons, at [facility] for complaints of hoarseness and dysphagia. Per Gastroenterology visit, pt had hx of ?CT chest with IV and PO contrast demonstrating a perforation at the posterior aspect of the GEJ concerning for esophageal perforation/injury. He underwent EGD with esophageal stent placement 150 x 23 distal end at 40cm and PEG-J tube placement on 09/27/2024. He then underwent EGD with removal of esophageal stent and removal of peg tube. Contrast with fluoroscopy did not reveal any extravasation of contrast in the peritoneum.? He was recommended for ENT referral and MBSS. Patient recently attended OP [facility] at from 03/26/2025-05/18/2025 for voice therapy to address mild dysphonia. Patient reports having his nose/throat scoped in the past w/ no significant findings, but pt was unsure about the timeline. DISABILITY REPRESENTATIVE recommended following up w/ ENT consult as recommended by GI. Patient reports swallowing difficulty w/ food and pills ~1X/week w/ sensation of them becoming caught in his throat, needing a lot of water to wash down. He denied difficulty swallowing liquids. He avoids eating salad. Medical History Neuropathy Heart failure Heart disease Cataracts, both eyes Seasonal allergies Non-smoker History of pacemaker Diabetes mellitus GERD (gastroesophageal reflux disease) Kidney stone BPH (benign prostatic hyperplasia) Type 2 diabetes mellitus with hyperglycemia Obstructive sleep apnea Hyperlipidemia, unspecified Essential (primary) hypertension HFrEF (heart failure with reduced ejection fraction) Sick sinus syndrome Atrial fibrillation Pneumomediastinum Esophageal perforation Debility Surgical History Hx of detached retina repair History of knee replacement procedure of left knee History of back surgery History of electrophysiologic study History of exam under anesthesia with epidural steroid injection Status post biventricular cardiac pacemaker insertion Current Diet Ordered: Regular textures / Thin liquids Dentition: Natural Teeth Penetration-Aspiration Scale Penetration-Aspiration Scale: OBJECTIVE ASSESSMENT OF SWALLOW FUNCTION (QUANTITATIVE ? PER TRIAL): PENETRATION / ASPIRATION SCALE (BRUCE): 1 = does not enter airway 2 = enters airway/above vocal folds/ejected 3 = enters airway/above vocal folds/not ejected 4 = enters airway/contacts vocal folds/ejected 5 = enters airway/contacts vocal folds/not ejected 6 = enters airway/below vocal folds/ejected 7 = enters airway/below vocal folds/not ejected despite effort 8 = enters airway/below vocal folds/no effort VIDEOFLOROSCOPIC SCALE SCORE (BRUCE): Grade I = aspiration of material that has penetrated into the laryngeal vestibule, intact cough reflex Grade II = aspiration < 10 % of the bolus, intact cough reflex Grade III = aspiration of < 10 % of the bolus, reduced cough reflex or aspiration of > 10 % of the bolus, intact cough reflex Grade IV = aspiration of > 10 % of the bolus, reduced cough reflex Penetration-Aspiration Scale Score Thin Liquid via teaspoon: Result: 1= does not enter airway Thin Liquid via teaspoon Trial 2: Result: 1= does not enter airway Thin Liquid via large single sip: cup: Result: 1= does not enter airway [place] Thick Liquid via small single sip: cup: Result: 1= does not enter airway Pudding via teaspoon: Result: 1= does not enter airway Comment: Esophageal screen - Moderate-maximal retention in the lower esophagus w/ retrograde flow to the middle esophagus. Thin Liquid via single sip: straw: Result: 1= does not enter airway Comment: Esophageal screen - Liquid wash was mostly effective in clearing pudding barium through the LES. Minimal residues remained in the esophagus after liquid wash. 1/2 Cookie: Result: 1= does not enter airway Thin Liquid via sequential sips:straw: Result: 1= does not enter airway BariumTablet w/ water: Result: 1= does not enter airway Comment: Esophageal screen - Brief retention of barium tablet in the upper esophagus, which fully cleared through the remainder of the esophagus w/ liquid washes. Oral Phase Bolus Preparation/Mastication: Timely and efficient chewing and mashing Oral Residue: Residue collection on oral structures Pharyngeal Phase Laryngeal Elevation: Comp. Superior move thyroid cart w/comp. apprx arytenoid cart-epig pet Anterior Hyoid Excursion: Partial anterior movement Epiglottic Movement: Complete inversion Laryngeal Vestibule Closure at Height of Swallow: Complete; no air/contrast in laryngeal vestibule Diagnosis/Impression Diagnosis: Esophageal dysphagia R13.14; Oropharyngeal swallow function grossly WNL .: Image 1. Lateral view from this MBSS revealing an anatomical variation circled in red. The variation appeared to move/elevate w/ the patient's swallow. DISABILITY REPRESENTATIVE sent this report and images to radiologist for further review. While no A-P view was taken during this test, a similar anatomical variation was found upon review of a barium esophagram on 10/10/2024. See Image 2 below. Image 2. R sided anatomical variation from barium esophagram on 10/10/2024, similar to anatomical variation found during this MBSS. MBS Impressions: The oropharyngeal swallow function is grossly WNL as compared to same age peers. The esophageal phase is primarily marked by... -Small collection of retention of barium in the upper esophagus throughout the evaluation. -Retention of majority of pudding bolus in the lower esophagus w/ retrograde flow to the middle esophagus, which mostly cleared when provided thin liquid wash. -Brief retention of barium tablet in the upper esophagus; however, the tablet fully cleared as the patient washed w/ water. Recommendations Diet: Regular Textures and Thin Liquids Comment: Medications whole in applesauce/yogurt/pudding Compensatory Strategies: Small Bites, Small Sips, Slow Rate, Alternate bites/solids and sips/liquids (Take a sip after every 1-2 bites), Sitting upright and Remain sitting upright for 30 minutes after PO intake Recommend Repeat Modified Barium Swallow: No Need for Skilled Speech Therapy Services: No Recommended Referrals: GI Consult (Please follow w/ OP GI for management of esophageal dysphagia) and ENT Consult (Recommend ENT consult for concerns for vocal changes as recommended by Dione Alatorre w/ [facility]) Status Active ST Patient: Active Contact Information [facility] Speech Therapy:: Sole Mcadams M.A. [facility]-DISABILITY REPRESENTATIVE Speech-Language Pathologist [place] [id number] [place] [address] [phone]
== END | disposition home or self-care (01) ==
LOC: RAD 12:36
PROVIDERS: PCP Family Medicine; Referring Provider Nurse Practitioner Acute Care; Visit Provider Nurse Practitioner Acute Care
DX: R13.10 Dysphagia, unspecified (principal); R49.0 Dysphonia
CPT/HCPCS: 74230; 92611